=== PATIENT | female | born 1955 | race American Indian/Alaskan Native ===

== ENCOUNTER 2017-03-16 12:36 | Inpatient (IN) | payer MEDICARE ==
[2017-03-16 13:23] LABS: Eosinophils % (Auto) 13.9 % (0.0-4.3); Hematocrit 35.2 % (30.3-42.9); Hemoglobin 10.9 gm/dl (10.1-14.3); Mean Corpuscular HGB Conc 31 % (30-34); Mean Corpuscular Hemoglobin 29 pg (28-32); Mean Corpuscular Volume 92 fl (79-97); Platelet Count 598 K/mm3 (140-440); Red Blood Count 3.83 M/mm3 (3.65-5.03); Red Cell Distribution Width 15.5 % (13.2-15.2); White Blood Count 15.1 K/mm3 (4.5-11.0)
[2017-03-16 13:42] LABS: Anion Gap 14 mmol/L; Blood Urea Nitrogen 8 mg/dL (7-17); Calcium 8.9 mg/dL (8.4-10.2); Carbon Dioxide 34 mmol/L (22-30); Chloride 92.8 mmol/L (98-107); Glucose 154 mg/dL (65-100); Potassium 3.8 mmol/L (3.6-5.0); Sodium 137 mmol/L (137-145)
[2017-03-16 15:20] LABS: ISTAT Base Excess 13; ISTAT HCO3 38.9; ISTAT PCO2 78.3 (35-45); ISTAT PH 7.305 (7.35-7.45); ISTAT PO2 115 (80-105); ISTAT SO2 98; ISTAT TCO2 41
[2017-03-16] MEDS ORDERED: TYLENOL PO PRN ×3 (15:55→15:58)
[2017-03-16] MEDS ORDERED: DULCOLAX PR PRN ×2 (15:56→15:58)
[2017-03-16] MEDS ORDERED: ZOFRAN IV PRN ×2 (15:56→15:58)
[2017-03-16] MEDS ORDERED: MILK OF MAGNESIA PO PRN ×2 (15:56→15:58)
--- NOTE | 2017-03-16 15:56 | History and Physical Report ---
History of Present Illness Date of examination: 03/16/17 Date of admission: 03/16/17 Chief complaint: CC Increasing SOB for 1 day History of present illness: 61 y/o female with hx of end stage Lung disease comes in for increasing SOB of 1 day duration.Cough productive of mucoid sputum. No fever or Chills.No recent travel.No exacerbating factors.Not responding to Home nebulizer treatments. Past History Past Medical History: COPD, GERD, hypertension Past Surgical History: Other Social history: lives with family, smoking Family history: hypertension Medications and Allergies Allergies Allergy/AdvReac Type Severity Reaction Status Date / Time No Known Allergies Allergy Verified 05/23/15 12:02 Home Medications Medication Instructions Recorded Confirmed Last Taken Type Acetaminophen [Acetaminophen TAB] 650 mg PO Q4H PRN #30 tablet 12/24/1603/14/17 08:00 Rx Famotidine [Pepcid] 20 mg PO BID #60 tablet 12/24/16 03/16/17 03/16/17 08:00 Rx Hydrochlorothiazide [HCTZ] 12.5 mg PO QDAY #30 tablet 12/24/16 03/16/17 08:00 Rx Ipratropium/Albuterol Sulfate 1 ampul IH TIDRT #30 ampul.neb 12/24/16 03/16/17 03/16/17 08:00 Rx [DUONEB *Not for PRN Use*] Levofloxacin [Levaquin TAB] 750 mg PO Q24HR #2 day 12/24/16 03/16/17 03/16/17 08 :00 Rx Lisinopril [Zestril] 40 mg PO QDAY #30 12/24/16 03/16/17 03/16/17 08:00 Rx predniSONE [Deltasone] 1 dose PO QDAY #1 mo 12/24/16 03/16/17 03/16/17 08:00 Rx Review of Systems All systems: negative Constitutional: no weight loss, no weight gain, no fever, no chills Ears, nose, mouth and throat: no ear pain, no ear discharge, no tinnitis, no decreased hearing, no swelling in mouth, no swelling in throat Breasts: deferred Cardiovascular: shortness of breath, no chest pain, no orthopnea, no palpitations, no rapid/irregular heart beat, no edema, no syncope, no lightheadedness Respiratory: cough, cough with sputum, excessive sputum, shortness of breath, dyspnea on exertion, congestion, wheezing Gastrointestinal: no abdominal pain, no nausea, no vomiting, no diarrhea Genitourinary Female: no dysuria, no urinary frequency, no urgency, no stress incontinence Menstruation: ammenorrhea Rectal: no pain Musculoskeletal: no neck stiffness, no neck pain, no shooting arm pain, no arm numbness/tingling Integumentary: no rash, no pruritis, no redness, no sores, no wounds, no jaundice, no boils, no blisters Neurological: no head injury, no transient paralysis, no paralysis, no weakness , no parathesias, no seizures, no syncope Psychiatric: no anxiety, no memory loss, no change in sleep habits, no sleep disturbances Endocrine: no cold intolerance, no heat intolerance, no polyphagia, no excessive thirst, no polydipsia, no polyuria, no nocturia Hematologic/Lymphatic: no easy bruising, no easy bleeding Allergic/Immunologic: no urticaria, no allergic rhinitis, no wheezing Exam - Physical Exam Narrative exam: On Bipap and in severe distress - Constitutional Vitals: Temp Pulse Resp BP Pulse Ox 98.1 F 89 25 H 121/60 95 03/16/17 12:45 03/16/17 15:43 03/16/17 15:43 03/16/17 15:43 03/16/17 15:43 General appearance: Present: severe distress - Respiratory Respiratory: bilateral: diminished, rhonchi - Cardiovascular Heart rate: 100 Rhythm: regular - Extremities Extremities: no ischemia, pulses intact Peripheral Pulses: within normal limits - Abdominal General gastrointestinal: Present: soft, non-tender, non-distended Female genitourinary: Present: deferred - Rectal Rectal Exam: deferred - Integumentary Integumentary: Present: clear, warm, dry - Musculoskeletal Musculoskeletal: gait normal, strength equal bilaterally - Psychiatric Psychiatric: appropriate mood/affect, intact judgment & insight, memory intact, cooperative - Neurologic Neurologic: CNII-XII intact, moves all extremities, gait normal - Allied Health Allied health notes reviewed: nursing, case management Results - Labs CBC & Chem 7: 03/17/17 06:44 03/16/17 13:05 Labs: Laboratory Last Values WBC 15.1 K/mm3 (4.5-11.0) H 03/16/17 13:05 RBC 3.83 M/mm3 (3.65-5.03) 03/16/17 13:05 Hgb 10.9 gm/dl (10.1-14.3) 03/16/17 13:05 Hct 35.2 % (30.3-42.9) 03/16/17 13:05 MCV 92 fl (79-97) 03/16/17 13:05 MCH 29 pg (28-32) 03/16/17 13:05 MCHC 31 % (30-34) 03/16/17 13:05 RDW 15.5 % (13.2-15.2) H 03/16/17 13:05 Plt Count 598 K/mm3 (140-440) H 03/16/17 13:05 Lymph % (Auto) 12.1 % (13.4-35.0) L 03/16/17 13:05 [place] % (Auto) 5.6 % (0.0-7.3) 03/16/17 13:05 Eos % (Auto) 13.9 % (0.0-4.3) H 03/16/17 13:05 Baso % (Auto) 1.0 % (0.0-1.8) 03/16/17 13:05 Lymph # 1.8 K/mm3 (1.2-5.4) 03/16/17 13:05 [place] # 0.8 K/mm3 (0.0-0.8) 03/16/17 13:05 Eos # 2.1 K/mm3 (0.0-0.4) H 03/16/17 13:05 Baso # 0.2 K/mm3 (0.0-0.1) H 03/16/17 13:05 Seg Neutrophils % 67.4 % (40.0-70.0) 03/16/17 13:05 Seg Neutrophils # 10.1 K/mm3 (1.8-7.7) H 03/16/17 13:05 POC ABG pH 7.305 (7.35-7.45) L 03/16/17 15:06 POC ABG pCO2 78.3 (35-45) H 03/16/17 15:06 POC ABG pO2 115 (80-105) H 03/16/17 15:06 POC ABG HCO3 38.9 03/16/17 15:06 POC ABG Total CO2 41 03/16/17 15:06 POC ABG O2 Sat 98 03/16/17 15:06 POC ABG Base Excess 13 03/16/17 15:06 FiO2 2 % 03/16/17 15:06 Sodium 137 mmol/L (137-145) 03/16/17 13:05 Potassium 3.8 mmol/L (3.6-5.0) 03/16/17 13:05 Chloride 92.8 mmol/L (98-107) L 03/16/17 13:05 Carbon Dioxide 34 mmol/L (22-30) H 03/16/17 13:05 Anion Gap 14 mmol/L 03/16/17 13:05 BUN 8 mg/dL (7-17) 03/16/17 13:05 Creatinine 0.5 mg/dL (0.7-1.2) L 03/16/17 13:05 Estimated GFR > 60 ml/min 03/16/17 13:05 BUN/Creatinine Ratio 16.00 % 03/16/17 13:05 Glucose 154 mg/dL (65-100) H 03/16/17 13:05 Calcium 8.9 mg/dL (8.4-10.2) 03/16/17 13:05 Troponin T < 0.010 ng/mL (0.00-0.029) 03/16/17 13:05 Short CBC 03/16/17 03/17/17 Range/Units 13:05 06:44 WBC 15.1 H 11.0 (4.5-11.0) K/mm3 Hgb 10.9 11.8 (10.1-14.3) gm/dl Hct 35.2 36.5 (30.3-42.9) % Plt Count 598 H 428 (140-440) K/mm3 BMP 03/16/17 13:05 Sodium 137 Potassium 3.8 Chloride 92.8 L Carbon Dioxide 34 H BUN 8 Creatinine 0.5 L Glucose 154 H Calcium 8.9 Cardiac Enzymes 03/16/17 Range/Units 13:05 Troponin T < 0.010 (0.00-0.029) ng/mL - Imaging and Cardiology EKG: report reviewed Chest x-ray: report reviewed Assessment and Plan Assessment and plan: The high probability of a clinically significant, sudden or life threatening deterioration of the [hematology, respiratory] system(s) required my full and direct attention, intervention and personal management. The aggregate critical care time was [35] minutes. This time is in addition to time spent performing reported procedures but includes the following: [x] Data Review and interpretation [x] Patient assessment and monitoring of vital signs [x] Documentation [x] Medication orders and management Advance Directives: Yes (Full code) VTE prophylaxis?: Chemical Plan of care discussed with patient/family: Yes - Patient Problems (1) Acute hypercapnic respiratory failure Current Visit: Yes Status: Acute Plan to address problem: patient on Bipap and if necessary to intubate. IV steroids abx and Duonebs ordered. Prognosis guarded.Patient has ESLD. (2) COPD exacerbation Current Visit: No Status: Acute Plan to address problem: As Above (3) Hypertension Current Visit: Yes Status: Chronic Qualifiers: Hypertension type: essential hypertension Qualified Code(s): I10 - Essential (primary) hypertension Plan to address problem: Cont lisinopril (4) GERD (gastroesophageal reflux disease) Current Visit: Yes Status: Chronic Qualifiers: Esophagitis presence: without esophagitis Qualified Code(s): K21.9 - Gastro -esophageal reflux disease without esophagitis Plan to address problem: Cont PPI's (5) DVT prophylaxis Current Visit: Yes Status: Acute Plan to address problem: On Lovenox
[2017-03-16] MEDS ORDERED: PERCOCET 5/325 PO PRN (15:58)
[2017-03-16] MEDS ORDERED: DUONEB *Not for PRN Use IH (16:00)
[2017-03-16] MEDS ORDERED: PROVENTIL IH PRN (16:06)
[2017-03-16] MEDS: DUONEB *Not for PRN Use IH SCH ×2 (17:16→19:18)
[2017-03-16] MEDS ORDERED: ZOSYN/NS 4.5GM/100ML 4.5 GM/100 ML VIAL IV ONE (18:28)
[2017-03-16] MEDS: ZESTRIL PO SCH (18:29)
[2017-03-16] MEDS: ZOSYN/NS 4.5GM/100ML 4.5 GM/100 ML VIAL IV SCH ×2 (18:30→22:26)
--- NOTE | 2017-03-16 19:00 | Emergency Department Report ---
ED Shortness of Breath HPI - General Chief Complaint: Dyspnea/Respdistress Stated Complaint: RESP DISTRESS Time Seen by Provider: 03/16/17 13:38 Source: patient Mode of arrival: Stretcher Limitations: No Limitations - History of Present Illness Initial Comments: This patient was appropriately treated with nebs and placed on BiPAP while I was occupied with another patient. When I entered the room the patient was in no distress tolerating BiPAP well. She is able to tell me that she has been on BiPAP here during her hospitalization for 2 days in November. She has a history of end-stage COPD. She denied chest pain. 3 was somewhat limited but she had no other complaints. She is on home O2 and nebs treatments. MD Complaint: shortness of breath -: hour(s) Known History Of: COPD Context: other (end-stage COPD) Associated Symptoms: denies other symptoms - Related Data Previous Rx's Medication Instructions Recorded Last Taken Type Acetaminophen [Acetaminophen TAB] 650 mg PO Q4H PRN #30 tablet 12/24/16 Unknown Rx Famotidine [Pepcid] 20 mg PO BID #60 tablet 12/24/16 Unknown Rx Hydrochlorothiazide [HCTZ] 12.5 mg PO QDAY #30 tablet 12/24/16 Unknown Rx Ipratropium/Albuterol Sulfate 1 ampul IH TIDRT #30 ampul.neb 12/24/16 Unknown Rx [DUONEB *Not for PRN Use*] Levofloxacin [Levaquin TAB] 750 mg PO Q24HR #2 day 12/24/16 Unknown Rx Lisinopril [Zestril] 40 mg PO QDAY #30 12/24/16 Unknown Rx predniSONE [Deltasone] 1 dose PO QDAY #1 mo 12/24/16 Unknown Rx Allergies Allergy/AdvReac Type Severity Reaction Status Date / Time No Known Allergies Allergy Verified 05/23/15 12:02 ED Review of Systems ROS: Stated complaint: RESP DISTRESS Other details as noted in HPI Comment: All other systems reviewed and negative ED Past Medical Hx - Past Medical History Previous Medical History?: Yes Hx Hypertension: Yes Hx Congestive Heart Failure: No Hx Diabetes: No Hx Arthritis: Yes Hx Asthma: Yes Hx COPD: Yes Hx Tuberculosis: Yes Hx HIV: No Additional medical history: HIGH CHOLESTEROL. Home O2 - Surgical History Past Surgical History?: Yes Additional Surgical History: HYSTERECTOMY - Social History Smoking Status: Former Smoker Substance Use Type: None - Medications Home Medications: Home Medications Medication Instructions Recorded Confirmed Last Taken Type Acetaminophen [Acetaminophen TAB] 650 mg PO Q4H PRN #30 tablet 12/24/16 Unknown Rx Famotidine [Pepcid] 20 mg PO BID #60 tablet 12/24/16 Unknown Rx Hydrochlorothiazide [HCTZ] 12.5 mg PO QDAY #30 tablet 12/24/16 Unknown Rx Ipratropium/Albuterol Sulfate 1 ampul IH TIDRT #30 ampul.neb 12/24/16 Unknown Rx [DUONEB *Not for PRN Use*] Levofloxacin [Levaquin TAB] 750 mg PO Q24HR #2 day 12/24/16 Unknown Rx Lisinopril [Zestril] 40 mg PO QDAY #30 12/24/16 12/19/16 Unknown Rx predniSONE [Deltasone] 1 dose PO QDAY #1 mo 12/24/16 Unknown Rx ED Physical Exam - General Limitations: Other (BiPAP in progress) General appearance: alert - Head Head exam: Present: atraumatic - Eye Eye exam: Absent: scleral icterus - ENT ENT exam: Present: mucous membranes moist - Neck Neck exam: Present: normal inspection. Absent: tenderness, meningismus - Respiratory Respiratory exam: Present: rhonchi (mild scattered) - Cardiovascular Cardiovascular Exam: Present: regular rate, normal rhythm. Absent: systolic murmur, diastolic murmur, rubs, gallop - GI/Abdominal GI/Abdominal exam: Present: soft, normal bowel sounds. Absent: distended, tenderness, guarding, rebound, rigid - Extremities Exam Extremities exam: Present: normal inspection - Back Exam Back exam: Present: normal inspection - Neurological Exam Neurological exam: Present: alert, oriented X3. Absent: CN II-XII intact, motor sensory deficit - Psychiatric Psychiatric exam: Present: normal affect, normal mood - Skin Skin exam: Present: warm, dry, intact, normal color. Absent: rash ED Course Vital Signs 03/16/17 03/16/17 03/16/17 12:45 12:51 13:00 Temperature 98.1 F Pulse Rate 98 H 98 H 90 Pulse Rate [ Anterior Bilateral Throughout] Respiratory 21 16 18 Rate Respiratory Rate [Anterior Bilateral Throughout] Blood Pressure 136/73 138/60 O2 Sat by Pulse 97 93 Oximetry 03/16/17 03/16/17 03/16/17 13:15 13:20 13:24 Temperature Pulse Rate 85 87 86 Pulse Rate [ Anterior Bilateral Throughout] Respiratory 22 26 H Rate Respiratory Rate [Anterior Bilateral Throughout] Blood Pressure 138/60 138/60 O2 Sat by Pulse 98 94 Oximetry 03/16/17 03/16/17 03/16/17 13:31 13:45 14:01 Temperature Pulse Rate 94 H 93 H 89 Pulse Rate [ Anterior Bilateral Throughout] Respiratory 16 15 16 Rate Respiratory Rate [Anterior Bilateral Throughout] Blood Pressure 138/60 138/60 118/59 O2 Sat by Pulse 95 92 89 Oximetry 03/16/17 03/16/17 03/16/17 14:15 14:31 14:45 Temperature Pulse Rate 88 91 H 77 Pulse Rate [ Anterior Bilateral Throughout] Respiratory 20 20 25 H Rate Respiratory Rate [Anterior Bilateral Throughout] Blood Pressure 118/59 118/59 118/59 O2 Sat by Pulse 95 99 99 Oximetry 03/16/17 03/16/17 03/16/17 15:00 15:15 15:31 Temperature Pulse Rate 89 83 86 Pulse Rate [ Anterior Bilateral Throughout] Respiratory 25 H 27 H 22 Rate Respiratory Rate [Anterior Bilateral Throughout] Blood Pressure 121/60 121/60 121/60 O2 Sat by Pulse 95 99 94 Oximetry 03/16/17 03/16/17 03/16/17 15:43 17:13 17:37 Temperature Pulse Rate 89 91 H Pulse Rate [ 93 H 93 H Anterior Bilateral Throughout] Respiratory 25 H 24 Rate Respiratory 24 24 Rate [Anterior Bilateral Throughout] Blood Pressure 121/60 134/82 O2 Sat by Pulse 95 90 Oximetry 03/16/17 18:29 Temperature Pulse Rate 98 H Pulse Rate [ Anterior Bilateral Throughout] Respiratory Rate Respiratory Rate [Anterior Bilateral Throughout] Blood Pressure 134/67 O2 Sat by Pulse Oximetry - Reevaluation(s) Reevaluation #1: Patient appeared quite comfortable on BiPAP. She was placed on 2 L and a blood gas was obtained to determine her degree of hypercapnea. She was substantially hypercapnic and replaced on BiPAP shortly thereafter. This was well tolerated. She is admitted to the intensive care unit by of the hospitalist service for further care and evaluation. 03/16/17 18:58 Reevaluation #2: Patient doing well and admitted to the ICU pending transfer. 03/16/17 19:02 ED Medical Decision Making - Lab Data Result diagrams: 03/16/17 13:05 03/16/17 13:05 Laboratory Results - last 24 hr 03/16/17 03/16/17 03/16/17 13:05 13:05 15:06 WBC 15.1 H RBC 3.83 Hgb 10.9 Hct 35.2 MCV 92 MCH 29 MCHC 31 RDW 15.5 H Plt Count 598 H Lymph % (Auto) 12.1 L [place] % (Auto) 5.6 Eos % (Auto) 13.9 H Baso % (Auto) 1.0 Lymph # 1.8 [place] # 0.8 Eos # 2.1 H Baso # 0.2 H Seg Neutrophils % 67.4 Seg Neutrophils # 10.1 H POC ABG pH 7.305 L POC ABG pCO2 78.3 H POC ABG pO2 115 H POC ABG HCO3 38.9 POC ABG Total CO2 41 POC ABG O2 Sat 98 POC ABG Base Excess 13 FiO2 2 Sodium 137 Potassium 3.8 Chloride 92.8 L Carbon Dioxide 34 H Anion Gap 14 BUN 8 Creatinine 0.5 L Estimated GFR > 60 BUN/Creatinine Ratio 16.00 Glucose 154 H Calcium 8.9 Troponin T < 0.010 - EKG Data -: EKG Interpreted by Me EKG shows normal: sinus rhythm, axis, intervals, QRS complexes, ST-T waves Rate: normal - EKG Data Interpretation: LVH (by voltage criteria) - Radiology Data interpreted by me: Hyperinflation COPD no acute findings Critical Care Time: Yes Critical care time in (mins) excluding proc time.: 40 Critical care attestation.: If time is entered above; I have spent that time in minutes in the direct care of this critically ill patient, excluding procedure time. ED Disposition Clinical Impression: Acute hypercapnic respiratory failure, End stage COPD Disposition: OP ADMIT IP TO THIS HOSP Is pt being admited?: Yes Does the pt Need Aspirin: Yes Time of Disposition: 19:02
[2017-03-16] MEDS ORDERED: PEPCID PO SCH (22:00)
[2017-03-16] MEDS: BABY ASPIRIN PO SCH (22:25)
[2017-03-17] MEDS: ZOSYN/NS 4.5GM/100ML 4.5 GM/100 ML VIAL IV SCH ×2 (06:29→13:14)
[2017-03-17 07:11] LABS: Hematocrit 36.5 % (30.3-42.9); Hemoglobin 11.8 gm/dl (10.1-14.3); Mean Corpuscular HGB Conc 32 % (30-34); Mean Corpuscular Hemoglobin 29 pg (28-32); Mean Corpuscular Volume 90 fl (79-97); Red Blood Count 4.05 M/mm3 (3.65-5.03); Red Cell Distribution Width 15.4 % (13.2-15.2)
[2017-03-17 07:19] LABS: Platelet Count 428 K/mm3 (140-440)
[2017-03-17] MEDS: DUONEB *Not for PRN Use IH SCH ×6 (07:59→21:59)
--- NOTE | 2017-03-17 08:14 | XRay Report ---
PORTABLE CHEST INDICATION: Shortness of breath. COMPARISON: 12/21/2016 FINDINGS: Portable, frontal chest radiograph demonstrates new bibasilar haziness/pleural fluid, right more than left. Otherwise stable somewhat hyperexpanded lungs/COPD. Stable cardiomediastinal silhouette. Pulmonary arterial hypertension possible. Aortic knob calcifications. No CHF. EKG leads. Intact bones. CONCLUSION: New small bibasilar pleural effusions and various other findings, as above. Please correlate. Thank you for the opportunity to participate in this patient's care.
[2017-03-17 08:38] LABS: Alanine Aminotransferase 8 units/L (7-56); Albumin 3.8 g/dL (3.9-5); Albumin/Globulin Ratio 1.3 %; Alkaline Phosphatase 41 units/L (35-129); Anion Gap 20 mmol/L; Blood Urea Nitrogen 12 mg/dL (7-17); Calcium 9.4 mg/dL (8.4-10.2); Carbon Dioxide 29 mmol/L (22-30); Chloride 94.6 mmol/L (98-107); Glucose 120 mg/dL (65-100); Potassium 5.6 mmol/L (3.6-5.0); Sodium 138 mmol/L (137-145); Total Protein 6.7 g/dL (6.3-8.2)
[2017-03-17 08:44] LABS: Blastocytes % (Manual) 0 %; Total Cells Counted Percent 0
[2017-03-17 08:45] LABS: Diff Status Complete; Large Platelets Few; RBC Morphology Normal
[2017-03-17] MEDS: ZESTRIL PO SCH (09:18)
[2017-03-17] MEDS: BABY ASPIRIN PO SCH (09:20)
[2017-03-17] MEDS: HCTZ PO SCH (09:20)
[2017-03-17] MEDS: PROTONIX PO SCH (09:20)
--- NOTE | 2017-03-17 09:38 | Progress Note ---
Assessment and Plan Acute hypercapnic respiratory failure Likely from underlying COPD exacerbation patient is off Bipap now. on 2l n/c IV steroids abx and Duonebs ordered. COPD exacerbation - We'll transfer patient to remote tele - Will provide scheduled nebulizers and breathing treatment - Place on empiric steroid and antibiotic - will get sputum culture, chest x-ray showed bilateral small pleural effusion - Provide supplemental oxygen to keep oxygen saturation above 92% - Consult pulmonary, add mucinex for cough - We'll place on sliding scale of insulin as patient will be on empiric steroid Hypertension Cont lisinopril GERD (gastroesophageal reflux disease) Cont PPI's DVT prophylaxis On Lovenox Brief history: 61 y/o female with hx of end stage Lung disease came in for increasing SOB of 1 day duration with Cough productive of mucoid sputum. her symptom was Not responding to Home nebulizer treatments. Radiological data: Chest x-ray is 05/16/2017 showed new small bibasilar pleural effusion. Current meds: Generic Name Dose Route Start Last Admin Trade Name Freq PRN Reason Stop Dose Admin Acetaminophen 650 mg 03/16/17 15:55 Tylenol PO Q4H PRN Pain, Mild (1-3) Albuterol 2.5 mg 03/16/17 16:06 Proventil IH Q3HRT PRN Shortness Of Breath Albuterol/Ipratropium 1 ampul 03/16/17 16:00 03/17/17 08:02 Duoneb *Not For Prn Use* IH 1 ampul Q6HRT DUNG Administration Aspirin 81 mg 03/16/17 20:00 03/17/17 09:20 Baby Aspirin PO 81 mg QDAY DUNG Administration Bisacodyl 10 mg 03/16/17 15:56 Dulcolax NV QDAY PRN Constipation unrelieved by MOM Enoxaparin Sodium 40 mg 03/17/17 22:00 Lovenox SUB-Q QDAY@2200 DUNG Hydrochlorothiazide 12.5 mg 03/17/17 10:00 03/17/17 09:20 Hctz PO Not Given QDAY DUNG Piperacillin Sod/Tazobactam Sod 4.5 gm in 100 mls @ 200 mls/hr 03/16/17 17:00 03/17/17 06:29 Zosyn/Ns 4.5gm/100ml IV 200 mls/hr Q8HR DUNG Administration Protocol Lisinopril 40 mg 03/16/17 17:00 03/17/17 09:18 Zestril PO Not Given QDAY DUNG Magnesium Hydroxide 30 ml 03/16/17 15:56 Milk Of Magnesia PO Q4H PRN Constipation Methylprednisolone Sodium Succinate 125 mg 03/16/17 17:00 03/17/17 06:13 Solu-Medrol IV 125 mg Q8HR DUNG Administration Ondansetron HCl 4 mg 03/16/17 15:56 Zofran IV Q8H PRN N/V unrelieved by Reglan Oxycodone/Acetaminophen 1 tab 03/16/17 15:58 Percocet 5/325 PO Q6H PRN Pain, Moderate (4-6) Pantoprazole Sodium 40 mg 03/17/17 10:00 03/17/17 09:20 Protonix PO 40 mg QDAY DUNG Administration Subjective Date of service: 03/17/17 Interval history: Patient seen and examined. Medical records and medication list reviewed. No acute event overnight noted by the RN. Patient currently off BiPAP. Objective - Exam Narrative Exam: GENERAL: well-developed and well-nourished AAF lying on bed appeared to be in no discomfort. HEENT: Normocephalic. Atraumatic. No conjunctival congestion or icterus. Patient has moist mucous membranes. NECK: Supple. Trachea midline. CHEST/LUNGS: diminished BS auscultated bilaterally, breathing nonlabored. No wheezes crackles or rhonchi. HEART/CARDIOVASCULAR: Regular in rate and rhythm. S1 and S2 positive. ABDOMEN: Abdomen is soft, nontender. Patient has normal bowel sounds. SKIN: There is no rash. Warm and dry. NEURO: No focal motor deficit. Follows command. MUSCULOSKELETAL: No joint effusion or tenderness. EXTRIMITY: No edema, no cyanosis or clubbing. PSYCH: Cooperative. - Constitutional Vitals: Vital Signs - 12hr 03/16/17 03/16/17 03/16/17 21:41 21:51 22:00 Temperature Pulse Rate 94 H 94 H 85 Pulse Rate [ Posterior Right Throughout] Respiratory 17 18 15 Rate Respiratory Rate [Posterior Right Throughout] Blood Pressure 112/56 112/56 104/56 O2 Sat by Pulse 100 100 100 Oximetry 03/16/17 03/16/17 03/16/17 22:11 22:21 22:31 Temperature Pulse Rate 84 83 88 Pulse Rate [ Posterior Right Throughout] Respiratory 16 21 23 Rate Respiratory Rate [Posterior Right Throughout] Blood Pressure 104/56 104/56 104/56 O2 Sat by Pulse 100 100 100 Oximetry 03/16/17 03/16/17 03/16/17 22:41 22:51 23:00 Temperature Pulse Rate 108 H 99 H 91 H Pulse Rate [ Posterior Right Throughout] Respiratory 17 16 16 Rate Respiratory Rate [Posterior Right Throughout] Blood Pressure 104/56 104/56 114/48 O2 Sat by Pulse 100 100 100 Oximetry 03/16/17 03/16/17 03/16/17 23:11 23:21 23:23 Temperature Pulse Rate 79 74 75 Pulse Rate [ Posterior Right Throughout] Respiratory 21 22 24 Rate Respiratory Rate [Posterior Right Throughout] Blood Pressure 114/48 114/48 114/48 O2 Sat by Pulse 100 100 100 Oximetry 03/16/17 03/16/17 03/16/17 23:31 23:41 23:47 Temperature Pulse Rate 74 78 Pulse Rate [ Posterior Right Throughout] Respiratory 23 21 Rate Respiratory Rate [Posterior Right Throughout] Blood Pressure 114/48 114/48 O2 Sat by Pulse 100 100 100 Oximetry 03/16/17 03/16/17 03/17/17 23:51 23:59 00:00 Temperature 98.7 F Pulse Rate 74 71 Pulse Rate [ Posterior Right Throughout] Respiratory 20 22 Rate Respiratory Rate [Posterior Right Throughout] Blood Pressure 114/48 88/32 O2 Sat by Pulse 100 100 Oximetry 03/17/17 03/17/17 03/17/17 00:11 00:21 00:31 Temperature Pulse Rate 88 87 91 H Pulse Rate [ Posterior Right Throughout] Respiratory 19 16 19 Rate Respiratory Rate [Posterior Right Throughout] Blood Pressure 88/32 88/32 88/32 O2 Sat by Pulse 100 100 100 Oximetry 03/17/17 03/17/17 03/17/17 00:41 00:51 01:00 Temperature Pulse Rate 93 H 82 70 Pulse Rate [ Posterior Right Throughout] Respiratory 16 18 20 Rate Respiratory Rate [Posterior Right Throughout] Blood Pressure 88/32 88/32 107/37 O2 Sat by Pulse 100 100 100 Oximetry 03/17/17 03/17/17 03/17/17 01:11 01:21 01:31 Temperature Pulse Rate 69 69 69 Pulse Rate [ Posterior Right Throughout] Respiratory 19 20 20 Rate Respiratory Rate [Posterior Right Throughout] Blood Pressure 107/37 107/37 88/32 O2 Sat by Pulse 100 100 100 Oximetry 03/17/17 03/17/17 03/17/17 01:41 01:51 02:00 Temperature Pulse Rate 94 H 87 66 Pulse Rate [ Posterior Right Throughout] Respiratory 20 20 20 Rate Respiratory Rate [Posterior Right Throughout] Blood Pressure 88/32 88/32 107/37 O2 Sat by Pulse 100 100 100 Oximetry 03/17/17 03/17/17 03/17/17 02:11 02:21 02:31 Temperature Pulse Rate 66 91 H 65 Pulse Rate [ Posterior Right Throughout] Respiratory 17 12 19 Rate Respiratory Rate [Posterior Right Throughout] Blood Pressure 94/35 94/35 94/35 O2 Sat by Pulse 100 100 100 Oximetry 03/17/17 03/17/17 03/17/17 02:41 02:51 03:00 Temperature Pulse Rate 64 68 67 Pulse Rate [ Posterior Right Throughout] Respiratory 19 19 19 Rate Respiratory Rate [Posterior Right Throughout] Blood Pressure 94/35 94/35 105/41 O2 Sat by Pulse 100 100 100 Oximetry 03/17/17 03/17/17 03/17/17 03:11 03:21 03:31 Temperature Pulse Rate 66 65 63 Pulse Rate [ Posterior Right Throughout] Respiratory 19 21 20 Rate Respiratory Rate [Posterior Right Throughout] Blood Pressure 105/41 105/41 105/41 O2 Sat by Pulse 100 100 100 Oximetry 03/17/17 03/17/17 03/17/17 03:41 03:51 04:00 Temperature 98.1 F Pulse Rate 83 76 73 Pulse Rate [ Posterior Right Throughout] Respiratory 19 17 24 Rate Respiratory Rate [Posterior Right Throughout] Blood Pressure 105/41 105/41 105/41 O2 Sat by Pulse 100 100 100 Oximetry 03/17/17 03/17/17 03/17/17 04:11 04:21 04:31 Temperature Pulse Rate 72 76 74 Pulse Rate [ Posterior Right Throughout] Respiratory 19 20 19 Rate Respiratory Rate [Posterior Right Throughout] Blood Pressure 124/67 124/67 124/67 O2 Sat by Pulse 100 100 100 Oximetry 03/17/17 03/17/17 03/17/17 04:41 04:51 05:00 Temperature Pulse Rate 79 71 70 Pulse Rate [ Posterior Right Throughout] Respiratory 21 20 20 Rate Respiratory Rate [Posterior Right Throughout] Blood Pressure 124/67 124/67 114/51 O2 Sat by Pulse 100 100 100 Oximetry 03/17/17 03/17/17 03/17/17 05:11 05:21 05:31 Temperature Pulse Rate 63 58 L 55 L Pulse Rate [ Posterior Right Throughout] Respiratory 19 21 20 Rate Respiratory Rate [Posterior Right Throughout] Blood Pressure 114/51 114/51 114/51 O2 Sat by Pulse 100 100 100 Oximetry 03/17/17 03/17/17 03/17/17 05:41 05:51 06:00 Temperature Pulse Rate 90 84 72 Pulse Rate [ Posterior Right Throughout] Respiratory 13 25 H 20 Rate Respiratory Rate [Posterior Right Throughout] Blood Pressure 114/51 114/51 114/51 O2 Sat by Pulse 100 100 99 Oximetry 03/17/17 03/17/17 03/17/17 06:11 06:21 06:31 Temperature Pulse Rate 82 77 80 Pulse Rate [ Posterior Right Throughout] Respiratory 15 19 15 Rate Respiratory Rate [Posterior Right Throughout] Blood Pressure 123/72 123/72 123/72 O2 Sat by Pulse 100 100 100 Oximetry 03/17/17 03/17/17 03/17/17 06:40 06:51 07:00 Temperature Pulse Rate 71 69 71 Pulse Rate [ Posterior Right Throughout] Respiratory 14 10 L 18 Rate Respiratory Rate [Posterior Right Throughout] Blood Pressure 123/72 123/72 123/72 O2 Sat by Pulse 100 100 100 Oximetry 03/17/17 03/17/17 03/17/17 07:11 07:21 07:31 Temperature Pulse Rate 69 72 77 Pulse Rate [ Posterior Right Throughout] Respiratory 13 22 19 Rate Respiratory Rate [Posterior Right Throughout] Blood Pressure 123/72 123/72 123/72 O2 Sat by Pulse 100 100 100 Oximetry 03/17/17 03/17/17 03/17/17 07:41 07:51 07:55 Temperature Pulse Rate 70 63 Pulse Rate [ Posterior Right Throughout] Respiratory 18 20 18 Rate Respiratory Rate [Posterior Right Throughout] Blood Pressure 123/72 123/72 O2 Sat by Pulse 100 100 100 Oximetry 03/17/17 03/17/17 03/17/17 08:00 08:01 08:02 Temperature 98.2 F Pulse Rate 87 Pulse Rate [ 99 H 94 H Posterior Right Throughout] Respiratory 20 Rate Respiratory 24 25 H Rate [Posterior Right Throughout] Blood Pressure 125/54 O2 Sat by Pulse 100 Oximetry 03/17/17 03/17/17 03/17/17 08:11 08:21 08:31 Temperature Pulse Rate 88 88 90 Pulse Rate [ Posterior Right Throughout] Respiratory 21 12 17 Rate Respiratory Rate [Posterior Right Throughout] Blood Pressure 125/54 125/54 125/54 O2 Sat by Pulse 100 100 100 Oximetry 03/17/17 03/17/17 03/17/17 08:41 08:51 09:00 Temperature Pulse Rate 87 81 83 Pulse Rate [ Posterior Right Throughout] Respiratory 15 18 13 Rate Respiratory Rate [Posterior Right Throughout] Blood Pressure 125/54 125/54 109/49 O2 Sat by Pulse 98 100 100 Oximetry 03/17/17 03/17/17 09:11 09:18 Temperature Pulse Rate 83 91 H Pulse Rate [ Posterior Right Throughout] Respiratory 12 Rate Respiratory Rate [Posterior Right Throughout] Blood Pressure 109/49 109/49 O2 Sat by Pulse 100 Oximetry - Labs CBC & Chem 7: 03/17/17 06:44 03/17/17 06:44 Labs: Abnormal lab results 03/17/17 03/17/17 Range/Units 06:44 06:44 RDW 15.4 H (13.2-15.2) % Lymphocytes % (Manual) 2.0 L (13.4-35.0) % Seg Neutrophils # Man 10.8 H (1.8-7.7) K/mm3 Lymphocytes # (Manual) 0.2 L (1.2-5.4) K/mm3 Potassium 5.6 H D (3.6-5.0) mmol/L Chloride 94.6 L (98-107) mmol/L Creatinine 0.5 L (0.7-1.2) mg/dL Glucose 120 H (65-100) mg/dL Albumin 3.8 L (3.9-5) g/dL
--- NOTE | 2017-03-17 11:06 | Consultation ---
History of Present Illness Consult date: 03/17/17 Requesting physician: BRYAN WEISS Reason for consult: COPD, other (Acute on Chronic Hypercapnic Hypoxemic Respiratory Failure) History of present illness: PULMONARY/CCM CONSULT NOTE (Full dictation # [id number]) Please see dictated notes for full details Past History Past Medical History: COPD, GERD, hypertension Past Surgical History: Other Social history: lives with family, smoking Family history: hypertension Medications and Allergies Allergies Allergy/AdvReac Type Severity Reaction Status Date / Time No Known Allergies Allergy Verified 05/23/15 12:02 Home Medications Medication Instructions Recorded Confirmed Last Taken Type Acetaminophen [Acetaminophen TAB] 650 mg PO Q4H PRN #30 tablet 12/24/1603/14/17 08:00 Rx Famotidine [Pepcid] 20 mg PO BID #60 tablet 12/24/16 03/16/17 03/16/17 08:00 Rx Hydrochlorothiazide [HCTZ] 12.5 mg PO QDAY #30 tablet 12/24/16 03/16/17 08:00 Rx Ipratropium/Albuterol Sulfate 1 ampul IH TIDRT #30 ampul.neb 12/24/16 03/16/17 03/16/17 08:00 Rx [DUONEB *Not for PRN Use*] Levofloxacin [Levaquin TAB] 750 mg PO Q24HR #2 day 12/24/16 03/16/17 03/16/17 08 :00 Rx Lisinopril [Zestril] 40 mg PO QDAY #30 12/24/16 03/16/17 03/16/17 08:00 Rx predniSONE [Deltasone] 1 dose PO QDAY #1 mo 12/24/16 03/16/17 03/16/17 08:00 Rx Active Meds: Active Medications Acetaminophen (Tylenol) 650 mg PO Q4H PRN PRN Reason: Pain, Mild (1-3) Albuterol (Proventil) 2.5 mg IH Q3HRT PRN PRN Reason: Shortness Of Breath Albuterol/Ipratropium (Duoneb *Not For Prn Use*) 1 ampul IH Q6HRT [facility] Last Admin: 03/17/17 08:02 Dose: 1 ampul Aspirin (Baby Aspirin) 81 mg PO QDAY [facility] Last Admin: 03/17/17 09:20 Dose: 81 mg Bisacodyl (Dulcolax) 10 mg MT QDAY PRN PRN Reason: Constipation unrelieved by MOM Enoxaparin Sodium (Lovenox) 40 mg SUB-Q QDAY@2200 [facility] Hydrochlorothiazide (Hctz) 12.5 mg PO QDAY [facility] Last Admin: 03/17/17 09:20 Dose: Not Given Piperacillin Sod/Tazobactam Sod (Zosyn/Ns 4.5gm/100ml) 4.5 gm in 100 mls @ 200 mls/hr IV Q8HR [facility] PRN Reason: Protocol Last Admin: 03/17/17 06:29 Dose: 200 mls/hr Lisinopril (Zestril) 40 mg PO QDAY [facility] Last Admin: 03/17/17 09:18 Dose: Not Given Magnesium Hydroxide (Milk Of Magnesia) 30 ml PO Q4H PRN PRN Reason: Constipation Methylprednisolone Sodium Succinate (Solu-Medrol) 125 mg IV Q8HR [facility] Last Admin: 03/17/17 06:13 Dose: 125 mg Ondansetron HCl (Zofran) 4 mg IV Q8H PRN PRN Reason: N/V unrelieved by Reglan Oxycodone/Acetaminophen (Percocet 5/325) 1 tab PO Q6H PRN PRN Reason: Pain, Moderate (4-6) Pantoprazole Sodium (Protonix) 40 mg PO QDAY [facility] Last Admin: 03/17/17 09:20 Dose: 40 mg Physical Examination Vital signs: Vital Signs Temp Pulse Resp BP Pulse Ox 98.1 F 98 H 21 136/73 97 03/16/17 12:45 03/16/17 12:45 03/16/17 12:45 03/16/17 12:45 03/16/17 12:45 Results - Laboratory Findings CBC and BMP: 03/17/17 06:44 03/17/17 06:44 ABG POC ABG pH 7.305 (7.35-7.45) L 03/16/17 15:06 POC ABG pCO2 78.3 (35-45) H 03/16/17 15:06 POC ABG pO2 115 (80-105) H 03/16/17 15:06 POC ABG HCO3 38.9 03/16/17 15:06 POC ABG Total CO2 41 03/16/17 15:06 POC ABG O2 Sat 98 03/16/17 15:06 Abnormal lab findings: Abnormal Labs 03/17/17 03/17/17 06:44 06:44 RDW 15.4 H Lymphocytes % (Manual) 2.0 L Seg Neutrophils # Man 10.8 H Lymphocytes # (Manual) 0.2 L Potassium 5.6 H D Chloride 94.6 L Creatinine 0.5 L Glucose 120 H Albumin 3.8 L
[2017-03-17] MEDS ORDERED: KIONEX PO ONE (12:30)
[2017-03-17] MEDS ORDERED: DUONEB *Not for PRN Use IH SCH (14:00)
[2017-03-17] MEDS: MUCINEX ER PO SCH ×2 (15:22→21:26)
[2017-03-17] MEDS ORDERED: KIONEX PO PRN (15:37)
[2017-03-17] MEDS: LOVENOX SUB-Q SCH (21:26)
[2017-03-17] MEDS: BROVANA NEBU IH SCH (23:21)
[2017-03-18] MEDS: DUONEB *Not for PRN Use IH SCH ×6 (02:12→19:59)
[2017-03-18 05:37] LABS: Blood Urea Nitrogen 16 mg/dL (7-17); Calcium 8.7 mg/dL (8.4-10.2); Carbon Dioxide 39 mmol/L (22-30); Chloride 93.1 mmol/L (98-107); Glucose 106 mg/dL (65-100); Sodium 139 mmol/L (137-145)
[2017-03-18 06:40] LABS: Anion Gap 10 mmol/L; Potassium 3.4 mmol/L (3.6-5.0)
--- NOTE | 2017-03-18 07:31 | Consultation ---
PULMONARY CRITICAL CARE CONSULT CONSULTING PHYSICIAN: Dr. Nugent. REASON FOR CONSULTATION: [id number] hypoxemic hypercapnic respiratory failure. CHIEF COMPLAINT AND HISTORY OF PRESENT ILLNESS: The patient is a 61-year-old -[place] female known to me from past admissions. Past medical history indeed significant for home oxygen dependent COPD on 2 liters nasal cannula, former 20+ pack year tobacco smoker, came into the Emergency Room complaining of couple of days of cough, which she initially told me was nonproductive, had told the ER it was productive of mucoid sputum. She denied any gross or streaky hemoptysis. She denied any fevers or chills. She denied any sick contacts as far she knew. She denied any new onset of leg pain or swelling either unilaterally or bilaterally. When asked about compliance with her medications, she was a little bit unconvincing as it is shows actually on any treatment or using them as prescribed. She does confirm that she no longer smokes and this has been at least for about a few months she tells me. In the Emergency Room, she was placed on continuous BiPAP hence the need for Intensive Care Unit admission. However, on getting in to the Intensive Care Unit, she improved. She is now on 3 liters nasal cannula and feeling better. That really is as much of the history of presentation as I have. PAST MEDICAL HISTORY: COPD, gastroesophageal reflux disease, hypertension, and tobacco use disorder. PAST SURGICAL HISTORY: Unknown. MEDICATIONS: She was on at the time I stopped by to see her, according to the medication administration record, included the following: She was on Tylenol 650 mg p.o. q. 4 hours p.r.n. mild pain, DuoNeb treatments nebulized q. 6 hours, aspirin 81 mg p.o. daily, p.r.n. Dulcolax, Lovenox 40 mg subcutaneous daily, Mucinex 600 mg p.o. b.i.d., hydrochlorothiazide 12.5 mg p.o. daily, lisinopril 40 mg p.o. daily, p.r.n. milk of magnesia, Solu-Medrol 125 mg IV q. 8 hours, Zofran 4 mg IV q. 8 hours p.r.n. nausea and formed vomiting, Percocet 5/325 mg one tablet p.o. q. 6 hours p.r.n. moderate pain, Protonix 40 mg p.o. daily, Zosyn 4.5 grams IV q. 8 hours. ALLERGIES: No known drug allergies. DIET: Thin lady. Denies significant weight loss or gain preceding few weeks to months. FAMILY AND SOCIAL HISTORY: Lives in the community. She has a 20+ pack year tobacco smoking history. Denies current alcohol, tobacco, or illicit drug use or abuse. Family history; otherwise, noncontributory. REVIEW OF SYSTEMS: No loss of consciousness. No new onset seizures. No new onset focal weakness. No gross hematochezia or melena. No gross hematuria or dysuria. No hematemesis. No hemoptysis. No palpitations. Complete 14-system review of systems obtained. Pertinent positives and/or negatives as in body of the history above; otherwise, they are noncontributory. PHYSICAL EXAMINATION: VITAL SIGNS: At presentation, she was afebrile, temperature 98.1 Fahrenheit, pulse was 98, respiratory rate 21, blood pressure 136/73, oxygen sats were 97%, inspired oxygen concentration was not recorded. HEAD, EYES, EARS, NOSE AND THROAT: Pupils are equal, round, about 3 mm, reactive to light. Extraocular muscle and movements appear intact. Grossly, there were no palpable lymph nodes in the supraclavicular or submandibular lymph node chains. Oropharynx is a Mallampati #2 oropharynx. No significant posterior oropharyngeal erythema. LUNGS: Auscultation of both lung izquierdo significant for diminished bilateral breath sounds, prolonged expiratory phase. No active wheezing. HEART: Heart sounds 1 and 2 are heard. They were regular in rate and rhythm at the time of my evaluation. ABDOMEN: Soft, full, bowel sounds are positive, nontender. EXTREMITIES: Without overt digital clubbing, cyanosis, or pedal edema. NEUROLOGIC: Grossly nonfocal. LABORATORY DATA: From my review are as follows: Admission white cell count 15,100 with a hemoglobin of 10.9, hematocrit of 35.2, platelet count of 598. No band forms. Arterial blood gas at presentation showed a pH of 7.31, pCO2 of 78, pO2 of 115, now is on 2 liters nasal cannula. Serum sodium 137, potassium 3.8, chloride 93, bicarbonate 34, BUN 8, creatinine is 0.5, and glucose was 154. Liver function test is essentially within normal limits. IMAGING: A chest x-ray was done. I have reviewed the radiologist's interpretation and I have also reviewed the chest x-ray and I do agree with it. We were able to compare it with the x-ray from 12/21, while she said I do agree with certain things. I think soft tissue/breasts shadows accentuate in the opacification of the costophrenic angle suggesting significant pleural effusions. I am not so sure that is the case. She does have the evidence of hyperinflation. No gross pneumothorax, no gross bony fracture. ASSESSMENT AND PLAN: We have an elderly lady with advanced chronic obstructive pulmonary disease in with acute chronic obstructive pulmonary disease exacerbation, relatively clear chest x-ray and it is unclear really what the etiology of this is. I have a suspicion of noncompliance. However, respiratory solorzano, she is doing better. She is off BiPAP. I will go ahead and begin tapering the systemic steroids. I will downgrade her antibiotic therapy to Levaquin monotherapy. I will get a CRP level. I will go ahead and add long acting bronchodilators in the form of Brovana as well as inhaled corticosteroids. I will get a stat D-dimer level and try to see if we can screen her out of venous thromboembolic disorder workup. She has a relatively low pretest probability, so we should be able to get by with possibly D-dimers and Dopplers at the most. She has been placed on gastrointestinal and deep venous thrombosis prophylaxis. Her serum potassium this morning is up to 5.6 and she will be getting 15 grams of Kayexalate. Flu and pneumonia vaccination will be per protocol. Thank you very much for the consult Dr. Nugent. She is doing better. We will plan to transfer her out of the Intensive Care Unit at this point. JOB# [id number] MAXIM/CHIVO
[2017-03-18] MEDS: BROVANA NEBU IH SCH ×2 (09:22→19:59)
[2017-03-18] MEDS: BABY ASPIRIN PO SCH (10:01)
[2017-03-18] MEDS: HCTZ PO SCH (10:01)
[2017-03-18] MEDS: ZESTRIL PO SCH (10:01)
[2017-03-18] MEDS: PROTONIX PO SCH (10:01)
[2017-03-18] MEDS: MUCINEX ER PO SCH ×2 (10:01→21:19)
[2017-03-18] MEDS ORDERED: Fluarix Quad 2017-2018(36 MOS+) IM ONE (16:00)
--- NOTE | 2017-03-18 19:13 | Progress Note ---
Assessment and Plan Assessment and plan: Acute hypercapnic respiratory failure Likely from underlying COPD exacerbation patient is off Bipap now. on 2l n/c IV steroids abx and Duonebs ordered. COPD exacerbation - We'll transfer patient to remote tele - Will provide scheduled nebulizers and breathing treatment - Place on empiric steroid and antibiotic - will get sputum culture, chest x-ray showed bilateral small pleural effusion - Provide supplemental oxygen to keep oxygen saturation above 92% - Consult pulmonary, add mucinex for cough - We'll place on sliding scale of insulin as patient will be on empiric steroid Hypertension Cont lisinopril GERD (gastroesophageal reflux disease) Cont PPI's DVT prophylaxis On Lovenox Brief history: 61 y/o female with hx of end stage Lung disease came in for increasing SOB of 1 day duration with Cough productive of mucoid sputum. her symptom was Not responding to Home nebulizer treatments. History Interval history: feeling better, SOB improved, still coughing (cough provoked by deep breathing) Hospitalist Physical - Constitutional Vitals: Temp Pulse Resp BP Pulse Ox 98.5 F 86 18 153/80 96 03/18/17 15:48 03/18/17 15:48 03/18/17 15:48 03/18/17 15:48 03/18/17 15:48 General appearance: Present: severe distress Results - Labs CBC & Chem 7: 03/17/17 06:44 03/18/17 04:31 Labs: Laboratory Last Values WBC 11.0 K/mm3 (4.5-11.0) 03/17/17 06:44 RBC 4.05 M/mm3 (3.65-5.03) 03/17/17 06:44 Hgb 11.8 gm/dl (10.1-14.3) 03/17/17 06:44 Hct 36.5 % (30.3-42.9) 03/17/17 06:44 MCV 90 fl (79-97) 03/17/17 06:44 MCH 29 pg (28-32) 03/17/17 06:44 MCHC 32 % (30-34) 03/17/17 06:44 RDW 15.4 % (13.2-15.2) H 03/17/17 06:44 Plt Count 428 K/mm3 (140-440) 03/17/17 06:44 Lymph % (Auto) 12.1 % (13.4-35.0) L 03/16/17 13:05 [place] % (Auto) 5.6 % (0.0-7.3) 03/16/17 13:05 Eos % (Auto) 13.9 % (0.0-4.3) H 03/16/17 13:05 Baso % (Auto) 1.0 % (0.0-1.8) 03/16/17 13:05 Lymph # 1.8 K/mm3 (1.2-5.4) 03/16/17 13:05 [place] # 0.8 K/mm3 (0.0-0.8) 03/16/17 13:05 Eos # 2.1 K/mm3 (0.0-0.4) H 03/16/17 13:05 Baso # 0.2 K/mm3 (0.0-0.1) H 03/16/17 13:05 Add Manual Diff Complete 03/17/17 06:44 Total Counted 100 03/17/17 06:44 Seg Neutrophils % Credit Resolution Representative 03/17/17 06:44 Band Neutrophils % 0 % 03/17/17 06:44 Lymphocytes % (Manual) 2.0 % (13.4-35.0) L 03/17/17 06:44 Reactive Lymphs % (Man) 0 % 03/17/17 06:44 Monocytes % (Manual) 0 % (0.0-7.3) 03/17/17 06:44 Metamyelocytes % 0 % 03/17/17 06:44 Myelocytes % 0 % 03/17/17 06:44 Promyelocytes % 0 % 03/17/17 06:44 Blast Cells % 0 % 03/17/17 06:44 Nucleated RBC % Not Reportable 03/17/17 06:44 Seg Neutrophils # 10.1 K/mm3 (1.8-7.7) H 03/16/17 13:05 Seg Neutrophils # Man 10.8 K/mm3 (1.8-7.7) H 03/17/17 06:44 Band Neutrophils # 0.0 K/mm3 03/17/17 06:44 Lymphocytes # (Manual) 0.2 K/mm3 (1.2-5.4) L 03/17/17 06:44 Abs React Lymphs (Man) 0.0 K/mm3 03/17/17 06:44 Monocytes # (Manual) 0.0 K/mm3 (0.0-0.8) 03/17/17 06:44 Eosinophils # (Manual) 0.0 K/mm3 (0.0-0.4) 03/17/17 06:44 Basophils # (Manual) 0.0 K/mm3 (0.0-0.1) 03/17/17 06:44 Metamyelocytes # 0.0 K/mm3 03/17/17 06:44 Myelocytes # 0.0 K/mm3 03/17/17 06:44 Promyelocytes # 0.0 K/mm3 03/17/17 06:44 Blast Cells # 0.0 K/mm3 03/17/17 06:44 WBC Morphology Not Reportable 03/17/17 06:44 Hypersegmented Neuts Not Reportable 03/17/17 06:44 Hyposegmented Neuts Not Reportable 03/17/17 06:44 Hypogranular Neuts Not Reportable 03/17/17 06:44 Smudge Cells Not Reportable 03/17/17 06:44 Toxic Granulation Not Reportable 03/17/17 06:44 Toxic Vacuolation Not Reportable 03/17/17 06:44 Dohle Bodies Not Reportable 03/17/17 06:44 Pelger-Huet Anomaly Not Reportable 03/17/17 06:44 Neisha Rods Not Reportable 03/17/17 06:44 Platelet Estimate Appears normal 03/17/17 06:44 Clumped Platelets Not Reportable 03/17/17 06:44 Plt Clumps, EDTA Not Reportable 03/17/17 06:44 Large Platelets Few 03/17/17 06:44 Giant Platelets Not Reportable 03/17/17 06:44 Platelet Satelliting Not Reportable 03/17/17 06:44 Plt Morphology Comment Not Reportable 03/17/17 06:44 RBC Morphology Normal 03/17/17 06:44 Dimorphic RBCs Not Reportable 03/17/17 06:44 Polychromasia Not Reportable 03/17/17 06:44 Hypochromasia Not Reportable 03/17/17 06:44 Poikilocytosis Not Reportable 03/17/17 06:44 Anisocytosis Not Reportable 03/17/17 06:44 Microcytosis Not Reportable 03/17/17 06:44 Macrocytosis Not Reportable 03/17/17 06:44 Spherocytes Not Reportable 03/17/17 06:44 Pappenheimer Bodies Not Reportable 03/17/17 06:44 Sickle Cells Not Reportable 03/17/17 06:44 Target Cells Not Reportable 03/17/17 06:44 Tear Drop Cells Not Reportable 03/17/17 06:44 Ovalocytes Not Reportable 03/17/17 06:44 Helmet Cells Not Reportable 03/17/17 06:44 [place] Bodies Not Reportable 03/17/17 06:44 [place] Rings Not Reportable 03/17/17 06:44 Damián Cells Not Reportable 03/17/17 06:44 Bite Cells Not Reportable 03/17/17 06:44 Crenated Cell Not Reportable 03/17/17 06:44 Elliptocytes Not Reportable 03/17/17 06:44 Acanthocytes (Spur) Not Reportable 03/17/17 06:44 Rouleaux Not Reportable 03/17/17 06:44 Hemoglobin C Crystals Not Reportable 03/17/17 06:44 Schistocytes Not Reportable 03/17/17 06:44 Malaria parasites Not Reportable 03/17/17 06:44 Herve Bodies Not Reportable 03/17/17 06:44 Hem Pathologist Commnt No 03/17/17 06:44 D-Dimer 165.53 ng/mlDDU (0-234) 03/17/17 13:12 POC ABG pH 7.305 (7.35-7.45) L 03/16/17 15:06 POC ABG pCO2 78.3 (35-45) H 03/16/17 15:06 POC ABG pO2 115 (80-105) H 03/16/17 15:06 POC ABG HCO3 38.9 03/16/17 15:06 POC ABG Total CO2 41 03/16/17 15:06 POC ABG O2 Sat 98 03/16/17 15:06 POC ABG Base Excess 13 03/16/17 15:06 FiO2 2 % 03/16/17 15:06 Sodium 139 mmol/L (137-145) 03/18/17 04:31 Potassium 3.4 mmol/L (3.6-5.0) L D 03/18/17 04:31 Chloride 93.1 mmol/L (98-107) L 03/18/17 04:31 Carbon Dioxide 39 mmol/L (22-30) H D 03/18/17 04:31 Anion Gap 10 mmol/L 03/18/17 04:31 BUN 16 mg/dL (7-17) 03/18/17 04:31 Creatinine 0.5 mg/dL (0.7-1.2) L 03/18/17 04:31 Estimated GFR > 60 ml/min 03/18/17 04:31 BUN/Creatinine Ratio 32.00 % 03/18/17 04:31 Glucose 106 mg/dL (65-100) H 03/18/17 04:31 Calcium 8.7 mg/dL (8.4-10.2) 03/18/17 04:31 Total Bilirubin 0.20 mg/dL (0.1-1.2) 03/17/17 06:44 AST 13 units/L (5-40) 03/17/17 06:44 ALT 8 units/L (7-56) 03/17/17 06:44 Alkaline Phosphatase 41 units/L (35-129) 03/17/17 06:44 Troponin T < 0.010 ng/mL (0.00-0.029) 03/16/17 13:05 C-Reactive Protein 0.10 mg/dL (0.00-1.30) 03/17/17 06:44 Total Protein 6.7 g/dL (6.3-8.2) 03/17/17 06:44 Albumin 3.8 g/dL (3.9-5) L 03/17/17 06:44 Albumin/Globulin Ratio 1.3 % 03/17/17 06:44
--- NOTE | 2017-03-18 19:16 | Progress Note ---
Assessment and Plan Patient resting on 2 litres O2.Mild shortness of breath at rest.On 2 litres O2. O2 saturation 98%. Patient has history of smoking and COPD and on home O2. - Patient Problems (1) Acute hypercapnic respiratory failure Current Visit: Yes Status: Acute Plan to address problem: BIPAP 16/, rate 20, FIO2 28% Albuterol/atrovent aerosol treatments prn q 6 hours. Brovanna aerosol treatments q 12 hours. Continue I/V solumedral. Continue s/c Lovenox Continue protonix. (2) GERD (gastroesophageal reflux disease) Current Visit: Yes Status: Chronic Qualifiers: Esophagitis presence: without esophagitis Qualified Code(s): K21.9 - Gastro -esophageal reflux disease without esophagitis Plan to address problem: Patient is on protonix. (3) Hypertension Current Visit: Yes Status: Chronic Qualifiers: Hypertension type: essential hypertension Qualified Code(s): I10 - Essential (primary) hypertension Plan to address problem: Management as per primary care. (4) Acute exacerbation of chronic obstructive pulmonary disease (COPD) Current Visit: No Status: Acute Plan to address problem: Albuterol/atrovent aerosol treatments prn q 6 hours. Brovanna aerosol treatments q 12 hours. Continue I/V solumedral. Continue s/c Lovenox Continue protonix. O2 2 litres when she is not on BIPAP. Subjective Date of service: 03/18/17 Interval history: Patient resting on 2 litres O2.Mild shortness of breath at rest.On 2 litres O2. O2 saturation 98%. Patient has history of smoking and COPD and on home O2. Objective Vital Signs - 12hr 03/18/17 03/18/17 03/18/17 07:58 09:22 09:35 Temperature 98.5 F Pulse Rate 75 Pulse Rate [ 87 74 Anterior Bilateral Throughout] Pulse Rate [ 87 Posterior Left Throughout] Pulse Rate [ 87 Posterior Right Throughout] Respiratory 18 Rate Respiratory 16 16 Rate [Anterior Bilateral Throughout] Respiratory 16 Rate [Posterior Left Throughout] Respiratory 16 Rate [Posterior Right Throughout] Blood Pressure 155/54 O2 Sat by Pulse 96 Oximetry 03/18/17 03/18/17 03/18/17 14:15 14:26 15:48 Temperature 98.5 F Pulse Rate 86 Pulse Rate [ 79 81 Anterior Bilateral Throughout] Pulse Rate [ Posterior Left Throughout] Pulse Rate [ Posterior Right Throughout] Respiratory 18 Rate Respiratory 16 16 Rate [Anterior Bilateral Throughout] Respiratory Rate [Posterior Left Throughout] Respiratory Rate [Posterior Right Throughout] Blood Pressure 153/80 O2 Sat by Pulse 96 Oximetry Constitutional: alert, other (Mild shortness of breath at rest.) Eyes: non-icteric ENT: oropharynx moist Neck: supple, no lymphadenopathy Ascultation: Bilateral: diminished breath sounds (Prolonged expiratory phase.) Cardiovascular: regular rate and rhythm Gastrointestinal: normoactive bowel sounds, soft, non-tender Integumentary: normal Extremities: no cyanosis, no edema Neurologic: normal mental status, non-focal exam, pupils equal and round, CN II- XII normal Psychiatric: mood appropriate CBC and BMP: 03/17/17 06:44 03/18/17 04:31 ABG, PT/INR, D-dimer: ABG POC ABG pH 7.305 (7.35-7.45) L 03/16/17 15:06 POC ABG pCO2 78.3 (35-45) H 03/16/17 15:06 POC ABG pO2 115 (80-105) H 03/16/17 15:06 POC ABG HCO3 38.9 03/16/17 15:06 POC ABG Total CO2 41 03/16/17 15:06 POC ABG O2 Sat 98 03/16/17 15:06 PT/INR, D-dimer D-Dimer 165.53 ng/mlDDU (0-234) 03/17/17 13:12 Abnormal lab findings: Abnormal Labs 03/17/17 03/17/17 03/18/17 06:44 06:44 04:31 RDW 15.4 H Lymphocytes % (Manual) 2.0 L Seg Neutrophils # Man 10.8 H Lymphocytes # (Manual) 0.2 L Potassium 5.6 H D 3.4 L D Chloride 94.6 L 93.1 L Carbon Dioxide 39 H D Creatinine 0.5 L 0.5 L Glucose 120 H 106 H Albumin 3.8 L Chest x-ray: report reviewed (Hyperinflation changes of COPD.Small pleural effusions.), image reviewed
[2017-03-18] MEDS: LOVENOX SUB-Q SCH (21:19)
[2017-03-19] MEDS: DUONEB *Not for PRN Use IH SCH ×3 (02:17→13:35)
[2017-03-19] MEDS ORDERED: APRESOLINE IV PRN (05:00)
[2017-03-19] MEDS: BROVANA NEBU IH SCH (08:25)
[2017-03-19] MEDS: HCTZ PO SCH (09:29)
[2017-03-19] MEDS: MUCINEX ER PO SCH (09:29)
[2017-03-19] MEDS: BABY ASPIRIN PO SCH (09:30)
[2017-03-19] MEDS: PROTONIX PO SCH (09:30)
[2017-03-19] MEDS: ZESTRIL PO SCH (09:30)
--- NOTE | 2017-03-19 10:33 | Discharge Summary ---
Providers - Providers Date of Admission: 03/16/17 15:56 Date of discharge: 03/19/17 Attending physician: LOREN STANLEY 03/16/17 15:58 Consult to Physician [CONS] Routine Consulting Provider: ANDREE BLUNT Reason For Exam: resp failure Place consult to:: Talisha Notified:: yes Phone number called:: [phone] Was contact made?: Yes If yes, spoke with:: answering service Time called:: 18:54 Primary care physician: [employer] Hospitalization Reason for admission: SOB Condition: Stable Hospital course: Acute hypercapnic respiratory failure Likely from underlying COPD exacerbation patient is off Bipap now. on 2l n/c IV steroids abx and Duonebs ordered. COPD exacerbation - We'll transfer patient to remote tele - Will provide scheduled nebulizers and breathing treatment - Place on empiric steroid and antibiotic - will get sputum culture, chest x-ray showed bilateral small pleural effusion - Provide supplemental oxygen to keep oxygen saturation above 92% - Consult pulmonary, add mucinex for cough - We'll place on sliding scale of insulin as patient will be on empiric steroid Hypertension Cont lisinopril GERD (gastroesophageal reflux disease) Cont PPI's DVT prophylaxis On Lovenox Disposition: DC/[place]-06 HOME UNDER HOME [facility] Time spent for discharge: 35 min Core Measure Documentation - Palliative Care Palliative Care/ Comfort Measures: Not Applicable - Core Measures Any of the following diagnoses?: none Exam - Constitutional Vitals: Temp Pulse Resp BP Pulse Ox 98.7 F 89 16 169/86 97 03/19/17 08:05 03/19/17 09:30 03/19/17 08:41 03/19/17 09:30 03/19/17 08:05 Plan Activity: advance as tolerated, fall precautions Diet: low cholesterol, low salt Follow up with: JAZMIN TAYLOR MD [Primary Care Provider] - 7 Days TATO RIVAS MD [Staff Physician] - 7 Days Prescriptions: Arformoterol Nebu [Brovana Nebu] 15 mcg IH Q12HRT #1 ml Aspirin [Aspirin BABY CHEW TAB] 81 mg PO QDAY #30 tab.chew Famotidine [Pepcid] 20 mg PO BID #60 tablet guaiFENesin ER [Mucinex ER] 600 mg PO BID #10 tablet Hydrochlorothiazide [HCTZ] 12.5 mg PO QDAY #30 tablet Lisinopril [Zestril] 40 mg PO QDAY #30 tablet predniSONE [Deltasone] 20 mg PO QDAY #20 tab Ipratropium/Albuterol Sulfate [DUONEB *Not for PRN Use*] 1 ampul IH TIDRT #30 ampul.neb
[2017-03-19 11:54] VITALS: BP 143/77
== END 2017-03-19 14:25 | disposition home health service (06) | DRG 189 ==
LOC: ED 12:36 → CC1 15:56 → 3A 03-17 14:40
PROVIDERS: ADMIT Internal Medicine; ATTEND Internal Medicine
PROC: 4A033R1 Measurement of Arterial Saturation, Peripheral, Percutaneous Approach (ICD-10-PCS; principal; 2017-03-16)
PROC: 5A09357 Assistance with Respiratory Ventilation, Less than 24 Consecutive Hours, Continuous Positive Airway Pressure (ICD-10-PCS; 2017-03-16)
DX: J96.02 Acute respiratory failure with hypercapnia (principal); J44.1 Chronic obstructive pulmonary disease with (acute) exacerbation; I10 Essential (primary) hypertension; K21.9 Gastro-esophageal reflux disease without esophagitis; F17.200 Nicotine dependence, unspecified, uncomplicated; E87.5 Hyperkalemia; M19.90 Unspecified osteoarthritis, unspecified site; Z90.710 Acquired absence of both cervix and uterus; Z79.899 Other long term (current) drug therapy; Z82.49 Family history of ischemic heart disease and other diseases of the circulatory system; Z99.81 Dependence on supplemental oxygen
CPT/HCPCS: 36415; 71010; 80048; 80053; 82803; 84484; 85007; 85025; 85379; 86140; 90686; 93005; 93010; 94640; 99291; J0360; J1650; J2543; J2930

== ENCOUNTER 2017-05-04 17:59 | Inpatient (IN) | payer MEDICARE ==
[2017-05-04] MEDS ORDERED: NACL 0.9% 1000 ML 1,000 ML ONE ×2 (18:34→21:22)
--- NOTE | 2017-05-04 19:01 | Emergency Department Report ---
ED Altered Mental Status HPI - General Chief Complaint: Altered Mental Status Stated Complaint: LOW BP Time Seen by Provider: 05/04/17 18:56 Source: EMS Mode of arrival: Stretcher Limitations: No Limitations - History of Present Illness MD Complaint: altered mental status, confusion, weakness -: Gradual Severity: mild Consistency of Symptoms: waxing and waning Context: other (recent illness ) Associated Symptoms: malaise, nausea/vomiting, syncope, weakness, diarrhea Treatments Prior to Arrival: oxygen - Related Data Previous Rx's Medication Instructions Recorded Last Taken Type Acetaminophen [Acetaminophen TAB] 650 mg PO Q4H PRN #30 tablet 12/24/16 08:00 Rx Arformoterol Nebu [Brovana Nebu] 15 mcg IH Q12HRT #1 ml 03/19/17 Unknown Rx Aspirin [Aspirin BABY CHEW TAB] 81 mg PO QDAY #30 tab.chew 03/19/17 Unknown Rx Famotidine [Pepcid] 20 mg PO BID #60 tablet 03/19/17 Unknown Rx Hydrochlorothiazide [HCTZ] 12.5 mg PO QDAY #30 tablet 03/19/17 Unknown Rx Ipratropium/Albuterol Sulfate 1 ampul IH TIDRT #30 ampul.neb 03/19/17 Unknown Rx [DUONEB *Not for PRN Use*] Lisinopril [Zestril] 40 mg PO QDAY #30 tablet 03/19/17 Unknown Rx guaiFENesin ER [Mucinex ER] 600 mg PO BID #10 tablet 03/19/17 Unknown Rx predniSONE [Deltasone] 20 mg PO QDAY #20 tab 03/19/17 Unknown Rx Allergies Allergy/AdvReac Type Severity Reaction Status Date / Time No Known Allergies Allergy Verified 05/23/15 12:02 ED Review of Systems ROS: Stated complaint: LOW BP Other details as noted in HPI Comment: All other systems reviewed and negative Constitutional: see HPI, malaise, weakness Eyes: as per HPI ENT: as per HPI Respiratory: no symptoms reported Cardiovascular: as per HPI, syncope Endocrine: no symptoms reported Gastrointestinal: as per HPI, nausea, vomiting, diarrhea Genitourinary: as per HPI Musculoskeletal: as per HPI Skin: as per HPI Neurological: as per HPI Psychiatric: as per HPI Hematological/Lymphatic: as per HPI ED Past Medical Hx - Past Medical History Previous Medical History?: Yes Hx Hypertension: Yes Hx CVA: No Hx Heart Attack/AMI: No Hx Congestive Heart Failure: No Hx Diabetes: No Hx Deep Vein Thrombosis: No Hx Pulmonary Embolism: No Hx GERD: No Hx Liver Disease: No Hx Renal Disease: No Hx of Cancer: No Hx Sickle Cell Disease: No Hx Arthritis: Yes Hx Headaches / Migraines: No Hx Seizures: No Hx Kidney Stones: No Hx Psychiatric Treatment: No Hx Asthma: Yes Hx COPD: Yes Hx Tuberculosis: No Hx Dementia: No Hx HIV: No Additional medical history: HIGH CHOLESTEROL. Home O2 - Surgical History Past Surgical History?: Yes Hx Coronary Stent: No Hx Open Heart Surgery: No Hx Pacemaker: No Hx Internal Defibrillator: No Hx Cholecystectomy: No Hx Appendectomy: No Hx Breast Surgery: No Additional Surgical History: HYSTERECTOMY - Social History Smoking Status: Never Smoker Substance Use Type: None - Medications Home Medications: Home Medications Medication Instructions Recorded Confirmed Last Taken Type Acetaminophen [Acetaminophen TAB] 650 mg PO Q4H PRN #30 tablet 12/24/1603/14/17 08:00 Rx Arformoterol Nebu [Brovana Nebu] 15 mcg IH Q12HRT #1 ml 03/19/17 Unknown Rx Aspirin [Aspirin BABY CHEW TAB] 81 mg PO QDAY #30 tab.chew 03/19/17 Unknown Rx Famotidine [Pepcid] 20 mg PO BID #60 tablet 03/19/17 Unknown Rx Hydrochlorothiazide [HCTZ] 12.5 mg PO QDAY #30 tablet 03/19/17 Unknown Rx Ipratropium/Albuterol Sulfate 1 ampul IH TIDRT #30 ampul.neb 03/19/17 Unknown Rx [DUONEB *Not for PRN Use*] Lisinopril [Zestril] 40 mg PO QDAY #30 tablet 03/19/17 Unknown Rx guaiFENesin ER [Mucinex ER] 600 mg PO BID #10 tablet 03/19/17 Unknown Rx predniSONE [Deltasone] 20 mg PO QDAY #20 tab 03/19/17 Unknown Rx ED Physical Exam - General Limitations: No Limitations General appearance: alert, in no apparent distress - Head Head exam: Present: atraumatic, normocephalic - Eye Eye exam: Present: normal appearance - ENT ENT exam: Present: mucous membranes dry, TM's normal bilaterally - Neck Neck exam: Present: normal inspection - Respiratory Respiratory exam: Present: normal lung sounds bilaterally. Absent: respiratory distress - Cardiovascular Cardiovascular Exam: Present: regular rate, normal rhythm. Absent: systolic murmur, diastolic murmur, rubs, gallop - GI/Abdominal GI/Abdominal exam: Present: soft, normal bowel sounds - Extremities Exam Extremities exam: Present: normal inspection - Back Exam Back exam: Present: normal inspection - Neurological Exam Neurological exam: Present: alert, oriented X3 - Psychiatric Psychiatric exam: Present: normal affect, normal mood - Skin Skin exam: Present: warm, dry, intact, normal color. Absent: rash ED Course Vital Signs 05/04/17 05/04/17 05/04/17 18:14 18:21 18:22 Temperature 97.8 F 97.8 F Pulse Rate 87 87 Respiratory 12 18 12 Rate Blood Pressure 79/35 Blood Pressure 79/39 79/39 [Right] O2 Sat by Pulse 100 100 100 Oximetry - Central Line Placement Right IJ Consent Obtained: verbal consent, written consent, emergent situation Time Out Performed: Yes Patient Placed on Monitor/Pulse Ox: Yes MD Prep: mask, gown, gloves Central Line Prep: Chlorhexidine scrub, sterile drapes applied Local Anesthesia Used: Lidocaine 1% Amount of Anesthesia Used (mls): 5 (5 mls of lido) Ultrasound Used for Placement: Yes Central Line Lumen Inserted: triple Bloods Obtained for Lab: No Central Line Position: good blood return, all ports aspirated, flus, sutured in place with 2-0 Dressing Applied: Tegaderm Post Procedure X-Ray: tip of catheter in good p, other (typical position and no pneumothorax noted.) Patient Tolerated Procedure: well Complications: none - Lab Data Result diagrams: 05/04/17 18:39 05/04/17 18:39 Lab Results 05/04/17 05/04/17 05/04/17 Range/Units 18:39 18:39 18:39 WBC 24.3 H (4.5-11.0) K/mm3 RBC 3.78 (3.65-5.03) M/mm3 Hgb 10.9 (10.1-14.3) gm/dl Hct 34.9 (30.3-42.9) % MCV 92 (79-97) fl MCH 29 (28-32) pg MCHC 31 (30-34) % RDW 16.4 H (13.2-15.2) % Plt Count 658 H (140-440) K/mm3 Add Manual Diff Complete Total Counted 200 Seg Neuts % (Manual) 94.5 H (40.0-70.0) % Band Neutrophils % 0.5 % Lymphocytes % (Manual) 2.5 L (13.4-35.0) % Reactive Lymphs % (Man) 0 % Monocytes % (Manual) 2.0 (0.0-7.3) % Eosinophils % (Manual) 0.5 (0.0-4.3) % Basophils % (Manual) 0 (0.0-1.8) % Metamyelocytes % 0 % Myelocytes % 0 % Promyelocytes % 0 % Blast Cells % 0 % Nucleated RBC % Not Reportable Seg Neutrophils # Man 23.0 H (1.8-7.7) K/mm3 Band Neutrophils # 0.1 K/mm3 Lymphocytes # (Manual) 0.6 L (1.2-5.4) K/mm3 Abs React Lymphs (Man) 0.0 K/mm3 Monocytes # (Manual) 0.5 (0.0-0.8) K/mm3 Eosinophils # (Manual) 0.1 (0.0-0.4) K/mm3 Basophils # (Manual) 0.0 (0.0-0.1) K/mm3 Metamyelocytes # 0.0 K/mm3 Myelocytes # 0.0 K/mm3 Promyelocytes # 0.0 K/mm3 Blast Cells # 0.0 K/mm3 WBC Morphology Not Reportable Hypersegmented Neuts Not Reportable Hyposegmented Neuts Not Reportable Hypogranular Neuts Not Reportable Smudge Cells Not Reportable Toxic Granulation Not Reportable Toxic Vacuolation Not Reportable Dohle Bodies Not Reportable Pelger-Huet Anomaly Not Reportable Neisha Rods Not Reportable Platelet Estimate Consistent w auto Clumped Platelets Not Reportable Plt Clumps, EDTA Not Reportable Large Platelets Not Reportable Giant Platelets Not Reportable Platelet Satelliting Not Reportable Plt Morphology Comment Not Reportable RBC Morphology Not Reportable Dimorphic RBCs Not Reportable Polychromasia Not Reportable Hypochromasia Not Reportable Poikilocytosis Not Reportable Anisocytosis 1+ Microcytosis Not Reportable Macrocytosis Not Reportable Spherocytes Not Reportable Pappenheimer Bodies Not Reportable Sickle Cells Not Reportable Target Cells Not Reportable Tear Drop Cells Not Reportable Ovalocytes Not Reportable Helmet Cells Not Reportable [place] Bodies Not Reportable [place] Rings Not Reportable [place] Cells Not Reportable Bite Cells Not Reportable Crenated Cell Not Reportable Elliptocytes Not Reportable Acanthocytes (Spur) Not Reportable Rouleaux Not Reportable Hemoglobin C Crystals Not Reportable Schistocytes Not Reportable Malaria parasites Not Reportable Herve Bodies Not Reportable Hem Pathologist Commnt No Sodium 139 (137-145) mmol/L Potassium 3.2 L (3.6-5.0) mmol/L Chloride 92.6 L (98-107) mmol/L Carbon Dioxide 14 L (22-30) mmol/L Anion Gap 36 mmol/L BUN 66 H (7-17) mg/dL Creatinine 6.5 H (0.7-1.2) mg/dL Estimated GFR 8 ml/min BUN/Creatinine Ratio 10 % Glucose 75 (65-100) mg/dL Lactic Acid 0.70 (0.7-2.0) mmol/L Calcium 7.5 L (8.4-10.2) mg/dL Magnesium 1.70 (1.7-2.3) mg/dL Total Bilirubin 0.20 (0.1-1.2) mg/dL AST 11 (5-40) units/L ALT 5 L (7-56) units/L Alkaline Phosphatase 32 L (35-129) units/L Total Creatine Kinase (30-135) units/L CK-MB (CK-2) (0.0-4.0) ng/mL CK-MB (CK-2) Rel Index (0-4) Troponin T (0.00-0.029) ng/mL Total Protein 5.4 L (6.3-8.2) g/dL Albumin 3.0 L (3.9-5) g/dL Albumin/Globulin Ratio 1.3 % Triglycerides (2-149) mg/dL Cholesterol (50-199) mg/dL LDL Cholesterol Direct (50-130) mg/dL HDL Cholesterol (40-59) mg/dL Cholesterol/HDL Ratio % TSH (0.270-4.200) mlU/mL Salicylates (2.8-20.0) mg/dL Acetaminophen (10.0-30.0) ug/mL Plasma/Serum Alcohol (0-0.07) gm% 05/04/17 05/04/17 05/04/17 Range/Units 18:39 18:39 18:39 WBC (4.5-11.0) K/mm3 RBC (3.65-5.03) M/mm3 Hgb (10.1-14.3) gm/dl Hct (30.3-42.9) % MCV (79-97) fl MCH (28-32) pg MCHC (30-34) % RDW (13.2-15.2) % Plt Count (140-440) K/mm3 Add Manual Diff Total Counted Seg Neuts % (Manual) (40.0-70.0) % Band Neutrophils % % Lymphocytes % (Manual) (13.4-35.0) % Reactive Lymphs % (Man) % Monocytes % (Manual) (0.0-7.3) % Eosinophils % (Manual) (0.0-4.3) % Basophils % (Manual) (0.0-1.8) % Metamyelocytes % % Myelocytes % % Promyelocytes % % Blast Cells % % Nucleated RBC % Seg Neutrophils # Man (1.8-7.7) K/mm3 Band Neutrophils # K/mm3 Lymphocytes # (Manual) (1.2-5.4) K/mm3 Abs React Lymphs (Man) K/mm3 Monocytes # (Manual) (0.0-0.8) K/mm3 Eosinophils # (Manual) (0.0-0.4) K/mm3 Basophils # (Manual) (0.0-0.1) K/mm3 Metamyelocytes # K/mm3 Myelocytes # K/mm3 Promyelocytes # K/mm3 Blast Cells # K/mm3 WBC Morphology Hypersegmented Neuts Hyposegmented Neuts Hypogranular Neuts Smudge Cells Toxic Granulation Toxic Vacuolation Dohle Bodies Pelger-Huet Anomaly Neisha Rods Platelet Estimate Clumped Platelets Plt Clumps, EDTA Large Platelets Giant Platelets Platelet Satelliting Plt Morphology Comment RBC Morphology Dimorphic RBCs Polychromasia Hypochromasia Poikilocytosis Anisocytosis Microcytosis Macrocytosis Spherocytes Pappenheimer Bodies Sickle Cells Target Cells Tear Drop Cells Ovalocytes Helmet Cells [place] Bodies [place] Rings [place] Cells Bite Cells Crenated Cell Elliptocytes Acanthocytes (Spur) Rouleaux Hemoglobin C Crystals Schistocytes Malaria parasites Herve Bodies Hem Pathologist Commnt Sodium (137-145) mmol/L Potassium (3.6-5.0) mmol/L Chloride (98-107) mmol/L Carbon Dioxide (22-30) mmol/L Anion Gap mmol/L BUN (7-17) mg/dL Creatinine (0.7-1.2) mg/dL Estimated GFR ml/min BUN/Creatinine Ratio % Glucose (65-100) mg/dL Lactic Acid (0.7-2.0) mmol/L Calcium (8.4-10.2) mg/dL Magnesium (1.7-2.3) mg/dL Total Bilirubin (0.1-1.2) mg/dL AST (5-40) units/L ALT (7-56) units/L Alkaline Phosphatase (35-129) units/L Total Creatine Kinase (30-135) units/L CK-MB (CK-2) (0.0-4.0) ng/mL CK-MB (CK-2) Rel Index (0-4) Troponin T (0.00-0.029) ng/mL Total Protein (6.3-8.2) g/dL Albumin (3.9-5) g/dL Albumin/Globulin Ratio % Triglycerides (2-149) mg/dL Cholesterol (50-199) mg/dL LDL Cholesterol Direct (50-130) mg/dL HDL Cholesterol (40-59) mg/dL Cholesterol/HDL Ratio % TSH 1.780 (0.270-4.200) mlU/mL Salicylates 0.3 L (2.8-20.0) mg/dL Acetaminophen < 15.0 (10.0-30.0) ug/mL Plasma/Serum Alcohol (0-0.07) gm% 05/04/17 05/04/17 Range/Units 18:39 18:55 WBC (4.5-11.0) K/mm3 RBC (3.65-5.03) M/mm3 Hgb (10.1-14.3) gm/dl Hct (30.3-42.9) % MCV (79-97) fl MCH (28-32) pg MCHC (30-34) % RDW (13.2-15.2) % Plt Count (140-440) K/mm3 Add Manual Diff Total Counted Seg Neuts % (Manual) (40.0-70.0) % Band Neutrophils % % Lymphocytes % (Manual) (13.4-35.0) % Reactive Lymphs % (Man) % Monocytes % (Manual) (0.0-7.3) % Eosinophils % (Manual) (0.0-4.3) % Basophils % (Manual) (0.0-1.8) % Metamyelocytes % % Myelocytes % % Promyelocytes % % Blast Cells % % Nucleated RBC % Seg Neutrophils # Man (1.8-7.7) K/mm3 Band Neutrophils # K/mm3 Lymphocytes # (Manual) (1.2-5.4) K/mm3 Abs React Lymphs (Man) K/mm3 Monocytes # (Manual) (0.0-0.8) K/mm3 Eosinophils # (Manual) (0.0-0.4) K/mm3 Basophils # (Manual) (0.0-0.1) K/mm3 Metamyelocytes # K/mm3 Myelocytes # K/mm3 Promyelocytes # K/mm3 Blast Cells # K/mm3 WBC Morphology Hypersegmented Neuts Hyposegmented Neuts Hypogranular Neuts Smudge Cells Toxic Granulation Toxic Vacuolation Dohle Bodies Pelger-Huet Anomaly Neisha Rods Platelet Estimate Clumped Platelets Plt Clumps, EDTA Large Platelets Giant Platelets Platelet Satelliting Plt Morphology Comment RBC Morphology Dimorphic RBCs Polychromasia Hypochromasia Poikilocytosis Anisocytosis Microcytosis Macrocytosis Spherocytes Pappenheimer Bodies Sickle Cells Target Cells Tear Drop Cells Ovalocytes Helmet Cells [place] Bodies [place] Rings [place] Cells Bite Cells Crenated Cell Elliptocytes Acanthocytes (Spur) Rouleaux Hemoglobin C Crystals Schistocytes Malaria parasites Herve Bodies Hem Pathologist Commnt Sodium (137-145) mmol/L Potassium (3.6-5.0) mmol/L Chloride (98-107) mmol/L Carbon Dioxide (22-30) mmol/L Anion Gap mmol/L BUN (7-17) mg/dL Creatinine (0.7-1.2) mg/dL Estimated GFR ml/min BUN/Creatinine Ratio % Glucose (65-100) mg/dL Lactic Acid (0.7-2.0) mmol/L Calcium (8.4-10.2) mg/dL Magnesium (1.7-2.3) mg/dL Total Bilirubin (0.1-1.2) mg/dL AST (5-40) units/L ALT (7-56) units/L Alkaline Phosphatase (35-129) units/L Total Creatine Kinase 155 H (30-135) units/L CK-MB (CK-2) 4.5 H (0.0-4.0) ng/mL CK-MB (CK-2) Rel Index 2.9 (0-4) Troponin T 0.033 H (0.00-0.029) ng/mL Total Protein (6.3-8.2) g/dL Albumin (3.9-5) g/dL Albumin/Globulin Ratio % Triglycerides 149 (2-149) mg/dL Cholesterol 185 (50-199) mg/dL LDL Cholesterol Direct 103 (50-130) mg/dL HDL Cholesterol 53 (40-59) mg/dL Cholesterol/HDL Ratio 3.49 % TSH (0.270-4.200) mlU/mL Salicylates (2.8-20.0) mg/dL Acetaminophen (10.0-30.0) ug/mL Plasma/Serum Alcohol < 0.01 (0-0.07) gm% - EKG Data -: EKG Interpreted by Me EKG shows normal: sinus rhythm Rate: normal When compared to previous EKG there are: no significant change Interpretation: no acute changes, normal EKG - Medical Decision Making Patient is 61-year-old female with hypotension and sepsis and acute renal insufficiency. Consult hospitalist for admission, hospitalist agreed to admit. - Differential Diagnosis infection. dehydration. gastroenteritis, SEPSIS Critical Care Time: Yes Critical care attestation.: If time is entered above; I have spent that time in minutes in the direct care of this critically ill patient, excluding procedure time. Critical Care Time: 60 minutes spent with patient for critical care time separate from procedure time. ED Disposition Clinical Impression: Altered mental status, Hypotension, Dehydration, Diarrhea, Nausea & vomiting, Sepsis, Acute renal insufficiency Disposition: OP ADMIT IP TO THIS HOSP Is pt being admited?: Yes Does the pt Need Aspirin: No Condition: Critical Referrals: PRIMARY CARE, [Primary Care Provider] - 3-5 Days Time of Disposition: 21:26
[2017-05-04 19:31] LABS: Creatine Kinase MB 4.5 ng/mL (0.0-4.0)
[2017-05-04 19:32] LABS: Albumin/Globulin Ratio 1.3 %; Bilirubin,Total 0.2 mg/dL (0.1-1.2); Calcium 7.5 mg/dL (8.4-10.2); Chloride 92.6 mmol/L (98-107); Magnesium 1.7 mg/dL (1.7-2.3); Potassium 3.2 mmol/L (3.6-5.0); Total Protein 5.4 g/dL (6.3-8.2)
[2017-05-04 19:53] LABS: Hematocrit 34.9 % (30.3-42.9); Hemoglobin 10.9 gm/dl (10.1-14.3); Mean Corpuscular Volume 92 fl (79-97); Red Blood Count 3.78 M/mm3 (3.65-5.03); White Blood Count 24.3 K/mm3 (4.5-11.0)
[2017-05-04 19:54] LABS: Mean Corpuscular HGB Conc 31 % (30-34); Mean Corpuscular Hemoglobin 29 pg (28-32); Mean Platelet Volume 7.7 fl (6-12); Platelet Count 658 K/mm3 (140-440); Red Cell Distribution Width 16.4 % (13.2-15.2)
--- NOTE | 2017-05-04 20:33 | Cat Scan Report ---
FINAL REPORT PROCEDURE: CT HEAD/BRAIN WO CON TECHNIQUE: Computerized tomography of the head was performed without contrast material. HISTORY: AMS COMPARISON: No prior studies are available for comparison. FINDINGS: The visualized portions of the paranasal sinuses are clear. Mastoid air cells are clear. There is no calvarial fracture. There is no hydrocephalus. No acute intracranial hemorrhage or mass effect is seen. There is no evidence of acute CVA. Mild chronic small vessel ischemic changes are seen. IMPRESSION: Mild chronic small vessel ischemic changes are seen without evidence acute abnormality.
[2017-05-04 20:41] LABS: Basophils % (Manual) 0 % (0.0-1.8); Blastocytes % (Manual) 0 %; Eosinophils % (Manual) 0.5 % (0.0-4.3); Total Cells Counted Percent 2.5
[2017-05-04 20:42] LABS: Anisocytosis 1+; Diff Status Complete; Platelet Estimate Consistent w Auto
[2017-05-04] MEDS ORDERED: ZOSYN/NS 2.25 GM/50ML 2.25 GM/50 ML BAG IV ONE (20:42)
--- NOTE | 2017-05-04 21:29 | XRay Report ---
FINAL REPORT PROCEDURE: XR CHEST 1V AP TECHNIQUE: Chest radiograph anteroposterior view. CPT 94427 HISTORY: cental line COMPARISON: Chest x-ray dated May 23, 2015 FINDINGS: Central venous catheter terminates the region of the mid SVC. Changes of COPD are present. Heart is normal in size. Calcification is seen of the aortic arch. No pneumothorax or pleural effusion is seen. IMPRESSION: Central venous catheter terminates in region of the mid SVC. No pneumothorax is seen.
[2017-05-04] MEDS ORDERED: NACL 0.9% 1000 ML 1,000 ML IV ONE ×3 (21:31→22:46)
[2017-05-04] MEDS ORDERED: MILK OF MAGNESIA PO PRN (22:48)
[2017-05-04] MEDS ORDERED: DULCOLAX PR PRN (22:48)
[2017-05-04] MEDS ORDERED: TYLENOL PO PRN (22:48)
[2017-05-04] MEDS ORDERED: K-DUR PO ONE (22:55)
--- NOTE | 2017-05-04 22:56 | History and Physical Report ---
History of Present Illness Date of examination: 05/04/17 History of present illness: 61-year-old male with a history of hypertension, COPD, hyperlipidemia [facility] with complaints of diarrhea 1 week. She has multiple episodes per day, too numerous to count, also complaining of nausea vomiting and abdominal cramping, decrease oral intake. She had small amounts of blood 2, also has a history of hemorrhoids. Patient states she passed out. No fever or chills Review Of Systems: Constitutional: no weight loss Ears, eyes, nose, mouth and throat: no nasal congestion, no nasal discharge, no sinus pressure, blurry vision, diplopia Neck: No neck pain or rigidity. Cardiovascular: no chest pain, orthopnea, palpitations Respiratory: No shortness of breath, cough Gastrointestinal:+abdominal pain Genitourinary : no dysuria, frequency , hematuria Musculoskeletal: no muscle ache Integumentary: no rash, no pruritis Neurological: no parathesias, focal weakness Endocrine: no cold or heat intolerance, no polyuria or polydipsia Hematologic/Lymphatic: no easy bruising, no easy bleeding, no gland swelling Allergic/Immunologic: no urticaria, no angioedema. PAST MEDICAL HISTORY:hypertension, COPD, hyperlipidemia PAST SURGICAL HISTORY: Hysterectomy FAmILY HISTORY:hypertension SOCIAL HISTORY: Denies alcohol, tobacco, drugs Medications and Allergies Allergies Allergy/AdvReac Type Severity Reaction Status Date / Time No Known Allergies Allergy Verified 05/23/15 12:02 Home Medications Medication Instructions Recorded Confirmed Last Taken Type Acetaminophen [Acetaminophen TAB] 650 mg PO Q4H PRN #30 tablet 12/24/1603/14/17 08:00 Rx Arformoterol Nebu [Brovana Nebu] 15 mcg IH Q12HRT #1 ml 03/19/17 05/05/17 Unknown Rx Aspirin [Aspirin BABY CHEW TAB] 81 mg PO QDAY #30 tab.chew 03/19/17 05/05/17 Unknown Rx Famotidine [Pepcid] 20 mg PO BID #60 tablet 03/19/17 05/05/17 Unknown Rx Hydrochlorothiazide [HCTZ] 12.5 mg PO QDAY #30 tablet 03/19/17 05/05/17 Unknown Rx Ipratropium/Albuterol Sulfate 1 ampul IH TIDRT #30 ampul.neb 03/19/17 05/05/17 Unknown Rx [DUONEB *Not for PRN Use*] Lisinopril [Zestril] 40 mg PO QDAY #30 tablet 03/19/17 05/05/17 Unknown Rx guaiFENesin ER [Mucinex ER] 600 mg PO BID #10 tablet 03/19/17 05/05/17 Unknown Rx Active Meds: Active Medications Acetaminophen (Tylenol) 650 mg PO Q4H PRN PRN Reason: Pain MILD(1-3)/Fever >100.5/KHOURY Bisacodyl (Dulcolax) 10 mg MS QDAY PRN PRN Reason: Constipation unrelieved by MOM Norepinephrine 8 mg/ Sodium (Chloride) 250 mls @ 3.75 mls/hr IV TITR DUNG; 2 MCG /MIN PRN Reason: Protocol Sodium Chloride (Nacl 0.9% 1000 Ml) 1,000 mls @ 999 mls/hr IV BOLUS ONE Stop: 05/04/17 23:33 Last Admin: 05/04/17 22:35 Dose: 999 mls/hr Sodium Chloride (Nacl 0.9% 1000 Ml) 1,000 mls @ 150 mls/hr IV DIRECT DUNG Sodium Chloride (Nacl 0.9% 1000 Ml) 1,000 mls @ 999 mls/hr IV ONCE ONE Stop: 05/04/17 23:46 Magnesium Hydroxide (Milk Of Magnesia) 30 ml PO Q4H PRN PRN Reason: Constipation Ondansetron HCl (Zofran) 4 mg IV Q4H PRN PRN Reason: N/V unrelieved by Reglan Potassium Chloride (K-Dur) 40 meq PO ONCE ONE Stop: 05/04/17 22:56 Exam - Physical Exam Narrative exam: Gen. appearance: Patient lying in bed in no acute distress HEENT: Normocephalic/atraumatic, pupils equal round reactive to light, extra alkaline movement intact, no scleral icterus, no JVD or thyromegaly or nodule, neck is supple, mucous membrane moist, no erythema or exudate Heart: S1-S2, regular rate and rhythm Lungs: Clear to auscultation bilateral breathing comfortable Abdomen: Positive bowel sounds, nontender, nondistended, no organomegaly Extremities: No edema, cyanosis, clubbing Neuro:: Oriented 3 , cranial nerves II-12 intact, speech, motor intact Skin: No rash, nodules, warm dry - Constitutional Vitals: Temp Pulse Resp BP Pulse Ox 97.8 F 87 12 79/39 100 05/04/17 18:21 05/04/17 18:21 05/04/17 18:22 05/04/17 18:21 05/04/17 18:22 Results - Labs CBC & Chem 7: 05/13/17 06:54 05/13/17 06:54 Labs: Abnormal lab results 05/04/17 05/04/17 05/04/17 Range/Units 18:39 18:39 18:39 WBC 24.3 H (4.5-11.0) K/mm3 RDW 16.4 H (13.2-15.2) % Plt Count 658 H (140-440) K/mm3 Seg Neuts % (Manual) 94.5 H (40.0-70.0) % Lymphocytes % (Manual) 2.5 L (13.4-35.0) % Seg Neutrophils # Man 23.0 H (1.8-7.7) K/mm3 Lymphocytes # (Manual) 0.6 L (1.2-5.4) K/mm3 Potassium 3.2 L (3.6-5.0) mmol/L Chloride 92.6 L (98-107) mmol/L Carbon Dioxide 14 L (22-30) mmol/L BUN 66 H (7-17) mg/dL Creatinine 6.5 H (0.7-1.2) mg/dL Calcium 7.5 L (8.4-10.2) mg/dL ALT 5 L (7-56) units/L Alkaline Phosphatase 32 L (35-129) units/L Total Creatine Kinase (30-135) units/L CK-MB (CK-2) (0.0-4.0) ng/mL Troponin T (0.00-0.029) ng/mL Total Protein 5.4 L (6.3-8.2) g/dL Albumin 3.0 L (3.9-5) g/dL Salicylates 0.3 L (2.8-20.0) mg/dL 05/04/17 Range/Units 18:55 WBC (4.5-11.0) K/mm3 RDW (13.2-15.2) % Plt Count (140-440) K/mm3 Seg Neuts % (Manual) (40.0-70.0) % Lymphocytes % (Manual) (13.4-35.0) % Seg Neutrophils # Man (1.8-7.7) K/mm3 Lymphocytes # (Manual) (1.2-5.4) K/mm3 Potassium (3.6-5.0) mmol/L Chloride (98-107) mmol/L Carbon Dioxide (22-30) mmol/L BUN (7-17) mg/dL Creatinine (0.7-1.2) mg/dL Calcium (8.4-10.2) mg/dL ALT (7-56) units/L Alkaline Phosphatase (35-129) units/L Total Creatine Kinase 155 H (30-135) units/L CK-MB (CK-2) 4.5 H (0.0-4.0) ng/mL Troponin T 0.033 H (0.00-0.029) ng/mL Total Protein (6.3-8.2) g/dL Albumin (3.9-5) g/dL Salicylates (2.8-20.0) mg/dL - Imaging and Cardiology Chest x-ray: image reviewed CT Scan - head: report reviewed Assessment and Plan Assessment Acute renal failure Gastroenteritis, probably bacterial versus colitis Hypertosion, suspect sepsis Abnormal cardiac enzymes Syncope most likely secondary to dehydration COPD Plan Admit to medicine Start IV fluid, levophed drip Start IV Levaquin, Flagyl, check blood cultures, stool cultures Obtain CAT scan of the abdomen and pelvis, consult GI, renal Consult critical care Check lactate, cardiac enzymes, d-dimer, blood culture, urinalysis DVT prophylaxis Addendum D-dimer elevated, obtain v/q scan tried to call in v/q tech without success, unable to reach
[2017-05-04] MEDS: LEVOPHED 8 MG in NACL 0.9% 250ML 242 ML IV SCH (23:00)
[2017-05-05] MEDS ORDERED: K-DUR PO ONE (00:14)
--- NOTE | 2017-05-05 00:24 | Cat Scan Report ---
FINAL REPORT EXAM: CT ABDOMEN PELVIS WO CON HISTORY: diarrhea, arf TECHNIQUE: Routine axial imaging was obtained of the abdomen and pelvis without oral or IV contrast. Sagittal and coronal reconstructions were reviewed FINDINGS: The lung bases reveal emphysematous changes. There are no localized infiltrates or effusions. There is moderate ascites throughout the abdomen and pelvis. The gallbladder is normal in size. The liver, pancreas, and spleen appear normal. The adrenal glands are not enlarged. The kidneys show no evidence of hydronephrosis. There is calcification of the abdominal aorta. The bowel loops are normal in caliber. There is diffuse circumferential mucosal thickening throughout the entire colon compatible with a generalized nonspecific colitis. The small bowel loops are not dilated. In the pelvis once again there is considerable ascites. The bladder appears normal. The uterus is not seen. The skeletal structures reveal severe end-stage arthritic changes of the right hip joint. There is also multilevel disc degeneration in the lumbar spine. IMPRESSION: Generalized nonspecific colitis. Ascites. No evidence of renal stones or obstruction. Emphysematous changes in both lung bases. Hysterectomy. Severe arthritic changes of the right hip joint with multilevel disc degeneration in the lumbar spine
[2017-05-05 00:28] LABS: Creatine Kinase MB 6.2 ng/mL (0.0-4.0)
[2017-05-05] MEDS: NACL 0.9% 1000 ML 1,000 ML IV SCH ×2 (01:00→08:28)
[2017-05-05] MEDS ORDERED: NACL 0.9% 1000 ML 1,000 ML ONE (01:40)
[2017-05-05] MEDS ORDERED: NACL 0.9% 1000 ML 2,000 ML ONE (01:52)
[2017-05-05] MEDS ORDERED: NACL 0.9% 1000 ML 1,000 ML IV ONE ×3 (01:55→07:11)
[2017-05-05] MEDS ORDERED: HEMORRHOIDAL 0.25/3/85.5% PR ONE (02:14)
[2017-05-05] MEDS ORDERED: VANCOMYCIN VIAL 500 MG in NACL 0.9% 100 ML IV ONE (02:15)
[2017-05-05 02:26] LABS: Urine Drugs of Abuse Note Disclamer
[2017-05-05 02:36] LABS: Bacteria,Urine 1+ /HPF (Negative); Bilirubin,Urine NEG (Negative); Blood,Urine LG (Negative); Ketones,Urine TR mg/dL (Negative); Leukocyte Esterase,Urine SM (Negative); Mucus,Urine FEW /HPF; Nitrite,Urine NEG (Negative); Urobilinogen,Urine < 2.0 mg/dL (<2.0)
[2017-05-05] MEDS ORDERED: VANCOMYCIN PHARMACY TO DOSE IV SCH (03:00)
[2017-05-05] MEDS ORDERED: VANCOMYCIN 1,250 MG in NACL 0.9% 250ML 250 ML IV ONE (03:00)
[2017-05-05] MEDS ORDERED: LEVAQUIN 750MG/150ML 750 MG/150 ML BAG IV SCH (06:00)
[2017-05-05] MEDS ORDERED: LEVAQUIN 750MG/150ML 750 MG/150 ML BAG IV ONE (06:00)
[2017-05-05 06:01] LABS: Mean Corpuscular HGB Conc 30 % (30-34); Mean Corpuscular Hemoglobin 28 pg (28-32); Mean Corpuscular Volume 93 fl (79-97); Platelet Count 712 K/mm3 (140-440); Red Blood Count 3.39 M/mm3 (3.65-5.03); Red Cell Distribution Width 16.7 % (13.2-15.2)
[2017-05-05 06:25] LABS: Calcium 6.1 mg/dL (8.4-10.2); Chloride 106.5 mmol/L (98-107); Creatine Kinase MB 8.2 ng/mL (0.0-4.0); Potassium 4.2 mmol/L (3.6-5.0)
[2017-05-05] MEDS: FLAGYL 500 MG/100 ML 500 MG/100 ML BAG IV SCH ×3 (06:37→23:29)
[2017-05-05 07:04] LABS: Hematocrit 31.6 % (30.3-42.9); Hemoglobin 9.3 gm/dl (10.1-14.3); White Blood Count 33.9 K/mm3 (4.5-11.0)
[2017-05-05] MEDS: LEVOPHED 8 MG in NACL 0.9% 250ML 242 ML IV SCH ×4 (07:30→21:03)
[2017-05-05] MEDS: Vasostrict 20 UNIT in NACL 0.9% 100 ML IV SCH ×2 (08:15→17:32)
[2017-05-05 09:52] LABS: Anisocytosis 1+; Basophils % (Manual) 0 % (0.0-1.8); Blastocytes % (Manual) 0 %; Burr Cells 1+; Eosinophils % (Manual) 0 % (0.0-4.3)
[2017-05-05] MEDS: DUONEB *Not for PRN Use IH SCH ×3 (09:57→20:17)
[2017-05-05 09:59] LABS: Diff Status Complete; Ovalocytes 1+; Platelet Estimate Consistent w Auto
--- NOTE | 2017-05-05 10:22 | Progress Note ---
Assessment and Plan Assessment and plan: 61-year-old AA female with a history of COPD, hypertension and hyperlipidemia presented to the ER and was subsequently admitted to the ICU due to complaints of severe diarrhea and weakness and near syncope episode. Patient reports history of diarrhea episodes, mostly watery for 1 week prior to admission. She reports numerous stools throughout the day, too many to count. Associated symptoms include nausea, vomiting and abdominal cramps She denies any fever. She denies sick contacts, recent travel or recent antibiotics. On admission she was noted to be hypotensive, was given IV fluids of 5 to 7 L by now. MAP was still low and she was initiated on pressors. Vomiting has since subsided and stools have decreased to 2-3 times per day, still watery. Abdominal cramps still present Hypotension Serial BP monitoring Continue IV fluids and pressor, once BP improves taper COPD Continue oxygen Pulmonology consult Sepsis secondary to GI source Infectious disease consults Waiting on blood cultures, continue antibiotics Gastroenteritis Abdominal CT showing colitis, mild ascites Monitor for GI bleed Stool Occult blood test GI consult Shock Septic vs hypovolemic Acute Renal Failure Nephrology consult History Interval history: Patient is alert and sitting up in bed with mildly distressed breathing, worse when she lays down. She has no other new complaints at this time Hospitalist Physical - Constitutional Vitals: Temp Pulse Resp BP Pulse Ox 98.0 F 81 15 87/34 100 05/05/17 07:53 05/05/17 10:02 05/05/17 10:02 05/05/17 07:21 05/05/17 08:09 General appearance: Present: mild distress - EENT Eyes: Present: PERRL, EOM intact ENT: hearing intact - Neck Neck: Present: supple, normal ROM - Respiratory Respiratory effort: labored Respiratory: bilateral: diminished - Cardiovascular Rhythm: regular Heart Sounds: Present: S1 & S2 - Extremities Extremities: no ischemia, pulses intact, No edema, normal temperature, normal color Peripheral Pulses: within normal limits - Abdominal General gastrointestinal: soft, tender (generalized), distended (mild), normal bowel sounds - Integumentary Integumentary: Present: clear, warm, dry - Psychiatric Psychiatric: appropriate mood/affect - Neurologic Neurologic: moves all extremities - Allied Health Allied health notes reviewed: nursing Results - Labs CBC & Chem 7: 05/05/17 05:20 05/05/17 05:20 Labs: Laboratory Last Values WBC 33.9 K/mm3 (4.5-11.0) H 05/05/17 05:20 RBC 3.39 M/mm3 (3.65-5.03) L 05/05/17 05:20 Hgb 9.3 gm/dl (10.1-14.3) L 05/05/17 05:20 Hct 31.6 % (30.3-42.9) 05/05/17 05:20 MCV 93 fl (79-97) 05/05/17 05:20 MCH 28 pg (28-32) 05/05/17 05:20 MCHC 30 % (30-34) 05/05/17 05:20 RDW 16.7 % (13.2-15.2) H 05/05/17 05:20 Plt Count 712 K/mm3 (140-440) H 05/05/17 05:20 Add Manual Diff Complete 05/05/17 05:20 Total Counted 200 05/05/17 05:20 Seg Neutrophils % Pig Conveyor Operator 05/05/17 05:20 Seg Neuts % (Manual) 91.0 % (40.0-70.0) H 05/05/17 05:20 Band Neutrophils % 3.0 % 05/05/17 05:20 Lymphocytes % (Manual) 1.0 % (13.4-35.0) L 05/05/17 05:20 Reactive Lymphs % (Man) 0 % 05/05/17 05:20 Monocytes % (Manual) 4.5 % (0.0-7.3) 05/05/17 05:20 Eosinophils % (Manual) 0 % (0.0-4.3) 05/05/17 05:20 Basophils % (Manual) 0 % (0.0-1.8) 05/05/17 05:20 Metamyelocytes % 0.5 % 05/05/17 05:20 Myelocytes % 0 % 05/05/17 05:20 Promyelocytes % 0 % 05/05/17 05:20 Blast Cells % 0 % 05/05/17 05:20 Nucleated RBC % Not Reportable 05/05/17 05:20 Seg Neutrophils # Man 30.8 K/mm3 (1.8-7.7) H 05/05/17 05:20 Band Neutrophils # 1.0 K/mm3 05/05/17 05:20 Lymphocytes # (Manual) 0.3 K/mm3 (1.2-5.4) L 05/05/17 05:20 Abs React Lymphs (Man) 0.0 K/mm3 05/05/17 05:20 Monocytes # (Manual) 1.5 K/mm3 (0.0-0.8) H 05/05/17 05:20 Eosinophils # (Manual) 0.0 K/mm3 (0.0-0.4) 05/05/17 05:20 Basophils # (Manual) 0.0 K/mm3 (0.0-0.1) 05/05/17 05:20 Metamyelocytes # 0.2 K/mm3 05/05/17 05:20 Myelocytes # 0.0 K/mm3 05/05/17 05:20 Promyelocytes # 0.0 K/mm3 05/05/17 05:20 Blast Cells # 0.0 K/mm3 05/05/17 05:20 WBC Morphology Not Reportable 05/05/17 05:20 Hypersegmented Neuts Not Reportable 05/05/17 05:20 Hyposegmented Neuts Not Reportable 05/05/17 05:20 Hypogranular Neuts Not Reportable 05/05/17 05:20 Smudge Cells Not Reportable 05/05/17 05:20 Toxic Granulation Not Reportable 05/05/17 05:20 Toxic Vacuolation Not Reportable 05/05/17 05:20 Dohle Bodies Not Reportable 05/05/17 05:20 Pelger-Huet Anomaly Not Reportable 05/05/17 05:20 Neisha Rods Not Reportable 05/05/17 05:20 Platelet Estimate Consistent w auto 05/05/17 05:20 Clumped Platelets Not Reportable 05/05/17 05:20 Plt Clumps, EDTA Not Reportable 05/05/17 05:20 Large Platelets Not Reportable 05/05/17 05:20 Giant Platelets Not Reportable 05/05/17 05:20 Platelet Satelliting Not Reportable 05/05/17 05:20 Plt Morphology Comment Not Reportable 05/05/17 05:20 RBC Morphology Not Reportable 05/05/17 05:20 Dimorphic RBCs Not Reportable 05/05/17 05:20 Polychromasia Not Reportable 05/05/17 05:20 Hypochromasia Not Reportable 05/05/17 05:20 Poikilocytosis Not Reportable 05/05/17 05:20 Anisocytosis 1+ 05/05/17 05:20 Microcytosis Not Reportable 05/05/17 05:20 Macrocytosis Not Reportable 05/05/17 05:20 Spherocytes Not Reportable 05/05/17 05:20 Pappenheimer Bodies Not Reportable 05/05/17 05:20 Sickle Cells Not Reportable 05/05/17 05:20 Target Cells Not Reportable 05/05/17 05:20 Tear Drop Cells Not Reportable 05/05/17 05:20 Ovalocytes 1+ 05/05/17 05:20 Helmet Cells Not Reportable 05/05/17 05:20 [place] Bodies Not Reportable 05/05/17 05:20 [place] Rings Not Reportable 05/05/17 05:20 [place] Cells 1+ 05/05/17 05:20 Bite Cells Not Reportable 05/05/17 05:20 Crenated Cell Not Reportable 05/05/17 05:20 Elliptocytes Not Reportable 05/05/17 05:20 Acanthocytes (Spur) Not Reportable 05/05/17 05:20 Rouleaux Not Reportable 05/05/17 05:20 Hemoglobin C Crystals Not Reportable 05/05/17 05:20 Schistocytes Not Reportable 05/05/17 05:20 Malaria parasites Not Reportable 05/05/17 05:20 Herve Bodies Not Reportable 05/05/17 05:20 Hem Pathologist Commnt No 05/05/17 05:20 D-Dimer 8441.57 ng/mlDDU (0-234) H 05/04/17 Unknown Sodium 142 mmol/L (137-145) 05/05/17 05:20 Potassium 4.2 mmol/L (3.6-5.0) D 05/05/17 05:20 Chloride 106.5 mmol/L (98-107) 05/05/17 05:20 Carbon Dioxide 9 mmol/L (22-30) L* 05/05/17 05:20 Anion Gap 31 mmol/L 05/05/17 05:20 BUN 53 mg/dL (7-17) H 05/05/17 05:20 Creatinine 5.4 mg/dL (0.7-1.2) H 05/05/17 05:20 Estimated GFR 10 ml/min 05/05/17 05:20 BUN/Creatinine Ratio 10 % 05/05/17 05:20 Glucose 67 mg/dL (65-100) 05/05/17 05:20 POC Glucose 75 (70-105) 05/04/17 18:31 Lactic Acid 0.40 mmol/L (0.7-2.0) L 05/04/17 Unknown Calcium 6.1 mg/dL (8.4-10.2) L D 05/05/17 05:20 Magnesium 1.70 mg/dL (1.7-2.3) 05/04/17 18:39 Total Bilirubin 0.20 mg/dL (0.1-1.2) 05/04/17 18:39 AST 11 units/L (5-40) 05/04/17 18:39 ALT 5 units/L (7-56) L 05/04/17 18:39 Alkaline Phosphatase 32 units/L (35-129) L 05/04/17 18:39 Total Creatine Kinase 346 units/L (30-135) H 05/05/17 05:20 CK-MB (CK-2) 8.2 ng/mL (0.0-4.0) H 05/05/17 05:20 CK-MB (CK-2) Rel Index 2.3 (0-4) 05/05/17 05:20 Troponin T 0.027 ng/mL (0.00-0.029) 05/05/17 05:20 Total Protein 5.4 g/dL (6.3-8.2) L 05/04/17 18:39 Albumin 3.0 g/dL (3.9-5) L 05/04/17 18:39 Albumin/Globulin Ratio 1.3 % 05/04/17 18:39 Triglycerides 149 mg/dL (2-149) 05/04/17 18:55 Cholesterol 185 mg/dL (50-199) 05/04/17 18:55 LDL Cholesterol Direct 103 mg/dL (50-130) 05/04/17 18:55 HDL Cholesterol 53 mg/dL (40-59) 05/04/17 18:55 Cholesterol/HDL Ratio 3.49 % 05/04/17 18:55 TSH 1.780 mlU/mL (0.270-4.200) 05/04/17 18:39 Urine Color Carol (Yellow) 05/04/17 02:20 Urine Turbidity Clear (Clear) 05/04/17 02:20 Urine pH 5.0 (5.0-7.0) 05/04/17 02:20 Ur Specific [place] 1.018 (1.003-1.030) 05/04/17 02:20 Urine Protein 30 mg/dl mg/dL (Negative) 05/04/17 02:20 Urine Glucose (UA) Neg mg/dL (Negative) 05/04/17 02:20 Urine Ketones Tr mg/dL (Negative) 05/04/17 02:20 Urine Blood Lg (Negative) 05/04/17 02:20 Urine Nitrite Neg (Negative) 05/04/17 02:20 Urine Bilirubin Neg (Negative) 05/04/17 02:20 Urine Urobilinogen < 2.0 mg/dL (<2.0) 05/04/17 02:20 Ur Leukocyte Esterase Sm (Negative) 05/04/17 02:20 Urine WBC (Auto) 100.0 /HPF (0.0-6.0) H 05/04/17 02:20 Urine RBC (Auto) 44.0 /HPF (0.0-6.0) 05/04/17 02:20 U Epithel Cells (Auto) 2.0 /HPF (0-13.0) 05/04/17 02:20 Urine Bacteria (Auto) 1+ /HPF (Negative) 05/04/17 02:20 Urine Mucus Few /HPF 05/04/17 02:20 Salicylates 0.3 mg/dL (2.8-20.0) L 05/04/17 18:39 Urine Opiates Screen Presumptive negative 05/04/17 02:20 Urine Methadone Screen Presumptive negative 05/04/17 02:20 Acetaminophen < 15.0 ug/mL (10.0-30.0) 05/04/17 18:39 Ur Barbiturates Screen Presumptive negative 05/04/17 02:20 Ur Phencyclidine Scrn Presumptive negative 05/04/17 02:20 Ur Amphetamines Screen Presumptive negative 05/04/17 02:20 U Benzodiazepines Scrn Presumptive negative 05/04/17 02:20 Urine Cocaine Screen Presumptive negative 05/04/17 02:20 U Marijuana (THC) Screen Presumptive negative 05/04/17 02:20 Drugs of Abuse Note Disclamer 05/04/17 02:20 Plasma/Serum Alcohol < 0.01 gm% (0-0.07) 05/04/17 18:39 - Imaging and Cardiology Chest x-ray: report reviewed (Central venous catheter terminates in region of mid SVC, neg pneumothorax) CT scan - abdomen: report reviewed (colitis, ascitis, emphysematous changes in both lung bases) CT Scan - head: report reviewed (Mild small vessel ischemic changes, no acute abnormalities) CT scan - pelvis: report reviewed (hysterectomy)
[2017-05-05] MEDS ORDERED: NACL 0.9% 500 ML 500 ML ONE (10:32)
[2017-05-05] MEDS ORDERED: NACL 0.9% 500 ML 500 ML IV PRN (10:47)
[2017-05-05] MEDS ORDERED: SODIUM BICARBONATE IV ONE ×2 (11:00)
[2017-05-05] MEDS ORDERED: NACL 0.9% IV ONE (11:00)
--- NOTE | 2017-05-05 11:01 | Consultation ---
History of Present Illness Consult date: 05/05/17 Reason for consult: dyspnea, other (hypotension, AGE) History of present illness: 60-year-old female admitted to the ICU with history of severe diarrhea and weakness and near syncope episode. Patient reports history of diarrhea episodes , mostly watery for 1 week prior to admission. She had vomited 1 a few days ago. She denies any fever. Denies any sick contacts. No bleeding reported. Related past medical history significant for prior episodes of GI bleeding 1. This was years ago and etiology is not clear to the patient. On admission she was noted to be hypotensive, was given IV fluids of 5 to 7 L by now. MAP was still low and she was initiated on pressors. Central line has been placed but no CVP available at this time Past History Past Medical History: COPD, other (GI bleeding) Medications and Allergies Allergies Allergy/AdvReac Type Severity Reaction Status Date / Time No Known Allergies Allergy Verified 05/23/15 12:02 Home Medications Medication Instructions Recorded Confirmed Last Taken Type Acetaminophen [Acetaminophen TAB] 650 mg PO Q4H PRN #30 tablet 12/24/1603/14/17 08:00 Rx Arformoterol Nebu [Brovana Nebu] 15 mcg IH Q12HRT #1 ml 03/19/17 Unknown Rx Aspirin [Aspirin BABY CHEW TAB] 81 mg PO QDAY #30 tab.chew 03/19/17 Unknown Rx Famotidine [Pepcid] 20 mg PO BID #60 tablet 03/19/17 Unknown Rx Hydrochlorothiazide [HCTZ] 12.5 mg PO QDAY #30 tablet 03/19/17 Unknown Rx Ipratropium/Albuterol Sulfate 1 ampul IH TIDRT #30 ampul.neb 03/19/17 Unknown Rx [DUONEB *Not for PRN Use*] Lisinopril [Zestril] 40 mg PO QDAY #30 tablet 03/19/17 Unknown Rx guaiFENesin ER [Mucinex ER] 600 mg PO BID #10 tablet 03/19/17 Unknown Rx predniSONE [Deltasone] 20 mg PO QDAY #20 tab 03/19/17 Unknown Rx Active Meds: Active Medications Acetaminophen (Tylenol) 650 mg PO Q4H PRN PRN Reason: Pain MILD(1-3)/Fever >100.5/KHOURY Albuterol/Ipratropium (Duoneb *Not For Prn Use*) 1 ampul IH TIDRT [facility] Last Admin: 05/05/17 09:57 Dose: 1 ampul Bisacodyl (Dulcolax) 10 mg VT QDAY PRN PRN Reason: Constipation unrelieved by MOM Hydrocortisone Acetate (Proctosol-Hc) 1 applic VT Q8H PRN PRN Reason: Hemorrhoids Norepinephrine 8 mg/ Sodium (Chloride) 250 mls @ 3.75 mls/hr IV TITR DUNG; 2 MCG /MIN PRN Reason: Protocol Last Titration: 05/05/17 07:32 Dose: 30 mcg/min, 56.25 mls/hr Sodium Chloride (Nacl 0.9% 1000 Ml) 1,000 mls @ 150 mls/hr IV DIRECT [facility] Last Admin: 05/05/17 08:28 Dose: 150 mls/hr Metronidazole (Flagyl 500 Mg/100 Ml) 500 mg in 100 mls @ 100 mls/hr IV Q8HR [facility] Last Admin: 05/05/17 06:37 Dose: 100 mls/hr Levofloxacin/Dextrose (Levaquin 500mg/100ml) 500 mg in 100 mls @ 100 mls/hr IV Q48H DUNG PRN Reason: Protocol Vasopressin 20 unit/ Sodium (Chloride) 101 mls @ 9.09 mls/hr IV TITR DUNG; 0.03 UNITS/MIN PRN Reason: Protocol Last Admin: 05/05/17 08:15 Dose: 0.03 units/min, 9.09 mls/hr Sodium Chloride (Nacl 0.9% 500 Ml) 500 mls @ 10 mls/hr IV PRN PRN PRN Reason: FOR CVP Sodium Bicarbonate 50 meq/ (Sodium Chloride) 550 mls @ 183.333 mls/hr IV ONCE ONE Stop: 05/05/17 13:59 Magnesium Hydroxide (Milk Of Magnesia) 30 ml PO Q4H PRN PRN Reason: Constipation Ondansetron HCl (Zofran) 4 mg IV Q4H PRN PRN Reason: N/V unrelieved by Reglan Sodium Bicarbonate (Sodium Bicarbonate) 50 meq IV ONCE ONE Stop: 05/05/17 11:01 Vancomycin HCl (Vancomycin Pharmacy To Dose) 1 each IV PKCONSULT [facility] PRN Reason: Protocol Review of Systems Constitutional: weight loss, anorexia, fatigue, weakness, no sweats, no night sweats Ears, nose, mouth and throat: other (dry) Cardiovascular: lightheadedness, shortness of breath, no chest pain, no orthopnea, no palpitations, no edema Respiratory: shortness of breath, no cough, no hemoptysis Gastrointestinal: abdominal pain, nausea, vomiting, diarrhea, loss of appetite, no hematemesis, no coffee ground emesis, no BRBPR, no melena, no hematochezia Genitourinary Female: no menorrhagia Rectal: no bleeding Integumentary: no rash Neurological: no transient paralysis, no paralysis, no weakness, no parathesias , no vertigo Psychiatric: anxiety Hematologic/Lymphatic: no easy bruising, no easy bleeding, no lymphadenopathy, no lymphedema Physical Examination Vital signs: Vital Signs Pulse Resp 82 17 05/04/17 18:08 05/04/17 18:08 General appearance: alert, lethargic, other (mild distress) ENT: oropharynx dry Neck: supple, no lymphadenopathy, no JVD, other (right IJ line) Ascultation: Bilateral: clear Percussion: Bilateral: not dull Cardiovascular: regular rate and rhythm (tachycardic) Gastrointestinal: normoactive bowel sounds, tender (mild no rebound) Integumentary: normal Extremities: no cyanosis, no edema Musculoskeletal: no deformities, ROM normal normal mental status, non-focal exam, CN II-XII normal, motor strength normal and anxious Results - Laboratory Findings CBC and BMP: 05/05/17 05:20 05/05/17 05:20 PT/INR, D-dimer D-Dimer 8441.57 ng/mlDDU (0-234) H 05/04/17 Unknown Abnormal lab findings: Abnormal Labs 05/04/17 05/04/17 05/04/17 Unknown Unknown Unknown WBC RBC Hgb RDW Plt Count Seg Neuts % (Manual) Lymphocytes % (Manual) Seg Neutrophils # Man Lymphocytes # (Manual) Monocytes # (Manual) D-Dimer 8441.57 H Carbon Dioxide BUN Creatinine Lactic Acid 0.40 L Calcium Total Creatine Kinase 246 H CK-MB (CK-2) 6.2 H 05/04/17 05/05/17 05/05/17 Unknown 05:20 05:20 WBC 33.9 H RBC 3.39 L Hgb 9.3 L RDW 16.7 H Plt Count 712 H Seg Neuts % (Manual) 91.0 H Lymphocytes % (Manual) 1.0 L Seg Neutrophils # Man 30.8 H Lymphocytes # (Manual) 0.3 L Monocytes # (Manual) 1.5 H D-Dimer Carbon Dioxide 9 L* BUN 53 H Creatinine 5.4 H Lactic Acid 0.40 L Calcium 6.1 L D Total Creatine Kinase CK-MB (CK-2) 05/05/17 05:20 WBC RBC Hgb RDW Plt Count Seg Neuts % (Manual) Lymphocytes % (Manual) Seg Neutrophils # Man Lymphocytes # (Manual) Monocytes # (Manual) D-Dimer Carbon Dioxide BUN Creatinine Lactic Acid Calcium Total Creatine Kinase 346 H CK-MB (CK-2) 8.2 H - Diagnostic Findings Chest x-ray: report reviewed, image reviewed Assessment and Plan Shock. Possibly hypovolemic but ongoing sepsis component is also a possibility. Lactate however is low Sepsis secondary to GI source Acute gastroenteritis. Abdominal CT showing colitis, mild ascites COPD Metabolic acidosis. No ABGs available, needs further review. Recommendations Serial BP monitoring Keep MAP > 65 Monitor UO, keep > 30 cc/ hr Serial lactate levels q 6-8 hr x 4 If CVP is under 8, repeat NSS bolus 500 - 1000 cc as needed to keep CVP between 8 and 12, MAP > 65 Monitor urine output Stat ABGs. Continue the bicarbonate is pH <7.2 PRBC if Hgb < 7 monitor for any bleeding Stool OB Tapered down down pressors once blood pressure, urine output improves Continue oxygen support Check blood cultures Continue antibiotics and reassess with cultures Consider ID consult
[2017-05-05 11:05] LABS: ISTAT Base Excess -25; ISTAT HCO3 7.9; ISTAT PH 6.872 (7.35-7.45); ISTAT PO2 120 (80-105); ISTAT SO2 94; ISTAT TCO2 9
--- NOTE | 2017-05-05 11:41 | Gastroenterology Consultation ---
<ANSON GAFFNEY - Last Filed: 05/05/17 11:58> History of Present Illness - Reason for Consult Consult date: 05/05/17 colitis Requesting physician: OUSMANE SIN - History of Present Illness Patient is a 61 y/o female with PMH of HTN, HLD, COPD who presented to the ER with c/o diarrhea with watery stool x 1 week with associated N/V, abd cramping, weekness, and near syncope episode. Abd CT scan showed colitis. She was found to be hypotensive on admission and is currently in ICU being treated for sepsis/ shock on pressors. GI has been consulted for colitis. This am pt resting in bed , alert & oriented w/o acute distress. She reports having multiple BMs that were continous (too numerous to count) x 1 week of watery diarrhea with assocaited N/V and abd cramping. She reports seeing a scant amount of BRBPR x 1episode several days ago 2/2 hemorrhoids after a BM but none since that time. Nausea still present but vomiting resolved. Generalized abd cramping also still present. Diarrhea frequency is improving per pt to now approximately 2 BMs per day of watery non-bloody stool. No recent travel, abx therapy, or ill contacts. Denies fever, CP, dizziness, SOB, hematochezia, melena, constipation, or hematochezia. No previous colonoscopy. Past History Past Medical History: COPD, hypertension, hyperlipidemia, other (GI bleeding) Past Surgical History: hysterectomy Social history: lives with family Family history: hypertension Medications and Allergies Allergies Allergy/AdvReac Type Severity Reaction Status Date / Time No Known Allergies Allergy Verified 05/23/15 12:02 Home Medications Medication Instructions Recorded Confirmed Last Taken Type Acetaminophen [Acetaminophen TAB] 650 mg PO Q4H PRN #30 tablet 12/24/1603/14/17 08:00 Rx Arformoterol Nebu [Brovana Nebu] 15 mcg IH Q12HRT #1 ml 03/19/17 05/05/17 Unknown Rx Aspirin [Aspirin BABY CHEW TAB] 81 mg PO QDAY #30 tab.chew 03/19/17 05/05/17 Unknown Rx Famotidine [Pepcid] 20 mg PO BID #60 tablet 03/19/17 05/05/17 Unknown Rx Hydrochlorothiazide [HCTZ] 12.5 mg PO QDAY #30 tablet 03/19/17 05/05/17 Unknown Rx Ipratropium/Albuterol Sulfate 1 ampul IH TIDRT #30 ampul.neb 03/19/17 05/05/17 Unknown Rx [DUONEB *Not for PRN Use*] Lisinopril [Zestril] 40 mg PO QDAY #30 tablet 03/19/17 05/05/17 Unknown Rx guaiFENesin ER [Mucinex ER] 600 mg PO BID #10 tablet 03/19/17 05/05/17 Unknown Rx Active Meds: Active Medications Acetaminophen (Tylenol) 650 mg PO Q4H PRN PRN Reason: Pain MILD(1-3)/Fever >100.5/KHOURY Albuterol/Ipratropium (Duoneb *Not For Prn Use*) 1 ampul IH TIDRT [facility] Last Admin: 05/05/17 09:57 Dose: 1 ampul Bisacodyl (Dulcolax) 10 mg UT QDAY PRN PRN Reason: Constipation unrelieved by MOM Hydrocortisone Acetate (Proctosol-Hc) 1 applic UT Q8H PRN PRN Reason: Hemorrhoids Norepinephrine 8 mg/ Sodium (Chloride) 250 mls @ 3.75 mls/hr IV TITR DUNG; 2 MCG /MIN PRN Reason: Protocol Last Admin: 05/05/17 11:22 Dose: 30 mcg/min, 56.25 mls/hr Sodium Chloride (Nacl 0.9% 1000 Ml) 1,000 mls @ 150 mls/hr IV DIRECT DUNG Last Admin: 05/05/17 08:28 Dose: 150 mls/hr Metronidazole (Flagyl 500 Mg/100 Ml) 500 mg in 100 mls @ 100 mls/hr IV Q8HR DUNG Last Admin: 05/05/17 06:37 Dose: 100 mls/hr Levofloxacin/Dextrose (Levaquin 500mg/100ml) 500 mg in 100 mls @ 100 mls/hr IV Q48H DUNG PRN Reason: Protocol Vasopressin 20 unit/ Sodium (Chloride) 101 mls @ 9.09 mls/hr IV TITR DUNG; 0.03 UNITS/MIN PRN Reason: Protocol Last Admin: 05/05/17 08:15 Dose: 0.03 units/min, 9.09 mls/hr Sodium Chloride (Nacl 0.9% 500 Ml) 500 mls @ 10 mls/hr IV PRN PRN PRN Reason: FOR CVP Last Admin: 05/05/17 11:17 Dose: 10 mls/hr Sodium Bicarbonate 50 meq/ (Sodium Chloride) 550 mls @ 183.333 mls/hr IV ONCE ONE Stop: 05/05/17 13:59 Magnesium Hydroxide (Milk Of Magnesia) 30 ml PO Q4H PRN PRN Reason: Constipation Ondansetron HCl (Zofran) 4 mg IV Q4H PRN PRN Reason: N/V unrelieved by Reglan Vancomycin HCl (Vancomycin Pharmacy To Dose) 1 each IV PKCONSULT DUNG PRN Reason: Protocol Review of Systems - Review of Systems All systems: negative Gastrointestinal: abdominal pain (cramping), nausea, diarrhea Exam - Constitutional Vital Signs: Temp Pulse Resp BP Pulse Ox 98.0 F 81 15 87/34 99 05/05/17 07:53 05/05/17 10:02 05/05/17 10:02 05/05/17 07:21 05/05/17 10:23 General appearance: no acute distress - EENT Eyes: PERRL, EOM intact ENT: hearing intact - Respiratory Respiratory: bilateral: diminished - Cardiovascular Rhythm: regular Heart Sounds: Present: S1 & S2 Extremities: No edema - Gastrointestinal General gastrointestinal: Present: soft, tender (generalized ), distended ( slightly), normal bowel sounds - Integumentary Integumentary: Present: warm, dry - Neurologic Neurological: alert and oriented x3 - Labs CBC & Chem 7: 05/05/17 05:20 05/05/17 05:20 Lab Results: Laboratory Results - last 24 hr 05/04/17 05/04/17 05/04/17 Unknown Unknown Unknown WBC RBC Hgb Hct MCV MCH MCHC RDW Plt Count Add Manual Diff Total Counted Seg Neutrophils % Seg Neuts % (Manual) Band Neutrophils % Lymphocytes % (Manual) Reactive Lymphs % (Man) Monocytes % (Manual) Eosinophils % (Manual) Basophils % (Manual) Metamyelocytes % Myelocytes % Promyelocytes % Blast Cells % Nucleated RBC % Seg Neutrophils # Man Band Neutrophils # Lymphocytes # (Manual) Abs React Lymphs (Man) Monocytes # (Manual) Eosinophils # (Manual) Basophils # (Manual) Metamyelocytes # Myelocytes # Promyelocytes # Blast Cells # WBC Morphology Hypersegmented Neuts Hyposegmented Neuts Hypogranular Neuts Smudge Cells Toxic Granulation Toxic Vacuolation Dohle Bodies Pelger-Huet Anomaly Neisha Rods Platelet Estimate Clumped Platelets Plt Clumps, EDTA Large Platelets Giant Platelets Platelet Satelliting Plt Morphology Comment RBC Morphology Dimorphic RBCs Polychromasia Hypochromasia Poikilocytosis Anisocytosis Microcytosis Macrocytosis Spherocytes Pappenheimer Bodies Sickle Cells Target Cells Tear Drop Cells Ovalocytes Helmet Cells Frankel-Mascot Bodies Faxon Rings [place] Cells Bite Cells Crenated Cell Elliptocytes Acanthocytes (Spur) Rouleaux Hemoglobin C Crystals Schistocytes Malaria parasites Herve Bodies Hem Pathologist Commnt D-Dimer 8441.57 H POC ABG pH POC ABG pCO2 POC ABG pO2 POC ABG HCO3 POC ABG Total CO2 POC ABG O2 Sat POC ABG Base Excess FiO2 Sodium Potassium Chloride Carbon Dioxide Anion Gap BUN Creatinine Estimated GFR BUN/Creatinine Ratio Glucose Lactic Acid 0.40 L Calcium Total Creatine Kinase 246 H CK-MB (CK-2) 6.2 H CK-MB (CK-2) Rel Index 2.5 Troponin T 0.027 05/04/17 05/05/17 05/05/17 Unknown 05:20 05:20 WBC 33.9 H RBC 3.39 L Hgb 9.3 L Hct 31.6 MCV 93 MCH 28 MCHC 30 RDW 16.7 H Plt Count 712 H Add Manual Diff Complete Total Counted 200 Seg Neutrophils % Mortgage Processor Seg Neuts % (Manual) 91.0 H Band Neutrophils % 3.0 Lymphocytes % (Manual) 1.0 L Reactive Lymphs % (Man) 0 Monocytes % (Manual) 4.5 Eosinophils % (Manual) 0 Basophils % (Manual) 0 Metamyelocytes % 0.5 Myelocytes % 0 Promyelocytes % 0 Blast Cells % 0 Nucleated RBC % Not Reportable Seg Neutrophils # Man 30.8 H Band Neutrophils # 1.0 Lymphocytes # (Manual) 0.3 L Abs React Lymphs (Man) 0.0 Monocytes # (Manual) 1.5 H Eosinophils # (Manual) 0.0 Basophils # (Manual) 0.0 Metamyelocytes # 0.2 Myelocytes # 0.0 Promyelocytes # 0.0 Blast Cells # 0.0 WBC Morphology Not Reportable Hypersegmented Neuts Not Reportable Hyposegmented Neuts Not Reportable Hypogranular Neuts Not Reportable Smudge Cells Not Reportable Toxic Granulation Not Reportable Toxic Vacuolation Not Reportable Dohle Bodies Not Reportable Pelger-Huet Anomaly Not Reportable Neisha Rods Not Reportable Platelet Estimate Consistent w auto Clumped Platelets Not Reportable Plt Clumps, EDTA Not Reportable Large Platelets Not Reportable Giant Platelets Not Reportable Platelet Satelliting Not Reportable Plt Morphology Comment Not Reportable RBC Morphology Not Reportable Dimorphic RBCs Not Reportable Polychromasia Not Reportable Hypochromasia Not Reportable Poikilocytosis Not Reportable Anisocytosis 1+ Microcytosis Not Reportable Macrocytosis Not Reportable Spherocytes Not Reportable Pappenheimer Bodies Not Reportable Sickle Cells Not Reportable Target Cells Not Reportable Tear Drop Cells Not Reportable Ovalocytes 1+ Helmet Cells Not Reportable Frankel-Mascot Bodies Not Reportable Faxon Rings Not Reportable [place]enton Cells 1+ Bite Cells Not Reportable Crenated Cell Not Reportable Elliptocytes Not Reportable Acanthocytes (Spur) Not Reportable Rouleaux Not Reportable Hemoglobin C Crystals Not Reportable Schistocytes Not Reportable Malaria parasites Not Reportable Herve Bodies Not Reportable Hem Pathologist Commnt No D-Dimer POC ABG pH POC ABG pCO2 POC ABG pO2 POC ABG HCO3 POC ABG Total CO2 POC ABG O2 Sat POC ABG Base Excess FiO2 Sodium 142 Potassium 4.2 D Chloride 106.5 Carbon Dioxide 9 L* Anion Gap 31 BUN 53 H Creatinine 5.4 H Estimated GFR 10 BUN/Creatinine Ratio 10 Glucose 67 Lactic Acid 0.40 L Calcium 6.1 L D Total Creatine Kinase CK-MB (CK-2) CK-MB (CK-2) Rel Index Troponin T 05/05/17 05/05/17 05:20 10:43 WBC RBC Hgb Hct MCV MCH MCHC RDW Plt Count Add Manual Diff Total Counted Seg Neutrophils % Seg Neuts % (Manual) Band Neutrophils % Lymphocytes % (Manual) Reactive Lymphs % (Man) Monocytes % (Manual) Eosinophils % (Manual) Basophils % (Manual) Metamyelocytes % Myelocytes % Promyelocytes % Blast Cells % Nucleated RBC % Seg Neutrophils # Man Band Neutrophils # Lymphocytes # (Manual) Abs React Lymphs (Man) Monocytes # (Manual) Eosinophils # (Manual) Basophils # (Manual) Metamyelocytes # Myelocytes # Promyelocytes # Blast Cells # WBC Morphology Hypersegmented Neuts Hyposegmented Neuts Hypogranular Neuts Smudge Cells Toxic Granulation Toxic Vacuolation Dohle Bodies Pelger-Huet Anomaly Neisha Rods Platelet Estimate Clumped Platelets Plt Clumps, EDTA Large Platelets Giant Platelets Platelet Satelliting Plt Morphology Comment RBC Morphology Dimorphic RBCs Polychromasia Hypochromasia Poikilocytosis Anisocytosis Microcytosis Macrocytosis Spherocytes Pappenheimer Bodies Sickle Cells Target Cells Tear Drop Cells Ovalocytes Helmet Cells Frankel-Mascot Bodies Faxon Rings [place] Cells Bite Cells Crenated Cell Elliptocytes Acanthocytes (Spur) Rouleaux Hemoglobin C Crystals Schistocytes Malaria parasites Herve Bodies Hem Pathologist Commnt D-Dimer POC ABG pH 6.872 L POC ABG pCO2 43.0 POC ABG pO2 120 H POC ABG HCO3 7.9 POC ABG Total CO2 9 POC ABG O2 Sat 94 POC ABG Base Excess -25 FiO2 3 Sodium Potassium Chloride Carbon Dioxide Anion Gap BUN Creatinine Estimated GFR BUN/Creatinine Ratio Glucose Lactic Acid Calcium Total Creatine Kinase 346 H CK-MB (CK-2) 8.2 H CK-MB (CK-2) Rel Index 2.3 Troponin T 0.027 Assessment and Plan 1.colitis 2.sepsis/shock 3.hypotension-currently on pressors 4.COPD -afebrile -WBC-33.9-trending up -ID has been consulted -Abd CT revealed generalized nonspecific colitis -stool studies pending -etiology unlcear- infectious vs inflammatory vs ischemic -continue Flagyl and Levaquin -continue supportive care -further recommendations to follow <CHAVO MCDONNELL R - Last Filed: 05/05/17 17:13> Medications and Allergies Active Meds: Active Medications Acetaminophen (Tylenol) 650 mg PO Q4H PRN PRN Reason: Pain MILD(1-3)/Fever >100.5/KHOURY Last Admin: 05/05/17 12:55 Dose: 650 mg Albuterol/Ipratropium (Duoneb *Not For Prn Use*) 1 ampul IH TIDRT [facility] Last Admin: 05/05/17 13:29 Dose: Not Given Bisacodyl (Dulcolax) 10 mg UT QDAY PRN PRN Reason: Constipation unrelieved by MOM Heparin Sodium (Porcine) (Heparin) 5,000 unit SUB-Q BID DUNG Last Admin: 05/05/17 15:38 Dose: 5,000 unit Hydrocortisone Acetate (Proctosol-Hc) 1 applic UT Q8H PRN PRN Reason: Hemorrhoids Last Admin: 05/05/17 12:42 Dose: 1 applic Norepinephrine 8 mg/ Sodium (Chloride) 250 mls @ 3.75 mls/hr IV TITR DUNG; 2 MCG /MIN PRN Reason: Protocol Last Admin: 05/05/17 16:18 Dose: 30 mcg/min, 56.25 mls/hr Metronidazole (Flagyl 500 Mg/100 Ml) 500 mg in 100 mls @ 100 mls/hr IV Q8HR DUNG Last Admin: 05/05/17 14:30 Dose: 100 mls/hr Vasopressin 20 unit/ Sodium (Chloride) 101 mls @ 9.09 mls/hr IV TITR DUNG; 0.03 UNITS/MIN PRN Reason: Protocol Last Admin: 05/05/17 08:15 Dose: 0.03 units/min, 9.09 mls/hr Sodium Chloride (Nacl 0.9% 500 Ml) 500 mls @ 10 mls/hr IV PRN PRN PRN Reason: FOR CVP Last Admin: 05/05/17 11:17 Dose: 10 mls/hr Sodium Bicarbonate 150 meq/ (Dextrose) 1,150 mls @ 100 mls/hr IV DIRECT DUNG Last Admin: 05/05/17 16:20 Dose: 100 mls/hr Piperacillin Sod/Tazobactam Sod (Zosyn/Ns 2.25 Gm/50ml) 2.25 gm in 50 mls @ 100 mls/hr IV Q12H DUNG Magnesium Hydroxide (Milk Of Magnesia) 30 ml PO Q4H PRN PRN Reason: Constipation Ondansetron HCl (Zofran) 4 mg IV Q4H PRN PRN Reason: N/V unrelieved by Pilar Vancomycin HCl (Vancomycin Pharmacy To Dose) 1 each IV PKCONSULT DUNG PRN Reason: Protocol Vancomycin HCl (Vancomycin Po) 250 mg PO Q6HR DUNG Exam - Constitutional Vital Signs: Temp Pulse Resp BP Pulse Ox 97.3 F L 88 16 101/39 100 05/05/17 15:43 05/05/17 16:00 05/05/17 16:00 05/05/17 16:00 05/05/17 16:00 - Labs CBC & Chem 7: 05/05/17 05:20 05/05/17 05:20 Lab Results: Laboratory Results - last 24 hr 05/04/17 05/04/17 05/04/17 Unknown Unknown Unknown WBC RBC Hgb Hct MCV MCH MCHC RDW Plt Count Add Manual Diff Total Counted Seg Neutrophils % Seg Neuts % (Manual) Band Neutrophils % Lymphocytes % (Manual) Reactive Lymphs % (Man) Monocytes % (Manual) Eosinophils % (Manual) Basophils % (Manual) Metamyelocytes % Myelocytes % Promyelocytes % Blast Cells % Nucleated RBC % Seg Neutrophils # Man Band Neutrophils # Lymphocytes # (Manual) Abs React Lymphs (Man) Monocytes # (Manual) Eosinophils # (Manual) Basophils # (Manual) Metamyelocytes # Myelocytes # Promyelocytes # Blast Cells # WBC Morphology Hypersegmented Neuts Hyposegmented Neuts Hypogranular Neuts Smudge Cells Toxic Granulation Toxic Vacuolation Dohle Bodies Pelger-Huet Anomaly Neisha Rods Platelet Estimate Clumped Platelets Plt Clumps, EDTA Large Platelets Giant Platelets Platelet Satelliting Plt Morphology Comment RBC Morphology Dimorphic RBCs Polychromasia Hypochromasia Poikilocytosis Anisocytosis Microcytosis Macrocytosis Spherocytes Pappenheimer Bodies Sickle Cells Target Cells Tear Drop Cells Ovalocytes Helmet Cells Frankel-Mascot Bodies Faxon Rings [place] Cells Bite Cells Crenated Cell Elliptocytes Acanthocytes (Spur) Rouleaux Hemoglobin C Crystals Schistocytes Malaria parasites Herve Bodies Hem Pathologist Commnt D-Dimer 8441.57 H POC ABG pH POC ABG pCO2 POC ABG pO2 POC ABG HCO3 POC ABG Total CO2 POC ABG O2 Sat POC ABG Base Excess FiO2 Sodium Potassium Chloride Carbon Dioxide Anion Gap BUN Creatinine Estimated GFR BUN/Creatinine Ratio Glucose Lactic Acid 0.40 L Calcium Total Creatine Kinase 246 H CK-MB (CK-2) 6.2 H CK-MB (CK-2) Rel Index 2.5 Troponin T 0.027 05/04/17 05/05/17 05/05/17 Unknown 05:20 05:20 WBC 33.9 H RBC 3.39 L Hgb 9.3 L Hct 31.6 MCV 93 MCH 28 MCHC 30 RDW 16.7 H Plt Count 712 H Add Manual Diff Complete Total Counted 200 Seg Neutrophils % Mortgage Processor Seg Neuts % (Manual) 91.0 H Band Neutrophils % 3.0 Lymphocytes % (Manual) 1.0 L Reactive Lymphs % (Man) 0 Monocytes % (Manual) 4.5 Eosinophils % (Manual) 0 Basophils % (Manual) 0 Metamyelocytes % 0.5 Myelocytes % 0 Promyelocytes % 0 Blast Cells % 0 Nucleated RBC % Not Reportable Seg Neutrophils # Man 30.8 H Band Neutrophils # 1.0 Lymphocytes # (Manual) 0.3 L Abs React Lymphs (Man) 0.0 Monocytes # (Manual) 1.5 H Eosinophils # (Manual) 0.0 Basophils # (Manual) 0.0 Metamyelocytes # 0.2 Myelocytes # 0.0 Promyelocytes # 0.0 Blast Cells # 0.0 WBC Morphology Not Reportable Hypersegmented Neuts Not Reportable Hyposegmented Neuts Not Reportable Hypogranular Neuts Not Reportable Smudge Cells Not Reportable Toxic Granulation Not Reportable Toxic Vacuolation Not Reportable Dohle Bodies Not Reportable Pelger-Huet Anomaly Not Reportable Neisha Rods Not Reportable Platelet Estimate Consistent w auto Clumped Platelets Not Reportable Plt Clumps, EDTA Not Reportable Large Platelets Not Reportable Giant Platelets Not Reportable Platelet Satelliting Not Reportable Plt Morphology Comment Not Reportable RBC Morphology Not Reportable Dimorphic RBCs Not Reportable Polychromasia Not Reportable Hypochromasia Not Reportable Poikilocytosis Not Reportable Anisocytosis 1+ Microcytosis Not Reportable Macrocytosis Not Reportable Spherocytes Not Reportable Pappenheimer Bodies Not Reportable Sickle Cells Not Reportable Target Cells Not Reportable Tear Drop Cells Not Reportable Ovalocytes 1+ Helmet Cells Not Reportable Frankel-Mascot Bodies Not Reportable Faxon Rings Not Reportable [place] Cells 1+ Bite Cells Not Reportable Crenated Cell Not Reportable Elliptocytes Not Reportable Acanthocytes (Spur) Not Reportable Rouleaux Not Reportable Hemoglobin C Crystals Not Reportable Schistocytes Not Reportable Malaria parasites Not Reportable Herve Bodies Not Reportable Hem Pathologist Commnt No D-Dimer POC ABG pH POC ABG pCO2 POC ABG pO2 POC ABG HCO3 POC ABG Total CO2 POC ABG O2 Sat POC ABG Base Excess FiO2 Sodium 142 Potassium 4.2 D Chloride 106.5 Carbon Dioxide 9 L* Anion Gap 31 BUN 53 H Creatinine 5.4 H Estimated GFR 10 BUN/Creatinine Ratio 10 Glucose 67 Lactic Acid 0.40 L Calcium 6.1 L D Total Creatine Kinase CK-MB (CK-2) CK-MB (CK-2) Rel Index Troponin T 05/05/17 05/05/17 05:20 10:43 WBC RBC Hgb Hct MCV MCH MCHC RDW Plt Count Add Manual Diff Total Counted Seg Neutrophils % Seg Neuts % (Manual) Band Neutrophils % Lymphocytes % (Manual) Reactive Lymphs % (Man) Monocytes % (Manual) Eosinophils % (Manual) Basophils % (Manual) Metamyelocytes % Myelocytes % Promyelocytes % Blast Cells % Nucleated RBC % Seg Neutrophils # Man Band Neutrophils # Lymphocytes # (Manual) Abs React Lymphs (Man) Monocytes # (Manual) Eosinophils # (Manual) Basophils # (Manual) Metamyelocytes # Myelocytes # Promyelocytes # Blast Cells # WBC Morphology Hypersegmented Neuts Hyposegmented Neuts Hypogranular Neuts Smudge Cells Toxic Granulation Toxic Vacuolation Dohle Bodies Pelger-Huet Anomaly Neisha Rods Platelet Estimate Clumped Platelets Plt Clumps, EDTA Large Platelets Giant Platelets Platelet Satelliting Plt Morphology Comment RBC Morphology Dimorphic RBCs Polychromasia Hypochromasia Poikilocytosis Anisocytosis Microcytosis Macrocytosis Spherocytes Pappenheimer Bodies Sickle Cells Target Cells Tear Drop Cells Ovalocytes Helmet Cells Frankel-Mascot Bodies Faxon Rings [place] Cells Bite Cells Crenated Cell Elliptocytes Acanthocytes (Spur) Rouleaux Hemoglobin C Crystals Schistocytes Malaria parasites Herve Bodies Hem Pathologist Commnt D-Dimer POC ABG pH 6.872 L POC ABG pCO2 43.0 POC ABG pO2 120 H POC ABG HCO3 7.9 POC ABG Total CO2 9 POC ABG O2 Sat 94 POC ABG Base Excess -25 FiO2 3 Sodium Potassium Chloride Carbon Dioxide Anion Gap BUN Creatinine Estimated GFR BUN/Creatinine Ratio Glucose Lactic Acid Calcium Total Creatine Kinase 346 H CK-MB (CK-2) 8.2 H CK-MB (CK-2) Rel Index 2.3 Troponin T 0.027 Assessment and Plan Prob infectious colitis, with persistent diarrhea leading to volume depletion, LUIS, hypotension, etc. Improving. Continue supportive care.
[2017-05-05] MEDS: PROCTOSOL-HC PR PRN ×2 (12:42→23:40)
[2017-05-05] MEDS ORDERED: NACL 0.9% 1000 ML 2,000 ML IV ONE (13:00)
--- NOTE | 2017-05-05 13:22 | Consultation ---
History of Present Illness - Reason for Consult Consult date: 05/05/17 (consult dictated) Past History Past Medical History: COPD, hypertension, hyperlipidemia, other (GI bleeding) Past Surgical History: hysterectomy Social history: lives with family Family history: hypertension Medications and Allergies Allergies Allergy/AdvReac Type Severity Reaction Status Date / Time No Known Allergies Allergy Verified 05/23/15 12:02 Home Medications Medication Instructions Recorded Confirmed Last Taken Type Acetaminophen [Acetaminophen TAB] 650 mg PO Q4H PRN #30 tablet 12/24/1603/14/17 08:00 Rx Arformoterol Nebu [Brovana Nebu] 15 mcg IH Q12HRT #1 ml 03/19/17 Unknown Rx Aspirin [Aspirin BABY CHEW TAB] 81 mg PO QDAY #30 tab.chew 03/19/17 Unknown Rx Famotidine [Pepcid] 20 mg PO BID #60 tablet 03/19/17 Unknown Rx Hydrochlorothiazide [HCTZ] 12.5 mg PO QDAY #30 tablet 03/19/17 Unknown Rx Ipratropium/Albuterol Sulfate 1 ampul IH TIDRT #30 ampul.neb 03/19/17 Unknown Rx [DUONEB *Not for PRN Use*] Lisinopril [Zestril] 40 mg PO QDAY #30 tablet 03/19/17 Unknown Rx guaiFENesin ER [Mucinex ER] 600 mg PO BID #10 tablet 03/19/17 Unknown Rx predniSONE [Deltasone] 20 mg PO QDAY #20 tab 03/19/17 Unknown Rx Active Meds: Active Medications Acetaminophen (Tylenol) 650 mg PO Q4H PRN PRN Reason: Pain MILD(1-3)/Fever >100.5/KHOURY Last Admin: 05/05/17 12:55 Dose: 650 mg Albuterol/Ipratropium (Duoneb *Not For Prn Use*) 1 ampul IH TIDRT DUNG Last Admin: 05/05/17 09:57 Dose: 1 ampul Bisacodyl (Dulcolax) 10 mg MN QDAY PRN PRN Reason: Constipation unrelieved by MOM Hydrocortisone Acetate (Proctosol-Hc) 1 applic MN Q8H PRN PRN Reason: Hemorrhoids Last Admin: 05/05/17 12:42 Dose: 1 applic Norepinephrine 8 mg/ Sodium (Chloride) 250 mls @ 3.75 mls/hr IV TITR DUNG; 2 MCG /MIN PRN Reason: Protocol Last Admin: 05/05/17 11:22 Dose: 30 mcg/min, 56.25 mls/hr Sodium Chloride (Nacl 0.9% 1000 Ml) 1,000 mls @ 150 mls/hr IV DIRECT DUNG Last Admin: 05/05/17 08:28 Dose: 150 mls/hr Metronidazole (Flagyl 500 Mg/100 Ml) 500 mg in 100 mls @ 100 mls/hr IV Q8HR DUNG Last Admin: 05/05/17 06:37 Dose: 100 mls/hr Levofloxacin/Dextrose (Levaquin 500mg/100ml) 500 mg in 100 mls @ 100 mls/hr IV Q48H DUNG PRN Reason: Protocol Vasopressin 20 unit/ Sodium (Chloride) 101 mls @ 9.09 mls/hr IV TITR DUNG; 0.03 UNITS/MIN PRN Reason: Protocol Last Admin: 05/05/17 08:15 Dose: 0.03 units/min, 9.09 mls/hr Sodium Chloride (Nacl 0.9% 500 Ml) 500 mls @ 10 mls/hr IV PRN PRN PRN Reason: FOR CVP Last Admin: 05/05/17 11:17 Dose: 10 mls/hr Sodium Bicarbonate 50 meq/ (Sodium Chloride) 550 mls @ 183.333 mls/hr IV ONCE ONE Stop: 05/05/17 13:59 Last Admin: 05/05/17 12:46 Dose: 183.333 mls/hr Sodium Chloride (Nacl 0.9% 1000 Ml) 2,000 mls @ 500 mls/hr IV BOLUS ONE Stop: 05/05/17 16:59 Last Admin: 05/05/17 13:03 Dose: 500 mls/hr Magnesium Hydroxide (Milk Of Magnesia) 30 ml PO Q4H PRN PRN Reason: Constipation Ondansetron HCl (Zofran) 4 mg IV Q4H PRN PRN Reason: N/V unrelieved by Binulan Vancomycin HCl (Vancomycin Pharmacy To Dose) 1 each IV PKCONSULT DUNG PRN Reason: Protocol Exam - Constitutional Vitals: Temp Pulse Resp BP Pulse Ox 97.4 F L 79 12 100/41 100 05/05/17 12:00 05/05/17 12:00 05/05/17 12:55 05/05/17 11:45 05/05/17 12:00 Results - Labs CBC & Chem 7: 05/05/17 05:20 05/05/17 05:20 Labs: Abnormal lab results 05/04/17 05/04/17 05/04/17 Range/Units Unknown Unknown Unknown WBC (4.5-11.0) K/mm3 RBC (3.65-5.03) M/mm3 Hgb (10.1-14.3) gm/dl RDW (13.2-15.2) % Plt Count (140-440) K/mm3 Seg Neuts % (Manual) (40.0-70.0) % Lymphocytes % (Manual) (13.4-35.0) % Seg Neutrophils # Man (1.8-7.7) K/mm3 Lymphocytes # (Manual) (1.2-5.4) K/mm3 Monocytes # (Manual) (0.0-0.8) K/mm3 D-Dimer 8441.57 H (0-234) ng/mlDDU POC ABG pH (7.35-7.45) POC ABG pO2 (80-105) Carbon Dioxide (22-30) mmol/L BUN (7-17) mg/dL Creatinine (0.7-1.2) mg/dL Lactic Acid 0.40 L (0.7-2.0) mmol/L Calcium (8.4-10.2) mg/dL Total Creatine Kinase 246 H (30-135) units/L CK-MB (CK-2) 6.2 H (0.0-4.0) ng/mL 05/04/17 05/05/17 05/05/17 Range/Units Unknown 05:20 05:20 WBC 33.9 H (4.5-11.0) K/mm3 RBC 3.39 L (3.65-5.03) M/mm3 Hgb 9.3 L (10.1-14.3) gm/dl RDW 16.7 H (13.2-15.2) % Plt Count 712 H (140-440) K/mm3 Seg Neuts % (Manual) 91.0 H (40.0-70.0) % Lymphocytes % (Manual) 1.0 L (13.4-35.0) % Seg Neutrophils # Man 30.8 H (1.8-7.7) K/mm3 Lymphocytes # (Manual) 0.3 L (1.2-5.4) K/mm3 Monocytes # (Manual) 1.5 H (0.0-0.8) K/mm3 D-Dimer (0-234) ng/mlDDU POC ABG pH (7.35-7.45) POC ABG pO2 (80-105) Carbon Dioxide 9 L* (22-30) mmol/L BUN 53 H (7-17) mg/dL Creatinine 5.4 H (0.7-1.2) mg/dL Lactic Acid 0.40 L (0.7-2.0) mmol/L Calcium 6.1 L D (8.4-10.2) mg/dL Total Creatine Kinase (30-135) units/L CK-MB (CK-2) (0.0-4.0) ng/mL 05/05/17 05/05/17 Range/Units 05:20 10:43 WBC (4.5-11.0) K/mm3 RBC (3.65-5.03) M/mm3 Hgb (10.1-14.3) gm/dl RDW (13.2-15.2) % Plt Count (140-440) K/mm3 Seg Neuts % (Manual) (40.0-70.0) % Lymphocytes % (Manual) (13.4-35.0) % Seg Neutrophils # Man (1.8-7.7) K/mm3 Lymphocytes # (Manual) (1.2-5.4) K/mm3 Monocytes # (Manual) (0.0-0.8) K/mm3 D-Dimer (0-234) ng/mlDDU POC ABG pH 6.872 L (7.35-7.45) POC ABG pO2 120 H (80-105) Carbon Dioxide (22-30) mmol/L BUN (7-17) mg/dL Creatinine (0.7-1.2) mg/dL Lactic Acid (0.7-2.0) mmol/L Calcium (8.4-10.2) mg/dL Total Creatine Kinase 346 H (30-135) units/L CK-MB (CK-2) 8.2 H (0.0-4.0) ng/mL
[2017-05-05] MEDS ORDERED: ZOSYN/NS 4.5GM/100ML 4.5 GM/100 ML VIAL IV SCH (15:00)
[2017-05-05] MEDS: HEPARIN SUB-Q SCH ×2 (15:38→23:29)
[2017-05-05] MEDS ORDERED: SODIUM BICARBONATE 50 MEQ in NACL 0.9% 1000 ML 1,000 ML IV SCH (16:00)
[2017-05-05] MEDS: SODIUM BICARBONATE 150 MEQ in D5W 1,000 ML IV SCH (16:20)
[2017-05-05 17:29] LABS: Potassium, Urine 3.67 mmol/L
[2017-05-05] MEDS: ZOSYN/NS 2.25 GM/50ML 2.25 GM/50 ML BAG IV SCH (17:31)
[2017-05-05 18:27] LABS: Hemoglobin 8.8 gm/dl (10.1-14.3)
[2017-05-05 18:34] LABS: Magnesium 1.2 mg/dL (1.7-2.3); Phosphorous 6.2 mg/dL (2.5-4.5)
[2017-05-05] MEDS: VANCOMYCIN PO PO SCH (20:07)
[2017-05-05 21:37] LABS: Hematocrit 29.8 % (30.3-42.9)
[2017-05-05] MEDS ORDERED: DILAUDID IV ONE (23:27)
[2017-05-06] MEDS: VANCOMYCIN PO PO SCH ×4 (00:22→17:28)
[2017-05-06] MEDS: LEVOPHED 8 MG in NACL 0.9% 250ML 242 ML IV SCH ×5 (01:54→23:40)
[2017-05-06] MEDS: ZOSYN/NS 2.25 GM/50ML 2.25 GM/50 ML BAG IV SCH (04:01)
[2017-05-06] MEDS: SODIUM BICARBONATE 150 MEQ in D5W 1,000 ML IV SCH (04:01)
--- NOTE | 2017-05-06 04:35 | Consultation ---
RENAL CONSULT REASON FOR CONSULTATION: Acute renal failure and metabolic acidosis. HISTORY OF PRESENT ILLNESS: This 61-year-old -Thai female with history of hypertension, COPD, who was brought to the Emergency Room for generalized weakness and diarrhea for 1 week. In the ER, the patient was noted to have blood pressure of 79/39, pulse 87, afebrile. WBC count 24.3, hemoglobin 10.9, BUN 53, creatinine 5.4, glucose 67. Today on 05/05/2017, pO2 is noted to be 9, BUN 53, creatinine 5.4, calcium 6.1, albumin 3.0. Urinalysis showed pyuria. Urine WBC count of 100. REVIEW OF SYSTEMS: The patient states that she has been having diarrhea for the past 1 week and her hemorrhoids are acting up now. She says that she vomited once or twice. She was taking her lisinopril, hydrochlorothiazide and amlodipine till day before yesterday. The patient denies having GI bleeding. No previous history of kidney failure. PAST MEDICAL HISTORY: Hypertension, COPD, hyperlipidemia, status post hysterectomy. FAMILY HISTORY: No family history of kidney failure. PERSONAL HISTORY: Denies smoking, alcohol, or drug abuse. REVIEW OF SYSTEMS: Complains of generalized weakness and tiredness. Denies chest pain or shortness of breath or abdominal pain. Denies GI bleeding. Denies dysuria or hematuria, not urinating much. Other review of systems reviewed and negative. PHYSICAL EXAMINATION: VITAL SIGNS: Acutely ill-looking thin built female, not in acute distress. VITAL SIGNS: Blood pressure 107/41, pulse 89, afebrile. HEENT: Normocephalic. Eyes: Pupils reactive. Conjunctivae pale. Oral mucosa, tongue and lips are dry. NECK: Supple, no JVD, no thyroid enlargement. LUNGS: Clear. HEART: S1, S2 regular. A 2/6 systolic murmur along the left sternal border. ABDOMEN: Soft, bowel sounds present, nontender. No masses palpable. EXTREMITIES: No significant edema. SKIN: Skin turgor poor. DIAGNOSTIC DATA: WBC 33.9, hemoglobin 9.3, hematocrit 31.6, platelets 712. Sodium 142, potassium 4.2, chloride 106, CO2 9, BUN 53, creatinine 5.4, calcium 6.1, CK 346. Albumin 3.0. Urinalysis, blood large, urine wbc's 100. ASSESSMENT AND PLAN: 1. Acute renal failure, most likely prerenal azotemia with acute enteritis with hypovolemic shock. 2. Metabolic acidosis, most likely secondary to diarrhea. 3. Anemia. 4. Leukocytosis. 5. Sepsis syndrome. 6. Hypocalcemia with hypoalbuminemia. 7. History of chronic obstructive pulmonary disease. 8. Acute enteritis/colitis. Maintain on pressure support. The patient is currently on 2 pressors, IV fluids with bicarbonate supplements as ordered. Check ionized calcium, magnesium and phosphorus levels and supplement. Adjust medications per renal function. CT scan of the abdomen was reported to have generalized nonspecific colitis/ascites, no hydronephrosis. Severe arthritic changes of the right hip with multilevel disk degeneration in the lumbar spine. Check stool studies and urine studies as ordered. Hold off on the antihypertensive medications. Monitor renal function with hydration. Thank you for the consultation. JOB# [id number] K/NTS
[2017-05-06 04:39] LABS: Hematocrit 30.2 % (30.3-42.9); Hemoglobin 9.3 gm/dl (10.1-14.3); Mean Corpuscular HGB Conc 31 % (30-34); Mean Corpuscular Hemoglobin 29 pg (28-32); Mean Corpuscular Volume 92 fl (79-97); Platelet Count 645 K/mm3 (140-440); Red Blood Count 3.27 M/mm3 (3.65-5.03); Red Cell Distribution Width 16.4 % (13.2-15.2)
[2017-05-06 04:45] LABS: White Blood Count 39.2 K/mm3 (4.5-11.0)
[2017-05-06] MEDS: Vasostrict 20 UNIT in NACL 0.9% 100 ML IV SCH ×2 (05:04→15:08)
[2017-05-06] MEDS: FLAGYL 500 MG/100 ML 500 MG/100 ML BAG IV SCH ×3 (05:31→17:23)
[2017-05-06 05:43] LABS: ISTAT Base Excess -16; ISTAT HCO3 14.4; ISTAT PCO2 54.8 (35-45); ISTAT PH 7.029 (7.35-7.45); ISTAT PO2 74 (80-105); ISTAT SO2 85; ISTAT TCO2 16
[2017-05-06 05:43] LABS: ISTAT Base Excess -17; ISTAT HCO3 13.8; ISTAT PCO2 48.6 (35-45); ISTAT PO2 43 (80-105); ISTAT SO2 59; ISTAT TCO2 15
[2017-05-06 07:23] LABS: Blastocytes % (Manual) 0 %
[2017-05-06 07:24] LABS: Anisocytosis 2+; Basophils % (Manual) 0 % (0.0-1.8); Burr Cells 1+; Diff Status Complete; Eosinophils % (Manual) 0 % (0.0-4.3); Hypochromasia 1+; Ovalocytes 1+; Platelet Estimate Consistent w Auto
[2017-05-06] MEDS: DUONEB *Not for PRN Use IH SCH ×4 (07:30→19:51)
[2017-05-06 08:36] LABS: Chloride 105.2 mmol/L (98-107); Potassium 3.5 mmol/L (3.6-5.0)
[2017-05-06 08:48] LABS: Calcium 5.8 mg/dL (8.4-10.2)
[2017-05-06] MEDS ORDERED: CALCIUM CHLORIDE IVP ONE (10:21)
--- NOTE | 2017-05-06 10:25 | Progress Note ---
Assessment and Plan Assessment and plan: 61-year-old AA female with a history of COPD, hypertension and hyperlipidemia who presents with a 1 week of nonstop watery diarrhea, abdominal pain and weakness. Septic shock/severe sepsis Continue IV pressors, continue IV fluids, continue antibiotics Infectious disease consult COPD Continue oxygen not in exacerbation Acute infectious colitis continue abx, contact isolation, fup stool c diff Metabolic acidosis due to sepsis, continue bicarb drip Acute Renal Failure due to ATN Nephrology consult appreciated -continue IVF, continue pressors The high probability of a clinically significant, sudden or life threatening deterioration of the [cv, pulmonary, Gi] system(s) required my full and direct attention, intervention and personal management. The aggregate critical care time was [44] minutes. This time is in addition to time spent performing reported procedures but includes the following: [] Data Review and interpretation [] Patient assessment and monitoring of vital signs [] Documentation [] Medication orders and management History Interval history: As for her nurse. Patient remains dependent on 2 pressors. She is moaning and groaning, complaining of abdominal pain. She states that she still has diarrhea but it's improved. Hospitalist Physical - Physical exam Narrative exam: General.: Appears well, no distress, nontoxic HEENT: Moist mucous membranes, extraocular muscles intact, no lymphadenopathy Neck: supple Cardiac: S1-S2 heard Lungs: clear to auscultation bilaterally Abdomen: soft , diffuse tenderness, nondistended, bowel sounds positive Extremities: no edema clubbing or cyanosis Skin: no rash or lesions Neurologic: no gross focal deficits Psych: appropriate behavior, appropriate mood, corporative, judgment intact - Constitutional Vitals: Temp Pulse Resp BP Pulse Ox 98.1 F 85 19 123/52 95 05/06/17 04:00 05/06/17 09:00 05/06/17 09:00 05/06/17 09:00 05/06/17 09:00 General appearance: Present: mild distress Results - Labs CBC & Chem 7: 05/07/17 10:18 05/07/17 12:36 Labs: Laboratory Last Values WBC 39.2 K/mm3 (4.5-11.0) H 05/06/17 Unknown RBC 3.27 M/mm3 (3.65-5.03) L 05/06/17 Unknown Hgb 9.3 gm/dl (10.1-14.3) L 05/06/17 Unknown Hct 30.2 % (30.3-42.9) L 05/06/17 Unknown MCV 92 fl (79-97) 05/06/17 Unknown MCH 29 pg (28-32) 05/06/17 Unknown MCHC 31 % (30-34) 05/06/17 Unknown RDW 16.4 % (13.2-15.2) H 05/06/17 Unknown Plt Count 645 K/mm3 (140-440) H 05/06/17 Unknown Add Manual Diff Complete 05/06/17 Unknown Total Counted 100 05/06/17 Unknown Seg Neutrophils % Personal Security Specialist 05/06/17 Unknown Seg Neuts % (Manual) 54.0 % (40.0-70.0) 05/06/17 Unknown Band Neutrophils % 30.0 % 05/06/17 Unknown Lymphocytes % (Manual) 11.0 % (13.4-35.0) L 05/06/17 Unknown Reactive Lymphs % (Man) 0 % 05/06/17 Unknown Monocytes % (Manual) 5.0 % (0.0-7.3) 05/06/17 Unknown Eosinophils % (Manual) 0 % (0.0-4.3) 05/06/17 Unknown Basophils % (Manual) 0 % (0.0-1.8) 05/06/17 Unknown Metamyelocytes % 0 % 05/06/17 Unknown Myelocytes % 0 % 05/06/17 Unknown Promyelocytes % 0 % 05/06/17 Unknown Blast Cells % 0 % 05/06/17 Unknown Nucleated RBC % Not Reportable 05/06/17 Unknown Seg Neutrophils # Man 21.2 K/mm3 (1.8-7.7) H 05/06/17 Unknown Band Neutrophils # 11.8 K/mm3 05/06/17 Unknown Lymphocytes # (Manual) 4.3 K/mm3 (1.2-5.4) 05/06/17 Unknown Abs React Lymphs (Man) 0.0 K/mm3 05/06/17 Unknown Monocytes # (Manual) 2.0 K/mm3 (0.0-0.8) H 05/06/17 Unknown Eosinophils # (Manual) 0.0 K/mm3 (0.0-0.4) 05/06/17 Unknown Basophils # (Manual) 0.0 K/mm3 (0.0-0.1) 05/06/17 Unknown Metamyelocytes # 0.0 K/mm3 05/06/17 Unknown Myelocytes # 0.0 K/mm3 05/06/17 Unknown Promyelocytes # 0.0 K/mm3 05/06/17 Unknown Blast Cells # 0.0 K/mm3 05/06/17 Unknown WBC Morphology Not Reportable 05/06/17 Unknown Hypersegmented Neuts Not Reportable 05/06/17 Unknown Hyposegmented Neuts Not Reportable 05/06/17 Unknown Hypogranular Neuts Not Reportable 05/06/17 Unknown Smudge Cells Not Reportable 05/06/17 Unknown Toxic Granulation Not Reportable 05/06/17 Unknown Toxic Vacuolation Not Reportable 05/06/17 Unknown Dohle Bodies Not Reportable 05/06/17 Unknown Pelger-Huet Anomaly Not Reportable 05/06/17 Unknown Neisha Rods Not Reportable 05/06/17 Unknown Platelet Estimate Consistent w auto 05/06/17 Unknown Clumped Platelets Not Reportable 05/06/17 Unknown Plt Clumps, EDTA Not Reportable 05/06/17 Unknown Large Platelets Not Reportable 05/06/17 Unknown Giant Platelets Not Reportable 05/06/17 Unknown Platelet Satelliting Not Reportable 05/06/17 Unknown Plt Morphology Comment Not Reportable 05/06/17 Unknown RBC Morphology Not Reportable 05/06/17 Unknown Dimorphic RBCs Not Reportable 05/06/17 Unknown Polychromasia Not Reportable 05/06/17 Unknown Hypochromasia 1+ 05/06/17 Unknown Poikilocytosis Not Reportable 05/06/17 Unknown Anisocytosis 2+ 05/06/17 Unknown Microcytosis Not Reportable 05/06/17 Unknown Macrocytosis Not Reportable 05/06/17 Unknown Spherocytes Not Reportable 05/06/17 Unknown Pappenheimer Bodies Not Reportable 05/06/17 Unknown Sickle Cells Not Reportable 05/06/17 Unknown Target Cells Not Reportable 05/06/17 Unknown Tear Drop Cells Not Reportable 05/06/17 Unknown Ovalocytes 1+ 05/06/17 Unknown Helmet Cells Not Reportable 05/06/17 Unknown [employer] Bodies Not Reportable 05/06/17 Unknown [place] Rings Not Reportable 05/06/17 Unknown [place] Cells 1+ 05/06/17 Unknown Bite Cells Not Reportable 05/06/17 Unknown Crenated Cell Not Reportable 05/06/17 Unknown Elliptocytes Not Reportable 05/06/17 Unknown Acanthocytes (Spur) Not Reportable 05/06/17 Unknown Rouleaux Not Reportable 05/06/17 Unknown Hemoglobin C Crystals Not Reportable 05/06/17 Unknown Schistocytes Not Reportable 05/06/17 Unknown Malaria parasites Not Reportable 05/06/17 Unknown Herve Bodies Not Reportable 05/06/17 Unknown Hem Pathologist Commnt No 05/06/17 Unknown D-Dimer 8441.57 ng/mlDDU (0-234) H 05/04/17 Unknown POC ABG pH 7.060 (7.35-7.45) L 05/06/17 05:23 POC ABG pCO2 48.6 (35-45) H 05/06/17 05:23 POC ABG pO2 43 (80-105) L 05/06/17 05:23 POC ABG HCO3 13.8 05/06/17 05:23 POC ABG Total CO2 15 05/06/17 05:23 POC ABG O2 Sat 59 05/06/17 05:23 POC ABG Base Excess -17 05/06/17 05:23 FiO2 28 % 05/06/17 05:23 Sodium 144 mmol/L (137-145) 05/06/17 07:55 Potassium 3.5 mmol/L (3.6-5.0) L 05/06/17 07:55 Chloride 105.2 mmol/L (98-107) 05/06/17 07:55 Carbon Dioxide 18 mmol/L (22-30) L D 05/06/17 07:55 Anion Gap 24 mmol/L 05/06/17 07:55 BUN 44 mg/dL (7-17) H 05/06/17 07:55 Creatinine 3.5 mg/dL (0.7-1.2) H 05/06/17 07:55 Estimated GFR 16 ml/min 05/06/17 07:55 BUN/Creatinine Ratio 13 % 05/06/17 07:55 Glucose 252 mg/dL (65-100) H 05/06/17 07:55 POC Glucose 75 (70-105) 05/04/17 18:31 Lactic Acid 0.40 mmol/L (0.7-2.0) L 05/04/17 Unknown Calcium 5.8 mg/dL (8.4-10.2) L* 05/06/17 07:55 Phosphorus 6.20 mg/dL (2.5-4.5) H 05/05/17 17:45 Magnesium 1.20 mg/dL (1.7-2.3) L 05/05/17 17:45 Total Bilirubin 0.20 mg/dL (0.1-1.2) 05/04/17 18:39 AST 11 units/L (5-40) 05/04/17 18:39 ALT 5 units/L (7-56) L 05/04/17 18:39 Alkaline Phosphatase 32 units/L (35-129) L 05/04/17 18:39 Total Creatine Kinase 346 units/L (30-135) H 05/05/17 05:20 CK-MB (CK-2) 8.2 ng/mL (0.0-4.0) H 05/05/17 05:20 CK-MB (CK-2) Rel Index 2.3 (0-4) 05/05/17 05:20 Troponin T 0.027 ng/mL (0.00-0.029) 05/05/17 05:20 Total Protein 5.4 g/dL (6.3-8.2) L 05/04/17 18:39 Albumin 3.0 g/dL (3.9-5) L 05/04/17 18:39 Albumin/Globulin Ratio 1.3 % 05/04/17 18:39 Triglycerides 149 mg/dL (2-149) 05/04/17 18:55 Cholesterol 185 mg/dL (50-199) 05/04/17 18:55 LDL Cholesterol Direct 103 mg/dL (50-130) 05/04/17 18:55 HDL Cholesterol 53 mg/dL (40-59) 05/04/17 18:55 Cholesterol/HDL Ratio 3.49 % 05/04/17 18:55 TSH 1.780 mlU/mL (0.270-4.200) 05/04/17 18:39 Urine Color Carol (Yellow) 05/04/17 02:20 Urine Turbidity Clear (Clear) 05/04/17 02:20 Urine pH 5.0 (5.0-7.0) 05/04/17 02:20 Ur Specific [place] 1.018 (1.003-1.030) 05/04/17 02:20 Urine Protein 30 mg/dl mg/dL (Negative) 05/04/17 02:20 Urine Glucose (UA) Neg mg/dL (Negative) 05/04/17 02:20 Urine Ketones Tr mg/dL (Negative) 05/04/17 02:20 Urine Blood Lg (Negative) 05/04/17 02:20 Urine Nitrite Neg (Negative) 05/04/17 02:20 Urine Bilirubin Neg (Negative) 05/04/17 02:20 Urine Urobilinogen < 2.0 mg/dL (<2.0) 05/04/17 02:20 Ur Leukocyte Esterase Sm (Negative) 05/04/17 02:20 Urine WBC (Auto) 100.0 /HPF (0.0-6.0) H 05/04/17 02:20 Urine RBC (Auto) 44.0 /HPF (0.0-6.0) 05/04/17 02:20 U Epithel Cells (Auto) 2.0 /HPF (0-13.0) 05/04/17 02:20 Urine Bacteria (Auto) 1+ /HPF (Negative) 05/04/17 02:20 Urine Mucus Few /HPF 05/04/17 02:20 Urine Creatinine 28.0 mg/dL (0.1-20.0) H 05/05/17 Unknown Urine Sodium 129 mmol/L 05/05/17 Unknown Urine Potassium 3.67 mmol/L 05/05/17 Unknown Urine Chloride 115.6 mmolL (110-250) 05/05/17 Unknown Salicylates 0.3 mg/dL (2.8-20.0) L 05/04/17 18:39 Urine Opiates Screen Presumptive negative 05/04/17 02:20 Urine Methadone Screen Presumptive negative 05/04/17 02:20 Acetaminophen < 15.0 ug/mL (10.0-30.0) 05/04/17 18:39 Ur Barbiturates Screen Presumptive negative 05/04/17 02:20 Ur Phencyclidine Scrn Presumptive negative 05/04/17 02:20 Ur Amphetamines Screen Presumptive negative 05/04/17 02:20 U Benzodiazepines Scrn Presumptive negative 05/04/17 02:20 Urine Cocaine Screen Presumptive negative 05/04/17 02:20 U Marijuana (THC) Screen Presumptive negative 05/04/17 02:20 Drugs of Abuse Note Disclamer 05/04/17 02:20 Plasma/Serum Alcohol < 0.01 gm% (0-0.07) 05/04/17 18:39 - Imaging and Cardiology CT scan - abdomen: image reviewed (colitis)
--- NOTE | 2017-05-06 11:33 | Progress Note ---
Assessment and Plan Shock. Possibly hypovolemic plus ongoing sepsis component is also a possibility. Lactate however is low Severe sepsis with MSOF, secondary to GI source,colitis. Appretiate GI,ID consults Acute gastroenteritis. Abdominal CT showing colitis, mild ascites COPD. Mild wheezing,need nebs, IV steroids Metabolic/respiratory acidosis,AG acidosis. Slow improve,ment in ABG's, HCO3 Hypocalcemia with hypoalbuminemia PHT on echo, severe. However, no JVD; may be rreactive to severe acidosis, sepsis. Also likely d dimer Anemia. Stool OB + A/C kidney injury. Nephrology following Recommendations Serial BP monitoring Keep MAP > 65 Monitor UO, keep > 30 cc/ hr Serial lactate levels until normal If CVP is under 8, repeat NSS bolus 250-500 cc as needed to keep CVP around 8 , in view of PHT echo finding f/u ABG later Continue the bicarbonate ,DC if HCO3 > 7.2 PRBC if Hgb < 7 monitor for any bleeding Tapered down down pressors , as tolerated, once CVP @ 8 Continue oxygen support. BPAP as needed but pt refusing.Hopefully no need for intubation, since breathing looks better Check blood cultures Continue antibiotics and reassess with cultures Unclear of benefit of anticoagulation with PHT finding, in view of risk with anemia, + GI bleeding HX and + OB. Subjective Date of service: 05/06/17 Interval history: Alert, coherent. Claims not with SOB. No cough.BM's x 1-2. Family at the bedside. Objective Vital Signs - 12hr 05/05/17 05/05/17 05/05/17 23:30 23:37 23:45 Temperature Pulse Rate 91 H 96 H Pulse Rate [ Anterior Bilateral Throughout] Respiratory 17 19 15 Rate Respiratory Rate [Anterior Bilateral Throughout] Respiratory Rate [Right Leg ] Respiratory Rate [denies] Blood Pressure 108/36 107/50 O2 Sat by Pulse 98 94 Oximetry 05/05/17 05/06/17 05/06/17 23:56 00:00 00:15 Temperature Pulse Rate 93 H 93 H 94 H Pulse Rate [ Anterior Bilateral Throughout] Respiratory 13 12 14 Rate Respiratory Rate [Anterior Bilateral Throughout] Respiratory Rate [Right Leg ] Respiratory Rate [denies] Blood Pressure 107/50 111/48 105/48 O2 Sat by Pulse 96 100 96 Oximetry 05/06/17 05/06/17 05/06/17 00:25 00:30 00:45 Temperature 98.0 F Pulse Rate 98 H 92 H Pulse Rate [ Anterior Bilateral Throughout] Respiratory 14 14 Rate Respiratory Rate [Anterior Bilateral Throughout] Respiratory Rate [Right Leg ] Respiratory Rate [denies] Blood Pressure 99/51 107/51 O2 Sat by Pulse 95 95 Oximetry 05/06/17 05/06/17 05/06/17 01:00 01:15 01:30 Temperature Pulse Rate 93 H 93 H 90 Pulse Rate [ Anterior Bilateral Throughout] Respiratory 16 15 16 Rate Respiratory Rate [Anterior Bilateral Throughout] Respiratory Rate [Right Leg ] Respiratory Rate [denies] Blood Pressure 103/53 111/51 110/52 O2 Sat by Pulse 95 94 94 Oximetry 05/06/17 05/06/17 05/06/17 01:45 02:00 02:42 Temperature Pulse Rate 94 H 90 Pulse Rate [ Anterior Bilateral Throughout] Respiratory 20 17 Rate Respiratory Rate [Anterior Bilateral Throughout] Respiratory Rate [Right Leg ] Respiratory Rate [denies] Blood Pressure 83/44 106/51 106/51 O2 Sat by Pulse 95 100 95 Oximetry 05/06/17 05/06/17 05/06/17 02:45 03:00 03:15 Temperature Pulse Rate 88 85 86 Pulse Rate [ Anterior Bilateral Throughout] Respiratory 18 18 18 Rate Respiratory Rate [Anterior Bilateral Throughout] Respiratory Rate [Right Leg ] Respiratory Rate [denies] Blood Pressure 99/46 92/46 100/46 O2 Sat by Pulse 95 96 95 Oximetry 05/06/17 05/06/17 05/06/17 03:30 03:45 04:00 Temperature 98.1 F Pulse Rate 86 86 91 H Pulse Rate [ Anterior Bilateral Throughout] Respiratory 19 16 20 Rate Respiratory Rate [Anterior Bilateral Throughout] Respiratory Rate [Right Leg ] Respiratory Rate [denies] Blood Pressure 106/47 102/46 103/47 O2 Sat by Pulse 95 95 97 Oximetry 05/06/17 05/06/17 05/06/17 04:15 04:30 04:45 Temperature Pulse Rate 90 83 85 Pulse Rate [ Anterior Bilateral Throughout] Respiratory 21 19 18 Rate Respiratory Rate [Anterior Bilateral Throughout] Respiratory Rate [Right Leg ] Respiratory Rate [denies] Blood Pressure 101/48 107/44 106/44 O2 Sat by Pulse 95 97 98 Oximetry 05/06/17 05/06/17 05/06/17 05:00 05:15 05:30 Temperature Pulse Rate 85 85 94 H Pulse Rate [ Anterior Bilateral Throughout] Respiratory 20 19 15 Rate Respiratory Rate [Anterior Bilateral Throughout] Respiratory Rate [Right Leg ] Respiratory Rate [denies] Blood Pressure 100/42 106/46 110/43 O2 Sat by Pulse 98 97 97 Oximetry 05/06/17 05/06/17 05/06/17 05:45 06:00 06:15 Temperature Pulse Rate 83 84 85 Pulse Rate [ Anterior Bilateral Throughout] Respiratory 18 19 22 Rate Respiratory Rate [Anterior Bilateral Throughout] Respiratory Rate [Right Leg ] Respiratory Rate [denies] Blood Pressure 108/44 98/46 108/46 O2 Sat by Pulse 96 98 98 Oximetry 05/06/17 05/06/17 05/06/17 06:30 06:45 07:00 Temperature Pulse Rate 79 81 78 Pulse Rate [ Anterior Bilateral Throughout] Respiratory 19 18 16 Rate Respiratory Rate [Anterior Bilateral Throughout] Respiratory Rate [Right Leg ] Respiratory Rate [denies] Blood Pressure 102/45 104/47 111/45 O2 Sat by Pulse 100 100 100 Oximetry 05/06/17 05/06/17 05/06/17 07:15 07:30 07:31 Temperature Pulse Rate 89 99 H Pulse Rate [ 96 H Anterior Bilateral Throughout] Respiratory 21 22 Rate Respiratory 18 Rate [Anterior Bilateral Throughout] Respiratory Rate [Right Leg ] Respiratory Rate [denies] Blood Pressure 105/51 110/51 O2 Sat by Pulse 100 94 100 Oximetry 05/06/17 05/06/17 05/06/17 07:45 07:49 07:55 Temperature Pulse Rate 82 Pulse Rate [ 94 H Anterior Bilateral Throughout] Respiratory 19 Rate Respiratory 18 Rate [Anterior Bilateral Throughout] Respiratory Rate [Right Leg ] Respiratory Rate [denies] Blood Pressure 100/52 O2 Sat by Pulse 96 100 Oximetry 05/06/17 05/06/17 05/06/17 08:00 08:15 08:30 Temperature Pulse Rate 83 84 87 Pulse Rate [ Anterior Bilateral Throughout] Respiratory 19 18 22 Rate Respiratory Rate [Anterior Bilateral Throughout] Respiratory Rate [Right Leg ] Respiratory Rate [denies] Blood Pressure 101/47 109/49 112/49 O2 Sat by Pulse 97 96 95 Oximetry 05/06/17 05/06/17 05/06/17 08:45 09:00 09:15 Temperature Pulse Rate 87 85 97 H Pulse Rate [ Anterior Bilateral Throughout] Respiratory 21 19 21 Rate Respiratory Rate [Anterior Bilateral Throughout] Respiratory Rate [Right Leg ] Respiratory Rate [denies] Blood Pressure 116/50 123/52 116/46 O2 Sat by Pulse 95 95 96 Oximetry 05/06/17 05/06/17 05/06/17 09:30 09:45 10:00 Temperature Pulse Rate 90 90 89 Pulse Rate [ Anterior Bilateral Throughout] Respiratory 21 17 21 Rate Respiratory Rate [Anterior Bilateral Throughout] Respiratory 22 Rate [Right Leg ] Respiratory 22 Rate [denies] Blood Pressure 117/53 77/39 122/56 O2 Sat by Pulse 95 96 Oximetry 05/06/17 05/06/17 10:15 10:30 Temperature Pulse Rate 90 88 Pulse Rate [ Anterior Bilateral Throughout] Respiratory 20 18 Rate Respiratory Rate [Anterior Bilateral Throughout] Respiratory Rate [Right Leg ] Respiratory Rate [denies] Blood Pressure 118/54 82/42 O2 Sat by Pulse 95 94 Oximetry Constitutional: alert, other (still looks ill but more responsive) ENT: oropharynx moist Neck: supple, no lymphadenopathy, no JVD, other (right IJ line) Ascultation: Bilateral: wheezes (mild) Percussion: Bilateral: not dull Cardiovascular: regular rate and rhythm Gastrointestinal: normoactive bowel sounds, tender (mild no rebound,some bloating) Integumentary: normal Extremities: no cyanosis, no edema Neurologic: normal mental status, non-focal exam, CN II-XII normal, motor strength normal and CBC and BMP: 05/06/17 Unknown 05/06/17 07:55 ABG, PT/INR, D-dimer: ABG POC ABG pH 7.060 (7.35-7.45) L 05/06/17 05:23 POC ABG pCO2 48.6 (35-45) H 05/06/17 05:23 POC ABG pO2 43 (80-105) L 05/06/17 05:23 POC ABG HCO3 13.8 05/06/17 05:23 POC ABG Total CO2 15 05/06/17 05:23 POC ABG O2 Sat 59 05/06/17 05:23 PT/INR, D-dimer D-Dimer 8441.57 ng/mlDDU (0-234) H 05/04/17 Unknown Abnormal lab findings: Abnormal Labs 05/04/17 05/04/17 05/04/17 Unknown Unknown Unknown WBC RBC Hgb Hct RDW Plt Count Seg Neuts % (Manual) Lymphocytes % (Manual) Seg Neutrophils # Man Lymphocytes # (Manual) Monocytes # (Manual) D-Dimer 8441.57 H POC ABG pH POC ABG pCO2 POC ABG pO2 Potassium Carbon Dioxide BUN Creatinine Glucose Lactic Acid 0.40 L Calcium Phosphorus Magnesium Total Creatine Kinase 246 H CK-MB (CK-2) 6.2 H Urine Creatinine 05/04/17 05/05/17 05/05/17 Unknown 05:20 05:20 WBC 33.9 H RBC 3.39 L Hgb 9.3 L Hct RDW 16.7 H Plt Count 712 H Seg Neuts % (Manual) 91.0 H Lymphocytes % (Manual) 1.0 L Seg Neutrophils # Man 30.8 H Lymphocytes # (Manual) 0.3 L Monocytes # (Manual) 1.5 H D-Dimer POC ABG pH POC ABG pCO2 POC ABG pO2 Potassium Carbon Dioxide 9 L* BUN 53 H Creatinine 5.4 H Glucose Lactic Acid 0.40 L Calcium 6.1 L D Phosphorus Magnesium Total Creatine Kinase CK-MB (CK-2) Urine Creatinine 05/05/17 05/05/17 05/05/17 05:20 10:43 17:45 WBC RBC Hgb 8.8 L Hct RDW Plt Count Seg Neuts % (Manual) Lymphocytes % (Manual) Seg Neutrophils # Man Lymphocytes # (Manual) Monocytes # (Manual) D-Dimer POC ABG pH 6.872 L POC ABG pCO2 POC ABG pO2 120 H Potassium Carbon Dioxide BUN Creatinine Glucose Lactic Acid Calcium Phosphorus Magnesium Total Creatine Kinase 346 H CK-MB (CK-2) 8.2 H Urine Creatinine 05/05/17 05/05/17 05/05/17 17:45 20:58 Unknown WBC RBC Hgb 9.0 L Hct 29.8 L RDW Plt Count Seg Neuts % (Manual) Lymphocytes % (Manual) Seg Neutrophils # Man Lymphocytes # (Manual) Monocytes # (Manual) D-Dimer POC ABG pH POC ABG pCO2 POC ABG pO2 Potassium Carbon Dioxide BUN Creatinine Glucose Lactic Acid Calcium Phosphorus 6.20 H Magnesium 1.20 L Total Creatine Kinase CK-MB (CK-2) Urine Creatinine 28.0 H 05/06/17 05/06/17 05/06/17 05:09 05:23 07:55 WBC RBC Hgb Hct RDW Plt Count Seg Neuts % (Manual) Lymphocytes % (Manual) Seg Neutrophils # Man Lymphocytes # (Manual) Monocytes # (Manual) D-Dimer POC ABG pH 7.029 L 7.060 L POC ABG pCO2 54.8 H 48.6 H POC ABG pO2 74 L 43 L Potassium 3.5 L Carbon Dioxide 18 L D BUN 44 H Creatinine 3.5 H Glucose 252 H Lactic Acid Calcium 5.8 L* Phosphorus Magnesium Total Creatine Kinase CK-MB (CK-2) Urine Creatinine 05/06/17 Unknown WBC 39.2 H RBC 3.27 L Hgb 9.3 L Hct 30.2 L RDW 16.4 H Plt Count 645 H Seg Neuts % (Manual) Lymphocytes % (Manual) 11.0 L Seg Neutrophils # Man 21.2 H Lymphocytes # (Manual) Monocytes # (Manual) 2.0 H D-Dimer POC ABG pH POC ABG pCO2 POC ABG pO2 Potassium Carbon Dioxide BUN Creatinine Glucose Lactic Acid Calcium Phosphorus Magnesium Total Creatine Kinase CK-MB (CK-2) Urine Creatinine
--- NOTE | 2017-05-06 11:42 | Consultation ---
History of Present Illness - Reason for Consult Consult date: 05/06/17 shock Requesting physician: RAOUL SANDS - History of Present Illness 61 years old female with history of hypertension, COPD, pulmonary HTN, admitted on 05/04/2017 due to one-week history of severe too numerous to count diarrheic stools. Patient reports that 3 weeks ago, she was admitted at [facility] for COPD exacerbation. Patient was on intravenous antibiotics during the hospital course. Patient denies any previous history of diarrhea or colitis. Patient reports that diarrhea was watery and multiple times a day. Patient denies any melena or hematemesis. Diarrhea was associated with crampy abdominal pain, 8 out of 10, diffuse, no radiation. In the emergency room, initial temperature was 98.8, heart rate 82, blood pressure 79/38. Initial white count was 24. Hemoglobin 10.9. Platelets 658. Creatinine was 6.5. Urinalysis shows small leukocyte esterase and 100 white blood cells. Chest x-ray showed COPD changes, no consolidation. CT of the abdomen showed colitis. Transthoracic echo shows severe pulmonary hypertension. In the ED, sat 89% RA, BP dropped further and did not respond to IVF. Patient was started on pressors. Microbiology: Blood cultures: 05/05 bgtd Urine cultures: Respiratory cultures: Wound cultures: Stool cultures: C diff 05/04 pending Current Antimicrobials: Zosyn Levaquin Vancomycin PO Metronidazole Previous Antimicrobials: Past History Past Medical History: COPD, hypertension, hyperlipidemia, other (GI bleeding) Past Surgical History: hysterectomy Social history: lives with family Family history: hypertension Medications and Allergies Allergies Allergy/AdvReac Type Severity Reaction Status Date / Time No Known Allergies Allergy Verified 05/23/15 12:02 Home Medications Medication Instructions Recorded Confirmed Last Taken Type Acetaminophen [Acetaminophen TAB] 650 mg PO Q4H PRN #30 tablet 12/24/1603/14/17 08:00 Rx Arformoterol Nebu [Brovana Nebu] 15 mcg IH Q12HRT #1 ml 03/19/17 05/05/17 Unknown Rx Aspirin [Aspirin BABY CHEW TAB] 81 mg PO QDAY #30 tab.chew 03/19/17 05/05/17 Unknown Rx Famotidine [Pepcid] 20 mg PO BID #60 tablet 03/19/17 05/05/17 Unknown Rx Hydrochlorothiazide [HCTZ] 12.5 mg PO QDAY #30 tablet 03/19/17 05/05/17 Unknown Rx Ipratropium/Albuterol Sulfate 1 ampul IH TIDRT #30 ampul.neb 03/19/17 05/05/17 Unknown Rx [DUONEB *Not for PRN Use*] Lisinopril [Zestril] 40 mg PO QDAY #30 tablet 03/19/17 05/05/17 Unknown Rx guaiFENesin ER [Mucinex ER] 600 mg PO BID #10 tablet 03/19/17 05/05/17 Unknown Rx Active Meds: Active Medications Acetaminophen (Tylenol) 650 mg PO Q4H PRN PRN Reason: Pain MILD(1-3)/Fever >100.5/KHOURY Last Admin: 05/05/17 12:55 Dose: 650 mg Albuterol/Ipratropium (Duoneb *Not For Prn Use*) 1 ampul IH Q4HRT DUNG Bisacodyl (Dulcolax) 10 mg [place] QDAY PRN PRN Reason: Constipation unrelieved by MOM Heparin Sodium (Porcine) (Heparin) 5,000 unit SUB-Q BID DUNG Last Admin: 05/05/17 23:29 Dose: 5,000 unit Hydrocortisone Acetate (Proctosol-Hc) 1 applic [place] Q8H PRN PRN Reason: Hemorrhoids Last Admin: 05/05/17 23:40 Dose: 1 applic Hydromorphone HCl (Dilaudid) 0.5 mg IV Q4H PRN PRN Reason: Pain , Severe (7-10) Norepinephrine 8 mg/ Sodium (Chloride) 250 mls @ 3.75 mls/hr IV TITR DUNG; 2 MCG /MIN PRN Reason: Protocol Last Admin: 05/06/17 06:11 Dose: 30 mcg/min, 56.25 mls/hr Metronidazole (Flagyl 500 Mg/100 Ml) 500 mg in 100 mls @ 100 mls/hr IV Q8HR DUNG Last Admin: 05/06/17 05:31 Dose: 100 mls/hr Vasopressin 20 unit/ Sodium (Chloride) 101 mls @ 9.09 mls/hr IV TITR DUNG; 0.03 UNITS/MIN PRN Reason: Protocol Last Admin: 05/06/17 05:04 Dose: 0.03 units/min, 9.09 mls/hr Sodium Chloride (Nacl 0.9% 500 Ml) 500 mls @ 10 mls/hr IV PRN PRN PRN Reason: FOR CVP Last Admin: 05/05/17 11:17 Dose: 10 mls/hr Sodium Bicarbonate 150 meq/ (Dextrose) 1,150 mls @ 100 mls/hr IV DIRECT DUNG Last Admin: 05/06/17 04:01 Dose: 100 mls/hr Calcium Chloride 1,000 mg/ (Sodium Chloride) 110 mls @ 660 mls/hr IV ONCE ONE Stop: 05/06/17 12:09 Magnesium Hydroxide (Milk Of Magnesia) 30 ml PO Q4H PRN PRN Reason: Constipation Methylprednisolone Sodium Succinate (Solu-Medrol) 60 mg IV Q8H DUNG Ondansetron HCl (Zofran) 4 mg IV Q4H PRN PRN Reason: N/V unrelieved by Reglan Vancomycin HCl (Vancomycin Po) 250 mg PO Q6HR DUNG Last Admin: 05/06/17 05:30 Dose: 250 mg Review of Systems ROS unobtainable: due to endotracheal tube, due to mental status All systems: negative (as per HPI rest negative) Physical Examination - Physical Exam Narrative exam: General appearance: Alert in NAD, conversant Eyes: anicteric sclerae, moist conjunctivae; no lid-lag; PERRLA HENT: Atraumatic; oropharynx clear vey dry oral mucosa Neck: Trachea midline; supple, no thyromegaly or lymphadenopathy Lungs: CTA, with normal respiratory effort and no intercostal retractions CV: tachy Abdomen: Soft, diffuse tenderness Extremities: No peripheral edema or extremity lymphadenopathy Skin: Normal temperature, turgor and texture; no rash, ulcers or subcutaneous nodules Psych: Appropriate affect, alert and oriented to person, place and time. Neuro: alert and oriented x 3. Moving all extermities Lines: right SC TLC - Constitutional Vitals: Vital Signs Temp Pulse Resp BP Pulse Ox 98.1 F 88 18 82/42 94 05/06/17 04:00 05/06/17 10:30 05/06/17 10:30 05/06/17 10:30 05/06/17 10:30 Temperature -Last 24 Hours Temperature 98.1 F Temperature 98.0 F Temperature 98.4 F Temperature 97.3 F Temperature 97.4 F Results - Labs CBC & Chem 7: 05/06/17 Unknown 05/06/17 07:55 Labs: Abnormal lab results 05/05/17 05/05/17 05/05/17 Range/Units 17:45 17:45 20:58 WBC (4.5-11.0) K/mm3 RBC (3.65-5.03) M/mm3 Hgb 8.8 L 9.0 L (10.1-14.3) gm/dl Hct 29.8 L (30.3-42.9) % RDW (13.2-15.2) % Plt Count (140-440) K/mm3 Lymphocytes % (Manual) (13.4-35.0) % Seg Neutrophils # Man (1.8-7.7) K/mm3 Monocytes # (Manual) (0.0-0.8) K/mm3 POC ABG pH (7.35-7.45) POC ABG pCO2 (35-45) POC ABG pO2 (80-105) Potassium (3.6-5.0) mmol/L Carbon Dioxide (22-30) mmol/L BUN (7-17) mg/dL Creatinine (0.7-1.2) mg/dL Glucose (65-100) mg/dL Calcium (8.4-10.2) mg/dL Phosphorus 6.20 H (2.5-4.5) mg/dL Magnesium 1.20 L (1.7-2.3) mg/dL Urine Creatinine (0.1-20.0) mg/dL 05/05/17 05/06/17 05/06/17 Range/Units Unknown 05:09 05:23 WBC (4.5-11.0) K/mm3 RBC (3.65-5.03) M/mm3 Hgb (10.1-14.3) gm/dl Hct (30.3-42.9) % RDW (13.2-15.2) % Plt Count (140-440) K/mm3 Lymphocytes % (Manual) (13.4-35.0) % Seg Neutrophils # Man (1.8-7.7) K/mm3 Monocytes # (Manual) (0.0-0.8) K/mm3 POC ABG pH 7.029 L 7.060 L (7.35-7.45) POC ABG pCO2 54.8 H 48.6 H (35-45) POC ABG pO2 74 L 43 L (80-105) Potassium (3.6-5.0) mmol/L Carbon Dioxide (22-30) mmol/L BUN (7-17) mg/dL Creatinine (0.7-1.2) mg/dL Glucose (65-100) mg/dL Calcium (8.4-10.2) mg/dL Phosphorus (2.5-4.5) mg/dL Magnesium (1.7-2.3) mg/dL Urine Creatinine 28.0 H (0.1-20.0) mg/dL 05/06/17 05/06/17 Range/Units 07:55 Unknown WBC 39.2 H (4.5-11.0) K/mm3 RBC 3.27 L (3.65-5.03) M/mm3 Hgb 9.3 L (10.1-14.3) gm/dl Hct 30.2 L (30.3-42.9) % RDW 16.4 H (13.2-15.2) % Plt Count 645 H (140-440) K/mm3 Lymphocytes % (Manual) 11.0 L (13.4-35.0) % Seg Neutrophils # Man 21.2 H (1.8-7.7) K/mm3 Monocytes # (Manual) 2.0 H (0.0-0.8) K/mm3 POC ABG pH (7.35-7.45) POC ABG pCO2 (35-45) POC ABG pO2 (80-105) Potassium 3.5 L (3.6-5.0) mmol/L Carbon Dioxide 18 L D (22-30) mmol/L BUN 44 H (7-17) mg/dL Creatinine 3.5 H (0.7-1.2) mg/dL Glucose 252 H (65-100) mg/dL Calcium 5.8 L* (8.4-10.2) mg/dL Phosphorus (2.5-4.5) mg/dL Magnesium (1.7-2.3) mg/dL Urine Creatinine (0.1-20.0) mg/dL Assessment and Plan Assessment: 1) Shock - multifactorial (hypovolemic/dehydration + septic): Present on admission, manifested by mild tachycardia, profound hypotension, leukocytosis. Septic componeny etiology most likely due to colitis +/- UTI. 2) Colitis: presumed C diff colitis, severe-recently exposed to broad spectrum abx. CT abd showed colitis. 3) UTI-mild ? reactive from colitis 4) LUIS 6) COPD Plan: -follow-up blood cultures, urine culture, C diff PCR -obtain procalcitonin, C-reactive protein (CRP) -stop zosyn, levaquin and IV vancomycin -continue PO vanco at 250 mg QID and IV flagyl to be increased to QID -KUB in the am Thank you Dr Elliott for your consultation, will follow up with you. Winifred Guerrero MD Infectious Diseases Specialist [facility] M [phone] O [phone]
[2017-05-06] MEDS ORDERED: CALCIUM CHLORIDE 1,000 MG in NACL 0.9% 100 ML IV ONE (12:00)
[2017-05-06] MEDS: DILAUDID IV PRN (12:43)
--- NOTE | 2017-05-06 13:00 | Progress Note ---
Assessment and Plan - Patient Problems (1) Hypotension Current Visit: Yes Status: Acute Qualifiers: Hypotension type: H Trimester: T Plan to address problem: hypovolemic/septic shock-maintain on pressure support. (2) Sepsis Current Visit: Yes Status: Acute Qualifiers: Sepsis type: S (3) Acute renal insufficiency Current Visit: Yes Status: Acute Plan to address problem: prerenal azotemia. Non oliguric, had urinary retention, S/P Castillo yesterday. Avoid nephrotoxic agents. Adjust meds per renal function. BUN/Cr slowly coming down. But clinical condition worsening. Pt has hypomagnesemia, Hypocalcemia, Hypokalemia---supplement. Consider stress dose steroids if ok with G.I/ ID (4) Hypocalcemia Current Visit: Yes Status: Acute (5) Metabolic acidosis Current Visit: Yes Status: Acute (6) Hypomagnesemia Current Visit: Yes Status: Acute (7) Altered mental status Current Visit: Yes Status: Acute Qualifiers: Altered mental status type: A Coma depth: C Coma timing: C (8) Diarrhea Current Visit: Yes Status: Acute Qualifiers: Diarrhea type: D (9) Acute respiratory failure Current Visit: Yes Status: Acute Qualifiers: Respiratory failure complication: R (10) Hypokalemia Current Visit: No Status: Acute (11) Anemia Current Visit: No Status: Chronic Qualifiers: Anemia type: A Iron deficiency anemia type: I Vitamin B12 deficiency anemia type: V Folate deficiency anemia type: F Bone marrow failure anemia type: B Hemolytic anemia type: H Other causes of anemia: O Chronic kidney disease stage: C Qualified Code(s): D63.8 - Anemia in other chronic diseases classified elsewhere (12) Hypoalbuminemia Current Visit: Yes Status: Acute (13) Leukocytosis Current Visit: No Status: Acute Qualifiers: Leukocytosis type: unspecified Qualified Code(s): D72.829 - Elevated white blood cell count, unspecified Subjective Date of service: 05/06/17 Interval history: pt is lethargic, acutely ill looking. Chart reviewed, discussed with pt's nurse. On 2 pressors for pressure support Objective - Vital Signs Vital signs: Vital Signs - 12hr 05/06/17 05/06/17 05/06/17 01:15 01:30 01:45 Temperature Pulse Rate 93 H 90 94 H Pulse Rate [ Anterior Bilateral Throughout] Respiratory 15 16 20 Rate Respiratory Rate [Anterior Bilateral Throughout] Respiratory Rate [Right Leg ] Respiratory Rate [denies] Blood Pressure 111/51 110/52 83/44 O2 Sat by Pulse 94 94 95 Oximetry 05/06/17 05/06/17 05/06/17 02:00 02:42 02:45 Temperature Pulse Rate 90 88 Pulse Rate [ Anterior Bilateral Throughout] Respiratory 17 18 Rate Respiratory Rate [Anterior Bilateral Throughout] Respiratory Rate [Right Leg ] Respiratory Rate [denies] Blood Pressure 106/51 106/51 99/46 O2 Sat by Pulse 100 95 95 Oximetry 05/06/17 05/06/17 05/06/17 03:00 03:15 03:30 Temperature Pulse Rate 85 86 86 Pulse Rate [ Anterior Bilateral Throughout] Respiratory 18 18 19 Rate Respiratory Rate [Anterior Bilateral Throughout] Respiratory Rate [Right Leg ] Respiratory Rate [denies] Blood Pressure 92/46 100/46 106/47 O2 Sat by Pulse 96 95 95 Oximetry 05/06/17 05/06/17 05/06/17 03:45 04:00 04:15 Temperature 98.1 F Pulse Rate 86 91 H 90 Pulse Rate [ Anterior Bilateral Throughout] Respiratory 16 20 21 Rate Respiratory Rate [Anterior Bilateral Throughout] Respiratory Rate [Right Leg ] Respiratory Rate [denies] Blood Pressure 102/46 103/47 101/48 O2 Sat by Pulse 95 97 95 Oximetry 05/06/17 05/06/17 05/06/17 04:30 04:45 05:00 Temperature Pulse Rate 83 85 85 Pulse Rate [ Anterior Bilateral Throughout] Respiratory 19 18 20 Rate Respiratory Rate [Anterior Bilateral Throughout] Respiratory Rate [Right Leg ] Respiratory Rate [denies] Blood Pressure 107/44 106/44 100/42 O2 Sat by Pulse 97 98 98 Oximetry 05/06/17 05/06/17 05/06/17 05:15 05:30 05:45 Temperature Pulse Rate 85 94 H 83 Pulse Rate [ Anterior Bilateral Throughout] Respiratory 19 15 18 Rate Respiratory Rate [Anterior Bilateral Throughout] Respiratory Rate [Right Leg ] Respiratory Rate [denies] Blood Pressure 106/46 110/43 108/44 O2 Sat by Pulse 97 97 96 Oximetry 05/06/17 05/06/17 05/06/17 06:00 06:15 06:30 Temperature Pulse Rate 84 85 79 Pulse Rate [ Anterior Bilateral Throughout] Respiratory 19 22 19 Rate Respiratory Rate [Anterior Bilateral Throughout] Respiratory Rate [Right Leg ] Respiratory Rate [denies] Blood Pressure 98/46 108/46 102/45 O2 Sat by Pulse 98 98 100 Oximetry 05/06/17 05/06/17 05/06/17 06:45 07:00 07:15 Temperature Pulse Rate 81 78 89 Pulse Rate [ Anterior Bilateral Throughout] Respiratory 18 16 21 Rate Respiratory Rate [Anterior Bilateral Throughout] Respiratory Rate [Right Leg ] Respiratory Rate [denies] Blood Pressure 104/47 111/45 105/51 O2 Sat by Pulse 100 100 100 Oximetry 05/06/17 05/06/17 05/06/17 07:30 07:31 07:45 Temperature Pulse Rate 99 H 82 Pulse Rate [ 96 H Anterior Bilateral Throughout] Respiratory 22 19 Rate Respiratory 18 Rate [Anterior Bilateral Throughout] Respiratory Rate [Right Leg ] Respiratory Rate [denies] Blood Pressure 110/51 100/52 O2 Sat by Pulse 94 100 96 Oximetry 05/06/17 05/06/17 05/06/17 07:49 07:55 08:00 Temperature Pulse Rate 83 Pulse Rate [ 94 H Anterior Bilateral Throughout] Respiratory 19 Rate Respiratory 18 Rate [Anterior Bilateral Throughout] Respiratory Rate [Right Leg ] Respiratory Rate [denies] Blood Pressure 101/47 O2 Sat by Pulse 100 97 Oximetry 05/06/17 05/06/17 05/06/17 08:15 08:30 08:45 Temperature Pulse Rate 84 87 87 Pulse Rate [ Anterior Bilateral Throughout] Respiratory 18 22 21 Rate Respiratory Rate [Anterior Bilateral Throughout] Respiratory Rate [Right Leg ] Respiratory Rate [denies] Blood Pressure 109/49 112/49 116/50 O2 Sat by Pulse 96 95 95 Oximetry 05/06/17 05/06/17 05/06/17 09:00 09:15 09:30 Temperature Pulse Rate 85 97 H 90 Pulse Rate [ Anterior Bilateral Throughout] Respiratory 19 21 21 Rate Respiratory Rate [Anterior Bilateral Throughout] Respiratory Rate [Right Leg ] Respiratory Rate [denies] Blood Pressure 123/52 116/46 117/53 O2 Sat by Pulse 95 96 95 Oximetry 05/06/17 05/06/17 05/06/17 09:45 10:00 10:15 Temperature Pulse Rate 90 89 90 Pulse Rate [ Anterior Bilateral Throughout] Respiratory 17 21 20 Rate Respiratory Rate [Anterior Bilateral Throughout] Respiratory 22 Rate [Right Leg ] Respiratory 22 Rate [denies] Blood Pressure 77/39 122/56 118/54 O2 Sat by Pulse 96 95 Oximetry 05/06/17 05/06/17 05/06/17 10:30 12:36 12:44 Temperature Pulse Rate 88 Pulse Rate [ 98 H 96 H Anterior Bilateral Throughout] Respiratory 18 Rate Respiratory 16 16 Rate [Anterior Bilateral Throughout] Respiratory Rate [Right Leg ] Respiratory Rate [denies] Blood Pressure 82/42 O2 Sat by Pulse 94 Oximetry - General Appearance General appearance: other (acutely ill looking) EENT: mucous membranes dry Neck: no JVD Respiratory: Present: Decreased Breath Sounds Cardiology: regular, systolic murmur Gastrointestinal: hypoactive bowel sounds Musculoskeletal: other (no edema) - Lab 05/06/17 Unknown 05/06/17 17:30 Most recent lab results Calcium 5.8 mg/dL (8.4-10.2) L* 05/06/17 07:55 Phosphorus 6.20 mg/dL (2.5-4.5) H 05/05/17 17:45 Magnesium 1.20 mg/dL (1.7-2.3) L 05/05/17 17:45 Urine Creatinine 28.0 mg/dL (0.1-20.0) H 05/05/17 Unknown Urine Sodium 129 mmol/L 05/05/17 Unknown
[2017-05-06] MEDS ORDERED: MAGNESIUM SULFATE IV ONE (14:21)
[2017-05-06] MEDS ORDERED: MAGNESIUM SULFATE 1 GM in NACL 0.9% 50 ML IV ONE (15:30)
[2017-05-06 15:39] LABS: ISTAT Base Excess -7; ISTAT HCO3 23.2; ISTAT PCO2 80.9 (35-45); ISTAT PH 7.066 (7.35-7.45); ISTAT PO2 65 (80-105); ISTAT SO2 81; ISTAT TCO2 26
--- NOTE | 2017-05-06 16:23 | Progress Note ---
Assessment and Plan 1. Colitis - with MSOF. On maximal pressors, and will likely need ventilatory support. - ID consult noted - cont abx and supportive care - C diff pending, WBC in stool positive Subjective Date of service: 05/06/17 Interval history: Pt critically ill, on BIPAP. Agitated at times. Objective - Constitutional Vitals: Vital Signs - 12hr 05/06/17 05/06/17 05/06/17 04:30 04:45 05:00 Pulse Rate 83 85 85 Pulse Rate [ Anterior Bilateral Throughout] Respiratory 19 18 20 Rate Respiratory Rate [Anterior Bilateral Throughout] Respiratory Rate [Right Leg ] Respiratory Rate [denies] Blood Pressure 107/44 106/44 100/42 O2 Sat by Pulse 97 98 98 Oximetry 05/06/17 05/06/17 05/06/17 05:15 05:30 05:45 Pulse Rate 85 94 H 83 Pulse Rate [ Anterior Bilateral Throughout] Respiratory 19 15 18 Rate Respiratory Rate [Anterior Bilateral Throughout] Respiratory Rate [Right Leg ] Respiratory Rate [denies] Blood Pressure 106/46 110/43 108/44 O2 Sat by Pulse 97 97 96 Oximetry 05/06/17 05/06/17 05/06/17 06:00 06:15 06:30 Pulse Rate 84 85 79 Pulse Rate [ Anterior Bilateral Throughout] Respiratory 19 22 19 Rate Respiratory Rate [Anterior Bilateral Throughout] Respiratory Rate [Right Leg ] Respiratory Rate [denies] Blood Pressure 98/46 108/46 102/45 O2 Sat by Pulse 98 98 100 Oximetry 05/06/17 05/06/17 05/06/17 06:45 07:00 07:15 Pulse Rate 81 78 89 Pulse Rate [ Anterior Bilateral Throughout] Respiratory 18 16 21 Rate Respiratory Rate [Anterior Bilateral Throughout] Respiratory Rate [Right Leg ] Respiratory Rate [denies] Blood Pressure 104/47 111/45 105/51 O2 Sat by Pulse 100 100 100 Oximetry 05/06/17 05/06/17 05/06/17 07:30 07:31 07:45 Pulse Rate 99 H 82 Pulse Rate [ 96 H Anterior Bilateral Throughout] Respiratory 22 19 Rate Respiratory 18 Rate [Anterior Bilateral Throughout] Respiratory Rate [Right Leg ] Respiratory Rate [denies] Blood Pressure 110/51 100/52 O2 Sat by Pulse 94 100 96 Oximetry 05/06/17 05/06/17 05/06/17 07:49 07:55 08:00 Pulse Rate 83 Pulse Rate [ 94 H Anterior Bilateral Throughout] Respiratory 19 Rate Respiratory 18 Rate [Anterior Bilateral Throughout] Respiratory Rate [Right Leg ] Respiratory Rate [denies] Blood Pressure 101/47 O2 Sat by Pulse 100 97 Oximetry 05/06/17 05/06/17 05/06/17 08:15 08:30 08:45 Pulse Rate 84 87 87 Pulse Rate [ Anterior Bilateral Throughout] Respiratory 18 22 21 Rate Respiratory Rate [Anterior Bilateral Throughout] Respiratory Rate [Right Leg ] Respiratory Rate [denies] Blood Pressure 109/49 112/49 116/50 O2 Sat by Pulse 96 95 95 Oximetry 05/06/17 05/06/17 05/06/17 09:00 09:15 09:30 Pulse Rate 85 97 H 90 Pulse Rate [ Anterior Bilateral Throughout] Respiratory 19 21 21 Rate Respiratory Rate [Anterior Bilateral Throughout] Respiratory Rate [Right Leg ] Respiratory Rate [denies] Blood Pressure 123/52 116/46 117/53 O2 Sat by Pulse 95 96 95 Oximetry 05/06/17 05/06/17 05/06/17 09:45 10:00 10:15 Pulse Rate 90 89 90 Pulse Rate [ Anterior Bilateral Throughout] Respiratory 17 21 20 Rate Respiratory Rate [Anterior Bilateral Throughout] Respiratory 22 Rate [Right Leg ] Respiratory 22 Rate [denies] Blood Pressure 77/39 122/56 118/54 O2 Sat by Pulse 96 95 Oximetry 05/06/17 05/06/17 05/06/17 10:30 10:45 11:00 Pulse Rate 88 90 97 H Pulse Rate [ Anterior Bilateral Throughout] Respiratory 18 23 21 Rate Respiratory Rate [Anterior Bilateral Throughout] Respiratory Rate [Right Leg ] Respiratory Rate [denies] Blood Pressure 82/42 123/54 118/55 O2 Sat by Pulse 94 97 96 Oximetry 05/06/17 05/06/17 05/06/17 11:15 11:30 11:45 Pulse Rate 88 96 H 93 H Pulse Rate [ Anterior Bilateral Throughout] Respiratory 22 21 21 Rate Respiratory Rate [Anterior Bilateral Throughout] Respiratory Rate [Right Leg ] Respiratory Rate [denies] Blood Pressure 136/58 123/54 134/65 O2 Sat by Pulse 93 95 91 Oximetry 05/06/17 05/06/17 05/06/17 12:00 12:15 12:30 Pulse Rate 88 95 H 91 H Pulse Rate [ Anterior Bilateral Throughout] Respiratory 22 23 23 Rate Respiratory Rate [Anterior Bilateral Throughout] Respiratory Rate [Right Leg ] Respiratory Rate [denies] Blood Pressure 135/56 130/66 137/61 O2 Sat by Pulse 96 94 96 Oximetry 05/06/17 05/06/17 05/06/17 12:36 12:44 12:45 Pulse Rate 94 H Pulse Rate [ 98 H 96 H Anterior Bilateral Throughout] Respiratory 18 Rate Respiratory 16 16 Rate [Anterior Bilateral Throughout] Respiratory Rate [Right Leg ] Respiratory Rate [denies] Blood Pressure 125/60 O2 Sat by Pulse 96 Oximetry 05/06/17 05/06/17 05/06/17 13:00 13:15 13:30 Pulse Rate 107 H 104 H 98 H Pulse Rate [ Anterior Bilateral Throughout] Respiratory 15 15 13 Rate Respiratory Rate [Anterior Bilateral Throughout] Respiratory Rate [Right Leg ] Respiratory Rate [denies] Blood Pressure 117/48 112/46 115/46 O2 Sat by Pulse 85 97 98 Oximetry 05/06/17 05/06/17 05/06/17 13:45 14:00 14:15 Pulse Rate 100 H 100 H 95 H Pulse Rate [ Anterior Bilateral Throughout] Respiratory 12 12 12 Rate Respiratory Rate [Anterior Bilateral Throughout] Respiratory Rate [Right Leg ] Respiratory Rate [denies] Blood Pressure 114/50 112/47 114/45 O2 Sat by Pulse 97 97 97 Oximetry 05/06/17 05/06/17 05/06/17 14:30 14:45 15:00 Pulse Rate 101 H 115 H 103 H Pulse Rate [ Anterior Bilateral Throughout] Respiratory 13 13 14 Rate Respiratory Rate [Anterior Bilateral Throughout] Respiratory Rate [Right Leg ] Respiratory Rate [denies] Blood Pressure 118/52 121/42 134/50 O2 Sat by Pulse 95 94 95 Oximetry 05/06/17 05/06/17 05/06/17 15:10 15:15 15:30 Pulse Rate 103 H 98 H 102 H Pulse Rate [ Anterior Bilateral Throughout] Respiratory 14 14 12 Rate Respiratory Rate [Anterior Bilateral Throughout] Respiratory Rate [Right Leg ] Respiratory Rate [denies] Blood Pressure 134/50 125/46 118/51 O2 Sat by Pulse 95 93 96 Oximetry 05/06/17 05/06/17 05/06/17 15:45 16:00 16:05 Pulse Rate 82 82 Pulse Rate [ 94 H Anterior Bilateral Throughout] Respiratory 13 14 Rate Respiratory 16 Rate [Anterior Bilateral Throughout] Respiratory Rate [Right Leg ] Respiratory Rate [denies] Blood Pressure 126/56 121/58 O2 Sat by Pulse 99 100 Oximetry 05/06/17 16:15 Pulse Rate Pulse Rate [ 96 H Anterior Bilateral Throughout] Respiratory Rate Respiratory 16 Rate [Anterior Bilateral Throughout] Respiratory Rate [Right Leg ] Respiratory Rate [denies] Blood Pressure O2 Sat by Pulse Oximetry General appearance: Present: other (on BIPAP) - EENT Eyes: PERRL - Respiratory Respiratory effort: labored - Gastrointestinal General gastrointestinal: Present: tender (Mild diffuse), distended (Mild) - Labs CBC & Chem 7: 05/06/17 Unknown 05/06/17 07:55 Labs: Abnormal lab results 05/05/17 05/05/17 05/05/17 Range/Units 17:45 17:45 20:58 WBC (4.5-11.0) K/mm3 RBC (3.65-5.03) M/mm3 Hgb 8.8 L 9.0 L (10.1-14.3) gm/dl Hct 29.8 L (30.3-42.9) % RDW (13.2-15.2) % Plt Count (140-440) K/mm3 Lymphocytes % (Manual) (13.4-35.0) % Seg Neutrophils # Man (1.8-7.7) K/mm3 Monocytes # (Manual) (0.0-0.8) K/mm3 POC ABG pH (7.35-7.45) POC ABG pCO2 (35-45) POC ABG pO2 (80-105) Potassium (3.6-5.0) mmol/L Carbon Dioxide (22-30) mmol/L BUN (7-17) mg/dL Creatinine (0.7-1.2) mg/dL Glucose (65-100) mg/dL Calcium (8.4-10.2) mg/dL Phosphorus 6.20 H (2.5-4.5) mg/dL Magnesium 1.20 L (1.7-2.3) mg/dL C-Reactive Protein (0.00-1.30) mg/dL Urine Creatinine (0.1-20.0) mg/dL 05/05/17 05/06/17 05/06/17 Range/Units Unknown 05:09 05:23 WBC (4.5-11.0) K/mm3 RBC (3.65-5.03) M/mm3 Hgb (10.1-14.3) gm/dl Hct (30.3-42.9) % RDW (13.2-15.2) % Plt Count (140-440) K/mm3 Lymphocytes % (Manual) (13.4-35.0) % Seg Neutrophils # Man (1.8-7.7) K/mm3 Monocytes # (Manual) (0.0-0.8) K/mm3 POC ABG pH 7.029 L 7.060 L (7.35-7.45) POC ABG pCO2 54.8 H 48.6 H (35-45) POC ABG pO2 74 L 43 L (80-105) Potassium (3.6-5.0) mmol/L Carbon Dioxide (22-30) mmol/L BUN (7-17) mg/dL Creatinine (0.7-1.2) mg/dL Glucose (65-100) mg/dL Calcium (8.4-10.2) mg/dL Phosphorus (2.5-4.5) mg/dL Magnesium (1.7-2.3) mg/dL C-Reactive Protein (0.00-1.30) mg/dL Urine Creatinine 28.0 H (0.1-20.0) mg/dL 05/06/17 05/06/17 05/06/17 Range/Units 07:55 07:55 15:28 WBC (4.5-11.0) K/mm3 RBC (3.65-5.03) M/mm3 Hgb (10.1-14.3) gm/dl Hct (30.3-42.9) % RDW (13.2-15.2) % Plt Count (140-440) K/mm3 Lymphocytes % (Manual) (13.4-35.0) % Seg Neutrophils # Man (1.8-7.7) K/mm3 Monocytes # (Manual) (0.0-0.8) K/mm3 POC ABG pH 7.066 L (7.35-7.45) POC ABG pCO2 80.9 H (35-45) POC ABG pO2 65 L (80-105) Potassium 3.5 L (3.6-5.0) mmol/L Carbon Dioxide 18 L D (22-30) mmol/L BUN 44 H (7-17) mg/dL Creatinine 3.5 H (0.7-1.2) mg/dL Glucose 252 H (65-100) mg/dL Calcium 5.8 L* (8.4-10.2) mg/dL Phosphorus (2.5-4.5) mg/dL Magnesium (1.7-2.3) mg/dL C-Reactive Protein 14.50 H (0.00-1.30) mg/dL Urine Creatinine (0.1-20.0) mg/dL 05/06/17 Range/Units Unknown WBC 39.2 H (4.5-11.0) K/mm3 RBC 3.27 L (3.65-5.03) M/mm3 Hgb 9.3 L (10.1-14.3) gm/dl Hct 30.2 L (30.3-42.9) % RDW 16.4 H (13.2-15.2) % Plt Count 645 H (140-440) K/mm3 Lymphocytes % (Manual) 11.0 L (13.4-35.0) % Seg Neutrophils # Man 21.2 H (1.8-7.7) K/mm3 Monocytes # (Manual) 2.0 H (0.0-0.8) K/mm3 POC ABG pH (7.35-7.45) POC ABG pCO2 (35-45) POC ABG pO2 (80-105) Potassium (3.6-5.0) mmol/L Carbon Dioxide (22-30) mmol/L BUN (7-17) mg/dL Creatinine (0.7-1.2) mg/dL Glucose (65-100) mg/dL Calcium (8.4-10.2) mg/dL Phosphorus (2.5-4.5) mg/dL Magnesium (1.7-2.3) mg/dL C-Reactive Protein (0.00-1.30) mg/dL Urine Creatinine (0.1-20.0) mg/dL
[2017-05-06] MEDS: PEPCID IV SCH (17:28)
[2017-05-06 17:57] LABS: Calcium 6.7 mg/dL (8.4-10.2); Potassium 3.4 mmol/L (3.6-5.0)
[2017-05-06] MEDS ORDERED: NACL 0.9% 1000 ML 1,000 ML IV SCH (18:00)
[2017-05-06] MEDS: HEPARIN SUB-Q SCH ×2 (19:27→22:13)
[2017-05-07] MEDS: FLAGYL 500 MG/100 ML 500 MG/100 ML BAG IV SCH ×4 (00:24→18:11)
[2017-05-07] MEDS: VANCOMYCIN PO PO SCH ×4 (00:24→18:40)
[2017-05-07] MEDS: Vasostrict 20 UNIT in NACL 0.9% 100 ML IV SCH (02:51)
[2017-05-07] MEDS ORDERED: LEVAQUIN 500MG/100ML 500 MG/100 ML BAG IV SCH (06:00)
[2017-05-07] MEDS: LEVOPHED 8 MG in NACL 0.9% 250ML 242 ML IV SCH ×2 (06:01→18:00)
[2017-05-07] MEDS: DUONEB *Not for PRN Use IH SCH ×5 (08:31→20:50)
[2017-05-07] MEDS ORDERED: VANCOMYCIN VIAL 500 MG in NACL 0.9% 100 ML PR SCH (10:00)
--- NOTE | 2017-05-07 10:22 | Progress Note ---
Assessment and Plan Assessment and plan: 61-year-old AA female with a history of COPD, hypertension and hyperlipidemia who presents with a 1 week of nonstop watery diarrhea, abdominal pain and weakness. Septic shock/severe sepsis Continue IV pressors, continue IV fluids, continue antibiotics Infectious disease consult appreciated Acute infectious colitis due to C. difficile continue abx, contact isolation, Continue oral , and FL vancomycin and IV Flagyl COPD Continue oxygen, nebs and steroids Metabolic acidosis due to sepsis, continue bicarb drip Acute Renal Failure due to ATN Nephrology consult appreciated -continue IVF, continue pressors The high probability of a clinically significant, sudden or life threatening deterioration of the [cv, pulmonary, Gi] system(s) required my full and direct attention, intervention and personal management. The aggregate critical care time was [44] minutes. This time is in addition to time spent performing reported procedures but includes the following: [] Data Review and interpretation [] Patient assessment and monitoring of vital signs [] Documentation [] Medication orders and management History Interval history: Diarrhea and abdominal pain is improved today Hospitalist Physical - Physical exam Narrative exam: General.: Appears well, no distress, nontoxic HEENT: Moist mucous membranes, extraocular muscles intact, no lymphadenopathy Neck: supple Cardiac: S1-S2 heard Lungs: clear to auscultation bilaterally Abdomen: soft , diffuse tenderness, nondistended, bowel sounds positive Extremities: no edema clubbing or cyanosis Skin: no rash or lesions Neurologic: no gross focal deficits Psych: appropriate behavior, appropriate mood, corporative, judgment intact - Constitutional Vitals: Temp Pulse Resp BP Pulse Ox 98.0 F 81 21 138/66 100 05/07/17 04:00 05/07/17 08:31 05/07/17 08:31 05/07/17 08:00 05/07/17 08:31 General appearance: Present: other (on BIPAP) Results - Labs CBC & Chem 7: 05/07/17 10:18 05/07/17 12:36 Labs: Laboratory Last Values WBC 39.2 K/mm3 (4.5-11.0) H 05/06/17 Unknown RBC 3.27 M/mm3 (3.65-5.03) L 05/06/17 Unknown Hgb 9.3 gm/dl (10.1-14.3) L 05/06/17 Unknown Hct 30.2 % (30.3-42.9) L 05/06/17 Unknown MCV 92 fl (79-97) 05/06/17 Unknown MCH 29 pg (28-32) 05/06/17 Unknown MCHC 31 % (30-34) 05/06/17 Unknown RDW 16.4 % (13.2-15.2) H 05/06/17 Unknown Plt Count 645 K/mm3 (140-440) H 05/06/17 Unknown Add Manual Diff Complete 05/06/17 Unknown Total Counted 100 05/06/17 Unknown Seg Neutrophils % Agriscience Instructor 05/06/17 Unknown Seg Neuts % (Manual) 54.0 % (40.0-70.0) 05/06/17 Unknown Band Neutrophils % 30.0 % 05/06/17 Unknown Lymphocytes % (Manual) 11.0 % (13.4-35.0) L 05/06/17 Unknown Reactive Lymphs % (Man) 0 % 05/06/17 Unknown Monocytes % (Manual) 5.0 % (0.0-7.3) 05/06/17 Unknown Eosinophils % (Manual) 0 % (0.0-4.3) 05/06/17 Unknown Basophils % (Manual) 0 % (0.0-1.8) 05/06/17 Unknown Metamyelocytes % 0 % 05/06/17 Unknown Myelocytes % 0 % 05/06/17 Unknown Promyelocytes % 0 % 05/06/17 Unknown Blast Cells % 0 % 05/06/17 Unknown Nucleated RBC % Not Reportable 05/06/17 Unknown Seg Neutrophils # Man 21.2 K/mm3 (1.8-7.7) H 05/06/17 Unknown Band Neutrophils # 11.8 K/mm3 05/06/17 Unknown Lymphocytes # (Manual) 4.3 K/mm3 (1.2-5.4) 05/06/17 Unknown Abs React Lymphs (Man) 0.0 K/mm3 05/06/17 Unknown Monocytes # (Manual) 2.0 K/mm3 (0.0-0.8) H 05/06/17 Unknown Eosinophils # (Manual) 0.0 K/mm3 (0.0-0.4) 05/06/17 Unknown Basophils # (Manual) 0.0 K/mm3 (0.0-0.1) 05/06/17 Unknown Metamyelocytes # 0.0 K/mm3 05/06/17 Unknown Myelocytes # 0.0 K/mm3 05/06/17 Unknown Promyelocytes # 0.0 K/mm3 05/06/17 Unknown Blast Cells # 0.0 K/mm3 05/06/17 Unknown WBC Morphology Not Reportable 05/06/17 Unknown Hypersegmented Neuts Not Reportable 05/06/17 Unknown Hyposegmented Neuts Not Reportable 05/06/17 Unknown Hypogranular Neuts Not Reportable 05/06/17 Unknown Smudge Cells Not Reportable 05/06/17 Unknown Toxic Granulation Not Reportable 05/06/17 Unknown Toxic Vacuolation Not Reportable 05/06/17 Unknown Dohle Bodies Not Reportable 05/06/17 Unknown Pelger-Huet Anomaly Not Reportable 05/06/17 Unknown Neisha Rods Not Reportable 05/06/17 Unknown Platelet Estimate Consistent w auto 05/06/17 Unknown Clumped Platelets Not Reportable 05/06/17 Unknown Plt Clumps, EDTA Not Reportable 05/06/17 Unknown Large Platelets Not Reportable 05/06/17 Unknown Giant Platelets Not Reportable 05/06/17 Unknown Platelet Satelliting Not Reportable 05/06/17 Unknown Plt Morphology Comment Not Reportable 05/06/17 Unknown RBC Morphology Not Reportable 05/06/17 Unknown Dimorphic RBCs Not Reportable 05/06/17 Unknown Polychromasia Not Reportable 05/06/17 Unknown Hypochromasia 1+ 05/06/17 Unknown Poikilocytosis Not Reportable 05/06/17 Unknown Anisocytosis 2+ 05/06/17 Unknown Microcytosis Not Reportable 05/06/17 Unknown Macrocytosis Not Reportable 05/06/17 Unknown Spherocytes Not Reportable 05/06/17 Unknown Pappenheimer Bodies Not Reportable 05/06/17 Unknown Sickle Cells Not Reportable 05/06/17 Unknown Target Cells Not Reportable 05/06/17 Unknown Tear Drop Cells Not Reportable 05/06/17 Unknown Ovalocytes 1+ 05/06/17 Unknown Helmet Cells Not Reportable 05/06/17 Unknown Frankel-Maddock Bodies Not Reportable 05/06/17 Unknown Boring Rings Not Reportable 05/06/17 Unknown Damián Cells 1+ 05/06/17 Unknown Bite Cells Not Reportable 05/06/17 Unknown Crenated Cell Not Reportable 05/06/17 Unknown Elliptocytes Not Reportable 05/06/17 Unknown Acanthocytes (Spur) Not Reportable 05/06/17 Unknown Rouleaux Not Reportable 05/06/17 Unknown Hemoglobin C Crystals Not Reportable 05/06/17 Unknown Schistocytes Not Reportable 05/06/17 Unknown Malaria parasites Not Reportable 05/06/17 Unknown Herve Bodies Not Reportable 05/06/17 Unknown Hem Pathologist Commnt No 05/06/17 Unknown D-Dimer 8441.57 ng/mlDDU (0-234) H 05/04/17 Unknown POC ABG pH 7.066 (7.35-7.45) L 05/06/17 15:28 POC ABG pCO2 80.9 (35-45) H 05/06/17 15:28 POC ABG pO2 65 (80-105) L 05/06/17 15:28 POC ABG HCO3 23.2 05/06/17 15:28 POC ABG Total CO2 26 05/06/17 15:28 POC ABG O2 Sat 81 05/06/17 15:28 POC ABG Base Excess -7 05/06/17 15:28 FiO2 32 % 05/06/17 15:28 Sodium 145 mmol/L (137-145) 05/06/17 17:30 Potassium 3.4 mmol/L (3.6-5.0) L 05/06/17 17:30 Chloride 107.0 mmol/L (98-107) 05/06/17 17:30 Carbon Dioxide 23 mmol/L (22-30) 05/06/17 17:30 Anion Gap 18 mmol/L 05/06/17 17:30 BUN 41 mg/dL (7-17) H 05/06/17 17:30 Creatinine 3.2 mg/dL (0.7-1.2) H 05/06/17 17:30 Estimated GFR 18 ml/min 05/06/17 17:30 BUN/Creatinine Ratio 13 % 05/06/17 17:30 Glucose 265 mg/dL (65-100) H 05/06/17 17:30 POC Glucose 75 (70-105) 05/04/17 18:31 Lactic Acid 0.40 mmol/L (0.7-2.0) L 05/04/17 Unknown Calcium 6.7 mg/dL (8.4-10.2) L D 05/06/17 17:30 Phosphorus 6.20 mg/dL (2.5-4.5) H 05/05/17 17:45 Magnesium 1.20 mg/dL (1.7-2.3) L 05/05/17 17:45 Total Bilirubin 0.20 mg/dL (0.1-1.2) 05/04/17 18:39 AST 11 units/L (5-40) 05/04/17 18:39 ALT 5 units/L (7-56) L 05/04/17 18:39 Alkaline Phosphatase 32 units/L (35-129) L 05/04/17 18:39 Total Creatine Kinase 346 units/L (30-135) H 05/05/17 05:20 CK-MB (CK-2) 8.2 ng/mL (0.0-4.0) H 05/05/17 05:20 CK-MB (CK-2) Rel Index 2.3 (0-4) 05/05/17 05:20 Troponin T 0.027 ng/mL (0.00-0.029) 05/05/17 05:20 C-Reactive Protein 14.50 mg/dL (0.00-1.30) H 05/06/17 07:55 Total Protein 5.4 g/dL (6.3-8.2) L 05/04/17 18:39 Albumin 3.0 g/dL (3.9-5) L 05/04/17 18:39 Albumin/Globulin Ratio 1.3 % 05/04/17 18:39 Triglycerides 149 mg/dL (2-149) 05/04/17 18:55 Cholesterol 185 mg/dL (50-199) 05/04/17 18:55 LDL Cholesterol Direct 103 mg/dL (50-130) 05/04/17 18:55 HDL Cholesterol 53 mg/dL (40-59) 05/04/17 18:55 Cholesterol/HDL Ratio 3.49 % 05/04/17 18:55 TSH 1.780 mlU/mL (0.270-4.200) 05/04/17 18:39 Urine Color Carol (Yellow) 05/04/17 02:20 Urine Turbidity Clear (Clear) 05/04/17 02:20 Urine pH 5.0 (5.0-7.0) 05/04/17 02:20 Ur Specific [place] 1.018 (1.003-1.030) 05/04/17 02:20 Urine Protein 30 mg/dl mg/dL (Negative) 05/04/17 02:20 Urine Glucose (UA) Neg mg/dL (Negative) 05/04/17 02:20 Urine Ketones Tr mg/dL (Negative) 05/04/17 02:20 Urine Blood Lg (Negative) 05/04/17 02:20 Urine Nitrite Neg (Negative) 05/04/17 02:20 Urine Bilirubin Neg (Negative) 05/04/17 02:20 Urine Urobilinogen < 2.0 mg/dL (<2.0) 05/04/17 02:20 Ur Leukocyte Esterase Sm (Negative) 05/04/17 02:20 Urine WBC (Auto) 100.0 /HPF (0.0-6.0) H 05/04/17 02:20 Urine RBC (Auto) 44.0 /HPF (0.0-6.0) 05/04/17 02:20 U Epithel Cells (Auto) 2.0 /HPF (0-13.0) 05/04/17 02:20 Urine Bacteria (Auto) 1+ /HPF (Negative) 05/04/17 02:20 Urine Mucus Few /HPF 05/04/17 02:20 Urine Creatinine 28.0 mg/dL (0.1-20.0) H 05/05/17 Unknown Urine Sodium 129 mmol/L 05/05/17 Unknown Urine Potassium 3.67 mmol/L 05/05/17 Unknown Urine Chloride 115.6 mmolL (110-250) 05/05/17 Unknown Salicylates 0.3 mg/dL (2.8-20.0) L 05/04/17 18:39 Urine Opiates Screen Presumptive negative 05/04/17 02:20 Urine Methadone Screen Presumptive negative 05/04/17 02:20 Acetaminophen < 15.0 ug/mL (10.0-30.0) 05/04/17 18:39 Ur Barbiturates Screen Presumptive negative 05/04/17 02:20 Ur Phencyclidine Scrn Presumptive negative 05/04/17 02:20 Ur Amphetamines Screen Presumptive negative 05/04/17 02:20 U Benzodiazepines Scrn Presumptive negative 11/12/17 02:20 Urine Cocaine Screen Presumptive negative 05/04/17 02:20 U Marijuana (THC) Screen Presumptive negative 05/04/17 02:20 Drugs of Abuse Note Disclamer 05/04/17 02:20 Plasma/Serum Alcohol < 0.01 gm% (0-0.07) 05/04/17 18:39
--- NOTE | 2017-05-07 10:35 | Progress Note ---
Assessment and Plan Assessment: 1) Shock - multifactorial (hypovolemic/dehydration + septic): NOT BETTER still on pressors and worsening leukocytosis. Septic componeny etiology most likely due to colitis +/- UTI. CRP=14 2) C diff Colitis: severe-recently exposed to broad spectrum abx. CT abd showed colitis. 3) UTI-mild ? reactive from colitis 4) LUIS 6) COPD Plan: -stop anal steroids for hemorrhoids -start vancomycin retention enemas QID per pharmacy protocol -continue PO vanco at 250 mg QID and IV flagyl QID -KUB today -f/u procalcitonin -surgical evaluation for close monitoring if not better may need colectomy Thank you Dr Elliott for your consultation, will follow up with you. Winifred Guerrero MD Infectious Diseases Specialist [facility] [phone] Subjective Date of service: 05/07/17 Principal diagnosis: C diff colitis Interval history: Still sick on 2 pressors no fever talking still diarrhea Microbiology: Blood cultures: 05/05 bgtd Urine cultures: Respiratory cultures: Wound cultures: Stool cultures: C diff 05/04 POSITIVE Current Antimicrobials: Vancomycin PO Metronidazole Previous Antimicrobials: Zosyn Levaquin Vancomycin PO Metronidazole Objective - Exam Narrative Exam: General appearance: Alert in NAD, conversant Eyes: anicteric sclerae, moist conjunctivae; no lid-lag; PERRLA HENT: Atraumatic; oropharynx clear vey dry oral mucosa Neck: Trachea midline; supple, no thyromegaly or lymphadenopathy Lungs: CTA, with normal respiratory effort and no intercostal retractions CV: tachy Abdomen: Soft, diffuse tenderness Extremities: No peripheral edema or extremity lymphadenopathy Skin: Normal temperature, turgor and texture; no rash, ulcers or subcutaneous nodules Psych: Appropriate affect, alert and oriented to person, place and time. Neuro: alert and oriented x 3. Moving all extermities Lines: right SC TLC - Constitutional Vitals: Vital Signs Temp Pulse Resp BP Pulse Ox 98.0 F 81 21 138/66 100 05/07/17 04:00 05/07/17 08:31 05/07/17 08:31 05/07/17 08:00 05/07/17 08:31 Temperature -Last 24 Hours Temperature 98.0 F Temperature 97.6 F Temperature 97.3 F - Labs CBC & Chem 7: 05/06/17 Unknown 05/06/17 17:30 Labs: Abnormal lab results 05/06/17 05/06/17 05/06/17 Range/Units 07:55 15:28 17:30 POC ABG pH 7.066 L (7.35-7.45) POC ABG pCO2 80.9 H (35-45) POC ABG pO2 65 L (80-105) Potassium 3.4 L (3.6-5.0) mmol/L BUN 41 H (7-17) mg/dL Creatinine 3.2 H (0.7-1.2) mg/dL Glucose 265 H (65-100) mg/dL Calcium 6.7 L D (8.4-10.2) mg/dL C-Reactive Protein 14.50 H (0.00-1.30) mg/dL
[2017-05-07] MEDS: HEPARIN SUB-Q SCH ×2 (10:45→23:02)
[2017-05-07] MEDS: PEPCID IV SCH (10:45)
--- NOTE | 2017-05-07 10:47 | Progress Note ---
Assessment and Plan Shock. Improving slowly. Vasopressin being weaned off Severe sepsis with MSOF, secondary to GI source,colitis. Positive C. difficile. Already evaluated by GI. Antibiotics adjusted per ID recommendations Acute gastroenteritis. C. difficile. Abdominal CT showing colitis, mild ascites COPD. improved. A significant hypercapnia yesterday after he had a Dilaudid dose. Clinically she appears to be better therefore no intubation was ordered at the time. Metabolic/respiratory acidosis,AG acidosis. Needs ABG on date Hypocalcemia with hypoalbuminemia. Being corrected PHT on echo, severe. No JVD; may be reactive to severe acidosis,sepsis. Anemia. Stool OB + A/C kidney injury. Nephrology following Recommendations Obtain arterial blood gases. Serial BP monitoring Keep MAP > 65 Monitor UO, keep > 30 cc/ hr The predominant vasopressin. Levophed to follow depending on patient's blood pressure CVP currently from 8. We'll continue adjusting IV fluids and monitor intake and output also. Antibiotics per ID PRBC if Hgb < 7 monitor for any bleeding Monitor electrolytes and renal function. Discussed with patient in detail. All questions answered. No family members available for case discussion Critical care time was 40 minutes of [id number] evaluation and coordination of care Subjective Date of service: 05/07/17 Principal diagnosis: severe sepsis, combined shock,colitis,LUIS,COPD Interval history: Complaints of multiple bowel movements today, diarrhea. Also some colicky pain Objective Vital Signs - 12hr 05/06/17 05/06/17 05/06/17 23:00 23:15 23:16 Temperature Pulse Rate 73 69 72 Pulse Rate [ Anterior Bilateral Throughout] Respiratory 18 18 18 Rate Respiratory Rate [Anterior Bilateral Throughout] Blood Pressure 144/55 139/56 139/56 O2 Sat by Pulse 99 99 100 Oximetry 05/06/17 05/06/17 05/06/17 23:26 23:30 23:45 Temperature Pulse Rate 78 72 93 H Pulse Rate [ Anterior Bilateral Throughout] Respiratory 18 18 17 Rate Respiratory Rate [Anterior Bilateral Throughout] Blood Pressure 139/56 139/56 140/63 O2 Sat by Pulse 100 99 99 Oximetry 05/07/17 05/07/17 05/07/17 00:00 00:15 00:30 Temperature 97.6 F Pulse Rate 76 75 93 H Pulse Rate [ Anterior Bilateral Throughout] Respiratory 18 18 20 Rate Respiratory Rate [Anterior Bilateral Throughout] Blood Pressure 140/54 138/59 125/69 O2 Sat by Pulse 98 99 97 Oximetry 05/07/17 05/07/17 05/07/17 00:45 01:00 01:15 Temperature Pulse Rate 88 87 85 Pulse Rate [ Anterior Bilateral Throughout] Respiratory 19 19 18 Rate Respiratory Rate [Anterior Bilateral Throughout] Blood Pressure 135/66 131/56 130/59 O2 Sat by Pulse 98 99 99 Oximetry 05/07/17 05/07/17 05/07/17 01:30 01:45 02:00 Temperature Pulse Rate 80 82 92 H Pulse Rate [ Anterior Bilateral Throughout] Respiratory 16 16 19 Rate Respiratory Rate [Anterior Bilateral Throughout] Blood Pressure 138/60 142/61 136/70 O2 Sat by Pulse 98 99 98 Oximetry 05/07/17 05/07/17 05/07/17 02:15 02:30 02:45 Temperature Pulse Rate 90 90 90 Pulse Rate [ Anterior Bilateral Throughout] Respiratory 18 19 18 Rate Respiratory Rate [Anterior Bilateral Throughout] Blood Pressure 137/66 139/73 124/73 O2 Sat by Pulse 100 100 100 Oximetry 05/07/17 05/07/17 05/07/17 03:00 03:15 03:30 Temperature Pulse Rate 82 79 83 Pulse Rate [ Anterior Bilateral Throughout] Respiratory 18 17 15 Rate Respiratory Rate [Anterior Bilateral Throughout] Blood Pressure 144/63 134/61 134/71 O2 Sat by Pulse 99 99 99 Oximetry 05/07/17 05/07/17 05/07/17 03:45 04:00 04:15 Temperature 98.0 F Pulse Rate 80 84 98 H Pulse Rate [ Anterior Bilateral Throughout] Respiratory 17 18 20 Rate Respiratory Rate [Anterior Bilateral Throughout] Blood Pressure 129/65 139/64 85/51 O2 Sat by Pulse 98 99 99 Oximetry 05/07/17 05/07/17 05/07/17 04:30 04:45 05:00 Temperature Pulse Rate 92 H 100 H 95 H Pulse Rate [ Anterior Bilateral Throughout] Respiratory 18 18 22 Rate Respiratory Rate [Anterior Bilateral Throughout] Blood Pressure 81/49 137/66 142/76 O2 Sat by Pulse 98 94 97 Oximetry 05/07/17 05/07/17 05/07/17 05:15 05:30 05:45 Temperature Pulse Rate 92 H 93 H 92 H Pulse Rate [ Anterior Bilateral Throughout] Respiratory 19 18 23 Rate Respiratory Rate [Anterior Bilateral Throughout] Blood Pressure 139/68 127/76 148/77 O2 Sat by Pulse 98 97 95 Oximetry 05/07/17 05/07/17 05/07/17 06:00 06:15 06:30 Temperature Pulse Rate 107 H 98 H 93 H Pulse Rate [ Anterior Bilateral Throughout] Respiratory 20 20 17 Rate Respiratory Rate [Anterior Bilateral Throughout] Blood Pressure 128/71 141/63 136/69 O2 Sat by Pulse 98 98 99 Oximetry 05/07/17 05/07/17 05/07/17 06:33 06:45 07:00 Temperature Pulse Rate 80 89 Pulse Rate [ Anterior Bilateral Throughout] Respiratory 21 22 Rate Respiratory Rate [Anterior Bilateral Throughout] Blood Pressure 141/58 128/65 O2 Sat by Pulse 100 99 100 Oximetry 05/07/17 05/07/17 05/07/17 07:15 07:30 07:45 Temperature Pulse Rate 103 H 111 H 95 H Pulse Rate [ Anterior Bilateral Throughout] Respiratory 21 20 17 Rate Respiratory Rate [Anterior Bilateral Throughout] Blood Pressure 127/70 144/72 129/65 O2 Sat by Pulse 96 97 99 Oximetry 05/07/17 05/07/17 05/07/17 07:59 08:00 08:31 Temperature Pulse Rate 90 Pulse Rate [ 81 Anterior Bilateral Throughout] Respiratory 18 Rate Respiratory 21 Rate [Anterior Bilateral Throughout] Blood Pressure 138/66 O2 Sat by Pulse 98 98 100 Oximetry Constitutional: alert, appears uncomfortable ENT: oropharynx moist Neck: supple, no lymphadenopathy, no JVD, other (right IJ line) Ascultation: Bilateral: clear, diminished breath sounds Percussion: Bilateral: not dull Cardiovascular: regular rate and rhythm Gastrointestinal: normoactive bowel sounds, tender (mild no rebound,some bloating) Integumentary: normal Extremities: no cyanosis, no edema Neurologic: normal mental status, non-focal exam, pupils equal and round, CN II- XII normal, motor strength normal and Psychiatric: anxious CBC and BMP: 05/07/17 10:18 05/06/17 17:30 ABG, PT/INR, D-dimer: ABG POC ABG pH 7.066 (7.35-7.45) L 05/06/17 15:28 POC ABG pCO2 80.9 (35-45) H 05/06/17 15:28 POC ABG pO2 65 (80-105) L 05/06/17 15:28 POC ABG HCO3 23.2 05/06/17 15:28 POC ABG Total CO2 26 05/06/17 15:28 POC ABG O2 Sat 81 05/06/17 15:28 PT/INR, D-dimer D-Dimer 8441.57 ng/mlDDU (0-234) H 05/04/17 Unknown Abnormal lab findings: Abnormal Labs 05/04/17 05/04/17 05/04/17 Unknown Unknown Unknown WBC RBC Hgb Hct RDW Plt Count Seg Neuts % (Manual) Lymphocytes % (Manual) Seg Neutrophils # Man Lymphocytes # (Manual) Monocytes # (Manual) D-Dimer 8441.57 H POC ABG pH POC ABG pCO2 POC ABG pO2 Potassium Carbon Dioxide BUN Creatinine Glucose Lactic Acid 0.40 L Calcium Phosphorus Magnesium Total Creatine Kinase 246 H CK-MB (CK-2) 6.2 H C-Reactive Protein Urine Creatinine 05/04/17 05/05/17 05/05/17 Unknown 05:20 05:20 WBC 33.9 H RBC 3.39 L Hgb 9.3 L Hct RDW 16.7 H Plt Count 712 H Seg Neuts % (Manual) 91.0 H Lymphocytes % (Manual) 1.0 L Seg Neutrophils # Man 30.8 H Lymphocytes # (Manual) 0.3 L Monocytes # (Manual) 1.5 H D-Dimer POC ABG pH POC ABG pCO2 POC ABG pO2 Potassium Carbon Dioxide 9 L* BUN 53 H Creatinine 5.4 H Glucose Lactic Acid 0.40 L Calcium 6.1 L D Phosphorus Magnesium Total Creatine Kinase CK-MB (CK-2) C-Reactive Protein Urine Creatinine 05/05/17 05/05/17 05/05/17 05:20 10:43 17:45 WBC RBC Hgb 8.8 L Hct RDW Plt Count Seg Neuts % (Manual) Lymphocytes % (Manual) Seg Neutrophils # Man Lymphocytes # (Manual) Monocytes # (Manual) D-Dimer POC ABG pH 6.872 L POC ABG pCO2 POC ABG pO2 120 H Potassium Carbon Dioxide BUN Creatinine Glucose Lactic Acid Calcium Phosphorus Magnesium Total Creatine Kinase 346 H CK-MB (CK-2) 8.2 H C-Reactive Protein Urine Creatinine 05/05/17 05/05/17 05/05/17 17:45 20:58 Unknown WBC RBC Hgb 9.0 L Hct 29.8 L RDW Plt Count Seg Neuts % (Manual) Lymphocytes % (Manual) Seg Neutrophils # Man Lymphocytes # (Manual) Monocytes # (Manual) D-Dimer POC ABG pH POC ABG pCO2 POC ABG pO2 Potassium Carbon Dioxide BUN Creatinine Glucose Lactic Acid Calcium Phosphorus 6.20 H Magnesium 1.20 L Total Creatine Kinase CK-MB (CK-2) C-Reactive Protein Urine Creatinine 28.0 H 05/06/17 05/06/17 05/06/17 05:09 05:23 07:55 WBC RBC Hgb Hct RDW Plt Count Seg Neuts % (Manual) Lymphocytes % (Manual) Seg Neutrophils # Man Lymphocytes # (Manual) Monocytes # (Manual) D-Dimer POC ABG pH 7.029 L 7.060 L POC ABG pCO2 54.8 H 48.6 H POC ABG pO2 74 L 43 L Potassium 3.5 L Carbon Dioxide 18 L D BUN 44 H Creatinine 3.5 H Glucose 252 H Lactic Acid Calcium 5.8 L* Phosphorus Magnesium Total Creatine Kinase CK-MB (CK-2) C-Reactive Protein Urine Creatinine 05/06/17 05/06/17 05/06/17 07:55 15:28 17:30 WBC RBC Hgb Hct RDW Plt Count Seg Neuts % (Manual) Lymphocytes % (Manual) Seg Neutrophils # Man Lymphocytes # (Manual) Monocytes # (Manual) D-Dimer POC ABG pH 7.066 L POC ABG pCO2 80.9 H POC ABG pO2 65 L Potassium 3.4 L Carbon Dioxide BUN 41 H Creatinine 3.2 H Glucose 265 H Lactic Acid Calcium 6.7 L D Phosphorus Magnesium Total Creatine Kinase CK-MB (CK-2) C-Reactive Protein 14.50 H Urine Creatinine 05/06/17 Unknown WBC 39.2 H RBC 3.27 L Hgb 9.3 L Hct 30.2 L RDW 16.4 H Plt Count 645 H Seg Neuts % (Manual) Lymphocytes % (Manual) 11.0 L Seg Neutrophils # Man 21.2 H Lymphocytes # (Manual) Monocytes # (Manual) 2.0 H D-Dimer POC ABG pH POC ABG pCO2 POC ABG pO2 Potassium Carbon Dioxide BUN Creatinine Glucose Lactic Acid Calcium Phosphorus Magnesium Total Creatine Kinase CK-MB (CK-2) C-Reactive Protein Urine Creatinine
[2017-05-07 10:59] LABS: Hematocrit 33.9 % (30.3-42.9); Hemoglobin 10.3 gm/dl (10.1-14.3); Mean Corpuscular HGB Conc 30 % (30-34); Mean Corpuscular Hemoglobin 28 pg (28-32); Mean Corpuscular Volume 92 fl (79-97); Platelet Count 467 K/mm3 (140-440)
[2017-05-07 11:00] LABS: White Blood Count 32.9 K/mm3 (4.5-11.0)
--- NOTE | 2017-05-07 12:02 | Gastroenterology Progress Note ---
Assessment and Plan 1.colitis with MSOF -afebrile -WBC-32.9 -Abd CT revealed generalized nonspecific colitis -stool positive for WBC and C-diff -ID is following -continue vancomycin and flagyl -continue supportive care Subjective Date of service: 05/07/17 Principal diagnosis: C diff colitis Interval history: Pt critically ill, still on pressors. Family at bedside. Pt reports continued diarrhea with 2-3 BMs so far this am. Objective - Constitutional Vitals: Temp Pulse Resp BP Pulse Ox 98.0 F 81 21 138/66 100 05/07/17 04:00 05/07/17 08:31 05/07/17 08:31 05/07/17 08:00 05/07/17 08:31 General appearance: other (Alert & oriented, conversant) - EENT Eyes: PERRL, EOM intact ENT: hearing intact - Respiratory Respiratory: bilateral: CTA (anterior) - Cardiovascular Rhythm: regular Heart Sounds: Present: S1 & S2 - Extremities Extremities: No edema - Gastrointestinal General gastrointestinal: Present: soft, tender (generalized tenderness), non- distended, normal bowel sounds - Integumentary Integumentary: Present: warm, dry - Neurologic Neurological: alert and oriented x3 - Labs CBC & Chem 7: 05/07/17 10:18 05/06/17 17:30 Labs: Laboratory Results - last 24 hr 05/06/17 05/06/17 05/06/17 07:55 15:28 17:30 WBC RBC Hgb Hct MCV MCH MCHC RDW Plt Count POC ABG pH 7.066 L POC ABG pCO2 80.9 H POC ABG pO2 65 L POC ABG HCO3 23.2 POC ABG Total CO2 26 POC ABG O2 Sat 81 POC ABG Base Excess -7 FiO2 32 Sodium 145 Potassium 3.4 L Chloride 107.0 Carbon Dioxide 23 Anion Gap 18 BUN 41 H Creatinine 3.2 H Estimated GFR 18 BUN/Creatinine Ratio 13 Glucose 265 H Calcium 6.7 L D C-Reactive Protein 14.50 H 05/07/17 10:18 WBC 32.9 H RBC 3.70 Hgb 10.3 Hct 33.9 MCV 92 MCH 28 MCHC 30 RDW 17.0 H Plt Count 467 H POC ABG pH POC ABG pCO2 POC ABG pO2 POC ABG HCO3 POC ABG Total CO2 POC ABG O2 Sat POC ABG Base Excess FiO2 Sodium Potassium Chloride Carbon Dioxide Anion Gap BUN Creatinine Estimated GFR BUN/Creatinine Ratio Glucose Calcium C-Reactive Protein
[2017-05-07 12:10] LABS: ISTAT Base Excess -3; ISTAT HCO3 23.2; ISTAT PCO2 48.3 (35-45); ISTAT PO2 51 (80-105); ISTAT SO2 81; ISTAT TCO2 25
[2017-05-07] MEDS: Fluarix Quad 2017-2018(36 MOS+ IM ONE ×2 (12:50→17:04)
[2017-05-07] MEDS ORDERED: KCL 20MEQ/100ML 20 MEQ/100 ML BAG IV ONE ×2 (13:00→15:00)
[2017-05-07] MEDS: DILAUDID IV PRN (13:06)
[2017-05-07 13:16] LABS: Calcium 6.6 mg/dL (8.4-10.2); Chloride 109.2 mmol/L (98-107); Potassium 3.1 mmol/L (3.6-5.0)
--- NOTE | 2017-05-07 13:37 | Progress Note ---
Assessment and Plan Impression: * Acute kidney injury secondary to prerenal azotemia due to volume depletion secondary to GI loss - improved * Colitis * Sepsis * Metabolic acidosis,resolved - likely related to diarrhea; LA unremarkable * Hypokalemia * Hypernatremia - mild * Hypocalcemia Plan: * Continue IVF for volume repletion - change to 1/2 NS, continue current rate * Abx per ID * Replete lytes prn; KCl in progress, will give IV Ca * Avoid potential nephrotoxins * Pressors to maintain MAP>65 - currently on Vaso/Levo * Dose medications for renal function Subjective Date of service: 05/07/17 Principal diagnosis: severe sepsis, combined shock,colitis,LUIS,COPD Interval history: Patient reports abdominal discomfort. She denies SOB. Objective - Vital Signs Vital signs: Vital Signs - 12hr 05/07/17 05/07/17 05/07/17 01:45 02:00 02:15 Temperature Pulse Rate 82 92 H 90 Pulse Rate [ Anterior Bilateral Throughout] Respiratory 16 19 18 Rate Respiratory Rate [Anterior Bilateral Throughout] Respiratory Rate [Right Leg ] Blood Pressure 142/61 136/70 137/66 O2 Sat by Pulse 99 98 100 Oximetry 05/07/17 05/07/17 05/07/17 02:30 02:45 03:00 Temperature Pulse Rate 90 90 82 Pulse Rate [ Anterior Bilateral Throughout] Respiratory 19 18 18 Rate Respiratory Rate [Anterior Bilateral Throughout] Respiratory Rate [Right Leg ] Blood Pressure 139/73 124/73 144/63 O2 Sat by Pulse 100 100 99 Oximetry 05/07/17 05/07/17 05/07/17 03:15 03:30 03:45 Temperature Pulse Rate 79 83 80 Pulse Rate [ Anterior Bilateral Throughout] Respiratory 17 15 17 Rate Respiratory Rate [Anterior Bilateral Throughout] Respiratory Rate [Right Leg ] Blood Pressure 134/61 134/71 129/65 O2 Sat by Pulse 99 99 98 Oximetry 05/07/17 05/07/17 05/07/17 04:00 04:15 04:30 Temperature 98.0 F Pulse Rate 84 98 H 92 H Pulse Rate [ Anterior Bilateral Throughout] Respiratory 18 20 18 Rate Respiratory Rate [Anterior Bilateral Throughout] Respiratory Rate [Right Leg ] Blood Pressure 139/64 85/51 81/49 O2 Sat by Pulse 99 99 98 Oximetry 05/07/17 05/07/17 05/07/17 04:45 05:00 05:15 Temperature Pulse Rate 100 H 95 H 92 H Pulse Rate [ Anterior Bilateral Throughout] Respiratory 18 22 19 Rate Respiratory Rate [Anterior Bilateral Throughout] Respiratory Rate [Right Leg ] Blood Pressure 137/66 142/76 139/68 O2 Sat by Pulse 94 97 98 Oximetry 05/07/17 05/07/17 05/07/17 05:30 05:45 06:00 Temperature Pulse Rate 93 H 92 H 107 H Pulse Rate [ Anterior Bilateral Throughout] Respiratory 18 23 20 Rate Respiratory Rate [Anterior Bilateral Throughout] Respiratory Rate [Right Leg ] Blood Pressure 127/76 148/77 128/71 O2 Sat by Pulse 97 95 98 Oximetry 05/07/17 05/07/17 05/07/17 06:15 06:30 06:33 Temperature Pulse Rate 98 H 93 H Pulse Rate [ Anterior Bilateral Throughout] Respiratory 20 17 Rate Respiratory Rate [Anterior Bilateral Throughout] Respiratory Rate [Right Leg ] Blood Pressure 141/63 136/69 O2 Sat by Pulse 98 99 100 Oximetry 05/07/17 05/07/17 05/07/17 06:45 07:00 07:15 Temperature Pulse Rate 80 89 103 H Pulse Rate [ Anterior Bilateral Throughout] Respiratory 21 22 21 Rate Respiratory Rate [Anterior Bilateral Throughout] Respiratory Rate [Right Leg ] Blood Pressure 141/58 128/65 127/70 O2 Sat by Pulse 99 100 96 Oximetry 05/07/17 05/07/17 05/07/17 07:30 07:45 07:59 Temperature Pulse Rate 111 H 95 H Pulse Rate [ Anterior Bilateral Throughout] Respiratory 20 17 Rate Respiratory Rate [Anterior Bilateral Throughout] Respiratory Rate [Right Leg ] Blood Pressure 144/72 129/65 O2 Sat by Pulse 97 99 98 Oximetry 05/07/17 05/07/17 05/07/17 08:00 08:15 08:30 Temperature 99.2 F Pulse Rate 90 89 84 Pulse Rate [ Anterior Bilateral Throughout] Respiratory 18 17 19 Rate Respiratory Rate [Anterior Bilateral Throughout] Respiratory Rate [Right Leg ] Blood Pressure 138/66 137/68 141/61 O2 Sat by Pulse 98 98 99 Oximetry 05/07/17 05/07/17 05/07/17 08:31 08:45 09:00 Temperature Pulse Rate 92 H 107 H Pulse Rate [ 81 Anterior Bilateral Throughout] Respiratory 19 19 Rate Respiratory 21 Rate [Anterior Bilateral Throughout] Respiratory Rate [Right Leg ] Blood Pressure 128/68 128/68 O2 Sat by Pulse 100 97 95 Oximetry 05/07/17 05/07/17 05/07/17 09:15 09:30 09:45 Temperature Pulse Rate 81 80 81 Pulse Rate [ Anterior Bilateral Throughout] Respiratory 18 20 19 Rate Respiratory Rate [Anterior Bilateral Throughout] Respiratory Rate [Right Leg ] Blood Pressure 132/80 129/79 132/64 O2 Sat by Pulse 98 100 100 Oximetry 05/07/17 05/07/17 05/07/17 10:00 10:15 10:30 Temperature Pulse Rate 92 H 88 103 H Pulse Rate [ Anterior Bilateral Throughout] Respiratory 18 12 20 Rate Respiratory Rate [Anterior Bilateral Throughout] Respiratory 22 Rate [Right Leg ] Blood Pressure 132/72 130/71 132/65 O2 Sat by Pulse 98 97 97 Oximetry 05/07/17 05/07/17 05/07/17 10:45 11:00 11:16 Temperature Pulse Rate 107 H 99 H Pulse Rate [ Anterior Bilateral Throughout] Respiratory 17 19 Rate Respiratory Rate [Anterior Bilateral Throughout] Respiratory Rate [Right Leg ] Blood Pressure 126/82 140/69 138/77 O2 Sat by Pulse 98 97 94 Oximetry 05/07/17 05/07/17 05/07/17 11:30 11:45 12:00 Temperature 98.3 F Pulse Rate 93 H 92 H 99 H Pulse Rate [ Anterior Bilateral Throughout] Respiratory 21 20 16 Rate Respiratory Rate [Anterior Bilateral Throughout] Respiratory Rate [Right Leg ] Blood Pressure 123/64 139/68 144/78 O2 Sat by Pulse 95 95 94 Oximetry 05/07/17 05/07/17 05/07/17 12:15 12:30 12:40 Temperature Pulse Rate 105 H 100 H Pulse Rate [ 96 H Anterior Bilateral Throughout] Respiratory 13 16 Rate Respiratory 17 Rate [Anterior Bilateral Throughout] Respiratory Rate [Right Leg ] Blood Pressure 149/72 135/66 O2 Sat by Pulse 95 95 Oximetry 05/07/17 05/07/17 05/07/17 12:45 12:52 13:00 Temperature Pulse Rate 105 H 104 H Pulse Rate [ 102 H Anterior Bilateral Throughout] Respiratory 17 18 Rate Respiratory 22 Rate [Anterior Bilateral Throughout] Respiratory Rate [Right Leg ] Blood Pressure 146/72 137/69 O2 Sat by Pulse 96 96 Oximetry 05/07/17 13:15 Temperature Pulse Rate 93 H Pulse Rate [ Anterior Bilateral Throughout] Respiratory 18 Rate Respiratory Rate [Anterior Bilateral Throughout] Respiratory Rate [Right Leg ] Blood Pressure 121/61 O2 Sat by Pulse 99 Oximetry - General Appearance General appearance: well-developed, well-nourished EENT: ATNC Respiratory: Present: Clear to Ascultation (anteriorly) Cardiology: regular, tachycardia, S1S2 Gastrointestinal: tenderness (mild tenderness wit palpation), distended Integumentary: no rash Neurologic: no focal deficit Musculoskeletal: other (no edema) Psychiatric: cooperative - Lab 05/07/17 10:18 05/07/17 12:36 Most recent lab results Calcium 6.6 mg/dL (8.4-10.2) L 05/07/17 12:36 Phosphorus 6.20 mg/dL (2.5-4.5) H 05/05/17 17:45 Magnesium 1.20 mg/dL (1.7-2.3) L 05/05/17 17:45 Urine Creatinine 28.0 mg/dL (0.1-20.0) H 05/05/17 Unknown Urine Sodium 129 mmol/L 05/05/17 Unknown
[2017-05-07] MEDS ORDERED: NACL 0.45% 1000 ML 1,000 ML IV SCH (16:00)
[2017-05-07] MEDS ORDERED: CALCIUM GLUCONATE 1,000 MG in NACL 0.9% 100 ML IV ONE (16:00)
[2017-05-07] MEDS: VANCOMYCIN VIAL 500 MG in NACL 0.9% 100 ML PR SCH (16:45)
[2017-05-08] MEDS: VANCOMYCIN VIAL 500 MG in NACL 0.9% 100 ML PR SCH ×3 (00:10→12:02)
[2017-05-08] MEDS: VANCOMYCIN PO PO SCH ×3 (00:11→18:30)
[2017-05-08] MEDS: FLAGYL 500 MG/100 ML 500 MG/100 ML BAG IV SCH ×5 (00:14→23:48)
[2017-05-08] MEDS: DUONEB *Not for PRN Use IH SCH ×7 (00:50→20:12)
[2017-05-08] MEDS: DILAUDID IV PRN ×3 (01:38→21:49)
[2017-05-08 06:12] LABS: Hematocrit 30.6 % (30.3-42.9); Hemoglobin 9.8 gm/dl (10.1-14.3); Mean Corpuscular HGB Conc 32 % (30-34); Mean Corpuscular Hemoglobin 29 pg (28-32); Mean Corpuscular Volume 90 fl (79-97); Platelet Count 429 K/mm3 (140-440); Red Blood Count 3.41 M/mm3 (3.65-5.03); Red Cell Distribution Width 16.9 % (13.2-15.2); White Blood Count 31.1 K/mm3 (4.5-11.0)
[2017-05-08 06:32] LABS: Alanine Aminotransferase 6 units/L (7-56); Alkaline Phosphatase 51 units/L (35-129); Anion Gap 19 mmol/L; BUN/Creatinine Ratio 16; Bilirubin,Total < 0.20 mg/dL (0.1-1.2); Blood Urea Nitrogen 39 mg/dL (7-17); Calcium 6.6 mg/dL (8.4-10.2); Carbon Dioxide 20 mmol/L (22-30); Chloride 115.4 mmol/L (98-107); Glucose 160 mg/dL (65-100); Sodium 150 mmol/L (137-145); Total Protein 4.1 g/dL (6.3-8.2)
[2017-05-08 06:39] LABS: Potassium 3.9 mmol/L (3.6-5.0)
[2017-05-08 06:57] LABS: Anisocytosis 1+; Basophils % (Manual) 0 % (0.0-1.8); Blastocytes % (Manual) 0 %; Eosinophils % (Manual) 0 % (0.0-4.3); Poikilocytosis 1+; Tear Drop Cells Few; Total Cells Counted Percent 0
[2017-05-08 06:58] LABS: Burr Cells Few; Diff Status Complete; Elliptocytes Few; Ovalocytes 1+
[2017-05-08] MEDS ORDERED: MAGNESIUM SULFATE 4GM/100ML 4 GM/100 ML BAG IV ONE (08:00)
[2017-05-08 09:08] LABS: ISTAT Base Excess TNR; ISTAT HCO3 TNR; ISTAT PCO2 TNR (35-45); ISTAT PH TNR (7.35-7.45); ISTAT PO2 TNR (80-105)
[2017-05-08 09:09] LABS: ISTAT DEVICE TNR; ISTAT SITE TNR; ISTAT SO2 TNR; ISTAT TCO2 TNR
--- NOTE | 2017-05-08 10:19 | Progress Note ---
Assessment and Plan Impression: * Acute kidney injury secondary to prerenal azotemia due to volume depletion secondary to GI loss - improved * Colitis * Sepsis * Metabolic acidosis,resolved - likely related to diarrhea; LA unremarkable * Hypokalemia * Hypernatremia * Hypocalcemia - corrected Ca 8.2 * Hypoalbuminemia Plan: * Renal function improved. Patient with worsening hypernatremia - change to 1/ 2NS to D5W 75ml/min * Abx per ID * Replete lytes prn * Avoid potential nephrotoxins * Pressors to maintain MAP>65 - currently on Levo * Dose medications for renal function * Repeat BMP today Subjective Date of service: 05/08/17 Principal diagnosis: severe sepsis, combined shock,colitis,LUIS,COPD Interval history: Patient denies abdominal pain. Objective - Vital Signs Vital signs: Vital Signs - 12hr 05/07/17 05/07/17 05/07/17 22:30 22:45 23:00 Temperature Pulse Rate 107 H 107 H 100 H Pulse Rate [ Anterior Bilateral Throughout] Pulse Rate [ From Monitor] Respiratory 22 22 22 Rate Respiratory Rate [Anterior Bilateral Throughout] Blood Pressure 134/80 128/71 128/69 O2 Sat by Pulse 99 99 100 Oximetry 05/07/17 05/07/17 05/07/17 23:16 23:22 23:30 Temperature Pulse Rate 98 H 86 90 Pulse Rate [ Anterior Bilateral Throughout] Pulse Rate [ From Monitor] Respiratory 20 18 18 Rate Respiratory Rate [Anterior Bilateral Throughout] Blood Pressure 128/69 128/69 128/69 O2 Sat by Pulse 100 100 100 Oximetry 05/07/17 05/07/17 05/08/17 23:36 23:45 00:00 Temperature 98.7 F Pulse Rate 88 90 Pulse Rate [ Anterior Bilateral Throughout] Pulse Rate [ From Monitor] Respiratory 18 18 Rate Respiratory Rate [Anterior Bilateral Throughout] Blood Pressure 115/64 93/43 O2 Sat by Pulse 100 100 Oximetry 05/08/17 05/08/17 05/08/17 00:15 00:30 00:46 Temperature Pulse Rate 109 H 79 92 H Pulse Rate [ Anterior Bilateral Throughout] Pulse Rate [ 114 H From Monitor] Respiratory 19 19 18 Rate Respiratory Rate [Anterior Bilateral Throughout] Blood Pressure 109/60 107/59 117/42 O2 Sat by Pulse 100 100 100 Oximetry 05/08/17 05/08/17 05/08/17 00:50 01:00 01:09 Temperature Pulse Rate 98 H Pulse Rate [ 91 H 106 H Anterior Bilateral Throughout] Pulse Rate [ From Monitor] Respiratory 21 Rate Respiratory 15 17 Rate [Anterior Bilateral Throughout] Blood Pressure 126/34 O2 Sat by Pulse 100 Oximetry 05/08/17 05/08/17 05/08/17 01:15 01:30 01:46 Temperature Pulse Rate 107 H 126 H 92 H Pulse Rate [ Anterior Bilateral Throughout] Pulse Rate [ From Monitor] Respiratory 22 14 14 Rate Respiratory Rate [Anterior Bilateral Throughout] Blood Pressure 131/42 131/77 107/50 O2 Sat by Pulse 99 96 100 Oximetry 05/08/17 05/08/17 05/08/17 02:00 02:15 02:30 Temperature Pulse Rate 88 101 H 81 Pulse Rate [ Anterior Bilateral Throughout] Pulse Rate [ From Monitor] Respiratory 15 16 15 Rate Respiratory Rate [Anterior Bilateral Throughout] Blood Pressure 96/45 94/41 90/43 O2 Sat by Pulse 100 100 100 Oximetry 05/08/17 05/08/17 05/08/17 02:45 03:00 03:15 Temperature Pulse Rate 88 77 75 Pulse Rate [ Anterior Bilateral Throughout] Pulse Rate [ From Monitor] Respiratory 14 14 15 Rate Respiratory Rate [Anterior Bilateral Throughout] Blood Pressure 102/37 100/41 106/50 O2 Sat by Pulse 100 100 100 Oximetry 05/08/17 05/08/17 05/08/17 03:30 03:45 04:00 Temperature 98.9 F Pulse Rate 84 72 72 Pulse Rate [ Anterior Bilateral Throughout] Pulse Rate [ From Monitor] Respiratory 14 14 13 Rate Respiratory Rate [Anterior Bilateral Throughout] Blood Pressure 98/44 98/49 108/39 O2 Sat by Pulse 100 100 100 Oximetry 05/08/17 05/08/17 05/08/17 04:15 04:30 04:45 Temperature Pulse Rate 72 85 79 Pulse Rate [ Anterior Bilateral Throughout] Pulse Rate [ From Monitor] Respiratory 13 14 16 Rate Respiratory Rate [Anterior Bilateral Throughout] Blood Pressure 114/49 111/58 120/52 O2 Sat by Pulse 100 100 100 Oximetry 05/08/17 05/08/17 05/08/17 05:00 05:15 05:30 Temperature Pulse Rate 84 77 68 Pulse Rate [ Anterior Bilateral Throughout] Pulse Rate [ From Monitor] Respiratory 17 15 15 Rate Respiratory Rate [Anterior Bilateral Throughout] Blood Pressure 121/57 117/47 109/47 O2 Sat by Pulse 100 100 100 Oximetry 05/08/17 05/08/17 05/08/17 05:45 05:53 06:00 Temperature Pulse Rate 94 H 88 Pulse Rate [ 88 Anterior Bilateral Throughout] Pulse Rate [ From Monitor] Respiratory 21 17 Rate Respiratory 16 Rate [Anterior Bilateral Throughout] Blood Pressure 114/54 113/71 O2 Sat by Pulse 99 100 Oximetry 05/08/17 05/08/17 05/08/17 06:06 06:15 06:30 Temperature Pulse Rate 93 H 92 H Pulse Rate [ 91 H Anterior Bilateral Throughout] Pulse Rate [ From Monitor] Respiratory 18 21 Rate Respiratory 16 Rate [Anterior Bilateral Throughout] Blood Pressure 124/53 133/63 O2 Sat by Pulse 100 100 Oximetry 05/08/17 05/08/17 05/08/17 06:45 07:00 07:15 Temperature Pulse Rate 96 H 91 H 112 H Pulse Rate [ Anterior Bilateral Throughout] Pulse Rate [ From Monitor] Respiratory 23 19 19 Rate Respiratory Rate [Anterior Bilateral Throughout] Blood Pressure 138/72 146/74 122/75 O2 Sat by Pulse 99 100 100 Oximetry 05/08/17 05/08/17 05/08/17 07:30 07:45 07:50 Temperature Pulse Rate 99 H 86 Pulse Rate [ Anterior Bilateral Throughout] Pulse Rate [ 88 From Monitor] Respiratory 23 20 19 Rate Respiratory Rate [Anterior Bilateral Throughout] Blood Pressure 133/71 121/70 O2 Sat by Pulse 100 100 100 Oximetry 05/08/17 05/08/17 05/08/17 08:00 08:15 08:22 Temperature 97.9 F Pulse Rate 91 H 90 Pulse Rate [ Anterior Bilateral Throughout] Pulse Rate [ From Monitor] Respiratory 18 20 Rate Respiratory Rate [Anterior Bilateral Throughout] Blood Pressure 122/72 129/63 O2 Sat by Pulse 100 100 100 Oximetry 05/08/17 05/08/17 05/08/17 08:23 08:30 08:46 Temperature Pulse Rate 109 H 116 H Pulse Rate [ 96 H Anterior Bilateral Throughout] Pulse Rate [ From Monitor] Respiratory 21 19 Rate Respiratory 22 Rate [Anterior Bilateral Throughout] Blood Pressure 128/71 124/82 O2 Sat by Pulse 100 99 Oximetry - General Appearance General appearance: well-developed, well-nourished EENT: ATNC Neck: no JVD Respiratory: Present: Decreased Breath Sounds Cardiology: regular, S1S2 Gastrointestinal: hypoactive bowel sounds, no tenderness, distended Integumentary: no rash Neurologic: reflexes 2+ and symmetric Musculoskeletal: other (trace edema) Psychiatric: cooperative - Lab 05/08/17 05:45 05/08/17 05:45 Most recent lab results Calcium 6.6 mg/dL (8.4-10.2) L 05/08/17 05:45 Phosphorus 4.50 mg/dL (2.5-4.5) 05/08/17 05:45 Magnesium 1.40 mg/dL (1.7-2.3) L 05/08/17 05:45 Urine Creatinine 28.0 mg/dL (0.1-20.0) H 05/05/17 Unknown Urine Sodium 129 mmol/L 05/05/17 Unknown
--- NOTE | 2017-05-08 10:52 | Progress Note ---
Assessment and Plan Shock. Hypernatremia. fluids , na+ dependent fluid replacement Severe sepsis with MSOF, secondary to GI source,colitis. Positive C. difficile. Already evaluated by GI. Antibiotics adjusted per ID recommendations Acute gastroenteritis. C. difficile. Abdominal CT showing colitis, mild ascites COPD. improved. A significant hypercapnia yesterday after he had a Dilaudid dose. Clinically she appears to be better therefore no intubation was ordered at the time. Metabolic/respiratory acidosis,AG acidosis. Needs ABG on date Hypocalcemia with hypoalbuminemia. Corrected PHT on echo, severe. No JVD; may be reactive to severe acidosis,sepsis. Anemia. Stool OB + A/C kidney injury. Nephrology following Recommendations Agree with D5W per nephrology Monitor S.lytes Serial BP monitoring Keep MAP > 65 Monitor UO, keep > 30 cc/ hr Wea remainder pressors Antibiotics per ID . Discussed with patient in detail. All questions answered. No family members available for case discussion Critical care time was 31 minutes of [id number] evaluation and coordination of care Subjective Date of service: 05/08/17 Principal diagnosis: severe sepsis, combined shock,colitis,LUIS,COPD Objective Vital Signs - 12hr 05/07/17 05/07/17 05/07/17 23:00 23:16 23:22 Temperature Pulse Rate 100 H 98 H 86 Pulse Rate [ Anterior Bilateral Throughout] Pulse Rate [ From Monitor] Respiratory 22 20 18 Rate Respiratory Rate [Anterior Bilateral Throughout] Blood Pressure 128/69 128/69 128/69 O2 Sat by Pulse 100 100 100 Oximetry 05/07/17 05/07/17 05/07/17 23:30 23:36 23:45 Temperature 98.7 F Pulse Rate 90 88 Pulse Rate [ Anterior Bilateral Throughout] Pulse Rate [ From Monitor] Respiratory 18 18 Rate Respiratory Rate [Anterior Bilateral Throughout] Blood Pressure 128/69 115/64 O2 Sat by Pulse 100 100 Oximetry 05/08/17 05/08/17 05/08/17 00:00 00:15 00:30 Temperature Pulse Rate 90 109 H 79 Pulse Rate [ Anterior Bilateral Throughout] Pulse Rate [ 114 H From Monitor] Respiratory 18 19 19 Rate Respiratory Rate [Anterior Bilateral Throughout] Blood Pressure 93/43 109/60 107/59 O2 Sat by Pulse 100 100 100 Oximetry 05/08/17 05/08/17 05/08/17 00:46 00:50 01:00 Temperature Pulse Rate 92 H 98 H Pulse Rate [ 91 H Anterior Bilateral Throughout] Pulse Rate [ From Monitor] Respiratory 18 21 Rate Respiratory 15 Rate [Anterior Bilateral Throughout] Blood Pressure 117/42 126/34 O2 Sat by Pulse 100 100 Oximetry 05/08/17 05/08/17 05/08/17 01:09 01:15 01:30 Temperature Pulse Rate 107 H 126 H Pulse Rate [ 106 H Anterior Bilateral Throughout] Pulse Rate [ From Monitor] Respiratory 22 14 Rate Respiratory 17 Rate [Anterior Bilateral Throughout] Blood Pressure 131/42 131/77 O2 Sat by Pulse 99 96 Oximetry 05/08/17 05/08/17 05/08/17 01:46 02:00 02:15 Temperature Pulse Rate 92 H 88 101 H Pulse Rate [ Anterior Bilateral Throughout] Pulse Rate [ From Monitor] Respiratory 14 15 16 Rate Respiratory Rate [Anterior Bilateral Throughout] Blood Pressure 107/50 96/45 94/41 O2 Sat by Pulse 100 100 100 Oximetry 05/08/17 05/08/17 05/08/17 02:30 02:45 03:00 Temperature Pulse Rate 81 88 77 Pulse Rate [ Anterior Bilateral Throughout] Pulse Rate [ From Monitor] Respiratory 15 14 14 Rate Respiratory Rate [Anterior Bilateral Throughout] Blood Pressure 90/43 102/37 100/41 O2 Sat by Pulse 100 100 100 Oximetry 05/08/17 05/08/17 05/08/17 03:15 03:30 03:45 Temperature Pulse Rate 75 84 72 Pulse Rate [ Anterior Bilateral Throughout] Pulse Rate [ From Monitor] Respiratory 15 14 14 Rate Respiratory Rate [Anterior Bilateral Throughout] Blood Pressure 106/50 98/44 98/49 O2 Sat by Pulse 100 100 100 Oximetry 05/08/17 05/08/17 05/08/17 04:00 04:15 04:30 Temperature 98.9 F Pulse Rate 72 72 85 Pulse Rate [ Anterior Bilateral Throughout] Pulse Rate [ From Monitor] Respiratory 13 13 14 Rate Respiratory Rate [Anterior Bilateral Throughout] Blood Pressure 108/39 114/49 111/58 O2 Sat by Pulse 100 100 100 Oximetry 05/08/17 05/08/17 05/08/17 04:45 05:00 05:15 Temperature Pulse Rate 79 84 77 Pulse Rate [ Anterior Bilateral Throughout] Pulse Rate [ From Monitor] Respiratory 16 17 15 Rate Respiratory Rate [Anterior Bilateral Throughout] Blood Pressure 120/52 121/57 117/47 O2 Sat by Pulse 100 100 100 Oximetry 05/08/17 05/08/17 05/08/17 05:30 05:45 05:53 Temperature Pulse Rate 68 94 H Pulse Rate [ 88 Anterior Bilateral Throughout] Pulse Rate [ From Monitor] Respiratory 15 21 Rate Respiratory 16 Rate [Anterior Bilateral Throughout] Blood Pressure 109/47 114/54 O2 Sat by Pulse 100 99 Oximetry 05/08/17 05/08/17 05/08/17 06:00 06:06 06:15 Temperature Pulse Rate 88 93 H Pulse Rate [ 91 H Anterior Bilateral Throughout] Pulse Rate [ From Monitor] Respiratory 17 18 Rate Respiratory 16 Rate [Anterior Bilateral Throughout] Blood Pressure 113/71 124/53 O2 Sat by Pulse 100 100 Oximetry 05/08/17 05/08/17 05/08/17 06:30 06:45 07:00 Temperature Pulse Rate 92 H 96 H 91 H Pulse Rate [ Anterior Bilateral Throughout] Pulse Rate [ From Monitor] Respiratory 21 23 19 Rate Respiratory Rate [Anterior Bilateral Throughout] Blood Pressure 133/63 138/72 146/74 O2 Sat by Pulse 100 99 100 Oximetry 05/08/17 05/08/17 05/08/17 07:15 07:30 07:45 Temperature Pulse Rate 112 H 99 H 86 Pulse Rate [ Anterior Bilateral Throughout] Pulse Rate [ From Monitor] Respiratory 19 23 20 Rate Respiratory Rate [Anterior Bilateral Throughout] Blood Pressure 122/75 133/71 121/70 O2 Sat by Pulse 100 100 100 Oximetry 05/08/17 05/08/17 05/08/17 07:50 08:00 08:15 Temperature 97.9 F Pulse Rate 91 H 90 Pulse Rate [ Anterior Bilateral Throughout] Pulse Rate [ 88 From Monitor] Respiratory 19 18 20 Rate Respiratory Rate [Anterior Bilateral Throughout] Blood Pressure 122/72 129/63 O2 Sat by Pulse 100 100 100 Oximetry 05/08/17 05/08/17 05/08/17 08:22 08:23 08:30 Temperature Pulse Rate 109 H Pulse Rate [ 96 H Anterior Bilateral Throughout] Pulse Rate [ From Monitor] Respiratory 21 Rate Respiratory 22 Rate [Anterior Bilateral Throughout] Blood Pressure 128/71 O2 Sat by Pulse 100 100 Oximetry 05/08/17 08:46 Temperature Pulse Rate 116 H Pulse Rate [ Anterior Bilateral Throughout] Pulse Rate [ From Monitor] Respiratory 19 Rate Respiratory Rate [Anterior Bilateral Throughout] Blood Pressure 124/82 O2 Sat by Pulse 99 Oximetry Constitutional: alert, appears uncomfortable ENT: oropharynx moist Neck: supple, no lymphadenopathy, no JVD, other (right IJ line) Ascultation: Bilateral: clear, diminished breath sounds, wheezes (mild) Percussion: Bilateral: not dull Cardiovascular: regular rate and rhythm Gastrointestinal: normoactive bowel sounds, tender (mild no rebound,some bloating) Integumentary: normal Extremities: no cyanosis, no edema Neurologic: normal mental status, non-focal exam, pupils equal and round, CN II- XII normal, motor strength normal and Psychiatric: anxious CBC and BMP: 05/08/17 05:45 05/08/17 05:45 ABG, PT/INR, D-dimer: ABG POC ABG pH TNR 05/07/17 11:57 POC ABG pCO2 TNR 05/07/17 11:57 POC ABG pO2 TNR 05/07/17 11:57 POC ABG HCO3 TNR 05/07/17 11:57 POC ABG Total CO2 TNR 05/07/17 11:57 POC ABG O2 Sat TNR 05/07/17 11:57 PT/INR, D-dimer D-Dimer 8441.57 ng/mlDDU (0-234) H 05/04/17 Unknown Abnormal lab findings: Abnormal Labs 05/04/17 05/04/17 05/04/17 02:20 18:39 18:39 WBC 24.3 H RBC Hgb Hct RDW 16.4 H Plt Count 658 H Seg Neuts % (Manual) 94.5 H Lymphocytes % (Manual) 2.5 L Seg Neutrophils # Man 23.0 H Lymphocytes # (Manual) 0.6 L Monocytes # (Manual) D-Dimer POC ABG pH POC ABG pCO2 POC ABG pO2 Sodium Potassium 3.2 L Chloride 92.6 L Carbon Dioxide 14 L BUN 66 H Creatinine 6.5 H Glucose Lactic Acid Calcium 7.5 L Ionized Calcium Phosphorus Magnesium ALT 5 L Alkaline Phosphatase 32 L Total Creatine Kinase CK-MB (CK-2) Troponin T C-Reactive Protein Total Protein 5.4 L Albumin 3.0 L Urine WBC (Auto) 100.0 H Urine Creatinine Salicylates 05/04/17 05/04/17 05/04/17 18:39 18:55 Unknown WBC RBC Hgb Hct RDW Plt Count Seg Neuts % (Manual) Lymphocytes % (Manual) Seg Neutrophils # Man Lymphocytes # (Manual) Monocytes # (Manual) D-Dimer POC ABG pH POC ABG pCO2 POC ABG pO2 Sodium Potassium Chloride Carbon Dioxide BUN Creatinine Glucose Lactic Acid 0.40 L Calcium Ionized Calcium Phosphorus Magnesium ALT Alkaline Phosphatase Total Creatine Kinase 155 H CK-MB (CK-2) 4.5 H Troponin T 0.033 H C-Reactive Protein Total Protein Albumin Urine WBC (Auto) Urine Creatinine Salicylates 0.3 L 05/04/17 05/04/17 05/04/17 Unknown Unknown Unknown WBC RBC Hgb Hct RDW Plt Count Seg Neuts % (Manual) Lymphocytes % (Manual) Seg Neutrophils # Man Lymphocytes # (Manual) Monocytes # (Manual) D-Dimer 8441.57 H POC ABG pH POC ABG pCO2 POC ABG pO2 Sodium Potassium Chloride Carbon Dioxide BUN Creatinine Glucose Lactic Acid 0.40 L Calcium Ionized Calcium Phosphorus Magnesium ALT Alkaline Phosphatase Total Creatine Kinase 246 H CK-MB (CK-2) 6.2 H Troponin T C-Reactive Protein Total Protein Albumin Urine WBC (Auto) Urine Creatinine Salicylates 05/05/17 05/05/17 05/05/17 05:20 05:20 05:20 WBC 33.9 H RBC 3.39 L Hgb 9.3 L Hct RDW 16.7 H Plt Count 712 H Seg Neuts % (Manual) 91.0 H Lymphocytes % (Manual) 1.0 L Seg Neutrophils # Man 30.8 H Lymphocytes # (Manual) 0.3 L Monocytes # (Manual) 1.5 H D-Dimer POC ABG pH POC ABG pCO2 POC ABG pO2 Sodium Potassium Chloride Carbon Dioxide 9 L* BUN 53 H Creatinine 5.4 H Glucose Lactic Acid Calcium 6.1 L D Ionized Calcium Phosphorus Magnesium ALT Alkaline Phosphatase Total Creatine Kinase 346 H CK-MB (CK-2) 8.2 H Troponin T C-Reactive Protein Total Protein Albumin Urine WBC (Auto) Urine Creatinine Salicylates 05/05/17 05/05/17 05/05/17 10:43 17:45 17:45 WBC RBC Hgb 8.8 L Hct RDW Plt Count Seg Neuts % (Manual) Lymphocytes % (Manual) Seg Neutrophils # Man Lymphocytes # (Manual) Monocytes # (Manual) D-Dimer POC ABG pH 6.872 L POC ABG pCO2 POC ABG pO2 120 H Sodium Potassium Chloride Carbon Dioxide BUN Creatinine Glucose Lactic Acid Calcium Ionized Calcium 3.5 L Phosphorus Magnesium ALT Alkaline Phosphatase Total Creatine Kinase CK-MB (CK-2) Troponin T C-Reactive Protein Total Protein Albumin Urine WBC (Auto) Urine Creatinine Salicylates 05/05/17 05/05/17 05/05/17 17:45 20:58 Unknown WBC RBC Hgb 9.0 L Hct 29.8 L RDW Plt Count Seg Neuts % (Manual) Lymphocytes % (Manual) Seg Neutrophils # Man Lymphocytes # (Manual) Monocytes # (Manual) D-Dimer POC ABG pH POC ABG pCO2 POC ABG pO2 Sodium Potassium Chloride Carbon Dioxide BUN Creatinine Glucose Lactic Acid Calcium Ionized Calcium Phosphorus 6.20 H Magnesium 1.20 L ALT Alkaline Phosphatase Total Creatine Kinase CK-MB (CK-2) Troponin T C-Reactive Protein Total Protein Albumin Urine WBC (Auto) Urine Creatinine 28.0 H Salicylates 05/06/17 05/06/17 05/06/17 05:09 05:23 07:55 WBC RBC Hgb Hct RDW Plt Count Seg Neuts % (Manual) Lymphocytes % (Manual) Seg Neutrophils # Man Lymphocytes # (Manual) Monocytes # (Manual) D-Dimer POC ABG pH 7.029 L 7.060 L POC ABG pCO2 54.8 H 48.6 H POC ABG pO2 74 L 43 L Sodium Potassium 3.5 L Chloride Carbon Dioxide 18 L D BUN 44 H Creatinine 3.5 H Glucose 252 H Lactic Acid Calcium 5.8 L* Ionized Calcium Phosphorus Magnesium ALT Alkaline Phosphatase Total Creatine Kinase CK-MB (CK-2) Troponin T C-Reactive Protein Total Protein Albumin Urine WBC (Auto) Urine Creatinine Salicylates 05/06/17 05/06/17 05/06/17 07:55 15:28 17:30 WBC RBC Hgb Hct RDW Plt Count Seg Neuts % (Manual) Lymphocytes % (Manual) Seg Neutrophils # Man Lymphocytes # (Manual) Monocytes # (Manual) D-Dimer POC ABG pH 7.066 L POC ABG pCO2 80.9 H POC ABG pO2 65 L Sodium Potassium 3.4 L Chloride Carbon Dioxide BUN 41 H Creatinine 3.2 H Glucose 265 H Lactic Acid Calcium 6.7 L D Ionized Calcium Phosphorus Magnesium ALT Alkaline Phosphatase Total Creatine Kinase CK-MB (CK-2) Troponin T C-Reactive Protein 14.50 H Total Protein Albumin Urine WBC (Auto) Urine Creatinine Salicylates 05/06/17 05/07/17 05/07/17 Unknown 10:18 11:32 WBC 39.2 H 32.9 H RBC 3.27 L Hgb 9.3 L Hct 30.2 L RDW 16.4 H 17.0 H Plt Count 645 H 467 H Seg Neuts % (Manual) Lymphocytes % (Manual) 11.0 L Seg Neutrophils # Man 21.2 H Lymphocytes # (Manual) Monocytes # (Manual) 2.0 H D-Dimer POC ABG pH 7.290 L POC ABG pCO2 48.3 H POC ABG pO2 51 L Sodium Potassium Chloride Carbon Dioxide BUN Creatinine Glucose Lactic Acid Calcium Ionized Calcium Phosphorus Magnesium ALT Alkaline Phosphatase Total Creatine Kinase CK-MB (CK-2) Troponin T C-Reactive Protein Total Protein Albumin Urine WBC (Auto) Urine Creatinine Salicylates 05/07/17 05/08/17 05/08/17 12:36 05:45 05:45 WBC 31.1 H RBC 3.41 L Hgb 9.8 L Hct RDW 16.9 H Plt Count Seg Neuts % (Manual) 96.0 H Lymphocytes % (Manual) 1.0 L Seg Neutrophils # Man 29.9 H Lymphocytes # (Manual) 0.3 L Monocytes # (Manual) D-Dimer POC ABG pH POC ABG pCO2 POC ABG pO2 Sodium 146 H 150 H Potassium 3.1 L Chloride 109.2 H 115.4 H Carbon Dioxide 20 L 20 L BUN 38 H 39 H Creatinine 2.7 H 2.4 H Glucose 213 H 160 H Lactic Acid Calcium 6.6 L 6.6 L Ionized Calcium Phosphorus Magnesium 1.40 L ALT 6 L Alkaline Phosphatase Total Creatine Kinase CK-MB (CK-2) Troponin T C-Reactive Protein Total Protein 4.1 L D Albumin 2.0 L Urine WBC (Auto) Urine Creatinine Salicylates
[2017-05-08] MEDS: PEPCID IV SCH (10:53)
[2017-05-08] MEDS: HEPARIN SUB-Q SCH ×2 (10:53→22:05)
--- NOTE | 2017-05-08 10:56 | Progress Note ---
Assessment and Plan Assessment: 1) Shock - multifactorial (hypovolemic/dehydration + septic): BETTER less pressors and leukocytosis. Septic component etiology C diff colitis +/- UTI. CRP=14 2) C diff Colitis: severe-recently exposed to broad spectrum abx. CT abd showed colitis. 3) UTI-mild ? reactive from colitis 4) LUIS 6) COPD Plan: -continue vancomycin retention enemas QID per pharmacy protocol day 2 of 3 -continue PO vanco at 250 mg QID and IV flagyl QID day 4 of 14 -KUB today - pending -f/u procalcitonin Thank you Dr Elliott for your consultation, will follow up with you. Winifred Guerrero MD Infectious Diseases Specialist [facility] [phone] O [phone] Subjective Date of service: 05/08/17 Principal diagnosis: severe sepsis, combined shock,colitis,LUIS,COPD Interval history: Improving no fever, tolerating well vanco enemas, talking, only on levophed at 3 Microbiology: Blood cultures: 05/05 bgtd Urine cultures: Respiratory cultures: Wound cultures: Stool cultures: C diff 05/04 POSITIVE Current Antimicrobials: Vancomycin PO 05/05 Vanco rectal 05/07 Metronidazole 05/05 Previous Antimicrobials: Zosyn Levaquin Vancomycin PO Metronidazole Objective - Exam Narrative Exam: General appearance: Alert in NAD, conversant Eyes: anicteric sclerae, moist conjunctivae; no lid-lag; PERRLA HENT: Atraumatic; oropharynx clear vey dry oral mucosa Neck: Trachea midline; supple, no thyromegaly or lymphadenopathy Lungs: CTA, with normal respiratory effort and no intercostal retractions CV: tachy Abdomen: Soft, diffuse tenderness Extremities: No peripheral edema or extremity lymphadenopathy Skin: Normal temperature, turgor and texture; no rash, ulcers or subcutaneous nodules Psych: Appropriate affect, alert and oriented to person, place and time. Neuro: alert and oriented x 3. Moving all extermities Lines: right SC TLC - Constitutional Vitals: Vital Signs Temp Pulse Resp BP Pulse Ox 97.9 F 116 H 19 124/82 99 05/08/17 08:00 05/08/17 08:46 05/08/17 08:46 05/08/17 08:46 05/08/17 08:46 Temperature -Last 24 Hours Temperature 97.9 F Temperature 98.9 F Temperature 98.7 F Temperature 98.8 F Temperature 98.6 F Temperature 98.3 F - Labs CBC & Chem 7: 05/08/17 05:45 05/08/17 05:45 Labs: Abnormal lab results 05/05/17 05/07/17 05/07/17 Range/Units 17:45 10:18 11:32 WBC 32.9 H (4.5-11.0) K/mm3 RBC (3.65-5.03) M/mm3 Hgb (10.1-14.3) gm/dl RDW 17.0 H (13.2-15.2) % Plt Count 467 H (140-440) K/mm3 Seg Neuts % (Manual) (40.0-70.0) % Lymphocytes % (Manual) (13.4-35.0) % Seg Neutrophils # Man (1.8-7.7) K/mm3 Lymphocytes # (Manual) (1.2-5.4) K/mm3 POC ABG pH 7.290 L (7.35-7.45) POC ABG pCO2 48.3 H (35-45) POC ABG pO2 51 L (80-105) Sodium (137-145) mmol/L Potassium (3.6-5.0) mmol/L Chloride (98-107) mmol/L Carbon Dioxide (22-30) mmol/L BUN (7-17) mg/dL Creatinine (0.7-1.2) mg/dL Glucose (65-100) mg/dL Calcium (8.4-10.2) mg/dL Ionized Calcium 3.5 L (4.8-5.6) mg/dL Magnesium (1.7-2.3) mg/dL ALT (7-56) units/L Total Protein (6.3-8.2) g/dL Albumin (3.9-5) g/dL 05/07/17 05/08/17 05/08/17 Range/Units 12:36 05:45 05:45 WBC 31.1 H (4.5-11.0) K/mm3 RBC 3.41 L (3.65-5.03) M/mm3 Hgb 9.8 L (10.1-14.3) gm/dl RDW 16.9 H (13.2-15.2) % Plt Count (140-440) K/mm3 Seg Neuts % (Manual) 96.0 H (40.0-70.0) % Lymphocytes % (Manual) 1.0 L (13.4-35.0) % Seg Neutrophils # Man 29.9 H (1.8-7.7) K/mm3 Lymphocytes # (Manual) 0.3 L (1.2-5.4) K/mm3 POC ABG pH (7.35-7.45) POC ABG pCO2 (35-45) POC ABG pO2 (80-105) Sodium 146 H 150 H (137-145) mmol/L Potassium 3.1 L (3.6-5.0) mmol/L Chloride 109.2 H 115.4 H (98-107) mmol/L Carbon Dioxide 20 L 20 L (22-30) mmol/L BUN 38 H 39 H (7-17) mg/dL Creatinine 2.7 H 2.4 H (0.7-1.2) mg/dL Glucose 213 H 160 H (65-100) mg/dL Calcium 6.6 L 6.6 L (8.4-10.2) mg/dL Ionized Calcium (4.8-5.6) mg/dL Magnesium 1.40 L (1.7-2.3) mg/dL ALT 6 L (7-56) units/L Total Protein 4.1 L D (6.3-8.2) g/dL Albumin 2.0 L (3.9-5) g/dL
--- NOTE | 2017-05-08 11:09 | Progress Note ---
Assessment and Plan Assessment and plan: 61-year-old AA female with a history of COPD, hypertension and hyperlipidemia who presents with a 1 week of nonstop watery diarrhea, abdominal pain and weakness. Septic shock/severe sepsis weaned off pressors today, continue IV fluids, continue antibiotics Infectious disease consult appreciated Acute infectious colitis due to C. difficile continue abx, contact isolation, Continue oral vancomycin and IV Flagyl -start clear liquid diet and advance as tolerated COPD Continue oxygen, nebs and steroids Hypernatremia/dehydration -replace Free water deficit with d5w Metabolic acidosis due to sepsis, sp bicarb drip Acute Renal Failure due to ATN Nephrology consult appreciated -continue IVF improving The high probability of a clinically significant, sudden or life threatening deterioration of the [cv, pulmonary, Gi] system(s) required my full and direct attention, intervention and personal management. The aggregate critical care time was [44] minutes. This time is in addition to time spent performing reported procedures but includes the following: [] Data Review and interpretation [] Patient assessment and monitoring of vital signs [] Documentation [] Medication orders and management History Interval history: Diarrhea and abdominal pain is improved today Hospitalist Physical - Physical exam Narrative exam: General.: Appears well, no distress, nontoxic HEENT: Moist mucous membranes, extraocular muscles intact, no lymphadenopathy Neck: supple Cardiac: S1-S2 heard Lungs: clear to auscultation bilaterally Abdomen: soft , diffuse tenderness, nondistended, bowel sounds positive Extremities: no edema clubbing or cyanosis Skin: no rash or lesions Neurologic: no gross focal deficits Psych: appropriate behavior, appropriate mood, corporative, judgment intact - Constitutional Vitals: Temp Pulse Resp BP Pulse Ox 97.9 F 116 H 19 124/82 99 05/08/17 08:00 05/08/17 08:46 05/08/17 08:46 05/08/17 08:46 05/08/17 08:46 General appearance: Present: other (on BIPAP) Results - Labs CBC & Chem 7: 05/08/17 05:45 05/08/17 05:45 Labs: Laboratory Last Values WBC 31.1 K/mm3 (4.5-11.0) H 05/08/17 05:45 RBC 3.41 M/mm3 (3.65-5.03) L 05/08/17 05:45 Hgb 9.8 gm/dl (10.1-14.3) L 05/08/17 05:45 Hct 30.6 % (30.3-42.9) 05/08/17 05:45 MCV 90 fl (79-97) 05/08/17 05:45 MCH 29 pg (28-32) 05/08/17 05:45 MCHC 32 % (30-34) 05/08/17 05:45 RDW 16.9 % (13.2-15.2) H 05/08/17 05:45 Plt Count 429 K/mm3 (140-440) 05/08/17 05:45 Add Manual Diff Complete 05/08/17 05:45 Total Counted 100 05/08/17 05:45 Seg Neutrophils % File Clerk Data Entry 05/08/17 05:45 Seg Neuts % (Manual) 96.0 % (40.0-70.0) H 05/08/17 05:45 Band Neutrophils % 3.0 % 05/08/17 05:45 Lymphocytes % (Manual) 1.0 % (13.4-35.0) L 05/08/17 05:45 Reactive Lymphs % (Man) 0 % 05/08/17 05:45 Monocytes % (Manual) 0 % (0.0-7.3) 05/08/17 05:45 Eosinophils % (Manual) 0 % (0.0-4.3) 05/08/17 05:45 Basophils % (Manual) 0 % (0.0-1.8) 05/08/17 05:45 Metamyelocytes % 0 % 05/08/17 05:45 Myelocytes % 0 % 05/08/17 05:45 Promyelocytes % 0 % 05/08/17 05:45 Blast Cells % 0 % 05/08/17 05:45 Nucleated RBC % Not Reportable 05/08/17 05:45 Seg Neutrophils # Man 29.9 K/mm3 (1.8-7.7) H 05/08/17 05:45 Band Neutrophils # 0.9 K/mm3 05/08/17 05:45 Lymphocytes # (Manual) 0.3 K/mm3 (1.2-5.4) L 05/08/17 05:45 Abs React Lymphs (Man) 0.0 K/mm3 05/08/17 05:45 Monocytes # (Manual) 0.0 K/mm3 (0.0-0.8) 05/08/17 05:45 Eosinophils # (Manual) 0.0 K/mm3 (0.0-0.4) 05/08/17 05:45 Basophils # (Manual) 0.0 K/mm3 (0.0-0.1) 05/08/17 05:45 Metamyelocytes # 0.0 K/mm3 05/08/17 05:45 Myelocytes # 0.0 K/mm3 05/08/17 05:45 Promyelocytes # 0.0 K/mm3 05/08/17 05:45 Blast Cells # 0.0 K/mm3 05/08/17 05:45 WBC Morphology Not Reportable 05/08/17 05:45 Hypersegmented Neuts Not Reportable 05/08/17 05:45 Hyposegmented Neuts Not Reportable 05/08/17 05:45 Hypogranular Neuts Not Reportable 05/08/17 05:45 Smudge Cells Not Reportable 05/08/17 05:45 Toxic Granulation Not Reportable 05/08/17 05:45 Toxic Vacuolation Not Reportable 05/08/17 05:45 Dohle Bodies Not Reportable 05/08/17 05:45 Pelger-Huet Anomaly Not Reportable 05/08/17 05:45 Neisha Rods Not Reportable 05/08/17 05:45 Platelet Estimate Appears normal 05/08/17 05:45 Clumped Platelets Not Reportable 05/08/17 05:45 Plt Clumps, EDTA Not Reportable 05/08/17 05:45 Large Platelets Not Reportable 05/08/17 05:45 Giant Platelets Not Reportable 05/08/17 05:45 Platelet Satelliting Not Reportable 05/08/17 05:45 Plt Morphology Comment Not Reportable 05/08/17 05:45 RBC Morphology Not Reportable 05/08/17 05:45 Dimorphic RBCs Not Reportable 05/08/17 05:45 Polychromasia Not Reportable 05/08/17 05:45 Hypochromasia Not Reportable 05/08/17 05:45 Poikilocytosis 1+ 05/08/17 05:45 Anisocytosis 1+ 05/08/17 05:45 Microcytosis Not Reportable 05/08/17 05:45 Macrocytosis Not Reportable 05/08/17 05:45 Spherocytes Not Reportable 05/08/17 05:45 Pappenheimer Bodies Not Reportable 05/08/17 05:45 Sickle Cells Not Reportable 05/08/17 05:45 Target Cells Not Reportable 05/08/17 05:45 Tear Drop Cells Few 05/08/17 05:45 Ovalocytes 1+ 05/08/17 05:45 Helmet Cells Not Reportable 05/08/17 05:45 Frankel-[place] Bodies Not Reportable 05/08/17 05:45 [place] Rings Not Reportable 05/08/17 05:45 [place] Cells Few 05/08/17 05:45 Bite Cells Not Reportable 05/08/17 05:45 Crenated Cell Not Reportable 05/08/17 05:45 Elliptocytes Few 05/08/17 05:45 Acanthocytes (Spur) Not Reportable 05/08/17 05:45 Rouleaux Not Reportable 05/08/17 05:45 Hemoglobin C Crystals Not Reportable 05/08/17 05:45 Schistocytes Not Reportable 05/08/17 05:45 Malaria parasites Not Reportable 05/08/17 05:45 Herve Bodies Not Reportable 05/08/17 05:45 Hem Pathologist Commnt No 05/08/17 05:45 D-Dimer 8441.57 ng/mlDDU (0-234) H 05/04/17 Unknown POC ABG pH TNR 05/07/17 11:57 POC ABG pCO2 TNR 05/07/17 11:57 POC ABG pO2 TNR 05/07/17 11:57 POC ABG HCO3 TNR 05/07/17 11:57 POC ABG Total CO2 TNR 05/07/17 11:57 POC ABG O2 Sat TNR 05/07/17 11:57 POC ABG Base Excess TNR 05/07/17 11:57 FiO2 TNR 05/07/17 11:57 Sodium 150 mmol/L (137-145) H 05/08/17 05:45 Potassium 3.9 mmol/L (3.6-5.0) D 05/08/17 05:45 Chloride 115.4 mmol/L (98-107) H 05/08/17 05:45 Carbon Dioxide 20 mmol/L (22-30) L 05/08/17 05:45 Anion Gap 19 mmol/L 05/08/17 05:45 BUN 39 mg/dL (7-17) H 05/08/17 05:45 Creatinine 2.4 mg/dL (0.7-1.2) H 05/08/17 05:45 Estimated GFR 25 ml/min 05/08/17 05:45 BUN/Creatinine Ratio 16 % 05/08/17 05:45 Glucose 160 mg/dL (65-100) H 05/08/17 05:45 POC Glucose 75 (70-105) 05/04/17 18:31 Lactic Acid 0.40 mmol/L (0.7-2.0) L 05/04/17 Unknown Calcium 6.6 mg/dL (8.4-10.2) L 05/08/17 05:45 Ionized Calcium 3.5 mg/dL (4.8-5.6) L 05/05/17 17:45 Phosphorus 4.50 mg/dL (2.5-4.5) 05/08/17 05:45 Magnesium 1.40 mg/dL (1.7-2.3) L 05/08/17 05:45 Total Bilirubin < 0.20 mg/dL (0.1-1.2) 05/08/17 05:45 AST 20 units/L (5-40) 05/08/17 05:45 ALT 6 units/L (7-56) L 05/08/17 05:45 Alkaline Phosphatase 51 units/L (35-129) 05/08/17 05:45 Total Creatine Kinase 346 units/L (30-135) H 05/05/17 05:20 CK-MB (CK-2) 8.2 ng/mL (0.0-4.0) H 05/05/17 05:20 CK-MB (CK-2) Rel Index 2.3 (0-4) 05/05/17 05:20 Troponin T 0.027 ng/mL (0.00-0.029) 05/05/17 05:20 C-Reactive Protein 14.50 mg/dL (0.00-1.30) H 05/06/17 07:55 Total Protein 4.1 g/dL (6.3-8.2) L D 05/08/17 05:45 Albumin 2.0 g/dL (3.9-5) L 05/08/17 05:45 Albumin/Globulin Ratio 1.0 % 05/08/17 05:45 Triglycerides 149 mg/dL (2-149) 05/04/17 18:55 Cholesterol 185 mg/dL (50-199) 05/04/17 18:55 LDL Cholesterol Direct 103 mg/dL (50-130) 05/04/17 18:55 HDL Cholesterol 53 mg/dL (40-59) 05/04/17 18:55 Cholesterol/HDL Ratio 3.49 % 05/04/17 18:55 TSH 1.780 mlU/mL (0.270-4.200) 05/04/17 18:39 Urine Color Carol (Yellow) 05/04/17 02:20 Urine Turbidity Clear (Clear) 05/04/17 02:20 Urine pH 5.0 (5.0-7.0) 05/04/17 02:20 Ur Specific [place] 1.018 (1.003-1.030) 05/04/17 02:20 Urine Protein 30 mg/dl mg/dL (Negative) 05/04/17 02:20 Urine Glucose (UA) Neg mg/dL (Negative) 05/04/17 02:20 Urine Ketones Tr mg/dL (Negative) 05/04/17 02:20 Urine Blood Lg (Negative) 05/04/17 02:20 Urine Nitrite Neg (Negative) 05/04/17 02:20 Urine Bilirubin Neg (Negative) 05/04/17 02:20 Urine Urobilinogen < 2.0 mg/dL (<2.0) 05/04/17 02:20 Ur Leukocyte Esterase Sm (Negative) 05/04/17 02:20 Urine WBC (Auto) 100.0 /HPF (0.0-6.0) H 05/04/17 02:20 Urine RBC (Auto) 44.0 /HPF (0.0-6.0) 05/04/17 02:20 U Epithel Cells (Auto) 2.0 /HPF (0-13.0) 05/04/17 02:20 Urine Bacteria (Auto) 1+ /HPF (Negative) 05/04/17 02:20 Urine Mucus Few /HPF 05/04/17 02:20 Urine Creatinine 28.0 mg/dL (0.1-20.0) H 05/05/17 Unknown Urine Sodium 129 mmol/L 05/05/17 Unknown Urine Potassium 3.67 mmol/L 05/05/17 Unknown Urine Chloride 115.6 mmolL (110-250) 05/05/17 Unknown Salicylates 0.3 mg/dL (2.8-20.0) L 05/04/17 18:39 Urine Opiates Screen Presumptive negative 05/04/17 02:20 Urine Methadone Screen Presumptive negative 05/04/17 02:20 Acetaminophen < 15.0 ug/mL (10.0-30.0) 05/04/17 18:39 Ur Barbiturates Screen Presumptive negative 05/04/17 02:20 Ur Phencyclidine Scrn Presumptive negative 05/04/17 02:20 Ur Amphetamines Screen Presumptive negative 05/04/17 02:20 U Benzodiazepines Scrn Presumptive negative 05/04/17 02:20 Urine Cocaine Screen Presumptive negative 05/04/17 02:20 U Marijuana (THC) Screen Presumptive negative 05/04/17 02:20 Drugs of Abuse Note Disclamer 05/04/17 02:20 Plasma/Serum Alcohol < 0.01 gm% (0-0.07) 05/04/17 18:39
[2017-05-08] MEDS: D5W 1,000 ML IV SCH ×2 (11:41→23:47)
--- NOTE | 2017-05-08 13:34 | XRay Report ---
Single view abdomen: History: Evaluate for toxic megacolon. Findings: No bowel distention or wall thickening. No radiopaque calculus or abnormal calcification. Impression: Essentially negative abdomen.
[2017-05-08 17:11] LABS: Potassium TNR mmol/L (3.6-5.0); Sodium TNR mmol/L (137-145)
[2017-05-08 17:13] LABS: Anion Gap TNR mmol/L; BUN/Creatinine Ratio TNR; Blood Urea Nitrogen TNR mg/dL (7-17); Carbon Dioxide TNR mmol/L (22-30); Chloride TNR mmol/L (98-107)
[2017-05-08 17:14] LABS: Calcium TNR mg/dL (8.4-10.2); Glucose TNR mg/dL (65-100)
[2017-05-08 19:33] LABS: Calcium 7.2 mg/dL (8.4-10.2); Chloride 112.2 mmol/L (98-107)
[2017-05-08 19:53] LABS: Potassium 4.6 mmol/L (3.6-5.0)
[2017-05-09] MEDS: VANCOMYCIN PO PO SCH ×4 (00:07→21:08)
[2017-05-09] MEDS: D5W 1,000 ML IV SCH (00:30)
[2017-05-09 04:44] LABS: Alanine Aminotransferase 6 units/L (7-56); Albumin/Globulin Ratio 1.3 %; Alkaline Phosphatase 31 units/L (35-129); Anion Gap 20 mmol/L; BUN/Creatinine Ratio 19; Bilirubin,Total < 0.20 mg/dL (0.1-1.2); Blood Urea Nitrogen 39 mg/dL (7-17); Calcium 6.6 mg/dL (8.4-10.2); Carbon Dioxide 19 mmol/L (22-30); Chloride 94.6 mmol/L (98-107); Potassium 3.4 mmol/L (3.6-5.0); Sodium 130 mmol/L (137-145); Total Protein 3.5 g/dL (6.3-8.2)
[2017-05-09 04:47] LABS: Glucose 549 mg/dL (65-100)
[2017-05-09 05:49] LABS: Mean Corpuscular HGB Conc 31 % (30-34); Mean Corpuscular Hemoglobin 29 pg (28-32); Mean Corpuscular Volume 92 fl (79-97); Platelet Count 336 K/mm3 (140-440); Red Blood Count 3.83 M/mm3 (3.65-5.03); Red Cell Distribution Width 17.6 % (13.2-15.2)
[2017-05-09 05:50] LABS: White Blood Count 26.1 K/mm3 (4.5-11.0)
[2017-05-09] MEDS: FLAGYL 500 MG/100 ML 500 MG/100 ML BAG IV SCH ×3 (05:59→19:23)
[2017-05-09 06:56] LABS: Basophils % (Manual) 0 % (0.0-1.8); Blastocytes % (Manual) 0 %; Eosinophils % (Manual) 0 % (0.0-4.3)
[2017-05-09 06:57] LABS: Anisocytosis 1+; Diff Status Complete; Ovalocytes 1+; Poikilocytosis Rare
[2017-05-09 08:41] LABS: Alanine Aminotransferase 7 units/L (7-56); Albumin 2.3 g/dL (3.9-5); Albumin/Globulin Ratio 1.4 %; Alkaline Phosphatase 35 units/L (35-129); Anion Gap 19 mmol/L; BUN/Creatinine Ratio 18; Bilirubin,Total < 0.20 mg/dL (0.1-1.2); Blood Urea Nitrogen 43 mg/dL (7-17); Calcium 7.1 mg/dL (8.4-10.2); Carbon Dioxide 21 mmol/L (22-30); Chloride 107.8 mmol/L (98-107); Glucose 195 mg/dL (65-100); Potassium 3.8 mmol/L (3.6-5.0); Sodium 144 mmol/L (137-145); Total Protein 3.9 g/dL (6.3-8.2)
[2017-05-09] MEDS: DUONEB *Not for PRN Use IH SCH ×5 (09:14→19:26)
[2017-05-09] MEDS: PEPCID PO SCH (09:53)
[2017-05-09] MEDS: HEPARIN SUB-Q SCH ×2 (09:53→23:00)
[2017-05-09] MEDS ORDERED: PROVENTIL IH PRN (10:31)
--- NOTE | 2017-05-09 10:44 | Progress Note ---
Assessment and Plan Assessment and plan: 61-year-old AA female with a history of COPD, hypertension and hyperlipidemia who presents with a 1 week of nonstop watery diarrhea, abdominal pain and weakness. Septic shock/severe sepsis weaned off pressors today, continue IV fluids, continue antibiotics Infectious disease consult appreciated Acute infectious colitis due to C. difficile continue abx, contact isolation, Continue oral vancomycin and IV Flagyl -start clear liquid diet and advance as tolerated COPD Continue oxygen, nebs and steroids Hypernatremia/dehydration -replace Free water deficit with d5w Metabolic acidosis due to sepsis, sp bicarb drip Acute Renal Failure due to ATN Nephrology consult appreciated -continue IVF improving The high probability of a clinically significant, sudden or life threatening deterioration of the [cv, pulmonary, Gi] system(s) required my full and direct attention, intervention and personal management. The aggregate critical care time was [44] minutes. This time is in addition to time spent performing reported procedures but includes the following: [] Data Review and interpretation [] Patient assessment and monitoring of vital signs [] Documentation [] Medication orders and management History Interval history: Diarrhea and abdominal pain is improved today Hospitalist Physical - Physical exam Narrative exam: General.: Appears well, no distress, nontoxic HEENT: Moist mucous membranes, extraocular muscles intact, no lymphadenopathy Neck: supple Cardiac: S1-S2 heard Lungs: clear to auscultation bilaterally Abdomen: soft , diffuse tenderness, nondistended, bowel sounds positive Extremities: no edema clubbing or cyanosis Skin: no rash or lesions Neurologic: no gross focal deficits Psych: appropriate behavior, appropriate mood, corporative, judgment intact - Constitutional Vitals: Temp Pulse Resp BP Pulse Ox 97.3 F L 106 H 20 126/78 99 05/09/17 08:00 05/09/17 10:31 05/09/17 10:31 05/09/17 10:31 05/09/17 10:31 General appearance: Present: other (on BIPAP) Results - Labs CBC & Chem 7: 06/02/17 09:20 06/02/17 07:45 Labs: Laboratory Last Values WBC 26.1 K/mm3 (4.5-11.0) H 05/09/17 04:05 RBC 3.83 M/mm3 (3.65-5.03) 05/09/17 04:05 Hgb 11.0 gm/dl (10.1-14.3) 05/09/17 04:05 Hct 35.0 % (30.3-42.9) 05/09/17 04:05 MCV 92 fl (79-97) 05/09/17 04:05 MCH 29 pg (28-32) 05/09/17 04:05 MCHC 31 % (30-34) 05/09/17 04:05 RDW 17.6 % (13.2-15.2) H 05/09/17 04:05 Plt Count 336 K/mm3 (140-440) 05/09/17 04:05 Add Manual Diff Complete 05/09/17 04:05 Total Counted 100 05/09/17 04:05 Seg Neutrophils % Glove Machine Operator 05/09/17 04:05 Seg Neuts % (Manual) 64.0 % (40.0-70.0) 05/09/17 04:05 Band Neutrophils % 26.0 % 05/09/17 04:05 Lymphocytes % (Manual) 5.0 % (13.4-35.0) L 05/09/17 04:05 Reactive Lymphs % (Man) 0 % 05/09/17 04:05 Monocytes % (Manual) 1.0 % (0.0-7.3) 05/09/17 04:05 Eosinophils % (Manual) 0 % (0.0-4.3) 05/09/17 04:05 Basophils % (Manual) 0 % (0.0-1.8) 05/09/17 04:05 Metamyelocytes % 0 % 05/09/17 04:05 Myelocytes % 0 % 05/09/17 04:05 Promyelocytes % 4.0 % 05/09/17 04:05 Blast Cells % 0 % 05/09/17 04:05 Nucleated RBC % Not Reportable 05/09/17 04:05 Seg Neutrophils # Man 16.7 K/mm3 (1.8-7.7) H 05/09/17 04:05 Band Neutrophils # 6.8 K/mm3 05/09/17 04:05 Lymphocytes # (Manual) 1.3 K/mm3 (1.2-5.4) 05/09/17 04:05 Abs React Lymphs (Man) 0.0 K/mm3 05/09/17 04:05 Monocytes # (Manual) 0.3 K/mm3 (0.0-0.8) 05/09/17 04:05 Eosinophils # (Manual) 0.0 K/mm3 (0.0-0.4) 05/09/17 04:05 Basophils # (Manual) 0.0 K/mm3 (0.0-0.1) 05/09/17 04:05 Metamyelocytes # 0.0 K/mm3 05/09/17 04:05 Myelocytes # 0.0 K/mm3 05/09/17 04:05 Promyelocytes # 1.0 K/mm3 05/09/17 04:05 Blast Cells # 0.0 K/mm3 05/09/17 04:05 WBC Morphology Not Reportable 05/09/17 04:05 Hypersegmented Neuts Not Reportable 05/09/17 04:05 Hyposegmented Neuts Not Reportable 05/09/17 04:05 Hypogranular Neuts Not Reportable 05/09/17 04:05 Smudge Cells Not Reportable 05/09/17 04:05 Toxic Granulation Not Reportable 05/09/17 04:05 Toxic Vacuolation Not Reportable 05/09/17 04:05 Dohle Bodies Not Reportable 05/09/17 04:05 Pelger-Huet Anomaly Not Reportable 05/09/17 04:05 Neisha Rods Not Reportable 05/09/17 04:05 Platelet Estimate Appears normal 05/09/17 04:05 Clumped Platelets Not Reportable 05/09/17 04:05 Plt Clumps, EDTA Not Reportable 05/09/17 04:05 Large Platelets Not Reportable 05/09/17 04:05 Giant Platelets Not Reportable 05/09/17 04:05 Platelet Satelliting Not Reportable 05/09/17 04:05 Plt Morphology Comment Not Reportable 05/09/17 04:05 RBC Morphology Not Reportable 05/09/17 04:05 Dimorphic RBCs Not Reportable 05/09/17 04:05 Polychromasia Not Reportable 05/09/17 04:05 Hypochromasia Not Reportable 05/09/17 04:05 Poikilocytosis Rare 05/09/17 04:05 Anisocytosis 1+ 05/09/17 04:05 Microcytosis Not Reportable 05/09/17 04:05 Macrocytosis Not Reportable 05/09/17 04:05 Spherocytes Not Reportable 05/09/17 04:05 Pappenheimer Bodies Not Reportable 05/09/17 04:05 Sickle Cells Not Reportable 05/09/17 04:05 Target Cells Not Reportable 05/09/17 04:05 Tear Drop Cells Not Reportable 05/09/17 04:05 Ovalocytes 1+ 05/09/17 04:05 Helmet Cells Not Reportable 05/09/17 04:05 [place] Bodies Not Reportable 05/09/17 04:05 [place] Rings Not Reportable 05/09/17 04:05 [place] Cells Not Reportable 05/09/17 04:05 Bite Cells Not Reportable 05/09/17 04:05 Crenated Cell Not Reportable 05/09/17 04:05 Elliptocytes Not Reportable 05/09/17 04:05 Acanthocytes (Spur) Not Reportable 05/09/17 04:05 Rouleaux Not Reportable 05/09/17 04:05 Hemoglobin C Crystals Not Reportable 05/09/17 04:05 Schistocytes Not Reportable 05/09/17 04:05 Malaria parasites Not Reportable 05/09/17 04:05 Herve Bodies Not Reportable 05/09/17 04:05 Hem Pathologist Commnt No 05/09/17 04:05 D-Dimer 8441.57 ng/mlDDU (0-234) H 05/04/17 Unknown POC ABG pH TNR 05/07/17 11:57 POC ABG pCO2 TNR 05/07/17 11:57 POC ABG pO2 TNR 05/07/17 11:57 POC ABG HCO3 TNR 05/07/17 11:57 POC ABG Total CO2 TNR 05/07/17 11:57 POC ABG O2 Sat TNR 05/07/17 11:57 POC ABG Base Excess TNR 05/07/17 11:57 FiO2 TNR 05/07/17 11:57 Sodium 144 mmol/L (137-145) D 05/09/17 08:03 Potassium 3.8 mmol/L (3.6-5.0) 05/09/17 08:03 Chloride 107.8 mmol/L (98-107) H 05/09/17 08:03 Carbon Dioxide 21 mmol/L (22-30) L 05/09/17 08:03 Anion Gap 19 mmol/L 05/09/17 08:03 BUN 43 mg/dL (7-17) H 05/09/17 08:03 Creatinine 2.4 mg/dL (0.7-1.2) H 05/09/17 08:03 Estimated GFR 25 ml/min 05/09/17 08:03 BUN/Creatinine Ratio 18 % 05/09/17 08:03 Glucose 195 mg/dL (65-100) H 05/09/17 08:03 POC Glucose 181 (70-105) H 05/09/17 05:15 Lactic Acid 0.40 mmol/L (0.7-2.0) L 05/04/17 Unknown Calcium 7.1 mg/dL (8.4-10.2) L 05/09/17 08:03 Ionized Calcium 3.5 mg/dL (4.8-5.6) L 05/05/17 17:45 Phosphorus 4.30 mg/dL (2.5-4.5) 05/09/17 04:05 Magnesium 2.10 mg/dL (1.7-2.3) 05/09/17 04:05 Total Bilirubin < 0.20 mg/dL (0.1-1.2) 05/09/17 08:03 AST 13 units/L (5-40) 05/09/17 08:03 ALT 7 units/L (7-56) 05/09/17 08:03 Alkaline Phosphatase 35 units/L (35-129) 05/09/17 08:03 Total Creatine Kinase 346 units/L (30-135) H 05/05/17 05:20 CK-MB (CK-2) 8.2 ng/mL (0.0-4.0) H 05/05/17 05:20 CK-MB (CK-2) Rel Index 2.3 (0-4) 05/05/17 05:20 Troponin T 0.027 ng/mL (0.00-0.029) 05/05/17 05:20 C-Reactive Protein 14.50 mg/dL (0.00-1.30) H 05/06/17 07:55 Total Protein 3.9 g/dL (6.3-8.2) L 05/09/17 08:03 Albumin 2.3 g/dL (3.9-5) L 05/09/17 08:03 Albumin/Globulin Ratio 1.4 % 05/09/17 08:03 Triglycerides 149 mg/dL (2-149) 05/04/17 18:55 Cholesterol 185 mg/dL (50-199) 05/04/17 18:55 LDL Cholesterol Direct 103 mg/dL (50-130) 05/04/17 18:55 HDL Cholesterol 53 mg/dL (40-59) 05/04/17 18:55 Cholesterol/HDL Ratio 3.49 % 05/04/17 18:55 TSH 1.780 mlU/mL (0.270-4.200) 05/04/17 18:39 Urine Color Carol (Yellow) 05/04/17 02:20 Urine Turbidity Clear (Clear) 05/04/17 02:20 Urine pH 5.0 (5.0-7.0) 05/04/17 02:20 Ur Specific [place] 1.018 (1.003-1.030) 05/04/17 02:20 Urine Protein 30 mg/dl mg/dL (Negative) 05/04/17 02:20 Urine Glucose (UA) Neg mg/dL (Negative) 05/04/17 02:20 Urine Ketones Tr mg/dL (Negative) 05/04/17 02:20 Urine Blood Lg (Negative) 05/04/17 02:20 Urine Nitrite Neg (Negative) 05/04/17 02:20 Urine Bilirubin Neg (Negative) 05/04/17 02:20 Urine Urobilinogen < 2.0 mg/dL (<2.0) 05/04/17 02:20 Ur Leukocyte Esterase Sm (Negative) 05/04/17 02:20 Urine WBC (Auto) 100.0 /HPF (0.0-6.0) H 05/04/17 02:20 Urine RBC (Auto) 44.0 /HPF (0.0-6.0) 05/04/17 02:20 U Epithel Cells (Auto) 2.0 /HPF (0-13.0) 05/04/17 02:20 Urine Bacteria (Auto) 1+ /HPF (Negative) 05/04/17 02:20 Urine Mucus Few /HPF 05/04/17 02:20 Urine Creatinine 28.0 mg/dL (0.1-20.0) H 05/05/17 Unknown Urine Sodium 129 mmol/L 05/05/17 Unknown Urine Potassium 3.67 mmol/L 05/05/17 Unknown Urine Chloride 115.6 mmolL (110-250) 05/05/17 Unknown Salicylates 0.3 mg/dL (2.8-20.0) L 05/04/17 18:39 Urine Opiates Screen Presumptive negative 05/04/17 02:20 Urine Methadone Screen Presumptive negative 05/04/17 02:20 Acetaminophen < 15.0 ug/mL (10.0-30.0) 05/04/17 18:39 Ur Barbiturates Screen Presumptive negative 05/04/17 02:20 Ur Phencyclidine Scrn Presumptive negative 05/04/17 02:20 Ur Amphetamines Screen Presumptive negative 05/04/17 02:20 U Benzodiazepines Scrn Presumptive negative 05/04/17 02:20 Urine Cocaine Screen Presumptive negative 05/04/17 02:20 U Marijuana (THC) Screen Presumptive negative 05/04/17 02:20 Drugs of Abuse Note Disclamer 05/04/17 02:20 Plasma/Serum Alcohol < 0.01 gm% (0-0.07) 05/04/17 18:39 Miscellaneous Test Flexitest 1 H 05/06/17 17:30
[2017-05-09] MEDS ORDERED: D50W (25GM) Syringe IV PRN (10:45)
--- NOTE | 2017-05-09 10:50 | Gastroenterology Progress Note ---
Assessment and Plan 1.colitis -afebrile -WBC-26.1-trending down -Abd CT revealed generalized nonspecific colitis -stool positive for WBC and C-diff -ID is following -continue current medications and supportive care -clinically pt is improving with diarrhea and abd pain improving. Now off pressors and tolerating clear liquid diet. -will sign off, please re-consult if needed Subjective Date of service: 05/09/17 Principal diagnosis: colitis Interval history: Pt resting in bed. No acute distres. Clinically pt states is feeling better. Now off of pressors with abd pain and diarrhea improving. BMs x 3 yesterday with no BM so far today.Tolerating clear liquid diet w/o difficulty. Objective - Constitutional Vitals: Temp Pulse Resp BP Pulse Ox 97.3 F L 106 H 20 126/78 99 05/09/17 08:00 05/09/17 10:31 05/09/17 10:31 05/09/17 10:31 05/09/17 10:31 General appearance: no acute distress - EENT Eyes: PERRL, EOM intact ENT: hearing intact - Respiratory Respiratory: bilateral: CTA (anterior) - Cardiovascular Rhythm: other (tachycardia) Heart Sounds: Present: S1 & S2 - Extremities Extremities: No edema - Gastrointestinal General gastrointestinal: Present: soft, tender (mild generalized tenderness ), non-distended, normal bowel sounds - Integumentary Integumentary: Present: warm, dry - Neurologic Neurological: alert and oriented x3 - Labs CBC & Chem 7: 05/09/17 04:05 05/09/17 08:03 Labs: Laboratory Results - last 24 hr 05/06/17 05/08/17 05/08/17 17:30 16:34 18:55 WBC RBC Hgb Hct MCV MCH MCHC RDW Plt Count Add Manual Diff Total Counted Seg Neutrophils % Seg Neuts % (Manual) Band Neutrophils % Lymphocytes % (Manual) Reactive Lymphs % (Man) Monocytes % (Manual) Eosinophils % (Manual) Basophils % (Manual) Metamyelocytes % Myelocytes % Promyelocytes % Blast Cells % Nucleated RBC % Seg Neutrophils # Man Band Neutrophils # Lymphocytes # (Manual) Abs React Lymphs (Man) Monocytes # (Manual) Eosinophils # (Manual) Basophils # (Manual) Metamyelocytes # Myelocytes # Promyelocytes # Blast Cells # WBC Morphology Hypersegmented Neuts Hyposegmented Neuts Hypogranular Neuts Smudge Cells Toxic Granulation Toxic Vacuolation Dohle Bodies Pelger-Huet Anomaly Neisha Rods Platelet Estimate Clumped Platelets Plt Clumps, EDTA Large Platelets Giant Platelets Platelet Satelliting Plt Morphology Comment RBC Morphology Dimorphic RBCs Polychromasia Hypochromasia Poikilocytosis Anisocytosis Microcytosis Macrocytosis Spherocytes Pappenheimer Bodies Sickle Cells Target Cells Tear Drop Cells Ovalocytes Helmet Cells Frankel-[place]era Bodies [place] Rings [place] Cells Bite Cells Crenated Cell Elliptocytes Acanthocytes (Spur) Rouleaux Hemoglobin C Crystals Schistocytes Malaria parasites Herve Bodies Hem Pathologist Commnt Sodium TNR 145 Potassium TNR 4.6 Chloride TNR 112.2 H Carbon Dioxide TNR 18 L Anion Gap TNR 19 BUN TNR 45 H Creatinine TNR 2.3 H Estimated GFR TNR 26 BUN/Creatinine Ratio TNR 20 Glucose TNR 219 H POC Glucose Calcium TNR 7.2 L Phosphorus Magnesium Total Bilirubin AST ALT Alkaline Phosphatase Total Protein Albumin Albumin/Globulin Ratio Miscellaneous Test Flexitest 1 H 05/09/17 05/09/17 05/09/17 04:05 04:05 05:15 WBC 26.1 H RBC 3.83 Hgb 11.0 Hct 35.0 MCV 92 MCH 29 MCHC 31 RDW 17.6 H Plt Count 336 Add Manual Diff Complete Total Counted 100 Seg Neutrophils % Curam Developer Seg Neuts % (Manual) 64.0 Band Neutrophils % 26.0 Lymphocytes % (Manual) 5.0 L Reactive Lymphs % (Man) 0 Monocytes % (Manual) 1.0 Eosinophils % (Manual) 0 Basophils % (Manual) 0 Metamyelocytes % 0 Myelocytes % 0 Promyelocytes % 4.0 Blast Cells % 0 Nucleated RBC % Not Reportable Seg Neutrophils # Man 16.7 H Band Neutrophils # 6.8 Lymphocytes # (Manual) 1.3 Abs React Lymphs (Man) 0.0 Monocytes # (Manual) 0.3 Eosinophils # (Manual) 0.0 Basophils # (Manual) 0.0 Metamyelocytes # 0.0 Myelocytes # 0.0 Promyelocytes # 1.0 Blast Cells # 0.0 WBC Morphology Not Reportable Hypersegmented Neuts Not Reportable Hyposegmented Neuts Not Reportable Hypogranular Neuts Not Reportable Smudge Cells Not Reportable Toxic Granulation Not Reportable Toxic Vacuolation Not Reportable Dohle Bodies Not Reportable Pelger-Huet Anomaly Not Reportable Neisha Rods Not Reportable Platelet Estimate Appears normal Clumped Platelets Not Reportable Plt Clumps, EDTA Not Reportable Large Platelets Not Reportable Giant Platelets Not Reportable Platelet Satelliting Not Reportable Plt Morphology Comment Not Reportable RBC Morphology Not Reportable Dimorphic RBCs Not Reportable Polychromasia Not Reportable Hypochromasia Not Reportable Poikilocytosis Rare Anisocytosis 1+ Microcytosis Not Reportable Macrocytosis Not Reportable Spherocytes Not Reportable Pappenheimer Bodies Not Reportable Sickle Cells Not Reportable Target Cells Not Reportable Tear Drop Cells Not Reportable Ovalocytes 1+ Helmet Cells Not Reportable Frankel-[place] Bodies Not Reportable [place] Rings Not Reportable [place] Cells Not Reportable Bite Cells Not Reportable Crenated Cell Not Reportable Elliptocytes Not Reportable Acanthocytes (Spur) Not Reportable Rouleaux Not Reportable Hemoglobin C Crystals Not Reportable Schistocytes Not Reportable Malaria parasites Not Reportable Herve Bodies Not Reportable Hem Pathologist Commnt No Sodium 130 L D Potassium 3.4 L D Chloride 94.6 L Carbon Dioxide 19 L Anion Gap 20 BUN 39 H Creatinine 2.1 H Estimated GFR 29 BUN/Creatinine Ratio 19 Glucose 549 H* POC Glucose 181 H Calcium 6.6 L Phosphorus 4.30 Magnesium 2.10 Total Bilirubin < 0.20 AST 13 ALT 6 L Alkaline Phosphatase 31 L Total Protein 3.5 L Albumin 2.0 L Albumin/Globulin Ratio 1.3 Miscellaneous Test 05/09/17 05/09/17 05:45 08:03 WBC RBC Hgb Hct MCV MCH MCHC RDW Plt Count Add Manual Diff Total Counted Seg Neutrophils % Seg Neuts % (Manual) Band Neutrophils % Lymphocytes % (Manual) Reactive Lymphs % (Man) Monocytes % (Manual) Eosinophils % (Manual) Basophils % (Manual) Metamyelocytes % Myelocytes % Promyelocytes % Blast Cells % Nucleated RBC % Seg Neutrophils # Man Band Neutrophils # Lymphocytes # (Manual) Abs React Lymphs (Man) Monocytes # (Manual) Eosinophils # (Manual) Basophils # (Manual) Metamyelocytes # Myelocytes # Promyelocytes # Blast Cells # WBC Morphology Hypersegmented Neuts Hyposegmented Neuts Hypogranular Neuts Smudge Cells Toxic Granulation Toxic Vacuolation Dohle Bodies Pelger-Huet Anomaly Neisha Rods Platelet Estimate Clumped Platelets Plt Clumps, EDTA Large Platelets Giant Platelets Platelet Satelliting Plt Morphology Comment RBC Morphology Dimorphic RBCs Polychromasia Hypochromasia Poikilocytosis Anisocytosis Microcytosis Macrocytosis Spherocytes Pappenheimer Bodies Sickle Cells Target Cells Tear Drop Cells Ovalocytes Helmet Cells Frank[place] Bodies [place] Rings [place] Cells Bite Cells Crenated Cell Elliptocytes Acanthocytes (Spur) Rouleaux Hemoglobin C Crystals Schistocytes Malaria parasites Herve Bodies Hem Pathologist Commnt Sodium 144 D Potassium 3.8 Chloride 107.8 H Carbon Dioxide 21 L Anion Gap 19 BUN 43 H Creatinine 2.4 H Estimated GFR 25 BUN/Creatinine Ratio 18 Glucose 189 H 195 H POC Glucose Calcium 7.1 L Phosphorus Magnesium Total Bilirubin < 0.20 AST 13 ALT 7 Alkaline Phosphatase 35 Total Protein 3.9 L Albumin 2.3 L Albumin/Globulin Ratio 1.4 Miscellaneous Test
--- NOTE | 2017-05-09 11:08 | Progress Note ---
Assessment and Plan Assessment: 1) Shock - multifactorial (hypovolemic/dehydration + septic): BETTER off pressors, leukocytosis is down. Septic component etiology C diff colitis. CRP= 14. Procal=2.4. 2) C diff Colitis: severe-recently exposed to broad spectrum abx. CT abd showed colitis. 3) UTI-mild ? reactive from colitis 4) LUIS 6) COPD Plan: -stop vancomycin retention enemas QID per pharmacy protocol -continue PO vanco at 250 mg QID and IV flagyl QID day I will be off this weekend. I will be available over the phone. Thank you Dr Elliott for your consultation, will follow up with you. Winifred Guerrero MD Infectious Diseases Specialist [facility] ([facility]) M [phone] O [phone] Subjective Date of service: 05/09/17 Principal diagnosis: colitis Interval history: Feels better, talking, off pressors Microbiology: Blood cultures: 05/05 bgtd Urine cultures: Respiratory cultures: Wound cultures: Stool cultures: C diff 05/04 POSITIVE Current Antimicrobials: Vancomycin PO 05/05 Vanco rectal 05/07 Metronidazole 05/05 Previous Antimicrobials: Zosyn Levaquin Vancomycin PO Metronidazole Objective - Exam Narrative Exam: General appearance: Alert in NAD, conversant Eyes: anicteric sclerae, moist conjunctivae; no lid-lag; PERRLA HENT: Atraumatic; oropharynx clear vey dry oral mucosa Neck: Trachea midline; supple, no thyromegaly or lymphadenopathy Lungs: CTA, with normal respiratory effort and no intercostal retractions CV: tachy Abdomen: Soft, diffuse tenderness Extremities: No peripheral edema or extremity lymphadenopathy Skin: Normal temperature, turgor and texture; no rash, ulcers or subcutaneous nodules Psych: Appropriate affect, alert and oriented to person, place and time. Neuro: alert and oriented x 3. Moving all extermities Lines: right SC TLC - Constitutional Vitals: Vital Signs Temp Pulse Resp BP Pulse Ox 97.3 F L 106 H 20 126/78 99 05/09/17 08:00 05/09/17 10:31 05/09/17 10:31 05/09/17 10:31 05/09/17 10:31 Temperature -Last 24 Hours Temperature 97.3 F Temperature 97.5 F Temperature 97.4 F Temperature 98.3 F Temperature 97.8 F Temperature 98.0 F - Labs CBC & Chem 7: 05/09/17 04:05 05/09/17 08:03 Labs: Abnormal lab results 05/06/17 05/08/17 05/09/17 Range/Units 17:30 18:55 04:05 WBC 26.1 H (4.5-11.0) K/mm3 RDW 17.6 H (13.2-15.2) % Lymphocytes % (Manual) 5.0 L (13.4-35.0) % Seg Neutrophils # Man 16.7 H (1.8-7.7) K/mm3 Sodium (137-145) mmol/L Potassium (3.6-5.0) mmol/L Chloride 112.2 H (98-107) mmol/L Carbon Dioxide 18 L (22-30) mmol/L BUN 45 H (7-17) mg/dL Creatinine 2.3 H (0.7-1.2) mg/dL Glucose 219 H (65-100) mg/dL POC Glucose (70-105) Calcium 7.2 L (8.4-10.2) mg/dL ALT (7-56) units/L Alkaline Phosphatase (35-129) units/L Total Protein (6.3-8.2) g/dL Albumin (3.9-5) g/dL Miscellaneous Test Flexitest 1 H 05/09/17 05/09/17 05/09/17 Range/Units 04:05 05:15 05:45 WBC (4.5-11.0) K/mm3 RDW (13.2-15.2) % Lymphocytes % (Manual) (13.4-35.0) % Seg Neutrophils # Man (1.8-7.7) K/mm3 Sodium 130 L D (137-145) mmol/L Potassium 3.4 L D (3.6-5.0) mmol/L Chloride 94.6 L (98-107) mmol/L Carbon Dioxide 19 L (22-30) mmol/L BUN 39 H (7-17) mg/dL Creatinine 2.1 H (0.7-1.2) mg/dL Glucose 549 H* 189 H (65-100) mg/dL POC Glucose 181 H (70-105) Calcium 6.6 L (8.4-10.2) mg/dL ALT 6 L (7-56) units/L Alkaline Phosphatase 31 L (35-129) units/L Total Protein 3.5 L (6.3-8.2) g/dL Albumin 2.0 L (3.9-5) g/dL Miscellaneous Test 05/09/17 Range/Units 08:03 WBC (4.5-11.0) K/mm3 RDW (13.2-15.2) % Lymphocytes % (Manual) (13.4-35.0) % Seg Neutrophils # Man (1.8-7.7) K/mm3 Sodium (137-145) mmol/L Potassium (3.6-5.0) mmol/L Chloride 107.8 H (98-107) mmol/L Carbon Dioxide 21 L (22-30) mmol/L BUN 43 H (7-17) mg/dL Creatinine 2.4 H (0.7-1.2) mg/dL Glucose 195 H (65-100) mg/dL POC Glucose (70-105) Calcium 7.1 L (8.4-10.2) mg/dL ALT (7-56) units/L Alkaline Phosphatase (35-129) units/L Total Protein 3.9 L (6.3-8.2) g/dL Albumin 2.3 L (3.9-5) g/dL Miscellaneous Test
[2017-05-09] MEDS: NOVOLOG SUB-Q SCH ×3 (11:33→23:06)
--- NOTE | 2017-05-09 12:24 | Progress Note ---
Assessment and Plan Shock. Resolved, off pressors Hypernatremia. fluids adjusted Severe sepsis with MSOF, secondary to GI source,colitis. Positive C. difficile. Improving WBC Antibiotics adjusted per ID recommendations Acute gastroenteritis/C. difficile. Abdominal CT showing colitis, mild ascites COPD, controlled Metabolic/respiratory acidosis,AG acidosis. Needs ABG on date Hypocalcemia with hypoalbuminemia. Corrected PHT on echo, severe. Anemia. Stool OB + A/C kidney injury. Nephrology following Hyperglicemia- D5W,steroids,infection Recommendations Change fluids to 0.45 NSS at 60-75 cc/hr Decrease solu-medrol. DC later if not wheezing?? Monitor BS Progress diet as tolerated Serial BP monitoring Monitor UO, keep > 30 cc/ hr Complete antibiotics per ID Probably OK to transfer out at this point. Discussed orders with RN. Updated patient in detail. All questions answered. No family members available for case discussion Critical care time was 31 minutes of [id number] evaluation and coordination of care Subjective Date of service: 05/09/17 Principal diagnosis: Septic shock,C. diff colitis Interval history: Better today.No SOB or cough.Poor appetite. BM x 1.Pain is better Objective Vital Signs - 12hr 05/09/17 05/09/17 05/09/17 00:31 00:45 01:00 Temperature Pulse Rate 79 95 H 75 Pulse Rate [ Anterior Bilateral Throughout] Pulse Rate [ From Monitor] Respiratory 10 L 10 L 11 L Rate Respiratory Rate [Anterior Bilateral Throughout] Blood Pressure 99/53 99/53 106/55 O2 Sat by Pulse 100 100 100 Oximetry 05/09/17 05/09/17 05/09/17 01:15 01:31 01:45 Temperature Pulse Rate 82 80 80 Pulse Rate [ Anterior Bilateral Throughout] Pulse Rate [ From Monitor] Respiratory 10 L 12 11 L Rate Respiratory Rate [Anterior Bilateral Throughout] Blood Pressure 106/55 106/55 106/55 O2 Sat by Pulse 100 100 100 Oximetry 05/09/17 05/09/17 05/09/17 02:00 02:15 02:31 Temperature Pulse Rate 79 83 69 Pulse Rate [ Anterior Bilateral Throughout] Pulse Rate [ From Monitor] Respiratory 12 12 13 Rate Respiratory Rate [Anterior Bilateral Throughout] Blood Pressure 113/57 106/55 106/55 O2 Sat by Pulse 100 100 100 Oximetry 05/09/17 05/09/17 05/09/17 02:45 03:00 03:15 Temperature Pulse Rate 88 92 H 81 Pulse Rate [ Anterior Bilateral Throughout] Pulse Rate [ From Monitor] Respiratory 15 15 15 Rate Respiratory Rate [Anterior Bilateral Throughout] Blood Pressure 106/55 114/61 114/61 O2 Sat by Pulse 100 100 100 Oximetry 05/09/17 05/09/17 05/09/17 03:31 03:37 03:45 Temperature 97.5 F L Pulse Rate 101 H 91 H Pulse Rate [ Anterior Bilateral Throughout] Pulse Rate [ From Monitor] Respiratory 17 16 Rate Respiratory Rate [Anterior Bilateral Throughout] Blood Pressure 114/61 114/61 O2 Sat by Pulse 99 100 Oximetry 05/09/17 05/09/17 05/09/17 04:00 04:15 04:31 Temperature Pulse Rate 89 118 H 81 Pulse Rate [ Anterior Bilateral Throughout] Pulse Rate [ From Monitor] Respiratory 16 18 17 Rate Respiratory Rate [Anterior Bilateral Throughout] Blood Pressure 114/68 114/68 114/68 O2 Sat by Pulse 100 98 100 Oximetry 05/09/17 05/09/17 05/09/17 04:45 05:00 05:15 Temperature Pulse Rate 83 80 90 Pulse Rate [ Anterior Bilateral Throughout] Pulse Rate [ From Monitor] Respiratory 16 17 20 Rate Respiratory Rate [Anterior Bilateral Throughout] Blood Pressure 114/68 119/60 119/60 O2 Sat by Pulse 100 100 100 Oximetry 05/09/17 05/09/17 05/09/17 05:31 05:45 06:00 Temperature Pulse Rate 111 H 83 94 H Pulse Rate [ Anterior Bilateral Throughout] Pulse Rate [ From Monitor] Respiratory 18 18 19 Rate Respiratory Rate [Anterior Bilateral Throughout] Blood Pressure 119/60 119/60 118/69 O2 Sat by Pulse 100 100 100 Oximetry 05/09/17 05/09/17 05/09/17 06:15 06:31 06:45 Temperature Pulse Rate 88 88 88 Pulse Rate [ Anterior Bilateral Throughout] Pulse Rate [ From Monitor] Respiratory 22 19 19 Rate Respiratory Rate [Anterior Bilateral Throughout] Blood Pressure 119/60 119/60 118/69 O2 Sat by Pulse 99 100 100 Oximetry 05/09/17 05/09/17 05/09/17 07:00 07:15 07:31 Temperature Pulse Rate 94 H 79 73 Pulse Rate [ Anterior Bilateral Throughout] Pulse Rate [ From Monitor] Respiratory 23 19 18 Rate Respiratory Rate [Anterior Bilateral Throughout] Blood Pressure 117/66 117/66 117/66 O2 Sat by Pulse 100 100 100 Oximetry 05/09/17 05/09/17 05/09/17 07:45 08:00 08:05 Temperature 97.3 F L Pulse Rate 101 H 102 H Pulse Rate [ Anterior Bilateral Throughout] Pulse Rate [ 91 H From Monitor] Respiratory 18 17 16 Rate Respiratory Rate [Anterior Bilateral Throughout] Blood Pressure 117/66 118/56 O2 Sat by Pulse 100 100 100 Oximetry 05/09/17 05/09/17 05/09/17 08:15 08:31 08:45 Temperature Pulse Rate 94 H 94 H 95 H Pulse Rate [ Anterior Bilateral Throughout] Pulse Rate [ From Monitor] Respiratory 18 20 19 Rate Respiratory Rate [Anterior Bilateral Throughout] Blood Pressure 118/56 118/56 118/56 O2 Sat by Pulse 100 100 100 Oximetry 05/09/17 05/09/17 05/09/17 08:46 09:00 09:15 Temperature Pulse Rate 93 H 95 H Pulse Rate [ 120 H Anterior Bilateral Throughout] Pulse Rate [ From Monitor] Respiratory 21 20 Rate Respiratory 18 Rate [Anterior Bilateral Throughout] Blood Pressure 116/60 116/60 O2 Sat by Pulse 99 100 100 Oximetry 05/09/17 05/09/17 05/09/17 09:26 09:31 09:45 Temperature Pulse Rate 113 H 92 H Pulse Rate [ 100 H Anterior Bilateral Throughout] Pulse Rate [ From Monitor] Respiratory 22 22 Rate Respiratory 18 Rate [Anterior Bilateral Throughout] Blood Pressure 116/60 116/60 O2 Sat by Pulse 99 99 Oximetry 05/09/17 05/09/17 05/09/17 10:01 10:15 10:29 Temperature Pulse Rate 104 H 107 H Pulse Rate [ Anterior Bilateral Throughout] Pulse Rate [ From Monitor] Respiratory 16 17 Rate Respiratory Rate [Anterior Bilateral Throughout] Blood Pressure 126/78 126/78 O2 Sat by Pulse 98 100 100 Oximetry 05/09/17 05/09/17 05/09/17 10:30 10:31 10:45 Temperature Pulse Rate 100 H 106 H 99 H Pulse Rate [ Anterior Bilateral Throughout] Pulse Rate [ From Monitor] Respiratory 20 21 Rate Respiratory Rate [Anterior Bilateral Throughout] Blood Pressure 126/78 126/78 O2 Sat by Pulse 99 99 Oximetry 05/09/17 05/09/17 05/09/17 11:01 11:15 11:49 Temperature 97.7 F Pulse Rate 121 H 99 H Pulse Rate [ Anterior Bilateral Throughout] Pulse Rate [ From Monitor] Respiratory 20 18 Rate Respiratory Rate [Anterior Bilateral Throughout] Blood Pressure 107/60 107/60 O2 Sat by Pulse 98 98 Oximetry Constitutional: alert, appears uncomfortable ENT: oropharynx moist Neck: supple, no lymphadenopathy, no JVD, other (right IJ line) Ascultation: Bilateral: clear, diminished breath sounds Percussion: Bilateral: not dull Cardiovascular: regular rate and rhythm Gastrointestinal: normoactive bowel sounds, tender (mild no rebound, ) Integumentary: normal Extremities: no cyanosis, no edema Neurologic: normal mental status, non-focal exam, pupils equal and round, CN II- XII normal, motor strength normal and Psychiatric: mood appropriate, affect normal CBC and BMP: 05/09/17 04:05 05/09/17 08:03 ABG, PT/INR, D-dimer: ABG POC ABG pH TNR 05/07/17 11:57 POC ABG pCO2 TNR 05/07/17 11:57 POC ABG pO2 TNR 05/07/17 11:57 POC ABG HCO3 TNR 05/07/17 11:57 POC ABG Total CO2 TNR 05/07/17 11:57 POC ABG O2 Sat TNR 05/07/17 11:57 PT/INR, D-dimer D-Dimer 8441.57 ng/mlDDU (0-234) H 05/04/17 Unknown Abnormal lab findings: Abnormal Labs 05/04/17 05/04/17 05/04/17 02:20 18:39 18:39 WBC 24.3 H RBC Hgb Hct RDW 16.4 H Plt Count 658 H Seg Neuts % (Manual) 94.5 H Lymphocytes % (Manual) 2.5 L Seg Neutrophils # Man 23.0 H Lymphocytes # (Manual) 0.6 L Monocytes # (Manual) D-Dimer POC ABG pH POC ABG pCO2 POC ABG pO2 Sodium Potassium 3.2 L Chloride 92.6 L Carbon Dioxide 14 L BUN 66 H Creatinine 6.5 H Glucose POC Glucose Lactic Acid Calcium 7.5 L Ionized Calcium Phosphorus Magnesium ALT 5 L Alkaline Phosphatase 32 L Total Creatine Kinase CK-MB (CK-2) Troponin T C-Reactive Protein Total Protein 5.4 L Albumin 3.0 L Urine WBC (Auto) 100.0 H Urine Creatinine Salicylates Miscellaneous Test 05/04/17 05/04/17 05/04/17 18:39 18:55 Unknown WBC RBC Hgb Hct RDW Plt Count Seg Neuts % (Manual) Lymphocytes % (Manual) Seg Neutrophils # Man Lymphocytes # (Manual) Monocytes # (Manual) D-Dimer POC ABG pH POC ABG pCO2 POC ABG pO2 Sodium Potassium Chloride Carbon Dioxide BUN Creatinine Glucose POC Glucose Lactic Acid 0.40 L Calcium Ionized Calcium Phosphorus Magnesium ALT Alkaline Phosphatase Total Creatine Kinase 155 H CK-MB (CK-2) 4.5 H Troponin T 0.033 H C-Reactive Protein Total Protein Albumin Urine WBC (Auto) Urine Creatinine Salicylates 0.3 L Miscellaneous Test 05/04/17 05/04/17 05/04/17 Unknown Unknown Unknown WBC RBC Hgb Hct RDW Plt Count Seg Neuts % (Manual) Lymphocytes % (Manual) Seg Neutrophils # Man Lymphocytes # (Manual) Monocytes # (Manual) D-Dimer 8441.57 H POC ABG pH POC ABG pCO2 POC ABG pO2 Sodium Potassium Chloride Carbon Dioxide BUN Creatinine Glucose POC Glucose Lactic Acid 0.40 L Calcium Ionized Calcium Phosphorus Magnesium ALT Alkaline Phosphatase Total Creatine Kinase 246 H CK-MB (CK-2) 6.2 H Troponin T C-Reactive Protein Total Protein Albumin Urine WBC (Auto) Urine Creatinine Salicylates Miscellaneous Test 05/05/17 05/05/17 05/05/17 05:20 05:20 05:20 WBC 33.9 H RBC 3.39 L Hgb 9.3 L Hct RDW 16.7 H Plt Count 712 H Seg Neuts % (Manual) 91.0 H Lymphocytes % (Manual) 1.0 L Seg Neutrophils # Man 30.8 H Lymphocytes # (Manual) 0.3 L Monocytes # (Manual) 1.5 H D-Dimer POC ABG pH POC ABG pCO2 POC ABG pO2 Sodium Potassium Chloride Carbon Dioxide 9 L* BUN 53 H Creatinine 5.4 H Glucose POC Glucose Lactic Acid Calcium 6.1 L D Ionized Calcium Phosphorus Magnesium ALT Alkaline Phosphatase Total Creatine Kinase 346 H CK-MB (CK-2) 8.2 H Troponin T C-Reactive Protein Total Protein Albumin Urine WBC (Auto) Urine Creatinine Salicylates Miscellaneous Test 05/05/17 05/05/17 05/05/17 10:43 17:45 17:45 WBC RBC Hgb 8.8 L Hct RDW Plt Count Seg Neuts % (Manual) Lymphocytes % (Manual) Seg Neutrophils # Man Lymphocytes # (Manual) Monocytes # (Manual) D-Dimer POC ABG pH 6.872 L POC ABG pCO2 POC ABG pO2 120 H Sodium Potassium Chloride Carbon Dioxide BUN Creatinine Glucose POC Glucose Lactic Acid Calcium Ionized Calcium 3.5 L Phosphorus Magnesium ALT Alkaline Phosphatase Total Creatine Kinase CK-MB (CK-2) Troponin T C-Reactive Protein Total Protein Albumin Urine WBC (Auto) Urine Creatinine Salicylates Miscellaneous Test 05/05/17 05/05/17 05/05/17 17:45 20:58 Unknown WBC RBC Hgb 9.0 L Hct 29.8 L RDW Plt Count Seg Neuts % (Manual) Lymphocytes % (Manual) Seg Neutrophils # Man Lymphocytes # (Manual) Monocytes # (Manual) D-Dimer POC ABG pH POC ABG pCO2 POC ABG pO2 Sodium Potassium Chloride Carbon Dioxide BUN Creatinine Glucose POC Glucose Lactic Acid Calcium Ionized Calcium Phosphorus 6.20 H Magnesium 1.20 L ALT Alkaline Phosphatase Total Creatine Kinase CK-MB (CK-2) Troponin T C-Reactive Protein Total Protein Albumin Urine WBC (Auto) Urine Creatinine 28.0 H Salicylates Miscellaneous Test 05/06/17 05/06/17 05/06/17 05:09 05:23 07:55 WBC RBC Hgb Hct RDW Plt Count Seg Neuts % (Manual) Lymphocytes % (Manual) Seg Neutrophils # Man Lymphocytes # (Manual) Monocytes # (Manual) D-Dimer POC ABG pH 7.029 L 7.060 L POC ABG pCO2 54.8 H 48.6 H POC ABG pO2 74 L 43 L Sodium Potassium 3.5 L Chloride Carbon Dioxide 18 L D BUN 44 H Creatinine 3.5 H Glucose 252 H POC Glucose Lactic Acid Calcium 5.8 L* Ionized Calcium Phosphorus Magnesium ALT Alkaline Phosphatase Total Creatine Kinase CK-MB (CK-2) Troponin T C-Reactive Protein Total Protein Albumin Urine WBC (Auto) Urine Creatinine Salicylates Miscellaneous Test 05/06/17 05/06/17 05/06/17 07:55 15:28 17:30 WBC RBC Hgb Hct RDW Plt Count Seg Neuts % (Manual) Lymphocytes % (Manual) Seg Neutrophils # Man Lymphocytes # (Manual) Monocytes # (Manual) D-Dimer POC ABG pH 7.066 L POC ABG pCO2 80.9 H POC ABG pO2 65 L Sodium Potassium Chloride Carbon Dioxide BUN Creatinine Glucose POC Glucose Lactic Acid Calcium Ionized Calcium Phosphorus Magnesium ALT Alkaline Phosphatase Total Creatine Kinase CK-MB (CK-2) Troponin T C-Reactive Protein 14.50 H Total Protein Albumin Urine WBC (Auto) Urine Creatinine Salicylates Miscellaneous Test Flexitest 1 H 05/06/17 05/06/17 05/07/17 17:30 Unknown 10:18 WBC 39.2 H 32.9 H RBC 3.27 L Hgb 9.3 L Hct 30.2 L RDW 16.4 H 17.0 H Plt Count 645 H 467 H Seg Neuts % (Manual) Lymphocytes % (Manual) 11.0 L Seg Neutrophils # Man 21.2 H Lymphocytes # (Manual) Monocytes # (Manual) 2.0 H D-Dimer POC ABG pH POC ABG pCO2 POC ABG pO2 Sodium Potassium 3.4 L Chloride Carbon Dioxide BUN 41 H Creatinine 3.2 H Glucose 265 H POC Glucose Lactic Acid Calcium 6.7 L D Ionized Calcium Phosphorus Magnesium ALT Alkaline Phosphatase Total Creatine Kinase CK-MB (CK-2) Troponin T C-Reactive Protein Total Protein Albumin Urine WBC (Auto) Urine Creatinine Salicylates Miscellaneous Test 05/07/17 05/07/17 05/08/17 11:32 12:36 05:45 WBC 31.1 H RBC 3.41 L Hgb 9.8 L Hct RDW 16.9 H Plt Count Seg Neuts % (Manual) 96.0 H Lymphocytes % (Manual) 1.0 L Seg Neutrophils # Man 29.9 H Lymphocytes # (Manual) 0.3 L Monocytes # (Manual) D-Dimer POC ABG pH 7.290 L POC ABG pCO2 48.3 H POC ABG pO2 51 L Sodium 146 H Potassium 3.1 L Chloride 109.2 H Carbon Dioxide 20 L BUN 38 H Creatinine 2.7 H Glucose 213 H POC Glucose Lactic Acid Calcium 6.6 L Ionized Calcium Phosphorus Magnesium ALT Alkaline Phosphatase Total Creatine Kinase CK-MB (CK-2) Troponin T C-Reactive Protein Total Protein Albumin Urine WBC (Auto) Urine Creatinine Salicylates Miscellaneous Test 05/08/17 05/08/17 05/09/17 05:45 18:55 04:05 WBC 26.1 H RBC Hgb Hct RDW 17.6 H Plt Count Seg Neuts % (Manual) Lymphocytes % (Manual) 5.0 L Seg Neutrophils # Man 16.7 H Lymphocytes # (Manual) Monocytes # (Manual) D-Dimer POC ABG pH POC ABG pCO2 POC ABG pO2 Sodium 150 H Potassium Chloride 115.4 H 112.2 H Carbon Dioxide 20 L 18 L BUN 39 H 45 H Creatinine 2.4 H 2.3 H Glucose 160 H 219 H POC Glucose Lactic Acid Calcium 6.6 L 7.2 L Ionized Calcium Phosphorus Magnesium 1.40 L ALT 6 L Alkaline Phosphatase Total Creatine Kinase CK-MB (CK-2) Troponin T C-Reactive Protein Total Protein 4.1 L D Albumin 2.0 L Urine WBC (Auto) Urine Creatinine Salicylates Miscellaneous Test 05/09/17 05/09/17 05/09/17 04:05 05:15 05:45 WBC RBC Hgb Hct RDW Plt Count Seg Neuts % (Manual) Lymphocytes % (Manual) Seg Neutrophils # Man Lymphocytes # (Manual) Monocytes # (Manual) D-Dimer POC ABG pH POC ABG pCO2 POC ABG pO2 Sodium 130 L D Potassium 3.4 L D Chloride 94.6 L Carbon Dioxide 19 L BUN 39 H Creatinine 2.1 H Glucose 549 H* 189 H POC Glucose 181 H Lactic Acid Calcium 6.6 L Ionized Calcium Phosphorus Magnesium ALT 6 L Alkaline Phosphatase 31 L Total Creatine Kinase CK-MB (CK-2) Troponin T C-Reactive Protein Total Protein 3.5 L Albumin 2.0 L Urine WBC (Auto) Urine Creatinine Salicylates Miscellaneous Test 05/09/17 08:03 WBC RBC Hgb Hct RDW Plt Count Seg Neuts % (Manual) Lymphocytes % (Manual) Seg Neutrophils # Man Lymphocytes # (Manual) Monocytes # (Manual) D-Dimer POC ABG pH POC ABG pCO2 POC ABG pO2 Sodium Potassium Chloride 107.8 H Carbon Dioxide 21 L BUN 43 H Creatinine 2.4 H Glucose 195 H POC Glucose Lactic Acid Calcium 7.1 L Ionized Calcium Phosphorus Magnesium ALT Alkaline Phosphatase Total Creatine Kinase CK-MB (CK-2) Troponin T C-Reactive Protein Total Protein 3.9 L Albumin 2.3 L Urine WBC (Auto) Urine Creatinine Salicylates Miscellaneous Test
--- NOTE | 2017-05-09 12:48 | Progress Note ---
Assessment and Plan Impression: * Acute kidney injury secondary to prerenal azotemia due to volume depletion secondary to GI loss - improved * Colitis * Sepsis * Metabolic acidosis,resolved - likely related to diarrhea; LA unremarkable * Hypokalemia * Hypernatremia * Hypocalcemia - corrected Ca 8.2 * Hypoalbuminemia Plan: * Renal function stable * Na improved with d5w * Abx per ID * Replete lytes daily * Avoid potential nephrotoxins * maintain MAP>65 * Dose medications for renal function Subjective Date of service: 05/09/17 Principal diagnosis: Septic shock,C. diff colitis Interval history: resting well in bed today Objective - Exam Narrative Exam: General appearance: well-developed, well-nourished EENT: ATNC Neck: no JVD Respiratory: Present: Decreased Breath Sounds Cardiology: regular, S1S2 Gastrointestinal: hypoactive bowel sounds, no tenderness, distended Integumentary: no rash Neurologic: reflexes 2+ and symmetric Musculoskeletal: other (trace edema) Psychiatric: cooperative - Vital Signs Vital signs: Vital Signs - 12hr 05/09/17 05/09/17 05/09/17 01:00 01:15 01:31 Temperature Pulse Rate 75 82 80 Pulse Rate [ Anterior Bilateral Throughout] Pulse Rate [ From Monitor] Respiratory 11 L 10 L 12 Rate Respiratory Rate [Anterior Bilateral Throughout] Blood Pressure 106/55 106/55 106/55 O2 Sat by Pulse 100 100 100 Oximetry 05/09/17 05/09/17 05/09/17 01:45 02:00 02:15 Temperature Pulse Rate 80 79 83 Pulse Rate [ Anterior Bilateral Throughout] Pulse Rate [ From Monitor] Respiratory 11 L 12 12 Rate Respiratory Rate [Anterior Bilateral Throughout] Blood Pressure 106/55 113/57 106/55 O2 Sat by Pulse 100 100 100 Oximetry 05/09/17 05/09/17 05/09/17 02:31 02:45 03:00 Temperature Pulse Rate 69 88 92 H Pulse Rate [ Anterior Bilateral Throughout] Pulse Rate [ From Monitor] Respiratory 13 15 15 Rate Respiratory Rate [Anterior Bilateral Throughout] Blood Pressure 106/55 106/55 114/61 O2 Sat by Pulse 100 100 100 Oximetry 05/09/17 05/09/17 05/09/17 03:15 03:31 03:37 Temperature 97.5 F L Pulse Rate 81 101 H Pulse Rate [ Anterior Bilateral Throughout] Pulse Rate [ From Monitor] Respiratory 15 17 Rate Respiratory Rate [Anterior Bilateral Throughout] Blood Pressure 114/61 114/61 O2 Sat by Pulse 100 99 Oximetry 05/09/17 05/09/17 05/09/17 03:45 04:00 04:15 Temperature Pulse Rate 91 H 89 118 H Pulse Rate [ Anterior Bilateral Throughout] Pulse Rate [ From Monitor] Respiratory 16 16 18 Rate Respiratory Rate [Anterior Bilateral Throughout] Blood Pressure 114/61 114/68 114/68 O2 Sat by Pulse 100 100 98 Oximetry 05/09/17 05/09/17 05/09/17 04:31 04:45 05:00 Temperature Pulse Rate 81 83 80 Pulse Rate [ Anterior Bilateral Throughout] Pulse Rate [ From Monitor] Respiratory 17 16 17 Rate Respiratory Rate [Anterior Bilateral Throughout] Blood Pressure 114/68 114/68 119/60 O2 Sat by Pulse 100 100 100 Oximetry 05/09/17 05/09/17 05/09/17 05:15 05:31 05:45 Temperature Pulse Rate 90 111 H 83 Pulse Rate [ Anterior Bilateral Throughout] Pulse Rate [ From Monitor] Respiratory 20 18 18 Rate Respiratory Rate [Anterior Bilateral Throughout] Blood Pressure 119/60 119/60 119/60 O2 Sat by Pulse 100 100 100 Oximetry 05/09/17 05/09/17 05/09/17 06:00 06:15 06:31 Temperature Pulse Rate 94 H 88 88 Pulse Rate [ Anterior Bilateral Throughout] Pulse Rate [ From Monitor] Respiratory 19 22 19 Rate Respiratory Rate [Anterior Bilateral Throughout] Blood Pressure 118/69 119/60 119/60 O2 Sat by Pulse 100 99 100 Oximetry 05/09/17 05/09/17 05/09/17 06:45 07:00 07:15 Temperature Pulse Rate 88 94 H 79 Pulse Rate [ Anterior Bilateral Throughout] Pulse Rate [ From Monitor] Respiratory 19 23 19 Rate Respiratory Rate [Anterior Bilateral Throughout] Blood Pressure 118/69 117/66 117/66 O2 Sat by Pulse 100 100 100 Oximetry 05/09/17 05/09/17 05/09/17 07:31 07:45 08:00 Temperature 97.3 F L Pulse Rate 73 101 H 102 H Pulse Rate [ Anterior Bilateral Throughout] Pulse Rate [ From Monitor] Respiratory 18 18 17 Rate Respiratory Rate [Anterior Bilateral Throughout] Blood Pressure 117/66 117/66 118/56 O2 Sat by Pulse 100 100 100 Oximetry 05/09/17 05/09/17 05/09/17 08:05 08:15 08:31 Temperature Pulse Rate 94 H 94 H Pulse Rate [ Anterior Bilateral Throughout] Pulse Rate [ 91 H From Monitor] Respiratory 16 18 20 Rate Respiratory Rate [Anterior Bilateral Throughout] Blood Pressure 118/56 118/56 O2 Sat by Pulse 100 100 100 Oximetry 05/09/17 05/09/17 05/09/17 08:45 08:46 09:00 Temperature Pulse Rate 95 H 93 H Pulse Rate [ Anterior Bilateral Throughout] Pulse Rate [ From Monitor] Respiratory 19 21 Rate Respiratory Rate [Anterior Bilateral Throughout] Blood Pressure 118/56 116/60 O2 Sat by Pulse 100 99 100 Oximetry 05/09/17 05/09/17 05/09/17 09:15 09:26 09:31 Temperature Pulse Rate 95 H 113 H Pulse Rate [ 120 H 100 H Anterior Bilateral Throughout] Pulse Rate [ From Monitor] Respiratory 20 22 Rate Respiratory 18 18 Rate [Anterior Bilateral Throughout] Blood Pressure 116/60 116/60 O2 Sat by Pulse 100 99 Oximetry 05/09/17 05/09/17 05/09/17 09:45 10:01 10:15 Temperature Pulse Rate 92 H 104 H 107 H Pulse Rate [ Anterior Bilateral Throughout] Pulse Rate [ From Monitor] Respiratory 22 16 17 Rate Respiratory Rate [Anterior Bilateral Throughout] Blood Pressure 116/60 126/78 126/78 O2 Sat by Pulse 99 98 100 Oximetry 05/09/17 05/09/17 05/09/17 10:29 10:30 10:31 Temperature Pulse Rate 100 H 106 H Pulse Rate [ Anterior Bilateral Throughout] Pulse Rate [ From Monitor] Respiratory 20 Rate Respiratory Rate [Anterior Bilateral Throughout] Blood Pressure 126/78 O2 Sat by Pulse 100 99 Oximetry 05/09/17 05/09/17 05/09/17 10:45 11:01 11:15 Temperature Pulse Rate 99 H 121 H 99 H Pulse Rate [ Anterior Bilateral Throughout] Pulse Rate [ From Monitor] Respiratory 21 20 18 Rate Respiratory Rate [Anterior Bilateral Throughout] Blood Pressure 126/78 107/60 107/60 O2 Sat by Pulse 99 98 98 Oximetry 05/09/17 11:49 Temperature 97.7 F Pulse Rate Pulse Rate [ Anterior Bilateral Throughout] Pulse Rate [ From Monitor] Respiratory Rate Respiratory Rate [Anterior Bilateral Throughout] Blood Pressure O2 Sat by Pulse Oximetry - Lab 05/09/17 04:05 05/09/17 08:03 Most recent lab results Calcium 7.1 mg/dL (8.4-10.2) L 05/09/17 08:03 Phosphorus 4.30 mg/dL (2.5-4.5) 05/09/17 04:05 Magnesium 2.10 mg/dL (1.7-2.3) 05/09/17 04:05 Urine Creatinine 28.0 mg/dL (0.1-20.0) H 05/05/17 Unknown Urine Sodium 129 mmol/L 05/05/17 Unknown
[2017-05-09] MEDS ORDERED: NACL 0.45% 1000 ML 1,000 ML IV SCH (13:00)
--- NOTE | 2017-05-09 14:57 | XRay Report ---
Single view chest: Compared to 05/04/17. History: Left PICC line placement. Findings: Borderline cardiomegaly. Trachea is midline. Left PICC line tip in mid superior vena cava. Bilateral pleural effusion. No consolidation. Impression: Tip of left PICC line in MID superior vena cava. Stable right central line. Bilateral pleural effusion. No pneumothorax.
[2017-05-09] MEDS ORDERED: LASIX IV ONE (15:54)
[2017-05-09] MEDS: DILAUDID IV PRN (16:15)
[2017-05-09] MEDS: BROVANA NEBU IH SCH (19:27)
[2017-05-09] MEDS: PULMICORT IH SCH (20:14)
[2017-05-10] MEDS: D5W 1,000 ML IV SCH (00:27)
[2017-05-10] MEDS: FLAGYL 500 MG/100 ML 500 MG/100 ML BAG IV SCH ×4 (00:28→23:06)
[2017-05-10] MEDS ORDERED: NOVOLOG SUB-Q ONE (00:30)
[2017-05-10] MEDS: VANCOMYCIN PO PO SCH ×4 (00:36→20:41)
[2017-05-10 06:25] LABS: Hematocrit 31.7 % (30.3-42.9); Hemoglobin 10.2 gm/dl (10.1-14.3); Mean Corpuscular HGB Conc 32 % (30-34); Mean Corpuscular Hemoglobin 29 pg (28-32); Mean Corpuscular Volume 90 fl (79-97); Platelet Count 335 K/mm3 (140-440); Red Blood Count 3.53 M/mm3 (3.65-5.03); Red Cell Distribution Width 17.3 % (13.2-15.2)
[2017-05-10 06:31] LABS: White Blood Count 20.9 K/mm3 (4.5-11.0)
[2017-05-10 06:56] LABS: Albumin 2.1 g/dL (3.9-5); Albumin/Globulin Ratio 1.2 %; Bilirubin,Total 0.2 mg/dL (0.1-1.2); Calcium 7.1 mg/dL (8.4-10.2); Magnesium 2.1 mg/dL (1.7-2.3); Phosphorous 3.8 mg/dL (2.5-4.5); Total Protein 3.8 g/dL (6.3-8.2)
[2017-05-10 06:57] LABS: Chloride 98.9 mmol/L (98-107); Potassium 3.2 mmol/L (3.6-5.0)
[2017-05-10] MEDS: DILAUDID IV PRN ×2 (06:57→23:36)
[2017-05-10 07:58] LABS: Blastocytes % (Manual) 0 %; Eosinophils % (Manual) 0 % (0.0-4.3)
[2017-05-10 07:59] LABS: Anisocytosis 1+; Basophils % (Manual) 0 % (0.0-1.8); Burr Cells Few; Hypochromasia 1+; Ovalocytes 1+; Poikilocytosis Few; Tear Drop Cells Few
[2017-05-10 08:00] LABS: Diff Status Complete
[2017-05-10] MEDS: NOVOLOG SUB-Q SCH ×3 (08:29→23:07)
--- NOTE | 2017-05-10 09:18 | Progress Note ---
Assessment and Plan Shock. Resolved, off pressors Pulmonary edema? Per nurses report, seen bi IMS last night. No data on record, not called for this. Reportedly with this last night,Lasix given. CXR with minimal effusions but no other changes.Chest CTA Hypernatremia. Resolved Severe sepsis with MSOF, secondary to GI source,colitis. Positive C. difficile. Improving WBC Antibiotics adjusted per ID recommendations Acute gastroenteritis/C. difficile. Abdominal CT showing colitis, mild ascites COPD, controlled .No wheezing,off steroids. Nebs decreased to TID by RT. I was not informed of this. Metabolic/respiratory acidosis,AG acidosis. Hypocalcemia with hypoalbuminemia. Corrected PHT on echo, severe. No new findings Anemia. Stool OB + A/C kidney injury. Nephrology following Hyperglicemia- on D5W per nephrology. Steroids DC'ed, infection improving Recommendations Decrease D5W rate to 50 cc/hr and asked RN to call nephrology, check if its OK to change fluids to 0.45 NSS and decrease rate to 40-50 cc/hr ( effusions on CXR).Discussed with RN. I reordered nebs and discussed with RT. 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 Thus , will not order any further w/o for now. Her V.Doppler was reportedly negative. She will need to update her echo at some point , when septic process is fully resolved. Probably OK to transfer out at this point,if no other problems. Discussed orders with RN's and RT. Updated patient plan of care in detail. All questions answered. No family members available for case discussion Critical care time was 31 minutes of [id number] evaluation and coordination of care Subjective Date of service: 05/10/17 Principal diagnosis: Septic shock,C. diff colitis Interval history: No SOB. No chest pain. abdominal discomfort better Objective Vital Signs - 12hr 05/09/17 05/09/17 05/09/17 21:30 22:00 22:01 Temperature Pulse Rate 88 86 85 Pulse Rate [ From Monitor] Respiratory 18 16 Rate Blood Pressure 106/58 85/52 O2 Sat by Pulse 100 100 Oximetry 05/09/17 05/09/17 05/09/17 22:30 22:32 23:00 Temperature Pulse Rate 116 H 119 H 108 H Pulse Rate [ 115 H From Monitor] Respiratory 20 20 20 Rate Blood Pressure 109/77 87/54 99/67 O2 Sat by Pulse 99 99 99 Oximetry 05/09/17 05/09/17 05/10/17 23:30 23:48 00:00 Temperature Pulse Rate 115 H 104 H 125 H Pulse Rate [ From Monitor] Respiratory 19 19 17 Rate Blood Pressure 108/73 124/64 O2 Sat by Pulse 100 100 99 Oximetry 05/10/17 05/10/17 05/10/17 00:15 00:30 01:00 Temperature 98.8 F Pulse Rate 94 H 103 H Pulse Rate [ From Monitor] Respiratory 21 21 Rate Blood Pressure 117/63 123/67 O2 Sat by Pulse 100 99 Oximetry 05/10/17 05/10/17 05/10/17 01:30 02:00 02:30 Temperature Pulse Rate 120 H 118 H 117 H Pulse Rate [ From Monitor] Respiratory 21 20 25 H Rate Blood Pressure 117/72 118/71 120/72 O2 Sat by Pulse 99 99 99 Oximetry 05/10/17 05/10/17 05/10/17 03:00 03:30 04:00 Temperature Pulse Rate 102 H 105 H 79 Pulse Rate [ From Monitor] Respiratory 14 20 20 Rate Blood Pressure 114/88 122/87 111/63 O2 Sat by Pulse 99 100 100 Oximetry 05/10/17 05/10/17 05/10/17 04:30 05:00 05:30 Temperature Pulse Rate 130 H 128 H 129 H Pulse Rate [ From Monitor] Respiratory 16 16 14 Rate Blood Pressure 119/66 111/63 115/70 O2 Sat by Pulse 99 98 99 Oximetry 05/10/17 05/10/17 05/10/17 06:00 06:30 06:57 Temperature Pulse Rate 102 H 117 H Pulse Rate [ From Monitor] Respiratory 19 19 18 Rate Blood Pressure 120/69 108/72 O2 Sat by Pulse 100 100 Oximetry 17 05/10/05/10/17 07:00 07:30 07:50 Temperature 98.2 F Pulse Rate 126 H 100 H Pulse Rate [ From Monitor] Respiratory 15 14 Rate Blood Pressure 119/62 107/59 O2 Sat by Pulse 100 100 Oximetry 05/10/17 08:00 Temperature Pulse Rate 92 H Pulse Rate [ From Monitor] Respiratory 14 Rate Blood Pressure 96/58 O2 Sat by Pulse 100 Oximetry Constitutional: alert, appears uncomfortable ENT: oropharynx moist Neck: supple, no lymphadenopathy, no JVD, other (right IJ line) Ascultation: Bilateral: clear, diminished breath sounds Percussion: Bilateral: not dull Cardiovascular: regular rate and rhythm Gastrointestinal: normoactive bowel sounds, tender (mild no rebound, ) Integumentary: normal Extremities: no cyanosis, no edema Neurologic: normal mental status, non-focal exam, pupils equal and round, CN II- XII normal, motor strength normal and Psychiatric: mood appropriate, affect normal CBC and BMP: 05/10/17 05:00 05/10/17 05:00 ABG, PT/INR, D-dimer: ABG POC ABG pH TNR 05/07/17 11:57 POC ABG pCO2 TNR 05/07/17 11:57 POC ABG pO2 TNR 05/07/17 11:57 POC ABG HCO3 TNR 05/07/17 11:57 POC ABG Total CO2 TNR 05/07/17 11:57 POC ABG O2 Sat TNR 05/07/17 11:57 PT/INR, D-dimer D-Dimer 8441.57 ng/mlDDU (0-234) H 05/04/17 Unknown Abnormal lab findings: Abnormal Labs 05/04/17 05/04/17 05/04/17 02:20 18:39 18:39 WBC 24.3 H RBC Hgb Hct RDW 16.4 H Plt Count 658 H Seg Neuts % (Manual) 94.5 H Lymphocytes % (Manual) 2.5 L Seg Neutrophils # Man 23.0 H Lymphocytes # (Manual) 0.6 L Monocytes # (Manual) D-Dimer POC ABG pH POC ABG pCO2 POC ABG pO2 Sodium Potassium 3.2 L Chloride 92.6 L Carbon Dioxide 14 L BUN 66 H Creatinine 6.5 H Glucose POC Glucose Lactic Acid Calcium 7.5 L Ionized Calcium Phosphorus Magnesium ALT 5 L Alkaline Phosphatase 32 L Total Creatine Kinase CK-MB (CK-2) Troponin T C-Reactive Protein Total Protein 5.4 L Albumin 3.0 L Urine WBC (Auto) 100.0 H Urine Creatinine Salicylates Miscellaneous Test 05/04/17 05/04/17 05/04/17 18:39 18:55 Unknown WBC RBC Hgb Hct RDW Plt Count Seg Neuts % (Manual) Lymphocytes % (Manual) Seg Neutrophils # Man Lymphocytes # (Manual) Monocytes # (Manual) D-Dimer POC ABG pH POC ABG pCO2 POC ABG pO2 Sodium Potassium Chloride Carbon Dioxide BUN Creatinine Glucose POC Glucose Lactic Acid 0.40 L Calcium Ionized Calcium Phosphorus Magnesium ALT Alkaline Phosphatase Total Creatine Kinase 155 H CK-MB (CK-2) 4.5 H Troponin T 0.033 H C-Reactive Protein Total Protein Albumin Urine WBC (Auto) Urine Creatinine Salicylates 0.3 L Miscellaneous Test 05/04/17 05/04/17 05/04/17 Unknown Unknown Unknown WBC RBC Hgb Hct RDW Plt Count Seg Neuts % (Manual) Lymphocytes % (Manual) Seg Neutrophils # Man Lymphocytes # (Manual) Monocytes # (Manual) D-Dimer 8441.57 H POC ABG pH POC ABG pCO2 POC ABG pO2 Sodium Potassium Chloride Carbon Dioxide BUN Creatinine Glucose POC Glucose Lactic Acid 0.40 L Calcium Ionized Calcium Phosphorus Magnesium ALT Alkaline Phosphatase Total Creatine Kinase 246 H CK-MB (CK-2) 6.2 H Troponin T C-Reactive Protein Total Protein Albumin Urine WBC (Auto) Urine Creatinine Salicylates Miscellaneous Test 05/05/17 05/05/17 05/05/17 05:20 05:20 05:20 WBC 33.9 H RBC 3.39 L Hgb 9.3 L Hct RDW 16.7 H Plt Count 712 H Seg Neuts % (Manual) 91.0 H Lymphocytes % (Manual) 1.0 L Seg Neutrophils # Man 30.8 H Lymphocytes # (Manual) 0.3 L Monocytes # (Manual) 1.5 H D-Dimer POC ABG pH POC ABG pCO2 POC ABG pO2 Sodium Potassium Chloride Carbon Dioxide 9 L* BUN 53 H Creatinine 5.4 H Glucose POC Glucose Lactic Acid Calcium 6.1 L D Ionized Calcium Phosphorus Magnesium ALT Alkaline Phosphatase Total Creatine Kinase 346 H CK-MB (CK-2) 8.2 H Troponin T C-Reactive Protein Total Protein Albumin Urine WBC (Auto) Urine Creatinine Salicylates Miscellaneous Test 05/05/17 05/05/17 05/05/17 10:43 17:45 17:45 WBC RBC Hgb 8.8 L Hct RDW Plt Count Seg Neuts % (Manual) Lymphocytes % (Manual) Seg Neutrophils # Man Lymphocytes # (Manual) Monocytes # (Manual) D-Dimer POC ABG pH 6.872 L POC ABG pCO2 POC ABG pO2 120 H Sodium Potassium Chloride Carbon Dioxide BUN Creatinine Glucose POC Glucose Lactic Acid Calcium Ionized Calcium 3.5 L Phosphorus Magnesium ALT Alkaline Phosphatase Total Creatine Kinase CK-MB (CK-2) Troponin T C-Reactive Protein Total Protein Albumin Urine WBC (Auto) Urine Creatinine Salicylates Miscellaneous Test 05/05/17 05/05/17 05/05/17 17:45 20:58 Unknown WBC RBC Hgb 9.0 L Hct 29.8 L RDW Plt Count Seg Neuts % (Manual) Lymphocytes % (Manual) Seg Neutrophils # Man Lymphocytes # (Manual) Monocytes # (Manual) D-Dimer POC ABG pH POC ABG pCO2 POC ABG pO2 Sodium Potassium Chloride Carbon Dioxide BUN Creatinine Glucose POC Glucose Lactic Acid Calcium Ionized Calcium Phosphorus 6.20 H Magnesium 1.20 L ALT Alkaline Phosphatase Total Creatine Kinase CK-MB (CK-2) Troponin T C-Reactive Protein Total Protein Albumin Urine WBC (Auto) Urine Creatinine 28.0 H Salicylates Miscellaneous Test 05/06/17 05/06/17 05/06/17 05:09 05:23 07:55 WBC RBC Hgb Hct RDW Plt Count Seg Neuts % (Manual) Lymphocytes % (Manual) Seg Neutrophils # Man Lymphocytes # (Manual) Monocytes # (Manual) D-Dimer POC ABG pH 7.029 L 7.060 L POC ABG pCO2 54.8 H 48.6 H POC ABG pO2 74 L 43 L Sodium Potassium 3.5 L Chloride Carbon Dioxide 18 L D BUN 44 H Creatinine 3.5 H Glucose 252 H POC Glucose Lactic Acid Calcium 5.8 L* Ionized Calcium Phosphorus Magnesium ALT Alkaline Phosphatase Total Creatine Kinase CK-MB (CK-2) Troponin T C-Reactive Protein Total Protein Albumin Urine WBC (Auto) Urine Creatinine Salicylates Miscellaneous Test 05/06/17 05/06/17 05/06/17 07:55 15:28 17:30 WBC RBC Hgb Hct RDW Plt Count Seg Neuts % (Manual) Lymphocytes % (Manual) Seg Neutrophils # Man Lymphocytes # (Manual) Monocytes # (Manual) D-Dimer POC ABG pH 7.066 L POC ABG pCO2 80.9 H POC ABG pO2 65 L Sodium Potassium Chloride Carbon Dioxide BUN Creatinine Glucose POC Glucose Lactic Acid Calcium Ionized Calcium Phosphorus Magnesium ALT Alkaline Phosphatase Total Creatine Kinase CK-MB (CK-2) Troponin T C-Reactive Protein 14.50 H Total Protein Albumin Urine WBC (Auto) Urine Creatinine Salicylates Miscellaneous Test Flexitest 1 H 05/06/17 05/06/17 05/07/17 17:30 Unknown 10:18 WBC 39.2 H 32.9 H RBC 3.27 L Hgb 9.3 L Hct 30.2 L RDW 16.4 H 17.0 H Plt Count 645 H 467 H Seg Neuts % (Manual) Lymphocytes % (Manual) 11.0 L Seg Neutrophils # Man 21.2 H Lymphocytes # (Manual) Monocytes # (Manual) 2.0 H D-Dimer POC ABG pH POC ABG pCO2 POC ABG pO2 Sodium Potassium 3.4 L Chloride Carbon Dioxide BUN 41 H Creatinine 3.2 H Glucose 265 H POC Glucose Lactic Acid Calcium 6.7 L D Ionized Calcium Phosphorus Magnesium ALT Alkaline Phosphatase Total Creatine Kinase CK-MB (CK-2) Troponin T C-Reactive Protein Total Protein Albumin Urine WBC (Auto) Urine Creatinine Salicylates Miscellaneous Test 05/07/17 05/07/17 05/08/17 11:32 12:36 05:45 WBC 31.1 H RBC 3.41 L Hgb 9.8 L Hct RDW 16.9 H Plt Count Seg Neuts % (Manual) 96.0 H Lymphocytes % (Manual) 1.0 L Seg Neutrophils # Man 29.9 H Lymphocytes # (Manual) 0.3 L Monocytes # (Manual) D-Dimer POC ABG pH 7.290 L POC ABG pCO2 48.3 H POC ABG pO2 51 L Sodium 146 H Potassium 3.1 L Chloride 109.2 H Carbon Dioxide 20 L BUN 38 H Creatinine 2.7 H Glucose 213 H POC Glucose Lactic Acid Calcium 6.6 L Ionized Calcium Phosphorus Magnesium ALT Alkaline Phosphatase Total Creatine Kinase CK-MB (CK-2) Troponin T C-Reactive Protein Total Protein Albumin Urine WBC (Auto) Urine Creatinine Salicylates Miscellaneous Test 05/08/17 05/08/17 05/09/17 05:45 18:55 04:05 WBC 26.1 H RBC Hgb Hct RDW 17.6 H Plt Count Seg Neuts % (Manual) Lymphocytes % (Manual) 5.0 L Seg Neutrophils # Man 16.7 H Lymphocytes # (Manual) Monocytes # (Manual) D-Dimer POC ABG pH POC ABG pCO2 POC ABG pO2 Sodium 150 H Potassium Chloride 115.4 H 112.2 H Carbon Dioxide 20 L 18 L BUN 39 H 45 H Creatinine 2.4 H 2.3 H Glucose 160 H 219 H POC Glucose Lactic Acid Calcium 6.6 L 7.2 L Ionized Calcium Phosphorus Magnesium 1.40 L ALT 6 L Alkaline Phosphatase Total Creatine Kinase CK-MB (CK-2) Troponin T C-Reactive Protein Total Protein 4.1 L D Albumin 2.0 L Urine WBC (Auto) Urine Creatinine Salicylates Miscellaneous Test 05/09/17 05/09/17 05/09/17 04:05 05:15 05:45 WBC RBC Hgb Hct RDW Plt Count Seg Neuts % (Manual) Lymphocytes % (Manual) Seg Neutrophils # Man Lymphocytes # (Manual) Monocytes # (Manual) D-Dimer POC ABG pH POC ABG pCO2 POC ABG pO2 Sodium 130 L D Potassium 3.4 L D Chloride 94.6 L Carbon Dioxide 19 L BUN 39 H Creatinine 2.1 H Glucose 549 H* 189 H POC Glucose 181 H Lactic Acid Calcium 6.6 L Ionized Calcium Phosphorus Magnesium ALT 6 L Alkaline Phosphatase 31 L Total Creatine Kinase CK-MB (CK-2) Troponin T C-Reactive Protein Total Protein 3.5 L Albumin 2.0 L Urine WBC (Auto) Urine Creatinine Salicylates Miscellaneous Test 05/09/17 05/09/17 05/09/17 08:03 11:08 16:15 WBC RBC Hgb Hct RDW Plt Count Seg Neuts % (Manual) Lymphocytes % (Manual) Seg Neutrophils # Man Lymphocytes # (Manual) Monocytes # (Manual) D-Dimer POC ABG pH POC ABG pCO2 POC ABG pO2 Sodium Potassium Chloride 107.8 H Carbon Dioxide 21 L BUN 43 H Creatinine 2.4 H Glucose 195 H POC Glucose 299 H 111 H Lactic Acid Calcium 7.1 L Ionized Calcium Phosphorus Magnesium ALT Alkaline Phosphatase Total Creatine Kinase CK-MB (CK-2) Troponin T C-Reactive Protein Total Protein 3.9 L Albumin 2.3 L Urine WBC (Auto) Urine Creatinine Salicylates Miscellaneous Test 05/09/17 05/10/17 05/10/17 23:05 05:00 05:00 WBC 20.9 H RBC 3.53 L Hgb Hct RDW 17.3 H Plt Count Seg Neuts % (Manual) 72.0 H Lymphocytes % (Manual) 8.0 L Seg Neutrophils # Man 15.0 H Lymphocytes # (Manual) Monocytes # (Manual) D-Dimer POC ABG pH POC ABG pCO2 POC ABG pO2 Sodium 135 L D Potassium 3.2 L Chloride Carbon Dioxide 21 L BUN 45 H Creatinine 2.2 H Glucose 308 H POC Glucose 336 H Lactic Acid Calcium 7.1 L Ionized Calcium Phosphorus Magnesium ALT 5 L Alkaline Phosphatase 30 L Total Creatine Kinase CK-MB (CK-2) Troponin T C-Reactive Protein Total Protein 3.8 L Albumin 2.1 L Urine WBC (Auto) Urine Creatinine Salicylates Miscellaneous Test 05/10/17 07:28 WBC RBC Hgb Hct RDW Plt Count Seg Neuts % (Manual) Lymphocytes % (Manual) Seg Neutrophils # Man Lymphocytes # (Manual) Monocytes # (Manual) D-Dimer POC ABG pH POC ABG pCO2 POC ABG pO2 Sodium Potassium Chloride Carbon Dioxide BUN Creatinine Glucose POC Glucose 154 H Lactic Acid Calcium Ionized Calcium Phosphorus Magnesium ALT Alkaline Phosphatase Total Creatine Kinase CK-MB (CK-2) Troponin T C-Reactive Protein Total Protein Albumin Urine WBC (Auto) Urine Creatinine Salicylates Miscellaneous Test
[2017-05-10] MEDS: PULMICORT IH SCH ×2 (09:27→20:29)
[2017-05-10] MEDS: BROVANA NEBU IH SCH ×2 (09:27→20:29)
[2017-05-10] MEDS: DUONEB *Not for PRN Use IH SCH ×3 (09:27→20:29)
[2017-05-10] MEDS: PEPCID PO SCH (10:35)
[2017-05-10] MEDS: HEPARIN SUB-Q SCH ×2 (10:35→23:04)
--- NOTE | 2017-05-10 11:28 | Progress Note ---
Assessment and Plan Assessment and plan: 61-year-old AA female with a history of COPD, hypertension and hyperlipidemia who presents with a 1 week of nonstop watery diarrhea, abdominal pain and weakness. Septic shock/severe sepsis weaned off pressors today, continue IV fluids, continue antibiotics Infectious disease consult appreciated Acute infectious colitis due to C. difficile continue abx, contact isolation, Continue oral vancomycin and IV Flagyl -start clear liquid diet and advance as tolerated COPD Continue oxygen, nebs and steroids Hypernatremia/dehydration -replace Free water deficit with d5w Metabolic acidosis due to sepsis, sp bicarb drip Acute Renal Failure due to ATN Nephrology consult appreciated -continue IVF improving The high probability of a clinically significant, sudden or life threatening deterioration of the [cv, pulmonary, Gi] system(s) required my full and direct attention, intervention and personal management. The aggregate critical care time was [44] minutes. This time is in addition to time spent performing reported procedures but includes the following: [] Data Review and interpretation [] Patient assessment and monitoring of vital signs [] Documentation [] Medication orders and management History Interval history: Diarrhea and abdominal pain is improved today Hospitalist Physical - Physical exam Narrative exam: General.: Appears well, no distress, nontoxic HEENT: Moist mucous membranes, extraocular muscles intact, no lymphadenopathy Neck: supple Cardiac: S1-S2 heard Lungs: clear to auscultation bilaterally Abdomen: soft , diffuse tenderness, nondistended, bowel sounds positive Extremities: no edema clubbing or cyanosis Skin: no rash or lesions Neurologic: no gross focal deficits Psych: appropriate behavior, appropriate mood, corporative, judgment intact - Constitutional Vitals: Temp Pulse Resp BP Pulse Ox 98.2 F 85 18 96/58 100 05/10/17 07:50 05/10/17 09:36 05/10/17 09:36 05/10/17 08:00 05/10/17 09:28 General appearance: Present: other (on BIPAP) Results - Labs CBC & Chem 7: 06/02/17 09:20 06/02/17 07:45 Labs: Laboratory Last Values WBC 20.9 K/mm3 (4.5-11.0) H 05/10/17 05:00 RBC 3.53 M/mm3 (3.65-5.03) L 05/10/17 05:00 Hgb 10.2 gm/dl (10.1-14.3) 05/10/17 05:00 Hct 31.7 % (30.3-42.9) 05/10/17 05:00 MCV 90 fl (79-97) 05/10/17 05:00 MCH 29 pg (28-32) 05/10/17 05:00 MCHC 32 % (30-34) 05/10/17 05:00 RDW 17.3 % (13.2-15.2) H 05/10/17 05:00 Plt Count 335 K/mm3 (140-440) 05/10/17 05:00 Add Manual Diff Complete 05/10/17 05:00 Total Counted 100 05/10/17 05:00 Seg Neutrophils % Appliance Service Technician 05/10/17 05:00 Seg Neuts % (Manual) 72.0 % (40.0-70.0) H 05/10/17 05:00 Band Neutrophils % 16.0 % 05/10/17 05:00 Lymphocytes % (Manual) 8.0 % (13.4-35.0) L 05/10/17 05:00 Reactive Lymphs % (Man) 0 % 05/10/17 05:00 Monocytes % (Manual) 4.0 % (0.0-7.3) 05/10/17 05:00 Eosinophils % (Manual) 0 % (0.0-4.3) 05/10/17 05:00 Basophils % (Manual) 0 % (0.0-1.8) 05/10/17 05:00 Metamyelocytes % 0 % 05/10/17 05:00 Myelocytes % 0 % 05/10/17 05:00 Promyelocytes % 0 % 05/10/17 05:00 Blast Cells % 0 % 05/10/17 05:00 Nucleated RBC % Not Reportable 05/10/17 05:00 Seg Neutrophils # Man 15.0 K/mm3 (1.8-7.7) H 05/10/17 05:00 Band Neutrophils # 3.3 K/mm3 05/10/17 05:00 Lymphocytes # (Manual) 1.7 K/mm3 (1.2-5.4) 05/10/17 05:00 Abs React Lymphs (Man) 0.0 K/mm3 05/10/17 05:00 Monocytes # (Manual) 0.8 K/mm3 (0.0-0.8) 05/10/17 05:00 Eosinophils # (Manual) 0.0 K/mm3 (0.0-0.4) 05/10/17 05:00 Basophils # (Manual) 0.0 K/mm3 (0.0-0.1) 05/10/17 05:00 Metamyelocytes # 0.0 K/mm3 05/10/17 05:00 Myelocytes # 0.0 K/mm3 05/10/17 05:00 Promyelocytes # 0.0 K/mm3 05/10/17 05:00 Blast Cells # 0.0 K/mm3 05/10/17 05:00 WBC Morphology Not Reportable 05/10/17 05:00 Hypersegmented Neuts Not Reportable 05/10/17 05:00 Hyposegmented Neuts Not Reportable 05/10/17 05:00 Hypogranular Neuts Not Reportable 05/10/17 05:00 Smudge Cells Not Reportable 05/10/17 05:00 Toxic Granulation Not Reportable 05/10/17 05:00 Toxic Vacuolation Not Reportable 05/10/17 05:00 Dohle Bodies Not Reportable 05/10/17 05:00 Pelger-Huet Anomaly Not Reportable 05/10/17 05:00 Neisha Rods Not Reportable 05/10/17 05:00 Platelet Estimate Appears normal 05/10/17 05:00 Clumped Platelets Not Reportable 05/10/17 05:00 Plt Clumps, EDTA Not Reportable 05/10/17 05:00 Large Platelets Not Reportable 05/10/17 05:00 Giant Platelets Not Reportable 05/10/17 05:00 Platelet Satelliting Not Reportable 05/10/17 05:00 Plt Morphology Comment Not Reportable 05/10/17 05:00 RBC Morphology Not Reportable 05/10/17 05:00 Dimorphic RBCs Not Reportable 05/10/17 05:00 Polychromasia Not Reportable 05/10/17 05:00 Hypochromasia 1+ 05/10/17 05:00 Poikilocytosis Few 05/10/17 05:00 Anisocytosis 1+ 05/10/17 05:00 Microcytosis Not Reportable 05/10/17 05:00 Macrocytosis Not Reportable 05/10/17 05:00 Spherocytes Not Reportable 05/10/17 05:00 Pappenheimer Bodies Not Reportable 05/10/17 05:00 Sickle Cells Not Reportable 05/10/17 05:00 Target Cells Not Reportable 05/10/17 05:00 Tear Drop Cells Few 05/10/17 05:00 Ovalocytes 1+ 05/10/17 05:00 Helmet Cells Not Reportable 05/10/17 05:00 Frank[place] Bodies Not Reportable 05/10/17 05:00 Burns Rings Not Reportable 05/10/17 05:00 Damián Cells Few 05/10/17 05:00 Bite Cells Not Reportable 05/10/17 05:00 Crenated Cell Not Reportable 05/10/17 05:00 Elliptocytes Not Reportable 05/10/17 05:00 Acanthocytes (Spur) Not Reportable 05/10/17 05:00 Rouleaux Not Reportable 05/10/17 05:00 Hemoglobin C Crystals Not Reportable 05/10/17 05:00 Schistocytes Not Reportable 05/10/17 05:00 Malaria parasites Not Reportable 05/10/17 05:00 Herve Bodies Not Reportable 05/10/17 05:00 Hem Pathologist Commnt No 05/10/17 05:00 D-Dimer 8441.57 ng/mlDDU (0-234) H 05/04/17 Unknown POC ABG pH TNR 05/07/17 11:57 POC ABG pCO2 TNR 05/07/17 11:57 POC ABG pO2 TNR 05/07/17 11:57 POC ABG HCO3 TNR 05/07/17 11:57 POC ABG Total CO2 TNR 05/07/17 11:57 POC ABG O2 Sat TNR 05/07/17 11:57 POC ABG Base Excess TNR 05/07/17 11:57 FiO2 TNR 05/07/17 11:57 Sodium 135 mmol/L (137-145) L D 05/10/17 05:00 Potassium 3.2 mmol/L (3.6-5.0) L 05/10/17 05:00 Chloride 98.9 mmol/L (98-107) 05/10/17 05:00 Carbon Dioxide 21 mmol/L (22-30) L 05/10/17 05:00 Anion Gap 18 mmol/L 05/10/17 05:00 BUN 45 mg/dL (7-17) H 05/10/17 05:00 Creatinine 2.2 mg/dL (0.7-1.2) H 05/10/17 05:00 Estimated GFR 27 ml/min 05/10/17 05:00 BUN/Creatinine Ratio 20 % 05/10/17 05:00 Glucose 308 mg/dL (65-100) H 05/10/17 05:00 POC Glucose 154 (70-105) H 05/10/17 07:28 Lactic Acid 0.40 mmol/L (0.7-2.0) L 05/04/17 Unknown Calcium 7.1 mg/dL (8.4-10.2) L 05/10/17 05:00 Ionized Calcium 3.5 mg/dL (4.8-5.6) L 05/05/17 17:45 Phosphorus 3.80 mg/dL (2.5-4.5) 05/10/17 05:00 Magnesium 2.10 mg/dL (1.7-2.3) 05/10/17 05:00 Total Bilirubin 0.20 mg/dL (0.1-1.2) 05/10/17 05:00 AST 10 units/L (5-40) 05/10/17 05:00 ALT 5 units/L (7-56) L 05/10/17 05:00 Alkaline Phosphatase 30 units/L (35-129) L 05/10/17 05:00 Total Creatine Kinase 346 units/L (30-135) H 05/05/17 05:20 CK-MB (CK-2) 8.2 ng/mL (0.0-4.0) H 05/05/17 05:20 CK-MB (CK-2) Rel Index 2.3 (0-4) 05/05/17 05:20 Troponin T 0.027 ng/mL (0.00-0.029) 05/05/17 05:20 C-Reactive Protein 14.50 mg/dL (0.00-1.30) H 05/06/17 07:55 Total Protein 3.8 g/dL (6.3-8.2) L 05/10/17 05:00 Albumin 2.1 g/dL (3.9-5) L 05/10/17 05:00 Albumin/Globulin Ratio 1.2 % 05/10/17 05:00 Triglycerides 149 mg/dL (2-149) 05/04/17 18:55 Cholesterol 185 mg/dL (50-199) 05/04/17 18:55 LDL Cholesterol Direct 103 mg/dL (50-130) 05/04/17 18:55 HDL Cholesterol 53 mg/dL (40-59) 05/04/17 18:55 Cholesterol/HDL Ratio 3.49 % 05/04/17 18:55 TSH 1.780 mlU/mL (0.270-4.200) 05/04/17 18:39 Urine Color Carol (Yellow) 05/04/17 02:20 Urine Turbidity Clear (Clear) 05/04/17 02:20 Urine pH 5.0 (5.0-7.0) 05/04/17 02:20 Ur Specific [place] 1.018 (1.003-1.030) 05/04/17 02:20 Urine Protein 30 mg/dl mg/dL (Negative) 05/04/17 02:20 Urine Glucose (UA) Neg mg/dL (Negative) 05/04/17 02:20 Urine Ketones Tr mg/dL (Negative) 05/04/17 02:20 Urine Blood Lg (Negative) 05/04/17 02:20 Urine Nitrite Neg (Negative) 05/04/17 02:20 Urine Bilirubin Neg (Negative) 05/04/17 02:20 Urine Urobilinogen < 2.0 mg/dL (<2.0) 05/04/17 02:20 Ur Leukocyte Esterase Sm (Negative) 05/04/17 02:20 Urine WBC (Auto) 100.0 /HPF (0.0-6.0) H 05/04/17 02:20 Urine RBC (Auto) 44.0 /HPF (0.0-6.0) 05/04/17 02:20 U Epithel Cells (Auto) 2.0 /HPF (0-13.0) 05/04/17 02:20 Urine Bacteria (Auto) 1+ /HPF (Negative) 05/04/17 02:20 Urine Mucus Few /HPF 05/04/17 02:20 Urine Creatinine 28.0 mg/dL (0.1-20.0) H 05/05/17 Unknown Urine Sodium 129 mmol/L 05/05/17 Unknown Urine Potassium 3.67 mmol/L 05/05/17 Unknown Urine Chloride 115.6 mmolL (110-250) 05/05/17 Unknown Salicylates 0.3 mg/dL (2.8-20.0) L 05/04/17 18:39 Urine Opiates Screen Presumptive negative 05/04/17 02:20 Urine Methadone Screen Presumptive negative 05/04/17 02:20 Acetaminophen < 15.0 ug/mL (10.0-30.0) 05/04/17 18:39 Ur Barbiturates Screen Presumptive negative 05/04/17 02:20 Ur Phencyclidine Scrn Presumptive negative 05/04/17 02:20 Ur Amphetamines Screen Presumptive negative 05/04/17 02:20 U Benzodiazepines Scrn Presumptive negative 05/04/17 02:20 Urine Cocaine Screen Presumptive negative 05/04/17 02:20 U Marijuana (THC) Screen Presumptive negative 05/04/17 02:20 Drugs of Abuse Note Disclamer 05/04/17 02:20 Plasma/Serum Alcohol < 0.01 gm% (0-0.07) 05/04/17 18:39 Miscellaneous Test Flexitest 1 H 05/06/17 17:30
--- NOTE | 2017-05-10 12:25 | XRay Report ---
AP CHEST: HISTORY: Short of breath Compared to 05/09/17. The right IJ venous catheter has been removed. The left arm PICC remains in the same position. The lungs are hyperinflated. Small bilateral pleural effusions and bibasilar atelectasis is suspected. The upper lung zones are clear. Heart size is normal. The bony structures are intact. IMPRESSION: Hyperinflated lungs. Small bilateral pleural effusions and mild bibasilar atelectasis. No overwhelming change since yesterday's exam.
--- NOTE | 2017-05-10 12:54 | Progress Note ---
Assessment and Plan Impression: * Acute kidney injury secondary to prerenal azotemia due to volume depletion secondary to GI loss - improved * Colitis * Sepsis * Metabolic acidosis,resolved - likely related to diarrhea; LA unremarkable * Hypokalemia * Hypernatremia * Hypocalcemia - corrected Ca 8.2 * Hypoalbuminemia Plan: * Renal function stable * Na improved with d5w * Abx per ID * Replete lytes daily * Avoid potential nephrotoxins * maintain MAP>65 * Dose medications for renal function Subjective Date of service: 05/10/17 Principal diagnosis: Septic shock,C. diff colitis Interval history: resting well in bed today Objective - Exam Narrative Exam: General appearance: well-developed, well-nourished EENT: ATNC Neck: no JVD Respiratory: Present: Decreased Breath Sounds Cardiology: regular, S1S2 Gastrointestinal: hypoactive bowel sounds, no tenderness, distended Integumentary: no rash Neurologic: reflexes 2+ and symmetric Musculoskeletal: other (trace edema) Psychiatric: cooperative - Vital Signs Vital signs: Vital Signs - 12hr 05/10/17 05/10/17 05/10/17 01:00 01:30 02:00 Temperature Pulse Rate 103 H 120 H 118 H Pulse Rate [ Anterior Bilateral Throughout] Pulse Rate [ Bilateral Bases ] Respiratory 21 21 20 Rate Respiratory Rate [Anterior Bilateral Throughout] Respiratory Rate [Bilateral Bases] Blood Pressure 123/67 117/72 118/71 O2 Sat by Pulse 99 99 99 Oximetry 05/10/17 05/10/17 05/10/17 02:30 03:00 03:30 Temperature Pulse Rate 117 H 102 H 105 H Pulse Rate [ Anterior Bilateral Throughout] Pulse Rate [ Bilateral Bases ] Respiratory 25 H 14 20 Rate Respiratory Rate [Anterior Bilateral Throughout] Respiratory Rate [Bilateral Bases] Blood Pressure 120/72 114/88 122/87 O2 Sat by Pulse 99 99 100 Oximetry 05/10/17 05/10/17 05/10/17 04:00 04:30 05:00 Temperature Pulse Rate 79 130 H 128 H Pulse Rate [ Anterior Bilateral Throughout] Pulse Rate [ Bilateral Bases ] Respiratory 20 16 16 Rate Respiratory Rate [Anterior Bilateral Throughout] Respiratory Rate [Bilateral Bases] Blood Pressure 111/63 119/66 111/63 O2 Sat by Pulse 100 99 98 Oximetry 05/10/17 05/10/17 05/10/17 05:30 06:00 06:30 Temperature Pulse Rate 129 H 102 H 117 H Pulse Rate [ Anterior Bilateral Throughout] Pulse Rate [ Bilateral Bases ] Respiratory 14 19 19 Rate Respiratory Rate [Anterior Bilateral Throughout] Respiratory Rate [Bilateral Bases] Blood Pressure 115/70 120/69 108/72 O2 Sat by Pulse 99 100 100 Oximetry 05/10/17 05/10/17 05/10/17 06:57 07:00 07:30 Temperature Pulse Rate 126 H 100 H Pulse Rate [ Anterior Bilateral Throughout] Pulse Rate [ Bilateral Bases ] Respiratory 18 15 14 Rate Respiratory Rate [Anterior Bilateral Throughout] Respiratory Rate [Bilateral Bases] Blood Pressure 119/62 107/59 O2 Sat by Pulse 100 100 Oximetry 05/10/17 05/10/17 05/10/17 07:50 08:00 09:27 Temperature 98.2 F Pulse Rate 92 H Pulse Rate [ Anterior Bilateral Throughout] Pulse Rate [ 88 Bilateral Bases ] Respiratory 14 Rate Respiratory Rate [Anterior Bilateral Throughout] Respiratory 16 Rate [Bilateral Bases] Blood Pressure 96/58 O2 Sat by Pulse 100 Oximetry 05/10/17 05/10/17 05/10/17 09:28 09:36 11:49 Temperature 97.2 F L Pulse Rate Pulse Rate [ 85 Anterior Bilateral Throughout] Pulse Rate [ Bilateral Bases ] Respiratory Rate Respiratory 18 Rate [Anterior Bilateral Throughout] Respiratory Rate [Bilateral Bases] Blood Pressure O2 Sat by Pulse 100 Oximetry - Lab 05/10/17 05:00 05/10/17 05:00 Most recent lab results Calcium 7.1 mg/dL (8.4-10.2) L 05/10/17 05:00 Phosphorus 3.80 mg/dL (2.5-4.5) 05/10/17 05:00 Magnesium 2.10 mg/dL (1.7-2.3) 05/10/17 05:00 Urine Creatinine 28.0 mg/dL (0.1-20.0) H 05/05/17 Unknown Urine Sodium 129 mmol/L 05/05/17 Unknown
[2017-05-10] MEDS: PROVENTIL IH SCH ×2 (14:56→21:02)
[2017-05-10] MEDS ORDERED: POTASSIUM CHLORIDE FEEDTUBE ONE (16:34)
[2017-05-10] MEDS ORDERED: POTASSIUM CHLORIDE PO ONE (17:30)
[2017-05-11] MEDS: VANCOMYCIN PO PO SCH ×6 (01:30→23:58)
[2017-05-11] MEDS: PROVENTIL IH SCH ×4 (03:57→20:53)
[2017-05-11] MEDS: FLAGYL 500 MG/100 ML 500 MG/100 ML BAG IV SCH ×6 (05:49→23:57)
[2017-05-11 07:16] LABS: Hematocrit 34.2 % (30.3-42.9); Hemoglobin 10.9 gm/dl (10.1-14.3); Mean Corpuscular HGB Conc 32 % (30-34); Mean Corpuscular Hemoglobin 29 pg (28-32); Mean Corpuscular Volume 90 fl (79-97); Platelet Count 336 K/mm3 (140-440); Red Blood Count 3.81 M/mm3 (3.65-5.03); Red Cell Distribution Width 17.4 % (13.2-15.2)
[2017-05-11 07:18] LABS: White Blood Count 24.4 K/mm3 (4.5-11.0)
[2017-05-11] MEDS: NOVOLOG SUB-Q SCH ×5 (07:30→22:42)
[2017-05-11 07:32] LABS: Albumin/Globulin Ratio 1.3 %; Alkaline Phosphatase 25 units/L (35-129); Anion Gap 16 mmol/L; BUN/Creatinine Ratio 18; Blood Urea Nitrogen 50 mg/dL (7-17); Calcium 7.6 mg/dL (8.4-10.2); Carbon Dioxide 22 mmol/L (22-30); Glucose 131 mg/dL (65-100); Potassium 3.4 mmol/L (3.6-5.0); Sodium 141 mmol/L (137-145); Total Protein 3.6 g/dL (6.3-8.2)
[2017-05-11 07:36] LABS: Alanine Aminotransferase < 5 units/L (7-56)
[2017-05-11] MEDS: DILAUDID IV PRN ×4 (08:20→18:38)
[2017-05-11 08:32] LABS: Basophils % (Manual) 0 % (0.0-1.8); Blastocytes % (Manual) 0 %; Eosinophils % (Manual) 0 % (0.0-4.3)
[2017-05-11 08:34] LABS: Anisocytosis 1+; Burr Cells Rare; Hypochromasia 1+; Ovalocytes 1+; Poikilocytosis Rare
[2017-05-11 08:35] LABS: Diff Status Complete; Platelet Estimate Consistent w Auto
[2017-05-11] MEDS: DUONEB *Not for PRN Use IH SCH ×3 (09:18→20:54)
[2017-05-11] MEDS: BROVANA NEBU IH SCH ×2 (09:18→20:54)
[2017-05-11] MEDS: PULMICORT IH SCH ×2 (09:18→20:54)
--- NOTE | 2017-05-11 10:09 | Progress Note ---
Assessment and Plan Shock. Resolved reviously, off pressors. Noted with lob BP this morning, still with diarrhea Pulmonary edema? Chest clear Hypernatremia. Resolved Severe sepsis with MSOF, secondary to GI source,colitis. Positive C. difficile. WBC still high. On ABX per ID recommendations Acute gastroenteritis/C. difficile. Abdominal CT showing colitis, mild ascites COPD, controlled .No wheezing,off steroids. Metabolic/respiratory acidosis,AG acidosis. Hypocalcemia with hypoalbuminemia. Corrected PHT on echo, severe. No new findings Anemia. Stool OB + A/C kidney injury. Nephrology following Hyperglicemia- Improved Recommendations Give NSS bolus If persistent repeat as needed x 1 restart IVF, KEEP I/O balanced Monitor BS,f/u per IMS Monitor UO, keep > 30 cc/ hr MAO > 65 Complete antibiotics per ID Discussed orders / RN's No family members available for case discussion Subjective Date of service: 05/11/17 Principal diagnosis: Septic shock,C. diff colitis Interval history: No SOB,chest pain or chest complains. Feels weakn, had diarrhea x 1 this morning. Objective Vital Signs - 12hr 05/11/17 05/11/17 00:37 06:26 Temperature 98.7 F 98.5 F Pulse Rate 97 H 44 L Respiratory 21 22 Rate Blood Pressure 83/44 89/49 O2 Sat by Pulse 96 97 Oximetry Constitutional: alert, appears uncomfortable ENT: oropharynx moist Neck: supple, no lymphadenopathy, no JVD, other (RT IJ) Ascultation: Bilateral: clear, diminished breath sounds Percussion: Bilateral: not dull Cardiovascular: regular rate and rhythm Gastrointestinal: normoactive bowel sounds, tender (mild no rebound, ) Integumentary: normal Extremities: no cyanosis, no edema Neurologic: normal mental status, non-focal exam, pupils equal and round, CN II- XII normal, motor strength normal and Psychiatric: mood appropriate, affect normal CBC and BMP: 05/11/17 06:50 05/11/17 06:50 ABG, PT/INR, D-dimer: ABG POC ABG pH TNR 05/07/17 11:57 POC ABG pCO2 TNR 05/07/17 11:57 POC ABG pO2 TNR 05/07/17 11:57 POC ABG HCO3 TNR 05/07/17 11:57 POC ABG Total CO2 TNR 05/07/17 11:57 POC ABG O2 Sat TNR 05/07/17 11:57 PT/INR, D-dimer D-Dimer 8441.57 ng/mlDDU (0-234) H 05/04/17 Unknown Abnormal lab findings: Abnormal Labs 05/04/17 05/04/17 05/04/17 02:20 18:39 18:39 WBC 24.3 H RBC Hgb Hct RDW 16.4 H Plt Count 658 H Seg Neuts % (Manual) 94.5 H Lymphocytes % (Manual) 2.5 L Seg Neutrophils # Man 23.0 H Lymphocytes # (Manual) 0.6 L Monocytes # (Manual) D-Dimer POC ABG pH POC ABG pCO2 POC ABG pO2 Sodium Potassium 3.2 L Chloride 92.6 L Carbon Dioxide 14 L BUN 66 H Creatinine 6.5 H Glucose POC Glucose Lactic Acid Calcium 7.5 L Ionized Calcium Phosphorus Magnesium ALT 5 L Alkaline Phosphatase 32 L Total Creatine Kinase CK-MB (CK-2) Troponin T C-Reactive Protein Total Protein 5.4 L Albumin 3.0 L Urine WBC (Auto) 100.0 H Urine Creatinine Salicylates Miscellaneous Test 05/04/17 05/04/17 05/04/17 18:39 18:55 Unknown WBC RBC Hgb Hct RDW Plt Count Seg Neuts % (Manual) Lymphocytes % (Manual) Seg Neutrophils # Man Lymphocytes # (Manual) Monocytes # (Manual) D-Dimer POC ABG pH POC ABG pCO2 POC ABG pO2 Sodium Potassium Chloride Carbon Dioxide BUN Creatinine Glucose POC Glucose Lactic Acid 0.40 L Calcium Ionized Calcium Phosphorus Magnesium ALT Alkaline Phosphatase Total Creatine Kinase 155 H CK-MB (CK-2) 4.5 H Troponin T 0.033 H C-Reactive Protein Total Protein Albumin Urine WBC (Auto) Urine Creatinine Salicylates 0.3 L Miscellaneous Test 05/04/17 05/04/17 05/04/17 Unknown Unknown Unknown WBC RBC Hgb Hct RDW Plt Count Seg Neuts % (Manual) Lymphocytes % (Manual) Seg Neutrophils # Man Lymphocytes # (Manual) Monocytes # (Manual) D-Dimer 8441.57 H POC ABG pH POC ABG pCO2 POC ABG pO2 Sodium Potassium Chloride Carbon Dioxide BUN Creatinine Glucose POC Glucose Lactic Acid 0.40 L Calcium Ionized Calcium Phosphorus Magnesium ALT Alkaline Phosphatase Total Creatine Kinase 246 H CK-MB (CK-2) 6.2 H Troponin T C-Reactive Protein Total Protein Albumin Urine WBC (Auto) Urine Creatinine Salicylates Miscellaneous Test 05/05/17 05/05/17 05/05/17 05:20 05:20 05:20 WBC 33.9 H RBC 3.39 L Hgb 9.3 L Hct RDW 16.7 H Plt Count 712 H Seg Neuts % (Manual) 91.0 H Lymphocytes % (Manual) 1.0 L Seg Neutrophils # Man 30.8 H Lymphocytes # (Manual) 0.3 L Monocytes # (Manual) 1.5 H D-Dimer POC ABG pH POC ABG pCO2 POC ABG pO2 Sodium Potassium Chloride Carbon Dioxide 9 L* BUN 53 H Creatinine 5.4 H Glucose POC Glucose Lactic Acid Calcium 6.1 L D Ionized Calcium Phosphorus Magnesium ALT Alkaline Phosphatase Total Creatine Kinase 346 H CK-MB (CK-2) 8.2 H Troponin T C-Reactive Protein Total Protein Albumin Urine WBC (Auto) Urine Creatinine Salicylates Miscellaneous Test 05/05/17 05/05/17 05/05/17 10:43 17:45 17:45 WBC RBC Hgb 8.8 L Hct RDW Plt Count Seg Neuts % (Manual) Lymphocytes % (Manual) Seg Neutrophils # Man Lymphocytes # (Manual) Monocytes # (Manual) D-Dimer POC ABG pH 6.872 L POC ABG pCO2 POC ABG pO2 120 H Sodium Potassium Chloride Carbon Dioxide BUN Creatinine Glucose POC Glucose Lactic Acid Calcium Ionized Calcium 3.5 L Phosphorus Magnesium ALT Alkaline Phosphatase Total Creatine Kinase CK-MB (CK-2) Troponin T C-Reactive Protein Total Protein Albumin Urine WBC (Auto) Urine Creatinine Salicylates Miscellaneous Test 05/05/17 05/05/17 05/05/17 17:45 20:58 Unknown WBC RBC Hgb 9.0 L Hct 29.8 L RDW Plt Count Seg Neuts % (Manual) Lymphocytes % (Manual) Seg Neutrophils # Man Lymphocytes # (Manual) Monocytes # (Manual) D-Dimer POC ABG pH POC ABG pCO2 POC ABG pO2 Sodium Potassium Chloride Carbon Dioxide BUN Creatinine Glucose POC Glucose Lactic Acid Calcium Ionized Calcium Phosphorus 6.20 H Magnesium 1.20 L ALT Alkaline Phosphatase Total Creatine Kinase CK-MB (CK-2) Troponin T C-Reactive Protein Total Protein Albumin Urine WBC (Auto) Urine Creatinine 28.0 H Salicylates Miscellaneous Test 05/06/17 05/06/17 05/06/17 05:09 05:23 07:55 WBC RBC Hgb Hct RDW Plt Count Seg Neuts % (Manual) Lymphocytes % (Manual) Seg Neutrophils # Man Lymphocytes # (Manual) Monocytes # (Manual) D-Dimer POC ABG pH 7.029 L 7.060 L POC ABG pCO2 54.8 H 48.6 H POC ABG pO2 74 L 43 L Sodium Potassium 3.5 L Chloride Carbon Dioxide 18 L D BUN 44 H Creatinine 3.5 H Glucose 252 H POC Glucose Lactic Acid Calcium 5.8 L* Ionized Calcium Phosphorus Magnesium ALT Alkaline Phosphatase Total Creatine Kinase CK-MB (CK-2) Troponin T C-Reactive Protein Total Protein Albumin Urine WBC (Auto) Urine Creatinine Salicylates Miscellaneous Test 05/06/17 05/06/17 05/06/17 07:55 15:28 17:30 WBC RBC Hgb Hct RDW Plt Count Seg Neuts % (Manual) Lymphocytes % (Manual) Seg Neutrophils # Man Lymphocytes # (Manual) Monocytes # (Manual) D-Dimer POC ABG pH 7.066 L POC ABG pCO2 80.9 H POC ABG pO2 65 L Sodium Potassium Chloride Carbon Dioxide BUN Creatinine Glucose POC Glucose Lactic Acid Calcium Ionized Calcium Phosphorus Magnesium ALT Alkaline Phosphatase Total Creatine Kinase CK-MB (CK-2) Troponin T C-Reactive Protein 14.50 H Total Protein Albumin Urine WBC (Auto) Urine Creatinine Salicylates Miscellaneous Test Flexitest 1 H 05/06/17 05/06/17 05/07/17 17:30 Unknown 10:18 WBC 39.2 H 32.9 H RBC 3.27 L Hgb 9.3 L Hct 30.2 L RDW 16.4 H 17.0 H Plt Count 645 H 467 H Seg Neuts % (Manual) Lymphocytes % (Manual) 11.0 L Seg Neutrophils # Man 21.2 H Lymphocytes # (Manual) Monocytes # (Manual) 2.0 H D-Dimer POC ABG pH POC ABG pCO2 POC ABG pO2 Sodium Potassium 3.4 L Chloride Carbon Dioxide BUN 41 H Creatinine 3.2 H Glucose 265 H POC Glucose Lactic Acid Calcium 6.7 L D Ionized Calcium Phosphorus Magnesium ALT Alkaline Phosphatase Total Creatine Kinase CK-MB (CK-2) Troponin T C-Reactive Protein Total Protein Albumin Urine WBC (Auto) Urine Creatinine Salicylates Miscellaneous Test 05/07/17 05/07/17 05/08/17 11:32 12:36 05:45 WBC 31.1 H RBC 3.41 L Hgb 9.8 L Hct RDW 16.9 H Plt Count Seg Neuts % (Manual) 96.0 H Lymphocytes % (Manual) 1.0 L Seg Neutrophils # Man 29.9 H Lymphocytes # (Manual) 0.3 L Monocytes # (Manual) D-Dimer POC ABG pH 7.290 L POC ABG pCO2 48.3 H POC ABG pO2 51 L Sodium 146 H Potassium 3.1 L Chloride 109.2 H Carbon Dioxide 20 L BUN 38 H Creatinine 2.7 H Glucose 213 H POC Glucose Lactic Acid Calcium 6.6 L Ionized Calcium Phosphorus Magnesium ALT Alkaline Phosphatase Total Creatine Kinase CK-MB (CK-2) Troponin T C-Reactive Protein Total Protein Albumin Urine WBC (Auto) Urine Creatinine Salicylates Miscellaneous Test 05/08/17 05/08/17 05/09/17 05:45 18:55 04:05 WBC 26.1 H RBC Hgb Hct RDW 17.6 H Plt Count Seg Neuts % (Manual) Lymphocytes % (Manual) 5.0 L Seg Neutrophils # Man 16.7 H Lymphocytes # (Manual) Monocytes # (Manual) D-Dimer POC ABG pH POC ABG pCO2 POC ABG pO2 Sodium 150 H Potassium Chloride 115.4 H 112.2 H Carbon Dioxide 20 L 18 L BUN 39 H 45 H Creatinine 2.4 H 2.3 H Glucose 160 H 219 H POC Glucose Lactic Acid Calcium 6.6 L 7.2 L Ionized Calcium Phosphorus Magnesium 1.40 L ALT 6 L Alkaline Phosphatase Total Creatine Kinase CK-MB (CK-2) Troponin T C-Reactive Protein Total Protein 4.1 L D Albumin 2.0 L Urine WBC (Auto) Urine Creatinine Salicylates Miscellaneous Test 05/09/17 05/09/17 05/09/17 04:05 05:15 05:45 WBC RBC Hgb Hct RDW Plt Count Seg Neuts % (Manual) Lymphocytes % (Manual) Seg Neutrophils # Man Lymphocytes # (Manual) Monocytes # (Manual) D-Dimer POC ABG pH POC ABG pCO2 POC ABG pO2 Sodium 130 L D Potassium 3.4 L D Chloride 94.6 L Carbon Dioxide 19 L BUN 39 H Creatinine 2.1 H Glucose 549 H* 189 H POC Glucose 181 H Lactic Acid Calcium 6.6 L Ionized Calcium Phosphorus Magnesium ALT 6 L Alkaline Phosphatase 31 L Total Creatine Kinase CK-MB (CK-2) Troponin T C-Reactive Protein Total Protein 3.5 L Albumin 2.0 L Urine WBC (Auto) Urine Creatinine Salicylates Miscellaneous Test 05/09/17 05/09/17 05/09/17 08:03 11:08 16:15 WBC RBC Hgb Hct RDW Plt Count Seg Neuts % (Manual) Lymphocytes % (Manual) Seg Neutrophils # Man Lymphocytes # (Manual) Monocytes # (Manual) D-Dimer POC ABG pH POC ABG pCO2 POC ABG pO2 Sodium Potassium Chloride 107.8 H Carbon Dioxide 21 L BUN 43 H Creatinine 2.4 H Glucose 195 H POC Glucose 299 H 111 H Lactic Acid Calcium 7.1 L Ionized Calcium Phosphorus Magnesium ALT Alkaline Phosphatase Total Creatine Kinase CK-MB (CK-2) Troponin T C-Reactive Protein Total Protein 3.9 L Albumin 2.3 L Urine WBC (Auto) Urine Creatinine Salicylates Miscellaneous Test 05/09/17 05/10/17 05/10/17 23:05 05:00 05:00 WBC 20.9 H RBC 3.53 L Hgb Hct RDW 17.3 H Plt Count Seg Neuts % (Manual) 72.0 H Lymphocytes % (Manual) 8.0 L Seg Neutrophils # Man 15.0 H Lymphocytes # (Manual) Monocytes # (Manual) D-Dimer POC ABG pH POC ABG pCO2 POC ABG pO2 Sodium 135 L D Potassium 3.2 L Chloride Carbon Dioxide 21 L BUN 45 H Creatinine 2.2 H Glucose 308 H POC Glucose 336 H Lactic Acid Calcium 7.1 L Ionized Calcium Phosphorus Magnesium ALT 5 L Alkaline Phosphatase 30 L Total Creatine Kinase CK-MB (CK-2) Troponin T C-Reactive Protein Total Protein 3.8 L Albumin 2.1 L Urine WBC (Auto) Urine Creatinine Salicylates Miscellaneous Test 05/10/17 05/10/17 05/10/17 07:28 11:36 16:03 WBC RBC Hgb Hct RDW Plt Count Seg Neuts % (Manual) Lymphocytes % (Manual) Seg Neutrophils # Man Lymphocytes # (Manual) Monocytes # (Manual) D-Dimer POC ABG pH POC ABG pCO2 POC ABG pO2 Sodium Potassium Chloride Carbon Dioxide BUN Creatinine Glucose POC Glucose 154 H 184 H 162 H Lactic Acid Calcium Ionized Calcium Phosphorus Magnesium ALT Alkaline Phosphatase Total Creatine Kinase CK-MB (CK-2) Troponin T C-Reactive Protein Total Protein Albumin Urine WBC (Auto) Urine Creatinine Salicylates Miscellaneous Test 05/10/17 05/11/17 05/11/17 21:13 06:50 06:50 WBC 24.4 H RBC Hgb Hct RDW 17.4 H Plt Count Seg Neuts % (Manual) Lymphocytes % (Manual) 5.0 L Seg Neutrophils # Man 16.3 H Lymphocytes # (Manual) Monocytes # (Manual) 1.0 H D-Dimer POC ABG pH POC ABG pCO2 POC ABG pO2 Sodium Potassium 3.4 L Chloride Carbon Dioxide BUN 50 H Creatinine 2.8 H Glucose 131 H POC Glucose 188 H Lactic Acid Calcium 7.6 L Ionized Calcium Phosphorus Magnesium ALT < 5 L Alkaline Phosphatase 25 L Total Creatine Kinase CK-MB (CK-2) Troponin T C-Reactive Protein Total Protein 3.6 L Albumin 2.0 L Urine WBC (Auto) Urine Creatinine Salicylates Miscellaneous Test
[2017-05-11] MEDS: PEPCID PO SCH (10:40)
--- NOTE | 2017-05-11 11:59 | Progress Note ---
Assessment and Plan Impression: * Acute kidney injury secondary to prerenal azotemia due to volume depletion secondary to GI loss - improved * Colitis * Sepsis * Metabolic acidosis,resolved - likely related to diarrhea; LA unremarkable * Hypokalemia * Hypernatremia * Hypocalcemia - corrected Ca 8.2 * Hypoalbuminemia Plan: * Renal function worse today * Na rise noted * recheck ua, daily lytes * replete k prn * Abx per ID * Replete lytes daily * Avoid potential nephrotoxins * maintain MAP>65 * Dose medications for renal function Subjective Date of service: 05/11/17 Principal diagnosis: Septic shock,C. diff colitis Interval history: resting well in bed today Objective - Exam Narrative Exam: General appearance: well-developed, well-nourished EENT: ATNC Neck: no JVD Respiratory: Present: Decreased Breath Sounds Cardiology: regular, S1S2 Gastrointestinal: hypoactive bowel sounds, no tenderness, distended Integumentary: no rash Neurologic: reflexes 2+ and symmetric Musculoskeletal: other (trace edema) Psychiatric: cooperative - Vital Signs Vital signs: Vital Signs - 12hr 05/11/17 05/11/17 00:37 06:26 Temperature 98.7 F 98.5 F Pulse Rate 97 H 44 L Respiratory 21 22 Rate Blood Pressure 83/44 89/49 O2 Sat by Pulse 96 97 Oximetry - Lab 05/11/17 06:50 05/11/17 06:50 Most recent lab results Calcium 7.6 mg/dL (8.4-10.2) L 05/11/17 06:50 Phosphorus 4.30 mg/dL (2.5-4.5) 05/11/17 06:50 Magnesium 2.20 mg/dL (1.7-2.3) 05/11/17 06:50 Urine Creatinine 28.0 mg/dL (0.1-20.0) H 05/05/17 Unknown Urine Sodium 129 mmol/L 05/05/17 Unknown
[2017-05-11] MEDS ORDERED: NACL 0.9% 1000 ML 1,000 ML IV SCH (12:00)
[2017-05-11] MEDS: HEPARIN SUB-Q SCH ×2 (12:03→22:42)
--- NOTE | 2017-05-11 12:20 | Progress Note ---
Assessment and Plan Assessment and plan: --Hypokalemia; replace per protocol and monitor evidence --Hypovolemic shock, off pressors, continue supportive care --Severe sepsis; secondary to C. difficile colitis, supportive care -- C. difficile colitis; IV fluids, oral vancomycin IV Flagyl. Contact isolation, IV fluids --Acute kidney injury secondary to vasomotor nephropathy, due to fluid depletion Gently hydration and closely monitor renal function --Metabolic acidosis; aggressive IV hydration --History of COPD with exacerbation; continue current nebulizers and IV antibiotics and steroids if needed --Pulmonary hypertension on echo --Chronic anemia; closely monitor H&H and transfuse as needed, stool for occult blood --Severe hypoalbuminemia/protein Malnutrition; nutritional supplements and supportive care Nutrition consult if needed --DVT prophylaxis; heparin renal dose Closely monitor the patient and adjust management as needed * History Interval history: Patient seen and examined and had no medical records reviewed No new events reported by the nursing staff Patient seen slightly better, no new complaints Hospitalist Physical - Constitutional Vitals: Temp Pulse Resp BP Pulse Ox 98.5 F 44 L 22 89/49 97 05/11/17 06:26 05/11/17 06:26 05/11/17 06:26 05/11/17 06:26 05/11/17 06:26 General appearance: Present: no acute distress, well-nourished, other (on BIPAP) - EENT Eyes: Present: PERRL, EOM intact - Neck Neck: Present: supple, normal ROM - Respiratory Respiratory effort: normal Respiratory: bilateral: diminished, rales, negative: rhonchi, wheezing - Cardiovascular Rhythm: regular Heart Sounds: Present: S1 & S2 - Extremities Extremities: no ischemia, No edema - Abdominal General gastrointestinal: soft, non-tender, non-distended - Integumentary Integumentary: Present: clear, warm - Psychiatric Psychiatric: appropriate mood/affect, cooperative - Neurologic Neurologic: CNII-XII intact, moves all extremities Results - Labs CBC & Chem 7: 05/11/17 06:50 05/11/17 06:50 Labs: Laboratory Last Values WBC 24.4 K/mm3 (4.5-11.0) H 05/11/17 06:50 RBC 3.81 M/mm3 (3.65-5.03) 05/11/17 06:50 Hgb 10.9 gm/dl (10.1-14.3) 05/11/17 06:50 Hct 34.2 % (30.3-42.9) 05/11/17 06:50 MCV 90 fl (79-97) 05/11/17 06:50 MCH 29 pg (28-32) 05/11/17 06:50 MCHC 32 % (30-34) 05/11/17 06:50 RDW 17.4 % (13.2-15.2) H 05/11/17 06:50 Plt Count 336 K/mm3 (140-440) 05/11/17 06:50 Add Manual Diff Complete 05/11/17 06:50 Total Counted 100 05/11/17 06:50 Seg Neutrophils % Biomedical Engineering Director 05/11/17 06:50 Seg Neuts % (Manual) 67.0 % (40.0-70.0) 05/11/17 06:50 Band Neutrophils % 24.0 % 05/11/17 06:50 Lymphocytes % (Manual) 5.0 % (13.4-35.0) L 05/11/17 06:50 Reactive Lymphs % (Man) 0 % 05/11/17 06:50 Monocytes % (Manual) 4.0 % (0.0-7.3) 05/11/17 06:50 Eosinophils % (Manual) 0 % (0.0-4.3) 05/11/17 06:50 Basophils % (Manual) 0 % (0.0-1.8) 05/11/17 06:50 Metamyelocytes % 0 % 05/11/17 06:50 Myelocytes % 0 % 05/11/17 06:50 Promyelocytes % 0 % 05/11/17 06:50 Blast Cells % 0 % 05/11/17 06:50 Nucleated RBC % Not Reportable 05/11/17 06:50 Seg Neutrophils # Man 16.3 K/mm3 (1.8-7.7) H 05/11/17 06:50 Band Neutrophils # 5.9 K/mm3 05/11/17 06:50 Lymphocytes # (Manual) 1.2 K/mm3 (1.2-5.4) 05/11/17 06:50 Abs React Lymphs (Man) 0.0 K/mm3 05/11/17 06:50 Monocytes # (Manual) 1.0 K/mm3 (0.0-0.8) H 05/11/17 06:50 Eosinophils # (Manual) 0.0 K/mm3 (0.0-0.4) 05/11/17 06:50 Basophils # (Manual) 0.0 K/mm3 (0.0-0.1) 05/11/17 06:50 Metamyelocytes # 0.0 K/mm3 05/11/17 06:50 Myelocytes # 0.0 K/mm3 05/11/17 06:50 Promyelocytes # 0.0 K/mm3 05/11/17 06:50 Blast Cells # 0.0 K/mm3 05/11/17 06:50 WBC Morphology Not Reportable 05/11/17 06:50 Hypersegmented Neuts Not Reportable 05/11/17 06:50 Hyposegmented Neuts Not Reportable 05/11/17 06:50 Hypogranular Neuts Not Reportable 05/11/17 06:50 Smudge Cells Not Reportable 05/11/17 06:50 Toxic Granulation Not Reportable 05/11/17 06:50 Toxic Vacuolation Not Reportable 05/11/17 06:50 Dohle Bodies Not Reportable 05/11/17 06:50 Pelger-Huet Anomaly Not Reportable 05/11/17 06:50 Neisha Rods Not Reportable 05/11/17 06:50 Platelet Estimate Consistent w auto 05/11/17 06:50 Clumped Platelets Not Reportable 05/11/17 06:50 Plt Clumps, EDTA Not Reportable 05/11/17 06:50 Large Platelets Not Reportable 05/11/17 06:50 Giant Platelets Not Reportable 05/11/17 06:50 Platelet Satelliting Not Reportable 05/11/17 06:50 Plt Morphology Comment Not Reportable 05/11/17 06:50 RBC Morphology Not Reportable 05/11/17 06:50 Dimorphic RBCs Not Reportable 05/11/17 06:50 Polychromasia Not Reportable 05/11/17 06:50 Hypochromasia 1+ 05/11/17 06:50 Poikilocytosis Rare 05/11/17 06:50 Anisocytosis 1+ 05/11/17 06:50 Microcytosis Not Reportable 05/11/17 06:50 Macrocytosis Not Reportable 05/11/17 06:50 Spherocytes Not Reportable 05/11/17 06:50 Pappenheimer Bodies Not Reportable 05/11/17 06:50 Sickle Cells Not Reportable 05/11/17 06:50 Target Cells Not Reportable 05/11/17 06:50 Tear Drop Cells Not Reportable 05/11/17 06:50 Ovalocytes 1+ 05/11/17 06:50 Helmet Cells Not Reportable 05/11/17 06:50 [place] Bodies Not Reportable 05/11/17 06:50 Olin Rings Not Reportable 05/11/17 06:50 Damián Cells Rare 05/11/17 06:50 Bite Cells Not Reportable 05/11/17 06:50 Crenated Cell Not Reportable 05/11/17 06:50 Elliptocytes Not Reportable 05/11/17 06:50 Acanthocytes (Spur) Not Reportable 05/11/17 06:50 Rouleaux Not Reportable 05/11/17 06:50 Hemoglobin C Crystals Not Reportable 05/11/17 06:50 Schistocytes Not Reportable 05/11/17 06:50 Malaria parasites Not Reportable 05/11/17 06:50 Herve Bodies Not Reportable 05/11/17 06:50 Hem Pathologist Commnt No 05/11/17 06:50 D-Dimer 8441.57 ng/mlDDU (0-234) H 05/04/17 Unknown POC ABG pH TNR 05/07/17 11:57 POC ABG pCO2 TNR 05/07/17 11:57 POC ABG pO2 TNR 05/07/17 11:57 POC ABG HCO3 TNR 05/07/17 11:57 POC ABG Total CO2 TNR 05/07/17 11:57 POC ABG O2 Sat TNR 05/07/17 11:57 POC ABG Base Excess TNR 05/07/17 11:57 FiO2 TNR 05/07/17 11:57 Sodium 141 mmol/L (137-145) 05/11/17 06:50 Potassium 3.4 mmol/L (3.6-5.0) L 05/11/17 06:50 Chloride 106.0 mmol/L (98-107) 05/11/17 06:50 Carbon Dioxide 22 mmol/L (22-30) 05/11/17 06:50 Anion Gap 16 mmol/L 05/11/17 06:50 BUN 50 mg/dL (7-17) H 05/11/17 06:50 Creatinine 2.8 mg/dL (0.7-1.2) H 05/11/17 06:50 Estimated GFR 21 ml/min 05/11/17 06:50 BUN/Creatinine Ratio 18 % 05/11/17 06:50 Glucose 131 mg/dL (65-100) H 05/11/17 06:50 POC Glucose 157 (70-105) H 05/11/17 11:45 Lactic Acid 0.40 mmol/L (0.7-2.0) L 05/04/17 Unknown Calcium 7.6 mg/dL (8.4-10.2) L 05/11/17 06:50 Ionized Calcium 3.5 mg/dL (4.8-5.6) L 05/05/17 17:45 Phosphorus 4.30 mg/dL (2.5-4.5) 05/11/17 06:50 Magnesium 2.20 mg/dL (1.7-2.3) 05/11/17 06:50 Total Bilirubin 0.20 mg/dL (0.1-1.2) 05/11/17 06:50 AST 10 units/L (5-40) 05/11/17 06:50 ALT < 5 units/L (7-56) L 05/11/17 06:50 Alkaline Phosphatase 25 units/L (35-129) L 05/11/17 06:50 Total Creatine Kinase 346 units/L (30-135) H 05/05/17 05:20 CK-MB (CK-2) 8.2 ng/mL (0.0-4.0) H 05/05/17 05:20 CK-MB (CK-2) Rel Index 2.3 (0-4) 05/05/17 05:20 Troponin T 0.027 ng/mL (0.00-0.029) 05/05/17 05:20 C-Reactive Protein 14.50 mg/dL (0.00-1.30) H 05/06/17 07:55 Total Protein 3.6 g/dL (6.3-8.2) L 05/11/17 06:50 Albumin 2.0 g/dL (3.9-5) L 05/11/17 06:50 Albumin/Globulin Ratio 1.3 % 05/11/17 06:50 Triglycerides 149 mg/dL (2-149) 05/04/17 18:55 Cholesterol 185 mg/dL (50-199) 05/04/17 18:55 LDL Cholesterol Direct 103 mg/dL (50-130) 05/04/17 18:55 HDL Cholesterol 53 mg/dL (40-59) 05/04/17 18:55 Cholesterol/HDL Ratio 3.49 % 05/04/17 18:55 TSH 1.780 mlU/mL (0.270-4.200) 05/04/17 18:39 Urine Color Carol (Yellow) 05/04/17 02:20 Urine Turbidity Clear (Clear) 05/04/17 02:20 Urine pH 5.0 (5.0-7.0) 05/04/17 02:20 Ur Specific [place] 1.018 (1.003-1.030) 05/04/17 02:20 Urine Protein 30 mg/dl mg/dL (Negative) 05/04/17 02:20 Urine Glucose (UA) Neg mg/dL (Negative) 05/04/17 02:20 Urine Ketones Tr mg/dL (Negative) 05/04/17 02:20 Urine Blood Lg (Negative) 05/04/17 02:20 Urine Nitrite Neg (Negative) 05/04/17 02:20 Urine Bilirubin Neg (Negative) 05/04/17 02:20 Urine Urobilinogen < 2.0 mg/dL (<2.0) 05/04/17 02:20 Ur Leukocyte Esterase Sm (Negative) 05/04/17 02:20 Urine WBC (Auto) 100.0 /HPF (0.0-6.0) H 05/04/17 02:20 Urine RBC (Auto) 44.0 /HPF (0.0-6.0) 05/04/17 02:20 U Epithel Cells (Auto) 2.0 /HPF (0-13.0) 05/04/17 02:20 Urine Bacteria (Auto) 1+ /HPF (Negative) 05/04/17 02:20 Urine Mucus Few /HPF 05/04/17 02:20 Urine Creatinine 28.0 mg/dL (0.1-20.0) H 05/05/17 Unknown Urine Sodium 129 mmol/L 05/05/17 Unknown Urine Potassium 3.67 mmol/L 05/05/17 Unknown Urine Chloride 115.6 mmolL (110-250) 05/05/17 Unknown Salicylates 0.3 mg/dL (2.8-20.0) L 05/04/17 18:39 Urine Opiates Screen Presumptive negative 05/04/17 02:20 Urine Methadone Screen Presumptive negative 05/04/17 02:20 Acetaminophen < 15.0 ug/mL (10.0-30.0) 05/04/17 18:39 Ur Barbiturates Screen Presumptive negative 05/04/17 02:20 Ur Phencyclidine Scrn Presumptive negative 05/04/17 02:20 Ur Amphetamines Screen Presumptive negative 05/04/17 02:20 U Benzodiazepines Scrn Presumptive negative 05/04/17 02:20 Urine Cocaine Screen Presumptive negative 05/04/17 02:20 U Marijuana (THC) Screen Presumptive negative 05/04/17 02:20 Drugs of Abuse Note Disclamer 05/04/17 02:20 Plasma/Serum Alcohol < 0.01 gm% (0-0.07) 05/04/17 18:39 Miscellaneous Test Flexitest 1 H 05/06/17 17:30
--- NOTE | 2017-05-11 14:28 | Vascular Lab Report ---
LOWER EXTREMITY VENOUS DUPLEX: REASON FOR EXAM: Elevated d-dimer. COMMENTS ON THE RIGHT: All veins visualized are freely compressible without evidence of internal echogenicity. Flow is spontaneous and phasic throughout. COMMENTS ON THE LEFT: All veins visualized are freely compressible without evidence of internal echogenicity. Flow is spontaneous and phasic throughout. IMPRESSION: No evidence of acute or chronic deep venous thrombosis in either lower extremity.
[2017-05-11] MEDS ORDERED: POTASSIUM CHLORIDE FEEDTUBE ONE (17:24)
[2017-05-11 18:21] LABS: Bacteria,Urine 1+ /HPF (Negative); Bilirubin,Urine NEG (Negative); Blood,Urine MOD (Negative); Ketones,Urine NEG (Negative); Leukocyte Esterase,Urine MOD (Negative); Mucus,Urine FEW /HPF; Nitrite,Urine NEG (Negative); Urobilinogen,Urine < 2.0 mg/dL (<2.0)
[2017-05-12] MEDS: PROVENTIL IH SCH ×2 (02:03→09:51)
[2017-05-12 05:11] LABS: Hematocrit 32.2 % (30.3-42.9); Hemoglobin 10.3 gm/dl (10.1-14.3); Mean Corpuscular HGB Conc 32 % (30-34); Mean Corpuscular Hemoglobin 29 pg (28-32); Mean Corpuscular Volume 90 fl (79-97); Platelet Count 308 K/mm3 (140-440); Red Blood Count 3.59 M/mm3 (3.65-5.03); Red Cell Distribution Width 17.1 % (13.2-15.2)
[2017-05-12 05:40] LABS: White Blood Count 23.1 K/mm3 (4.5-11.0)
[2017-05-12 05:45] LABS: Albumin 1.7 g/dL (3.9-5); Albumin/Globulin Ratio 1.1 %; Alkaline Phosphatase 25 units/L (35-129); Anion Gap 15 mmol/L; BUN/Creatinine Ratio 19; Bilirubin,Total < 0.20 mg/dL (0.1-1.2); Blood Urea Nitrogen 53 mg/dL (7-17); Calcium 6.9 mg/dL (8.4-10.2); Carbon Dioxide 22 mmol/L (22-30); Chloride 111.7 mmol/L (98-107); Glucose 102 mg/dL (65-100); Potassium 3.8 mmol/L (3.6-5.0); Sodium 145 mmol/L (137-145); Total Protein 3.3 g/dL (6.3-8.2)
[2017-05-12 05:52] LABS: Alanine Aminotransferase < 5 units/L (7-56)
[2017-05-12] MEDS: VANCOMYCIN PO PO SCH ×4 (06:06→23:26)
[2017-05-12] MEDS: FLAGYL 500 MG/100 ML 500 MG/100 ML BAG IV SCH ×4 (06:06→23:27)
[2017-05-12 06:40] LABS: Basophils % (Manual) 0 % (0.0-1.8); Blastocytes % (Manual) 0 %
[2017-05-12 06:41] LABS: Anisocytosis 1+; Diff Status Complete; Platelet Clumps Few; Platelet Estimate Consistent w Auto
[2017-05-12] MEDS: BROVANA NEBU IH SCH ×2 (09:48→21:04)
[2017-05-12] MEDS: DUONEB *Not for PRN Use IH SCH ×3 (09:49→21:04)
[2017-05-12] MEDS: PULMICORT IH SCH ×2 (09:49→21:18)
[2017-05-12] MEDS: NOVOLOG SUB-Q SCH ×4 (10:35→23:10)
[2017-05-12] MEDS: PEPCID PO SCH (10:36)
[2017-05-12] MEDS: DILAUDID IV PRN (10:36)
[2017-05-12] MEDS: ZOFRAN IV PRN (10:36)
[2017-05-12] MEDS: HEPARIN SUB-Q SCH ×2 (10:37→23:25)
--- NOTE | 2017-05-12 10:37 | Progress Note ---
Assessment and Plan Impression: * Acute kidney injury secondary to prerenal azotemia due to volume depletion secondary to GI loss - improved * Colitis * Sepsis * Metabolic acidosis,resolved - likely related to diarrhea; LA unremarkable * Hypokalemia * Hypernatremia * Hypocalcemia - corrected Ca 8.2 * Hypoalbuminemia * UTI Plan: * Renal function stable today * still with hypotension * give iv albumin, may need vasopressors and back to ICU if hypotension continues * Na rise noted * still uti on ua,give rocephin for UTI * replete k prn * Abx per ID * Replete lytes daily * Avoid potential nephrotoxins * maintain MAP>65 * Dose medications for renal function Subjective Date of service: 05/12/17 Principal diagnosis: Septic shock,C. diff colitis Interval history: resting well in bed today Objective - Exam Narrative Exam: General appearance: well-developed, well-nourished EENT: ATNC Neck: no JVD Respiratory: Present: Decreased Breath Sounds Cardiology: regular, S1S2 Gastrointestinal: hypoactive bowel sounds, no tenderness, distended Integumentary: no rash Neurologic: reflexes 2+ and symmetric Musculoskeletal: other (trace edema) Psychiatric: cooperative - Vital Signs Vital signs: Vital Signs - 12hr 05/12/17 05/12/17 05/12/17 00:49 05:46 07:44 Temperature 97.4 F L 98.2 F 97.4 F L Pulse Rate 84 75 76 Pulse Rate [ Anterior Bilateral Throughout] Respiratory 20 20 16 Rate Respiratory Rate [Anterior Bilateral Throughout] Blood Pressure 63/41 75/42 130/109 O2 Sat by Pulse 92 99 Oximetry 05/12/17 05/12/17 09:48 09:49 Temperature Pulse Rate Pulse Rate [ 86 Anterior Bilateral Throughout] Respiratory Rate Respiratory 18 Rate [Anterior Bilateral Throughout] Blood Pressure O2 Sat by Pulse 98 Oximetry - Lab 05/12/17 05:00 05/12/17 05:00 Most recent lab results Calcium 6.9 mg/dL (8.4-10.2) L 05/12/17 05:00 Phosphorus 4.10 mg/dL (2.5-4.5) 05/12/17 05:00 Magnesium 2.00 mg/dL (1.7-2.3) 05/12/17 05:00 Urine Creatinine 28.0 mg/dL (0.1-20.0) H 05/05/17 Unknown Urine Sodium 129 mmol/L 05/05/17 Unknown
[2017-05-12] MEDS ORDERED: NACL 0.45% 1000 ML 1,000 ML IV SCH (11:00)
--- NOTE | 2017-05-12 11:01 | Progress Note ---
Assessment and Plan Assessment: 1) Shock - multifactorial (hypovolemic/dehydration + septic): still leukocytosis. Septic component etiology C diff colitis. CRP=14. Procal=2.4. 2) C diff Colitis: severe-recently exposed to broad spectrum abx. CT abd showed colitis. 3) UTI-mild ? reactive from colitis versus real 4) LUIS 6) COPD Plan: -continue PO vanco at 250 mg QID and IV flagyl QID day 8 of 14 -started on ceftriaxone per renal for UTI - please consider very short course 3 day in view of severe Cdiff -monitor leukocytosis Thank you Dr Mejia for your consultation, will follow up with you. Winifred Guerrero MD Infectious Diseases Specialist [facility] M [phone] O [phone] Subjective Date of service: 05/12/17 Principal diagnosis: Septic shock,C. diff colitis Interval history: Feels better, talking Microbiology: Blood cultures: 05/05 neg Urine cultures: 05/05 neg Stool cultures: C diff 05/04 POSITIVE Current Antimicrobials: Vancomycin PO 05/05 Metronidazole 05/05 Ceftriaxone 05/11 Previous Antimicrobials: Zosyn Levaquin Vancomycin PO Metronidazole Vanco rectal 05/07 Objective - Exam Narrative Exam: General appearance: Alert in NAD, conversant Eyes: anicteric sclerae, moist conjunctivae; no lid-lag; PERRLA HENT: Atraumatic; oropharynx clear vey dry oral mucosa Neck: Trachea midline; supple, no thyromegaly or lymphadenopathy Lungs: CTA CV: rrr Abdomen: Soft, diffuse tenderness Extremities: No peripheral edema or extremity lymphadenopathy Skin: Normal temperature, turgor and texture; no rash, ulcers or subcutaneous nodules Psych: Appropriate affect, alert and oriented to person, place and time. Neuro: alert and oriented x 3. Moving all extermities Lines: right SC TLC - Constitutional Vitals: Vital Signs Temp Pulse Resp BP Pulse Ox 97.4 F L 85 20 130/109 98 05/12/17 07:44 05/12/17 10:00 05/12/17 10:00 05/12/17 07:44 05/12/17 09:48 Temperature -Last 24 Hours Temperature 97.4 F Temperature 98.2 F Temperature 97.4 F Temperature 98.2 F Temperature 98.0 F Temperature 97.6 F - Labs CBC & Chem 7: 05/12/17 05:00 05/12/17 05:00 Labs: Abnormal lab results 05/11/17 05/11/17 05/11/17 Range/Units 09:33 11:45 15:46 WBC (4.5-11.0) K/mm3 RBC (3.65-5.03) M/mm3 RDW (13.2-15.2) % Seg Neuts % (Manual) (40.0-70.0) % Lymphocytes % (Manual) (13.4-35.0) % Seg Neutrophils # Man (1.8-7.7) K/mm3 Lymphocytes # (Manual) (1.2-5.4) K/mm3 Chloride (98-107) mmol/L BUN (7-17) mg/dL Creatinine (0.7-1.2) mg/dL Glucose (65-100) mg/dL POC Glucose 140 H 157 H 137 H (70-105) Calcium (8.4-10.2) mg/dL ALT (7-56) units/L Alkaline Phosphatase (35-129) units/L Total Protein (6.3-8.2) g/dL Albumin (3.9-5) g/dL Urine WBC (Auto) (0.0-6.0) /HPF 05/11/17 05/11/17 05/12/17 Range/Units 17:50 20:58 05:00 WBC 23.1 H (4.5-11.0) K/mm3 RBC 3.59 L (3.65-5.03) M/mm3 RDW 17.1 H (13.2-15.2) % Seg Neuts % (Manual) 94.0 H (40.0-70.0) % Lymphocytes % (Manual) 0 L (13.4-35.0) % Seg Neutrophils # Man 21.7 H (1.8-7.7) K/mm3 Lymphocytes # (Manual) 0.0 L (1.2-5.4) K/mm3 Chloride (98-107) mmol/L BUN (7-17) mg/dL Creatinine (0.7-1.2) mg/dL Glucose (65-100) mg/dL POC Glucose 155 H (70-105) Calcium (8.4-10.2) mg/dL ALT (7-56) units/L Alkaline Phosphatase (35-129) units/L Total Protein (6.3-8.2) g/dL Albumin (3.9-5) g/dL Urine WBC (Auto) 27.0 H (0.0-6.0) /HPF 05/12/17 05/12/17 Range/Units 05:00 08:28 WBC (4.5-11.0) K/mm3 RBC (3.65-5.03) M/mm3 RDW (13.2-15.2) % Seg Neuts % (Manual) (40.0-70.0) % Lymphocytes % (Manual) (13.4-35.0) % Seg Neutrophils # Man (1.8-7.7) K/mm3 Lymphocytes # (Manual) (1.2-5.4) K/mm3 Chloride 111.7 H (98-107) mmol/L BUN 53 H (7-17) mg/dL Creatinine 2.8 H (0.7-1.2) mg/dL Glucose 102 H (65-100) mg/dL POC Glucose 130 H (70-105) Calcium 6.9 L (8.4-10.2) mg/dL ALT < 5 L (7-56) units/L Alkaline Phosphatase 25 L (35-129) units/L Total Protein 3.3 L (6.3-8.2) g/dL Albumin 1.7 L (3.9-5) g/dL Urine WBC (Auto) (0.0-6.0) /HPF
--- NOTE | 2017-05-12 11:21 | Progress Note ---
Assessment and Plan Assessment and plan: --Severe sepsis; secondary to C. difficile colitis, supportive care -- C. difficile colitis; IV fluids, oral vancomycin IV Flagyl. Contact isolation, IV fluids --Leukocytosis; partly secondary to C. difficile colitis as well as sepsis, closely monitor --Hypokalemia; corrected --Hypovolemic shock, off pressors, continue supportive care --Acute kidney injury secondary to vasomotor nephropathy, due to fluid depletion Gently hydration and closely monitor renal function, trending down --Metabolic acidosis; aggressive IV hydration --History of COPD with exacerbation; continue current nebulizers and IV antibiotics --Pulmonary hypertension on echo --Severe hypoalbuminemia/protein Malnutrition; nutritional supplements and supportive care Nutrition consult if needed --DVT prophylaxis; heparin renal dose Closely monitor the patient and adjust management as needed Plan of care discussed with the patient and her nurse Possible discharge in 1-2 days if stable History Interval history: Patient seen and examined, medical records reviewed No events reported by the nursing staff Patient reports her diarrhea is significantly improved On contact isolation Hospitalist Physical - Constitutional Vitals: Temp Pulse Resp BP Pulse Ox 97.4 F L 85 20 130/109 98 05/12/17 07:44 05/12/17 10:00 05/12/17 10:00 05/12/17 07:44 05/12/17 09:48 General appearance: Present: no acute distress, well-nourished, other (on BIPAP) - EENT Eyes: Present: PERRL, EOM intact - Neck Neck: Present: supple, normal ROM - Respiratory Respiratory effort: normal Respiratory: bilateral: diminished, negative: rales, rhonchi, wheezing - Cardiovascular Rhythm: regular Heart Sounds: Present: S1 & S2 - Extremities Extremities: no ischemia, No edema - Abdominal General gastrointestinal: soft, non-tender, non-distended, normal bowel sounds - Integumentary Integumentary: Present: clear, warm - Psychiatric Psychiatric: appropriate mood/affect, cooperative - Neurologic Neurologic: CNII-XII intact, moves all extremities Results - Labs CBC & Chem 7: 05/12/17 05:00 05/12/17 05:00 Labs: Laboratory Last Values WBC 23.1 K/mm3 (4.5-11.0) H 05/12/17 05:00 RBC 3.59 M/mm3 (3.65-5.03) L 05/12/17 05:00 Hgb 10.3 gm/dl (10.1-14.3) 05/12/17 05:00 Hct 32.2 % (30.3-42.9) 05/12/17 05:00 MCV 90 fl (79-97) 05/12/17 05:00 MCH 29 pg (28-32) 05/12/17 05:00 MCHC 32 % (30-34) 05/12/17 05:00 RDW 17.1 % (13.2-15.2) H 05/12/17 05:00 Plt Count 308 K/mm3 (140-440) 05/12/17 05:00 Add Manual Diff Complete 05/12/17 05:00 Total Counted 100 05/12/17 05:00 Seg Neutrophils % Knitted Cloth Examiner 05/11/17 06:50 Seg Neuts % (Manual) 94.0 % (40.0-70.0) H 05/12/17 05:00 Band Neutrophils % 0 % 05/12/17 05:00 Lymphocytes % (Manual) 0 % (13.4-35.0) L 05/12/17 05:00 Reactive Lymphs % (Man) 0 % 05/12/17 05:00 Monocytes % (Manual) 2.0 % (0.0-7.3) 05/12/17 05:00 Eosinophils % (Manual) 1.0 % (0.0-4.3) 05/12/17 05:00 Basophils % (Manual) 0 % (0.0-1.8) 05/12/17 05:00 Metamyelocytes % 0 % 05/12/17 05:00 Myelocytes % 3.0 % 05/12/17 05:00 Promyelocytes % 0 % 05/12/17 05:00 Blast Cells % 0 % 05/12/17 05:00 Nucleated RBC % Not Reportable 05/12/17 05:00 Seg Neutrophils # Man 21.7 K/mm3 (1.8-7.7) H 05/12/17 05:00 Band Neutrophils # 0.0 K/mm3 05/12/17 05:00 Lymphocytes # (Manual) 0.0 K/mm3 (1.2-5.4) L 05/12/17 05:00 Abs React Lymphs (Man) 0.0 K/mm3 05/12/17 05:00 Monocytes # (Manual) 0.5 K/mm3 (0.0-0.8) 05/12/17 05:00 Eosinophils # (Manual) 0.2 K/mm3 (0.0-0.4) 05/12/17 05:00 Basophils # (Manual) 0.0 K/mm3 (0.0-0.1) 05/12/17 05:00 Metamyelocytes # 0.0 K/mm3 05/12/17 05:00 Myelocytes # 0.7 K/mm3 05/12/17 05:00 Promyelocytes # 0.0 K/mm3 05/12/17 05:00 Blast Cells # 0.0 K/mm3 05/12/17 05:00 WBC Morphology Not Reportable 05/12/17 05:00 Hypersegmented Neuts Not Reportable 05/12/17 05:00 Hyposegmented Neuts Not Reportable 05/12/17 05:00 Hypogranular Neuts Not Reportable 05/12/17 05:00 Smudge Cells Not Reportable 05/12/17 05:00 Toxic Granulation Not Reportable 05/12/17 05:00 Toxic Vacuolation Not Reportable 05/12/17 05:00 Dohle Bodies Not Reportable 05/12/17 05:00 Pelger-Huet Anomaly Not Reportable 05/12/17 05:00 Neisha Rods Not Reportable 05/12/17 05:00 Platelet Estimate Consistent w auto 05/12/17 05:00 Clumped Platelets Few 05/12/17 05:00 Plt Clumps, EDTA Not Reportable 05/12/17 05:00 Large Platelets Not Reportable 05/12/17 05:00 Giant Platelets Not Reportable 05/12/17 05:00 Platelet Satelliting Not Reportable 05/12/17 05:00 Plt Morphology Comment Not Reportable 05/12/17 05:00 RBC Morphology Not Reportable 05/12/17 05:00 Dimorphic RBCs Not Reportable 05/12/17 05:00 Polychromasia Not Reportable 05/12/17 05:00 Hypochromasia Not Reportable 05/12/17 05:00 Poikilocytosis Not Reportable 05/12/17 05:00 Anisocytosis 1+ 05/12/17 05:00 Microcytosis Not Reportable 05/12/17 05:00 Macrocytosis Not Reportable 05/12/17 05:00 Spherocytes Not Reportable 05/12/17 05:00 Pappenheimer Bodies Not Reportable 05/12/17 05:00 Sickle Cells Not Reportable 05/12/17 05:00 Target Cells Not Reportable 05/12/17 05:00 Tear Drop Cells Not Reportable 05/12/17 05:00 Ovalocytes Not Reportable 05/12/17 05:00 Helmet Cells Not Reportable 05/12/17 05:00 [place] Bodies Not Reportable 05/12/17 05:00 [place] Rings Not Reportable 05/12/17 05:00 [place] Cells Not Reportable 05/12/17 05:00 Bite Cells Not Reportable 05/12/17 05:00 Crenated Cell Not Reportable 05/12/17 05:00 Elliptocytes Not Reportable 05/12/17 05:00 Acanthocytes (Spur) Not Reportable 05/12/17 05:00 Rouleaux Not Reportable 05/12/17 05:00 Hemoglobin C Crystals Not Reportable 05/12/17 05:00 Schistocytes Not Reportable 05/12/17 05:00 Malaria parasites Not Reportable 05/12/17 05:00 Herve Bodies Not Reportable 05/12/17 05:00 Hem Pathologist Commnt No 05/12/17 05:00 D-Dimer 8441.57 ng/mlDDU (0-234) H 05/04/17 Unknown POC ABG pH TNR 05/07/17 11:57 POC ABG pCO2 TNR 05/07/17 11:57 POC ABG pO2 TNR 05/07/17 11:57 POC ABG HCO3 TNR 05/07/17 11:57 POC ABG Total CO2 TNR 05/07/17 11:57 POC ABG O2 Sat TNR 05/07/17 11:57 POC ABG Base Excess TNR 05/07/17 11:57 FiO2 TNR 05/07/17 11:57 Sodium 145 mmol/L (137-145) 05/12/17 05:00 Potassium 3.8 mmol/L (3.6-5.0) 05/12/17 05:00 Chloride 111.7 mmol/L (98-107) H 05/12/17 05:00 Carbon Dioxide 22 mmol/L (22-30) 05/12/17 05:00 Anion Gap 15 mmol/L 05/12/17 05:00 BUN 53 mg/dL (7-17) H 05/12/17 05:00 Creatinine 2.8 mg/dL (0.7-1.2) H 05/12/17 05:00 Estimated GFR 21 ml/min 05/12/17 05:00 BUN/Creatinine Ratio 19 % 05/12/17 05:00 Glucose 102 mg/dL (65-100) H 05/12/17 05:00 POC Glucose 130 (70-105) H 05/12/17 08:28 Lactic Acid 0.40 mmol/L (0.7-2.0) L 05/04/17 Unknown Calcium 6.9 mg/dL (8.4-10.2) L 05/12/17 05:00 Ionized Calcium 3.5 mg/dL (4.8-5.6) L 05/05/17 17:45 Phosphorus 4.10 mg/dL (2.5-4.5) 05/12/17 05:00 Magnesium 2.00 mg/dL (1.7-2.3) 05/12/17 05:00 Total Bilirubin < 0.20 mg/dL (0.1-1.2) 05/12/17 05:00 AST 25 units/L (5-40) 05/12/17 05:00 ALT < 5 units/L (7-56) L 05/12/17 05:00 Alkaline Phosphatase 25 units/L (35-129) L 05/12/17 05:00 Total Creatine Kinase 346 units/L (30-135) H 05/05/17 05:20 CK-MB (CK-2) 8.2 ng/mL (0.0-4.0) H 05/05/17 05:20 CK-MB (CK-2) Rel Index 2.3 (0-4) 05/05/17 05:20 Troponin T 0.027 ng/mL (0.00-0.029) 05/05/17 05:20 C-Reactive Protein 14.50 mg/dL (0.00-1.30) H 05/06/17 07:55 Total Protein 3.3 g/dL (6.3-8.2) L 05/12/17 05:00 Albumin 1.7 g/dL (3.9-5) L 05/12/17 05:00 Albumin/Globulin Ratio 1.1 % 05/12/17 05:00 Triglycerides 149 mg/dL (2-149) 05/04/17 18:55 Cholesterol 185 mg/dL (50-199) 05/04/17 18:55 LDL Cholesterol Direct 103 mg/dL (50-130) 05/04/17 18:55 HDL Cholesterol 53 mg/dL (40-59) 05/04/17 18:55 Cholesterol/HDL Ratio 3.49 % 05/04/17 18:55 TSH 1.780 mlU/mL (0.270-4.200) 05/04/17 18:39 Urine Color [place] (Yellow) 05/11/17 17:50 Urine Turbidity Clear (Clear) 05/11/17 17:50 Urine pH 5.0 (5.0-7.0) 05/11/17 17:50 Ur Specific [place] 1.016 (1.003-1.030) 05/11/17 17:50 Urine Protein 100 mg/dl mg/dL (Negative) 05/11/17 17:50 Urine Glucose (UA) Neg mg/dL (Negative) 05/11/17 17:50 Urine Ketones Neg mg/dL (Negative) 05/11/17 17:50 Urine Blood Mod (Negative) 05/11/17 17:50 Urine Nitrite Neg (Negative) 05/11/17 17:50 Urine Bilirubin Neg (Negative) 05/11/17 17:50 Urine Urobilinogen < 2.0 mg/dL (<2.0) 05/11/17 17:50 Ur Leukocyte Esterase Mod (Negative) 05/11/17 17:50 Urine WBC (Auto) 27.0 /HPF (0.0-6.0) H 05/11/17 17:50 Urine RBC (Auto) 15.0 /HPF (0.0-6.0) 05/11/17 17:50 U Epithel Cells (Auto) < 1.0 /HPF (0-13.0) 05/11/17 17:50 Urine Bacteria (Auto) 1+ /HPF (Negative) 05/11/17 17:50 Amorphous Crystals Few 05/11/17 17:50 Urine Mucus Few /HPF 05/11/17 17:50 Urine Creatinine 28.0 mg/dL (0.1-20.0) H 05/05/17 Unknown Urine Sodium 129 mmol/L 05/05/17 Unknown Urine Potassium 3.67 mmol/L 05/05/17 Unknown Urine Chloride 115.6 mmolL (110-250) 05/05/17 Unknown Salicylates 0.3 mg/dL (2.8-20.0) L 05/04/17 18:39 Urine Opiates Screen Presumptive negative 05/04/17 02:20 Urine Methadone Screen Presumptive negative 05/04/17 02:20 Acetaminophen < 15.0 ug/mL (10.0-30.0) 05/04/17 18:39 Ur Barbiturates Screen Presumptive negative 05/04/17 02:20 Ur Phencyclidine Scrn Presumptive negative 05/04/17 02:20 Ur Amphetamines Screen Presumptive negative 05/04/17 02:20 U Benzodiazepines Scrn Presumptive negative 05/04/17 02:20 Urine Cocaine Screen Presumptive negative 05/04/17 02:20 U Marijuana (THC) Screen Presumptive negative 05/04/17 02:20 Drugs of Abuse Note Disclamer 05/04/17 02:20 Plasma/Serum Alcohol < 0.01 gm% (0-0.07) 05/04/17 18:39 Miscellaneous Test Flexitest 1 H 05/06/17 17:30
[2017-05-12] MEDS: NACL 0.9% 1000 ML 1,000 ML IV SCH ×2 (14:27→19:59)
[2017-05-12] MEDS: cefTRIAXone 1 GM in NACL 0.9% 20 ML IV SCH (14:27)
[2017-05-12] MEDS: ALBURX 25% (ALBUMIN) IV SCH ×2 (14:39→23:44)
[2017-05-13] MEDS: FLAGYL 500 MG/100 ML 500 MG/100 ML BAG IV SCH ×4 (06:42→23:30)
[2017-05-13] MEDS: VANCOMYCIN PO PO SCH ×4 (06:43→23:30)
[2017-05-13 07:13] LABS: Hematocrit 28.9 % (30.3-42.9); Hemoglobin 9.2 gm/dl (10.1-14.3); Mean Corpuscular HGB Conc 32 % (30-34); Mean Corpuscular Hemoglobin 29 pg (28-32); Mean Corpuscular Volume 91 fl (79-97); Platelet Count 317 K/mm3 (140-440); Red Blood Count 3.17 M/mm3 (3.65-5.03); Red Cell Distribution Width 17.7 % (13.2-15.2)
[2017-05-13 07:31] LABS: Calcium 7.4 mg/dL (8.4-10.2); Potassium 3.3 mmol/L (3.6-5.0)
[2017-05-13 07:33] LABS: White Blood Count 20.8 K/mm3 (4.5-11.0)
[2017-05-13] MEDS: NOVOLOG SUB-Q SCH ×4 (07:36→23:32)
[2017-05-13 08:39] LABS: Basophils % (Manual) 0 % (0.0-1.8); Blastocytes % (Manual) 0 %
[2017-05-13 08:40] LABS: Acanthocytes 1+; Anisocytosis 1+; Poikilocytosis 1+
[2017-05-13 08:41] LABS: Diff Status Complete; Large Platelets Rare; Platelet Estimate Cons
[2017-05-13] MEDS ORDERED: NACL 0.9% 500 ML 500 ML IV ONE (09:30)
[2017-05-13] MEDS ORDERED: NACL 0.45% 1000 ML 1,000 ML with KCL 20 MEQ IV SCH (09:32)
--- NOTE | 2017-05-13 09:34 | Progress Note ---
Assessment and Plan Impression: * Acute kidney injury secondary to prerenal azotemia due to volume depletion secondary to GI loss - improved * Colitis * Sepsis * Metabolic acidosis,resolved - likely related to diarrhea; LA unremarkable * Hypokalemia * Hypernatremia * Hypocalcemia - corrected Ca 8.2 * Hypoalbuminemia * UTI Plan: * Renal function stable today * still with hypotension * give albumin, may need vasopressors and back to ICU if hypotension continues * Na better today * rocephin for UTI * replete k prn * Abx per ID * Replete lytes daily * Avoid potential nephrotoxins * maintain MAP>65 * Dose medications for renal function Subjective Date of service: 05/13/17 Principal diagnosis: Septic shock,C. diff colitis Interval history: resting well in bed today Objective - Exam Narrative Exam: General appearance: well-developed, well-nourished EENT: ATNC Neck: no JVD Respiratory: Present: Decreased Breath Sounds Cardiology: regular, S1S2 Gastrointestinal: hypoactive bowel sounds, no tenderness, distended Integumentary: no rash Neurologic: reflexes 2+ and symmetric Musculoskeletal: other (trace edema) Psychiatric: cooperative - Vital Signs Vital signs: Vital Signs - 12hr 05/13/17 05/13/17 00:32 04:14 Temperature 97.2 F L 97.5 F L Pulse Rate 86 84 Respiratory 20 20 Rate Blood Pressure 98/47 91/45 O2 Sat by Pulse 100 100 Oximetry - Lab 05/13/17 06:54 05/13/17 06:54 Most recent lab results Calcium 7.4 mg/dL (8.4-10.2) L 05/13/17 06:54 Phosphorus 4.10 mg/dL (2.5-4.5) 05/12/17 05:00 Magnesium 2.00 mg/dL (1.7-2.3) 05/12/17 05:00 Urine Creatinine 28.0 mg/dL (0.1-20.0) H 05/05/17 Unknown Urine Sodium 129 mmol/L 05/05/17 Unknown
[2017-05-13] MEDS ORDERED: K-DUR PO ONE (10:30)
[2017-05-13] MEDS: HEPARIN SUB-Q SCH ×2 (10:43→23:30)
[2017-05-13] MEDS: cefTRIAXone 1 GM in NACL 0.9% 20 ML IV SCH (10:50)
[2017-05-13] MEDS: BROVANA NEBU IH SCH ×2 (12:34→21:05)
[2017-05-13] MEDS: PULMICORT IH SCH ×2 (12:36→21:05)
[2017-05-13] MEDS: DUONEB *Not for PRN Use IH SCH ×3 (12:36→21:04)
[2017-05-13] MEDS: PEPCID PO SCH (13:02)
[2017-05-13] MEDS: ALBURX 25% (ALBUMIN) IV SCH ×2 (13:08→23:31)
--- NOTE | 2017-05-13 13:32 | Progress Note ---
Assessment and Plan Assessment: 1) Shock - multifactorial (hypovolemic/dehydration + septic): shock resolved. still leukocytosis. Septic component etiology C diff colitis. CRP=14. Procal= 2.4. 2) C diff Colitis: severe-recently exposed to broad spectrum abx. CT abd showed colitis. 3) UTI-mild ? reactive from colitis versus real 4) LUIS 6) COPD Plan: -continue PO vanco at 250 mg QID and IV flagyl QID day 9 of 14 -ceftriaxone per renal for UTI day 2 of 3 -monitor leukocytosis Thank you Dr Mejia for your consultation, will follow up with you. Winifred Guerrero MD Infectious Diseases Specialist [facility] [phone] Subjective Date of service: 05/13/17 Principal diagnosis: Septic shock,C. diff colitis Interval history: Feels sick c/o body aches Microbiology: Blood cultures: 05/05 neg Urine cultures: 05/05 neg Stool cultures: C diff 05/04 POSITIVE Current Antimicrobials: Vancomycin PO 05/05 Metronidazole 05/05 Ceftriaxone 05/11 Previous Antimicrobials: Zosyn Levaquin Vancomycin PO Metronidazole Vanco rectal 05/07 Objective - Exam Narrative Exam: General appearance: Alert in NAD, conversant Eyes: anicteric sclerae, moist conjunctivae; no lid-lag; PERRLA HENT: Atraumatic; oropharynx clear vey dry oral mucosa Neck: Trachea midline; supple, no thyromegaly or lymphadenopathy Lungs: CTA CV: rrr Abdomen: Soft, diffuse tenderness Extremities: No peripheral edema or extremity lymphadenopathy Skin: Normal temperature, turgor and texture; no rash, ulcers or subcutaneous nodules Psych: Appropriate affect, alert and oriented to person, place and time. Neuro: alert and oriented x 3. Moving all extermities Lines: right SC TLC - Constitutional Vitals: Vital Signs Temp Pulse Resp BP Pulse Ox 97.5 F L 84 20 91/45 100 05/13/17 04:14 05/13/17 04:14 05/13/17 04:14 05/13/17 04:14 05/13/17 04:14 Temperature -Last 24 Hours Temperature 97.5 F Temperature 97.2 F Temperature 97.6 F - Labs CBC & Chem 7: 05/13/17 06:54 05/13/17 06:54 Labs: Abnormal lab results 05/12/17 05/13/17 05/13/17 Range/Units 22:20 06:54 06:54 WBC 20.8 H (4.5-11.0) K/mm3 RBC 3.17 L (3.65-5.03) M/mm3 Hgb 9.2 L (10.1-14.3) gm/dl Hct 28.9 L (30.3-42.9) % RDW 17.7 H (13.2-15.2) % Seg Neuts % (Manual) 93.0 H (40.0-70.0) % Lymphocytes % (Manual) 1.0 L (13.4-35.0) % Seg Neutrophils # Man 19.3 H (1.8-7.7) K/mm3 Lymphocytes # (Manual) 0.2 L (1.2-5.4) K/mm3 Eosinophils # (Manual) 0.6 H (0.0-0.4) K/mm3 Potassium 3.3 L (3.6-5.0) mmol/L Chloride 110.0 H (98-107) mmol/L Carbon Dioxide 20 L (22-30) mmol/L BUN 48 H (7-17) mg/dL Creatinine 2.8 H (0.7-1.2) mg/dL Glucose 119 H (65-100) mg/dL POC Glucose 179 H (70-105) Calcium 7.4 L (8.4-10.2) mg/dL
[2017-05-13] MEDS: NS 0.45/KCL 20MEQ 20 MEQ/1,000 ML BAG IV SCH (16:12)
--- NOTE | 2017-05-13 16:30 | Progress Note ---
Assessment and Plan Assessment and plan: --Severe sepsis; secondary to C. difficile colitis, supportive care IV fluids, oral vancomycin, IV Flagyl, contact isolation --Leukocytosis; partly secondary to C. difficile colitis as well as sepsis, closely monitor --UTI; follow cultures, empiric antibiotics for 3 days --Hypokalemia; replace per protocol --Hypovolemic shock, off pressors, continue supportive care --Acute kidney injury secondary to vasomotor nephropathy, due to fluid depletion Gently hydration and closely monitor renal function, --Metabolic acidosis; aggressive IV hydration --History of COPD with exacerbation; continue current nebulizers and IV antibiotics --Pulmonary hypertension on echo --Severe hypoalbuminemia/protein Malnutrition; nutritional supplements and supportive care --DVT prophylaxis; heparin renal dose Closely monitor the patient and adjust management as needed Plan of care discussed with the patient and her nurse JONATAN Castillo, physical therapy Patient already has home oxygen Possible discharge home tomorrow if stable History Interval history: Patient seen and examined Medical records reviewed Patient feels better, C. difficile colitis on contact isolation Receiving vancomycin and Flagyl Diarrhea significantly improved, 2 bowel movements since morning Hospitalist Physical - Constitutional Vitals: Temp Pulse Resp BP Pulse Ox 97.5 F L 84 20 91/45 100 05/13/17 04:14 05/13/17 04:14 05/13/17 04:14 05/13/17 04:14 05/13/17 04:14 General appearance: Present: no acute distress, well-nourished, other (on BIPAP) - EENT Eyes: Present: PERRL, EOM intact - Neck Neck: Present: supple, normal ROM - Respiratory Respiratory effort: normal Respiratory: negative: diminished, rales, rhonchi - Cardiovascular Rhythm: regular Heart Sounds: Present: S1 & S2 - Extremities Extremities: no ischemia, normal temperature Extremity abnormal: edema - Abdominal General gastrointestinal: soft, non-tender, non-distended, normal bowel sounds - Integumentary Integumentary: Present: clear, warm - Psychiatric Psychiatric: appropriate mood/affect, cooperative - Neurologic Neurologic: CNII-XII intact, moves all extremities Results - Labs CBC & Chem 7: 05/13/17 06:54 05/13/17 06:54 Labs: Laboratory Last Values WBC 20.8 K/mm3 (4.5-11.0) H 05/13/17 06:54 RBC 3.17 M/mm3 (3.65-5.03) L 05/13/17 06:54 Hgb 9.2 gm/dl (10.1-14.3) L 05/13/17 06:54 Hct 28.9 % (30.3-42.9) L 05/13/17 06:54 MCV 91 fl (79-97) 05/13/17 06:54 MCH 29 pg (28-32) 05/13/17 06:54 MCHC 32 % (30-34) 05/13/17 06:54 RDW 17.7 % (13.2-15.2) H 05/13/17 06:54 Plt Count 317 K/mm3 (140-440) 05/13/17 06:54 Add Manual Diff Complete 05/13/17 06:54 Total Counted 100 05/13/17 06:54 Seg Neutrophils % Fiber Locking Supervisor 05/11/17 06:50 Seg Neuts % (Manual) 93.0 % (40.0-70.0) H 05/13/17 06:54 Band Neutrophils % 0 % 05/13/17 06:54 Lymphocytes % (Manual) 1.0 % (13.4-35.0) L 05/13/17 06:54 Reactive Lymphs % (Man) 0 % 05/13/17 06:54 Monocytes % (Manual) 3.0 % (0.0-7.3) 05/13/17 06:54 Eosinophils % (Manual) 3.0 % (0.0-4.3) 05/13/17 06:54 Basophils % (Manual) 0 % (0.0-1.8) 05/13/17 06:54 Metamyelocytes % 0 % 05/13/17 06:54 Myelocytes % 0 % 05/13/17 06:54 Promyelocytes % 0 % 05/13/17 06:54 Blast Cells % 0 % 05/13/17 06:54 Nucleated RBC % Not Reportable 05/13/17 06:54 Seg Neutrophils # Man 19.3 K/mm3 (1.8-7.7) H 05/13/17 06:54 Band Neutrophils # 0.0 K/mm3 05/13/17 06:54 Lymphocytes # (Manual) 0.2 K/mm3 (1.2-5.4) L 05/13/17 06:54 Abs React Lymphs (Man) 0.0 K/mm3 05/13/17 06:54 Monocytes # (Manual) 0.6 K/mm3 (0.0-0.8) 05/13/17 06:54 Eosinophils # (Manual) 0.6 K/mm3 (0.0-0.4) H 05/13/17 06:54 Basophils # (Manual) 0.0 K/mm3 (0.0-0.1) 05/13/17 06:54 Metamyelocytes # 0.0 K/mm3 05/13/17 06:54 Myelocytes # 0.0 K/mm3 05/13/17 06:54 Promyelocytes # 0.0 K/mm3 05/13/17 06:54 Blast Cells # 0.0 K/mm3 05/13/17 06:54 WBC Morphology Not Reportable 05/13/17 06:54 Hypersegmented Neuts Not Reportable 05/13/17 06:54 Hyposegmented Neuts Not Reportable 05/13/17 06:54 Hypogranular Neuts Not Reportable 05/13/17 06:54 Smudge Cells Not Reportable 05/13/17 06:54 Toxic Granulation Not Reportable 05/13/17 06:54 Toxic Vacuolation Not Reportable 05/13/17 06:54 Dohle Bodies Not Reportable 05/13/17 06:54 Pelger-Huet Anomaly Not Reportable 05/13/17 06:54 Neisha Rods Not Reportable 05/13/17 06:54 Platelet Estimate Cons 05/13/17 06:54 Clumped Platelets Not Reportable 05/13/17 06:54 Plt Clumps, EDTA Not Reportable 05/13/17 06:54 Large Platelets Rare 05/13/17 06:54 Giant Platelets Not Reportable 05/13/17 06:54 Platelet Satelliting Not Reportable 05/13/17 06:54 Plt Morphology Comment Not Reportable 05/13/17 06:54 RBC Morphology Not Reportable 05/13/17 06:54 Dimorphic RBCs Not Reportable 05/13/17 06:54 Polychromasia Not Reportable 05/13/17 06:54 Hypochromasia Not Reportable 05/13/17 06:54 Poikilocytosis 1+ 05/13/17 06:54 Anisocytosis 1+ 11/21/17 06:54 Microcytosis Not Reportable 05/13/17 06:54 Macrocytosis Not Reportable 05/13/17 06:54 Spherocytes Not Reportable 05/13/17 06:54 Pappenheimer Bodies Not Reportable 05/13/17 06:54 Sickle Cells Not Reportable 05/13/17 06:54 Target Cells Not Reportable 05/13/17 06:54 Tear Drop Cells Not Reportable 05/13/17 06:54 Ovalocytes Not Reportable 05/13/17 06:54 Helmet Cells Not Reportable 05/13/17 06:54 Frank[place] Bodies Not Reportable 05/13/17 06:54 [place] Rings Not Reportable 05/13/17 06:54 [place] Cells Not Reportable 05/13/17 06:54 Bite Cells Not Reportable 05/13/17 06:54 Crenated Cell Not Reportable 05/13/17 06:54 Elliptocytes Not Reportable 05/13/17 06:54 Acanthocytes (Spur) 1+ 05/13/17 06:54 Rouleaux Not Reportable 05/13/17 06:54 Hemoglobin C Crystals Not Reportable 05/13/17 06:54 Schistocytes Not Reportable 05/13/17 06:54 Malaria parasites Not Reportable 05/13/17 06:54 Herve Bodies Not Reportable 05/13/17 06:54 Hem Pathologist Commnt No 05/13/17 06:54 D-Dimer 8441.57 ng/mlDDU (0-234) H 05/04/17 Unknown POC ABG pH TNR 05/07/17 11:57 POC ABG pCO2 TNR 05/07/17 11:57 POC ABG pO2 TNR 05/07/17 11:57 POC ABG HCO3 TNR 05/07/17 11:57 POC ABG Total CO2 TNR 05/07/17 11:57 POC ABG O2 Sat TNR 05/07/17 11:57 POC ABG Base Excess TNR 05/07/17 11:57 FiO2 TNR 05/07/17 11:57 Sodium 142 mmol/L (137-145) 05/13/17 06:54 Potassium 3.3 mmol/L (3.6-5.0) L 05/13/17 06:54 Chloride 110.0 mmol/L (98-107) H 05/13/17 06:54 Carbon Dioxide 20 mmol/L (22-30) L 05/13/17 06:54 Anion Gap 15 mmol/L 05/13/17 06:54 BUN 48 mg/dL (7-17) H 05/13/17 06:54 Creatinine 2.8 mg/dL (0.7-1.2) H 05/13/17 06:54 Estimated GFR 21 ml/min 05/13/17 06:54 BUN/Creatinine Ratio 17 % 05/13/17 06:54 Glucose 119 mg/dL (65-100) H 05/13/17 06:54 POC Glucose 179 (70-105) H 05/12/17 22:20 Lactic Acid 0.40 mmol/L (0.7-2.0) L 05/04/17 Unknown Calcium 7.4 mg/dL (8.4-10.2) L 05/13/17 06:54 Ionized Calcium 3.5 mg/dL (4.8-5.6) L 05/05/17 17:45 Phosphorus 4.10 mg/dL (2.5-4.5) 05/12/17 05:00 Magnesium 2.00 mg/dL (1.7-2.3) 05/12/17 05:00 Total Bilirubin < 0.20 mg/dL (0.1-1.2) 05/12/17 05:00 AST 25 units/L (5-40) 05/12/17 05:00 ALT < 5 units/L (7-56) L 05/12/17 05:00 Alkaline Phosphatase 25 units/L (35-129) L 05/12/17 05:00 Total Creatine Kinase 346 units/L (30-135) H 05/05/17 05:20 CK-MB (CK-2) 8.2 ng/mL (0.0-4.0) H 05/05/17 05:20 CK-MB (CK-2) Rel Index 2.3 (0-4) 05/05/17 05:20 Troponin T 0.027 ng/mL (0.00-0.029) 05/05/17 05:20 C-Reactive Protein 14.50 mg/dL (0.00-1.30) H 05/06/17 07:55 Total Protein 3.3 g/dL (6.3-8.2) L 05/12/17 05:00 Albumin 1.7 g/dL (3.9-5) L 05/12/17 05:00 Albumin/Globulin Ratio 1.1 % 05/12/17 05:00 Triglycerides 149 mg/dL (2-149) 05/04/17 18:55 Cholesterol 185 mg/dL (50-199) 05/04/17 18:55 LDL Cholesterol Direct 103 mg/dL (50-130) 05/04/17 18:55 HDL Cholesterol 53 mg/dL (40-59) 05/04/17 18:55 Cholesterol/HDL Ratio 3.49 % 05/04/17 18:55 TSH 1.780 mlU/mL (0.270-4.200) 05/04/17 18:39 Urine Color [place] (Yellow) 05/11/17 17:50 Urine Turbidity Clear (Clear) 05/11/17 17:50 Urine pH 5.0 (5.0-7.0) 05/11/17 17:50 Ur Specific [place] 1.016 (1.003-1.030) 05/11/17 17:50 Urine Protein 100 mg/dl mg/dL (Negative) 05/11/17 17:50 Urine Glucose (UA) Neg mg/dL (Negative) 05/11/17 17:50 Urine Ketones Neg mg/dL (Negative) 05/11/17 17:50 Urine Blood Mod (Negative) 05/11/17 17:50 Urine Nitrite Neg (Negative) 05/11/17 17:50 Urine Bilirubin Neg (Negative) 05/11/17 17:50 Urine Urobilinogen < 2.0 mg/dL (<2.0) 05/11/17 17:50 Ur Leukocyte Esterase Mod (Negative) 05/11/17 17:50 Urine WBC (Auto) 27.0 /HPF (0.0-6.0) H 05/11/17 17:50 Urine RBC (Auto) 15.0 /HPF (0.0-6.0) 05/11/17 17:50 U Epithel Cells (Auto) < 1.0 /HPF (0-13.0) 05/11/17 17:50 Urine Bacteria (Auto) 1+ /HPF (Negative) 05/11/17 17:50 Amorphous Crystals Few 05/11/17 17:50 Urine Mucus Few /HPF 05/11/17 17:50 Urine Creatinine 28.0 mg/dL (0.1-20.0) H 05/05/17 Unknown Urine Sodium 129 mmol/L 05/05/17 Unknown Urine Potassium 3.67 mmol/L 05/05/17 Unknown Urine Chloride 115.6 mmolL (110-250) 05/05/17 Unknown Salicylates 0.3 mg/dL (2.8-20.0) L 05/04/17 18:39 Urine Opiates Screen Presumptive negative 05/04/17 02:20 Urine Methadone Screen Presumptive negative 05/04/17 02:20 Acetaminophen < 15.0 ug/mL (10.0-30.0) 05/04/17 18:39 Ur Barbiturates Screen Presumptive negative 05/04/17 02:20 Ur Phencyclidine Scrn Presumptive negative 05/04/17 02:20 Ur Amphetamines Screen Presumptive negative 05/04/17 02:20 U Benzodiazepines Scrn Presumptive negative 05/04/17 02:20 Urine Cocaine Screen Presumptive negative 05/04/17 02:20 U Marijuana (THC) Screen Presumptive negative 05/04/17 02:20 Drugs of Abuse Note Disclamer 05/04/17 02:20 Plasma/Serum Alcohol < 0.01 gm% (0-0.07) 05/04/17 18:39 Miscellaneous Test Flexitest 1 H 05/06/17 17:30
[2017-05-14] MEDS: NS 0.45/KCL 20MEQ 20 MEQ/1,000 ML BAG IV SCH ×2 (05:27→17:44)
[2017-05-14] MEDS: VANCOMYCIN PO PO SCH ×3 (05:28→17:14)
[2017-05-14] MEDS: FLAGYL 500 MG/100 ML 500 MG/100 ML BAG IV SCH ×3 (05:29→17:14)
[2017-05-14 05:42] LABS: Hematocrit 29.1 % (30.3-42.9); Hemoglobin 9.1 gm/dl (10.1-14.3); Mean Corpuscular HGB Conc 31 % (30-34); Mean Corpuscular Hemoglobin 29 pg (28-32); Mean Corpuscular Volume 92 fl (79-97); Platelet Count 366 K/mm3 (140-440); Red Blood Count 3.16 M/mm3 (3.65-5.03); Red Cell Distribution Width 17.9 % (13.2-15.2); White Blood Count 19.3 K/mm3 (4.5-11.0)
[2017-05-14 06:00] LABS: Calcium 7.5 mg/dL (8.4-10.2); Chloride 114.7 mmol/L (98-107); Potassium 3.7 mmol/L (3.6-5.0)
[2017-05-14 06:42] LABS: Basophils % (Manual) 0 % (0.0-1.8); Blastocytes % (Manual) 0 %
[2017-05-14 06:43] LABS: Anisocytosis 1+; Diff Status Complete; Platelet Estimate Consistent w Auto
[2017-05-14] MEDS: NOVOLOG SUB-Q SCH ×4 (08:30→21:51)
[2017-05-14] MEDS ORDERED: NACL 0.9% 250ML 250 ML IV NR (09:00)
[2017-05-14] MEDS: PULMICORT IH SCH ×2 (10:20→20:24)
[2017-05-14] MEDS: cefTRIAXone 1 GM in NACL 0.9% 20 ML IV SCH (10:29)
[2017-05-14] MEDS: PEPCID PO SCH (10:29)
[2017-05-14] MEDS: HEPARIN SUB-Q SCH ×2 (10:29→21:28)
[2017-05-14] MEDS: BROVANA NEBU IH SCH ×2 (10:30→20:23)
[2017-05-14] MEDS: DUONEB *Not for PRN Use IH SCH ×3 (10:30→20:24)
[2017-05-14] MEDS: ALBURX 25% (ALBUMIN) IV SCH ×2 (11:40→21:28)
--- NOTE | 2017-05-14 12:55 | Progress Note ---
Assessment and Plan Assessment: 1) Shock - multifactorial (hypovolemic/dehydration + septic): persistent hypotension, still leukocytosis. Septic component etiology C diff colitis. CRP= 14. Procal=2.4. 2) C diff Colitis: severe-recently exposed to broad spectrum abx. CT abd showed colitis. 3) UTI-mild ? reactive from colitis versus real 4) LUIS 6) COPD Plan: -close monitoring in view of SOB/hypotension/somnolence -continue PO vanco at 250 mg QID and IV flagyl QID day 10 of 14 -ceftriaxone per renal for UTI day 3 of 3 -monitor leukocytosis I am rounding tomorrow Thank you Dr Mejia for your consultation, will follow up with you. Winifred Guerrero MD Infectious Diseases Specialist [facility] [phone] Subjective Date of service: 05/14/17 Principal diagnosis: Septic shock,C. diff colitis Interval history: Feels sick c/o SOB and body aches, no fever, but hypotension noted Microbiology: Blood cultures: 05/05 neg Urine cultures: 05/05 neg Stool cultures: C diff 05/04 POSITIVE Current Antimicrobials: Vancomycin PO 05/05 Metronidazole 05/05 Ceftriaxone 05/11 Previous Antimicrobials: Zosyn Levaquin Vancomycin PO Metronidazole Vanco rectal 05/07 Objective - Exam Narrative Exam: General appearance: Alert in mild resp distress, anxious Eyes: anicteric sclerae, moist conjunctivae; no lid-lag; PERRLA HENT: Atraumatic; oropharynx clear vey dry oral mucosa Neck: Trachea midline; supple, no thyromegaly or lymphadenopathy Lungs: CTA CV: rrr Abdomen: Soft, diffuse tenderness Extremities: No peripheral edema or extremity lymphadenopathy Skin: Normal temperature, turgor and texture; no rash, ulcers or subcutaneous nodules Psych: Anxious. Neuro: alert and oriented x 3. Moving all extermities Lines: right SC TLC - Constitutional Vitals: Vital Signs Temp Pulse Resp BP Pulse Ox 97.3 F L 73 18 91/40 99 05/14/17 07:32 05/14/17 10:33 05/14/17 07:32 05/14/17 10:33 05/14/17 07:32 Temperature -Last 24 Hours Temperature 97.3 F Temperature 97.3 F Temperature 97.0 F Temperature 97.2 F Temperature 97.2 F Temperature 97.6 F Temperature 97.4 F - Labs CBC & Chem 7: 05/14/17 04:00 05/14/17 05:00 Labs: Abnormal lab results 05/13/17 05/13/17 05/13/17 Range/Units 07:35 12:52 23:32 WBC (4.5-11.0) K/mm3 RBC (3.65-5.03) M/mm3 Hgb (10.1-14.3) gm/dl Hct (30.3-42.9) % RDW (13.2-15.2) % Seg Neuts % (Manual) (40.0-70.0) % Lymphocytes % (Manual) (13.4-35.0) % Seg Neutrophils # Man (1.8-7.7) K/mm3 Lymphocytes # (Manual) (1.2-5.4) K/mm3 Monocytes # (Manual) (0.0-0.8) K/mm3 Eosinophils # (Manual) (0.0-0.4) K/mm3 Sodium (137-145) mmol/L Chloride (98-107) mmol/L Carbon Dioxide (22-30) mmol/L BUN (7-17) mg/dL Creatinine (0.7-1.2) mg/dL POC Glucose 139 H 159 H 179 H (70-105) Calcium (8.4-10.2) mg/dL 05/14/17 05/14/17 05/14/17 Range/Units 04:00 05:00 07:30 WBC 19.3 H (4.5-11.0) K/mm3 RBC 3.16 L (3.65-5.03) M/mm3 Hgb 9.1 L (10.1-14.3) gm/dl Hct 29.1 L (30.3-42.9) % RDW 17.9 H (13.2-15.2) % Seg Neuts % (Manual) 87.0 H (40.0-70.0) % Lymphocytes % (Manual) 2.0 L (13.4-35.0) % Seg Neutrophils # Man 16.8 H (1.8-7.7) K/mm3 Lymphocytes # (Manual) 0.4 L (1.2-5.4) K/mm3 Monocytes # (Manual) 1.0 H (0.0-0.8) K/mm3 Eosinophils # (Manual) 0.6 H (0.0-0.4) K/mm3 Sodium 146 H (137-145) mmol/L Chloride 114.7 H (98-107) mmol/L Carbon Dioxide 19 L (22-30) mmol/L BUN 43 H (7-17) mg/dL Creatinine 2.5 H (0.7-1.2) mg/dL POC Glucose 110 H (70-105) Calcium 7.5 L (8.4-10.2) mg/dL 05/14/ Range/Units 11:43 WBC (4.5-11.0) K/mm3 RBC (3.65-5.03) M/mm3 Hgb (10.1-14.3) gm/dl Hct (30.3-42.9) % RDW (13.2-15.2) % Seg Neuts % (Manual) (40.0-70.0) % Lymphocytes % (Manual) (13.4-35.0) % Seg Neutrophils # Man (1.8-7.7) K/mm3 Lymphocytes # (Manual) (1.2-5.4) K/mm3 Monocytes # (Manual) (0.0-0.8) K/mm3 Eosinophils # (Manual) (0.0-0.4) K/mm3 Sodium (137-145) mmol/L Chloride (98-107) mmol/L Carbon Dioxide (22-30) mmol/L BUN (7-17) mg/dL Creatinine (0.7-1.2) mg/dL POC Glucose 169 H (70-105) Calcium (8.4-10.2) mg/dL
--- NOTE | 2017-05-14 13:11 | Progress Note ---
Assessment and Plan Impression: * Acute kidney injury secondary to prerenal azotemia due to volume depletion secondary to GI loss - improved * Colitis * Sepsis * Metabolic acidosis,resolved - likely related to diarrhea; LA unremarkable * Hypokalemia * Hypernatremia * Hypocalcemia - corrected Ca 8.2 * Hypoalbuminemia * UTI Plan: * Renal function stable today * still with hypotension * give albumin, may need vasopressors and back to ICU if hypotension continues * Na better today * rocephin for UTI * replete k prn * Abx per ID * Replete lytes daily * Avoid potential nephrotoxins * maintain MAP>65 * Dose medications for renal function Subjective Date of service: 05/14/17 Principal diagnosis: Septic shock,C. diff colitis Interval history: resting well in bed today Objective - Exam Narrative Exam: General appearance: well-developed, well-nourished EENT: ATNC Neck: no JVD Respiratory: Present: Decreased Breath Sounds Cardiology: regular, S1S2 Gastrointestinal: hypoactive bowel sounds, no tenderness, distended Integumentary: no rash Neurologic: reflexes 2+ and symmetric Musculoskeletal: other (trace edema) Psychiatric: cooperative - Vital Signs Vital signs: Vital Signs - 12hr 05/14/17 05/14/17 05/14/17 05:21 07:28 07:32 Temperature 97.3 F L 97.3 F L Pulse Rate 68 76 79 Pulse Rate [ From Monitor] Respiratory 18 18 Rate Blood Pressure 78/41 74/43 Blood Pressure 94/42 [Right] O2 Sat by Pulse 99 99 Oximetry 05/14/17 05/14/17 10:00 10:33 Temperature Pulse Rate 80 73 Pulse Rate [ 76 From Monitor] Respiratory Rate Blood Pressure Blood Pressure 91/40 [Right] O2 Sat by Pulse Oximetry - Lab 05/14/17 04:00 05/14/17 05:00 Most recent lab results Calcium 7.5 mg/dL (8.4-10.2) L 05/14/17 05:00 Phosphorus 4.10 mg/dL (2.5-4.5) 05/12/17 05:00 Magnesium 2.00 mg/dL (1.7-2.3) 05/12/17 05:00 Urine Creatinine 28.0 mg/dL (0.1-20.0) H 05/05/17 Unknown Urine Sodium 129 mmol/L 05/05/17 Unknown
--- NOTE | 2017-05-14 18:36 | Progress Note ---
Assessment and Plan Assessment and plan: --Hypovolemia; secondary to underlying C. difficile colitis, plenty of fluids, IV hydration, Closely monitor --Severe sepsis; secondary to C. difficile colitis, supportive care IV fluids, oral vancomycin, IV Flagyl, contact isolation,ID following --Leukocytosis; partly secondary to C. difficile colitis as well as sepsis, ending down --UTI; received empiric antibiotics for 3 days, cultures negative to date. --Hypokalemia : corrected, today potassium is 3.7 --Hypovolemic shock, s/p pressors, blood pressures borderline --Acute kidney injury: Creatinine trending down, secondary to vasomotor nephropathy, Gentle hydration, nephrology following --Metabolic acidosis; aggressive IV hydration --History of COPD with exacerbation; continue current nebulizers and IV antibiotics --Pulmonary hypertension on echo --Severe hypoalbuminemia/protein calorie Malnutrition; nutritional supplements and supportive care --DVT prophylaxis; heparin renal dose Physical therapy as tolerated Possible discharge with home health in 1-2 days if stable Plan of care discussed with the patient and her nurse History Interval history: Patient seen and examined, medical records reviewed Patient feels slightly better Complaints of generalized weakness Hospitalist Physical - Constitutional Vitals: Temp Pulse Resp BP Pulse Ox 97.3 F L 73 18 91/40 97 05/14/17 07:32 05/14/17 10:33 05/14/17 07:32 05/14/17 10:33 05/14/17 10:00 General appearance: Present: no acute distress, cachectic, other (chronically ill-looking) - EENT Eyes: Present: PERRL, EOM intact - Neck Neck: Present: supple, normal ROM - Respiratory Respiratory effort: normal Respiratory: bilateral: diminished, rales, negative: rhonchi, wheezing - Cardiovascular Rhythm: regular Heart Sounds: Present: S1 & S2 - Extremities Extremities: no ischemia Extremity abnormal: edema - Abdominal General gastrointestinal: soft, non-tender, non-distended, normal bowel sounds - Integumentary Integumentary: Present: clear, warm - Psychiatric Psychiatric: appropriate mood/affect, cooperative - Neurologic Neurologic: moves all extremities Results - Labs CBC & Chem 7: 05/14/17 04:00 05/14/17 05:00 Labs: Laboratory Last Values WBC 19.3 K/mm3 (4.5-11.0) H 05/14/17 04:00 RBC 3.16 M/mm3 (3.65-5.03) L 05/14/17 04:00 Hgb 9.1 gm/dl (10.1-14.3) L 05/14/17 04:00 Hct 29.1 % (30.3-42.9) L 05/14/17 04:00 MCV 92 fl (79-97) 05/14/17 04:00 MCH 29 pg (28-32) 05/14/17 04:00 MCHC 31 % (30-34) 05/14/17 04:00 RDW 17.9 % (13.2-15.2) H 05/14/17 04:00 Plt Count 366 K/mm3 (140-440) 05/14/17 04:00 Add Manual Diff Complete 05/14/17 04:00 Total Counted 100 05/14/17 04:00 Seg Neutrophils % Poultry Pathologist 05/11/17 06:50 Seg Neuts % (Manual) 87.0 % (40.0-70.0) H 05/14/17 04:00 Band Neutrophils % 1.0 % 05/14/17 04:00 Lymphocytes % (Manual) 2.0 % (13.4-35.0) L 05/14/17 04:00 Reactive Lymphs % (Man) 0 % 05/14/17 04:00 Monocytes % (Manual) 5.0 % (0.0-7.3) 05/14/17 04:00 Eosinophils % (Manual) 3.0 % (0.0-4.3) 05/14/17 04:00 Basophils % (Manual) 0 % (0.0-1.8) 05/14/17 04:00 Metamyelocytes % 1.0 % 05/14/17 04:00 Myelocytes % 1.0 % 05/14/17 04:00 Promyelocytes % 0 % 05/14/17 04:00 Blast Cells % 0 % 05/14/17 04:00 Nucleated RBC % Not Reportable 05/14/17 04:00 Seg Neutrophils # Man 16.8 K/mm3 (1.8-7.7) H 05/14/17 04:00 Band Neutrophils # 0.2 K/mm3 05/14/17 04:00 Lymphocytes # (Manual) 0.4 K/mm3 (1.2-5.4) L 05/14/17 04:00 Abs React Lymphs (Man) 0.0 K/mm3 05/14/17 04:00 Monocytes # (Manual) 1.0 K/mm3 (0.0-0.8) H 05/14/17 04:00 Eosinophils # (Manual) 0.6 K/mm3 (0.0-0.4) H 05/14/17 04:00 Basophils # (Manual) 0.0 K/mm3 (0.0-0.1) 05/14/17 04:00 Metamyelocytes # 0.2 K/mm3 05/14/17 04:00 Myelocytes # 0.2 K/mm3 05/14/17 04:00 Promyelocytes # 0.0 K/mm3 05/14/17 04:00 Blast Cells # 0.0 K/mm3 05/14/17 04:00 WBC Morphology Not Reportable 05/14/17 04:00 Hypersegmented Neuts Not Reportable 05/14/17 04:00 Hyposegmented Neuts Not Reportable 05/14/17 04:00 Hypogranular Neuts Not Reportable 05/14/17 04:00 Smudge Cells Not Reportable 05/14/17 04:00 Toxic Granulation Not Reportable 05/14/17 04:00 Toxic Vacuolation Not Reportable 05/14/17 04:00 Dohle Bodies Not Reportable 05/14/17 04:00 Pelger-Huet Anomaly Not Reportable 05/14/17 04:00 Neisha Rods Not Reportable 05/14/17 04:00 Platelet Estimate Consistent w auto 05/14/17 04:00 Clumped Platelets Not Reportable 05/14/17 04:00 Plt Clumps, EDTA Not Reportable 05/14/17 04:00 Large Platelets Not Reportable 05/14/17 04:00 Giant Platelets Not Reportable 05/14/17 04:00 Platelet Satelliting Not Reportable 05/14/17 04:00 Plt Morphology Comment Not Reportable 05/14/17 04:00 RBC Morphology Not Reportable 05/14/17 04:00 Dimorphic RBCs Not Reportable 05/14/17 04:00 Polychromasia Not Reportable 05/14/17 04:00 Hypochromasia Not Reportable 05/14/17 04:00 Poikilocytosis Not Reportable 05/14/17 04:00 Anisocytosis 1+ 05/14/17 04:00 Microcytosis Not Reportable 05/14/17 04:00 Macrocytosis Not Reportable 05/14/17 04:00 Spherocytes Not Reportable 05/14/17 04:00 Pappenheimer Bodies Not Reportable 05/14/17 04:00 Sickle Cells Not Reportable 05/14/17 04:00 Target Cells Not Reportable 05/14/17 04:00 Tear Drop Cells Not Reportable 05/14/17 04:00 Ovalocytes Not Reportable 05/14/17 04:00 Helmet Cells Not Reportable 05/14/17 04:00 Frankel-Kemah Bodies Not Reportable 05/14/17 04:00 Midkiff Rings Not Reportable 05/14/17 04:00 Damián Cells Not Reportable 05/14/17 04:00 Bite Cells Not Reportable 05/14/17 04:00 Crenated Cell Not Reportable 05/14/17 04:00 Elliptocytes Not Reportable 05/14/17 04:00 Acanthocytes (Spur) Not Reportable 05/14/17 04:00 Rouleaux Not Reportable 05/14/17 04:00 Hemoglobin C Crystals Not Reportable 05/14/17 04:00 Schistocytes Not Reportable 05/14/17 04:00 Malaria parasites Not Reportable 05/14/17 04:00 Herve Bodies Not Reportable 05/14/17 04:00 Hem Pathologist Commnt No 05/14/17 04:00 D-Dimer 8441.57 ng/mlDDU (0-234) H 05/04/17 Unknown POC ABG pH TNR 05/07/17 11:57 POC ABG pCO2 TNR 05/07/17 11:57 POC ABG pO2 TNR 05/07/17 11:57 POC ABG HCO3 TNR 05/07/17 11:57 POC ABG Total CO2 TNR 05/07/17 11:57 POC ABG O2 Sat TNR 05/07/17 11:57 POC ABG Base Excess TNR 05/07/17 11:57 FiO2 TNR 05/07/17 11:57 Sodium 146 mmol/L (137-145) H 05/14/17 05:00 Potassium 3.7 mmol/L (3.6-5.0) 05/14/17 05:00 Chloride 114.7 mmol/L (98-107) H 05/14/17 05:00 Carbon Dioxide 19 mmol/L (22-30) L 05/14/17 05:00 Anion Gap 16 mmol/L 05/14/17 05:00 BUN 43 mg/dL (7-17) H 05/14/17 05:00 Creatinine 2.5 mg/dL (0.7-1.2) H 05/14/17 05:00 Estimated GFR 24 ml/min 05/14/17 05:00 BUN/Creatinine Ratio 17 % 05/14/17 05:00 Glucose 100 mg/dL (65-100) 05/14/17 05:00 POC Glucose 201 (70-105) H 05/14/17 15:44 Lactic Acid 0.40 mmol/L (0.7-2.0) L 05/04/17 Unknown Calcium 7.5 mg/dL (8.4-10.2) L 05/14/17 05:00 Ionized Calcium 3.5 mg/dL (4.8-5.6) L 05/05/17 17:45 Phosphorus 4.10 mg/dL (2.5-4.5) 05/12/17 05:00 Magnesium 2.00 mg/dL (1.7-2.3) 05/12/17 05:00 Total Bilirubin < 0.20 mg/dL (0.1-1.2) 05/12/17 05:00 AST 25 units/L (5-40) 05/12/17 05:00 ALT < 5 units/L (7-56) L 05/12/17 05:00 Alkaline Phosphatase 25 units/L (35-129) L 05/12/17 05:00 Total Creatine Kinase 346 units/L (30-135) H 05/05/17 05:20 CK-MB (CK-2) 8.2 ng/mL (0.0-4.0) H 05/05/17 05:20 CK-MB (CK-2) Rel Index 2.3 (0-4) 05/05/17 05:20 Troponin T 0.027 ng/mL (0.00-0.029) 05/05/17 05:20 C-Reactive Protein 14.50 mg/dL (0.00-1.30) H 05/06/17 07:55 Total Protein 3.3 g/dL (6.3-8.2) L 05/12/17 05:00 Albumin 1.7 g/dL (3.9-5) L 05/12/17 05:00 Albumin/Globulin Ratio 1.1 % 05/12/17 05:00 Triglycerides 149 mg/dL (2-149) 05/04/17 18:55 Cholesterol 185 mg/dL (50-199) 05/04/17 18:55 LDL Cholesterol Direct 103 mg/dL (50-130) 05/04/17 18:55 HDL Cholesterol 53 mg/dL (40-59) 05/04/17 18:55 Cholesterol/HDL Ratio 3.49 % 05/04/17 18:55 TSH 1.780 mlU/mL (0.270-4.200) 05/04/17 18:39 Urine Color Carol (Yellow) 05/11/17 17:50 Urine Turbidity Clear (Clear) 05/11/17 17:50 Urine pH 5.0 (5.0-7.0) 05/11/17 17:50 Ur Specific [place] 1.016 (1.003-1.030) 05/11/17 17:50 Urine Protein 100 mg/dl mg/dL (Negative) 05/11/17 17:50 Urine Glucose (UA) Neg mg/dL (Negative) 05/11/17 17:50 Urine Ketones Neg mg/dL (Negative) 05/11/17 17:50 Urine Blood Mod (Negative) 05/11/17 17:50 Urine Nitrite Neg (Negative) 05/11/17 17:50 Urine Bilirubin Neg (Negative) 05/11/17 17:50 Urine Urobilinogen < 2.0 mg/dL (<2.0) 05/11/17 17:50 Ur Leukocyte Esterase Mod (Negative) 05/11/17 17:50 Urine WBC (Auto) 27.0 /HPF (0.0-6.0) H 05/11/17 17:50 Urine RBC (Auto) 15.0 /HPF (0.0-6.0) 05/11/17 17:50 U Epithel Cells (Auto) < 1.0 /HPF (0-13.0) 05/11/17 17:50 Urine Bacteria (Auto) 1+ /HPF (Negative) 05/11/17 17:50 Amorphous Crystals Few 05/11/17 17:50 Urine Mucus Few /HPF 05/11/17 17:50 Urine Creatinine 28.0 mg/dL (0.1-20.0) H 05/05/17 Unknown Urine Sodium 129 mmol/L 05/05/17 Unknown Urine Potassium 3.67 mmol/L 05/05/17 Unknown Urine Chloride 115.6 mmolL (110-250) 05/05/17 Unknown Salicylates 0.3 mg/dL (2.8-20.0) L 05/04/17 18:39 Urine Opiates Screen Presumptive negative 05/04/17 02:20 Urine Methadone Screen Presumptive negative 05/04/17 02:20 Acetaminophen < 15.0 ug/mL (10.0-30.0) 05/04/17 18:39 Ur Barbiturates Screen Presumptive negative 05/04/17 02:20 Ur Phencyclidine Scrn Presumptive negative 05/04/17 02:20 Ur Amphetamines Screen Presumptive negative 05/04/17 02:20 U Benzodiazepines Scrn Presumptive negative 05/04/17 02:20 Urine Cocaine Screen Presumptive negative 05/04/17 02:20 U Marijuana (THC) Screen Presumptive negative 05/04/17 02:20 Drugs of Abuse Note Disclamer 05/04/17 02:20 Plasma/Serum Alcohol < 0.01 gm% (0-0.07) 05/04/17 18:39 Miscellaneous Test Flexitest 1 H 05/06/17 17:30
[2017-05-15] MEDS: VANCOMYCIN PO PO SCH ×4 (00:31→18:32)
[2017-05-15] MEDS: FLAGYL 500 MG/100 ML 500 MG/100 ML BAG IV SCH ×5 (00:32→23:08)
[2017-05-15 07:19] LABS: Calcium 7.2 mg/dL (8.4-10.2); Chloride 113.6 mmol/L (98-107); Potassium 3.9 mmol/L (3.6-5.0)
--- NOTE | 2017-05-15 08:08 | Progress Note ---
Assessment and Plan Assessment and plan: --Hypovolemic shock, s/p pressors, now blood pressures borderline, secondary to underlying C. difficile colitis, plenty of fluids, IV hydration, Closely monitor --Severe sepsis; secondary to C. difficile colitis, supportive care IV fluids, oral vancomycin, IV Flagyl, contact isolation,ID evaluated the patient --Leukocytosis; partly secondary to C. difficile colitis as well as sepsis, ending down --Acute kidney injury: worsening Creatinine , secondary to hypovolemia/pre renalazotemia, Gentle hydration, nephrology following --UTI; received empiric antibiotics for 3 days, cultures negative to date. --Hypokalemia : corrected, --Metabolic acidosis; IV hydration --History of COPD with exacerbation; continue current nebulizers and IV antibiotics --Pulmonary hypertension on echo --Severe hypoalbuminemia/protein calorie Malnutrition; nutritional supplements and supportive care --DVT prophylaxis; heparin renal dose Physical therapy as tolerated Possible discharge with home health in 1-2 days if stable History Interval history: Patient seen and examined Patient is chronically ill-looking, her baseline Blood pressures on the lower range Alert and awake responding to very simple questions Vital signs reviewed Hospitalist Physical - Constitutional Vitals: Temp Pulse Resp BP Pulse Ox 98.3 F 66 18 65/25 100 05/15/17 05:20 05/15/17 05:20 05/15/17 05:20 05/15/17 05:20 05/15/17 05:20 General appearance: Present: no acute distress, cachectic, other (chronically ill-looking) - EENT Eyes: Present: PERRL, EOM intact - Neck Neck: Present: supple, normal ROM - Respiratory Respiratory effort: normal Respiratory: bilateral: diminished, negative: rales, rhonchi, wheezing - Cardiovascular Rhythm: regular Heart Sounds: Present: S1 & S2 - Extremities Extremities: no ischemia, No edema - Abdominal General gastrointestinal: soft, non-tender, non-distended - Integumentary Integumentary: Present: clear, warm - Psychiatric Psychiatric: appropriate mood/affect, other (minimally communicative) - Neurologic Neurologic: other (minimally communicative) Results - Labs CBC & Chem 7: 05/14/17 04:00 05/15/17 06:10 Labs: Laboratory Last Values WBC 19.3 K/mm3 (4.5-11.0) H 05/14/17 04:00 RBC 3.16 M/mm3 (3.65-5.03) L 05/14/17 04:00 Hgb 9.1 gm/dl (10.1-14.3) L 05/14/17 04:00 Hct 29.1 % (30.3-42.9) L 05/14/17 04:00 MCV 92 fl (79-97) 05/14/17 04:00 MCH 29 pg (28-32) 05/14/17 04:00 MCHC 31 % (30-34) 05/14/17 04:00 RDW 17.9 % (13.2-15.2) H 05/14/17 04:00 Plt Count 366 K/mm3 (140-440) 05/14/17 04:00 Add Manual Diff Complete 05/14/17 04:00 Total Counted 100 05/14/17 04:00 Seg Neutrophils % Auto Job Estimator 05/11/17 06:50 Seg Neuts % (Manual) 87.0 % (40.0-70.0) H 05/14/17 04:00 Band Neutrophils % 1.0 % 05/14/17 04:00 Lymphocytes % (Manual) 2.0 % (13.4-35.0) L 05/14/17 04:00 Reactive Lymphs % (Man) 0 % 05/14/17 04:00 Monocytes % (Manual) 5.0 % (0.0-7.3) 05/14/17 04:00 Eosinophils % (Manual) 3.0 % (0.0-4.3) 05/14/17 04:00 Basophils % (Manual) 0 % (0.0-1.8) 05/14/17 04:00 Metamyelocytes % 1.0 % 05/14/17 04:00 Myelocytes % 1.0 % 05/14/17 04:00 Promyelocytes % 0 % 05/14/17 04:00 Blast Cells % 0 % 05/14/17 04:00 Nucleated RBC % Not Reportable 05/14/17 04:00 Seg Neutrophils # Man 16.8 K/mm3 (1.8-7.7) H 05/14/17 04:00 Band Neutrophils # 0.2 K/mm3 05/14/17 04:00 Lymphocytes # (Manual) 0.4 K/mm3 (1.2-5.4) L 05/14/17 04:00 Abs React Lymphs (Man) 0.0 K/mm3 05/14/17 04:00 Monocytes # (Manual) 1.0 K/mm3 (0.0-0.8) H 05/14/17 04:00 Eosinophils # (Manual) 0.6 K/mm3 (0.0-0.4) H 05/14/17 04:00 Basophils # (Manual) 0.0 K/mm3 (0.0-0.1) 05/14/17 04:00 Metamyelocytes # 0.2 K/mm3 05/14/17 04:00 Myelocytes # 0.2 K/mm3 05/14/17 04:00 Promyelocytes # 0.0 K/mm3 05/14/17 04:00 Blast Cells # 0.0 K/mm3 05/14/17 04:00 WBC Morphology Not Reportable 05/14/17 04:00 Hypersegmented Neuts Not Reportable 05/14/17 04:00 Hyposegmented Neuts Not Reportable 05/14/17 04:00 Hypogranular Neuts Not Reportable 05/14/17 04:00 Smudge Cells Not Reportable 05/14/17 04:00 Toxic Granulation Not Reportable 05/14/17 04:00 Toxic Vacuolation Not Reportable 05/14/17 04:00 Dohle Bodies Not Reportable 05/14/17 04:00 Pelger-Huet Anomaly Not Reportable 05/14/17 04:00 Neisha Rods Not Reportable 05/14/17 04:00 Platelet Estimate Consistent w auto 05/14/17 04:00 Clumped Platelets Not Reportable 05/14/17 04:00 Plt Clumps, EDTA Not Reportable 05/14/17 04:00 Large Platelets Not Reportable 05/14/17 04:00 Giant Platelets Not Reportable 05/14/17 04:00 Platelet Satelliting Not Reportable 05/14/17 04:00 Plt Morphology Comment Not Reportable 05/14/17 04:00 RBC Morphology Not Reportable 05/14/17 04:00 Dimorphic RBCs Not Reportable 05/14/17 04:00 Polychromasia Not Reportable 05/14/17 04:00 Hypochromasia Not Reportable 05/14/17 04:00 Poikilocytosis Not Reportable 05/14/17 04:00 Anisocytosis 1+ 05/14/17 04:00 Microcytosis Not Reportable 05/14/17 04:00 Macrocytosis Not Reportable 05/14/17 04:00 Spherocytes Not Reportable 05/14/17 04:00 Pappenheimer Bodies Not Reportable 05/14/17 04:00 Sickle Cells Not Reportable 05/14/17 04:00 Target Cells Not Reportable 05/14/17 04:00 Tear Drop Cells Not Reportable 05/14/17 04:00 Ovalocytes Not Reportable 05/14/17 04:00 Helmet Cells Not Reportable 05/14/17 04:00 [place] Bodies Not Reportable 05/14/17 04:00 [place] Rings Not Reportable 05/14/17 04:00 Damián Cells Not Reportable 05/14/17 04:00 Bite Cells Not Reportable 05/14/17 04:00 Crenated Cell Not Reportable 05/14/17 04:00 Elliptocytes Not Reportable 05/14/17 04:00 Acanthocytes (Spur) Not Reportable 05/14/17 04:00 Rouleaux Not Reportable 05/14/17 04:00 Hemoglobin C Crystals Not Reportable 05/14/17 04:00 Schistocytes Not Reportable 05/14/17 04:00 Malaria parasites Not Reportable 05/14/17 04:00 Herve Bodies Not Reportable 05/14/17 04:00 Hem Pathologist Commnt No 05/14/17 04:00 D-Dimer 8441.57 ng/mlDDU (0-234) H 05/04/17 Unknown POC ABG pH TNR 05/07/17 11:57 POC ABG pCO2 TNR 05/07/17 11:57 POC ABG pO2 TNR 05/07/17 11:57 POC ABG HCO3 TNR 05/07/17 11:57 POC ABG Total CO2 TNR 05/07/17 11:57 POC ABG O2 Sat TNR 05/07/17 11:57 POC ABG Base Excess TNR 05/07/17 11:57 FiO2 TNR 05/07/17 11:57 Sodium 144 mmol/L (137-145) 05/15/17 06:10 Potassium 3.9 mmol/L (3.6-5.0) 05/15/17 06:10 Chloride 113.6 mmol/L (98-107) H 05/15/17 06:10 Carbon Dioxide 18 mmol/L (22-30) L 05/15/17 06:10 Anion Gap 16 mmol/L 05/15/17 06:10 BUN 43 mg/dL (7-17) H 05/15/17 06:10 Creatinine 2.7 mg/dL (0.7-1.2) H 05/15/17 06:10 Estimated GFR 22 ml/min 05/15/17 06:10 BUN/Creatinine Ratio 16 % 05/15/17 06:10 Glucose 123 mg/dL (65-100) H 05/15/17 06:10 POC Glucose 223 (70-105) H 05/14/17 20:10 Lactic Acid 0.40 mmol/L (0.7-2.0) L 05/04/17 Unknown Calcium 7.2 mg/dL (8.4-10.2) L 05/15/17 06:10 Ionized Calcium 3.5 mg/dL (4.8-5.6) L 05/05/17 17:45 Phosphorus 4.10 mg/dL (2.5-4.5) 05/12/17 05:00 Magnesium 2.00 mg/dL (1.7-2.3) 05/12/17 05:00 Total Bilirubin < 0.20 mg/dL (0.1-1.2) 05/12/17 05:00 AST 25 units/L (5-40) 05/12/17 05:00 ALT < 5 units/L (7-56) L 05/12/17 05:00 Alkaline Phosphatase 25 units/L (35-129) L 05/12/17 05:00 Total Creatine Kinase 346 units/L (30-135) H 05/05/17 05:20 CK-MB (CK-2) 8.2 ng/mL (0.0-4.0) H 05/05/17 05:20 CK-MB (CK-2) Rel Index 2.3 (0-4) 05/05/17 05:20 Troponin T 0.027 ng/mL (0.00-0.029) 05/05/17 05:20 C-Reactive Protein 14.50 mg/dL (0.00-1.30) H 05/06/17 07:55 Total Protein 3.3 g/dL (6.3-8.2) L 05/12/17 05:00 Albumin 1.7 g/dL (3.9-5) L 05/12/17 05:00 Albumin/Globulin Ratio 1.1 % 05/12/17 05:00 Triglycerides 149 mg/dL (2-149) 05/04/17 18:55 Cholesterol 185 mg/dL (50-199) 05/04/17 18:55 LDL Cholesterol Direct 103 mg/dL (50-130) 05/04/17 18:55 HDL Cholesterol 53 mg/dL (40-59) 05/04/17 18:55 Cholesterol/HDL Ratio 3.49 % 05/04/17 18:55 TSH 1.780 mlU/mL (0.270-4.200) 05/04/17 18:39 Urine Color Carol (Yellow) 05/11/17 17:50 Urine Turbidity Clear (Clear) 05/11/17 17:50 Urine pH 5.0 (5.0-7.0) 05/11/17 17:50 Ur Specific [place] 1.016 (1.003-1.030) 05/11/17 17:50 Urine Protein 100 mg/dl mg/dL (Negative) 05/11/17 17:50 Urine Glucose (UA) Neg mg/dL (Negative) 05/11/17 17:50 Urine Ketones Neg mg/dL (Negative) 05/11/17 17:50 Urine Blood Mod (Negative) 05/11/17 17:50 Urine Nitrite Neg (Negative) 05/11/17 17:50 Urine Bilirubin Neg (Negative) 05/11/17 17:50 Urine Urobilinogen < 2.0 mg/dL (<2.0) 05/11/17 17:50 Ur Leukocyte Esterase Mod (Negative) 05/11/17 17:50 Urine WBC (Auto) 27.0 /HPF (0.0-6.0) H 05/11/17 17:50 Urine RBC (Auto) 15.0 /HPF (0.0-6.0) 05/11/17 17:50 U Epithel Cells (Auto) < 1.0 /HPF (0-13.0) 05/11/17 17:50 Urine Bacteria (Auto) 1+ /HPF (Negative) 05/11/17 17:50 Amorphous Crystals Few 05/11/17 17:50 Urine Mucus Few /HPF 05/11/17 17:50 Urine Creatinine 28.0 mg/dL (0.1-20.0) H 05/05/17 Unknown Urine Sodium 129 mmol/L 05/05/17 Unknown Urine Potassium 3.67 mmol/L 05/05/17 Unknown Urine Chloride 115.6 mmolL (110-250) 05/05/17 Unknown Salicylates 0.3 mg/dL (2.8-20.0) L 05/04/17 18:39 Urine Opiates Screen Presumptive negative 05/04/17 02:20 Urine Methadone Screen Presumptive negative 05/04/17 02:20 Acetaminophen < 15.0 ug/mL (10.0-30.0) 05/04/17 18:39 Ur Barbiturates Screen Presumptive negative 05/04/17 02:20 Ur Phencyclidine Scrn Presumptive negative 05/04/17 02:20 Ur Amphetamines Screen Presumptive negative 05/04/17 02:20 U Benzodiazepines Scrn Presumptive negative 05/04/17 02:20 Urine Cocaine Screen Presumptive negative 05/04/17 02:20 U Marijuana (THC) Screen Presumptive negative 05/04/17 02:20 Drugs of Abuse Note Disclamer 05/04/17 02:20 Plasma/Serum Alcohol < 0.01 gm% (0-0.07) 05/04/17 18:39 Miscellaneous Test Flexitest 1 H 05/06/17 17:30
[2017-05-15] MEDS: NOVOLOG SUB-Q SCH ×4 (08:37→22:21)
[2017-05-15] MEDS: PULMICORT IH SCH ×2 (09:00→21:00)
[2017-05-15] MEDS: BROVANA NEBU IH SCH ×2 (09:00→21:05)
[2017-05-15] MEDS: DUONEB *Not for PRN Use IH SCH ×3 (09:22→21:00)
--- NOTE | 2017-05-15 10:09 | Progress Note ---
Assessment and Plan Assessment: 1) Shock - multifactorial (hypovolemic/dehydration + septic): persistent hypotension, still leukocytosis. Septic component etiology C diff colitis. CRP= 14. Procal=2.4. 2) C diff Colitis: severe-recently exposed to broad spectrum abx. CT abd showed colitis. 3) UTI-mild ? reactive from colitis versus real 4) LUIS 6) COPD 7) SOB ? Plan: -SOB per IMS -continue PO vanco at 250 mg QID and IV flagyl QID day 11 -monitor leukocytosis I will be off tomorrow, available on the phone and will be back rounding on the weekend Thank you Dr Mejia for your consultation, will follow up with you. Winifred Guerrero MD Infectious Diseases Specialist [facility], [place] [facility] [phone] Subjective Date of service: 05/15/17 Principal diagnosis: Septic shock,C. diff colitis Interval history: Feels some better but remains SOB, no fever, still hypotension noted Microbiology: Blood cultures: 05/05 neg Urine cultures: 05/05 neg Stool cultures: C diff 05/04 POSITIVE Current Antimicrobials: Vancomycin PO 05/05 Metronidazole 05/05 Ceftriaxone 05/11 Previous Antimicrobials: Zosyn Levaquin Vancomycin PO Metronidazole Vanco rectal 05/07 Objective - Exam Narrative Exam: General appearance: Alert in mild resp distress, anxious Eyes: anicteric sclerae, moist conjunctivae; no lid-lag; PERRLA HENT: Atraumatic; oropharynx clear vey dry oral mucosa Neck: Trachea midline; supple, no thyromegaly or lymphadenopathy Lungs: CTA CV: rrr Abdomen: Soft, diffuse tenderness Extremities: No peripheral edema or extremity lymphadenopathy Skin: Normal temperature, turgor and texture; no rash, ulcers or subcutaneous nodules Psych: Anxious. Neuro: alert and oriented x 3. Moving all extermities Lines: right SC TLC - Constitutional Vitals: Vital Signs Temp Pulse Resp BP Pulse Ox 98.3 F 66 18 65/25 100 05/15/17 05:20 05/15/17 05:20 05/15/17 05:20 05/15/17 05:20 05/15/17 05:20 Temperature -Last 24 Hours Temperature 98.3 F Temperature 97.2 F Temperature 97.2 F Temperature 97.1 F Temperature 97.1 F Temperature 98.2 F Temperature 97.3 F Temperature 97.4 F - Labs CBC & Chem 7: 05/14/17 04:00 05/15/17 06:10 Labs: Abnormal lab results 05/14/17 05/14/17 05/14/17 Range/Units 11:43 15:44 20:10 Chloride (98-107) mmol/L Carbon Dioxide (22-30) mmol/L BUN (7-17) mg/dL Creatinine (0.7-1.2) mg/dL Glucose (65-100) mg/dL POC Glucose 169 H 201 H 223 H (70-105) Calcium (8.4-10.2) mg/dL 05/15/17 Range/Units 06:10 Chloride 113.6 H (98-107) mmol/L Carbon Dioxide 18 L (22-30) mmol/L BUN 43 H (7-17) mg/dL Creatinine 2.7 H (0.7-1.2) mg/dL Glucose 123 H (65-100) mg/dL POC Glucose (70-105) Calcium 7.2 L (8.4-10.2) mg/dL
--- NOTE | 2017-05-15 10:35 | Progress Note ---
Subjective Principal diagnosis: Septic shock,C. diff colitis Interval history: Patient was seen today for follow-up, on many renal related issues resting comfortably in bed Interdisciplinary notes were reviewed Vitals labs intake and output medications were reviewed from today Allergies: Reviewed Social history: Reviewed Family history: Reviewed Physical examination HEENT: Oral mucosa moist no pharyngeal erythema Neck: Supple no JVD Chest: Clear to auscultation no crackles rales or wheezes Heart: Regular rate and rhythm S1-S2 heard no S3-S4 Abdomen: Soft nontender no renal bruit no CVA tenderness no suprapubic fullness Extremity: Mild edema dry skin no peripheral cyanosis pulses palpable Neurological: Alert awake Musculoskeletal: No joint effusion noted Assessment and plan Acute kidney injury in a patient with an admitted with colitis sepsis also has had metabolic acidosis; most of it is resulting from volume loss diarrhea currently doing better CT scan shows no evidence of any kidney stones, other than moderate synovitis and renal gland is not enlarged some calcification of the abdominal aorta noted Hypokalemia: To monitor follow and replace as required Hypernatremia to monitor and follow Anemia current hemoglobin 9.1 can be considered for erythropoietin Metabolic acidosis, and bicarbonate around 18 Phosphorus 4.1 magnesium 2.0 Patient was treated with Rocephin for UTI Overall stable from renal standpoint avoid nephrotoxic medications supportive care Dose medication for current renal function Labs were discussed with patient explained and simple [place] does have good understanding off renal related issues, Will continue to follow and make recommendation from renal standpoint Objective - Vital Signs Vital signs: Vital Signs - 12hr 05/14/17 05/14/17 05/15/17 22:35 22:50 05:20 Temperature 97.2 F L 98.3 F Pulse Rate 66 Pulse Rate [ 78 Apical] Pulse Rate [ 78 From Monitor] Respiratory 28 H 28 H 18 Rate Blood Pressure 80/39 65/25 O2 Sat by Pulse 100 Oximetry - Lab 05/14/17 04:00 05/15/17 06:10 Most recent lab results Calcium 7.2 mg/dL (8.4-10.2) L 05/15/17 06:10 Phosphorus 4.10 mg/dL (2.5-4.5) 05/12/17 05:00 Magnesium 2.00 mg/dL (1.7-2.3) 05/12/17 05:00 Urine Creatinine 28.0 mg/dL (0.1-20.0) H 11/13/17 Unknown Urine Sodium 129 mmol/L 05/05/17 Unknown
[2017-05-15] MEDS: PEPCID PO SCH (10:59)
[2017-05-15] MEDS: PROAMATINE PO SCH ×3 (10:59→22:21)
[2017-05-15] MEDS: HEPARIN SUB-Q SCH ×2 (10:59→22:21)
[2017-05-15] MEDS: NACL 0.9% 1000 ML 1,000 ML IV SCH (11:01)
[2017-05-15] MEDS: ALBURX 25% (ALBUMIN) IV SCH (13:37)
[2017-05-16 00:11] LABS: ISTAT Base Excess -16; ISTAT PCO2 67.5 (35-45); ISTAT PH 6.983 (7.35-7.45); ISTAT PO2 85 (80-105); ISTAT SO2 88; ISTAT TCO2 18
[2017-05-16] MEDS: ALBURX 25% (ALBUMIN) IV SCH ×3 (00:23→21:59)
[2017-05-16] MEDS ORDERED: NACL 0.9% 500 ML 500 ML IV ONE (00:24)
[2017-05-16] MEDS: VANCOMYCIN PO PO SCH ×4 (00:51→18:43)
[2017-05-16] MEDS: LEVOPHED 8 MG in NACL 0.9% 250ML 242 ML IV SCH ×4 (00:52→23:00)
[2017-05-16] MEDS ORDERED: VASELINE LIP THERAPY TP ONE (03:14)
[2017-05-16] MEDS: FLAGYL 500 MG/100 ML 500 MG/100 ML BAG IV SCH ×3 (05:40→17:29)
[2017-05-16 06:46] LABS: Calcium 7.5 mg/dL (8.4-10.2); Chloride 114.2 mmol/L (98-107); Potassium 4.1 mmol/L (3.6-5.0)
[2017-05-16] MEDS: PULMICORT IH SCH ×2 (07:44→19:31)
[2017-05-16] MEDS: DUONEB *Not for PRN Use IH SCH ×3 (07:44→19:31)
[2017-05-16] MEDS: BROVANA NEBU IH SCH ×2 (07:44→19:31)
[2017-05-16] MEDS: NOVOLOG SUB-Q SCH ×3 (07:49→16:33)
[2017-05-16] MEDS ORDERED: SUBLIMAZE IV ONE (08:09)
[2017-05-16] MEDS ORDERED: VERSED IV ONE ×2 (08:09→20:00)
[2017-05-16] MEDS ORDERED: AMIDATE IV ONE (08:11)
--- NOTE | 2017-05-16 08:18 | Consultation ---
History of Present Illness Consult date: 05/16/17 Requesting physician: OUSMANE SIN Reason for consult: other History of present illness: 61 y/o female, originally admitted earlier this month, found to have C. Diff colitis, treated and still being treated now transferred back to the ICU with septic shock and metabolic acidosis. Per IMS patient was awake but lethargic, easily arousable. I asked RT the same thing last night after the blood gas ordered showed a pH of 6.9. RT at that time said patient would not wear bipap therapy even if indicated. This am on my exam she is breathing but unresponsive. She will respond to painful stimuli but that's it. No family at bedside. Currently on levophed 10 with MAP of 63. Past History Past Medical History: COPD, hypertension, hyperlipidemia, other (GI bleeding and C.Diff colitis) Past Surgical History: hysterectomy Social history: lives with family Family history: hypertension Medications and Allergies Allergies Allergy/AdvReac Type Severity Reaction Status Date / Time No Known Allergies Allergy Verified 05/23/15 12:02 Home Medications Medication Instructions Recorded Confirmed Last Taken Type Acetaminophen [Acetaminophen TAB] 650 mg PO Q4H PRN #30 tablet 12/24/1603/14/17 08:00 Rx Arformoterol Nebu [Brovana Nebu] 15 mcg IH Q12HRT #1 ml 03/19/17 05/05/17 Unknown Rx Aspirin [Aspirin BABY CHEW TAB] 81 mg PO QDAY #30 tab.chew 03/19/17 05/05/17 Unknown Rx Famotidine [Pepcid] 20 mg PO BID #60 tablet 03/19/17 05/05/17 Unknown Rx Hydrochlorothiazide [HCTZ] 12.5 mg PO QDAY #30 tablet 03/19/17 05/05/17 Unknown Rx Ipratropium/Albuterol Sulfate 1 ampul IH TIDRT #30 ampul.neb 03/19/17 05/05/17 Unknown Rx [DUONEB *Not for PRN Use*] Lisinopril [Zestril] 40 mg PO QDAY #30 tablet 03/19/17 05/05/17 Unknown Rx guaiFENesin ER [Mucinex ER] 600 mg PO BID #10 tablet 03/19/17 05/05/17 Unknown Rx Active Meds: Active Medications Acetaminophen (Tylenol) 650 mg PO Q4H PRN PRN Reason: Pain MILD(1-3)/Fever >100.5/KHOURY Last Admin: 05/05/17 12:55 Dose: 650 mg Albumin Human (Alburx 25% (Albumin)) 25 gm IV Q12HR [facility] Last Admin: 05/16/17 00:23 Dose: 25 gm Albuterol (Proventil) 2.5 mg IH Q4HRT PRN PRN Reason: Shortness Of Breath Albuterol/Ipratropium (Duoneb *Not For Prn Use*) 1 ampul IH TIDRT [facility] Last Admin: 05/16/17 07:44 Dose: Not Given Arformoterol Tartrate (Brovana Nebu) 15 mcg IH Q12HRT [facility] Last Admin: 05/16/17 07:44 Dose: Not Given Bisacodyl (Dulcolax) 10 mg OR QDAY PRN PRN Reason: Constipation unrelieved by MOM Budesonide (Pulmicort) 0.25 mg IH Q12HRT [facility] Last Admin: 05/16/17 07:44 Dose: Not Given Dextrose (D50w (25gm) Syringe) 50 ml IV PRN PRN PRN Reason: Hypoglycemia Etomidate (Amidate) 13.2 mg 0.2 mg/kg (13.2 mg) IV ONCE ONE Stop: 05/16/17 08:12 Famotidine (Pepcid) 20 mg PO DAILY [facility] Last Admin: 05/15/17 10:59 Dose: 20 mg Fentanyl (Sublimaze) 100 mcg IV ONCE ONE Stop: 05/16/17 08:10 Heparin Sodium (Porcine) (Heparin) 5,000 unit SUB-Q BID [facility] Last Admin: 05/15/17 22:21 Dose: 5,000 unit Hydrocortisone Acetate (Proctosol-Hc) 1 applic OR Q8H PRN PRN Reason: Hemorrhoids Last Admin: 05/05/17 23:40 Dose: 1 applic Sodium Chloride (Nacl 0.9% 500 Ml) 500 mls @ 10 mls/hr IV PRN PRN PRN Reason: FOR CVP Last Infusion: 05/07/17 13:17 Dose: Infused Metronidazole (Flagyl 500 Mg/100 Ml) 500 mg in 100 mls @ 100 mls/hr IV Q6HR [facility] Last Admin: 05/16/17 05:40 Dose: 100 mls/hr Sodium Chloride (Nacl 0.9% 1000 Ml) 1,000 mls @ 75 mls/hr IV DIRECT [facility]UN[facility] Last Admin: 05/15/17 11:01 Dose: 75 mls/hr Norepinephrine 8 mg/ Sodium (Chloride) 250 mls @ 3.75 mls/hr IV TITR DUNG; 2 MCG /MIN PRN Reason: Protocol Last Admin: 05/16/17 00:52 Dose: 2 mcg/min, 3.75 mls/hr Insulin Aspart (Novolog) 0 units SUB-Q ACHS DUNG PRN Reason: Protocol Last Admin: 05/16/17 07:49 Dose: Not Given Midazolam HCl (Versed) 2 mg IV ONCE ONE Stop: 05/16/17 08:10 Ondansetron HCl (Zofran) 4 mg IV Q4H PRN PRN Reason: N/V unrelieved by Pilar Last Admin: 05/12/17 10:36 Dose: 4 mg Vancomycin HCl (Vancomycin Po) 250 mg PO Q6HR [facility] Last Admin: 05/16/17 05:40 Dose: 250 mg Review of Systems ROS unobtainable: due to mental status Physical Examination Vital signs: Vital Signs Pulse Resp 82 17 05/04/17 18:08 05/04/17 18:08 General appearance: other (Stuporous) Eyes: non-icteric ENT: oropharynx moist Neck: supple Effort: mildly labored Ascultation: Bilateral: rales Percussion: Bilateral: not dull Cardiovascular: regular rate and rhythm Gastrointestinal: hypoactive bowel sounds Extremities: anasarca Musculoskeletal: no deformities unable to assess Results - Laboratory Findings CBC and BMP: 05/14/17 04:00 05/16/17 06:00 ABG POC ABG pH 6.983 (7.35-7.45) L 05/15/17 23:51 POC ABG pCO2 67.5 (35-45) H 05/15/17 23:51 POC ABG pO2 85 (80-105) 05/15/17 23:51 POC ABG HCO3 16.0 05/15/17 23:51 POC ABG Total CO2 18 05/15/17 23:51 POC ABG O2 Sat 88 05/15/17 23:51 PT/INR, D-dimer D-Dimer 8441.57 ng/mlDDU (0-234) H 05/04/17 Unknown Abnormal lab findings: Abnormal Labs 05/04/17 05/04/17 05/04/17 02:20 18:39 18:39 WBC 24.3 H RBC Hgb Hct RDW 16.4 H Plt Count 658 H Seg Neuts % (Manual) 94.5 H Lymphocytes % (Manual) 2.5 L Seg Neutrophils # Man 23.0 H Lymphocytes # (Manual) 0.6 L Monocytes # (Manual) Eosinophils # (Manual) D-Dimer POC ABG pH POC ABG pCO2 POC ABG pO2 Sodium Potassium 3.2 L Chloride 92.6 L Carbon Dioxide 14 L BUN 66 H Creatinine 6.5 H Glucose POC Glucose Lactic Acid Calcium 7.5 L Ionized Calcium Phosphorus Magnesium ALT 5 L Alkaline Phosphatase 32 L Total Creatine Kinase CK-MB (CK-2) Troponin T C-Reactive Protein Total Protein 5.4 L Albumin 3.0 L Urine WBC (Auto) 100.0 H Urine Creatinine Salicylates Miscellaneous Test 05/04/17 05/04/17 05/04/17 18:39 18:55 Unknown WBC RBC Hgb Hct RDW Plt Count Seg Neuts % (Manual) Lymphocytes % (Manual) Seg Neutrophils # Man Lymphocytes # (Manual) Monocytes # (Manual) Eosinophils # (Manual) D-Dimer POC ABG pH POC ABG pCO2 POC ABG pO2 Sodium Potassium Chloride Carbon Dioxide BUN Creatinine Glucose POC Glucose Lactic Acid 0.40 L Calcium Ionized Calcium Phosphorus Magnesium ALT Alkaline Phosphatase Total Creatine Kinase 155 H CK-MB (CK-2) 4.5 H Troponin T 0.033 H C-Reactive Protein Total Protein Albumin Urine WBC (Auto) Urine Creatinine Salicylates 0.3 L Miscellaneous Test 05/04/17 05/04/17 05/04/17 Unknown Unknown Unknown WBC RBC Hgb Hct RDW Plt Count Seg Neuts % (Manual) Lymphocytes % (Manual) Seg Neutrophils # Man Lymphocytes # (Manual) Monocytes # (Manual) Eosinophils # (Manual) D-Dimer 8441.57 H POC ABG pH POC ABG pCO2 POC ABG pO2 Sodium Potassium Chloride Carbon Dioxide BUN Creatinine Glucose POC Glucose Lactic Acid 0.40 L Calcium Ionized Calcium Phosphorus Magnesium ALT Alkaline Phosphatase Total Creatine Kinase 246 H CK-MB (CK-2) 6.2 H Troponin T C-Reactive Protein Total Protein Albumin Urine WBC (Auto) Urine Creatinine Salicylates Miscellaneous Test 05/05/17 05/05/17 05/05/17 05:20 05:20 05:20 WBC 33.9 H RBC 3.39 L Hgb 9.3 L Hct RDW 16.7 H Plt Count 712 H Seg Neuts % (Manual) 91.0 H Lymphocytes % (Manual) 1.0 L Seg Neutrophils # Man 30.8 H Lymphocytes # (Manual) 0.3 L Monocytes # (Manual) 1.5 H Eosinophils # (Manual) D-Dimer POC ABG pH POC ABG pCO2 POC ABG pO2 Sodium Potassium Chloride Carbon Dioxide 9 L* BUN 53 H Creatinine 5.4 H Glucose POC Glucose Lactic Acid Calcium 6.1 L D Ionized Calcium Phosphorus Magnesium ALT Alkaline Phosphatase Total Creatine Kinase 346 H CK-MB (CK-2) 8.2 H Troponin T C-Reactive Protein Total Protein Albumin Urine WBC (Auto) Urine Creatinine Salicylates Miscellaneous Test 05/05/17 05/05/17 05/05/17 10:43 17:45 17:45 WBC RBC Hgb 8.8 L Hct RDW Plt Count Seg Neuts % (Manual) Lymphocytes % (Manual) Seg Neutrophils # Man Lymphocytes # (Manual) Monocytes # (Manual) Eosinophils # (Manual) D-Dimer POC ABG pH 6.872 L POC ABG pCO2 POC ABG pO2 120 H Sodium Potassium Chloride Carbon Dioxide BUN Creatinine Glucose POC Glucose Lactic Acid Calcium Ionized Calcium 3.5 L Phosphorus Magnesium ALT Alkaline Phosphatase Total Creatine Kinase CK-MB (CK-2) Troponin T C-Reactive Protein Total Protein Albumin Urine WBC (Auto) Urine Creatinine Salicylates Miscellaneous Test 05/05/17 05/05/17 05/05/17 17:45 20:58 Unknown WBC RBC Hgb 9.0 L Hct 29.8 L RDW Plt Count Seg Neuts % (Manual) Lymphocytes % (Manual) Seg Neutrophils # Man Lymphocytes # (Manual) Monocytes # (Manual) Eosinophils # (Manual) D-Dimer POC ABG pH POC ABG pCO2 POC ABG pO2 Sodium Potassium Chloride Carbon Dioxide BUN Creatinine Glucose POC Glucose Lactic Acid Calcium Ionized Calcium Phosphorus 6.20 H Magnesium 1.20 L ALT Alkaline Phosphatase Total Creatine Kinase CK-MB (CK-2) Troponin T C-Reactive Protein Total Protein Albumin Urine WBC (Auto) Urine Creatinine 28.0 H Salicylates Miscellaneous Test 05/06/17 05/06/17 05/06/17 05:09 05:23 07:55 WBC RBC Hgb Hct RDW Plt Count Seg Neuts % (Manual) Lymphocytes % (Manual) Seg Neutrophils # Man Lymphocytes # (Manual) Monocytes # (Manual) Eosinophils # (Manual) D-Dimer POC ABG pH 7.029 L 7.060 L POC ABG pCO2 54.8 H 48.6 H POC ABG pO2 74 L 43 L Sodium Potassium 3.5 L Chloride Carbon Dioxide 18 L D BUN 44 H Creatinine 3.5 H Glucose 252 H POC Glucose Lactic Acid Calcium 5.8 L* Ionized Calcium Phosphorus Magnesium ALT Alkaline Phosphatase Total Creatine Kinase CK-MB (CK-2) Troponin T C-Reactive Protein Total Protein Albumin Urine WBC (Auto) Urine Creatinine Salicylates Miscellaneous Test 05/06/17 05/06/17 05/06/17 07:55 15:28 17:30 WBC RBC Hgb Hct RDW Plt Count Seg Neuts % (Manual) Lymphocytes % (Manual) Seg Neutrophils # Man Lymphocytes # (Manual) Monocytes # (Manual) Eosinophils # (Manual) D-Dimer POC ABG pH 7.066 L POC ABG pCO2 80.9 H POC ABG pO2 65 L Sodium Potassium Chloride Carbon Dioxide BUN Creatinine Glucose POC Glucose Lactic Acid Calcium Ionized Calcium Phosphorus Magnesium ALT Alkaline Phosphatase Total Creatine Kinase CK-MB (CK-2) Troponin T C-Reactive Protein 14.50 H Total Protein Albumin Urine WBC (Auto) Urine Creatinine Salicylates Miscellaneous Test Flexitest 1 H 05/06/17 05/06/17 05/07/17 17:30 Unknown 10:18 WBC 39.2 H 32.9 H RBC 3.27 L Hgb 9.3 L Hct 30.2 L RDW 16.4 H 17.0 H Plt Count 645 H 467 H Seg Neuts % (Manual) Lymphocytes % (Manual) 11.0 L Seg Neutrophils # Man 21.2 H Lymphocytes # (Manual) Monocytes # (Manual) 2.0 H Eosinophils # (Manual) D-Dimer POC ABG pH POC ABG pCO2 POC ABG pO2 Sodium Potassium 3.4 L Chloride Carbon Dioxide BUN 41 H Creatinine 3.2 H Glucose 265 H POC Glucose Lactic Acid Calcium 6.7 L D Ionized Calcium Phosphorus Magnesium ALT Alkaline Phosphatase Total Creatine Kinase CK-MB (CK-2) Troponin T C-Reactive Protein Total Protein Albumin Urine WBC (Auto) Urine Creatinine Salicylates Miscellaneous Test 05/07/17 05/07/17 05/08/17 11:32 12:36 05:45 WBC 31.1 H RBC 3.41 L Hgb 9.8 L Hct RDW 16.9 H Plt Count Seg Neuts % (Manual) 96.0 H Lymphocytes % (Manual) 1.0 L Seg Neutrophils # Man 29.9 H Lymphocytes # (Manual) 0.3 L Monocytes # (Manual) Eosinophils # (Manual) D-Dimer POC ABG pH 7.290 L POC ABG pCO2 48.3 H POC ABG pO2 51 L Sodium 146 H Potassium 3.1 L Chloride 109.2 H Carbon Dioxide 20 L BUN 38 H Creatinine 2.7 H Glucose 213 H POC Glucose Lactic Acid Calcium 6.6 L Ionized Calcium Phosphorus Magnesium ALT Alkaline Phosphatase Total Creatine Kinase CK-MB (CK-2) Troponin T C-Reactive Protein Total Protein Albumin Urine WBC (Auto) Urine Creatinine Salicylates Miscellaneous Test 05/08/17 05/08/17 05/09/17 05:45 18:55 04:05 WBC 26.1 H RBC Hgb Hct RDW 17.6 H Plt Count Seg Neuts % (Manual) Lymphocytes % (Manual) 5.0 L Seg Neutrophils # Man 16.7 H Lymphocytes # (Manual) Monocytes # (Manual) Eosinophils # (Manual) D-Dimer POC ABG pH POC ABG pCO2 POC ABG pO2 Sodium 150 H Potassium Chloride 115.4 H 112.2 H Carbon Dioxide 20 L 18 L BUN 39 H 45 H Creatinine 2.4 H 2.3 H Glucose 160 H 219 H POC Glucose Lactic Acid Calcium 6.6 L 7.2 L Ionized Calcium Phosphorus Magnesium 1.40 L ALT 6 L Alkaline Phosphatase Total Creatine Kinase CK-MB (CK-2) Troponin T C-Reactive Protein Total Protein 4.1 L D Albumin 2.0 L Urine WBC (Auto) Urine Creatinine Salicylates Miscellaneous Test 05/09/17 05/09/17 05/09/17 04:05 05:15 05:45 WBC RBC Hgb Hct RDW Plt Count Seg Neuts % (Manual) Lymphocytes % (Manual) Seg Neutrophils # Man Lymphocytes # (Manual) Monocytes # (Manual) Eosinophils # (Manual) D-Dimer POC ABG pH POC ABG pCO2 POC ABG pO2 Sodium 130 L D Potassium 3.4 L D Chloride 94.6 L Carbon Dioxide 19 L BUN 39 H Creatinine 2.1 H Glucose 549 H* 189 H POC Glucose 181 H Lactic Acid Calcium 6.6 L Ionized Calcium Phosphorus Magnesium ALT 6 L Alkaline Phosphatase 31 L Total Creatine Kinase CK-MB (CK-2) Troponin T C-Reactive Protein Total Protein 3.5 L Albumin 2.0 L Urine WBC (Auto) Urine Creatinine Salicylates Miscellaneous Test 05/09/17 05/09/17 05/09/17 08:03 11:08 16:15 WBC RBC Hgb Hct RDW Plt Count Seg Neuts % (Manual) Lymphocytes % (Manual) Seg Neutrophils # Man Lymphocytes # (Manual) Monocytes # (Manual) Eosinophils # (Manual) D-Dimer POC ABG pH POC ABG pCO2 POC ABG pO2 Sodium Potassium Chloride 107.8 H Carbon Dioxide 21 L BUN 43 H Creatinine 2.4 H Glucose 195 H POC Glucose 299 H 111 H Lactic Acid Calcium 7.1 L Ionized Calcium Phosphorus Magnesium ALT Alkaline Phosphatase Total Creatine Kinase CK-MB (CK-2) Troponin T C-Reactive Protein Total Protein 3.9 L Albumin 2.3 L Urine WBC (Auto) Urine Creatinine Salicylates Miscellaneous Test 05/09/17 05/10/17 05/10/17 23:05 05:00 05:00 WBC 20.9 H RBC 3.53 L Hgb Hct RDW 17.3 H Plt Count Seg Neuts % (Manual) 72.0 H Lymphocytes % (Manual) 8.0 L Seg Neutrophils # Man 15.0 H Lymphocytes # (Manual) Monocytes # (Manual) Eosinophils # (Manual) D-Dimer POC ABG pH POC ABG pCO2 POC ABG pO2 Sodium 135 L D Potassium 3.2 L Chloride Carbon Dioxide 21 L BUN 45 H Creatinine 2.2 H Glucose 308 H POC Glucose 336 H Lactic Acid Calcium 7.1 L Ionized Calcium Phosphorus Magnesium ALT 5 L Alkaline Phosphatase 30 L Total Creatine Kinase CK-MB (CK-2) Troponin T C-Reactive Protein Total Protein 3.8 L Albumin 2.1 L Urine WBC (Auto) Urine Creatinine Salicylates Miscellaneous Test 05/10/17 05/10/17 05/10/17 07:28 11:36 16:03 WBC RBC Hgb Hct RDW Plt Count Seg Neuts % (Manual) Lymphocytes % (Manual) Seg Neutrophils # Man Lymphocytes # (Manual) Monocytes # (Manual) Eosinophils # (Manual) D-Dimer POC ABG pH POC ABG pCO2 POC ABG pO2 Sodium Potassium Chloride Carbon Dioxide BUN Creatinine Glucose POC Glucose 154 H 184 H 162 H Lactic Acid Calcium Ionized Calcium Phosphorus Magnesium ALT Alkaline Phosphatase Total Creatine Kinase CK-MB (CK-2) Troponin T C-Reactive Protein Total Protein Albumin Urine WBC (Auto) Urine Creatinine Salicylates Miscellaneous Test 05/10/17 05/11/17 05/11/17 21:13 06:50 06:50 WBC 24.4 H RBC Hgb Hct RDW 17.4 H Plt Count Seg Neuts % (Manual) Lymphocytes % (Manual) 5.0 L Seg Neutrophils # Man 16.3 H Lymphocytes # (Manual) Monocytes # (Manual) 1.0 H Eosinophils # (Manual) D-Dimer POC ABG pH POC ABG pCO2 POC ABG pO2 Sodium Potassium 3.4 L Chloride Carbon Dioxide BUN 50 H Creatinine 2.8 H Glucose 131 H POC Glucose 188 H Lactic Acid Calcium 7.6 L Ionized Calcium Phosphorus Magnesium ALT < 5 L Alkaline Phosphatase 25 L Total Creatine Kinase CK-MB (CK-2) Troponin T C-Reactive Protein Total Protein 3.6 L Albumin 2.0 L Urine WBC (Auto) Urine Creatinine Salicylates Miscellaneous Test 05/11/17 05/11/17 05/11/17 09:33 11:45 15:46 WBC RBC Hgb Hct RDW Plt Count Seg Neuts % (Manual) Lymphocytes % (Manual) Seg Neutrophils # Man Lymphocytes # (Manual) Monocytes # (Manual) Eosinophils # (Manual) D-Dimer POC ABG pH POC ABG pCO2 POC ABG pO2 Sodium Potassium Chloride Carbon Dioxide BUN Creatinine Glucose POC Glucose 140 H 157 H 137 H Lactic Acid Calcium Ionized Calcium Phosphorus Magnesium ALT Alkaline Phosphatase Total Creatine Kinase CK-MB (CK-2) Troponin T C-Reactive Protein Total Protein Albumin Urine WBC (Auto) Urine Creatinine Salicylates Miscellaneous Test 05/11/17 05/11/17 05/12/17 17:50 20:58 05:00 WBC 23.1 H RBC 3.59 L Hgb Hct RDW 17.1 H Plt Count Seg Neuts % (Manual) 94.0 H Lymphocytes % (Manual) 0 L Seg Neutrophils # Man 21.7 H Lymphocytes # (Manual) 0.0 L Monocytes # (Manual) Eosinophils # (Manual) D-Dimer POC ABG pH POC ABG pCO2 POC ABG pO2 Sodium Potassium Chloride Carbon Dioxide BUN Creatinine Glucose POC Glucose 155 H Lactic Acid Calcium Ionized Calcium Phosphorus Magnesium ALT Alkaline Phosphatase Total Creatine Kinase CK-MB (CK-2) Troponin T C-Reactive Protein Total Protein Albumin Urine WBC (Auto) 27.0 H Urine Creatinine Salicylates Miscellaneous Test 05/12/17 05/12/17 05/12/17 05:00 08:28 11:28 WBC RBC Hgb Hct RDW Plt Count Seg Neuts % (Manual) Lymphocytes % (Manual) Seg Neutrophils # Man Lymphocytes # (Manual) Monocytes # (Manual) Eosinophils # (Manual) D-Dimer POC ABG pH POC ABG pCO2 POC ABG pO2 Sodium Potassium Chloride 111.7 H Carbon Dioxide BUN 53 H Creatinine 2.8 H Glucose 102 H POC Glucose 130 H 171 H Lactic Acid Calcium 6.9 L Ionized Calcium Phosphorus Magnesium ALT < 5 L Alkaline Phosphatase 25 L Total Creatine Kinase CK-MB (CK-2) Troponin T C-Reactive Protein Total Protein 3.3 L Albumin 1.7 L Urine WBC (Auto) Urine Creatinine Salicylates Miscellaneous Test 05/12/17 05/13/17 05/13/17 22:20 06:54 06:54 WBC 20.8 H RBC 3.17 L Hgb 9.2 L Hct 28.9 L RDW 17.7 H Plt Count Seg Neuts % (Manual) 93.0 H Lymphocytes % (Manual) 1.0 L Seg Neutrophils # Man 19.3 H Lymphocytes # (Manual) 0.2 L Monocytes # (Manual) Eosinophils # (Manual) 0.6 H D-Dimer POC ABG pH POC ABG pCO2 POC ABG pO2 Sodium Potassium 3.3 L Chloride 110.0 H Carbon Dioxide 20 L BUN 48 H Creatinine 2.8 H Glucose 119 H POC Glucose 179 H Lactic Acid Calcium 7.4 L Ionized Calcium Phosphorus Magnesium ALT Alkaline Phosphatase Total Creatine Kinase CK-MB (CK-2) Troponin T C-Reactive Protein Total Protein Albumin Urine WBC (Auto) Urine Creatinine Salicylates Miscellaneous Test 05/13/17 05/13/17 05/13/17 07:35 12:52 23:32 WBC RBC Hgb Hct RDW Plt Count Seg Neuts % (Manual) Lymphocytes % (Manual) Seg Neutrophils # Man Lymphocytes # (Manual) Monocytes # (Manual) Eosinophils # (Manual) D-Dimer POC ABG pH POC ABG pCO2 POC ABG pO2 Sodium Potassium Chloride Carbon Dioxide BUN Creatinine Glucose POC Glucose 139 H 159 H 179 H Lactic Acid Calcium Ionized Calcium Phosphorus Magnesium ALT Alkaline Phosphatase Total Creatine Kinase CK-MB (CK-2) Troponin T C-Reactive Protein Total Protein Albumin Urine WBC (Auto) Urine Creatinine Salicylates Miscellaneous Test 05/14/17 05/14/17 05/14/17 04:00 05:00 07:30 WBC 19.3 H RBC 3.16 L Hgb 9.1 L Hct 29.1 L RDW 17.9 H Plt Count Seg Neuts % (Manual) 87.0 H Lymphocytes % (Manual) 2.0 L Seg Neutrophils # Man 16.8 H Lymphocytes # (Manual) 0.4 L Monocytes # (Manual) 1.0 H Eosinophils # (Manual) 0.6 H D-Dimer POC ABG pH POC ABG pCO2 POC ABG pO2 Sodium 146 H Potassium Chloride 114.7 H Carbon Dioxide 19 L BUN 43 H Creatinine 2.5 H Glucose POC Glucose 110 H Lactic Acid Calcium 7.5 L Ionized Calcium Phosphorus Magnesium ALT Alkaline Phosphatase Total Creatine Kinase CK-MB (CK-2) Troponin T C-Reactive Protein Total Protein Albumin Urine WBC (Auto) Urine Creatinine Salicylates Miscellaneous Test 05/14/17 05/14/17 05/14/17 11:43 15:44 20:10 WBC RBC Hgb Hct RDW Plt Count Seg Neuts % (Manual) Lymphocytes % (Manual) Seg Neutrophils # Man Lymphocytes # (Manual) Monocytes # (Manual) Eosinophils # (Manual) D-Dimer POC ABG pH POC ABG pCO2 POC ABG pO2 Sodium Potassium Chloride Carbon Dioxide BUN Creatinine Glucose POC Glucose 169 H 201 H 223 H Lactic Acid Calcium Ionized Calcium Phosphorus Magnesium ALT Alkaline Phosphatase Total Creatine Kinase CK-MB (CK-2) Troponin T C-Reactive Protein Total Protein Albumin Urine WBC (Auto) Urine Creatinine Salicylates Miscellaneous Test 05/15/17 05/15/17 05/15/17 06:10 08:50 12:57 WBC RBC Hgb Hct RDW Plt Count Seg Neuts % (Manual) Lymphocytes % (Manual) Seg Neutrophils # Man Lymphocytes # (Manual) Monocytes # (Manual) Eosinophils # (Manual) D-Dimer POC ABG pH POC ABG pCO2 POC ABG pO2 Sodium Potassium Chloride 113.6 H Carbon Dioxide 18 L BUN 43 H Creatinine 2.7 H Glucose 123 H POC Glucose 204 H 127 H Lactic Acid Calcium 7.2 L Ionized Calcium Phosphorus Magnesium ALT Alkaline Phosphatase Total Creatine Kinase CK-MB (CK-2) Troponin T C-Reactive Protein Total Protein Albumin Urine WBC (Auto) Urine Creatinine Salicylates Miscellaneous Test 05/15/17 05/15/17 05/15/17 17:43 21:29 23:51 WBC RBC Hgb Hct RDW Plt Count Seg Neuts % (Manual) Lymphocytes % (Manual) Seg Neutrophils # Man Lymphocytes # (Manual) Monocytes # (Manual) Eosinophils # (Manual) D-Dimer POC ABG pH 6.983 L POC ABG pCO2 67.5 H POC ABG pO2 Sodium Potassium Chloride Carbon Dioxide BUN Creatinine Glucose POC Glucose 121 H 129 H Lactic Acid Calcium Ionized Calcium Phosphorus Magnesium ALT Alkaline Phosphatase Total Creatine Kinase CK-MB (CK-2) Troponin T C-Reactive Protein Total Protein Albumin Urine WBC (Auto) Urine Creatinine Salicylates Miscellaneous Test 05/16/17 05/16/17 05/16/17 00:15 06:00 07:46 WBC RBC Hgb Hct RDW Plt Count Seg Neuts % (Manual) Lymphocytes % (Manual) Seg Neutrophils # Man Lymphocytes # (Manual) Monocytes # (Manual) Eosinophils # (Manual) D-Dimer POC ABG pH POC ABG pCO2 POC ABG pO2 Sodium Potassium Chloride 114.2 H Carbon Dioxide 17 L BUN 44 H Creatinine 3.3 H Glucose 118 H POC Glucose 135 H Lactic Acid 0.60 L Calcium 7.5 L Ionized Calcium Phosphorus Magnesium ALT Alkaline Phosphatase Total Creatine Kinase CK-MB (CK-2) Troponin T C-Reactive Protein Total Protein Albumin Urine WBC (Auto) Urine Creatinine Salicylates Miscellaneous Test Assessment and Plan 61 y/o female with severe C. Diff colitis, sepsis with shock and now encephalopathy, likely metabolic requiring mechanical ventilation. 1. Will intubate now, spoke with Son and Daughter on the phone separately. Patient is a full code and has no living will. I explained that her clinical status has worsened very quickly. Most likely this is from sepsis. Patient is currently in shock. Will use RSI for intubation. Monitor BP. May need second pressor. Continue IV abx therapy. Overall prognosis appears extremely guarded to POOR. CCT 31
[2017-05-16] MEDS ORDERED: ARTIFICIAL TEARS OPHTH OINT OU PRN (08:34)
[2017-05-16] MEDS ORDERED: VASELINE LIP THERAPY TP PRN (08:34)
[2017-05-16] MEDS ORDERED: NACL 0.9% 1000 ML 1,000 ML IV ONE (09:02)
[2017-05-16 09:44] LABS: ISTAT Base Excess -16; ISTAT HCO3 13.8; ISTAT PCO2 46.3 (35-45); ISTAT PH 7.081 (7.35-7.45); ISTAT PO2 107 (80-105); ISTAT SO2 95; ISTAT TCO2 15
--- NOTE | 2017-05-16 09:55 | XRay Report ---
Portable chest: Hypoxemia, pleural effusions. An endotracheal tube tip is located just below the clavicles. The tip of a left PICC line is in the mid SVC region. Bilateral pulmonary opacities consistent with pleural effusions. The visualized lungs are generally clear with no vascular congestion and a normal-sized heart. Compared to prior examination of May 10 the endotracheal tube is new and the pleural effusions are relatively the same. Impression: Persistent pleural effusions of indeterminate.
[2017-05-16] MEDS ORDERED: Vasostrict 20 UNIT in NACL 0.9% 100 ML IV SCH (10:00)
[2017-05-16] MEDS: NACL 0.9% 1000 ML 1,000 ML IV SCH (10:20)
[2017-05-16] MEDS: PEPCID PO SCH (10:21)
[2017-05-16] MEDS: HEPARIN SUB-Q SCH ×2 (10:28→21:59)
[2017-05-16 10:35] LABS: Mean Corpuscular HGB Conc 31 % (30-34); Mean Corpuscular Hemoglobin 29 pg (28-32); Mean Corpuscular Volume 94 fl (79-97); Platelet Count 398 K/mm3 (140-440); Red Blood Count 3.08 M/mm3 (3.65-5.03); Red Cell Distribution Width 18.8 % (13.2-15.2); White Blood Count 18.6 K/mm3 (4.5-11.0)
[2017-05-16 10:53] LABS: Albumin 2.9 g/dL (3.9-5); Albumin/Globulin Ratio 2.2 %; Alkaline Phosphatase 17 units/L (35-129); Anion Gap 19 mmol/L; BUN/Creatinine Ratio 15; Bilirubin,Total < 0.20 mg/dL (0.1-1.2); Blood Urea Nitrogen 44 mg/dL (7-17); Calcium 7.3 mg/dL (8.4-10.2); Carbon Dioxide 14 mmol/L (22-30); Chloride 114.9 mmol/L (98-107); Glucose 115 mg/dL (65-100); Potassium 4.2 mmol/L (3.6-5.0); Sodium 144 mmol/L (137-145); Total Protein 4.2 g/dL (6.3-8.2)
--- NOTE | 2017-05-16 10:55 | Progress Note ---
Subjective Principal diagnosis: Septic shock,C. diff colitis Interval history: Patient was seen today for follow-up on multiple renal-related issues patient was transferred to ICU currently intubated events of 24 hours noted Creatinine worsened also noted to be acidotic Lab results were reviewed Social history: Reviewed Medication: Reviewed Family history: Reviewed Allergies: Reviewed Physical examination General; no acute distress HEENT: Mild pallor no icterus oral mucosa moist Neck: Supple soft no jugular venous distention Chest: Bilateral clear to auscultation anteriorly posteriorly a few faint basilar crackles at the lung bases no wheezes Cardiovascular: S1-S2 heart no S3-S4 Abdomen: Soft nontender no voluntary guarding rigidity rebound no organomegaly no masses no suprapubic fullness no CVA tenderness Extremity: Minimal edema dry skin no tenderness in the Area Derm: Dry skin Assessment and plan Acute kidney injury patient admitted with colitis sepsis-like picture with metabolic acidosis volume loss;patient does need IV fluid close follow-up renal function Currently intubated due to respiratory failure at high risk for progression of renal failure over time may need renal replacement therapy to monitor closely Metabolic acidosis: To monitor and follow Anemia and renal failure: To monitor and follow Overall renal prognosis remains guarded at this time We'll continue to follow make recommendation from renal standpoint Patient was transferred back to ICU with septic shock and metabolic acidosis History of underlying COPD, hypertension, hyperlipidemia Current hemoglobin 9.0 platelet count 398,000, bicarbonate 14. 44 creatinine 3.0 phosphorus 5.4 Likely patient may require renal replacement therapy tomorrow to be discussed and addressed We'll continue to follow and make recommendation from renal standpoint Objective - Vital Signs Vital signs: Vital Signs - 12hr 05/15/17 05/15/17 05/16/17 23:25 23:31 00:00 Temperature Pulse Rate 81 80 78 Pulse Rate [ Apical] Pulse Rate [ From Monitor] Respiratory 19 26 H 20 Rate Blood Pressure 85/47 O2 Sat by Pulse 99 Oximetry 05/16/17 05/16/17 05/16/17 00:30 00:40 01:00 Temperature Pulse Rate 74 78 Pulse Rate [ 77 Apical] Pulse Rate [ From Monitor] Respiratory 18 22 19 Rate Blood Pressure 98/43 100/45 O2 Sat by Pulse 100 100 Oximetry 05/16/17 05/16/17 05/16/17 01:30 02:00 02:30 Temperature Pulse Rate 72 76 82 Pulse Rate [ Apical] Pulse Rate [ From Monitor] Respiratory 23 24 24 Rate Blood Pressure 105/44 106/51 105/56 O2 Sat by Pulse 100 97 Oximetry 05/16/17 05/16/17 05/16/17 03:00 03:30 04:00 Temperature 96.0 F L Pulse Rate 85 83 83 Pulse Rate [ Apical] Pulse Rate [ From Monitor] Respiratory 22 30 H 28 H Rate Blood Pressure 108/57 101/44 99/47 O2 Sat by Pulse 96 100 Oximetry 05/16/17 05/16/17 05/16/17 04:30 04:45 05:00 Temperature Pulse Rate 80 80 79 Pulse Rate [ Apical] Pulse Rate [ From Monitor] Respiratory 28 H 30 H 29 H Rate Blood Pressure 90/37 90/37 86/42 O2 Sat by Pulse 98 98 98 Oximetry 05/16/17 05/16/17 05/16/17 05:15 05:30 05:45 Temperature Pulse Rate 79 78 76 Pulse Rate [ Apical] Pulse Rate [ From Monitor] Respiratory 29 H 31 H 30 H Rate Blood Pressure 87/41 86/41 81/32 O2 Sat by Pulse 98 99 99 Oximetry 05/16/17 05/16/17 05/16/17 06:01 06:15 06:19 Temperature Pulse Rate 76 75 Pulse Rate [ Apical] Pulse Rate [ From Monitor] Respiratory 29 H 30 H 28 H Rate Blood Pressure 95/27 95/27 O2 Sat by Pulse 100 100 100 Oximetry 05/16/17 05/16/17 05/16/17 06:30 06:45 07:00 Temperature Pulse Rate 75 74 73 Pulse Rate [ Apical] Pulse Rate [ From Monitor] Respiratory 28 H 29 H 28 H Rate Blood Pressure 77/37 77/37 75/35 O2 Sat by Pulse 99 99 Oximetry 05/16/17 05/16/17 05/16/17 07:15 07:30 07:31 Temperature Pulse Rate 73 73 Pulse Rate [ 74 Apical] Pulse Rate [ 74 From Monitor] Respiratory 29 H 30 H 28 H Rate Blood Pressure 74/35 82/31 O2 Sat by Pulse 99 100 100 Oximetry 05/16/17 05/16/17 05/16/17 07:44 07:45 07:58 Temperature 98.8 F Pulse Rate 74 Pulse Rate [ Apical] Pulse Rate [ From Monitor] Respiratory 29 H Rate Blood Pressure 95/40 O2 Sat by Pulse 96 100 Oximetry 05/16/17 05/16/17 05/16/17 08:00 08:15 08:30 Temperature Pulse Rate 75 73 74 Pulse Rate [ Apical] Pulse Rate [ From Monitor] Respiratory 32 H 26 H 31 H Rate Blood Pressure 90/34 84/29 101/41 O2 Sat by Pulse 99 100 97 Oximetry 05/16/17 05/16/17 05/16/17 08:45 09:00 09:09 Temperature Pulse Rate 95 H 78 73 Pulse Rate [ Apical] Pulse Rate [ From Monitor] Respiratory 11 L 22 Rate Blood Pressure 101/41 52/30 82/48 O2 Sat by Pulse 100 98 100 Oximetry 05/16/17 05/16/17 05/16/17 09:15 09:31 09:45 Temperature Pulse Rate 70 67 66 Pulse Rate [ Apical] Pulse Rate [ From Monitor] Respiratory 22 22 25 H Rate Blood Pressure 81/36 81/36 98/54 O2 Sat by Pulse 87 99 Oximetry 05/16/17 10:30 Temperature Pulse Rate 80 Pulse Rate [ Apical] Pulse Rate [ From Monitor] Respiratory Rate Blood Pressure 100/60 O2 Sat by Pulse 98 Oximetry - Lab 05/16/17 10:20 05/16/17 10:20 Most recent lab results Calcium 7.3 mg/dL (8.4-10.2) L 05/16/17 10:20 Phosphorus 5.40 mg/dL (2.5-4.5) H 05/16/17 10:20 Magnesium 1.90 mg/dL (1.7-2.3) 05/16/17 10:20 Urine Creatinine 28.0 mg/dL (0.1-20.0) H 05/05/17 Unknown Urine Sodium 129 mmol/L 05/05/17 Unknown
[2017-05-16 11:11] LABS: Alanine Aminotransferase < 5 units/L (7-56)
[2017-05-16 11:41] LABS: Anisocytosis 1+; Basophils % (Manual) 0 % (0.0-1.8); Blastocytes % (Manual) 0 %; Eosinophils % (Manual) 0 % (0.0-4.3)
[2017-05-16 11:42] LABS: Acanthocytes Few; Burr Cells 1+; Diff Status Complete; Schistocytes Rare
[2017-05-16] MEDS: SODIUM BICARBONATE 150 MEQ in STERILE WATER 1,000 ML IV SCH (12:57)
--- NOTE | 2017-05-16 13:15 | Progress Note ---
Assessment and Plan Assessment and plan: 61-year-old female patient with severe sepsis/septic shock secondary to C. difficile colitis, transferred to ICU last night with acute respiratory failure intubated, septic shock on pressors --Acute hypoxic respiratory failure; intubated on ventilatory support, nebulizers, IV steroids, pulmonary following --Septic shock; on pressor, titrate blood pressures to more than 100, MAP more than 65 --Severe sepsis; secondary to C. difficile colitis, supportive care IV fluids, oral vancomycin, IV Flagyl, contact isolation,ID following --Leukocytosis; partly secondary to C. difficile colitis as well as sepsis, trending down --Acute kidney injury: worsening Creatinine , secondary to hypovolemia/pre renalazotemia, Gentle hydration, nephrology following --UTI; received empiric antibiotics for 3 days, cultures negative to date. --Metabolic acidosis; IV hydration, nephrology following --History of COPD with exacerbation; continue current nebulizers and IV antibiotics --Pulmonary hypertension on echo --Severe hypoalbuminemia/protein calorie Malnutrition; nutritional supplements and supportive care --DVT prophylaxis; heparin renal dose --CODE STATUS Plan of care discussed with the family members at the bedside Consults and recommendations noted and appreciated History Interval history: Patient suddenly went into respiratory failure last night, and severe septic shock Patient was transferred to ICU, evaluated by pulmonary critical, intubated the patient on ventilatory support, started on pressor On examination; patient is orally intubated on ventilatory support and sedated Vital signs reviewed, Hospitalist Physical - Constitutional Vitals: Temp Pulse Resp BP Pulse Ox 97.4 F L 80 25 H 100/60 98 05/16/17 12:00 05/16/17 10:30 05/16/17 09:45 05/16/17 10:30 05/16/17 10:30 General appearance: Present: severe distress, cachectic, other (chronically ill- looking, intubated on ventilatory support) - EENT Eyes: Present: PERRL, EOM intact - Neck Neck: Present: supple, normal ROM - Respiratory Respiratory effort: normal Respiratory: bilateral: diminished, negative: rales, rhonchi, wheezing - Cardiovascular Rhythm: regular Heart Sounds: Present: S1 & S2 - Extremities Extremities: no ischemia, pulses intact Peripheral Pulses: within normal limits - Abdominal General gastrointestinal: soft, non-tender, non-distended, normal bowel sounds - Integumentary Integumentary: Present: clear, warm - Psychiatric Psychiatric: other (debate and sedated) - Neurologic Neurologic: other (intubated and sedated) Results - Labs CBC & Chem 7: 05/16/17 10:20 05/16/17 10:20 Labs: Laboratory Last Values WBC 18.6 K/mm3 (4.5-11.0) H 05/16/17 10:20 RBC 3.08 M/mm3 (3.65-5.03) L 05/16/17 10:20 Hgb 9.0 gm/dl (10.1-14.3) L 05/16/17 10:20 Hct 29.0 % (30.3-42.9) L 05/16/17 10:20 MCV 94 fl (79-97) 05/16/17 10:20 MCH 29 pg (28-32) 05/16/17 10:20 MCHC 31 % (30-34) 05/16/17 10:20 RDW 18.8 % (13.2-15.2) H 05/16/17 10:20 Plt Count 398 K/mm3 (140-440) 05/16/17 10:20 Add Manual Diff Complete 05/16/17 10:20 Total Counted 100 05/16/17 10:20 Seg Neutrophils % Mobile Mechanic 05/11/17 06:50 Seg Neuts % (Manual) 61.0 % (40.0-70.0) 05/16/17 10:20 Band Neutrophils % 19.0 % 05/16/17 10:20 Lymphocytes % (Manual) 5.0 % (13.4-35.0) L 05/16/17 10:20 Reactive Lymphs % (Man) 0 % 05/16/17 10:20 Monocytes % (Manual) 7.0 % (0.0-7.3) 05/16/17 10:20 Eosinophils % (Manual) 0 % (0.0-4.3) 05/16/17 10:20 Basophils % (Manual) 0 % (0.0-1.8) 05/16/17 10:20 Metamyelocytes % 7.0 % 05/16/17 10:20 Myelocytes % 1.0 % 05/16/17 10:20 Promyelocytes % 0 % 05/16/17 10:20 Blast Cells % 0 % 05/16/17 10:20 Nucleated RBC % Not Reportable 05/16/17 10:20 Seg Neutrophils # Man 11.3 K/mm3 (1.8-7.7) H 05/16/17 10:20 Band Neutrophils # 3.5 K/mm3 05/16/17 10:20 Lymphocytes # (Manual) 0.9 K/mm3 (1.2-5.4) L 05/16/17 10:20 Abs React Lymphs (Man) 0.0 K/mm3 05/16/17 10:20 Monocytes # (Manual) 1.3 K/mm3 (0.0-0.8) H 05/16/17 10:20 Eosinophils # (Manual) 0.0 K/mm3 (0.0-0.4) 05/16/17 10:20 Basophils # (Manual) 0.0 K/mm3 (0.0-0.1) 05/16/17 10:20 Metamyelocytes # 1.3 K/mm3 05/16/17 10:20 Myelocytes # 0.2 K/mm3 05/16/17 10:20 Promyelocytes # 0.0 K/mm3 05/16/17 10:20 Blast Cells # 0.0 K/mm3 05/16/17 10:20 WBC Morphology Not Reportable 05/16/17 10:20 Hypersegmented Neuts Not Reportable 05/16/17 10:20 Hyposegmented Neuts Not Reportable 05/16/17 10:20 Hypogranular Neuts Not Reportable 05/16/17 10:20 Smudge Cells Not Reportable 05/16/17 10:20 Toxic Granulation Not Reportable 05/16/17 10:20 Toxic Vacuolation Not Reportable 05/16/17 10:20 Dohle Bodies Not Reportable 05/16/17 10:20 Pelger-Huet Anomaly Not Reportable 05/16/17 10:20 Neisha Rods Not Reportable 05/16/17 10:20 Platelet Estimate Appears normal 05/16/17 10:20 Clumped Platelets Not Reportable 05/16/17 10:20 Plt Clumps, EDTA Not Reportable 05/16/17 10:20 Large Platelets Not Reportable 05/16/17 10:20 Giant Platelets Not Reportable 05/16/17 10:20 Platelet Satelliting Not Reportable 05/16/17 10:20 Plt Morphology Comment Not Reportable 05/16/17 10:20 RBC Morphology Not Reportable 05/16/17 10:20 Dimorphic RBCs Not Reportable 05/16/17 10:20 Polychromasia Not Reportable 05/16/17 10:20 Hypochromasia Not Reportable 05/16/17 10:20 Poikilocytosis Not Reportable 05/16/17 10:20 Anisocytosis 1+ 05/16/17 10:20 Microcytosis Not Reportable 05/16/17 10:20 Macrocytosis Not Reportable 05/16/17 10:20 Spherocytes Not Reportable 05/16/17 10:20 Pappenheimer Bodies Not Reportable 05/16/17 10:20 Sickle Cells Not Reportable 05/16/17 10:20 Target Cells Not Reportable 05/16/17 10:20 Tear Drop Cells Not Reportable 05/16/17 10:20 Ovalocytes Not Reportable 05/16/17 10:20 Helmet Cells Not Reportable 05/16/17 10:20 [place] Bodies Not Reportable 05/16/17 10:20 [place] Rings Not Reportable 05/16/17 10:20 Damián Cells 1+ 05/16/17 10:20 Bite Cells Not Reportable 05/16/17 10:20 Crenated Cell Not Reportable 05/16/17 10:20 Elliptocytes Not Reportable 05/16/17 10:20 Acanthocytes (Spur) Few 05/16/17 10:20 Rouleaux Not Reportable 05/16/17 10:20 Hemoglobin C Crystals Not Reportable 05/16/17 10:20 Schistocytes Rare 05/16/17 10:20 Malaria parasites Not Reportable 05/16/17 10:20 Herve Bodies Not Reportable 05/16/17 10:20 Hem Pathologist Commnt No 05/16/17 10:20 D-Dimer 8441.57 ng/mlDDU (0-234) H 05/04/17 Unknown POC ABG pH 7.081 (7.35-7.45) L 05/16/17 09:38 POC ABG pCO2 46.3 (35-45) H 05/16/17 09:38 POC ABG pO2 107 (80-105) H 05/16/17 09:38 POC ABG HCO3 13.8 05/16/17 09:38 POC ABG Total CO2 15 05/16/17 09:38 POC ABG O2 Sat 95 05/16/17 09:38 POC ABG Base Excess -16 05/16/17 09:38 FiO2 35 % 05/16/17 09:38 Sodium 144 mmol/L (137-145) 05/16/17 10:20 Potassium 4.2 mmol/L (3.6-5.0) 05/16/17 10:20 Chloride 114.9 mmol/L (98-107) H 05/16/17 10:20 Carbon Dioxide 14 mmol/L (22-30) L 05/16/17 10:20 Anion Gap 19 mmol/L 05/16/17 10:20 BUN 44 mg/dL (7-17) H 05/16/17 10:20 Creatinine 3.0 mg/dL (0.7-1.2) H 05/16/17 10:20 Estimated GFR 19 ml/min 05/16/17 10:20 BUN/Creatinine Ratio 15 % 05/16/17 10:20 Glucose 115 mg/dL (65-100) H 05/16/17 10:20 POC Glucose 135 (70-105) H 05/16/17 07:46 Lactic Acid 0.60 mmol/L (0.7-2.0) L 05/16/17 00:15 Calcium 7.3 mg/dL (8.4-10.2) L 05/16/17 10:20 Ionized Calcium 3.5 mg/dL (4.8-5.6) L 05/05/17 17:45 Phosphorus 5.40 mg/dL (2.5-4.5) H 05/16/17 10:20 Magnesium 1.90 mg/dL (1.7-2.3) 05/16/17 10:20 Total Bilirubin < 0.20 mg/dL (0.1-1.2) 05/16/17 10:20 AST 14 units/L (5-40) 05/16/17 10:20 ALT < 5 units/L (7-56) L 05/16/17 10:20 Alkaline Phosphatase 17 units/L (35-129) L 05/16/17 10:20 Total Creatine Kinase 346 units/L (30-135) H 05/05/17 05:20 CK-MB (CK-2) 8.2 ng/mL (0.0-4.0) H 05/05/17 05:20 CK-MB (CK-2) Rel Index 2.3 (0-4) 05/05/17 05:20 Troponin T 0.027 ng/mL (0.00-0.029) 05/05/17 05:20 C-Reactive Protein 14.50 mg/dL (0.00-1.30) H 05/06/17 07:55 Total Protein 4.2 g/dL (6.3-8.2) L D 05/16/17 10:20 Albumin 2.9 g/dL (3.9-5) L 05/16/17 10:20 Albumin/Globulin Ratio 2.2 % 05/16/17 10:20 Triglycerides 149 mg/dL (2-149) 05/04/17 18:55 Cholesterol 185 mg/dL (50-199) 05/04/17 18:55 LDL Cholesterol Direct 103 mg/dL (50-130) 05/04/17 18:55 HDL Cholesterol 53 mg/dL (40-59) 05/04/17 18:55 Cholesterol/HDL Ratio 3.49 % 05/04/17 18:55 TSH 1.780 mlU/mL (0.270-4.200) 05/04/17 18:39 Urine Color Carol (Yellow) 05/11/17 17:50 Urine Turbidity Clear (Clear) 05/11/17 17:50 Urine pH 5.0 (5.0-7.0) 05/11/17 17:50 Ur Specific Catarina 1.016 (1.003-1.030) 05/11/17 17:50 Urine Protein 100 mg/dl mg/dL (Negative) 05/11/17 17:50 Urine Glucose (UA) Neg mg/dL (Negative) 05/11/17 17:50 Urine Ketones Neg mg/dL (Negative) 05/11/17 17:50 Urine Blood Mod (Negative) 05/11/17 17:50 Urine Nitrite Neg (Negative) 05/11/17 17:50 Urine Bilirubin Neg (Negative) 05/11/17 17:50 Urine Urobilinogen < 2.0 mg/dL (<2.0) 05/11/17 17:50 Ur Leukocyte Esterase Mod (Negative) 05/11/17 17:50 Urine WBC (Auto) 27.0 /HPF (0.0-6.0) H 05/11/17 17:50 Urine RBC (Auto) 15.0 /HPF (0.0-6.0) 05/11/17 17:50 U Epithel Cells (Auto) < 1.0 /HPF (0-13.0) 05/11/17 17:50 Urine Bacteria (Auto) 1+ /HPF (Negative) 05/11/17 17:50 Amorphous Crystals Few 05/11/17 17:50 Urine Mucus Few /HPF 05/11/17 17:50 Urine Creatinine 28.0 mg/dL (0.1-20.0) H 05/05/17 Unknown Urine Sodium 129 mmol/L 05/05/17 Unknown Urine Potassium 3.67 mmol/L 05/05/17 Unknown Urine Chloride 115.6 mmolL (110-250) 05/05/17 Unknown Salicylates 0.3 mg/dL (2.8-20.0) L 05/04/17 18:39 Urine Opiates Screen Presumptive negative 05/04/17 02:20 Urine Methadone Screen Presumptive negative 05/04/17 02:20 Acetaminophen < 15.0 ug/mL (10.0-30.0) 05/04/17 18:39 Ur Barbiturates Screen Presumptive negative 05/04/17 02:20 Ur Phencyclidine Scrn Presumptive negative 05/04/17 02:20 Ur Amphetamines Screen Presumptive negative 05/04/17 02:20 U Benzodiazepines Scrn Presumptive negative 05/04/17 02:20 Urine Cocaine Screen Presumptive negative 05/04/17 02:20 U Marijuana (THC) Screen Presumptive negative 05/04/17 02:20 Drugs of Abuse Note Disclamer 05/04/17 02:20 Plasma/Serum Alcohol < 0.01 gm% (0-0.07) 05/04/17 18:39 Miscellaneous Test Flexitest 1 H 05/06/17 17:30
--- NOTE | 2017-05-17 00:02 | XRay Report ---
FINAL REPORT PROCEDURE: XR ABDOMEN 1V AP TECHNIQUE: Abdominal radiograph, single supine AP view. HISTORY: FEEDING TUBE PLACEMEnt COMPARISON: No prior studies are available for comparison. FINDINGS: Bowel gas pattern:Nonobstructive. Masses or calcifications:None. Bony structures:No significant abnormality. Other:Nasogastric tube is terminating the stomach. An irregular retrocardiac density is identified. There is mild thickening of left pleural stripe IMPRESSION: Nasogastric tube is terminating in the stomach. Left retrocardiac density may represent atelectatic versus infiltrative changes of left lower lobe. There is also suggestion of mild left pleural effusion.
[2017-05-17] MEDS: FLAGYL 500 MG/100 ML 500 MG/100 ML BAG IV SCH ×5 (00:33→23:41)
[2017-05-17] MEDS: VANCOMYCIN PO PO SCH ×5 (00:35→23:37)
[2017-05-17] MEDS: NOVOLOG SUB-Q SCH ×5 (00:48→21:45)
[2017-05-17] MEDS: LEVOPHED 8 MG in NACL 0.9% 250ML 242 ML IV SCH ×2 (03:50→14:02)
[2017-05-17 04:22] LABS: ISTAT Base Excess -13; ISTAT HCO3 14.7; ISTAT PCO2 37.8 (35-45); ISTAT PH 7.199 (7.35-7.45); ISTAT PO2 107 (80-105); ISTAT SO2 97; ISTAT TCO2 16
[2017-05-17 05:26] LABS: Hematocrit 26.4 % (30.3-42.9); Hemoglobin 8.3 gm/dl (10.1-14.3); Mean Corpuscular HGB Conc 32 % (30-34); Mean Corpuscular Hemoglobin 29 pg (28-32); Mean Corpuscular Volume 91 fl (79-97); Platelet Count 417 K/mm3 (140-440); Red Blood Count 2.89 M/mm3 (3.65-5.03); Red Cell Distribution Width 18.2 % (13.2-15.2)
[2017-05-17 05:39] LABS: White Blood Count 21.9 K/mm3 (4.5-11.0)
[2017-05-17 05:39] LABS: Calcium 7.3 mg/dL (8.4-10.2); Chloride 111.7 mmol/L (98-107); Potassium 3.6 mmol/L (3.6-5.0)
[2017-05-17 06:51] LABS: Basophils % (Manual) 0 % (0.0-1.8); Blastocytes % (Manual) 0 %
[2017-05-17 06:52] LABS: Anisocytosis 1+; Burr Cells Few; Hypochromasia 1+; Ovalocytes Few; Poikilocytosis Few; Polychromasia Few; Schistocytes Rare
[2017-05-17 06:53] LABS: Diff Status Complete; Large Platelets Rare
--- NOTE | 2017-05-17 08:09 | Progress Note ---
Assessment and Plan 61-year-old female patient with severe sepsis/septic shock secondary to C. difficile colitis and on pressors. Intubated for acute respiratory and vent supported. -Acute hypoxic respiratory failure: Remains intubated on ventilatory support, nebulizers, IV steroids, Pulmonology following. Wean as tolerated per Pulm. -Septic shock: on pressor, To titrate to a MAP of than 65 or greater -Severe sepsis; secondary to C. difficile colitis, supportive care IV fluids, oral vancomycin, IV Flagyl, contact isolation,ID following -Leukocytosis; partly secondary to C. difficile colitis as well as sepsis, trending down -Acute kidney injury: worsening Creatinine , secondary to hypovolemia/pre renalazotemia, Gentle hydration, nephrology following -UTI; received empiric antibiotics for 3 days, cultures negative to date. -Metabolic acidosis; IV hydration, nephrology following -History of COPD with exacerbation; continue current nebulizers and IV antibiotics -Severe Pulmonary hypertension per echo with EF -Severe hypoalbuminemia/protein calorie Malnutrition; nutritional supplements and supportive care -DVT prophylaxis; heparin renal dose --CODE STATUS Plan of care discussed with the family members at the bedside Consults and recommendations noted and appreciated Subjective Date of service: 05/17/17 Principal diagnosis: Septic shock,C. diff colitis Interval history: Remain intubated with no new complaint. Opens eye to verbal command. Discussed with nursing staff. No over night event reported Objective - Constitutional Vitals: Vital Signs - 12hr 05/16/17 05/16/17 05/16/17 20:10 20:15 20:30 Temperature Pulse Rate 86 81 Respiratory 24 25 H 25 H Rate Blood Pressure 101/47 93/46 O2 Sat by Pulse 100 97 100 Oximetry 05/16/17 05/16/17 05/16/17 20:45 21:00 21:15 Temperature Pulse Rate 77 88 74 Respiratory 25 H 25 H 25 H Rate Blood Pressure 82/40 100/43 103/39 O2 Sat by Pulse 100 100 100 Oximetry 05/16/17 05/16/17 05/16/17 21:30 21:45 22:00 Temperature Pulse Rate 73 88 76 Respiratory 25 H 26 H 24 Rate Blood Pressure 99/36 99/36 106/49 O2 Sat by Pulse 100 100 100 Oximetry 05/16/17 05/16/17 05/16/17 22:15 22:30 22:45 Temperature Pulse Rate 76 78 82 Respiratory 25 H 25 H 24 Rate Blood Pressure 103/50 89/35 89/35 O2 Sat by Pulse 100 100 100 Oximetry 05/16/17 05/16/17 05/16/17 23:00 23:01 23:13 Temperature 98.2 F Pulse Rate 111 H 81 Respiratory 10 L 21 Rate Blood Pressure 120/40 120/40 O2 Sat by Pulse 99 100 Oximetry 05/16/17 05/16/17 05/16/17 23:15 23:25 23:31 Temperature Pulse Rate 81 81 79 Respiratory 25 H 25 H Rate Blood Pressure 107/58 107/58 108/48 O2 Sat by Pulse 100 100 100 Oximetry 05/16/17 05/17/17 05/17/17 23:45 00:00 00:01 Temperature Pulse Rate 93 H 102 H Respiratory 16 25 H 22 Rate Blood Pressure 108/48 115/58 O2 Sat by Pulse 100 100 100 Oximetry 05/17/17 05/17/17 05/17/17 00:15 00:30 00:45 Temperature Pulse Rate 103 H 83 80 Respiratory 25 H 22 25 H Rate Blood Pressure 115/58 128/69 141/60 O2 Sat by Pulse 100 100 100 Oximetry 05/17/17 05/17/17 05/17/17 01:00 01:15 01:30 Temperature Pulse Rate 79 100 H 79 Respiratory 25 H 22 25 H Rate Blood Pressure 129/57 139/62 132/58 O2 Sat by Pulse 100 100 100 Oximetry 05/17/17 05/17/17 05/17/17 01:45 02:00 02:15 Temperature Pulse Rate 81 82 82 Respiratory 21 18 24 Rate Blood Pressure 123/55 130/64 134/65 O2 Sat by Pulse 100 100 100 Oximetry 05/17/17 05/17/17 05/17/17 02:30 02:45 03:00 Temperature Pulse Rate 96 H 99 H Respiratory 21 25 H Rate Blood Pressure 135/57 140/61 124/60 O2 Sat by Pulse 100 100 100 Oximetry 05/17/17 05/17/17 05/17/17 03:15 03:19 03:25 Temperature 99.3 F Pulse Rate 90 98 H Respiratory 22 Rate Blood Pressure 134/61 134/61 O2 Sat by Pulse 100 100 Oximetry 05/17/17 05/17/17 05/17/17 03:30 03:45 04:00 Temperature Pulse Rate 73 79 72 Respiratory 25 H 16 21 Rate Blood Pressure 125/59 125/59 116/48 O2 Sat by Pulse 100 100 100 Oximetry 05/17/17 05/17/17 05/17/17 04:15 04:30 04:45 Temperature Pulse Rate 72 78 Respiratory 22 17 Rate Blood Pressure 121/46 131/53 138/53 O2 Sat by Pulse 100 100 100 Oximetry 05/17/17 05/17/17 05/17/17 05:01 05:15 05:30 Temperature Pulse Rate 126 H 88 83 Respiratory 22 20 21 Rate Blood Pressure 131/50 138/54 128/53 O2 Sat by Pulse 100 100 100 Oximetry 05/17/17 05/17/17 05/17/17 05:45 06:00 06:15 Temperature Pulse Rate 83 80 81 Respiratory 20 21 17 Rate Blood Pressure 113/56 129/60 124/58 O2 Sat by Pulse 100 100 100 Oximetry 05/17/17 05/17/17 05/17/17 06:30 06:45 07:00 Temperature Pulse Rate 83 82 82 Respiratory 21 20 19 Rate Blood Pressure 127/66 128/60 122/63 O2 Sat by Pulse 100 100 Oximetry 05/17/17 07:15 Temperature Pulse Rate 143 H Respiratory 21 Rate Blood Pressure 125/61 O2 Sat by Pulse 100 Oximetry General appearance: Present: no acute distress, other (intubatd and vent supported) - EENT Eyes: PERRL, EOM intact - Neck Neck: supple, normal ROM - Respiratory Respiratory effort: normal Respiratory: bilateral: diminished - Cardiovascular Rhythm: regular Heart Sounds: Present: S1 & S2. Absent: gallop, rub Extremities: pulses intact, No edema, normal color, Full ROM - Gastrointestinal General gastrointestinal: Present: soft, non-tender, non-distended, normal bowel sounds - Integumentary Integumentary: clear, warm, dry - Musculoskeletal Musculoskeletal: 1, strength equal bilaterally - Neurologic Neurologic: moves all extremities - Psychiatric Psychiatric: memory intact, appropriate mood/affect, intact judgment & insight - Labs CBC & Chem 7: 05/17/17 04:00 05/17/17 05:00 Labs: Abnormal lab results 05/16/17 05/16/17 05/16/17 Range/Units 09:38 10:20 10:20 WBC 18.6 H (4.5-11.0) K/mm3 RBC 3.08 L (3.65-5.03) M/mm3 Hgb 9.0 L (10.1-14.3) gm/dl Hct 29.0 L (30.3-42.9) % RDW 18.8 H (13.2-15.2) % Lymphocytes % (Manual) 5.0 L (13.4-35.0) % Seg Neutrophils # Man 11.3 H (1.8-7.7) K/mm3 Lymphocytes # (Manual) 0.9 L (1.2-5.4) K/mm3 Monocytes # (Manual) 1.3 H (0.0-0.8) K/mm3 POC ABG pH 7.081 L (7.35-7.45) POC ABG pCO2 46.3 H (35-45) POC ABG pO2 107 H (80-105) Chloride 114.9 H (98-107) mmol/L Carbon Dioxide 14 L (22-30) mmol/L BUN 44 H (7-17) mg/dL Creatinine 3.0 H (0.7-1.2) mg/dL Glucose 115 H (65-100) mg/dL Calcium 7.3 L (8.4-10.2) mg/dL Phosphorus 5.40 H (2.5-4.5) mg/dL ALT < 5 L (7-56) units/L Alkaline Phosphatase 17 L (35-129) units/L Total Protein 4.2 L D (6.3-8.2) g/dL Albumin 2.9 L (3.9-5) g/dL 05/17/17 05/17/17 05/17/17 Range/Units 03:44 04:00 05:00 WBC 21.9 H (4.5-11.0) K/mm3 RBC 2.89 L (3.65-5.03) M/mm3 Hgb 8.3 L (10.1-14.3) gm/dl Hct 26.4 L (30.3-42.9) % RDW 18.2 H (13.2-15.2) % Lymphocytes % (Manual) 7.0 L (13.4-35.0) % Seg Neutrophils # Man 15.3 H (1.8-7.7) K/mm3 Lymphocytes # (Manual) (1.2-5.4) K/mm3 Monocytes # (Manual) 1.5 H (0.0-0.8) K/mm3 POC ABG pH 7.199 L (7.35-7.45) POC ABG pCO2 (35-45) POC ABG pO2 107 H (80-105) Chloride 111.7 H (98-107) mmol/L Carbon Dioxide 16 L (22-30) mmol/L BUN 43 H (7-17) mg/dL Creatinine 3.4 H (0.7-1.2) mg/dL Glucose (65-100) mg/dL Calcium 7.3 L (8.4-10.2) mg/dL Phosphorus (2.5-4.5) mg/dL ALT (7-56) units/L Alkaline Phosphatase (35-129) units/L Total Protein (6.3-8.2) g/dL Albumin (3.9-5) g/dL
[2017-05-17] MEDS: SODIUM BICARBONATE 150 MEQ in STERILE WATER 1,000 ML IV SCH (08:42)
[2017-05-17] MEDS: PULMICORT IH SCH ×2 (08:59→20:38)
[2017-05-17] MEDS: BROVANA NEBU IH SCH ×2 (08:59→20:39)
[2017-05-17] MEDS: DUONEB *Not for PRN Use IH SCH ×3 (08:59→20:38)
--- NOTE | 2017-05-17 09:14 | XRay Report ---
AP CHEST :05/17/17 CLINICAL: Intubated.Follow up respiratory failure. COMPARISON:The previous day. FINDINGS: The chest is quite rotated. The endotracheal tube is satisfactory. A feeding tube has been inserted and the tube tip is below the diaphragm and not imaged. Left PICC line tip is in the SVC. The heart is normal size and the pulmonary vessels are normal. Continued bibasal opacities consistent with pleural effusions. No pneumothorax. IMPRESSION: Bilateral pleural effusions and no change.
[2017-05-17] MEDS: PEPCID PO SCH (09:54)
[2017-05-17] MEDS: HEPARIN SUB-Q SCH ×2 (09:54→22:38)
--- NOTE | 2017-05-17 10:23 | Progress Note ---
Assessment and Plan 61 y/o female with severe C. Diff colitis, sepsis with shock and now encephalopathy, likely metabolic requiring mechanical ventilation. 1. Continue vent support 2. Sepsis persists, continue broad spec abx therapy. Vanc PO for C. diff and Flagyl 3. Remains in shock, hemoglobin is less than 10, Crit less than 30, could consider transfusion to help with pressor requirements 4. Overall prognosis remains guarded to poor CCT 31 Subjective Date of service: 05/17/17 Principal diagnosis: Septic shock,C. diff colitis Interval history: No acute events. Awake and alert. Following commands on vent. Still on levo, currently at 13. Sat 100% on 40%. No family at bedside. Objective Vital Signs - 12hr 05/16/17 05/16/17 05/16/17 22:30 22:45 23:00 Temperature 98.2 F Pulse Rate 78 82 Pulse Rate [ Anterior Bilateral Throughout] Pulse Rate [ Bilateral Bases ] Pulse Rate [ From Monitor] Respiratory 25 H 24 Rate Respiratory Rate [Anterior Bilateral Throughout] Respiratory Rate [Bilateral Bases] Blood Pressure 89/35 89/35 O2 Sat by Pulse 100 100 Oximetry 05/16/17 05/16/17 05/16/17 23:01 23:13 23:15 Temperature Pulse Rate 111 H 81 81 Pulse Rate [ Anterior Bilateral Throughout] Pulse Rate [ Bilateral Bases ] Pulse Rate [ From Monitor] Respiratory 10 L 21 25 H Rate Respiratory Rate [Anterior Bilateral Throughout] Respiratory Rate [Bilateral Bases] Blood Pressure 120/40 120/40 107/58 O2 Sat by Pulse 99 100 100 Oximetry 05/16/17 05/16/17 05/16/17 23:25 23:31 23:45 Temperature Pulse Rate 81 79 93 H Pulse Rate [ Anterior Bilateral Throughout] Pulse Rate [ Bilateral Bases ] Pulse Rate [ From Monitor] Respiratory 25 H 16 Rate Respiratory Rate [Anterior Bilateral Throughout] Respiratory Rate [Bilateral Bases] Blood Pressure 107/58 108/48 108/48 O2 Sat by Pulse 100 100 100 Oximetry 05/17/17 05/17/17 05/17/17 00:00 00:01 00:15 Temperature Pulse Rate 102 H 103 H Pulse Rate [ Anterior Bilateral Throughout] Pulse Rate [ Bilateral Bases ] Pulse Rate [ From Monitor] Respiratory 25 H 22 25 H Rate Respiratory Rate [Anterior Bilateral Throughout] Respiratory Rate [Bilateral Bases] Blood Pressure 115/58 115/58 O2 Sat by Pulse 100 100 100 Oximetry 05/17/17 05/17/17 05/17/17 00:30 00:45 01:00 Temperature Pulse Rate 83 80 79 Pulse Rate [ Anterior Bilateral Throughout] Pulse Rate [ Bilateral Bases ] Pulse Rate [ From Monitor] Respiratory 22 25 H 25 H Rate Respiratory Rate [Anterior Bilateral Throughout] Respiratory Rate [Bilateral Bases] Blood Pressure 128/69 141/60 129/57 O2 Sat by Pulse 100 100 100 Oximetry 05/17/17 05/17/17 05/17/17 01:15 01:30 01:45 Temperature Pulse Rate 100 H 79 81 Pulse Rate [ Anterior Bilateral Throughout] Pulse Rate [ Bilateral Bases ] Pulse Rate [ From Monitor] Respiratory 22 25 H 21 Rate Respiratory Rate [Anterior Bilateral Throughout] Respiratory Rate [Bilateral Bases] Blood Pressure 139/62 132/58 123/55 O2 Sat by Pulse 100 100 100 Oximetry 05/17/17 05/17/17 05/17/17 02:00 02:15 02:30 Temperature Pulse Rate 82 82 96 H Pulse Rate [ Anterior Bilateral Throughout] Pulse Rate [ Bilateral Bases ] Pulse Rate [ From Monitor] Respiratory 18 24 21 Rate Respiratory Rate [Anterior Bilateral Throughout] Respiratory Rate [Bilateral Bases] Blood Pressure 130/64 134/65 135/57 O2 Sat by Pulse 100 100 100 Oximetry 05/17/17 05/17/17 05/17/17 02:45 03:00 03:15 Temperature Pulse Rate 99 H 90 Pulse Rate [ Anterior Bilateral Throughout] Pulse Rate [ Bilateral Bases ] Pulse Rate [ From Monitor] Respiratory 25 H 22 Rate Respiratory Rate [Anterior Bilateral Throughout] Respiratory Rate [Bilateral Bases] Blood Pressure 140/61 124/60 134/61 O2 Sat by Pulse 100 100 100 Oximetry 05/17/17 05/17/17 05/17/17 03:19 03:25 03:30 Temperature 99.3 F Pulse Rate 98 H 73 Pulse Rate [ Anterior Bilateral Throughout] Pulse Rate [ Bilateral Bases ] Pulse Rate [ From Monitor] Respiratory 25 H Rate Respiratory Rate [Anterior Bilateral Throughout] Respiratory Rate [Bilateral Bases] Blood Pressure 134/61 125/59 O2 Sat by Pulse 100 100 Oximetry 05/17/17 05/17/17 05/17/17 03:45 04:00 04:15 Temperature Pulse Rate 79 72 72 Pulse Rate [ Anterior Bilateral Throughout] Pulse Rate [ Bilateral Bases ] Pulse Rate [ From Monitor] Respiratory 16 21 22 Rate Respiratory Rate [Anterior Bilateral Throughout] Respiratory Rate [Bilateral Bases] Blood Pressure 125/59 116/48 121/46 O2 Sat by Pulse 100 100 100 Oximetry 05/17/17 05/17/17 05/17/17 04:30 04:45 05:01 Temperature Pulse Rate 78 126 H Pulse Rate [ Anterior Bilateral Throughout] Pulse Rate [ Bilateral Bases ] Pulse Rate [ From Monitor] Respiratory 17 22 Rate Respiratory Rate [Anterior Bilateral Throughout] Respiratory Rate [Bilateral Bases] Blood Pressure 131/53 138/53 131/50 O2 Sat by Pulse 100 100 100 Oximetry 05/17/17 05/17/17 05/17/17 05:15 05:30 05:45 Temperature Pulse Rate 88 83 83 Pulse Rate [ Anterior Bilateral Throughout] Pulse Rate [ Bilateral Bases ] Pulse Rate [ From Monitor] Respiratory 20 21 20 Rate Respiratory Rate [Anterior Bilateral Throughout] Respiratory Rate [Bilateral Bases] Blood Pressure 138/54 128/53 113/56 O2 Sat by Pulse 100 100 100 Oximetry 05/17/17 05/17/17 05/17/17 06:00 06:15 06:30 Temperature Pulse Rate 80 81 83 Pulse Rate [ Anterior Bilateral Throughout] Pulse Rate [ Bilateral Bases ] Pulse Rate [ From Monitor] Respiratory 21 17 21 Rate Respiratory Rate [Anterior Bilateral Throughout] Respiratory Rate [Bilateral Bases] Blood Pressure 129/60 124/58 127/66 O2 Sat by Pulse 100 100 Oximetry 05/17/17 05/17/17 05/17/17 06:45 07:00 07:15 Temperature 98.7 F Pulse Rate 82 82 143 H Pulse Rate [ Anterior Bilateral Throughout] Pulse Rate [ Bilateral Bases ] Pulse Rate [ From Monitor] Respiratory 20 19 21 Rate Respiratory Rate [Anterior Bilateral Throughout] Respiratory Rate [Bilateral Bases] Blood Pressure 128/60 122/63 125/61 O2 Sat by Pulse 100 100 100 Oximetry 05/17/17 05/17/17 05/17/17 07:30 07:45 08:00 Temperature Pulse Rate 87 102 H Pulse Rate [ Anterior Bilateral Throughout] Pulse Rate [ Bilateral Bases ] Pulse Rate [ 106 H From Monitor] Respiratory 20 20 20 Rate Respiratory Rate [Anterior Bilateral Throughout] Respiratory Rate [Bilateral Bases] Blood Pressure 123/63 129/67 O2 Sat by Pulse 100 100 100 Oximetry 05/17/17 05/17/17 05/17/17 08:09 08:15 08:55 Temperature Pulse Rate 97 H 106 H 82 Pulse Rate [ Anterior Bilateral Throughout] Pulse Rate [ Bilateral Bases ] Pulse Rate [ From Monitor] Respiratory 21 20 Rate Respiratory Rate [Anterior Bilateral Throughout] Respiratory Rate [Bilateral Bases] Blood Pressure 133/60 132/66 O2 Sat by Pulse 100 100 100 Oximetry 05/17/17 05/17/17 08:59 09:07 Temperature Pulse Rate Pulse Rate [ 85 Anterior Bilateral Throughout] Pulse Rate [ 81 Bilateral Bases ] Pulse Rate [ From Monitor] Respiratory Rate Respiratory 20 Rate [Anterior Bilateral Throughout] Respiratory 20 Rate [Bilateral Bases] Blood Pressure O2 Sat by Pulse Oximetry Constitutional: alert Eyes: non-icteric ENT: oropharynx moist Neck: supple Effort: mildly labored Ascultation: Bilateral: clear (anterior), diminished breath sounds, rales Percussion: Bilateral: not dull Cardiovascular: regular rate and rhythm Gastrointestinal: hypoactive bowel sounds Integumentary: normal Extremities: anasarca Neurologic: unable to assess Psychiatric: mood appropriate, affect normal CBC and BMP: 05/17/17 04:00 05/17/17 05:00 ABG, PT/INR, D-dimer: ABG POC ABG pH 7.199 (7.35-7.45) L 05/17/17 03:44 POC ABG pCO2 37.8 (35-45) 05/17/17 03:44 POC ABG pO2 107 (80-105) H 05/17/17 03:44 POC ABG HCO3 14.7 05/17/17 03:44 POC ABG Total CO2 16 05/17/17 03:44 POC ABG O2 Sat 97 05/17/17 03:44 PT/INR, D-dimer D-Dimer 8441.57 ng/mlDDU (0-234) H 05/04/17 Unknown Abnormal lab findings: Abnormal Labs 05/04/17 05/04/17 05/04/17 02:20 18:39 18:39 WBC 24.3 H RBC Hgb Hct RDW 16.4 H Plt Count 658 H Seg Neuts % (Manual) 94.5 H Lymphocytes % (Manual) 2.5 L Seg Neutrophils # Man 23.0 H Lymphocytes # (Manual) 0.6 L Monocytes # (Manual) Eosinophils # (Manual) D-Dimer POC ABG pH POC ABG pCO2 POC ABG pO2 Sodium Potassium 3.2 L Chloride 92.6 L Carbon Dioxide 14 L BUN 66 H Creatinine 6.5 H Glucose POC Glucose Lactic Acid Calcium 7.5 L Ionized Calcium Phosphorus Magnesium ALT 5 L Alkaline Phosphatase 32 L Total Creatine Kinase CK-MB (CK-2) Troponin T C-Reactive Protein Total Protein 5.4 L Albumin 3.0 L Urine WBC (Auto) 100.0 H Urine Creatinine Salicylates Miscellaneous Test 05/04/17 05/04/17 05/04/17 18:39 18:55 Unknown WBC RBC Hgb Hct RDW Plt Count Seg Neuts % (Manual) Lymphocytes % (Manual) Seg Neutrophils # Man Lymphocytes # (Manual) Monocytes # (Manual) Eosinophils # (Manual) D-Dimer POC ABG pH POC ABG pCO2 POC ABG pO2 Sodium Potassium Chloride Carbon Dioxide BUN Creatinine Glucose POC Glucose Lactic Acid 0.40 L Calcium Ionized Calcium Phosphorus Magnesium ALT Alkaline Phosphatase Total Creatine Kinase 155 H CK-MB (CK-2) 4.5 H Troponin T 0.033 H C-Reactive Protein Total Protein Albumin Urine WBC (Auto) Urine Creatinine Salicylates 0.3 L Miscellaneous Test 05/04/17 05/04/17 05/04/17 Unknown Unknown Unknown WBC RBC Hgb Hct RDW Plt Count Seg Neuts % (Manual) Lymphocytes % (Manual) Seg Neutrophils # Man Lymphocytes # (Manual) Monocytes # (Manual) Eosinophils # (Manual) D-Dimer 8441.57 H POC ABG pH POC ABG pCO2 POC ABG pO2 Sodium Potassium Chloride Carbon Dioxide BUN Creatinine Glucose POC Glucose Lactic Acid 0.40 L Calcium Ionized Calcium Phosphorus Magnesium ALT Alkaline Phosphatase Total Creatine Kinase 246 H CK-MB (CK-2) 6.2 H Troponin T C-Reactive Protein Total Protein Albumin Urine WBC (Auto) Urine Creatinine Salicylates Miscellaneous Test 05/05/17 05/05/17 05/05/17 05:20 05:20 05:20 WBC 33.9 H RBC 3.39 L Hgb 9.3 L Hct RDW 16.7 H Plt Count 712 H Seg Neuts % (Manual) 91.0 H Lymphocytes % (Manual) 1.0 L Seg Neutrophils # Man 30.8 H Lymphocytes # (Manual) 0.3 L Monocytes # (Manual) 1.5 H Eosinophils # (Manual) D-Dimer POC ABG pH POC ABG pCO2 POC ABG pO2 Sodium Potassium Chloride Carbon Dioxide 9 L* BUN 53 H Creatinine 5.4 H Glucose POC Glucose Lactic Acid Calcium 6.1 L D Ionized Calcium Phosphorus Magnesium ALT Alkaline Phosphatase Total Creatine Kinase 346 H CK-MB (CK-2) 8.2 H Troponin T C-Reactive Protein Total Protein Albumin Urine WBC (Auto) Urine Creatinine Salicylates Miscellaneous Test 05/05/17 05/05/17 05/05/17 10:43 17:45 17:45 WBC RBC Hgb 8.8 L Hct RDW Plt Count Seg Neuts % (Manual) Lymphocytes % (Manual) Seg Neutrophils # Man Lymphocytes # (Manual) Monocytes # (Manual) Eosinophils # (Manual) D-Dimer POC ABG pH 6.872 L POC ABG pCO2 POC ABG pO2 120 H Sodium Potassium Chloride Carbon Dioxide BUN Creatinine Glucose POC Glucose Lactic Acid Calcium Ionized Calcium 3.5 L Phosphorus Magnesium ALT Alkaline Phosphatase Total Creatine Kinase CK-MB (CK-2) Troponin T C-Reactive Protein Total Protein Albumin Urine WBC (Auto) Urine Creatinine Salicylates Miscellaneous Test 05/05/17 05/05/17 05/05/17 17:45 20:58 Unknown WBC RBC Hgb 9.0 L Hct 29.8 L RDW Plt Count Seg Neuts % (Manual) Lymphocytes % (Manual) Seg Neutrophils # Man Lymphocytes # (Manual) Monocytes # (Manual) Eosinophils # (Manual) D-Dimer POC ABG pH POC ABG pCO2 POC ABG pO2 Sodium Potassium Chloride Carbon Dioxide BUN Creatinine Glucose POC Glucose Lactic Acid Calcium Ionized Calcium Phosphorus 6.20 H Magnesium 1.20 L ALT Alkaline Phosphatase Total Creatine Kinase CK-MB (CK-2) Troponin T C-Reactive Protein Total Protein Albumin Urine WBC (Auto) Urine Creatinine 28.0 H Salicylates Miscellaneous Test 05/06/17 05/06/17 05/06/17 05:09 05:23 07:55 WBC RBC Hgb Hct RDW Plt Count Seg Neuts % (Manual) Lymphocytes % (Manual) Seg Neutrophils # Man Lymphocytes # (Manual) Monocytes # (Manual) Eosinophils # (Manual) D-Dimer POC ABG pH 7.029 L 7.060 L POC ABG pCO2 54.8 H 48.6 H POC ABG pO2 74 L 43 L Sodium Potassium 3.5 L Chloride Carbon Dioxide 18 L D BUN 44 H Creatinine 3.5 H Glucose 252 H POC Glucose Lactic Acid Calcium 5.8 L* Ionized Calcium Phosphorus Magnesium ALT Alkaline Phosphatase Total Creatine Kinase CK-MB (CK-2) Troponin T C-Reactive Protein Total Protein Albumin Urine WBC (Auto) Urine Creatinine Salicylates Miscellaneous Test 05/06/17 05/06/17 05/06/17 07:55 15:28 17:30 WBC RBC Hgb Hct RDW Plt Count Seg Neuts % (Manual) Lymphocytes % (Manual) Seg Neutrophils # Man Lymphocytes # (Manual) Monocytes # (Manual) Eosinophils # (Manual) D-Dimer POC ABG pH 7.066 L POC ABG pCO2 80.9 H POC ABG pO2 65 L Sodium Potassium Chloride Carbon Dioxide BUN Creatinine Glucose POC Glucose Lactic Acid Calcium Ionized Calcium Phosphorus Magnesium ALT Alkaline Phosphatase Total Creatine Kinase CK-MB (CK-2) Troponin T C-Reactive Protein 14.50 H Total Protein Albumin Urine WBC (Auto) Urine Creatinine Salicylates Miscellaneous Test Flexitest 1 H 05/06/17 05/06/17 05/07/17 17:30 Unknown 10:18 WBC 39.2 H 32.9 H RBC 3.27 L Hgb 9.3 L Hct 30.2 L RDW 16.4 H 17.0 H Plt Count 645 H 467 H Seg Neuts % (Manual) Lymphocytes % (Manual) 11.0 L Seg Neutrophils # Man 21.2 H Lymphocytes # (Manual) Monocytes # (Manual) 2.0 H Eosinophils # (Manual) D-Dimer POC ABG pH POC ABG pCO2 POC ABG pO2 Sodium Potassium 3.4 L Chloride Carbon Dioxide BUN 41 H Creatinine 3.2 H Glucose 265 H POC Glucose Lactic Acid Calcium 6.7 L D Ionized Calcium Phosphorus Magnesium ALT Alkaline Phosphatase Total Creatine Kinase CK-MB (CK-2) Troponin T C-Reactive Protein Total Protein Albumin Urine WBC (Auto) Urine Creatinine Salicylates Miscellaneous Test 05/07/17 05/07/17 05/08/17 11:32 12:36 05:45 WBC 31.1 H RBC 3.41 L Hgb 9.8 L Hct RDW 16.9 H Plt Count Seg Neuts % (Manual) 96.0 H Lymphocytes % (Manual) 1.0 L Seg Neutrophils # Man 29.9 H Lymphocytes # (Manual) 0.3 L Monocytes # (Manual) Eosinophils # (Manual) D-Dimer POC ABG pH 7.290 L POC ABG pCO2 48.3 H POC ABG pO2 51 L Sodium 146 H Potassium 3.1 L Chloride 109.2 H Carbon Dioxide 20 L BUN 38 H Creatinine 2.7 H Glucose 213 H POC Glucose Lactic Acid Calcium 6.6 L Ionized Calcium Phosphorus Magnesium ALT Alkaline Phosphatase Total Creatine Kinase CK-MB (CK-2) Troponin T C-Reactive Protein Total Protein Albumin Urine WBC (Auto) Urine Creatinine Salicylates Miscellaneous Test 05/08/17 05/08/17 05/09/17 05:45 18:55 04:05 WBC 26.1 H RBC Hgb Hct RDW 17.6 H Plt Count Seg Neuts % (Manual) Lymphocytes % (Manual) 5.0 L Seg Neutrophils # Man 16.7 H Lymphocytes # (Manual) Monocytes # (Manual) Eosinophils # (Manual) D-Dimer POC ABG pH POC ABG pCO2 POC ABG pO2 Sodium 150 H Potassium Chloride 115.4 H 112.2 H Carbon Dioxide 20 L 18 L BUN 39 H 45 H Creatinine 2.4 H 2.3 H Glucose 160 H 219 H POC Glucose Lactic Acid Calcium 6.6 L 7.2 L Ionized Calcium Phosphorus Magnesium 1.40 L ALT 6 L Alkaline Phosphatase Total Creatine Kinase CK-MB (CK-2) Troponin T C-Reactive Protein Total Protein 4.1 L D Albumin 2.0 L Urine WBC (Auto) Urine Creatinine Salicylates Miscellaneous Test 05/09/17 05/09/17 05/09/17 04:05 05:15 05:45 WBC RBC Hgb Hct RDW Plt Count Seg Neuts % (Manual) Lymphocytes % (Manual) Seg Neutrophils # Man Lymphocytes # (Manual) Monocytes # (Manual) Eosinophils # (Manual) D-Dimer POC ABG pH POC ABG pCO2 POC ABG pO2 Sodium 130 L D Potassium 3.4 L D Chloride 94.6 L Carbon Dioxide 19 L BUN 39 H Creatinine 2.1 H Glucose 549 H* 189 H POC Glucose 181 H Lactic Acid Calcium 6.6 L Ionized Calcium Phosphorus Magnesium ALT 6 L Alkaline Phosphatase 31 L Total Creatine Kinase CK-MB (CK-2) Troponin T C-Reactive Protein Total Protein 3.5 L Albumin 2.0 L Urine WBC (Auto) Urine Creatinine Salicylates Miscellaneous Test 05/09/17 05/09/17 05/09/17 08:03 11:08 16:15 WBC RBC Hgb Hct RDW Plt Count Seg Neuts % (Manual) Lymphocytes % (Manual) Seg Neutrophils # Man Lymphocytes # (Manual) Monocytes # (Manual) Eosinophils # (Manual) D-Dimer POC ABG pH POC ABG pCO2 POC ABG pO2 Sodium Potassium Chloride 107.8 H Carbon Dioxide 21 L BUN 43 H Creatinine 2.4 H Glucose 195 H POC Glucose 299 H 111 H Lactic Acid Calcium 7.1 L Ionized Calcium Phosphorus Magnesium ALT Alkaline Phosphatase Total Creatine Kinase CK-MB (CK-2) Troponin T C-Reactive Protein Total Protein 3.9 L Albumin 2.3 L Urine WBC (Auto) Urine Creatinine Salicylates Miscellaneous Test 05/09/17 05/10/17 05/10/17 23:05 05:00 05:00 WBC 20.9 H RBC 3.53 L Hgb Hct RDW 17.3 H Plt Count Seg Neuts % (Manual) 72.0 H Lymphocytes % (Manual) 8.0 L Seg Neutrophils # Man 15.0 H Lymphocytes # (Manual) Monocytes # (Manual) Eosinophils # (Manual) D-Dimer POC ABG pH POC ABG pCO2 POC ABG pO2 Sodium 135 L D Potassium 3.2 L Chloride Carbon Dioxide 21 L BUN 45 H Creatinine 2.2 H Glucose 308 H POC Glucose 336 H Lactic Acid Calcium 7.1 L Ionized Calcium Phosphorus Magnesium ALT 5 L Alkaline Phosphatase 30 L Total Creatine Kinase CK-MB (CK-2) Troponin T C-Reactive Protein Total Protein 3.8 L Albumin 2.1 L Urine WBC (Auto) Urine Creatinine Salicylates Miscellaneous Test 05/10/17 05/10/17 05/10/17 07:28 11:36 16:03 WBC RBC Hgb Hct RDW Plt Count Seg Neuts % (Manual) Lymphocytes % (Manual) Seg Neutrophils # Man Lymphocytes # (Manual) Monocytes # (Manual) Eosinophils # (Manual) D-Dimer POC ABG pH POC ABG pCO2 POC ABG pO2 Sodium Potassium Chloride Carbon Dioxide BUN Creatinine Glucose POC Glucose 154 H 184 H 162 H Lactic Acid Calcium Ionized Calcium Phosphorus Magnesium ALT Alkaline Phosphatase Total Creatine Kinase CK-MB (CK-2) Troponin T C-Reactive Protein Total Protein Albumin Urine WBC (Auto) Urine Creatinine Salicylates Miscellaneous Test 05/10/17 05/11/17 05/11/17 21:13 06:50 06:50 WBC 24.4 H RBC Hgb Hct RDW 17.4 H Plt Count Seg Neuts % (Manual) Lymphocytes % (Manual) 5.0 L Seg Neutrophils # Man 16.3 H Lymphocytes # (Manual) Monocytes # (Manual) 1.0 H Eosinophils # (Manual) D-Dimer POC ABG pH POC ABG pCO2 POC ABG pO2 Sodium Potassium 3.4 L Chloride Carbon Dioxide BUN 50 H Creatinine 2.8 H Glucose 131 H POC Glucose 188 H Lactic Acid Calcium 7.6 L Ionized Calcium Phosphorus Magnesium ALT < 5 L Alkaline Phosphatase 25 L Total Creatine Kinase CK-MB (CK-2) Troponin T C-Reactive Protein Total Protein 3.6 L Albumin 2.0 L Urine WBC (Auto) Urine Creatinine Salicylates Miscellaneous Test 05/11/17 05/11/17 05/11/17 09:33 11:45 15:46 WBC RBC Hgb Hct RDW Plt Count Seg Neuts % (Manual) Lymphocytes % (Manual) Seg Neutrophils # Man Lymphocytes # (Manual) Monocytes # (Manual) Eosinophils # (Manual) D-Dimer POC ABG pH POC ABG pCO2 POC ABG pO2 Sodium Potassium Chloride Carbon Dioxide BUN Creatinine Glucose POC Glucose 140 H 157 H 137 H Lactic Acid Calcium Ionized Calcium Phosphorus Magnesium ALT Alkaline Phosphatase Total Creatine Kinase CK-MB (CK-2) Troponin T C-Reactive Protein Total Protein Albumin Urine WBC (Auto) Urine Creatinine Salicylates Miscellaneous Test 05/11/17 05/11/17 05/12/17 17:50 20:58 05:00 WBC 23.1 H RBC 3.59 L Hgb Hct RDW 17.1 H Plt Count Seg Neuts % (Manual) 94.0 H Lymphocytes % (Manual) 0 L Seg Neutrophils # Man 21.7 H Lymphocytes # (Manual) 0.0 L Monocytes # (Manual) Eosinophils # (Manual) D-Dimer POC ABG pH POC ABG pCO2 POC ABG pO2 Sodium Potassium Chloride Carbon Dioxide BUN Creatinine Glucose POC Glucose 155 H Lactic Acid Calcium Ionized Calcium Phosphorus Magnesium ALT Alkaline Phosphatase Total Creatine Kinase CK-MB (CK-2) Troponin T C-Reactive Protein Total Protein Albumin Urine WBC (Auto) 27.0 H Urine Creatinine Salicylates Miscellaneous Test 05/12/17 05/12/17 05/12/17 05:00 08:28 11:28 WBC RBC Hgb Hct RDW Plt Count Seg Neuts % (Manual) Lymphocytes % (Manual) Seg Neutrophils # Man Lymphocytes # (Manual) Monocytes # (Manual) Eosinophils # (Manual) D-Dimer POC ABG pH POC ABG pCO2 POC ABG pO2 Sodium Potassium Chloride 111.7 H Carbon Dioxide BUN 53 H Creatinine 2.8 H Glucose 102 H POC Glucose 130 H 171 H Lactic Acid Calcium 6.9 L Ionized Calcium Phosphorus Magnesium ALT < 5 L Alkaline Phosphatase 25 L Total Creatine Kinase CK-MB (CK-2) Troponin T C-Reactive Protein Total Protein 3.3 L Albumin 1.7 L Urine WBC (Auto) Urine Creatinine Salicylates Miscellaneous Test 05/12/17 05/13/17 05/13/17 22:20 06:54 06:54 WBC 20.8 H RBC 3.17 L Hgb 9.2 L Hct 28.9 L RDW 17.7 H Plt Count Seg Neuts % (Manual) 93.0 H Lymphocytes % (Manual) 1.0 L Seg Neutrophils # Man 19.3 H Lymphocytes # (Manual) 0.2 L Monocytes # (Manual) Eosinophils # (Manual) 0.6 H D-Dimer POC ABG pH POC ABG pCO2 POC ABG pO2 Sodium Potassium 3.3 L Chloride 110.0 H Carbon Dioxide 20 L BUN 48 H Creatinine 2.8 H Glucose 119 H POC Glucose 179 H Lactic Acid Calcium 7.4 L Ionized Calcium Phosphorus Magnesium ALT Alkaline Phosphatase Total Creatine Kinase CK-MB (CK-2) Troponin T C-Reactive Protein Total Protein Albumin Urine WBC (Auto) Urine Creatinine Salicylates Miscellaneous Test 05/13/17 05/13/17 05/13/17 07:35 12:52 23:32 WBC RBC Hgb Hct RDW Plt Count Seg Neuts % (Manual) Lymphocytes % (Manual) Seg Neutrophils # Man Lymphocytes # (Manual) Monocytes # (Manual) Eosinophils # (Manual) D-Dimer POC ABG pH POC ABG pCO2 POC ABG pO2 Sodium Potassium Chloride Carbon Dioxide BUN Creatinine Glucose POC Glucose 139 H 159 H 179 H Lactic Acid Calcium Ionized Calcium Phosphorus Magnesium ALT Alkaline Phosphatase Total Creatine Kinase CK-MB (CK-2) Troponin T C-Reactive Protein Total Protein Albumin Urine WBC (Auto) Urine Creatinine Salicylates Miscellaneous Test 05/14/17 05/14/17 05/14/17 04:00 05:00 07:30 WBC 19.3 H RBC 3.16 L Hgb 9.1 L Hct 29.1 L RDW 17.9 H Plt Count Seg Neuts % (Manual) 87.0 H Lymphocytes % (Manual) 2.0 L Seg Neutrophils # Man 16.8 H Lymphocytes # (Manual) 0.4 L Monocytes # (Manual) 1.0 H Eosinophils # (Manual) 0.6 H D-Dimer POC ABG pH POC ABG pCO2 POC ABG pO2 Sodium 146 H Potassium Chloride 114.7 H Carbon Dioxide 19 L BUN 43 H Creatinine 2.5 H Glucose POC Glucose 110 H Lactic Acid Calcium 7.5 L Ionized Calcium Phosphorus Magnesium ALT Alkaline Phosphatase Total Creatine Kinase CK-MB (CK-2) Troponin T C-Reactive Protein Total Protein Albumin Urine WBC (Auto) Urine Creatinine Salicylates Miscellaneous Test 05/14/17 05/14/17 05/14/17 11:43 15:44 20:10 WBC RBC Hgb Hct RDW Plt Count Seg Neuts % (Manual) Lymphocytes % (Manual) Seg Neutrophils # Man Lymphocytes # (Manual) Monocytes # (Manual) Eosinophils # (Manual) D-Dimer POC ABG pH POC ABG pCO2 POC ABG pO2 Sodium Potassium Chloride Carbon Dioxide BUN Creatinine Glucose POC Glucose 169 H 201 H 223 H Lactic Acid Calcium Ionized Calcium Phosphorus Magnesium ALT Alkaline Phosphatase Total Creatine Kinase CK-MB (CK-2) Troponin T C-Reactive Protein Total Protein Albumin Urine WBC (Auto) Urine Creatinine Salicylates Miscellaneous Test 05/15/17 05/15/17 05/15/17 06:10 08:50 12:57 WBC RBC Hgb Hct RDW Plt Count Seg Neuts % (Manual) Lymphocytes % (Manual) Seg Neutrophils # Man Lymphocytes # (Manual) Monocytes # (Manual) Eosinophils # (Manual) D-Dimer POC ABG pH POC ABG pCO2 POC ABG pO2 Sodium Potassium Chloride 113.6 H Carbon Dioxide 18 L BUN 43 H Creatinine 2.7 H Glucose 123 H POC Glucose 204 H 127 H Lactic Acid Calcium 7.2 L Ionized Calcium Phosphorus Magnesium ALT Alkaline Phosphatase Total Creatine Kinase CK-MB (CK-2) Troponin T C-Reactive Protein Total Protein Albumin Urine WBC (Auto) Urine Creatinine Salicylates Miscellaneous Test 05/15/17 05/15/17 05/15/17 17:43 21:29 23:51 WBC RBC Hgb Hct RDW Plt Count Seg Neuts % (Manual) Lymphocytes % (Manual) Seg Neutrophils # Man Lymphocytes # (Manual) Monocytes # (Manual) Eosinophils # (Manual) D-Dimer POC ABG pH 6.983 L POC ABG pCO2 67.5 H POC ABG pO2 Sodium Potassium Chloride Carbon Dioxide BUN Creatinine Glucose POC Glucose 121 H 129 H Lactic Acid Calcium Ionized Calcium Phosphorus Magnesium ALT Alkaline Phosphatase Total Creatine Kinase CK-MB (CK-2) Troponin T C-Reactive Protein Total Protein Albumin Urine WBC (Auto) Urine Creatinine Salicylates Miscellaneous Test 05/16/17 05/16/17 05/16/17 00:15 06:00 07:46 WBC RBC Hgb Hct RDW Plt Count Seg Neuts % (Manual) Lymphocytes % (Manual) Seg Neutrophils # Man Lymphocytes # (Manual) Monocytes # (Manual) Eosinophils # (Manual) D-Dimer POC ABG pH POC ABG pCO2 POC ABG pO2 Sodium Potassium Chloride 114.2 H Carbon Dioxide 17 L BUN 44 H Creatinine 3.3 H Glucose 118 H POC Glucose 135 H Lactic Acid 0.60 L Calcium 7.5 L Ionized Calcium Phosphorus Magnesium ALT Alkaline Phosphatase Total Creatine Kinase CK-MB (CK-2) Troponin T C-Reactive Protein Total Protein Albumin Urine WBC (Auto) Urine Creatinine Salicylates Miscellaneous Test 05/16/17 05/16/17 05/16/17 09:38 10:20 10:20 WBC 18.6 H RBC 3.08 L Hgb 9.0 L Hct 29.0 L RDW 18.8 H Plt Count Seg Neuts % (Manual) Lymphocytes % (Manual) 5.0 L Seg Neutrophils # Man 11.3 H Lymphocytes # (Manual) 0.9 L Monocytes # (Manual) 1.3 H Eosinophils # (Manual) D-Dimer POC ABG pH 7.081 L POC ABG pCO2 46.3 H POC ABG pO2 107 H Sodium Potassium Chloride 114.9 H Carbon Dioxide 14 L BUN 44 H Creatinine 3.0 H Glucose 115 H POC Glucose Lactic Acid Calcium 7.3 L Ionized Calcium Phosphorus 5.40 H Magnesium ALT < 5 L Alkaline Phosphatase 17 L Total Creatine Kinase CK-MB (CK-2) Troponin T C-Reactive Protein Total Protein 4.2 L D Albumin 2.9 L Urine WBC (Auto) Urine Creatinine Salicylates Miscellaneous Test 05/17/17 05/17/17 05/17/17 03:44 04:00 05:00 WBC 21.9 H RBC 2.89 L Hgb 8.3 L Hct 26.4 L RDW 18.2 H Plt Count Seg Neuts % (Manual) Lymphocytes % (Manual) 7.0 L Seg Neutrophils # Man 15.3 H Lymphocytes # (Manual) Monocytes # (Manual) 1.5 H Eosinophils # (Manual) D-Dimer POC ABG pH 7.199 L POC ABG pCO2 POC ABG pO2 107 H Sodium Potassium Chloride 111.7 H Carbon Dioxide 16 L BUN 43 H Creatinine 3.4 H Glucose POC Glucose Lactic Acid Calcium 7.3 L Ionized Calcium Phosphorus Magnesium ALT Alkaline Phosphatase Total Creatine Kinase CK-MB (CK-2) Troponin T C-Reactive Protein Total Protein Albumin Urine WBC (Auto) Urine Creatinine Salicylates Miscellaneous Test Chest x-ray: image reviewed
--- NOTE | 2017-05-17 10:37 | Progress Note ---
Assessment and Plan Assessment: 1) Shock - multifactorial (hypovolemic/dehydration + septic): persistent back on pressors still leukocytosis. Septic component etiology C diff colitis +/- ? asp pneumonia ? HAP. CRP=14. Procal=2.4. 2) C diff Colitis: severe-recently exposed to broad spectrum abx. CT abd showed colitis. 3) UTI-mild ? reactive from colitis versus real 4) LUIS 6) COPD 7) Resp failure Plan: -re-check CRP/procal -add meropenem to cover empirically asp pneumonia -consider chest CT and abd CT -continue PO vanco at 250 mg QID and IV flagyl QID day 13 of -monitor leukocytosis I will be covering the weekend Thank you Dr Mejia for your consultation, will follow up with you. Winifred Guerrero MD Infectious Diseases Specialist [facility], [place] [facility] ([facility]) M [phone] O [phone] Subjective Date of service: 05/17/17 Principal diagnosis: Septic shock,C. diff colitis Interval history: Transferred back to ICU due to severe hypotension, acidosis and hypoxemic, now intubated on levophed at 10 mcg/min. Microbiology: Blood cultures: 05/05 neg Urine cultures: 05/05 neg Stool cultures: C diff 05/04 POSITIVE Resp culture: 05/16 neg Current Antimicrobials: Vancomycin PO 05/05 Metronidazole 05/05 Previous Antimicrobials: Zosyn Levaquin Vancomycin PO Metronidazole Vanco rectal 05/07 Ceftriaxone 05/11 Objective - Exam Narrative Exam: General appearance: sedated on the vent Eyes: anicteric sclerae, moist conjunctivae; no lid-lag; PERRLA HENT: Atraumatic; oropharynx clear vey dry oral mucosa Neck: Trachea midline; supple, no thyromegaly or lymphadenopathy Lungs: scattered rhonchi CV: rrr Abdomen: Soft, diffuse tenderness Extremities: No peripheral edema or extremity lymphadenopathy Skin: Normal temperature, turgor and texture; no rash, ulcers or subcutaneous nodules Psych: Anxious. Neuro: alert and oriented x 3. Moving all extermities Lines: right SC TLC - Constitutional Vitals: Vital Signs Temp Pulse Resp BP Pulse Ox 98.7 F 81 20 132/66 100 05/17/17 07:00 05/17/17 09:07 05/17/17 09:07 05/17/17 08:55 05/17/17 08:55 Temperature -Last 24 Hours Temperature 98.7 F Temperature 99.3 F Temperature 98.2 F Temperature 98.6 F Temperature 98.0 F Temperature 97.4 F - Labs CBC & Chem 7: 05/17/17 04:00 05/17/17 05:00 Labs: Abnormal lab results 05/16/17 05/16/17 05/17/17 Range/Units 10:20 10:20 03:44 WBC 18.6 H (4.5-11.0) K/mm3 RBC 3.08 L (3.65-5.03) M/mm3 Hgb 9.0 L (10.1-14.3) gm/dl Hct 29.0 L (30.3-42.9) % RDW 18.8 H (13.2-15.2) % Lymphocytes % (Manual) 5.0 L (13.4-35.0) % Seg Neutrophils # Man 11.3 H (1.8-7.7) K/mm3 Lymphocytes # (Manual) 0.9 L (1.2-5.4) K/mm3 Monocytes # (Manual) 1.3 H (0.0-0.8) K/mm3 POC ABG pH 7.199 L (7.35-7.45) POC ABG pO2 107 H (80-105) Chloride 114.9 H (98-107) mmol/L Carbon Dioxide 14 L (22-30) mmol/L BUN 44 H (7-17) mg/dL Creatinine 3.0 H (0.7-1.2) mg/dL Glucose 115 H (65-100) mg/dL Calcium 7.3 L (8.4-10.2) mg/dL Phosphorus 5.40 H (2.5-4.5) mg/dL ALT < 5 L (7-56) units/L Alkaline Phosphatase 17 L (35-129) units/L Total Protein 4.2 L D (6.3-8.2) g/dL Albumin 2.9 L (3.9-5) g/dL 05/17/17 05/17/17 Range/Units 04:00 05:00 WBC 21.9 H (4.5-11.0) K/mm3 RBC 2.89 L (3.65-5.03) M/mm3 Hgb 8.3 L (10.1-14.3) gm/dl Hct 26.4 L (30.3-42.9) % RDW 18.2 H (13.2-15.2) % Lymphocytes % (Manual) 7.0 L (13.4-35.0) % Seg Neutrophils # Man 15.3 H (1.8-7.7) K/mm3 Lymphocytes # (Manual) (1.2-5.4) K/mm3 Monocytes # (Manual) 1.5 H (0.0-0.8) K/mm3 POC ABG pH (7.35-7.45) POC ABG pO2 (80-105) Chloride 111.7 H (98-107) mmol/L Carbon Dioxide 16 L (22-30) mmol/L BUN 43 H (7-17) mg/dL Creatinine 3.4 H (0.7-1.2) mg/dL Glucose (65-100) mg/dL Calcium 7.3 L (8.4-10.2) mg/dL Phosphorus (2.5-4.5) mg/dL ALT (7-56) units/L Alkaline Phosphatase (35-129) units/L Total Protein (6.3-8.2) g/dL Albumin (3.9-5) g/dL
[2017-05-17] MEDS ORDERED: SODIUM BICARBONATE FEEDTUBE PRN (11:31)
[2017-05-17] MEDS ORDERED: PANCREAZE DR 10,500 UNIT FEEDTUBE PRN (11:31)
[2017-05-17] MEDS ORDERED: SIMPLE SYRUP FEEDTUBE PRN ×2 (11:31)
[2017-05-17] MEDS: MERREM 1,000 MG in NACL 0.9% 20 ML IV SCH ×2 (11:40→23:36)
--- NOTE | 2017-05-17 14:10 | Progress Note ---
Subjective Principal diagnosis: Septic shock,C. diff colitis Interval history: Patient was seen for follow-up today she remains ventilator dependent significant change in her status she still continues to be on vasopressor Renal function still continues to decline Events of 24 hours vitals labs intake output medications were reviewed Patient is currently on bicarbonate drip Lab results were reviewed Social history: Reviewed Medication: Reviewed Family history: Reviewed Allergies: Reviewed Physical examination General; no acute distress HEENT: Mild pallor no icterus oral mucosa moist Neck: Supple soft no jugular venous distention Chest: Bilateral clear to auscultation anteriorly posteriorly a few faint basilar crackles at the lung bases no wheezes Cardiovascular: S1-S2 heart no S3-S4 Abdomen: Soft nontender no voluntary guarding rigidity rebound no organomegaly no masses no suprapubic fullness no CVA tenderness Extremity: Minimal edema dry skin no tenderness in the Area Derm: Dry skin Assessment and plan Acute kidney injury patient admitted with colitis sepsis-like picture with metabolic acidosis volume loss; likely she has severe acute tubular necrosis Will patiently monitor renal function would like to discuss with family about possible renal replacement therapy, which should be done with caution given that she is hemodynamically frail also However given that her mortality risk is high and we do not have any other choice other than to discuss with family about what they would prefer and the situation Metabolic acidosis: Currently on bicarbonate drip pulmonary medicine followin She has been transferred to ICU with septic shock metabolic acidosis. Underlying history of COPD, hypertension hyperlipidemia Overall prognosis guarded to poor mortality risk: High We'll discuss with family about need for dialysis Objective - Vital Signs Vital signs: Vital Signs - 12hr 05/17/17 05/17/17 05/17/17 02:15 02:30 02:45 Temperature Pulse Rate 82 96 H 99 H Pulse Rate [ Anterior Bilateral Throughout] Pulse Rate [ Bilateral Bases ] Pulse Rate [ From Monitor] Respiratory 24 21 25 H Rate Respiratory Rate [Anterior Bilateral Throughout] Respiratory Rate [Bilateral Bases] Blood Pressure 134/65 135/57 140/61 O2 Sat by Pulse 100 100 100 Oximetry 05/17/17 05/17/17 05/17/17 03:00 03:15 03:19 Temperature Pulse Rate 90 98 H Pulse Rate [ Anterior Bilateral Throughout] Pulse Rate [ Bilateral Bases ] Pulse Rate [ From Monitor] Respiratory 22 Rate Respiratory Rate [Anterior Bilateral Throughout] Respiratory Rate [Bilateral Bases] Blood Pressure 124/60 134/61 134/61 O2 Sat by Pulse 100 100 100 Oximetry 05/17/17 05/17/17 05/17/17 03:25 03:30 03:45 Temperature 99.3 F Pulse Rate 73 79 Pulse Rate [ Anterior Bilateral Throughout] Pulse Rate [ Bilateral Bases ] Pulse Rate [ From Monitor] Respiratory 25 H 16 Rate Respiratory Rate [Anterior Bilateral Throughout] Respiratory Rate [Bilateral Bases] Blood Pressure 125/59 125/59 O2 Sat by Pulse 100 100 Oximetry 05/17/17 05/17/17 05/17/17 04:00 04:15 04:30 Temperature Pulse Rate 72 72 78 Pulse Rate [ Anterior Bilateral Throughout] Pulse Rate [ Bilateral Bases ] Pulse Rate [ From Monitor] Respiratory 21 22 17 Rate Respiratory Rate [Anterior Bilateral Throughout] Respiratory Rate [Bilateral Bases] Blood Pressure 116/48 121/46 131/53 O2 Sat by Pulse 100 100 100 Oximetry 05/17/17 05/17/17 05/17/17 04:45 05:01 05:15 Temperature Pulse Rate 126 H 88 Pulse Rate [ Anterior Bilateral Throughout] Pulse Rate [ Bilateral Bases ] Pulse Rate [ From Monitor] Respiratory 22 20 Rate Respiratory Rate [Anterior Bilateral Throughout] Respiratory Rate [Bilateral Bases] Blood Pressure 138/53 131/50 138/54 O2 Sat by Pulse 100 100 100 Oximetry 05/17/17 05/17/17 05/17/17 05:30 05:45 06:00 Temperature Pulse Rate 83 83 80 Pulse Rate [ Anterior Bilateral Throughout] Pulse Rate [ Bilateral Bases ] Pulse Rate [ From Monitor] Respiratory 21 20 21 Rate Respiratory Rate [Anterior Bilateral Throughout] Respiratory Rate [Bilateral Bases] Blood Pressure 128/53 113/56 129/60 O2 Sat by Pulse 100 100 100 Oximetry 05/17/17 05/17/17 05/17/17 06:15 06:30 06:45 Temperature Pulse Rate 81 83 82 Pulse Rate [ Anterior Bilateral Throughout] Pulse Rate [ Bilateral Bases ] Pulse Rate [ From Monitor] Respiratory 17 21 20 Rate Respiratory Rate [Anterior Bilateral Throughout] Respiratory Rate [Bilateral Bases] Blood Pressure 124/58 127/66 128/60 O2 Sat by Pulse 100 100 Oximetry 05/17/17 05/17/17 05/17/17 07:00 07:15 07:30 Temperature 98.7 F Pulse Rate 82 143 H 87 Pulse Rate [ Anterior Bilateral Throughout] Pulse Rate [ Bilateral Bases ] Pulse Rate [ From Monitor] Respiratory 19 21 20 Rate Respiratory Rate [Anterior Bilateral Throughout] Respiratory Rate [Bilateral Bases] Blood Pressure 122/63 125/61 123/63 O2 Sat by Pulse 100 100 100 Oximetry 05/17/17 05/17/17 05/17/17 07:45 08:00 08:09 Temperature Pulse Rate 102 H 97 H Pulse Rate [ Anterior Bilateral Throughout] Pulse Rate [ Bilateral Bases ] Pulse Rate [ 106 H From Monitor] Respiratory 20 20 21 Rate Respiratory Rate [Anterior Bilateral Throughout] Respiratory Rate [Bilateral Bases] Blood Pressure 129/67 O2 Sat by Pulse 100 100 100 Oximetry 05/17/17 05/17/17 05/17/17 08:15 08:30 08:45 Temperature Pulse Rate 106 H 82 107 H Pulse Rate [ Anterior Bilateral Throughout] Pulse Rate [ Bilateral Bases ] Pulse Rate [ From Monitor] Respiratory 20 21 21 Rate Respiratory Rate [Anterior Bilateral Throughout] Respiratory Rate [Bilateral Bases] Blood Pressure 133/60 135/59 132/66 O2 Sat by Pulse 100 100 100 Oximetry 05/17/17 05/17/17 05/17/17 08:55 08:59 09:00 Temperature Pulse Rate 82 82 Pulse Rate [ 85 Anterior Bilateral Throughout] Pulse Rate [ Bilateral Bases ] Pulse Rate [ From Monitor] Respiratory 20 Rate Respiratory 20 Rate [Anterior Bilateral Throughout] Respiratory Rate [Bilateral Bases] Blood Pressure 132/66 129/64 O2 Sat by Pulse 100 100 Oximetry 05/17/17 05/17/17 05/17/17 09:07 09:15 09:30 Temperature Pulse Rate 82 82 Pulse Rate [ Anterior Bilateral Throughout] Pulse Rate [ 81 Bilateral Bases ] Pulse Rate [ From Monitor] Respiratory 20 20 Rate Respiratory Rate [Anterior Bilateral Throughout] Respiratory 20 Rate [Bilateral Bases] Blood Pressure 123/56 125/66 O2 Sat by Pulse 100 100 Oximetry 05/17/17 05/17/17 05/17/17 09:45 10:00 10:15 Temperature Pulse Rate 83 87 92 H Pulse Rate [ Anterior Bilateral Throughout] Pulse Rate [ Bilateral Bases ] Pulse Rate [ 87 From Monitor] Respiratory 20 20 21 Rate Respiratory Rate [Anterior Bilateral Throughout] Respiratory Rate [Bilateral Bases] Blood Pressure 125/66 129/58 130/61 O2 Sat by Pulse 100 100 100 Oximetry 05/17/17 05/17/17 05/17/17 10:30 10:45 11:00 Temperature 98.9 F Pulse Rate 88 89 85 Pulse Rate [ Anterior Bilateral Throughout] Pulse Rate [ Bilateral Bases ] Pulse Rate [ From Monitor] Respiratory 21 21 20 Rate Respiratory Rate [Anterior Bilateral Throughout] Respiratory Rate [Bilateral Bases] Blood Pressure 127/62 99/52 119/62 O2 Sat by Pulse 100 100 100 Oximetry 05/17/17 05/17/17 05/17/17 11:15 11:30 11:45 Temperature Pulse Rate 79 84 86 Pulse Rate [ Anterior Bilateral Throughout] Pulse Rate [ Bilateral Bases ] Pulse Rate [ From Monitor] Respiratory 21 20 20 Rate Respiratory Rate [Anterior Bilateral Throughout] Respiratory Rate [Bilateral Bases] Blood Pressure 134/63 128/59 118/66 O2 Sat by Pulse 100 100 100 Oximetry 05/17/17 05/17/17 05/17/17 12:00 12:15 12:30 Temperature Pulse Rate 93 H 82 100 H Pulse Rate [ Anterior Bilateral Throughout] Pulse Rate [ Bilateral Bases ] Pulse Rate [ 93 H From Monitor] Respiratory 20 19 20 Rate Respiratory Rate [Anterior Bilateral Throughout] Respiratory Rate [Bilateral Bases] Blood Pressure 124/65 133/64 116/56 O2 Sat by Pulse 100 100 100 Oximetry 05/17/17 12:47 Temperature Pulse Rate 83 Pulse Rate [ Anterior Bilateral Throughout] Pulse Rate [ Bilateral Bases ] Pulse Rate [ From Monitor] Respiratory Rate Respiratory Rate [Anterior Bilateral Throughout] Respiratory Rate [Bilateral Bases] Blood Pressure 113/63 O2 Sat by Pulse 100 Oximetry - Lab 05/18/17 Unknown 05/18/17 Unknown Most recent lab results Calcium 7.3 mg/dL (8.4-10.2) L 05/17/17 05:00 Phosphorus 5.40 mg/dL (2.5-4.5) H 05/16/17 10:20 Magnesium 1.70 mg/dL (1.7-2.3) 05/17/17 05:00 Urine Creatinine 28.0 mg/dL (0.1-20.0) H 05/05/17 Unknown Urine Sodium 129 mmol/L 05/05/17 Unknown
[2017-05-17] MEDS ORDERED: MAGNESIUM SULFATE 1 GM in NACL 0.9% 50 ML IV ONE (18:00)
[2017-05-18] MEDS: SODIUM BICARBONATE 150 MEQ in STERILE WATER 1,000 ML IV SCH (03:13)
[2017-05-18 04:08] LABS: Hematocrit 24.9 % (30.3-42.9); Mean Corpuscular HGB Conc 32 % (30-34); Mean Corpuscular Hemoglobin 29 pg (28-32); Mean Corpuscular Volume 90 fl (79-97); Platelet Count 396 K/mm3 (140-440); Red Blood Count 2.76 M/mm3 (3.65-5.03); Red Cell Distribution Width 17.7 % (13.2-15.2)
[2017-05-18 04:14] LABS: Calcium 7.3 mg/dL (8.4-10.2); Chloride 108.9 mmol/L (98-107); Potassium 3.2 mmol/L (3.6-5.0)
[2017-05-18 04:36] LABS: White Blood Count 25.2 K/mm3 (4.5-11.0)
[2017-05-18 05:07] LABS: ISTAT Base Excess -10; ISTAT HCO3 16.7; ISTAT PCO2 38.1 (35-45); ISTAT PH 7.251 (7.35-7.45); ISTAT PO2 126 (80-105); ISTAT SO2 98; ISTAT TCO2 18
[2017-05-18 05:21] LABS: Anisocytosis 1+; Basophils % (Manual) 0 % (0.0-1.8); Blastocytes % (Manual) 0 %; Eosinophils % (Manual) 0 % (0.0-4.3); Hypochromasia 1+; Nucleated Red Blood Cells 0.5 % (0.0-0.9); Poikilocytosis Few; Total Cells Counted Percent 6.5
[2017-05-18 05:22] LABS: Diff Status Complete; Schistocytes Rare; Target Cells Rare
[2017-05-18] MEDS: VANCOMYCIN PO PO SCH ×3 (05:36→18:18)
[2017-05-18] MEDS: FLAGYL 500 MG/100 ML 500 MG/100 ML BAG IV SCH ×3 (05:36→18:35)
[2017-05-18] MEDS: LEVOPHED 8 MG in NACL 0.9% 250ML 242 ML IV SCH ×2 (07:33→21:14)
[2017-05-18] MEDS: NOVOLOG SUB-Q SCH ×4 (07:53→21:29)
[2017-05-18] MEDS: BROVANA NEBU IH SCH ×2 (08:12→21:09)
[2017-05-18] MEDS: DUONEB *Not for PRN Use IH SCH ×3 (08:12→21:09)
[2017-05-18] MEDS: PULMICORT IH SCH ×2 (08:12→21:09)
--- NOTE | 2017-05-18 08:28 | Progress Note ---
Assessment and Plan Assessment and plan: --Hypokalemia : replace per protocol --Acute hypoxic respiratory failure; on vent,sedation, nebulizers, wean as tolerated and extubate, pulmonary following --Septic shock; on Levophed, off vasopressin,monitor blood pressures --Severe sepsis; secondary to C. difficile colitis, possible pneumonia, ID added meropenem oral vancomycin, IV Flagyl, contact isolation. --Leukocytosis; trending down --Acute kidney injury: worsening Creatinine , secondary to hypovolemia/pre renalazotemia, --UTI; s/p 3 days antibiotics per ID --Metabolic acidosis; IV hydration, improving --COPD with exacerbation; Vpresented to support ent support, nebulizers and IV antibiotics --Pulmonary hypertension on echo --Severe hypoalbuminemia/protein calorie Malnutrition; nutritional supplements and supportive care --DVT prophylaxis; heparin renal dose --Full CODE STATUS Guarded prognosis, family aware Consults and recommendations noted and appreciated Critical care time 31 minutes The high probability of a clinically significant, sudden or life threatening deterioration of the [pulmonary ,GI,CV,ID and renal systems ] re and renalquired my full and direct attention, intervention and personal management. The aggregate critical care time was [31 ] minutes. This time is in addition to time spent performing reported procedures but includes the following: [x] Data Review and interpretation [x] Patient assessment and monitoring of vital signs [x] Documentation, counseling [x] Medication orders and management History Interval history: Patient seen and examined Patient seen and examined medical records reviewed Remains intubated on vent On levo fed, vasopressin is discontinued Patient has mild tachycardia Vital signs reviewed Hospitalist Physical - Constitutional Vitals: Temp Pulse Resp BP Pulse Ox 98 F 77 20 109/52 100 05/18/17 07:58 05/18/17 08:22 05/18/17 08:22 05/18/17 08:08 05/18/17 08:08 General appearance: Present: no acute distress, other (intubatd and vent supported) - EENT Eyes: Present: PERRL, EOM intact - Neck Neck: Present: supple, normal ROM, other (Dobbhoff and ET tube in place) - Respiratory Respiratory effort: normal Respiratory: bilateral: diminished, rhonchi, negative: rales, wheezing - Cardiovascular Rhythm: regular Heart Sounds: Present: S1 & S2 (tachycardia) - Extremities Extremities: no ischemia, No edema - Abdominal General gastrointestinal: soft, non-tender, non-distended, normal bowel sounds - Integumentary Integumentary: Present: clear, warm - Psychiatric Psychiatric: other (intubated and sedated) - Neurologic Neurologic: other (intubated and sedated) Results - Labs CBC & Chem 7: 05/18/17 Unknown 05/18/17 Unknown Labs: Laboratory Last Values WBC 25.2 K/mm3 (4.5-11.0) H 05/18/17 Unknown RBC 2.76 M/mm3 (3.65-5.03) L 05/18/17 Unknown Hgb 8.0 gm/dl (10.1-14.3) L 05/18/17 Unknown Hct 24.9 % (30.3-42.9) L 05/18/17 Unknown MCV 90 fl (79-97) 05/18/17 Unknown MCH 29 pg (28-32) 05/18/17 Unknown MCHC 32 % (30-34) 05/18/17 Unknown RDW 17.7 % (13.2-15.2) H 05/18/17 Unknown Plt Count 396 K/mm3 (140-440) 05/18/17 Unknown Add Manual Diff Complete 05/18/17 Unknown Total Counted 200 05/18/17 Unknown Seg Neutrophils % Assistant Child Care Teacher 05/11/17 06:50 Seg Neuts % (Manual) 86.0 % (40.0-70.0) H 05/18/17 Unknown Band Neutrophils % 5.5 % 05/18/17 Unknown Lymphocytes % (Manual) 1.0 % (13.4-35.0) L 05/18/17 Unknown Reactive Lymphs % (Man) 0 % 05/18/17 Unknown Monocytes % (Manual) 6.0 % (0.0-7.3) 05/18/17 Unknown Eosinophils % (Manual) 0 % (0.0-4.3) 05/18/17 Unknown Basophils % (Manual) 0 % (0.0-1.8) 05/18/17 Unknown Metamyelocytes % 0.5 % 05/18/17 Unknown Myelocytes % 1.0 % 05/18/17 Unknown Promyelocytes % 0 % 05/18/17 Unknown Blast Cells % 0 % 05/18/17 Unknown Nucleated RBC % 0.5 % (0.0-0.9) 05/18/17 Unknown Seg Neutrophils # Man 21.7 K/mm3 (1.8-7.7) H 05/18/17 Unknown Band Neutrophils # 1.4 K/mm3 05/18/17 Unknown Lymphocytes # (Manual) 0.3 K/mm3 (1.2-5.4) L 05/18/17 Unknown Abs React Lymphs (Man) 0.0 K/mm3 05/18/17 Unknown Monocytes # (Manual) 1.5 K/mm3 (0.0-0.8) H 05/18/17 Unknown Eosinophils # (Manual) 0.0 K/mm3 (0.0-0.4) 05/18/17 Unknown Basophils # (Manual) 0.0 K/mm3 (0.0-0.1) 05/18/17 Unknown Metamyelocytes # 0.1 K/mm3 05/18/17 Unknown Myelocytes # 0.3 K/mm3 05/18/17 Unknown Promyelocytes # 0.0 K/mm3 05/18/17 Unknown Blast Cells # 0.0 K/mm3 05/18/17 Unknown WBC Morphology Not Reportable 05/18/17 Unknown Hypersegmented Neuts Not Reportable 05/18/17 Unknown Hyposegmented Neuts Not Reportable 05/18/17 Unknown Hypogranular Neuts Not Reportable 05/18/17 Unknown Smudge Cells Not Reportable 05/18/17 Unknown Toxic Granulation Not Reportable 05/18/17 Unknown Toxic Vacuolation Not Reportable 05/18/17 Unknown Dohle Bodies Not Reportable 05/18/17 Unknown Pelger-Huet Anomaly Not Reportable 05/18/17 Unknown Neisha Rods Not Reportable 05/18/17 Unknown Platelet Estimate Appears normal 05/18/17 Unknown Clumped Platelets Not Reportable 05/18/17 Unknown Plt Clumps, EDTA Not Reportable 05/18/17 Unknown Large Platelets Not Reportable 05/18/17 Unknown Giant Platelets Not Reportable 05/18/17 Unknown Platelet Satelliting Not Reportable 05/18/17 Unknown Plt Morphology Comment Not Reportable 05/18/17 Unknown RBC Morphology Not Reportable 05/18/17 Unknown Dimorphic RBCs Not Reportable 05/18/17 Unknown Polychromasia Not Reportable 05/18/17 Unknown Hypochromasia 1+ 05/18/17 Unknown Poikilocytosis Few 05/18/17 Unknown Anisocytosis 1+ 05/18/17 Unknown Microcytosis Not Reportable 05/18/17 Unknown Macrocytosis Not Reportable 05/18/17 Unknown Spherocytes Not Reportable 05/18/17 Unknown Pappenheimer Bodies Not Reportable 05/18/17 Unknown Sickle Cells Not Reportable 05/18/17 Unknown Target Cells Rare 05/18/17 Unknown Tear Drop Cells Not Reportable 05/18/17 Unknown Ovalocytes Not Reportable 05/18/17 Unknown Helmet Cells Not Reportable 05/18/17 Unknown [place] Bodies Not Reportable 05/18/17 Unknown [place] Rings Not Reportable 05/18/17 Unknown Damián Cells Not Reportable 05/18/17 Unknown Bite Cells Not Reportable 05/18/17 Unknown Crenated Cell Not Reportable 05/18/17 Unknown Elliptocytes Not Reportable 05/18/17 Unknown Acanthocytes (Spur) Not Reportable 05/18/17 Unknown Rouleaux Not Reportable 05/18/17 Unknown Hemoglobin C Crystals Not Reportable 05/18/17 Unknown Schistocytes Rare 05/18/17 Unknown Malaria parasites Not Reportable 05/18/17 Unknown Herve Bodies Not Reportable 05/18/17 Unknown Hem Pathologist Commnt No 05/18/17 Unknown D-Dimer 8441.57 ng/mlDDU (0-234) H 05/04/17 Unknown POC ABG pH 7.251 (7.35-7.45) L 05/18/17 04:43 POC ABG pCO2 38.1 (35-45) 05/18/17 04:43 POC ABG pO2 126 (80-105) H 05/18/17 04:43 POC ABG HCO3 16.7 05/18/17 04:43 POC ABG Total CO2 18 05/18/17 04:43 POC ABG O2 Sat 98 05/18/17 04:43 POC ABG Base Excess -10 05/18/17 04:43 FiO2 40 % 05/18/17 04:43 Sodium 144 mmol/L (137-145) 05/18/17 Unknown Potassium 3.2 mmol/L (3.6-5.0) L 05/18/17 Unknown Chloride 108.9 mmol/L (98-107) H 05/18/17 Unknown Carbon Dioxide 19 mmol/L (22-30) L 05/18/17 Unknown Anion Gap 19 mmol/L 05/18/17 Unknown BUN 44 mg/dL (7-17) H 05/18/17 Unknown Creatinine 3.6 mg/dL (0.7-1.2) H 05/18/17 Unknown Estimated GFR 15 ml/min 05/18/17 Unknown BUN/Creatinine Ratio 12 % 05/18/17 Unknown Glucose 85 mg/dL (65-100) 05/18/17 Unknown POC Glucose 78 (70-105) 05/18/17 07:43 Lactic Acid 0.60 mmol/L (0.7-2.0) L 05/16/17 00:15 Calcium 7.3 mg/dL (8.4-10.2) L 05/18/17 Unknown Ionized Calcium 3.5 mg/dL (4.8-5.6) L 05/05/17 17:45 Phosphorus 5.40 mg/dL (2.5-4.5) H 05/16/17 10:20 Magnesium 1.70 mg/dL (1.7-2.3) 05/17/17 05:00 Total Bilirubin < 0.20 mg/dL (0.1-1.2) 05/16/17 10:20 AST 14 units/L (5-40) 05/16/17 10:20 ALT < 5 units/L (7-56) L 05/16/17 10:20 Alkaline Phosphatase 17 units/L (35-129) L 05/16/17 10:20 Total Creatine Kinase 346 units/L (30-135) H 05/05/17 05:20 CK-MB (CK-2) 8.2 ng/mL (0.0-4.0) H 05/05/17 05:20 CK-MB (CK-2) Rel Index 2.3 (0-4) 05/05/17 05:20 Troponin T 0.027 ng/mL (0.00-0.029) 05/05/17 05:20 C-Reactive Protein 2.30 mg/dL (0.00-1.30) H 05/17/17 05:00 Total Protein 4.2 g/dL (6.3-8.2) L D 05/16/17 10:20 Albumin 2.9 g/dL (3.9-5) L 05/16/17 10:20 Albumin/Globulin Ratio 2.2 % 05/16/17 10:20 Triglycerides 149 mg/dL (2-149) 05/04/17 18:55 Cholesterol 185 mg/dL (50-199) 05/04/17 18:55 LDL Cholesterol Direct 103 mg/dL (50-130) 05/04/17 18:55 HDL Cholesterol 53 mg/dL (40-59) 05/04/17 18:55 Cholesterol/HDL Ratio 3.49 % 05/04/17 18:55 TSH 1.780 mlU/mL (0.270-4.200) 05/04/17 18:39 Urine Color Carol (Yellow) 05/11/17 17:50 Urine Turbidity Clear (Clear) 05/11/17 17:50 Urine pH 5.0 (5.0-7.0) 05/11/17 17:50 Ur Specific [place] 1.016 (1.003-1.030) 05/11/17 17:50 Urine Protein 100 mg/dl mg/dL (Negative) 05/11/17 17:50 Urine Glucose (UA) Neg mg/dL (Negative) 05/11/17 17:50 Urine Ketones Neg mg/dL (Negative) 05/11/17 17:50 Urine Blood Mod (Negative) 05/11/17 17:50 Urine Nitrite Neg (Negative) 05/11/17 17:50 Urine Bilirubin Neg (Negative) 05/11/17 17:50 Urine Urobilinogen < 2.0 mg/dL (<2.0) 05/11/17 17:50 Ur Leukocyte Esterase Mod (Negative) 05/11/17 17:50 Urine WBC (Auto) 27.0 /HPF (0.0-6.0) H 05/11/17 17:50 Urine RBC (Auto) 15.0 /HPF (0.0-6.0) 05/11/17 17:50 U Epithel Cells (Auto) < 1.0 /HPF (0-13.0) 05/11/17 17:50 Urine Bacteria (Auto) 1+ /HPF (Negative) 05/11/17 17:50 Amorphous Crystals Few 05/11/17 17:50 Urine Mucus Few /HPF 05/11/17 17:50 Urine Creatinine 28.0 mg/dL (0.1-20.0) H 05/05/17 Unknown Urine Sodium 129 mmol/L 05/05/17 Unknown Urine Potassium 3.67 mmol/L 05/05/17 Unknown Urine Chloride 115.6 mmolL (110-250) 05/05/17 Unknown Salicylates 0.3 mg/dL (2.8-20.0) L 05/04/17 18:39 Urine Opiates Screen Presumptive negative 05/04/17 02:20 Urine Methadone Screen Presumptive negative 05/04/17 02:20 Acetaminophen < 15.0 ug/mL (10.0-30.0) 05/04/17 18:39 Ur Barbiturates Screen Presumptive negative 05/04/17 02:20 Ur Phencyclidine Scrn Presumptive negative 05/04/17 02:20 Ur Amphetamines Screen Presumptive negative 05/04/17 02:20 U Benzodiazepines Scrn Presumptive negative 05/04/17 02:20 Urine Cocaine Screen Presumptive negative 05/04/17 02:20 U Marijuana (THC) Screen Presumptive negative 05/04/17 02:20 Drugs of Abuse Note Disclamer 05/04/17 02:20 Plasma/Serum Alcohol < 0.01 gm% (0-0.07) 05/04/17 18:39 Miscellaneous Test Flexitest 1 H 05/06/17 17:30
[2017-05-18] MEDS ORDERED: KCL 10MEQ/100ML 10 MEQ/100 ML BAG IV SCH (09:00)
--- NOTE | 2017-05-18 09:14 | XRay Report ---
Single view chest: Compared to 05/17/17. History: Followup respiratory failure. Findings: Normal cardiomediastinal silhouette. Stable support system. Bilateral pleural effusion. No significant interval change. Impression: No significant interval change.
[2017-05-18] MEDS: PEPCID PO SCH (09:36)
[2017-05-18] MEDS: HEPARIN SUB-Q SCH ×2 (09:36→21:19)
[2017-05-18] MEDS ORDERED: KCL 40 MEQ in NACL 0.9% 500 ML 500 ML IV ONE (10:00)
[2017-05-18] MEDS ORDERED: NACL 0.9% 100 ML IV PRN (10:33)
--- NOTE | 2017-05-18 10:37 | Progress Note ---
Subjective Principal diagnosis: Septic shock,C. diff colitis Interval history: Patient was seen today for follow-up, there is no significant change in status renal function continues to decline Patient still continues to have metabolic acidosis worsening renal failure ventilator dependent currently on vasopressors Overall on doing so well Critical care notes were also reviewed interdisciplinary notes were also reviewed Social history: Reviewed Current medication: Reviewed Family history: Reviewed Critical care flow sheet was also reviewed Vitals labs intake output medications reviewed HEENT: Oral mucosa moist Neck supple no JVD Chest: Clear to auscultation Heart: Regular rate and rhythm Abdomen: Soft nontender Extremity: Mild edema dry skin Assessment and plan Acute on chronic renal failure in a patient who has progressive decline in renal function with metabolic acidosis declining urine output respiratory failure currently intubated Patient is in need for renal placement therapy. Need of this was addressed with patient's daughter over the phone and was clearly explained about dialysis process, central venous catheter. Remotely also explained the possibility of hemodynamic instability and , she does understand the need for dialysis and is willing to proceed with that nurse will call to confirm and get the consent, formally done for central venous catheter and hemodialysis which will be ordered today We will dialyze her with a higher sodium bath cooler temperature, low blood flow and small dialyzed as tolerated Keep a low threshold to discontinue if she does not tolerate or any signs of hemodynamic instability is noted Metabolic acidosis currently on bicarbonate drip that can be discontinued will start hemodialysis today Hypokalemia we will give her for potassium bath Respiratory failure currently pulmonary following correction of acidosis possible ultrafiltration with hemodialysis Worsening leukocytosis: Please consider infectious disease consultation Anemia: Patient will require erythropoietin with hemodialysis platelet count normal Critical care time spent in direct patient care today more than 37 minutes Prognosis guarded to poor Mortality risk high family aware We'll continue to follow and make recommendation from renal standpoint Objective - Vital Signs Vital signs: Vital Signs - 12hr 05/17/17 05/17/17 05/17/17 22:45 23:00 23:15 Temperature Pulse Rate 83 83 83 Pulse Rate [ Anterior Bilateral Throughout] Pulse Rate [ Bilateral Bases ] Pulse Rate [ From Monitor] Respiratory 20 21 20 Rate Respiratory Rate [Anterior Bilateral Throughout] Respiratory Rate [Bilateral Bases] Blood Pressure 121/56 132/61 121/60 O2 Sat by Pulse 100 100 100 Oximetry 05/17/17 05/17/17 05/17/17 23:30 23:42 23:45 Temperature 98.8 F Pulse Rate 104 H 114 H Pulse Rate [ Anterior Bilateral Throughout] Pulse Rate [ Bilateral Bases ] Pulse Rate [ From Monitor] Respiratory 21 13 Rate Respiratory Rate [Anterior Bilateral Throughout] Respiratory Rate [Bilateral Bases] Blood Pressure 121/63 121/63 O2 Sat by Pulse 100 100 Oximetry 05/17/17 05/17/17 05/18/17 23:48 23:55 00:00 Temperature Pulse Rate 91 H 101 H Pulse Rate [ Anterior Bilateral Throughout] Pulse Rate [ Bilateral Bases ] Pulse Rate [ 103 H From Monitor] Respiratory 20 16 20 Rate Respiratory Rate [Anterior Bilateral Throughout] Respiratory Rate [Bilateral Bases] Blood Pressure 102/70 113/57 O2 Sat by Pulse 100 100 100 Oximetry 05/18/17 05/18/17 05/18/17 00:15 00:30 00:45 Temperature Pulse Rate 99 H 84 104 H Pulse Rate [ Anterior Bilateral Throughout] Pulse Rate [ Bilateral Bases ] Pulse Rate [ From Monitor] Respiratory 20 23 18 Rate Respiratory Rate [Anterior Bilateral Throughout] Respiratory Rate [Bilateral Bases] Blood Pressure 110/61 113/63 104/53 O2 Sat by Pulse 100 100 100 Oximetry 05/18/17 05/18/17 05/18/17 01:00 01:15 01:30 Temperature Pulse Rate 85 99 H 104 H Pulse Rate [ Anterior Bilateral Throughout] Pulse Rate [ Bilateral Bases ] Pulse Rate [ From Monitor] Respiratory 22 21 17 Rate Respiratory Rate [Anterior Bilateral Throughout] Respiratory Rate [Bilateral Bases] Blood Pressure 110/59 108/56 99/60 O2 Sat by Pulse 100 100 100 Oximetry 05/18/17 05/18/17 05/18/17 01:45 01:54 02:00 Temperature Pulse Rate 123 H 123 H 92 H Pulse Rate [ Anterior Bilateral Throughout] Pulse Rate [ Bilateral Bases ] Pulse Rate [ From Monitor] Respiratory 18 20 19 Rate Respiratory Rate [Anterior Bilateral Throughout] Respiratory Rate [Bilateral Bases] Blood Pressure 98/57 112/64 O2 Sat by Pulse 100 100 100 Oximetry 05/18/17 05/18/17 05/18/17 02:15 02:30 02:45 Temperature Pulse Rate 103 H 84 85 Pulse Rate [ Anterior Bilateral Throughout] Pulse Rate [ Bilateral Bases ] Pulse Rate [ From Monitor] Respiratory 23 20 20 Rate Respiratory Rate [Anterior Bilateral Throughout] Respiratory Rate [Bilateral Bases] Blood Pressure 112/58 116/65 122/63 O2 Sat by Pulse 100 100 Oximetry 05/18/17 05/18/17 05/18/17 03:00 03:03 03:15 Temperature Pulse Rate 92 H 92 H 82 Pulse Rate [ Anterior Bilateral Throughout] Pulse Rate [ Bilateral Bases ] Pulse Rate [ From Monitor] Respiratory 20 22 Rate Respiratory Rate [Anterior Bilateral Throughout] Respiratory Rate [Bilateral Bases] Blood Pressure 124/56 94/44 O2 Sat by Pulse 100 100 100 Oximetry 05/18/17 05/18/17 05/18/17 03:26 03:30 03:37 Temperature 98.6 F Pulse Rate 81 76 Pulse Rate [ Anterior Bilateral Throughout] Pulse Rate [ Bilateral Bases ] Pulse Rate [ From Monitor] Respiratory 22 Rate Respiratory Rate [Anterior Bilateral Throughout] Respiratory Rate [Bilateral Bases] Blood Pressure 103/48 103/48 O2 Sat by Pulse 100 100 Oximetry 05/18/17 05/18/17 05/18/17 03:45 04:00 04:15 Temperature Pulse Rate 81 77 94 H Pulse Rate [ Anterior Bilateral Throughout] Pulse Rate [ Bilateral Bases ] Pulse Rate [ From Monitor] Respiratory 21 22 19 Rate Respiratory Rate [Anterior Bilateral Throughout] Respiratory Rate [Bilateral Bases] Blood Pressure 104/52 100/51 95/50 O2 Sat by Pulse 100 100 100 Oximetry 05/18/17 05/18/17 05/18/17 04:30 04:45 05:00 Temperature Pulse Rate 87 73 92 H Pulse Rate [ Anterior Bilateral Throughout] Pulse Rate [ Bilateral Bases ] Pulse Rate [ From Monitor] Respiratory 18 22 20 Rate Respiratory Rate [Anterior Bilateral Throughout] Respiratory Rate [Bilateral Bases] Blood Pressure 104/53 110/52 112/56 O2 Sat by Pulse 100 100 100 Oximetry 05/18/17 05/18/17 05/18/17 05:05 05:15 05:30 Temperature Pulse Rate 92 H 78 75 Pulse Rate [ Anterior Bilateral Throughout] Pulse Rate [ Bilateral Bases ] Pulse Rate [ From Monitor] Respiratory 18 22 21 Rate Respiratory Rate [Anterior Bilateral Throughout] Respiratory Rate [Bilateral Bases] Blood Pressure 117/48 114/52 O2 Sat by Pulse 100 100 100 Oximetry 05/18/17 05/18/17 05/18/17 05:45 06:00 06:15 Temperature Pulse Rate 92 H 72 79 Pulse Rate [ Anterior Bilateral Throughout] Pulse Rate [ Bilateral Bases ] Pulse Rate [ From Monitor] Respiratory 22 22 20 Rate Respiratory Rate [Anterior Bilateral Throughout] Respiratory Rate [Bilateral Bases] Blood Pressure 113/52 99/51 103/57 O2 Sat by Pulse 100 100 Oximetry 05/18/17 05/18/17 05/18/17 06:30 06:45 07:00 Temperature 98.0 F Pulse Rate 72 73 86 Pulse Rate [ Anterior Bilateral Throughout] Pulse Rate [ Bilateral Bases ] Pulse Rate [ From Monitor] Respiratory 21 22 20 Rate Respiratory Rate [Anterior Bilateral Throughout] Respiratory Rate [Bilateral Bases] Blood Pressure 100/48 107/50 97/49 O2 Sat by Pulse 100 100 100 Oximetry 05/18/17 05/18/17 05/18/17 07:15 07:30 07:45 Temperature Pulse Rate 87 113 H 90 Pulse Rate [ Anterior Bilateral Throughout] Pulse Rate [ Bilateral Bases ] Pulse Rate [ From Monitor] Respiratory 21 20 21 Rate Respiratory Rate [Anterior Bilateral Throughout] Respiratory Rate [Bilateral Bases] Blood Pressure 88/48 96/47 102/53 O2 Sat by Pulse 100 100 100 Oximetry 05/18/17 05/18/17 05/18/17 07:58 08:00 08:08 Temperature 98 F Pulse Rate 75 73 Pulse Rate [ Anterior Bilateral Throughout] Pulse Rate [ Bilateral Bases ] Pulse Rate [ 75 From Monitor] Respiratory 20 Rate Respiratory Rate [Anterior Bilateral Throughout] Respiratory Rate [Bilateral Bases] Blood Pressure 109/52 109/52 O2 Sat by Pulse 100 100 Oximetry 05/18/17 05/18/17 08:12 08:22 Temperature Pulse Rate Pulse Rate [ 104 H Anterior Bilateral Throughout] Pulse Rate [ 77 Bilateral Bases ] Pulse Rate [ From Monitor] Respiratory Rate Respiratory 20 Rate [Anterior Bilateral Throughout] Respiratory 20 Rate [Bilateral Bases] Blood Pressure O2 Sat by Pulse Oximetry - Lab 05/18/17 Unknown 05/18/17 Unknown Most recent lab results Calcium 7.3 mg/dL (8.4-10.2) L 05/18/17 Unknown Phosphorus 5.40 mg/dL (2.5-4.5) H 05/16/17 10:20 Magnesium 1.70 mg/dL (1.7-2.3) 05/17/17 05:00 Urine Creatinine 28.0 mg/dL (0.1-20.0) H 05/05/17 Unknown Urine Sodium 129 mmol/L 05/05/17 Unknown
--- NOTE | 2017-05-18 12:13 | Progress Note ---
Assessment and Plan 61 y/o female with severe C. Diff colitis, sepsis with shock and now encephalopathy, likely metabolic requiring mechanical ventilation. 1. Continue vent support, will attempt PSV trial today. 2. Sepsis persists, continue broad spec abx therapy. Vanc PO for C. diff and Flagyl 3. Remains in shock, hemoglobin is less than 10, Crit less than 30, could consider transfusion to help with pressor requirements 4. Overall prognosis remains guarded to poor CCT 31 Subjective Date of service: 05/18/17 Principal diagnosis: Septic shock,C. diff colitis Interval history: No acute events. Awake and alert, following commands. No family at bedside. ABG good from oxygenation and CO2 standpoint. Still with metabolic acidosis. Objective Vital Signs - 12hr 05/18/17 05/18/17 05/18/17 00:15 00:30 00:45 Temperature Pulse Rate 99 H 84 104 H Pulse Rate [ Anterior Bilateral Throughout] Pulse Rate [ Bilateral Bases ] Pulse Rate [ From Monitor] Respiratory 20 23 18 Rate Respiratory Rate [Anterior Bilateral Throughout] Respiratory Rate [Bilateral Bases] Blood Pressure 110/61 113/63 104/53 O2 Sat by Pulse 100 100 100 Oximetry 05/18/17 05/18/17 05/18/17 01:00 01:15 01:30 Temperature Pulse Rate 85 99 H 104 H Pulse Rate [ Anterior Bilateral Throughout] Pulse Rate [ Bilateral Bases ] Pulse Rate [ From Monitor] Respiratory 22 21 17 Rate Respiratory Rate [Anterior Bilateral Throughout] Respiratory Rate [Bilateral Bases] Blood Pressure 110/59 108/56 99/60 O2 Sat by Pulse 100 100 100 Oximetry 05/18/17 05/18/17 05/18/17 01:45 01:54 02:00 Temperature Pulse Rate 123 H 123 H 92 H Pulse Rate [ Anterior Bilateral Throughout] Pulse Rate [ Bilateral Bases ] Pulse Rate [ From Monitor] Respiratory 18 20 19 Rate Respiratory Rate [Anterior Bilateral Throughout] Respiratory Rate [Bilateral Bases] Blood Pressure 98/57 112/64 O2 Sat by Pulse 100 100 100 Oximetry 05/18/17 05/18/17 05/18/17 02:15 02:30 02:45 Temperature Pulse Rate 103 H 84 85 Pulse Rate [ Anterior Bilateral Throughout] Pulse Rate [ Bilateral Bases ] Pulse Rate [ From Monitor] Respiratory 23 20 20 Rate Respiratory Rate [Anterior Bilateral Throughout] Respiratory Rate [Bilateral Bases] Blood Pressure 112/58 116/65 122/63 O2 Sat by Pulse 100 100 Oximetry 05/18/17 05/18/17 05/18/17 03:00 03:03 03:15 Temperature Pulse Rate 92 H 92 H 82 Pulse Rate [ Anterior Bilateral Throughout] Pulse Rate [ Bilateral Bases ] Pulse Rate [ From Monitor] Respiratory 20 22 Rate Respiratory Rate [Anterior Bilateral Throughout] Respiratory Rate [Bilateral Bases] Blood Pressure 124/56 94/44 O2 Sat by Pulse 100 100 100 Oximetry 05/18/17 05/18/17 05/18/17 03:26 03:30 03:37 Temperature 98.6 F Pulse Rate 81 76 Pulse Rate [ Anterior Bilateral Throughout] Pulse Rate [ Bilateral Bases ] Pulse Rate [ From Monitor] Respiratory 22 Rate Respiratory Rate [Anterior Bilateral Throughout] Respiratory Rate [Bilateral Bases] Blood Pressure 103/48 103/48 O2 Sat by Pulse 100 100 Oximetry 05/18/17 05/18/17 05/18/17 03:45 04:00 04:15 Temperature Pulse Rate 81 77 94 H Pulse Rate [ Anterior Bilateral Throughout] Pulse Rate [ Bilateral Bases ] Pulse Rate [ From Monitor] Respiratory 21 22 19 Rate Respiratory Rate [Anterior Bilateral Throughout] Respiratory Rate [Bilateral Bases] Blood Pressure 104/52 100/51 95/50 O2 Sat by Pulse 100 100 100 Oximetry 05/18/17 05/18/17 05/18/17 04:30 04:45 05:00 Temperature Pulse Rate 87 73 92 H Pulse Rate [ Anterior Bilateral Throughout] Pulse Rate [ Bilateral Bases ] Pulse Rate [ From Monitor] Respiratory 18 22 20 Rate Respiratory Rate [Anterior Bilateral Throughout] Respiratory Rate [Bilateral Bases] Blood Pressure 104/53 110/52 112/56 O2 Sat by Pulse 100 100 100 Oximetry 05/18/17 05/18/17 05/18/17 05:05 05:15 05:30 Temperature Pulse Rate 92 H 78 75 Pulse Rate [ Anterior Bilateral Throughout] Pulse Rate [ Bilateral Bases ] Pulse Rate [ From Monitor] Respiratory 18 22 21 Rate Respiratory Rate [Anterior Bilateral Throughout] Respiratory Rate [Bilateral Bases] Blood Pressure 117/48 114/52 O2 Sat by Pulse 100 100 100 Oximetry 05/18/17 05/18/17 05/18/17 05:45 06:00 06:15 Temperature Pulse Rate 92 H 72 79 Pulse Rate [ Anterior Bilateral Throughout] Pulse Rate [ Bilateral Bases ] Pulse Rate [ From Monitor] Respiratory 22 22 20 Rate Respiratory Rate [Anterior Bilateral Throughout] Respiratory Rate [Bilateral Bases] Blood Pressure 113/52 99/51 103/57 O2 Sat by Pulse 100 100 Oximetry 05/18/17 05/18/17 05/18/17 06:30 06:45 07:00 Temperature 98.0 F Pulse Rate 72 73 86 Pulse Rate [ Anterior Bilateral Throughout] Pulse Rate [ Bilateral Bases ] Pulse Rate [ From Monitor] Respiratory 21 22 20 Rate Respiratory Rate [Anterior Bilateral Throughout] Respiratory Rate [Bilateral Bases] Blood Pressure 100/48 107/50 97/49 O2 Sat by Pulse 100 100 100 Oximetry 05/18/17 05/18/17 05/18/17 07:15 07:30 07:45 Temperature Pulse Rate 87 113 H 90 Pulse Rate [ Anterior Bilateral Throughout] Pulse Rate [ Bilateral Bases ] Pulse Rate [ From Monitor] Respiratory 21 20 21 Rate Respiratory Rate [Anterior Bilateral Throughout] Respiratory Rate [Bilateral Bases] Blood Pressure 88/48 96/47 102/53 O2 Sat by Pulse 100 100 100 Oximetry 05/18/17 05/18/17 05/18/17 07:58 08:00 08:08 Temperature 98 F Pulse Rate 75 73 Pulse Rate [ Anterior Bilateral Throughout] Pulse Rate [ Bilateral Bases ] Pulse Rate [ 75 From Monitor] Respiratory 20 Rate Respiratory Rate [Anterior Bilateral Throughout] Respiratory Rate [Bilateral Bases] Blood Pressure 109/52 109/52 O2 Sat by Pulse 100 100 Oximetry 05/18/17 05/18/17 05/18/17 08:12 08:22 11:17 Temperature Pulse Rate 80 Pulse Rate [ 104 H Anterior Bilateral Throughout] Pulse Rate [ 77 Bilateral Bases ] Pulse Rate [ From Monitor] Respiratory Rate Respiratory 20 Rate [Anterior Bilateral Throughout] Respiratory 20 Rate [Bilateral Bases] Blood Pressure 104/53 O2 Sat by Pulse 100 Oximetry Constitutional: alert Eyes: non-icteric ENT: oropharynx moist Neck: supple Effort: mildly labored Ascultation: Bilateral: clear (anterior), diminished breath sounds, wheezes ( mild), rales Percussion: Bilateral: not dull Cardiovascular: regular rate and rhythm Gastrointestinal: hypoactive bowel sounds Integumentary: normal Extremities: anasarca Neurologic: unable to assess Psychiatric: mood appropriate, affect normal CBC and BMP: 05/18/17 Unknown 05/18/17 Unknown ABG, PT/INR, D-dimer: ABG POC ABG pH 7.251 (7.35-7.45) L 05/18/17 04:43 POC ABG pCO2 38.1 (35-45) 05/18/17 04:43 POC ABG pO2 126 (80-105) H 05/18/17 04:43 POC ABG HCO3 16.7 05/18/17 04:43 POC ABG Total CO2 18 05/18/17 04:43 POC ABG O2 Sat 98 05/18/17 04:43 PT/INR, D-dimer D-Dimer 8441.57 ng/mlDDU (0-234) H 05/04/17 Unknown Abnormal lab findings: Abnormal Labs 05/04/17 05/04/17 05/04/17 02:20 18:39 18:39 WBC 24.3 H RBC Hgb Hct RDW 16.4 H Plt Count 658 H Seg Neuts % (Manual) 94.5 H Lymphocytes % (Manual) 2.5 L Seg Neutrophils # Man 23.0 H Lymphocytes # (Manual) 0.6 L Monocytes # (Manual) Eosinophils # (Manual) D-Dimer POC ABG pH POC ABG pCO2 POC ABG pO2 Sodium Potassium 3.2 L Chloride 92.6 L Carbon Dioxide 14 L BUN 66 H Creatinine 6.5 H Glucose POC Glucose Lactic Acid Calcium 7.5 L Ionized Calcium Phosphorus Magnesium ALT 5 L Alkaline Phosphatase 32 L Total Creatine Kinase CK-MB (CK-2) Troponin T C-Reactive Protein Total Protein 5.4 L Albumin 3.0 L Urine WBC (Auto) 100.0 H Urine Creatinine Salicylates Miscellaneous Test 05/04/17 05/04/17 05/04/17 18:39 18:55 Unknown WBC RBC Hgb Hct RDW Plt Count Seg Neuts % (Manual) Lymphocytes % (Manual) Seg Neutrophils # Man Lymphocytes # (Manual) Monocytes # (Manual) Eosinophils # (Manual) D-Dimer POC ABG pH POC ABG pCO2 POC ABG pO2 Sodium Potassium Chloride Carbon Dioxide BUN Creatinine Glucose POC Glucose Lactic Acid 0.40 L Calcium Ionized Calcium Phosphorus Magnesium ALT Alkaline Phosphatase Total Creatine Kinase 155 H CK-MB (CK-2) 4.5 H Troponin T 0.033 H C-Reactive Protein Total Protein Albumin Urine WBC (Auto) Urine Creatinine Salicylates 0.3 L Miscellaneous Test 05/04/17 05/04/17 05/04/17 Unknown Unknown Unknown WBC RBC Hgb Hct RDW Plt Count Seg Neuts % (Manual) Lymphocytes % (Manual) Seg Neutrophils # Man Lymphocytes # (Manual) Monocytes # (Manual) Eosinophils # (Manual) D-Dimer 8441.57 H POC ABG pH POC ABG pCO2 POC ABG pO2 Sodium Potassium Chloride Carbon Dioxide BUN Creatinine Glucose POC Glucose Lactic Acid 0.40 L Calcium Ionized Calcium Phosphorus Magnesium ALT Alkaline Phosphatase Total Creatine Kinase 246 H CK-MB (CK-2) 6.2 H Troponin T C-Reactive Protein Total Protein Albumin Urine WBC (Auto) Urine Creatinine Salicylates Miscellaneous Test 05/05/17 05/05/17 05/05/17 05:20 05:20 05:20 WBC 33.9 H RBC 3.39 L Hgb 9.3 L Hct RDW 16.7 H Plt Count 712 H Seg Neuts % (Manual) 91.0 H Lymphocytes % (Manual) 1.0 L Seg Neutrophils # Man 30.8 H Lymphocytes # (Manual) 0.3 L Monocytes # (Manual) 1.5 H Eosinophils # (Manual) D-Dimer POC ABG pH POC ABG pCO2 POC ABG pO2 Sodium Potassium Chloride Carbon Dioxide 9 L* BUN 53 H Creatinine 5.4 H Glucose POC Glucose Lactic Acid Calcium 6.1 L D Ionized Calcium Phosphorus Magnesium ALT Alkaline Phosphatase Total Creatine Kinase 346 H CK-MB (CK-2) 8.2 H Troponin T C-Reactive Protein Total Protein Albumin Urine WBC (Auto) Urine Creatinine Salicylates Miscellaneous Test 05/05/17 05/05/17 05/05/17 10:43 17:45 17:45 WBC RBC Hgb 8.8 L Hct RDW Plt Count Seg Neuts % (Manual) Lymphocytes % (Manual) Seg Neutrophils # Man Lymphocytes # (Manual) Monocytes # (Manual) Eosinophils # (Manual) D-Dimer POC ABG pH 6.872 L POC ABG pCO2 POC ABG pO2 120 H Sodium Potassium Chloride Carbon Dioxide BUN Creatinine Glucose POC Glucose Lactic Acid Calcium Ionized Calcium 3.5 L Phosphorus Magnesium ALT Alkaline Phosphatase Total Creatine Kinase CK-MB (CK-2) Troponin T C-Reactive Protein Total Protein Albumin Urine WBC (Auto) Urine Creatinine Salicylates Miscellaneous Test 05/05/17 05/05/17 05/05/17 17:45 20:58 Unknown WBC RBC Hgb 9.0 L Hct 29.8 L RDW Plt Count Seg Neuts % (Manual) Lymphocytes % (Manual) Seg Neutrophils # Man Lymphocytes # (Manual) Monocytes # (Manual) Eosinophils # (Manual) D-Dimer POC ABG pH POC ABG pCO2 POC ABG pO2 Sodium Potassium Chloride Carbon Dioxide BUN Creatinine Glucose POC Glucose Lactic Acid Calcium Ionized Calcium Phosphorus 6.20 H Magnesium 1.20 L ALT Alkaline Phosphatase Total Creatine Kinase CK-MB (CK-2) Troponin T C-Reactive Protein Total Protein Albumin Urine WBC (Auto) Urine Creatinine 28.0 H Salicylates Miscellaneous Test 05/06/17 05/06/17 05/06/17 05:09 05:23 07:55 WBC RBC Hgb Hct RDW Plt Count Seg Neuts % (Manual) Lymphocytes % (Manual) Seg Neutrophils # Man Lymphocytes # (Manual) Monocytes # (Manual) Eosinophils # (Manual) D-Dimer POC ABG pH 7.029 L 7.060 L POC ABG pCO2 54.8 H 48.6 H POC ABG pO2 74 L 43 L Sodium Potassium 3.5 L Chloride Carbon Dioxide 18 L D BUN 44 H Creatinine 3.5 H Glucose 252 H POC Glucose Lactic Acid Calcium 5.8 L* Ionized Calcium Phosphorus Magnesium ALT Alkaline Phosphatase Total Creatine Kinase CK-MB (CK-2) Troponin T C-Reactive Protein Total Protein Albumin Urine WBC (Auto) Urine Creatinine Salicylates Miscellaneous Test 05/06/17 05/06/17 05/06/17 07:55 15:28 17:30 WBC RBC Hgb Hct RDW Plt Count Seg Neuts % (Manual) Lymphocytes % (Manual) Seg Neutrophils # Man Lymphocytes # (Manual) Monocytes # (Manual) Eosinophils # (Manual) D-Dimer POC ABG pH 7.066 L POC ABG pCO2 80.9 H POC ABG pO2 65 L Sodium Potassium Chloride Carbon Dioxide BUN Creatinine Glucose POC Glucose Lactic Acid Calcium Ionized Calcium Phosphorus Magnesium ALT Alkaline Phosphatase Total Creatine Kinase CK-MB (CK-2) Troponin T C-Reactive Protein 14.50 H Total Protein Albumin Urine WBC (Auto) Urine Creatinine Salicylates Miscellaneous Test Flexitest 1 H 05/06/17 05/06/17 05/07/17 17:30 Unknown 10:18 WBC 39.2 H 32.9 H RBC 3.27 L Hgb 9.3 L Hct 30.2 L RDW 16.4 H 17.0 H Plt Count 645 H 467 H Seg Neuts % (Manual) Lymphocytes % (Manual) 11.0 L Seg Neutrophils # Man 21.2 H Lymphocytes # (Manual) Monocytes # (Manual) 2.0 H Eosinophils # (Manual) D-Dimer POC ABG pH POC ABG pCO2 POC ABG pO2 Sodium Potassium 3.4 L Chloride Carbon Dioxide BUN 41 H Creatinine 3.2 H Glucose 265 H POC Glucose Lactic Acid Calcium 6.7 L D Ionized Calcium Phosphorus Magnesium ALT Alkaline Phosphatase Total Creatine Kinase CK-MB (CK-2) Troponin T C-Reactive Protein Total Protein Albumin Urine WBC (Auto) Urine Creatinine Salicylates Miscellaneous Test 05/07/17 05/07/17 05/08/17 11:32 12:36 05:45 WBC 31.1 H RBC 3.41 L Hgb 9.8 L Hct RDW 16.9 H Plt Count Seg Neuts % (Manual) 96.0 H Lymphocytes % (Manual) 1.0 L Seg Neutrophils # Man 29.9 H Lymphocytes # (Manual) 0.3 L Monocytes # (Manual) Eosinophils # (Manual) D-Dimer POC ABG pH 7.290 L POC ABG pCO2 48.3 H POC ABG pO2 51 L Sodium 146 H Potassium 3.1 L Chloride 109.2 H Carbon Dioxide 20 L BUN 38 H Creatinine 2.7 H Glucose 213 H POC Glucose Lactic Acid Calcium 6.6 L Ionized Calcium Phosphorus Magnesium ALT Alkaline Phosphatase Total Creatine Kinase CK-MB (CK-2) Troponin T C-Reactive Protein Total Protein Albumin Urine WBC (Auto) Urine Creatinine Salicylates Miscellaneous Test 05/08/17 05/08/17 05/09/17 05:45 18:55 04:05 WBC 26.1 H RBC Hgb Hct RDW 17.6 H Plt Count Seg Neuts % (Manual) Lymphocytes % (Manual) 5.0 L Seg Neutrophils # Man 16.7 H Lymphocytes # (Manual) Monocytes # (Manual) Eosinophils # (Manual) D-Dimer POC ABG pH POC ABG pCO2 POC ABG pO2 Sodium 150 H Potassium Chloride 115.4 H 112.2 H Carbon Dioxide 20 L 18 L BUN 39 H 45 H Creatinine 2.4 H 2.3 H Glucose 160 H 219 H POC Glucose Lactic Acid Calcium 6.6 L 7.2 L Ionized Calcium Phosphorus Magnesium 1.40 L ALT 6 L Alkaline Phosphatase Total Creatine Kinase CK-MB (CK-2) Troponin T C-Reactive Protein Total Protein 4.1 L D Albumin 2.0 L Urine WBC (Auto) Urine Creatinine Salicylates Miscellaneous Test 05/09/17 05/09/17 05/09/17 04:05 05:15 05:45 WBC RBC Hgb Hct RDW Plt Count Seg Neuts % (Manual) Lymphocytes % (Manual) Seg Neutrophils # Man Lymphocytes # (Manual) Monocytes # (Manual) Eosinophils # (Manual) D-Dimer POC ABG pH POC ABG pCO2 POC ABG pO2 Sodium 130 L D Potassium 3.4 L D Chloride 94.6 L Carbon Dioxide 19 L BUN 39 H Creatinine 2.1 H Glucose 549 H* 189 H POC Glucose 181 H Lactic Acid Calcium 6.6 L Ionized Calcium Phosphorus Magnesium ALT 6 L Alkaline Phosphatase 31 L Total Creatine Kinase CK-MB (CK-2) Troponin T C-Reactive Protein Total Protein 3.5 L Albumin 2.0 L Urine WBC (Auto) Urine Creatinine Salicylates Miscellaneous Test 05/09/17 05/09/17 05/09/17 08:03 11:08 16:15 WBC RBC Hgb Hct RDW Plt Count Seg Neuts % (Manual) Lymphocytes % (Manual) Seg Neutrophils # Man Lymphocytes # (Manual) Monocytes # (Manual) Eosinophils # (Manual) D-Dimer POC ABG pH POC ABG pCO2 POC ABG pO2 Sodium Potassium Chloride 107.8 H Carbon Dioxide 21 L BUN 43 H Creatinine 2.4 H Glucose 195 H POC Glucose 299 H 111 H Lactic Acid Calcium 7.1 L Ionized Calcium Phosphorus Magnesium ALT Alkaline Phosphatase Total Creatine Kinase CK-MB (CK-2) Troponin T C-Reactive Protein Total Protein 3.9 L Albumin 2.3 L Urine WBC (Auto) Urine Creatinine Salicylates Miscellaneous Test 05/09/17 05/10/17 05/10/17 23:05 05:00 05:00 WBC 20.9 H RBC 3.53 L Hgb Hct RDW 17.3 H Plt Count Seg Neuts % (Manual) 72.0 H Lymphocytes % (Manual) 8.0 L Seg Neutrophils # Man 15.0 H Lymphocytes # (Manual) Monocytes # (Manual) Eosinophils # (Manual) D-Dimer POC ABG pH POC ABG pCO2 POC ABG pO2 Sodium 135 L D Potassium 3.2 L Chloride Carbon Dioxide 21 L BUN 45 H Creatinine 2.2 H Glucose 308 H POC Glucose 336 H Lactic Acid Calcium 7.1 L Ionized Calcium Phosphorus Magnesium ALT 5 L Alkaline Phosphatase 30 L Total Creatine Kinase CK-MB (CK-2) Troponin T C-Reactive Protein Total Protein 3.8 L Albumin 2.1 L Urine WBC (Auto) Urine Creatinine Salicylates Miscellaneous Test 05/10/17 05/10/17 05/10/17 07:28 11:36 16:03 WBC RBC Hgb Hct RDW Plt Count Seg Neuts % (Manual) Lymphocytes % (Manual) Seg Neutrophils # Man Lymphocytes # (Manual) Monocytes # (Manual) Eosinophils # (Manual) D-Dimer POC ABG pH POC ABG pCO2 POC ABG pO2 Sodium Potassium Chloride Carbon Dioxide BUN Creatinine Glucose POC Glucose 154 H 184 H 162 H Lactic Acid Calcium Ionized Calcium Phosphorus Magnesium ALT Alkaline Phosphatase Total Creatine Kinase CK-MB (CK-2) Troponin T C-Reactive Protein Total Protein Albumin Urine WBC (Auto) Urine Creatinine Salicylates Miscellaneous Test 05/10/17 05/11/17 05/11/17 21:13 06:50 06:50 WBC 24.4 H RBC Hgb Hct RDW 17.4 H Plt Count Seg Neuts % (Manual) Lymphocytes % (Manual) 5.0 L Seg Neutrophils # Man 16.3 H Lymphocytes # (Manual) Monocytes # (Manual) 1.0 H Eosinophils # (Manual) D-Dimer POC ABG pH POC ABG pCO2 POC ABG pO2 Sodium Potassium 3.4 L Chloride Carbon Dioxide BUN 50 H Creatinine 2.8 H Glucose 131 H POC Glucose 188 H Lactic Acid Calcium 7.6 L Ionized Calcium Phosphorus Magnesium ALT < 5 L Alkaline Phosphatase 25 L Total Creatine Kinase CK-MB (CK-2) Troponin T C-Reactive Protein Total Protein 3.6 L Albumin 2.0 L Urine WBC (Auto) Urine Creatinine Salicylates Miscellaneous Test 05/11/17 05/11/17 05/11/17 09:33 11:45 15:46 WBC RBC Hgb Hct RDW Plt Count Seg Neuts % (Manual) Lymphocytes % (Manual) Seg Neutrophils # Man Lymphocytes # (Manual) Monocytes # (Manual) Eosinophils # (Manual) D-Dimer POC ABG pH POC ABG pCO2 POC ABG pO2 Sodium Potassium Chloride Carbon Dioxide BUN Creatinine Glucose POC Glucose 140 H 157 H 137 H Lactic Acid Calcium Ionized Calcium Phosphorus Magnesium ALT Alkaline Phosphatase Total Creatine Kinase CK-MB (CK-2) Troponin T C-Reactive Protein Total Protein Albumin Urine WBC (Auto) Urine Creatinine Salicylates Miscellaneous Test 05/11/17 05/11/17 05/12/17 17:50 20:58 05:00 WBC 23.1 H RBC 3.59 L Hgb Hct RDW 17.1 H Plt Count Seg Neuts % (Manual) 94.0 H Lymphocytes % (Manual) 0 L Seg Neutrophils # Man 21.7 H Lymphocytes # (Manual) 0.0 L Monocytes # (Manual) Eosinophils # (Manual) D-Dimer POC ABG pH POC ABG pCO2 POC ABG pO2 Sodium Potassium Chloride Carbon Dioxide BUN Creatinine Glucose POC Glucose 155 H Lactic Acid Calcium Ionized Calcium Phosphorus Magnesium ALT Alkaline Phosphatase Total Creatine Kinase CK-MB (CK-2) Troponin T C-Reactive Protein Total Protein Albumin Urine WBC (Auto) 27.0 H Urine Creatinine Salicylates Miscellaneous Test 05/12/17 05/12/17 05/12/17 05:00 08:28 11:28 WBC RBC Hgb Hct RDW Plt Count Seg Neuts % (Manual) Lymphocytes % (Manual) Seg Neutrophils # Man Lymphocytes # (Manual) Monocytes # (Manual) Eosinophils # (Manual) D-Dimer POC ABG pH POC ABG pCO2 POC ABG pO2 Sodium Potassium Chloride 111.7 H Carbon Dioxide BUN 53 H Creatinine 2.8 H Glucose 102 H POC Glucose 130 H 171 H Lactic Acid Calcium 6.9 L Ionized Calcium Phosphorus Magnesium ALT < 5 L Alkaline Phosphatase 25 L Total Creatine Kinase CK-MB (CK-2) Troponin T C-Reactive Protein Total Protein 3.3 L Albumin 1.7 L Urine WBC (Auto) Urine Creatinine Salicylates Miscellaneous Test 05/12/17 05/13/17 05/13/17 22:20 06:54 06:54 WBC 20.8 H RBC 3.17 L Hgb 9.2 L Hct 28.9 L RDW 17.7 H Plt Count Seg Neuts % (Manual) 93.0 H Lymphocytes % (Manual) 1.0 L Seg Neutrophils # Man 19.3 H Lymphocytes # (Manual) 0.2 L Monocytes # (Manual) Eosinophils # (Manual) 0.6 H D-Dimer POC ABG pH POC ABG pCO2 POC ABG pO2 Sodium Potassium 3.3 L Chloride 110.0 H Carbon Dioxide 20 L BUN 48 H Creatinine 2.8 H Glucose 119 H POC Glucose 179 H Lactic Acid Calcium 7.4 L Ionized Calcium Phosphorus Magnesium ALT Alkaline Phosphatase Total Creatine Kinase CK-MB (CK-2) Troponin T C-Reactive Protein Total Protein Albumin Urine WBC (Auto) Urine Creatinine Salicylates Miscellaneous Test 05/13/17 05/13/17 05/13/17 07:35 12:52 23:32 WBC RBC Hgb Hct RDW Plt Count Seg Neuts % (Manual) Lymphocytes % (Manual) Seg Neutrophils # Man Lymphocytes # (Manual) Monocytes # (Manual) Eosinophils # (Manual) D-Dimer POC ABG pH POC ABG pCO2 POC ABG pO2 Sodium Potassium Chloride Carbon Dioxide BUN Creatinine Glucose POC Glucose 139 H 159 H 179 H Lactic Acid Calcium Ionized Calcium Phosphorus Magnesium ALT Alkaline Phosphatase Total Creatine Kinase CK-MB (CK-2) Troponin T C-Reactive Protein Total Protein Albumin Urine WBC (Auto) Urine Creatinine Salicylates Miscellaneous Test 05/14/17 05/14/17 05/14/17 04:00 05:00 07:30 WBC 19.3 H RBC 3.16 L Hgb 9.1 L Hct 29.1 L RDW 17.9 H Plt Count Seg Neuts % (Manual) 87.0 H Lymphocytes % (Manual) 2.0 L Seg Neutrophils # Man 16.8 H Lymphocytes # (Manual) 0.4 L Monocytes # (Manual) 1.0 H Eosinophils # (Manual) 0.6 H D-Dimer POC ABG pH POC ABG pCO2 POC ABG pO2 Sodium 146 H Potassium Chloride 114.7 H Carbon Dioxide 19 L BUN 43 H Creatinine 2.5 H Glucose POC Glucose 110 H Lactic Acid Calcium 7.5 L Ionized Calcium Phosphorus Magnesium ALT Alkaline Phosphatase Total Creatine Kinase CK-MB (CK-2) Troponin T C-Reactive Protein Total Protein Albumin Urine WBC (Auto) Urine Creatinine Salicylates Miscellaneous Test 05/14/17 05/14/17 05/14/17 11:43 15:44 20:10 WBC RBC Hgb Hct RDW Plt Count Seg Neuts % (Manual) Lymphocytes % (Manual) Seg Neutrophils # Man Lymphocytes # (Manual) Monocytes # (Manual) Eosinophils # (Manual) D-Dimer POC ABG pH POC ABG pCO2 POC ABG pO2 Sodium Potassium Chloride Carbon Dioxide BUN Creatinine Glucose POC Glucose 169 H 201 H 223 H Lactic Acid Calcium Ionized Calcium Phosphorus Magnesium ALT Alkaline Phosphatase Total Creatine Kinase CK-MB (CK-2) Troponin T C-Reactive Protein Total Protein Albumin Urine WBC (Auto) Urine Creatinine Salicylates Miscellaneous Test 05/15/17 05/15/17 05/15/17 06:10 08:50 12:57 WBC RBC Hgb Hct RDW Plt Count Seg Neuts % (Manual) Lymphocytes % (Manual) Seg Neutrophils # Man Lymphocytes # (Manual) Monocytes # (Manual) Eosinophils # (Manual) D-Dimer POC ABG pH POC ABG pCO2 POC ABG pO2 Sodium Potassium Chloride 113.6 H Carbon Dioxide 18 L BUN 43 H Creatinine 2.7 H Glucose 123 H POC Glucose 204 H 127 H Lactic Acid Calcium 7.2 L Ionized Calcium Phosphorus Magnesium ALT Alkaline Phosphatase Total Creatine Kinase CK-MB (CK-2) Troponin T C-Reactive Protein Total Protein Albumin Urine WBC (Auto) Urine Creatinine Salicylates Miscellaneous Test 05/15/17 05/15/17 05/15/17 17:43 21:29 23:51 WBC RBC Hgb Hct RDW Plt Count Seg Neuts % (Manual) Lymphocytes % (Manual) Seg Neutrophils # Man Lymphocytes # (Manual) Monocytes # (Manual) Eosinophils # (Manual) D-Dimer POC ABG pH 6.983 L POC ABG pCO2 67.5 H POC ABG pO2 Sodium Potassium Chloride Carbon Dioxide BUN Creatinine Glucose POC Glucose 121 H 129 H Lactic Acid Calcium Ionized Calcium Phosphorus Magnesium ALT Alkaline Phosphatase Total Creatine Kinase CK-MB (CK-2) Troponin T C-Reactive Protein Total Protein Albumin Urine WBC (Auto) Urine Creatinine Salicylates Miscellaneous Test 05/16/17 05/16/17 05/16/17 00:15 06:00 07:46 WBC RBC Hgb Hct RDW Plt Count Seg Neuts % (Manual) Lymphocytes % (Manual) Seg Neutrophils # Man Lymphocytes # (Manual) Monocytes # (Manual) Eosinophils # (Manual) D-Dimer POC ABG pH POC ABG pCO2 POC ABG pO2 Sodium Potassium Chloride 114.2 H Carbon Dioxide 17 L BUN 44 H Creatinine 3.3 H Glucose 118 H POC Glucose 135 H Lactic Acid 0.60 L Calcium 7.5 L Ionized Calcium Phosphorus Magnesium ALT Alkaline Phosphatase Total Creatine Kinase CK-MB (CK-2) Troponin T C-Reactive Protein Total Protein Albumin Urine WBC (Auto) Urine Creatinine Salicylates Miscellaneous Test 05/16/17 05/16/17 05/16/17 09:38 10:20 10:20 WBC 18.6 H RBC 3.08 L Hgb 9.0 L Hct 29.0 L RDW 18.8 H Plt Count Seg Neuts % (Manual) Lymphocytes % (Manual) 5.0 L Seg Neutrophils # Man 11.3 H Lymphocytes # (Manual) 0.9 L Monocytes # (Manual) 1.3 H Eosinophils # (Manual) D-Dimer POC ABG pH 7.081 L POC ABG pCO2 46.3 H POC ABG pO2 107 H Sodium Potassium Chloride 114.9 H Carbon Dioxide 14 L BUN 44 H Creatinine 3.0 H Glucose 115 H POC Glucose Lactic Acid Calcium 7.3 L Ionized Calcium Phosphorus 5.40 H Magnesium ALT < 5 L Alkaline Phosphatase 17 L Total Creatine Kinase CK-MB (CK-2) Troponin T C-Reactive Protein Total Protein 4.2 L D Albumin 2.9 L Urine WBC (Auto) Urine Creatinine Salicylates Miscellaneous Test 05/17/17 05/17/17 05/17/17 03:44 04:00 05:00 WBC 21.9 H RBC 2.89 L Hgb 8.3 L Hct 26.4 L RDW 18.2 H Plt Count Seg Neuts % (Manual) Lymphocytes % (Manual) 7.0 L Seg Neutrophils # Man 15.3 H Lymphocytes # (Manual) Monocytes # (Manual) 1.5 H Eosinophils # (Manual) D-Dimer POC ABG pH 7.199 L POC ABG pCO2 POC ABG pO2 107 H Sodium Potassium Chloride 111.7 H Carbon Dioxide 16 L BUN 43 H Creatinine 3.4 H Glucose POC Glucose Lactic Acid Calcium 7.3 L Ionized Calcium Phosphorus Magnesium ALT Alkaline Phosphatase Total Creatine Kinase CK-MB (CK-2) Troponin T C-Reactive Protein Total Protein Albumin Urine WBC (Auto) Urine Creatinine Salicylates Miscellaneous Test 05/17/17 05/18/17 05/18/17 05:00 04:43 Unknown WBC RBC Hgb Hct RDW Plt Count Seg Neuts % (Manual) Lymphocytes % (Manual) Seg Neutrophils # Man Lymphocytes # (Manual) Monocytes # (Manual) Eosinophils # (Manual) D-Dimer POC ABG pH 7.251 L POC ABG pCO2 POC ABG pO2 126 H Sodium Potassium 3.2 L Chloride 108.9 H Carbon Dioxide 19 L BUN 44 H Creatinine 3.6 H Glucose POC Glucose Lactic Acid Calcium 7.3 L Ionized Calcium Phosphorus Magnesium ALT Alkaline Phosphatase Total Creatine Kinase CK-MB (CK-2) Troponin T C-Reactive Protein 2.30 H Total Protein Albumin Urine WBC (Auto) Urine Creatinine Salicylates Miscellaneous Test 05/18/17 Unknown WBC 25.2 H RBC 2.76 L Hgb 8.0 L Hct 24.9 L RDW 17.7 H Plt Count Seg Neuts % (Manual) 86.0 H Lymphocytes % (Manual) 1.0 L Seg Neutrophils # Man 21.7 H Lymphocytes # (Manual) 0.3 L Monocytes # (Manual) 1.5 H Eosinophils # (Manual) D-Dimer POC ABG pH POC ABG pCO2 POC ABG pO2 Sodium Potassium Chloride Carbon Dioxide BUN Creatinine Glucose POC Glucose Lactic Acid Calcium Ionized Calcium Phosphorus Magnesium ALT Alkaline Phosphatase Total Creatine Kinase CK-MB (CK-2) Troponin T C-Reactive Protein Total Protein Albumin Urine WBC (Auto) Urine Creatinine Salicylates Miscellaneous Test
[2017-05-18] MEDS: MERREM 1,000 MG in NACL 0.9% 20 ML IV SCH ×2 (12:15→12:17)
--- NOTE | 2017-05-18 14:11 | Operative Report ---
Operative Report Operative Report: Procedure: Placement of a right common femoral temporary dialysis catheter. Date of Procedure: 05/18/2017 History/Indication: This is a 61 year old female with renal failure. Impression: Successful placement of a 30 cm triple lumen Trialysis temporary dialysis catheter via the right common femoral vein. Physician: Pepe Spencer MD Technique/Procedural Details: Informed consent was obtained. The patient's right groin was prepped and draped in the usual sterile fashion. After administration of local anesthetic, the right common femoral vein was accessed under continuous ultrasound guidance , with an 18-gauge needle. A J-wire was advanced through the needle, and the needle was exchanged for a tissue dilator. After tissue dilation, the temporary dialysis catheter was advanced over the wire. The wire was removed. All 3 lumens were aspirated and flushed. A heparin lock was instilled in each of the 2 larger lumens. A sterile dressing was placed. There were no complications. Discussion: A triple-lumen temporary dialysis catheter was successfully placed. The right common femoral vein is patent and compressible. Specimen: None EBL: <5 cc
[2017-05-18 14:53] LABS: ISTAT Base Excess -12; ISTAT HCO3 16.1; ISTAT PCO2 38.6 (35-45); ISTAT PH 7.227 (7.35-7.45); ISTAT PO2 126 (80-105); ISTAT SO2 98; ISTAT TCO2 17
--- NOTE | 2017-05-18 15:55 | Progress Note ---
Assessment and Plan Assessment: 1) Shock - multifactorial (hypovolemic/dehydration + septic): still on pressors but less, still leukocytosis. Septic component etiology C diff colitis +/- ? asp pneumonia ? HAP. CRP=14 -->2.3. Procal=2.4. 2) C diff Colitis: severe-recently exposed to broad spectrum abx. CT abd showed colitis. 3) UTI-mild ? reactive from colitis versus real 4) LUIS-worsening 6) COPD 7) Resp failure Plan: -f/u re-check procal -continue meropenem to cover empirically asp pneumonia 2 of 5 days -consider chest CT and abd CT -continue PO vanco at 250 mg QID and IV flagyl QID day 14 -monitor leukocytosis / creatinine -to start HD Thank you Dr Mejia for your consultation, will follow up with you. Winifred Guerrero MD Infectious Diseases Specialist [facility] ([facility]) M [phone] O [phone] Subjective Date of service: 05/18/17 Principal diagnosis: Septic shock,C. diff colitis Interval history: Remains on levophed at 4 mcg/min, alert, following commands on the vent. Microbiology: Blood cultures: 05/05 neg Urine cultures: 05/05 neg Stool cultures: C diff 05/04 POSITIVE Resp culture: 05/16 neg Current Antimicrobials: Vancomycin PO 05/05 Metronidazole 05/05 meropenem 05/17 Previous Antimicrobials: Zosyn Levaquin Vancomycin PO Metronidazole Vanco rectal 05/07 Ceftriaxone 05/11 Objective - Exam Narrative Exam: General appearance: sedated on the vent Eyes: anicteric sclerae, moist conjunctivae; no lid-lag; PERRLA HENT: Atraumatic; oropharynx +ETT Neck: Trachea midline; supple, no thyromegaly or lymphadenopathy Lungs: scattered rhonchi CV: rrr Abdomen: Soft, diffuse tenderness Extremities: No peripheral edema or extremity lymphadenopathy Skin: Normal temperature, turgor and texture; no rash, ulcers or subcutaneous nodules Psych: Anxious. Neuro: alert and oriented x 3. Moving all extermities Lines: right SC TLC, rectal tube with copious black diarrhea - Constitutional Vitals: Vital Signs Temp Pulse Resp BP Pulse Ox 97.9 F 69 20 96/54 100 05/18/17 12:00 05/18/17 14:56 05/18/17 14:56 05/18/17 14:47 05/18/17 14:47 Temperature -Last 24 Hours Temperature 97.9 F Temperature 98 F Temperature 98.0 F Temperature 98.6 F Temperature 98.8 F Temperature 98.3 F - Labs CBC & Chem 7: 05/18/17 Unknown 05/18/17 Unknown Labs: Abnormal lab results 05/17/17 05/18/17 05/18/17 Range/Units 05:00 04:43 14:46 WBC (4.5-11.0) K/mm3 RBC (3.65-5.03) M/mm3 Hgb (10.1-14.3) gm/dl Hct (30.3-42.9) % RDW (13.2-15.2) % Seg Neuts % (Manual) (40.0-70.0) % Lymphocytes % (Manual) (13.4-35.0) % Seg Neutrophils # Man (1.8-7.7) K/mm3 Lymphocytes # (Manual) (1.2-5.4) K/mm3 Monocytes # (Manual) (0.0-0.8) K/mm3 POC ABG pH 7.251 L 7.227 L (7.35-7.45) POC ABG pO2 126 H 126 H (80-105) Potassium (3.6-5.0) mmol/L Chloride (98-107) mmol/L Carbon Dioxide (22-30) mmol/L BUN (7-17) mg/dL Creatinine (0.7-1.2) mg/dL Calcium (8.4-10.2) mg/dL C-Reactive Protein 2.30 H (0.00-1.30) mg/dL 05/18/17 05/18/17 Range/Units Unknown Unknown WBC 25.2 H (4.5-11.0) K/mm3 RBC 2.76 L (3.65-5.03) M/mm3 Hgb 8.0 L (10.1-14.3) gm/dl Hct 24.9 L (30.3-42.9) % RDW 17.7 H (13.2-15.2) % Seg Neuts % (Manual) 86.0 H (40.0-70.0) % Lymphocytes % (Manual) 1.0 L (13.4-35.0) % Seg Neutrophils # Man 21.7 H (1.8-7.7) K/mm3 Lymphocytes # (Manual) 0.3 L (1.2-5.4) K/mm3 Monocytes # (Manual) 1.5 H (0.0-0.8) K/mm3 POC ABG pH (7.35-7.45) POC ABG pO2 (80-105) Potassium 3.2 L (3.6-5.0) mmol/L Chloride 108.9 H (98-107) mmol/L Carbon Dioxide 19 L (22-30) mmol/L BUN 44 H (7-17) mg/dL Creatinine 3.6 H (0.7-1.2) mg/dL Calcium 7.3 L (8.4-10.2) mg/dL C-Reactive Protein (0.00-1.30) mg/dL
[2017-05-18] MEDS: MORPHINE IV PRN (18:52)
[2017-05-19] MEDS: FLAGYL 500 MG/100 ML 500 MG/100 ML BAG IV SCH ×4 (00:25→18:13)
[2017-05-19] MEDS: VANCOMYCIN PO PO SCH ×4 (00:26→18:13)
[2017-05-19] MEDS: LEVOPHED 8 MG in NACL 0.9% 250ML 242 ML IV SCH ×4 (02:11→21:05)
[2017-05-19 05:27] LABS: Hematocrit 24.3 % (30.3-42.9); Hemoglobin 7.7 gm/dl (10.1-14.3); Mean Corpuscular HGB Conc 32 % (30-34); Mean Corpuscular Hemoglobin 28 pg (28-32); Mean Corpuscular Volume 90 fl (79-97); Platelet Count 372 K/mm3 (140-440); Red Blood Count 2.71 M/mm3 (3.65-5.03); Red Cell Distribution Width 18.3 % (13.2-15.2)
[2017-05-19 05:30] LABS: White Blood Count 36.5 K/mm3 (4.5-11.0)
[2017-05-19 05:49] LABS: Calcium 7.7 mg/dL (8.4-10.2); Chloride 108.1 mmol/L (98-107); Magnesium 1.7 mg/dL (1.7-2.3); Potassium 3.5 mmol/L (3.6-5.0)
[2017-05-19 06:05] LABS: ISTAT Base Excess -9; ISTAT HCO3 19.1; ISTAT PH 7.216 (7.35-7.45); ISTAT PO2 100 (80-105); ISTAT SO2 96; ISTAT TCO2 20
[2017-05-19 06:28] LABS: Anisocytosis 1+; Basophils % (Manual) 0 % (0.0-1.8); Blastocytes % (Manual) 0 %; Diff Status Complete; Eosinophils % (Manual) 0 % (0.0-4.3); Hypochromasia 1+; Platelet Estimate Consistent w Auto; Schistocytes Rare; Target Cells Rare
--- NOTE | 2017-05-19 07:31 | XRay Report ---
Portable chest: Respiratory failure, pleural effusions. Comparison is made to the prior study of May 18. Bilateral basilar opacities are again noted consistent with fluid. No underlying pulmonary infiltrate identified. Normal-sized heart and no vascular congestion. Nasogastric tube and left PICC line well identified in good positions. The previously identified endotracheal tube if present is not currently visualized. Impression: Persistent bilateral pleural effusions.
[2017-05-19] MEDS: DUONEB *Not for PRN Use IH SCH ×3 (08:40→20:04)
[2017-05-19] MEDS: BROVANA NEBU IH SCH ×2 (08:40→20:03)
[2017-05-19] MEDS: PULMICORT IH SCH ×2 (08:41→20:03)
[2017-05-19] MEDS ORDERED: NACL 0.9% 100 ML IV PRN (09:15)
--- NOTE | 2017-05-19 09:15 | Progress Note ---
Assessment and Plan Impression * Acute renal failure. Most likely secondary to ATN * Respiratory failure * Septic shock * Anemia * C. difficile colitis * COPD Recommendations * Status post initiation of hemodialysis on 05/18/2017 * Patient clinically still volume overloaded. Shall dialyze her again today * Nephrotoxins * Adjust meds for GFR less than 10 * No evidence of renal recovery at this time. Subjective Date of service: 05/19/17 Principal diagnosis: Septic shock,C. diff colitis Interval history: Patient remains in the ICU. Currently on the ventilator. On 35% FiO2. She is also on a Levophed drip. Had a right femoral Vas-Cath placed yesterday. Had hemodialysis thereafter. Treatment limited due to hypotension Objective - Vital Signs Vital signs: Vital Signs - 12hr 05/18/17 05/18/17 05/18/17 21:15 21:30 21:45 Temperature Pulse Rate 84 84 95 H Pulse Rate [ Anterior Bilateral Throughout] Pulse Rate [ From Monitor] Respiratory 21 20 18 Rate Respiratory Rate [Anterior Bilateral Throughout] Blood Pressure 107/62 115/54 O2 Sat by Pulse 98 100 100 Oximetry 05/18/17 05/18/17 05/18/17 22:00 22:15 22:30 Temperature Pulse Rate 97 H 118 H 87 Pulse Rate [ Anterior Bilateral Throughout] Pulse Rate [ From Monitor] Respiratory 39 H 22 22 Rate Respiratory Rate [Anterior Bilateral Throughout] Blood Pressure 117/60 107/62 115/55 O2 Sat by Pulse 99 99 Oximetry 05/18/17 05/18/17 05/18/17 22:45 23:00 23:15 Temperature Pulse Rate 108 H 93 H 90 Pulse Rate [ Anterior Bilateral Throughout] Pulse Rate [ From Monitor] Respiratory 29 H 41 H 38 H Rate Respiratory Rate [Anterior Bilateral Throughout] Blood Pressure 122/61 111/59 114/62 O2 Sat by Pulse 99 100 100 Oximetry 05/18/17 05/18/17 05/18/17 23:21 23:30 23:45 Temperature 98.8 F Pulse Rate 77 93 H Pulse Rate [ Anterior Bilateral Throughout] Pulse Rate [ From Monitor] Respiratory 26 H 21 Rate Respiratory Rate [Anterior Bilateral Throughout] Blood Pressure 110/55 119/58 O2 Sat by Pulse 100 Oximetry 05/19/17 05/19/17 05/19/17 00:00 00:01 00:15 Temperature Pulse Rate 94 H 111 H 93 H Pulse Rate [ Anterior Bilateral Throughout] Pulse Rate [ 98 H From Monitor] Respiratory 24 18 29 H Rate Respiratory Rate [Anterior Bilateral Throughout] Blood Pressure 107/34 104/62 107/54 O2 Sat by Pulse 100 100 100 Oximetry 05/19/17 05/19/17 05/19/17 00:30 00:45 01:01 Temperature Pulse Rate 89 84 98 H Pulse Rate [ Anterior Bilateral Throughout] Pulse Rate [ From Monitor] Respiratory 24 23 22 Rate Respiratory Rate [Anterior Bilateral Throughout] Blood Pressure 115/63 126/61 86/46 O2 Sat by Pulse 100 Oximetry 05/19/17 05/19/17 05/19/17 01:15 01:30 01:45 Temperature Pulse Rate 81 78 76 Pulse Rate [ Anterior Bilateral Throughout] Pulse Rate [ From Monitor] Respiratory 23 21 22 Rate Respiratory Rate [Anterior Bilateral Throughout] Blood Pressure 90/57 116/52 123/53 O2 Sat by Pulse 100 100 100 Oximetry 05/19/17 05/19/17 05/19/17 02:00 02:15 02:30 Temperature Pulse Rate 101 H 100 H 82 Pulse Rate [ Anterior Bilateral Throughout] Pulse Rate [ From Monitor] Respiratory 26 H 26 H 24 Rate Respiratory Rate [Anterior Bilateral Throughout] Blood Pressure 84/58 139/69 126/55 O2 Sat by Pulse 100 100 100 Oximetry 05/19/17 05/19/17 05/19/17 02:45 03:00 03:15 Temperature Pulse Rate 76 79 84 Pulse Rate [ Anterior Bilateral Throughout] Pulse Rate [ From Monitor] Respiratory 23 25 H 23 Rate Respiratory Rate [Anterior Bilateral Throughout] Blood Pressure 125/55 130/52 130/55 O2 Sat by Pulse 100 100 100 Oximetry 05/19/17 05/19/17 05/19/17 03:30 03:33 03:45 Temperature 99.1 F Pulse Rate 89 88 Pulse Rate [ Anterior Bilateral Throughout] Pulse Rate [ From Monitor] Respiratory 21 22 Rate Respiratory Rate [Anterior Bilateral Throughout] Blood Pressure 126/61 126/67 O2 Sat by Pulse 100 100 Oximetry 05/19/17 05/19/17 05/19/17 04:00 04:15 04:30 Temperature Pulse Rate 79 82 77 Pulse Rate [ Anterior Bilateral Throughout] Pulse Rate [ 79 From Monitor] Respiratory 20 22 24 Rate Respiratory Rate [Anterior Bilateral Throughout] Blood Pressure 128/56 122/49 126/56 O2 Sat by Pulse 100 100 100 Oximetry 05/19/17 05/19/17 05/19/17 04:45 05:00 05:15 Temperature Pulse Rate 102 H 86 100 H Pulse Rate [ Anterior Bilateral Throughout] Pulse Rate [ From Monitor] Respiratory 24 24 25 H Rate Respiratory Rate [Anterior Bilateral Throughout] Blood Pressure 129/61 92/48 131/66 O2 Sat by Pulse 100 Oximetry 05/19/17 05/19/17 05/19/17 05:30 05:45 06:00 Temperature Pulse Rate 76 86 79 Pulse Rate [ Anterior Bilateral Throughout] Pulse Rate [ From Monitor] Respiratory 23 25 H 24 Rate Respiratory Rate [Anterior Bilateral Throughout] Blood Pressure 130/56 129/54 128/53 O2 Sat by Pulse 100 100 100 Oximetry 05/19/17 05/19/17 05/19/17 06:15 06:30 06:45 Temperature Pulse Rate 74 78 83 Pulse Rate [ Anterior Bilateral Throughout] Pulse Rate [ From Monitor] Respiratory 22 26 H 24 Rate Respiratory Rate [Anterior Bilateral Throughout] Blood Pressure 108/46 115/53 100/50 O2 Sat by Pulse 100 100 Oximetry 05/19/17 05/19/17 05/19/17 07:00 07:15 07:30 Temperature Pulse Rate 93 H 97 H 96 H Pulse Rate [ Anterior Bilateral Throughout] Pulse Rate [ From Monitor] Respiratory 25 H 17 21 Rate Respiratory Rate [Anterior Bilateral Throughout] Blood Pressure 117/59 103/57 115/62 O2 Sat by Pulse 100 100 100 Oximetry 05/19/17 05/19/17 05/19/17 07:45 08:00 08:06 Temperature 99.0 F Pulse Rate 92 H 101 H Pulse Rate [ Anterior Bilateral Throughout] Pulse Rate [ From Monitor] Respiratory 19 Rate Respiratory Rate [Anterior Bilateral Throughout] Blood Pressure 105/55 105/55 O2 Sat by Pulse Oximetry 05/19/17 05/19/17 05/19/17 08:15 08:30 08:37 Temperature Pulse Rate 93 H 91 H 89 Pulse Rate [ Anterior Bilateral Throughout] Pulse Rate [ From Monitor] Respiratory 25 H 25 H 22 Rate Respiratory Rate [Anterior Bilateral Throughout] Blood Pressure 88/52 91/55 91/55 O2 Sat by Pulse 100 100 100 Oximetry 05/19/17 05/19/17 08:41 08:45 Temperature Pulse Rate 86 Pulse Rate [ 95 H Anterior Bilateral Throughout] Pulse Rate [ From Monitor] Respiratory 28 H Rate Respiratory 24 Rate [Anterior Bilateral Throughout] Blood Pressure 102/48 O2 Sat by Pulse 100 Oximetry - General Appearance General appearance: well-developed, well-nourished, appears stated age, intubated EENT: PERRL, mucous membranes moist Neck: no JVD, no thyromegaly Respiratory: Present: Ronchi (bilateral scattered rhonchi) Cardiology: regular, normal heart rate Gastrointestinal: normal, normoactive bowel sounds Integumentary: other (2+ edema. Right femoral Vas-Cath in place) - Lab 05/19/17 Unknown 05/19/17 Unknown Most recent lab results Calcium 7.7 mg/dL (8.4-10.2) L 05/19/17 Unknown Phosphorus 5.40 mg/dL (2.5-4.5) H 05/16/17 10:20 Magnesium 1.70 mg/dL (1.7-2.3) 05/19/17 Unknown Urine Creatinine 28.0 mg/dL (0.1-20.0) H 05/05/17 Unknown Urine Sodium 129 mmol/L 05/05/17 Unknown
[2017-05-19] MEDS: PEPCID PO SCH (10:09)
[2017-05-19] MEDS: HEPARIN SUB-Q SCH ×2 (10:09→21:05)
[2017-05-19] MEDS: MERREM 1,000 MG in NACL 0.9% 20 ML IV SCH (11:23)
[2017-05-19] MEDS: NOVOLOG SUB-Q SCH ×2 (11:53→18:14)
--- NOTE | 2017-05-19 13:26 | Progress Note ---
Assessment and Plan Assessment: 1) Shock - multifactorial (hypovolemic/dehydration + septic): still on pressors , worsening leukocytosis. Septic component etiology C diff colitis +/- ?asp pneumonia ? HAP. CRP=14 -->2.3. Procal=2.4. 2) C diff Colitis: severe-recently exposed to broad spectrum abx. CT abd showed colitis. 3) UTI-mild ? reactive from colitis versus real 4) LUIS-worsening - no won HD 6) COPD 7) Resp failure Plan: -obtain repeat CT abd w/o IV contrast -f/u re-check procal -continue meropenem to cover empirically asp pneumonia 3 of 5 days -continue PO vanco at 250 mg QID and IV flagyl QID day 15 -monitor leukocytosis / creatinine I will be off tomorrow, available on the phone and will be back rounding on the weekend Thank you Dr Mejia for your consultation, will follow up with you. Winifred Guerrero MD Infectious Diseases Specialist [facility] ([facility]) [phone] Subjective Date of service: 05/19/17 Principal diagnosis: Septic shock,C. diff colitis Interval history: Remains on levophed requirement went to 20 mcg/min after HD now at 8 mcg/min, alert, following commands on the vent. Microbiology: Blood cultures: 05/05 neg Urine cultures: 05/05 neg Stool cultures: C diff 05/04 POSITIVE Resp culture: 05/16 neg Current Antimicrobials: Vancomycin PO 05/05 Metronidazole 05/05 meropenem 05/17 Previous Antimicrobials: Zosyn Levaquin Vancomycin PO Metronidazole Vanco rectal 05/07 Ceftriaxone 05/11 Objective - Exam Narrative Exam: General appearance: sedated on the vent Eyes: anicteric sclerae HENT: Atraumatic; oropharynx +ETT Neck: Trachea midline; supple, no thyromegaly or lymphadenopathy Lungs: scattered rhonchi CV: rrr Abdomen: Soft, diffuse tenderness Extremities: + peripheral edema Skin: Normal temperature, turgor and texture; no rash, ulcers or subcutaneous nodules Psych: Anxious. Neuro: alert and oriented x 3. Moving all extermities Lines: right SC TLC, rectal tube with copious black diarrhea - Constitutional Vitals: Vital Signs Temp Pulse Resp BP Pulse Ox 99.3 F 91 H 19 84/47 100 1127/17 12:00 05/19/17 12:30 05/19/17 12:30 05/19/17 12:33 05/19/17 12:33 Temperature -Last 24 Hours Temperature 99.3 F Temperature 99.0 F Temperature 99.1 F Temperature 98.8 F Temperature 97.6 F Temperature 98.2 F Temperature 98.1 F Temperature 98 F - Labs CBC & Chem 7: 05/19/17 Unknown 05/19/17 Unknown Labs: Abnormal lab results 05/18/17 05/18/17 05/19/17 Range/Units 14:46 21:30 05:26 WBC (4.5-11.0) K/mm3 RBC (3.65-5.03) M/mm3 Hgb (10.1-14.3) gm/dl Hct (30.3-42.9) % RDW (13.2-15.2) % Seg Neuts % (Manual) (40.0-70.0) % Lymphocytes % (Manual) (13.4-35.0) % Seg Neutrophils # Man (1.8-7.7) K/mm3 Lymphocytes # (Manual) (1.2-5.4) K/mm3 Monocytes # (Manual) (0.0-0.8) K/mm3 POC ABG pH 7.227 L (7.35-7.45) POC ABG pCO2 (35-45) POC ABG pO2 126 H (80-105) Potassium (3.6-5.0) mmol/L Chloride (98-107) mmol/L Carbon Dioxide (22-30) mmol/L BUN (7-17) mg/dL Creatinine (0.7-1.2) mg/dL Glucose (65-100) mg/dL POC Glucose 206 H 173 H (70-105) Calcium (8.4-10.2) mg/dL 05/19/17 05/19/17 05/19/17 Range/Units 06:00 11:47 Unknown WBC 36.5 H (4.5-11.0) K/mm3 RBC 2.71 L (3.65-5.03) M/mm3 Hgb 7.7 L (10.1-14.3) gm/dl Hct 24.3 L (30.3-42.9) % RDW 18.3 H (13.2-15.2) % Seg Neuts % (Manual) 79.0 H (40.0-70.0) % Lymphocytes % (Manual) 3.0 L (13.4-35.0) % Seg Neutrophils # Man 28.8 H (1.8-7.7) K/mm3 Lymphocytes # (Manual) 1.1 L (1.2-5.4) K/mm3 Monocytes # (Manual) 2.6 H (0.0-0.8) K/mm3 POC ABG pH 7.216 L (7.35-7.45) POC ABG pCO2 47.0 H (35-45) POC ABG pO2 (80-105) Potassium (3.6-5.0) mmol/L Chloride (98-107) mmol/L Carbon Dioxide (22-30) mmol/L BUN (7-17) mg/dL Creatinine (0.7-1.2) mg/dL Glucose (65-100) mg/dL POC Glucose 203 H (70-105) Calcium (8.4-10.2) mg/dL 05/19/ Range/Units Unknown WBC (4.5-11.0) K/mm3 RBC (3.65-5.03) M/mm3 Hgb (10.1-14.3) gm/dl Hct (30.3-42.9) % RDW (13.2-15.2) % Seg Neuts % (Manual) (40.0-70.0) % Lymphocytes % (Manual) (13.4-35.0) % Seg Neutrophils # Man (1.8-7.7) K/mm3 Lymphocytes # (Manual) (1.2-5.4) K/mm3 Monocytes # (Manual) (0.0-0.8) K/mm3 POC ABG pH (7.35-7.45) POC ABG pCO2 (35-45) POC ABG pO2 (80-105) Potassium 3.5 L (3.6-5.0) mmol/L Chloride 108.1 H (98-107) mmol/L Carbon Dioxide 20 L (22-30) mmol/L BUN 36 H (7-17) mg/dL Creatinine 3.1 H (0.7-1.2) mg/dL Glucose 165 H (65-100) mg/dL POC Glucose (70-105) Calcium 7.7 L (8.4-10.2) mg/dL
--- NOTE | 2017-05-19 14:12 | Progress Note ---
Assessment and Plan CXR = small bilateral pleural effusions Imp: 1. Cdiff colitis 2. Sepsis with septic shock presumably related to #1, r/o other/new infections 3. LUIS 4. Acute respiratory failure, hypoxia and hypercapnea 5. Centrilobular emphysema, severe/extensive on prior CT chest 6. Pulm HTN, probably due to #5 Rec: 1. Cont. bronchodilators; hold off on steroids for now 2. Repeat blood and urine cultures; repeat CT a/p with PO contrast only; ABX per ID 3. Plans for repeat HD today noted, hopefully can correct metabolic abnormalities 4. Increase TFs to goal if CT results unremarkable 5. No extubaton today; ABG results poor + needs to leave floor for CT a/p + needs dialysis; will re-assess in AM 6. DVT and GI PPx 7. Prognosis is guarded; no family present CCT 31 minutes Subjective Date of service: 05/19/17 Principal diagnosis: Septic shock,C. diff colitis Interval history: Failed HD yesterday due to low BP. Remains on Levophed. Awake, on ventilator, tolerating PSV but ABG results suboptimal this AM. Denies pain or SOB. Tolerating TFs at 10mL/hour. Has liquid stool still. Active Medications Acetaminophen (Tylenol) 650 mg PO Q4H PRN PRN Reason: Pain MILD(1-3)/Fever >100.5/KHOURY Last Admin: 05/05/17 12:55 Dose: 650 mg Albuterol (Proventil) 2.5 mg IH Q4HRT PRN PRN Reason: Shortness Of Breath Albuterol/Ipratropium (Duoneb *Not For Prn Use*) 1 ampul IH TIDRT [facility] Last Admin: 05/19/17 08:40 Dose: 1 ampul Lipase/Protease/Amylase (Pancrefide Pearce 10,500 Unit) 1 each FEEDTUBE PRN PRN PRN Reason: For Clogged Feeding Tube Arformoterol Tartrate (Brovana Nebu) 15 mcg IH Q12HRT [facility] Last Admin: 05/19/17 08:40 Dose: 15 mcg Bisacodyl (Dulcolax) 10 mg OR QDAY PRN PRN Reason: Constipation unrelieved by MOM Budesonide (Pulmicort) 0.25 mg IH Q12HRT [facility] Last Admin: 05/19/17 08:41 Dose: 0.25 mg Dextrose (D50w (25gm) Syringe) 50 ml IV PRN PRN PRN Reason: Hypoglycemia Epoetin Eugene (Epogen) 20,000 unit IV PHYLLIS PRN PRN Reason: hemodialysis Famotidine (Pepcid) 20 mg PO DAILY [facility] Last Admin: 05/19/17 10:09 Dose: 20 mg Heparin Sodium (Porcine) (Heparin) 5,000 unit SUB-Q BID DUNG Last Admin: 05/19/17 10:09 Dose: 5,000 unit Hydrocortisone Acetate (Proctosol-Hc) 1 applic OR Q8H PRN PRN Reason: Hemorrhoids Last Admin: 05/05/17 23:40 Dose: 1 applic Hydrophilic Ointment (Vaseline Lip Therapy) 1 applic TP Q2HR PRN PRN Reason: Dry Lips Last Admin: 05/16/17 20:58 Dose: 1 applic Sodium Chloride (Nacl 0.9% 500 Ml) 500 mls @ 10 mls/hr IV PRN PRN PRN Reason: FOR CVP Last Infusion: 05/07/17 13:17 Dose: Infused Metronidazole (Flagyl 500 Mg/100 Ml) 500 mg in 100 mls @ 100 mls/hr IV Q6HR [facility] Last Admin: 05/19/17 11:24 Dose: 100 mls/hr Norepinephrine 8 mg/ Sodium (Chloride) 250 mls @ 3.75 mls/hr IV TITR DUNG; 2 MCG /MIN PRN Reason: Protocol Last Titration: 05/19/17 13:44 Dose: 20 mcg/min, 37.5 mls/hr Vasopressin 20 unit/ Sodium (Chloride) 101 mls @ 9.09 mls/hr IV TITR DUNG; 0.03 UNITS/MIN PRN Reason: Protocol Meropenem 1,000 mg/ Sodium (Chloride) 20 mls @ 20 mls/10 min IV Q24H DUNG Last Admin: 05/19/17 11:23 Dose: 20 mls/10 min Sodium Chloride (Nacl 0.9%) 100 mls @ 999 mls/hr IV PHYLLIS PRN PRN Reason: Hypotension Sodium Chloride (Nacl 0.9%) 100 mls @ 999 mls/hr IV PHYLLIS PRN PRN Reason: Hypotension Insulin Aspart (Novolog) 0 units SUB-Q Q6HR DUNG PRN Reason: Protocol Last Admin: 05/19/17 11:53 Dose: 3 units Morphine Sulfate (Morphine) 1 mg IV Q6H PRN PRN Reason: Pain, Moderate (4-6) Last Admin: 05/18/17 18:52 Dose: 1 mg Multi-Ingred Cream/Lotion/Oil/Oint (Artificial Tears Ophth Oint) 1 applic OU Q4HR PRN PRN Reason: Dry Eye(s) Ondansetron HCl (Zofran) 4 mg IV Q4H PRN PRN Reason: N/V unrelieved by Reglan Last Admin: 05/12/17 10:36 Dose: 4 mg Simple Syrup (Simple Syrup) 15 ml FEEDTUBE PRN PRN PRN Reason: Hypoglycemia Simple Syrup (Simple Syrup) 30 ml FEEDTUBE PRN PRN PRN Reason: Hypoglycemia Sodium Bicarbonate (Sodium Bicarbonate) 325 mg FEEDTUBE PRN PRN PRN Reason: For Clogged Feeding Tube Vancomycin HCl (Vancomycin Po) 250 mg PO Q6HR [facility] Last Admin: 05/19/17 11:22 Dose: 250 mg Objective Vital Signs - 12hr 05/19/17 05/19/17 05/19/17 02:15 02:30 02:45 Temperature Pulse Rate 100 H 82 76 Pulse Rate [ Anterior Bilateral Throughout] Pulse Rate [ Bilateral Bases ] Pulse Rate [ From Monitor] Respiratory 26 H 24 23 Rate Respiratory Rate [Anterior Bilateral Throughout] Respiratory Rate [Bilateral Bases] Blood Pressure 139/69 126/55 125/55 O2 Sat by Pulse 100 100 100 Oximetry 05/19/17 05/19/17 05/19/17 03:00 03:15 03:30 Temperature Pulse Rate 79 84 89 Pulse Rate [ Anterior Bilateral Throughout] Pulse Rate [ Bilateral Bases ] Pulse Rate [ From Monitor] Respiratory 25 H 23 21 Rate Respiratory Rate [Anterior Bilateral Throughout] Respiratory Rate [Bilateral Bases] Blood Pressure 130/52 130/55 126/61 O2 Sat by Pulse 100 100 100 Oximetry 05/19/17 05/19/17 05/19/17 03:33 03:45 04:00 Temperature 99.1 F Pulse Rate 88 79 Pulse Rate [ Anterior Bilateral Throughout] Pulse Rate [ Bilateral Bases ] Pulse Rate [ 79 From Monitor] Respiratory 22 20 Rate Respiratory Rate [Anterior Bilateral Throughout] Respiratory Rate [Bilateral Bases] Blood Pressure 126/67 128/56 O2 Sat by Pulse 100 100 Oximetry 05/19/17 05/19/17 05/19/17 04:15 04:30 04:45 Temperature Pulse Rate 82 77 102 H Pulse Rate [ Anterior Bilateral Throughout] Pulse Rate [ Bilateral Bases ] Pulse Rate [ From Monitor] Respiratory 22 24 24 Rate Respiratory Rate [Anterior Bilateral Throughout] Respiratory Rate [Bilateral Bases] Blood Pressure 122/49 126/56 129/61 O2 Sat by Pulse 100 100 Oximetry 05/19/17 05/19/17 05/19/17 05:00 05:15 05:30 Temperature Pulse Rate 86 100 H 76 Pulse Rate [ Anterior Bilateral Throughout] Pulse Rate [ Bilateral Bases ] Pulse Rate [ From Monitor] Respiratory 24 25 H 23 Rate Respiratory Rate [Anterior Bilateral Throughout] Respiratory Rate [Bilateral Bases] Blood Pressure 92/48 131/66 130/56 O2 Sat by Pulse 100 100 Oximetry 05/19/17 05/19/17 05/19/17 05:45 06:00 06:15 Temperature Pulse Rate 86 79 74 Pulse Rate [ Anterior Bilateral Throughout] Pulse Rate [ Bilateral Bases ] Pulse Rate [ From Monitor] Respiratory 25 H 24 22 Rate Respiratory Rate [Anterior Bilateral Throughout] Respiratory Rate [Bilateral Bases] Blood Pressure 129/54 128/53 108/46 O2 Sat by Pulse 100 100 Oximetry 05/19/17 05/19/17 05/19/17 06:30 06:45 07:00 Temperature Pulse Rate 78 83 93 H Pulse Rate [ Anterior Bilateral Throughout] Pulse Rate [ Bilateral Bases ] Pulse Rate [ From Monitor] Respiratory 26 H 24 25 H Rate Respiratory Rate [Anterior Bilateral Throughout] Respiratory Rate [Bilateral Bases] Blood Pressure 115/53 100/50 117/59 O2 Sat by Pulse 100 100 100 Oximetry 05/19/17 05/19/17 05/19/17 07:15 07:30 07:45 Temperature Pulse Rate 97 H 96 H 92 H Pulse Rate [ Anterior Bilateral Throughout] Pulse Rate [ Bilateral Bases ] Pulse Rate [ From Monitor] Respiratory 17 21 19 Rate Respiratory Rate [Anterior Bilateral Throughout] Respiratory Rate [Bilateral Bases] Blood Pressure 103/57 115/62 105/55 O2 Sat by Pulse 100 100 Oximetry 05/19/17 05/19/17 05/19/17 08:00 08:06 08:15 Temperature 99.0 F Pulse Rate 101 H 93 H Pulse Rate [ Anterior Bilateral Throughout] Pulse Rate [ Bilateral Bases ] Pulse Rate [ From Monitor] Respiratory 25 H Rate Respiratory Rate [Anterior Bilateral Throughout] Respiratory Rate [Bilateral Bases] Blood Pressure 105/55 88/52 O2 Sat by Pulse 100 100 Oximetry 05/19/17 05/19/17 05/19/17 08:30 08:37 08:41 Temperature Pulse Rate 91 H 89 Pulse Rate [ 95 H Anterior Bilateral Throughout] Pulse Rate [ Bilateral Bases ] Pulse Rate [ From Monitor] Respiratory 25 H 22 Rate Respiratory 24 Rate [Anterior Bilateral Throughout] Respiratory Rate [Bilateral Bases] Blood Pressure 91/55 91/55 O2 Sat by Pulse 100 100 Oximetry 05/19/17 05/19/17 05/19/17 08:45 09:00 09:15 Temperature Pulse Rate 86 85 87 Pulse Rate [ Anterior Bilateral Throughout] Pulse Rate [ 85 Bilateral Bases ] Pulse Rate [ From Monitor] Respiratory 28 H 22 23 Rate Respiratory Rate [Anterior Bilateral Throughout] Respiratory 26 H Rate [Bilateral Bases] Blood Pressure 102/48 103/49 110/51 O2 Sat by Pulse 100 100 100 Oximetry 05/19/17 05/19/17 05/19/17 09:30 09:45 10:00 Temperature Pulse Rate 104 H 85 88 Pulse Rate [ Anterior Bilateral Throughout] Pulse Rate [ Bilateral Bases ] Pulse Rate [ From Monitor] Respiratory 22 23 24 Rate Respiratory Rate [Anterior Bilateral Throughout] Respiratory Rate [Bilateral Bases] Blood Pressure 100/43 102/49 101/48 O2 Sat by Pulse 100 100 100 Oximetry 05/19/17 05/19/17 05/19/17 10:15 10:30 10:45 Temperature Pulse Rate 88 86 85 Pulse Rate [ Anterior Bilateral Throughout] Pulse Rate [ Bilateral Bases ] Pulse Rate [ From Monitor] Respiratory 25 H 26 H 24 Rate Respiratory Rate [Anterior Bilateral Throughout] Respiratory Rate [Bilateral Bases] Blood Pressure 93/41 92/45 97/49 O2 Sat by Pulse 100 100 100 Oximetry 05/19/17 05/19/17 05/19/17 11:00 11:15 11:30 Temperature Pulse Rate 94 H 74 79 Pulse Rate [ Anterior Bilateral Throughout] Pulse Rate [ Bilateral Bases ] Pulse Rate [ From Monitor] Respiratory 20 24 25 H Rate Respiratory Rate [Anterior Bilateral Throughout] Respiratory Rate [Bilateral Bases] Blood Pressure 94/52 102/48 93/47 O2 Sat by Pulse 100 100 100 Oximetry 05/19/17 05/19/17 05/19/17 11:45 12:00 12:15 Temperature 99.3 F Pulse Rate 97 H 96 H 92 H Pulse Rate [ Anterior Bilateral Throughout] Pulse Rate [ Bilateral Bases ] Pulse Rate [ 98 H From Monitor] Respiratory 22 19 21 Rate Respiratory Rate [Anterior Bilateral Throughout] Respiratory Rate [Bilateral Bases] Blood Pressure 95/46 94/55 92/49 O2 Sat by Pulse 100 100 100 Oximetry 05/19/17 05/19/17 12:30 12:33 Temperature Pulse Rate 91 H Pulse Rate [ Anterior Bilateral Throughout] Pulse Rate [ Bilateral Bases ] Pulse Rate [ From Monitor] Respiratory 19 Rate Respiratory Rate [Anterior Bilateral Throughout] Respiratory Rate [Bilateral Bases] Blood Pressure 84/47 84/47 O2 Sat by Pulse 100 Oximetry Constitutional: alert, other (critically ill on vent) Eyes: non-icteric ENT: oropharynx moist Neck: supple Effort: normal Ascultation: Bilateral: other (coarse BS bilaterally) Cardiovascular: regular rate and rhythm (no mrg) Gastrointestinal: hypoactive bowel sounds, non-tender, other (mildly distended) Integumentary: normal Extremities: no cyanosis, pink and warm, anasarca (1+ bilateral LE edema) Neurologic: normal mental status, non-focal exam, pupils equal and round, CN II- XII normal Psychiatric: mood appropriate, affect normal CBC and BMP: 05/19/17 Unknown 05/19/17 Unknown ABG, PT/INR, D-dimer: ABG POC ABG pH 7.216 (7.35-7.45) L 05/19/17 06:00 POC ABG pCO2 47.0 (35-45) H 05/19/17 06:00 POC ABG pO2 100 (80-105) 05/19/17 06:00 POC ABG HCO3 19.1 05/19/17 06:00 POC ABG Total CO2 20 05/19/17 06:00 POC ABG O2 Sat 96 05/19/17 06:00 PT/INR, D-dimer D-Dimer 8441.57 ng/mlDDU (0-234) H 05/04/17 Unknown Abnormal lab findings: Abnormal Labs 05/04/17 05/04/17 05/04/17 02:20 18:39 18:39 WBC 24.3 H RBC Hgb Hct RDW 16.4 H Plt Count 658 H Seg Neuts % (Manual) 94.5 H Lymphocytes % (Manual) 2.5 L Seg Neutrophils # Man 23.0 H Lymphocytes # (Manual) 0.6 L Monocytes # (Manual) Eosinophils # (Manual) D-Dimer POC ABG pH POC ABG pCO2 POC ABG pO2 Sodium Potassium 3.2 L Chloride 92.6 L Carbon Dioxide 14 L BUN 66 H Creatinine 6.5 H Glucose POC Glucose Lactic Acid Calcium 7.5 L Ionized Calcium Phosphorus Magnesium ALT 5 L Alkaline Phosphatase 32 L Total Creatine Kinase CK-MB (CK-2) Troponin T C-Reactive Protein Total Protein 5.4 L Albumin 3.0 L Urine WBC (Auto) 100.0 H Urine Creatinine Salicylates Miscellaneous Test 05/04/17 05/04/17 05/04/17 18:39 18:55 Unknown WBC RBC Hgb Hct RDW Plt Count Seg Neuts % (Manual) Lymphocytes % (Manual) Seg Neutrophils # Man Lymphocytes # (Manual) Monocytes # (Manual) Eosinophils # (Manual) D-Dimer POC ABG pH POC ABG pCO2 POC ABG pO2 Sodium Potassium Chloride Carbon Dioxide BUN Creatinine Glucose POC Glucose Lactic Acid 0.40 L Calcium Ionized Calcium Phosphorus Magnesium ALT Alkaline Phosphatase Total Creatine Kinase 155 H CK-MB (CK-2) 4.5 H Troponin T 0.033 H C-Reactive Protein Total Protein Albumin Urine WBC (Auto) Urine Creatinine Salicylates 0.3 L Miscellaneous Test 05/04/17 05/04/17 05/04/17 Unknown Unknown Unknown WBC RBC Hgb Hct RDW Plt Count Seg Neuts % (Manual) Lymphocytes % (Manual) Seg Neutrophils # Man Lymphocytes # (Manual) Monocytes # (Manual) Eosinophils # (Manual) D-Dimer 8441.57 H POC ABG pH POC ABG pCO2 POC ABG pO2 Sodium Potassium Chloride Carbon Dioxide BUN Creatinine Glucose POC Glucose Lactic Acid 0.40 L Calcium Ionized Calcium Phosphorus Magnesium ALT Alkaline Phosphatase Total Creatine Kinase 246 H CK-MB (CK-2) 6.2 H Troponin T C-Reactive Protein Total Protein Albumin Urine WBC (Auto) Urine Creatinine Salicylates Miscellaneous Test 05/05/17 05/05/17 05/05/17 05:20 05:20 05:20 WBC 33.9 H RBC 3.39 L Hgb 9.3 L Hct RDW 16.7 H Plt Count 712 H Seg Neuts % (Manual) 91.0 H Lymphocytes % (Manual) 1.0 L Seg Neutrophils # Man 30.8 H Lymphocytes # (Manual) 0.3 L Monocytes # (Manual) 1.5 H Eosinophils # (Manual) D-Dimer POC ABG pH POC ABG pCO2 POC ABG pO2 Sodium Potassium Chloride Carbon Dioxide 9 L* BUN 53 H Creatinine 5.4 H Glucose POC Glucose Lactic Acid Calcium 6.1 L D Ionized Calcium Phosphorus Magnesium ALT Alkaline Phosphatase Total Creatine Kinase 346 H CK-MB (CK-2) 8.2 H Troponin T C-Reactive Protein Total Protein Albumin Urine WBC (Auto) Urine Creatinine Salicylates Miscellaneous Test 05/05/17 05/05/17 05/05/17 10:43 17:45 17:45 WBC RBC Hgb 8.8 L Hct RDW Plt Count Seg Neuts % (Manual) Lymphocytes % (Manual) Seg Neutrophils # Man Lymphocytes # (Manual) Monocytes # (Manual) Eosinophils # (Manual) D-Dimer POC ABG pH 6.872 L POC ABG pCO2 POC ABG pO2 120 H Sodium Potassium Chloride Carbon Dioxide BUN Creatinine Glucose POC Glucose Lactic Acid Calcium Ionized Calcium 3.5 L Phosphorus Magnesium ALT Alkaline Phosphatase Total Creatine Kinase CK-MB (CK-2) Troponin T C-Reactive Protein Total Protein Albumin Urine WBC (Auto) Urine Creatinine Salicylates Miscellaneous Test 05/05/17 05/05/17 05/05/17 17:45 20:58 Unknown WBC RBC Hgb 9.0 L Hct 29.8 L RDW Plt Count Seg Neuts % (Manual) Lymphocytes % (Manual) Seg Neutrophils # Man Lymphocytes # (Manual) Monocytes # (Manual) Eosinophils # (Manual) D-Dimer POC ABG pH POC ABG pCO2 POC ABG pO2 Sodium Potassium Chloride Carbon Dioxide BUN Creatinine Glucose POC Glucose Lactic Acid Calcium Ionized Calcium Phosphorus 6.20 H Magnesium 1.20 L ALT Alkaline Phosphatase Total Creatine Kinase CK-MB (CK-2) Troponin T C-Reactive Protein Total Protein Albumin Urine WBC (Auto) Urine Creatinine 28.0 H Salicylates Miscellaneous Test 05/06/17 05/06/17 05/06/17 05:09 05:23 07:55 WBC RBC Hgb Hct RDW Plt Count Seg Neuts % (Manual) Lymphocytes % (Manual) Seg Neutrophils # Man Lymphocytes # (Manual) Monocytes # (Manual) Eosinophils # (Manual) D-Dimer POC ABG pH 7.029 L 7.060 L POC ABG pCO2 54.8 H 48.6 H POC ABG pO2 74 L 43 L Sodium Potassium 3.5 L Chloride Carbon Dioxide 18 L D BUN 44 H Creatinine 3.5 H Glucose 252 H POC Glucose Lactic Acid Calcium 5.8 L* Ionized Calcium Phosphorus Magnesium ALT Alkaline Phosphatase Total Creatine Kinase CK-MB (CK-2) Troponin T C-Reactive Protein Total Protein Albumin Urine WBC (Auto) Urine Creatinine Salicylates Miscellaneous Test 05/06/17 05/06/17 05/06/17 07:55 15:28 17:30 WBC RBC Hgb Hct RDW Plt Count Seg Neuts % (Manual) Lymphocytes % (Manual) Seg Neutrophils # Man Lymphocytes # (Manual) Monocytes # (Manual) Eosinophils # (Manual) D-Dimer POC ABG pH 7.066 L POC ABG pCO2 80.9 H POC ABG pO2 65 L Sodium Potassium Chloride Carbon Dioxide BUN Creatinine Glucose POC Glucose Lactic Acid Calcium Ionized Calcium Phosphorus Magnesium ALT Alkaline Phosphatase Total Creatine Kinase CK-MB (CK-2) Troponin T C-Reactive Protein 14.50 H Total Protein Albumin Urine WBC (Auto) Urine Creatinine Salicylates Miscellaneous Test Flexitest 1 H 05/06/17 05/06/17 05/07/17 17:30 Unknown 10:18 WBC 39.2 H 32.9 H RBC 3.27 L Hgb 9.3 L Hct 30.2 L RDW 16.4 H 17.0 H Plt Count 645 H 467 H Seg Neuts % (Manual) Lymphocytes % (Manual) 11.0 L Seg Neutrophils # Man 21.2 H Lymphocytes # (Manual) Monocytes # (Manual) 2.0 H Eosinophils # (Manual) D-Dimer POC ABG pH POC ABG pCO2 POC ABG pO2 Sodium Potassium 3.4 L Chloride Carbon Dioxide BUN 41 H Creatinine 3.2 H Glucose 265 H POC Glucose Lactic Acid Calcium 6.7 L D Ionized Calcium Phosphorus Magnesium ALT Alkaline Phosphatase Total Creatine Kinase CK-MB (CK-2) Troponin T C-Reactive Protein Total Protein Albumin Urine WBC (Auto) Urine Creatinine Salicylates Miscellaneous Test 05/07/17 05/07/17 05/08/17 11:32 12:36 05:45 WBC 31.1 H RBC 3.41 L Hgb 9.8 L Hct RDW 16.9 H Plt Count Seg Neuts % (Manual) 96.0 H Lymphocytes % (Manual) 1.0 L Seg Neutrophils # Man 29.9 H Lymphocytes # (Manual) 0.3 L Monocytes # (Manual) Eosinophils # (Manual) D-Dimer POC ABG pH 7.290 L POC ABG pCO2 48.3 H POC ABG pO2 51 L Sodium 146 H Potassium 3.1 L Chloride 109.2 H Carbon Dioxide 20 L BUN 38 H Creatinine 2.7 H Glucose 213 H POC Glucose Lactic Acid Calcium 6.6 L Ionized Calcium Phosphorus Magnesium ALT Alkaline Phosphatase Total Creatine Kinase CK-MB (CK-2) Troponin T C-Reactive Protein Total Protein Albumin Urine WBC (Auto) Urine Creatinine Salicylates Miscellaneous Test 05/08/17 05/08/17 05/09/17 05:45 18:55 04:05 WBC 26.1 H RBC Hgb Hct RDW 17.6 H Plt Count Seg Neuts % (Manual) Lymphocytes % (Manual) 5.0 L Seg Neutrophils # Man 16.7 H Lymphocytes # (Manual) Monocytes # (Manual) Eosinophils # (Manual) D-Dimer POC ABG pH POC ABG pCO2 POC ABG pO2 Sodium 150 H Potassium Chloride 115.4 H 112.2 H Carbon Dioxide 20 L 18 L BUN 39 H 45 H Creatinine 2.4 H 2.3 H Glucose 160 H 219 H POC Glucose Lactic Acid Calcium 6.6 L 7.2 L Ionized Calcium Phosphorus Magnesium 1.40 L ALT 6 L Alkaline Phosphatase Total Creatine Kinase CK-MB (CK-2) Troponin T C-Reactive Protein Total Protein 4.1 L D Albumin 2.0 L Urine WBC (Auto) Urine Creatinine Salicylates Miscellaneous Test 05/09/17 05/09/17 05/09/17 04:05 05:15 05:45 WBC RBC Hgb Hct RDW Plt Count Seg Neuts % (Manual) Lymphocytes % (Manual) Seg Neutrophils # Man Lymphocytes # (Manual) Monocytes # (Manual) Eosinophils # (Manual) D-Dimer POC ABG pH POC ABG pCO2 POC ABG pO2 Sodium 130 L D Potassium 3.4 L D Chloride 94.6 L Carbon Dioxide 19 L BUN 39 H Creatinine 2.1 H Glucose 549 H* 189 H POC Glucose 181 H Lactic Acid Calcium 6.6 L Ionized Calcium Phosphorus Magnesium ALT 6 L Alkaline Phosphatase 31 L Total Creatine Kinase CK-MB (CK-2) Troponin T C-Reactive Protein Total Protein 3.5 L Albumin 2.0 L Urine WBC (Auto) Urine Creatinine Salicylates Miscellaneous Test 05/09/17 05/09/17 05/09/17 08:03 11:08 16:15 WBC RBC Hgb Hct RDW Plt Count Seg Neuts % (Manual) Lymphocytes % (Manual) Seg Neutrophils # Man Lymphocytes # (Manual) Monocytes # (Manual) Eosinophils # (Manual) D-Dimer POC ABG pH POC ABG pCO2 POC ABG pO2 Sodium Potassium Chloride 107.8 H Carbon Dioxide 21 L BUN 43 H Creatinine 2.4 H Glucose 195 H POC Glucose 299 H 111 H Lactic Acid Calcium 7.1 L Ionized Calcium Phosphorus Magnesium ALT Alkaline Phosphatase Total Creatine Kinase CK-MB (CK-2) Troponin T C-Reactive Protein Total Protein 3.9 L Albumin 2.3 L Urine WBC (Auto) Urine Creatinine Salicylates Miscellaneous Test 05/09/17 05/10/17 05/10/17 23:05 05:00 05:00 WBC 20.9 H RBC 3.53 L Hgb Hct RDW 17.3 H Plt Count Seg Neuts % (Manual) 72.0 H Lymphocytes % (Manual) 8.0 L Seg Neutrophils # Man 15.0 H Lymphocytes # (Manual) Monocytes # (Manual) Eosinophils # (Manual) D-Dimer POC ABG pH POC ABG pCO2 POC ABG pO2 Sodium 135 L D Potassium 3.2 L Chloride Carbon Dioxide 21 L BUN 45 H Creatinine 2.2 H Glucose 308 H POC Glucose 336 H Lactic Acid Calcium 7.1 L Ionized Calcium Phosphorus Magnesium ALT 5 L Alkaline Phosphatase 30 L Total Creatine Kinase CK-MB (CK-2) Troponin T C-Reactive Protein Total Protein 3.8 L Albumin 2.1 L Urine WBC (Auto) Urine Creatinine Salicylates Miscellaneous Test 05/10/17 05/10/17 05/10/17 07:28 11:36 16:03 WBC RBC Hgb Hct RDW Plt Count Seg Neuts % (Manual) Lymphocytes % (Manual) Seg Neutrophils # Man Lymphocytes # (Manual) Monocytes # (Manual) Eosinophils # (Manual) D-Dimer POC ABG pH POC ABG pCO2 POC ABG pO2 Sodium Potassium Chloride Carbon Dioxide BUN Creatinine Glucose POC Glucose 154 H 184 H 162 H Lactic Acid Calcium Ionized Calcium Phosphorus Magnesium ALT Alkaline Phosphatase Total Creatine Kinase CK-MB (CK-2) Troponin T C-Reactive Protein Total Protein Albumin Urine WBC (Auto) Urine Creatinine Salicylates Miscellaneous Test 05/10/17 05/11/17 05/11/17 21:13 06:50 06:50 WBC 24.4 H RBC Hgb Hct RDW 17.4 H Plt Count Seg Neuts % (Manual) Lymphocytes % (Manual) 5.0 L Seg Neutrophils # Man 16.3 H Lymphocytes # (Manual) Monocytes # (Manual) 1.0 H Eosinophils # (Manual) D-Dimer POC ABG pH POC ABG pCO2 POC ABG pO2 Sodium Potassium 3.4 L Chloride Carbon Dioxide BUN 50 H Creatinine 2.8 H Glucose 131 H POC Glucose 188 H Lactic Acid Calcium 7.6 L Ionized Calcium Phosphorus Magnesium ALT < 5 L Alkaline Phosphatase 25 L Total Creatine Kinase CK-MB (CK-2) Troponin T C-Reactive Protein Total Protein 3.6 L Albumin 2.0 L Urine WBC (Auto) Urine Creatinine Salicylates Miscellaneous Test 05/11/17 05/11/17 05/11/17 09:33 11:45 15:46 WBC RBC Hgb Hct RDW Plt Count Seg Neuts % (Manual) Lymphocytes % (Manual) Seg Neutrophils # Man Lymphocytes # (Manual) Monocytes # (Manual) Eosinophils # (Manual) D-Dimer POC ABG pH POC ABG pCO2 POC ABG pO2 Sodium Potassium Chloride Carbon Dioxide BUN Creatinine Glucose POC Glucose 140 H 157 H 137 H Lactic Acid Calcium Ionized Calcium Phosphorus Magnesium ALT Alkaline Phosphatase Total Creatine Kinase CK-MB (CK-2) Troponin T C-Reactive Protein Total Protein Albumin Urine WBC (Auto) Urine Creatinine Salicylates Miscellaneous Test 05/11/17 05/11/17 05/12/17 17:50 20:58 05:00 WBC 23.1 H RBC 3.59 L Hgb Hct RDW 17.1 H Plt Count Seg Neuts % (Manual) 94.0 H Lymphocytes % (Manual) 0 L Seg Neutrophils # Man 21.7 H Lymphocytes # (Manual) 0.0 L Monocytes # (Manual) Eosinophils # (Manual) D-Dimer POC ABG pH POC ABG pCO2 POC ABG pO2 Sodium Potassium Chloride Carbon Dioxide BUN Creatinine Glucose POC Glucose 155 H Lactic Acid Calcium Ionized Calcium Phosphorus Magnesium ALT Alkaline Phosphatase Total Creatine Kinase CK-MB (CK-2) Troponin T C-Reactive Protein Total Protein Albumin Urine WBC (Auto) 27.0 H Urine Creatinine Salicylates Miscellaneous Test 05/12/17 05/12/17 05/12/17 05:00 08:28 11:28 WBC RBC Hgb Hct RDW Plt Count Seg Neuts % (Manual) Lymphocytes % (Manual) Seg Neutrophils # Man Lymphocytes # (Manual) Monocytes # (Manual) Eosinophils # (Manual) D-Dimer POC ABG pH POC ABG pCO2 POC ABG pO2 Sodium Potassium Chloride 111.7 H Carbon Dioxide BUN 53 H Creatinine 2.8 H Glucose 102 H POC Glucose 130 H 171 H Lactic Acid Calcium 6.9 L Ionized Calcium Phosphorus Magnesium ALT < 5 L Alkaline Phosphatase 25 L Total Creatine Kinase CK-MB (CK-2) Troponin T C-Reactive Protein Total Protein 3.3 L Albumin 1.7 L Urine WBC (Auto) Urine Creatinine Salicylates Miscellaneous Test 05/12/17 05/13/17 05/13/17 22:20 06:54 06:54 WBC 20.8 H RBC 3.17 L Hgb 9.2 L Hct 28.9 L RDW 17.7 H Plt Count Seg Neuts % (Manual) 93.0 H Lymphocytes % (Manual) 1.0 L Seg Neutrophils # Man 19.3 H Lymphocytes # (Manual) 0.2 L Monocytes # (Manual) Eosinophils # (Manual) 0.6 H D-Dimer POC ABG pH POC ABG pCO2 POC ABG pO2 Sodium Potassium 3.3 L Chloride 110.0 H Carbon Dioxide 20 L BUN 48 H Creatinine 2.8 H Glucose 119 H POC Glucose 179 H Lactic Acid Calcium 7.4 L Ionized Calcium Phosphorus Magnesium ALT Alkaline Phosphatase Total Creatine Kinase CK-MB (CK-2) Troponin T C-Reactive Protein Total Protein Albumin Urine WBC (Auto) Urine Creatinine Salicylates Miscellaneous Test 05/13/17 05/13/17 05/13/17 07:35 12:52 23:32 WBC RBC Hgb Hct RDW Plt Count Seg Neuts % (Manual) Lymphocytes % (Manual) Seg Neutrophils # Man Lymphocytes # (Manual) Monocytes # (Manual) Eosinophils # (Manual) D-Dimer POC ABG pH POC ABG pCO2 POC ABG pO2 Sodium Potassium Chloride Carbon Dioxide BUN Creatinine Glucose POC Glucose 139 H 159 H 179 H Lactic Acid Calcium Ionized Calcium Phosphorus Magnesium ALT Alkaline Phosphatase Total Creatine Kinase CK-MB (CK-2) Troponin T C-Reactive Protein Total Protein Albumin Urine WBC (Auto) Urine Creatinine Salicylates Miscellaneous Test 05/14/17 05/14/17 05/14/17 04:00 05:00 07:30 WBC 19.3 H RBC 3.16 L Hgb 9.1 L Hct 29.1 L RDW 17.9 H Plt Count Seg Neuts % (Manual) 87.0 H Lymphocytes % (Manual) 2.0 L Seg Neutrophils # Man 16.8 H Lymphocytes # (Manual) 0.4 L Monocytes # (Manual) 1.0 H Eosinophils # (Manual) 0.6 H D-Dimer POC ABG pH POC ABG pCO2 POC ABG pO2 Sodium 146 H Potassium Chloride 114.7 H Carbon Dioxide 19 L BUN 43 H Creatinine 2.5 H Glucose POC Glucose 110 H Lactic Acid Calcium 7.5 L Ionized Calcium Phosphorus Magnesium ALT Alkaline Phosphatase Total Creatine Kinase CK-MB (CK-2) Troponin T C-Reactive Protein Total Protein Albumin Urine WBC (Auto) Urine Creatinine Salicylates Miscellaneous Test 05/14/17 05/14/17 05/14/17 11:43 15:44 20:10 WBC RBC Hgb Hct RDW Plt Count Seg Neuts % (Manual) Lymphocytes % (Manual) Seg Neutrophils # Man Lymphocytes # (Manual) Monocytes # (Manual) Eosinophils # (Manual) D-Dimer POC ABG pH POC ABG pCO2 POC ABG pO2 Sodium Potassium Chloride Carbon Dioxide BUN Creatinine Glucose POC Glucose 169 H 201 H 223 H Lactic Acid Calcium Ionized Calcium Phosphorus Magnesium ALT Alkaline Phosphatase Total Creatine Kinase CK-MB (CK-2) Troponin T C-Reactive Protein Total Protein Albumin Urine WBC (Auto) Urine Creatinine Salicylates Miscellaneous Test 05/15/17 05/15/17 05/15/17 06:10 08:50 12:57 WBC RBC Hgb Hct RDW Plt Count Seg Neuts % (Manual) Lymphocytes % (Manual) Seg Neutrophils # Man Lymphocytes # (Manual) Monocytes # (Manual) Eosinophils # (Manual) D-Dimer POC ABG pH POC ABG pCO2 POC ABG pO2 Sodium Potassium Chloride 113.6 H Carbon Dioxide 18 L BUN 43 H Creatinine 2.7 H Glucose 123 H POC Glucose 204 H 127 H Lactic Acid Calcium 7.2 L Ionized Calcium Phosphorus Magnesium ALT Alkaline Phosphatase Total Creatine Kinase CK-MB (CK-2) Troponin T C-Reactive Protein Total Protein Albumin Urine WBC (Auto) Urine Creatinine Salicylates Miscellaneous Test 05/15/17 05/15/17 05/15/17 17:43 21:29 23:51 WBC RBC Hgb Hct RDW Plt Count Seg Neuts % (Manual) Lymphocytes % (Manual) Seg Neutrophils # Man Lymphocytes # (Manual) Monocytes # (Manual) Eosinophils # (Manual) D-Dimer POC ABG pH 6.983 L POC ABG pCO2 67.5 H POC ABG pO2 Sodium Potassium Chloride Carbon Dioxide BUN Creatinine Glucose POC Glucose 121 H 129 H Lactic Acid Calcium Ionized Calcium Phosphorus Magnesium ALT Alkaline Phosphatase Total Creatine Kinase CK-MB (CK-2) Troponin T C-Reactive Protein Total Protein Albumin Urine WBC (Auto) Urine Creatinine Salicylates Miscellaneous Test 05/16/17 05/16/17 05/16/17 00:15 06:00 07:46 WBC RBC Hgb Hct RDW Plt Count Seg Neuts % (Manual) Lymphocytes % (Manual) Seg Neutrophils # Man Lymphocytes # (Manual) Monocytes # (Manual) Eosinophils # (Manual) D-Dimer POC ABG pH POC ABG pCO2 POC ABG pO2 Sodium Potassium Chloride 114.2 H Carbon Dioxide 17 L BUN 44 H Creatinine 3.3 H Glucose 118 H POC Glucose 135 H Lactic Acid 0.60 L Calcium 7.5 L Ionized Calcium Phosphorus Magnesium ALT Alkaline Phosphatase Total Creatine Kinase CK-MB (CK-2) Troponin T C-Reactive Protein Total Protein Albumin Urine WBC (Auto) Urine Creatinine Salicylates Miscellaneous Test 05/16/17 05/16/17 05/16/17 09:38 10:20 10:20 WBC 18.6 H RBC 3.08 L Hgb 9.0 L Hct 29.0 L RDW 18.8 H Plt Count Seg Neuts % (Manual) Lymphocytes % (Manual) 5.0 L Seg Neutrophils # Man 11.3 H Lymphocytes # (Manual) 0.9 L Monocytes # (Manual) 1.3 H Eosinophils # (Manual) D-Dimer POC ABG pH 7.081 L POC ABG pCO2 46.3 H POC ABG pO2 107 H Sodium Potassium Chloride 114.9 H Carbon Dioxide 14 L BUN 44 H Creatinine 3.0 H Glucose 115 H POC Glucose Lactic Acid Calcium 7.3 L Ionized Calcium Phosphorus 5.40 H Magnesium ALT < 5 L Alkaline Phosphatase 17 L Total Creatine Kinase CK-MB (CK-2) Troponin T C-Reactive Protein Total Protein 4.2 L D Albumin 2.9 L Urine WBC (Auto) Urine Creatinine Salicylates Miscellaneous Test 05/17/17 05/17/17 05/17/17 03:44 04:00 05:00 WBC 21.9 H RBC 2.89 L Hgb 8.3 L Hct 26.4 L RDW 18.2 H Plt Count Seg Neuts % (Manual) Lymphocytes % (Manual) 7.0 L Seg Neutrophils # Man 15.3 H Lymphocytes # (Manual) Monocytes # (Manual) 1.5 H Eosinophils # (Manual) D-Dimer POC ABG pH 7.199 L POC ABG pCO2 POC ABG pO2 107 H Sodium Potassium Chloride 111.7 H Carbon Dioxide 16 L BUN 43 H Creatinine 3.4 H Glucose POC Glucose Lactic Acid Calcium 7.3 L Ionized Calcium Phosphorus Magnesium ALT Alkaline Phosphatase Total Creatine Kinase CK-MB (CK-2) Troponin T C-Reactive Protein Total Protein Albumin Urine WBC (Auto) Urine Creatinine Salicylates Miscellaneous Test 05/17/17 05/18/17 05/18/17 05:00 04:43 14:46 WBC RBC Hgb Hct RDW Plt Count Seg Neuts % (Manual) Lymphocytes % (Manual) Seg Neutrophils # Man Lymphocytes # (Manual) Monocytes # (Manual) Eosinophils # (Manual) D-Dimer POC ABG pH 7.251 L 7.227 L POC ABG pCO2 POC ABG pO2 126 H 126 H Sodium Potassium Chloride Carbon Dioxide BUN Creatinine Glucose POC Glucose Lactic Acid Calcium Ionized Calcium Phosphorus Magnesium ALT Alkaline Phosphatase Total Creatine Kinase CK-MB (CK-2) Troponin T C-Reactive Protein 2.30 H Total Protein Albumin Urine WBC (Auto) Urine Creatinine Salicylates Miscellaneous Test 05/18/17 05/18/17 05/18/17 21:30 Unknown Unknown WBC 25.2 H RBC 2.76 L Hgb 8.0 L Hct 24.9 L RDW 17.7 H Plt Count Seg Neuts % (Manual) 86.0 H Lymphocytes % (Manual) 1.0 L Seg Neutrophils # Man 21.7 H Lymphocytes # (Manual) 0.3 L Monocytes # (Manual) 1.5 H Eosinophils # (Manual) D-Dimer POC ABG pH POC ABG pCO2 POC ABG pO2 Sodium Potassium 3.2 L Chloride 108.9 H Carbon Dioxide 19 L BUN 44 H Creatinine 3.6 H Glucose POC Glucose 206 H Lactic Acid Calcium 7.3 L Ionized Calcium Phosphorus Magnesium ALT Alkaline Phosphatase Total Creatine Kinase CK-MB (CK-2) Troponin T C-Reactive Protein Total Protein Albumin Urine WBC (Auto) Urine Creatinine Salicylates Miscellaneous Test 05/19/17 05/19/17 05/19/17 05:26 06:00 11:47 WBC RBC Hgb Hct RDW Plt Count Seg Neuts % (Manual) Lymphocytes % (Manual) Seg Neutrophils # Man Lymphocytes # (Manual) Monocytes # (Manual) Eosinophils # (Manual) D-Dimer POC ABG pH 7.216 L POC ABG pCO2 47.0 H POC ABG pO2 Sodium Potassium Chloride Carbon Dioxide BUN Creatinine Glucose POC Glucose 173 H 203 H Lactic Acid Calcium Ionized Calcium Phosphorus Magnesium ALT Alkaline Phosphatase Total Creatine Kinase CK-MB (CK-2) Troponin T C-Reactive Protein Total Protein Albumin Urine WBC (Auto) Urine Creatinine Salicylates Miscellaneous Test 05/19/17 05/19/17 Unknown Unknown WBC 36.5 H RBC 2.71 L Hgb 7.7 L Hct 24.3 L RDW 18.3 H Plt Count Seg Neuts % (Manual) 79.0 H Lymphocytes % (Manual) 3.0 L Seg Neutrophils # Man 28.8 H Lymphocytes # (Manual) 1.1 L Monocytes # (Manual) 2.6 H Eosinophils # (Manual) D-Dimer POC ABG pH POC ABG pCO2 POC ABG pO2 Sodium Potassium 3.5 L Chloride 108.1 H Carbon Dioxide 20 L BUN 36 H Creatinine 3.1 H Glucose 165 H POC Glucose Lactic Acid Calcium 7.7 L Ionized Calcium Phosphorus Magnesium ALT Alkaline Phosphatase Total Creatine Kinase CK-MB (CK-2) Troponin T C-Reactive Protein Total Protein Albumin Urine WBC (Auto) Urine Creatinine Salicylates Miscellaneous Test Chest x-ray: report reviewed, image reviewed (small bilateral pleural effusions)
--- NOTE | 2017-05-19 16:10 | Progress Note ---
Assessment and Plan Assessment and plan: --Hypokalemia : replaced --Acute hypoxic respiratory failure; on vent,sedation, nebulizers, wean as tolerated and extubate, pulmonary --Septic shock; on Levophed, off vasopressin,monitor blood pressures --C. difficile colitis/leukocytosis, worsening, oral Vanco, IV Flagyl, contact isolation, ID following --Severe sepsis; secondary to colitis, possible pneumonia, ID added meropenem --Acute kidney injury: worsening Creatinine , more dialysis per schedule --UTI; s/p 3 days antibiotics per ID --Metabolic acidosis; IV hydration, hemodialysis as needed --COPD with exacerbation; on vent ,nebulizers and IV antibiotics --Severe hypoalbuminemia/protein calorie Malnutrition; nutritional supplements and supportive care --DVT prophylaxis; heparin renal dose --Full CODE STATUS Guarded prognosis, family aware Consults and recommendations noted and appreciated Critical care time 31 minutes The high probability of a clinically significant, sudden or life threatening deterioration of the [pulmonary ,GI,CV,ID and renal systems ] re and renalquired my full and direct attention, intervention and personal management. The aggregate critical care time was [31 ] minutes. This time is in addition to time spent performing reported procedures but includes the following: [x] Data Review and interpretation [x] Patient assessment and monitoring of vital signs [x] Documentation, counseling [x] Medication orders and management History Interval history: Patient seen and examined in ICU, Medical records reviewed Remains intubated on ventilator support, received hemodialysis yesterday On pressors Hospitalist Physical - Constitutional Vitals: Temp Pulse Resp BP Pulse Ox 99.3 F 96 H 20 84/47 100 05/19/17 12:00 05/19/17 14:41 05/19/17 14:41 05/19/17 12:33 05/19/17 12:33 General appearance: Present: no acute distress, well-nourished, other (intubatd and vent supported) - EENT Eyes: Present: PERRL, EOM intact - Neck Neck: Present: supple, normal ROM - Respiratory Respiratory effort: normal Respiratory: bilateral: diminished, rhonchi, negative: rales, wheezing - Cardiovascular Rhythm: regular Heart Sounds: Present: S1 & S2 - Extremities Extremities: no ischemia, No edema Peripheral Pulses: within normal limits - Abdominal General gastrointestinal: soft, non-tender, non-distended, normal bowel sounds - Integumentary Integumentary: Present: clear, warm - Psychiatric Psychiatric: other (intubated and sedated) - Neurologic Neurologic: other (intubated and sedated) Results - Labs CBC & Chem 7: 05/19/17 Unknown 05/19/17 Unknown Labs: Laboratory Last Values WBC 36.5 K/mm3 (4.5-11.0) H 05/19/17 Unknown RBC 2.71 M/mm3 (3.65-5.03) L 05/19/17 Unknown Hgb 7.7 gm/dl (10.1-14.3) L 05/19/17 Unknown Hct 24.3 % (30.3-42.9) L 05/19/17 Unknown MCV 90 fl (79-97) 05/19/17 Unknown MCH 28 pg (28-32) 05/19/17 Unknown MCHC 32 % (30-34) 05/19/17 Unknown RDW 18.3 % (13.2-15.2) H 05/19/17 Unknown Plt Count 372 K/mm3 (140-440) 05/19/17 Unknown Add Manual Diff Complete 05/19/17 Unknown Total Counted 100 05/19/17 Unknown Seg Neutrophils % Ton Container Filler 05/19/17 Unknown Seg Neuts % (Manual) 79.0 % (40.0-70.0) H 05/19/17 Unknown Band Neutrophils % 11.0 % 05/19/17 Unknown Lymphocytes % (Manual) 3.0 % (13.4-35.0) L 05/19/17 Unknown Reactive Lymphs % (Man) 0 % 05/19/17 Unknown Monocytes % (Manual) 7.0 % (0.0-7.3) 05/19/17 Unknown Eosinophils % (Manual) 0 % (0.0-4.3) 05/19/17 Unknown Basophils % (Manual) 0 % (0.0-1.8) 05/19/17 Unknown Metamyelocytes % 0 % 05/19/17 Unknown Myelocytes % 0 % 05/19/17 Unknown Promyelocytes % 0 % 05/19/17 Unknown Blast Cells % 0 % 05/19/17 Unknown Nucleated RBC % Not Reportable 05/19/17 Unknown Seg Neutrophils # Man 28.8 K/mm3 (1.8-7.7) H 05/19/17 Unknown Band Neutrophils # 4.0 K/mm3 05/19/17 Unknown Lymphocytes # (Manual) 1.1 K/mm3 (1.2-5.4) L 05/19/17 Unknown Abs React Lymphs (Man) 0.0 K/mm3 05/19/17 Unknown Monocytes # (Manual) 2.6 K/mm3 (0.0-0.8) H 05/19/17 Unknown Eosinophils # (Manual) 0.0 K/mm3 (0.0-0.4) 05/19/17 Unknown Basophils # (Manual) 0.0 K/mm3 (0.0-0.1) 05/19/17 Unknown Metamyelocytes # 0.0 K/mm3 05/19/17 Unknown Myelocytes # 0.0 K/mm3 05/19/17 Unknown Promyelocytes # 0.0 K/mm3 05/19/17 Unknown Blast Cells # 0.0 K/mm3 05/19/17 Unknown WBC Morphology Not Reportable 05/19/17 Unknown Hypersegmented Neuts Not Reportable 05/19/17 Unknown Hyposegmented Neuts Not Reportable 05/19/17 Unknown Hypogranular Neuts Not Reportable 05/19/17 Unknown Smudge Cells Not Reportable 05/19/17 Unknown Toxic Granulation Not Reportable 05/19/17 Unknown Toxic Vacuolation Not Reportable 05/19/17 Unknown Dohle Bodies Not Reportable 05/19/17 Unknown Pelger-Huet Anomaly Not Reportable 05/19/17 Unknown Neisha Rods Not Reportable 05/19/17 Unknown Platelet Estimate Consistent w auto 05/19/17 Unknown Clumped Platelets Not Reportable 05/19/17 Unknown Plt Clumps, EDTA Not Reportable 05/19/17 Unknown Large Platelets Not Reportable 05/19/17 Unknown Giant Platelets Not Reportable 05/19/17 Unknown Platelet Satelliting Not Reportable 05/19/17 Unknown Plt Morphology Comment Not Reportable 05/19/17 Unknown RBC Morphology Not Reportable 05/19/17 Unknown Dimorphic RBCs Not Reportable 05/19/17 Unknown Polychromasia Not Reportable 05/19/17 Unknown Hypochromasia 1+ 05/19/17 Unknown Poikilocytosis Not Reportable 05/19/17 Unknown Anisocytosis 1+ 05/19/17 Unknown Microcytosis Not Reportable 05/19/17 Unknown Macrocytosis Not Reportable 05/19/17 Unknown Spherocytes Not Reportable 05/19/17 Unknown Pappenheimer Bodies Not Reportable 05/19/17 Unknown Sickle Cells Not Reportable 05/19/17 Unknown Target Cells Rare 05/19/17 Unknown Tear Drop Cells Not Reportable 05/19/17 Unknown Ovalocytes Not Reportable 05/19/17 Unknown Helmet Cells Not Reportable 05/19/17 Unknown [place] Bodies Not Reportable 05/19/17 Unknown [place] Rings Not Reportable 05/19/17 Unknown Damián Cells Not Reportable 05/19/17 Unknown Bite Cells Not Reportable 05/19/17 Unknown Crenated Cell Not Reportable 05/19/17 Unknown Elliptocytes Not Reportable 05/19/17 Unknown Acanthocytes (Spur) Not Reportable 05/19/17 Unknown Rouleaux Not Reportable 05/19/17 Unknown Hemoglobin C Crystals Not Reportable 05/19/17 Unknown Schistocytes Rare 05/19/17 Unknown Malaria parasites Not Reportable 05/19/17 Unknown Herve Bodies Not Reportable 05/19/17 Unknown Hem Pathologist Commnt No 05/19/17 Unknown D-Dimer 8441.57 ng/mlDDU (0-234) H 05/04/17 Unknown POC ABG pH 7.216 (7.35-7.45) L 05/19/17 06:00 POC ABG pCO2 47.0 (35-45) H 05/19/17 06:00 POC ABG pO2 100 (80-105) 05/19/17 06:00 POC ABG HCO3 19.1 05/19/17 06:00 POC ABG Total CO2 20 05/19/17 06:00 POC ABG O2 Sat 96 05/19/17 06:00 POC ABG Base Excess -9 05/19/17 06:00 FiO2 35 % 05/19/17 06:00 Sodium 143 mmol/L (137-145) 05/19/17 Unknown Potassium 3.5 mmol/L (3.6-5.0) L 05/19/17 Unknown Chloride 108.1 mmol/L (98-107) H 05/19/17 Unknown Carbon Dioxide 20 mmol/L (22-30) L 05/19/17 Unknown Anion Gap 18 mmol/L 05/19/17 Unknown BUN 36 mg/dL (7-17) H 05/19/17 Unknown Creatinine 3.1 mg/dL (0.7-1.2) H 05/19/17 Unknown Estimated GFR 18 ml/min 05/19/17 Unknown BUN/Creatinine Ratio 12 % 05/19/17 Unknown Glucose 165 mg/dL (65-100) H 05/19/17 Unknown POC Glucose 203 (70-105) H 05/19/17 11:47 Lactic Acid 0.60 mmol/L (0.7-2.0) L 05/16/17 00:15 Calcium 7.7 mg/dL (8.4-10.2) L 05/19/17 Unknown Ionized Calcium 3.5 mg/dL (4.8-5.6) L 05/05/17 17:45 Phosphorus 5.40 mg/dL (2.5-4.5) H 05/16/17 10:20 Magnesium 1.70 mg/dL (1.7-2.3) 05/19/17 Unknown Total Bilirubin < 0.20 mg/dL (0.1-1.2) 05/16/17 10:20 AST 14 units/L (5-40) 05/16/17 10:20 ALT < 5 units/L (7-56) L 05/16/17 10:20 Alkaline Phosphatase 17 units/L (35-129) L 05/16/17 10:20 Total Creatine Kinase 346 units/L (30-135) H 05/05/17 05:20 CK-MB (CK-2) 8.2 ng/mL (0.0-4.0) H 05/05/17 05:20 CK-MB (CK-2) Rel Index 2.3 (0-4) 05/05/17 05:20 Troponin T 0.027 ng/mL (0.00-0.029) 05/05/17 05:20 C-Reactive Protein 2.30 mg/dL (0.00-1.30) H 05/17/17 05:00 Total Protein 4.2 g/dL (6.3-8.2) L D 05/16/17 10:20 Albumin 2.9 g/dL (3.9-5) L 05/16/17 10:20 Albumin/Globulin Ratio 2.2 % 05/16/17 10:20 Triglycerides 149 mg/dL (2-149) 05/04/17 18:55 Cholesterol 185 mg/dL (50-199) 05/04/17 18:55 LDL Cholesterol Direct 103 mg/dL (50-130) 05/04/17 18:55 HDL Cholesterol 53 mg/dL (40-59) 05/04/17 18:55 Cholesterol/HDL Ratio 3.49 % 05/04/17 18:55 TSH 1.780 mlU/mL (0.270-4.200) 05/04/17 18:39 Urine Color Carol (Yellow) 05/11/17 17:50 Urine Turbidity Clear (Clear) 05/11/17 17:50 Urine pH 5.0 (5.0-7.0) 05/11/17 17:50 Ur Specific [place] 1.016 (1.003-1.030) 05/11/17 17:50 Urine Protein 100 mg/dl mg/dL (Negative) 05/11/17 17:50 Urine Glucose (UA) Neg mg/dL (Negative) 05/11/17 17:50 Urine Ketones Neg mg/dL (Negative) 05/11/17 17:50 Urine Blood Mod (Negative) 05/11/17 17:50 Urine Nitrite Neg (Negative) 05/11/17 17:50 Urine Bilirubin Neg (Negative) 05/11/17 17:50 Urine Urobilinogen < 2.0 mg/dL (<2.0) 05/11/17 17:50 Ur Leukocyte Esterase Mod (Negative) 05/11/17 17:50 Urine WBC (Auto) 27.0 /HPF (0.0-6.0) H 05/11/17 17:50 Urine RBC (Auto) 15.0 /HPF (0.0-6.0) 05/11/17 17:50 U Epithel Cells (Auto) < 1.0 /HPF (0-13.0) 05/11/17 17:50 Urine Bacteria (Auto) 1+ /HPF (Negative) 05/11/17 17:50 Amorphous Crystals Few 05/11/17 17:50 Urine Mucus Few /HPF 05/11/17 17:50 Urine Creatinine 28.0 mg/dL (0.1-20.0) H 05/05/17 Unknown Urine Sodium 129 mmol/L 05/05/17 Unknown Urine Potassium 3.67 mmol/L 05/05/17 Unknown Urine Chloride 115.6 mmolL (110-250) 05/05/17 Unknown Salicylates 0.3 mg/dL (2.8-20.0) L 05/04/17 18:39 Urine Opiates Screen Presumptive negative 05/04/17 02:20 Urine Methadone Screen Presumptive negative 05/04/17 02:20 Acetaminophen < 15.0 ug/mL (10.0-30.0) 05/04/17 18:39 Ur Barbiturates Screen Presumptive negative 05/04/17 02:20 Ur Phencyclidine Scrn Presumptive negative 05/04/17 02:20 Ur Amphetamines Screen Presumptive negative 05/04/17 02:20 U Benzodiazepines Scrn Presumptive negative 05/04/17 02:20 Urine Cocaine Screen Presumptive negative 05/04/17 02:20 U Marijuana (THC) Screen Presumptive negative 05/04/17 02:20 Drugs of Abuse Note Disclamer 05/04/17 02:20 Plasma/Serum Alcohol < 0.01 gm% (0-0.07) 05/04/17 18:39 Miscellaneous Test Flexitest 1 H 05/06/17 17:30
--- NOTE | 2017-05-19 17:20 | Cat Scan Report ---
FINAL REPORT EXAM: CT ABDOMEN PELVIS WO CON HISTORY: Cdiff colitis, Sepsis, Abd pain TECHNIQUE: CT abdomen and pelvis with oral contrast. No intravenous contrast administered. PRIORS: Comparison is dated AugustMay 04, 2017 FINDINGS: There are moderate to large bilateral pleural effusions new since the prior exam. There is extensive body wall edema present There is moderate amount of ascites present within the upper abdomen. This is new since prior study. Nonenhanced images of the liver demonstrate no acute change. There is an NG tube distal to the body of the stomach. And there is extensive mucosal thickening throughout the colon consistent with colitis. Rectal tube is present. Small bowel loops are nondistended there is diffuse small-bowel edema noted. No free air identified. There is Castillo present within the urinary bladder which is decompressed IMPRESSION: Large bilateral pleural effusions, ascites and extensive body wall edema new since the prior exam. Suspect anasarca NG tube and Castillo catheter in satisfactory position Extensive colonic wall thickening consistent with colitis which appears similar to the prior exam.
[2017-05-19 19:40] LABS: Bacteria,Urine 2+ /HPF (Negative); Bilirubin,Urine NEG (Negative); Blood,Urine MOD (Negative); Granular Casts,Urine 1 /LPF; Ketones,Urine NEG (Negative); Leukocyte Esterase,Urine LG (Negative); Mucus,Urine FEW /HPF; Nitrite,Urine NEG (Negative); Urobilinogen,Urine < 2.0 mg/dL (<2.0)
[2017-05-19] MEDS: MORPHINE IV PRN (23:53)
[2017-05-20] MEDS: VANCOMYCIN PO PO SCH ×4 (00:59→18:33)
[2017-05-20] MEDS: FLAGYL 500 MG/100 ML 500 MG/100 ML BAG IV SCH ×4 (01:00→18:34)
[2017-05-20] MEDS: LEVOPHED 8 MG in NACL 0.9% 250ML 242 ML IV SCH ×3 (02:19→14:15)
[2017-05-20 05:17] LABS: ISTAT Base Excess -2; ISTAT HCO3 23.9; ISTAT PCO2 46.3 (35-45); ISTAT PH 7.322 (7.35-7.45); ISTAT PO2 160 (80-105); ISTAT SO2 99; ISTAT TCO2 25
[2017-05-20 05:47] LABS: Hematocrit 23.7 % (30.3-42.9); Hemoglobin 7.6 gm/dl (10.1-14.3); Mean Corpuscular HGB Conc 32 % (30-34); Mean Corpuscular Hemoglobin 29 pg (28-32); Mean Corpuscular Volume 90 fl (79-97); Platelet Count 272 K/mm3 (140-440); Red Blood Count 2.65 M/mm3 (3.65-5.03)
[2017-05-20] MEDS: NOVOLOG SUB-Q SCH ×4 (06:00→18:34)
[2017-05-20 06:05] LABS: White Blood Count 44.4 K/mm3 (4.5-11.0)
[2017-05-20 06:11] LABS: Calcium 7.7 mg/dL (8.4-10.2); Magnesium 1.4 mg/dL (1.7-2.3); Potassium 3.5 mmol/L (3.6-5.0)
[2017-05-20 08:01] LABS: Anisocytosis 1+; Basophils % (Manual) 0 % (0.0-1.8); Blastocytes % (Manual) 0 %; Eosinophils % (Manual) 0 % (0.0-4.3); Hypochromasia 1+
[2017-05-20 08:02] LABS: Elliptocytes Few; Ovalocytes Few
[2017-05-20 08:03] LABS: Diff Status Complete; Platelet Estimate Consistent w Auto; Smudge Cells Few
--- NOTE | 2017-05-20 08:26 | Progress Note ---
Assessment and Plan Assessment and plan: --C. difficile colitis/leukocytosis: Worsening colitis, worsening leukocytosis, surgical consultation for possible colectomy continue current antibiotics contact isolation --Acute hypoxic respiratory failure; on vent,sedation, nebulizers, wean as tolerated and extubate, pulmonary --Hypomagnesemia; replace per protocol and monitor levels --Hypokalemia : replaced --Septic shock; on Levophed,monitor blood pressures --Severe sepsis; secondary to colitis, possible pneumonia, ID added meropenem --Acute kidney injury: worsening Creatinine , hemodialysis as needed per renal --UTI; s/p 3 days antibiotics per ID --Metabolic acidosis; hemodialysis as needed --COPD with exacerbation; on vent ,nebulizers and IV antibiotics --Severe hypoalbuminemia/protein calorie Malnutrition; nutritional supplements and supportive care --DVT prophylaxis; heparin renal dose --Full CODE STATUS Guarded prognosis, family aware I discussed with patient's son of pts multiple medical problems, multiorgan involvement and poor prognosis, plan of care and CODE STATUS Full CODE STATUS at this time and Patient will discussed with his family and inform us Critical care time 32 minutes The high probability of a clinically significant, sudden or life threatening deterioration of the [pulmonary ,GI,CV,ID and renal systems ] re and renalquired my full and direct attention, intervention and personal management. The aggregate critical care time was [32 ] minutes. This time is in addition to time spent performing reported procedures but includes the following: [x] Data Review and interpretation [x] Patient assessment and monitoring of vital signs [x] Documentation, counseling [x] Medication orders and management History Interval history: Patient seen and examined medical records reviewed Critically ill, worsening colitis and leukocytosis Remains intubated on ventilatory support and sedated, pressor dependent Hospitalist Physical - Constitutional Vitals: Temp Pulse Resp BP Pulse Ox 97.7 F 77 19 108/52 99 05/20/17 08:00 05/20/17 06:00 05/20/17 06:00 05/20/17 06:00 05/20/17 06:00 General appearance: Present: mild distress, well-nourished, other (intubatd and vent supported) - EENT Eyes: Present: PERRL, EOM intact - Neck Neck: Present: supple, normal ROM - Respiratory Respiratory effort: normal Respiratory: bilateral: diminished, rhonchi, negative: rales, wheezing - Cardiovascular Rhythm: regular Heart Sounds: Present: S1 & S2 - Extremities Extremities: no ischemia Extremity abnormal: edema - Abdominal General gastrointestinal: soft, non-tender, distended (mild), normal bowel sounds - Integumentary Integumentary: Present: clear, warm - Psychiatric Psychiatric: other (unresponsive) - Neurologic Neurologic: other (intubated and sedated) Results - Labs CBC & Chem 7: 05/20/17 05:30 05/20/17 05:30 Labs: Laboratory Last Values WBC 44.4 K/mm3 (4.5-11.0) H* 05/20/17 05:30 RBC 2.65 M/mm3 (3.65-5.03) L 05/20/17 05:30 Hgb 7.6 gm/dl (10.1-14.3) L 05/20/17 05:30 Hct 23.7 % (30.3-42.9) L 05/20/17 05:30 MCV 90 fl (79-97) 05/20/17 05:30 MCH 29 pg (28-32) 05/20/17 05:30 MCHC 32 % (30-34) 05/20/17 05:30 RDW 18.0 % (13.2-15.2) H 05/20/17 05:30 Plt Count 272 K/mm3 (140-440) 05/20/17 05:30 Add Manual Diff Complete 05/20/17 05:30 Total Counted 100 05/20/17 05:30 Seg Neutrophils % [employer] 05/20/17 05:30 Seg Neuts % (Manual) 50.0 % (40.0-70.0) 05/20/17 05:30 Band Neutrophils % 30.0 % 05/20/17 05:30 Lymphocytes % (Manual) 7.0 % (13.4-35.0) L 05/20/17 05:30 Reactive Lymphs % (Man) 0 % 05/20/17 05:30 Monocytes % (Manual) 12.0 % (0.0-7.3) H 05/20/17 05:30 Eosinophils % (Manual) 0 % (0.0-4.3) 05/20/17 05:30 Basophils % (Manual) 0 % (0.0-1.8) 05/20/17 05:30 Metamyelocytes % 1.0 % 05/20/17 05:30 Myelocytes % 0 % 05/20/17 05:30 Promyelocytes % 0 % 05/20/17 05:30 Blast Cells % 0 % 05/20/17 05:30 Nucleated RBC % Not Reportable 05/20/17 05:30 Seg Neutrophils # Man 22.2 K/mm3 (1.8-7.7) H 05/20/17 05:30 Band Neutrophils # 13.3 K/mm3 05/20/17 05:30 Lymphocytes # (Manual) 3.1 K/mm3 (1.2-5.4) 05/20/17 05:30 Abs React Lymphs (Man) 0.0 K/mm3 05/20/17 05:30 Monocytes # (Manual) 5.3 K/mm3 (0.0-0.8) H 05/20/17 05:30 Eosinophils # (Manual) 0.0 K/mm3 (0.0-0.4) 05/20/17 05:30 Basophils # (Manual) 0.0 K/mm3 (0.0-0.1) 05/20/17 05:30 Metamyelocytes # 0.4 K/mm3 05/20/17 05:30 Myelocytes # 0.0 K/mm3 05/20/17 05:30 Promyelocytes # 0.0 K/mm3 05/20/17 05:30 Blast Cells # 0.0 K/mm3 05/20/17 05:30 WBC Morphology Not Reportable 05/20/17 05:30 Hypersegmented Neuts Not Reportable 05/20/17 05:30 Hyposegmented Neuts Not Reportable 05/20/17 05:30 Hypogranular Neuts Not Reportable 05/20/17 05:30 Smudge Cells Few 05/20/17 05:30 Toxic Granulation Not Reportable 05/20/17 05:30 Toxic Vacuolation Not Reportable 05/20/17 05:30 Dohle Bodies Not Reportable 05/20/17 05:30 Pelger-Huet Anomaly Not Reportable 05/20/17 05:30 Neisha Rods Not Reportable 05/20/17 05:30 Platelet Estimate Consistent w auto 05/20/17 05:30 Clumped Platelets Not Reportable 05/20/17 05:30 Plt Clumps, EDTA Not Reportable 05/20/17 05:30 Large Platelets Not Reportable 05/20/17 05:30 Giant Platelets Not Reportable 05/20/17 05:30 Platelet Satelliting Not Reportable 05/20/17 05:30 Plt Morphology Comment Not Reportable 05/20/17 05:30 RBC Morphology Not Reportable 05/20/17 05:30 Dimorphic RBCs Not Reportable 05/20/17 05:30 Polychromasia Not Reportable 05/20/17 05:30 Hypochromasia 1+ 05/20/17 05:30 Poikilocytosis Not Reportable 05/20/17 05:30 Anisocytosis 1+ 05/20/17 05:30 Microcytosis Not Reportable 05/20/17 05:30 Macrocytosis Not Reportable 05/20/17 05:30 Spherocytes Not Reportable 05/20/17 05:30 Pappenheimer Bodies Not Reportable 05/20/17 05:30 Sickle Cells Not Reportable 05/20/17 05:30 Target Cells Not Reportable 05/20/17 05:30 Tear Drop Cells Not Reportable 05/20/17 05:30 Ovalocytes Few 05/20/17 05:30 Helmet Cells Not Reportable 05/20/17 05:30 [place] Bodies Not Reportable 05/20/17 05:30 Ignacio Rings Not Reportable 05/20/17 05:30 [place] Cells Not Reportable 05/20/17 05:30 Bite Cells Not Reportable 05/20/17 05:30 Crenated Cell Not Reportable 05/20/17 05:30 Elliptocytes Few 05/20/17 05:30 Acanthocytes (Spur) Not Reportable 05/20/17 05:30 Rouleaux Not Reportable 05/20/17 05:30 Hemoglobin C Crystals Not Reportable 05/20/17 05:30 Schistocytes Not Reportable 05/20/17 05:30 Malaria parasites Not Reportable 05/20/17 05:30 Herve Bodies Not Reportable 05/20/17 05:30 Hem Pathologist Commnt No 05/20/17 05:30 D-Dimer 8441.57 ng/mlDDU (0-234) H 05/04/17 Unknown POC ABG pH 7.322 (7.35-7.45) L 05/20/17 05:03 POC ABG pCO2 46.3 (35-45) H 05/20/17 05:03 POC ABG pO2 160 (80-105) H 05/20/17 05:03 POC ABG HCO3 23.9 05/20/17 05:03 POC ABG Total CO2 25 05/20/17 05:03 POC ABG O2 Sat 99 05/20/17 05:03 POC ABG Base Excess -2 05/20/17 05:03 FiO2 50 % 05/20/17 05:03 Sodium 139 mmol/L (137-145) 05/20/17 05:30 Potassium 3.5 mmol/L (3.6-5.0) L 05/20/17 05:30 Chloride 106.0 mmol/L (98-107) 05/20/17 05:30 Carbon Dioxide 23 mmol/L (22-30) 05/20/17 05:30 Anion Gap 14 mmol/L 05/20/17 05:30 BUN 23 mg/dL (7-17) H 05/20/17 05:30 Creatinine 2.1 mg/dL (0.7-1.2) H 05/20/17 05:30 Estimated GFR 29 ml/min 05/20/17 05:30 BUN/Creatinine Ratio 11 % 05/20/17 05:30 Glucose 167 mg/dL (65-100) H 05/20/17 05:30 POC Glucose 182 (70-105) H 05/20/17 05:44 Lactic Acid 0.60 mmol/L (0.7-2.0) L 05/16/17 00:15 Calcium 7.7 mg/dL (8.4-10.2) L 05/20/17 05:30 Ionized Calcium 3.5 mg/dL (4.8-5.6) L 05/05/17 17:45 Phosphorus 5.40 mg/dL (2.5-4.5) H 05/16/17 10:20 Magnesium 1.40 mg/dL (1.7-2.3) L 05/20/17 05:30 Total Bilirubin < 0.20 mg/dL (0.1-1.2) 05/16/17 10:20 AST 14 units/L (5-40) 05/16/17 10:20 ALT < 5 units/L (7-56) L 05/16/17 10:20 Alkaline Phosphatase 17 units/L (35-129) L 05/16/17 10:20 Total Creatine Kinase 346 units/L (30-135) H 05/05/17 05:20 CK-MB (CK-2) 8.2 ng/mL (0.0-4.0) H 05/05/17 05:20 CK-MB (CK-2) Rel Index 2.3 (0-4) 05/05/17 05:20 Troponin T 0.027 ng/mL (0.00-0.029) 05/05/17 05:20 C-Reactive Protein 2.30 mg/dL (0.00-1.30) H 05/17/17 05:00 Total Protein 4.2 g/dL (6.3-8.2) L D 05/16/17 10:20 Albumin 2.9 g/dL (3.9-5) L 05/16/17 10:20 Albumin/Globulin Ratio 2.2 % 05/16/17 10:20 Triglycerides 149 mg/dL (2-149) 05/04/17 18:55 Cholesterol 185 mg/dL (50-199) 05/04/17 18:55 LDL Cholesterol Direct 103 mg/dL (50-130) 05/04/17 18:55 HDL Cholesterol 53 mg/dL (40-59) 05/04/17 18:55 Cholesterol/HDL Ratio 3.49 % 05/04/17 18:55 TSH 1.780 mlU/mL (0.270-4.200) 05/04/17 18:39 Urine Color Yellow (Yellow) 05/19/17 18:04 Urine Turbidity Clear (Clear) 05/19/17 18:04 Urine pH 5.0 (5.0-7.0) 05/19/17 18:04 Ur Specific [place] 1.014 (1.003-1.030) 05/19/17 18:04 Urine Protein 30 mg/dl mg/dL (Negative) 05/19/17 18:04 Urine Glucose (UA) Neg mg/dL (Negative) 05/19/17 18:04 Urine Ketones Neg mg/dL (Negative) 05/19/17 18:04 Urine Blood Mod (Negative) 05/19/17 18:04 Urine Nitrite Neg (Negative) 05/19/17 18:04 Urine Bilirubin Neg (Negative) 05/19/17 18:04 Urine Urobilinogen < 2.0 mg/dL (<2.0) 05/19/17 18:04 Ur Leukocyte Esterase Lg (Negative) 05/19/17 18:04 Urine WBC (Auto) 78.0 /HPF (0.0-6.0) H 05/19/17 18:04 Urine RBC (Auto) 90.0 /HPF (0.0-6.0) 05/19/17 18:04 U Epithel Cells (Auto) < 1.0 /HPF (0-13.0) 05/19/17 18:04 Urine Bacteria (Auto) 2+ /HPF (Negative) 05/19/17 18:04 Amorphous Crystals Few 05/11/17 17:50 Hyaline Casts 3 /LPF 05/19/17 18:04 Granular Casts 1 /LPF 05/19/17 18:04 Urine Mucus Few /HPF 05/19/17 18:04 Ur Yeast w Hyphae Few /HPF 05/19/17 18:04 Urine Yeast (Budding) 3+ /HPF 05/19/17 18:04 Urine Creatinine 28.0 mg/dL (0.1-20.0) H 05/05/17 Unknown Urine Sodium 129 mmol/L 05/05/17 Unknown Urine Potassium 3.67 mmol/L 05/05/17 Unknown Urine Chloride 115.6 mmolL (110-250) 05/05/17 Unknown Salicylates 0.3 mg/dL (2.8-20.0) L 05/04/17 18:39 Urine Opiates Screen Presumptive negative 05/04/17 02:20 Urine Methadone Screen Presumptive negative 05/04/17 02:20 Acetaminophen < 15.0 ug/mL (10.0-30.0) 05/04/17 18:39 Ur Barbiturates Screen Presumptive negative 05/04/17 02:20 Ur Phencyclidine Scrn Presumptive negative 05/04/17 02:20 Ur Amphetamines Screen Presumptive negative 05/04/17 02:20 U Benzodiazepines Scrn Presumptive negative 05/04/17 02:20 Urine Cocaine Screen Presumptive negative 05/04/17 02:20 U Marijuana (THC) Screen Presumptive negative 05/04/17 02:20 Drugs of Abuse Note Disclamer 05/04/17 02:20 Plasma/Serum Alcohol < 0.01 gm% (0-0.07) 05/04/17 18:39 Miscellaneous Test Flexitest 1 H 05/17/17 12:20
[2017-05-20] MEDS: BROVANA NEBU IH SCH ×2 (08:29→19:45)
[2017-05-20] MEDS: PULMICORT IH SCH ×2 (08:29→19:45)
[2017-05-20] MEDS: DUONEB *Not for PRN Use IH SCH ×3 (08:29→19:45)
[2017-05-20] MEDS ORDERED: NACL 0.9% 100 ML IV PRN ×2 (08:48→16:49)
--- NOTE | 2017-05-20 08:48 | Progress Note ---
Assessment and Plan Impression * Acute renal failure. Most likely secondary to ATN * Respiratory failure * Septic shock * Anemia * C. difficile colitis * COPD Recommendations * Status post initiation of hemodialysis on 05/18/2017 * Patient had additional dialysis treatment yesterday. Fluid removal limited due to hypotension * Patient clinically still volume overloaded. Shall dialyze her again today * Nephrotoxins * Adjust meds for GFR less than 10 * No evidence of renal recovery at this time. Subjective Date of service: 05/20/17 Principal diagnosis: Septic shock,C. diff colitis Interval history: Patient remains in the ICU. Currently on the ventilator. On 30% FiO2. She is also on a Levophed drip. Objective - Vital Signs Vital signs: Vital Signs - 12hr 05/19/17 05/19/17 05/19/17 21:00 21:15 21:30 Temperature Pulse Rate 68 75 73 Pulse Rate [ Bilateral Bases ] Pulse Rate [ From Monitor] Respiratory 17 20 19 Rate Respiratory Rate [Bilateral Bases] Blood Pressure 131/56 101/49 109/48 O2 Sat by Pulse 100 100 100 Oximetry O2 Sat by Pulse Oximetry [ Bilateral Bases ] 05/19/17 05/19/17 05/19/17 21:45 22:00 22:15 Temperature 99.1 F Pulse Rate 73 74 110 H Pulse Rate [ Bilateral Bases ] Pulse Rate [ From Monitor] Respiratory 18 20 24 Rate Respiratory Rate [Bilateral Bases] Blood Pressure 100/47 108/51 113/49 O2 Sat by Pulse 100 100 100 Oximetry O2 Sat by Pulse 97 Oximetry [ Bilateral Bases ] 05/19/17 05/19/17 05/19/17 22:30 22:31 22:45 Temperature Pulse Rate 113 H 76 110 H Pulse Rate [ Bilateral Bases ] Pulse Rate [ From Monitor] Respiratory 21 21 Rate Respiratory Rate [Bilateral Bases] Blood Pressure 130/63 130/63 131/59 O2 Sat by Pulse 100 100 Oximetry O2 Sat by Pulse Oximetry [ Bilateral Bases ] 05/19/17 05/19/17 05/19/17 22:57 23:00 23:01 Temperature Pulse Rate 128 H 134 H 136 H Pulse Rate [ Bilateral Bases ] Pulse Rate [ From Monitor] Respiratory 25 H 20 Rate Respiratory Rate [Bilateral Bases] Blood Pressure 131/59 113/70 113/70 O2 Sat by Pulse 97 97 Oximetry O2 Sat by Pulse Oximetry [ Bilateral Bases ] 11/05/19/17 05/19/17 23:15 23:30 23:45 Temperature Pulse Rate 172 H 129 H 128 H Pulse Rate [ Bilateral Bases ] Pulse Rate [ From Monitor] Respiratory 19 21 24 Rate Respiratory Rate [Bilateral Bases] Blood Pressure 104/62 97/63 96/73 O2 Sat by Pulse 98 99 100 Oximetry O2 Sat by Pulse Oximetry [ Bilateral Bases ] 05/20/17 05/20/17 05/20/17 00:00 00:01 00:15 Temperature 99.1 F Pulse Rate 127 H 131 H 127 H Pulse Rate [ Bilateral Bases ] Pulse Rate [ 126 H From Monitor] Respiratory 19 27 H Rate Respiratory Rate [Bilateral Bases] Blood Pressure 108/52 96/73 244/167 O2 Sat by Pulse 100 98 100 Oximetry O2 Sat by Pulse Oximetry [ Bilateral Bases ] 05/20/17 05/20/17 05/20/17 00:24 00:30 00:31 Temperature Pulse Rate 132 H 123 H 126 H Pulse Rate [ Bilateral Bases ] Pulse Rate [ From Monitor] Respiratory 25 H Rate Respiratory Rate [Bilateral Bases] Blood Pressure 97/63 126/78 126/78 O2 Sat by Pulse 100 Oximetry O2 Sat by Pulse Oximetry [ Bilateral Bases ] 05/20/17 05/20/17 05/20/17 00:45 01:00 01:01 Temperature Pulse Rate 133 H 140 H 124 H Pulse Rate [ Bilateral Bases ] Pulse Rate [ From Monitor] Respiratory 26 H 28 H Rate Respiratory Rate [Bilateral Bases] Blood Pressure 140/119 130/112 140/119 O2 Sat by Pulse 100 100 Oximetry O2 Sat by Pulse Oximetry [ Bilateral Bases ] 05/20/17 05/20/17 05/20/17 01:15 01:31 01:45 Temperature 99.1 F Pulse Rate 126 H 123 H 117 H Pulse Rate [ Bilateral Bases ] Pulse Rate [ From Monitor] Respiratory 27 H 27 H 20 Rate Respiratory Rate [Bilateral Bases] Blood Pressure 140/119 122/43 123/100 O2 Sat by Pulse 84 100 100 Oximetry O2 Sat by Pulse 100 Oximetry [ Bilateral Bases ] 05/20/17 05/20/17 05/20/17 02:01 02:15 02:30 Temperature Pulse Rate 108 H 118 H 89 Pulse Rate [ Bilateral Bases ] Pulse Rate [ From Monitor] Respiratory 27 H 27 H 20 Rate Respiratory Rate [Bilateral Bases] Blood Pressure 67/44 63/31 92/52 O2 Sat by Pulse 100 100 Oximetry O2 Sat by Pulse Oximetry [ Bilateral Bases ] 05/20/17 05/20/17 05/20/17 02:45 03:00 03:15 Temperature Pulse Rate 86 88 83 Pulse Rate [ Bilateral Bases ] Pulse Rate [ From Monitor] Respiratory 20 20 19 Rate Respiratory Rate [Bilateral Bases] Blood Pressure 93/50 90/42 94/57 O2 Sat by Pulse 100 100 100 Oximetry O2 Sat by Pulse Oximetry [ Bilateral Bases ] 05/20/17 05/20/17 05/20/17 03:30 03:45 03:52 Temperature 97.6 F Pulse Rate 76 82 Pulse Rate [ Bilateral Bases ] Pulse Rate [ From Monitor] Respiratory 20 20 Rate Respiratory Rate [Bilateral Bases] Blood Pressure 96/51 86/50 O2 Sat by Pulse 100 100 Oximetry O2 Sat by Pulse Oximetry [ Bilateral Bases ] 05/20/17 05/20/17 05/20/17 04:00 04:01 04:15 Temperature Pulse Rate 86 99 H Pulse Rate [ Bilateral Bases ] Pulse Rate [ 80 From Monitor] Respiratory 20 20 18 Rate Respiratory Rate [Bilateral Bases] Blood Pressure 95/73 95/73 O2 Sat by Pulse 99 100 Oximetry O2 Sat by Pulse Oximetry [ Bilateral Bases ] 05/20/17 05/20/17 05/20/17 04:30 04:45 04:58 Temperature Pulse Rate 93 H 89 70 Pulse Rate [ Bilateral Bases ] Pulse Rate [ From Monitor] Respiratory 20 21 Rate Respiratory Rate [Bilateral Bases] Blood Pressure 95/32 107/55 107/55 O2 Sat by Pulse 100 100 100 Oximetry O2 Sat by Pulse Oximetry [ Bilateral Bases ] 05/20/17 05/20/17 05/20/17 05:00 05:15 05:30 Temperature Pulse Rate 80 94 H 85 Pulse Rate [ Bilateral Bases ] Pulse Rate [ From Monitor] Respiratory 20 20 20 Rate Respiratory Rate [Bilateral Bases] Blood Pressure 111/50 109/50 119/53 O2 Sat by Pulse 100 98 99 Oximetry O2 Sat by Pulse Oximetry [ Bilateral Bases ] 05/20/17 05/20/17 05/20/17 05:45 06:00 06:15 Temperature Pulse Rate 85 77 84 Pulse Rate [ Bilateral Bases ] Pulse Rate [ From Monitor] Respiratory 20 19 20 Rate Respiratory Rate [Bilateral Bases] Blood Pressure 110/54 108/52 102/49 O2 Sat by Pulse 99 99 98 Oximetry O2 Sat by Pulse Oximetry [ Bilateral Bases ] 05/20/17 05/20/17 05/20/17 06:30 06:45 07:01 Temperature Pulse Rate 102 H 105 H 105 H Pulse Rate [ Bilateral Bases ] Pulse Rate [ From Monitor] Respiratory 20 20 20 Rate Respiratory Rate [Bilateral Bases] Blood Pressure 93/51 99/53 63/36 O2 Sat by Pulse 100 96 Oximetry O2 Sat by Pulse Oximetry [ Bilateral Bases ] 05/20/17 05/20/17 05/20/17 07:15 07:30 07:45 Temperature Pulse Rate 79 73 71 Pulse Rate [ Bilateral Bases ] Pulse Rate [ From Monitor] Respiratory 20 19 19 Rate Respiratory Rate [Bilateral Bases] Blood Pressure 121/56 117/59 128/62 O2 Sat by Pulse 100 100 100 Oximetry O2 Sat by Pulse Oximetry [ Bilateral Bases ] 05/20/17 05/20/17 05/20/17 08:00 08:15 08:25 Temperature 97.7 F Pulse Rate 70 72 76 Pulse Rate [ Bilateral Bases ] Pulse Rate [ From Monitor] Respiratory 19 20 Rate Respiratory Rate [Bilateral Bases] Blood Pressure 135/57 128/62 128/62 O2 Sat by Pulse 100 100 100 Oximetry O2 Sat by Pulse Oximetry [ Bilateral Bases ] 05/20/17 05/20/17 08:29 08:30 Temperature Pulse Rate 74 Pulse Rate [ 73 Bilateral Bases ] Pulse Rate [ From Monitor] Respiratory 20 Rate Respiratory 89 H Rate [Bilateral Bases] Blood Pressure 117/56 O2 Sat by Pulse 100 Oximetry O2 Sat by Pulse Oximetry [ Bilateral Bases ] - General Appearance General appearance: well-developed, well-nourished, appears stated age, intubated EENT: PERRL, mucous membranes moist Neck: no JVD, no thyromegaly, no carotid bruit, supple Respiratory: Present: Ronchi (few scattered rhonchi) Cardiology: regular, normal heart rate, S1S2, no murmurs Gastrointestinal: normal, normoactive bowel sounds Integumentary: no rash, other (right femoral Vas-Cath in place. 2+ pitting edema) - Lab 05/20/17 05:30 05/20/17 05:30 Most recent lab results Calcium 7.7 mg/dL (8.4-10.2) L 05/20/17 05:30 Phosphorus 5.40 mg/dL (2.5-4.5) H 05/16/17 10:20 Magnesium 1.40 mg/dL (1.7-2.3) L 05/20/17 05:30 Urine Creatinine 28.0 mg/dL (0.1-20.0) H 05/05/17 Unknown Urine Sodium 129 mmol/L 05/05/17 Unknown
[2017-05-20] MEDS ORDERED: POTASSIUM CHLORIDE FEEDTUBE ONE (11:00)
[2017-05-20] MEDS: PEPCID PO SCH (11:00)
[2017-05-20] MEDS ORDERED: MAGNESIUM SULFATE 3 GM in NACL 0.9% 100 ML IV ONE (11:00)
[2017-05-20] MEDS: HEPARIN SUB-Q SCH ×2 (11:01→23:21)
[2017-05-20] MEDS: MERREM 1,000 MG in NACL 0.9% 20 ML IV SCH (11:01)
--- NOTE | 2017-05-20 11:23 | Progress Note ---
Assessment and Plan Assessment: 1) Persistent Septic Shock - worsening due to severe C diff colitis . CRP= 14 -->2.3. Procal=2.4. 2) Severe C diff Colitis: severe-recently exposed to broad spectrum abx. CT abd showed colitis. CT abd repeat shows worsening colitis 3) UTI-mild ? reactive from colitis versus real 4) LUIS-worsening - no won HD 6) COPD 7) Resp failure Plan: -urgent surgical eval for colectomy -continue meropenem to cover empirically peritonitis -continue PO vanco at 250 mg QID and IV flagyl QID day 15 -monitor leukocytosis / creatinine discussed with IMS / [employer] Poor prognosis Thank you Dr Mejia for your consultation, will follow up with you. Winifred Guerrero MD Infectious Diseases Specialist [facility] [phone] Subjective Date of service: 05/20/17 Principal diagnosis: Septic shock,C. diff colitis Interval history: Remains on levophed requirement went to 20 mcg/min , alert, following commands on the vent. Microbiology: Blood cultures: 05/05 neg Urine cultures: 05/05 neg Stool cultures: C diff 05/04 POSITIVE Resp culture: 05/16 neg Current Antimicrobials: Vancomycin PO 05/05 Metronidazole 05/05 meropenem 05/17 Previous Antimicrobials: Zosyn Levaquin Vancomycin PO Metronidazole Vanco rectal 05/07 Ceftriaxone 05/11 Objective - Exam Narrative Exam: General appearance: sedated on the vent Eyes: anicteric sclerae HENT: Atraumatic; oropharynx +ETT Neck: Trachea midline; supple, no thyromegaly or lymphadenopathy Lungs: scattered rhonchi CV: rrr Abdomen: Soft, diffuse tenderness Extremities: + peripheral edema Skin: Normal temperature, turgor and texture; no rash, ulcers or subcutaneous nodules Psych: Anxious. Neuro: alert and oriented x 3. Moving all extermities Lines: right SC TLC, rectal tube with copious black diarrhea - Constitutional Vitals: Vital Signs Temp Pulse Resp BP Pulse Ox 97.7 F 103 H 20 117/56 100 05/20/17 08:00 05/20/17 08:52 05/20/17 08:52 05/20/17 08:30 05/20/17 08:30 Temperature -Last 24 Hours Temperature 97.7 F Temperature 97.6 F Temperature 99.1 F Temperature 99.1 F Temperature 99.1 F Temperature 99.1 F Temperature 100.0 F Temperature 99.3 F - Labs CBC & Chem 7: 05/20/17 05:30 05/20/17 05:30 Labs: Abnormal lab results 05/17/17 05/19/17 05/19/17 Range/Units 12:20 11:47 18:04 WBC (4.5-11.0) K/mm3 RBC (3.65-5.03) M/mm3 Hgb (10.1-14.3) gm/dl Hct (30.3-42.9) % RDW (13.2-15.2) % Lymphocytes % (Manual) (13.4-35.0) % Monocytes % (Manual) (0.0-7.3) % Seg Neutrophils # Man (1.8-7.7) K/mm3 Monocytes # (Manual) (0.0-0.8) K/mm3 POC ABG pH (7.35-7.45) POC ABG pCO2 (35-45) POC ABG pO2 (80-105) Potassium (3.6-5.0) mmol/L BUN (7-17) mg/dL Creatinine (0.7-1.2) mg/dL Glucose (65-100) mg/dL POC Glucose 203 H (70-105) Calcium (8.4-10.2) mg/dL Magnesium (1.7-2.3) mg/dL Urine WBC (Auto) 78.0 H (0.0-6.0) /HPF Miscellaneous Test Flexitest 1 H 05/19/17 05/20/17 05/20/17 Range/Units 23:54 05:03 05:30 WBC 44.4 H* (4.5-11.0) K/mm3 RBC 2.65 L (3.65-5.03) M/mm3 Hgb 7.6 L (10.1-14.3) gm/dl Hct 23.7 L (30.3-42.9) % RDW 18.0 H (13.2-15.2) % Lymphocytes % (Manual) 7.0 L (13.4-35.0) % Monocytes % (Manual) 12.0 H (0.0-7.3) % Seg Neutrophils # Man 22.2 H (1.8-7.7) K/mm3 Monocytes # (Manual) 5.3 H (0.0-0.8) K/mm3 POC ABG pH 7.322 L (7.35-7.45) POC ABG pCO2 46.3 H (35-45) POC ABG pO2 160 H (80-105) Potassium (3.6-5.0) mmol/L BUN (7-17) mg/dL Creatinine (0.7-1.2) mg/dL Glucose (65-100) mg/dL POC Glucose 178 H (70-105) Calcium (8.4-10.2) mg/dL Magnesium (1.7-2.3) mg/dL Urine WBC (Auto) (0.0-6.0) /HPF Miscellaneous Test 05/20/17 05/20/17 Range/Units 05:30 05:44 WBC (4.5-11.0) K/mm3 RBC (3.65-5.03) M/mm3 Hgb (10.1-14.3) gm/dl Hct (30.3-42.9) % RDW (13.2-15.2) % Lymphocytes % (Manual) (13.4-35.0) % Monocytes % (Manual) (0.0-7.3) % Seg Neutrophils # Man (1.8-7.7) K/mm3 Monocytes # (Manual) (0.0-0.8) K/mm3 POC ABG pH (7.35-7.45) POC ABG pCO2 (35-45) POC ABG pO2 (80-105) Potassium 3.5 L (3.6-5.0) mmol/L BUN 23 H (7-17) mg/dL Creatinine 2.1 H (0.7-1.2) mg/dL Glucose 167 H (65-100) mg/dL POC Glucose 182 H (70-105) Calcium 7.7 L (8.4-10.2) mg/dL Magnesium 1.40 L (1.7-2.3) mg/dL Urine WBC (Auto) (0.0-6.0) /HPF Miscellaneous Test
--- NOTE | 2017-05-20 11:35 | XRay Report ---
FINAL REPORT EXAM: XR CHEST 1V AP HISTORY: follow up respiratory failure TECHNIQUE: A portable upright view of the chest was obtained and compared the study of 05/04/2017. FINDINGS: The tip of the ET tube is in good position above the jena. There is an NG tube coursing into the stomach. There is a left-sided PICC line with the tip in the superior vena cava. The lungs are diffusely congested. There are bilateral effusions. Infiltrates in the bases cannot be excluded. The heart size is normal. The bones and soft tissues do not show any acute changes. IMPRESSION: Pulmonary vascular congestion with bilateral effusions. Infiltrates in the bases cannot be excluded. Satisfactory position of all tubes and lines.
[2017-05-20] MEDS ORDERED: NACL 0.9% 500 ML 500 ML IV SCH (13:30)
--- NOTE | 2017-05-20 13:35 | Progress Note ---
Assessment and Plan CXR = small bilateral pleural effusions CT a/p reviewed = bilateral effusions with compressive atelectasis Imp: 1. Cdiff colitis 2. Sepsis with septic shock presumably related to #1, r/o other/new infections; do not suspect pneumonia 3. LUIS 4. Acute respiratory failure, hypoxia and hypercapnea 5. Centrilobular emphysema, severe/extensive on prior CT chest 6. Pulm HTN, probably due to #5 Rec: 1. Cont. bronchodilators; continue to hold off on steroids for now 2. F/u repeat blood and urine cultures; ABX per ID; consider anti-fungal coverage; surgical evaluation pending 3. Plans for repeat HD today noted, hopefully can continue to correct metabolic abnormalities and remove some volume 4. Cont. Trophic TFs for now 5. No extubaton today; ABG results better but still suboptimal and will have further HD/volume removal; will re-assess in AM 6. DVT and GI PPx 7. Prognosis is guarded; no family present CCT 31 minutes Subjective Date of service: 05/20/17 Principal diagnosis: Septic shock,C. diff colitis Interval history: Had HD again. Remains on Levophed at 13 mcg. Awake, on ventilator, PRVC. Denies pain or SOB. Tolerating TFs at 10mL/hour. Has liquid stool still. Active Medications Acetaminophen (Tylenol) 650 mg PO Q4H PRN PRN Reason: Pain MILD(1-3)/Fever >100.5/KHOURY Last Admin: 05/05/17 12:55 Dose: 650 mg Albuterol (Proventil) 2.5 mg IH Q4HRT PRN PRN Reason: Shortness Of Breath Albuterol/Ipratropium (Duoneb *Not For Prn Use*) 1 ampul IH TIDRT [facility] Last Admin: 05/20/17 08:29 Dose: 1 ampul Lipase/Protease/Amylase (Rohan Pearce 10,500 Unit) 1 each FEEDTUBE PRN PRN PRN Reason: For Clogged Feeding Tube Arformoterol Tartrate (Brovana Nebu) 15 mcg IH Q12HRT [facility] Last Admin: 05/20/17 08:29 Dose: 15 mcg Bisacodyl (Dulcolax) 10 mg TN QDAY PRN PRN Reason: Constipation unrelieved by MOM Budesonide (Pulmicort) 0.25 mg IH Q12HRT [facility] Last Admin: 05/20/17 08:29 Dose: 0.25 mg Dextrose (D50w (25gm) Syringe) 50 ml IV PRN PRN PRN Reason: Hypoglycemia Epoetin Eugene (Epogen) 20,000 unit IV PHYLLIS PRN PRN Reason: hemodialysis Last Admin: 05/19/17 23:07 Dose: 20,000 unit Famotidine (Pepcid) 20 mg PO DAILY [facility] Last Admin: 05/20/17 11:00 Dose: 20 mg Heparin Sodium (Porcine) (Heparin) 5,000 unit SUB-Q BID [facility]UNG Last Admin: 05/20/17 11:01 Dose: 5,000 unit Hydrocortisone Acetate (Proctosol-Hc) 1 applic TN Q8H PRN PRN Reason: Hemorrhoids Last Admin: 05/05/17 23:40 Dose: 1 applic Hydrophilic Ointment (Vaseline Lip Therapy) 1 applic TP Q2HR PRN PRN Reason: Dry Lips Last Admin: 05/16/17 20:58 Dose: 1 applic Sodium Chloride (Nacl 0.9% 500 Ml) 500 mls @ 10 mls/hr IV PRN PRN PRN Reason: FOR CVP Last Infusion: 05/07/17 13:17 Dose: Infused Metronidazole (Flagyl 500 Mg/100 Ml) 500 mg in 100 mls @ 100 mls/hr IV Q6HR [facility] Last Admin: 05/20/17 11:02 Dose: 100 mls/hr Norepinephrine 8 mg/ Sodium (Chloride) 250 mls @ 3.75 mls/hr IV TITR DUNG; 2 MCG /MIN PRN Reason: Protocol Last Titration: 05/20/17 12:30 Dose: 10 mcg/min, 18.75 mls/hr Meropenem 1,000 mg/ Sodium (Chloride) 20 mls @ 20 mls/10 min IV Q24H [facility] Last Admin: 05/20/17 11:01 Dose: 20 mls/10 min Sodium Chloride (Nacl 0.9%) 100 mls @ 999 mls/hr IV PHYLLIS PRN PRN Reason: Hypotension Magnesium Sulfate 3 gm/ Sodium (Chloride) 106 mls @ 35.333 mls/hr IV ONCE ONE Stop: 05/20/17 13:59 Last Admin: 05/20/17 12:58 Dose: 35.333 mls/hr Sodium Chloride (Nacl 0.9%) 100 mls @ 999 mls/hr IV PHYLLIS PRN PRN Reason: Hypotension Insulin Aspart (Novolog) 0 units SUB-Q Q6HR DUNG PRN Reason: Protocol Last Admin: 05/20/17 12:57 Dose: 2 units Lactobacillus Acidophilus (Floranex) 1 each PO TID [facility] Morphine Sulfate (Morphine) 1 mg IV Q6H PRN PRN Reason: Pain, Moderate (4-6) Last Admin: 05/19/17 23:53 Dose: 1 mg Multi-Ingred Cream/Lotion/Oil/Oint (Artificial Tears Ophth Oint) 1 applic OU Q4HR PRN PRN Reason: Dry Eye(s) Ondansetron HCl (Zofran) 4 mg IV Q4H PRN PRN Reason: N/V unrelieved by Pilar Last Admin: 05/12/17 10:36 Dose: 4 mg Simple Syrup (Simple Syrup) 15 ml FEEDTUBE PRN PRN PRN Reason: Hypoglycemia Simple Syrup (Simple Syrup) 30 ml FEEDTUBE PRN PRN PRN Reason: Hypoglycemia Sodium Bicarbonate (Sodium Bicarbonate) 325 mg FEEDTUBE PRN PRN PRN Reason: For Clogged Feeding Tube Vancomycin HCl (Vancomycin Po) 250 mg PO Q6HR [facility] Last Admin: 05/20/17 11:01 Dose: 250 mg Objective Vital Signs - 12hr 05/20/17 05/20/17 05/20/17 01:45 02:01 02:15 Temperature 99.1 F Pulse Rate 117 H 108 H 118 H Pulse Rate [ Bilateral Bases ] Pulse Rate [ From Monitor] Respiratory 20 27 H 27 H Rate Respiratory Rate [Bilateral Bases] Blood Pressure 123/100 67/44 63/31 O2 Sat by Pulse 100 100 Oximetry O2 Sat by Pulse 100 Oximetry [ Bilateral Bases ] 05/20/17 05/20/17 05/20/17 02:30 02:45 03:00 Temperature Pulse Rate 89 86 88 Pulse Rate [ Bilateral Bases ] Pulse Rate [ From Monitor] Respiratory 20 20 20 Rate Respiratory Rate [Bilateral Bases] Blood Pressure 92/52 93/50 90/42 O2 Sat by Pulse 100 100 100 Oximetry O2 Sat by Pulse Oximetry [ Bilateral Bases ] 05/20/17 05/20/17 05/20/17 03:15 03:30 03:45 Temperature Pulse Rate 83 76 82 Pulse Rate [ Bilateral Bases ] Pulse Rate [ From Monitor] Respiratory 19 20 20 Rate Respiratory Rate [Bilateral Bases] Blood Pressure 94/57 96/51 86/50 O2 Sat by Pulse 100 100 100 Oximetry O2 Sat by Pulse Oximetry [ Bilateral Bases ] 05/20/17 05/20/17 05/20/17 03:52 04:00 04:01 Temperature 97.6 F Pulse Rate 86 Pulse Rate [ Bilateral Bases ] Pulse Rate [ 80 From Monitor] Respiratory 20 20 Rate Respiratory Rate [Bilateral Bases] Blood Pressure 95/73 O2 Sat by Pulse 99 Oximetry O2 Sat by Pulse Oximetry [ Bilateral Bases ] 05/20/17 05/20/17 05/20/17 04:15 04:30 04:45 Temperature Pulse Rate 99 H 93 H 89 Pulse Rate [ Bilateral Bases ] Pulse Rate [ From Monitor] Respiratory 18 20 21 Rate Respiratory Rate [Bilateral Bases] Blood Pressure 95/73 95/32 107/55 O2 Sat by Pulse 100 100 100 Oximetry O2 Sat by Pulse Oximetry [ Bilateral Bases ] 05/20/17 05/20/17 05/20/17 04:58 05:00 05:15 Temperature Pulse Rate 70 80 94 H Pulse Rate [ Bilateral Bases ] Pulse Rate [ From Monitor] Respiratory 20 20 Rate Respiratory Rate [Bilateral Bases] Blood Pressure 107/55 111/50 109/50 O2 Sat by Pulse 100 100 98 Oximetry O2 Sat by Pulse Oximetry [ Bilateral Bases ] 05/20/17 05/20/17 05/20/17 05:30 05:45 06:00 Temperature Pulse Rate 85 85 77 Pulse Rate [ Bilateral Bases ] Pulse Rate [ From Monitor] Respiratory 20 20 19 Rate Respiratory Rate [Bilateral Bases] Blood Pressure 119/53 110/54 108/52 O2 Sat by Pulse 99 99 99 Oximetry O2 Sat by Pulse Oximetry [ Bilateral Bases ] 05/20/17 05/20/17 05/20/17 06:15 06:30 06:45 Temperature Pulse Rate 84 102 H 105 H Pulse Rate [ Bilateral Bases ] Pulse Rate [ From Monitor] Respiratory 20 20 20 Rate Respiratory Rate [Bilateral Bases] Blood Pressure 102/49 93/51 99/53 O2 Sat by Pulse 98 100 96 Oximetry O2 Sat by Pulse Oximetry [ Bilateral Bases ] 05/20/17 05/20/17 05/20/17 07:01 07:15 07:30 Temperature Pulse Rate 105 H 79 73 Pulse Rate [ Bilateral Bases ] Pulse Rate [ From Monitor] Respiratory 20 20 19 Rate Respiratory Rate [Bilateral Bases] Blood Pressure 63/36 121/56 117/59 O2 Sat by Pulse 100 100 Oximetry O2 Sat by Pulse Oximetry [ Bilateral Bases ] 05/20/17 05/20/17 05/20/17 07:45 08:00 08:15 Temperature 97.7 F Pulse Rate 71 70 72 Pulse Rate [ Bilateral Bases ] Pulse Rate [ 88 From Monitor] Respiratory 19 19 20 Rate Respiratory Rate [Bilateral Bases] Blood Pressure 128/62 135/57 128/62 O2 Sat by Pulse 100 100 100 Oximetry O2 Sat by Pulse Oximetry [ Bilateral Bases ] 05/20/17 05/20/17 05/20/17 08:25 08:29 08:30 Temperature Pulse Rate 76 74 Pulse Rate [ 73 Bilateral Bases ] Pulse Rate [ From Monitor] Respiratory 20 Rate Respiratory 89 H Rate [Bilateral Bases] Blood Pressure 128/62 117/56 O2 Sat by Pulse 100 100 Oximetry O2 Sat by Pulse Oximetry [ Bilateral Bases ] 05/20/17 05/20/17 08:52 12:00 Temperature 98.4 F Pulse Rate 89 Pulse Rate [ 103 H Bilateral Bases ] Pulse Rate [ From Monitor] Respiratory Rate Respiratory 20 Rate [Bilateral Bases] Blood Pressure 100/56 O2 Sat by Pulse 100 Oximetry O2 Sat by Pulse Oximetry [ Bilateral Bases ] Constitutional: alert, other (critically ill on vent) Eyes: non-icteric ENT: oropharynx moist Neck: supple Effort: normal Ascultation: Bilateral: other (coarse BS bilaterally) Cardiovascular: regular rate and rhythm (no mrg) Gastrointestinal: hypoactive bowel sounds, non-tender, other (mildly distended) Integumentary: normal Extremities: no cyanosis, pink and warm, anasarca (1+ bilateral LE edema) Neurologic: normal mental status, non-focal exam, pupils equal and round, CN II- XII normal Psychiatric: mood appropriate, affect normal CBC and BMP: 05/20/17 05:30 05/20/17 05:30 ABG, PT/INR, D-dimer: ABG POC ABG pH 7.322 (7.35-7.45) L 05/20/17 05:03 POC ABG pCO2 46.3 (35-45) H 05/20/17 05:03 POC ABG pO2 160 (80-105) H 05/20/17 05:03 POC ABG HCO3 23.9 05/20/17 05:03 POC ABG Total CO2 25 05/20/17 05:03 POC ABG O2 Sat 99 05/20/17 05:03 PT/INR, D-dimer D-Dimer 8441.57 ng/mlDDU (0-234) H 05/04/17 Unknown Abnormal lab findings: Abnormal Labs 05/04/17 05/04/17 05/04/17 02:20 18:39 18:39 WBC 24.3 H RBC Hgb Hct RDW 16.4 H Plt Count 658 H Seg Neuts % (Manual) 94.5 H Lymphocytes % (Manual) 2.5 L Monocytes % (Manual) Seg Neutrophils # Man 23.0 H Lymphocytes # (Manual) 0.6 L Monocytes # (Manual) Eosinophils # (Manual) D-Dimer POC ABG pH POC ABG pCO2 POC ABG pO2 Sodium Potassium 3.2 L Chloride 92.6 L Carbon Dioxide 14 L BUN 66 H Creatinine 6.5 H Glucose POC Glucose Lactic Acid Calcium 7.5 L Ionized Calcium Phosphorus Magnesium ALT 5 L Alkaline Phosphatase 32 L Total Creatine Kinase CK-MB (CK-2) Troponin T C-Reactive Protein Total Protein 5.4 L Albumin 3.0 L Urine WBC (Auto) 100.0 H Urine Creatinine Salicylates Miscellaneous Test 05/04/17 05/04/17 05/04/17 18:39 18:55 Unknown WBC RBC Hgb Hct RDW Plt Count Seg Neuts % (Manual) Lymphocytes % (Manual) Monocytes % (Manual) Seg Neutrophils # Man Lymphocytes # (Manual) Monocytes # (Manual) Eosinophils # (Manual) D-Dimer POC ABG pH POC ABG pCO2 POC ABG pO2 Sodium Potassium Chloride Carbon Dioxide BUN Creatinine Glucose POC Glucose Lactic Acid 0.40 L Calcium Ionized Calcium Phosphorus Magnesium ALT Alkaline Phosphatase Total Creatine Kinase 155 H CK-MB (CK-2) 4.5 H Troponin T 0.033 H C-Reactive Protein Total Protein Albumin Urine WBC (Auto) Urine Creatinine Salicylates 0.3 L Miscellaneous Test 05/04/17 05/04/17 05/04/17 Unknown Unknown Unknown WBC RBC Hgb Hct RDW Plt Count Seg Neuts % (Manual) Lymphocytes % (Manual) Monocytes % (Manual) Seg Neutrophils # Man Lymphocytes # (Manual) Monocytes # (Manual) Eosinophils # (Manual) D-Dimer 8441.57 H POC ABG pH POC ABG pCO2 POC ABG pO2 Sodium Potassium Chloride Carbon Dioxide BUN Creatinine Glucose POC Glucose Lactic Acid 0.40 L Calcium Ionized Calcium Phosphorus Magnesium ALT Alkaline Phosphatase Total Creatine Kinase 246 H CK-MB (CK-2) 6.2 H Troponin T C-Reactive Protein Total Protein Albumin Urine WBC (Auto) Urine Creatinine Salicylates Miscellaneous Test 05/05/17 05/05/17 05/05/17 05:20 05:20 05:20 WBC 33.9 H RBC 3.39 L Hgb 9.3 L Hct RDW 16.7 H Plt Count 712 H Seg Neuts % (Manual) 91.0 H Lymphocytes % (Manual) 1.0 L Monocytes % (Manual) Seg Neutrophils # Man 30.8 H Lymphocytes # (Manual) 0.3 L Monocytes # (Manual) 1.5 H Eosinophils # (Manual) D-Dimer POC ABG pH POC ABG pCO2 POC ABG pO2 Sodium Potassium Chloride Carbon Dioxide 9 L* BUN 53 H Creatinine 5.4 H Glucose POC Glucose Lactic Acid Calcium 6.1 L D Ionized Calcium Phosphorus Magnesium ALT Alkaline Phosphatase Total Creatine Kinase 346 H CK-MB (CK-2) 8.2 H Troponin T C-Reactive Protein Total Protein Albumin Urine WBC (Auto) Urine Creatinine Salicylates Miscellaneous Test 05/05/17 05/05/17 05/05/17 10:43 17:45 17:45 WBC RBC Hgb 8.8 L Hct RDW Plt Count Seg Neuts % (Manual) Lymphocytes % (Manual) Monocytes % (Manual) Seg Neutrophils # Man Lymphocytes # (Manual) Monocytes # (Manual) Eosinophils # (Manual) D-Dimer POC ABG pH 6.872 L POC ABG pCO2 POC ABG pO2 120 H Sodium Potassium Chloride Carbon Dioxide BUN Creatinine Glucose POC Glucose Lactic Acid Calcium Ionized Calcium 3.5 L Phosphorus Magnesium ALT Alkaline Phosphatase Total Creatine Kinase CK-MB (CK-2) Troponin T C-Reactive Protein Total Protein Albumin Urine WBC (Auto) Urine Creatinine Salicylates Miscellaneous Test 05/05/17 05/05/17 05/05/17 17:45 20:58 Unknown WBC RBC Hgb 9.0 L Hct 29.8 L RDW Plt Count Seg Neuts % (Manual) Lymphocytes % (Manual) Monocytes % (Manual) Seg Neutrophils # Man Lymphocytes # (Manual) Monocytes # (Manual) Eosinophils # (Manual) D-Dimer POC ABG pH POC ABG pCO2 POC ABG pO2 Sodium Potassium Chloride Carbon Dioxide BUN Creatinine Glucose POC Glucose Lactic Acid Calcium Ionized Calcium Phosphorus 6.20 H Magnesium 1.20 L ALT Alkaline Phosphatase Total Creatine Kinase CK-MB (CK-2) Troponin T C-Reactive Protein Total Protein Albumin Urine WBC (Auto) Urine Creatinine 28.0 H Salicylates Miscellaneous Test 05/06/17 05/06/17 05/06/17 05:09 05:23 07:55 WBC RBC Hgb Hct RDW Plt Count Seg Neuts % (Manual) Lymphocytes % (Manual) Monocytes % (Manual) Seg Neutrophils # Man Lymphocytes # (Manual) Monocytes # (Manual) Eosinophils # (Manual) D-Dimer POC ABG pH 7.029 L 7.060 L POC ABG pCO2 54.8 H 48.6 H POC ABG pO2 74 L 43 L Sodium Potassium 3.5 L Chloride Carbon Dioxide 18 L D BUN 44 H Creatinine 3.5 H Glucose 252 H POC Glucose Lactic Acid Calcium 5.8 L* Ionized Calcium Phosphorus Magnesium ALT Alkaline Phosphatase Total Creatine Kinase CK-MB (CK-2) Troponin T C-Reactive Protein Total Protein Albumin Urine WBC (Auto) Urine Creatinine Salicylates Miscellaneous Test 05/06/17 05/06/17 05/06/17 07:55 15:28 17:30 WBC RBC Hgb Hct RDW Plt Count Seg Neuts % (Manual) Lymphocytes % (Manual) Monocytes % (Manual) Seg Neutrophils # Man Lymphocytes # (Manual) Monocytes # (Manual) Eosinophils # (Manual) D-Dimer POC ABG pH 7.066 L POC ABG pCO2 80.9 H POC ABG pO2 65 L Sodium Potassium Chloride Carbon Dioxide BUN Creatinine Glucose POC Glucose Lactic Acid Calcium Ionized Calcium Phosphorus Magnesium ALT Alkaline Phosphatase Total Creatine Kinase CK-MB (CK-2) Troponin T C-Reactive Protein 14.50 H Total Protein Albumin Urine WBC (Auto) Urine Creatinine Salicylates Miscellaneous Test Flexitest 1 H 05/06/17 05/06/17 05/07/17 17:30 Unknown 10:18 WBC 39.2 H 32.9 H RBC 3.27 L Hgb 9.3 L Hct 30.2 L RDW 16.4 H 17.0 H Plt Count 645 H 467 H Seg Neuts % (Manual) Lymphocytes % (Manual) 11.0 L Monocytes % (Manual) Seg Neutrophils # Man 21.2 H Lymphocytes # (Manual) Monocytes # (Manual) 2.0 H Eosinophils # (Manual) D-Dimer POC ABG pH POC ABG pCO2 POC ABG pO2 Sodium Potassium 3.4 L Chloride Carbon Dioxide BUN 41 H Creatinine 3.2 H Glucose 265 H POC Glucose Lactic Acid Calcium 6.7 L D Ionized Calcium Phosphorus Magnesium ALT Alkaline Phosphatase Total Creatine Kinase CK-MB (CK-2) Troponin T C-Reactive Protein Total Protein Albumin Urine WBC (Auto) Urine Creatinine Salicylates Miscellaneous Test 05/07/17 05/07/17 05/08/17 11:32 12:36 05:45 WBC 31.1 H RBC 3.41 L Hgb 9.8 L Hct RDW 16.9 H Plt Count Seg Neuts % (Manual) 96.0 H Lymphocytes % (Manual) 1.0 L Monocytes % (Manual) Seg Neutrophils # Man 29.9 H Lymphocytes # (Manual) 0.3 L Monocytes # (Manual) Eosinophils # (Manual) D-Dimer POC ABG pH 7.290 L POC ABG pCO2 48.3 H POC ABG pO2 51 L Sodium 146 H Potassium 3.1 L Chloride 109.2 H Carbon Dioxide 20 L BUN 38 H Creatinine 2.7 H Glucose 213 H POC Glucose Lactic Acid Calcium 6.6 L Ionized Calcium Phosphorus Magnesium ALT Alkaline Phosphatase Total Creatine Kinase CK-MB (CK-2) Troponin T C-Reactive Protein Total Protein Albumin Urine WBC (Auto) Urine Creatinine Salicylates Miscellaneous Test 05/08/17 05/08/17 05/09/17 05:45 18:55 04:05 WBC 26.1 H RBC Hgb Hct RDW 17.6 H Plt Count Seg Neuts % (Manual) Lymphocytes % (Manual) 5.0 L Monocytes % (Manual) Seg Neutrophils # Man 16.7 H Lymphocytes # (Manual) Monocytes # (Manual) Eosinophils # (Manual) D-Dimer POC ABG pH POC ABG pCO2 POC ABG pO2 Sodium 150 H Potassium Chloride 115.4 H 112.2 H Carbon Dioxide 20 L 18 L BUN 39 H 45 H Creatinine 2.4 H 2.3 H Glucose 160 H 219 H POC Glucose Lactic Acid Calcium 6.6 L 7.2 L Ionized Calcium Phosphorus Magnesium 1.40 L ALT 6 L Alkaline Phosphatase Total Creatine Kinase CK-MB (CK-2) Troponin T C-Reactive Protein Total Protein 4.1 L D Albumin 2.0 L Urine WBC (Auto) Urine Creatinine Salicylates Miscellaneous Test 05/09/17 05/09/17 05/09/17 04:05 05:15 05:45 WBC RBC Hgb Hct RDW Plt Count Seg Neuts % (Manual) Lymphocytes % (Manual) Monocytes % (Manual) Seg Neutrophils # Man Lymphocytes # (Manual) Monocytes # (Manual) Eosinophils # (Manual) D-Dimer POC ABG pH POC ABG pCO2 POC ABG pO2 Sodium 130 L D Potassium 3.4 L D Chloride 94.6 L Carbon Dioxide 19 L BUN 39 H Creatinine 2.1 H Glucose 549 H* 189 H POC Glucose 181 H Lactic Acid Calcium 6.6 L Ionized Calcium Phosphorus Magnesium ALT 6 L Alkaline Phosphatase 31 L Total Creatine Kinase CK-MB (CK-2) Troponin T C-Reactive Protein Total Protein 3.5 L Albumin 2.0 L Urine WBC (Auto) Urine Creatinine Salicylates Miscellaneous Test 05/09/17 05/09/17 05/09/17 08:03 11:08 16:15 WBC RBC Hgb Hct RDW Plt Count Seg Neuts % (Manual) Lymphocytes % (Manual) Monocytes % (Manual) Seg Neutrophils # Man Lymphocytes # (Manual) Monocytes # (Manual) Eosinophils # (Manual) D-Dimer POC ABG pH POC ABG pCO2 POC ABG pO2 Sodium Potassium Chloride 107.8 H Carbon Dioxide 21 L BUN 43 H Creatinine 2.4 H Glucose 195 H POC Glucose 299 H 111 H Lactic Acid Calcium 7.1 L Ionized Calcium Phosphorus Magnesium ALT Alkaline Phosphatase Total Creatine Kinase CK-MB (CK-2) Troponin T C-Reactive Protein Total Protein 3.9 L Albumin 2.3 L Urine WBC (Auto) Urine Creatinine Salicylates Miscellaneous Test 05/09/17 05/10/17 05/10/17 23:05 05:00 05:00 WBC 20.9 H RBC 3.53 L Hgb Hct RDW 17.3 H Plt Count Seg Neuts % (Manual) 72.0 H Lymphocytes % (Manual) 8.0 L Monocytes % (Manual) Seg Neutrophils # Man 15.0 H Lymphocytes # (Manual) Monocytes # (Manual) Eosinophils # (Manual) D-Dimer POC ABG pH POC ABG pCO2 POC ABG pO2 Sodium 135 L D Potassium 3.2 L Chloride Carbon Dioxide 21 L BUN 45 H Creatinine 2.2 H Glucose 308 H POC Glucose 336 H Lactic Acid Calcium 7.1 L Ionized Calcium Phosphorus Magnesium ALT 5 L Alkaline Phosphatase 30 L Total Creatine Kinase CK-MB (CK-2) Troponin T C-Reactive Protein Total Protein 3.8 L Albumin 2.1 L Urine WBC (Auto) Urine Creatinine Salicylates Miscellaneous Test 05/10/17 05/10/17 05/10/17 07:28 11:36 16:03 WBC RBC Hgb Hct RDW Plt Count Seg Neuts % (Manual) Lymphocytes % (Manual) Monocytes % (Manual) Seg Neutrophils # Man Lymphocytes # (Manual) Monocytes # (Manual) Eosinophils # (Manual) D-Dimer POC ABG pH POC ABG pCO2 POC ABG pO2 Sodium Potassium Chloride Carbon Dioxide BUN Creatinine Glucose POC Glucose 154 H 184 H 162 H Lactic Acid Calcium Ionized Calcium Phosphorus Magnesium ALT Alkaline Phosphatase Total Creatine Kinase CK-MB (CK-2) Troponin T C-Reactive Protein Total Protein Albumin Urine WBC (Auto) Urine Creatinine Salicylates Miscellaneous Test 05/10/17 05/11/17 05/11/17 21:13 06:50 06:50 WBC 24.4 H RBC Hgb Hct RDW 17.4 H Plt Count Seg Neuts % (Manual) Lymphocytes % (Manual) 5.0 L Monocytes % (Manual) Seg Neutrophils # Man 16.3 H Lymphocytes # (Manual) Monocytes # (Manual) 1.0 H Eosinophils # (Manual) D-Dimer POC ABG pH POC ABG pCO2 POC ABG pO2 Sodium Potassium 3.4 L Chloride Carbon Dioxide BUN 50 H Creatinine 2.8 H Glucose 131 H POC Glucose 188 H Lactic Acid Calcium 7.6 L Ionized Calcium Phosphorus Magnesium ALT < 5 L Alkaline Phosphatase 25 L Total Creatine Kinase CK-MB (CK-2) Troponin T C-Reactive Protein Total Protein 3.6 L Albumin 2.0 L Urine WBC (Auto) Urine Creatinine Salicylates Miscellaneous Test 05/11/17 05/11/17 05/11/17 09:33 11:45 15:46 WBC RBC Hgb Hct RDW Plt Count Seg Neuts % (Manual) Lymphocytes % (Manual) Monocytes % (Manual) Seg Neutrophils # Man Lymphocytes # (Manual) Monocytes # (Manual) Eosinophils # (Manual) D-Dimer POC ABG pH POC ABG pCO2 POC ABG pO2 Sodium Potassium Chloride Carbon Dioxide BUN Creatinine Glucose POC Glucose 140 H 157 H 137 H Lactic Acid Calcium Ionized Calcium Phosphorus Magnesium ALT Alkaline Phosphatase Total Creatine Kinase CK-MB (CK-2) Troponin T C-Reactive Protein Total Protein Albumin Urine WBC (Auto) Urine Creatinine Salicylates Miscellaneous Test 05/11/17 05/11/17 05/12/17 17:50 20:58 05:00 WBC 23.1 H RBC 3.59 L Hgb Hct RDW 17.1 H Plt Count Seg Neuts % (Manual) 94.0 H Lymphocytes % (Manual) 0 L Monocytes % (Manual) Seg Neutrophils # Man 21.7 H Lymphocytes # (Manual) 0.0 L Monocytes # (Manual) Eosinophils # (Manual) D-Dimer POC ABG pH POC ABG pCO2 POC ABG pO2 Sodium Potassium Chloride Carbon Dioxide BUN Creatinine Glucose POC Glucose 155 H Lactic Acid Calcium Ionized Calcium Phosphorus Magnesium ALT Alkaline Phosphatase Total Creatine Kinase CK-MB (CK-2) Troponin T C-Reactive Protein Total Protein Albumin Urine WBC (Auto) 27.0 H Urine Creatinine Salicylates Miscellaneous Test 05/12/17 05/12/17 05/12/17 05:00 08:28 11:28 WBC RBC Hgb Hct RDW Plt Count Seg Neuts % (Manual) Lymphocytes % (Manual) Monocytes % (Manual) Seg Neutrophils # Man Lymphocytes # (Manual) Monocytes # (Manual) Eosinophils # (Manual) D-Dimer POC ABG pH POC ABG pCO2 POC ABG pO2 Sodium Potassium Chloride 111.7 H Carbon Dioxide BUN 53 H Creatinine 2.8 H Glucose 102 H POC Glucose 130 H 171 H Lactic Acid Calcium 6.9 L Ionized Calcium Phosphorus Magnesium ALT < 5 L Alkaline Phosphatase 25 L Total Creatine Kinase CK-MB (CK-2) Troponin T C-Reactive Protein Total Protein 3.3 L Albumin 1.7 L Urine WBC (Auto) Urine Creatinine Salicylates Miscellaneous Test 05/12/17 05/13/17 05/13/17 22:20 06:54 06:54 WBC 20.8 H RBC 3.17 L Hgb 9.2 L Hct 28.9 L RDW 17.7 H Plt Count Seg Neuts % (Manual) 93.0 H Lymphocytes % (Manual) 1.0 L Monocytes % (Manual) Seg Neutrophils # Man 19.3 H Lymphocytes # (Manual) 0.2 L Monocytes # (Manual) Eosinophils # (Manual) 0.6 H D-Dimer POC ABG pH POC ABG pCO2 POC ABG pO2 Sodium Potassium 3.3 L Chloride 110.0 H Carbon Dioxide 20 L BUN 48 H Creatinine 2.8 H Glucose 119 H POC Glucose 179 H Lactic Acid Calcium 7.4 L Ionized Calcium Phosphorus Magnesium ALT Alkaline Phosphatase Total Creatine Kinase CK-MB (CK-2) Troponin T C-Reactive Protein Total Protein Albumin Urine WBC (Auto) Urine Creatinine Salicylates Miscellaneous Test 05/13/17 05/13/17 05/13/17 07:35 12:52 23:32 WBC RBC Hgb Hct RDW Plt Count Seg Neuts % (Manual) Lymphocytes % (Manual) Monocytes % (Manual) Seg Neutrophils # Man Lymphocytes # (Manual) Monocytes # (Manual) Eosinophils # (Manual) D-Dimer POC ABG pH POC ABG pCO2 POC ABG pO2 Sodium Potassium Chloride Carbon Dioxide BUN Creatinine Glucose POC Glucose 139 H 159 H 179 H Lactic Acid Calcium Ionized Calcium Phosphorus Magnesium ALT Alkaline Phosphatase Total Creatine Kinase CK-MB (CK-2) Troponin T C-Reactive Protein Total Protein Albumin Urine WBC (Auto) Urine Creatinine Salicylates Miscellaneous Test 05/14/17 05/14/17 05/14/17 04:00 05:00 07:30 WBC 19.3 H RBC 3.16 L Hgb 9.1 L Hct 29.1 L RDW 17.9 H Plt Count Seg Neuts % (Manual) 87.0 H Lymphocytes % (Manual) 2.0 L Monocytes % (Manual) Seg Neutrophils # Man 16.8 H Lymphocytes # (Manual) 0.4 L Monocytes # (Manual) 1.0 H Eosinophils # (Manual) 0.6 H D-Dimer POC ABG pH POC ABG pCO2 POC ABG pO2 Sodium 146 H Potassium Chloride 114.7 H Carbon Dioxide 19 L BUN 43 H Creatinine 2.5 H Glucose POC Glucose 110 H Lactic Acid Calcium 7.5 L Ionized Calcium Phosphorus Magnesium ALT Alkaline Phosphatase Total Creatine Kinase CK-MB (CK-2) Troponin T C-Reactive Protein Total Protein Albumin Urine WBC (Auto) Urine Creatinine Salicylates Miscellaneous Test 05/14/17 05/14/17 05/14/17 11:43 15:44 20:10 WBC RBC Hgb Hct RDW Plt Count Seg Neuts % (Manual) Lymphocytes % (Manual) Monocytes % (Manual) Seg Neutrophils # Man Lymphocytes # (Manual) Monocytes # (Manual) Eosinophils # (Manual) D-Dimer POC ABG pH POC ABG pCO2 POC ABG pO2 Sodium Potassium Chloride Carbon Dioxide BUN Creatinine Glucose POC Glucose 169 H 201 H 223 H Lactic Acid Calcium Ionized Calcium Phosphorus Magnesium ALT Alkaline Phosphatase Total Creatine Kinase CK-MB (CK-2) Troponin T C-Reactive Protein Total Protein Albumin Urine WBC (Auto) Urine Creatinine Salicylates Miscellaneous Test 05/15/17 05/15/17 05/15/17 06:10 08:50 12:57 WBC RBC Hgb Hct RDW Plt Count Seg Neuts % (Manual) Lymphocytes % (Manual) Monocytes % (Manual) Seg Neutrophils # Man Lymphocytes # (Manual) Monocytes # (Manual) Eosinophils # (Manual) D-Dimer POC ABG pH POC ABG pCO2 POC ABG pO2 Sodium Potassium Chloride 113.6 H Carbon Dioxide 18 L BUN 43 H Creatinine 2.7 H Glucose 123 H POC Glucose 204 H 127 H Lactic Acid Calcium 7.2 L Ionized Calcium Phosphorus Magnesium ALT Alkaline Phosphatase Total Creatine Kinase CK-MB (CK-2) Troponin T C-Reactive Protein Total Protein Albumin Urine WBC (Auto) Urine Creatinine Salicylates Miscellaneous Test 05/15/17 05/15/17 05/15/17 17:43 21:29 23:51 WBC RBC Hgb Hct RDW Plt Count Seg Neuts % (Manual) Lymphocytes % (Manual) Monocytes % (Manual) Seg Neutrophils # Man Lymphocytes # (Manual) Monocytes # (Manual) Eosinophils # (Manual) D-Dimer POC ABG pH 6.983 L POC ABG pCO2 67.5 H POC ABG pO2 Sodium Potassium Chloride Carbon Dioxide BUN Creatinine Glucose POC Glucose 121 H 129 H Lactic Acid Calcium Ionized Calcium Phosphorus Magnesium ALT Alkaline Phosphatase Total Creatine Kinase CK-MB (CK-2) Troponin T C-Reactive Protein Total Protein Albumin Urine WBC (Auto) Urine Creatinine Salicylates Miscellaneous Test 05/16/17 05/16/17 05/16/17 00:15 06:00 07:46 WBC RBC Hgb Hct RDW Plt Count Seg Neuts % (Manual) Lymphocytes % (Manual) Monocytes % (Manual) Seg Neutrophils # Man Lymphocytes # (Manual) Monocytes # (Manual) Eosinophils # (Manual) D-Dimer POC ABG pH POC ABG pCO2 POC ABG pO2 Sodium Potassium Chloride 114.2 H Carbon Dioxide 17 L BUN 44 H Creatinine 3.3 H Glucose 118 H POC Glucose 135 H Lactic Acid 0.60 L Calcium 7.5 L Ionized Calcium Phosphorus Magnesium ALT Alkaline Phosphatase Total Creatine Kinase CK-MB (CK-2) Troponin T C-Reactive Protein Total Protein Albumin Urine WBC (Auto) Urine Creatinine Salicylates Miscellaneous Test 05/16/17 05/16/17 05/16/17 09:38 10:20 10:20 WBC 18.6 H RBC 3.08 L Hgb 9.0 L Hct 29.0 L RDW 18.8 H Plt Count Seg Neuts % (Manual) Lymphocytes % (Manual) 5.0 L Monocytes % (Manual) Seg Neutrophils # Man 11.3 H Lymphocytes # (Manual) 0.9 L Monocytes # (Manual) 1.3 H Eosinophils # (Manual) D-Dimer POC ABG pH 7.081 L POC ABG pCO2 46.3 H POC ABG pO2 107 H Sodium Potassium Chloride 114.9 H Carbon Dioxide 14 L BUN 44 H Creatinine 3.0 H Glucose 115 H POC Glucose Lactic Acid Calcium 7.3 L Ionized Calcium Phosphorus 5.40 H Magnesium ALT < 5 L Alkaline Phosphatase 17 L Total Creatine Kinase CK-MB (CK-2) Troponin T C-Reactive Protein Total Protein 4.2 L D Albumin 2.9 L Urine WBC (Auto) Urine Creatinine Salicylates Miscellaneous Test 05/17/17 05/17/17 05/17/17 03:44 04:00 05:00 WBC 21.9 H RBC 2.89 L Hgb 8.3 L Hct 26.4 L RDW 18.2 H Plt Count Seg Neuts % (Manual) Lymphocytes % (Manual) 7.0 L Monocytes % (Manual) Seg Neutrophils # Man 15.3 H Lymphocytes # (Manual) Monocytes # (Manual) 1.5 H Eosinophils # (Manual) D-Dimer POC ABG pH 7.199 L POC ABG pCO2 POC ABG pO2 107 H Sodium Potassium Chloride 111.7 H Carbon Dioxide 16 L BUN 43 H Creatinine 3.4 H Glucose POC Glucose Lactic Acid Calcium 7.3 L Ionized Calcium Phosphorus Magnesium ALT Alkaline Phosphatase Total Creatine Kinase CK-MB (CK-2) Troponin T C-Reactive Protein Total Protein Albumin Urine WBC (Auto) Urine Creatinine Salicylates Miscellaneous Test 1105/17/17 05/18/17 05:00 12:20 04:43 WBC RBC Hgb Hct RDW Plt Count Seg Neuts % (Manual) Lymphocytes % (Manual) Monocytes % (Manual) Seg Neutrophils # Man Lymphocytes # (Manual) Monocytes # (Manual) Eosinophils # (Manual) D-Dimer POC ABG pH 7.251 L POC ABG pCO2 POC ABG pO2 126 H Sodium Potassium Chloride Carbon Dioxide BUN Creatinine Glucose POC Glucose Lactic Acid Calcium Ionized Calcium Phosphorus Magnesium ALT Alkaline Phosphatase Total Creatine Kinase CK-MB (CK-2) Troponin T C-Reactive Protein 2.30 H Total Protein Albumin Urine WBC (Auto) Urine Creatinine Salicylates Miscellaneous Test Flexitest 1 H 05/18/17 05/18/17 05/18/17 14:46 21:30 Unknown WBC RBC Hgb Hct RDW Plt Count Seg Neuts % (Manual) Lymphocytes % (Manual) Monocytes % (Manual) Seg Neutrophils # Man Lymphocytes # (Manual) Monocytes # (Manual) Eosinophils # (Manual) D-Dimer POC ABG pH 7.227 L POC ABG pCO2 POC ABG pO2 126 H Sodium Potassium 3.2 L Chloride 108.9 H Carbon Dioxide 19 L BUN 44 H Creatinine 3.6 H Glucose POC Glucose 206 H Lactic Acid Calcium 7.3 L Ionized Calcium Phosphorus Magnesium ALT Alkaline Phosphatase Total Creatine Kinase CK-MB (CK-2) Troponin T C-Reactive Protein Total Protein Albumin Urine WBC (Auto) Urine Creatinine Salicylates Miscellaneous Test 05/18/17 05/19/17 05/19/17 Unknown 05:26 06:00 WBC 25.2 H RBC 2.76 L Hgb 8.0 L Hct 24.9 L RDW 17.7 H Plt Count Seg Neuts % (Manual) 86.0 H Lymphocytes % (Manual) 1.0 L Monocytes % (Manual) Seg Neutrophils # Man 21.7 H Lymphocytes # (Manual) 0.3 L Monocytes # (Manual) 1.5 H Eosinophils # (Manual) D-Dimer POC ABG pH 7.216 L POC ABG pCO2 47.0 H POC ABG pO2 Sodium Potassium Chloride Carbon Dioxide BUN Creatinine Glucose POC Glucose 173 H Lactic Acid Calcium Ionized Calcium Phosphorus Magnesium ALT Alkaline Phosphatase Total Creatine Kinase CK-MB (CK-2) Troponin T C-Reactive Protein Total Protein Albumin Urine WBC (Auto) Urine Creatinine Salicylates Miscellaneous Test 05/19/17 05/19/17 05/19/17 11:47 18:04 23:54 WBC RBC Hgb Hct RDW Plt Count Seg Neuts % (Manual) Lymphocytes % (Manual) Monocytes % (Manual) Seg Neutrophils # Man Lymphocytes # (Manual) Monocytes # (Manual) Eosinophils # (Manual) D-Dimer POC ABG pH POC ABG pCO2 POC ABG pO2 Sodium Potassium Chloride Carbon Dioxide BUN Creatinine Glucose POC Glucose 203 H 178 H Lactic Acid Calcium Ionized Calcium Phosphorus Magnesium ALT Alkaline Phosphatase Total Creatine Kinase CK-MB (CK-2) Troponin T C-Reactive Protein Total Protein Albumin Urine WBC (Auto) 78.0 H Urine Creatinine Salicylates Miscellaneous Test 05/19/17 05/19/17 05/20/17 Unknown Unknown 05:03 WBC 36.5 H RBC 2.71 L Hgb 7.7 L Hct 24.3 L RDW 18.3 H Plt Count Seg Neuts % (Manual) 79.0 H Lymphocytes % (Manual) 3.0 L Monocytes % (Manual) Seg Neutrophils # Man 28.8 H Lymphocytes # (Manual) 1.1 L Monocytes # (Manual) 2.6 H Eosinophils # (Manual) D-Dimer POC ABG pH 7.322 L POC ABG pCO2 46.3 H POC ABG pO2 160 H Sodium Potassium 3.5 L Chloride 108.1 H Carbon Dioxide 20 L BUN 36 H Creatinine 3.1 H Glucose 165 H POC Glucose Lactic Acid Calcium 7.7 L Ionized Calcium Phosphorus Magnesium ALT Alkaline Phosphatase Total Creatine Kinase CK-MB (CK-2) Troponin T C-Reactive Protein Total Protein Albumin Urine WBC (Auto) Urine Creatinine Salicylates Miscellaneous Test 05/20/17 05/20/17 05/20/17 05:30 05:30 05:44 WBC 44.4 H* RBC 2.65 L Hgb 7.6 L Hct 23.7 L RDW 18.0 H Plt Count Seg Neuts % (Manual) Lymphocytes % (Manual) 7.0 L Monocytes % (Manual) 12.0 H Seg Neutrophils # Man 22.2 H Lymphocytes # (Manual) Monocytes # (Manual) 5.3 H Eosinophils # (Manual) D-Dimer POC ABG pH POC ABG pCO2 POC ABG pO2 Sodium Potassium 3.5 L Chloride Carbon Dioxide BUN 23 H Creatinine 2.1 H Glucose 167 H POC Glucose 182 H Lactic Acid Calcium 7.7 L Ionized Calcium Phosphorus Magnesium 1.40 L ALT Alkaline Phosphatase Total Creatine Kinase CK-MB (CK-2) Troponin T C-Reactive Protein Total Protein Albumin Urine WBC (Auto) Urine Creatinine Salicylates Miscellaneous Test 05/20/17 11:59 WBC RBC Hgb Hct RDW Plt Count Seg Neuts % (Manual) Lymphocytes % (Manual) Monocytes % (Manual) Seg Neutrophils # Man Lymphocytes # (Manual) Monocytes # (Manual) Eosinophils # (Manual) D-Dimer POC ABG pH POC ABG pCO2 POC ABG pO2 Sodium Potassium Chloride Carbon Dioxide BUN Creatinine Glucose POC Glucose 162 H Lactic Acid Calcium Ionized Calcium Phosphorus Magnesium ALT Alkaline Phosphatase Total Creatine Kinase CK-MB (CK-2) Troponin T C-Reactive Protein Total Protein Albumin Urine WBC (Auto) Urine Creatinine Salicylates Miscellaneous Test Chest x-ray: report reviewed, image reviewed
--- NOTE | 2017-05-20 13:39 | Anesthesia Consultation ---
Anesthesia Consult and Med Hx Date of service: 05/20/17 - Cardiac Exam Anesthetic Concerns: Intubated, airway not evaluated. - Pre-Operative Health Status ASA Pre-Surgery Classification: ASA5, Emergency Proposed Anesthetic Plan: General - Pulmonary Hx Smoking: No Hx Asthma: Yes Hx Respiratory Symptoms: Yes (Resp failure, on vent.) SOB: Yes COPD: Yes Hx Pneumonia: No - Cardiovascular System Hx Hypertension: Yes (Pt with worsening septic shock, on levophed.) Hx Heart Attack/AMI: No Hx Pacemaker: No Hx Internal Defibrillator: No - Central Nervous System Hx Seizures: No Hx Psychiatric Problems: No - Endocrine Hx Renal Disease: Yes (LUIS) Hx End Stage Renal Disease: Yes (Dialysis on hold due to hypotension.) Hx Liver Disease: No - Hematic Hx Anemia: No Hx Sickle Cell Disease: No - Other Systems Hx Cancer: No - Additional Comments Anesthesia Medical History Comments: Patient at marked increased risk from anesthesia and surgery.
--- NOTE | 2017-05-20 13:44 | Anesthesia Day of Surgery ---
Anesthesia Day of Surgery - Day of Surgery Patient Examined: Yes Patient H&P Reviewed: Yes Patient is NPO: Yes
--- NOTE | 2017-05-20 14:11 | Progress Note ---
Assessment and Plan Full consult dictated: 61 y/o female -- worsening colitis. r/o toxic megacolon. hx and ID eval as below. Pt awake and intubated. appears alert and understanding commands Abd - ascites noted. non tender at present. low h/h. about to undergo dialysis. Very high surgical risk. will need 2 unit prbc transf prior to surgery. proceed with dialysis. clotting studies now. discuss extremely high surgical risks with family proceed with expl lap - subtotal colectomy once all above completed and pt better stabilized. will discuss with you. reviewed recent CT with radiology Assessment and Plan Assessment: 1) Persistent Septic Shock - worsening due to severe C diff colitis . CRP= 14 -->2.3. Procal=2.4. 2) Severe C diff Colitis: severe-recently exposed to broad spectrum abx. CT abd showed colitis. CT abd repeat shows worsening colitis 3) UTI-mild ? reactive from colitis versus real 4) LUIS-worsening - no won HD 6) COPD 7) Resp failure Plan: -urgent surgical eval for colectomy -continue meropenem to cover empirically peritonitis -continue PO vanco at 250 mg QID and IV flagyl QID day 15 -monitor leukocytosis / creatinine discussed with IMS / [facility] Poor prognosis Thank you Dr Mejia for your consultation, will follow up with you. History of Present Illness Date of examination: 05/04/17 History of present illness: 61-year-old male with a history of hypertension, COPD, hyperlipidemia [facility] with complaints of diarrhea 1 week. She has multiple episodes per day, too numerous to count, also complaining of nausea vomiting and abdominal cramping, decrease oral intake. She had small amounts of blood 2, also has a history of hemorrhoids. Patient states she passed out. No fever or chills Review Of Systems: Constitutional: no weight loss Ears, eyes, nose, mouth and throat: no nasal congestion, no nasal discharge, no sinus pressure, blurry vision, diplopia Neck: No neck pain or rigidity. Cardiovascular: no chest pain, orthopnea, palpitations Respiratory: No shortness of breath, cough Gastrointestinal:+abdominal pain Genitourinary : no dysuria, frequency , hematuria Musculoskeletal: no muscle ache Integumentary: no rash, no pruritis Neurological: no parathesias, focal weakness Endocrine: no cold or heat intolerance, no polyuria or polydipsia Hematologic/Lymphatic: no easy bruising, no easy bleeding, no gland swelling Allergic/Immunologic: no urticaria, no angioedema. PAST MEDICAL HISTORY:hypertension, COPD, hyperlipidemia PAST SURGICAL HISTORY: Hysterectomy FAmILY HISTORY:hypertension SOCIAL HISTORY: Denies alcohol, tobacco, drugs Selected Entries 05/20/17 05/20/17 05/20/17 13:30 13:45 14:06 Pulse Rate 101 H Pulse Rate [ 74 Bilateral Bases ] Respiratory 22 Rate Blood Pressure 103/53 Laboratory Tests 05/20/17 05/20/17 05/20/17 05:03 05:30 05:30 WBC 44.4 H* Hgb 7.6 L Hct 23.7 L Plt Count 272 POC ABG pH 7.322 L POC ABG pCO2 46.3 H POC ABG pO2 160 H POC ABG HCO3 23.9 Sodium 139 Potassium 3.5 L Chloride 106.0 Carbon Dioxide 23 Anion Gap 14 BUN 23 H Creatinine 2.1 H Objective Vital Signs - 12hr 05/20/17 05/20/17 05/20/17 02:15 02:30 02:45 Temperature Pulse Rate 118 H 89 86 Pulse Rate [ Bilateral Bases ] Pulse Rate [ From Monitor] Respiratory 27 H 20 20 Rate Respiratory Rate [Bilateral Bases] Blood Pressure 63/31 92/52 93/50 O2 Sat by Pulse 100 100 Oximetry 05/20/17 05/20/17 05/20/17 03:00 03:15 03:30 Temperature Pulse Rate 88 83 76 Pulse Rate [ Bilateral Bases ] Pulse Rate [ From Monitor] Respiratory 20 19 20 Rate Respiratory Rate [Bilateral Bases] Blood Pressure 90/42 94/57 96/51 O2 Sat by Pulse 100 100 100 Oximetry 05/20/17 05/20/17 05/20/17 03:45 03:52 04:00 Temperature 97.6 F Pulse Rate 82 Pulse Rate [ Bilateral Bases ] Pulse Rate [ 80 From Monitor] Respiratory 20 20 Rate Respiratory Rate [Bilateral Bases] Blood Pressure 86/50 O2 Sat by Pulse 100 99 Oximetry 05/20/17 05/20/17 05/20/17 04:01 04:15 04:30 Temperature Pulse Rate 86 99 H 93 H Pulse Rate [ Bilateral Bases ] Pulse Rate [ From Monitor] Respiratory 20 18 20 Rate Respiratory Rate [Bilateral Bases] Blood Pressure 95/73 95/73 95/32 O2 Sat by Pulse 100 100 Oximetry 05/20/17 05/20/17 05/20/17 04:45 04:58 05:00 Temperature Pulse Rate 89 70 80 Pulse Rate [ Bilateral Bases ] Pulse Rate [ From Monitor] Respiratory 21 20 Rate Respiratory Rate [Bilateral Bases] Blood Pressure 107/55 107/55 111/50 O2 Sat by Pulse 100 100 100 Oximetry 05/20/17 05/20/17 05/20/17 05:15 05:30 05:45 Temperature Pulse Rate 94 H 85 85 Pulse Rate [ Bilateral Bases ] Pulse Rate [ From Monitor] Respiratory 20 20 20 Rate Respiratory Rate [Bilateral Bases] Blood Pressure 109/50 119/53 110/54 O2 Sat by Pulse 98 99 99 Oximetry 05/20/17 05/20/17 05/20/17 06:00 06:15 06:30 Temperature Pulse Rate 77 84 102 H Pulse Rate [ Bilateral Bases ] Pulse Rate [ From Monitor] Respiratory 19 20 20 Rate Respiratory Rate [Bilateral Bases] Blood Pressure 108/52 102/49 93/51 O2 Sat by Pulse 99 98 100 Oximetry 05/20/17 05/20/17 05/20/17 06:45 07:01 07:15 Temperature Pulse Rate 105 H 105 H 79 Pulse Rate [ Bilateral Bases ] Pulse Rate [ From Monitor] Respiratory 20 20 20 Rate Respiratory Rate [Bilateral Bases] Blood Pressure 99/53 63/36 121/56 O2 Sat by Pulse 96 100 Oximetry 05/20/17 05/20/17 05/20/17 07:30 07:45 08:00 Temperature 97.7 F Pulse Rate 73 71 70 Pulse Rate [ Bilateral Bases ] Pulse Rate [ 88 From Monitor] Respiratory 19 19 19 Rate Respiratory Rate [Bilateral Bases] Blood Pressure 117/59 128/62 135/57 O2 Sat by Pulse 100 100 100 Oximetry 05/20/17 05/20/17 05/20/17 08:15 08:25 08:29 Temperature Pulse Rate 72 76 Pulse Rate [ 73 Bilateral Bases ] Pulse Rate [ From Monitor] Respiratory 20 Rate Respiratory 89 H Rate [Bilateral Bases] Blood Pressure 128/62 128/62 O2 Sat by Pulse 100 100 Oximetry 05/20/17 05/20/17 05/20/17 08:30 08:45 08:52 Temperature Pulse Rate 74 75 Pulse Rate [ 103 H Bilateral Bases ] Pulse Rate [ From Monitor] Respiratory 20 20 Rate Respiratory 20 Rate [Bilateral Bases] Blood Pressure 117/56 126/61 O2 Sat by Pulse 100 100 Oximetry 05/20/17 05/20/17 05/20/17 09:01 09:15 09:30 Temperature Pulse Rate 76 96 H 76 Pulse Rate [ Bilateral Bases ] Pulse Rate [ From Monitor] Respiratory 21 20 19 Rate Respiratory Rate [Bilateral Bases] Blood Pressure 103/51 98/46 101/49 O2 Sat by Pulse 100 100 100 Oximetry 05/20/17 05/20/17 05/20/17 09:45 10:00 10:15 Temperature Pulse Rate 75 87 76 Pulse Rate [ Bilateral Bases ] Pulse Rate [ From Monitor] Respiratory 20 20 20 Rate Respiratory Rate [Bilateral Bases] Blood Pressure 104/50 108/52 112/52 O2 Sat by Pulse 100 100 100 Oximetry 05/20/17 05/20/17 05/20/17 10:30 10:45 11:00 Temperature Pulse Rate 91 H 75 72 Pulse Rate [ Bilateral Bases ] Pulse Rate [ From Monitor] Respiratory 21 20 19 Rate Respiratory Rate [Bilateral Bases] Blood Pressure 118/54 115/56 104/54 O2 Sat by Pulse 100 100 100 Oximetry 05/20/17 05/20/17 05/20/17 11:15 11:30 11:45 Temperature Pulse Rate 91 H 95 H 112 H Pulse Rate [ Bilateral Bases ] Pulse Rate [ From Monitor] Respiratory 22 18 21 Rate Respiratory Rate [Bilateral Bases] Blood Pressure 114/59 94/55 104/56 O2 Sat by Pulse 100 100 100 Oximetry 05/20/17 05/20/17 05/20/17 12:00 12:15 12:30 Temperature 98.4 F Pulse Rate 88 83 89 Pulse Rate [ Bilateral Bases ] Pulse Rate [ From Monitor] Respiratory 21 21 19 Rate Respiratory Rate [Bilateral Bases] Blood Pressure 100/56 101/52 111/60 O2 Sat by Pulse 100 100 100 Oximetry 05/20/17 05/20/17 05/20/17 12:45 13:00 13:15 Temperature Pulse Rate 111 H 91 H 88 Pulse Rate [ Bilateral Bases ] Pulse Rate [ From Monitor] Respiratory 18 22 21 Rate Respiratory Rate [Bilateral Bases] Blood Pressure 116/54 100/52 97/51 O2 Sat by Pulse 100 100 100 Oximetry 05/20/17 05/20/17 05/20/17 13:30 13:45 14:06 Temperature Pulse Rate 90 101 H Pulse Rate [ 74 Bilateral Bases ] Pulse Rate [ From Monitor] Respiratory 20 22 Rate Respiratory 21 Rate [Bilateral Bases] Blood Pressure 103/53 81/49 O2 Sat by Pulse 100 100 Oximetry - Labs 05/20/17 05:30 05/20/17 05:30 Diabetes panel 05/20/17 Range/Units 05:30 Sodium 139 (137-145) mmol/L Potassium 3.5 L (3.6-5.0) mmol/L Chloride 106.0 (98-107) mmol/L Carbon Dioxide 23 (22-30) mmol/L BUN 23 H (7-17) mg/dL Creatinine 2.1 H (0.7-1.2) mg/dL Glucose 167 H (65-100) mg/dL Calcium 7.7 L (8.4-10.2) mg/dL Calcium panel 05/20/17 Range/Units 05:30 Calcium 7.7 L (8.4-10.2) mg/dL Pituitary panel 05/20/17 Range/Units 05:30 Sodium 139 (137-145) mmol/L Potassium 3.5 L (3.6-5.0) mmol/L Chloride 106.0 (98-107) mmol/L Carbon Dioxide 23 (22-30) mmol/L BUN 23 H (7-17) mg/dL Creatinine 2.1 H (0.7-1.2) mg/dL Glucose 167 H (65-100) mg/dL Calcium 7.7 L (8.4-10.2) mg/dL Adrenal panel 05/20/17 Range/Units 05:30 Sodium 139 (137-145) mmol/L Potassium 3.5 L (3.6-5.0) mmol/L Chloride 106.0 (98-107) mmol/L Carbon Dioxide 23 (22-30) mmol/L BUN 23 H (7-17) mg/dL Creatinine 2.1 H (0.7-1.2) mg/dL Glucose 167 H (65-100) mg/dL Calcium 7.7 L (8.4-10.2) mg/dL
[2017-05-20] MEDS: FLORANEX PO SCH ×2 (14:16→23:21)
[2017-05-20 14:23] LABS: INR 1.89 (0.87-1.13)
[2017-05-20 14:24] LABS: Partial Thromboplastin Time 44.6 Sec. (24.2-36.6)
[2017-05-20] MEDS: HEPARIN IV PRN (17:58)
[2017-05-20 20:29] LABS: INR 1.76 (0.87-1.13)
[2017-05-20 20:49] LABS: Partial Thromboplastin Time 172.2 Sec. (24.2-36.6)
[2017-05-20 21:25] LABS: Hematocrit 31.9 % (30.3-42.9); Hemoglobin 10.2 gm/dl (10.1-14.3); Mean Corpuscular HGB Conc 32 % (30-34); Mean Corpuscular Hemoglobin 29 pg (28-32); Mean Corpuscular Volume 89 fl (79-97); Platelet Count 218 K/mm3 (140-440); Red Cell Distribution Width 15.8 % (13.2-15.2)
[2017-05-20 21:35] LABS: White Blood Count 38.3 K/mm3 (4.5-11.0)
[2017-05-21] MEDS ORDERED: NACL 0.9% 500 ML 500 ML IV ONE ×4 (00:14→18:30)
[2017-05-21] MEDS: LEVOPHED 8 MG in NACL 0.9% 250ML 242 ML IV SCH ×4 (00:56→23:00)
[2017-05-21] MEDS: VANCOMYCIN PO PO SCH ×4 (00:57→18:35)
[2017-05-21] MEDS: FLAGYL 500 MG/100 ML 500 MG/100 ML BAG IV SCH ×4 (00:57→17:35)
--- NOTE | 2017-05-21 01:33 | Consultation ---
REASON FOR CONSULTATION: Rule out severe colitis/toxic megacolon. HISTORY OF PRESENT ILLNESS: The patient is a 61-year-old female, who presented to the hospital back on 05/04/2017 with a chief complaint of extensive diarrhea. Also, complains of nausea and vomiting, abdominal cramping. The patient is being treated for C. difficile colitis during this time here at the hospital. Currently, the patient is on pressors and intubated, but it does appear to be awake and alert and responding to commands. ID evaluation was obtained and Dr. Ortiz called me with her concerns of possible septicemia secondary to Clostridium difficile colitis. The patient has been treated with antibiotics during her hospitalization. OTHER PAST MEDICAL HISTORY: Pertinent for COPD and hypertension. Other history as far as surgical history, etc cannot be obtained at this time. We will wait to discuss with family. PHYSICAL EXAMINATION: GENERAL: At this time reveals the patient to be as previously mentioned intubated, but awake and alert. ABDOMEN: consistent with ascites, nontender at present. LABORATORY DATA: Lab work at present includes a CBC, which shows a very high white count of 44, very low H and H of 76 and 23. Platelet count is 272. Electrolytes are essentially normal. Renal status shows consistent with ATN including a BUN of 23 and a creatinine of 2.1. The patient is about to undergo dialysis within the next hour. IMPRESSION: At this time is that of rule out sepsis secondary to toxic megacolon/Clostridium difficile colitis. RECOMMENDATIONS: It appears that the patient will most likely need an exploratory laparotomy and a subtotal colectomy. She is at very high surgical risk and I need to discuss this in detail with the family. Also, would need 2 unit blood transfusions prior to surgery as very low H and H and surgery will be extensive and there may be a lot of edema and infection causing a lot of bleeding. Also, we will need stat clotting studies including PT, PTT, and INR. Also, we will need dialysis preop and medical clearance. We will discuss with you and pending family's wishes, we will schedule the patient for exploratory laparotomy and possible subtotal colectomy. I will follow closely with you. Thank you very much for consultation. JOB# [id number] JAYME/NTS
[2017-05-21 04:53] LABS: ISTAT Base Excess -1; ISTAT HCO3 24.2; ISTAT PH 7.369 (7.35-7.45); ISTAT PO2 89 (80-105); ISTAT SO2 97; ISTAT TCO2 25
[2017-05-21 05:39] LABS: Hematocrit 32.8 % (30.3-42.9); Hemoglobin 10.8 gm/dl (10.1-14.3); Mean Corpuscular HGB Conc 33 % (30-34); Mean Corpuscular Hemoglobin 29 pg (28-32); Mean Corpuscular Volume 88 fl (79-97); Platelet Count 245 K/mm3 (140-440); Red Blood Count 3.71 M/mm3 (3.65-5.03); Red Cell Distribution Width 15.8 % (13.2-15.2)
[2017-05-21 05:40] LABS: White Blood Count 31.6 K/mm3 (4.5-11.0)
[2017-05-21 05:50] LABS: INR 1.53 (0.87-1.13)
[2017-05-21 05:51] LABS: Partial Thromboplastin Time 37.9 Sec. (24.2-36.6)
[2017-05-21 06:03] LABS: Calcium 7.7 mg/dL (8.4-10.2); Chloride 105.1 mmol/L (98-107); Potassium 3.5 mmol/L (3.6-5.0)
[2017-05-21] MEDS: NOVOLOG SUB-Q SCH ×4 (06:21→18:12)
[2017-05-21 06:33] LABS: Basophils % (Manual) 0 % (0.0-1.8); Blastocytes % (Manual) 0 %
[2017-05-21 06:34] LABS: Diff Status Complete; Platelet Estimate Consistent w Auto; Stomatocytes Few; Target Cells Few
[2017-05-21] MEDS: BROVANA NEBU IH SCH ×2 (08:11→19:43)
[2017-05-21] MEDS: PULMICORT IH SCH ×2 (08:11→19:43)
[2017-05-21] MEDS: DUONEB *Not for PRN Use IH SCH ×3 (08:11→20:32)
[2017-05-21] MEDS ORDERED: SUBLIMAZE ONE (08:37)
[2017-05-21] MEDS ORDERED: NACL 0.9% IR ONE ×2 (08:55)
[2017-05-21] MEDS ORDERED: VANCOMYCIN VIAL IV ONE (09:30)
[2017-05-21] MEDS ORDERED: NACL 0.9% 250ML IV ONE (09:30)
[2017-05-21] MEDS: FLORANEX PO SCH ×2 (09:33→14:23)
[2017-05-21] MEDS: HEPARIN SUB-Q SCH ×2 (09:33→21:06)
[2017-05-21] MEDS: PEPCID PO SCH (09:34)
[2017-05-21] MEDS ORDERED: VANCOMYCIN VIAL ONE (09:39)
[2017-05-21] MEDS ORDERED: NACL 0.9% 250ML 250 ML ONE (09:40)
[2017-05-21] MEDS ORDERED: GELFOAM TP ONE ×2 (09:46→10:33)
[2017-05-21] MEDS ORDERED: NACL 0.45% 0 ML IV ONE (09:57)
[2017-05-21] MEDS ORDERED: ePHEDrine SULFATE ONE (09:59)
[2017-05-21] MEDS ORDERED: NACL 0.45% 500 ML IV ONE (09:59)
[2017-05-21] MEDS ORDERED: NACL 0.9% 500 ML IV ONE (10:00)
[2017-05-21] MEDS ORDERED: NACL 0.9% 500 ML 500 ML ONE (10:01)
--- NOTE | 2017-05-21 10:21 | XRay Report ---
AP CHEST :05/21/17 CLINICAL: Intubated.Follow up respiratory failure. COMPARISON:The previous day. FINDINGS: The endotracheal tube is in satisfactory position. Tubes are satisfactory and unchanged. The left PICC line tip is in the SVC. The heart is normal size. Mild central vascular congestion continued bibasal hazy lung opacities. No pneumothorax. IMPRESSION: No change.Central vascular congestion and bilateral pleural effusions.
[2017-05-21] MEDS ORDERED: THROMBIN (BOVINE) TP ONE (10:28)
[2017-05-21] MEDS ORDERED: ZEMURON IV ONE (10:30)
[2017-05-21] MEDS ORDERED: NEO SYNEPHRINE/NS Syringe(OR USE) IV ONE (10:30)
[2017-05-21] MEDS ORDERED: THROMBIN SPRAYKIT (BOVINE) TP ONE (10:34)
[2017-05-21] MEDS ORDERED: AMIDATE IV ONE (10:43)
[2017-05-21] MEDS ORDERED: HYDROGEN PEROXIDE ONE (11:28)
--- NOTE | 2017-05-21 12:29 | Operative Report ---
PREOPERATIVE DIAGNOSIS: Clostridium difficile colitis with toxic megacolon and sepsis. POSTOPERATIVE DIAGNOSIS: Clostridium difficile colitis with toxic megacolon and sepsis. PROCEDURES: 1. Exploratory laparotomy. 2. Subtotal colectomy. 3. Vilma terminal ileostomy. 4. Splenectomy. SURGEON: Frank Paris MD AIRPORT SHUTTLE DRIVER: Dr. Maddox. ANESTHESIA: General. ESTIMATED BLOOD LOSS: Approximately 300 mL. DRAINS: One 19 Bhargav drain left, draining the left subphrenic space. DESCRIPTION OF PROCEDURE: The patient was taken to the operating room, prepped and draped in usual sterile fashion. Midline incision was made and abdomen entered. The entire colon was mobilized from cecum down to the distal sigmoid. The ligature was used to transect the mesentery throughout. GIAs were used to transect the colon at the area of the distal sigmoid and distal ileum. Specimen was then removed. There was some oozing noted in the left upper quadrant. The area was inspected and some oozing was noted around the inferior pole of the spleen as well as a little bit around the splenic hilum. Gelfoam and packing was placed in this area to see if this would stop. However, it is of note that the patient had elevated PTT of 42.8 and was receiving fresh frozen. We waited a while to see this oozing would stop with pressure and Gelfoam and thrombin, but it did not. In view of the fact of the elevated clotting studies, it was decided the safest route would be to proceed with a splenectomy. A splenectomy was performed without incident. The area was then inspected and noted to be dry. Packs were left in this area and we proceeded to check the rest of the abdomen. Mesentery cautery line was all intact. No bleeding or oozing noted. Greater curvature of the stomach was inspected and noted to be fine. The tail of the pancreas also inspected and noted to be fine. NG tube was confirmed to be in the stomach. At this point, packings were removed from the left upper quadrant of the abdomen. The area was noted to be dry. A 19 Bhargav was left draining in this area. The ____was brought out through a separate stab incision and secured to skin with a 2-0 silk suture. The ileostomy was then brought out is a right lower quadrant of the abdomen. The sutures were placed internally to secure to the peritoneum. The entire abdomen was irrigated copiously and dried. Checked for hemostasis and noted to be dry. The fascia was then closed with interrupted #1 Vicryl suture. Subcutaneous tissues irrigated and skin closed loosely with cally and packed with Telfa tasneem soaked with peroxide as the patient was ALLERGIC TO IODINE. The incision was then isolated with a towel and the ileostomy matured. [place] were placed on the fascia and the lowermost portion of the ileostomy. The staple line was then removed and sutures placed from the skin to mid ileostomy and subsequently out through the end of the ileostomy is a Vilma ileostomy fashion. K-wire and digital inspection was then done of the ileostomy to assure that lumen was patent, which it was. The patient tolerated procedure well, but remains in guarded condition. The patient will come here to recovery for further resuscitation and then back up to ICU. Condition remains critical. JOB# [id number] JAYME/CHIVO
--- NOTE | 2017-05-21 13:12 | Progress Note ---
Assessment and Plan Impression * Acute renal failure. Most likely secondary to ATN * Respiratory failure * Septic shock * Anemia * C. difficile colitis * COPD Recommendations * Status post initiation of hemodialysis on 05/18/2017 * Patient had hemodialysis 3 days in a row. Volume status is much better. Her labs are acceptable. Shall hold dialysis today and reassess her tomorrow * Status post colectomy 05/21/17 * Avoid Nephrotoxins * Adjust meds for GFR less than 10 * No evidence of renal recovery at this time. Subjective Date of service: 05/21/17 Principal diagnosis: Septic shock,C. diff colitis Interval history: Patient seen in recovery room. Status post colectomy. Patient remains on the ventilator. On 30% FiO2. Currently on Levophed Objective - Vital Signs Vital signs: Vital Signs - 12hr 05/21/17 05/21/17 05/21/17 01:15 01:30 01:45 Temperature Pulse Rate 72 107 H 115 H Pulse Rate [ Bilateral Bases ] Respiratory 17 20 14 Rate Respiratory Rate [Bilateral Bases] Blood Pressure 128/56 117/56 120/58 O2 Sat by Pulse 100 100 100 Oximetry 05/21/17 05/21/17 05/21/17 02:00 02:15 02:30 Temperature Pulse Rate 72 90 125 H Pulse Rate [ Bilateral Bases ] Respiratory 20 20 20 Rate Respiratory Rate [Bilateral Bases] Blood Pressure 127/60 113/62 113/54 O2 Sat by Pulse 100 100 100 Oximetry 05/21/17 05/21/17 05/21/17 02:39 02:45 02:54 Temperature 97.8 F 97.5 F L Pulse Rate 92 H 96 H 85 Pulse Rate [ Bilateral Bases ] Respiratory 22 21 17 Rate Respiratory Rate [Bilateral Bases] Blood Pressure 113/54 116/56 121/56 O2 Sat by Pulse 100 100 100 Oximetry 05/21/17 05/21/17 05/21/17 03:00 03:15 03:24 Temperature 97.2 F L Pulse Rate 92 H 97 H 83 Pulse Rate [ Bilateral Bases ] Respiratory 20 21 20 Rate Respiratory Rate [Bilateral Bases] Blood Pressure 126/63 125/59 129/61 O2 Sat by Pulse 100 100 100 Oximetry 05/21/17 05/21/17 05/21/17 03:30 03:45 04:00 Temperature 98.8 F Pulse Rate 87 96 H Pulse Rate [ Bilateral Bases ] Respiratory 19 20 18 Rate Respiratory Rate [Bilateral Bases] Blood Pressure 129/61 128/63 O2 Sat by Pulse 100 100 100 Oximetry 05/21/17 05/21/17 05/21/17 04:01 04:15 04:30 Temperature Pulse Rate 87 99 H 84 Pulse Rate [ Bilateral Bases ] Respiratory 21 19 Rate Respiratory Rate [Bilateral Bases] Blood Pressure 118/68 124/71 124/63 O2 Sat by Pulse 100 100 99 Oximetry 05/21/17 05/21/17 05/21/17 04:42 04:45 05:00 Temperature Pulse Rate 100 H 100 H 70 Pulse Rate [ Bilateral Bases ] Respiratory 20 20 Rate Respiratory Rate [Bilateral Bases] Blood Pressure 124/63 126/62 118/62 O2 Sat by Pulse 100 99 100 Oximetry 05/21/17 05/21/17 05/21/17 05:15 05:30 05:45 Temperature Pulse Rate 96 H 72 69 Pulse Rate [ Bilateral Bases ] Respiratory 20 20 20 Rate Respiratory Rate [Bilateral Bases] Blood Pressure 106/55 102/53 114/60 O2 Sat by Pulse 100 100 100 Oximetry 05/21/17 05/21/17 05/21/17 06:00 06:15 06:30 Temperature Pulse Rate 68 70 73 Pulse Rate [ Bilateral Bases ] Respiratory 19 20 20 Rate Respiratory Rate [Bilateral Bases] Blood Pressure 116/59 122/68 126/63 O2 Sat by Pulse 100 100 100 Oximetry 05/21/17 05/21/17 05/21/17 06:45 07:00 07:15 Temperature Pulse Rate 74 71 88 Pulse Rate [ Bilateral Bases ] Respiratory 17 13 19 Rate Respiratory Rate [Bilateral Bases] Blood Pressure 130/67 124/68 100/55 O2 Sat by Pulse 100 100 100 Oximetry 05/21/17 05/21/17 05/21/17 07:30 07:45 08:00 Temperature 97.5 F L Pulse Rate 68 69 121 H Pulse Rate [ Bilateral Bases ] Respiratory 19 20 24 Rate Respiratory Rate [Bilateral Bases] Blood Pressure 120/65 120/63 127/68 O2 Sat by Pulse 100 100 100 Oximetry 05/21/17 05/21/17 05/21/17 08:07 08:11 08:15 Temperature Pulse Rate 94 H 107 H Pulse Rate [ 85 Bilateral Bases ] Respiratory 16 Rate Respiratory 20 Rate [Bilateral Bases] Blood Pressure 127/68 113/69 O2 Sat by Pulse 100 100 Oximetry 05/21/17 05/21/17 08:30 08:36 Temperature Pulse Rate 101 H Pulse Rate [ 114 H Bilateral Bases ] Respiratory 19 Rate Respiratory 20 Rate [Bilateral Bases] Blood Pressure 103/66 O2 Sat by Pulse 100 Oximetry - General Appearance General appearance: well-developed, well-nourished, appears stated age, intubated EENT: PERRL, mucous membranes moist Neck: no JVD, no thyromegaly Respiratory: Present: Clear to Ascultation Cardiology: regular Gastrointestinal: other (postop. Midline dressing noted. Colostomy bag in place) Integumentary: other (1+ edema) - Lab 05/21/17 05:20 05/21/17 05:20 Most recent lab results Calcium 7.7 mg/dL (8.4-10.2) L 05/21/17 05:20 Phosphorus 5.40 mg/dL (2.5-4.5) H 05/16/17 10:20 Magnesium 1.40 mg/dL (1.7-2.3) L 05/20/17 05:30 Urine Creatinine 28.0 mg/dL (0.1-20.0) H 05/05/17 Unknown Urine Sodium 129 mmol/L 05/05/17 Unknown
[2017-05-21 13:28] LABS: Hematocrit 27.6 % (30.3-42.9); Mean Corpuscular HGB Conc 33 % (30-34); Mean Corpuscular Hemoglobin 29 pg (28-32); Mean Corpuscular Volume 89 fl (79-97); Platelet Count 189 K/mm3 (140-440); Red Blood Count 3.09 M/mm3 (3.65-5.03); Red Cell Distribution Width 16.3 % (13.2-15.2)
[2017-05-21 13:31] LABS: White Blood Count 32.9 K/mm3 (4.5-11.0)
[2017-05-21 13:40] LABS: INR 1.59 (0.87-1.13)
[2017-05-21 13:41] LABS: Partial Thromboplastin Time 41.1 Sec. (24.2-36.6)
[2017-05-21 13:47] LABS: Albumin 1.7 g/dL (3.9-5); Albumin/Globulin Ratio 1.1 %; Bilirubin,Total 0.2 mg/dL (0.1-1.2); Calcium 6.5 mg/dL (8.4-10.2); Chloride 108.4 mmol/L (98-107); Potassium 3.3 mmol/L (3.6-5.0); Total Protein 3.2 g/dL (6.3-8.2)
[2017-05-21 14:13] LABS: Anisocytosis 2+; Basophils % (Manual) 0 % (0.0-1.8); Blastocytes % (Manual) 0 %; Burr Cells Few; Diff Status Complete; Elliptocytes Few; Helmet Cells Few; Ovalocytes 1+; Poikilocytosis 1+; Polychromasia 1+; Target Cells Rare
[2017-05-21] MEDS: MERREM 1,000 MG in NACL 0.9% 20 ML IV SCH (14:30)
[2017-05-21] MEDS: MORPHINE IV PRN (14:50)
--- NOTE | 2017-05-21 14:55 | Progress Note ---
Assessment and Plan Assessment: 1) Persistent Septic Shock - worsening due to severe C diff colitis . CRP= 14 -->2.3. Procal=2.4. 2) Severe C diff Colitis: severe-recently exposed to broad spectrum abx. CT abd showed colitis. 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 reactive from colitis versus real 4) LUIS-worsening - no won HD 6) COPD 7) Resp failure Plan: -continue meropenem to cover empirically peritonitis and IV flagyl for now -needs vaccination post-splenectomy -close monitoring Thank you Dr Mejia for your consultation, will follow up with you. Winifred Guerrero MD Infectious Diseases Specialist [facility] [phone] Subjective Date of service: 05/21/17 Principal diagnosis: Septic shock,C. diff colitis Interval history: Just came from the OR, on the vent. NPO Microbiology: Blood cultures: 05/05 neg Urine cultures: 05/05 neg 05/19 billy Stool cultures: C diff 05/04 POSITIVE Resp culture: 05/16 neg Current Antimicrobials: Vancomycin PO 05/05 - no given Metronidazole 05/05 meropenem 05/17 Previous Antimicrobials: Zosyn Levaquin Vancomycin PO Metronidazole Vanco rectal 05/07 Ceftriaxone 05/11 Objective - Exam Narrative Exam: General appearance: sedated on the vent Eyes: anicteric sclerae HENT: Atraumatic; oropharynx +ETT Neck: Trachea midline; supple, no thyromegaly or lymphadenopathy Lungs: scattered rhonchi CV: rrr Abdomen: Soft, +surgical wound Extremities: + peripheral edema Skin: Normal temperature, turgor and texture; no rash, ulcers or subcutaneous nodules Psych: Anxious. Neuro: alert and oriented x 3. Moving all extermities Lines: right SC TLC, rectal tube with copious black diarrhea - Constitutional Vitals: Vital Signs Temp Pulse Resp BP Pulse Ox 98.9 F 131 H 19 117/78 100 05/21/17 13:30 05/21/17 14:26 05/21/17 14:26 05/21/17 13:59 05/21/17 13:59 Temperature -Last 24 Hours Temperature 98.9 F Temperature 97.4 F Temperature 97.5 F Temperature 98.8 F Temperature 97.2 F Temperature 97.5 F Temperature 97.8 F Temperature 98.6 F Temperature 98.9 F Temperature 98.0 F Temperature 98.0 F Temperature 98.0 F Temperature 98.2 F Temperature 98.2 F Temperature 98.2 F Temperature 98.2 F Temperature 98.2 F Temperature 98.4 F - Labs CBC & Chem 7: 05/21/17 13:00 05/21/17 13:00 Labs: Abnormal lab results 05/20/17 05/20/17 05/20/17 Range/Units 13:46 17:36 20:00 WBC (4.5-11.0) K/mm3 RBC (3.65-5.03) M/mm3 Hgb (10.1-14.3) gm/dl Hct (30.3-42.9) % RDW (13.2-15.2) % Seg Neuts % (Manual) (40.0-70.0) % Lymphocytes % (Manual) (13.4-35.0) % Nucleated RBC % (0.0-0.9) % Seg Neutrophils # Man (1.8-7.7) K/mm3 Lymphocytes # (Manual) (1.2-5.4) K/mm3 Eosinophils # (Manual) (0.0-0.4) K/mm3 PT 21.4 H (12.2-14.9) Sec. INR 1.76 H (0.87-1.13) APTT 172.2 H* (24.2-36.6) Sec. Potassium (3.6-5.0) mmol/L Chloride (98-107) mmol/L Carbon Dioxide (22-30) mmol/L Creatinine (0.7-1.2) mg/dL Glucose (65-100) mg/dL POC Glucose 144 H (70-105) Calcium (8.4-10.2) mg/dL Alkaline Phosphatase (35-129) units/L Total Protein (6.3-8.2) g/dL Albumin (3.9-5) g/dL Crossmatch See Detail 05/20/17 05/20/17 05/20/17 Range/Units 20:44 22:20 23:37 WBC 38.3 H (4.5-11.0) K/mm3 RBC 3.60 L (3.65-5.03) M/mm3 Hgb (10.1-14.3) gm/dl Hct (30.3-42.9) % RDW 15.8 H (13.2-15.2) % Seg Neuts % (Manual) (40.0-70.0) % Lymphocytes % (Manual) (13.4-35.0) % Nucleated RBC % (0.0-0.9) % Seg Neutrophils # Man (1.8-7.7) K/mm3 Lymphocytes # (Manual) (1.2-5.4) K/mm3 Eosinophils # (Manual) (0.0-0.4) K/mm3 PT (12.2-14.9) Sec. INR (0.87-1.13) APTT 42.8 H (24.2-36.6) Sec. Potassium (3.6-5.0) mmol/L Chloride (98-107) mmol/L Carbon Dioxide (22-30) mmol/L Creatinine (0.7-1.2) mg/dL Glucose (65-100) mg/dL POC Glucose 113 H (70-105) Calcium (8.4-10.2) mg/dL Alkaline Phosphatase (35-129) units/L Total Protein (6.3-8.2) g/dL Albumin (3.9-5) g/dL Crossmatch 05/21/17 05/21/17 05/21/17 Range/Units 05:20 05:20 05:20 WBC 31.6 H (4.5-11.0) K/mm3 RBC (3.65-5.03) M/mm3 Hgb (10.1-14.3) gm/dl Hct (30.3-42.9) % RDW 15.8 H (13.2-15.2) % Seg Neuts % (Manual) 90.0 H (40.0-70.0) % Lymphocytes % (Manual) 3.0 L (13.4-35.0) % Nucleated RBC % (0.0-0.9) % Seg Neutrophils # Man 28.4 H (1.8-7.7) K/mm3 Lymphocytes # (Manual) 0.9 L (1.2-5.4) K/mm3 Eosinophils # (Manual) 1.3 H (0.0-0.4) K/mm3 PT 19.1 H (12.2-14.9) Sec. INR 1.53 H (0.87-1.13) APTT 37.9 H (24.2-36.6) Sec. Potassium 3.5 L (3.6-5.0) mmol/L Chloride (98-107) mmol/L Carbon Dioxide (22-30) mmol/L Creatinine 1.5 H (0.7-1.2) mg/dL Glucose 106 H (65-100) mg/dL POC Glucose (70-105) Calcium 7.7 L (8.4-10.2) mg/dL Alkaline Phosphatase (35-129) units/L Total Protein (6.3-8.2) g/dL Albumin (3.9-5) g/dL Crossmatch 05/21/17 05/21/17 05/21/17 Range/Units 05:31 13:00 13:00 WBC 32.9 H (4.5-11.0) K/mm3 RBC 3.09 L (3.65-5.03) M/mm3 Hgb 9.0 L (10.1-14.3) gm/dl Hct 27.6 L (30.3-42.9) % RDW 16.3 H (13.2-15.2) % Seg Neuts % (Manual) 86.0 H (40.0-70.0) % Lymphocytes % (Manual) 2.0 L (13.4-35.0) % Nucleated RBC % 2.0 H (0.0-0.9) % Seg Neutrophils # Man 28.3 H (1.8-7.7) K/mm3 Lymphocytes # (Manual) 0.7 L (1.2-5.4) K/mm3 Eosinophils # (Manual) (0.0-0.4) K/mm3 PT (12.2-14.9) Sec. INR (0.87-1.13) APTT (24.2-36.6) Sec. Potassium 3.3 L (3.6-5.0) mmol/L Chloride 108.4 H (98-107) mmol/L Carbon Dioxide 20 L (22-30) mmol/L Creatinine 1.4 H (0.7-1.2) mg/dL Glucose 119 H (65-100) mg/dL POC Glucose 126 H (70-105) Calcium 6.5 L D (8.4-10.2) mg/dL Alkaline Phosphatase 28 L (35-129) units/L Total Protein 3.2 L (6.3-8.2) g/dL Albumin 1.7 L (3.9-5) g/dL Crossmatch 05/21/17 Range/Units 13:00 WBC (4.5-11.0) K/mm3 RBC (3.65-5.03) M/mm3 Hgb (10.1-14.3) gm/dl Hct (30.3-42.9) % RDW (13.2-15.2) % Seg Neuts % (Manual) (40.0-70.0) % Lymphocytes % (Manual) (13.4-35.0) % Nucleated RBC % (0.0-0.9) % Seg Neutrophils # Man (1.8-7.7) K/mm3 Lymphocytes # (Manual) (1.2-5.4) K/mm3 Eosinophils # (Manual) (0.0-0.4) K/mm3 PT 19.7 H (12.2-14.9) Sec. INR 1.59 H (0.87-1.13) APTT 41.1 H (24.2-36.6) Sec. Potassium (3.6-5.0) mmol/L Chloride (98-107) mmol/L Carbon Dioxide (22-30) mmol/L Creatinine (0.7-1.2) mg/dL Glucose (65-100) mg/dL POC Glucose (70-105) Calcium (8.4-10.2) mg/dL Alkaline Phosphatase (35-129) units/L Total Protein (6.3-8.2) g/dL Albumin (3.9-5) g/dL Crossmatch
--- NOTE | 2017-05-21 15:29 | Progress Note ---
Assessment and Plan CXR = small bilateral pleural effusions CT a/p reviewed = bilateral effusions with compressive atelectasis Imp: 1. Cdiff colitis 2. Sepsis with septic shock presumably related to #1, r/o other/new infections; do not suspect pneumonia 3. LUIS 4. Acute respiratory failure, hypoxia and hypercapnea 5. Centrilobular emphysema, severe/extensive on prior CT chest 6. Pulm HTN, probably due to #5 7. S/p Exlap, colectomy, splenectomy Rec: 1. Cont. bronchodilators; continue to hold off on steroids 2. F/u repeat blood and urine cultures; ABX per ID; consider anti-fungal coverage 3. Holding HD today 4. Gentle hydration with D5 1/2 NS overnight; will probably need TPN; TFs off s/ p surgery 5. Rest on ventilator tonight 6. DVT and GI PPx 7. Titrate Levophed to keep MAP > 65; treat pain as needed 8. Likely will need LTAC 9. Prognosis is guarded; plan of care reviewed with family, they understand/ agree CCT 31 minutes Subjective Date of service: 05/21/17 Principal diagnosis: Septic shock,C. diff colitis Interval history: Had HD again. Remains on Levophed. Awake, on ventilator, PRVC. S/p exlap, colectomy, ileostomy, and splenectomy. Appears to be in pain. Tachycardic. Active Medications Acetaminophen (Tylenol) 650 mg PO Q4H PRN PRN Reason: Pain MILD(1-3)/Fever >100.5/KHOURY Last Admin: 05/05/17 12:55 Dose: 650 mg Albuterol (Proventil) 2.5 mg IH Q4HRT PRN PRN Reason: Shortness Of Breath Albuterol/Ipratropium (Duoneb *Not For Prn Use*) 1 ampul IH TIDRT [facility] Last Admin: 05/21/17 14:05 Dose: 1 ampul Lipase/Protease/Amylase (Rohan Pearce 10,500 Unit) 1 each FEEDTUBE PRN PRN PRN Reason: For Clogged Feeding Tube Arformoterol Tartrate (Brovana Nebu) 15 mcg IH Q12HRT [facility] Last Admin: 05/21/17 08:11 Dose: 15 mcg Bisacodyl (Dulcolax) 10 mg OK QDAY PRN PRN Reason: Constipation unrelieved by MOM Budesonide (Pulmicort) 0.25 mg IH Q12HRT [facility] Last Admin: 05/21/17 08:11 Dose: 0.25 mg Dextrose (D50w (25gm) Syringe) 50 ml IV PRN PRN PRN Reason: Hypoglycemia Epoetin Eugene (Epogen) 20,000 unit IV PHYLLIS PRN PRN Reason: hemodialysis Last Admin: 05/20/17 15:30 Dose: 20,000 unit Famotidine (Pepcid) 20 mg PO DAILY [facility] Last Admin: 05/21/17 09:34 Dose: Not Given Heparin Sodium (Porcine) (Heparin) 5,000 unit SUB-Q BID [facility] Last Admin: 05/21/17 09:33 Dose: Not Given Heparin Sodium (Porcine) (Heparin) 5,000 unit IV PHYLLIS PRN PRN Reason: hemodialysis Last Admin: 05/20/17 17:58 Dose: 5,000 unit Hydrocortisone Acetate (Proctosol-Hc) 1 applic OK Q8H PRN PRN Reason: Hemorrhoids Last Admin: 05/05/17 23:40 Dose: 1 applic Hydrophilic Ointment (Vaseline Lip Therapy) 1 applic TP Q2HR PRN PRN Reason: Dry Lips Last Admin: 05/16/17 20:58 Dose: 1 applic Sodium Chloride (Nacl 0.9% 500 Ml) 500 mls @ 10 mls/hr IV PRN PRN PRN Reason: FOR CVP Last Infusion: 05/07/17 13:17 Dose: Infused Metronidazole (Flagyl 500 Mg/100 Ml) 500 mg in 100 mls @ 100 mls/hr IV Q6HR [facility] Last Admin: 05/21/17 14:23 Dose: Not Given Norepinephrine 8 mg/ Sodium (Chloride) 250 mls @ 3.75 mls/hr IV TITR DUNG; 2 MCG /MIN PRN Reason: Protocol Last Titration: 05/21/17 15:02 Dose: 20 mcg/min, 37.5 mls/hr Meropenem 1,000 mg/ Sodium (Chloride) 20 mls @ 20 mls/10 min IV Q24H [facility] Last Admin: 05/21/17 14:30 Dose: 20 mls/10 min Sodium Chloride (Nacl 0.9%) 100 mls @ 999 mls/hr IV PHYLLIS PRN PRN Reason: Hypotension Sodium Chloride (Nacl 0.9%) 100 mls @ 999 mls/hr IV PHYLLIS PRN PRN Reason: Hypotension Sodium Chloride (Nacl 0.9%) 100 mls @ 999 mls/hr IV PHYLLIS PRN PRN Reason: Hypotension Dextrose/Sodium Chloride (D5/0.45ns) 1,000 mls @ 42 mls/hr IV DIRECT DUNG Insulin Aspart (Novolog) 0 units SUB-Q Q6HR DUNG PRN Reason: Protocol Last Admin: 05/21/17 14:22 Dose: Not Given Lactobacillus Acidophilus (Floranex) 1 each PO TID [facility] Last Admin: 05/21/17 14:23 Dose: Not Given Morphine Sulfate (Morphine) 1 mg IV Q6H PRN PRN Reason: Pain, Moderate (4-6) Last Admin: 05/21/17 14:50 Dose: 1 mg Multi-Ingred Cream/Lotion/Oil/Oint (Artificial Tears Ophth Oint) 1 applic OU Q4HR PRN PRN Reason: Dry Eye(s) Ondansetron HCl (Zofran) 4 mg IV Q4H PRN PRN Reason: N/V unrelieved by Pilar Last Admin: 05/12/17 10:36 Dose: 4 mg Simple Syrup (Simple Syrup) 15 ml FEEDTUBE PRN PRN PRN Reason: Hypoglycemia Simple Syrup (Simple Syrup) 30 ml FEEDTUBE PRN PRN PRN Reason: Hypoglycemia Sodium Bicarbonate (Sodium Bicarbonate) 325 mg FEEDTUBE PRN PRN PRN Reason: For Clogged Feeding Tube Vancomycin HCl (Vancomycin Po) 250 mg PO Q6HR [facility] Last Admin: 05/21/17 14:22 Dose: Not Given Objective Vital Signs - 12hr 05/21/17 05/21/17 05/21/17 03:30 03:45 04:00 Temperature 98.8 F Pulse Rate 87 96 H Pulse Rate [ Bilateral Bases ] Respiratory 19 20 18 Rate Respiratory Rate [Bilateral Bases] Blood Pressure 129/61 128/63 O2 Sat by Pulse 100 100 100 Oximetry 05/21/17 05/21/17 05/21/17 04:01 04:15 04:30 Temperature Pulse Rate 87 99 H 84 Pulse Rate [ Bilateral Bases ] Respiratory 21 19 Rate Respiratory Rate [Bilateral Bases] Blood Pressure 118/68 124/71 124/63 O2 Sat by Pulse 100 100 99 Oximetry 05/21/17 05/21/17 05/21/17 04:42 04:45 05:00 Temperature Pulse Rate 100 H 100 H 70 Pulse Rate [ Bilateral Bases ] Respiratory 20 20 Rate Respiratory Rate [Bilateral Bases] Blood Pressure 124/63 126/62 118/62 O2 Sat by Pulse 100 99 100 Oximetry 05/21/17 05/21/17 05/21/17 05:15 05:30 05:45 Temperature Pulse Rate 96 H 72 69 Pulse Rate [ Bilateral Bases ] Respiratory 20 20 20 Rate Respiratory Rate [Bilateral Bases] Blood Pressure 106/55 102/53 114/60 O2 Sat by Pulse 100 100 100 Oximetry 05/21/17 05/21/17 05/21/17 06:00 06:15 06:30 Temperature Pulse Rate 68 70 73 Pulse Rate [ Bilateral Bases ] Respiratory 19 20 20 Rate Respiratory Rate [Bilateral Bases] Blood Pressure 116/59 122/68 126/63 O2 Sat by Pulse 100 100 100 Oximetry 05/21/17 05/21/17 05/21/17 06:45 07:00 07:15 Temperature Pulse Rate 74 71 88 Pulse Rate [ Bilateral Bases ] Respiratory 17 13 19 Rate Respiratory Rate [Bilateral Bases] Blood Pressure 130/67 124/68 100/55 O2 Sat by Pulse 100 100 100 Oximetry 05/21/17 05/21/17 05/21/17 07:30 07:45 08:00 Temperature 97.5 F L Pulse Rate 68 69 121 H Pulse Rate [ Bilateral Bases ] Respiratory 19 20 24 Rate Respiratory Rate [Bilateral Bases] Blood Pressure 120/65 120/63 127/68 O2 Sat by Pulse 100 100 100 Oximetry 05/21/17 05/21/17 05/21/17 08:07 08:11 08:15 Temperature Pulse Rate 94 H 107 H Pulse Rate [ 85 Bilateral Bases ] Respiratory 16 Rate Respiratory 20 Rate [Bilateral Bases] Blood Pressure 127/68 113/69 O2 Sat by Pulse 100 100 Oximetry 05/21/17 05/21/17 05/21/17 08:30 08:36 12:10 Temperature 97.4 F L Pulse Rate 101 H 128 H Pulse Rate [ 114 H Bilateral Bases ] Respiratory 19 16 Rate Respiratory 20 Rate [Bilateral Bases] Blood Pressure 103/66 110/71 O2 Sat by Pulse 100 100 Oximetry 05/21/17 05/21/17 05/21/17 12:15 12:20 12:40 Temperature Pulse Rate 124 H 129 H 125 H Pulse Rate [ Bilateral Bases ] Respiratory 17 21 10 L Rate Respiratory Rate [Bilateral Bases] Blood Pressure 106/71 126/81 106/70 O2 Sat by Pulse Oximetry 05/21/17 05/21/17 05/21/17 13:05 13:30 13:59 Temperature 98.9 F Pulse Rate 120 H 120 H 125 H Pulse Rate [ Bilateral Bases ] Respiratory 10 L 19 Rate Respiratory Rate [Bilateral Bases] Blood Pressure 103/76 106/66 117/78 O2 Sat by Pulse 100 Oximetry 05/21/17 05/21/17 14:05 14:26 Temperature Pulse Rate Pulse Rate [ 127 H 131 H Bilateral Bases ] Respiratory Rate Respiratory 19 19 Rate [Bilateral Bases] Blood Pressure O2 Sat by Pulse Oximetry Constitutional: alert, other (critically ill on vent) Eyes: non-icteric ENT: oropharynx moist Neck: supple Effort: normal Ascultation: Bilateral: other (coarse BS bilaterally) Percussion: Bilateral: not dull Cardiovascular: other (tachy, RR; no mrg) Gastrointestinal: hypoactive bowel sounds, tender, other (distended, ostomy looks good) Integumentary: normal Extremities: no cyanosis, pink and warm, anasarca (1+ bilateral LE edema) Neurologic: normal mental status, non-focal exam, pupils equal and round, CN II- XII normal Psychiatric: mood appropriate, affect normal CBC and BMP: 05/21/17 13:00 05/21/17 13:00 ABG, PT/INR, D-dimer: ABG POC ABG pH 7.369 (7.35-7.45) 05/21/17 04:46 POC ABG pCO2 42.0 (35-45) 05/21/17 04:46 POC ABG pO2 89 (80-105) 05/21/17 04:46 POC ABG HCO3 24.2 05/21/17 04:46 POC ABG Total CO2 25 05/21/17 04:46 POC ABG O2 Sat 97 05/21/17 04:46 PT/INR, D-dimer PT 19.7 Sec. (12.2-14.9) H 05/21/17 13:00 INR 1.59 (0.87-1.13) H 05/21/17 13:00 D-Dimer 8441.57 ng/mlDDU (0-234) H 05/04/17 Unknown Abnormal lab findings: Abnormal Labs 05/04/17 05/04/17 05/04/17 02:20 18:39 18:39 WBC 24.3 H RBC Hgb Hct RDW 16.4 H Plt Count 658 H Seg Neuts % (Manual) 94.5 H Lymphocytes % (Manual) 2.5 L Monocytes % (Manual) Nucleated RBC % Seg Neutrophils # Man 23.0 H Lymphocytes # (Manual) 0.6 L Monocytes # (Manual) Eosinophils # (Manual) PT INR APTT D-Dimer POC ABG pH POC ABG pCO2 POC ABG pO2 Sodium Potassium 3.2 L Chloride 92.6 L Carbon Dioxide 14 L BUN 66 H Creatinine 6.5 H Glucose POC Glucose Lactic Acid Calcium 7.5 L Ionized Calcium Phosphorus Magnesium ALT 5 L Alkaline Phosphatase 32 L Total Creatine Kinase CK-MB (CK-2) Troponin T C-Reactive Protein Total Protein 5.4 L Albumin 3.0 L Urine WBC (Auto) 100.0 H Urine Creatinine Salicylates Miscellaneous Test Crossmatch 05/04/17 05/04/17 05/04/17 18:39 18:55 Unknown WBC RBC Hgb Hct RDW Plt Count Seg Neuts % (Manual) Lymphocytes % (Manual) Monocytes % (Manual) Nucleated RBC % Seg Neutrophils # Man Lymphocytes # (Manual) Monocytes # (Manual) Eosinophils # (Manual) PT INR APTT D-Dimer POC ABG pH POC ABG pCO2 POC ABG pO2 Sodium Potassium Chloride Carbon Dioxide BUN Creatinine Glucose POC Glucose Lactic Acid 0.40 L Calcium Ionized Calcium Phosphorus Magnesium ALT Alkaline Phosphatase Total Creatine Kinase 155 H CK-MB (CK-2) 4.5 H Troponin T 0.033 H C-Reactive Protein Total Protein Albumin Urine WBC (Auto) Urine Creatinine Salicylates 0.3 L Miscellaneous Test Crossmatch 05/04/17 05/04/17 05/04/17 Unknown Unknown Unknown WBC RBC Hgb Hct RDW Plt Count Seg Neuts % (Manual) Lymphocytes % (Manual) Monocytes % (Manual) Nucleated RBC % Seg Neutrophils # Man Lymphocytes # (Manual) Monocytes # (Manual) Eosinophils # (Manual) PT INR APTT D-Dimer 8441.57 H POC ABG pH POC ABG pCO2 POC ABG pO2 Sodium Potassium Chloride Carbon Dioxide BUN Creatinine Glucose POC Glucose Lactic Acid 0.40 L Calcium Ionized Calcium Phosphorus Magnesium ALT Alkaline Phosphatase Total Creatine Kinase 246 H CK-MB (CK-2) 6.2 H Troponin T C-Reactive Protein Total Protein Albumin Urine WBC (Auto) Urine Creatinine Salicylates Miscellaneous Test Crossmatch 05/05/17 05/05/17 05/05/17 05:20 05:20 05:20 WBC 33.9 H RBC 3.39 L Hgb 9.3 L Hct RDW 16.7 H Plt Count 712 H Seg Neuts % (Manual) 91.0 H Lymphocytes % (Manual) 1.0 L Monocytes % (Manual) Nucleated RBC % Seg Neutrophils # Man 30.8 H Lymphocytes # (Manual) 0.3 L Monocytes # (Manual) 1.5 H Eosinophils # (Manual) PT INR APTT D-Dimer POC ABG pH POC ABG pCO2 POC ABG pO2 Sodium Potassium Chloride Carbon Dioxide 9 L* BUN 53 H Creatinine 5.4 H Glucose POC Glucose Lactic Acid Calcium 6.1 L D Ionized Calcium Phosphorus Magnesium ALT Alkaline Phosphatase Total Creatine Kinase 346 H CK-MB (CK-2) 8.2 H Troponin T C-Reactive Protein Total Protein Albumin Urine WBC (Auto) Urine Creatinine Salicylates Miscellaneous Test Crossmatch 05/05/17 05/05/17 05/05/17 10:43 17:45 17:45 WBC RBC Hgb 8.8 L Hct RDW Plt Count Seg Neuts % (Manual) Lymphocytes % (Manual) Monocytes % (Manual) Nucleated RBC % Seg Neutrophils # Man Lymphocytes # (Manual) Monocytes # (Manual) Eosinophils # (Manual) PT INR APTT D-Dimer POC ABG pH 6.872 L POC ABG pCO2 POC ABG pO2 120 H Sodium Potassium Chloride Carbon Dioxide BUN Creatinine Glucose POC Glucose Lactic Acid Calcium Ionized Calcium 3.5 L Phosphorus Magnesium ALT Alkaline Phosphatase Total Creatine Kinase CK-MB (CK-2) Troponin T C-Reactive Protein Total Protein Albumin Urine WBC (Auto) Urine Creatinine Salicylates Miscellaneous Test Crossmatch 05/05/17 05/05/17 05/05/17 17:45 20:58 Unknown WBC RBC Hgb 9.0 L Hct 29.8 L RDW Plt Count Seg Neuts % (Manual) Lymphocytes % (Manual) Monocytes % (Manual) Nucleated RBC % Seg Neutrophils # Man Lymphocytes # (Manual) Monocytes # (Manual) Eosinophils # (Manual) PT INR APTT D-Dimer POC ABG pH POC ABG pCO2 POC ABG pO2 Sodium Potassium Chloride Carbon Dioxide BUN Creatinine Glucose POC Glucose Lactic Acid Calcium Ionized Calcium Phosphorus 6.20 H Magnesium 1.20 L ALT Alkaline Phosphatase Total Creatine Kinase CK-MB (CK-2) Troponin T C-Reactive Protein Total Protein Albumin Urine WBC (Auto) Urine Creatinine 28.0 H Salicylates Miscellaneous Test Crossmatch 05/06/17 05/06/17 05/06/17 05:09 05:23 07:55 WBC RBC Hgb Hct RDW Plt Count Seg Neuts % (Manual) Lymphocytes % (Manual) Monocytes % (Manual) Nucleated RBC % Seg Neutrophils # Man Lymphocytes # (Manual) Monocytes # (Manual) Eosinophils # (Manual) PT INR APTT D-Dimer POC ABG pH 7.029 L 7.060 L POC ABG pCO2 54.8 H 48.6 H POC ABG pO2 74 L 43 L Sodium Potassium 3.5 L Chloride Carbon Dioxide 18 L D BUN 44 H Creatinine 3.5 H Glucose 252 H POC Glucose Lactic Acid Calcium 5.8 L* Ionized Calcium Phosphorus Magnesium ALT Alkaline Phosphatase Total Creatine Kinase CK-MB (CK-2) Troponin T C-Reactive Protein Total Protein Albumin Urine WBC (Auto) Urine Creatinine Salicylates Miscellaneous Test Crossmatch 05/06/17 05/06/17 05/06/17 07:55 15:28 17:30 WBC RBC Hgb Hct RDW Plt Count Seg Neuts % (Manual) Lymphocytes % (Manual) Monocytes % (Manual) Nucleated RBC % Seg Neutrophils # Man Lymphocytes # (Manual) Monocytes # (Manual) Eosinophils # (Manual) PT INR APTT D-Dimer POC ABG pH 7.066 L POC ABG pCO2 80.9 H POC ABG pO2 65 L Sodium Potassium Chloride Carbon Dioxide BUN Creatinine Glucose POC Glucose Lactic Acid Calcium Ionized Calcium Phosphorus Magnesium ALT Alkaline Phosphatase Total Creatine Kinase CK-MB (CK-2) Troponin T C-Reactive Protein 14.50 H Total Protein Albumin Urine WBC (Auto) Urine Creatinine Salicylates Miscellaneous Test Flexitest 1 H Crossmatch 05/06/17 05/06/17 05/07/17 17:30 Unknown 10:18 WBC 39.2 H 32.9 H RBC 3.27 L Hgb 9.3 L Hct 30.2 L RDW 16.4 H 17.0 H Plt Count 645 H 467 H Seg Neuts % (Manual) Lymphocytes % (Manual) 11.0 L Monocytes % (Manual) Nucleated RBC % Seg Neutrophils # Man 21.2 H Lymphocytes # (Manual) Monocytes # (Manual) 2.0 H Eosinophils # (Manual) PT INR APTT D-Dimer POC ABG pH POC ABG pCO2 POC ABG pO2 Sodium Potassium 3.4 L Chloride Carbon Dioxide BUN 41 H Creatinine 3.2 H Glucose 265 H POC Glucose Lactic Acid Calcium 6.7 L D Ionized Calcium Phosphorus Magnesium ALT Alkaline Phosphatase Total Creatine Kinase CK-MB (CK-2) Troponin T C-Reactive Protein Total Protein Albumin Urine WBC (Auto) Urine Creatinine Salicylates Miscellaneous Test Crossmatch 05/07/17 05/07/17 05/08/17 11:32 12:36 05:45 WBC 31.1 H RBC 3.41 L Hgb 9.8 L Hct RDW 16.9 H Plt Count Seg Neuts % (Manual) 96.0 H Lymphocytes % (Manual) 1.0 L Monocytes % (Manual) Nucleated RBC % Seg Neutrophils # Man 29.9 H Lymphocytes # (Manual) 0.3 L Monocytes # (Manual) Eosinophils # (Manual) PT INR APTT D-Dimer POC ABG pH 7.290 L POC ABG pCO2 48.3 H POC ABG pO2 51 L Sodium 146 H Potassium 3.1 L Chloride 109.2 H Carbon Dioxide 20 L BUN 38 H Creatinine 2.7 H Glucose 213 H POC Glucose Lactic Acid Calcium 6.6 L Ionized Calcium Phosphorus Magnesium ALT Alkaline Phosphatase Total Creatine Kinase CK-MB (CK-2) Troponin T C-Reactive Protein Total Protein Albumin Urine WBC (Auto) Urine Creatinine Salicylates Miscellaneous Test Crossmatch 05/08/17 05/08/17 05/09/17 05:45 18:55 04:05 WBC 26.1 H RBC Hgb Hct RDW 17.6 H Plt Count Seg Neuts % (Manual) Lymphocytes % (Manual) 5.0 L Monocytes % (Manual) Nucleated RBC % Seg Neutrophils # Man 16.7 H Lymphocytes # (Manual) Monocytes # (Manual) Eosinophils # (Manual) PT INR APTT D-Dimer POC ABG pH POC ABG pCO2 POC ABG pO2 Sodium 150 H Potassium Chloride 115.4 H 112.2 H Carbon Dioxide 20 L 18 L BUN 39 H 45 H Creatinine 2.4 H 2.3 H Glucose 160 H 219 H POC Glucose Lactic Acid Calcium 6.6 L 7.2 L Ionized Calcium Phosphorus Magnesium 1.40 L ALT 6 L Alkaline Phosphatase Total Creatine Kinase CK-MB (CK-2) Troponin T C-Reactive Protein Total Protein 4.1 L D Albumin 2.0 L Urine WBC (Auto) Urine Creatinine Salicylates Miscellaneous Test Crossmatch 05/09/17 05/09/17 05/09/17 04:05 05:15 05:45 WBC RBC Hgb Hct RDW Plt Count Seg Neuts % (Manual) Lymphocytes % (Manual) Monocytes % (Manual) Nucleated RBC % Seg Neutrophils # Man Lymphocytes # (Manual) Monocytes # (Manual) Eosinophils # (Manual) PT INR APTT D-Dimer POC ABG pH POC ABG pCO2 POC ABG pO2 Sodium 130 L D Potassium 3.4 L D Chloride 94.6 L Carbon Dioxide 19 L BUN 39 H Creatinine 2.1 H Glucose 549 H* 189 H POC Glucose 181 H Lactic Acid Calcium 6.6 L Ionized Calcium Phosphorus Magnesium ALT 6 L Alkaline Phosphatase 31 L Total Creatine Kinase CK-MB (CK-2) Troponin T C-Reactive Protein Total Protein 3.5 L Albumin 2.0 L Urine WBC (Auto) Urine Creatinine Salicylates Miscellaneous Test Crossmatch 05/09/17 05/09/17 05/09/17 08:03 11:08 16:15 WBC RBC Hgb Hct RDW Plt Count Seg Neuts % (Manual) Lymphocytes % (Manual) Monocytes % (Manual) Nucleated RBC % Seg Neutrophils # Man Lymphocytes # (Manual) Monocytes # (Manual) Eosinophils # (Manual) PT INR APTT D-Dimer POC ABG pH POC ABG pCO2 POC ABG pO2 Sodium Potassium Chloride 107.8 H Carbon Dioxide 21 L BUN 43 H Creatinine 2.4 H Glucose 195 H POC Glucose 299 H 111 H Lactic Acid Calcium 7.1 L Ionized Calcium Phosphorus Magnesium ALT Alkaline Phosphatase Total Creatine Kinase CK-MB (CK-2) Troponin T C-Reactive Protein Total Protein 3.9 L Albumin 2.3 L Urine WBC (Auto) Urine Creatinine Salicylates Miscellaneous Test Crossmatch 05/09/17 05/10/17 05/10/17 23:05 05:00 05:00 WBC 20.9 H RBC 3.53 L Hgb Hct RDW 17.3 H Plt Count Seg Neuts % (Manual) 72.0 H Lymphocytes % (Manual) 8.0 L Monocytes % (Manual) Nucleated RBC % Seg Neutrophils # Man 15.0 H Lymphocytes # (Manual) Monocytes # (Manual) Eosinophils # (Manual) PT INR APTT D-Dimer POC ABG pH POC ABG pCO2 POC ABG pO2 Sodium 135 L D Potassium 3.2 L Chloride Carbon Dioxide 21 L BUN 45 H Creatinine 2.2 H Glucose 308 H POC Glucose 336 H Lactic Acid Calcium 7.1 L Ionized Calcium Phosphorus Magnesium ALT 5 L Alkaline Phosphatase 30 L Total Creatine Kinase CK-MB (CK-2) Troponin T C-Reactive Protein Total Protein 3.8 L Albumin 2.1 L Urine WBC (Auto) Urine Creatinine Salicylates Miscellaneous Test Crossmatch 05/10/17 05/10/17 05/10/17 07:28 11:36 16:03 WBC RBC Hgb Hct RDW Plt Count Seg Neuts % (Manual) Lymphocytes % (Manual) Monocytes % (Manual) Nucleated RBC % Seg Neutrophils # Man Lymphocytes # (Manual) Monocytes # (Manual) Eosinophils # (Manual) PT INR APTT D-Dimer POC ABG pH POC ABG pCO2 POC ABG pO2 Sodium Potassium Chloride Carbon Dioxide BUN Creatinine Glucose POC Glucose 154 H 184 H 162 H Lactic Acid Calcium Ionized Calcium Phosphorus Magnesium ALT Alkaline Phosphatase Total Creatine Kinase CK-MB (CK-2) Troponin T C-Reactive Protein Total Protein Albumin Urine WBC (Auto) Urine Creatinine Salicylates Miscellaneous Test Crossmatch 05/10/17 05/11/17 05/11/17 21:13 06:50 06:50 WBC 24.4 H RBC Hgb Hct RDW 17.4 H Plt Count Seg Neuts % (Manual) Lymphocytes % (Manual) 5.0 L Monocytes % (Manual) Nucleated RBC % Seg Neutrophils # Man 16.3 H Lymphocytes # (Manual) Monocytes # (Manual) 1.0 H Eosinophils # (Manual) PT INR APTT D-Dimer POC ABG pH POC ABG pCO2 POC ABG pO2 Sodium Potassium 3.4 L Chloride Carbon Dioxide BUN 50 H Creatinine 2.8 H Glucose 131 H POC Glucose 188 H Lactic Acid Calcium 7.6 L Ionized Calcium Phosphorus Magnesium ALT < 5 L Alkaline Phosphatase 25 L Total Creatine Kinase CK-MB (CK-2) Troponin T C-Reactive Protein Total Protein 3.6 L Albumin 2.0 L Urine WBC (Auto) Urine Creatinine Salicylates Miscellaneous Test Crossmatch 05/11/17 05/11/17 05/11/17 09:33 11:45 15:46 WBC RBC Hgb Hct RDW Plt Count Seg Neuts % (Manual) Lymphocytes % (Manual) Monocytes % (Manual) Nucleated RBC % Seg Neutrophils # Man Lymphocytes # (Manual) Monocytes # (Manual) Eosinophils # (Manual) PT INR APTT D-Dimer POC ABG pH POC ABG pCO2 POC ABG pO2 Sodium Potassium Chloride Carbon Dioxide BUN Creatinine Glucose POC Glucose 140 H 157 H 137 H Lactic Acid Calcium Ionized Calcium Phosphorus Magnesium ALT Alkaline Phosphatase Total Creatine Kinase CK-MB (CK-2) Troponin T C-Reactive Protein Total Protein Albumin Urine WBC (Auto) Urine Creatinine Salicylates Miscellaneous Test Crossmatch 05/11/17 05/11/17 05/12/17 17:50 20:58 05:00 WBC 23.1 H RBC 3.59 L Hgb Hct RDW 17.1 H Plt Count Seg Neuts % (Manual) 94.0 H Lymphocytes % (Manual) 0 L Monocytes % (Manual) Nucleated RBC % Seg Neutrophils # Man 21.7 H Lymphocytes # (Manual) 0.0 L Monocytes # (Manual) Eosinophils # (Manual) PT INR APTT D-Dimer POC ABG pH POC ABG pCO2 POC ABG pO2 Sodium Potassium Chloride Carbon Dioxide BUN Creatinine Glucose POC Glucose 155 H Lactic Acid Calcium Ionized Calcium Phosphorus Magnesium ALT Alkaline Phosphatase Total Creatine Kinase CK-MB (CK-2) Troponin T C-Reactive Protein Total Protein Albumin Urine WBC (Auto) 27.0 H Urine Creatinine Salicylates Miscellaneous Test Crossmatch 05/12/17 05/12/17 05/12/17 05:00 08:28 11:28 WBC RBC Hgb Hct RDW Plt Count Seg Neuts % (Manual) Lymphocytes % (Manual) Monocytes % (Manual) Nucleated RBC % Seg Neutrophils # Man Lymphocytes # (Manual) Monocytes # (Manual) Eosinophils # (Manual) PT INR APTT D-Dimer POC ABG pH POC ABG pCO2 POC ABG pO2 Sodium Potassium Chloride 111.7 H Carbon Dioxide BUN 53 H Creatinine 2.8 H Glucose 102 H POC Glucose 130 H 171 H Lactic Acid Calcium 6.9 L Ionized Calcium Phosphorus Magnesium ALT < 5 L Alkaline Phosphatase 25 L Total Creatine Kinase CK-MB (CK-2) Troponin T C-Reactive Protein Total Protein 3.3 L Albumin 1.7 L Urine WBC (Auto) Urine Creatinine Salicylates Miscellaneous Test Crossmatch 05/12/17 05/13/17 05/13/17 22:20 06:54 06:54 WBC 20.8 H RBC 3.17 L Hgb 9.2 L Hct 28.9 L RDW 17.7 H Plt Count Seg Neuts % (Manual) 93.0 H Lymphocytes % (Manual) 1.0 L Monocytes % (Manual) Nucleated RBC % Seg Neutrophils # Man 19.3 H Lymphocytes # (Manual) 0.2 L Monocytes # (Manual) Eosinophils # (Manual) 0.6 H PT INR APTT D-Dimer POC ABG pH POC ABG pCO2 POC ABG pO2 Sodium Potassium 3.3 L Chloride 110.0 H Carbon Dioxide 20 L BUN 48 H Creatinine 2.8 H Glucose 119 H POC Glucose 179 H Lactic Acid Calcium 7.4 L Ionized Calcium Phosphorus Magnesium ALT Alkaline Phosphatase Total Creatine Kinase CK-MB (CK-2) Troponin T C-Reactive Protein Total Protein Albumin Urine WBC (Auto) Urine Creatinine Salicylates Miscellaneous Test Crossmatch 05/13/17 05/13/17 05/13/17 07:35 12:52 23:32 WBC RBC Hgb Hct RDW Plt Count Seg Neuts % (Manual) Lymphocytes % (Manual) Monocytes % (Manual) Nucleated RBC % Seg Neutrophils # Man Lymphocytes # (Manual) Monocytes # (Manual) Eosinophils # (Manual) PT INR APTT D-Dimer POC ABG pH POC ABG pCO2 POC ABG pO2 Sodium Potassium Chloride Carbon Dioxide BUN Creatinine Glucose POC Glucose 139 H 159 H 179 H Lactic Acid Calcium Ionized Calcium Phosphorus Magnesium ALT Alkaline Phosphatase Total Creatine Kinase CK-MB (CK-2) Troponin T C-Reactive Protein Total Protein Albumin Urine WBC (Auto) Urine Creatinine Salicylates Miscellaneous Test Crossmatch 05/14/17 05/14/17 05/14/17 04:00 05:00 07:30 WBC 19.3 H RBC 3.16 L Hgb 9.1 L Hct 29.1 L RDW 17.9 H Plt Count Seg Neuts % (Manual) 87.0 H Lymphocytes % (Manual) 2.0 L Monocytes % (Manual) Nucleated RBC % Seg Neutrophils # Man 16.8 H Lymphocytes # (Manual) 0.4 L Monocytes # (Manual) 1.0 H Eosinophils # (Manual) 0.6 H PT INR APTT D-Dimer POC ABG pH POC ABG pCO2 POC ABG pO2 Sodium 146 H Potassium Chloride 114.7 H Carbon Dioxide 19 L BUN 43 H Creatinine 2.5 H Glucose POC Glucose 110 H Lactic Acid Calcium 7.5 L Ionized Calcium Phosphorus Magnesium ALT Alkaline Phosphatase Total Creatine Kinase CK-MB (CK-2) Troponin T C-Reactive Protein Total Protein Albumin Urine WBC (Auto) Urine Creatinine Salicylates Miscellaneous Test Crossmatch 05/14/17 05/14/17 05/14/17 11:43 15:44 20:10 WBC RBC Hgb Hct RDW Plt Count Seg Neuts % (Manual) Lymphocytes % (Manual) Monocytes % (Manual) Nucleated RBC % Seg Neutrophils # Man Lymphocytes # (Manual) Monocytes # (Manual) Eosinophils # (Manual) PT INR APTT D-Dimer POC ABG pH POC ABG pCO2 POC ABG pO2 Sodium Potassium Chloride Carbon Dioxide BUN Creatinine Glucose POC Glucose 169 H 201 H 223 H Lactic Acid Calcium Ionized Calcium Phosphorus Magnesium ALT Alkaline Phosphatase Total Creatine Kinase CK-MB (CK-2) Troponin T C-Reactive Protein Total Protein Albumin Urine WBC (Auto) Urine Creatinine Salicylates Miscellaneous Test Crossmatch 05/15/17 05/15/17 05/15/17 06:10 08:50 12:57 WBC RBC Hgb Hct RDW Plt Count Seg Neuts % (Manual) Lymphocytes % (Manual) Monocytes % (Manual) Nucleated RBC % Seg Neutrophils # Man Lymphocytes # (Manual) Monocytes # (Manual) Eosinophils # (Manual) PT INR APTT D-Dimer POC ABG pH POC ABG pCO2 POC ABG pO2 Sodium Potassium Chloride 113.6 H Carbon Dioxide 18 L BUN 43 H Creatinine 2.7 H Glucose 123 H POC Glucose 204 H 127 H Lactic Acid Calcium 7.2 L Ionized Calcium Phosphorus Magnesium ALT Alkaline Phosphatase Total Creatine Kinase CK-MB (CK-2) Troponin T C-Reactive Protein Total Protein Albumin Urine WBC (Auto) Urine Creatinine Salicylates Miscellaneous Test Crossmatch 05/15/17 05/15/17 05/15/17 17:43 21:29 23:51 WBC RBC Hgb Hct RDW Plt Count Seg Neuts % (Manual) Lymphocytes % (Manual) Monocytes % (Manual) Nucleated RBC % Seg Neutrophils # Man Lymphocytes # (Manual) Monocytes # (Manual) Eosinophils # (Manual) PT INR APTT D-Dimer POC ABG pH 6.983 L POC ABG pCO2 67.5 H POC ABG pO2 Sodium Potassium Chloride Carbon Dioxide BUN Creatinine Glucose POC Glucose 121 H 129 H Lactic Acid Calcium Ionized Calcium Phosphorus Magnesium ALT Alkaline Phosphatase Total Creatine Kinase CK-MB (CK-2) Troponin T C-Reactive Protein Total Protein Albumin Urine WBC (Auto) Urine Creatinine Salicylates Miscellaneous Test Crossmatch 05/16/17 05/16/17 05/16/17 00:15 06:00 07:46 WBC RBC Hgb Hct RDW Plt Count Seg Neuts % (Manual) Lymphocytes % (Manual) Monocytes % (Manual) Nucleated RBC % Seg Neutrophils # Man Lymphocytes # (Manual) Monocytes # (Manual) Eosinophils # (Manual) PT INR APTT D-Dimer POC ABG pH POC ABG pCO2 POC ABG pO2 Sodium Potassium Chloride 114.2 H Carbon Dioxide 17 L BUN 44 H Creatinine 3.3 H Glucose 118 H POC Glucose 135 H Lactic Acid 0.60 L Calcium 7.5 L Ionized Calcium Phosphorus Magnesium ALT Alkaline Phosphatase Total Creatine Kinase CK-MB (CK-2) Troponin T C-Reactive Protein Total Protein Albumin Urine WBC (Auto) Urine Creatinine Salicylates Miscellaneous Test Crossmatch 05/16/17 05/16/17 05/16/17 09:38 10:20 10:20 WBC 18.6 H RBC 3.08 L Hgb 9.0 L Hct 29.0 L RDW 18.8 H Plt Count Seg Neuts % (Manual) Lymphocytes % (Manual) 5.0 L Monocytes % (Manual) Nucleated RBC % Seg Neutrophils # Man 11.3 H Lymphocytes # (Manual) 0.9 L Monocytes # (Manual) 1.3 H Eosinophils # (Manual) PT INR APTT D-Dimer POC ABG pH 7.081 L POC ABG pCO2 46.3 H POC ABG pO2 107 H Sodium Potassium Chloride 114.9 H Carbon Dioxide 14 L BUN 44 H Creatinine 3.0 H Glucose 115 H POC Glucose Lactic Acid Calcium 7.3 L Ionized Calcium Phosphorus 5.40 H Magnesium ALT < 5 L Alkaline Phosphatase 17 L Total Creatine Kinase CK-MB (CK-2) Troponin T C-Reactive Protein Total Protein 4.2 L D Albumin 2.9 L Urine WBC (Auto) Urine Creatinine Salicylates Miscellaneous Test Crossmatch 05/17/17 05/17/17 05/17/17 03:44 04:00 05:00 WBC 21.9 H RBC 2.89 L Hgb 8.3 L Hct 26.4 L RDW 18.2 H Plt Count Seg Neuts % (Manual) Lymphocytes % (Manual) 7.0 L Monocytes % (Manual) Nucleated RBC % Seg Neutrophils # Man 15.3 H Lymphocytes # (Manual) Monocytes # (Manual) 1.5 H Eosinophils # (Manual) PT INR APTT D-Dimer POC ABG pH 7.199 L POC ABG pCO2 POC ABG pO2 107 H Sodium Potassium Chloride 111.7 H Carbon Dioxide 16 L BUN 43 H Creatinine 3.4 H Glucose POC Glucose Lactic Acid Calcium 7.3 L Ionized Calcium Phosphorus Magnesium ALT Alkaline Phosphatase Total Creatine Kinase CK-MB (CK-2) Troponin T C-Reactive Protein Total Protein Albumin Urine WBC (Auto) Urine Creatinine Salicylates Miscellaneous Test Crossmatch 05/17/17 05/17/17 05/18/17 05:00 12:20 04:43 WBC RBC Hgb Hct RDW Plt Count Seg Neuts % (Manual) Lymphocytes % (Manual) Monocytes % (Manual) Nucleated RBC % Seg Neutrophils # Man Lymphocytes # (Manual) Monocytes # (Manual) Eosinophils # (Manual) PT INR APTT D-Dimer POC ABG pH 7.251 L POC ABG pCO2 POC ABG pO2 126 H Sodium Potassium Chloride Carbon Dioxide BUN Creatinine Glucose POC Glucose Lactic Acid Calcium Ionized Calcium Phosphorus Magnesium ALT Alkaline Phosphatase Total Creatine Kinase CK-MB (CK-2) Troponin T C-Reactive Protein 2.30 H Total Protein Albumin Urine WBC (Auto) Urine Creatinine Salicylates Miscellaneous Test Flexitest 1 H Crossmatch 05/18/17 05/18/17 05/18/17 14:46 21:30 Unknown WBC RBC Hgb Hct RDW Plt Count Seg Neuts % (Manual) Lymphocytes % (Manual) Monocytes % (Manual) Nucleated RBC % Seg Neutrophils # Man Lymphocytes # (Manual) Monocytes # (Manual) Eosinophils # (Manual) PT INR APTT D-Dimer POC ABG pH 7.227 L POC ABG pCO2 POC ABG pO2 126 H Sodium Potassium 3.2 L Chloride 108.9 H Carbon Dioxide 19 L BUN 44 H Creatinine 3.6 H Glucose POC Glucose 206 H Lactic Acid Calcium 7.3 L Ionized Calcium Phosphorus Magnesium ALT Alkaline Phosphatase Total Creatine Kinase CK-MB (CK-2) Troponin T C-Reactive Protein Total Protein Albumin Urine WBC (Auto) Urine Creatinine Salicylates Miscellaneous Test Crossmatch 05/18/17 05/19/17 05/19/17 Unknown 05:26 06:00 WBC 25.2 H RBC 2.76 L Hgb 8.0 L Hct 24.9 L RDW 17.7 H Plt Count Seg Neuts % (Manual) 86.0 H Lymphocytes % (Manual) 1.0 L Monocytes % (Manual) Nucleated RBC % Seg Neutrophils # Man 21.7 H Lymphocytes # (Manual) 0.3 L Monocytes # (Manual) 1.5 H Eosinophils # (Manual) PT INR APTT D-Dimer POC ABG pH 7.216 L POC ABG pCO2 47.0 H POC ABG pO2 Sodium Potassium Chloride Carbon Dioxide BUN Creatinine Glucose POC Glucose 173 H Lactic Acid Calcium Ionized Calcium Phosphorus Magnesium ALT Alkaline Phosphatase Total Creatine Kinase CK-MB (CK-2) Troponin T C-Reactive Protein Total Protein Albumin Urine WBC (Auto) Urine Creatinine Salicylates Miscellaneous Test Crossmatch 05/19/17 05/19/17 05/19/17 11:47 18:04 23:54 WBC RBC Hgb Hct RDW Plt Count Seg Neuts % (Manual) Lymphocytes % (Manual) Monocytes % (Manual) Nucleated RBC % Seg Neutrophils # Man Lymphocytes # (Manual) Monocytes # (Manual) Eosinophils # (Manual) PT INR APTT D-Dimer POC ABG pH POC ABG pCO2 POC ABG pO2 Sodium Potassium Chloride Carbon Dioxide BUN Creatinine Glucose POC Glucose 203 H 178 H Lactic Acid Calcium Ionized Calcium Phosphorus Magnesium ALT Alkaline Phosphatase Total Creatine Kinase CK-MB (CK-2) Troponin T C-Reactive Protein Total Protein Albumin Urine WBC (Auto) 78.0 H Urine Creatinine Salicylates Miscellaneous Test Crossmatch 05/19/17 05/19/17 05/20/17 Unknown Unknown 05:03 WBC 36.5 H RBC 2.71 L Hgb 7.7 L Hct 24.3 L RDW 18.3 H Plt Count Seg Neuts % (Manual) 79.0 H Lymphocytes % (Manual) 3.0 L Monocytes % (Manual) Nucleated RBC % Seg Neutrophils # Man 28.8 H Lymphocytes # (Manual) 1.1 L Monocytes # (Manual) 2.6 H Eosinophils # (Manual) PT INR APTT D-Dimer POC ABG pH 7.322 L POC ABG pCO2 46.3 H POC ABG pO2 160 H Sodium Potassium 3.5 L Chloride 108.1 H Carbon Dioxide 20 L BUN 36 H Creatinine 3.1 H Glucose 165 H POC Glucose Lactic Acid Calcium 7.7 L Ionized Calcium Phosphorus Magnesium ALT Alkaline Phosphatase Total Creatine Kinase CK-MB (CK-2) Troponin T C-Reactive Protein Total Protein Albumin Urine WBC (Auto) Urine Creatinine Salicylates Miscellaneous Test Crossmatch 05/20/17 05/20/17 05/20/17 05:30 05:30 05:44 WBC 44.4 H* RBC 2.65 L Hgb 7.6 L Hct 23.7 L RDW 18.0 H Plt Count Seg Neuts % (Manual) Lymphocytes % (Manual) 7.0 L Monocytes % (Manual) 12.0 H Nucleated RBC % Seg Neutrophils # Man 22.2 H Lymphocytes # (Manual) Monocytes # (Manual) 5.3 H Eosinophils # (Manual) PT INR APTT D-Dimer POC ABG pH POC ABG pCO2 POC ABG pO2 Sodium Potassium 3.5 L Chloride Carbon Dioxide BUN 23 H Creatinine 2.1 H Glucose 167 H POC Glucose 182 H Lactic Acid Calcium 7.7 L Ionized Calcium Phosphorus Magnesium 1.40 L ALT Alkaline Phosphatase Total Creatine Kinase CK-MB (CK-2) Troponin T C-Reactive Protein Total Protein Albumin Urine WBC (Auto) Urine Creatinine Salicylates Miscellaneous Test Crossmatch 05/20/17 05/20/17 05/20/17 11:59 13:46 13:46 WBC RBC Hgb Hct RDW Plt Count Seg Neuts % (Manual) Lymphocytes % (Manual) Monocytes % (Manual) Nucleated RBC % Seg Neutrophils # Man Lymphocytes # (Manual) Monocytes # (Manual) Eosinophils # (Manual) PT 22.6 H INR 1.89 H APTT 44.6 H D-Dimer POC ABG pH POC ABG pCO2 POC ABG pO2 Sodium Potassium Chloride Carbon Dioxide BUN Creatinine Glucose POC Glucose 162 H Lactic Acid Calcium Ionized Calcium Phosphorus Magnesium ALT Alkaline Phosphatase Total Creatine Kinase CK-MB (CK-2) Troponin T C-Reactive Protein Total Protein Albumin Urine WBC (Auto) Urine Creatinine Salicylates Miscellaneous Test Crossmatch See Detail 05/20/17 05/20/17 05/20/17 17:36 20:00 20:44 WBC 38.3 H RBC 3.60 L Hgb Hct RDW 15.8 H Plt Count Seg Neuts % (Manual) Lymphocytes % (Manual) Monocytes % (Manual) Nucleated RBC % Seg Neutrophils # Man Lymphocytes # (Manual) Monocytes # (Manual) Eosinophils # (Manual) PT 21.4 H INR 1.76 H APTT 172.2 H* D-Dimer POC ABG pH POC ABG pCO2 POC ABG pO2 Sodium Potassium Chloride Carbon Dioxide BUN Creatinine Glucose POC Glucose 144 H Lactic Acid Calcium Ionized Calcium Phosphorus Magnesium ALT Alkaline Phosphatase Total Creatine Kinase CK-MB (CK-2) Troponin T C-Reactive Protein Total Protein Albumin Urine WBC (Auto) Urine Creatinine Salicylates Miscellaneous Test Crossmatch 05/20/17 05/20/17 05/21/17 22:20 23:37 05:20 WBC RBC Hgb Hct RDW Plt Count Seg Neuts % (Manual) Lymphocytes % (Manual) Monocytes % (Manual) Nucleated RBC % Seg Neutrophils # Man Lymphocytes # (Manual) Monocytes # (Manual) Eosinophils # (Manual) PT INR APTT 42.8 H D-Dimer POC ABG pH POC ABG pCO2 POC ABG pO2 Sodium Potassium 3.5 L Chloride Carbon Dioxide BUN Creatinine 1.5 H Glucose 106 H POC Glucose 113 H Lactic Acid Calcium 7.7 L Ionized Calcium Phosphorus Magnesium ALT Alkaline Phosphatase Total Creatine Kinase CK-MB (CK-2) Troponin T C-Reactive Protein Total Protein Albumin Urine WBC (Auto) Urine Creatinine Salicylates Miscellaneous Test Crossmatch 05/21/17 05/21/17 05/21/17 05:20 05:20 05:31 WBC 31.6 H RBC Hgb Hct RDW 15.8 H Plt Count Seg Neuts % (Manual) 90.0 H Lymphocytes % (Manual) 3.0 L Monocytes % (Manual) Nucleated RBC % Seg Neutrophils # Man 28.4 H Lymphocytes # (Manual) 0.9 L Monocytes # (Manual) Eosinophils # (Manual) 1.3 H PT 19.1 H INR 1.53 H APTT 37.9 H D-Dimer POC ABG pH POC ABG pCO2 POC ABG pO2 Sodium Potassium Chloride Carbon Dioxide BUN Creatinine Glucose POC Glucose 126 H Lactic Acid Calcium Ionized Calcium Phosphorus Magnesium ALT Alkaline Phosphatase Total Creatine Kinase CK-MB (CK-2) Troponin T C-Reactive Protein Total Protein Albumin Urine WBC (Auto) Urine Creatinine Salicylates Miscellaneous Test Crossmatch 05/21/17 05/21/17 05/21/17 13:00 13:00 13:00 WBC 32.9 H RBC 3.09 L Hgb 9.0 L Hct 27.6 L RDW 16.3 H Plt Count Seg Neuts % (Manual) 86.0 H Lymphocytes % (Manual) 2.0 L Monocytes % (Manual) Nucleated RBC % 2.0 H Seg Neutrophils # Man 28.3 H Lymphocytes # (Manual) 0.7 L Monocytes # (Manual) Eosinophils # (Manual) PT 19.7 H INR 1.59 H APTT 41.1 H D-Dimer POC ABG pH POC ABG pCO2 POC ABG pO2 Sodium Potassium 3.3 L Chloride 108.4 H Carbon Dioxide 20 L BUN Creatinine 1.4 H Glucose 119 H POC Glucose Lactic Acid Calcium 6.5 L D Ionized Calcium Phosphorus Magnesium ALT Alkaline Phosphatase 28 L Total Creatine Kinase CK-MB (CK-2) Troponin T C-Reactive Protein Total Protein 3.2 L Albumin 1.7 L Urine WBC (Auto) Urine Creatinine Salicylates Miscellaneous Test Crossmatch Chest x-ray: report reviewed, image reviewed
--- NOTE | 2017-05-21 17:13 | Progress Note ---
Assessment and Plan Assessment and plan: --Sinus tachycardia; secondary to underlying sepsis hypotension, supportive care --Worsening C. 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, Postoperative care, IV fluids, surgery following --Acute hypoxic respiratory failure; on vent,sedation, nebulizers, wean as tolerated and extubate, pulmonary --Hypokalemia : Replace per protocol monitor levels --Septic shock; on Levophed,monitor blood pressures --Severe sepsis; secondary to colitis, possible pneumonia, ID added meropenem --Acute kidney injury: worsening Creatinine , hemodialysis as needed per renal --UTI; s/p 3 days antibiotics per ID --Metabolic acidosis; hemodialysis as needed --COPD with exacerbation; on vent ,nebulizers and IV antibiotics --Severe hypoalbuminemia/protein calorie Malnutrition; nutritional supplements and supportive care --DVT prophylaxis; heparin renal dose --Full CODE STATUS Line of care discussed with the patient's family at the bedside as well as the nurse Closely monitor the patient and adjust management as needed 31 minutes critical care time The high probability of a clinically significant, sudden or life threatening deterioration of the [pulmonary ,GI,CV,ID and renal systems ] re and renalquired my full and direct attention, intervention and personal management. The aggregate critical care time was [31 ] minutes. 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, Maintenance intubated on ventilatory support On levo fed, tachycardic and in mild distress Vitals reviewed Hospitalist Physical - Constitutional Vitals: Temp Pulse Resp BP Pulse Ox 97.2 F L 131 H 22 99/59 99 05/21/17 16:35 05/21/17 16:35 05/21/17 16:35 05/21/17 16:35 05/21/17 16:35 General appearance: Present: mild distress, well-nourished, other (intubatd and vent supported) - EENT Eyes: Present: PERRL, EOM intact ENT: other (ET tube in place) - Neck Neck: Present: supple, normal ROM - Respiratory Respiratory effort: normal Respiratory: bilateral: diminished, rales, negative: rhonchi, wheezing - Cardiovascular Rhythm: regular Heart Sounds: Present: S1 & S2 (tachycardia) - Extremities Extremities: no ischemia Extremity abnormal: edema - Abdominal General gastrointestinal: soft, tender (postsurgical), non-distended, absent bowel sounds, other (surgical dressing in place, ostomy) - Integumentary Integumentary: Present: clear, warm - Psychiatric Psychiatric: other (intubated and sedated) - Neurologic Neurologic: other (intubated and sedated) Results - Labs CBC & Chem 7: 05/21/17 13:00 05/21/17 13:00 Labs: Laboratory Last Values WBC 32.9 K/mm3 (4.5-11.0) H 05/21/17 13:00 RBC 3.09 M/mm3 (3.65-5.03) L 05/21/17 13:00 Hgb 9.0 gm/dl (10.1-14.3) L 05/21/17 13:00 Hct 27.6 % (30.3-42.9) L 05/21/17 13:00 MCV 89 fl (79-97) 05/21/17 13:00 MCH 29 pg (28-32) 05/21/17 13:00 MCHC 33 % (30-34) 05/21/17 13:00 RDW 16.3 % (13.2-15.2) H 05/21/17 13:00 Plt Count 189 K/mm3 (140-440) 05/21/17 13:00 Add Manual Diff Complete 05/21/17 13:00 Total Counted 100 05/21/17 13:00 Seg Neutrophils % [employer] 05/21/17 13:00 Seg Neuts % (Manual) 86.0 % (40.0-70.0) H 05/21/17 13:00 Band Neutrophils % 9.0 % 05/21/17 13:00 Lymphocytes % (Manual) 2.0 % (13.4-35.0) L 05/21/17 13:00 Reactive Lymphs % (Man) 0 % 05/21/17 13:00 Monocytes % (Manual) 0 % (0.0-7.3) 05/21/17 13:00 Eosinophils % (Manual) 1.0 % (0.0-4.3) 05/21/17 13:00 Basophils % (Manual) 0 % (0.0-1.8) 05/21/17 13:00 Metamyelocytes % 2.0 % 05/21/17 13:00 Myelocytes % 0 % 05/21/17 13:00 Promyelocytes % 0 % 05/21/17 13:00 Blast Cells % 0 % 05/21/17 13:00 Nucleated RBC % 2.0 % (0.0-0.9) H 05/21/17 13:00 Seg Neutrophils # Man 28.3 K/mm3 (1.8-7.7) H 05/21/17 13:00 Band Neutrophils # 3.0 K/mm3 05/21/17 13:00 Lymphocytes # (Manual) 0.7 K/mm3 (1.2-5.4) L 05/21/17 13:00 Abs React Lymphs (Man) 0.0 K/mm3 05/21/17 13:00 Monocytes # (Manual) 0.0 K/mm3 (0.0-0.8) 05/21/17 13:00 Eosinophils # (Manual) 0.3 K/mm3 (0.0-0.4) 05/21/17 13:00 Basophils # (Manual) 0.0 K/mm3 (0.0-0.1) 05/21/17 13:00 Metamyelocytes # 0.7 K/mm3 05/21/17 13:00 Myelocytes # 0.0 K/mm3 05/21/17 13:00 Promyelocytes # 0.0 K/mm3 05/21/17 13:00 Blast Cells # 0.0 K/mm3 05/21/17 13:00 WBC Morphology Not Reportable 05/21/17 13:00 Hypersegmented Neuts Not Reportable 05/21/17 13:00 Hyposegmented Neuts Not Reportable 05/21/17 13:00 Hypogranular Neuts Not Reportable 05/21/17 13:00 Smudge Cells Not Reportable 05/21/17 13:00 Toxic Granulation Not Reportable 05/21/17 13:00 Toxic Vacuolation Not Reportable 05/21/17 13:00 Dohle Bodies Not Reportable 05/21/17 13:00 Pelger-Huet Anomaly Not Reportable 05/21/17 13:00 Neisha Rods Not Reportable 05/21/17 13:00 Platelet Estimate Appears normal 05/21/17 13:00 Clumped Platelets Not Reportable 05/21/17 13:00 Plt Clumps, EDTA Not Reportable 05/21/17 13:00 Large Platelets Not Reportable 05/21/17 13:00 Giant Platelets Not Reportable 05/21/17 13:00 Platelet Satelliting Not Reportable 05/21/17 13:00 Plt Morphology Comment Not Reportable 05/21/17 13:00 RBC Morphology Not Reportable 05/21/17 13:00 Dimorphic RBCs Not Reportable 05/21/17 13:00 Polychromasia 1+ 05/21/17 13:00 Hypochromasia Not Reportable 05/21/17 13:00 Poikilocytosis 1+ 05/21/17 13:00 Anisocytosis 2+ 05/21/17 13:00 Microcytosis Not Reportable 05/21/17 13:00 Macrocytosis Not Reportable 05/21/17 13:00 Spherocytes Not Reportable 05/21/17 13:00 Pappenheimer Bodies Not Reportable 05/21/17 13:00 Sickle Cells Not Reportable 05/21/17 13:00 Target Cells Rare 05/21/17 13:00 Tear Drop Cells Not Reportable 05/21/17 13:00 Ovalocytes 1+ 05/21/17 13:00 Stomatocytes Few 05/21/17 05:20 Helmet Cells Few 05/21/17 13:00 Frankel-Huxley Bodies Not Reportable 05/21/17 13:00 [place]rett Rings Not Reportable 05/21/17 13:00 Damián Cells Few 05/21/17 13:00 Bite Cells Not Reportable 05/21/17 13:00 Crenated Cell Not Reportable 05/21/17 13:00 Elliptocytes Few 05/21/17 13:00 Acanthocytes (Spur) Not Reportable 05/21/17 13:00 Rouleaux Not Reportable 05/21/17 13:00 Hemoglobin C Crystals Not Reportable 05/21/17 13:00 Schistocytes Not Reportable 05/21/17 13:00 Malaria parasites Not Reportable 05/21/17 13:00 Herve Bodies Not Reportable 05/21/17 13:00 Hem Pathologist Commnt No 05/21/17 13:00 PT 19.7 Sec. (12.2-14.9) H 05/21/17 13:00 INR 1.59 (0.87-1.13) H 05/21/17 13:00 APTT 41.1 Sec. (24.2-36.6) H 05/21/17 13:00 D-Dimer 8441.57 ng/mlDDU (0-234) H 05/04/17 Unknown POC ABG pH 7.369 (7.35-7.45) 05/21/17 04:46 POC ABG pCO2 42.0 (35-45) 05/21/17 04:46 POC ABG pO2 89 (80-105) 05/21/17 04:46 POC ABG HCO3 24.2 05/21/17 04:46 POC ABG Total CO2 25 05/21/17 04:46 POC ABG O2 Sat 97 05/21/17 04:46 POC ABG Base Excess -1 05/21/17 04:46 FiO2 30 % 05/21/17 04:46 Sodium 141 mmol/L (137-145) 05/21/17 13:00 Potassium 3.3 mmol/L (3.6-5.0) L 05/21/17 13:00 Chloride 108.4 mmol/L (98-107) H 05/21/17 13:00 Carbon Dioxide 20 mmol/L (22-30) L 05/21/17 13:00 Anion Gap 16 mmol/L 05/21/17 13:00 BUN 15 mg/dL (7-17) 05/21/17 13:00 Creatinine 1.4 mg/dL (0.7-1.2) H 05/21/17 13:00 Estimated GFR 46 ml/min 05/21/17 13:00 BUN/Creatinine Ratio 11 % 05/21/17 13:00 Glucose 119 mg/dL (65-100) H 05/21/17 13:00 POC Glucose 126 (70-105) H 05/21/17 05:31 Lactic Acid 0.60 mmol/L (0.7-2.0) L 05/16/17 00:15 Calcium 6.5 mg/dL (8.4-10.2) L D 05/21/17 13:00 Ionized Calcium 3.5 mg/dL (4.8-5.6) L 05/05/17 17:45 Phosphorus 5.40 mg/dL (2.5-4.5) H 05/16/17 10:20 Magnesium 1.40 mg/dL (1.7-2.3) L 05/20/17 05:30 Total Bilirubin 0.20 mg/dL (0.1-1.2) 05/21/17 13:00 AST 31 units/L (5-40) 05/21/17 13:00 ALT 13 units/L (7-56) 05/21/17 13:00 Alkaline Phosphatase 28 units/L (35-129) L 05/21/17 13:00 Total Creatine Kinase 346 units/L (30-135) H 05/05/17 05:20 CK-MB (CK-2) 8.2 ng/mL (0.0-4.0) H 05/05/17 05:20 CK-MB (CK-2) Rel Index 2.3 (0-4) 05/05/17 05:20 Troponin T 0.027 ng/mL (0.00-0.029) 05/05/17 05:20 C-Reactive Protein 2.30 mg/dL (0.00-1.30) H 05/17/17 05:00 Total Protein 3.2 g/dL (6.3-8.2) L 05/21/17 13:00 Albumin 1.7 g/dL (3.9-5) L 05/21/17 13:00 Albumin/Globulin Ratio 1.1 % 05/21/17 13:00 Triglycerides 149 mg/dL (2-149) 05/04/17 18:55 Cholesterol 185 mg/dL (50-199) 05/04/17 18:55 LDL Cholesterol Direct 103 mg/dL (50-130) 05/04/17 18:55 HDL Cholesterol 53 mg/dL (40-59) 05/04/17 18:55 Cholesterol/HDL Ratio 3.49 % 05/04/17 18:55 TSH 1.780 mlU/mL (0.270-4.200) 05/04/17 18:39 Urine Color Yellow (Yellow) 05/19/17 18:04 Urine Turbidity Clear (Clear) 05/19/17 18:04 Urine pH 5.0 (5.0-7.0) 05/19/17 18:04 Ur Specific [place] 1.014 (1.003-1.030) 05/19/17 18:04 Urine Protein 30 mg/dl mg/dL (Negative) 05/19/17 18:04 Urine Glucose (UA) Neg mg/dL (Negative) 05/19/17 18:04 Urine Ketones Neg mg/dL (Negative) 05/19/17 18:04 Urine Blood Mod (Negative) 05/19/17 18:04 Urine Nitrite Neg (Negative) 05/19/17 18:04 Urine Bilirubin Neg (Negative) 05/19/17 18:04 Urine Urobilinogen < 2.0 mg/dL (<2.0) 05/19/17 18:04 Ur Leukocyte Esterase Lg (Negative) 05/19/17 18:04 Urine WBC (Auto) 78.0 /HPF (0.0-6.0) H 05/19/17 18:04 Urine RBC (Auto) 90.0 /HPF (0.0-6.0) 05/19/17 18:04 U Epithel Cells (Auto) < 1.0 /HPF (0-13.0) 05/19/17 18:04 Urine Bacteria (Auto) 2+ /HPF (Negative) 05/19/17 18:04 Amorphous Crystals Few 05/11/17 17:50 Hyaline Casts 3 /LPF 05/19/17 18:04 Granular Casts 1 /LPF 05/19/17 18:04 Urine Mucus Few /HPF 05/19/17 18:04 Ur Yeast w Hyphae Few /HPF 05/19/17 18:04 Urine Yeast (Budding) 3+ /HPF 05/19/17 18:04 Urine Creatinine 28.0 mg/dL (0.1-20.0) H 05/05/17 Unknown Urine Sodium 129 mmol/L 05/05/17 Unknown Urine Potassium 3.67 mmol/L 05/05/17 Unknown Urine Chloride 115.6 mmolL (110-250) 05/05/17 Unknown Salicylates 0.3 mg/dL (2.8-20.0) L 05/04/17 18:39 Urine Opiates Screen Presumptive negative 05/04/17 02:20 Urine Methadone Screen Presumptive negative 05/04/17 02:20 Acetaminophen < 15.0 ug/mL (10.0-30.0) 05/04/17 18:39 Ur Barbiturates Screen Presumptive negative 05/04/17 02:20 Ur Phencyclidine Scrn Presumptive negative 05/04/17 02:20 Ur Amphetamines Screen Presumptive negative 05/04/17 02:20 U Benzodiazepines Scrn Presumptive negative 05/04/17 02:20 Urine Cocaine Screen Presumptive negative 05/04/17 02:20 U Marijuana (THC) Screen Presumptive negative 05/04/17 02:20 Drugs of Abuse Note Disclamer 05/04/17 02:20 Plasma/Serum Alcohol < 0.01 gm% (0-0.07) 05/04/17 18:39 Hepatitis A IgM Ab Non-reactive (NonReactive) 05/20/17 17:49 Hep B Core IgM Ab Non-reactive (NonReactive) 05/20/17 17:49 Hepatitis C Antibody Non-reactive (NonReactive) 05/20/17 17:49 Miscellaneous Test Flexitest 1 H 05/17/17 12:20 Blood Type AB POSITIVE 05/20/17 13:46 Antibody Screen Negative 05/20/17 13:46 Crossmatch See Detail 05/20/17 13:46
[2017-05-21] MEDS: ATIVAN IV PRN (17:19)
[2017-05-21] MEDS: D5/0.45NS 1,000 ML IV SCH (17:27)
[2017-05-21] MEDS ORDERED: KCL 10MEQ/100ML 10 MEQ/100 ML BAG IV SCH (18:00)
[2017-05-21] MEDS ORDERED: KCL 40 MEQ in NACL 0.9% 500 ML 500 ML IV ONE (18:00)
[2017-05-21 21:24] LABS: Hematocrit 25.9 % (30.3-42.9); Hemoglobin 8.2 gm/dl (10.1-14.3); Mean Corpuscular HGB Conc 32 % (30-34); Mean Corpuscular Hemoglobin 29 pg (28-32); Mean Corpuscular Volume 91 fl (79-97); Platelet Count 187 K/mm3 (140-440); Red Blood Count 2.85 M/mm3 (3.65-5.03); Red Cell Distribution Width 16.3 % (13.2-15.2)
[2017-05-21 21:39] LABS: White Blood Count 42.4 K/mm3 (4.5-11.0)
[2017-05-21 22:51] LABS: Basophils % (Manual) 0 % (0.0-1.8); Blastocytes % (Manual) 0 %; Eosinophils % (Manual) 0 % (0.0-4.3)
[2017-05-21 22:53] LABS: Anisocytosis 1+
[2017-05-21 22:56] LABS: Polychromasia Few
[2017-05-21 22:57] LABS: Diff Status Complete; Platelet Estimate Consistent w Auto
[2017-05-22] MEDS: FLAGYL 500 MG/100 ML 500 MG/100 ML BAG IV SCH ×4 (05:52→18:16)
[2017-05-22] MEDS: LEVOPHED 8 MG in NACL 0.9% 250ML 242 ML IV SCH ×3 (05:54→20:32)
[2017-05-22 05:56] LABS: Hematocrit 24.1 % (30.3-42.9); Hemoglobin 7.8 gm/dl (10.1-14.3); Mean Corpuscular HGB Conc 33 % (30-34); Mean Corpuscular Hemoglobin 29 pg (28-32); Mean Corpuscular Volume 91 fl (79-97); Platelet Count 202 K/mm3 (140-440); Red Blood Count 2.65 M/mm3 (3.65-5.03); Red Cell Distribution Width 16.5 % (13.2-15.2)
[2017-05-22] MEDS: NOVOLOG SUB-Q SCH ×3 (05:56→18:17)
[2017-05-22 05:57] LABS: White Blood Count 41.8 K/mm3 (4.5-11.0)
[2017-05-22 05:57] LABS: ISTAT Base Excess -9; ISTAT HCO3 18.8; ISTAT PCO2 45.3 (35-45); ISTAT PH 7.225 (7.35-7.45); ISTAT PO2 102 (80-105); ISTAT SO2 96; ISTAT TCO2 20
[2017-05-22] MEDS: VANCOMYCIN PO PO SCH (05:57)
[2017-05-22] MEDS: FLORANEX PO SCH ×3 (05:57→14:00)
[2017-05-22 06:05] LABS: INR 1.75 (0.87-1.13)
[2017-05-22 06:06] LABS: Partial Thromboplastin Time 39.4 Sec. (24.2-36.6)
[2017-05-22 06:21] LABS: Alanine Aminotransferase 11 units/L (7-56); Albumin/Globulin Ratio 1.3 %; Alkaline Phosphatase 33 units/L (35-129); Anion Gap 19 mmol/L; BUN/Creatinine Ratio 9; Bilirubin,Total < 0.20 mg/dL (0.1-1.2); Blood Urea Nitrogen 17 mg/dL (7-17); Calcium 6.6 mg/dL (8.4-10.2); Carbon Dioxide 18 mmol/L (22-30); Chloride 109.4 mmol/L (98-107); Glucose 164 mg/dL (65-100); Potassium 4.3 mmol/L (3.6-5.0); Sodium 142 mmol/L (137-145); Total Protein 3.6 g/dL (6.3-8.2)
[2017-05-22 06:56] LABS: Basophils % (Manual) 0 % (0.0-1.8); Blastocytes % (Manual) 0 %; Eosinophils % (Manual) 0 % (0.0-4.3)
[2017-05-22 06:57] LABS: Anisocytosis 1+; Diff Status Complete; Elliptocytes Rare; Hypochromasia Few; Ovalocytes Few; Polychromasia Few
[2017-05-22] MEDS: D5/0.45NS 1,000 ML IV SCH (08:21)
[2017-05-22] MEDS: PULMICORT IH SCH ×2 (09:07→21:07)
[2017-05-22] MEDS: DUONEB *Not for PRN Use IH SCH ×3 (09:07→21:07)
[2017-05-22] MEDS: BROVANA NEBU IH SCH ×2 (09:07→21:08)
--- NOTE | 2017-05-22 09:09 | Progress Note ---
Assessment and Plan Assessment and plan: --Worsening C. 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, Postoperative care, IV fluids, surgery following --Septic shock; pressor dependent ,on Levophed,monitor blood pressures --Sinus tachycardia; secondary to underlying sepsis hypotension, significantly improved --Acute hypoxic respiratory failure; on vent,sedation, nebulizers, wean as tolerated and extubate, pulmonary --Hypokalemia : Replace per protocol monitor levels --Severe sepsis; secondary to colitis, possible pneumonia, ID added meropenem --Acute kidney injury: worsening Creatinine , hemodialysis as needed per renal --UTI; s/p 3 days antibiotics per ID --Metabolic acidosis; hemodialysis as needed --COPD with exacerbation; on vent ,nebulizers and IV antibiotics --Severe hypoalbuminemia/protein calorie Malnutrition; nutritional supplements and supportive care --DVT prophylaxis; heparin renal dose --Full CODE STATUS Line of care discussed with the patient's family at the bedside as well as the nurse Closely monitor the patient and adjust management as needed 32 minutes critical care time The high probability of a clinically significant, sudden or life threatening deterioration of the [pulmonary ,GI,CV,ID and renal systems ] re and renalquired my full and direct attention, intervention and personal management. The aggregate critical care time was [32 ] minutes. This time is in addition to time spent performing reported procedures but includes the following: [x] Data Review and interpretation [x] Patient assessment and monitoring of vital signs [x] Documentation, counseling [x] Medication orders and management History Interval history: Patient seen and examined in her to medical records reviewed No new events reported remains intubated on ventilatory support, pressor dependent Intubated and sedated, in mild distress Hospitalist Physical - Constitutional Vitals: Temp Pulse Resp BP Pulse Ox 98.9 F 107 H 111 H 97/55 100 05/22/17 03:34 05/22/17 09:07 05/22/17 09:07 05/22/17 09:01 05/22/17 09:01 General appearance: Present: mild distress, well-nourished, other (intubatd and vent supported) - EENT Eyes: Present: PERRL, EOM intact - Neck Neck: Present: supple, normal ROM - Respiratory Respiratory effort: normal Respiratory: bilateral: diminished, rhonchi, negative: rales, wheezing - Cardiovascular Rhythm: regular Heart Sounds: Present: S1 & S2 - Extremities Extremities: no ischemia, No edema Peripheral Pulses: within normal limits - Abdominal General gastrointestinal: soft, non-tender, non-distended, normal bowel sounds - Integumentary Integumentary: Present: clear, warm - Psychiatric Psychiatric: appropriate mood/affect, cooperative - Neurologic Neurologic: CNII-XII intact, moves all extremities Results - Labs CBC & Chem 7: 05/22/17 12:45 05/22/17 04:50 Labs: Laboratory Last Values WBC 41.8 K/mm3 (4.5-11.0) H* 05/22/17 04:50 RBC 2.65 M/mm3 (3.65-5.03) L 05/22/17 04:50 Hgb 7.8 gm/dl (10.1-14.3) L 05/22/17 04:50 Hct 24.1 % (30.3-42.9) L 05/22/17 04:50 MCV 91 fl (79-97) 05/22/17 04:50 MCH 29 pg (28-32) 05/22/17 04:50 MCHC 33 % (30-34) 05/22/17 04:50 RDW 16.5 % (13.2-15.2) H 05/22/17 04:50 Plt Count 202 K/mm3 (140-440) 05/22/17 04:50 [place] % (Auto) % (0.0-7.3) 05/22/17 04:50 Eos % (Auto) % (0.0-4.3) 05/22/17 04:50 [place]linger # K/mm3 (0.0-0.8) 05/22/17 04:50 Eos # K/mm3 (0.0-0.4) 05/22/17 04:50 Baso # 0.0 K/mm3 (0.0-0.1) 05/22/17 04:50 Add Manual Diff Complete 05/22/17 04:50 Total Counted 100 05/22/17 04:50 Seg Neutrophils % Load Checker 05/22/17 04:50 Seg Neuts % (Manual) 73.0 % (40.0-70.0) H 05/22/17 04:50 Band Neutrophils % 18.0 % 05/22/17 04:50 Lymphocytes % (Manual) 4.0 % (13.4-35.0) L 05/22/17 04:50 Reactive Lymphs % (Man) 0 % 05/22/17 04:50 Monocytes % (Manual) 3.0 % (0.0-7.3) 05/22/17 04:50 Eosinophils % (Manual) 0 % (0.0-4.3) 05/22/17 04:50 Basophils % (Manual) 0 % (0.0-1.8) 05/22/17 04:50 Metamyelocytes % 2.0 % 05/22/17 04:50 Myelocytes % 0 % 05/22/17 04:50 Promyelocytes % 0 % 05/22/17 04:50 Blast Cells % 0 % 05/22/17 04:50 Nucleated RBC % Not Reportable 05/22/17 04:50 Seg Neutrophils # K/mm3 (1.8-7.7) 05/22/17 04:50 Seg Neutrophils # Man 30.5 K/mm3 (1.8-7.7) H 05/22/17 04:50 Band Neutrophils # 7.5 K/mm3 05/22/17 04:50 Lymphocytes # (Manual) 1.7 K/mm3 (1.2-5.4) 05/22/17 04:50 Abs React Lymphs (Man) 0.0 K/mm3 05/22/17 04:50 Monocytes # (Manual) 1.3 K/mm3 (0.0-0.8) H 05/22/17 04:50 Eosinophils # (Manual) 0.0 K/mm3 (0.0-0.4) 05/22/17 04:50 Basophils # (Manual) 0.0 K/mm3 (0.0-0.1) 05/22/17 04:50 Metamyelocytes # 0.8 K/mm3 05/22/17 04:50 Myelocytes # 0.0 K/mm3 05/22/17 04:50 Promyelocytes # 0.0 K/mm3 05/22/17 04:50 Blast Cells # 0.0 K/mm3 05/22/17 04:50 WBC Morphology Not Reportable 05/22/17 04:50 Hypersegmented Neuts Not Reportable 05/22/17 04:50 Hyposegmented Neuts Not Reportable 05/22/17 04:50 Hypogranular Neuts Not Reportable 05/22/17 04:50 Smudge Cells Not Reportable 05/22/17 04:50 Toxic Granulation Not Reportable 05/22/17 04:50 Toxic Vacuolation Not Reportable 05/22/17 04:50 Dohle Bodies Not Reportable 05/22/17 04:50 Pelger-Huet Anomaly Not Reportable 05/22/17 04:50 Neisha Rods Not Reportable 05/22/17 04:50 Platelet Estimate Appears normal 05/22/17 04:50 Clumped Platelets Not Reportable 05/22/17 04:50 Plt Clumps, EDTA Not Reportable 05/22/17 04:50 Large Platelets Not Reportable 05/22/17 04:50 Giant Platelets Not Reportable 05/22/17 04:50 Platelet Satelliting Not Reportable 05/22/17 04:50 Plt Morphology Comment Not Reportable 05/22/17 04:50 RBC Morphology Not Reportable 05/22/17 04:50 Dimorphic RBCs Not Reportable 05/22/17 04:50 Polychromasia Few 05/22/17 04:50 Hypochromasia Few 05/22/17 04:50 Poikilocytosis Not Reportable 05/22/17 04:50 Anisocytosis 1+ 05/22/17 04:50 Microcytosis Not Reportable 05/22/17 04:50 Macrocytosis Not Reportable 05/22/17 04:50 Spherocytes Not Reportable 05/22/17 04:50 Pappenheimer Bodies Not Reportable 05/22/17 04:50 Sickle Cells Not Reportable 05/22/17 04:50 Target Cells Not Reportable 05/22/17 04:50 Tear Drop Cells Not Reportable 05/22/17 04:50 Ovalocytes Few 05/22/17 04:50 Stomatocytes Few 05/21/17 05:20 Helmet Cells Not Reportable 05/22/17 04:50 Frankel-Milton Bodies Not Reportable 05/22/17 04:50 [place] Rings Not Reportable 05/22/17 04:50 Damián Cells Not Reportable 05/22/17 04:50 Bite Cells Not Reportable 05/22/17 04:50 Crenated Cell Not Reportable 05/22/17 04:50 Elliptocytes Rare 05/22/17 04:50 Acanthocytes (Spur) Not Reportable 05/22/17 04:50 Rouleaux Not Reportable 05/22/17 04:50 Hemoglobin C Crystals Not Reportable 05/22/17 04:50 Schistocytes Not Reportable 05/22/17 04:50 Malaria parasites Not Reportable 05/22/17 04:50 Herve Bodies Not Reportable 05/22/17 04:50 Hem Pathologist Commnt No 05/22/17 04:50 PT 21.3 Sec. (12.2-14.9) H 05/22/17 04:50 INR 1.75 (0.87-1.13) H 05/22/17 04:50 APTT 39.4 Sec. (24.2-36.6) H 05/22/17 04:50 D-Dimer 8441.57 ng/mlDDU (0-234) H 05/04/17 Unknown POC ABG pH 7.225 (7.35-7.45) L 05/22/17 05:46 POC ABG pCO2 45.3 (35-45) H 05/22/17 05:46 POC ABG pO2 102 (80-105) 05/22/17 05:46 POC ABG HCO3 18.8 05/22/17 05:46 POC ABG Total CO2 20 05/22/17 05:46 POC ABG O2 Sat 96 05/22/17 05:46 POC ABG Base Excess -9 05/22/17 05:46 FiO2 30 % 05/22/17 05:46 Sodium 142 mmol/L (137-145) 05/22/17 04:50 Potassium 4.3 mmol/L (3.6-5.0) D 05/22/17 04:50 Chloride 109.4 mmol/L (98-107) H 05/22/17 04:50 Carbon Dioxide 18 mmol/L (22-30) L 05/22/17 04:50 Anion Gap 19 mmol/L 05/22/17 04:50 BUN 17 mg/dL (7-17) 05/22/17 04:50 Creatinine 1.8 mg/dL (0.7-1.2) H 05/22/17 04:50 Estimated GFR 34 ml/min 05/22/17 04:50 BUN/Creatinine Ratio 9 % 05/22/17 04:50 Glucose 164 mg/dL (65-100) H 05/22/17 04:50 POC Glucose 200 (70-105) H 05/22/17 05:39 Lactic Acid 0.60 mmol/L (0.7-2.0) L 05/16/17 00:15 Calcium 6.6 mg/dL (8.4-10.2) L 05/22/17 04:50 Ionized Calcium 3.5 mg/dL (4.8-5.6) L 05/05/17 17:45 Phosphorus 5.40 mg/dL (2.5-4.5) H 05/16/17 10:20 Magnesium 1.40 mg/dL (1.7-2.3) L 05/22/17 04:50 Total Bilirubin < 0.20 mg/dL (0.1-1.2) 05/22/17 04:50 AST 21 units/L (5-40) 05/22/17 04:50 ALT 11 units/L (7-56) 05/22/17 04:50 Alkaline Phosphatase 33 units/L (35-129) L 05/22/17 04:50 Total Creatine Kinase 346 units/L (30-135) H 05/05/17 05:20 CK-MB (CK-2) 8.2 ng/mL (0.0-4.0) H 05/05/17 05:20 CK-MB (CK-2) Rel Index 2.3 (0-4) 05/05/17 05:20 Troponin T 0.027 ng/mL (0.00-0.029) 05/05/17 05:20 C-Reactive Protein 2.30 mg/dL (0.00-1.30) H 05/17/17 05:00 Total Protein 3.6 g/dL (6.3-8.2) L 05/22/17 04:50 Albumin 2.0 g/dL (3.9-5) L 05/22/17 04:50 Albumin/Globulin Ratio 1.3 % 05/22/17 04:50 Triglycerides 149 mg/dL (2-149) 05/04/17 18:55 Cholesterol 185 mg/dL (50-199) 05/04/17 18:55 LDL Cholesterol Direct 103 mg/dL (50-130) 05/04/17 18:55 HDL Cholesterol 53 mg/dL (40-59) 05/04/17 18:55 Cholesterol/HDL Ratio 3.49 % 05/04/17 18:55 TSH 1.780 mlU/mL (0.270-4.200) 05/04/17 18:39 Urine Color Yellow (Yellow) 05/19/17 18:04 Urine Turbidity Clear (Clear) 05/19/17 18:04 Urine pH 5.0 (5.0-7.0) 05/19/17 18:04 Ur Specific [place] 1.014 (1.003-1.030) 05/19/17 18:04 Urine Protein 30 mg/dl mg/dL (Negative) 05/19/17 18:04 Urine Glucose (UA) Neg mg/dL (Negative) 05/19/17 18:04 Urine Ketones Neg mg/dL (Negative) 05/19/17 18:04 Urine Blood Mod (Negative) 05/19/17 18:04 Urine Nitrite Neg (Negative) 05/19/17 18:04 Urine Bilirubin Neg (Negative) 05/19/17 18:04 Urine Urobilinogen < 2.0 mg/dL (<2.0) 05/19/17 18:04 Ur Leukocyte Esterase Lg (Negative) 05/19/17 18:04 Urine WBC (Auto) 78.0 /HPF (0.0-6.0) H 05/19/17 18:04 Urine RBC (Auto) 90.0 /HPF (0.0-6.0) 05/19/17 18:04 U Epithel Cells (Auto) < 1.0 /HPF (0-13.0) 05/19/17 18:04 Urine Bacteria (Auto) 2+ /HPF (Negative) 05/19/17 18:04 Amorphous Crystals Few 05/11/17 17:50 Hyaline Casts 3 /LPF 05/19/17 18:04 Granular Casts 1 /LPF 05/19/17 18:04 Urine Mucus Few /HPF 05/19/17 18:04 Ur Yeast w Hyphae Few /HPF 05/19/17 18:04 Urine Yeast (Budding) 3+ /HPF 05/19/17 18:04 Urine Creatinine 28.0 mg/dL (0.1-20.0) H 05/05/17 Unknown Urine Sodium 129 mmol/L 05/05/17 Unknown Urine Potassium 3.67 mmol/L 05/05/17 Unknown Urine Chloride 115.6 mmolL (110-250) 05/05/17 Unknown Salicylates 0.3 mg/dL (2.8-20.0) L 05/04/17 18:39 Urine Opiates Screen Presumptive negative 05/04/17 02:20 Urine Methadone Screen Presumptive negative 05/04/17 02:20 Acetaminophen < 15.0 ug/mL (10.0-30.0) 05/04/17 18:39 Ur Barbiturates Screen Presumptive negative 05/04/17 02:20 Ur Phencyclidine Scrn Presumptive negative 05/04/17 02:20 Ur Amphetamines Screen Presumptive negative 05/04/17 02:20 U Benzodiazepines Scrn Presumptive negative 05/04/17 02:20 Urine Cocaine Screen Presumptive negative 05/04/17 02:20 U Marijuana (THC) Screen Presumptive negative 05/04/17 02:20 Drugs of Abuse Note Disclamer 05/04/17 02:20 Plasma/Serum Alcohol < 0.01 gm% (0-0.07) 05/04/17 18:39 Hepatitis A IgM Ab Non-reactive (NonReactive) 05/20/17 17:49 Hep B Core IgM Ab Non-reactive (NonReactive) 05/20/17 17:49 Hepatitis C Antibody Non-reactive (NonReactive) 05/20/17 17:49 Miscellaneous Test Flexitest 1 H 05/17/17 12:20 Blood Type AB POSITIVE 05/20/17 13:46 Antibody Screen Negative 05/20/17 13:46 Crossmatch See Detail 05/20/17 13:46
--- NOTE | 2017-05-22 09:54 | Progress Note ---
Assessment and Plan Impression * Acute renal failure. Most likely secondary to ATN * Respiratory failure * Septic shock * Anemia * C. difficile colitis * COPD Recommendations * Status post initiation of hemodialysis on 05/18/2017 * Her electrolytes are acceptable. She is volume overloaded but hypotensive and tachycardic. Currently on Levophed drip. Not stable for dialysis today * Status post colectomy 05/21/17 * Avoid Nephrotoxins * Adjust meds for GFR less than 10 * No evidence of renal recovery at this time. Subjective Date of service: 05/22/17 Principal diagnosis: Septic shock,C. diff colitis Interval history: Patient remains in the ICU. Currently on 30% FiO2. Also on Levophed drip. Objective - Vital Signs Vital signs: Vital Signs - 12hr 05/21/17 05/21/17 05/21/17 22:00 22:15 22:30 Temperature Pulse Rate 109 H 113 H 110 H Pulse Rate [ Bilateral Bases ] Respiratory 18 20 18 Rate Respiratory Rate [Bilateral Bases] Blood Pressure 119/75 115/78 119/64 O2 Sat by Pulse 100 100 Oximetry 05/21/17 05/21/17 05/21/17 22:45 23:01 23:15 Temperature Pulse Rate 116 H 113 H 119 H Pulse Rate [ Bilateral Bases ] Respiratory 20 21 25 H Rate Respiratory Rate [Bilateral Bases] Blood Pressure 104/62 112/62 94/58 O2 Sat by Pulse 86 98 Oximetry 05/21/17 05/21/17 05/21/17 23:30 23:43 23:45 Temperature 98.4 F Pulse Rate 121 H 121 H Pulse Rate [ Bilateral Bases ] Respiratory 23 21 Rate Respiratory Rate [Bilateral Bases] Blood Pressure 96/64 102/73 O2 Sat by Pulse 100 Oximetry 05/21/17 05/22/17 05/22/17 23:50 00:00 00:15 Temperature Pulse Rate 118 H 111 H 110 H Pulse Rate [ Bilateral Bases ] Respiratory 20 21 Rate Respiratory Rate [Bilateral Bases] Blood Pressure 104/62 100/61 102/69 O2 Sat by Pulse 99 99 100 Oximetry 05/22/17 05/22/17 05/22/17 00:30 00:45 01:00 Temperature Pulse Rate 111 H 106 H 108 H Pulse Rate [ Bilateral Bases ] Respiratory 19 20 26 H Rate Respiratory Rate [Bilateral Bases] Blood Pressure 96/62 105/64 105/67 O2 Sat by Pulse Oximetry 05/22/17 05/22/17 05/22/17 01:15 01:30 01:45 Temperature Pulse Rate 106 H 109 H 108 H Pulse Rate [ Bilateral Bases ] Respiratory 24 22 32 H Rate Respiratory Rate [Bilateral Bases] Blood Pressure 109/68 115/68 106/75 O2 Sat by Pulse 81 L Oximetry 05/22/17 05/22/17 05/22/17 02:01 02:15 02:30 Temperature Pulse Rate 105 H 108 H 110 H Pulse Rate [ Bilateral Bases ] Respiratory 28 H 29 H 19 Rate Respiratory Rate [Bilateral Bases] Blood Pressure 113/68 102/70 106/68 O2 Sat by Pulse 100 Oximetry 05/22/17 05/22/17 05/22/17 02:45 03:00 03:15 Temperature Pulse Rate 122 H 117 H 117 H Pulse Rate [ Bilateral Bases ] Respiratory 20 27 H 23 Rate Respiratory Rate [Bilateral Bases] Blood Pressure 115/67 128/60 98/65 O2 Sat by Pulse 95 95 100 Oximetry 05/22/17 05/22/17 05/22/17 03:30 03:34 03:45 Temperature 98.9 F Pulse Rate 114 H 116 H Pulse Rate [ Bilateral Bases ] Respiratory 23 22 Rate Respiratory Rate [Bilateral Bases] Blood Pressure 119/68 112/74 O2 Sat by Pulse 100 Oximetry 05/22/17 05/22/17 05/22/17 04:00 04:15 04:30 Temperature Pulse Rate 115 H 116 H 110 H Pulse Rate [ Bilateral Bases ] Respiratory 22 22 21 Rate Respiratory Rate [Bilateral Bases] Blood Pressure 126/72 99/69 122/62 O2 Sat by Pulse 100 98 Oximetry 05/22/17 05/22/17 05/22/17 04:37 04:45 05:00 Temperature Pulse Rate 114 H 110 H 107 H Pulse Rate [ Bilateral Bases ] Respiratory 22 20 Rate Respiratory Rate [Bilateral Bases] Blood Pressure 122/62 122/79 132/46 O2 Sat by Pulse 100 Oximetry 05/22/17 05/22/17 05/22/17 05:15 05:30 05:45 Temperature Pulse Rate 112 H 107 H 104 H Pulse Rate [ Bilateral Bases ] Respiratory 27 H 33 H 30 H Rate Respiratory Rate [Bilateral Bases] Blood Pressure 119/76 120/73 132/73 O2 Sat by Pulse Oximetry 05/22/17 05/22/17 05/22/17 06:00 06:15 06:30 Temperature Pulse Rate 106 H 103 H 104 H Pulse Rate [ Bilateral Bases ] Respiratory 29 H 28 H 27 H Rate Respiratory Rate [Bilateral Bases] Blood Pressure 107/60 114/65 102/69 O2 Sat by Pulse 90 Oximetry 05/22/17 05/22/17 05/22/17 06:45 07:00 07:15 Temperature Pulse Rate 104 H 107 H 105 H Pulse Rate [ Bilateral Bases ] Respiratory 28 H 21 30 H Rate Respiratory Rate [Bilateral Bases] Blood Pressure 94/61 103/61 114/62 O2 Sat by Pulse Oximetry 05/22/17 05/22/17 05/22/17 07:30 07:45 08:00 Temperature Pulse Rate 104 H 104 H 104 H Pulse Rate [ Bilateral Bases ] Respiratory 25 H 24 24 Rate Respiratory Rate [Bilateral Bases] Blood Pressure 118/68 112/64 105/61 O2 Sat by Pulse Oximetry 05/22/17 05/22/17 05/22/17 08:15 08:31 08:45 Temperature Pulse Rate 108 H 115 H 109 H Pulse Rate [ Bilateral Bases ] Respiratory 20 22 22 Rate Respiratory Rate [Bilateral Bases] Blood Pressure 91/58 86/62 88/63 O2 Sat by Pulse Oximetry 05/22/17 05/22/17 05/22/17 09:00 09:01 09:07 Temperature Pulse Rate 114 H 111 H Pulse Rate [ 107 H Bilateral Bases ] Respiratory 31 H Rate Respiratory 111 H Rate [Bilateral Bases] Blood Pressure 87/58 97/55 O2 Sat by Pulse 94 100 Oximetry 05/22/17 09:17 Temperature Pulse Rate Pulse Rate [ 111 H Bilateral Bases ] Respiratory Rate Respiratory 20 Rate [Bilateral Bases] Blood Pressure O2 Sat by Pulse Oximetry - General Appearance General appearance: well-developed, well-nourished, appears stated age, intubated EENT: PERRL, mucous membranes moist Neck: no JVD, no thyromegaly, no carotid bruit, supple Respiratory: Present: Clear to Ascultation Cardiology: regular, normal heart rate Gastrointestinal: other (midline dressing noted. Colostomy bag in place.) Integumentary: other (right femoral Vas-Cath in place. 2+ pitting edema) - Lab 05/22/17 04:50 05/22/17 04:50 Most recent lab results Calcium 6.6 mg/dL (8.4-10.2) L 05/22/17 04:50 Phosphorus 5.40 mg/dL (2.5-4.5) H 05/16/17 10:20 Magnesium 1.40 mg/dL (1.7-2.3) L 05/22/17 04:50 Urine Creatinine 28.0 mg/dL (0.1-20.0) H 05/05/17 Unknown Urine Sodium 129 mmol/L 05/05/17 Unknown
[2017-05-22] MEDS ORDERED: MAGNESIUM SULFATE 3 GM in NACL 0.9% 100 ML IV ONE (10:00)
[2017-05-22] MEDS ORDERED: HEPARIN SUB-Q SCH (10:00)
[2017-05-22] MEDS: MORPHINE IV PRN (10:10)
[2017-05-22] MEDS: PEPCID PO SCH (10:33)
--- NOTE | 2017-05-22 10:46 | Progress Note ---
Assessment and Plan Assessment: 1) Persistent Septic Shock - not better; due to severe C diff colitis . CRP= 14 -->2.3. Procal=2.4. 2) Severe C diff Colitis: severe-recently exposed to broad spectrum abx. CT abd showed colitis. 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 reactive from colitis versus real 4) LUIS-worsening - now on HD 6) COPD 7) Resp failure Plan: -continue meropenem to cover empirically peritonitis and IV flagyl for now -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: Prevnar single dose and 8 weeks later Pneumovax Haemophilus influenza vaccine - one dose Menactra - (meningococcal vaccine) - one dose -close monitoring Thank you Dr Mejia for your consultation, will follow up with you. Winifred Guerrero MD Infectious Diseases Specialist [facility] ([facility]) M [phone] O [phone] Subjective Date of service: 05/22/17 Principal diagnosis: Septic shock,C. diff colitis Interval history: Remains critically ill on levophed at 12 mcg/min, sedated, intubated Microbiology: Blood cultures: 05/05 neg Urine cultures: 05/05 neg 05/19 billy Stool cultures: C diff 05/04 POSITIVE Resp culture: 05/16 neg Current Antimicrobials: Vancomycin PO 05/05 - no given Metronidazole 05/05 meropenem 05/17 Previous Antimicrobials: Zosyn Levaquin Vancomycin PO Metronidazole Vanco rectal 05/07 Ceftriaxone 05/11 Objective - Exam Narrative Exam: General appearance: sedated on the vent Eyes: anicteric sclerae HENT: Atraumatic; oropharynx +ETT Neck: Trachea midline; supple, no thyromegaly or lymphadenopathy Lungs: scattered rhonchi CV: rrr Abdomen: Soft, +surgical wound Ileostomy bag and JAVAN drain with small amount of pinkish drainage. Extremities: + peripheral edema Skin: Normal temperature, turgor and texture; no rash, ulcers or subcutaneous nodules Psych: Anxious. Neuro: alert and oriented x 3. Moving all extermities Lines: right SC TLC, rectal tube with copious black diarrhea - Constitutional Vitals: Vital Signs Temp Pulse Resp BP Pulse Ox 98.9 F 111 H 20 97/55 100 05/22/17 03:34 05/22/17 09:17 05/22/17 09:17 05/22/17 09:01 05/22/17 09:01 Temperature -Last 24 Hours Temperature 98.9 F Temperature 98.4 F Temperature 97.3 F Temperature 98.1 F Temperature 97.6 F Temperature 97.2 F Temperature 97.8 F Temperature 98.9 F Temperature 97.4 F - Labs CBC & Chem 7: 05/22/17 04:50 05/22/17 04:50 Labs: Abnormal lab results 05/20/17 05/21/17 05/21/17 Range/Units 13:46 13:00 13:00 WBC 32.9 H (4.5-11.0) K/mm3 RBC 3.09 L (3.65-5.03) M/mm3 Hgb 9.0 L (10.1-14.3) gm/dl Hct 27.6 L (30.3-42.9) % RDW 16.3 H (13.2-15.2) % Seg Neuts % (Manual) 86.0 H (40.0-70.0) % Lymphocytes % (Manual) 2.0 L (13.4-35.0) % Nucleated RBC % 2.0 H (0.0-0.9) % Seg Neutrophils # Man 28.3 H (1.8-7.7) K/mm3 Lymphocytes # (Manual) 0.7 L (1.2-5.4) K/mm3 Monocytes # (Manual) (0.0-0.8) K/mm3 PT (12.2-14.9) Sec. INR (0.87-1.13) APTT (24.2-36.6) Sec. POC ABG pH (7.35-7.45) POC ABG pCO2 (35-45) Potassium 3.3 L (3.6-5.0) mmol/L Chloride 108.4 H (98-107) mmol/L Carbon Dioxide 20 L (22-30) mmol/L Creatinine 1.4 H (0.7-1.2) mg/dL Glucose 119 H (65-100) mg/dL POC Glucose (70-105) Calcium 6.5 L D (8.4-10.2) mg/dL Magnesium (1.7-2.3) mg/dL Alkaline Phosphatase 28 L (35-129) units/L Total Protein 3.2 L (6.3-8.2) g/dL Albumin 1.7 L (3.9-5) g/dL Crossmatch See Detail 05/21/17 05/21/17 05/21/17 Range/Units 13:00 18:15 21:00 WBC 42.4 H* (4.5-11.0) K/mm3 RBC 2.85 L (3.65-5.03) M/mm3 Hgb 8.2 L (10.1-14.3) gm/dl Hct 25.9 L (30.3-42.9) % RDW 16.3 H (13.2-15.2) % Seg Neuts % (Manual) 95.0 H (40.0-70.0) % Lymphocytes % (Manual) 3.0 L (13.4-35.0) % Nucleated RBC % (0.0-0.9) % Seg Neutrophils # Man 40.3 H (1.8-7.7) K/mm3 Lymphocytes # (Manual) (1.2-5.4) K/mm3 Monocytes # (Manual) (0.0-0.8) K/mm3 PT 19.7 H (12.2-14.9) Sec. INR 1.59 H (0.87-1.13) APTT 41.1 H (24.2-36.6) Sec. POC ABG pH (7.35-7.45) POC ABG pCO2 (35-45) Potassium (3.6-5.0) mmol/L Chloride (98-107) mmol/L Carbon Dioxide (22-30) mmol/L Creatinine (0.7-1.2) mg/dL Glucose (65-100) mg/dL POC Glucose 149 H (70-105) Calcium (8.4-10.2) mg/dL Magnesium (1.7-2.3) mg/dL Alkaline Phosphatase (35-129) units/L Total Protein (6.3-8.2) g/dL Albumin (3.9-5) g/dL Crossmatch 05/22/17 05/22/17 05/22/17 Range/Units 00:02 04:50 04:50 WBC (4.5-11.0) K/mm3 RBC (3.65-5.03) M/mm3 Hgb (10.1-14.3) gm/dl Hct (30.3-42.9) % RDW (13.2-15.2) % Seg Neuts % (Manual) (40.0-70.0) % Lymphocytes % (Manual) (13.4-35.0) % Nucleated RBC % (0.0-0.9) % Seg Neutrophils # Man (1.8-7.7) K/mm3 Lymphocytes # (Manual) (1.2-5.4) K/mm3 Monocytes # (Manual) (0.0-0.8) K/mm3 PT (12.2-14.9) Sec. INR (0.87-1.13) APTT (24.2-36.6) Sec. POC ABG pH (7.35-7.45) POC ABG pCO2 (35-45) Potassium (3.6-5.0) mmol/L Chloride 109.4 H (98-107) mmol/L Carbon Dioxide 18 L (22-30) mmol/L Creatinine 1.8 H (0.7-1.2) mg/dL Glucose 164 H (65-100) mg/dL POC Glucose 155 H (70-105) Calcium 6.6 L (8.4-10.2) mg/dL Magnesium 1.40 L (1.7-2.3) mg/dL Alkaline Phosphatase 33 L (35-129) units/L Total Protein 3.6 L (6.3-8.2) g/dL Albumin 2.0 L (3.9-5) g/dL Crossmatch 05/22/17 05/22/17 05/22/17 Range/Units 04:50 04:50 05:39 WBC 41.8 H* (4.5-11.0) K/mm3 RBC 2.65 L (3.65-5.03) M/mm3 Hgb 7.8 L (10.1-14.3) gm/dl Hct 24.1 L (30.3-42.9) % RDW 16.5 H (13.2-15.2) % Seg Neuts % (Manual) 73.0 H (40.0-70.0) % Lymphocytes % (Manual) 4.0 L (13.4-35.0) % Nucleated RBC % (0.0-0.9) % Seg Neutrophils # Man 30.5 H (1.8-7.7) K/mm3 Lymphocytes # (Manual) (1.2-5.4) K/mm3 Monocytes # (Manual) 1.3 H (0.0-0.8) K/mm3 PT 21.3 H (12.2-14.9) Sec. INR 1.75 H (0.87-1.13) APTT 39.4 H (24.2-36.6) Sec. POC ABG pH (7.35-7.45) POC ABG pCO2 (35-45) Potassium (3.6-5.0) mmol/L Chloride (98-107) mmol/L Carbon Dioxide (22-30) mmol/L Creatinine (0.7-1.2) mg/dL Glucose (65-100) mg/dL POC Glucose 200 H (70-105) Calcium (8.4-10.2) mg/dL Magnesium (1.7-2.3) mg/dL Alkaline Phosphatase (35-129) units/L Total Protein (6.3-8.2) g/dL Albumin (3.9-5) g/dL Crossmatch 05/22/17 Range/Units 05:46 WBC (4.5-11.0) K/mm3 RBC (3.65-5.03) M/mm3 Hgb (10.1-14.3) gm/dl Hct (30.3-42.9) % RDW (13.2-15.2) % Seg Neuts % (Manual) (40.0-70.0) % Lymphocytes % (Manual) (13.4-35.0) % Nucleated RBC % (0.0-0.9) % Seg Neutrophils # Man (1.8-7.7) K/mm3 Lymphocytes # (Manual) (1.2-5.4) K/mm3 Monocytes # (Manual) (0.0-0.8) K/mm3 PT (12.2-14.9) Sec. INR (0.87-1.13) APTT (24.2-36.6) Sec. POC ABG pH 7.225 L (7.35-7.45) POC ABG pCO2 45.3 H (35-45) Potassium (3.6-5.0) mmol/L Chloride (98-107) mmol/L Carbon Dioxide (22-30) mmol/L Creatinine (0.7-1.2) mg/dL Glucose (65-100) mg/dL POC Glucose (70-105) Calcium (8.4-10.2) mg/dL Magnesium (1.7-2.3) mg/dL Alkaline Phosphatase (35-129) units/L Total Protein (6.3-8.2) g/dL Albumin (3.9-5) g/dL Crossmatch
[2017-05-22 10:58] LABS: ISTAT Base Excess -6; ISTAT HCO3 20.1; ISTAT PCO2 39.4 (35-45); ISTAT PH 7.317 (7.35-7.45); ISTAT PO2 88 (80-105); ISTAT SO2 96; ISTAT TCO2 21
[2017-05-22] MEDS ORDERED: PNEUMOVAX 23 IM ONE (12:00)
[2017-05-22] MEDS: MERREM 1,000 MG in NACL 0.9% 20 ML IV SCH (12:00)
[2017-05-22 13:09] LABS: Hematocrit 23.5 % (30.3-42.9); Hemoglobin 7.4 gm/dl (10.1-14.3)
--- NOTE | 2017-05-22 14:46 | Progress Note ---
Hospitalist Physical - Constitutional Vitals: Temp Pulse Resp BP Pulse Ox 98.1 F 100 H 19 104/68 96 05/22/17 12:00 05/22/17 14:26 05/22/17 14:26 05/22/17 14:16 05/22/17 14:16 General appearance: Present: mild distress, well-nourished, other (intubatd and vent supported) Results - Labs CBC & Chem 7: 05/22/17 12:45 05/22/17 04:50 Labs: Laboratory Last Values WBC 41.8 K/mm3 (4.5-11.0) H* 05/22/17 04:50 RBC 2.65 M/mm3 (3.65-5.03) L 05/22/17 04:50 Hgb 7.4 gm/dl (10.1-14.3) L 05/22/17 12:45 Hct 23.5 % (30.3-42.9) L 05/22/17 12:45 MCV 91 fl (79-97) 05/22/17 04:50 MCH 29 pg (28-32) 05/22/17 04:50 MCHC 33 % (30-34) 05/22/17 04:50 RDW 16.5 % (13.2-15.2) H 05/22/17 04:50 Plt Count 202 K/mm3 (140-440) 05/22/17 04:50 Taney % (Auto) % (0.0-7.3) 05/22/17 04:50 Eos % (Auto) % (0.0-4.3) 05/22/17 04:50 Taney # K/mm3 (0.0-0.8) 05/22/17 04:50 Eos # K/mm3 (0.0-0.4) 05/22/17 04:50 Baso # 0.0 K/mm3 (0.0-0.1) 05/22/17 04:50 Add Manual Diff Complete 05/22/17 04:50 Total Counted 100 05/22/17 04:50 Seg Neutrophils % [employer] Maintenance Technician 05/22/17 04:50 Seg Neuts % (Manual) 73.0 % (40.0-70.0) H 05/22/17 04:50 Band Neutrophils % 18.0 % 05/22/17 04:50 Lymphocytes % (Manual) 4.0 % (13.4-35.0) L 05/22/17 04:50 Reactive Lymphs % (Man) 0 % 05/22/17 04:50 Monocytes % (Manual) 3.0 % (0.0-7.3) 05/22/17 04:50 Eosinophils % (Manual) 0 % (0.0-4.3) 05/22/17 04:50 Basophils % (Manual) 0 % (0.0-1.8) 05/22/17 04:50 Metamyelocytes % 2.0 % 05/22/17 04:50 Myelocytes % 0 % 05/22/17 04:50 Promyelocytes % 0 % 05/22/17 04:50 Blast Cells % 0 % 05/22/17 04:50 Nucleated RBC % Not Reportable 05/22/17 04:50 Seg Neutrophils # K/mm3 (1.8-7.7) 05/22/17 04:50 Seg Neutrophils # Man 30.5 K/mm3 (1.8-7.7) H 05/22/17 04:50 Band Neutrophils # 7.5 K/mm3 05/22/17 04:50 Lymphocytes # (Manual) 1.7 K/mm3 (1.2-5.4) 05/22/17 04:50 Abs React Lymphs (Man) 0.0 K/mm3 05/22/17 04:50 Monocytes # (Manual) 1.3 K/mm3 (0.0-0.8) H 05/22/17 04:50 Eosinophils # (Manual) 0.0 K/mm3 (0.0-0.4) 05/22/17 04:50 Basophils # (Manual) 0.0 K/mm3 (0.0-0.1) 05/22/17 04:50 Metamyelocytes # 0.8 K/mm3 05/22/17 04:50 Myelocytes # 0.0 K/mm3 05/22/17 04:50 Promyelocytes # 0.0 K/mm3 05/22/17 04:50 Blast Cells # 0.0 K/mm3 05/22/17 04:50 WBC Morphology Not Reportable 05/22/17 04:50 Hypersegmented Neuts Not Reportable 05/22/17 04:50 Hyposegmented Neuts Not Reportable 05/22/17 04:50 Hypogranular Neuts Not Reportable 05/22/17 04:50 Smudge Cells Not Reportable 05/22/17 04:50 Toxic Granulation Not Reportable 05/22/17 04:50 Toxic Vacuolation Not Reportable 05/22/17 04:50 Dohle Bodies Not Reportable 05/22/17 04:50 Pelger-Huet Anomaly Not Reportable 05/22/17 04:50 Neisha Rods Not Reportable 05/22/17 04:50 Platelet Estimate Appears normal 05/22/17 04:50 Clumped Platelets Not Reportable 05/22/17 04:50 Plt Clumps, EDTA Not Reportable 05/22/17 04:50 Large Platelets Not Reportable 05/22/17 04:50 Giant Platelets Not Reportable 05/22/17 04:50 Platelet Satelliting Not Reportable 05/22/17 04:50 Plt Morphology Comment Not Reportable 05/22/17 04:50 RBC Morphology Not Reportable 05/22/17 04:50 Dimorphic RBCs Not Reportable 05/22/17 04:50 Polychromasia Few 05/22/17 04:50 Hypochromasia Few 05/22/17 04:50 Poikilocytosis Not Reportable 05/22/17 04:50 Anisocytosis 1+ 05/22/17 04:50 Microcytosis Not Reportable 05/22/17 04:50 Macrocytosis Not Reportable 05/22/17 04:50 Spherocytes Not Reportable 05/22/17 04:50 Pappenheimer Bodies Not Reportable 05/22/17 04:50 Sickle Cells Not Reportable 05/22/17 04:50 Target Cells Not Reportable 05/22/17 04:50 Tear Drop Cells Not Reportable 05/22/17 04:50 Ovalocytes Few 05/22/17 04:50 Stomatocytes Few 05/21/17 05:20 Helmet Cells Not Reportable 05/22/17 04:50 [place] Bodies Not Reportable 05/22/17 04:50 [place] Rings Not Reportable 05/22/17 04:50 Damián Cells Not Reportable 05/22/17 04:50 Bite Cells Not Reportable 05/22/17 04:50 Crenated Cell Not Reportable 05/22/17 04:50 Elliptocytes Rare 05/22/17 04:50 Acanthocytes (Spur) Not Reportable 05/22/17 04:50 Rouleaux Not Reportable 05/22/17 04:50 Hemoglobin C Crystals Not Reportable 05/22/17 04:50 Schistocytes Not Reportable 05/22/17 04:50 Malaria parasites Not Reportable 05/22/17 04:50 Herve Bodies Not Reportable 05/22/17 04:50 Hem Pathologist Commnt No 05/22/17 04:50 PT 21.3 Sec. (12.2-14.9) H 05/22/17 04:50 INR 1.75 (0.87-1.13) H 05/22/17 04:50 APTT 39.4 Sec. (24.2-36.6) H 05/22/17 04:50 D-Dimer 8441.57 ng/mlDDU (0-234) H 05/04/17 Unknown POC ABG pH 7.317 (7.35-7.45) L 05/22/17 10:32 POC ABG pCO2 39.4 (35-45) 05/22/17 10:32 POC ABG pO2 88 (80-105) 05/22/17 10:32 POC ABG HCO3 20.1 05/22/17 10:32 POC ABG Total CO2 21 05/22/17 10:32 POC ABG O2 Sat 96 05/22/17 10:32 POC ABG Base Excess -6 05/22/17 10:32 FiO2 30 % 05/22/17 10:32 Sodium 142 mmol/L (137-145) 05/22/17 04:50 Potassium 4.3 mmol/L (3.6-5.0) D 05/22/17 04:50 Chloride 109.4 mmol/L (98-107) H 05/22/17 04:50 Carbon Dioxide 18 mmol/L (22-30) L 05/22/17 04:50 Anion Gap 19 mmol/L 05/22/17 04:50 BUN 17 mg/dL (7-17) 05/22/17 04:50 Creatinine 1.8 mg/dL (0.7-1.2) H 05/22/17 04:50 Estimated GFR 34 ml/min 05/22/17 04:50 BUN/Creatinine Ratio 9 % 05/22/17 04:50 Glucose 164 mg/dL (65-100) H 05/22/17 04:50 POC Glucose 169 (70-105) H 05/22/17 11:41 Lactic Acid 0.60 mmol/L (0.7-2.0) L 05/16/17 00:15 Calcium 6.6 mg/dL (8.4-10.2) L 05/22/17 04:50 Ionized Calcium 3.5 mg/dL (4.8-5.6) L 05/05/17 17:45 Phosphorus 5.40 mg/dL (2.5-4.5) H 05/16/17 10:20 Magnesium 1.40 mg/dL (1.7-2.3) L 05/22/17 04:50 Total Bilirubin < 0.20 mg/dL (0.1-1.2) 05/22/17 04:50 AST 21 units/L (5-40) 05/22/17 04:50 ALT 11 units/L (7-56) 05/22/17 04:50 Alkaline Phosphatase 33 units/L (35-129) L 05/22/17 04:50 Total Creatine Kinase 346 units/L (30-135) H 05/05/17 05:20 CK-MB (CK-2) 8.2 ng/mL (0.0-4.0) H 05/05/17 05:20 CK-MB (CK-2) Rel Index 2.3 (0-4) 05/05/17 05:20 Troponin T 0.027 ng/mL (0.00-0.029) 05/05/17 05:20 C-Reactive Protein 2.30 mg/dL (0.00-1.30) H 05/17/17 05:00 Total Protein 3.6 g/dL (6.3-8.2) L 05/22/17 04:50 Albumin 2.0 g/dL (3.9-5) L 05/22/17 04:50 Albumin/Globulin Ratio 1.3 % 05/22/17 04:50 Triglycerides 149 mg/dL (2-149) 05/04/17 18:55 Cholesterol 185 mg/dL (50-199) 05/04/17 18:55 LDL Cholesterol Direct 103 mg/dL (50-130) 05/04/17 18:55 HDL Cholesterol 53 mg/dL (40-59) 05/04/17 18:55 Cholesterol/HDL Ratio 3.49 % 05/04/17 18:55 TSH 1.780 mlU/mL (0.270-4.200) 05/04/17 18:39 Urine Color Yellow (Yellow) 05/19/17 18:04 Urine Turbidity Clear (Clear) 05/19/17 18:04 Urine pH 5.0 (5.0-7.0) 05/19/17 18:04 Ur Specific Panther Burn 1.014 (1.003-1.030) 05/19/17 18:04 Urine Protein 30 mg/dl mg/dL (Negative) 05/19/17 18:04 Urine Glucose (UA) Neg mg/dL (Negative) 05/19/17 18:04 Urine Ketones Neg mg/dL (Negative) 05/19/17 18:04 Urine Blood Mod (Negative) 05/19/17 18:04 Urine Nitrite Neg (Negative) 05/19/17 18:04 Urine Bilirubin Neg (Negative) 05/19/17 18:04 Urine Urobilinogen < 2.0 mg/dL (<2.0) 05/19/17 18:04 Ur Leukocyte Esterase Lg (Negative) 05/19/17 18:04 Urine WBC (Auto) 78.0 /HPF (0.0-6.0) H 05/19/17 18:04 Urine RBC (Auto) 90.0 /HPF (0.0-6.0) 05/19/17 18:04 U Epithel Cells (Auto) < 1.0 /HPF (0-13.0) 05/19/17 18:04 Urine Bacteria (Auto) 2+ /HPF (Negative) 05/19/17 18:04 Amorphous Crystals Few 05/11/17 17:50 Hyaline Casts 3 /LPF 05/19/17 18:04 Granular Casts 1 /LPF 05/19/17 18:04 Urine Mucus Few /HPF 05/19/17 18:04 Ur Yeast w Hyphae Few /HPF 05/19/17 18:04 Urine Yeast (Budding) 3+ /HPF 05/19/17 18:04 Urine Creatinine 28.0 mg/dL (0.1-20.0) H 05/05/17 Unknown Urine Sodium 129 mmol/L 05/05/17 Unknown Urine Potassium 3.67 mmol/L 05/05/17 Unknown Urine Chloride 115.6 mmolL (110-250) 05/05/17 Unknown Salicylates 0.3 mg/dL (2.8-20.0) L 05/04/17 18:39 Urine Opiates Screen Presumptive negative 05/04/17 02:20 Urine Methadone Screen Presumptive negative 05/04/17 02:20 Acetaminophen < 15.0 ug/mL (10.0-30.0) 05/04/17 18:39 Ur Barbiturates Screen Presumptive negative 05/04/17 02:20 Ur Phencyclidine Scrn Presumptive negative 05/04/17 02:20 Ur Amphetamines Screen Presumptive negative 05/04/17 02:20 U Benzodiazepines Scrn Presumptive negative 05/04/17 02:20 Urine Cocaine Screen Presumptive negative 05/04/17 02:20 U Marijuana (THC) Screen Presumptive negative 05/04/17 02:20 Drugs of Abuse Note Disclamer 05/04/17 02:20 Plasma/Serum Alcohol < 0.01 gm% (0-0.07) 05/04/17 18:39 Hepatitis A IgM Ab Non-reactive (NonReactive) 05/20/17 17:49 Hep B Core IgM Ab Non-reactive (NonReactive) 05/20/17 17:49 Hepatitis C Antibody Non-reactive (NonReactive) 05/20/17 17:49 Miscellaneous Test Flexitest 1 H 05/17/17 12:20 Blood Type AB POSITIVE 05/20/17 13:46 Antibody Screen Negative 05/20/17 13:46 Crossmatch See Detail 05/20/17 13:46
[2017-05-22] MEDS ORDERED: NACL 0.9% 500 ML 500 ML IV SCH (14:53)
--- NOTE | 2017-05-22 15:09 | Progress Note ---
Assessment and Plan POD # 1 Pt intubated. VSS (on pressors) Abd soft. neg BS dressings dry. ileostomy functioning well. neg drainage from JAVAN stable guarded transfuse I unit PRBC the cbc 1 hr post transf. need to also keep up with fluid and electrolyte losses that will arise from ileostomy begin local wd care on Sat. continue present care. Selected Entries 05/22/17 14:45 Pulse Rate 101 H Blood Pressure 113/63 Laboratory Tests 05/22/17 05/22/17 05/22/17 04:50 04:50 12:45 WBC 41.8 H* Hgb 7.4 L Hct 23.5 L Sodium 142 Potassium 4.3 D Chloride 109.4 H Carbon Dioxide 18 L BUN 17 Creatinine 1.8 H Objective Vital Signs - 12hr 05/22/17 05/22/17 05/22/17 03:15 03:30 03:34 Temperature 98.9 F Pulse Rate 117 H 114 H Pulse Rate [ Bilateral Bases ] Respiratory 23 23 Rate Respiratory Rate [Bilateral Bases] Blood Pressure 98/65 119/68 O2 Sat by Pulse 100 100 Oximetry 05/22/17 05/22/17 05/22/17 03:45 04:00 04:15 Temperature Pulse Rate 116 H 115 H 116 H Pulse Rate [ Bilateral Bases ] Respiratory 22 22 22 Rate Respiratory Rate [Bilateral Bases] Blood Pressure 112/74 126/72 99/69 O2 Sat by Pulse 100 98 Oximetry 05/22/17 05/22/17 05/22/17 04:30 04:37 04:45 Temperature Pulse Rate 110 H 114 H 110 H Pulse Rate [ Bilateral Bases ] Respiratory 21 22 Rate Respiratory Rate [Bilateral Bases] Blood Pressure 122/62 122/62 122/79 O2 Sat by Pulse 100 Oximetry 05/22/17 05/22/17 05/22/17 05:00 05:15 05:30 Temperature Pulse Rate 107 H 112 H 107 H Pulse Rate [ Bilateral Bases ] Respiratory 20 27 H 33 H Rate Respiratory Rate [Bilateral Bases] Blood Pressure 132/46 119/76 120/73 O2 Sat by Pulse Oximetry 05/22/17 05/22/17 05/22/17 05:45 06:00 06:15 Temperature Pulse Rate 104 H 106 H 103 H Pulse Rate [ Bilateral Bases ] Respiratory 30 H 29 H 28 H Rate Respiratory Rate [Bilateral Bases] Blood Pressure 132/73 107/60 114/65 O2 Sat by Pulse Oximetry 05/22/17 05/22/17 05/22/17 06:30 06:45 07:00 Temperature Pulse Rate 104 H 104 H 107 H Pulse Rate [ Bilateral Bases ] Respiratory 27 H 28 H 21 Rate Respiratory Rate [Bilateral Bases] Blood Pressure 102/69 94/61 103/61 O2 Sat by Pulse 90 Oximetry 05/22/17 05/22/17 05/22/17 07:15 07:30 07:45 Temperature Pulse Rate 105 H 104 H 104 H Pulse Rate [ Bilateral Bases ] Respiratory 30 H 25 H 24 Rate Respiratory Rate [Bilateral Bases] Blood Pressure 114/62 118/68 112/64 O2 Sat by Pulse Oximetry 05/22/17 05/22/17 05/22/17 08:00 08:15 08:31 Temperature 97 F L Pulse Rate 104 H 108 H 115 H Pulse Rate [ Bilateral Bases ] Respiratory 24 20 22 Rate Respiratory Rate [Bilateral Bases] Blood Pressure 105/61 91/58 86/62 O2 Sat by Pulse Oximetry 05/22/17 05/22/17 05/22/17 08:45 09:00 09:01 Temperature Pulse Rate 109 H 114 H 111 H Pulse Rate [ Bilateral Bases ] Respiratory 22 31 H Rate Respiratory Rate [Bilateral Bases] Blood Pressure 88/63 87/58 97/55 O2 Sat by Pulse 94 100 Oximetry 05/22/17 05/22/17 05/22/17 09:07 09:15 09:17 Temperature Pulse Rate 109 H Pulse Rate [ 107 H 111 H Bilateral Bases ] Respiratory 20 Rate Respiratory 111 H 20 Rate [Bilateral Bases] Blood Pressure 94/64 O2 Sat by Pulse Oximetry 05/22/17 05/22/17 05/22/17 09:30 09:45 10:01 Temperature Pulse Rate 117 H 109 H 112 H Pulse Rate [ Bilateral Bases ] Respiratory 23 29 H 16 Rate Respiratory Rate [Bilateral Bases] Blood Pressure 100/64 102/64 102/64 O2 Sat by Pulse 100 99 99 Oximetry 05/22/17 05/22/17 05/22/17 10:15 10:30 10:32 Temperature Pulse Rate 110 H 104 H 106 H Pulse Rate [ Bilateral Bases ] Respiratory 24 25 H Rate Respiratory Rate [Bilateral Bases] Blood Pressure 96/37 98/67 96/37 O2 Sat by Pulse 89 77 L 100 Oximetry 05/22/17 05/22/17 05/22/17 10:45 11:00 11:15 Temperature Pulse Rate 112 H 112 H 118 H Pulse Rate [ Bilateral Bases ] Respiratory 26 H 20 22 Rate Respiratory Rate [Bilateral Bases] Blood Pressure 89/62 100/66 96/58 O2 Sat by Pulse 87 99 98 Oximetry 05/22/17 05/22/17 05/22/17 11:30 11:45 12:00 Temperature 98.1 F Pulse Rate 112 H 108 H 108 H Pulse Rate [ Bilateral Bases ] Respiratory 20 21 20 Rate Respiratory Rate [Bilateral Bases] Blood Pressure 87/61 96/60 102/67 O2 Sat by Pulse 100 100 99 Oximetry 05/22/17 05/22/17 05/22/17 12:15 12:30 12:45 Temperature Pulse Rate 104 H 102 H 100 H Pulse Rate [ Bilateral Bases ] Respiratory 19 26 H 22 Rate Respiratory Rate [Bilateral Bases] Blood Pressure 110/62 101/59 95/57 O2 Sat by Pulse 94 83 L Oximetry 05/22/17 05/22/17 05/22/17 13:00 13:15 13:30 Temperature Pulse Rate 100 H 102 H 102 H Pulse Rate [ Bilateral Bases ] Respiratory 26 H 19 19 Rate Respiratory Rate [Bilateral Bases] Blood Pressure 100/58 108/61 101/62 O2 Sat by Pulse Oximetry 05/22/17 05/22/17 05/22/17 13:45 14:00 14:15 Temperature Pulse Rate 99 H 99 H 101 H Pulse Rate [ Bilateral Bases ] Respiratory 20 20 20 Rate Respiratory Rate [Bilateral Bases] Blood Pressure 114/62 109/61 104/68 O2 Sat by Pulse Oximetry 05/22/17 05/22/17 05/22/17 14:16 14:18 14:26 Temperature Pulse Rate 102 H Pulse Rate [ 102 H 100 H Bilateral Bases ] Respiratory Rate Respiratory 20 19 Rate [Bilateral Bases] Blood Pressure 104/68 O2 Sat by Pulse 96 Oximetry 05/22/17 05/22/17 14:30 14:45 Temperature Pulse Rate 101 H 101 H Pulse Rate [ Bilateral Bases ] Respiratory 20 19 Rate Respiratory Rate [Bilateral Bases] Blood Pressure 111/68 113/63 O2 Sat by Pulse 100 Oximetry - Labs 05/22/17 12:45 05/22/17 04:50 Diabetes panel 05/22/17 Range/Units 04:50 Sodium 142 (137-145) mmol/L Potassium 4.3 D (3.6-5.0) mmol/L Chloride 109.4 H (98-107) mmol/L Carbon Dioxide 18 L (22-30) mmol/L BUN 17 (7-17) mg/dL Creatinine 1.8 H (0.7-1.2) mg/dL Glucose 164 H (65-100) mg/dL Calcium 6.6 L (8.4-10.2) mg/dL AST 21 (5-40) units/L ALT 11 (7-56) units/L Alkaline Phosphatase 33 L (35-129) units/L Total Protein 3.6 L (6.3-8.2) g/dL Albumin 2.0 L (3.9-5) g/dL Calcium panel 05/22/17 Range/Units 04:50 Calcium 6.6 L (8.4-10.2) mg/dL Albumin 2.0 L (3.9-5) g/dL Pituitary panel 05/22/17 Range/Units 04:50 Sodium 142 (137-145) mmol/L Potassium 4.3 D (3.6-5.0) mmol/L Chloride 109.4 H (98-107) mmol/L Carbon Dioxide 18 L (22-30) mmol/L BUN 17 (7-17) mg/dL Creatinine 1.8 H (0.7-1.2) mg/dL Glucose 164 H (65-100) mg/dL Calcium 6.6 L (8.4-10.2) mg/dL Adrenal panel 05/22/17 Range/Units 04:50 Sodium 142 (137-145) mmol/L Potassium 4.3 D (3.6-5.0) mmol/L Chloride 109.4 H (98-107) mmol/L Carbon Dioxide 18 L (22-30) mmol/L BUN 17 (7-17) mg/dL Creatinine 1.8 H (0.7-1.2) mg/dL Glucose 164 H (65-100) mg/dL Calcium 6.6 L (8.4-10.2) mg/dL Total Bilirubin < 0.20 (0.1-1.2) mg/dL AST 21 (5-40) units/L ALT 11 (7-56) units/L Alkaline Phosphatase 33 L (35-129) units/L Total Protein 3.6 L (6.3-8.2) g/dL Albumin 2.0 L (3.9-5) g/dL
--- NOTE | 2017-05-22 15:13 | Progress Note ---
Assessment and Plan CXR = small bilateral pleural effusions CT a/p reviewed = bilateral effusions with compressive atelectasis Imp: 1. Cdiff colitis 2. Sepsis with septic shock presumably related to #1, r/o other/new infections; do not suspect pneumonia 3. LUIS 4. Acute respiratory failure, hypoxia and hypercapnea 5. Centrilobular emphysema, severe/extensive on prior CT chest 6. Pulm HTN, probably due to #5 7. S/p Exlap, colectomy, splenectomy Rec: 1. Cont. bronchodilators; continue to hold off on steroids 2. ABX per ID; consider anti-fungal coverage if persistent leukocytosis 3. Holding HD today 4. Gentle hydration with D5 1/2 NS overnight; will probably need TPN; TFs off s/ p surgery 5. Rest on ventilator tonight; not ready for extubation for multiple reasons 6. DVT and GI PPx 7. Titrate Levophed to keep MAP > 65; treat pain as needed 8. Likely will need LTAC 9. For 1 unit of PRBCs 10. Prognosis is guarded; no family present today; complex decision-making Subjective Date of service: 05/22/17 Principal diagnosis: Septic shock,C. diff colitis Interval history: Remains on Levophed. Awake, on ventilator, PRVC. S/p exlap, colectomy, ileostomy , and splenectomy. Opens eyes, denies pain or other complaints. Active Medications Acetaminophen (Tylenol) 650 mg PO Q4H PRN PRN Reason: Pain MILD(1-3)/Fever >100.5/KHOURY Last Admin: 05/05/17 12:55 Dose: 650 mg Albuterol (Proventil) 2.5 mg IH Q4HRT PRN PRN Reason: Shortness Of Breath Albuterol/Ipratropium (Duoneb *Not For Prn Use*) 1 ampul IH TIDRT [facility] Last Admin: 05/22/17 14:18 Dose: 1 ampul Lipase/Protease/Amylase (Rohan Pearce 10,500 Unit) 1 each FEEDTUBE PRN PRN PRN Reason: For Clogged Feeding Tube Arformoterol Tartrate (Brovana Nebu) 15 mcg IH Q12HRT [facility] Last Admin: 05/22/17 09:07 Dose: Not Given Bisacodyl (Dulcolax) 10 mg ND QDAY PRN PRN Reason: Constipation unrelieved by MOM Budesonide (Pulmicort) 0.25 mg IH Q12HRT [facility]G Last Admin: 05/22/17 09:07 Dose: 0.25 mg Dextrose (D50w (25gm) Syringe) 50 ml IV PRN PRN PRN Reason: Hypoglycemia Epoetin Eugene (Epogen) 20,000 unit IV PHYLLIS PRN PRN Reason: hemodialysis Last Admin: 05/20/17 15:30 Dose: 20,000 unit Famotidine (Pepcid) 20 mg PO DAILY DUNG Last Admin: 05/22/17 10:33 Dose: Not Given Heparin Sodium (Porcine) (Heparin) 5,000 unit IV PHYLLIS PRN PRN Reason: hemodialysis Last Admin: 05/20/17 17:58 Dose: 5,000 unit Hydrocortisone Acetate (Proctosol-Hc) 1 applic ND Q8H PRN PRN Reason: Hemorrhoids Last Admin: 05/05/17 23:40 Dose: 1 applic Hydrophilic Ointment (Vaseline Lip Therapy) 1 applic TP Q2HR PRN PRN Reason: Dry Lips Last Admin: 05/16/17 20:58 Dose: 1 applic Sodium Chloride (Nacl 0.9% 500 Ml) 500 mls @ 10 mls/hr IV PRN PRN PRN Reason: FOR CVP Last Infusion: 05/07/17 13:17 Dose: Infused Metronidazole (Flagyl 500 Mg/100 Ml) 500 mg in 100 mls @ 100 mls/hr IV Q6HR DUNG Last Admin: 05/22/17 12:39 Dose: 100 mls/hr Norepinephrine 8 mg/ Sodium (Chloride) 250 mls @ 3.75 mls/hr IV TITR DUNG; 2 MCG /MIN PRN Reason: Protocol Last Admin: 05/22/17 12:39 Dose: 18 mcg/min, 33.75 mls/hr Meropenem 1,000 mg/ Sodium (Chloride) 20 mls @ 20 mls/10 min IV Q24H [facility]UNG Last Admin: 05/22/17 12:00 Dose: 20 mls/10 min Dextrose/Sodium Chloride (D5/0.45ns) 1,000 mls @ 42 mls/hr IV DIRECT DUNG Last Admin: 05/22/17 08:21 Dose: 42 mls/hr Sodium Chloride (Nacl 0.9% 500 Ml) 500 mls @ 0 mls/hr IV ONCE DUNG PRN Reason: As Directed Stop: 05/22/17 23:54 Insulin Aspart (Novolog) 0 units SUB-Q Q6HR DUNG PRN Reason: Protocol Last Admin: 05/22/17 12:40 Dose: 2 units Lactobacillus Acidophilus (Floranex) 1 each PO TID DUNG Last Admin: 05/22/17 10:33 Dose: Not Given Lorazepam (Ativan) 1 mg IV Q4H PRN PRN Reason: Agitation Last Admin: 05/21/17 17:19 Dose: 1 mg Morphine Sulfate (Morphine) 1 mg IV Q6H PRN PRN Reason: Pain, Moderate (4-6) Last Admin: 05/22/17 10:10 Dose: 1 mg Multi-Ingred Cream/Lotion/Oil/Oint (Artificial Tears Ophth Oint) 1 applic OU Q4HR PRN PRN Reason: Dry Eye(s) Ondansetron HCl (Zofran) 4 mg IV Q4H PRN PRN Reason: N/V unrelieved by Pilar Last Admin: 05/12/17 10:36 Dose: 4 mg Simple Syrup (Simple Syrup) 15 ml FEEDTUBE PRN PRN PRN Reason: Hypoglycemia Simple Syrup (Simple Syrup) 30 ml FEEDTUBE PRN PRN PRN Reason: Hypoglycemia Sodium Bicarbonate (Sodium Bicarbonate) 325 mg FEEDTUBE PRN PRN PRN Reason: For Clogged Feeding Tube Objective Vital Signs - 12hr 05/22/17 05/22/17 05/22/17 03:15 03:30 03:34 Temperature 98.9 F Pulse Rate 117 H 114 H Pulse Rate [ Bilateral Bases ] Respiratory 23 23 Rate Respiratory Rate [Bilateral Bases] Blood Pressure 98/65 119/68 O2 Sat by Pulse 100 100 Oximetry 05/22/17 05/22/17 05/22/17 03:45 04:00 04:15 Temperature Pulse Rate 116 H 115 H 116 H Pulse Rate [ Bilateral Bases ] Respiratory 22 22 22 Rate Respiratory Rate [Bilateral Bases] Blood Pressure 112/74 126/72 99/69 O2 Sat by Pulse 100 98 Oximetry 05/22/17 05/22/17 05/22/17 04:30 04:37 04:45 Temperature Pulse Rate 110 H 114 H 110 H Pulse Rate [ Bilateral Bases ] Respiratory 21 22 Rate Respiratory Rate [Bilateral Bases] Blood Pressure 122/62 122/62 122/79 O2 Sat by Pulse 100 Oximetry 05/22/17 05/22/17 05/22/17 05:00 05:15 05:30 Temperature Pulse Rate 107 H 112 H 107 H Pulse Rate [ Bilateral Bases ] Respiratory 20 27 H 33 H Rate Respiratory Rate [Bilateral Bases] Blood Pressure 132/46 119/76 120/73 O2 Sat by Pulse Oximetry 05/22/17 05/22/17 05/22/17 05:45 06:00 06:15 Temperature Pulse Rate 104 H 106 H 103 H Pulse Rate [ Bilateral Bases ] Respiratory 30 H 29 H 28 H Rate Respiratory Rate [Bilateral Bases] Blood Pressure 132/73 107/60 114/65 O2 Sat by Pulse Oximetry 05/22/17 05/22/17 05/22/17 06:30 06:45 07:00 Temperature Pulse Rate 104 H 104 H 107 H Pulse Rate [ Bilateral Bases ] Respiratory 27 H 28 H 21 Rate Respiratory Rate [Bilateral Bases] Blood Pressure 102/69 94/61 103/61 O2 Sat by Pulse 90 Oximetry 05/22/17 05/22/17 05/22/17 07:15 07:30 07:45 Temperature Pulse Rate 105 H 104 H 104 H Pulse Rate [ Bilateral Bases ] Respiratory 30 H 25 H 24 Rate Respiratory Rate [Bilateral Bases] Blood Pressure 114/62 118/68 112/64 O2 Sat by Pulse Oximetry 05/22/17 05/22/17 05/22/17 08:00 08:15 08:31 Temperature 97 F L Pulse Rate 104 H 108 H 115 H Pulse Rate [ Bilateral Bases ] Respiratory 24 20 22 Rate Respiratory Rate [Bilateral Bases] Blood Pressure 105/61 91/58 86/62 O2 Sat by Pulse Oximetry 05/22/17 05/22/17 05/22/17 08:45 09:00 09:01 Temperature Pulse Rate 109 H 114 H 111 H Pulse Rate [ Bilateral Bases ] Respiratory 22 31 H Rate Respiratory Rate [Bilateral Bases] Blood Pressure 88/63 87/58 97/55 O2 Sat by Pulse 94 100 Oximetry 05/22/17 05/22/17 05/22/17 09:07 09:15 09:17 Temperature Pulse Rate 109 H Pulse Rate [ 107 H 111 H Bilateral Bases ] Respiratory 20 Rate Respiratory 111 H 20 Rate [Bilateral Bases] Blood Pressure 94/64 O2 Sat by Pulse Oximetry 05/22/17 05/22/17 05/22/17 09:30 09:45 10:01 Temperature Pulse Rate 117 H 109 H 112 H Pulse Rate [ Bilateral Bases ] Respiratory 23 29 H 16 Rate Respiratory Rate [Bilateral Bases] Blood Pressure 100/64 102/64 102/64 O2 Sat by Pulse 100 99 99 Oximetry 05/22/17 05/22/17 05/22/17 10:15 10:30 10:32 Temperature Pulse Rate 110 H 104 H 106 H Pulse Rate [ Bilateral Bases ] Respiratory 24 25 H Rate Respiratory Rate [Bilateral Bases] Blood Pressure 96/37 98/67 96/37 O2 Sat by Pulse 89 77 L 100 Oximetry 05/22/17 05/22/17 05/22/17 10:45 11:00 11:15 Temperature Pulse Rate 112 H 112 H 118 H Pulse Rate [ Bilateral Bases ] Respiratory 26 H 20 22 Rate Respiratory Rate [Bilateral Bases] Blood Pressure 89/62 100/66 96/58 O2 Sat by Pulse 87 99 98 Oximetry 05/22/17 05/22/17 05/22/17 11:30 11:45 12:00 Temperature 98.1 F Pulse Rate 112 H 108 H 108 H Pulse Rate [ Bilateral Bases ] Respiratory 20 21 20 Rate Respiratory Rate [Bilateral Bases] Blood Pressure 87/61 96/60 102/67 O2 Sat by Pulse 100 100 99 Oximetry 05/22/17 05/22/17 05/22/17 12:15 12:30 12:45 Temperature Pulse Rate 104 H 102 H 100 H Pulse Rate [ Bilateral Bases ] Respiratory 19 26 H 22 Rate Respiratory Rate [Bilateral Bases] Blood Pressure 110/62 101/59 95/57 O2 Sat by Pulse 94 83 L Oximetry 05/22/17 05/22/17 05/22/17 13:00 13:15 13:30 Temperature Pulse Rate 100 H 102 H 102 H Pulse Rate [ Bilateral Bases ] Respiratory 26 H 19 19 Rate Respiratory Rate [Bilateral Bases] Blood Pressure 100/58 108/61 101/62 O2 Sat by Pulse Oximetry 05/22/17 05/22/17 05/22/17 13:45 14:00 14:15 Temperature Pulse Rate 99 H 99 H 101 H Pulse Rate [ Bilateral Bases ] Respiratory 20 20 20 Rate Respiratory Rate [Bilateral Bases] Blood Pressure 114/62 109/61 104/68 O2 Sat by Pulse Oximetry 05/22/17 05/22/17 05/22/17 14:16 14:18 14:26 Temperature Pulse Rate 102 H Pulse Rate [ 102 H 100 H Bilateral Bases ] Respiratory Rate Respiratory 20 19 Rate [Bilateral Bases] Blood Pressure 104/68 O2 Sat by Pulse 96 Oximetry 05/22/17 05/22/17 14:30 14:45 Temperature Pulse Rate 101 H 101 H Pulse Rate [ Bilateral Bases ] Respiratory 20 19 Rate Respiratory Rate [Bilateral Bases] Blood Pressure 111/68 113/63 O2 Sat by Pulse 100 Oximetry Constitutional: alert, other (critically ill on vent) Eyes: non-icteric ENT: oropharynx moist Neck: supple Effort: normal Ascultation: Bilateral: other (coarse BS bilaterally) Percussion: Bilateral: not dull Cardiovascular: other (tachy, RR; no mrg) Gastrointestinal: hypoactive bowel sounds, tender, other (distended, ostomy looks good) Integumentary: normal Extremities: no cyanosis, pink and warm, anasarca (1+ bilateral LE edema) Neurologic: normal mental status, non-focal exam, pupils equal and round, CN II- XII normal Psychiatric: mood appropriate, affect normal CBC and BMP: 05/22/17 12:45 05/22/17 04:50 ABG, PT/INR, D-dimer: ABG POC ABG pH 7.317 (7.35-7.45) L 05/22/17 10:32 POC ABG pCO2 39.4 (35-45) 05/22/17 10:32 POC ABG pO2 88 (80-105) 05/22/17 10:32 POC ABG HCO3 20.1 05/22/17 10:32 POC ABG Total CO2 21 05/22/17 10:32 POC ABG O2 Sat 96 05/22/17 10:32 PT/INR, D-dimer PT 21.3 Sec. (12.2-14.9) H 05/22/17 04:50 INR 1.75 (0.87-1.13) H 05/22/17 04:50 D-Dimer 8441.57 ng/mlDDU (0-234) H 05/04/17 Unknown Abnormal lab findings: Abnormal Labs 05/04/17 05/04/17 05/04/17 02:20 18:39 18:39 WBC 24.3 H RBC Hgb Hct RDW 16.4 H Plt Count 658 H Seg Neuts % (Manual) 94.5 H Lymphocytes % (Manual) 2.5 L Monocytes % (Manual) Nucleated RBC % Seg Neutrophils # Man 23.0 H Lymphocytes # (Manual) 0.6 L Monocytes # (Manual) Eosinophils # (Manual) PT INR APTT D-Dimer POC ABG pH POC ABG pCO2 POC ABG pO2 Sodium Potassium 3.2 L Chloride 92.6 L Carbon Dioxide 14 L BUN 66 H Creatinine 6.5 H Glucose POC Glucose Lactic Acid Calcium 7.5 L Ionized Calcium Phosphorus Magnesium ALT 5 L Alkaline Phosphatase 32 L Total Creatine Kinase CK-MB (CK-2) Troponin T C-Reactive Protein Total Protein 5.4 L Albumin 3.0 L Urine WBC (Auto) 100.0 H Urine Creatinine Salicylates Miscellaneous Test Crossmatch 05/04/17 05/04/17 05/04/17 18:39 18:55 Unknown WBC RBC Hgb Hct RDW Plt Count Seg Neuts % (Manual) Lymphocytes % (Manual) Monocytes % (Manual) Nucleated RBC % Seg Neutrophils # Man Lymphocytes # (Manual) Monocytes # (Manual) Eosinophils # (Manual) PT INR APTT D-Dimer POC ABG pH POC ABG pCO2 POC ABG pO2 Sodium Potassium Chloride Carbon Dioxide BUN Creatinine Glucose POC Glucose Lactic Acid 0.40 L Calcium Ionized Calcium Phosphorus Magnesium ALT Alkaline Phosphatase Total Creatine Kinase 155 H CK-MB (CK-2) 4.5 H Troponin T 0.033 H C-Reactive Protein Total Protein Albumin Urine WBC (Auto) Urine Creatinine Salicylates 0.3 L Miscellaneous Test Crossmatch 05/04/17 05/04/17 05/04/17 Unknown Unknown Unknown WBC RBC Hgb Hct RDW Plt Count Seg Neuts % (Manual) Lymphocytes % (Manual) Monocytes % (Manual) Nucleated RBC % Seg Neutrophils # Man Lymphocytes # (Manual) Monocytes # (Manual) Eosinophils # (Manual) PT INR APTT D-Dimer 8441.57 H POC ABG pH POC ABG pCO2 POC ABG pO2 Sodium Potassium Chloride Carbon Dioxide BUN Creatinine Glucose POC Glucose Lactic Acid 0.40 L Calcium Ionized Calcium Phosphorus Magnesium ALT Alkaline Phosphatase Total Creatine Kinase 246 H CK-MB (CK-2) 6.2 H Troponin T C-Reactive Protein Total Protein Albumin Urine WBC (Auto) Urine Creatinine Salicylates Miscellaneous Test Crossmatch 05/05/17 05/05/17 05/05/17 05:20 05:20 05:20 WBC 33.9 H RBC 3.39 L Hgb 9.3 L Hct RDW 16.7 H Plt Count 712 H Seg Neuts % (Manual) 91.0 H Lymphocytes % (Manual) 1.0 L Monocytes % (Manual) Nucleated RBC % Seg Neutrophils # Man 30.8 H Lymphocytes # (Manual) 0.3 L Monocytes # (Manual) 1.5 H Eosinophils # (Manual) PT INR APTT D-Dimer POC ABG pH POC ABG pCO2 POC ABG pO2 Sodium Potassium Chloride Carbon Dioxide 9 L* BUN 53 H Creatinine 5.4 H Glucose POC Glucose Lactic Acid Calcium 6.1 L D Ionized Calcium Phosphorus Magnesium ALT Alkaline Phosphatase Total Creatine Kinase 346 H CK-MB (CK-2) 8.2 H Troponin T C-Reactive Protein Total Protein Albumin Urine WBC (Auto) Urine Creatinine Salicylates Miscellaneous Test Crossmatch 05/05/17 05/05/17 05/05/17 10:43 17:45 17:45 WBC RBC Hgb 8.8 L Hct RDW Plt Count Seg Neuts % (Manual) Lymphocytes % (Manual) Monocytes % (Manual) Nucleated RBC % Seg Neutrophils # Man Lymphocytes # (Manual) Monocytes # (Manual) Eosinophils # (Manual) PT INR APTT D-Dimer POC ABG pH 6.872 L POC ABG pCO2 POC ABG pO2 120 H Sodium Potassium Chloride Carbon Dioxide BUN Creatinine Glucose POC Glucose Lactic Acid Calcium Ionized Calcium 3.5 L Phosphorus Magnesium ALT Alkaline Phosphatase Total Creatine Kinase CK-MB (CK-2) Troponin T C-Reactive Protein Total Protein Albumin Urine WBC (Auto) Urine Creatinine Salicylates Miscellaneous Test Crossmatch 05/05/17 05/05/17 05/05/17 17:45 20:58 Unknown WBC RBC Hgb 9.0 L Hct 29.8 L RDW Plt Count Seg Neuts % (Manual) Lymphocytes % (Manual) Monocytes % (Manual) Nucleated RBC % Seg Neutrophils # Man Lymphocytes # (Manual) Monocytes # (Manual) Eosinophils # (Manual) PT INR APTT D-Dimer POC ABG pH POC ABG pCO2 POC ABG pO2 Sodium Potassium Chloride Carbon Dioxide BUN Creatinine Glucose POC Glucose Lactic Acid Calcium Ionized Calcium Phosphorus 6.20 H Magnesium 1.20 L ALT Alkaline Phosphatase Total Creatine Kinase CK-MB (CK-2) Troponin T C-Reactive Protein Total Protein Albumin Urine WBC (Auto) Urine Creatinine 28.0 H Salicylates Miscellaneous Test Crossmatch 05/06/17 05/06/17 05/06/17 05:09 05:23 07:55 WBC RBC Hgb Hct RDW Plt Count Seg Neuts % (Manual) Lymphocytes % (Manual) Monocytes % (Manual) Nucleated RBC % Seg Neutrophils # Man Lymphocytes # (Manual) Monocytes # (Manual) Eosinophils # (Manual) PT INR APTT D-Dimer POC ABG pH 7.029 L 7.060 L POC ABG pCO2 54.8 H 48.6 H POC ABG pO2 74 L 43 L Sodium Potassium 3.5 L Chloride Carbon Dioxide 18 L D BUN 44 H Creatinine 3.5 H Glucose 252 H POC Glucose Lactic Acid Calcium 5.8 L* Ionized Calcium Phosphorus Magnesium ALT Alkaline Phosphatase Total Creatine Kinase CK-MB (CK-2) Troponin T C-Reactive Protein Total Protein Albumin Urine WBC (Auto) Urine Creatinine Salicylates Miscellaneous Test Crossmatch 05/06/17 05/06/17 05/06/17 07:55 15:28 17:30 WBC RBC Hgb Hct RDW Plt Count Seg Neuts % (Manual) Lymphocytes % (Manual) Monocytes % (Manual) Nucleated RBC % Seg Neutrophils # Man Lymphocytes # (Manual) Monocytes # (Manual) Eosinophils # (Manual) PT INR APTT D-Dimer POC ABG pH 7.066 L POC ABG pCO2 80.9 H POC ABG pO2 65 L Sodium Potassium Chloride Carbon Dioxide BUN Creatinine Glucose POC Glucose Lactic Acid Calcium Ionized Calcium Phosphorus Magnesium ALT Alkaline Phosphatase Total Creatine Kinase CK-MB (CK-2) Troponin T C-Reactive Protein 14.50 H Total Protein Albumin Urine WBC (Auto) Urine Creatinine Salicylates Miscellaneous Test Flexitest 1 H Crossmatch 05/06/17 05/06/17 05/07/17 17:30 Unknown 10:18 WBC 39.2 H 32.9 H RBC 3.27 L Hgb 9.3 L Hct 30.2 L RDW 16.4 H 17.0 H Plt Count 645 H 467 H Seg Neuts % (Manual) Lymphocytes % (Manual) 11.0 L Monocytes % (Manual) Nucleated RBC % Seg Neutrophils # Man 21.2 H Lymphocytes # (Manual) Monocytes # (Manual) 2.0 H Eosinophils # (Manual) PT INR APTT D-Dimer POC ABG pH POC ABG pCO2 POC ABG pO2 Sodium Potassium 3.4 L Chloride Carbon Dioxide BUN 41 H Creatinine 3.2 H Glucose 265 H POC Glucose Lactic Acid Calcium 6.7 L D Ionized Calcium Phosphorus Magnesium ALT Alkaline Phosphatase Total Creatine Kinase CK-MB (CK-2) Troponin T C-Reactive Protein Total Protein Albumin Urine WBC (Auto) Urine Creatinine Salicylates Miscellaneous Test Crossmatch 05/07/17 05/07/17 05/08/17 11:32 12:36 05:45 WBC 31.1 H RBC 3.41 L Hgb 9.8 L Hct RDW 16.9 H Plt Count Seg Neuts % (Manual) 96.0 H Lymphocytes % (Manual) 1.0 L Monocytes % (Manual) Nucleated RBC % Seg Neutrophils # Man 29.9 H Lymphocytes # (Manual) 0.3 L Monocytes # (Manual) Eosinophils # (Manual) PT INR APTT D-Dimer POC ABG pH 7.290 L POC ABG pCO2 48.3 H POC ABG pO2 51 L Sodium 146 H Potassium 3.1 L Chloride 109.2 H Carbon Dioxide 20 L BUN 38 H Creatinine 2.7 H Glucose 213 H POC Glucose Lactic Acid Calcium 6.6 L Ionized Calcium Phosphorus Magnesium ALT Alkaline Phosphatase Total Creatine Kinase CK-MB (CK-2) Troponin T C-Reactive Protein Total Protein Albumin Urine WBC (Auto) Urine Creatinine Salicylates Miscellaneous Test Crossmatch 05/08/17 05/08/17 05/09/17 05:45 18:55 04:05 WBC 26.1 H RBC Hgb Hct RDW 17.6 H Plt Count Seg Neuts % (Manual) Lymphocytes % (Manual) 5.0 L Monocytes % (Manual) Nucleated RBC % Seg Neutrophils # Man 16.7 H Lymphocytes # (Manual) Monocytes # (Manual) Eosinophils # (Manual) PT INR APTT D-Dimer POC ABG pH POC ABG pCO2 POC ABG pO2 Sodium 150 H Potassium Chloride 115.4 H 112.2 H Carbon Dioxide 20 L 18 L BUN 39 H 45 H Creatinine 2.4 H 2.3 H Glucose 160 H 219 H POC Glucose Lactic Acid Calcium 6.6 L 7.2 L Ionized Calcium Phosphorus Magnesium 1.40 L ALT 6 L Alkaline Phosphatase Total Creatine Kinase CK-MB (CK-2) Troponin T C-Reactive Protein Total Protein 4.1 L D Albumin 2.0 L Urine WBC (Auto) Urine Creatinine Salicylates Miscellaneous Test Crossmatch 05/09/17 05/09/17 05/09/17 04:05 05:15 05:45 WBC RBC Hgb Hct RDW Plt Count Seg Neuts % (Manual) Lymphocytes % (Manual) Monocytes % (Manual) Nucleated RBC % Seg Neutrophils # Man Lymphocytes # (Manual) Monocytes # (Manual) Eosinophils # (Manual) PT INR APTT D-Dimer POC ABG pH POC ABG pCO2 POC ABG pO2 Sodium 130 L D Potassium 3.4 L D Chloride 94.6 L Carbon Dioxide 19 L BUN 39 H Creatinine 2.1 H Glucose 549 H* 189 H POC Glucose 181 H Lactic Acid Calcium 6.6 L Ionized Calcium Phosphorus Magnesium ALT 6 L Alkaline Phosphatase 31 L Total Creatine Kinase CK-MB (CK-2) Troponin T C-Reactive Protein Total Protein 3.5 L Albumin 2.0 L Urine WBC (Auto) Urine Creatinine Salicylates Miscellaneous Test Crossmatch 05/09/17 05/09/17 05/09/17 08:03 11:08 16:15 WBC RBC Hgb Hct RDW Plt Count Seg Neuts % (Manual) Lymphocytes % (Manual) Monocytes % (Manual) Nucleated RBC % Seg Neutrophils # Man Lymphocytes # (Manual) Monocytes # (Manual) Eosinophils # (Manual) PT INR APTT D-Dimer POC ABG pH POC ABG pCO2 POC ABG pO2 Sodium Potassium Chloride 107.8 H Carbon Dioxide 21 L BUN 43 H Creatinine 2.4 H Glucose 195 H POC Glucose 299 H 111 H Lactic Acid Calcium 7.1 L Ionized Calcium Phosphorus Magnesium ALT Alkaline Phosphatase Total Creatine Kinase CK-MB (CK-2) Troponin T C-Reactive Protein Total Protein 3.9 L Albumin 2.3 L Urine WBC (Auto) Urine Creatinine Salicylates Miscellaneous Test Crossmatch 05/09/17 05/10/17 05/10/17 23:05 05:00 05:00 WBC 20.9 H RBC 3.53 L Hgb Hct RDW 17.3 H Plt Count Seg Neuts % (Manual) 72.0 H Lymphocytes % (Manual) 8.0 L Monocytes % (Manual) Nucleated RBC % Seg Neutrophils # Man 15.0 H Lymphocytes # (Manual) Monocytes # (Manual) Eosinophils # (Manual) PT INR APTT D-Dimer POC ABG pH POC ABG pCO2 POC ABG pO2 Sodium 135 L D Potassium 3.2 L Chloride Carbon Dioxide 21 L BUN 45 H Creatinine 2.2 H Glucose 308 H POC Glucose 336 H Lactic Acid Calcium 7.1 L Ionized Calcium Phosphorus Magnesium ALT 5 L Alkaline Phosphatase 30 L Total Creatine Kinase CK-MB (CK-2) Troponin T C-Reactive Protein Total Protein 3.8 L Albumin 2.1 L Urine WBC (Auto) Urine Creatinine Salicylates Miscellaneous Test Crossmatch 05/10/17 05/10/17 05/10/17 07:28 11:36 16:03 WBC RBC Hgb Hct RDW Plt Count Seg Neuts % (Manual) Lymphocytes % (Manual) Monocytes % (Manual) Nucleated RBC % Seg Neutrophils # Man Lymphocytes # (Manual) Monocytes # (Manual) Eosinophils # (Manual) PT INR APTT D-Dimer POC ABG pH POC ABG pCO2 POC ABG pO2 Sodium Potassium Chloride Carbon Dioxide BUN Creatinine Glucose POC Glucose 154 H 184 H 162 H Lactic Acid Calcium Ionized Calcium Phosphorus Magnesium ALT Alkaline Phosphatase Total Creatine Kinase CK-MB (CK-2) Troponin T C-Reactive Protein Total Protein Albumin Urine WBC (Auto) Urine Creatinine Salicylates Miscellaneous Test Crossmatch 05/10/17 05/11/17 05/11/17 21:13 06:50 06:50 WBC 24.4 H RBC Hgb Hct RDW 17.4 H Plt Count Seg Neuts % (Manual) Lymphocytes % (Manual) 5.0 L Monocytes % (Manual) Nucleated RBC % Seg Neutrophils # Man 16.3 H Lymphocytes # (Manual) Monocytes # (Manual) 1.0 H Eosinophils # (Manual) PT INR APTT D-Dimer POC ABG pH POC ABG pCO2 POC ABG pO2 Sodium Potassium 3.4 L Chloride Carbon Dioxide BUN 50 H Creatinine 2.8 H Glucose 131 H POC Glucose 188 H Lactic Acid Calcium 7.6 L Ionized Calcium Phosphorus Magnesium ALT < 5 L Alkaline Phosphatase 25 L Total Creatine Kinase CK-MB (CK-2) Troponin T C-Reactive Protein Total Protein 3.6 L Albumin 2.0 L Urine WBC (Auto) Urine Creatinine Salicylates Miscellaneous Test Crossmatch 05/11/17 05/11/17 05/11/17 09:33 11:45 15:46 WBC RBC Hgb Hct RDW Plt Count Seg Neuts % (Manual) Lymphocytes % (Manual) Monocytes % (Manual) Nucleated RBC % Seg Neutrophils # Man Lymphocytes # (Manual) Monocytes # (Manual) Eosinophils # (Manual) PT INR APTT D-Dimer POC ABG pH POC ABG pCO2 POC ABG pO2 Sodium Potassium Chloride Carbon Dioxide BUN Creatinine Glucose POC Glucose 140 H 157 H 137 H Lactic Acid Calcium Ionized Calcium Phosphorus Magnesium ALT Alkaline Phosphatase Total Creatine Kinase CK-MB (CK-2) Troponin T C-Reactive Protein Total Protein Albumin Urine WBC (Auto) Urine Creatinine Salicylates Miscellaneous Test Crossmatch 05/11/17 05/11/17 05/12/17 17:50 20:58 05:00 WBC 23.1 H RBC 3.59 L Hgb Hct RDW 17.1 H Plt Count Seg Neuts % (Manual) 94.0 H Lymphocytes % (Manual) 0 L Monocytes % (Manual) Nucleated RBC % Seg Neutrophils # Man 21.7 H Lymphocytes # (Manual) 0.0 L Monocytes # (Manual) Eosinophils # (Manual) PT INR APTT D-Dimer POC ABG pH POC ABG pCO2 POC ABG pO2 Sodium Potassium Chloride Carbon Dioxide BUN Creatinine Glucose POC Glucose 155 H Lactic Acid Calcium Ionized Calcium Phosphorus Magnesium ALT Alkaline Phosphatase Total Creatine Kinase CK-MB (CK-2) Troponin T C-Reactive Protein Total Protein Albumin Urine WBC (Auto) 27.0 H Urine Creatinine Salicylates Miscellaneous Test Crossmatch 05/12/17 05/12/17 05/12/17 05:00 08:28 11:28 WBC RBC Hgb Hct RDW Plt Count Seg Neuts % (Manual) Lymphocytes % (Manual) Monocytes % (Manual) Nucleated RBC % Seg Neutrophils # Man Lymphocytes # (Manual) Monocytes # (Manual) Eosinophils # (Manual) PT INR APTT D-Dimer POC ABG pH POC ABG pCO2 POC ABG pO2 Sodium Potassium Chloride 111.7 H Carbon Dioxide BUN 53 H Creatinine 2.8 H Glucose 102 H POC Glucose 130 H 171 H Lactic Acid Calcium 6.9 L Ionized Calcium Phosphorus Magnesium ALT < 5 L Alkaline Phosphatase 25 L Total Creatine Kinase CK-MB (CK-2) Troponin T C-Reactive Protein Total Protein 3.3 L Albumin 1.7 L Urine WBC (Auto) Urine Creatinine Salicylates Miscellaneous Test Crossmatch 05/12/17 05/13/17 05/13/17 22:20 06:54 06:54 WBC 20.8 H RBC 3.17 L Hgb 9.2 L Hct 28.9 L RDW 17.7 H Plt Count Seg Neuts % (Manual) 93.0 H Lymphocytes % (Manual) 1.0 L Monocytes % (Manual) Nucleated RBC % Seg Neutrophils # Man 19.3 H Lymphocytes # (Manual) 0.2 L Monocytes # (Manual) Eosinophils # (Manual) 0.6 H PT INR APTT D-Dimer POC ABG pH POC ABG pCO2 POC ABG pO2 Sodium Potassium 3.3 L Chloride 110.0 H Carbon Dioxide 20 L BUN 48 H Creatinine 2.8 H Glucose 119 H POC Glucose 179 H Lactic Acid Calcium 7.4 L Ionized Calcium Phosphorus Magnesium ALT Alkaline Phosphatase Total Creatine Kinase CK-MB (CK-2) Troponin T C-Reactive Protein Total Protein Albumin Urine WBC (Auto) Urine Creatinine Salicylates Miscellaneous Test Crossmatch 05/13/17 05/13/17 05/13/17 07:35 12:52 23:32 WBC RBC Hgb Hct RDW Plt Count Seg Neuts % (Manual) Lymphocytes % (Manual) Monocytes % (Manual) Nucleated RBC % Seg Neutrophils # Man Lymphocytes # (Manual) Monocytes # (Manual) Eosinophils # (Manual) PT INR APTT D-Dimer POC ABG pH POC ABG pCO2 POC ABG pO2 Sodium Potassium Chloride Carbon Dioxide BUN Creatinine Glucose POC Glucose 139 H 159 H 179 H Lactic Acid Calcium Ionized Calcium Phosphorus Magnesium ALT Alkaline Phosphatase Total Creatine Kinase CK-MB (CK-2) Troponin T C-Reactive Protein Total Protein Albumin Urine WBC (Auto) Urine Creatinine Salicylates Miscellaneous Test Crossmatch 05/14/17 05/14/17 05/14/17 04:00 05:00 07:30 WBC 19.3 H RBC 3.16 L Hgb 9.1 L Hct 29.1 L RDW 17.9 H Plt Count Seg Neuts % (Manual) 87.0 H Lymphocytes % (Manual) 2.0 L Monocytes % (Manual) Nucleated RBC % Seg Neutrophils # Man 16.8 H Lymphocytes # (Manual) 0.4 L Monocytes # (Manual) 1.0 H Eosinophils # (Manual) 0.6 H PT INR APTT D-Dimer POC ABG pH POC ABG pCO2 POC ABG pO2 Sodium 146 H Potassium Chloride 114.7 H Carbon Dioxide 19 L BUN 43 H Creatinine 2.5 H Glucose POC Glucose 110 H Lactic Acid Calcium 7.5 L Ionized Calcium Phosphorus Magnesium ALT Alkaline Phosphatase Total Creatine Kinase CK-MB (CK-2) Troponin T C-Reactive Protein Total Protein Albumin Urine WBC (Auto) Urine Creatinine Salicylates Miscellaneous Test Crossmatch 05/14/17 05/14/17 05/14/17 11:43 15:44 20:10 WBC RBC Hgb Hct RDW Plt Count Seg Neuts % (Manual) Lymphocytes % (Manual) Monocytes % (Manual) Nucleated RBC % Seg Neutrophils # Man Lymphocytes # (Manual) Monocytes # (Manual) Eosinophils # (Manual) PT INR APTT D-Dimer POC ABG pH POC ABG pCO2 POC ABG pO2 Sodium Potassium Chloride Carbon Dioxide BUN Creatinine Glucose POC Glucose 169 H 201 H 223 H Lactic Acid Calcium Ionized Calcium Phosphorus Magnesium ALT Alkaline Phosphatase Total Creatine Kinase CK-MB (CK-2) Troponin T C-Reactive Protein Total Protein Albumin Urine WBC (Auto) Urine Creatinine Salicylates Miscellaneous Test Crossmatch 05/15/17 05/15/17 05/15/17 06:10 08:50 12:57 WBC RBC Hgb Hct RDW Plt Count Seg Neuts % (Manual) Lymphocytes % (Manual) Monocytes % (Manual) Nucleated RBC % Seg Neutrophils # Man Lymphocytes # (Manual) Monocytes # (Manual) Eosinophils # (Manual) PT INR APTT D-Dimer POC ABG pH POC ABG pCO2 POC ABG pO2 Sodium Potassium Chloride 113.6 H Carbon Dioxide 18 L BUN 43 H Creatinine 2.7 H Glucose 123 H POC Glucose 204 H 127 H Lactic Acid Calcium 7.2 L Ionized Calcium Phosphorus Magnesium ALT Alkaline Phosphatase Total Creatine Kinase CK-MB (CK-2) Troponin T C-Reactive Protein Total Protein Albumin Urine WBC (Auto) Urine Creatinine Salicylates Miscellaneous Test Crossmatch 05/15/17 05/15/17 05/15/17 17:43 21:29 23:51 WBC RBC Hgb Hct RDW Plt Count Seg Neuts % (Manual) Lymphocytes % (Manual) Monocytes % (Manual) Nucleated RBC % Seg Neutrophils # Man Lymphocytes # (Manual) Monocytes # (Manual) Eosinophils # (Manual) PT INR APTT D-Dimer POC ABG pH 6.983 L POC ABG pCO2 67.5 H POC ABG pO2 Sodium Potassium Chloride Carbon Dioxide BUN Creatinine Glucose POC Glucose 121 H 129 H Lactic Acid Calcium Ionized Calcium Phosphorus Magnesium ALT Alkaline Phosphatase Total Creatine Kinase CK-MB (CK-2) Troponin T C-Reactive Protein Total Protein Albumin Urine WBC (Auto) Urine Creatinine Salicylates Miscellaneous Test Crossmatch 05/16/17 05/16/17 05/16/17 00:15 06:00 07:46 WBC RBC Hgb Hct RDW Plt Count Seg Neuts % (Manual) Lymphocytes % (Manual) Monocytes % (Manual) Nucleated RBC % Seg Neutrophils # Man Lymphocytes # (Manual) Monocytes # (Manual) Eosinophils # (Manual) PT INR APTT D-Dimer POC ABG pH POC ABG pCO2 POC ABG pO2 Sodium Potassium Chloride 114.2 H Carbon Dioxide 17 L BUN 44 H Creatinine 3.3 H Glucose 118 H POC Glucose 135 H Lactic Acid 0.60 L Calcium 7.5 L Ionized Calcium Phosphorus Magnesium ALT Alkaline Phosphatase Total Creatine Kinase CK-MB (CK-2) Troponin T C-Reactive Protein Total Protein Albumin Urine WBC (Auto) Urine Creatinine Salicylates Miscellaneous Test Crossmatch 05/16/17 05/16/17 05/16/17 09:38 10:20 10:20 WBC 18.6 H RBC 3.08 L Hgb 9.0 L Hct 29.0 L RDW 18.8 H Plt Count Seg Neuts % (Manual) Lymphocytes % (Manual) 5.0 L Monocytes % (Manual) Nucleated RBC % Seg Neutrophils # Man 11.3 H Lymphocytes # (Manual) 0.9 L Monocytes # (Manual) 1.3 H Eosinophils # (Manual) PT INR APTT D-Dimer POC ABG pH 7.081 L POC ABG pCO2 46.3 H POC ABG pO2 107 H Sodium Potassium Chloride 114.9 H Carbon Dioxide 14 L BUN 44 H Creatinine 3.0 H Glucose 115 H POC Glucose Lactic Acid Calcium 7.3 L Ionized Calcium Phosphorus 5.40 H Magnesium ALT < 5 L Alkaline Phosphatase 17 L Total Creatine Kinase CK-MB (CK-2) Troponin T C-Reactive Protein Total Protein 4.2 L D Albumin 2.9 L Urine WBC (Auto) Urine Creatinine Salicylates Miscellaneous Test Crossmatch 05/17/17 05/17/17 05/17/17 03:44 04:00 05:00 WBC 21.9 H RBC 2.89 L Hgb 8.3 L Hct 26.4 L RDW 18.2 H Plt Count Seg Neuts % (Manual) Lymphocytes % (Manual) 7.0 L Monocytes % (Manual) Nucleated RBC % Seg Neutrophils # Man 15.3 H Lymphocytes # (Manual) Monocytes # (Manual) 1.5 H Eosinophils # (Manual) PT INR APTT D-Dimer POC ABG pH 7.199 L POC ABG pCO2 POC ABG pO2 107 H Sodium Potassium Chloride 111.7 H Carbon Dioxide 16 L BUN 43 H Creatinine 3.4 H Glucose POC Glucose Lactic Acid Calcium 7.3 L Ionized Calcium Phosphorus Magnesium ALT Alkaline Phosphatase Total Creatine Kinase CK-MB (CK-2) Troponin T C-Reactive Protein Total Protein Albumin Urine WBC (Auto) Urine Creatinine Salicylates Miscellaneous Test Crossmatch 05/17/17 05/17/17 05/18/17 05:00 12:20 04:43 WBC RBC Hgb Hct RDW Plt Count Seg Neuts % (Manual) Lymphocytes % (Manual) Monocytes % (Manual) Nucleated RBC % Seg Neutrophils # Man Lymphocytes # (Manual) Monocytes # (Manual) Eosinophils # (Manual) PT INR APTT D-Dimer POC ABG pH 7.251 L POC ABG pCO2 POC ABG pO2 126 H Sodium Potassium Chloride Carbon Dioxide BUN Creatinine Glucose POC Glucose Lactic Acid Calcium Ionized Calcium Phosphorus Magnesium ALT Alkaline Phosphatase Total Creatine Kinase CK-MB (CK-2) Troponin T C-Reactive Protein 2.30 H Total Protein Albumin Urine WBC (Auto) Urine Creatinine Salicylates Miscellaneous Test Flexitest 1 H Crossmatch 05/18/17 05/18/17 05/18/17 14:46 21:30 Unknown WBC RBC Hgb Hct RDW Plt Count Seg Neuts % (Manual) Lymphocytes % (Manual) Monocytes % (Manual) Nucleated RBC % Seg Neutrophils # Man Lymphocytes # (Manual) Monocytes # (Manual) Eosinophils # (Manual) PT INR APTT D-Dimer POC ABG pH 7.227 L POC ABG pCO2 POC ABG pO2 126 H Sodium Potassium 3.2 L Chloride 108.9 H Carbon Dioxide 19 L BUN 44 H Creatinine 3.6 H Glucose POC Glucose 206 H Lactic Acid Calcium 7.3 L Ionized Calcium Phosphorus Magnesium ALT Alkaline Phosphatase Total Creatine Kinase CK-MB (CK-2) Troponin T C-Reactive Protein Total Protein Albumin Urine WBC (Auto) Urine Creatinine Salicylates Miscellaneous Test Crossmatch 05/18/17 05/19/1705/19/17 Unknown 05:26 06:00 WBC 25.2 H RBC 2.76 L Hgb 8.0 L Hct 24.9 L RDW 17.7 H Plt Count Seg Neuts % (Manual) 86.0 H Lymphocytes % (Manual) 1.0 L Monocytes % (Manual) Nucleated RBC % Seg Neutrophils # Man 21.7 H Lymphocytes # (Manual) 0.3 L Monocytes # (Manual) 1.5 H Eosinophils # (Manual) PT INR APTT D-Dimer POC ABG pH 7.216 L POC ABG pCO2 47.0 H POC ABG pO2 Sodium Potassium Chloride Carbon Dioxide BUN Creatinine Glucose POC Glucose 173 H Lactic Acid Calcium Ionized Calcium Phosphorus Magnesium ALT Alkaline Phosphatase Total Creatine Kinase CK-MB (CK-2) Troponin T C-Reactive Protein Total Protein Albumin Urine WBC (Auto) Urine Creatinine Salicylates Miscellaneous Test Crossmatch 05/19/17 05/19/17 05/19/17 11:47 18:04 23:54 WBC RBC Hgb Hct RDW Plt Count Seg Neuts % (Manual) Lymphocytes % (Manual) Monocytes % (Manual) Nucleated RBC % Seg Neutrophils # Man Lymphocytes # (Manual) Monocytes # (Manual) Eosinophils # (Manual) PT INR APTT D-Dimer POC ABG pH POC ABG pCO2 POC ABG pO2 Sodium Potassium Chloride Carbon Dioxide BUN Creatinine Glucose POC Glucose 203 H 178 H Lactic Acid Calcium Ionized Calcium Phosphorus Magnesium ALT Alkaline Phosphatase Total Creatine Kinase CK-MB (CK-2) Troponin T C-Reactive Protein Total Protein Albumin Urine WBC (Auto) 78.0 H Urine Creatinine Salicylates Miscellaneous Test Crossmatch 05/19/17 05/19/17 05/20/17 Unknown Unknown 05:03 WBC 36.5 H RBC 2.71 L Hgb 7.7 L Hct 24.3 L RDW 18.3 H Plt Count Seg Neuts % (Manual) 79.0 H Lymphocytes % (Manual) 3.0 L Monocytes % (Manual) Nucleated RBC % Seg Neutrophils # Man 28.8 H Lymphocytes # (Manual) 1.1 L Monocytes # (Manual) 2.6 H Eosinophils # (Manual) PT INR APTT D-Dimer POC ABG pH 7.322 L POC ABG pCO2 46.3 H POC ABG pO2 160 H Sodium Potassium 3.5 L Chloride 108.1 H Carbon Dioxide 20 L BUN 36 H Creatinine 3.1 H Glucose 165 H POC Glucose Lactic Acid Calcium 7.7 L Ionized Calcium Phosphorus Magnesium ALT Alkaline Phosphatase Total Creatine Kinase CK-MB (CK-2) Troponin T C-Reactive Protein Total Protein Albumin Urine WBC (Auto) Urine Creatinine Salicylates Miscellaneous Test Crossmatch 05/20/17 05/20/17 05/20/17 05:30 05:30 05:44 WBC 44.4 H* RBC 2.65 L Hgb 7.6 L Hct 23.7 L RDW 18.0 H Plt Count Seg Neuts % (Manual) Lymphocytes % (Manual) 7.0 L Monocytes % (Manual) 12.0 H Nucleated RBC % Seg Neutrophils # Man 22.2 H Lymphocytes # (Manual) Monocytes # (Manual) 5.3 H Eosinophils # (Manual) PT INR APTT D-Dimer POC ABG pH POC ABG pCO2 POC ABG pO2 Sodium Potassium 3.5 L Chloride Carbon Dioxide BUN 23 H Creatinine 2.1 H Glucose 167 H POC Glucose 182 H Lactic Acid Calcium 7.7 L Ionized Calcium Phosphorus Magnesium 1.40 L ALT Alkaline Phosphatase Total Creatine Kinase CK-MB (CK-2) Troponin T C-Reactive Protein Total Protein Albumin Urine WBC (Auto) Urine Creatinine Salicylates Miscellaneous Test Crossmatch 05/20/17 05/20/17 05/20/17 11:59 13:46 13:46 WBC RBC Hgb Hct RDW Plt Count Seg Neuts % (Manual) Lymphocytes % (Manual) Monocytes % (Manual) Nucleated RBC % Seg Neutrophils # Man Lymphocytes # (Manual) Monocytes # (Manual) Eosinophils # (Manual) PT 22.6 H INR 1.89 H APTT 44.6 H D-Dimer POC ABG pH POC ABG pCO2 POC ABG pO2 Sodium Potassium Chloride Carbon Dioxide BUN Creatinine Glucose POC Glucose 162 H Lactic Acid Calcium Ionized Calcium Phosphorus Magnesium ALT Alkaline Phosphatase Total Creatine Kinase CK-MB (CK-2) Troponin T C-Reactive Protein Total Protein Albumin Urine WBC (Auto) Urine Creatinine Salicylates Miscellaneous Test Crossmatch See Detail 05/20/17 05/20/17 05/20/17 17:36 20:00 20:44 WBC 38.3 H RBC 3.60 L Hgb Hct RDW 15.8 H Plt Count Seg Neuts % (Manual) Lymphocytes % (Manual) Monocytes % (Manual) Nucleated RBC % Seg Neutrophils # Man Lymphocytes # (Manual) Monocytes # (Manual) Eosinophils # (Manual) PT 21.4 H INR 1.76 H APTT 172.2 H* D-Dimer POC ABG pH POC ABG pCO2 POC ABG pO2 Sodium Potassium Chloride Carbon Dioxide BUN Creatinine Glucose POC Glucose 144 H Lactic Acid Calcium Ionized Calcium Phosphorus Magnesium ALT Alkaline Phosphatase Total Creatine Kinase CK-MB (CK-2) Troponin T C-Reactive Protein Total Protein Albumin Urine WBC (Auto) Urine Creatinine Salicylates Miscellaneous Test Crossmatch 05/20/17 05/20/17 05/21/17 22:20 23:37 05:20 WBC RBC Hgb Hct RDW Plt Count Seg Neuts % (Manual) Lymphocytes % (Manual) Monocytes % (Manual) Nucleated RBC % Seg Neutrophils # Man Lymphocytes # (Manual) Monocytes # (Manual) Eosinophils # (Manual) PT INR APTT 42.8 H D-Dimer POC ABG pH POC ABG pCO2 POC ABG pO2 Sodium Potassium 3.5 L Chloride Carbon Dioxide BUN Creatinine 1.5 H Glucose 106 H POC Glucose 113 H Lactic Acid Calcium 7.7 L Ionized Calcium Phosphorus Magnesium ALT Alkaline Phosphatase Total Creatine Kinase CK-MB (CK-2) Troponin T C-Reactive Protein Total Protein Albumin Urine WBC (Auto) Urine Creatinine Salicylates Miscellaneous Test Crossmatch 05/21/17 05/21/17 05/21/17 05:20 05:20 05:31 WBC 31.6 H RBC Hgb Hct RDW 15.8 H Plt Count Seg Neuts % (Manual) 90.0 H Lymphocytes % (Manual) 3.0 L Monocytes % (Manual) Nucleated RBC % Seg Neutrophils # Man 28.4 H Lymphocytes # (Manual) 0.9 L Monocytes # (Manual) Eosinophils # (Manual) 1.3 H PT 19.1 H INR 1.53 H APTT 37.9 H D-Dimer POC ABG pH POC ABG pCO2 POC ABG pO2 Sodium Potassium Chloride Carbon Dioxide BUN Creatinine Glucose POC Glucose 126 H Lactic Acid Calcium Ionized Calcium Phosphorus Magnesium ALT Alkaline Phosphatase Total Creatine Kinase CK-MB (CK-2) Troponin T C-Reactive Protein Total Protein Albumin Urine WBC (Auto) Urine Creatinine Salicylates Miscellaneous Test Crossmatch 05/21/17 05/21/17 05/21/17 13:00 13:00 13:00 WBC 32.9 H RBC 3.09 L Hgb 9.0 L Hct 27.6 L RDW 16.3 H Plt Count Seg Neuts % (Manual) 86.0 H Lymphocytes % (Manual) 2.0 L Monocytes % (Manual) Nucleated RBC % 2.0 H Seg Neutrophils # Man 28.3 H Lymphocytes # (Manual) 0.7 L Monocytes # (Manual) Eosinophils # (Manual) PT 19.7 H INR 1.59 H APTT 41.1 H D-Dimer POC ABG pH POC ABG pCO2 POC ABG pO2 Sodium Potassium 3.3 L Chloride 108.4 H Carbon Dioxide 20 L BUN Creatinine 1.4 H Glucose 119 H POC Glucose Lactic Acid Calcium 6.5 L D Ionized Calcium Phosphorus Magnesium ALT Alkaline Phosphatase 28 L Total Creatine Kinase CK-MB (CK-2) Troponin T C-Reactive Protein Total Protein 3.2 L Albumin 1.7 L Urine WBC (Auto) Urine Creatinine Salicylates Miscellaneous Test Crossmatch 05/21/17 05/21/17 05/22/17 18:15 21:00 00:02 WBC 42.4 H* RBC 2.85 L Hgb 8.2 L Hct 25.9 L RDW 16.3 H Plt Count Seg Neuts % (Manual) 95.0 H Lymphocytes % (Manual) 3.0 L Monocytes % (Manual) Nucleated RBC % Seg Neutrophils # Man 40.3 H Lymphocytes # (Manual) Monocytes # (Manual) Eosinophils # (Manual) PT INR APTT D-Dimer POC ABG pH POC ABG pCO2 POC ABG pO2 Sodium Potassium Chloride Carbon Dioxide BUN Creatinine Glucose POC Glucose 149 H 155 H Lactic Acid Calcium Ionized Calcium Phosphorus Magnesium ALT Alkaline Phosphatase Total Creatine Kinase CK-MB (CK-2) Troponin T C-Reactive Protein Total Protein Albumin Urine WBC (Auto) Urine Creatinine Salicylates Miscellaneous Test Crossmatch 05/22/17 05/22/17 05/22/17 04:50 04:50 04:50 WBC 41.8 H* RBC 2.65 L Hgb 7.8 L Hct 24.1 L RDW 16.5 H Plt Count Seg Neuts % (Manual) 73.0 H Lymphocytes % (Manual) 4.0 L Monocytes % (Manual) Nucleated RBC % Seg Neutrophils # Man 30.5 H Lymphocytes # (Manual) Monocytes # (Manual) 1.3 H Eosinophils # (Manual) PT INR APTT D-Dimer POC ABG pH POC ABG pCO2 POC ABG pO2 Sodium Potassium Chloride 109.4 H Carbon Dioxide 18 L BUN Creatinine 1.8 H Glucose 164 H POC Glucose Lactic Acid Calcium 6.6 L Ionized Calcium Phosphorus Magnesium 1.40 L ALT Alkaline Phosphatase 33 L Total Creatine Kinase CK-MB (CK-2) Troponin T C-Reactive Protein Total Protein 3.6 L Albumin 2.0 L Urine WBC (Auto) Urine Creatinine Salicylates Miscellaneous Test Crossmatch 05/22/17 05/22/17 05/22/17 04:50 05:39 05:46 WBC RBC Hgb Hct RDW Plt Count Seg Neuts % (Manual) Lymphocytes % (Manual) Monocytes % (Manual) Nucleated RBC % Seg Neutrophils # Man Lymphocytes # (Manual) Monocytes # (Manual) Eosinophils # (Manual) PT 21.3 H INR 1.75 H APTT 39.4 H D-Dimer POC ABG pH 7.225 L POC ABG pCO2 45.3 H POC ABG pO2 Sodium Potassium Chloride Carbon Dioxide BUN Creatinine Glucose POC Glucose 200 H Lactic Acid Calcium Ionized Calcium Phosphorus Magnesium ALT Alkaline Phosphatase Total Creatine Kinase CK-MB (CK-2) Troponin T C-Reactive Protein Total Protein Albumin Urine WBC (Auto) Urine Creatinine Salicylates Miscellaneous Test Crossmatch 05/22/17 05/22/17 05/22/17 10:32 11:41 12:45 WBC RBC Hgb 7.4 L Hct 23.5 L RDW Plt Count Seg Neuts % (Manual) Lymphocytes % (Manual) Monocytes % (Manual) Nucleated RBC % Seg Neutrophils # Man Lymphocytes # (Manual) Monocytes # (Manual) Eosinophils # (Manual) PT INR APTT D-Dimer POC ABG pH 7.317 L POC ABG pCO2 POC ABG pO2 Sodium Potassium Chloride Carbon Dioxide BUN Creatinine Glucose POC Glucose 169 H Lactic Acid Calcium Ionized Calcium Phosphorus Magnesium ALT Alkaline Phosphatase Total Creatine Kinase CK-MB (CK-2) Troponin T C-Reactive Protein Total Protein Albumin Urine WBC (Auto) Urine Creatinine Salicylates Miscellaneous Test Crossmatch Chest x-ray: report reviewed, image reviewed
[2017-05-22 23:18] LABS: Hematocrit 27.8 % (30.3-42.9); Hemoglobin 8.8 gm/dl (10.1-14.3)
[2017-05-23] MEDS: FLAGYL 500 MG/100 ML 500 MG/100 ML BAG IV SCH ×4 (00:41→19:47)
[2017-05-23] MEDS: MORPHINE IV PRN ×3 (00:44→21:12)
[2017-05-23] MEDS: NOVOLOG SUB-Q SCH ×4 (05:52→18:34)
[2017-05-23 06:05] LABS: Hematocrit 27.4 % (30.3-42.9); Hemoglobin 8.9 gm/dl (10.1-14.3); Mean Corpuscular HGB Conc 33 % (30-34); Mean Corpuscular Hemoglobin 29 pg (28-32); Mean Corpuscular Volume 89 fl (79-97); Platelet Count 197 K/mm3 (140-440); Red Blood Count 3.06 M/mm3 (3.65-5.03); Red Cell Distribution Width 16.7 % (13.2-15.2)
[2017-05-23 06:09] LABS: White Blood Count 40.9 K/mm3 (4.5-11.0)
[2017-05-23 06:13] LABS: ISTAT Base Excess -9; ISTAT HCO3 18.9; ISTAT PCO2 44.1 (35-45); ISTAT PO2 92 (80-105); ISTAT SO2 96; ISTAT TCO2 20
[2017-05-23 06:23] LABS: Chloride 110.6 mmol/L (98-107); Potassium 3.8 mmol/L (3.6-5.0)
[2017-05-23 07:30] LABS: Basophils % (Manual) 0 % (0.0-1.8); Blastocytes % (Manual) 0 %
[2017-05-23 07:31] LABS: Anisocytosis 1+; Diff Status Complete; Elliptocytes 1+; Microcytosis 1+; Polychromasia 1+; Tear Drop Cells Few
--- NOTE | 2017-05-23 08:26 | Progress Note ---
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 difficile colitis/severe sepsis --Septic shock; pressor dependent ,on Levophed,monitor blood pressures --Sinus tachycardia; secondary to underlying sepsis hypotension, significantly improved --Acute hypoxic respiratory failure; on vent,sedation, nebulizers, wean as tolerated and extubate, pulmonary --Hypokalemia : Replace per protocol monitor levels --Severe sepsis; secondary to colitis, possible pneumonia, ID added meropenem --Acute kidney injury: worsening Creatinine , hemodialysis as needed per renal --UTI; s/p 3 days antibiotics per ID --Metabolic acidosis; hemodialysis as needed --COPD with exacerbation; on vent ,nebulizers and IV antibiotics --Severe hypoalbuminemia/protein calorie Malnutrition; nutritional supplements and supportive care --DVT prophylaxis; heparin renal dose --Full CODE STATUS Line of care discussed with the patient's family at the bedside as well as the nurse Closely monitor the patient and adjust management as needed 32 minutes critical care time The high probability of a clinically significant, sudden or life threatening deterioration of the [pulmonary ,GI,CV,ID and renal systems ] re and renalquired my full and direct attention, intervention and personal management. The aggregate critical care time was [32 ] minutes. This time is in addition to time spent performing reported procedures but includes the following: [x] Data Review and interpretation [x] Patient assessment and monitoring of vital signs [x] Documentation, counseling [x] Medication orders and management History Interval history: Patient seen and evaluated Intubated on ventilatory support> 96 hrs Pressor dependent Hospitalist Physical - Constitutional Vitals: Temp Pulse Resp BP Pulse Ox 98.4 F 86 23 105/54 99 05/23/17 03:20 05/23/17 06:30 05/23/17 06:30 05/23/17 06:30 05/23/17 06:30 General appearance: Present: mild distress, well-nourished, other (intubatd and vent supported) - EENT Eyes: Present: PERRL, EOM intact - Neck Neck: Present: supple, normal ROM - Respiratory Respiratory effort: normal Respiratory: bilateral: diminished, rhonchi, negative: rales, wheezing - Cardiovascular Rhythm: regular Heart Sounds: Present: S1 & S2 - Extremities Extremities: no ischemia Extremity abnormal: edema - Abdominal General gastrointestinal: soft, non-tender, non-distended, absent bowel sounds, other (ostomy in place) - Integumentary Integumentary: Present: clear, warm - Psychiatric Psychiatric: other (intubated and sedated in) - Neurologic Neurologic: other (intubated and sedated) Results - Labs CBC & Chem 7: 05/23/17 05:15 05/23/17 05:15 Labs: Laboratory Last Values WBC 40.9 K/mm3 (4.5-11.0) H* 05/23/17 05:15 RBC 3.06 M/mm3 (3.65-5.03) L 05/23/17 05:15 Hgb 8.9 gm/dl (10.1-14.3) L 05/23/17 05:15 Hct 27.4 % (30.3-42.9) L 05/23/17 05:15 MCV 89 fl (79-97) 05/23/17 05:15 MCH 29 pg (28-32) 05/23/17 05:15 MCHC 33 % (30-34) 05/23/17 05:15 RDW 16.7 % (13.2-15.2) H 05/23/17 05:15 Plt Count 197 K/mm3 (140-440) 05/23/17 05:15 [place] % (Auto) % (0.0-7.3) 05/22/17 04:50 Eos % (Auto) % (0.0-4.3) 05/22/17 04:50 [place] # K/mm3 (0.0-0.8) 05/22/17 04:50 Eos # K/mm3 (0.0-0.4) 05/22/17 04:50 Baso # 0.0 K/mm3 (0.0-0.1) 05/22/17 04:50 Add Manual Diff Complete 05/23/17 05:15 Total Counted 100 05/23/17 05:15 Seg Neutrophils % Basket Braider 05/23/17 05:15 Seg Neuts % (Manual) 93.0 % (40.0-70.0) H 05/23/17 05:15 Band Neutrophils % 1.0 % 05/23/17 05:15 Lymphocytes % (Manual) 3.0 % (13.4-35.0) L 05/23/17 05:15 Reactive Lymphs % (Man) 0 % 05/23/17 05:15 Monocytes % (Manual) 1.0 % (0.0-7.3) 05/23/17 05:15 Eosinophils % (Manual) 1.0 % (0.0-4.3) 05/23/17 05:15 Basophils % (Manual) 0 % (0.0-1.8) 05/23/17 05:15 Metamyelocytes % 0 % 05/23/17 05:15 Myelocytes % 1.0 % 05/23/17 05:15 Promyelocytes % 0 % 05/23/17 05:15 Blast Cells % 0 % 05/23/17 05:15 Nucleated RBC % Not Reportable 05/23/17 05:15 Seg Neutrophils # K/mm3 (1.8-7.7) 05/22/17 04:50 Seg Neutrophils # Man 38.0 K/mm3 (1.8-7.7) H 05/23/17 05:15 Band Neutrophils # 0.4 K/mm3 05/23/17 05:15 Lymphocytes # (Manual) 1.2 K/mm3 (1.2-5.4) 05/23/17 05:15 Abs React Lymphs (Man) 0.0 K/mm3 05/23/17 05:15 Monocytes # (Manual) 0.4 K/mm3 (0.0-0.8) 05/23/17 05:15 Eosinophils # (Manual) 0.4 K/mm3 (0.0-0.4) 05/23/17 05:15 Basophils # (Manual) 0.0 K/mm3 (0.0-0.1) 05/23/17 05:15 Metamyelocytes # 0.0 K/mm3 05/23/17 05:15 Myelocytes # 0.4 K/mm3 05/23/17 05:15 Promyelocytes # 0.0 K/mm3 05/23/17 05:15 Blast Cells # 0.0 K/mm3 05/23/17 05:15 WBC Morphology Not Reportable 05/23/17 05:15 Hypersegmented Neuts Not Reportable 05/23/17 05:15 Hyposegmented Neuts Not Reportable 05/23/17 05:15 Hypogranular Neuts Not Reportable 05/23/17 05:15 Smudge Cells Not Reportable 05/23/17 05:15 Toxic Granulation Not Reportable 05/23/17 05:15 Toxic Vacuolation Not Reportable 05/23/17 05:15 Dohle Bodies Not Reportable 05/23/17 05:15 Pelger-Huet Anomaly Not Reportable 05/23/17 05:15 Neisha Rods Not Reportable 05/23/17 05:15 Platelet Estimate Appears normal 05/23/17 05:15 Clumped Platelets Not Reportable 05/23/17 05:15 Plt Clumps, EDTA Not Reportable 05/23/17 05:15 Large Platelets Not Reportable 05/23/17 05:15 Giant Platelets Not Reportable 05/23/17 05:15 Platelet Satelliting Not Reportable 05/23/17 05:15 Plt Morphology Comment Not Reportable 05/23/17 05:15 RBC Morphology Not Reportable 05/23/17 05:15 Dimorphic RBCs Not Reportable 05/23/17 05:15 Polychromasia 1+ 05/23/17 05:15 Hypochromasia Not Reportable 05/23/17 05:15 Poikilocytosis Not Reportable 05/23/17 05:15 Anisocytosis 1+ 05/23/17 05:15 Microcytosis 1+ 05/23/17 05:15 Macrocytosis Not Reportable 05/23/17 05:15 Spherocytes Not Reportable 05/23/17 05:15 Pappenheimer Bodies Not Reportable 05/23/17 05:15 Sickle Cells Not Reportable 05/23/17 05:15 Target Cells Not Reportable 05/23/17 05:15 Tear Drop Cells Few 05/23/17 05:15 Ovalocytes Not Reportable 05/23/17 05:15 Stomatocytes Few 05/21/17 05:20 Helmet Cells Not Reportable 05/23/17 05:15 Frankel-Shubert Bodies Not Reportable 05/23/17 05:15 Finley Rings Not Reportable 05/23/17 05:15 Damián Cells Not Reportable 05/23/17 05:15 Bite Cells Not Reportable 05/23/17 05:15 Crenated Cell Not Reportable 05/23/17 05:15 Elliptocytes 1+ 05/23/17 05:15 Acanthocytes (Spur) Not Reportable 05/23/17 05:15 Rouleaux Not Reportable 05/23/17 05:15 Hemoglobin C Crystals Not Reportable 05/23/17 05:15 Schistocytes Not Reportable 05/23/17 05:15 Malaria parasites Not Reportable 05/23/17 05:15 Herve Bodies Not Reportable 05/23/17 05:15 Hem Pathologist Commnt No 05/23/17 05:15 PT 21.3 Sec. (12.2-14.9) H 05/22/17 04:50 INR 1.75 (0.87-1.13) H 05/22/17 04:50 APTT 39.4 Sec. (24.2-36.6) H 05/22/17 04:50 D-Dimer 8441.57 ng/mlDDU (0-234) H 05/04/17 Unknown POC ABG pH 7.240 (7.35-7.45) L 05/23/17 06:09 POC ABG pCO2 44.1 (35-45) 05/23/17 06:09 POC ABG pO2 92 (80-105) 05/23/17 06:09 POC ABG HCO3 18.9 05/23/17 06:09 POC ABG Total CO2 20 05/23/17 06:09 POC ABG O2 Sat 96 05/23/17 06:09 POC ABG Base Excess -9 05/23/17 06:09 FiO2 30 % 05/23/17 06:09 Sodium 142 mmol/L (137-145) 05/23/17 05:15 Potassium 3.8 mmol/L (3.6-5.0) 05/23/17 05:15 Chloride 110.6 mmol/L (98-107) H 05/23/17 05:15 Carbon Dioxide 19 mmol/L (22-30) L 05/23/17 05:15 Anion Gap 16 mmol/L 05/23/17 05:15 BUN 18 mg/dL (7-17) H 05/23/17 05:15 Creatinine 1.9 mg/dL (0.7-1.2) H 05/23/17 05:15 Estimated GFR 32 ml/min 05/23/17 05:15 BUN/Creatinine Ratio 9 % 05/23/17 05:15 Glucose 102 mg/dL (65-100) H 05/23/17 05:15 POC Glucose 124 (70-105) H 05/23/17 05:23 Lactic Acid 0.60 mmol/L (0.7-2.0) L 05/16/17 00:15 Calcium 7.0 mg/dL (8.4-10.2) L 05/23/17 05:15 Ionized Calcium 3.5 mg/dL (4.8-5.6) L 05/05/17 17:45 Phosphorus 5.40 mg/dL (2.5-4.5) H 05/16/17 10:20 Magnesium 1.80 mg/dL (1.7-2.3) 05/23/17 05:15 Total Bilirubin < 0.20 mg/dL (0.1-1.2) 05/22/17 04:50 AST 21 units/L (5-40) 05/22/17 04:50 ALT 11 units/L (7-56) 05/22/17 04:50 Alkaline Phosphatase 33 units/L (35-129) L 05/22/17 04:50 Total Creatine Kinase 346 units/L (30-135) H 05/05/17 05:20 CK-MB (CK-2) 8.2 ng/mL (0.0-4.0) H 05/05/17 05:20 CK-MB (CK-2) Rel Index 2.3 (0-4) 05/05/17 05:20 Troponin T 0.027 ng/mL (0.00-0.029) 05/05/17 05:20 C-Reactive Protein 2.30 mg/dL (0.00-1.30) H 05/17/17 05:00 Total Protein 3.6 g/dL (6.3-8.2) L 05/22/17 04:50 Albumin 2.0 g/dL (3.9-5) L 05/22/17 04:50 Albumin/Globulin Ratio 1.3 % 05/22/17 04:50 Triglycerides 149 mg/dL (2-149) 05/04/17 18:55 Cholesterol 185 mg/dL (50-199) 05/04/17 18:55 LDL Cholesterol Direct 103 mg/dL (50-130) 05/04/17 18:55 HDL Cholesterol 53 mg/dL (40-59) 05/04/17 18:55 Cholesterol/HDL Ratio 3.49 % 05/04/17 18:55 TSH 1.780 mlU/mL (0.270-4.200) 05/04/17 18:39 Urine Color Yellow (Yellow) 05/19/17 18:04 Urine Turbidity Clear (Clear) 05/19/17 18:04 Urine pH 5.0 (5.0-7.0) 05/19/17 18:04 Ur Specific [place] 1.014 (1.003-1.030) 05/19/17 18:04 Urine Protein 30 mg/dl mg/dL (Negative) 05/19/17 18:04 Urine Glucose (UA) Neg mg/dL (Negative) 05/19/17 18:04 Urine Ketones Neg mg/dL (Negative) 05/19/17 18:04 Urine Blood Mod (Negative) 05/19/17 18:04 Urine Nitrite Neg (Negative) 05/19/17 18:04 Urine Bilirubin Neg (Negative) 05/19/17 18:04 Urine Urobilinogen < 2.0 mg/dL (<2.0) 05/19/17 18:04 Ur Leukocyte Esterase Lg (Negative) 05/19/17 18:04 Urine WBC (Auto) 78.0 /HPF (0.0-6.0) H 05/19/17 18:04 Urine RBC (Auto) 90.0 /HPF (0.0-6.0) 05/19/17 18:04 U Epithel Cells (Auto) < 1.0 /HPF (0-13.0) 05/19/17 18:04 Urine Bacteria (Auto) 2+ /HPF (Negative) 05/19/17 18:04 Amorphous Crystals Few 05/11/17 17:50 Hyaline Casts 3 /LPF 05/19/17 18:04 Granular Casts 1 /LPF 05/19/17 18:04 Urine Mucus Few /HPF 05/19/17 18:04 Ur Yeast w Hyphae Few /HPF 05/19/17 18:04 Urine Yeast (Budding) 3+ /HPF 05/19/17 18:04 Urine Creatinine 28.0 mg/dL (0.1-20.0) H 05/05/17 Unknown Urine Sodium 129 mmol/L 05/05/17 Unknown Urine Potassium 3.67 mmol/L 05/05/17 Unknown Urine Chloride 115.6 mmolL (110-250) 05/05/17 Unknown Salicylates 0.3 mg/dL (2.8-20.0) L 05/04/17 18:39 Urine Opiates Screen Presumptive negative 05/04/17 02:20 Urine Methadone Screen Presumptive negative 05/04/17 02:20 Acetaminophen < 15.0 ug/mL (10.0-30.0) 05/04/17 18:39 Ur Barbiturates Screen Presumptive negative 05/04/17 02:20 Ur Phencyclidine Scrn Presumptive negative 05/04/17 02:20 Ur Amphetamines Screen Presumptive negative 05/04/17 02:20 U Benzodiazepines Scrn Presumptive negative 05/04/17 02:20 Urine Cocaine Screen Presumptive negative 05/04/17 02:20 U Marijuana (THC) Screen Presumptive negative 05/04/17 02:20 Drugs of Abuse Note Disclamer 05/04/17 02:20 Plasma/Serum Alcohol < 0.01 gm% (0-0.07) 05/04/17 18:39 Hepatitis A IgM Ab Non-reactive (NonReactive) 05/20/17 17:49 Hep Bs Antigen Non-reactive (Negative) 05/20/17 17:49 Hep B Core IgM Ab Non-reactive (NonReactive) 05/20/17 17:49 Hepatitis C Antibody Non-reactive (NonReactive) 05/20/17 17:49 Miscellaneous Test Flexitest 1 H 05/17/17 12:20 Blood Type AB POSITIVE 05/20/17 13:46 Antibody Screen Negative 05/20/17 13:46 Crossmatch See Detail 05/20/17 13:46
[2017-05-23] MEDS: PULMICORT IH SCH ×2 (08:39→20:00)
[2017-05-23] MEDS: BROVANA NEBU IH SCH ×2 (08:39→20:00)
[2017-05-23] MEDS: DUONEB *Not for PRN Use IH SCH ×2 (08:40→20:00)
[2017-05-23 09:09] LABS: ISTAT Base Excess -6; ISTAT PH 7.297 (7.35-7.45); ISTAT PO2 98 (80-105); ISTAT SO2 97; ISTAT TCO2 21
[2017-05-23] MEDS: FLORANEX PO SCH ×2 (09:18→14:15)
--- NOTE | 2017-05-23 09:55 | Progress Note ---
Assessment and Plan Impression * Acute renal failure. Most likely secondary to ATN * Respiratory failure * Septic shock * Anemia * C. difficile colitis * COPD Recommendations * Status post initiation of hemodialysis on 05/18/2017 * Patient remains oliguric and volume overloaded. Shall attempt dialysis today to remove fluid. She is also noted to be getting slowly acidotic . Patient remains on Levophed drip. * Status post colectomy 05/21/17 * Avoid Nephrotoxins * Adjust meds for GFR less than 10 * No evidence of renal recovery at this time. Subjective Date of service: 05/23/17 Principal diagnosis: Septic shock,C. diff colitis Interval history: Patient remains on the ventilator. Currently on 30% FiO2. Awake and alert. On 7 g of Levophed Objective - Vital Signs Vital signs: Vital Signs - 12hr 05/22/17 05/22/17 05/22/17 22:00 22:15 22:30 Temperature Pulse Rate 94 H 91 H 99 H Pulse Rate [ Anterior Bilateral Throughout] Respiratory 19 19 22 Rate Respiratory Rate [Anterior Bilateral Throughout] Blood Pressure 112/60 117/62 111/59 O2 Sat by Pulse 100 100 100 Oximetry 05/22/17 05/22/17 05/22/17 22:45 23:00 23:15 Temperature Pulse Rate 95 H 98 H 91 H Pulse Rate [ Anterior Bilateral Throughout] Respiratory 22 22 19 Rate Respiratory Rate [Anterior Bilateral Throughout] Blood Pressure 113/59 112/57 117/60 O2 Sat by Pulse 100 100 100 Oximetry 05/22/17 05/22/17 05/22/17 23:20 23:30 23:45 Temperature 98.8 F Pulse Rate 92 H 94 H Pulse Rate [ Anterior Bilateral Throughout] Respiratory 22 20 Rate Respiratory Rate [Anterior Bilateral Throughout] Blood Pressure 104/56 105/60 O2 Sat by Pulse 100 99 Oximetry 05/23/17 05/23/17 05/23/17 00:00 00:15 00:30 Temperature Pulse Rate 103 H 93 H 106 H Pulse Rate [ Anterior Bilateral Throughout] Respiratory 23 24 26 H Rate Respiratory Rate [Anterior Bilateral Throughout] Blood Pressure 100/48 103/52 95/63 O2 Sat by Pulse 100 100 100 Oximetry 05/23/17 05/23/17 05/23/17 00:45 01:00 01:15 Temperature Pulse Rate 93 H 91 H 96 H Pulse Rate [ Anterior Bilateral Throughout] Respiratory 20 20 19 Rate Respiratory Rate [Anterior Bilateral Throughout] Blood Pressure 97/69 105/54 112/59 O2 Sat by Pulse 98 100 100 Oximetry 05/23/17 05/23/17 05/23/17 01:30 01:45 02:00 Temperature Pulse Rate 90 90 89 Pulse Rate [ Anterior Bilateral Throughout] Respiratory 21 23 23 Rate Respiratory Rate [Anterior Bilateral Throughout] Blood Pressure 106/56 92/54 92/54 O2 Sat by Pulse 100 100 100 Oximetry 05/23/17 05/23/17 05/23/17 02:15 02:30 02:45 Temperature Pulse Rate 89 90 88 Pulse Rate [ Anterior Bilateral Throughout] Respiratory 22 22 20 Rate Respiratory Rate [Anterior Bilateral Throughout] Blood Pressure 102/59 103/60 99/55 O2 Sat by Pulse 100 100 100 Oximetry 05/23/17 05/23/17 05/23/17 03:00 03:15 03:20 Temperature 98.4 F Pulse Rate 90 88 Pulse Rate [ Anterior Bilateral Throughout] Respiratory 22 21 Rate Respiratory Rate [Anterior Bilateral Throughout] Blood Pressure 105/53 106/58 O2 Sat by Pulse 100 100 Oximetry 05/23/17 05/23/17 05/23/17 03:30 03:45 04:00 Temperature Pulse Rate 87 87 87 Pulse Rate [ Anterior Bilateral Throughout] Respiratory 21 21 22 Rate Respiratory Rate [Anterior Bilateral Throughout] Blood Pressure 98/54 107/58 107/58 O2 Sat by Pulse 100 100 100 Oximetry 05/23/17 05/23/17 05/23/17 04:09 04:15 04:30 Temperature Pulse Rate 90 88 88 Pulse Rate [ Anterior Bilateral Throughout] Respiratory 22 22 Rate Respiratory Rate [Anterior Bilateral Throughout] Blood Pressure 111/60 91/55 99/57 O2 Sat by Pulse 100 100 100 Oximetry 05/23/17 05/23/17 05/23/17 04:45 05:00 05:15 Temperature Pulse Rate 97 H 107 H 99 H Pulse Rate [ Anterior Bilateral Throughout] Respiratory 26 H 24 22 Rate Respiratory Rate [Anterior Bilateral Throughout] Blood Pressure 107/62 106/59 90/46 O2 Sat by Pulse 100 99 100 Oximetry 05/23/17 05/23/17 05/23/17 05:30 05:45 06:00 Temperature Pulse Rate 91 H 91 H 90 Pulse Rate [ Anterior Bilateral Throughout] Respiratory 20 26 H 22 Rate Respiratory Rate [Anterior Bilateral Throughout] Blood Pressure 92/57 98/56 105/56 O2 Sat by Pulse 99 100 Oximetry 05/23/17 05/23/17 05/23/17 06:15 06:30 08:38 Temperature Pulse Rate 92 H 86 93 H Pulse Rate [ 91 H Anterior Bilateral Throughout] Respiratory 23 23 Rate Respiratory 22 Rate [Anterior Bilateral Throughout] Blood Pressure 108/54 105/54 106/51 O2 Sat by Pulse 99 99 100 Oximetry 05/23/17 08:59 Temperature Pulse Rate Pulse Rate [ 95 H Anterior Bilateral Throughout] Respiratory Rate Respiratory 21 Rate [Anterior Bilateral Throughout] Blood Pressure O2 Sat by Pulse Oximetry - General Appearance General appearance: well-developed, well-nourished, appears stated age, intubated EENT: PERRL, mucous membranes moist Neck: no JVD, no thyromegaly Respiratory: Present: Clear to Ascultation Cardiology: regular, normal heart rate Gastrointestinal: normoactive bowel sounds, other (midline dressing noted. Colostomy bag in place) Integumentary: other (2+ edema. Right femoral Vas-Cath in place) - Lab 05/23/17 05:15 05/23/17 05:15 Most recent lab results Calcium 7.0 mg/dL (8.4-10.2) L 05/23/17 05:15 Phosphorus 5.40 mg/dL (2.5-4.5) H 05/16/17 10:20 Magnesium 1.80 mg/dL (1.7-2.3) 05/23/17 05:15 Urine Creatinine 28.0 mg/dL (0.1-20.0) H 05/05/17 Unknown Urine Sodium 129 mmol/L 05/05/17 Unknown
[2017-05-23] MEDS ORDERED: HEPARIN SUB-Q SCH (10:00)
[2017-05-23] MEDS: MERREM 1,000 MG in NACL 0.9% 20 ML IV SCH (10:52)
[2017-05-23] MEDS ORDERED: NACL 0.9% 100 ML IV PRN (11:00)
--- NOTE | 2017-05-23 12:14 | Progress Note ---
Assessment and Plan POD # 2 Pt status quo Abd soft. dressings dry. neg BS. neg drainage from JAVAN. ileostomy pink and functioning well h/h's stable on Levophed systolic over 100 surgically stable but condition remains guarded to start TPN today consider switching to low dose dopamin to protect kidneys as long as systolic can be kept at 100 begin local care in am Selected Entries 05/23/17 11:00 Pulse Rate 84 Respiratory 20 Rate Arterial Blood 100/52 Pressure Laboratory Tests 05/22/17 05/23/17 05/23/17 22:50 05:15 05:15 WBC 40.9 H* Hgb 8.8 L 8.9 L Hct 27.8 L 27.4 L POC ABG pH POC ABG pCO2 POC ABG pO2 Sodium 142 Potassium 3.8 Chloride 110.6 H Carbon Dioxide 19 L BUN 18 H Creatinine 1.9 H 05/23/17 08:55 WBC Hgb Hct POC ABG pH 7.297 L POC ABG pCO2 41.0 POC ABG pO2 98 Sodium Potassium Chloride Carbon Dioxide BUN Creatinine Laboratory Tests 05/22/17 04:50 PT 21.3 H INR 1.75 H APTT 39.4 H Objective Vital Signs - 12hr 05/23/17 05/23/17 05/23/17 00:15 00:30 00:45 Temperature Pulse Rate 93 H 106 H 93 H Pulse Rate [ Anterior Bilateral Throughout] Respiratory 24 26 H 20 Rate Respiratory Rate [Anterior Bilateral Throughout] Blood Pressure 103/52 95/63 97/69 O2 Sat by Pulse 100 100 98 Oximetry 05/23/17 05/23/17 05/23/17 01:00 01:15 01:30 Temperature Pulse Rate 91 H 96 H 90 Pulse Rate [ Anterior Bilateral Throughout] Respiratory 20 19 21 Rate Respiratory Rate [Anterior Bilateral Throughout] Blood Pressure 105/54 112/59 106/56 O2 Sat by Pulse 100 100 100 Oximetry 05/23/17 05/23/17 05/23/17 01:45 02:00 02:15 Temperature Pulse Rate 90 89 89 Pulse Rate [ Anterior Bilateral Throughout] Respiratory 23 23 22 Rate Respiratory Rate [Anterior Bilateral Throughout] Blood Pressure 92/54 92/54 102/59 O2 Sat by Pulse 100 100 100 Oximetry 05/23/17 05/23/17 05/23/17 02:30 02:45 03:00 Temperature Pulse Rate 90 88 90 Pulse Rate [ Anterior Bilateral Throughout] Respiratory 22 20 22 Rate Respiratory Rate [Anterior Bilateral Throughout] Blood Pressure 103/60 99/55 105/53 O2 Sat by Pulse 100 100 100 Oximetry 05/23/17 05/23/17 05/23/17 03:15 03:20 03:30 Temperature 98.4 F Pulse Rate 88 87 Pulse Rate [ Anterior Bilateral Throughout] Respiratory 21 21 Rate Respiratory Rate [Anterior Bilateral Throughout] Blood Pressure 106/58 98/54 O2 Sat by Pulse 100 100 Oximetry 05/23/17 05/23/17 05/23/17 03:45 04:00 04:09 Temperature Pulse Rate 87 87 90 Pulse Rate [ Anterior Bilateral Throughout] Respiratory 21 22 Rate Respiratory Rate [Anterior Bilateral Throughout] Blood Pressure 107/58 107/58 111/60 O2 Sat by Pulse 100 100 100 Oximetry 05/23/17 05/23/17 05/23/17 04:15 04:30 04:45 Temperature Pulse Rate 88 88 97 H Pulse Rate [ Anterior Bilateral Throughout] Respiratory 22 22 26 H Rate Respiratory Rate [Anterior Bilateral Throughout] Blood Pressure 91/55 99/57 107/62 O2 Sat by Pulse 100 100 100 Oximetry 05/23/17 05/23/17 05/23/17 05:00 05:15 05:30 Temperature Pulse Rate 107 H 99 H 91 H Pulse Rate [ Anterior Bilateral Throughout] Respiratory 24 22 20 Rate Respiratory Rate [Anterior Bilateral Throughout] Blood Pressure 106/59 90/46 92/57 O2 Sat by Pulse 99 100 99 Oximetry 05/23/17 05/23/17 05/23/17 05:45 06:00 06:15 Temperature Pulse Rate 91 H 90 92 H Pulse Rate [ Anterior Bilateral Throughout] Respiratory 26 H 22 23 Rate Respiratory Rate [Anterior Bilateral Throughout] Blood Pressure 98/56 105/56 108/54 O2 Sat by Pulse 100 99 Oximetry 05/23/17 05/23/17 05/23/17 06:30 06:45 07:00 Temperature Pulse Rate 86 109 H 91 H Pulse Rate [ Anterior Bilateral Throughout] Respiratory 23 20 22 Rate Respiratory Rate [Anterior Bilateral Throughout] Blood Pressure 105/54 108/55 112/54 O2 Sat by Pulse 99 100 100 Oximetry 05/23/17 05/23/17 05/23/17 07:15 07:30 07:45 Temperature Pulse Rate 86 89 84 Pulse Rate [ Anterior Bilateral Throughout] Respiratory 22 21 22 Rate Respiratory Rate [Anterior Bilateral Throughout] Blood Pressure 108/56 108/54 105/56 O2 Sat by Pulse 100 100 Oximetry 05/23/17 05/23/17 05/23/17 08:00 08:15 08:30 Temperature Pulse Rate 86 117 H 90 Pulse Rate [ Anterior Bilateral Throughout] Respiratory 23 21 25 H Rate Respiratory Rate [Anterior Bilateral Throughout] Blood Pressure 91/61 99/61 102/61 O2 Sat by Pulse 100 100 100 Oximetry 05/23/17 05/23/17 05/23/17 08:38 08:45 08:59 Temperature Pulse Rate 93 H 86 Pulse Rate [ 91 H 95 H Anterior Bilateral Throughout] Respiratory 19 Rate Respiratory 22 21 Rate [Anterior Bilateral Throughout] Blood Pressure 106/51 98/57 O2 Sat by Pulse 100 100 Oximetry 05/23/17 05/23/17 05/23/17 09:00 09:15 09:30 Temperature Pulse Rate 96 H 99 H 94 H Pulse Rate [ Anterior Bilateral Throughout] Respiratory 21 23 23 Rate Respiratory Rate [Anterior Bilateral Throughout] Blood Pressure 91/52 83/56 90/51 O2 Sat by Pulse 100 100 Oximetry 05/23/17 05/23/17 05/23/17 09:45 10:01 10:15 Temperature Pulse Rate 98 H 98 H 83 Pulse Rate [ Anterior Bilateral Throughout] Respiratory 23 22 19 Rate Respiratory Rate [Anterior Bilateral Throughout] Blood Pressure 94/50 104/53 106/63 O2 Sat by Pulse 100 100 Oximetry 05/23/17 05/23/17 05/23/17 10:30 10:45 11:00 Temperature Pulse Rate 87 83 84 Pulse Rate [ Anterior Bilateral Throughout] Respiratory 20 20 20 Rate Respiratory Rate [Anterior Bilateral Throughout] Blood Pressure 110/67 106/55 100/51 O2 Sat by Pulse 100 100 100 Oximetry - Labs 05/23/17 05:15 05/23/17 05:15 Diabetes panel 05/23/17 Range/Units 05:15 Sodium 142 (137-145) mmol/L Potassium 3.8 (3.6-5.0) mmol/L Chloride 110.6 H (98-107) mmol/L Carbon Dioxide 19 L (22-30) mmol/L BUN 18 H (7-17) mg/dL Creatinine 1.9 H (0.7-1.2) mg/dL Glucose 102 H (65-100) mg/dL Calcium 7.0 L (8.4-10.2) mg/dL Calcium panel 05/23/17 Range/Units 05:15 Calcium 7.0 L (8.4-10.2) mg/dL Pituitary panel 05/23/17 Range/Units 05:15 Sodium 142 (137-145) mmol/L Potassium 3.8 (3.6-5.0) mmol/L Chloride 110.6 H (98-107) mmol/L Carbon Dioxide 19 L (22-30) mmol/L BUN 18 H (7-17) mg/dL Creatinine 1.9 H (0.7-1.2) mg/dL Glucose 102 H (65-100) mg/dL Calcium 7.0 L (8.4-10.2) mg/dL Adrenal panel 05/23/17 Range/Units 05:15 Sodium 142 (137-145) mmol/L Potassium 3.8 (3.6-5.0) mmol/L Chloride 110.6 H (98-107) mmol/L Carbon Dioxide 19 L (22-30) mmol/L BUN 18 H (7-17) mg/dL Creatinine 1.9 H (0.7-1.2) mg/dL Glucose 102 H (65-100) mg/dL Calcium 7.0 L (8.4-10.2) mg/dL
--- NOTE | 2017-05-23 12:58 | Progress Note ---
Assessment and Plan CXR = small bilateral pleural effusions CT a/p reviewed = bilateral effusions with compressive atelectasis Imp: 1. Cdiff colitis 2. Sepsis with septic shock presumably related to #1, r/o other/new infections; do not suspect pneumonia 3. LUIS 4. Acute respiratory failure, hypoxia and hypercapnea 5. Centrilobular emphysema, severe/extensive on prior CT chest 6. Pulm HTN, probably due to #5 7. S/p Exlap, colectomy, splenectomy Rec: 1. Cont. bronchodilators; continue to hold off on steroids 2. ABX per ID; consider anti-fungal coverage if persistent leukocytosis 3. For HD today to correct metabolic acidosis, remove volume 4. Gentle hydration with D5 1/2 NS; once TPN starts today would d/c this 5. Rest on ventilator; ABG suggests extubation not advised at this point; will cont. to monitor daily 6. DVT (SCDs) and GI PPx 7. Titrate Levophed off to keep MAP > 65; treat pain as needed 8. Likely will need LTAC 9. S/p 1 unit of PRBCs w/ appropriate rise in H/H 10. Prognosis remains guarded; no family present today CCT 31 minutes Subjective Date of service: 05/23/17 Principal diagnosis: Septic shock,C. diff colitis Interval history: Remains on Levophed at 7mcg now. Awake, on ventilator, PRVC. S/p exlap, colectomy, ileostomy, and splenectomy. Opens eyes, denies pain or other complaints. Active Medications Acetaminophen (Tylenol) 650 mg PO Q4H PRN PRN Reason: Pain MILD(1-3)/Fever >100.5/KHOURY Last Admin: 05/05/17 12:55 Dose: 650 mg Albuterol (Proventil) 2.5 mg IH Q4HRT PRN PRN Reason: Shortness Of Breath Albuterol/Ipratropium (Duoneb *Not For Prn Use*) 1 ampul IH TIDRT [facility] Last Admin: 05/23/17 08:40 Dose: Not Given Lipase/Protease/Amylase (Rohan Pearce 10,500 Unit) 1 each FEEDTUBE PRN PRN PRN Reason: For Clogged Feeding Tube Arformoterol Tartrate (Brovana Nebu) 15 mcg IH Q12HRT [facility] Last Admin: 05/23/17 08:39 Dose: 15 mcg Bisacodyl (Dulcolax) 10 mg [place] QDAY PRN PRN Reason: Constipation unrelieved by MOM Budesonide (Pulmicort) 0.25 mg IH Q12HRT DUNG Last Admin: 05/23/17 08:39 Dose: 0.25 mg Dextrose (D50w (25gm) Syringe) 50 ml IV PRN PRN PRN Reason: Hypoglycemia Epoetin Eugene (Epogen) 20,000 unit IV PHYLLIS PRN PRN Reason: hemodialysis Last Admin: 05/20/17 15:30 Dose: 20,000 unit Famotidine (Pepcid) 20 mg IV QDAY DUNG Heparin Sodium (Porcine) (Heparin) 5,000 unit IV PHYLLIS PRN PRN Reason: hemodialysis Last Admin: 05/20/17 17:58 Dose: 5,000 unit Hydrocortisone Acetate (Proctosol-Hc) 1 applic [place] Q8H PRN PRN Reason: Hemorrhoids Last Admin: 05/05/17 23:40 Dose: 1 applic Hydrophilic Ointment (Vaseline Lip Therapy) 1 applic TP Q2HR PRN PRN Reason: Dry Lips Last Admin: 05/16/17 20:58 Dose: 1 applic Sodium Chloride (Nacl 0.9% 500 Ml) 500 mls @ 10 mls/hr IV PRN PRN PRN Reason: FOR CVP Last Infusion: 05/07/17 13:17 Dose: Infused Metronidazole (Flagyl 500 Mg/100 Ml) 500 mg in 100 mls @ 100 mls/hr IV Q6HR DUNG Last Admin: 05/23/17 05:50 Dose: 100 mls/hr Norepinephrine 8 mg/ Sodium (Chloride) 250 mls @ 3.75 mls/hr IV TITR DUNG; 2 MCG /MIN PRN Reason: Protocol Last Titration: 05/22/17 23:28 Dose: 7 mcg/min, 13.12 mls/hr Meropenem 1,000 mg/ Sodium (Chloride) 20 mls @ 20 mls/10 min IV Q24H DUNG Last Admin: 05/23/17 10:52 Dose: 20 mls/10 min Dextrose/Sodium Chloride (D5/0.45ns) 1,000 mls @ 42 mls/hr IV DIRECT DUNG Last Admin: 05/22/17 08:21 Dose: 42 mls/hr Sodium Chloride (Nacl 0.9%) 100 mls @ 999 mls/hr IV PHYLLIS PRN PRN Reason: Hypotension Insulin Aspart (Novolog) 0 units SUB-Q Q6HR DUNG PRN Reason: Protocol Last Admin: 05/23/17 05:53 Dose: Not Given Lactobacillus Acidophilus (Floranex) 1 each PO TID [facility] Last Admin: 05/23/17 09:18 Dose: Not Given Lorazepam (Ativan) 1 mg IV Q4H PRN PRN Reason: Agitation Last Admin: 05/21/17 17:19 Dose: 1 mg Morphine Sulfate (Morphine) 1 mg IV Q6H PRN PRN Reason: Pain, Moderate (4-6) Last Admin: 05/23/17 00:44 Dose: 1 mg Multi-Ingred Cream/Lotion/Oil/Oint (Artificial Tears Ophth Oint) 1 applic OU Q4HR PRN PRN Reason: Dry Eye(s) Ondansetron HCl (Zofran) 4 mg IV Q4H PRN PRN Reason: N/V unrelieved by Pilar Last Admin: 05/12/17 10:36 Dose: 4 mg Simple Syrup (Simple Syrup) 15 ml FEEDTUBE PRN PRN PRN Reason: Hypoglycemia Simple Syrup (Simple Syrup) 30 ml FEEDTUBE PRN PRN PRN Reason: Hypoglycemia Sodium Bicarbonate (Sodium Bicarbonate) 325 mg FEEDTUBE PRN PRN PRN Reason: For Clogged Feeding Tube Objective Vital Signs - 12hr 05/23/17 05/23/17 05/23/17 01:00 01:15 01:30 Temperature Pulse Rate 91 H 96 H 90 Pulse Rate [ Anterior Bilateral Throughout] Respiratory 20 19 21 Rate Respiratory Rate [Anterior Bilateral Throughout] Blood Pressure 105/54 112/59 106/56 O2 Sat by Pulse 100 100 100 Oximetry 05/23/17 05/23/17 05/23/17 01:45 02:00 02:15 Temperature Pulse Rate 90 89 89 Pulse Rate [ Anterior Bilateral Throughout] Respiratory 23 23 22 Rate Respiratory Rate [Anterior Bilateral Throughout] Blood Pressure 92/54 92/54 102/59 O2 Sat by Pulse 100 100 100 Oximetry 05/23/17 05/23/17 05/23/17 02:30 02:45 03:00 Temperature Pulse Rate 90 88 90 Pulse Rate [ Anterior Bilateral Throughout] Respiratory 22 20 22 Rate Respiratory Rate [Anterior Bilateral Throughout] Blood Pressure 103/60 99/55 105/53 O2 Sat by Pulse 100 100 100 Oximetry 05/23/17 05/23/17 05/23/17 03:15 03:20 03:30 Temperature 98.4 F Pulse Rate 88 87 Pulse Rate [ Anterior Bilateral Throughout] Respiratory 21 21 Rate Respiratory Rate [Anterior Bilateral Throughout] Blood Pressure 106/58 98/54 O2 Sat by Pulse 100 100 Oximetry 05/23/17 05/23/17 05/23/17 03:45 04:00 04:09 Temperature Pulse Rate 87 87 90 Pulse Rate [ Anterior Bilateral Throughout] Respiratory 21 22 Rate Respiratory Rate [Anterior Bilateral Throughout] Blood Pressure 107/58 107/58 111/60 O2 Sat by Pulse 100 100 100 Oximetry 05/23/17 05/23/17 05/23/17 04:15 04:30 04:45 Temperature Pulse Rate 88 88 97 H Pulse Rate [ Anterior Bilateral Throughout] Respiratory 22 22 26 H Rate Respiratory Rate [Anterior Bilateral Throughout] Blood Pressure 91/55 99/57 107/62 O2 Sat by Pulse 100 100 100 Oximetry 05/23/17 05/23/17 05/23/17 05:00 05:15 05:30 Temperature Pulse Rate 107 H 99 H 91 H Pulse Rate [ Anterior Bilateral Throughout] Respiratory 24 22 20 Rate Respiratory Rate [Anterior Bilateral Throughout] Blood Pressure 106/59 90/46 92/57 O2 Sat by Pulse 99 100 99 Oximetry 05/23/17 05/23/17 05/23/17 05:45 06:00 06:15 Temperature Pulse Rate 91 H 90 92 H Pulse Rate [ Anterior Bilateral Throughout] Respiratory 26 H 22 23 Rate Respiratory Rate [Anterior Bilateral Throughout] Blood Pressure 98/56 105/56 108/54 O2 Sat by Pulse 100 99 Oximetry 05/23/17 05/23/17 05/23/17 06:30 06:45 07:00 Temperature Pulse Rate 86 109 H 91 H Pulse Rate [ Anterior Bilateral Throughout] Respiratory 23 20 22 Rate Respiratory Rate [Anterior Bilateral Throughout] Blood Pressure 105/54 108/55 112/54 O2 Sat by Pulse 99 100 100 Oximetry 05/23/17 05/23/17 05/23/17 07:15 07:30 07:45 Temperature Pulse Rate 86 89 84 Pulse Rate [ Anterior Bilateral Throughout] Respiratory 22 21 22 Rate Respiratory Rate [Anterior Bilateral Throughout] Blood Pressure 108/56 108/54 105/56 O2 Sat by Pulse 100 100 Oximetry 05/23/17 05/23/17 05/23/17 08:00 08:15 08:30 Temperature Pulse Rate 86 117 H 90 Pulse Rate [ Anterior Bilateral Throughout] Respiratory 23 21 25 H Rate Respiratory Rate [Anterior Bilateral Throughout] Blood Pressure 91/61 99/61 102/61 O2 Sat by Pulse 100 100 100 Oximetry 05/23/17 05/23/17 05/23/17 08:38 08:45 08:59 Temperature Pulse Rate 93 H 86 Pulse Rate [ 91 H 95 H Anterior Bilateral Throughout] Respiratory 19 Rate Respiratory 22 21 Rate [Anterior Bilateral Throughout] Blood Pressure 106/51 98/57 O2 Sat by Pulse 100 100 Oximetry 05/23/17 05/23/17 05/23/17 09:00 09:15 09:30 Temperature Pulse Rate 96 H 99 H 94 H Pulse Rate [ Anterior Bilateral Throughout] Respiratory 21 23 23 Rate Respiratory Rate [Anterior Bilateral Throughout] Blood Pressure 91/52 83/56 90/51 O2 Sat by Pulse 100 100 Oximetry 05/23/17 05/23/17 05/23/17 09:45 10:01 10:15 Temperature Pulse Rate 98 H 98 H 83 Pulse Rate [ Anterior Bilateral Throughout] Respiratory 23 22 19 Rate Respiratory Rate [Anterior Bilateral Throughout] Blood Pressure 94/50 104/53 106/63 O2 Sat by Pulse 100 100 Oximetry 05/23/17 05/23/17 05/23/17 10:30 10:45 11:00 Temperature Pulse Rate 87 83 84 Pulse Rate [ Anterior Bilateral Throughout] Respiratory 20 20 20 Rate Respiratory Rate [Anterior Bilateral Throughout] Blood Pressure 110/67 106/55 100/51 O2 Sat by Pulse 100 100 100 Oximetry 05/23/17 05/23/17 05/23/17 11:50 12:00 12:15 Temperature 96.6 F L Pulse Rate 110 H 105 H 100 H Pulse Rate [ Anterior Bilateral Throughout] Respiratory 20 Rate Respiratory Rate [Anterior Bilateral Throughout] Blood Pressure 100/60 101/60 100/60 O2 Sat by Pulse Oximetry 05/23/17 05/23/17 05/23/17 12:20 12:30 12:45 Temperature Pulse Rate 109 H 112 H 126 H Pulse Rate [ Anterior Bilateral Throughout] Respiratory Rate Respiratory Rate [Anterior Bilateral Throughout] Blood Pressure 106/58 98/59 88/68 O2 Sat by Pulse 98 Oximetry Constitutional: alert, other (critically ill on vent) Eyes: non-icteric ENT: oropharynx moist Neck: supple Effort: normal Ascultation: Bilateral: other (coarse BS bilaterally) Percussion: Bilateral: not dull Cardiovascular: regular rate and rhythm (no mrg) Gastrointestinal: hypoactive bowel sounds, tender, other (distended, ostomy looks good with some liquid stool in bag, brown + old blood) Integumentary: normal Extremities: no cyanosis, pink and warm, anasarca (1+ bilateral LE edema) Neurologic: normal mental status, non-focal exam, pupils equal and round, CN II- XII normal Psychiatric: mood appropriate, affect normal CBC and BMP: 05/23/17 05:15 05/23/17 05:15 ABG, PT/INR, D-dimer: ABG POC ABG pH 7.297 (7.35-7.45) L 05/23/17 08:55 POC ABG pCO2 41.0 (35-45) 05/23/17 08:55 POC ABG pO2 98 (80-105) 05/23/17 08:55 POC ABG HCO3 20.0 05/23/17 08:55 POC ABG Total CO2 21 05/23/17 08:55 POC ABG O2 Sat 97 05/23/17 08:55 PT/INR, D-dimer PT 21.3 Sec. (12.2-14.9) H 05/22/17 04:50 INR 1.75 (0.87-1.13) H 05/22/17 04:50 D-Dimer 8441.57 ng/mlDDU (0-234) H 05/04/17 Unknown Abnormal lab findings: Abnormal Labs 05/04/17 05/04/17 05/04/17 02:20 18:39 18:39 WBC 24.3 H RBC Hgb Hct RDW 16.4 H Plt Count 658 H Seg Neuts % (Manual) 94.5 H Lymphocytes % (Manual) 2.5 L Monocytes % (Manual) Nucleated RBC % Seg Neutrophils # Man 23.0 H Lymphocytes # (Manual) 0.6 L Monocytes # (Manual) Eosinophils # (Manual) PT INR APTT D-Dimer POC ABG pH POC ABG pCO2 POC ABG pO2 Sodium Potassium 3.2 L Chloride 92.6 L Carbon Dioxide 14 L BUN 66 H Creatinine 6.5 H Glucose POC Glucose Lactic Acid Calcium 7.5 L Ionized Calcium Phosphorus Magnesium ALT 5 L Alkaline Phosphatase 32 L Total Creatine Kinase CK-MB (CK-2) Troponin T C-Reactive Protein Total Protein 5.4 L Albumin 3.0 L Urine WBC (Auto) 100.0 H Urine Creatinine Salicylates Miscellaneous Test Crossmatch 05/04/17 05/04/17 05/04/17 18:39 18:55 Unknown WBC RBC Hgb Hct RDW Plt Count Seg Neuts % (Manual) Lymphocytes % (Manual) Monocytes % (Manual) Nucleated RBC % Seg Neutrophils # Man Lymphocytes # (Manual) Monocytes # (Manual) Eosinophils # (Manual) PT INR APTT D-Dimer POC ABG pH POC ABG pCO2 POC ABG pO2 Sodium Potassium Chloride Carbon Dioxide BUN Creatinine Glucose POC Glucose Lactic Acid 0.40 L Calcium Ionized Calcium Phosphorus Magnesium ALT Alkaline Phosphatase Total Creatine Kinase 155 H CK-MB (CK-2) 4.5 H Troponin T 0.033 H C-Reactive Protein Total Protein Albumin Urine WBC (Auto) Urine Creatinine Salicylates 0.3 L Miscellaneous Test Crossmatch 05/04/17 05/04/17 05/04/17 Unknown Unknown Unknown WBC RBC Hgb Hct RDW Plt Count Seg Neuts % (Manual) Lymphocytes % (Manual) Monocytes % (Manual) Nucleated RBC % Seg Neutrophils # Man Lymphocytes # (Manual) Monocytes # (Manual) Eosinophils # (Manual) PT INR APTT D-Dimer 8441.57 H POC ABG pH POC ABG pCO2 POC ABG pO2 Sodium Potassium Chloride Carbon Dioxide BUN Creatinine Glucose POC Glucose Lactic Acid 0.40 L Calcium Ionized Calcium Phosphorus Magnesium ALT Alkaline Phosphatase Total Creatine Kinase 246 H CK-MB (CK-2) 6.2 H Troponin T C-Reactive Protein Total Protein Albumin Urine WBC (Auto) Urine Creatinine Salicylates Miscellaneous Test Crossmatch 05/05/17 05/05/17 05/05/17 05:20 05:20 05:20 WBC 33.9 H RBC 3.39 L Hgb 9.3 L Hct RDW 16.7 H Plt Count 712 H Seg Neuts % (Manual) 91.0 H Lymphocytes % (Manual) 1.0 L Monocytes % (Manual) Nucleated RBC % Seg Neutrophils # Man 30.8 H Lymphocytes # (Manual) 0.3 L Monocytes # (Manual) 1.5 H Eosinophils # (Manual) PT INR APTT D-Dimer POC ABG pH POC ABG pCO2 POC ABG pO2 Sodium Potassium Chloride Carbon Dioxide 9 L* BUN 53 H Creatinine 5.4 H Glucose POC Glucose Lactic Acid Calcium 6.1 L D Ionized Calcium Phosphorus Magnesium ALT Alkaline Phosphatase Total Creatine Kinase 346 H CK-MB (CK-2) 8.2 H Troponin T C-Reactive Protein Total Protein Albumin Urine WBC (Auto) Urine Creatinine Salicylates Miscellaneous Test Crossmatch 05/05/17 05/05/17 05/05/17 10:43 17:45 17:45 WBC RBC Hgb 8.8 L Hct RDW Plt Count Seg Neuts % (Manual) Lymphocytes % (Manual) Monocytes % (Manual) Nucleated RBC % Seg Neutrophils # Man Lymphocytes # (Manual) Monocytes # (Manual) Eosinophils # (Manual) PT INR APTT D-Dimer POC ABG pH 6.872 L POC ABG pCO2 POC ABG pO2 120 H Sodium Potassium Chloride Carbon Dioxide BUN Creatinine Glucose POC Glucose Lactic Acid Calcium Ionized Calcium 3.5 L Phosphorus Magnesium ALT Alkaline Phosphatase Total Creatine Kinase CK-MB (CK-2) Troponin T C-Reactive Protein Total Protein Albumin Urine WBC (Auto) Urine Creatinine Salicylates Miscellaneous Test Crossmatch 05/05/17 05/05/17 05/05/17 17:45 20:58 Unknown WBC RBC Hgb 9.0 L Hct 29.8 L RDW Plt Count Seg Neuts % (Manual) Lymphocytes % (Manual) Monocytes % (Manual) Nucleated RBC % Seg Neutrophils # Man Lymphocytes # (Manual) Monocytes # (Manual) Eosinophils # (Manual) PT INR APTT D-Dimer POC ABG pH POC ABG pCO2 POC ABG pO2 Sodium Potassium Chloride Carbon Dioxide BUN Creatinine Glucose POC Glucose Lactic Acid Calcium Ionized Calcium Phosphorus 6.20 H Magnesium 1.20 L ALT Alkaline Phosphatase Total Creatine Kinase CK-MB (CK-2) Troponin T C-Reactive Protein Total Protein Albumin Urine WBC (Auto) Urine Creatinine 28.0 H Salicylates Miscellaneous Test Crossmatch 05/06/17 05/06/17 05/06/17 05:09 05:23 07:55 WBC RBC Hgb Hct RDW Plt Count Seg Neuts % (Manual) Lymphocytes % (Manual) Monocytes % (Manual) Nucleated RBC % Seg Neutrophils # Man Lymphocytes # (Manual) Monocytes # (Manual) Eosinophils # (Manual) PT INR APTT D-Dimer POC ABG pH 7.029 L 7.060 L POC ABG pCO2 54.8 H 48.6 H POC ABG pO2 74 L 43 L Sodium Potassium 3.5 L Chloride Carbon Dioxide 18 L D BUN 44 H Creatinine 3.5 H Glucose 252 H POC Glucose Lactic Acid Calcium 5.8 L* Ionized Calcium Phosphorus Magnesium ALT Alkaline Phosphatase Total Creatine Kinase CK-MB (CK-2) Troponin T C-Reactive Protein Total Protein Albumin Urine WBC (Auto) Urine Creatinine Salicylates Miscellaneous Test Crossmatch 05/06/17 05/06/17 05/06/17 07:55 15:28 17:30 WBC RBC Hgb Hct RDW Plt Count Seg Neuts % (Manual) Lymphocytes % (Manual) Monocytes % (Manual) Nucleated RBC % Seg Neutrophils # Man Lymphocytes # (Manual) Monocytes # (Manual) Eosinophils # (Manual) PT INR APTT D-Dimer POC ABG pH 7.066 L POC ABG pCO2 80.9 H POC ABG pO2 65 L Sodium Potassium Chloride Carbon Dioxide BUN Creatinine Glucose POC Glucose Lactic Acid Calcium Ionized Calcium Phosphorus Magnesium ALT Alkaline Phosphatase Total Creatine Kinase CK-MB (CK-2) Troponin T C-Reactive Protein 14.50 H Total Protein Albumin Urine WBC (Auto) Urine Creatinine Salicylates Miscellaneous Test Flexitest 1 H Crossmatch 05/06/17 05/06/17 05/07/17 17:30 Unknown 10:18 WBC 39.2 H 32.9 H RBC 3.27 L Hgb 9.3 L Hct 30.2 L RDW 16.4 H 17.0 H Plt Count 645 H 467 H Seg Neuts % (Manual) Lymphocytes % (Manual) 11.0 L Monocytes % (Manual) Nucleated RBC % Seg Neutrophils # Man 21.2 H Lymphocytes # (Manual) Monocytes # (Manual) 2.0 H Eosinophils # (Manual) PT INR APTT D-Dimer POC ABG pH POC ABG pCO2 POC ABG pO2 Sodium Potassium 3.4 L Chloride Carbon Dioxide BUN 41 H Creatinine 3.2 H Glucose 265 H POC Glucose Lactic Acid Calcium 6.7 L D Ionized Calcium Phosphorus Magnesium ALT Alkaline Phosphatase Total Creatine Kinase CK-MB (CK-2) Troponin T C-Reactive Protein Total Protein Albumin Urine WBC (Auto) Urine Creatinine Salicylates Miscellaneous Test Crossmatch 05/07/17 05/07/17 05/08/17 11:32 12:36 05:45 WBC 31.1 H RBC 3.41 L Hgb 9.8 L Hct RDW 16.9 H Plt Count Seg Neuts % (Manual) 96.0 H Lymphocytes % (Manual) 1.0 L Monocytes % (Manual) Nucleated RBC % Seg Neutrophils # Man 29.9 H Lymphocytes # (Manual) 0.3 L Monocytes # (Manual) Eosinophils # (Manual) PT INR APTT D-Dimer POC ABG pH 7.290 L POC ABG pCO2 48.3 H POC ABG pO2 51 L Sodium 146 H Potassium 3.1 L Chloride 109.2 H Carbon Dioxide 20 L BUN 38 H Creatinine 2.7 H Glucose 213 H POC Glucose Lactic Acid Calcium 6.6 L Ionized Calcium Phosphorus Magnesium ALT Alkaline Phosphatase Total Creatine Kinase CK-MB (CK-2) Troponin T C-Reactive Protein Total Protein Albumin Urine WBC (Auto) Urine Creatinine Salicylates Miscellaneous Test Crossmatch 05/08/17 05/08/17 05/09/17 05:45 18:55 04:05 WBC 26.1 H RBC Hgb Hct RDW 17.6 H Plt Count Seg Neuts % (Manual) Lymphocytes % (Manual) 5.0 L Monocytes % (Manual) Nucleated RBC % Seg Neutrophils # Man 16.7 H Lymphocytes # (Manual) Monocytes # (Manual) Eosinophils # (Manual) PT INR APTT D-Dimer POC ABG pH POC ABG pCO2 POC ABG pO2 Sodium 150 H Potassium Chloride 115.4 H 112.2 H Carbon Dioxide 20 L 18 L BUN 39 H 45 H Creatinine 2.4 H 2.3 H Glucose 160 H 219 H POC Glucose Lactic Acid Calcium 6.6 L 7.2 L Ionized Calcium Phosphorus Magnesium 1.40 L ALT 6 L Alkaline Phosphatase Total Creatine Kinase CK-MB (CK-2) Troponin T C-Reactive Protein Total Protein 4.1 L D Albumin 2.0 L Urine WBC (Auto) Urine Creatinine Salicylates Miscellaneous Test Crossmatch 05/09/17 05/09/17 05/09/17 04:05 05:15 05:45 WBC RBC Hgb Hct RDW Plt Count Seg Neuts % (Manual) Lymphocytes % (Manual) Monocytes % (Manual) Nucleated RBC % Seg Neutrophils # Man Lymphocytes # (Manual) Monocytes # (Manual) Eosinophils # (Manual) PT INR APTT D-Dimer POC ABG pH POC ABG pCO2 POC ABG pO2 Sodium 130 L D Potassium 3.4 L D Chloride 94.6 L Carbon Dioxide 19 L BUN 39 H Creatinine 2.1 H Glucose 549 H* 189 H POC Glucose 181 H Lactic Acid Calcium 6.6 L Ionized Calcium Phosphorus Magnesium ALT 6 L Alkaline Phosphatase 31 L Total Creatine Kinase CK-MB (CK-2) Troponin T C-Reactive Protein Total Protein 3.5 L Albumin 2.0 L Urine WBC (Auto) Urine Creatinine Salicylates Miscellaneous Test Crossmatch 05/09/17 05/09/17 05/09/17 08:03 11:08 16:15 WBC RBC Hgb Hct RDW Plt Count Seg Neuts % (Manual) Lymphocytes % (Manual) Monocytes % (Manual) Nucleated RBC % Seg Neutrophils # Man Lymphocytes # (Manual) Monocytes # (Manual) Eosinophils # (Manual) PT INR APTT D-Dimer POC ABG pH POC ABG pCO2 POC ABG pO2 Sodium Potassium Chloride 107.8 H Carbon Dioxide 21 L BUN 43 H Creatinine 2.4 H Glucose 195 H POC Glucose 299 H 111 H Lactic Acid Calcium 7.1 L Ionized Calcium Phosphorus Magnesium ALT Alkaline Phosphatase Total Creatine Kinase CK-MB (CK-2) Troponin T C-Reactive Protein Total Protein 3.9 L Albumin 2.3 L Urine WBC (Auto) Urine Creatinine Salicylates Miscellaneous Test Crossmatch 05/09/17 05/10/17 05/10/17 23:05 05:00 05:00 WBC 20.9 H RBC 3.53 L Hgb Hct RDW 17.3 H Plt Count Seg Neuts % (Manual) 72.0 H Lymphocytes % (Manual) 8.0 L Monocytes % (Manual) Nucleated RBC % Seg Neutrophils # Man 15.0 H Lymphocytes # (Manual) Monocytes # (Manual) Eosinophils # (Manual) PT INR APTT D-Dimer POC ABG pH POC ABG pCO2 POC ABG pO2 Sodium 135 L D Potassium 3.2 L Chloride Carbon Dioxide 21 L BUN 45 H Creatinine 2.2 H Glucose 308 H POC Glucose 336 H Lactic Acid Calcium 7.1 L Ionized Calcium Phosphorus Magnesium ALT 5 L Alkaline Phosphatase 30 L Total Creatine Kinase CK-MB (CK-2) Troponin T C-Reactive Protein Total Protein 3.8 L Albumin 2.1 L Urine WBC (Auto) Urine Creatinine Salicylates Miscellaneous Test Crossmatch 05/10/17 05/10/17 05/10/17 07:28 11:36 16:03 WBC RBC Hgb Hct RDW Plt Count Seg Neuts % (Manual) Lymphocytes % (Manual) Monocytes % (Manual) Nucleated RBC % Seg Neutrophils # Man Lymphocytes # (Manual) Monocytes # (Manual) Eosinophils # (Manual) PT INR APTT D-Dimer POC ABG pH POC ABG pCO2 POC ABG pO2 Sodium Potassium Chloride Carbon Dioxide BUN Creatinine Glucose POC Glucose 154 H 184 H 162 H Lactic Acid Calcium Ionized Calcium Phosphorus Magnesium ALT Alkaline Phosphatase Total Creatine Kinase CK-MB (CK-2) Troponin T C-Reactive Protein Total Protein Albumin Urine WBC (Auto) Urine Creatinine Salicylates Miscellaneous Test Crossmatch 05/10/17 05/11/17 05/11/17 21:13 06:50 06:50 WBC 24.4 H RBC Hgb Hct RDW 17.4 H Plt Count Seg Neuts % (Manual) Lymphocytes % (Manual) 5.0 L Monocytes % (Manual) Nucleated RBC % Seg Neutrophils # Man 16.3 H Lymphocytes # (Manual) Monocytes # (Manual) 1.0 H Eosinophils # (Manual) PT INR APTT D-Dimer POC ABG pH POC ABG pCO2 POC ABG pO2 Sodium Potassium 3.4 L Chloride Carbon Dioxide BUN 50 H Creatinine 2.8 H Glucose 131 H POC Glucose 188 H Lactic Acid Calcium 7.6 L Ionized Calcium Phosphorus Magnesium ALT < 5 L Alkaline Phosphatase 25 L Total Creatine Kinase CK-MB (CK-2) Troponin T C-Reactive Protein Total Protein 3.6 L Albumin 2.0 L Urine WBC (Auto) Urine Creatinine Salicylates Miscellaneous Test Crossmatch 05/11/17 05/11/17 05/11/17 09:33 11:45 15:46 WBC RBC Hgb Hct RDW Plt Count Seg Neuts % (Manual) Lymphocytes % (Manual) Monocytes % (Manual) Nucleated RBC % Seg Neutrophils # Man Lymphocytes # (Manual) Monocytes # (Manual) Eosinophils # (Manual) PT INR APTT D-Dimer POC ABG pH POC ABG pCO2 POC ABG pO2 Sodium Potassium Chloride Carbon Dioxide BUN Creatinine Glucose POC Glucose 140 H 157 H 137 H Lactic Acid Calcium Ionized Calcium Phosphorus Magnesium ALT Alkaline Phosphatase Total Creatine Kinase CK-MB (CK-2) Troponin T C-Reactive Protein Total Protein Albumin Urine WBC (Auto) Urine Creatinine Salicylates Miscellaneous Test Crossmatch 05/11/17 05/11/17 05/12/17 17:50 20:58 05:00 WBC 23.1 H RBC 3.59 L Hgb Hct RDW 17.1 H Plt Count Seg Neuts % (Manual) 94.0 H Lymphocytes % (Manual) 0 L Monocytes % (Manual) Nucleated RBC % Seg Neutrophils # Man 21.7 H Lymphocytes # (Manual) 0.0 L Monocytes # (Manual) Eosinophils # (Manual) PT INR APTT D-Dimer POC ABG pH POC ABG pCO2 POC ABG pO2 Sodium Potassium Chloride Carbon Dioxide BUN Creatinine Glucose POC Glucose 155 H Lactic Acid Calcium Ionized Calcium Phosphorus Magnesium ALT Alkaline Phosphatase Total Creatine Kinase CK-MB (CK-2) Troponin T C-Reactive Protein Total Protein Albumin Urine WBC (Auto) 27.0 H Urine Creatinine Salicylates Miscellaneous Test Crossmatch 05/12/17 05/12/17 05/12/17 05:00 08:28 11:28 WBC RBC Hgb Hct RDW Plt Count Seg Neuts % (Manual) Lymphocytes % (Manual) Monocytes % (Manual) Nucleated RBC % Seg Neutrophils # Man Lymphocytes # (Manual) Monocytes # (Manual) Eosinophils # (Manual) PT INR APTT D-Dimer POC ABG pH POC ABG pCO2 POC ABG pO2 Sodium Potassium Chloride 111.7 H Carbon Dioxide BUN 53 H Creatinine 2.8 H Glucose 102 H POC Glucose 130 H 171 H Lactic Acid Calcium 6.9 L Ionized Calcium Phosphorus Magnesium ALT < 5 L Alkaline Phosphatase 25 L Total Creatine Kinase CK-MB (CK-2) Troponin T C-Reactive Protein Total Protein 3.3 L Albumin 1.7 L Urine WBC (Auto) Urine Creatinine Salicylates Miscellaneous Test Crossmatch 05/12/17 05/13/17 05/13/17 22:20 06:54 06:54 WBC 20.8 H RBC 3.17 L Hgb 9.2 L Hct 28.9 L RDW 17.7 H Plt Count Seg Neuts % (Manual) 93.0 H Lymphocytes % (Manual) 1.0 L Monocytes % (Manual) Nucleated RBC % Seg Neutrophils # Man 19.3 H Lymphocytes # (Manual) 0.2 L Monocytes # (Manual) Eosinophils # (Manual) 0.6 H PT INR APTT D-Dimer POC ABG pH POC ABG pCO2 POC ABG pO2 Sodium Potassium 3.3 L Chloride 110.0 H Carbon Dioxide 20 L BUN 48 H Creatinine 2.8 H Glucose 119 H POC Glucose 179 H Lactic Acid Calcium 7.4 L Ionized Calcium Phosphorus Magnesium ALT Alkaline Phosphatase Total Creatine Kinase CK-MB (CK-2) Troponin T C-Reactive Protein Total Protein Albumin Urine WBC (Auto) Urine Creatinine Salicylates Miscellaneous Test Crossmatch 05/13/17 05/13/17 05/13/17 07:35 12:52 23:32 WBC RBC Hgb Hct RDW Plt Count Seg Neuts % (Manual) Lymphocytes % (Manual) Monocytes % (Manual) Nucleated RBC % Seg Neutrophils # Man Lymphocytes # (Manual) Monocytes # (Manual) Eosinophils # (Manual) PT INR APTT D-Dimer POC ABG pH POC ABG pCO2 POC ABG pO2 Sodium Potassium Chloride Carbon Dioxide BUN Creatinine Glucose POC Glucose 139 H 159 H 179 H Lactic Acid Calcium Ionized Calcium Phosphorus Magnesium ALT Alkaline Phosphatase Total Creatine Kinase CK-MB (CK-2) Troponin T C-Reactive Protein Total Protein Albumin Urine WBC (Auto) Urine Creatinine Salicylates Miscellaneous Test Crossmatch 05/14/17 05/14/17 05/14/17 04:00 05:00 07:30 WBC 19.3 H RBC 3.16 L Hgb 9.1 L Hct 29.1 L RDW 17.9 H Plt Count Seg Neuts % (Manual) 87.0 H Lymphocytes % (Manual) 2.0 L Monocytes % (Manual) Nucleated RBC % Seg Neutrophils # Man 16.8 H Lymphocytes # (Manual) 0.4 L Monocytes # (Manual) 1.0 H Eosinophils # (Manual) 0.6 H PT INR APTT D-Dimer POC ABG pH POC ABG pCO2 POC ABG pO2 Sodium 146 H Potassium Chloride 114.7 H Carbon Dioxide 19 L BUN 43 H Creatinine 2.5 H Glucose POC Glucose 110 H Lactic Acid Calcium 7.5 L Ionized Calcium Phosphorus Magnesium ALT Alkaline Phosphatase Total Creatine Kinase CK-MB (CK-2) Troponin T C-Reactive Protein Total Protein Albumin Urine WBC (Auto) Urine Creatinine Salicylates Miscellaneous Test Crossmatch 05/14/17 05/14/17 05/14/17 11:43 15:44 20:10 WBC RBC Hgb Hct RDW Plt Count Seg Neuts % (Manual) Lymphocytes % (Manual) Monocytes % (Manual) Nucleated RBC % Seg Neutrophils # Man Lymphocytes # (Manual) Monocytes # (Manual) Eosinophils # (Manual) PT INR APTT D-Dimer POC ABG pH POC ABG pCO2 POC ABG pO2 Sodium Potassium Chloride Carbon Dioxide BUN Creatinine Glucose POC Glucose 169 H 201 H 223 H Lactic Acid Calcium Ionized Calcium Phosphorus Magnesium ALT Alkaline Phosphatase Total Creatine Kinase CK-MB (CK-2) Troponin T C-Reactive Protein Total Protein Albumin Urine WBC (Auto) Urine Creatinine Salicylates Miscellaneous Test Crossmatch 05/15/17 05/15/17 05/15/17 06:10 08:50 12:57 WBC RBC Hgb Hct RDW Plt Count Seg Neuts % (Manual) Lymphocytes % (Manual) Monocytes % (Manual) Nucleated RBC % Seg Neutrophils # Man Lymphocytes # (Manual) Monocytes # (Manual) Eosinophils # (Manual) PT INR APTT D-Dimer POC ABG pH POC ABG pCO2 POC ABG pO2 Sodium Potassium Chloride 113.6 H Carbon Dioxide 18 L BUN 43 H Creatinine 2.7 H Glucose 123 H POC Glucose 204 H 127 H Lactic Acid Calcium 7.2 L Ionized Calcium Phosphorus Magnesium ALT Alkaline Phosphatase Total Creatine Kinase CK-MB (CK-2) Troponin T C-Reactive Protein Total Protein Albumin Urine WBC (Auto) Urine Creatinine Salicylates Miscellaneous Test Crossmatch 05/15/17 05/15/17 05/15/17 17:43 21:29 23:51 WBC RBC Hgb Hct RDW Plt Count Seg Neuts % (Manual) Lymphocytes % (Manual) Monocytes % (Manual) Nucleated RBC % Seg Neutrophils # Man Lymphocytes # (Manual) Monocytes # (Manual) Eosinophils # (Manual) PT INR APTT D-Dimer POC ABG pH 6.983 L POC ABG pCO2 67.5 H POC ABG pO2 Sodium Potassium Chloride Carbon Dioxide BUN Creatinine Glucose POC Glucose 121 H 129 H Lactic Acid Calcium Ionized Calcium Phosphorus Magnesium ALT Alkaline Phosphatase Total Creatine Kinase CK-MB (CK-2) Troponin T C-Reactive Protein Total Protein Albumin Urine WBC (Auto) Urine Creatinine Salicylates Miscellaneous Test Crossmatch 05/16/17 05/16/17 05/16/17 00:15 06:00 07:46 WBC RBC Hgb Hct RDW Plt Count Seg Neuts % (Manual) Lymphocytes % (Manual) Monocytes % (Manual) Nucleated RBC % Seg Neutrophils # Man Lymphocytes # (Manual) Monocytes # (Manual) Eosinophils # (Manual) PT INR APTT D-Dimer POC ABG pH POC ABG pCO2 POC ABG pO2 Sodium Potassium Chloride 114.2 H Carbon Dioxide 17 L BUN 44 H Creatinine 3.3 H Glucose 118 H POC Glucose 135 H Lactic Acid 0.60 L Calcium 7.5 L Ionized Calcium Phosphorus Magnesium ALT Alkaline Phosphatase Total Creatine Kinase CK-MB (CK-2) Troponin T C-Reactive Protein Total Protein Albumin Urine WBC (Auto) Urine Creatinine Salicylates Miscellaneous Test Crossmatch 05/16/17 05/16/17 05/16/17 09:38 10:20 10:20 WBC 18.6 H RBC 3.08 L Hgb 9.0 L Hct 29.0 L RDW 18.8 H Plt Count Seg Neuts % (Manual) Lymphocytes % (Manual) 5.0 L Monocytes % (Manual) Nucleated RBC % Seg Neutrophils # Man 11.3 H Lymphocytes # (Manual) 0.9 L Monocytes # (Manual) 1.3 H Eosinophils # (Manual) PT INR APTT D-Dimer POC ABG pH 7.081 L POC ABG pCO2 46.3 H POC ABG pO2 107 H Sodium Potassium Chloride 114.9 H Carbon Dioxide 14 L BUN 44 H Creatinine 3.0 H Glucose 115 H POC Glucose Lactic Acid Calcium 7.3 L Ionized Calcium Phosphorus 5.40 H Magnesium ALT < 5 L Alkaline Phosphatase 17 L Total Creatine Kinase CK-MB (CK-2) Troponin T C-Reactive Protein Total Protein 4.2 L D Albumin 2.9 L Urine WBC (Auto) Urine Creatinine Salicylates Miscellaneous Test Crossmatch 05/17/17 05/17/17 05/17/17 03:44 04:00 05:00 WBC 21.9 H RBC 2.89 L Hgb 8.3 L Hct 26.4 L RDW 18.2 H Plt Count Seg Neuts % (Manual) Lymphocytes % (Manual) 7.0 L Monocytes % (Manual) Nucleated RBC % Seg Neutrophils # Man 15.3 H Lymphocytes # (Manual) Monocytes # (Manual) 1.5 H Eosinophils # (Manual) PT INR APTT D-Dimer POC ABG pH 7.199 L POC ABG pCO2 POC ABG pO2 107 H Sodium Potassium Chloride 111.7 H Carbon Dioxide 16 L BUN 43 H Creatinine 3.4 H Glucose POC Glucose Lactic Acid Calcium 7.3 L Ionized Calcium Phosphorus Magnesium ALT Alkaline Phosphatase Total Creatine Kinase CK-MB (CK-2) Troponin T C-Reactive Protein Total Protein Albumin Urine WBC (Auto) Urine Creatinine Salicylates Miscellaneous Test Crossmatch 05/17/17 05/17/17 05/18/17 05:00 12:20 04:43 WBC RBC Hgb Hct RDW Plt Count Seg Neuts % (Manual) Lymphocytes % (Manual) Monocytes % (Manual) Nucleated RBC % Seg Neutrophils # Man Lymphocytes # (Manual) Monocytes # (Manual) Eosinophils # (Manual) PT INR APTT D-Dimer POC ABG pH 7.251 L POC ABG pCO2 POC ABG pO2 126 H Sodium Potassium Chloride Carbon Dioxide BUN Creatinine Glucose POC Glucose Lactic Acid Calcium Ionized Calcium Phosphorus Magnesium ALT Alkaline Phosphatase Total Creatine Kinase CK-MB (CK-2) Troponin T C-Reactive Protein 2.30 H Total Protein Albumin Urine WBC (Auto) Urine Creatinine Salicylates Miscellaneous Test Flexitest 1 H Crossmatch 05/18/17 05/18/17 05/18/17 14:46 21:30 Unknown WBC RBC Hgb Hct RDW Plt Count Seg Neuts % (Manual) Lymphocytes % (Manual) Monocytes % (Manual) Nucleated RBC % Seg Neutrophils # Man Lymphocytes # (Manual) Monocytes # (Manual) Eosinophils # (Manual) PT INR APTT D-Dimer POC ABG pH 7.227 L POC ABG pCO2 POC ABG pO2 126 H Sodium Potassium 3.2 L Chloride 108.9 H Carbon Dioxide 19 L BUN 44 H Creatinine 3.6 H Glucose POC Glucose 206 H Lactic Acid Calcium 7.3 L Ionized Calcium Phosphorus Magnesium ALT Alkaline Phosphatase Total Creatine Kinase CK-MB (CK-2) Troponin T C-Reactive Protein Total Protein Albumin Urine WBC (Auto) Urine Creatinine Salicylates Miscellaneous Test Crossmatch 05/18/17 05/19/17 05/19/17 Unknown 05:26 06:00 WBC 25.2 H RBC 2.76 L Hgb 8.0 L Hct 24.9 L RDW 17.7 H Plt Count Seg Neuts % (Manual) 86.0 H Lymphocytes % (Manual) 1.0 L Monocytes % (Manual) Nucleated RBC % Seg Neutrophils # Man 21.7 H Lymphocytes # (Manual) 0.3 L Monocytes # (Manual) 1.5 H Eosinophils # (Manual) PT INR APTT D-Dimer POC ABG pH 7.216 L POC ABG pCO2 47.0 H POC ABG pO2 Sodium Potassium Chloride Carbon Dioxide BUN Creatinine Glucose POC Glucose 173 H Lactic Acid Calcium Ionized Calcium Phosphorus Magnesium ALT Alkaline Phosphatase Total Creatine Kinase CK-MB (CK-2) Troponin T C-Reactive Protein Total Protein Albumin Urine WBC (Auto) Urine Creatinine Salicylates Miscellaneous Test Crossmatch 05/19/17 05/19/17 05/19/17 11:47 18:04 23:54 WBC RBC Hgb Hct RDW Plt Count Seg Neuts % (Manual) Lymphocytes % (Manual) Monocytes % (Manual) Nucleated RBC % Seg Neutrophils # Man Lymphocytes # (Manual) Monocytes # (Manual) Eosinophils # (Manual) PT INR APTT D-Dimer POC ABG pH POC ABG pCO2 POC ABG pO2 Sodium Potassium Chloride Carbon Dioxide BUN Creatinine Glucose POC Glucose 203 H 178 H Lactic Acid Calcium Ionized Calcium Phosphorus Magnesium ALT Alkaline Phosphatase Total Creatine Kinase CK-MB (CK-2) Troponin T C-Reactive Protein Total Protein Albumin Urine WBC (Auto) 78.0 H Urine Creatinine Salicylates Miscellaneous Test Crossmatch 05/19/17 05/19/17 05/20/17 Unknown Unknown 05:03 WBC 36.5 H RBC 2.71 L Hgb 7.7 L Hct 24.3 L RDW 18.3 H Plt Count Seg Neuts % (Manual) 79.0 H Lymphocytes % (Manual) 3.0 L Monocytes % (Manual) Nucleated RBC % Seg Neutrophils # Man 28.8 H Lymphocytes # (Manual) 1.1 L Monocytes # (Manual) 2.6 H Eosinophils # (Manual) PT INR APTT D-Dimer POC ABG pH 7.322 L POC ABG pCO2 46.3 H POC ABG pO2 160 H Sodium Potassium 3.5 L Chloride 108.1 H Carbon Dioxide 20 L BUN 36 H Creatinine 3.1 H Glucose 165 H POC Glucose Lactic Acid Calcium 7.7 L Ionized Calcium Phosphorus Magnesium ALT Alkaline Phosphatase Total Creatine Kinase CK-MB (CK-2) Troponin T C-Reactive Protein Total Protein Albumin Urine WBC (Auto) Urine Creatinine Salicylates Miscellaneous Test Crossmatch 05/20/17 05/20/17 05/20/17 05:30 05:30 05:44 WBC 44.4 H* RBC 2.65 L Hgb 7.6 L Hct 23.7 L RDW 18.0 H Plt Count Seg Neuts % (Manual) Lymphocytes % (Manual) 7.0 L Monocytes % (Manual) 12.0 H Nucleated RBC % Seg Neutrophils # Man 22.2 H Lymphocytes # (Manual) Monocytes # (Manual) 5.3 H Eosinophils # (Manual) PT INR APTT D-Dimer POC ABG pH POC ABG pCO2 POC ABG pO2 Sodium Potassium 3.5 L Chloride Carbon Dioxide BUN 23 H Creatinine 2.1 H Glucose 167 H POC Glucose 182 H Lactic Acid Calcium 7.7 L Ionized Calcium Phosphorus Magnesium 1.40 L ALT Alkaline Phosphatase Total Creatine Kinase CK-MB (CK-2) Troponin T C-Reactive Protein Total Protein Albumin Urine WBC (Auto) Urine Creatinine Salicylates Miscellaneous Test Crossmatch 05/20/17 05/20/17 05/20/17 11:59 13:46 13:46 WBC RBC Hgb Hct RDW Plt Count Seg Neuts % (Manual) Lymphocytes % (Manual) Monocytes % (Manual) Nucleated RBC % Seg Neutrophils # Man Lymphocytes # (Manual) Monocytes # (Manual) Eosinophils # (Manual) PT 22.6 H INR 1.89 H APTT 44.6 H D-Dimer POC ABG pH POC ABG pCO2 POC ABG pO2 Sodium Potassium Chloride Carbon Dioxide BUN Creatinine Glucose POC Glucose 162 H Lactic Acid Calcium Ionized Calcium Phosphorus Magnesium ALT Alkaline Phosphatase Total Creatine Kinase CK-MB (CK-2) Troponin T C-Reactive Protein Total Protein Albumin Urine WBC (Auto) Urine Creatinine Salicylates Miscellaneous Test Crossmatch See Detail 05/20/17 05/20/17 05/20/17 17:36 20:00 20:44 WBC 38.3 H RBC 3.60 L Hgb Hct RDW 15.8 H Plt Count Seg Neuts % (Manual) Lymphocytes % (Manual) Monocytes % (Manual) Nucleated RBC % Seg Neutrophils # Man Lymphocytes # (Manual) Monocytes # (Manual) Eosinophils # (Manual) PT 21.4 H INR 1.76 H APTT 172.2 H* D-Dimer POC ABG pH POC ABG pCO2 POC ABG pO2 Sodium Potassium Chloride Carbon Dioxide BUN Creatinine Glucose POC Glucose 144 H Lactic Acid Calcium Ionized Calcium Phosphorus Magnesium ALT Alkaline Phosphatase Total Creatine Kinase CK-MB (CK-2) Troponin T C-Reactive Protein Total Protein Albumin Urine WBC (Auto) Urine Creatinine Salicylates Miscellaneous Test Crossmatch 05/20/17 05/20/17 05/21/17 22:20 23:37 05:20 WBC RBC Hgb Hct RDW Plt Count Seg Neuts % (Manual) Lymphocytes % (Manual) Monocytes % (Manual) Nucleated RBC % Seg Neutrophils # Man Lymphocytes # (Manual) Monocytes # (Manual) Eosinophils # (Manual) PT INR APTT 42.8 H D-Dimer POC ABG pH POC ABG pCO2 POC ABG pO2 Sodium Potassium 3.5 L Chloride Carbon Dioxide BUN Creatinine 1.5 H Glucose 106 H POC Glucose 113 H Lactic Acid Calcium 7.7 L Ionized Calcium Phosphorus Magnesium ALT Alkaline Phosphatase Total Creatine Kinase CK-MB (CK-2) Troponin T C-Reactive Protein Total Protein Albumin Urine WBC (Auto) Urine Creatinine Salicylates Miscellaneous Test Crossmatch 05/21/17 05/21/17 05/21/17 05:20 05:20 05:31 WBC 31.6 H RBC Hgb Hct RDW 15.8 H Plt Count Seg Neuts % (Manual) 90.0 H Lymphocytes % (Manual) 3.0 L Monocytes % (Manual) Nucleated RBC % Seg Neutrophils # Man 28.4 H Lymphocytes # (Manual) 0.9 L Monocytes # (Manual) Eosinophils # (Manual) 1.3 H PT 19.1 H INR 1.53 H APTT 37.9 H D-Dimer POC ABG pH POC ABG pCO2 POC ABG pO2 Sodium Potassium Chloride Carbon Dioxide BUN Creatinine Glucose POC Glucose 126 H Lactic Acid Calcium Ionized Calcium Phosphorus Magnesium ALT Alkaline Phosphatase Total Creatine Kinase CK-MB (CK-2) Troponin T C-Reactive Protein Total Protein Albumin Urine WBC (Auto) Urine Creatinine Salicylates Miscellaneous Test Crossmatch 05/21/17 05/21/17 05/21/17 12:46 13:00 13:00 WBC 32.9 H RBC 3.09 L Hgb 9.0 L Hct 27.6 L RDW 16.3 H Plt Count Seg Neuts % (Manual) 86.0 H Lymphocytes % (Manual) 2.0 L Monocytes % (Manual) Nucleated RBC % 2.0 H Seg Neutrophils # Man 28.3 H Lymphocytes # (Manual) 0.7 L Monocytes # (Manual) Eosinophils # (Manual) PT INR APTT D-Dimer POC ABG pH POC ABG pCO2 POC ABG pO2 Sodium Potassium 3.3 L Chloride 108.4 H Carbon Dioxide 20 L BUN Creatinine 1.4 H Glucose 119 H POC Glucose 157 H Lactic Acid Calcium 6.5 L D Ionized Calcium Phosphorus Magnesium ALT Alkaline Phosphatase 28 L Total Creatine Kinase CK-MB (CK-2) Troponin T C-Reactive Protein Total Protein 3.2 L Albumin 1.7 L Urine WBC (Auto) Urine Creatinine Salicylates Miscellaneous Test Crossmatch 05/21/17 05/21/17 05/21/17 13:00 18:15 21:00 WBC 42.4 H* RBC 2.85 L Hgb 8.2 L Hct 25.9 L RDW 16.3 H Plt Count Seg Neuts % (Manual) 95.0 H Lymphocytes % (Manual) 3.0 L Monocytes % (Manual) Nucleated RBC % Seg Neutrophils # Man 40.3 H Lymphocytes # (Manual) Monocytes # (Manual) Eosinophils # (Manual) PT 19.7 H INR 1.59 H APTT 41.1 H D-Dimer POC ABG pH POC ABG pCO2 POC ABG pO2 Sodium Potassium Chloride Carbon Dioxide BUN Creatinine Glucose POC Glucose 149 H Lactic Acid Calcium Ionized Calcium Phosphorus Magnesium ALT Alkaline Phosphatase Total Creatine Kinase CK-MB (CK-2) Troponin T C-Reactive Protein Total Protein Albumin Urine WBC (Auto) Urine Creatinine Salicylates Miscellaneous Test Crossmatch 05/22/17 05/22/17 05/22/17 00:02 04:50 04:50 WBC RBC Hgb Hct RDW Plt Count Seg Neuts % (Manual) Lymphocytes % (Manual) Monocytes % (Manual) Nucleated RBC % Seg Neutrophils # Man Lymphocytes # (Manual) Monocytes # (Manual) Eosinophils # (Manual) PT INR APTT D-Dimer POC ABG pH POC ABG pCO2 POC ABG pO2 Sodium Potassium Chloride 109.4 H Carbon Dioxide 18 L BUN Creatinine 1.8 H Glucose 164 H POC Glucose 155 H Lactic Acid Calcium 6.6 L Ionized Calcium Phosphorus Magnesium 1.40 L ALT Alkaline Phosphatase 33 L Total Creatine Kinase CK-MB (CK-2) Troponin T C-Reactive Protein Total Protein 3.6 L Albumin 2.0 L Urine WBC (Auto) Urine Creatinine Salicylates Miscellaneous Test Crossmatch 05/22/17 05/22/17 05/22/17 04:50 04:50 05:39 WBC 41.8 H* RBC 2.65 L Hgb 7.8 L Hct 24.1 L RDW 16.5 H Plt Count Seg Neuts % (Manual) 73.0 H Lymphocytes % (Manual) 4.0 L Monocytes % (Manual) Nucleated RBC % Seg Neutrophils # Man 30.5 H Lymphocytes # (Manual) Monocytes # (Manual) 1.3 H Eosinophils # (Manual) PT 21.3 H INR 1.75 H APTT 39.4 H D-Dimer POC ABG pH POC ABG pCO2 POC ABG pO2 Sodium Potassium Chloride Carbon Dioxide BUN Creatinine Glucose POC Glucose 200 H Lactic Acid Calcium Ionized Calcium Phosphorus Magnesium ALT Alkaline Phosphatase Total Creatine Kinase CK-MB (CK-2) Troponin T C-Reactive Protein Total Protein Albumin Urine WBC (Auto) Urine Creatinine Salicylates Miscellaneous Test Crossmatch 05/22/17 05/22/17 05/22/17 05:46 10:32 11:41 WBC RBC Hgb Hct RDW Plt Count Seg Neuts % (Manual) Lymphocytes % (Manual) Monocytes % (Manual) Nucleated RBC % Seg Neutrophils # Man Lymphocytes # (Manual) Monocytes # (Manual) Eosinophils # (Manual) PT INR APTT D-Dimer POC ABG pH 7.225 L 7.317 L POC ABG pCO2 45.3 H POC ABG pO2 Sodium Potassium Chloride Carbon Dioxide BUN Creatinine Glucose POC Glucose 169 H Lactic Acid Calcium Ionized Calcium Phosphorus Magnesium ALT Alkaline Phosphatase Total Creatine Kinase CK-MB (CK-2) Troponin T C-Reactive Protein Total Protein Albumin Urine WBC (Auto) Urine Creatinine Salicylates Miscellaneous Test Crossmatch 05/22/17 05/22/17 05/22/17 12:45 18:01 22:50 WBC RBC Hgb 7.4 L 8.8 L Hct 23.5 L 27.8 L RDW Plt Count Seg Neuts % (Manual) Lymphocytes % (Manual) Monocytes % (Manual) Nucleated RBC % Seg Neutrophils # Man Lymphocytes # (Manual) Monocytes # (Manual) Eosinophils # (Manual) PT INR APTT D-Dimer POC ABG pH POC ABG pCO2 POC ABG pO2 Sodium Potassium Chloride Carbon Dioxide BUN Creatinine Glucose POC Glucose 148 H Lactic Acid Calcium Ionized Calcium Phosphorus Magnesium ALT Alkaline Phosphatase Total Creatine Kinase CK-MB (CK-2) Troponin T C-Reactive Protein Total Protein Albumin Urine WBC (Auto) Urine Creatinine Salicylates Miscellaneous Test Crossmatch 1105/23/17 05/23/17 23:53 05:15 05:15 WBC 40.9 H* RBC 3.06 L Hgb 8.9 L Hct 27.4 L RDW 16.7 H Plt Count Seg Neuts % (Manual) 93.0 H Lymphocytes % (Manual) 3.0 L Monocytes % (Manual) Nucleated RBC % Seg Neutrophils # Man 38.0 H Lymphocytes # (Manual) Monocytes # (Manual) Eosinophils # (Manual) PT INR APTT D-Dimer POC ABG pH POC ABG pCO2 POC ABG pO2 Sodium Potassium Chloride 110.6 H Carbon Dioxide 19 L BUN 18 H Creatinine 1.9 H Glucose 102 H POC Glucose 143 H Lactic Acid Calcium 7.0 L Ionized Calcium Phosphorus Magnesium ALT Alkaline Phosphatase Total Creatine Kinase CK-MB (CK-2) Troponin T C-Reactive Protein Total Protein Albumin Urine WBC (Auto) Urine Creatinine Salicylates Miscellaneous Test Crossmatch 05/23/17 05/23/17 05/23/17 05:23 06:09 08:55 WBC RBC Hgb Hct RDW Plt Count Seg Neuts % (Manual) Lymphocytes % (Manual) Monocytes % (Manual) Nucleated RBC % Seg Neutrophils # Man Lymphocytes # (Manual) Monocytes # (Manual) Eosinophils # (Manual) PT INR APTT D-Dimer POC ABG pH 7.240 L 7.297 L POC ABG pCO2 POC ABG pO2 Sodium Potassium Chloride Carbon Dioxide BUN Creatinine Glucose POC Glucose 124 H Lactic Acid Calcium Ionized Calcium Phosphorus Magnesium ALT Alkaline Phosphatase Total Creatine Kinase CK-MB (CK-2) Troponin T C-Reactive Protein Total Protein Albumin Urine WBC (Auto) Urine Creatinine Salicylates Miscellaneous Test Crossmatch Chest x-ray: report reviewed, image reviewed
[2017-05-23] MEDS: LEVOPHED 8 MG in NACL 0.9% 250ML 242 ML IV SCH (14:00)
--- NOTE | 2017-05-23 14:21 | Progress Note ---
Assessment and Plan Assessment: 1) Persistent Septic Shock - not better still on pressors and leukocytosis - leukocytosias likely from recent splenectomy; due to severe C diff colitis . CRP=14 -->2.3. Procal=2.4. 2) Severe C diff Colitis: severe-recently exposed to broad spectrum abx. CT abd showed colitis. 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 reactive from colitis versus real 4) LUIS-worsening - now on HD 6) COPD 7) Resp failure Plan: -repeat blood cx, CRP, PCT, sputum -continue meropenem to cover empirically peritonitis and IV flagyl for now since she had subtotal colectomy -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: Prevnar single dose and 8 weeks later Pneumovax Haemophilus influenza vaccine - one dose Menactra - (meningococcal vaccine) - one dose -close monitoring I am covering the weekend Thank you Dr Mejia for your consultation, will follow up with you. Winifred Guerrero MD Infectious Diseases Specialist [facility] ([facility] M [phone] O [phone] Subjective Date of service: 05/23/17 Principal diagnosis: Septic shock,C. diff colitis Interval history: Remains critically ill on levophed at 14 mcg/min, sedated, intubated Microbiology: Blood cultures: 05/05 neg Urine cultures: 05/05 neg 05/19 billy Stool cultures: C diff 05/04 POSITIVE Resp culture: 05/16 neg Current Antimicrobials: Vancomycin PO 05/05 - no given Metronidazole 05/05 meropenem 05/17 Previous Antimicrobials: Zosyn Levaquin Vancomycin PO Metronidazole Vanco rectal 05/07 Ceftriaxone 05/11 Objective - Exam Narrative Exam: General appearance: sedated on the vent Eyes: anicteric sclerae HENT: Atraumatic; oropharynx +ETT Neck: Trachea midline; supple, no thyromegaly or lymphadenopathy Lungs: scattered rhonchi CV: rrr Abdomen: Soft, +surgical wound Ileostomy bag and JAVAN drain with small amount of pinkish drainage. Extremities: + peripheral edema Skin: Normal temperature, turgor and texture; no rash, ulcers or subcutaneous nodules Psych: Anxious. Neuro: alert and oriented x 3. Moving all extermities Lines: right SC TLC - Constitutional Vitals: Vital Signs Temp Pulse Resp BP Pulse Ox 96.6 F L 103 H 21 99/57 98 05/23/17 11:50 05/23/17 13:59 05/23/17 13:30 05/23/17 13:59 05/23/17 13:30 Temperature -Last 24 Hours Temperature 96.6 F Temperature 96.6 F Temperature 98.4 F Temperature 98.8 F Temperature 97.6 F Temperature 97.6 F Temperature 97.8 F Temperature 98 F Temperature 98.1 F Temperature 98 F Temperature 97.5 F Temperature 98 F - Labs CBC & Chem 7: 05/23/17 05:15 05/23/17 05:15 Labs: Abnormal lab results 05/20/17 05/21/17 05/22/17 Range/Units 13:46 12:46 18:01 WBC (4.5-11.0) K/mm3 RBC (3.65-5.03) M/mm3 Hgb (10.1-14.3) gm/dl Hct (30.3-42.9) % RDW (13.2-15.2) % Seg Neuts % (Manual) (40.0-70.0) % Lymphocytes % (Manual) (13.4-35.0) % Seg Neutrophils # Man (1.8-7.7) K/mm3 POC ABG pH (7.35-7.45) Chloride (98-107) mmol/L Carbon Dioxide (22-30) mmol/L BUN (7-17) mg/dL Creatinine (0.7-1.2) mg/dL Glucose (65-100) mg/dL POC Glucose 157 H 148 H (70-105) Calcium (8.4-10.2) mg/dL Crossmatch See Detail 05/22/17 05/22/17 05/23/17 Range/Units 22:50 23:53 05:15 WBC (4.5-11.0) K/mm3 RBC (3.65-5.03) M/mm3 Hgb 8.8 L (10.1-14.3) gm/dl Hct 27.8 L (30.3-42.9) % RDW (13.2-15.2) % Seg Neuts % (Manual) (40.0-70.0) % Lymphocytes % (Manual) (13.4-35.0) % Seg Neutrophils # Man (1.8-7.7) K/mm3 POC ABG pH (7.35-7.45) Chloride 110.6 H (98-107) mmol/L Carbon Dioxide 19 L (22-30) mmol/L BUN 18 H (7-17) mg/dL Creatinine 1.9 H (0.7-1.2) mg/dL Glucose 102 H (65-100) mg/dL POC Glucose 143 H (70-105) Calcium 7.0 L (8.4-10.2) mg/dL Crossmatch 05/23/17 05/23/17 05/23/17 Range/Units 05:15 05:23 06:09 WBC 40.9 H* (4.5-11.0) K/mm3 RBC 3.06 L (3.65-5.03) M/mm3 Hgb 8.9 L (10.1-14.3) gm/dl Hct 27.4 L (30.3-42.9) % RDW 16.7 H (13.2-15.2) % Seg Neuts % (Manual) 93.0 H (40.0-70.0) % Lymphocytes % (Manual) 3.0 L (13.4-35.0) % Seg Neutrophils # Man 38.0 H (1.8-7.7) K/mm3 POC ABG pH 7.240 L (7.35-7.45) Chloride (98-107) mmol/L Carbon Dioxide (22-30) mmol/L BUN (7-17) mg/dL Creatinine (0.7-1.2) mg/dL Glucose (65-100) mg/dL POC Glucose 124 H (70-105) Calcium (8.4-10.2) mg/dL Crossmatch 05/23/17 Range/Units 08:55 WBC (4.5-11.0) K/mm3 RBC (3.65-5.03) M/mm3 Hgb (10.1-14.3) gm/dl Hct (30.3-42.9) % RDW (13.2-15.2) % Seg Neuts % (Manual) (40.0-70.0) % Lymphocytes % (Manual) (13.4-35.0) % Seg Neutrophils # Man (1.8-7.7) K/mm3 POC ABG pH 7.297 L (7.35-7.45) Chloride (98-107) mmol/L Carbon Dioxide (22-30) mmol/L BUN (7-17) mg/dL Creatinine (0.7-1.2) mg/dL Glucose (65-100) mg/dL POC Glucose (70-105) Calcium (8.4-10.2) mg/dL Crossmatch
[2017-05-23] MEDS: D5/0.45NS 1,000 ML IV SCH (15:10)
[2017-05-23] MEDS: HEPARIN IV PRN (15:17)
[2017-05-23] MEDS: PEPCID IV SCH (15:25)
[2017-05-23] MEDS ORDERED: TPN ADULT 1,560 ML IV SCH (20:00)
[2017-05-24] MEDS: FLORANEX PO SCH ×4 (00:11→20:08)
[2017-05-24] MEDS: FLAGYL 500 MG/100 ML 500 MG/100 ML BAG IV SCH ×4 (00:25→17:48)
[2017-05-24] MEDS: MORPHINE IV PRN ×3 (02:20→20:36)
[2017-05-24] MEDS: LEVOPHED 8 MG in NACL 0.9% 250ML 242 ML IV SCH (03:13)
--- NOTE | 2017-05-24 04:43 | XRay Report ---
FINAL REPORT PROCEDURE: XR CHEST 1V AP TECHNIQUE: Chest radiograph anteroposterior view. CPT 41790 HISTORY: acute respiratory failure on vent COMPARISON: 05/20/2017 FINDINGS: Heart: Normal. Mediastinum/Vessels: Normal. Lungs/Pleural space: There are small bilateral pleural effusions. The lungs are well-expanded. There are no pneumothoraces.. Bony thorax: No acute osseous abnormality. Life support devices: The endotracheal tube is in the mid trachea. The NG tube is in the stomach. There is a left-sided PICC line. The tip the superior vena cava.. IMPRESSION: The heart size is normal.. There are small bilateral pleural effusions. The lungs are well-expanded. There are no pneumothoraces.. The endotracheal tube is in the mid trachea. The NG tube is in the stomach. There is a left-sided PICC line. The tip the superior vena cava..
[2017-05-24] MEDS: NOVOLOG SUB-Q SCH ×3 (06:41→18:10)
[2017-05-24 07:29] LABS: Hematocrit 26.2 % (30.3-42.9); Hemoglobin 8.5 gm/dl (10.1-14.3); Mean Corpuscular HGB Conc 32 % (30-34); Mean Corpuscular Hemoglobin 29 pg (28-32); Mean Corpuscular Volume 90 fl (79-97); Platelet Count 166 K/mm3 (140-440); Red Cell Distribution Width 16.8 % (13.2-15.2)
[2017-05-24 07:44] LABS: Calcium 7.6 mg/dL (8.4-10.2); Magnesium 1.7 mg/dL (1.7-2.3); Phosphorous 2.7 mg/dL (2.5-4.5)
[2017-05-24] MEDS: DUONEB *Not for PRN Use IH SCH ×4 (07:59→19:43)
[2017-05-24] MEDS: PULMICORT IH SCH ×2 (07:59→19:43)
[2017-05-24] MEDS: BROVANA NEBU IH SCH ×2 (07:59→19:43)
[2017-05-24 08:51] LABS: Basophils % (Manual) 0 % (0.0-1.8); Blastocytes % (Manual) 0 %; Eosinophils % (Manual) 0 % (0.0-4.3)
[2017-05-24 08:52] LABS: White Blood Count 36.9 K/mm3 (4.5-11.0)
[2017-05-24 08:53] LABS: Anisocytosis 1+; Macrocytosis 2+; Ovalocytes 1+; Polychromasia 1+; Tear Drop Cells Rare
[2017-05-24 08:54] LABS: Diff Status Complete; Platelet Estimate Consistent w Auto; Poikilocytosis Rare
--- NOTE | 2017-05-24 10:42 | Progress Note ---
Assessment and Plan POD #3 Pt awake & alert. still intubated but appears to be breathing comfortably. responding well to questions. BP systolic at 125 (levophed down to 4) Abd soft. ostomy pink and functioning well TPN started. surgically stable weaning off vent as keara. neg drainage from JAVAN continue present care Selected Entries 05/24/17 05/24/17 08:31 09:01 Pulse Rate 84 Arterial Blood 130/56 Pressure Laboratory Tests 05/24/17 05/24/17 07:16 07:16 WBC 36.9 H Hgb 8.5 L Hct 26.2 L Sodium 142 Potassium 4.0 Chloride 107.0 Carbon Dioxide 24 BUN 15 Creatinine 1.5 H Objective Vital Signs - 12hr 05/23/17 05/23/17 05/23/17 22:45 23:01 23:15 Temperature Pulse Rate 141 H 76 77 Pulse Rate [ Anterior Right Upper Lobe] Pulse Rate [ From Monitor] Respiratory 17 18 18 Rate Respiratory Rate [Anterior Right Upper Lobe] Blood Pressure 122/59 122/59 122/59 O2 Sat by Pulse 100 100 100 Oximetry 05/23/17 05/23/17 05/23/17 23:31 23:43 23:45 Temperature Pulse Rate 87 89 88 Pulse Rate [ Anterior Right Upper Lobe] Pulse Rate [ From Monitor] Respiratory 18 19 Rate Respiratory Rate [Anterior Right Upper Lobe] Blood Pressure 122/59 122/59 122/59 O2 Sat by Pulse 100 100 100 Oximetry 05/24/17 05/24/17 05/24/17 00:00 00:15 00:31 Temperature 96.0 F L Pulse Rate 85 73 90 Pulse Rate [ Anterior Right Upper Lobe] Pulse Rate [ 86 From Monitor] Respiratory 19 19 19 Rate Respiratory Rate [Anterior Right Upper Lobe] Blood Pressure 121/58 121/58 121/58 O2 Sat by Pulse 100 100 100 Oximetry 05/24/17 05/24/17 05/24/17 00:45 01:01 01:15 Temperature Pulse Rate 85 89 86 Pulse Rate [ Anterior Right Upper Lobe] Pulse Rate [ From Monitor] Respiratory 20 20 17 Rate Respiratory Rate [Anterior Right Upper Lobe] Blood Pressure 121/58 121/58 121/58 O2 Sat by Pulse 100 100 100 Oximetry 05/24/17 05/24/17 05/24/17 01:31 01:45 02:00 Temperature Pulse Rate 90 78 90 Pulse Rate [ Anterior Right Upper Lobe] Pulse Rate [ From Monitor] Respiratory 19 19 18 Rate Respiratory Rate [Anterior Right Upper Lobe] Blood Pressure 121/58 121/58 105/58 O2 Sat by Pulse 100 100 100 Oximetry 05/24/17 05/24/17 05/24/17 02:15 02:31 02:45 Temperature Pulse Rate 92 H 86 83 Pulse Rate [ Anterior Right Upper Lobe] Pulse Rate [ From Monitor] Respiratory 19 20 18 Rate Respiratory Rate [Anterior Right Upper Lobe] Blood Pressure 105/58 105/58 105/58 O2 Sat by Pulse 100 100 100 Oximetry 05/24/17 05/24/17 05/24/17 03:01 03:14 03:15 Temperature Pulse Rate 85 84 82 Pulse Rate [ Anterior Right Upper Lobe] Pulse Rate [ From Monitor] Respiratory 18 19 Rate Respiratory Rate [Anterior Right Upper Lobe] Blood Pressure 105/58 105/58 105/58 O2 Sat by Pulse 100 100 Oximetry 05/24/17 05/24/17 05/24/17 03:31 03:45 04:00 Temperature 96.3 F L Pulse Rate 83 88 77 Pulse Rate [ Anterior Right Upper Lobe] Pulse Rate [ 92 H From Monitor] Respiratory 20 21 20 Rate Respiratory Rate [Anterior Right Upper Lobe] Blood Pressure 105/58 105/58 96/51 O2 Sat by Pulse 100 100 100 Oximetry 05/24/17 05/24/17 05/24/17 04:15 04:31 04:45 Temperature Pulse Rate 77 85 90 Pulse Rate [ Anterior Right Upper Lobe] Pulse Rate [ From Monitor] Respiratory 20 18 19 Rate Respiratory Rate [Anterior Right Upper Lobe] Blood Pressure 96/51 96/51 96/51 O2 Sat by Pulse 100 100 100 Oximetry 05/24/17 05/24/17 05/24/17 05:01 05:15 05:31 Temperature Pulse Rate 85 92 H Pulse Rate [ Anterior Right Upper Lobe] Pulse Rate [ From Monitor] Respiratory 19 20 Rate Respiratory Rate [Anterior Right Upper Lobe] Blood Pressure 96/51 96/51 96/51 O2 Sat by Pulse 100 100 100 Oximetry 05/24/17 05/24/17 05/24/17 05:45 06:00 06:15 Temperature Pulse Rate 95 H 90 Pulse Rate [ Anterior Right Upper Lobe] Pulse Rate [ From Monitor] Respiratory 18 18 Rate Respiratory Rate [Anterior Right Upper Lobe] Blood Pressure 96/51 89/51 89/51 O2 Sat by Pulse 100 100 100 Oximetry 05/24/17 05/24/17 05/24/17 06:31 06:45 07:01 Temperature Pulse Rate 88 85 85 Pulse Rate [ Anterior Right Upper Lobe] Pulse Rate [ From Monitor] Respiratory 20 21 22 Rate Respiratory Rate [Anterior Right Upper Lobe] Blood Pressure 89/51 89/51 89/51 O2 Sat by Pulse 100 100 100 Oximetry 05/24/17 05/24/17 05/24/17 07:15 07:31 07:45 Temperature Pulse Rate 83 86 80 Pulse Rate [ Anterior Right Upper Lobe] Pulse Rate [ From Monitor] Respiratory 18 19 18 Rate Respiratory Rate [Anterior Right Upper Lobe] Blood Pressure 89/51 89/51 89/51 O2 Sat by Pulse 100 100 100 Oximetry 05/24/17 05/24/17 05/24/17 07:59 08:00 08:09 Temperature 98.5 F Pulse Rate 78 81 Pulse Rate [ 98 H Anterior Right Upper Lobe] Pulse Rate [ 87 From Monitor] Respiratory 19 Rate Respiratory 18 Rate [Anterior Right Upper Lobe] Blood Pressure 110/56 110/56 O2 Sat by Pulse 100 100 Oximetry 05/24/17 05/24/17 05/24/17 08:13 08:15 08:31 Temperature Pulse Rate 91 H 84 Pulse Rate [ 90 Anterior Right Upper Lobe] Pulse Rate [ From Monitor] Respiratory 21 19 Rate Respiratory 18 Rate [Anterior Right Upper Lobe] Blood Pressure 110/56 89/51 O2 Sat by Pulse 100 100 Oximetry 05/24/17 05/24/17 08:45 09:01 Temperature Pulse Rate 82 84 Pulse Rate [ Anterior Right Upper Lobe] Pulse Rate [ From Monitor] Respiratory 19 18 Rate Respiratory Rate [Anterior Right Upper Lobe] Blood Pressure 89/51 89/51 O2 Sat by Pulse 100 100 Oximetry - Labs 05/24/17 07:16 05/24/17 07:16 Diabetes panel 05/24/17 Range/Units 07:16 Sodium 142 (137-145) mmol/L Potassium 4.0 (3.6-5.0) mmol/L Chloride 107.0 (98-107) mmol/L Carbon Dioxide 24 (22-30) mmol/L BUN 15 (7-17) mg/dL Creatinine 1.5 H (0.7-1.2) mg/dL Glucose 130 H (65-100) mg/dL Calcium 7.6 L (8.4-10.2) mg/dL Calcium panel 05/24/17 Range/Units 07:16 Calcium 7.6 L (8.4-10.2) mg/dL Phosphorus 2.70 (2.5-4.5) mg/dL Pituitary panel 05/24/17 Range/Units 07:16 Sodium 142 (137-145) mmol/L Potassium 4.0 (3.6-5.0) mmol/L Chloride 107.0 (98-107) mmol/L Carbon Dioxide 24 (22-30) mmol/L BUN 15 (7-17) mg/dL Creatinine 1.5 H (0.7-1.2) mg/dL Glucose 130 H (65-100) mg/dL Calcium 7.6 L (8.4-10.2) mg/dL Adrenal panel 05/24/17 Range/Units 07:16 Sodium 142 (137-145) mmol/L Potassium 4.0 (3.6-5.0) mmol/L Chloride 107.0 (98-107) mmol/L Carbon Dioxide 24 (22-30) mmol/L BUN 15 (7-17) mg/dL Creatinine 1.5 H (0.7-1.2) mg/dL Glucose 130 H (65-100) mg/dL Calcium 7.6 L (8.4-10.2) mg/dL
[2017-05-24] MEDS: PEPCID IV SCH (11:05)
[2017-05-24] MEDS: MERREM 1,000 MG in NACL 0.9% 20 ML IV SCH (11:32)
--- NOTE | 2017-05-24 11:42 | Progress Note ---
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 difficile colitis/severe sepsis, continue meropenem and Flagyl per ID --Sinus tachycardia; resolved --Acute hypoxic respiratory failure; on vent,sedation, nebulizers, wean as tolerated and extubate, pulmonary --Hypokalemia : Replace per protocol monitor levels --Severe sepsis; secondary to colitis, possible pneumonia, ID added meropenem --Acute kidney injury: hemodialysis as needed per renal --UTI; s/p 3 days antibiotics per ID --Metabolic acidosis; hemodialysis as needed --COPD with exacerbation; on vent ,nebulizers and IV antibiotics --Severe hypoalbuminemia/protein calorie Malnutrition; nutritional supplements and supportive care --DVT prophylaxis; heparin renal dose --Full CODE STATUS Plan of care reviewed with the patient, her nurse and the family member at the bedside monitor the patient and adjust management as needed 31 minutes critical care time The high probability of a clinically significant, sudden or life threatening deterioration of the [pulmonary ,GI,CV,ID and renal systems ] re and renalquired my full and direct attention, intervention and personal management. The aggregate critical care time was [31 ] minutes. This time is in addition to time spent performing reported procedures but includes the following: [x] Data Review and interpretation [x] Patient assessment and monitoring of vital signs [x] Documentation, counseling [x] Medication orders and management History Interval history: Patient seen and examined Medical records reviewed Remains intubated on ventilatory support Alert and awake not in acute distress No overnight events reported by the nursing staff Pressor dependent, on TPN Hospitalist Physical - Constitutional Vitals: Temp Pulse Resp BP Pulse Ox 98.5 F 84 18 89/51 100 05/24/17 08:00 05/24/17 09:01 05/24/17 09:01 05/24/17 09:01 05/24/17 09:01 General appearance: Present: mild distress, well-nourished, other (intubatd and vent supported) - EENT Eyes: Present: PERRL, EOM intact - Neck Neck: Present: supple, normal ROM - Respiratory Respiratory effort: normal Respiratory: bilateral: diminished, rhonchi, negative: rales, wheezing - Cardiovascular Rhythm: regular Heart Sounds: Present: S1 & S2 - Extremities Extremities: no ischemia Extremity abnormal: edema - Abdominal General gastrointestinal: soft, non-tender, non-distended, normal bowel sounds - Integumentary Integumentary: Present: clear, warm - Psychiatric Psychiatric: other (intubated on vent) - Neurologic Neurologic: other (intubated on vent) Results - Labs CBC & Chem 7: 05/24/17 07:16 05/24/17 07:16 Labs: Laboratory Last Values WBC 36.9 K/mm3 (4.5-11.0) H 05/24/17 07:16 RBC 2.90 M/mm3 (3.65-5.03) L 05/24/17 07:16 Hgb 8.5 gm/dl (10.1-14.3) L 05/24/17 07:16 Hct 26.2 % (30.3-42.9) L 05/24/17 07:16 MCV 90 fl (79-97) 05/24/17 07:16 MCH 29 pg (28-32) 05/24/17 07:16 MCHC 32 % (30-34) 05/24/17 07:16 RDW 16.8 % (13.2-15.2) H 05/24/17 07:16 Plt Count 166 K/mm3 (140-440) 05/24/17 07:16 [place] % (Auto) % (0.0-7.3) 05/22/17 04:50 Eos % (Auto) % (0.0-4.3) 05/22/17 04:50 [place] # K/mm3 (0.0-0.8) 05/22/17 04:50 Eos # K/mm3 (0.0-0.4) 05/22/17 04:50 Baso # 0.0 K/mm3 (0.0-0.1) 05/22/17 04:50 Add Manual Diff Complete 05/24/17 07:16 Total Counted 200 05/24/17 07:16 Seg Neutrophils % [employer] 05/24/17 07:16 Seg Neuts % (Manual) 96.5 % (40.0-70.0) H 05/24/17 07:16 Band Neutrophils % 0.5 % 05/24/17 07:16 Lymphocytes % (Manual) 0 % (13.4-35.0) L 05/24/17 07:16 Reactive Lymphs % (Man) 0.5 % 05/24/17 07:16 Monocytes % (Manual) 2.5 % (0.0-7.3) 05/24/17 07:16 Eosinophils % (Manual) 0 % (0.0-4.3) 05/24/17 07:16 Basophils % (Manual) 0 % (0.0-1.8) 05/24/17 07:16 Metamyelocytes % 0 % 05/24/17 07:16 Myelocytes % 0 % 05/24/17 07:16 Promyelocytes % 0 % 05/24/17 07:16 Blast Cells % 0 % 05/24/17 07:16 Nucleated RBC % 2.0 % (0.0-0.9) H 05/24/17 07:16 Seg Neutrophils # K/mm3 (1.8-7.7) 05/22/17 04:50 Seg Neutrophils # Man 35.6 K/mm3 (1.8-7.7) H 05/24/17 07:16 Band Neutrophils # 0.2 K/mm3 05/24/17 07:16 Lymphocytes # (Manual) 0.0 K/mm3 (1.2-5.4) L 05/24/17 07:16 Abs React Lymphs (Man) 0.2 K/mm3 05/24/17 07:16 Monocytes # (Manual) 0.9 K/mm3 (0.0-0.8) H 05/24/17 07:16 Eosinophils # (Manual) 0.0 K/mm3 (0.0-0.4) 05/24/17 07:16 Basophils # (Manual) 0.0 K/mm3 (0.0-0.1) 05/24/17 07:16 Metamyelocytes # 0.0 K/mm3 05/24/17 07:16 Myelocytes # 0.0 K/mm3 05/24/17 07:16 Promyelocytes # 0.0 K/mm3 05/24/17 07:16 Blast Cells # 0.0 K/mm3 05/24/17 07:16 WBC Morphology Not Reportable 05/24/17 07:16 Hypersegmented Neuts Not Reportable 05/24/17 07:16 Hyposegmented Neuts Not Reportable 05/24/17 07:16 Hypogranular Neuts Not Reportable 05/24/17 07:16 Smudge Cells Not Reportable 05/24/17 07:16 Toxic Granulation Not Reportable 05/24/17 07:16 Toxic Vacuolation Not Reportable 05/24/17 07:16 Dohle Bodies Not Reportable 05/24/17 07:16 Pelger-Huet Anomaly Not Reportable 05/24/17 07:16 Neisha Rods Not Reportable 05/24/17 07:16 Platelet Estimate Consistent w auto 05/24/17 07:16 Clumped Platelets Not Reportable 05/24/17 07:16 Plt Clumps, EDTA Not Reportable 05/24/17 07:16 Large Platelets Not Reportable 05/24/17 07:16 Giant Platelets Not Reportable 05/24/17 07:16 Platelet Satelliting Not Reportable 05/24/17 07:16 Plt Morphology Comment Not Reportable 05/24/17 07:16 RBC Morphology Not Reportable 05/24/17 07:16 Dimorphic RBCs Not Reportable 05/24/17 07:16 Polychromasia 1+ 05/24/17 07:16 Hypochromasia Not Reportable 05/24/17 07:16 Poikilocytosis Rare 05/24/17 07:16 Anisocytosis 1+ 05/24/17 07:16 Microcytosis Not Reportable 05/24/17 07:16 Macrocytosis 2+ 05/24/17 07:16 Spherocytes Not Reportable 05/24/17 07:16 Pappenheimer Bodies Not Reportable 05/24/17 07:16 Sickle Cells Not Reportable 05/24/17 07:16 Target Cells Not Reportable 05/24/17 07:16 Tear Drop Cells Rare 05/24/17 07:16 Ovalocytes 1+ 05/24/17 07:16 Stomatocytes Few 05/21/17 05:20 Helmet Cells Not Reportable 05/24/17 07:16 Frankel-Selz Bodies Not Reportable 05/24/17 07:16 [place] Rings Not Reportable 05/24/17 07:16 [place] Cells Not Reportable 05/24/17 07:16 Bite Cells Not Reportable 05/24/17 07:16 Crenated Cell Not Reportable 05/24/17 07:16 Elliptocytes Not Reportable 05/24/17 07:16 Acanthocytes (Spur) Not Reportable 05/24/17 07:16 Rouleaux Not Reportable 05/24/17 07:16 Hemoglobin C Crystals Not Reportable 05/24/17 07:16 Schistocytes Not Reportable 05/24/17 07:16 Malaria parasites Not Reportable 05/24/17 07:16 Herve Bodies Not Reportable 05/24/17 07:16 Hem Pathologist Commnt No 05/24/17 07:16 PT 21.3 Sec. (12.2-14.9) H 05/22/17 04:50 INR 1.75 (0.87-1.13) H 05/22/17 04:50 APTT 39.4 Sec. (24.2-36.6) H 05/22/17 04:50 D-Dimer 8441.57 ng/mlDDU (0-234) H 05/04/17 Unknown POC ABG pH 7.297 (7.35-7.45) L 05/23/17 08:55 POC ABG pCO2 41.0 (35-45) 05/23/17 08:55 POC ABG pO2 98 (80-105) 05/23/17 08:55 POC ABG HCO3 20.0 05/23/17 08:55 POC ABG Total CO2 21 05/23/17 08:55 POC ABG O2 Sat 97 05/23/17 08:55 POC ABG Base Excess -6 05/23/17 08:55 FiO2 30 % 05/23/17 08:55 Sodium 142 mmol/L (137-145) 05/24/17 07:16 Potassium 4.0 mmol/L (3.6-5.0) 05/24/17 07:16 Chloride 107.0 mmol/L (98-107) 05/24/17 07:16 Carbon Dioxide 24 mmol/L (22-30) 05/24/17 07:16 Anion Gap 15 mmol/L 05/24/17 07:16 BUN 15 mg/dL (7-17) 05/24/17 07:16 Creatinine 1.5 mg/dL (0.7-1.2) H 05/24/17 07:16 Estimated GFR 42 ml/min 05/24/17 07:16 BUN/Creatinine Ratio 10 % 05/24/17 07:16 Glucose 130 mg/dL (65-100) H 05/24/17 07:16 POC Glucose 159 (70-105) H 05/24/17 06:14 Lactic Acid 0.60 mmol/L (0.7-2.0) L 05/16/17 00:15 Calcium 7.6 mg/dL (8.4-10.2) L 05/24/17 07:16 Ionized Calcium 3.5 mg/dL (4.8-5.6) L 05/05/17 17:45 Phosphorus 2.70 mg/dL (2.5-4.5) 05/24/17 07:16 Magnesium 1.70 mg/dL (1.7-2.3) 05/24/17 07:16 Total Bilirubin < 0.20 mg/dL (0.1-1.2) 05/22/17 04:50 AST 21 units/L (5-40) 05/22/17 04:50 ALT 11 units/L (7-56) 05/22/17 04:50 Alkaline Phosphatase 33 units/L (35-129) L 05/22/17 04:50 Total Creatine Kinase 346 units/L (30-135) H 05/05/17 05:20 CK-MB (CK-2) 8.2 ng/mL (0.0-4.0) H 05/05/17 05:20 CK-MB (CK-2) Rel Index 2.3 (0-4) 05/05/17 05:20 Troponin T 0.027 ng/mL (0.00-0.029) 05/05/17 05:20 C-Reactive Protein 7.10 mg/dL (0.00-1.30) H 05/23/17 16:55 Total Protein 3.6 g/dL (6.3-8.2) L 05/22/17 04:50 Albumin 2.0 g/dL (3.9-5) L 05/22/17 04:50 Albumin/Globulin Ratio 1.3 % 05/22/17 04:50 Triglycerides 149 mg/dL (2-149) 05/04/17 18:55 Cholesterol 185 mg/dL (50-199) 05/04/17 18:55 LDL Cholesterol Direct 103 mg/dL (50-130) 05/04/17 18:55 HDL Cholesterol 53 mg/dL (40-59) 05/04/17 18:55 Cholesterol/HDL Ratio 3.49 % 05/04/17 18:55 TSH 1.780 mlU/mL (0.270-4.200) 05/04/17 18:39 Urine Color Yellow (Yellow) 05/19/17 18:04 Urine Turbidity Clear (Clear) 05/19/17 18:04 Urine pH 5.0 (5.0-7.0) 05/19/17 18:04 Ur Specific [place] 1.014 (1.003-1.030) 05/19/17 18:04 Urine Protein 30 mg/dl mg/dL (Negative) 05/19/17 18:04 Urine Glucose (UA) Neg mg/dL (Negative) 05/19/17 18:04 Urine Ketones Neg mg/dL (Negative) 05/19/17 18:04 Urine Blood Mod (Negative) 05/19/17 18:04 Urine Nitrite Neg (Negative) 05/19/17 18:04 Urine Bilirubin Neg (Negative) 05/19/17 18:04 Urine Urobilinogen < 2.0 mg/dL (<2.0) 05/19/17 18:04 Ur Leukocyte Esterase Lg (Negative) 05/19/17 18:04 Urine WBC (Auto) 78.0 /HPF (0.0-6.0) H 05/19/17 18:04 Urine RBC (Auto) 90.0 /HPF (0.0-6.0) 05/19/17 18:04 U Epithel Cells (Auto) < 1.0 /HPF (0-13.0) 05/19/17 18:04 Urine Bacteria (Auto) 2+ /HPF (Negative) 05/19/17 18:04 Amorphous Crystals Few 05/11/17 17:50 Hyaline Casts 3 /LPF 05/19/17 18:04 Granular Casts 1 /LPF 05/19/17 18:04 Urine Mucus Few /HPF 05/19/17 18:04 Ur Yeast w Hyphae Few /HPF 05/19/17 18:04 Urine Yeast (Budding) 3+ /HPF 05/19/17 18:04 Urine Creatinine 28.0 mg/dL (0.1-20.0) H 05/05/17 Unknown Urine Sodium 129 mmol/L 05/05/17 Unknown Urine Potassium 3.67 mmol/L 05/05/17 Unknown Urine Chloride 115.6 mmolL (110-250) 05/05/17 Unknown Salicylates 0.3 mg/dL (2.8-20.0) L 05/04/17 18:39 Urine Opiates Screen Presumptive negative 05/04/17 02:20 Urine Methadone Screen Presumptive negative 05/04/17 02:20 Acetaminophen < 15.0 ug/mL (10.0-30.0) 05/04/17 18:39 Ur Barbiturates Screen Presumptive negative 05/04/17 02:20 Ur Phencyclidine Scrn Presumptive negative 05/04/17 02:20 Ur Amphetamines Screen Presumptive negative 05/04/17 02:20 U Benzodiazepines Scrn Presumptive negative 05/04/17 02:20 Urine Cocaine Screen Presumptive negative 05/04/17 02:20 U Marijuana (THC) Screen Presumptive negative 05/04/17 02:20 Drugs of Abuse Note Disclamer 05/04/17 02:20 Plasma/Serum Alcohol < 0.01 gm% (0-0.07) 05/04/17 18:39 Hepatitis A IgM Ab Non-reactive (NonReactive) 05/20/17 17:49 Hep Bs Antigen Non-reactive (Negative) 05/20/17 17:49 Hep B Core IgM Ab Non-reactive (NonReactive) 05/20/17 17:49 Hepatitis C Antibody Non-reactive (NonReactive) 05/20/17 17:49 Miscellaneous Test Flexitest 1 H 05/17/17 12:20 Blood Type AB POSITIVE 05/20/17 13:46 Antibody Screen Negative 05/20/17 13:46 Crossmatch See Detail 05/20/17 13:46
--- NOTE | 2017-05-24 11:44 | Progress Note ---
Assessment and Plan - Patient Problems (1) S/P laparotomy Current Visit: Yes Status: Acute (2) Acute respiratory failure Current Visit: Yes Status: Acute (3) Diarrhea Current Visit: Yes Status: Acute (4) Acute exacerbation of chronic obstructive pulmonary disease (COPD) Current Visit: No Status: Acute (5) Acute hypercapnic respiratory failure Current Visit: No Status: Acute (6) Leukocytosis Current Visit: No Status: Acute Qualifiers: Leukocytosis type: unspecified Qualified Code(s): D72.829 - Elevated white blood cell count, unspecified (7) Sepsis Current Visit: No Status: Acute Subjective Principal diagnosis: Septic shock,C. diff colitis Interval history: on vent Objective Vital Signs - 12hr 05/23/17 05/23/17 05/24/17 23:43 23:45 00:00 Temperature 96.0 F L Pulse Rate 89 88 85 Pulse Rate [ Anterior Right Upper Lobe] Pulse Rate [ 86 From Monitor] Respiratory 19 19 Rate Respiratory Rate [Anterior Right Upper Lobe] Blood Pressure 122/59 122/59 121/58 O2 Sat by Pulse 100 100 100 Oximetry 05/24/17 05/24/17 05/24/17 00:15 00:31 00:45 Temperature Pulse Rate 73 90 85 Pulse Rate [ Anterior Right Upper Lobe] Pulse Rate [ From Monitor] Respiratory 19 19 20 Rate Respiratory Rate [Anterior Right Upper Lobe] Blood Pressure 121/58 121/58 121/58 O2 Sat by Pulse 100 100 100 Oximetry 05/24/17 05/24/17 05/24/17 01:01 01:15 01:31 Temperature Pulse Rate 89 86 90 Pulse Rate [ Anterior Right Upper Lobe] Pulse Rate [ From Monitor] Respiratory 20 17 19 Rate Respiratory Rate [Anterior Right Upper Lobe] Blood Pressure 121/58 121/58 121/58 O2 Sat by Pulse 100 100 100 Oximetry 05/24/17 05/24/17 05/24/17 01:45 02:00 02:15 Temperature Pulse Rate 78 90 92 H Pulse Rate [ Anterior Right Upper Lobe] Pulse Rate [ From Monitor] Respiratory 19 18 19 Rate Respiratory Rate [Anterior Right Upper Lobe] Blood Pressure 121/58 105/58 105/58 O2 Sat by Pulse 100 100 100 Oximetry 05/24/17 05/24/17 05/24/17 02:31 02:45 03:01 Temperature Pulse Rate 86 83 85 Pulse Rate [ Anterior Right Upper Lobe] Pulse Rate [ From Monitor] Respiratory 20 18 18 Rate Respiratory Rate [Anterior Right Upper Lobe] Blood Pressure 105/58 105/58 105/58 O2 Sat by Pulse 100 100 Oximetry 05/24/17 05/24/17 05/24/17 03:14 03:15 03:31 Temperature Pulse Rate 84 82 83 Pulse Rate [ Anterior Right Upper Lobe] Pulse Rate [ From Monitor] Respiratory 19 20 Rate Respiratory Rate [Anterior Right Upper Lobe] Blood Pressure 105/58 105/58 105/58 O2 Sat by Pulse 100 100 100 Oximetry 05/24/17 05/24/17 05/24/17 03:45 04:00 04:15 Temperature 96.3 F L Pulse Rate 88 77 77 Pulse Rate [ Anterior Right Upper Lobe] Pulse Rate [ 92 H From Monitor] Respiratory 21 20 20 Rate Respiratory Rate [Anterior Right Upper Lobe] Blood Pressure 105/58 96/51 96/51 O2 Sat by Pulse 100 100 100 Oximetry 05/24/17 05/24/17 05/24/17 04:31 04:45 05:01 Temperature Pulse Rate 85 90 85 Pulse Rate [ Anterior Right Upper Lobe] Pulse Rate [ From Monitor] Respiratory 18 19 19 Rate Respiratory Rate [Anterior Right Upper Lobe] Blood Pressure 96/51 96/51 96/51 O2 Sat by Pulse 100 100 100 Oximetry 05/24/17 05/24/17 05/24/17 05:15 05:31 05:45 Temperature Pulse Rate 92 H Pulse Rate [ Anterior Right Upper Lobe] Pulse Rate [ From Monitor] Respiratory 20 Rate Respiratory Rate [Anterior Right Upper Lobe] Blood Pressure 96/51 96/51 96/51 O2 Sat by Pulse 100 100 100 Oximetry 05/24/17 05/24/17 05/24/17 06:00 06:15 06:31 Temperature Pulse Rate 95 H 90 88 Pulse Rate [ Anterior Right Upper Lobe] Pulse Rate [ From Monitor] Respiratory 18 18 20 Rate Respiratory Rate [Anterior Right Upper Lobe] Blood Pressure 89/51 89/51 89/51 O2 Sat by Pulse 100 100 100 Oximetry 05/24/17 05/24/17 05/24/17 06:45 07:01 07:15 Temperature Pulse Rate 85 85 83 Pulse Rate [ Anterior Right Upper Lobe] Pulse Rate [ From Monitor] Respiratory 21 22 18 Rate Respiratory Rate [Anterior Right Upper Lobe] Blood Pressure 89/51 89/51 89/51 O2 Sat by Pulse 100 100 100 Oximetry 05/24/17 05/24/17 05/24/17 07:31 07:45 07:59 Temperature Pulse Rate 86 80 Pulse Rate [ 98 H Anterior Right Upper Lobe] Pulse Rate [ From Monitor] Respiratory 19 18 Rate Respiratory 18 Rate [Anterior Right Upper Lobe] Blood Pressure 89/51 89/51 O2 Sat by Pulse 100 100 Oximetry 05/24/17 05/24/17 05/24/17 08:00 08:09 08:13 Temperature 98.5 F Pulse Rate 78 81 Pulse Rate [ 90 Anterior Right Upper Lobe] Pulse Rate [ 87 From Monitor] Respiratory 19 Rate Respiratory 18 Rate [Anterior Right Upper Lobe] Blood Pressure 110/56 110/56 O2 Sat by Pulse 100 100 Oximetry 05/24/17 05/24/17 05/24/17 08:15 08:31 08:45 Temperature Pulse Rate 91 H 84 82 Pulse Rate [ Anterior Right Upper Lobe] Pulse Rate [ From Monitor] Respiratory 21 19 19 Rate Respiratory Rate [Anterior Right Upper Lobe] Blood Pressure 110/56 89/51 89/51 O2 Sat by Pulse 100 100 100 Oximetry 05/24/17 09:01 Temperature Pulse Rate 84 Pulse Rate [ Anterior Right Upper Lobe] Pulse Rate [ From Monitor] Respiratory 18 Rate Respiratory Rate [Anterior Right Upper Lobe] Blood Pressure 89/51 O2 Sat by Pulse 100 Oximetry Constitutional: no acute distress, alert, other (critically ill on vent) Eyes: non-icteric ENT: oropharynx moist Neck: supple Effort: normal Ascultation: Bilateral: clear (anterior), diminished breath sounds, other ( coarse BS bilaterally) Percussion: Bilateral: not dull Cardiovascular: regular rate and rhythm (no mrg) Gastrointestinal: hypoactive bowel sounds, tender, other (distended, ostomy looks good with some liquid stool in bag, brown + old blood) Integumentary: normal Extremities: no cyanosis, pink and warm, anasarca (1+ bilateral LE edema) Neurologic: normal mental status, non-focal exam, pupils equal and round, CN II- XII normal Psychiatric: mood appropriate, affect normal CBC and BMP: 05/24/17 07:16 05/24/17 07:16 ABG, PT/INR, D-dimer: ABG POC ABG pH 7.297 (7.35-7.45) L 05/23/17 08:55 POC ABG pCO2 41.0 (35-45) 05/23/17 08:55 POC ABG pO2 98 (80-105) 05/23/17 08:55 POC ABG HCO3 20.0 05/23/17 08:55 POC ABG Total CO2 21 05/23/17 08:55 POC ABG O2 Sat 97 05/23/17 08:55 PT/INR, D-dimer PT 21.3 Sec. (12.2-14.9) H 05/22/17 04:50 INR 1.75 (0.87-1.13) H 05/22/17 04:50 D-Dimer 8441.57 ng/mlDDU (0-234) H 05/04/17 Unknown Abnormal lab findings: Abnormal Labs 05/04/17 05/04/17 05/04/17 02:20 18:39 18:39 WBC 24.3 H RBC Hgb Hct RDW 16.4 H Plt Count 658 H Seg Neuts % (Manual) 94.5 H Lymphocytes % (Manual) 2.5 L Monocytes % (Manual) Nucleated RBC % Seg Neutrophils # Man 23.0 H Lymphocytes # (Manual) 0.6 L Monocytes # (Manual) Eosinophils # (Manual) PT INR APTT D-Dimer POC ABG pH POC ABG pCO2 POC ABG pO2 Sodium Potassium 3.2 L Chloride 92.6 L Carbon Dioxide 14 L BUN 66 H Creatinine 6.5 H Glucose POC Glucose Lactic Acid Calcium 7.5 L Ionized Calcium Phosphorus Magnesium ALT 5 L Alkaline Phosphatase 32 L Total Creatine Kinase CK-MB (CK-2) Troponin T C-Reactive Protein Total Protein 5.4 L Albumin 3.0 L Urine WBC (Auto) 100.0 H Urine Creatinine Salicylates Miscellaneous Test Crossmatch 05/04/17 05/04/17 05/04/17 18:39 18:55 Unknown WBC RBC Hgb Hct RDW Plt Count Seg Neuts % (Manual) Lymphocytes % (Manual) Monocytes % (Manual) Nucleated RBC % Seg Neutrophils # Man Lymphocytes # (Manual) Monocytes # (Manual) Eosinophils # (Manual) PT INR APTT D-Dimer POC ABG pH POC ABG pCO2 POC ABG pO2 Sodium Potassium Chloride Carbon Dioxide BUN Creatinine Glucose POC Glucose Lactic Acid 0.40 L Calcium Ionized Calcium Phosphorus Magnesium ALT Alkaline Phosphatase Total Creatine Kinase 155 H CK-MB (CK-2) 4.5 H Troponin T 0.033 H C-Reactive Protein Total Protein Albumin Urine WBC (Auto) Urine Creatinine Salicylates 0.3 L Miscellaneous Test Crossmatch 05/04/17 05/04/17 05/04/17 Unknown Unknown Unknown WBC RBC Hgb Hct RDW Plt Count Seg Neuts % (Manual) Lymphocytes % (Manual) Monocytes % (Manual) Nucleated RBC % Seg Neutrophils # Man Lymphocytes # (Manual) Monocytes # (Manual) Eosinophils # (Manual) PT INR APTT D-Dimer 8441.57 H POC ABG pH POC ABG pCO2 POC ABG pO2 Sodium Potassium Chloride Carbon Dioxide BUN Creatinine Glucose POC Glucose Lactic Acid 0.40 L Calcium Ionized Calcium Phosphorus Magnesium ALT Alkaline Phosphatase Total Creatine Kinase 246 H CK-MB (CK-2) 6.2 H Troponin T C-Reactive Protein Total Protein Albumin Urine WBC (Auto) Urine Creatinine Salicylates Miscellaneous Test Crossmatch 05/05/17 05/05/17 05/05/17 05:20 05:20 05:20 WBC 33.9 H RBC 3.39 L Hgb 9.3 L Hct RDW 16.7 H Plt Count 712 H Seg Neuts % (Manual) 91.0 H Lymphocytes % (Manual) 1.0 L Monocytes % (Manual) Nucleated RBC % Seg Neutrophils # Man 30.8 H Lymphocytes # (Manual) 0.3 L Monocytes # (Manual) 1.5 H Eosinophils # (Manual) PT INR APTT D-Dimer POC ABG pH POC ABG pCO2 POC ABG pO2 Sodium Potassium Chloride Carbon Dioxide 9 L* BUN 53 H Creatinine 5.4 H Glucose POC Glucose Lactic Acid Calcium 6.1 L D Ionized Calcium Phosphorus Magnesium ALT Alkaline Phosphatase Total Creatine Kinase 346 H CK-MB (CK-2) 8.2 H Troponin T C-Reactive Protein Total Protein Albumin Urine WBC (Auto) Urine Creatinine Salicylates Miscellaneous Test Crossmatch 05/05/17 05/05/17 05/05/17 10:43 17:45 17:45 WBC RBC Hgb 8.8 L Hct RDW Plt Count Seg Neuts % (Manual) Lymphocytes % (Manual) Monocytes % (Manual) Nucleated RBC % Seg Neutrophils # Man Lymphocytes # (Manual) Monocytes # (Manual) Eosinophils # (Manual) PT INR APTT D-Dimer POC ABG pH 6.872 L POC ABG pCO2 POC ABG pO2 120 H Sodium Potassium Chloride Carbon Dioxide BUN Creatinine Glucose POC Glucose Lactic Acid Calcium Ionized Calcium 3.5 L Phosphorus Magnesium ALT Alkaline Phosphatase Total Creatine Kinase CK-MB (CK-2) Troponin T C-Reactive Protein Total Protein Albumin Urine WBC (Auto) Urine Creatinine Salicylates Miscellaneous Test Crossmatch 05/05/17 05/05/17 05/05/17 17:45 20:58 Unknown WBC RBC Hgb 9.0 L Hct 29.8 L RDW Plt Count Seg Neuts % (Manual) Lymphocytes % (Manual) Monocytes % (Manual) Nucleated RBC % Seg Neutrophils # Man Lymphocytes # (Manual) Monocytes # (Manual) Eosinophils # (Manual) PT INR APTT D-Dimer POC ABG pH POC ABG pCO2 POC ABG pO2 Sodium Potassium Chloride Carbon Dioxide BUN Creatinine Glucose POC Glucose Lactic Acid Calcium Ionized Calcium Phosphorus 6.20 H Magnesium 1.20 L ALT Alkaline Phosphatase Total Creatine Kinase CK-MB (CK-2) Troponin T C-Reactive Protein Total Protein Albumin Urine WBC (Auto) Urine Creatinine 28.0 H Salicylates Miscellaneous Test Crossmatch 05/06/17 05/06/17 05/06/17 05:09 05:23 07:55 WBC RBC Hgb Hct RDW Plt Count Seg Neuts % (Manual) Lymphocytes % (Manual) Monocytes % (Manual) Nucleated RBC % Seg Neutrophils # Man Lymphocytes # (Manual) Monocytes # (Manual) Eosinophils # (Manual) PT INR APTT D-Dimer POC ABG pH 7.029 L 7.060 L POC ABG pCO2 54.8 H 48.6 H POC ABG pO2 74 L 43 L Sodium Potassium 3.5 L Chloride Carbon Dioxide 18 L D BUN 44 H Creatinine 3.5 H Glucose 252 H POC Glucose Lactic Acid Calcium 5.8 L* Ionized Calcium Phosphorus Magnesium ALT Alkaline Phosphatase Total Creatine Kinase CK-MB (CK-2) Troponin T C-Reactive Protein Total Protein Albumin Urine WBC (Auto) Urine Creatinine Salicylates Miscellaneous Test Crossmatch 05/06/17 05/06/17 05/06/17 07:55 15:28 17:30 WBC RBC Hgb Hct RDW Plt Count Seg Neuts % (Manual) Lymphocytes % (Manual) Monocytes % (Manual) Nucleated RBC % Seg Neutrophils # Man Lymphocytes # (Manual) Monocytes # (Manual) Eosinophils # (Manual) PT INR APTT D-Dimer POC ABG pH 7.066 L POC ABG pCO2 80.9 H POC ABG pO2 65 L Sodium Potassium Chloride Carbon Dioxide BUN Creatinine Glucose POC Glucose Lactic Acid Calcium Ionized Calcium Phosphorus Magnesium ALT Alkaline Phosphatase Total Creatine Kinase CK-MB (CK-2) Troponin T C-Reactive Protein 14.50 H Total Protein Albumin Urine WBC (Auto) Urine Creatinine Salicylates Miscellaneous Test Flexitest 1 H Crossmatch 05/06/17 05/06/17 05/07/17 17:30 Unknown 10:18 WBC 39.2 H 32.9 H RBC 3.27 L Hgb 9.3 L Hct 30.2 L RDW 16.4 H 17.0 H Plt Count 645 H 467 H Seg Neuts % (Manual) Lymphocytes % (Manual) 11.0 L Monocytes % (Manual) Nucleated RBC % Seg Neutrophils # Man 21.2 H Lymphocytes # (Manual) Monocytes # (Manual) 2.0 H Eosinophils # (Manual) PT INR APTT D-Dimer POC ABG pH POC ABG pCO2 POC ABG pO2 Sodium Potassium 3.4 L Chloride Carbon Dioxide BUN 41 H Creatinine 3.2 H Glucose 265 H POC Glucose Lactic Acid Calcium 6.7 L D Ionized Calcium Phosphorus Magnesium ALT Alkaline Phosphatase Total Creatine Kinase CK-MB (CK-2) Troponin T C-Reactive Protein Total Protein Albumin Urine WBC (Auto) Urine Creatinine Salicylates Miscellaneous Test Crossmatch 05/07/17 05/07/17 05/08/17 11:32 12:36 05:45 WBC 31.1 H RBC 3.41 L Hgb 9.8 L Hct RDW 16.9 H Plt Count Seg Neuts % (Manual) 96.0 H Lymphocytes % (Manual) 1.0 L Monocytes % (Manual) Nucleated RBC % Seg Neutrophils # Man 29.9 H Lymphocytes # (Manual) 0.3 L Monocytes # (Manual) Eosinophils # (Manual) PT INR APTT D-Dimer POC ABG pH 7.290 L POC ABG pCO2 48.3 H POC ABG pO2 51 L Sodium 146 H Potassium 3.1 L Chloride 109.2 H Carbon Dioxide 20 L BUN 38 H Creatinine 2.7 H Glucose 213 H POC Glucose Lactic Acid Calcium 6.6 L Ionized Calcium Phosphorus Magnesium ALT Alkaline Phosphatase Total Creatine Kinase CK-MB (CK-2) Troponin T C-Reactive Protein Total Protein Albumin Urine WBC (Auto) Urine Creatinine Salicylates Miscellaneous Test Crossmatch 05/08/17 05/08/17 05/09/17 05:45 18:55 04:05 WBC 26.1 H RBC Hgb Hct RDW 17.6 H Plt Count Seg Neuts % (Manual) Lymphocytes % (Manual) 5.0 L Monocytes % (Manual) Nucleated RBC % Seg Neutrophils # Man 16.7 H Lymphocytes # (Manual) Monocytes # (Manual) Eosinophils # (Manual) PT INR APTT D-Dimer POC ABG pH POC ABG pCO2 POC ABG pO2 Sodium 150 H Potassium Chloride 115.4 H 112.2 H Carbon Dioxide 20 L 18 L BUN 39 H 45 H Creatinine 2.4 H 2.3 H Glucose 160 H 219 H POC Glucose Lactic Acid Calcium 6.6 L 7.2 L Ionized Calcium Phosphorus Magnesium 1.40 L ALT 6 L Alkaline Phosphatase Total Creatine Kinase CK-MB (CK-2) Troponin T C-Reactive Protein Total Protein 4.1 L D Albumin 2.0 L Urine WBC (Auto) Urine Creatinine Salicylates Miscellaneous Test Crossmatch 05/09/17 05/09/17 05/09/17 04:05 05:15 05:45 WBC RBC Hgb Hct RDW Plt Count Seg Neuts % (Manual) Lymphocytes % (Manual) Monocytes % (Manual) Nucleated RBC % Seg Neutrophils # Man Lymphocytes # (Manual) Monocytes # (Manual) Eosinophils # (Manual) PT INR APTT D-Dimer POC ABG pH POC ABG pCO2 POC ABG pO2 Sodium 130 L D Potassium 3.4 L D Chloride 94.6 L Carbon Dioxide 19 L BUN 39 H Creatinine 2.1 H Glucose 549 H* 189 H POC Glucose 181 H Lactic Acid Calcium 6.6 L Ionized Calcium Phosphorus Magnesium ALT 6 L Alkaline Phosphatase 31 L Total Creatine Kinase CK-MB (CK-2) Troponin T C-Reactive Protein Total Protein 3.5 L Albumin 2.0 L Urine WBC (Auto) Urine Creatinine Salicylates Miscellaneous Test Crossmatch 05/09/17 05/09/17 05/09/17 08:03 11:08 16:15 WBC RBC Hgb Hct RDW Plt Count Seg Neuts % (Manual) Lymphocytes % (Manual) Monocytes % (Manual) Nucleated RBC % Seg Neutrophils # Man Lymphocytes # (Manual) Monocytes # (Manual) Eosinophils # (Manual) PT INR APTT D-Dimer POC ABG pH POC ABG pCO2 POC ABG pO2 Sodium Potassium Chloride 107.8 H Carbon Dioxide 21 L BUN 43 H Creatinine 2.4 H Glucose 195 H POC Glucose 299 H 111 H Lactic Acid Calcium 7.1 L Ionized Calcium Phosphorus Magnesium ALT Alkaline Phosphatase Total Creatine Kinase CK-MB (CK-2) Troponin T C-Reactive Protein Total Protein 3.9 L Albumin 2.3 L Urine WBC (Auto) Urine Creatinine Salicylates Miscellaneous Test Crossmatch 05/09/17 05/10/17 05/10/17 23:05 05:00 05:00 WBC 20.9 H RBC 3.53 L Hgb Hct RDW 17.3 H Plt Count Seg Neuts % (Manual) 72.0 H Lymphocytes % (Manual) 8.0 L Monocytes % (Manual) Nucleated RBC % Seg Neutrophils # Man 15.0 H Lymphocytes # (Manual) Monocytes # (Manual) Eosinophils # (Manual) PT INR APTT D-Dimer POC ABG pH POC ABG pCO2 POC ABG pO2 Sodium 135 L D Potassium 3.2 L Chloride Carbon Dioxide 21 L BUN 45 H Creatinine 2.2 H Glucose 308 H POC Glucose 336 H Lactic Acid Calcium 7.1 L Ionized Calcium Phosphorus Magnesium ALT 5 L Alkaline Phosphatase 30 L Total Creatine Kinase CK-MB (CK-2) Troponin T C-Reactive Protein Total Protein 3.8 L Albumin 2.1 L Urine WBC (Auto) Urine Creatinine Salicylates Miscellaneous Test Crossmatch 05/10/17 05/10/17 05/10/17 07:28 11:36 16:03 WBC RBC Hgb Hct RDW Plt Count Seg Neuts % (Manual) Lymphocytes % (Manual) Monocytes % (Manual) Nucleated RBC % Seg Neutrophils # Man Lymphocytes # (Manual) Monocytes # (Manual) Eosinophils # (Manual) PT INR APTT D-Dimer POC ABG pH POC ABG pCO2 POC ABG pO2 Sodium Potassium Chloride Carbon Dioxide BUN Creatinine Glucose POC Glucose 154 H 184 H 162 H Lactic Acid Calcium Ionized Calcium Phosphorus Magnesium ALT Alkaline Phosphatase Total Creatine Kinase CK-MB (CK-2) Troponin T C-Reactive Protein Total Protein Albumin Urine WBC (Auto) Urine Creatinine Salicylates Miscellaneous Test Crossmatch 05/10/17 05/11/17 05/11/17 21:13 06:50 06:50 WBC 24.4 H RBC Hgb Hct RDW 17.4 H Plt Count Seg Neuts % (Manual) Lymphocytes % (Manual) 5.0 L Monocytes % (Manual) Nucleated RBC % Seg Neutrophils # Man 16.3 H Lymphocytes # (Manual) Monocytes # (Manual) 1.0 H Eosinophils # (Manual) PT INR APTT D-Dimer POC ABG pH POC ABG pCO2 POC ABG pO2 Sodium Potassium 3.4 L Chloride Carbon Dioxide BUN 50 H Creatinine 2.8 H Glucose 131 H POC Glucose 188 H Lactic Acid Calcium 7.6 L Ionized Calcium Phosphorus Magnesium ALT < 5 L Alkaline Phosphatase 25 L Total Creatine Kinase CK-MB (CK-2) Troponin T C-Reactive Protein Total Protein 3.6 L Albumin 2.0 L Urine WBC (Auto) Urine Creatinine Salicylates Miscellaneous Test Crossmatch 05/11/17 05/11/17 05/11/17 09:33 11:45 15:46 WBC RBC Hgb Hct RDW Plt Count Seg Neuts % (Manual) Lymphocytes % (Manual) Monocytes % (Manual) Nucleated RBC % Seg Neutrophils # Man Lymphocytes # (Manual) Monocytes # (Manual) Eosinophils # (Manual) PT INR APTT D-Dimer POC ABG pH POC ABG pCO2 POC ABG pO2 Sodium Potassium Chloride Carbon Dioxide BUN Creatinine Glucose POC Glucose 140 H 157 H 137 H Lactic Acid Calcium Ionized Calcium Phosphorus Magnesium ALT Alkaline Phosphatase Total Creatine Kinase CK-MB (CK-2) Troponin T C-Reactive Protein Total Protein Albumin Urine WBC (Auto) Urine Creatinine Salicylates Miscellaneous Test Crossmatch 05/11/17 05/11/17 05/12/17 17:50 20:58 05:00 WBC 23.1 H RBC 3.59 L Hgb Hct RDW 17.1 H Plt Count Seg Neuts % (Manual) 94.0 H Lymphocytes % (Manual) 0 L Monocytes % (Manual) Nucleated RBC % Seg Neutrophils # Man 21.7 H Lymphocytes # (Manual) 0.0 L Monocytes # (Manual) Eosinophils # (Manual) PT INR APTT D-Dimer POC ABG pH POC ABG pCO2 POC ABG pO2 Sodium Potassium Chloride Carbon Dioxide BUN Creatinine Glucose POC Glucose 155 H Lactic Acid Calcium Ionized Calcium Phosphorus Magnesium ALT Alkaline Phosphatase Total Creatine Kinase CK-MB (CK-2) Troponin T C-Reactive Protein Total Protein Albumin Urine WBC (Auto) 27.0 H Urine Creatinine Salicylates Miscellaneous Test Crossmatch 05/12/17 05/12/1705/12/17 05:00 08:28 11:28 WBC RBC Hgb Hct RDW Plt Count Seg Neuts % (Manual) Lymphocytes % (Manual) Monocytes % (Manual) Nucleated RBC % Seg Neutrophils # Man Lymphocytes # (Manual) Monocytes # (Manual) Eosinophils # (Manual) PT INR APTT D-Dimer POC ABG pH POC ABG pCO2 POC ABG pO2 Sodium Potassium Chloride 111.7 H Carbon Dioxide BUN 53 H Creatinine 2.8 H Glucose 102 H POC Glucose 130 H 171 H Lactic Acid Calcium 6.9 L Ionized Calcium Phosphorus Magnesium ALT < 5 L Alkaline Phosphatase 25 L Total Creatine Kinase CK-MB (CK-2) Troponin T C-Reactive Protein Total Protein 3.3 L Albumin 1.7 L Urine WBC (Auto) Urine Creatinine Salicylates Miscellaneous Test Crossmatch 05/12/17 05/13/17 05/13/17 22:20 06:54 06:54 WBC 20.8 H RBC 3.17 L Hgb 9.2 L Hct 28.9 L RDW 17.7 H Plt Count Seg Neuts % (Manual) 93.0 H Lymphocytes % (Manual) 1.0 L Monocytes % (Manual) Nucleated RBC % Seg Neutrophils # Man 19.3 H Lymphocytes # (Manual) 0.2 L Monocytes # (Manual) Eosinophils # (Manual) 0.6 H PT INR APTT D-Dimer POC ABG pH POC ABG pCO2 POC ABG pO2 Sodium Potassium 3.3 L Chloride 110.0 H Carbon Dioxide 20 L BUN 48 H Creatinine 2.8 H Glucose 119 H POC Glucose 179 H Lactic Acid Calcium 7.4 L Ionized Calcium Phosphorus Magnesium ALT Alkaline Phosphatase Total Creatine Kinase CK-MB (CK-2) Troponin T C-Reactive Protein Total Protein Albumin Urine WBC (Auto) Urine Creatinine Salicylates Miscellaneous Test Crossmatch 05/13/17 05/13/17 05/13/17 07:35 12:52 23:32 WBC RBC Hgb Hct RDW Plt Count Seg Neuts % (Manual) Lymphocytes % (Manual) Monocytes % (Manual) Nucleated RBC % Seg Neutrophils # Man Lymphocytes # (Manual) Monocytes # (Manual) Eosinophils # (Manual) PT INR APTT D-Dimer POC ABG pH POC ABG pCO2 POC ABG pO2 Sodium Potassium Chloride Carbon Dioxide BUN Creatinine Glucose POC Glucose 139 H 159 H 179 H Lactic Acid Calcium Ionized Calcium Phosphorus Magnesium ALT Alkaline Phosphatase Total Creatine Kinase CK-MB (CK-2) Troponin T C-Reactive Protein Total Protein Albumin Urine WBC (Auto) Urine Creatinine Salicylates Miscellaneous Test Crossmatch 05/14/17 05/14/17 05/14/17 04:00 05:00 07:30 WBC 19.3 H RBC 3.16 L Hgb 9.1 L Hct 29.1 L RDW 17.9 H Plt Count Seg Neuts % (Manual) 87.0 H Lymphocytes % (Manual) 2.0 L Monocytes % (Manual) Nucleated RBC % Seg Neutrophils # Man 16.8 H Lymphocytes # (Manual) 0.4 L Monocytes # (Manual) 1.0 H Eosinophils # (Manual) 0.6 H PT INR APTT D-Dimer POC ABG pH POC ABG pCO2 POC ABG pO2 Sodium 146 H Potassium Chloride 114.7 H Carbon Dioxide 19 L BUN 43 H Creatinine 2.5 H Glucose POC Glucose 110 H Lactic Acid Calcium 7.5 L Ionized Calcium Phosphorus Magnesium ALT Alkaline Phosphatase Total Creatine Kinase CK-MB (CK-2) Troponin T C-Reactive Protein Total Protein Albumin Urine WBC (Auto) Urine Creatinine Salicylates Miscellaneous Test Crossmatch 05/14/17 05/14/17 05/14/17 11:43 15:44 20:10 WBC RBC Hgb Hct RDW Plt Count Seg Neuts % (Manual) Lymphocytes % (Manual) Monocytes % (Manual) Nucleated RBC % Seg Neutrophils # Man Lymphocytes # (Manual) Monocytes # (Manual) Eosinophils # (Manual) PT INR APTT D-Dimer POC ABG pH POC ABG pCO2 POC ABG pO2 Sodium Potassium Chloride Carbon Dioxide BUN Creatinine Glucose POC Glucose 169 H 201 H 223 H Lactic Acid Calcium Ionized Calcium Phosphorus Magnesium ALT Alkaline Phosphatase Total Creatine Kinase CK-MB (CK-2) Troponin T C-Reactive Protein Total Protein Albumin Urine WBC (Auto) Urine Creatinine Salicylates Miscellaneous Test Crossmatch 05/15/17 05/15/17 05/15/17 06:10 08:50 12:57 WBC RBC Hgb Hct RDW Plt Count Seg Neuts % (Manual) Lymphocytes % (Manual) Monocytes % (Manual) Nucleated RBC % Seg Neutrophils # Man Lymphocytes # (Manual) Monocytes # (Manual) Eosinophils # (Manual) PT INR APTT D-Dimer POC ABG pH POC ABG pCO2 POC ABG pO2 Sodium Potassium Chloride 113.6 H Carbon Dioxide 18 L BUN 43 H Creatinine 2.7 H Glucose 123 H POC Glucose 204 H 127 H Lactic Acid Calcium 7.2 L Ionized Calcium Phosphorus Magnesium ALT Alkaline Phosphatase Total Creatine Kinase CK-MB (CK-2) Troponin T C-Reactive Protein Total Protein Albumin Urine WBC (Auto) Urine Creatinine Salicylates Miscellaneous Test Crossmatch 05/15/17 05/15/17 05/15/17 17:43 21:29 23:51 WBC RBC Hgb Hct RDW Plt Count Seg Neuts % (Manual) Lymphocytes % (Manual) Monocytes % (Manual) Nucleated RBC % Seg Neutrophils # Man Lymphocytes # (Manual) Monocytes # (Manual) Eosinophils # (Manual) PT INR APTT D-Dimer POC ABG pH 6.983 L POC ABG pCO2 67.5 H POC ABG pO2 Sodium Potassium Chloride Carbon Dioxide BUN Creatinine Glucose POC Glucose 121 H 129 H Lactic Acid Calcium Ionized Calcium Phosphorus Magnesium ALT Alkaline Phosphatase Total Creatine Kinase CK-MB (CK-2) Troponin T C-Reactive Protein Total Protein Albumin Urine WBC (Auto) Urine Creatinine Salicylates Miscellaneous Test Crossmatch 05/16/17 05/16/17 05/16/17 00:15 06:00 07:46 WBC RBC Hgb Hct RDW Plt Count Seg Neuts % (Manual) Lymphocytes % (Manual) Monocytes % (Manual) Nucleated RBC % Seg Neutrophils # Man Lymphocytes # (Manual) Monocytes # (Manual) Eosinophils # (Manual) PT INR APTT D-Dimer POC ABG pH POC ABG pCO2 POC ABG pO2 Sodium Potassium Chloride 114.2 H Carbon Dioxide 17 L BUN 44 H Creatinine 3.3 H Glucose 118 H POC Glucose 135 H Lactic Acid 0.60 L Calcium 7.5 L Ionized Calcium Phosphorus Magnesium ALT Alkaline Phosphatase Total Creatine Kinase CK-MB (CK-2) Troponin T C-Reactive Protein Total Protein Albumin Urine WBC (Auto) Urine Creatinine Salicylates Miscellaneous Test Crossmatch 05/16/17 05/16/17 05/16/17 09:38 10:20 10:20 WBC 18.6 H RBC 3.08 L Hgb 9.0 L Hct 29.0 L RDW 18.8 H Plt Count Seg Neuts % (Manual) Lymphocytes % (Manual) 5.0 L Monocytes % (Manual) Nucleated RBC % Seg Neutrophils # Man 11.3 H Lymphocytes # (Manual) 0.9 L Monocytes # (Manual) 1.3 H Eosinophils # (Manual) PT INR APTT D-Dimer POC ABG pH 7.081 L POC ABG pCO2 46.3 H POC ABG pO2 107 H Sodium Potassium Chloride 114.9 H Carbon Dioxide 14 L BUN 44 H Creatinine 3.0 H Glucose 115 H POC Glucose Lactic Acid Calcium 7.3 L Ionized Calcium Phosphorus 5.40 H Magnesium ALT < 5 L Alkaline Phosphatase 17 L Total Creatine Kinase CK-MB (CK-2) Troponin T C-Reactive Protein Total Protein 4.2 L D Albumin 2.9 L Urine WBC (Auto) Urine Creatinine Salicylates Miscellaneous Test Crossmatch 05/17/17 05/17/17 05/17/17 03:44 04:00 05:00 WBC 21.9 H RBC 2.89 L Hgb 8.3 L Hct 26.4 L RDW 18.2 H Plt Count Seg Neuts % (Manual) Lymphocytes % (Manual) 7.0 L Monocytes % (Manual) Nucleated RBC % Seg Neutrophils # Man 15.3 H Lymphocytes # (Manual) Monocytes # (Manual) 1.5 H Eosinophils # (Manual) PT INR APTT D-Dimer POC ABG pH 7.199 L POC ABG pCO2 POC ABG pO2 107 H Sodium Potassium Chloride 111.7 H Carbon Dioxide 16 L BUN 43 H Creatinine 3.4 H Glucose POC Glucose Lactic Acid Calcium 7.3 L Ionized Calcium Phosphorus Magnesium ALT Alkaline Phosphatase Total Creatine Kinase CK-MB (CK-2) Troponin T C-Reactive Protein Total Protein Albumin Urine WBC (Auto) Urine Creatinine Salicylates Miscellaneous Test Crossmatch 05/17/17 05/17/17 05/18/17 05:00 12:20 04:43 WBC RBC Hgb Hct RDW Plt Count Seg Neuts % (Manual) Lymphocytes % (Manual) Monocytes % (Manual) Nucleated RBC % Seg Neutrophils # Man Lymphocytes # (Manual) Monocytes # (Manual) Eosinophils # (Manual) PT INR APTT D-Dimer POC ABG pH 7.251 L POC ABG pCO2 POC ABG pO2 126 H Sodium Potassium Chloride Carbon Dioxide BUN Creatinine Glucose POC Glucose Lactic Acid Calcium Ionized Calcium Phosphorus Magnesium ALT Alkaline Phosphatase Total Creatine Kinase CK-MB (CK-2) Troponin T C-Reactive Protein 2.30 H Total Protein Albumin Urine WBC (Auto) Urine Creatinine Salicylates Miscellaneous Test Flexitest 1 H Crossmatch 05/18/17 05/18/17 05/18/17 14:46 21:30 Unknown WBC RBC Hgb Hct RDW Plt Count Seg Neuts % (Manual) Lymphocytes % (Manual) Monocytes % (Manual) Nucleated RBC % Seg Neutrophils # Man Lymphocytes # (Manual) Monocytes # (Manual) Eosinophils # (Manual) PT INR APTT D-Dimer POC ABG pH 7.227 L POC ABG pCO2 POC ABG pO2 126 H Sodium Potassium 3.2 L Chloride 108.9 H Carbon Dioxide 19 L BUN 44 H Creatinine 3.6 H Glucose POC Glucose 206 H Lactic Acid Calcium 7.3 L Ionized Calcium Phosphorus Magnesium ALT Alkaline Phosphatase Total Creatine Kinase CK-MB (CK-2) Troponin T C-Reactive Protein Total Protein Albumin Urine WBC (Auto) Urine Creatinine Salicylates Miscellaneous Test Crossmatch 05/18/17 05/19/17 05/19/17 Unknown 05:26 06:00 WBC 25.2 H RBC 2.76 L Hgb 8.0 L Hct 24.9 L RDW 17.7 H Plt Count Seg Neuts % (Manual) 86.0 H Lymphocytes % (Manual) 1.0 L Monocytes % (Manual) Nucleated RBC % Seg Neutrophils # Man 21.7 H Lymphocytes # (Manual) 0.3 L Monocytes # (Manual) 1.5 H Eosinophils # (Manual) PT INR APTT D-Dimer POC ABG pH 7.216 L POC ABG pCO2 47.0 H POC ABG pO2 Sodium Potassium Chloride Carbon Dioxide BUN Creatinine Glucose POC Glucose 173 H Lactic Acid Calcium Ionized Calcium Phosphorus Magnesium ALT Alkaline Phosphatase Total Creatine Kinase CK-MB (CK-2) Troponin T C-Reactive Protein Total Protein Albumin Urine WBC (Auto) Urine Creatinine Salicylates Miscellaneous Test Crossmatch 05/19/17 05/19/17 05/19/17 11:47 18:04 23:54 WBC RBC Hgb Hct RDW Plt Count Seg Neuts % (Manual) Lymphocytes % (Manual) Monocytes % (Manual) Nucleated RBC % Seg Neutrophils # Man Lymphocytes # (Manual) Monocytes # (Manual) Eosinophils # (Manual) PT INR APTT D-Dimer POC ABG pH POC ABG pCO2 POC ABG pO2 Sodium Potassium Chloride Carbon Dioxide BUN Creatinine Glucose POC Glucose 203 H 178 H Lactic Acid Calcium Ionized Calcium Phosphorus Magnesium ALT Alkaline Phosphatase Total Creatine Kinase CK-MB (CK-2) Troponin T C-Reactive Protein Total Protein Albumin Urine WBC (Auto) 78.0 H Urine Creatinine Salicylates Miscellaneous Test Crossmatch 05/19/17 05/19/17 05/20/17 Unknown Unknown 05:03 WBC 36.5 H RBC 2.71 L Hgb 7.7 L Hct 24.3 L RDW 18.3 H Plt Count Seg Neuts % (Manual) 79.0 H Lymphocytes % (Manual) 3.0 L Monocytes % (Manual) Nucleated RBC % Seg Neutrophils # Man 28.8 H Lymphocytes # (Manual) 1.1 L Monocytes # (Manual) 2.6 H Eosinophils # (Manual) PT INR APTT D-Dimer POC ABG pH 7.322 L POC ABG pCO2 46.3 H POC ABG pO2 160 H Sodium Potassium 3.5 L Chloride 108.1 H Carbon Dioxide 20 L BUN 36 H Creatinine 3.1 H Glucose 165 H POC Glucose Lactic Acid Calcium 7.7 L Ionized Calcium Phosphorus Magnesium ALT Alkaline Phosphatase Total Creatine Kinase CK-MB (CK-2) Troponin T C-Reactive Protein Total Protein Albumin Urine WBC (Auto) Urine Creatinine Salicylates Miscellaneous Test Crossmatch 05/20/17 05/20/17 05/20/17 05:30 05:30 05:44 WBC 44.4 H* RBC 2.65 L Hgb 7.6 L Hct 23.7 L RDW 18.0 H Plt Count Seg Neuts % (Manual) Lymphocytes % (Manual) 7.0 L Monocytes % (Manual) 12.0 H Nucleated RBC % Seg Neutrophils # Man 22.2 H Lymphocytes # (Manual) Monocytes # (Manual) 5.3 H Eosinophils # (Manual) PT INR APTT D-Dimer POC ABG pH POC ABG pCO2 POC ABG pO2 Sodium Potassium 3.5 L Chloride Carbon Dioxide BUN 23 H Creatinine 2.1 H Glucose 167 H POC Glucose 182 H Lactic Acid Calcium 7.7 L Ionized Calcium Phosphorus Magnesium 1.40 L ALT Alkaline Phosphatase Total Creatine Kinase CK-MB (CK-2) Troponin T C-Reactive Protein Total Protein Albumin Urine WBC (Auto) Urine Creatinine Salicylates Miscellaneous Test Crossmatch 05/20/17 05/20/17 05/20/17 11:59 13:46 13:46 WBC RBC Hgb Hct RDW Plt Count Seg Neuts % (Manual) Lymphocytes % (Manual) Monocytes % (Manual) Nucleated RBC % Seg Neutrophils # Man Lymphocytes # (Manual) Monocytes # (Manual) Eosinophils # (Manual) PT 22.6 H INR 1.89 H APTT 44.6 H D-Dimer POC ABG pH POC ABG pCO2 POC ABG pO2 Sodium Potassium Chloride Carbon Dioxide BUN Creatinine Glucose POC Glucose 162 H Lactic Acid Calcium Ionized Calcium Phosphorus Magnesium ALT Alkaline Phosphatase Total Creatine Kinase CK-MB (CK-2) Troponin T C-Reactive Protein Total Protein Albumin Urine WBC (Auto) Urine Creatinine Salicylates Miscellaneous Test Crossmatch See Detail 05/20/17 05/20/17 05/20/17 17:36 20:00 20:44 WBC 38.3 H RBC 3.60 L Hgb Hct RDW 15.8 H Plt Count Seg Neuts % (Manual) Lymphocytes % (Manual) Monocytes % (Manual) Nucleated RBC % Seg Neutrophils # Man Lymphocytes # (Manual) Monocytes # (Manual) Eosinophils # (Manual) PT 21.4 H INR 1.76 H APTT 172.2 H* D-Dimer POC ABG pH POC ABG pCO2 POC ABG pO2 Sodium Potassium Chloride Carbon Dioxide BUN Creatinine Glucose POC Glucose 144 H Lactic Acid Calcium Ionized Calcium Phosphorus Magnesium ALT Alkaline Phosphatase Total Creatine Kinase CK-MB (CK-2) Troponin T C-Reactive Protein Total Protein Albumin Urine WBC (Auto) Urine Creatinine Salicylates Miscellaneous Test Crossmatch 05/20/17 05/20/17 05/21/17 22:20 23:37 05:20 WBC RBC Hgb Hct RDW Plt Count Seg Neuts % (Manual) Lymphocytes % (Manual) Monocytes % (Manual) Nucleated RBC % Seg Neutrophils # Man Lymphocytes # (Manual) Monocytes # (Manual) Eosinophils # (Manual) PT INR APTT 42.8 H D-Dimer POC ABG pH POC ABG pCO2 POC ABG pO2 Sodium Potassium 3.5 L Chloride Carbon Dioxide BUN Creatinine 1.5 H Glucose 106 H POC Glucose 113 H Lactic Acid Calcium 7.7 L Ionized Calcium Phosphorus Magnesium ALT Alkaline Phosphatase Total Creatine Kinase CK-MB (CK-2) Troponin T C-Reactive Protein Total Protein Albumin Urine WBC (Auto) Urine Creatinine Salicylates Miscellaneous Test Crossmatch 05/21/17 05/21/17 05/21/17 05:20 05:20 05:31 WBC 31.6 H RBC Hgb Hct RDW 15.8 H Plt Count Seg Neuts % (Manual) 90.0 H Lymphocytes % (Manual) 3.0 L Monocytes % (Manual) Nucleated RBC % Seg Neutrophils # Man 28.4 H Lymphocytes # (Manual) 0.9 L Monocytes # (Manual) Eosinophils # (Manual) 1.3 H PT 19.1 H INR 1.53 H APTT 37.9 H D-Dimer POC ABG pH POC ABG pCO2 POC ABG pO2 Sodium Potassium Chloride Carbon Dioxide BUN Creatinine Glucose POC Glucose 126 H Lactic Acid Calcium Ionized Calcium Phosphorus Magnesium ALT Alkaline Phosphatase Total Creatine Kinase CK-MB (CK-2) Troponin T C-Reactive Protein Total Protein Albumin Urine WBC (Auto) Urine Creatinine Salicylates Miscellaneous Test Crossmatch 05/21/17 05/21/17 05/21/17 12:46 13:00 13:00 WBC 32.9 H RBC 3.09 L Hgb 9.0 L Hct 27.6 L RDW 16.3 H Plt Count Seg Neuts % (Manual) 86.0 H Lymphocytes % (Manual) 2.0 L Monocytes % (Manual) Nucleated RBC % 2.0 H Seg Neutrophils # Man 28.3 H Lymphocytes # (Manual) 0.7 L Monocytes # (Manual) Eosinophils # (Manual) PT INR APTT D-Dimer POC ABG pH POC ABG pCO2 POC ABG pO2 Sodium Potassium 3.3 L Chloride 108.4 H Carbon Dioxide 20 L BUN Creatinine 1.4 H Glucose 119 H POC Glucose 157 H Lactic Acid Calcium 6.5 L D Ionized Calcium Phosphorus Magnesium ALT Alkaline Phosphatase 28 L Total Creatine Kinase CK-MB (CK-2) Troponin T C-Reactive Protein Total Protein 3.2 L Albumin 1.7 L Urine WBC (Auto) Urine Creatinine Salicylates Miscellaneous Test Crossmatch 05/21/17 05/21/17 05/21/17 13:00 18:15 21:00 WBC 42.4 H* RBC 2.85 L Hgb 8.2 L Hct 25.9 L RDW 16.3 H Plt Count Seg Neuts % (Manual) 95.0 H Lymphocytes % (Manual) 3.0 L Monocytes % (Manual) Nucleated RBC % Seg Neutrophils # Man 40.3 H Lymphocytes # (Manual) Monocytes # (Manual) Eosinophils # (Manual) PT 19.7 H INR 1.59 H APTT 41.1 H D-Dimer POC ABG pH POC ABG pCO2 POC ABG pO2 Sodium Potassium Chloride Carbon Dioxide BUN Creatinine Glucose POC Glucose 149 H Lactic Acid Calcium Ionized Calcium Phosphorus Magnesium ALT Alkaline Phosphatase Total Creatine Kinase CK-MB (CK-2) Troponin T C-Reactive Protein Total Protein Albumin Urine WBC (Auto) Urine Creatinine Salicylates Miscellaneous Test Crossmatch 05/22/17 05/22/17 05/22/17 00:02 04:50 04:50 WBC RBC Hgb Hct RDW Plt Count Seg Neuts % (Manual) Lymphocytes % (Manual) Monocytes % (Manual) Nucleated RBC % Seg Neutrophils # Man Lymphocytes # (Manual) Monocytes # (Manual) Eosinophils # (Manual) PT INR APTT D-Dimer POC ABG pH POC ABG pCO2 POC ABG pO2 Sodium Potassium Chloride 109.4 H Carbon Dioxide 18 L BUN Creatinine 1.8 H Glucose 164 H POC Glucose 155 H Lactic Acid Calcium 6.6 L Ionized Calcium Phosphorus Magnesium 1.40 L ALT Alkaline Phosphatase 33 L Total Creatine Kinase CK-MB (CK-2) Troponin T C-Reactive Protein Total Protein 3.6 L Albumin 2.0 L Urine WBC (Auto) Urine Creatinine Salicylates Miscellaneous Test Crossmatch 05/22/17 05/22/17 05/22/17 04:50 04:50 05:39 WBC 41.8 H* RBC 2.65 L Hgb 7.8 L Hct 24.1 L RDW 16.5 H Plt Count Seg Neuts % (Manual) 73.0 H Lymphocytes % (Manual) 4.0 L Monocytes % (Manual) Nucleated RBC % Seg Neutrophils # Man 30.5 H Lymphocytes # (Manual) Monocytes # (Manual) 1.3 H Eosinophils # (Manual) PT 21.3 H INR 1.75 H APTT 39.4 H D-Dimer POC ABG pH POC ABG pCO2 POC ABG pO2 Sodium Potassium Chloride Carbon Dioxide BUN Creatinine Glucose POC Glucose 200 H Lactic Acid Calcium Ionized Calcium Phosphorus Magnesium ALT Alkaline Phosphatase Total Creatine Kinase CK-MB (CK-2) Troponin T C-Reactive Protein Total Protein Albumin Urine WBC (Auto) Urine Creatinine Salicylates Miscellaneous Test Crossmatch 05/22/17 05/22/17 05/22/17 05:46 10:32 11:41 WBC RBC Hgb Hct RDW Plt Count Seg Neuts % (Manual) Lymphocytes % (Manual) Monocytes % (Manual) Nucleated RBC % Seg Neutrophils # Man Lymphocytes # (Manual) Monocytes # (Manual) Eosinophils # (Manual) PT INR APTT D-Dimer POC ABG pH 7.225 L 7.317 L POC ABG pCO2 45.3 H POC ABG pO2 Sodium Potassium Chloride Carbon Dioxide BUN Creatinine Glucose POC Glucose 169 H Lactic Acid Calcium Ionized Calcium Phosphorus Magnesium ALT Alkaline Phosphatase Total Creatine Kinase CK-MB (CK-2) Troponin T C-Reactive Protein Total Protein Albumin Urine WBC (Auto) Urine Creatinine Salicylates Miscellaneous Test Crossmatch 05/22/17 05/22/17 05/22/17 12:45 18:01 22:50 WBC RBC Hgb 7.4 L 8.8 L Hct 23.5 L 27.8 L RDW Plt Count Seg Neuts % (Manual) Lymphocytes % (Manual) Monocytes % (Manual) Nucleated RBC % Seg Neutrophils # Man Lymphocytes # (Manual) Monocytes # (Manual) Eosinophils # (Manual) PT INR APTT D-Dimer POC ABG pH POC ABG pCO2 POC ABG pO2 Sodium Potassium Chloride Carbon Dioxide BUN Creatinine Glucose POC Glucose 148 H Lactic Acid Calcium Ionized Calcium Phosphorus Magnesium ALT Alkaline Phosphatase Total Creatine Kinase CK-MB (CK-2) Troponin T C-Reactive Protein Total Protein Albumin Urine WBC (Auto) Urine Creatinine Salicylates Miscellaneous Test Crossmatch 05/22/17 05/23/17 05/23/17 23:53 05:15 05:15 WBC 40.9 H* RBC 3.06 L Hgb 8.9 L Hct 27.4 L RDW 16.7 H Plt Count Seg Neuts % (Manual) 93.0 H Lymphocytes % (Manual) 3.0 L Monocytes % (Manual) Nucleated RBC % Seg Neutrophils # Man 38.0 H Lymphocytes # (Manual) Monocytes # (Manual) Eosinophils # (Manual) PT INR APTT D-Dimer POC ABG pH POC ABG pCO2 POC ABG pO2 Sodium Potassium Chloride 110.6 H Carbon Dioxide 19 L BUN 18 H Creatinine 1.9 H Glucose 102 H POC Glucose 143 H Lactic Acid Calcium 7.0 L Ionized Calcium Phosphorus Magnesium ALT Alkaline Phosphatase Total Creatine Kinase CK-MB (CK-2) Troponin T C-Reactive Protein Total Protein Albumin Urine WBC (Auto) Urine Creatinine Salicylates Miscellaneous Test Crossmatch 05/23/17 05/23/17 05/23/17 05:23 06:09 08:55 WBC RBC Hgb Hct RDW Plt Count Seg Neuts % (Manual) Lymphocytes % (Manual) Monocytes % (Manual) Nucleated RBC % Seg Neutrophils # Man Lymphocytes # (Manual) Monocytes # (Manual) Eosinophils # (Manual) PT INR APTT D-Dimer POC ABG pH 7.240 L 7.297 L POC ABG pCO2 POC ABG pO2 Sodium Potassium Chloride Carbon Dioxide BUN Creatinine Glucose POC Glucose 124 H Lactic Acid Calcium Ionized Calcium Phosphorus Magnesium ALT Alkaline Phosphatase Total Creatine Kinase CK-MB (CK-2) Troponin T C-Reactive Protein Total Protein Albumin Urine WBC (Auto) Urine Creatinine Salicylates Miscellaneous Test Crossmatch 05/23/17 05/23/17 05/23/17 12:46 16:55 18:33 WBC RBC Hgb Hct RDW Plt Count Seg Neuts % (Manual) Lymphocytes % (Manual) Monocytes % (Manual) Nucleated RBC % Seg Neutrophils # Man Lymphocytes # (Manual) Monocytes # (Manual) Eosinophils # (Manual) PT INR APTT D-Dimer POC ABG pH POC ABG pCO2 POC ABG pO2 Sodium Potassium Chloride Carbon Dioxide BUN Creatinine Glucose POC Glucose 159 H 139 H Lactic Acid Calcium Ionized Calcium Phosphorus Magnesium ALT Alkaline Phosphatase Total Creatine Kinase CK-MB (CK-2) Troponin T C-Reactive Protein 7.10 H Total Protein Albumin Urine WBC (Auto) Urine Creatinine Salicylates Miscellaneous Test Crossmatch 05/23/17 05/24/17 05/24/17 23:25 06:14 07:16 WBC RBC Hgb Hct RDW Plt Count Seg Neuts % (Manual) Lymphocytes % (Manual) Monocytes % (Manual) Nucleated RBC % Seg Neutrophils # Man Lymphocytes # (Manual) Monocytes # (Manual) Eosinophils # (Manual) PT INR APTT D-Dimer POC ABG pH POC ABG pCO2 POC ABG pO2 Sodium Potassium Chloride Carbon Dioxide BUN Creatinine 1.5 H Glucose 130 H POC Glucose 143 H 159 H Lactic Acid Calcium 7.6 L Ionized Calcium Phosphorus Magnesium ALT Alkaline Phosphatase Total Creatine Kinase CK-MB (CK-2) Troponin T C-Reactive Protein Total Protein Albumin Urine WBC (Auto) Urine Creatinine Salicylates Miscellaneous Test Crossmatch 05/24/17 07:16 WBC 36.9 H RBC 2.90 L Hgb 8.5 L Hct 26.2 L RDW 16.8 H Plt Count Seg Neuts % (Manual) 96.5 H Lymphocytes % (Manual) 0 L Monocytes % (Manual) Nucleated RBC % 2.0 H Seg Neutrophils # Man 35.6 H Lymphocytes # (Manual) 0.0 L Monocytes # (Manual) 0.9 H Eosinophils # (Manual) PT INR APTT D-Dimer POC ABG pH POC ABG pCO2 POC ABG pO2 Sodium Potassium Chloride Carbon Dioxide BUN Creatinine Glucose POC Glucose Lactic Acid Calcium Ionized Calcium Phosphorus Magnesium ALT Alkaline Phosphatase Total Creatine Kinase CK-MB (CK-2) Troponin T C-Reactive Protein Total Protein Albumin Urine WBC (Auto) Urine Creatinine Salicylates Miscellaneous Test Crossmatch Chest x-ray: report reviewed, image reviewed
--- NOTE | 2017-05-24 13:11 | Progress Note ---
Assessment and Plan Impression * Acute renal failure. Most likely secondary to ATN * Respiratory failure * Septic shock * Anemia * C. difficile colitis * COPD Recommendations * Status post initiation of hemodialysis on 05/18/2017 * Patient had hemodialysis yesterday. She is clinically still volume overloaded. Her serum creatinine however noted to be much lower. Her electrolytes are also normal. Shall try her on diuretic today . * Status post colectomy 05/21/17 * Avoid Nephrotoxins * Adjust meds for GFR less than 10 * No evidence of renal recovery at this time. Subjective Date of service: 05/24/17 Principal diagnosis: Septic shock,C. diff colitis Interval history: patient remains on the ventilator. Currently on 30% FiO2. She is also on Levophed drip. Opens her eyes. Objective - Vital Signs Vital signs: Vital Signs - 12hr 05/24/17 05/24/17 05/24/17 01:15 01:31 01:45 Temperature Pulse Rate 86 90 78 Pulse Rate [ Anterior Right Upper Lobe] Pulse Rate [ From Monitor] Respiratory 17 19 19 Rate Respiratory Rate [Anterior Right Upper Lobe] Blood Pressure 121/58 121/58 121/58 O2 Sat by Pulse 100 100 100 Oximetry 05/24/17 05/24/17 05/24/17 02:00 02:15 02:31 Temperature Pulse Rate 90 92 H 86 Pulse Rate [ Anterior Right Upper Lobe] Pulse Rate [ From Monitor] Respiratory 18 19 20 Rate Respiratory Rate [Anterior Right Upper Lobe] Blood Pressure 105/58 105/58 105/58 O2 Sat by Pulse 100 100 100 Oximetry 05/24/17 05/24/17 05/24/17 02:45 03:01 03:14 Temperature Pulse Rate 83 85 84 Pulse Rate [ Anterior Right Upper Lobe] Pulse Rate [ From Monitor] Respiratory 18 18 Rate Respiratory Rate [Anterior Right Upper Lobe] Blood Pressure 105/58 105/58 105/58 O2 Sat by Pulse 100 100 Oximetry 05/24/17 05/24/17 05/24/17 03:15 03:31 03:45 Temperature Pulse Rate 82 83 88 Pulse Rate [ Anterior Right Upper Lobe] Pulse Rate [ From Monitor] Respiratory 19 20 21 Rate Respiratory Rate [Anterior Right Upper Lobe] Blood Pressure 105/58 105/58 105/58 O2 Sat by Pulse 100 100 100 Oximetry 05/24/17 05/24/17 05/24/17 04:00 04:15 04:31 Temperature 96.3 F L Pulse Rate 77 77 85 Pulse Rate [ Anterior Right Upper Lobe] Pulse Rate [ 92 H From Monitor] Respiratory 20 20 18 Rate Respiratory Rate [Anterior Right Upper Lobe] Blood Pressure 96/51 96/51 96/51 O2 Sat by Pulse 100 100 100 Oximetry 05/24/17 05/24/17 05/24/17 04:45 05:01 05:15 Temperature Pulse Rate 90 85 92 H Pulse Rate [ Anterior Right Upper Lobe] Pulse Rate [ From Monitor] Respiratory 19 19 20 Rate Respiratory Rate [Anterior Right Upper Lobe] Blood Pressure 96/51 96/51 96/51 O2 Sat by Pulse 100 100 100 Oximetry 05/24/17 05/24/17 05/24/17 05:31 05:45 06:00 Temperature Pulse Rate 95 H Pulse Rate [ Anterior Right Upper Lobe] Pulse Rate [ From Monitor] Respiratory 18 Rate Respiratory Rate [Anterior Right Upper Lobe] Blood Pressure 96/51 96/51 89/51 O2 Sat by Pulse 100 100 100 Oximetry 05/24/17 05/24/17 05/24/17 06:15 06:31 06:45 Temperature Pulse Rate 90 88 85 Pulse Rate [ Anterior Right Upper Lobe] Pulse Rate [ From Monitor] Respiratory 18 20 21 Rate Respiratory Rate [Anterior Right Upper Lobe] Blood Pressure 89/51 89/51 89/51 O2 Sat by Pulse 100 100 100 Oximetry 05/24/17 05/24/17 05/24/17 07:01 07:15 07:31 Temperature Pulse Rate 85 83 86 Pulse Rate [ Anterior Right Upper Lobe] Pulse Rate [ From Monitor] Respiratory 22 18 19 Rate Respiratory Rate [Anterior Right Upper Lobe] Blood Pressure 89/51 89/51 89/51 O2 Sat by Pulse 100 100 100 Oximetry 05/24/17 05/24/17 05/24/17 07:45 07:59 08:00 Temperature 98.5 F Pulse Rate 80 78 Pulse Rate [ 98 H Anterior Right Upper Lobe] Pulse Rate [ 87 From Monitor] Respiratory 18 19 Rate Respiratory 18 Rate [Anterior Right Upper Lobe] Blood Pressure 89/51 110/56 O2 Sat by Pulse 100 100 Oximetry 05/24/17 05/24/17 05/24/17 08:09 08:13 08:15 Temperature Pulse Rate 81 91 H Pulse Rate [ 90 Anterior Right Upper Lobe] Pulse Rate [ From Monitor] Respiratory 21 Rate Respiratory 18 Rate [Anterior Right Upper Lobe] Blood Pressure 110/56 110/56 O2 Sat by Pulse 100 100 Oximetry 05/24/17 05/24/17 05/24/17 08:31 08:45 09:01 Temperature Pulse Rate 84 82 84 Pulse Rate [ Anterior Right Upper Lobe] Pulse Rate [ From Monitor] Respiratory 19 19 18 Rate Respiratory Rate [Anterior Right Upper Lobe] Blood Pressure 89/51 89/51 89/51 O2 Sat by Pulse 100 100 100 Oximetry 05/24/17 05/24/17 05/24/17 09:15 09:31 09:45 Temperature Pulse Rate 79 82 82 Pulse Rate [ Anterior Right Upper Lobe] Pulse Rate [ From Monitor] Respiratory 18 19 17 Rate Respiratory Rate [Anterior Right Upper Lobe] Blood Pressure 89/51 89/51 89/51 O2 Sat by Pulse 100 100 100 Oximetry 05/24/17 05/24/17 05/24/17 10:00 10:15 10:31 Temperature Pulse Rate 90 80 89 Pulse Rate [ Anterior Right Upper Lobe] Pulse Rate [ From Monitor] Respiratory 18 18 19 Rate Respiratory Rate [Anterior Right Upper Lobe] Blood Pressure 107/56 107/56 110/56 O2 Sat by Pulse 99 100 100 Oximetry 05/24/17 05/24/17 05/24/17 10:45 11:01 11:15 Temperature Pulse Rate 86 84 94 H Pulse Rate [ Anterior Right Upper Lobe] Pulse Rate [ From Monitor] Respiratory 18 18 17 Rate Respiratory Rate [Anterior Right Upper Lobe] Blood Pressure 110/56 110/56 110/56 O2 Sat by Pulse 100 100 100 Oximetry 05/24/17 05/24/17 05/24/17 11:31 11:45 12:00 Temperature 97.5 F L Pulse Rate 88 82 81 Pulse Rate [ Anterior Right Upper Lobe] Pulse Rate [ From Monitor] Respiratory 18 18 19 Rate Respiratory Rate [Anterior Right Upper Lobe] Blood Pressure 110/56 110/56 107/54 O2 Sat by Pulse 100 100 100 Oximetry 05/24/17 05/24/17 12:15 12:44 Temperature Pulse Rate 91 H 102 H Pulse Rate [ Anterior Right Upper Lobe] Pulse Rate [ From Monitor] Respiratory 19 Rate Respiratory Rate [Anterior Right Upper Lobe] Blood Pressure 107/54 107/54 O2 Sat by Pulse 98 100 Oximetry - General Appearance General appearance: well-developed, well-nourished, appears stated age, intubated EENT: PERRL, mucous membranes moist Neck: no JVD, no thyromegaly, no carotid bruit, supple Respiratory: Present: Clear to Ascultation Cardiology: regular, normal heart rate, S1S2, no murmurs Gastrointestinal: normoactive bowel sounds, other (midline dressing noted. Colostomy bag in place) Integumentary: other (2+ edema. Right femoral Vas-Cath in place) - Lab 05/24/17 07:16 05/24/17 07:16 Most recent lab results Calcium 7.6 mg/dL (8.4-10.2) L 05/24/17 07:16 Phosphorus 2.70 mg/dL (2.5-4.5) 05/24/17 07:16 Magnesium 1.70 mg/dL (1.7-2.3) 05/24/17 07:16 Urine Creatinine 28.0 mg/dL (0.1-20.0) H 05/05/17 Unknown Urine Sodium 129 mmol/L 05/05/17 Unknown
--- NOTE | 2017-05-24 13:30 | Progress Note ---
Assessment and Plan Assessment: 1) Persistent Septic Shock - better still on pressors minimal amount and leukocytosis better- leukocytosias likely from recent splenectomy; etiology - severe C diff colitis. CRP=14 -->2.3. Procal=2.4. 2) Severe C diff Colitis: severe-recently exposed to broad spectrum abx. CT abd showed colitis. 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 reactive from colitis versus real 4) LUIS-worsening - now on HD 6) COPD 7) Resp failure Plan: -f/u repeat blood cx, PCT, sputum -continue meropenem to cover empirically peritonitis and IV flagyl for now since she had subtotal colectomy -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: Prevnar single dose and 8 weeks later Pneumovax Haemophilus influenza vaccine - one dose Menactra - (meningococcal vaccine) - one dose -close monitoring I am covering the weekend Thank you Dr Mejia for your consultation, will follow up with you. Winifred Guerrero MD Infectious Diseases Specialist [facility] ([facility] M [phone] O [phone] Subjective Date of service: 05/24/17 Principal diagnosis: Septic shock,C. diff colitis Interval history: Remains critically ill on levophed at 14 mcg/min, sedated, intubated Microbiology: Blood cultures: 05/05 neg 05/23 ngtd Urine cultures: 05/05 neg 05/19 billy Stool cultures: C diff 05/04 POSITIVE Resp culture: 05/16 neg Current Antimicrobials: Metronidazole 05/05 meropenem 05/17 Previous Antimicrobials: Zosyn Levaquin Vancomycin PO Metronidazole Vanco rectal 05/07 Ceftriaxone 05/11 Objective - Exam Narrative Exam: General appearance: alert on the vent Eyes: anicteric sclerae HENT: Atraumatic; oropharynx +ETT Neck: Trachea midline; supple, no thyromegaly or lymphadenopathy Lungs: scattered rhonchi CV: rrr Abdomen: Soft, +surgical wound Ileostomy bag and JAVAN drain with small amount of pinkish drainage. Extremities: + peripheral edema Skin: Normal temperature, turgor and texture; no rash, ulcers or subcutaneous nodules Psych: Anxious. Neuro: alert and oriented x 3. Moving all extermities Lines: right SC TLC - Constitutional Vitals: Vital Signs Temp Pulse Resp BP Pulse Ox 97.5 F L 102 H 19 107/54 100 05/24/17 12:00 05/24/17 12:44 05/24/17 12:15 05/24/17 12:44 05/24/17 12:44 Temperature -Last 24 Hours Temperature 97.5 F Temperature 98.5 F Temperature 96.3 F Temperature 96.0 F Temperature 94.1 F Temperature 96.3 F Temperature 96.6 F - Labs CBC & Chem 7: 05/24/17 07:16 05/24/17 07:16 Labs: Abnormal lab results 05/23/17 05/23/17 05/23/17 Range/Units 12:46 16:55 18:33 WBC (4.5-11.0) K/mm3 RBC (3.65-5.03) M/mm3 Hgb (10.1-14.3) gm/dl Hct (30.3-42.9) % RDW (13.2-15.2) % Seg Neuts % (Manual) (40.0-70.0) % Lymphocytes % (Manual) (13.4-35.0) % Nucleated RBC % (0.0-0.9) % Seg Neutrophils # Man (1.8-7.7) K/mm3 Lymphocytes # (Manual) (1.2-5.4) K/mm3 Monocytes # (Manual) (0.0-0.8) K/mm3 Creatinine (0.7-1.2) mg/dL Glucose (65-100) mg/dL POC Glucose 159 H 139 H (70-105) Calcium (8.4-10.2) mg/dL C-Reactive Protein 7.10 H (0.00-1.30) mg/dL 05/23/17 05/24/17 05/24/17 Range/Units 23:25 06:14 07:16 WBC (4.5-11.0) K/mm3 RBC (3.65-5.03) M/mm3 Hgb (10.1-14.3) gm/dl Hct (30.3-42.9) % RDW (13.2-15.2) % Seg Neuts % (Manual) (40.0-70.0) % Lymphocytes % (Manual) (13.4-35.0) % Nucleated RBC % (0.0-0.9) % Seg Neutrophils # Man (1.8-7.7) K/mm3 Lymphocytes # (Manual) (1.2-5.4) K/mm3 Monocytes # (Manual) (0.0-0.8) K/mm3 Creatinine 1.5 H (0.7-1.2) mg/dL Glucose 130 H (65-100) mg/dL POC Glucose 143 H 159 H (70-105) Calcium 7.6 L (8.4-10.2) mg/dL C-Reactive Protein (0.00-1.30) mg/dL 05/24/17 05/24/17 Range/Units 07:16 11:42 WBC 36.9 H (4.5-11.0) K/mm3 RBC 2.90 L (3.65-5.03) M/mm3 Hgb 8.5 L (10.1-14.3) gm/dl Hct 26.2 L (30.3-42.9) % RDW 16.8 H (13.2-15.2) % Seg Neuts % (Manual) 96.5 H (40.0-70.0) % Lymphocytes % (Manual) 0 L (13.4-35.0) % Nucleated RBC % 2.0 H (0.0-0.9) % Seg Neutrophils # Man 35.6 H (1.8-7.7) K/mm3 Lymphocytes # (Manual) 0.0 L (1.2-5.4) K/mm3 Monocytes # (Manual) 0.9 H (0.0-0.8) K/mm3 Creatinine (0.7-1.2) mg/dL Glucose (65-100) mg/dL POC Glucose 168 H (70-105) Calcium (8.4-10.2) mg/dL C-Reactive Protein (0.00-1.30) mg/dL
[2017-05-24] MEDS ORDERED: LASIX IV ONE ×2 (14:00→18:00)
[2017-05-24] MEDS: D50W (25GM) Vial IV PRN (17:46)
[2017-05-24] MEDS ORDERED: TPN ADULT 1,560 ML IV SCH (20:00)
[2017-05-25] MEDS: NOVOLOG SUB-Q SCH ×3 (03:40→17:45)
[2017-05-25] MEDS: MORPHINE IV PRN ×2 (03:46→14:51)
[2017-05-25] MEDS: FLAGYL 500 MG/100 ML 500 MG/100 ML BAG IV SCH ×5 (06:18→23:39)
[2017-05-25 07:27] LABS: Hematocrit 25.4 % (30.3-42.9); Hemoglobin 8.2 gm/dl (10.1-14.3); Mean Corpuscular HGB Conc 32 % (30-34); Mean Corpuscular Hemoglobin 29 pg (28-32); Mean Corpuscular Volume 91 fl (79-97); Platelet Count 151 K/mm3 (140-440); Red Blood Count 2.81 M/mm3 (3.65-5.03); Red Cell Distribution Width 16.3 % (13.2-15.2)
[2017-05-25 07:32] LABS: White Blood Count 31.7 K/mm3 (4.5-11.0)
[2017-05-25 07:52] LABS: Chloride 105.8 mmol/L (98-107); Magnesium 1.7 mg/dL (1.7-2.3); Potassium 3.8 mmol/L (3.6-5.0)
[2017-05-25] MEDS: BROVANA NEBU IH SCH ×2 (08:34→19:36)
[2017-05-25] MEDS: PULMICORT IH SCH ×2 (08:34→19:36)
[2017-05-25] MEDS: DUONEB *Not for PRN Use IH SCH ×3 (08:39→19:36)
[2017-05-25 08:51] LABS: Basophils % (Manual) 0 % (0.0-1.8); Blastocytes % (Manual) 0 %; Eosinophils % (Manual) 0 % (0.0-4.3); Nucleated Red Blood Cells 3.5 % (0.0-0.9); Total Cells Counted Percent 0.5
[2017-05-25 08:52] LABS: Anisocytosis 1+; Burr Cells Rare; Diff Status Complete; Macrocytosis 2+; Ovalocytes 1+; Platelet Estimate Consistent w Auto; Poikilocytosis Rare; Polychromasia 1+
[2017-05-25] MEDS: FLORANEX PO SCH ×3 (09:08→23:38)
[2017-05-25] MEDS: PEPCID IV SCH (11:00)
--- NOTE | 2017-05-25 11:26 | Progress Note ---
Assessment and Plan POD # 4 Pt awake, alert. on CPAP Abd soft. dressings dry. ostomy functioning well BP systolic holding at 100. Levophed down to 3 surgically stable continue present care Selected Entries 05/25/17 11:08 Pulse Rate 84 Blood Pressure 99/50 Laboratory Tests 05/25/17 05/25/17 07:08 07:08 WBC 31.7 H Hgb 8.2 L Hct 25.4 L Sodium 142 Potassium 3.8 Chloride 105.8 Carbon Dioxide 26 Anion Gap 14 BUN 24 H Creatinine 1.5 H Objective Vital Signs - 12hr 05/24/17 05/24/17 05/25/17 23:31 23:45 00:00 Temperature 97.9 F Pulse Rate 86 84 Pulse Rate [ Anterior Bilateral Throughout] Pulse Rate [ 89 From Monitor] Respiratory 18 19 18 Rate Respiratory Rate [Anterior Bilateral Throughout] Blood Pressure 107/55 107/55 O2 Sat by Pulse 100 100 100 Oximetry 05/25/17 05/25/17 05/25/17 00:01 00:15 00:31 Temperature Pulse Rate 82 88 90 Pulse Rate [ Anterior Bilateral Throughout] Pulse Rate [ From Monitor] Respiratory 19 23 24 Rate Respiratory Rate [Anterior Bilateral Throughout] Blood Pressure 102/45 102/45 102/45 O2 Sat by Pulse 100 100 100 Oximetry 05/25/17 05/25/17 05/25/17 00:45 01:01 01:15 Temperature Pulse Rate 102 H 91 H 87 Pulse Rate [ Anterior Bilateral Throughout] Pulse Rate [ From Monitor] Respiratory 25 H 25 H 22 Rate Respiratory Rate [Anterior Bilateral Throughout] Blood Pressure 102/45 102/45 102/45 O2 Sat by Pulse 100 100 97 Oximetry 05/25/17 05/25/17 05/25/17 01:31 01:45 02:00 Temperature Pulse Rate 103 H 99 H 106 H Pulse Rate [ Anterior Bilateral Throughout] Pulse Rate [ From Monitor] Respiratory 25 H 25 H 20 Rate Respiratory Rate [Anterior Bilateral Throughout] Blood Pressure 102/45 102/45 108/57 O2 Sat by Pulse 100 100 100 Oximetry 05/25/17 05/25/17 05/25/17 02:15 02:31 02:45 Temperature Pulse Rate 99 H 96 H 96 H Pulse Rate [ Anterior Bilateral Throughout] Pulse Rate [ From Monitor] Respiratory 16 23 24 Rate Respiratory Rate [Anterior Bilateral Throughout] Blood Pressure 108/57 108/57 108/57 O2 Sat by Pulse 100 100 100 Oximetry 05/25/17 05/25/17 05/25/17 03:01 03:15 03:20 Temperature Pulse Rate 93 H 92 H Pulse Rate [ Anterior Bilateral Throughout] Pulse Rate [ From Monitor] Respiratory 21 Rate Respiratory Rate [Anterior Bilateral Throughout] Blood Pressure 108/57 108/57 125/55 O2 Sat by Pulse 98 100 100 Oximetry 05/25/17 05/25/17 05/25/17 03:31 03:45 04:00 Temperature 98.0 F Pulse Rate 90 79 100 H Pulse Rate [ Anterior Bilateral Throughout] Pulse Rate [ 81 From Monitor] Respiratory 23 21 18 Rate Respiratory Rate [Anterior Bilateral Throughout] Blood Pressure 108/57 108/57 104/56 O2 Sat by Pulse 99 100 100 Oximetry 05/25/17 05/25/17 05/25/17 04:15 04:31 04:45 Temperature Pulse Rate 79 86 99 H Pulse Rate [ Anterior Bilateral Throughout] Pulse Rate [ From Monitor] Respiratory 19 22 22 Rate Respiratory Rate [Anterior Bilateral Throughout] Blood Pressure 104/56 104/56 104/56 O2 Sat by Pulse 100 100 100 Oximetry 05/25/17 05/25/17 05/25/17 05:01 05:15 05:31 Temperature Pulse Rate 77 91 H 81 Pulse Rate [ Anterior Bilateral Throughout] Pulse Rate [ From Monitor] Respiratory 20 21 20 Rate Respiratory Rate [Anterior Bilateral Throughout] Blood Pressure 104/56 104/56 104/56 O2 Sat by Pulse 100 100 100 Oximetry 05/25/17 05/25/17 05/25/17 05:45 06:01 06:15 Temperature Pulse Rate 76 76 77 Pulse Rate [ Anterior Bilateral Throughout] Pulse Rate [ From Monitor] Respiratory 18 20 20 Rate Respiratory Rate [Anterior Bilateral Throughout] Blood Pressure 104/56 119/53 119/53 O2 Sat by Pulse 99 100 100 Oximetry 05/25/17 05/25/17 05/25/17 06:31 06:45 07:01 Temperature Pulse Rate 75 73 75 Pulse Rate [ Anterior Bilateral Throughout] Pulse Rate [ From Monitor] Respiratory 20 19 20 Rate Respiratory Rate [Anterior Bilateral Throughout] Blood Pressure 119/53 119/53 119/53 O2 Sat by Pulse 100 100 100 Oximetry 05/25/17 05/25/17 05/25/17 07:15 07:31 07:45 Temperature Pulse Rate 94 H 127 H 73 Pulse Rate [ Anterior Bilateral Throughout] Pulse Rate [ From Monitor] Respiratory 20 22 19 Rate Respiratory Rate [Anterior Bilateral Throughout] Blood Pressure 119/53 119/53 119/53 O2 Sat by Pulse 100 100 100 Oximetry 05/25/17 05/25/17 05/25/17 08:00 08:15 08:30 Temperature 97.8 F Pulse Rate 94 H 80 76 Pulse Rate [ 74 Anterior Bilateral Throughout] Pulse Rate [ 83 From Monitor] Respiratory 21 19 Rate Respiratory 19 Rate [Anterior Bilateral Throughout] Blood Pressure 114/55 114/55 114/55 O2 Sat by Pulse 100 100 100 Oximetry 05/25/17 05/25/17 05/25/17 08:31 08:45 09:01 Temperature Pulse Rate 74 70 77 Pulse Rate [ 77 Anterior Bilateral Throughout] Pulse Rate [ From Monitor] Respiratory 19 20 25 H Rate Respiratory 20 Rate [Anterior Bilateral Throughout] Blood Pressure 114/55 114/55 114/55 O2 Sat by Pulse 100 100 Oximetry 05/25/17 11:08 Temperature Pulse Rate 84 Pulse Rate [ Anterior Bilateral Throughout] Pulse Rate [ From Monitor] Respiratory 26 H Rate Respiratory Rate [Anterior Bilateral Throughout] Blood Pressure 99/50 O2 Sat by Pulse 100 Oximetry - Labs 05/25/17 07:08 05/25/17 07:08 Diabetes panel 05/25/17 Range/Units 07:08 Sodium 142 (137-145) mmol/L Potassium 3.8 (3.6-5.0) mmol/L Chloride 105.8 (98-107) mmol/L Carbon Dioxide 26 (22-30) mmol/L BUN 24 H (7-17) mg/dL Creatinine 1.5 H (0.7-1.2) mg/dL Glucose 126 H (65-100) mg/dL Calcium 8.0 L (8.4-10.2) mg/dL Calcium panel 05/25/17 Range/Units 07:08 Calcium 8.0 L (8.4-10.2) mg/dL Phosphorus 3.00 (2.5-4.5) mg/dL Pituitary panel 05/25/17 Range/Units 07:08 Sodium 142 (137-145) mmol/L Potassium 3.8 (3.6-5.0) mmol/L Chloride 105.8 (98-107) mmol/L Carbon Dioxide 26 (22-30) mmol/L BUN 24 H (7-17) mg/dL Creatinine 1.5 H (0.7-1.2) mg/dL Glucose 126 H (65-100) mg/dL Calcium 8.0 L (8.4-10.2) mg/dL Adrenal panel 05/25/17 Range/Units 07:08 Sodium 142 (137-145) mmol/L Potassium 3.8 (3.6-5.0) mmol/L Chloride 105.8 (98-107) mmol/L Carbon Dioxide 26 (22-30) mmol/L BUN 24 H (7-17) mg/dL Creatinine 1.5 H (0.7-1.2) mg/dL Glucose 126 H (65-100) mg/dL Calcium 8.0 L (8.4-10.2) mg/dL
[2017-05-25] MEDS: MERREM 1,000 MG in NACL 0.9% 20 ML IV SCH (11:27)
[2017-05-25] MEDS: LEVOPHED 8 MG in NACL 0.9% 250ML 242 ML IV SCH (11:28)
--- NOTE | 2017-05-25 12:01 | Progress Note ---
Assessment and Plan Impression * Acute renal failure. Most likely secondary to ATN * Respiratory failure * Septic shock * Anemia * C. difficile colitis * COPD Recommendations * Status post initiation of hemodialysis on 05/18/2017 * Her serum creatinine noted to have improved. She is responding well to diuretics. She put out more than 1100 mL of urine after 80 mg of Lasix IV push . Shall add IV albumin with Lasix. * Last hemodialysis was on 05/23/2017. Shall hold her dialysis for now . * Status post colectomy 05/21/17 * Avoid Nephrotoxins * Adjust meds for GFR less than 10 * Her renal function seems to be recovering at this time Subjective Date of service: 05/25/17 Principal diagnosis: Septic shock,C. diff colitis Interval history: Patient remains on the ventilator. Currently on 30% FiO2. She is still on Levophed drip . Currently at 3 g Objective - Vital Signs Vital signs: Vital Signs - 12hr 05/25/17 05/25/17 05/25/17 00:00 00:01 00:15 Temperature 97.9 F Pulse Rate 82 88 Pulse Rate [ Anterior Bilateral Throughout] Pulse Rate [ 89 From Monitor] Respiratory 18 19 23 Rate Respiratory Rate [Anterior Bilateral Throughout] Blood Pressure 102/45 102/45 O2 Sat by Pulse 100 100 100 Oximetry 05/25/17 05/25/17 05/25/17 00:31 00:45 01:01 Temperature Pulse Rate 90 102 H 91 H Pulse Rate [ Anterior Bilateral Throughout] Pulse Rate [ From Monitor] Respiratory 24 25 H 25 H Rate Respiratory Rate [Anterior Bilateral Throughout] Blood Pressure 102/45 102/45 102/45 O2 Sat by Pulse 100 100 100 Oximetry 05/25/17 05/25/17 05/25/17 01:15 01:31 01:45 Temperature Pulse Rate 87 103 H 99 H Pulse Rate [ Anterior Bilateral Throughout] Pulse Rate [ From Monitor] Respiratory 22 25 H 25 H Rate Respiratory Rate [Anterior Bilateral Throughout] Blood Pressure 102/45 102/45 102/45 O2 Sat by Pulse 97 100 100 Oximetry 05/25/17 05/25/17 05/25/17 02:00 02:15 02:31 Temperature Pulse Rate 106 H 99 H 96 H Pulse Rate [ Anterior Bilateral Throughout] Pulse Rate [ From Monitor] Respiratory 20 16 23 Rate Respiratory Rate [Anterior Bilateral Throughout] Blood Pressure 108/57 108/57 108/57 O2 Sat by Pulse 100 100 100 Oximetry 05/25/17 05/25/17 05/25/17 02:45 03:01 03:15 Temperature Pulse Rate 96 H 93 H Pulse Rate [ Anterior Bilateral Throughout] Pulse Rate [ From Monitor] Respiratory 24 21 Rate Respiratory Rate [Anterior Bilateral Throughout] Blood Pressure 108/57 108/57 108/57 O2 Sat by Pulse 100 98 100 Oximetry 05/25/17 05/25/17 05/25/17 03:20 03:31 03:45 Temperature Pulse Rate 92 H 90 79 Pulse Rate [ Anterior Bilateral Throughout] Pulse Rate [ From Monitor] Respiratory 23 21 Rate Respiratory Rate [Anterior Bilateral Throughout] Blood Pressure 125/55 108/57 108/57 O2 Sat by Pulse 100 99 100 Oximetry 05/25/17 05/25/17 05/25/17 04:00 04:15 04:31 Temperature 98.0 F Pulse Rate 100 H 79 86 Pulse Rate [ Anterior Bilateral Throughout] Pulse Rate [ 81 From Monitor] Respiratory 18 19 22 Rate Respiratory Rate [Anterior Bilateral Throughout] Blood Pressure 104/56 104/56 104/56 O2 Sat by Pulse 100 100 100 Oximetry 05/25/17 05/25/17 05/25/17 04:45 05:01 05:15 Temperature Pulse Rate 99 H 77 91 H Pulse Rate [ Anterior Bilateral Throughout] Pulse Rate [ From Monitor] Respiratory 22 20 21 Rate Respiratory Rate [Anterior Bilateral Throughout] Blood Pressure 104/56 104/56 104/56 O2 Sat by Pulse 100 100 100 Oximetry 05/25/17 05/25/17 05/25/17 05:31 05:45 06:01 Temperature Pulse Rate 81 76 76 Pulse Rate [ Anterior Bilateral Throughout] Pulse Rate [ From Monitor] Respiratory 20 18 20 Rate Respiratory Rate [Anterior Bilateral Throughout] Blood Pressure 104/56 104/56 119/53 O2 Sat by Pulse 100 99 100 Oximetry 05/25/17 05/25/17 05/25/17 06:15 06:31 06:45 Temperature Pulse Rate 77 75 73 Pulse Rate [ Anterior Bilateral Throughout] Pulse Rate [ From Monitor] Respiratory 20 20 19 Rate Respiratory Rate [Anterior Bilateral Throughout] Blood Pressure 119/53 119/53 119/53 O2 Sat by Pulse 100 100 100 Oximetry 05/25/17 05/25/17 05/25/17 07:01 07:15 07:31 Temperature Pulse Rate 75 94 H 127 H Pulse Rate [ Anterior Bilateral Throughout] Pulse Rate [ From Monitor] Respiratory 20 20 22 Rate Respiratory Rate [Anterior Bilateral Throughout] Blood Pressure 119/53 119/53 119/53 O2 Sat by Pulse 100 100 100 Oximetry 05/25/17 05/25/17 05/25/17 07:45 08:00 08:15 Temperature 97.8 F Pulse Rate 73 94 H 80 Pulse Rate [ Anterior Bilateral Throughout] Pulse Rate [ 83 From Monitor] Respiratory 19 21 19 Rate Respiratory Rate [Anterior Bilateral Throughout] Blood Pressure 119/53 114/55 114/55 O2 Sat by Pulse 100 100 100 Oximetry 05/25/17 05/25/17 05/25/17 08:30 08:31 08:45 Temperature Pulse Rate 76 74 70 Pulse Rate [ 74 77 Anterior Bilateral Throughout] Pulse Rate [ From Monitor] Respiratory 19 20 Rate Respiratory 19 20 Rate [Anterior Bilateral Throughout] Blood Pressure 114/55 114/55 114/55 O2 Sat by Pulse 100 100 100 Oximetry 05/25/17 05/25/17 09:01 11:08 Temperature Pulse Rate 77 84 Pulse Rate [ Anterior Bilateral Throughout] Pulse Rate [ From Monitor] Respiratory 25 H 26 H Rate Respiratory Rate [Anterior Bilateral Throughout] Blood Pressure 114/55 99/50 O2 Sat by Pulse 100 Oximetry - General Appearance General appearance: well-developed, well-nourished, appears stated age, intubated EENT: PERRL, mucous membranes moist Neck: no JVD, no thyromegaly, no carotid bruit, supple Respiratory: Present: Clear to Ascultation Cardiology: regular, normal heart rate, S1S2, no murmurs Gastrointestinal: hypoactive bowel sounds, other (midline dressing noted. Colostomy bag in place) Integumentary: other (2+ edema. Right femoral Vas-Cath in place) - Lab 05/25/17 07:08 05/25/17 07:08 Most recent lab results Calcium 8.0 mg/dL (8.4-10.2) L 05/25/17 07:08 Phosphorus 3.00 mg/dL (2.5-4.5) 05/25/17 07:08 Magnesium 1.70 mg/dL (1.7-2.3) 05/25/17 07:08 Urine Creatinine 28.0 mg/dL (0.1-20.0) H 05/05/17 Unknown Urine Sodium 129 mmol/L 05/05/17 Unknown
--- NOTE | 2017-05-25 13:27 | Progress Note ---
Assessment and Plan - Patient Problems (1) S/P laparotomy Current Visit: Yes Status: Acute (2) Acute respiratory failure Current Visit: Yes Status: Acute (3) Diarrhea Current Visit: Yes Status: Acute (4) Acute exacerbation of chronic obstructive pulmonary disease (COPD) Current Visit: No Status: Acute (5) Acute hypercapnic respiratory failure Current Visit: No Status: Acute (6) Leukocytosis Current Visit: No Status: Acute Qualifiers: Leukocytosis type: unspecified Qualified Code(s): D72.829 - Elevated white blood cell count, unspecified (7) Sepsis Current Visit: No Status: Acute Subjective Principal diagnosis: Septic shock,C. diff colitis Interval history: on vent Objective Vital Signs - 12hr 05/25/17 05/25/17 05/25/17 01:31 01:45 02:00 Temperature Pulse Rate 103 H 99 H 106 H Pulse Rate [ Anterior Bilateral Throughout] Pulse Rate [ From Monitor] Respiratory 25 H 25 H 20 Rate Respiratory Rate [Anterior Bilateral Throughout] Blood Pressure 102/45 102/45 108/57 O2 Sat by Pulse 100 100 100 Oximetry 05/25/17 05/25/17 05/25/17 02:15 02:31 02:45 Temperature Pulse Rate 99 H 96 H 96 H Pulse Rate [ Anterior Bilateral Throughout] Pulse Rate [ From Monitor] Respiratory 16 23 24 Rate Respiratory Rate [Anterior Bilateral Throughout] Blood Pressure 108/57 108/57 108/57 O2 Sat by Pulse 100 100 100 Oximetry 05/25/17 05/25/17 05/25/17 03:01 03:15 03:20 Temperature Pulse Rate 93 H 92 H Pulse Rate [ Anterior Bilateral Throughout] Pulse Rate [ From Monitor] Respiratory 21 Rate Respiratory Rate [Anterior Bilateral Throughout] Blood Pressure 108/57 108/57 125/55 O2 Sat by Pulse 98 100 100 Oximetry 05/25/17 05/25/17 05/25/17 03:31 03:45 04:00 Temperature 98.0 F Pulse Rate 90 79 100 H Pulse Rate [ Anterior Bilateral Throughout] Pulse Rate [ 81 From Monitor] Respiratory 23 21 18 Rate Respiratory Rate [Anterior Bilateral Throughout] Blood Pressure 108/57 108/57 104/56 O2 Sat by Pulse 99 100 100 Oximetry 05/25/17 05/25/17 05/25/17 04:15 04:31 04:45 Temperature Pulse Rate 79 86 99 H Pulse Rate [ Anterior Bilateral Throughout] Pulse Rate [ From Monitor] Respiratory 19 22 22 Rate Respiratory Rate [Anterior Bilateral Throughout] Blood Pressure 104/56 104/56 104/56 O2 Sat by Pulse 100 100 100 Oximetry 05/25/17 05/25/17 05/25/17 05:01 05:15 05:31 Temperature Pulse Rate 77 91 H 81 Pulse Rate [ Anterior Bilateral Throughout] Pulse Rate [ From Monitor] Respiratory 20 21 20 Rate Respiratory Rate [Anterior Bilateral Throughout] Blood Pressure 104/56 104/56 104/56 O2 Sat by Pulse 100 100 100 Oximetry 05/25/17 05/25/17 05/25/17 05:45 06:01 06:15 Temperature Pulse Rate 76 76 77 Pulse Rate [ Anterior Bilateral Throughout] Pulse Rate [ From Monitor] Respiratory 18 20 20 Rate Respiratory Rate [Anterior Bilateral Throughout] Blood Pressure 104/56 119/53 119/53 O2 Sat by Pulse 99 100 100 Oximetry 05/25/17 05/25/17 05/25/17 06:31 06:45 07:01 Temperature Pulse Rate 75 73 75 Pulse Rate [ Anterior Bilateral Throughout] Pulse Rate [ From Monitor] Respiratory 20 19 20 Rate Respiratory Rate [Anterior Bilateral Throughout] Blood Pressure 119/53 119/53 119/53 O2 Sat by Pulse 100 100 100 Oximetry 05/25/17 05/25/17 05/25/17 07:15 07:31 07:45 Temperature Pulse Rate 94 H 127 H 73 Pulse Rate [ Anterior Bilateral Throughout] Pulse Rate [ From Monitor] Respiratory 20 22 19 Rate Respiratory Rate [Anterior Bilateral Throughout] Blood Pressure 119/53 119/53 119/53 O2 Sat by Pulse 100 100 100 Oximetry 05/25/17 05/25/17 05/25/17 08:00 08:15 08:30 Temperature 97.8 F Pulse Rate 94 H 80 76 Pulse Rate [ 74 Anterior Bilateral Throughout] Pulse Rate [ 83 From Monitor] Respiratory 21 19 Rate Respiratory 19 Rate [Anterior Bilateral Throughout] Blood Pressure 114/55 114/55 114/55 O2 Sat by Pulse 100 100 100 Oximetry 05/25/17 05/25/17 05/25/17 08:31 08:45 09:01 Temperature Pulse Rate 74 70 77 Pulse Rate [ 77 Anterior Bilateral Throughout] Pulse Rate [ From Monitor] Respiratory 19 20 25 H Rate Respiratory 20 Rate [Anterior Bilateral Throughout] Blood Pressure 114/55 114/55 114/55 O2 Sat by Pulse 100 100 Oximetry 05/25/17 05/25/17 05/25/17 09:15 09:30 09:45 Temperature Pulse Rate 82 85 90 Pulse Rate [ Anterior Bilateral Throughout] Pulse Rate [ From Monitor] Respiratory 23 20 23 Rate Respiratory Rate [Anterior Bilateral Throughout] Blood Pressure 109/49 119/53 114/59 O2 Sat by Pulse 100 100 100 Oximetry 05/25/17 05/25/17 05/25/17 10:00 10:01 10:15 Temperature Pulse Rate 82 85 88 Pulse Rate [ Anterior Bilateral Throughout] Pulse Rate [ From Monitor] Respiratory 25 H 22 Rate Respiratory Rate [Anterior Bilateral Throughout] Blood Pressure 109/59 107/62 O2 Sat by Pulse 100 100 Oximetry 05/25/17 05/25/17 05/25/17 10:30 10:45 11:01 Temperature Pulse Rate 85 83 82 Pulse Rate [ Anterior Bilateral Throughout] Pulse Rate [ From Monitor] Respiratory 24 24 25 H Rate Respiratory Rate [Anterior Bilateral Throughout] Blood Pressure 102/61 100/54 99/50 O2 Sat by Pulse 100 100 100 Oximetry 05/25/17 05/25/17 05/25/17 11:08 11:15 11:30 Temperature Pulse Rate 84 88 89 Pulse Rate [ Anterior Bilateral Throughout] Pulse Rate [ From Monitor] Respiratory 26 H 26 H 24 Rate Respiratory Rate [Anterior Bilateral Throughout] Blood Pressure 99/50 99/50 119/68 O2 Sat by Pulse 100 100 100 Oximetry 05/25/17 05/25/17 05/25/17 11:45 12:00 12:15 Temperature 98.5 F Pulse Rate 83 94 H 112 H Pulse Rate [ Anterior Bilateral Throughout] Pulse Rate [ From Monitor] Respiratory 21 23 22 Rate Respiratory Rate [Anterior Bilateral Throughout] Blood Pressure 122/59 101/57 105/51 O2 Sat by Pulse 100 99 Oximetry 05/25/17 05/25/17 05/25/17 12:30 12:45 13:00 Temperature Pulse Rate 91 H 85 87 Pulse Rate [ Anterior Bilateral Throughout] Pulse Rate [ From Monitor] Respiratory 30 H 24 28 H Rate Respiratory Rate [Anterior Bilateral Throughout] Blood Pressure 101/62 86/50 93/59 O2 Sat by Pulse 100 98 96 Oximetry Constitutional: no acute distress, alert, other (critically ill on vent) Eyes: non-icteric ENT: oropharynx moist Neck: supple Effort: normal Ascultation: Bilateral: clear (anterior), diminished breath sounds, wheezes ( mild), rales, other (coarse BS bilaterally) Percussion: Bilateral: not dull Cardiovascular: regular rate and rhythm (no mrg) Gastrointestinal: hypoactive bowel sounds, tender, other (distended, ostomy looks good with some liquid stool in bag, brown + old blood) Integumentary: normal Extremities: no cyanosis, pink and warm, anasarca (1+ bilateral LE edema) Neurologic: normal mental status, non-focal exam, pupils equal and round, CN II- XII normal Psychiatric: mood appropriate, affect normal CBC and BMP: 05/25/17 07:08 05/25/17 07:08 ABG, PT/INR, D-dimer: ABG POC ABG pH 7.297 (7.35-7.45) L 05/23/17 08:55 POC ABG pCO2 41.0 (35-45) 05/23/17 08:55 POC ABG pO2 98 (80-105) 05/23/17 08:55 POC ABG HCO3 20.0 05/23/17 08:55 POC ABG Total CO2 21 05/23/17 08:55 POC ABG O2 Sat 97 05/23/17 08:55 PT/INR, D-dimer PT 21.3 Sec. (12.2-14.9) H 05/22/17 04:50 INR 1.75 (0.87-1.13) H 05/22/17 04:50 D-Dimer 8441.57 ng/mlDDU (0-234) H 05/04/17 Unknown Abnormal lab findings: Abnormal Labs 05/04/17 05/04/17 05/04/17 02:20 18:39 18:39 WBC 24.3 H RBC Hgb Hct RDW 16.4 H Plt Count 658 H Seg Neuts % (Manual) 94.5 H Lymphocytes % (Manual) 2.5 L Monocytes % (Manual) Nucleated RBC % Seg Neutrophils # Man 23.0 H Lymphocytes # (Manual) 0.6 L Monocytes # (Manual) Eosinophils # (Manual) PT INR APTT D-Dimer POC ABG pH POC ABG pCO2 POC ABG pO2 Sodium Potassium 3.2 L Chloride 92.6 L Carbon Dioxide 14 L BUN 66 H Creatinine 6.5 H Glucose POC Glucose Lactic Acid Calcium 7.5 L Ionized Calcium Phosphorus Magnesium ALT 5 L Alkaline Phosphatase 32 L Total Creatine Kinase CK-MB (CK-2) Troponin T C-Reactive Protein Total Protein 5.4 L Albumin 3.0 L Urine WBC (Auto) 100.0 H Urine Creatinine Salicylates Miscellaneous Test Crossmatch 05/04/17 05/04/17 05/04/17 18:39 18:55 Unknown WBC RBC Hgb Hct RDW Plt Count Seg Neuts % (Manual) Lymphocytes % (Manual) Monocytes % (Manual) Nucleated RBC % Seg Neutrophils # Man Lymphocytes # (Manual) Monocytes # (Manual) Eosinophils # (Manual) PT INR APTT D-Dimer POC ABG pH POC ABG pCO2 POC ABG pO2 Sodium Potassium Chloride Carbon Dioxide BUN Creatinine Glucose POC Glucose Lactic Acid 0.40 L Calcium Ionized Calcium Phosphorus Magnesium ALT Alkaline Phosphatase Total Creatine Kinase 155 H CK-MB (CK-2) 4.5 H Troponin T 0.033 H C-Reactive Protein Total Protein Albumin Urine WBC (Auto) Urine Creatinine Salicylates 0.3 L Miscellaneous Test Crossmatch 05/04/17 05/04/17 05/04/17 Unknown Unknown Unknown WBC RBC Hgb Hct RDW Plt Count Seg Neuts % (Manual) Lymphocytes % (Manual) Monocytes % (Manual) Nucleated RBC % Seg Neutrophils # Man Lymphocytes # (Manual) Monocytes # (Manual) Eosinophils # (Manual) PT INR APTT D-Dimer 8441.57 H POC ABG pH POC ABG pCO2 POC ABG pO2 Sodium Potassium Chloride Carbon Dioxide BUN Creatinine Glucose POC Glucose Lactic Acid 0.40 L Calcium Ionized Calcium Phosphorus Magnesium ALT Alkaline Phosphatase Total Creatine Kinase 246 H CK-MB (CK-2) 6.2 H Troponin T C-Reactive Protein Total Protein Albumin Urine WBC (Auto) Urine Creatinine Salicylates Miscellaneous Test Crossmatch 05/05/17 05/05/17 05/05/17 05:20 05:20 05:20 WBC 33.9 H RBC 3.39 L Hgb 9.3 L Hct RDW 16.7 H Plt Count 712 H Seg Neuts % (Manual) 91.0 H Lymphocytes % (Manual) 1.0 L Monocytes % (Manual) Nucleated RBC % Seg Neutrophils # Man 30.8 H Lymphocytes # (Manual) 0.3 L Monocytes # (Manual) 1.5 H Eosinophils # (Manual) PT INR APTT D-Dimer POC ABG pH POC ABG pCO2 POC ABG pO2 Sodium Potassium Chloride Carbon Dioxide 9 L* BUN 53 H Creatinine 5.4 H Glucose POC Glucose Lactic Acid Calcium 6.1 L D Ionized Calcium Phosphorus Magnesium ALT Alkaline Phosphatase Total Creatine Kinase 346 H CK-MB (CK-2) 8.2 H Troponin T C-Reactive Protein Total Protein Albumin Urine WBC (Auto) Urine Creatinine Salicylates Miscellaneous Test Crossmatch 05/05/17 05/05/17 05/05/17 10:43 17:45 17:45 WBC RBC Hgb 8.8 L Hct RDW Plt Count Seg Neuts % (Manual) Lymphocytes % (Manual) Monocytes % (Manual) Nucleated RBC % Seg Neutrophils # Man Lymphocytes # (Manual) Monocytes # (Manual) Eosinophils # (Manual) PT INR APTT D-Dimer POC ABG pH 6.872 L POC ABG pCO2 POC ABG pO2 120 H Sodium Potassium Chloride Carbon Dioxide BUN Creatinine Glucose POC Glucose Lactic Acid Calcium Ionized Calcium 3.5 L Phosphorus Magnesium ALT Alkaline Phosphatase Total Creatine Kinase CK-MB (CK-2) Troponin T C-Reactive Protein Total Protein Albumin Urine WBC (Auto) Urine Creatinine Salicylates Miscellaneous Test Crossmatch 05/05/17 05/05/17 05/05/17 17:45 20:58 Unknown WBC RBC Hgb 9.0 L Hct 29.8 L RDW Plt Count Seg Neuts % (Manual) Lymphocytes % (Manual) Monocytes % (Manual) Nucleated RBC % Seg Neutrophils # Man Lymphocytes # (Manual) Monocytes # (Manual) Eosinophils # (Manual) PT INR APTT D-Dimer POC ABG pH POC ABG pCO2 POC ABG pO2 Sodium Potassium Chloride Carbon Dioxide BUN Creatinine Glucose POC Glucose Lactic Acid Calcium Ionized Calcium Phosphorus 6.20 H Magnesium 1.20 L ALT Alkaline Phosphatase Total Creatine Kinase CK-MB (CK-2) Troponin T C-Reactive Protein Total Protein Albumin Urine WBC (Auto) Urine Creatinine 28.0 H Salicylates Miscellaneous Test Crossmatch 05/06/17 05/06/17 05/06/17 05:09 05:23 07:55 WBC RBC Hgb Hct RDW Plt Count Seg Neuts % (Manual) Lymphocytes % (Manual) Monocytes % (Manual) Nucleated RBC % Seg Neutrophils # Man Lymphocytes # (Manual) Monocytes # (Manual) Eosinophils # (Manual) PT INR APTT D-Dimer POC ABG pH 7.029 L 7.060 L POC ABG pCO2 54.8 H 48.6 H POC ABG pO2 74 L 43 L Sodium Potassium 3.5 L Chloride Carbon Dioxide 18 L D BUN 44 H Creatinine 3.5 H Glucose 252 H POC Glucose Lactic Acid Calcium 5.8 L* Ionized Calcium Phosphorus Magnesium ALT Alkaline Phosphatase Total Creatine Kinase CK-MB (CK-2) Troponin T C-Reactive Protein Total Protein Albumin Urine WBC (Auto) Urine Creatinine Salicylates Miscellaneous Test Crossmatch 05/06/17 05/06/17 05/06/17 07:55 15:28 17:30 WBC RBC Hgb Hct RDW Plt Count Seg Neuts % (Manual) Lymphocytes % (Manual) Monocytes % (Manual) Nucleated RBC % Seg Neutrophils # Man Lymphocytes # (Manual) Monocytes # (Manual) Eosinophils # (Manual) PT INR APTT D-Dimer POC ABG pH 7.066 L POC ABG pCO2 80.9 H POC ABG pO2 65 L Sodium Potassium Chloride Carbon Dioxide BUN Creatinine Glucose POC Glucose Lactic Acid Calcium Ionized Calcium Phosphorus Magnesium ALT Alkaline Phosphatase Total Creatine Kinase CK-MB (CK-2) Troponin T C-Reactive Protein 14.50 H Total Protein Albumin Urine WBC (Auto) Urine Creatinine Salicylates Miscellaneous Test Flexitest 1 H Crossmatch 05/06/17 05/06/17 05/07/17 17:30 Unknown 10:18 WBC 39.2 H 32.9 H RBC 3.27 L Hgb 9.3 L Hct 30.2 L RDW 16.4 H 17.0 H Plt Count 645 H 467 H Seg Neuts % (Manual) Lymphocytes % (Manual) 11.0 L Monocytes % (Manual) Nucleated RBC % Seg Neutrophils # Man 21.2 H Lymphocytes # (Manual) Monocytes # (Manual) 2.0 H Eosinophils # (Manual) PT INR APTT D-Dimer POC ABG pH POC ABG pCO2 POC ABG pO2 Sodium Potassium 3.4 L Chloride Carbon Dioxide BUN 41 H Creatinine 3.2 H Glucose 265 H POC Glucose Lactic Acid Calcium 6.7 L D Ionized Calcium Phosphorus Magnesium ALT Alkaline Phosphatase Total Creatine Kinase CK-MB (CK-2) Troponin T C-Reactive Protein Total Protein Albumin Urine WBC (Auto) Urine Creatinine Salicylates Miscellaneous Test Crossmatch 05/07/17 05/07/17 05/08/17 11:32 12:36 05:45 WBC 31.1 H RBC 3.41 L Hgb 9.8 L Hct RDW 16.9 H Plt Count Seg Neuts % (Manual) 96.0 H Lymphocytes % (Manual) 1.0 L Monocytes % (Manual) Nucleated RBC % Seg Neutrophils # Man 29.9 H Lymphocytes # (Manual) 0.3 L Monocytes # (Manual) Eosinophils # (Manual) PT INR APTT D-Dimer POC ABG pH 7.290 L POC ABG pCO2 48.3 H POC ABG pO2 51 L Sodium 146 H Potassium 3.1 L Chloride 109.2 H Carbon Dioxide 20 L BUN 38 H Creatinine 2.7 H Glucose 213 H POC Glucose Lactic Acid Calcium 6.6 L Ionized Calcium Phosphorus Magnesium ALT Alkaline Phosphatase Total Creatine Kinase CK-MB (CK-2) Troponin T C-Reactive Protein Total Protein Albumin Urine WBC (Auto) Urine Creatinine Salicylates Miscellaneous Test Crossmatch 05/08/17 05/08/17 05/09/17 05:45 18:55 04:05 WBC 26.1 H RBC Hgb Hct RDW 17.6 H Plt Count Seg Neuts % (Manual) Lymphocytes % (Manual) 5.0 L Monocytes % (Manual) Nucleated RBC % Seg Neutrophils # Man 16.7 H Lymphocytes # (Manual) Monocytes # (Manual) Eosinophils # (Manual) PT INR APTT D-Dimer POC ABG pH POC ABG pCO2 POC ABG pO2 Sodium 150 H Potassium Chloride 115.4 H 112.2 H Carbon Dioxide 20 L 18 L BUN 39 H 45 H Creatinine 2.4 H 2.3 H Glucose 160 H 219 H POC Glucose Lactic Acid Calcium 6.6 L 7.2 L Ionized Calcium Phosphorus Magnesium 1.40 L ALT 6 L Alkaline Phosphatase Total Creatine Kinase CK-MB (CK-2) Troponin T C-Reactive Protein Total Protein 4.1 L D Albumin 2.0 L Urine WBC (Auto) Urine Creatinine Salicylates Miscellaneous Test Crossmatch 05/09/17 05/09/17 05/09/17 04:05 05:15 05:45 WBC RBC Hgb Hct RDW Plt Count Seg Neuts % (Manual) Lymphocytes % (Manual) Monocytes % (Manual) Nucleated RBC % Seg Neutrophils # Man Lymphocytes # (Manual) Monocytes # (Manual) Eosinophils # (Manual) PT INR APTT D-Dimer POC ABG pH POC ABG pCO2 POC ABG pO2 Sodium 130 L D Potassium 3.4 L D Chloride 94.6 L Carbon Dioxide 19 L BUN 39 H Creatinine 2.1 H Glucose 549 H* 189 H POC Glucose 181 H Lactic Acid Calcium 6.6 L Ionized Calcium Phosphorus Magnesium ALT 6 L Alkaline Phosphatase 31 L Total Creatine Kinase CK-MB (CK-2) Troponin T C-Reactive Protein Total Protein 3.5 L Albumin 2.0 L Urine WBC (Auto) Urine Creatinine Salicylates Miscellaneous Test Crossmatch 05/09/17 05/09/17 05/09/17 08:03 11:08 16:15 WBC RBC Hgb Hct RDW Plt Count Seg Neuts % (Manual) Lymphocytes % (Manual) Monocytes % (Manual) Nucleated RBC % Seg Neutrophils # Man Lymphocytes # (Manual) Monocytes # (Manual) Eosinophils # (Manual) PT INR APTT D-Dimer POC ABG pH POC ABG pCO2 POC ABG pO2 Sodium Potassium Chloride 107.8 H Carbon Dioxide 21 L BUN 43 H Creatinine 2.4 H Glucose 195 H POC Glucose 299 H 111 H Lactic Acid Calcium 7.1 L Ionized Calcium Phosphorus Magnesium ALT Alkaline Phosphatase Total Creatine Kinase CK-MB (CK-2) Troponin T C-Reactive Protein Total Protein 3.9 L Albumin 2.3 L Urine WBC (Auto) Urine Creatinine Salicylates Miscellaneous Test Crossmatch 05/09/17 05/10/17 05/10/17 23:05 05:00 05:00 WBC 20.9 H RBC 3.53 L Hgb Hct RDW 17.3 H Plt Count Seg Neuts % (Manual) 72.0 H Lymphocytes % (Manual) 8.0 L Monocytes % (Manual) Nucleated RBC % Seg Neutrophils # Man 15.0 H Lymphocytes # (Manual) Monocytes # (Manual) Eosinophils # (Manual) PT INR APTT D-Dimer POC ABG pH POC ABG pCO2 POC ABG pO2 Sodium 135 L D Potassium 3.2 L Chloride Carbon Dioxide 21 L BUN 45 H Creatinine 2.2 H Glucose 308 H POC Glucose 336 H Lactic Acid Calcium 7.1 L Ionized Calcium Phosphorus Magnesium ALT 5 L Alkaline Phosphatase 30 L Total Creatine Kinase CK-MB (CK-2) Troponin T C-Reactive Protein Total Protein 3.8 L Albumin 2.1 L Urine WBC (Auto) Urine Creatinine Salicylates Miscellaneous Test Crossmatch 05/10/17 05/10/17 05/10/17 07:28 11:36 16:03 WBC RBC Hgb Hct RDW Plt Count Seg Neuts % (Manual) Lymphocytes % (Manual) Monocytes % (Manual) Nucleated RBC % Seg Neutrophils # Man Lymphocytes # (Manual) Monocytes # (Manual) Eosinophils # (Manual) PT INR APTT D-Dimer POC ABG pH POC ABG pCO2 POC ABG pO2 Sodium Potassium Chloride Carbon Dioxide BUN Creatinine Glucose POC Glucose 154 H 184 H 162 H Lactic Acid Calcium Ionized Calcium Phosphorus Magnesium ALT Alkaline Phosphatase Total Creatine Kinase CK-MB (CK-2) Troponin T C-Reactive Protein Total Protein Albumin Urine WBC (Auto) Urine Creatinine Salicylates Miscellaneous Test Crossmatch 05/10/17 05/11/17 05/11/17 21:13 06:50 06:50 WBC 24.4 H RBC Hgb Hct RDW 17.4 H Plt Count Seg Neuts % (Manual) Lymphocytes % (Manual) 5.0 L Monocytes % (Manual) Nucleated RBC % Seg Neutrophils # Man 16.3 H Lymphocytes # (Manual) Monocytes # (Manual) 1.0 H Eosinophils # (Manual) PT INR APTT D-Dimer POC ABG pH POC ABG pCO2 POC ABG pO2 Sodium Potassium 3.4 L Chloride Carbon Dioxide BUN 50 H Creatinine 2.8 H Glucose 131 H POC Glucose 188 H Lactic Acid Calcium 7.6 L Ionized Calcium Phosphorus Magnesium ALT < 5 L Alkaline Phosphatase 25 L Total Creatine Kinase CK-MB (CK-2) Troponin T C-Reactive Protein Total Protein 3.6 L Albumin 2.0 L Urine WBC (Auto) Urine Creatinine Salicylates Miscellaneous Test Crossmatch 05/11/17 05/11/17 05/11/17 09:33 11:45 15:46 WBC RBC Hgb Hct RDW Plt Count Seg Neuts % (Manual) Lymphocytes % (Manual) Monocytes % (Manual) Nucleated RBC % Seg Neutrophils # Man Lymphocytes # (Manual) Monocytes # (Manual) Eosinophils # (Manual) PT INR APTT D-Dimer POC ABG pH POC ABG pCO2 POC ABG pO2 Sodium Potassium Chloride Carbon Dioxide BUN Creatinine Glucose POC Glucose 140 H 157 H 137 H Lactic Acid Calcium Ionized Calcium Phosphorus Magnesium ALT Alkaline Phosphatase Total Creatine Kinase CK-MB (CK-2) Troponin T C-Reactive Protein Total Protein Albumin Urine WBC (Auto) Urine Creatinine Salicylates Miscellaneous Test Crossmatch 05/11/17 05/11/17 05/12/17 17:50 20:58 05:00 WBC 23.1 H RBC 3.59 L Hgb Hct RDW 17.1 H Plt Count Seg Neuts % (Manual) 94.0 H Lymphocytes % (Manual) 0 L Monocytes % (Manual) Nucleated RBC % Seg Neutrophils # Man 21.7 H Lymphocytes # (Manual) 0.0 L Monocytes # (Manual) Eosinophils # (Manual) PT INR APTT D-Dimer POC ABG pH POC ABG pCO2 POC ABG pO2 Sodium Potassium Chloride Carbon Dioxide BUN Creatinine Glucose POC Glucose 155 H Lactic Acid Calcium Ionized Calcium Phosphorus Magnesium ALT Alkaline Phosphatase Total Creatine Kinase CK-MB (CK-2) Troponin T C-Reactive Protein Total Protein Albumin Urine WBC (Auto) 27.0 H Urine Creatinine Salicylates Miscellaneous Test Crossmatch 05/12/17 05/12/17 05/12/17 05:00 08:28 11:28 WBC RBC Hgb Hct RDW Plt Count Seg Neuts % (Manual) Lymphocytes % (Manual) Monocytes % (Manual) Nucleated RBC % Seg Neutrophils # Man Lymphocytes # (Manual) Monocytes # (Manual) Eosinophils # (Manual) PT INR APTT D-Dimer POC ABG pH POC ABG pCO2 POC ABG pO2 Sodium Potassium Chloride 111.7 H Carbon Dioxide BUN 53 H Creatinine 2.8 H Glucose 102 H POC Glucose 130 H 171 H Lactic Acid Calcium 6.9 L Ionized Calcium Phosphorus Magnesium ALT < 5 L Alkaline Phosphatase 25 L Total Creatine Kinase CK-MB (CK-2) Troponin T C-Reactive Protein Total Protein 3.3 L Albumin 1.7 L Urine WBC (Auto) Urine Creatinine Salicylates Miscellaneous Test Crossmatch 05/12/17 05/13/17 05/13/17 22:20 06:54 06:54 WBC 20.8 H RBC 3.17 L Hgb 9.2 L Hct 28.9 L RDW 17.7 H Plt Count Seg Neuts % (Manual) 93.0 H Lymphocytes % (Manual) 1.0 L Monocytes % (Manual) Nucleated RBC % Seg Neutrophils # Man 19.3 H Lymphocytes # (Manual) 0.2 L Monocytes # (Manual) Eosinophils # (Manual) 0.6 H PT INR APTT D-Dimer POC ABG pH POC ABG pCO2 POC ABG pO2 Sodium Potassium 3.3 L Chloride 110.0 H Carbon Dioxide 20 L BUN 48 H Creatinine 2.8 H Glucose 119 H POC Glucose 179 H Lactic Acid Calcium 7.4 L Ionized Calcium Phosphorus Magnesium ALT Alkaline Phosphatase Total Creatine Kinase CK-MB (CK-2) Troponin T C-Reactive Protein Total Protein Albumin Urine WBC (Auto) Urine Creatinine Salicylates Miscellaneous Test Crossmatch 05/13/17 05/13/17 05/13/17 07:35 12:52 23:32 WBC RBC Hgb Hct RDW Plt Count Seg Neuts % (Manual) Lymphocytes % (Manual) Monocytes % (Manual) Nucleated RBC % Seg Neutrophils # Man Lymphocytes # (Manual) Monocytes # (Manual) Eosinophils # (Manual) PT INR APTT D-Dimer POC ABG pH POC ABG pCO2 POC ABG pO2 Sodium Potassium Chloride Carbon Dioxide BUN Creatinine Glucose POC Glucose 139 H 159 H 179 H Lactic Acid Calcium Ionized Calcium Phosphorus Magnesium ALT Alkaline Phosphatase Total Creatine Kinase CK-MB (CK-2) Troponin T C-Reactive Protein Total Protein Albumin Urine WBC (Auto) Urine Creatinine Salicylates Miscellaneous Test Crossmatch 05/14/17 05/14/17 05/14/17 04:00 05:00 07:30 WBC 19.3 H RBC 3.16 L Hgb 9.1 L Hct 29.1 L RDW 17.9 H Plt Count Seg Neuts % (Manual) 87.0 H Lymphocytes % (Manual) 2.0 L Monocytes % (Manual) Nucleated RBC % Seg Neutrophils # Man 16.8 H Lymphocytes # (Manual) 0.4 L Monocytes # (Manual) 1.0 H Eosinophils # (Manual) 0.6 H PT INR APTT D-Dimer POC ABG pH POC ABG pCO2 POC ABG pO2 Sodium 146 H Potassium Chloride 114.7 H Carbon Dioxide 19 L BUN 43 H Creatinine 2.5 H Glucose POC Glucose 110 H Lactic Acid Calcium 7.5 L Ionized Calcium Phosphorus Magnesium ALT Alkaline Phosphatase Total Creatine Kinase CK-MB (CK-2) Troponin T C-Reactive Protein Total Protein Albumin Urine WBC (Auto) Urine Creatinine Salicylates Miscellaneous Test Crossmatch 05/14/17 05/14/17 05/14/17 11:43 15:44 20:10 WBC RBC Hgb Hct RDW Plt Count Seg Neuts % (Manual) Lymphocytes % (Manual) Monocytes % (Manual) Nucleated RBC % Seg Neutrophils # Man Lymphocytes # (Manual) Monocytes # (Manual) Eosinophils # (Manual) PT INR APTT D-Dimer POC ABG pH POC ABG pCO2 POC ABG pO2 Sodium Potassium Chloride Carbon Dioxide BUN Creatinine Glucose POC Glucose 169 H 201 H 223 H Lactic Acid Calcium Ionized Calcium Phosphorus Magnesium ALT Alkaline Phosphatase Total Creatine Kinase CK-MB (CK-2) Troponin T C-Reactive Protein Total Protein Albumin Urine WBC (Auto) Urine Creatinine Salicylates Miscellaneous Test Crossmatch 05/15/17 05/15/17 05/15/17 06:10 08:50 12:57 WBC RBC Hgb Hct RDW Plt Count Seg Neuts % (Manual) Lymphocytes % (Manual) Monocytes % (Manual) Nucleated RBC % Seg Neutrophils # Man Lymphocytes # (Manual) Monocytes # (Manual) Eosinophils # (Manual) PT INR APTT D-Dimer POC ABG pH POC ABG pCO2 POC ABG pO2 Sodium Potassium Chloride 113.6 H Carbon Dioxide 18 L BUN 43 H Creatinine 2.7 H Glucose 123 H POC Glucose 204 H 127 H Lactic Acid Calcium 7.2 L Ionized Calcium Phosphorus Magnesium ALT Alkaline Phosphatase Total Creatine Kinase CK-MB (CK-2) Troponin T C-Reactive Protein Total Protein Albumin Urine WBC (Auto) Urine Creatinine Salicylates Miscellaneous Test Crossmatch 05/15/17 05/15/17 05/15/17 17:43 21:29 23:51 WBC RBC Hgb Hct RDW Plt Count Seg Neuts % (Manual) Lymphocytes % (Manual) Monocytes % (Manual) Nucleated RBC % Seg Neutrophils # Man Lymphocytes # (Manual) Monocytes # (Manual) Eosinophils # (Manual) PT INR APTT D-Dimer POC ABG pH 6.983 L POC ABG pCO2 67.5 H POC ABG pO2 Sodium Potassium Chloride Carbon Dioxide BUN Creatinine Glucose POC Glucose 121 H 129 H Lactic Acid Calcium Ionized Calcium Phosphorus Magnesium ALT Alkaline Phosphatase Total Creatine Kinase CK-MB (CK-2) Troponin T C-Reactive Protein Total Protein Albumin Urine WBC (Auto) Urine Creatinine Salicylates Miscellaneous Test Crossmatch 05/16/17 05/16/17 05/16/17 00:15 06:00 07:46 WBC RBC Hgb Hct RDW Plt Count Seg Neuts % (Manual) Lymphocytes % (Manual) Monocytes % (Manual) Nucleated RBC % Seg Neutrophils # Man Lymphocytes # (Manual) Monocytes # (Manual) Eosinophils # (Manual) PT INR APTT D-Dimer POC ABG pH POC ABG pCO2 POC ABG pO2 Sodium Potassium Chloride 114.2 H Carbon Dioxide 17 L BUN 44 H Creatinine 3.3 H Glucose 118 H POC Glucose 135 H Lactic Acid 0.60 L Calcium 7.5 L Ionized Calcium Phosphorus Magnesium ALT Alkaline Phosphatase Total Creatine Kinase CK-MB (CK-2) Troponin T C-Reactive Protein Total Protein Albumin Urine WBC (Auto) Urine Creatinine Salicylates Miscellaneous Test Crossmatch 05/16/17 05/16/17 05/16/17 09:38 10:20 10:20 WBC 18.6 H RBC 3.08 L Hgb 9.0 L Hct 29.0 L RDW 18.8 H Plt Count Seg Neuts % (Manual) Lymphocytes % (Manual) 5.0 L Monocytes % (Manual) Nucleated RBC % Seg Neutrophils # Man 11.3 H Lymphocytes # (Manual) 0.9 L Monocytes # (Manual) 1.3 H Eosinophils # (Manual) PT INR APTT D-Dimer POC ABG pH 7.081 L POC ABG pCO2 46.3 H POC ABG pO2 107 H Sodium Potassium Chloride 114.9 H Carbon Dioxide 14 L BUN 44 H Creatinine 3.0 H Glucose 115 H POC Glucose Lactic Acid Calcium 7.3 L Ionized Calcium Phosphorus 5.40 H Magnesium ALT < 5 L Alkaline Phosphatase 17 L Total Creatine Kinase CK-MB (CK-2) Troponin T C-Reactive Protein Total Protein 4.2 L D Albumin 2.9 L Urine WBC (Auto) Urine Creatinine Salicylates Miscellaneous Test Crossmatch 05/17/17 05/17/17 05/17/17 03:44 04:00 05:00 WBC 21.9 H RBC 2.89 L Hgb 8.3 L Hct 26.4 L RDW 18.2 H Plt Count Seg Neuts % (Manual) Lymphocytes % (Manual) 7.0 L Monocytes % (Manual) Nucleated RBC % Seg Neutrophils # Man 15.3 H Lymphocytes # (Manual) Monocytes # (Manual) 1.5 H Eosinophils # (Manual) PT INR APTT D-Dimer POC ABG pH 7.199 L POC ABG pCO2 POC ABG pO2 107 H Sodium Potassium Chloride 111.7 H Carbon Dioxide 16 L BUN 43 H Creatinine 3.4 H Glucose POC Glucose Lactic Acid Calcium 7.3 L Ionized Calcium Phosphorus Magnesium ALT Alkaline Phosphatase Total Creatine Kinase CK-MB (CK-2) Troponin T C-Reactive Protein Total Protein Albumin Urine WBC (Auto) Urine Creatinine Salicylates Miscellaneous Test Crossmatch 05/17/17 05/17/17 05/18/17 05:00 12:20 04:43 WBC RBC Hgb Hct RDW Plt Count Seg Neuts % (Manual) Lymphocytes % (Manual) Monocytes % (Manual) Nucleated RBC % Seg Neutrophils # Man Lymphocytes # (Manual) Monocytes # (Manual) Eosinophils # (Manual) PT INR APTT D-Dimer POC ABG pH 7.251 L POC ABG pCO2 POC ABG pO2 126 H Sodium Potassium Chloride Carbon Dioxide BUN Creatinine Glucose POC Glucose Lactic Acid Calcium Ionized Calcium Phosphorus Magnesium ALT Alkaline Phosphatase Total Creatine Kinase CK-MB (CK-2) Troponin T C-Reactive Protein 2.30 H Total Protein Albumin Urine WBC (Auto) Urine Creatinine Salicylates Miscellaneous Test Flexitest 1 H Crossmatch 05/18/17 05/18/17 05/18/17 14:46 21:30 Unknown WBC RBC Hgb Hct RDW Plt Count Seg Neuts % (Manual) Lymphocytes % (Manual) Monocytes % (Manual) Nucleated RBC % Seg Neutrophils # Man Lymphocytes # (Manual) Monocytes # (Manual) Eosinophils # (Manual) PT INR APTT D-Dimer POC ABG pH 7.227 L POC ABG pCO2 POC ABG pO2 126 H Sodium Potassium 3.2 L Chloride 108.9 H Carbon Dioxide 19 L BUN 44 H Creatinine 3.6 H Glucose POC Glucose 206 H Lactic Acid Calcium 7.3 L Ionized Calcium Phosphorus Magnesium ALT Alkaline Phosphatase Total Creatine Kinase CK-MB (CK-2) Troponin T C-Reactive Protein Total Protein Albumin Urine WBC (Auto) Urine Creatinine Salicylates Miscellaneous Test Crossmatch 05/18/17 05/19/17 05/19/17 Unknown 05:26 06:00 WBC 25.2 H RBC 2.76 L Hgb 8.0 L Hct 24.9 L RDW 17.7 H Plt Count Seg Neuts % (Manual) 86.0 H Lymphocytes % (Manual) 1.0 L Monocytes % (Manual) Nucleated RBC % Seg Neutrophils # Man 21.7 H Lymphocytes # (Manual) 0.3 L Monocytes # (Manual) 1.5 H Eosinophils # (Manual) PT INR APTT D-Dimer POC ABG pH 7.216 L POC ABG pCO2 47.0 H POC ABG pO2 Sodium Potassium Chloride Carbon Dioxide BUN Creatinine Glucose POC Glucose 173 H Lactic Acid Calcium Ionized Calcium Phosphorus Magnesium ALT Alkaline Phosphatase Total Creatine Kinase CK-MB (CK-2) Troponin T C-Reactive Protein Total Protein Albumin Urine WBC (Auto) Urine Creatinine Salicylates Miscellaneous Test Crossmatch 05/19/17 05/19/17 05/19/17 11:47 18:04 23:54 WBC RBC Hgb Hct RDW Plt Count Seg Neuts % (Manual) Lymphocytes % (Manual) Monocytes % (Manual) Nucleated RBC % Seg Neutrophils # Man Lymphocytes # (Manual) Monocytes # (Manual) Eosinophils # (Manual) PT INR APTT D-Dimer POC ABG pH POC ABG pCO2 POC ABG pO2 Sodium Potassium Chloride Carbon Dioxide BUN Creatinine Glucose POC Glucose 203 H 178 H Lactic Acid Calcium Ionized Calcium Phosphorus Magnesium ALT Alkaline Phosphatase Total Creatine Kinase CK-MB (CK-2) Troponin T C-Reactive Protein Total Protein Albumin Urine WBC (Auto) 78.0 H Urine Creatinine Salicylates Miscellaneous Test Crossmatch 05/19/17 05/19/17 05/20/17 Unknown Unknown 05:03 WBC 36.5 H RBC 2.71 L Hgb 7.7 L Hct 24.3 L RDW 18.3 H Plt Count Seg Neuts % (Manual) 79.0 H Lymphocytes % (Manual) 3.0 L Monocytes % (Manual) Nucleated RBC % Seg Neutrophils # Man 28.8 H Lymphocytes # (Manual) 1.1 L Monocytes # (Manual) 2.6 H Eosinophils # (Manual) PT INR APTT D-Dimer POC ABG pH 7.322 L POC ABG pCO2 46.3 H POC ABG pO2 160 H Sodium Potassium 3.5 L Chloride 108.1 H Carbon Dioxide 20 L BUN 36 H Creatinine 3.1 H Glucose 165 H POC Glucose Lactic Acid Calcium 7.7 L Ionized Calcium Phosphorus Magnesium ALT Alkaline Phosphatase Total Creatine Kinase CK-MB (CK-2) Troponin T C-Reactive Protein Total Protein Albumin Urine WBC (Auto) Urine Creatinine Salicylates Miscellaneous Test Crossmatch 05/20/17 05/20/17 05/20/17 05:30 05:30 05:44 WBC 44.4 H* RBC 2.65 L Hgb 7.6 L Hct 23.7 L RDW 18.0 H Plt Count Seg Neuts % (Manual) Lymphocytes % (Manual) 7.0 L Monocytes % (Manual) 12.0 H Nucleated RBC % Seg Neutrophils # Man 22.2 H Lymphocytes # (Manual) Monocytes # (Manual) 5.3 H Eosinophils # (Manual) PT INR APTT D-Dimer POC ABG pH POC ABG pCO2 POC ABG pO2 Sodium Potassium 3.5 L Chloride Carbon Dioxide BUN 23 H Creatinine 2.1 H Glucose 167 H POC Glucose 182 H Lactic Acid Calcium 7.7 L Ionized Calcium Phosphorus Magnesium 1.40 L ALT Alkaline Phosphatase Total Creatine Kinase CK-MB (CK-2) Troponin T C-Reactive Protein Total Protein Albumin Urine WBC (Auto) Urine Creatinine Salicylates Miscellaneous Test Crossmatch 05/20/17 05/20/17 05/20/17 11:59 13:46 13:46 WBC RBC Hgb Hct RDW Plt Count Seg Neuts % (Manual) Lymphocytes % (Manual) Monocytes % (Manual) Nucleated RBC % Seg Neutrophils # Man Lymphocytes # (Manual) Monocytes # (Manual) Eosinophils # (Manual) PT 22.6 H INR 1.89 H APTT 44.6 H D-Dimer POC ABG pH POC ABG pCO2 POC ABG pO2 Sodium Potassium Chloride Carbon Dioxide BUN Creatinine Glucose POC Glucose 162 H Lactic Acid Calcium Ionized Calcium Phosphorus Magnesium ALT Alkaline Phosphatase Total Creatine Kinase CK-MB (CK-2) Troponin T C-Reactive Protein Total Protein Albumin Urine WBC (Auto) Urine Creatinine Salicylates Miscellaneous Test Crossmatch See Detail 05/20/17 05/20/17 05/20/17 17:36 20:00 20:44 WBC 38.3 H RBC 3.60 L Hgb Hct RDW 15.8 H Plt Count Seg Neuts % (Manual) Lymphocytes % (Manual) Monocytes % (Manual) Nucleated RBC % Seg Neutrophils # Man Lymphocytes # (Manual) Monocytes # (Manual) Eosinophils # (Manual) PT 21.4 H INR 1.76 H APTT 172.2 H* D-Dimer POC ABG pH POC ABG pCO2 POC ABG pO2 Sodium Potassium Chloride Carbon Dioxide BUN Creatinine Glucose POC Glucose 144 H Lactic Acid Calcium Ionized Calcium Phosphorus Magnesium ALT Alkaline Phosphatase Total Creatine Kinase CK-MB (CK-2) Troponin T C-Reactive Protein Total Protein Albumin Urine WBC (Auto) Urine Creatinine Salicylates Miscellaneous Test Crossmatch 05/20/17 05/20/17 05/21/17 22:20 23:37 05:20 WBC RBC Hgb Hct RDW Plt Count Seg Neuts % (Manual) Lymphocytes % (Manual) Monocytes % (Manual) Nucleated RBC % Seg Neutrophils # Man Lymphocytes # (Manual) Monocytes # (Manual) Eosinophils # (Manual) PT INR APTT 42.8 H D-Dimer POC ABG pH POC ABG pCO2 POC ABG pO2 Sodium Potassium 3.5 L Chloride Carbon Dioxide BUN Creatinine 1.5 H Glucose 106 H POC Glucose 113 H Lactic Acid Calcium 7.7 L Ionized Calcium Phosphorus Magnesium ALT Alkaline Phosphatase Total Creatine Kinase CK-MB (CK-2) Troponin T C-Reactive Protein Total Protein Albumin Urine WBC (Auto) Urine Creatinine Salicylates Miscellaneous Test Crossmatch 05/21/17 05/21/17 05/21/17 05:20 05:20 05:31 WBC 31.6 H RBC Hgb Hct RDW 15.8 H Plt Count Seg Neuts % (Manual) 90.0 H Lymphocytes % (Manual) 3.0 L Monocytes % (Manual) Nucleated RBC % Seg Neutrophils # Man 28.4 H Lymphocytes # (Manual) 0.9 L Monocytes # (Manual) Eosinophils # (Manual) 1.3 H PT 19.1 H INR 1.53 H APTT 37.9 H D-Dimer POC ABG pH POC ABG pCO2 POC ABG pO2 Sodium Potassium Chloride Carbon Dioxide BUN Creatinine Glucose POC Glucose 126 H Lactic Acid Calcium Ionized Calcium Phosphorus Magnesium ALT Alkaline Phosphatase Total Creatine Kinase CK-MB (CK-2) Troponin T C-Reactive Protein Total Protein Albumin Urine WBC (Auto) Urine Creatinine Salicylates Miscellaneous Test Crossmatch 05/21/17 05/21/17 05/21/17 12:46 13:00 13:00 WBC 32.9 H RBC 3.09 L Hgb 9.0 L Hct 27.6 L RDW 16.3 H Plt Count Seg Neuts % (Manual) 86.0 H Lymphocytes % (Manual) 2.0 L Monocytes % (Manual) Nucleated RBC % 2.0 H Seg Neutrophils # Man 28.3 H Lymphocytes # (Manual) 0.7 L Monocytes # (Manual) Eosinophils # (Manual) PT INR APTT D-Dimer POC ABG pH POC ABG pCO2 POC ABG pO2 Sodium Potassium 3.3 L Chloride 108.4 H Carbon Dioxide 20 L BUN Creatinine 1.4 H Glucose 119 H POC Glucose 157 H Lactic Acid Calcium 6.5 L D Ionized Calcium Phosphorus Magnesium ALT Alkaline Phosphatase 28 L Total Creatine Kinase CK-MB (CK-2) Troponin T C-Reactive Protein Total Protein 3.2 L Albumin 1.7 L Urine WBC (Auto) Urine Creatinine Salicylates Miscellaneous Test Crossmatch 05/21/17 05/21/17 05/21/17 13:00 18:15 21:00 WBC 42.4 H* RBC 2.85 L Hgb 8.2 L Hct 25.9 L RDW 16.3 H Plt Count Seg Neuts % (Manual) 95.0 H Lymphocytes % (Manual) 3.0 L Monocytes % (Manual) Nucleated RBC % Seg Neutrophils # Man 40.3 H Lymphocytes # (Manual) Monocytes # (Manual) Eosinophils # (Manual) PT 19.7 H INR 1.59 H APTT 41.1 H D-Dimer POC ABG pH POC ABG pCO2 POC ABG pO2 Sodium Potassium Chloride Carbon Dioxide BUN Creatinine Glucose POC Glucose 149 H Lactic Acid Calcium Ionized Calcium Phosphorus Magnesium ALT Alkaline Phosphatase Total Creatine Kinase CK-MB (CK-2) Troponin T C-Reactive Protein Total Protein Albumin Urine WBC (Auto) Urine Creatinine Salicylates Miscellaneous Test Crossmatch 05/22/17 05/22/17 05/22/17 00:02 04:50 04:50 WBC RBC Hgb Hct RDW Plt Count Seg Neuts % (Manual) Lymphocytes % (Manual) Monocytes % (Manual) Nucleated RBC % Seg Neutrophils # Man Lymphocytes # (Manual) Monocytes # (Manual) Eosinophils # (Manual) PT INR APTT D-Dimer POC ABG pH POC ABG pCO2 POC ABG pO2 Sodium Potassium Chloride 109.4 H Carbon Dioxide 18 L BUN Creatinine 1.8 H Glucose 164 H POC Glucose 155 H Lactic Acid Calcium 6.6 L Ionized Calcium Phosphorus Magnesium 1.40 L ALT Alkaline Phosphatase 33 L Total Creatine Kinase CK-MB (CK-2) Troponin T C-Reactive Protein Total Protein 3.6 L Albumin 2.0 L Urine WBC (Auto) Urine Creatinine Salicylates Miscellaneous Test Crossmatch 05/22/17 05/22/17 05/22/17 04:50 04:50 05:39 WBC 41.8 H* RBC 2.65 L Hgb 7.8 L Hct 24.1 L RDW 16.5 H Plt Count Seg Neuts % (Manual) 73.0 H Lymphocytes % (Manual) 4.0 L Monocytes % (Manual) Nucleated RBC % Seg Neutrophils # Man 30.5 H Lymphocytes # (Manual) Monocytes # (Manual) 1.3 H Eosinophils # (Manual) PT 21.3 H INR 1.75 H APTT 39.4 H D-Dimer POC ABG pH POC ABG pCO2 POC ABG pO2 Sodium Potassium Chloride Carbon Dioxide BUN Creatinine Glucose POC Glucose 200 H Lactic Acid Calcium Ionized Calcium Phosphorus Magnesium ALT Alkaline Phosphatase Total Creatine Kinase CK-MB (CK-2) Troponin T C-Reactive Protein Total Protein Albumin Urine WBC (Auto) Urine Creatinine Salicylates Miscellaneous Test Crossmatch 05/22/17 05/22/17 05/22/17 05:46 10:32 11:41 WBC RBC Hgb Hct RDW Plt Count Seg Neuts % (Manual) Lymphocytes % (Manual) Monocytes % (Manual) Nucleated RBC % Seg Neutrophils # Man Lymphocytes # (Manual) Monocytes # (Manual) Eosinophils # (Manual) PT INR APTT D-Dimer POC ABG pH 7.225 L 7.317 L POC ABG pCO2 45.3 H POC ABG pO2 Sodium Potassium Chloride Carbon Dioxide BUN Creatinine Glucose POC Glucose 169 H Lactic Acid Calcium Ionized Calcium Phosphorus Magnesium ALT Alkaline Phosphatase Total Creatine Kinase CK-MB (CK-2) Troponin T C-Reactive Protein Total Protein Albumin Urine WBC (Auto) Urine Creatinine Salicylates Miscellaneous Test Crossmatch 05/22/17 05/22/17 05/22/17 12:45 18:01 22:50 WBC RBC Hgb 7.4 L 8.8 L Hct 23.5 L 27.8 L RDW Plt Count Seg Neuts % (Manual) Lymphocytes % (Manual) Monocytes % (Manual) Nucleated RBC % Seg Neutrophils # Man Lymphocytes # (Manual) Monocytes # (Manual) Eosinophils # (Manual) PT INR APTT D-Dimer POC ABG pH POC ABG pCO2 POC ABG pO2 Sodium Potassium Chloride Carbon Dioxide BUN Creatinine Glucose POC Glucose 148 H Lactic Acid Calcium Ionized Calcium Phosphorus Magnesium ALT Alkaline Phosphatase Total Creatine Kinase CK-MB (CK-2) Troponin T C-Reactive Protein Total Protein Albumin Urine WBC (Auto) Urine Creatinine Salicylates Miscellaneous Test Crossmatch 05/22/17 05/23/17 05/23/17 23:53 05:15 05:15 WBC 40.9 H* RBC 3.06 L Hgb 8.9 L Hct 27.4 L RDW 16.7 H Plt Count Seg Neuts % (Manual) 93.0 H Lymphocytes % (Manual) 3.0 L Monocytes % (Manual) Nucleated RBC % Seg Neutrophils # Man 38.0 H Lymphocytes # (Manual) Monocytes # (Manual) Eosinophils # (Manual) PT INR APTT D-Dimer POC ABG pH POC ABG pCO2 POC ABG pO2 Sodium Potassium Chloride 110.6 H Carbon Dioxide 19 L BUN 18 H Creatinine 1.9 H Glucose 102 H POC Glucose 143 H Lactic Acid Calcium 7.0 L Ionized Calcium Phosphorus Magnesium ALT Alkaline Phosphatase Total Creatine Kinase CK-MB (CK-2) Troponin T C-Reactive Protein Total Protein Albumin Urine WBC (Auto) Urine Creatinine Salicylates Miscellaneous Test Crossmatch 05/23/17 05/23/17 05/23/17 05:23 06:09 08:55 WBC RBC Hgb Hct RDW Plt Count Seg Neuts % (Manual) Lymphocytes % (Manual) Monocytes % (Manual) Nucleated RBC % Seg Neutrophils # Man Lymphocytes # (Manual) Monocytes # (Manual) Eosinophils # (Manual) PT INR APTT D-Dimer POC ABG pH 7.240 L 7.297 L POC ABG pCO2 POC ABG pO2 Sodium Potassium Chloride Carbon Dioxide BUN Creatinine Glucose POC Glucose 124 H Lactic Acid Calcium Ionized Calcium Phosphorus Magnesium ALT Alkaline Phosphatase Total Creatine Kinase CK-MB (CK-2) Troponin T C-Reactive Protein Total Protein Albumin Urine WBC (Auto) Urine Creatinine Salicylates Miscellaneous Test Crossmatch 05/23/17 05/23/17 05/23/17 12:46 16:55 18:33 WBC RBC Hgb Hct RDW Plt Count Seg Neuts % (Manual) Lymphocytes % (Manual) Monocytes % (Manual) Nucleated RBC % Seg Neutrophils # Man Lymphocytes # (Manual) Monocytes # (Manual) Eosinophils # (Manual) PT INR APTT D-Dimer POC ABG pH POC ABG pCO2 POC ABG pO2 Sodium Potassium Chloride Carbon Dioxide BUN Creatinine Glucose POC Glucose 159 H 139 H Lactic Acid Calcium Ionized Calcium Phosphorus Magnesium ALT Alkaline Phosphatase Total Creatine Kinase CK-MB (CK-2) Troponin T C-Reactive Protein 7.10 H Total Protein Albumin Urine WBC (Auto) Urine Creatinine Salicylates Miscellaneous Test Crossmatch 05/23/17 05/24/17 05/24/17 23:25 06:14 07:16 WBC RBC Hgb Hct RDW Plt Count Seg Neuts % (Manual) Lymphocytes % (Manual) Monocytes % (Manual) Nucleated RBC % Seg Neutrophils # Man Lymphocytes # (Manual) Monocytes # (Manual) Eosinophils # (Manual) PT INR APTT D-Dimer POC ABG pH POC ABG pCO2 POC ABG pO2 Sodium Potassium Chloride Carbon Dioxide BUN Creatinine 1.5 H Glucose 130 H POC Glucose 143 H 159 H Lactic Acid Calcium 7.6 L Ionized Calcium Phosphorus Magnesium ALT Alkaline Phosphatase Total Creatine Kinase CK-MB (CK-2) Troponin T C-Reactive Protein Total Protein Albumin Urine WBC (Auto) Urine Creatinine Salicylates Miscellaneous Test Crossmatch 05/24/17 05/24/17 05/24/17 07:16 11:42 17:27 WBC 36.9 H RBC 2.90 L Hgb 8.5 L Hct 26.2 L RDW 16.8 H Plt Count Seg Neuts % (Manual) 96.5 H Lymphocytes % (Manual) 0 L Monocytes % (Manual) Nucleated RBC % 2.0 H Seg Neutrophils # Man 35.6 H Lymphocytes # (Manual) 0.0 L Monocytes # (Manual) 0.9 H Eosinophils # (Manual) PT INR APTT D-Dimer POC ABG pH POC ABG pCO2 POC ABG pO2 Sodium Potassium Chloride Carbon Dioxide BUN Creatinine Glucose POC Glucose 168 H 59 L Lactic Acid Calcium Ionized Calcium Phosphorus Magnesium ALT Alkaline Phosphatase Total Creatine Kinase CK-MB (CK-2) Troponin T C-Reactive Protein Total Protein Albumin Urine WBC (Auto) Urine Creatinine Salicylates Miscellaneous Test Crossmatch 05/24/17 05/24/17 05/25/17 18:43 23:47 05:37 WBC RBC Hgb Hct RDW Plt Count Seg Neuts % (Manual) Lymphocytes % (Manual) Monocytes % (Manual) Nucleated RBC % Seg Neutrophils # Man Lymphocytes # (Manual) Monocytes # (Manual) Eosinophils # (Manual) PT INR APTT D-Dimer POC ABG pH POC ABG pCO2 POC ABG pO2 Sodium Potassium Chloride Carbon Dioxide BUN Creatinine Glucose POC Glucose 139 H 150 H 152 H Lactic Acid Calcium Ionized Calcium Phosphorus Magnesium ALT Alkaline Phosphatase Total Creatine Kinase CK-MB (CK-2) Troponin T C-Reactive Protein Total Protein Albumin Urine WBC (Auto) Urine Creatinine Salicylates Miscellaneous Test Crossmatch 12/03/17 12/03/17 12/03/17 07:08 07:08 12:06 WBC 31.7 H RBC 2.81 L Hgb 8.2 L Hct 25.4 L RDW 16.3 H Plt Count Seg Neuts % (Manual) 97.0 H Lymphocytes % (Manual) 1.5 L Monocytes % (Manual) Nucleated RBC % 3.5 H Seg Neutrophils # Man 30.7 H Lymphocytes # (Manual) 0.5 L Monocytes # (Manual) Eosinophils # (Manual) PT INR APTT D-Dimer POC ABG pH POC ABG pCO2 POC ABG pO2 Sodium Potassium Chloride Carbon Dioxide BUN 24 H Creatinine 1.5 H Glucose 126 H POC Glucose 178 H Lactic Acid Calcium 8.0 L Ionized Calcium Phosphorus Magnesium ALT Alkaline Phosphatase Total Creatine Kinase CK-MB (CK-2) Troponin T C-Reactive Protein Total Protein Albumin Urine WBC (Auto) Urine Creatinine Salicylates Miscellaneous Test Crossmatch
[2017-05-25 14:40] LABS: ISTAT Base Excess 1; ISTAT HCO3 26.2; ISTAT PCO2 44.2 (35-45); ISTAT PH 7.381 (7.35-7.45); ISTAT PO2 101 (80-105); ISTAT SO2 98; ISTAT TCO2 28
--- NOTE | 2017-05-25 14:41 | Progress Note ---
Assessment and Plan Assessment: 1) Persistent Septic Shock - better still on pressors minimal amount and leukocytosis better- leukocytosis likely from recent splenectomy; etiology - severe C diff colitis. CRP=14 -->2.3. Procal=2.4 -->1.7 2) Severe C diff Colitis: severe-recently exposed to broad spectrum abx. CT abd showed colitis. 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 reactive from colitis versus real 4) LUIS-worsening - now on HD 6) COPD 7) Resp failure Plan: -stop meropenem s/p day 9 -continue IV flagyl -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: Prevnar single dose and 8 weeks later Pneumovax Haemophilus influenza vaccine - one dose Menactra - (meningococcal vaccine) - one dose -close monitoring Thank you Dr Mejia for your consultation, will follow up with you. Winifred Guerrero MD Infectious Diseases Specialist [facility] ([facility]) M [phone] O [phone] Subjective Date of service: 05/25/17 Principal diagnosis: Septic shock,C. diff colitis Interval history: Remains on levophed at 1 mcg/min, sedated, but alert watching TV, intubated Microbiology: Blood cultures: 05/05 neg 05/23 ngtd Urine cultures: 05/05 neg 05/19 billy Stool cultures: C diff 05/04 POSITIVE Resp culture: 05/16 neg Current Antimicrobials: Metronidazole 05/05 meropenem 05/17 Previous Antimicrobials: Zosyn Levaquin Vancomycin PO Metronidazole Vanco rectal 05/07 Ceftriaxone 05/11 Objective - Exam Narrative Exam: General appearance: alert on the vent Eyes: anicteric sclerae HENT: Atraumatic; oropharynx +ETT Neck: Trachea midline; supple, no thyromegaly or lymphadenopathy Lungs: scattered rhonchi CV: rrr Abdomen: Soft, +surgical wound Ileostomy bag and JAVAN drain with small amount of pinkish drainage. Extremities: + peripheral edema Skin: Normal temperature, turgor and texture; no rash, ulcers or subcutaneous nodules Psych: Anxious. Neuro: alert and oriented x 3. Moving all extermities Lines: right SC TLC - Constitutional Vitals: Vital Signs Temp Pulse Resp BP Pulse Ox 98.5 F 90 24 106/52 100 05/25/17 12:00 05/25/17 14:13 05/25/17 14:13 05/25/17 14:13 05/25/17 14:13 Temperature -Last 24 Hours Temperature 98.5 F Temperature 97.8 F Temperature 98.0 F Temperature 97.9 F Temperature 98.1 F Temperature 98.4 F - Labs CBC & Chem 7: 05/25/17 07:08 05/25/17 07:08 Labs: Abnormal lab results 05/24/17 05/24/17 05/24/17 Range/Units 17:27 18:43 23:47 WBC (4.5-11.0) K/mm3 RBC (3.65-5.03) M/mm3 Hgb (10.1-14.3) gm/dl Hct (30.3-42.9) % RDW (13.2-15.2) % Seg Neuts % (Manual) (40.0-70.0) % Lymphocytes % (Manual) (13.4-35.0) % Nucleated RBC % (0.0-0.9) % Seg Neutrophils # Man (1.8-7.7) K/mm3 Lymphocytes # (Manual) (1.2-5.4) K/mm3 BUN (7-17) mg/dL Creatinine (0.7-1.2) mg/dL Glucose (65-100) mg/dL POC Glucose 59 L 139 H 150 H (70-105) Calcium (8.4-10.2) mg/dL 05/25/17 05/25/17 05/25/17 Range/Units 05:37 07:08 07:08 WBC 31.7 H (4.5-11.0) K/mm3 RBC 2.81 L (3.65-5.03) M/mm3 Hgb 8.2 L (10.1-14.3) gm/dl Hct 25.4 L (30.3-42.9) % RDW 16.3 H (13.2-15.2) % Seg Neuts % (Manual) 97.0 H (40.0-70.0) % Lymphocytes % (Manual) 1.5 L (13.4-35.0) % Nucleated RBC % 3.5 H (0.0-0.9) % Seg Neutrophils # Man 30.7 H (1.8-7.7) K/mm3 Lymphocytes # (Manual) 0.5 L (1.2-5.4) K/mm3 BUN 24 H (7-17) mg/dL Creatinine 1.5 H (0.7-1.2) mg/dL Glucose 126 H (65-100) mg/dL POC Glucose 152 H (70-105) Calcium 8.0 L (8.4-10.2) mg/dL 05/25/17 Range/Units 12:06 WBC (4.5-11.0) K/mm3 RBC (3.65-5.03) M/mm3 Hgb (10.1-14.3) gm/dl Hct (30.3-42.9) % RDW (13.2-15.2) % Seg Neuts % (Manual) (40.0-70.0) % Lymphocytes % (Manual) (13.4-35.0) % Nucleated RBC % (0.0-0.9) % Seg Neutrophils # Man (1.8-7.7) K/mm3 Lymphocytes # (Manual) (1.2-5.4) K/mm3 BUN (7-17) mg/dL Creatinine (0.7-1.2) mg/dL Glucose (65-100) mg/dL POC Glucose 178 H (70-105) Calcium (8.4-10.2) mg/dL
--- NOTE | 2017-05-25 15:01 | Progress Note ---
Assessment and Plan Assessment and plan: Patient took 34 minutes of critical care time. This required my direct attention because of increased risk of end organ damage. This included family consultation data review medical therapy. In coordination of care. Total Time Spent with Patient (Minutes): 34 - Patient Problems (1) C. difficile colitis Current Visit: Yes Status: Acute Plan to address problem: Agent with severe C. difficile colitis. Currently on Flagyl. (2) Acute renal insufficiency Current Visit: Yes Status: Acute Plan to address problem: Now chronic renal insufficiency acute on chronic renal insufficiency renal function appears to be improving somewhat holding off dialysis. Nephrology following. (3) Acute respiratory failure Current Visit: Yes Status: Acute Plan to address problem: She remains intubated. COPD exacerbation both hypoxic and hypercapnic respiratory failure wean as tolerated. Would be somewhat more difficult secondary to severe sepsis dehydration and renal failure. (4) S/P laparotomy Current Visit: Yes Status: Acute Plan to address problem: Surgical site appears to be stable. Animal drainage. Artery following. Status post colectomy subtotal colectomy. (5) Acute and chronic respiratory failure ([id number]) Current Visit: No Status: Acute Qualifiers: Respiratory failure complication: hypoxia and hypercapnia Qualified Code(s) : J96.21 - Acute and chronic respiratory failure with hypoxia; J96.22 - Acute and chronic respiratory failure with hypercapnia (6) COPD exacerbation Current Visit: No Status: Acute Plan to address problem: Intubated. Very difficult to extubate at this time. Any trach PEG at some point. (7) Sepsis Current Visit: No Status: Acute Plan to address problem: Severe sepsis improving. Menopenum discontinued today. (8) Anemia Current Visit: Yes Status: Acute (9) Anemia Current Visit: No Status: Chronic Qualifiers: Qualified Code(s): D63.8 - Anemia in other chronic diseases classified elsewhere Plan to address problem: Factorial secondary to chronic disease sepsis and surgery but loss. History Interval history: Patient remains intubated on [facility]vo [place] on TPN severe sepsis nonverbal. Hospitalist Physical - Constitutional Vitals: Temp Pulse Resp BP Pulse Ox 98.5 F 90 24 106/52 100 05/25/17 12:00 05/25/17 14:13 05/25/17 14:13 05/25/17 14:13 05/25/17 14:13 General appearance: Present: mild distress, well-nourished, other (intubatd and vent supported) - EENT ENT: poor dentition, other (poor dentition), no oropharyngeal erythema, no thrush, no ulcerations - Neck Neck: Present: supple, normal ROM. Absent: masses or JVD, cervical LAD - Respiratory Respiratory: right: rhonchi, bilateral: diminished - Extremities Extremities: pulses intact, pulses symmetrical, No edema, normal temperature Extremity abnormal: edema - Abdominal General gastrointestinal: soft, other (surgical bandages minimal drainage. Sport or laparotomy.) - Neurologic Neurologic: other (intubated and sedated.) Results - Labs CBC & Chem 7: 05/25/17 07:08 05/25/17 07:08 Labs: Laboratory Last Values WBC 31.7 K/mm3 (4.5-11.0) H 05/25/17 07:08 RBC 2.81 M/mm3 (3.65-5.03) L 05/25/17 07:08 Hgb 8.2 gm/dl (10.1-14.3) L 05/25/17 07:08 Hct 25.4 % (30.3-42.9) L 05/25/17 07:08 MCV 91 fl (79-97) 05/25/17 07:08 MCH 29 pg (28-32) 05/25/17 07:08 MCHC 32 % (30-34) 05/25/17 07:08 RDW 16.3 % (13.2-15.2) H 05/25/17 07:08 Plt Count 151 K/mm3 (140-440) 05/25/17 07:08 Wallace % (Auto) % (0.0-7.3) 05/22/17 04:50 Eos % (Auto) % (0.0-4.3) 05/22/17 04:50 Wallace # K/mm3 (0.0-0.8) 05/22/17 04:50 Eos # K/mm3 (0.0-0.4) 05/22/17 04:50 Baso # 0.0 K/mm3 (0.0-0.1) 05/22/17 04:50 Add Manual Diff Complete 05/25/17 07:08 Total Counted 200 05/25/17 07:08 Seg Neutrophils % [employer] 05/24/17 07:16 Seg Neuts % (Manual) 97.0 % (40.0-70.0) H 05/25/17 07:08 Band Neutrophils % 1.0 % 05/25/17 07:08 Lymphocytes % (Manual) 1.5 % (13.4-35.0) L 05/25/17 07:08 Reactive Lymphs % (Man) 0 % 05/25/17 07:08 Monocytes % (Manual) 0 % (0.0-7.3) 05/25/17 07:08 Eosinophils % (Manual) 0 % (0.0-4.3) 05/25/17 07:08 Basophils % (Manual) 0 % (0.0-1.8) 05/25/17 07:08 Metamyelocytes % 0.5 % 05/25/17 07:08 Myelocytes % 0 % 05/25/17 07:08 Promyelocytes % 0 % 05/25/17 07:08 Blast Cells % 0 % 05/25/17 07:08 Nucleated RBC % 3.5 % (0.0-0.9) H 05/25/17 07:08 Seg Neutrophils # K/mm3 (1.8-7.7) 05/22/17 04:50 Seg Neutrophils # Man 30.7 K/mm3 (1.8-7.7) H 05/25/17 07:08 Band Neutrophils # 0.3 K/mm3 05/25/17 07:08 Lymphocytes # (Manual) 0.5 K/mm3 (1.2-5.4) L 05/25/17 07:08 Abs React Lymphs (Man) 0.0 K/mm3 05/25/17 07:08 Monocytes # (Manual) 0.0 K/mm3 (0.0-0.8) 05/25/17 07:08 Eosinophils # (Manual) 0.0 K/mm3 (0.0-0.4) 05/25/17 07:08 Basophils # (Manual) 0.0 K/mm3 (0.0-0.1) 05/25/17 07:08 Metamyelocytes # 0.2 K/mm3 05/25/17 07:08 Myelocytes # 0.0 K/mm3 05/25/17 07:08 Promyelocytes # 0.0 K/mm3 05/25/17 07:08 Blast Cells # 0.0 K/mm3 05/25/17 07:08 WBC Morphology Not Reportable 05/25/17 07:08 Hypersegmented Neuts Not Reportable 05/25/17 07:08 Hyposegmented Neuts Not Reportable 05/25/17 07:08 Hypogranular Neuts Not Reportable 05/25/17 07:08 Smudge Cells Not Reportable 05/25/17 07:08 Toxic Granulation Not Reportable 05/25/17 07:08 Toxic Vacuolation Not Reportable 05/25/17 07:08 Dohle Bodies Not Reportable 05/25/17 07:08 Pelger-Huet Anomaly Not Reportable 05/25/17 07:08 Neisha Rods Not Reportable 05/25/17 07:08 Platelet Estimate Consistent w auto 05/25/17 07:08 Clumped Platelets Not Reportable 05/25/17 07:08 Plt Clumps, EDTA Not Reportable 05/25/17 07:08 Large Platelets Not Reportable 05/25/17 07:08 Giant Platelets Not Reportable 05/25/17 07:08 Platelet Satelliting Not Reportable 05/25/17 07:08 Plt Morphology Comment Not Reportable 05/25/17 07:08 RBC Morphology Not Reportable 05/25/17 07:08 Dimorphic RBCs Not Reportable 05/25/17 07:08 Polychromasia 1+ 05/25/17 07:08 Hypochromasia Not Reportable 05/25/17 07:08 Poikilocytosis Rare 05/25/17 07:08 Anisocytosis 1+ 05/25/17 07:08 Microcytosis Not Reportable 05/25/17 07:08 Macrocytosis 2+ 05/25/17 07:08 Spherocytes Not Reportable 05/25/17 07:08 Pappenheimer Bodies Not Reportable 05/25/17 07:08 Sickle Cells Not Reportable 05/25/17 07:08 Target Cells Not Reportable 05/25/17 07:08 Tear Drop Cells Not Reportable 05/25/17 07:08 Ovalocytes 1+ 05/25/17 07:08 Stomatocytes Few 05/21/17 05:20 Helmet Cells Not Reportable 05/25/17 07:08 Frankel-Laflin Bodies Not Reportable 05/25/17 07:08 [place] Rings Not Reportable 05/25/17 07:08 Damián Cells Rare 05/25/17 07:08 Bite Cells Not Reportable 05/25/17 07:08 Crenated Cell Not Reportable 05/25/17 07:08 Elliptocytes Not Reportable 05/25/17 07:08 Acanthocytes (Spur) Not Reportable 05/25/17 07:08 Rouleaux Not Reportable 05/25/17 07:08 Hemoglobin C Crystals Not Reportable 05/25/17 07:08 Schistocytes Not Reportable 05/25/17 07:08 Malaria parasites Not Reportable 05/25/17 07:08 Herve Bodies Not Reportable 05/25/17 07:08 Hem Pathologist Commnt No 05/25/17 07:08 PT 21.3 Sec. (12.2-14.9) H 05/22/17 04:50 INR 1.75 (0.87-1.13) H 05/22/17 04:50 APTT 39.4 Sec. (24.2-36.6) H 05/22/17 04:50 D-Dimer 8441.57 ng/mlDDU (0-234) H 05/04/17 Unknown POC ABG pH 7.381 (7.35-7.45) 05/25/17 14:33 POC ABG pCO2 44.2 (35-45) 05/25/17 14:33 POC ABG pO2 101 (80-105) 05/25/17 14:33 POC ABG HCO3 26.2 05/25/17 14:33 POC ABG Total CO2 28 05/25/17 14:33 POC ABG O2 Sat 98 05/25/17 14:33 POC ABG Base Excess 1 05/25/17 14:33 FiO2 30 % 05/25/17 14:33 Sodium 142 mmol/L (137-145) 05/25/17 07:08 Potassium 3.8 mmol/L (3.6-5.0) 05/25/17 07:08 Chloride 105.8 mmol/L (98-107) 05/25/17 07:08 Carbon Dioxide 26 mmol/L (22-30) 05/25/17 07:08 Anion Gap 14 mmol/L 05/25/17 07:08 BUN 24 mg/dL (7-17) H 05/25/17 07:08 Creatinine 1.5 mg/dL (0.7-1.2) H 05/25/17 07:08 Estimated GFR 42 ml/min 05/25/17 07:08 BUN/Creatinine Ratio 16 % 05/25/17 07:08 Glucose 126 mg/dL (65-100) H 05/25/17 07:08 POC Glucose 178 (70-105) H 05/25/17 12:06 Lactic Acid 0.60 mmol/L (0.7-2.0) L 05/16/17 00:15 Calcium 8.0 mg/dL (8.4-10.2) L 05/25/17 07:08 Ionized Calcium 3.5 mg/dL (4.8-5.6) L 05/05/17 17:45 Phosphorus 3.00 mg/dL (2.5-4.5) 05/25/17 07:08 Magnesium 1.70 mg/dL (1.7-2.3) 05/25/17 07:08 Total Bilirubin < 0.20 mg/dL (0.1-1.2) 05/22/17 04:50 AST 21 units/L (5-40) 05/22/17 04:50 ALT 11 units/L (7-56) 05/22/17 04:50 Alkaline Phosphatase 33 units/L (35-129) L 05/22/17 04:50 Total Creatine Kinase 346 units/L (30-135) H 05/05/17 05:20 CK-MB (CK-2) 8.2 ng/mL (0.0-4.0) H 05/05/17 05:20 CK-MB (CK-2) Rel Index 2.3 (0-4) 05/05/17 05:20 Troponin T 0.027 ng/mL (0.00-0.029) 05/05/17 05:20 C-Reactive Protein 7.10 mg/dL (0.00-1.30) H 05/23/17 16:55 Total Protein 3.6 g/dL (6.3-8.2) L 05/22/17 04:50 Albumin 2.0 g/dL (3.9-5) L 05/22/17 04:50 Albumin/Globulin Ratio 1.3 % 05/22/17 04:50 Triglycerides 149 mg/dL (2-149) 05/04/17 18:55 Cholesterol 185 mg/dL (50-199) 05/04/17 18:55 LDL Cholesterol Direct 103 mg/dL (50-130) 05/04/17 18:55 HDL Cholesterol 53 mg/dL (40-59) 05/04/17 18:55 Cholesterol/HDL Ratio 3.49 % 05/04/17 18:55 TSH 1.780 mlU/mL (0.270-4.200) 05/04/17 18:39 Urine Color Yellow (Yellow) 05/19/17 18:04 Urine Turbidity Clear (Clear) 05/19/17 18:04 Urine pH 5.0 (5.0-7.0) 05/19/17 18:04 Ur Specific [place] 1.014 (1.003-1.030) 05/19/17 18:04 Urine Protein 30 mg/dl mg/dL (Negative) 05/19/17 18:04 Urine Glucose (UA) Neg mg/dL (Negative) 05/19/17 18:04 Urine Ketones Neg mg/dL (Negative) 05/19/17 18:04 Urine Blood Mod (Negative) 05/19/17 18:04 Urine Nitrite Neg (Negative) 05/19/17 18:04 Urine Bilirubin Neg (Negative) 05/19/17 18:04 Urine Urobilinogen < 2.0 mg/dL (<2.0) 05/19/17 18:04 Ur Leukocyte Esterase Lg (Negative) 05/19/17 18:04 Urine WBC (Auto) 78.0 /HPF (0.0-6.0) H 05/19/17 18:04 Urine RBC (Auto) 90.0 /HPF (0.0-6.0) 05/19/17 18:04 U Epithel Cells (Auto) < 1.0 /HPF (0-13.0) 05/19/17 18:04 Urine Bacteria (Auto) 2+ /HPF (Negative) 05/19/17 18:04 Amorphous Crystals Few 05/11/17 17:50 Hyaline Casts 3 /LPF 05/19/17 18:04 Granular Casts 1 /LPF 05/19/17 18:04 Urine Mucus Few /HPF 05/19/17 18:04 Ur Yeast w Hyphae Few /HPF 05/19/17 18:04 Urine Yeast (Budding) 3+ /HPF 05/19/17 18:04 Urine Creatinine 28.0 mg/dL (0.1-20.0) H 05/05/17 Unknown Urine Sodium 129 mmol/L 05/05/17 Unknown Urine Potassium 3.67 mmol/L 05/05/17 Unknown Urine Chloride 115.6 mmolL (110-250) 05/05/17 Unknown Salicylates 0.3 mg/dL (2.8-20.0) L 05/04/17 18:39 Urine Opiates Screen Presumptive negative 05/04/17 02:20 Urine Methadone Screen Presumptive negative 05/04/17 02:20 Acetaminophen < 15.0 ug/mL (10.0-30.0) 05/04/17 18:39 Ur Barbiturates Screen Presumptive negative 05/04/17 02:20 Ur Phencyclidine Scrn Presumptive negative 05/04/17 02:20 Ur Amphetamines Screen Presumptive negative 05/04/17 02:20 U Benzodiazepines Scrn Presumptive negative 05/04/17 02:20 Urine Cocaine Screen Presumptive negative 05/04/17 02:20 U Marijuana (THC) Screen Presumptive negative 05/04/17 02:20 Drugs of Abuse Note Disclamer 05/04/17 02:20 Plasma/Serum Alcohol < 0.01 gm% (0-0.07) 05/04/17 18:39 Hepatitis A IgM Ab Non-reactive (NonReactive) 05/20/17 17:49 Hep Bs Antigen Non-reactive (Negative) 05/20/17 17:49 Hep B Core IgM Ab Non-reactive (NonReactive) 05/20/17 17:49 Hepatitis C Antibody Non-reactive (NonReactive) 05/20/17 17:49 Miscellaneous Test Flexitest 1 H 05/17/17 12:20 Blood Type AB POSITIVE 05/20/17 13:46 Antibody Screen Negative 05/20/17 13:46 Crossmatch See Detail 05/20/17 13:46 - Imaging and Cardiology Chest x-ray: report reviewed, image reviewed Abdominal x-ray: report reviewed CT scan - abdomen: image reviewed CT Scan - head: report reviewed
[2017-05-25] MEDS: ALBURX 25% (ALBUMIN) IV SCH (17:31)
[2017-05-25] MEDS: LASIX IV SCH (18:32)
[2017-05-25] MEDS: ATIVAN IV PRN ×2 (18:36)
[2017-05-25] MEDS ORDERED: TPN ADULT 1,560 ML IV SCH (20:00)
[2017-05-26] MEDS: FLAGYL 500 MG/100 ML 500 MG/100 ML BAG IV SCH ×4 (05:25→23:59)
[2017-05-26] MEDS: LASIX IV SCH (05:25)
[2017-05-26] MEDS: NOVOLOG SUB-Q SCH ×5 (06:30→18:57)
[2017-05-26] MEDS: MORPHINE IV PRN ×3 (06:48→21:44)
[2017-05-26 06:50] LABS: Calcium 8.1 mg/dL (8.4-10.2); Chloride 104.3 mmol/L (98-107); Magnesium 1.7 mg/dL (1.7-2.3); Phosphorous 3.5 mg/dL (2.5-4.5); Potassium 4.3 mmol/L (3.6-5.0)
[2017-05-26 07:29] LABS: Hematocrit 24.5 % (30.3-42.9); Hemoglobin 7.8 gm/dl (10.1-14.3); Mean Corpuscular HGB Conc 32 % (30-34); Mean Corpuscular Hemoglobin 29 pg (28-32); Mean Corpuscular Volume 90 fl (79-97); Platelet Count 175 K/mm3 (140-440); Red Blood Count 2.72 M/mm3 (3.65-5.03); Red Cell Distribution Width 16.5 % (13.2-15.2)
[2017-05-26 07:54] LABS: Albumin 2.3 g/dL (3.9-5); Albumin/Globulin Ratio 1.4 %; Alkaline Phosphatase 41 units/L (35-129); Anion Gap 15 mmol/L; BUN/Creatinine Ratio 23; Blood Urea Nitrogen 34 mg/dL (7-17); Calcium 8.2 mg/dL (8.4-10.2); Carbon Dioxide 27 mmol/L (22-30); Chloride 103.8 mmol/L (98-107); Glucose 145 mg/dL (65-100); Potassium 4.2 mmol/L (3.6-5.0); Sodium 142 mmol/L (137-145)
[2017-05-26 08:02] LABS: Alanine Aminotransferase < 5 units/L (7-56)
[2017-05-26] MEDS: FLORANEX PO SCH (08:38)
[2017-05-26 09:39] LABS: Anisocytosis 2+; Basophils % (Manual) 0 % (0.0-1.8); Blastocytes % (Manual) 0 %; Target Cells Few
[2017-05-26 09:40] LABS: Diff Status Complete; Hypochromasia 1+
[2017-05-26] MEDS: BROVANA NEBU IH SCH ×2 (09:44→21:17)
[2017-05-26] MEDS: PULMICORT IH SCH ×2 (09:44→21:18)
[2017-05-26] MEDS: DUONEB *Not for PRN Use IH SCH ×3 (09:45→21:18)
[2017-05-26 09:55] LABS: ISTAT Base Excess 4; ISTAT HCO3 28.9; ISTAT PCO2 44.1 (35-45); ISTAT PH 7.424 (7.35-7.45); ISTAT PO2 89 (80-105); ISTAT SO2 97; ISTAT TCO2 30
--- NOTE | 2017-05-26 10:15 | Progress Note ---
Assessment and Plan 61 y/o female with severe C. Diff colitis, sepsis with shock and now encephalopathy, likely metabolic requiring mechanical ventilation. 1. Will attempt extubation today 2. Abx therapy as per ID 3. Remains in shock, hemoglobin is less than 10, Crit less than 30, could consider transfusion to help with pressor requirements. Wean pressors for MAPs >65 4. Overall prognosis remains guarded to poor s/p subtotal colectomy with ileostomy with NG tube in place. CCT 31 Subjective Date of service: 05/26/17 Principal diagnosis: Septic shock,C. diff colitis Interval history: No acute events overnight. Son at bedside. Patient is awake and alert. On PSV 03/27 Objective Vital Signs - 12hr 05/25/17 05/25/17 05/25/17 22:15 22:30 22:45 Temperature Pulse Rate 93 H 82 94 H Pulse Rate [ Anterior Bilateral Throughout] Pulse Rate [ From Monitor] Respiratory 24 24 24 Rate Respiratory Rate [Anterior Bilateral Throughout] Blood Pressure 117/61 117/59 114/63 O2 Sat by Pulse 100 100 Oximetry 05/25/17 05/25/17 05/25/17 23:00 23:15 23:30 Temperature Pulse Rate 94 H 86 79 Pulse Rate [ Anterior Bilateral Throughout] Pulse Rate [ From Monitor] Respiratory 24 22 21 Rate Respiratory Rate [Anterior Bilateral Throughout] Blood Pressure 108/58 105/53 98/51 O2 Sat by Pulse 100 98 Oximetry 05/25/17 05/25/17 05/26/17 23:33 23:45 00:00 Temperature 98.8 F Pulse Rate 82 95 H 80 Pulse Rate [ Anterior Bilateral Throughout] Pulse Rate [ 98 H From Monitor] Respiratory 22 20 Rate Respiratory Rate [Anterior Bilateral Throughout] Blood Pressure 98/51 114/60 104/53 O2 Sat by Pulse 96 96 100 Oximetry 05/26/17 05/26/17 05/26/17 00:15 00:30 00:45 Temperature Pulse Rate 86 77 82 Pulse Rate [ Anterior Bilateral Throughout] Pulse Rate [ From Monitor] Respiratory 23 17 24 Rate Respiratory Rate [Anterior Bilateral Throughout] Blood Pressure 107/53 100/51 92/45 O2 Sat by Pulse 100 Oximetry 05/26/17 05/26/17 05/26/17 01:00 01:15 01:30 Temperature Pulse Rate 76 80 79 Pulse Rate [ Anterior Bilateral Throughout] Pulse Rate [ From Monitor] Respiratory 20 22 24 Rate Respiratory Rate [Anterior Bilateral Throughout] Blood Pressure 109/54 115/58 110/54 O2 Sat by Pulse 100 97 100 Oximetry 05/26/17 05/26/17 05/26/17 01:45 02:00 02:15 Temperature Pulse Rate 92 H 90 96 H Pulse Rate [ Anterior Bilateral Throughout] Pulse Rate [ From Monitor] Respiratory 21 21 22 Rate Respiratory Rate [Anterior Bilateral Throughout] Blood Pressure 105/58 112/69 92/65 O2 Sat by Pulse 99 99 99 Oximetry 05/26/17 05/26/17 05/26/17 02:30 02:45 03:01 Temperature Pulse Rate 90 90 91 H Pulse Rate [ Anterior Bilateral Throughout] Pulse Rate [ From Monitor] Respiratory 23 21 Rate Respiratory Rate [Anterior Bilateral Throughout] Blood Pressure 102/56 95/62 95/62 O2 Sat by Pulse 99 100 100 Oximetry 05/26/17 05/26/17 05/26/17 03:15 03:21 03:31 Temperature Pulse Rate 116 H 112 H 105 H Pulse Rate [ Anterior Bilateral Throughout] Pulse Rate [ From Monitor] Respiratory 25 H 24 Rate Respiratory Rate [Anterior Bilateral Throughout] Blood Pressure 95/62 95/62 O2 Sat by Pulse 100 98 95 Oximetry 05/26/17 05/26/17 05/26/17 03:45 04:00 04:01 Temperature 98.3 F Pulse Rate 101 H 104 H Pulse Rate [ Anterior Bilateral Throughout] Pulse Rate [ 86 From Monitor] Respiratory 19 21 Rate Respiratory Rate [Anterior Bilateral Throughout] Blood Pressure 95/62 95/62 O2 Sat by Pulse 99 100 95 Oximetry 05/26/17 05/26/17 05/26/17 04:15 04:31 04:45 Temperature Pulse Rate 91 H 84 103 H Pulse Rate [ Anterior Bilateral Throughout] Pulse Rate [ From Monitor] Respiratory 24 21 18 Rate Respiratory Rate [Anterior Bilateral Throughout] Blood Pressure 95/62 95/62 95/62 O2 Sat by Pulse 98 99 Oximetry 05/26/17 05/26/17 05/26/17 05:01 05:15 05:30 Temperature Pulse Rate 87 82 95 H Pulse Rate [ Anterior Bilateral Throughout] Pulse Rate [ From Monitor] Respiratory 22 16 16 Rate Respiratory Rate [Anterior Bilateral Throughout] Blood Pressure 102/61 96/51 96/46 O2 Sat by Pulse 96 98 Oximetry 05/26/17 05/26/17 05/26/17 05:45 06:00 06:15 Temperature Pulse Rate 89 84 83 Pulse Rate [ Anterior Bilateral Throughout] Pulse Rate [ From Monitor] Respiratory 18 19 21 Rate Respiratory Rate [Anterior Bilateral Throughout] Blood Pressure 86/43 86/43 111/56 O2 Sat by Pulse 100 100 Oximetry 05/26/17 05/26/17 05/26/17 06:30 06:45 07:00 Temperature Pulse Rate 83 82 80 Pulse Rate [ Anterior Bilateral Throughout] Pulse Rate [ From Monitor] Respiratory 21 16 24 Rate Respiratory Rate [Anterior Bilateral Throughout] Blood Pressure 108/59 113/53 128/64 O2 Sat by Pulse 99 99 98 Oximetry 05/26/17 05/26/17 05/26/17 07:15 07:23 07:30 Temperature Pulse Rate 89 83 85 Pulse Rate [ Anterior Bilateral Throughout] Pulse Rate [ From Monitor] Respiratory 25 H 23 Rate Respiratory Rate [Anterior Bilateral Throughout] Blood Pressure 128/64 113/53 107/58 O2 Sat by Pulse 99 98 99 Oximetry 05/26/17 05/26/17 05/26/17 07:45 08:00 08:15 Temperature 97.4 F L Pulse Rate 82 82 88 Pulse Rate [ Anterior Bilateral Throughout] Pulse Rate [ 82 From Monitor] Respiratory 25 H 24 24 Rate Respiratory Rate [Anterior Bilateral Throughout] Blood Pressure 101/55 107/52 106/53 O2 Sat by Pulse 100 99 100 Oximetry 05/26/17 05/26/17 05/26/17 08:30 09:31 09:44 Temperature Pulse Rate 86 102 H Pulse Rate [ 87 Anterior Bilateral Throughout] Pulse Rate [ From Monitor] Respiratory 27 H 24 Rate Respiratory 19 Rate [Anterior Bilateral Throughout] Blood Pressure 105/53 96/53 O2 Sat by Pulse 99 Oximetry 05/26/17 09:57 Temperature Pulse Rate Pulse Rate [ 93 H Anterior Bilateral Throughout] Pulse Rate [ From Monitor] Respiratory Rate Respiratory 26 H Rate [Anterior Bilateral Throughout] Blood Pressure O2 Sat by Pulse Oximetry Constitutional: no acute distress, alert, other (critically ill on vent) Eyes: non-icteric ENT: oropharynx moist Neck: supple Effort: normal Ascultation: Bilateral: clear (anterior), diminished breath sounds Percussion: Bilateral: not dull Cardiovascular: regular rate and rhythm (no mrg) Gastrointestinal: hypoactive bowel sounds, tender, other (distended, ostomy looks good with some liquid stool in bag, brown + old blood) Integumentary: normal Extremities: no cyanosis, pink and warm, anasarca (1+ bilateral LE edema) Neurologic: normal mental status, non-focal exam, pupils equal and round, CN II- XII normal Psychiatric: mood appropriate, affect normal CBC and BMP: 05/26/17 07:15 05/26/17 07:15 ABG, PT/INR, D-dimer: ABG POC ABG pH 7.424 (7.35-7.45) 05/26/17 09:49 POC ABG pCO2 44.1 (35-45) 05/26/17 09:49 POC ABG pO2 89 (80-105) 05/26/17 09:49 POC ABG HCO3 28.9 05/26/17 09:49 POC ABG Total CO2 30 05/26/17 09:49 POC ABG O2 Sat 97 05/26/17 09:49 PT/INR, D-dimer PT 21.3 Sec. (12.2-14.9) H 05/22/17 04:50 INR 1.75 (0.87-1.13) H 05/22/17 04:50 D-Dimer 8441.57 ng/mlDDU (0-234) H 05/04/17 Unknown Abnormal lab findings: Abnormal Labs 05/04/17 05/04/17 05/04/17 02:20 18:39 18:39 WBC 24.3 H RBC Hgb Hct RDW 16.4 H Plt Count 658 H Seg Neuts % (Manual) 94.5 H Lymphocytes % (Manual) 2.5 L Monocytes % (Manual) Nucleated RBC % Seg Neutrophils # Man 23.0 H Lymphocytes # (Manual) 0.6 L Monocytes # (Manual) Eosinophils # (Manual) PT INR APTT D-Dimer POC ABG pH POC ABG pCO2 POC ABG pO2 Sodium Potassium 3.2 L Chloride 92.6 L Carbon Dioxide 14 L BUN 66 H Creatinine 6.5 H Glucose POC Glucose Lactic Acid Calcium 7.5 L Ionized Calcium Phosphorus Magnesium ALT 5 L Alkaline Phosphatase 32 L Total Creatine Kinase CK-MB (CK-2) Troponin T C-Reactive Protein Total Protein 5.4 L Albumin 3.0 L Urine WBC (Auto) 100.0 H Urine Creatinine Salicylates Miscellaneous Test Crossmatch 11/06/0805/04/17 05/04/17 18:39 18:55 Unknown WBC RBC Hgb Hct RDW Plt Count Seg Neuts % (Manual) Lymphocytes % (Manual) Monocytes % (Manual) Nucleated RBC % Seg Neutrophils # Man Lymphocytes # (Manual) Monocytes # (Manual) Eosinophils # (Manual) PT INR APTT D-Dimer POC ABG pH POC ABG pCO2 POC ABG pO2 Sodium Potassium Chloride Carbon Dioxide BUN Creatinine Glucose POC Glucose Lactic Acid 0.40 L Calcium Ionized Calcium Phosphorus Magnesium ALT Alkaline Phosphatase Total Creatine Kinase 155 H CK-MB (CK-2) 4.5 H Troponin T 0.033 H C-Reactive Protein Total Protein Albumin Urine WBC (Auto) Urine Creatinine Salicylates 0.3 L Miscellaneous Test Crossmatch 05/04/17 05/04/17 05/04/17 Unknown Unknown Unknown WBC RBC Hgb Hct RDW Plt Count Seg Neuts % (Manual) Lymphocytes % (Manual) Monocytes % (Manual) Nucleated RBC % Seg Neutrophils # Man Lymphocytes # (Manual) Monocytes # (Manual) Eosinophils # (Manual) PT INR APTT D-Dimer 8441.57 H POC ABG pH POC ABG pCO2 POC ABG pO2 Sodium Potassium Chloride Carbon Dioxide BUN Creatinine Glucose POC Glucose Lactic Acid 0.40 L Calcium Ionized Calcium Phosphorus Magnesium ALT Alkaline Phosphatase Total Creatine Kinase 246 H CK-MB (CK-2) 6.2 H Troponin T C-Reactive Protein Total Protein Albumin Urine WBC (Auto) Urine Creatinine Salicylates Miscellaneous Test Crossmatch 05/05/17 05/05/17 05/05/17 05:20 05:20 05:20 WBC 33.9 H RBC 3.39 L Hgb 9.3 L Hct RDW 16.7 H Plt Count 712 H Seg Neuts % (Manual) 91.0 H Lymphocytes % (Manual) 1.0 L Monocytes % (Manual) Nucleated RBC % Seg Neutrophils # Man 30.8 H Lymphocytes # (Manual) 0.3 L Monocytes # (Manual) 1.5 H Eosinophils # (Manual) PT INR APTT D-Dimer POC ABG pH POC ABG pCO2 POC ABG pO2 Sodium Potassium Chloride Carbon Dioxide 9 L* BUN 53 H Creatinine 5.4 H Glucose POC Glucose Lactic Acid Calcium 6.1 L D Ionized Calcium Phosphorus Magnesium ALT Alkaline Phosphatase Total Creatine Kinase 346 H CK-MB (CK-2) 8.2 H Troponin T C-Reactive Protein Total Protein Albumin Urine WBC (Auto) Urine Creatinine Salicylates Miscellaneous Test Crossmatch 05/05/17 05/05/17 05/05/17 10:43 17:45 17:45 WBC RBC Hgb 8.8 L Hct RDW Plt Count Seg Neuts % (Manual) Lymphocytes % (Manual) Monocytes % (Manual) Nucleated RBC % Seg Neutrophils # Man Lymphocytes # (Manual) Monocytes # (Manual) Eosinophils # (Manual) PT INR APTT D-Dimer POC ABG pH 6.872 L POC ABG pCO2 POC ABG pO2 120 H Sodium Potassium Chloride Carbon Dioxide BUN Creatinine Glucose POC Glucose Lactic Acid Calcium Ionized Calcium 3.5 L Phosphorus Magnesium ALT Alkaline Phosphatase Total Creatine Kinase CK-MB (CK-2) Troponin T C-Reactive Protein Total Protein Albumin Urine WBC (Auto) Urine Creatinine Salicylates Miscellaneous Test Crossmatch 05/05/17 05/05/17 05/05/17 17:45 20:58 Unknown WBC RBC Hgb 9.0 L Hct 29.8 L RDW Plt Count Seg Neuts % (Manual) Lymphocytes % (Manual) Monocytes % (Manual) Nucleated RBC % Seg Neutrophils # Man Lymphocytes # (Manual) Monocytes # (Manual) Eosinophils # (Manual) PT INR APTT D-Dimer POC ABG pH POC ABG pCO2 POC ABG pO2 Sodium Potassium Chloride Carbon Dioxide BUN Creatinine Glucose POC Glucose Lactic Acid Calcium Ionized Calcium Phosphorus 6.20 H Magnesium 1.20 L ALT Alkaline Phosphatase Total Creatine Kinase CK-MB (CK-2) Troponin T C-Reactive Protein Total Protein Albumin Urine WBC (Auto) Urine Creatinine 28.0 H Salicylates Miscellaneous Test Crossmatch 05/06/17 05/06/17 05/06/17 05:09 05:23 07:55 WBC RBC Hgb Hct RDW Plt Count Seg Neuts % (Manual) Lymphocytes % (Manual) Monocytes % (Manual) Nucleated RBC % Seg Neutrophils # Man Lymphocytes # (Manual) Monocytes # (Manual) Eosinophils # (Manual) PT INR APTT D-Dimer POC ABG pH 7.029 L 7.060 L POC ABG pCO2 54.8 H 48.6 H POC ABG pO2 74 L 43 L Sodium Potassium 3.5 L Chloride Carbon Dioxide 18 L D BUN 44 H Creatinine 3.5 H Glucose 252 H POC Glucose Lactic Acid Calcium 5.8 L* Ionized Calcium Phosphorus Magnesium ALT Alkaline Phosphatase Total Creatine Kinase CK-MB (CK-2) Troponin T C-Reactive Protein Total Protein Albumin Urine WBC (Auto) Urine Creatinine Salicylates Miscellaneous Test Crossmatch 05/06/17 05/06/17 05/06/17 07:55 15:28 17:30 WBC RBC Hgb Hct RDW Plt Count Seg Neuts % (Manual) Lymphocytes % (Manual) Monocytes % (Manual) Nucleated RBC % Seg Neutrophils # Man Lymphocytes # (Manual) Monocytes # (Manual) Eosinophils # (Manual) PT INR APTT D-Dimer POC ABG pH 7.066 L POC ABG pCO2 80.9 H POC ABG pO2 65 L Sodium Potassium Chloride Carbon Dioxide BUN Creatinine Glucose POC Glucose Lactic Acid Calcium Ionized Calcium Phosphorus Magnesium ALT Alkaline Phosphatase Total Creatine Kinase CK-MB (CK-2) Troponin T C-Reactive Protein 14.50 H Total Protein Albumin Urine WBC (Auto) Urine Creatinine Salicylates Miscellaneous Test Flexitest 1 H Crossmatch 05/06/17 05/06/17 05/07/17 17:30 Unknown 10:18 WBC 39.2 H 32.9 H RBC 3.27 L Hgb 9.3 L Hct 30.2 L RDW 16.4 H 17.0 H Plt Count 645 H 467 H Seg Neuts % (Manual) Lymphocytes % (Manual) 11.0 L Monocytes % (Manual) Nucleated RBC % Seg Neutrophils # Man 21.2 H Lymphocytes # (Manual) Monocytes # (Manual) 2.0 H Eosinophils # (Manual) PT INR APTT D-Dimer POC ABG pH POC ABG pCO2 POC ABG pO2 Sodium Potassium 3.4 L Chloride Carbon Dioxide BUN 41 H Creatinine 3.2 H Glucose 265 H POC Glucose Lactic Acid Calcium 6.7 L D Ionized Calcium Phosphorus Magnesium ALT Alkaline Phosphatase Total Creatine Kinase CK-MB (CK-2) Troponin T C-Reactive Protein Total Protein Albumin Urine WBC (Auto) Urine Creatinine Salicylates Miscellaneous Test Crossmatch 05/07/17 05/07/17 05/08/17 11:32 12:36 05:45 WBC 31.1 H RBC 3.41 L Hgb 9.8 L Hct RDW 16.9 H Plt Count Seg Neuts % (Manual) 96.0 H Lymphocytes % (Manual) 1.0 L Monocytes % (Manual) Nucleated RBC % Seg Neutrophils # Man 29.9 H Lymphocytes # (Manual) 0.3 L Monocytes # (Manual) Eosinophils # (Manual) PT INR APTT D-Dimer POC ABG pH 7.290 L POC ABG pCO2 48.3 H POC ABG pO2 51 L Sodium 146 H Potassium 3.1 L Chloride 109.2 H Carbon Dioxide 20 L BUN 38 H Creatinine 2.7 H Glucose 213 H POC Glucose Lactic Acid Calcium 6.6 L Ionized Calcium Phosphorus Magnesium ALT Alkaline Phosphatase Total Creatine Kinase CK-MB (CK-2) Troponin T C-Reactive Protein Total Protein Albumin Urine WBC (Auto) Urine Creatinine Salicylates Miscellaneous Test Crossmatch 05/08/17 05/08/17 05/09/17 05:45 18:55 04:05 WBC 26.1 H RBC Hgb Hct RDW 17.6 H Plt Count Seg Neuts % (Manual) Lymphocytes % (Manual) 5.0 L Monocytes % (Manual) Nucleated RBC % Seg Neutrophils # Man 16.7 H Lymphocytes # (Manual) Monocytes # (Manual) Eosinophils # (Manual) PT INR APTT D-Dimer POC ABG pH POC ABG pCO2 POC ABG pO2 Sodium 150 H Potassium Chloride 115.4 H 112.2 H Carbon Dioxide 20 L 18 L BUN 39 H 45 H Creatinine 2.4 H 2.3 H Glucose 160 H 219 H POC Glucose Lactic Acid Calcium 6.6 L 7.2 L Ionized Calcium Phosphorus Magnesium 1.40 L ALT 6 L Alkaline Phosphatase Total Creatine Kinase CK-MB (CK-2) Troponin T C-Reactive Protein Total Protein 4.1 L D Albumin 2.0 L Urine WBC (Auto) Urine Creatinine Salicylates Miscellaneous Test Crossmatch 05/09/17 05/09/17 05/09/17 04:05 05:15 05:45 WBC RBC Hgb Hct RDW Plt Count Seg Neuts % (Manual) Lymphocytes % (Manual) Monocytes % (Manual) Nucleated RBC % Seg Neutrophils # Man Lymphocytes # (Manual) Monocytes # (Manual) Eosinophils # (Manual) PT INR APTT D-Dimer POC ABG pH POC ABG pCO2 POC ABG pO2 Sodium 130 L D Potassium 3.4 L D Chloride 94.6 L Carbon Dioxide 19 L BUN 39 H Creatinine 2.1 H Glucose 549 H* 189 H POC Glucose 181 H Lactic Acid Calcium 6.6 L Ionized Calcium Phosphorus Magnesium ALT 6 L Alkaline Phosphatase 31 L Total Creatine Kinase CK-MB (CK-2) Troponin T C-Reactive Protein Total Protein 3.5 L Albumin 2.0 L Urine WBC (Auto) Urine Creatinine Salicylates Miscellaneous Test Crossmatch 05/09/17 05/09/17 05/09/17 08:03 11:08 16:15 WBC RBC Hgb Hct RDW Plt Count Seg Neuts % (Manual) Lymphocytes % (Manual) Monocytes % (Manual) Nucleated RBC % Seg Neutrophils # Man Lymphocytes # (Manual) Monocytes # (Manual) Eosinophils # (Manual) PT INR APTT D-Dimer POC ABG pH POC ABG pCO2 POC ABG pO2 Sodium Potassium Chloride 107.8 H Carbon Dioxide 21 L BUN 43 H Creatinine 2.4 H Glucose 195 H POC Glucose 299 H 111 H Lactic Acid Calcium 7.1 L Ionized Calcium Phosphorus Magnesium ALT Alkaline Phosphatase Total Creatine Kinase CK-MB (CK-2) Troponin T C-Reactive Protein Total Protein 3.9 L Albumin 2.3 L Urine WBC (Auto) Urine Creatinine Salicylates Miscellaneous Test Crossmatch 05/09/17 05/10/17 05/10/17 23:05 05:00 05:00 WBC 20.9 H RBC 3.53 L Hgb Hct RDW 17.3 H Plt Count Seg Neuts % (Manual) 72.0 H Lymphocytes % (Manual) 8.0 L Monocytes % (Manual) Nucleated RBC % Seg Neutrophils # Man 15.0 H Lymphocytes # (Manual) Monocytes # (Manual) Eosinophils # (Manual) PT INR APTT D-Dimer POC ABG pH POC ABG pCO2 POC ABG pO2 Sodium 135 L D Potassium 3.2 L Chloride Carbon Dioxide 21 L BUN 45 H Creatinine 2.2 H Glucose 308 H POC Glucose 336 H Lactic Acid Calcium 7.1 L Ionized Calcium Phosphorus Magnesium ALT 5 L Alkaline Phosphatase 30 L Total Creatine Kinase CK-MB (CK-2) Troponin T C-Reactive Protein Total Protein 3.8 L Albumin 2.1 L Urine WBC (Auto) Urine Creatinine Salicylates Miscellaneous Test Crossmatch 05/10/17 05/10/17 05/10/17 07:28 11:36 16:03 WBC RBC Hgb Hct RDW Plt Count Seg Neuts % (Manual) Lymphocytes % (Manual) Monocytes % (Manual) Nucleated RBC % Seg Neutrophils # Man Lymphocytes # (Manual) Monocytes # (Manual) Eosinophils # (Manual) PT INR APTT D-Dimer POC ABG pH POC ABG pCO2 POC ABG pO2 Sodium Potassium Chloride Carbon Dioxide BUN Creatinine Glucose POC Glucose 154 H 184 H 162 H Lactic Acid Calcium Ionized Calcium Phosphorus Magnesium ALT Alkaline Phosphatase Total Creatine Kinase CK-MB (CK-2) Troponin T C-Reactive Protein Total Protein Albumin Urine WBC (Auto) Urine Creatinine Salicylates Miscellaneous Test Crossmatch 05/10/17 05/11/17 05/11/17 21:13 06:50 06:50 WBC 24.4 H RBC Hgb Hct RDW 17.4 H Plt Count Seg Neuts % (Manual) Lymphocytes % (Manual) 5.0 L Monocytes % (Manual) Nucleated RBC % Seg Neutrophils # Man 16.3 H Lymphocytes # (Manual) Monocytes # (Manual) 1.0 H Eosinophils # (Manual) PT INR APTT D-Dimer POC ABG pH POC ABG pCO2 POC ABG pO2 Sodium Potassium 3.4 L Chloride Carbon Dioxide BUN 50 H Creatinine 2.8 H Glucose 131 H POC Glucose 188 H Lactic Acid Calcium 7.6 L Ionized Calcium Phosphorus Magnesium ALT < 5 L Alkaline Phosphatase 25 L Total Creatine Kinase CK-MB (CK-2) Troponin T C-Reactive Protein Total Protein 3.6 L Albumin 2.0 L Urine WBC (Auto) Urine Creatinine Salicylates Miscellaneous Test Crossmatch 05/11/17 05/11/17 05/11/17 09:33 11:45 15:46 WBC RBC Hgb Hct RDW Plt Count Seg Neuts % (Manual) Lymphocytes % (Manual) Monocytes % (Manual) Nucleated RBC % Seg Neutrophils # Man Lymphocytes # (Manual) Monocytes # (Manual) Eosinophils # (Manual) PT INR APTT D-Dimer POC ABG pH POC ABG pCO2 POC ABG pO2 Sodium Potassium Chloride Carbon Dioxide BUN Creatinine Glucose POC Glucose 140 H 157 H 137 H Lactic Acid Calcium Ionized Calcium Phosphorus Magnesium ALT Alkaline Phosphatase Total Creatine Kinase CK-MB (CK-2) Troponin T C-Reactive Protein Total Protein Albumin Urine WBC (Auto) Urine Creatinine Salicylates Miscellaneous Test Crossmatch 05/11/17 05/11/17 05/12/17 17:50 20:58 05:00 WBC 23.1 H RBC 3.59 L Hgb Hct RDW 17.1 H Plt Count Seg Neuts % (Manual) 94.0 H Lymphocytes % (Manual) 0 L Monocytes % (Manual) Nucleated RBC % Seg Neutrophils # Man 21.7 H Lymphocytes # (Manual) 0.0 L Monocytes # (Manual) Eosinophils # (Manual) PT INR APTT D-Dimer POC ABG pH POC ABG pCO2 POC ABG pO2 Sodium Potassium Chloride Carbon Dioxide BUN Creatinine Glucose POC Glucose 155 H Lactic Acid Calcium Ionized Calcium Phosphorus Magnesium ALT Alkaline Phosphatase Total Creatine Kinase CK-MB (CK-2) Troponin T C-Reactive Protein Total Protein Albumin Urine WBC (Auto) 27.0 H Urine Creatinine Salicylates Miscellaneous Test Crossmatch 05/12/17 05/12/17 05/12/17 05:00 08:28 11:28 WBC RBC Hgb Hct RDW Plt Count Seg Neuts % (Manual) Lymphocytes % (Manual) Monocytes % (Manual) Nucleated RBC % Seg Neutrophils # Man Lymphocytes # (Manual) Monocytes # (Manual) Eosinophils # (Manual) PT INR APTT D-Dimer POC ABG pH POC ABG pCO2 POC ABG pO2 Sodium Potassium Chloride 111.7 H Carbon Dioxide BUN 53 H Creatinine 2.8 H Glucose 102 H POC Glucose 130 H 171 H Lactic Acid Calcium 6.9 L Ionized Calcium Phosphorus Magnesium ALT < 5 L Alkaline Phosphatase 25 L Total Creatine Kinase CK-MB (CK-2) Troponin T C-Reactive Protein Total Protein 3.3 L Albumin 1.7 L Urine WBC (Auto) Urine Creatinine Salicylates Miscellaneous Test Crossmatch 05/12/17 05/13/17 05/13/17 22:20 06:54 06:54 WBC 20.8 H RBC 3.17 L Hgb 9.2 L Hct 28.9 L RDW 17.7 H Plt Count Seg Neuts % (Manual) 93.0 H Lymphocytes % (Manual) 1.0 L Monocytes % (Manual) Nucleated RBC % Seg Neutrophils # Man 19.3 H Lymphocytes # (Manual) 0.2 L Monocytes # (Manual) Eosinophils # (Manual) 0.6 H PT INR APTT D-Dimer POC ABG pH POC ABG pCO2 POC ABG pO2 Sodium Potassium 3.3 L Chloride 110.0 H Carbon Dioxide 20 L BUN 48 H Creatinine 2.8 H Glucose 119 H POC Glucose 179 H Lactic Acid Calcium 7.4 L Ionized Calcium Phosphorus Magnesium ALT Alkaline Phosphatase Total Creatine Kinase CK-MB (CK-2) Troponin T C-Reactive Protein Total Protein Albumin Urine WBC (Auto) Urine Creatinine Salicylates Miscellaneous Test Crossmatch 05/13/17 05/13/17 05/13/17 07:35 12:52 23:32 WBC RBC Hgb Hct RDW Plt Count Seg Neuts % (Manual) Lymphocytes % (Manual) Monocytes % (Manual) Nucleated RBC % Seg Neutrophils # Man Lymphocytes # (Manual) Monocytes # (Manual) Eosinophils # (Manual) PT INR APTT D-Dimer POC ABG pH POC ABG pCO2 POC ABG pO2 Sodium Potassium Chloride Carbon Dioxide BUN Creatinine Glucose POC Glucose 139 H 159 H 179 H Lactic Acid Calcium Ionized Calcium Phosphorus Magnesium ALT Alkaline Phosphatase Total Creatine Kinase CK-MB (CK-2) Troponin T C-Reactive Protein Total Protein Albumin Urine WBC (Auto) Urine Creatinine Salicylates Miscellaneous Test Crossmatch 05/14/17 05/14/17 05/14/17 04:00 05:00 07:30 WBC 19.3 H RBC 3.16 L Hgb 9.1 L Hct 29.1 L RDW 17.9 H Plt Count Seg Neuts % (Manual) 87.0 H Lymphocytes % (Manual) 2.0 L Monocytes % (Manual) Nucleated RBC % Seg Neutrophils # Man 16.8 H Lymphocytes # (Manual) 0.4 L Monocytes # (Manual) 1.0 H Eosinophils # (Manual) 0.6 H PT INR APTT D-Dimer POC ABG pH POC ABG pCO2 POC ABG pO2 Sodium 146 H Potassium Chloride 114.7 H Carbon Dioxide 19 L BUN 43 H Creatinine 2.5 H Glucose POC Glucose 110 H Lactic Acid Calcium 7.5 L Ionized Calcium Phosphorus Magnesium ALT Alkaline Phosphatase Total Creatine Kinase CK-MB (CK-2) Troponin T C-Reactive Protein Total Protein Albumin Urine WBC (Auto) Urine Creatinine Salicylates Miscellaneous Test Crossmatch 05/14/17 05/14/17 05/14/17 11:43 15:44 20:10 WBC RBC Hgb Hct RDW Plt Count Seg Neuts % (Manual) Lymphocytes % (Manual) Monocytes % (Manual) Nucleated RBC % Seg Neutrophils # Man Lymphocytes # (Manual) Monocytes # (Manual) Eosinophils # (Manual) PT INR APTT D-Dimer POC ABG pH POC ABG pCO2 POC ABG pO2 Sodium Potassium Chloride Carbon Dioxide BUN Creatinine Glucose POC Glucose 169 H 201 H 223 H Lactic Acid Calcium Ionized Calcium Phosphorus Magnesium ALT Alkaline Phosphatase Total Creatine Kinase CK-MB (CK-2) Troponin T C-Reactive Protein Total Protein Albumin Urine WBC (Auto) Urine Creatinine Salicylates Miscellaneous Test Crossmatch 05/15/17 05/15/17 05/15/17 06:10 08:50 12:57 WBC RBC Hgb Hct RDW Plt Count Seg Neuts % (Manual) Lymphocytes % (Manual) Monocytes % (Manual) Nucleated RBC % Seg Neutrophils # Man Lymphocytes # (Manual) Monocytes # (Manual) Eosinophils # (Manual) PT INR APTT D-Dimer POC ABG pH POC ABG pCO2 POC ABG pO2 Sodium Potassium Chloride 113.6 H Carbon Dioxide 18 L BUN 43 H Creatinine 2.7 H Glucose 123 H POC Glucose 204 H 127 H Lactic Acid Calcium 7.2 L Ionized Calcium Phosphorus Magnesium ALT Alkaline Phosphatase Total Creatine Kinase CK-MB (CK-2) Troponin T C-Reactive Protein Total Protein Albumin Urine WBC (Auto) Urine Creatinine Salicylates Miscellaneous Test Crossmatch 05/15/17 05/15/17 05/15/17 17:43 21:29 23:51 WBC RBC Hgb Hct RDW Plt Count Seg Neuts % (Manual) Lymphocytes % (Manual) Monocytes % (Manual) Nucleated RBC % Seg Neutrophils # Man Lymphocytes # (Manual) Monocytes # (Manual) Eosinophils # (Manual) PT INR APTT D-Dimer POC ABG pH 6.983 L POC ABG pCO2 67.5 H POC ABG pO2 Sodium Potassium Chloride Carbon Dioxide BUN Creatinine Glucose POC Glucose 121 H 129 H Lactic Acid Calcium Ionized Calcium Phosphorus Magnesium ALT Alkaline Phosphatase Total Creatine Kinase CK-MB (CK-2) Troponin T C-Reactive Protein Total Protein Albumin Urine WBC (Auto) Urine Creatinine Salicylates Miscellaneous Test Crossmatch 05/16/17 05/16/17 05/16/17 00:15 06:00 07:46 WBC RBC Hgb Hct RDW Plt Count Seg Neuts % (Manual) Lymphocytes % (Manual) Monocytes % (Manual) Nucleated RBC % Seg Neutrophils # Man Lymphocytes # (Manual) Monocytes # (Manual) Eosinophils # (Manual) PT INR APTT D-Dimer POC ABG pH POC ABG pCO2 POC ABG pO2 Sodium Potassium Chloride 114.2 H Carbon Dioxide 17 L BUN 44 H Creatinine 3.3 H Glucose 118 H POC Glucose 135 H Lactic Acid 0.60 L Calcium 7.5 L Ionized Calcium Phosphorus Magnesium ALT Alkaline Phosphatase Total Creatine Kinase CK-MB (CK-2) Troponin T C-Reactive Protein Total Protein Albumin Urine WBC (Auto) Urine Creatinine Salicylates Miscellaneous Test Crossmatch 05/16/17 05/16/17 05/16/17 09:38 10:20 10:20 WBC 18.6 H RBC 3.08 L Hgb 9.0 L Hct 29.0 L RDW 18.8 H Plt Count Seg Neuts % (Manual) Lymphocytes % (Manual) 5.0 L Monocytes % (Manual) Nucleated RBC % Seg Neutrophils # Man 11.3 H Lymphocytes # (Manual) 0.9 L Monocytes # (Manual) 1.3 H Eosinophils # (Manual) PT INR APTT D-Dimer POC ABG pH 7.081 L POC ABG pCO2 46.3 H POC ABG pO2 107 H Sodium Potassium Chloride 114.9 H Carbon Dioxide 14 L BUN 44 H Creatinine 3.0 H Glucose 115 H POC Glucose Lactic Acid Calcium 7.3 L Ionized Calcium Phosphorus 5.40 H Magnesium ALT < 5 L Alkaline Phosphatase 17 L Total Creatine Kinase CK-MB (CK-2) Troponin T C-Reactive Protein Total Protein 4.2 L D Albumin 2.9 L Urine WBC (Auto) Urine Creatinine Salicylates Miscellaneous Test Crossmatch 05/17/17 05/17/17 05/17/17 03:44 04:00 05:00 WBC 21.9 H RBC 2.89 L Hgb 8.3 L Hct 26.4 L RDW 18.2 H Plt Count Seg Neuts % (Manual) Lymphocytes % (Manual) 7.0 L Monocytes % (Manual) Nucleated RBC % Seg Neutrophils # Man 15.3 H Lymphocytes # (Manual) Monocytes # (Manual) 1.5 H Eosinophils # (Manual) PT INR APTT D-Dimer POC ABG pH 7.199 L POC ABG pCO2 POC ABG pO2 107 H Sodium Potassium Chloride 111.7 H Carbon Dioxide 16 L BUN 43 H Creatinine 3.4 H Glucose POC Glucose Lactic Acid Calcium 7.3 L Ionized Calcium Phosphorus Magnesium ALT Alkaline Phosphatase Total Creatine Kinase CK-MB (CK-2) Troponin T C-Reactive Protein Total Protein Albumin Urine WBC (Auto) Urine Creatinine Salicylates Miscellaneous Test Crossmatch 05/17/17 05/17/17 05/18/17 05:00 12:20 04:43 WBC RBC Hgb Hct RDW Plt Count Seg Neuts % (Manual) Lymphocytes % (Manual) Monocytes % (Manual) Nucleated RBC % Seg Neutrophils # Man Lymphocytes # (Manual) Monocytes # (Manual) Eosinophils # (Manual) PT INR APTT D-Dimer POC ABG pH 7.251 L POC ABG pCO2 POC ABG pO2 126 H Sodium Potassium Chloride Carbon Dioxide BUN Creatinine Glucose POC Glucose Lactic Acid Calcium Ionized Calcium Phosphorus Magnesium ALT Alkaline Phosphatase Total Creatine Kinase CK-MB (CK-2) Troponin T C-Reactive Protein 2.30 H Total Protein Albumin Urine WBC (Auto) Urine Creatinine Salicylates Miscellaneous Test Flexitest 1 H Crossmatch 05/18/17 05/18/17 05/18/17 14:46 21:30 Unknown WBC RBC Hgb Hct RDW Plt Count Seg Neuts % (Manual) Lymphocytes % (Manual) Monocytes % (Manual) Nucleated RBC % Seg Neutrophils # Man Lymphocytes # (Manual) Monocytes # (Manual) Eosinophils # (Manual) PT INR APTT D-Dimer POC ABG pH 7.227 L POC ABG pCO2 POC ABG pO2 126 H Sodium Potassium 3.2 L Chloride 108.9 H Carbon Dioxide 19 L BUN 44 H Creatinine 3.6 H Glucose POC Glucose 206 H Lactic Acid Calcium 7.3 L Ionized Calcium Phosphorus Magnesium ALT Alkaline Phosphatase Total Creatine Kinase CK-MB (CK-2) Troponin T C-Reactive Protein Total Protein Albumin Urine WBC (Auto) Urine Creatinine Salicylates Miscellaneous Test Crossmatch 05/18/17 05/19/17 05/19/17 Unknown 05:26 06:00 WBC 25.2 H RBC 2.76 L Hgb 8.0 L Hct 24.9 L RDW 17.7 H Plt Count Seg Neuts % (Manual) 86.0 H Lymphocytes % (Manual) 1.0 L Monocytes % (Manual) Nucleated RBC % Seg Neutrophils # Man 21.7 H Lymphocytes # (Manual) 0.3 L Monocytes # (Manual) 1.5 H Eosinophils # (Manual) PT INR APTT D-Dimer POC ABG pH 7.216 L POC ABG pCO2 47.0 H POC ABG pO2 Sodium Potassium Chloride Carbon Dioxide BUN Creatinine Glucose POC Glucose 173 H Lactic Acid Calcium Ionized Calcium Phosphorus Magnesium ALT Alkaline Phosphatase Total Creatine Kinase CK-MB (CK-2) Troponin T C-Reactive Protein Total Protein Albumin Urine WBC (Auto) Urine Creatinine Salicylates Miscellaneous Test Crossmatch 05/19/17 05/19/1705/19/17 11:47 18:04 23:54 WBC RBC Hgb Hct RDW Plt Count Seg Neuts % (Manual) Lymphocytes % (Manual) Monocytes % (Manual) Nucleated RBC % Seg Neutrophils # Man Lymphocytes # (Manual) Monocytes # (Manual) Eosinophils # (Manual) PT INR APTT D-Dimer POC ABG pH POC ABG pCO2 POC ABG pO2 Sodium Potassium Chloride Carbon Dioxide BUN Creatinine Glucose POC Glucose 203 H 178 H Lactic Acid Calcium Ionized Calcium Phosphorus Magnesium ALT Alkaline Phosphatase Total Creatine Kinase CK-MB (CK-2) Troponin T C-Reactive Protein Total Protein Albumin Urine WBC (Auto) 78.0 H Urine Creatinine Salicylates Miscellaneous Test Crossmatch 05/19/17 05/19/17 05/20/17 Unknown Unknown 05:03 WBC 36.5 H RBC 2.71 L Hgb 7.7 L Hct 24.3 L RDW 18.3 H Plt Count Seg Neuts % (Manual) 79.0 H Lymphocytes % (Manual) 3.0 L Monocytes % (Manual) Nucleated RBC % Seg Neutrophils # Man 28.8 H Lymphocytes # (Manual) 1.1 L Monocytes # (Manual) 2.6 H Eosinophils # (Manual) PT INR APTT D-Dimer POC ABG pH 7.322 L POC ABG pCO2 46.3 H POC ABG pO2 160 H Sodium Potassium 3.5 L Chloride 108.1 H Carbon Dioxide 20 L BUN 36 H Creatinine 3.1 H Glucose 165 H POC Glucose Lactic Acid Calcium 7.7 L Ionized Calcium Phosphorus Magnesium ALT Alkaline Phosphatase Total Creatine Kinase CK-MB (CK-2) Troponin T C-Reactive Protein Total Protein Albumin Urine WBC (Auto) Urine Creatinine Salicylates Miscellaneous Test Crossmatch 05/20/17 05/20/17 05/20/17 05:30 05:30 05:44 WBC 44.4 H* RBC 2.65 L Hgb 7.6 L Hct 23.7 L RDW 18.0 H Plt Count Seg Neuts % (Manual) Lymphocytes % (Manual) 7.0 L Monocytes % (Manual) 12.0 H Nucleated RBC % Seg Neutrophils # Man 22.2 H Lymphocytes # (Manual) Monocytes # (Manual) 5.3 H Eosinophils # (Manual) PT INR APTT D-Dimer POC ABG pH POC ABG pCO2 POC ABG pO2 Sodium Potassium 3.5 L Chloride Carbon Dioxide BUN 23 H Creatinine 2.1 H Glucose 167 H POC Glucose 182 H Lactic Acid Calcium 7.7 L Ionized Calcium Phosphorus Magnesium 1.40 L ALT Alkaline Phosphatase Total Creatine Kinase CK-MB (CK-2) Troponin T C-Reactive Protein Total Protein Albumin Urine WBC (Auto) Urine Creatinine Salicylates Miscellaneous Test Crossmatch 05/20/17 05/20/17 05/20/17 11:59 13:46 13:46 WBC RBC Hgb Hct RDW Plt Count Seg Neuts % (Manual) Lymphocytes % (Manual) Monocytes % (Manual) Nucleated RBC % Seg Neutrophils # Man Lymphocytes # (Manual) Monocytes # (Manual) Eosinophils # (Manual) PT 22.6 H INR 1.89 H APTT 44.6 H D-Dimer POC ABG pH POC ABG pCO2 POC ABG pO2 Sodium Potassium Chloride Carbon Dioxide BUN Creatinine Glucose POC Glucose 162 H Lactic Acid Calcium Ionized Calcium Phosphorus Magnesium ALT Alkaline Phosphatase Total Creatine Kinase CK-MB (CK-2) Troponin T C-Reactive Protein Total Protein Albumin Urine WBC (Auto) Urine Creatinine Salicylates Miscellaneous Test Crossmatch See Detail 05/20/17 05/20/17 05/20/17 17:36 20:00 20:44 WBC 38.3 H RBC 3.60 L Hgb Hct RDW 15.8 H Plt Count Seg Neuts % (Manual) Lymphocytes % (Manual) Monocytes % (Manual) Nucleated RBC % Seg Neutrophils # Man Lymphocytes # (Manual) Monocytes # (Manual) Eosinophils # (Manual) PT 21.4 H INR 1.76 H APTT 172.2 H* D-Dimer POC ABG pH POC ABG pCO2 POC ABG pO2 Sodium Potassium Chloride Carbon Dioxide BUN Creatinine Glucose POC Glucose 144 H Lactic Acid Calcium Ionized Calcium Phosphorus Magnesium ALT Alkaline Phosphatase Total Creatine Kinase CK-MB (CK-2) Troponin T C-Reactive Protein Total Protein Albumin Urine WBC (Auto) Urine Creatinine Salicylates Miscellaneous Test Crossmatch 05/20/17 05/20/17 05/21/17 22:20 23:37 05:20 WBC RBC Hgb Hct RDW Plt Count Seg Neuts % (Manual) Lymphocytes % (Manual) Monocytes % (Manual) Nucleated RBC % Seg Neutrophils # Man Lymphocytes # (Manual) Monocytes # (Manual) Eosinophils # (Manual) PT INR APTT 42.8 H D-Dimer POC ABG pH POC ABG pCO2 POC ABG pO2 Sodium Potassium 3.5 L Chloride Carbon Dioxide BUN Creatinine 1.5 H Glucose 106 H POC Glucose 113 H Lactic Acid Calcium 7.7 L Ionized Calcium Phosphorus Magnesium ALT Alkaline Phosphatase Total Creatine Kinase CK-MB (CK-2) Troponin T C-Reactive Protein Total Protein Albumin Urine WBC (Auto) Urine Creatinine Salicylates Miscellaneous Test Crossmatch 05/21/17 05/21/17 05/21/17 05:20 05:20 05:31 WBC 31.6 H RBC Hgb Hct RDW 15.8 H Plt Count Seg Neuts % (Manual) 90.0 H Lymphocytes % (Manual) 3.0 L Monocytes % (Manual) Nucleated RBC % Seg Neutrophils # Man 28.4 H Lymphocytes # (Manual) 0.9 L Monocytes # (Manual) Eosinophils # (Manual) 1.3 H PT 19.1 H INR 1.53 H APTT 37.9 H D-Dimer POC ABG pH POC ABG pCO2 POC ABG pO2 Sodium Potassium Chloride Carbon Dioxide BUN Creatinine Glucose POC Glucose 126 H Lactic Acid Calcium Ionized Calcium Phosphorus Magnesium ALT Alkaline Phosphatase Total Creatine Kinase CK-MB (CK-2) Troponin T C-Reactive Protein Total Protein Albumin Urine WBC (Auto) Urine Creatinine Salicylates Miscellaneous Test Crossmatch 05/21/17 05/21/17 05/21/17 12:46 13:00 13:00 WBC 32.9 H RBC 3.09 L Hgb 9.0 L Hct 27.6 L RDW 16.3 H Plt Count Seg Neuts % (Manual) 86.0 H Lymphocytes % (Manual) 2.0 L Monocytes % (Manual) Nucleated RBC % 2.0 H Seg Neutrophils # Man 28.3 H Lymphocytes # (Manual) 0.7 L Monocytes # (Manual) Eosinophils # (Manual) PT INR APTT D-Dimer POC ABG pH POC ABG pCO2 POC ABG pO2 Sodium Potassium 3.3 L Chloride 108.4 H Carbon Dioxide 20 L BUN Creatinine 1.4 H Glucose 119 H POC Glucose 157 H Lactic Acid Calcium 6.5 L D Ionized Calcium Phosphorus Magnesium ALT Alkaline Phosphatase 28 L Total Creatine Kinase CK-MB (CK-2) Troponin T C-Reactive Protein Total Protein 3.2 L Albumin 1.7 L Urine WBC (Auto) Urine Creatinine Salicylates Miscellaneous Test Crossmatch 05/21/17 05/21/17 05/21/17 13:00 18:15 21:00 WBC 42.4 H* RBC 2.85 L Hgb 8.2 L Hct 25.9 L RDW 16.3 H Plt Count Seg Neuts % (Manual) 95.0 H Lymphocytes % (Manual) 3.0 L Monocytes % (Manual) Nucleated RBC % Seg Neutrophils # Man 40.3 H Lymphocytes # (Manual) Monocytes # (Manual) Eosinophils # (Manual) PT 19.7 H INR 1.59 H APTT 41.1 H D-Dimer POC ABG pH POC ABG pCO2 POC ABG pO2 Sodium Potassium Chloride Carbon Dioxide BUN Creatinine Glucose POC Glucose 149 H Lactic Acid Calcium Ionized Calcium Phosphorus Magnesium ALT Alkaline Phosphatase Total Creatine Kinase CK-MB (CK-2) Troponin T C-Reactive Protein Total Protein Albumin Urine WBC (Auto) Urine Creatinine Salicylates Miscellaneous Test Crossmatch 05/22/17 05/22/17 05/22/17 00:02 04:50 04:50 WBC RBC Hgb Hct RDW Plt Count Seg Neuts % (Manual) Lymphocytes % (Manual) Monocytes % (Manual) Nucleated RBC % Seg Neutrophils # Man Lymphocytes # (Manual) Monocytes # (Manual) Eosinophils # (Manual) PT INR APTT D-Dimer POC ABG pH POC ABG pCO2 POC ABG pO2 Sodium Potassium Chloride 109.4 H Carbon Dioxide 18 L BUN Creatinine 1.8 H Glucose 164 H POC Glucose 155 H Lactic Acid Calcium 6.6 L Ionized Calcium Phosphorus Magnesium 1.40 L ALT Alkaline Phosphatase 33 L Total Creatine Kinase CK-MB (CK-2) Troponin T C-Reactive Protein Total Protein 3.6 L Albumin 2.0 L Urine WBC (Auto) Urine Creatinine Salicylates Miscellaneous Test Crossmatch 05/22/17 05/22/17 05/22/17 04:50 04:50 05:39 WBC 41.8 H* RBC 2.65 L Hgb 7.8 L Hct 24.1 L RDW 16.5 H Plt Count Seg Neuts % (Manual) 73.0 H Lymphocytes % (Manual) 4.0 L Monocytes % (Manual) Nucleated RBC % Seg Neutrophils # Man 30.5 H Lymphocytes # (Manual) Monocytes # (Manual) 1.3 H Eosinophils # (Manual) PT 21.3 H INR 1.75 H APTT 39.4 H D-Dimer POC ABG pH POC ABG pCO2 POC ABG pO2 Sodium Potassium Chloride Carbon Dioxide BUN Creatinine Glucose POC Glucose 200 H Lactic Acid Calcium Ionized Calcium Phosphorus Magnesium ALT Alkaline Phosphatase Total Creatine Kinase CK-MB (CK-2) Troponin T C-Reactive Protein Total Protein Albumin Urine WBC (Auto) Urine Creatinine Salicylates Miscellaneous Test Crossmatch 05/22/17 05/22/17 05/22/17 05:46 10:32 11:41 WBC RBC Hgb Hct RDW Plt Count Seg Neuts % (Manual) Lymphocytes % (Manual) Monocytes % (Manual) Nucleated RBC % Seg Neutrophils # Man Lymphocytes # (Manual) Monocytes # (Manual) Eosinophils # (Manual) PT INR APTT D-Dimer POC ABG pH 7.225 L 7.317 L POC ABG pCO2 45.3 H POC ABG pO2 Sodium Potassium Chloride Carbon Dioxide BUN Creatinine Glucose POC Glucose 169 H Lactic Acid Calcium Ionized Calcium Phosphorus Magnesium ALT Alkaline Phosphatase Total Creatine Kinase CK-MB (CK-2) Troponin T C-Reactive Protein Total Protein Albumin Urine WBC (Auto) Urine Creatinine Salicylates Miscellaneous Test Crossmatch 05/22/17 05/22/17 05/22/17 12:45 18:01 22:50 WBC RBC Hgb 7.4 L 8.8 L Hct 23.5 L 27.8 L RDW Plt Count Seg Neuts % (Manual) Lymphocytes % (Manual) Monocytes % (Manual) Nucleated RBC % Seg Neutrophils # Man Lymphocytes # (Manual) Monocytes # (Manual) Eosinophils # (Manual) PT INR APTT D-Dimer POC ABG pH POC ABG pCO2 POC ABG pO2 Sodium Potassium Chloride Carbon Dioxide BUN Creatinine Glucose POC Glucose 148 H Lactic Acid Calcium Ionized Calcium Phosphorus Magnesium ALT Alkaline Phosphatase Total Creatine Kinase CK-MB (CK-2) Troponin T C-Reactive Protein Total Protein Albumin Urine WBC (Auto) Urine Creatinine Salicylates Miscellaneous Test Crossmatch 05/22/17 05/23/17 05/23/17 23:53 05:15 05:15 WBC 40.9 H* RBC 3.06 L Hgb 8.9 L Hct 27.4 L RDW 16.7 H Plt Count Seg Neuts % (Manual) 93.0 H Lymphocytes % (Manual) 3.0 L Monocytes % (Manual) Nucleated RBC % Seg Neutrophils # Man 38.0 H Lymphocytes # (Manual) Monocytes # (Manual) Eosinophils # (Manual) PT INR APTT D-Dimer POC ABG pH POC ABG pCO2 POC ABG pO2 Sodium Potassium Chloride 110.6 H Carbon Dioxide 19 L BUN 18 H Creatinine 1.9 H Glucose 102 H POC Glucose 143 H Lactic Acid Calcium 7.0 L Ionized Calcium Phosphorus Magnesium ALT Alkaline Phosphatase Total Creatine Kinase CK-MB (CK-2) Troponin T C-Reactive Protein Total Protein Albumin Urine WBC (Auto) Urine Creatinine Salicylates Miscellaneous Test Crossmatch 05/23/17 05/23/17 05/23/17 05:23 06:09 08:55 WBC RBC Hgb Hct RDW Plt Count Seg Neuts % (Manual) Lymphocytes % (Manual) Monocytes % (Manual) Nucleated RBC % Seg Neutrophils # Man Lymphocytes # (Manual) Monocytes # (Manual) Eosinophils # (Manual) PT INR APTT D-Dimer POC ABG pH 7.240 L 7.297 L POC ABG pCO2 POC ABG pO2 Sodium Potassium Chloride Carbon Dioxide BUN Creatinine Glucose POC Glucose 124 H Lactic Acid Calcium Ionized Calcium Phosphorus Magnesium ALT Alkaline Phosphatase Total Creatine Kinase CK-MB (CK-2) Troponin T C-Reactive Protein Total Protein Albumin Urine WBC (Auto) Urine Creatinine Salicylates Miscellaneous Test Crossmatch 05/23/17 05/23/17 05/23/17 12:46 16:55 18:33 WBC RBC Hgb Hct RDW Plt Count Seg Neuts % (Manual) Lymphocytes % (Manual) Monocytes % (Manual) Nucleated RBC % Seg Neutrophils # Man Lymphocytes # (Manual) Monocytes # (Manual) Eosinophils # (Manual) PT INR APTT D-Dimer POC ABG pH POC ABG pCO2 POC ABG pO2 Sodium Potassium Chloride Carbon Dioxide BUN Creatinine Glucose POC Glucose 159 H 139 H Lactic Acid Calcium Ionized Calcium Phosphorus Magnesium ALT Alkaline Phosphatase Total Creatine Kinase CK-MB (CK-2) Troponin T C-Reactive Protein 7.10 H Total Protein Albumin Urine WBC (Auto) Urine Creatinine Salicylates Miscellaneous Test Crossmatch 05/23/17 05/24/17 05/24/17 23:25 06:14 07:16 WBC RBC Hgb Hct RDW Plt Count Seg Neuts % (Manual) Lymphocytes % (Manual) Monocytes % (Manual) Nucleated RBC % Seg Neutrophils # Man Lymphocytes # (Manual) Monocytes # (Manual) Eosinophils # (Manual) PT INR APTT D-Dimer POC ABG pH POC ABG pCO2 POC ABG pO2 Sodium Potassium Chloride Carbon Dioxide BUN Creatinine 1.5 H Glucose 130 H POC Glucose 143 H 159 H Lactic Acid Calcium 7.6 L Ionized Calcium Phosphorus Magnesium ALT Alkaline Phosphatase Total Creatine Kinase CK-MB (CK-2) Troponin T C-Reactive Protein Total Protein Albumin Urine WBC (Auto) Urine Creatinine Salicylates Miscellaneous Test Crossmatch 05/24/17 05/24/17 05/24/17 07:16 11:42 17:27 WBC 36.9 H RBC 2.90 L Hgb 8.5 L Hct 26.2 L RDW 16.8 H Plt Count Seg Neuts % (Manual) 96.5 H Lymphocytes % (Manual) 0 L Monocytes % (Manual) Nucleated RBC % 2.0 H Seg Neutrophils # Man 35.6 H Lymphocytes # (Manual) 0.0 L Monocytes # (Manual) 0.9 H Eosinophils # (Manual) PT INR APTT D-Dimer POC ABG pH POC ABG pCO2 POC ABG pO2 Sodium Potassium Chloride Carbon Dioxide BUN Creatinine Glucose POC Glucose 168 H 59 L Lactic Acid Calcium Ionized Calcium Phosphorus Magnesium ALT Alkaline Phosphatase Total Creatine Kinase CK-MB (CK-2) Troponin T C-Reactive Protein Total Protein Albumin Urine WBC (Auto) Urine Creatinine Salicylates Miscellaneous Test Crossmatch 05/24/17 05/24/17 05/25/17 18:43 23:47 05:37 WBC RBC Hgb Hct RDW Plt Count Seg Neuts % (Manual) Lymphocytes % (Manual) Monocytes % (Manual) Nucleated RBC % Seg Neutrophils # Man Lymphocytes # (Manual) Monocytes # (Manual) Eosinophils # (Manual) PT INR APTT D-Dimer POC ABG pH POC ABG pCO2 POC ABG pO2 Sodium Potassium Chloride Carbon Dioxide BUN Creatinine Glucose POC Glucose 139 H 150 H 152 H Lactic Acid Calcium Ionized Calcium Phosphorus Magnesium ALT Alkaline Phosphatase Total Creatine Kinase CK-MB (CK-2) Troponin T C-Reactive Protein Total Protein Albumin Urine WBC (Auto) Urine Creatinine Salicylates Miscellaneous Test Crossmatch 05/25/17 05/25/17 05/25/17 07:08 07:08 12:06 WBC 31.7 H RBC 2.81 L Hgb 8.2 L Hct 25.4 L RDW 16.3 H Plt Count Seg Neuts % (Manual) 97.0 H Lymphocytes % (Manual) 1.5 L Monocytes % (Manual) Nucleated RBC % 3.5 H Seg Neutrophils # Man 30.7 H Lymphocytes # (Manual) 0.5 L Monocytes # (Manual) Eosinophils # (Manual) PT INR APTT D-Dimer POC ABG pH POC ABG pCO2 POC ABG pO2 Sodium Potassium Chloride Carbon Dioxide BUN 24 H Creatinine 1.5 H Glucose 126 H POC Glucose 178 H Lactic Acid Calcium 8.0 L Ionized Calcium Phosphorus Magnesium ALT Alkaline Phosphatase Total Creatine Kinase CK-MB (CK-2) Troponin T C-Reactive Protein Total Protein Albumin Urine WBC (Auto) Urine Creatinine Salicylates Miscellaneous Test Crossmatch 05/25/17 05/25/17 05/26/17 17:47 23:30 05:32 WBC RBC Hgb Hct RDW Plt Count Seg Neuts % (Manual) Lymphocytes % (Manual) Monocytes % (Manual) Nucleated RBC % Seg Neutrophils # Man Lymphocytes # (Manual) Monocytes # (Manual) Eosinophils # (Manual) PT INR APTT D-Dimer POC ABG pH POC ABG pCO2 POC ABG pO2 Sodium Potassium Chloride Carbon Dioxide BUN Creatinine Glucose POC Glucose 123 H 125 H 182 H Lactic Acid Calcium Ionized Calcium Phosphorus Magnesium ALT Alkaline Phosphatase Total Creatine Kinase CK-MB (CK-2) Troponin T C-Reactive Protein Total Protein Albumin Urine WBC (Auto) Urine Creatinine Salicylates Miscellaneous Test Crossmatch 05/26/17 05/26/17 05/26/17 06:00 07:15 07:15 WBC 21.0 H RBC 2.72 L Hgb 7.8 L Hct 24.5 L RDW 16.5 H Plt Count Seg Neuts % (Manual) 88.0 H Lymphocytes % (Manual) 6.0 L Monocytes % (Manual) Nucleated RBC % 3.0 H Seg Neutrophils # Man 18.5 H Lymphocytes # (Manual) Monocytes # (Manual) Eosinophils # (Manual) PT INR APTT D-Dimer POC ABG pH POC ABG pCO2 POC ABG pO2 Sodium Potassium Chloride Carbon Dioxide BUN 34 H 34 H Creatinine 1.5 H 1.5 H Glucose 148 H 145 H POC Glucose Lactic Acid Calcium 8.1 L 8.2 L Ionized Calcium Phosphorus Magnesium ALT < 5 L Alkaline Phosphatase Total Creatine Kinase CK-MB (CK-2) Troponin T C-Reactive Protein Total Protein 4.0 L Albumin 2.3 L Urine WBC (Auto) Urine Creatinine Salicylates Miscellaneous Test Crossmatch
[2017-05-26] MEDS ORDERED: NACL 0.9% 500 ML 500 ML IV ONE (10:17)
--- NOTE | 2017-05-26 10:17 | Progress Note ---
Assessment and Plan POD # 5 Pt awake and alert. possible extubation today. BP holding up on just 1 mcg of Levophed Abd soft stable consider transf I unit PRBC will d/c ng today if extubated Selected Entries 05/26/17 05/26/17 08:30 09:57 Pulse Rate [ 93 H Anterior Bilateral Throughout] Blood Pressure 105/53 Laboratory Tests 05/26/17 05/26/17 05/26/17 06:00 07:15 09:49 WBC 21.0 H Hgb 7.8 L Hct 24.5 L POC ABG pH 7.424 POC ABG pCO2 44.1 POC ABG pO2 89 POC ABG HCO3 28.9 Potassium 4.3 Carbon Dioxide 27 Anion Gap 15 BUN 34 H Objective Vital Signs - 12hr 05/25/17 05/25/17 05/25/17 22:30 22:45 23:00 Temperature Pulse Rate 82 94 H 94 H Pulse Rate [ Anterior Bilateral Throughout] Pulse Rate [ From Monitor] Respiratory 24 24 24 Rate Respiratory Rate [Anterior Bilateral Throughout] Blood Pressure 117/59 114/63 108/58 O2 Sat by Pulse 100 100 Oximetry 05/25/17 05/25/17 05/25/17 23:15 23:30 23:33 Temperature Pulse Rate 86 79 82 Pulse Rate [ Anterior Bilateral Throughout] Pulse Rate [ From Monitor] Respiratory 22 21 Rate Respiratory Rate [Anterior Bilateral Throughout] Blood Pressure 105/53 98/51 98/51 O2 Sat by Pulse 98 96 Oximetry 05/25/17 05/26/17 05/26/17 23:45 00:00 00:15 Temperature 98.8 F Pulse Rate 95 H 80 86 Pulse Rate [ Anterior Bilateral Throughout] Pulse Rate [ 98 H From Monitor] Respiratory 22 20 23 Rate Respiratory Rate [Anterior Bilateral Throughout] Blood Pressure 114/60 104/53 107/53 O2 Sat by Pulse 96 100 100 Oximetry 05/26/17 05/26/17 05/26/17 00:30 00:45 01:00 Temperature Pulse Rate 77 82 76 Pulse Rate [ Anterior Bilateral Throughout] Pulse Rate [ From Monitor] Respiratory 17 24 20 Rate Respiratory Rate [Anterior Bilateral Throughout] Blood Pressure 100/51 92/45 109/54 O2 Sat by Pulse 100 Oximetry 05/26/17 05/26/17 05/26/17 01:15 01:30 01:45 Temperature Pulse Rate 80 79 92 H Pulse Rate [ Anterior Bilateral Throughout] Pulse Rate [ From Monitor] Respiratory 22 24 21 Rate Respiratory Rate [Anterior Bilateral Throughout] Blood Pressure 115/58 110/54 105/58 O2 Sat by Pulse 97 100 99 Oximetry 05/26/17 05/26/17 05/26/17 02:00 02:15 02:30 Temperature Pulse Rate 90 96 H 90 Pulse Rate [ Anterior Bilateral Throughout] Pulse Rate [ From Monitor] Respiratory 21 22 23 Rate Respiratory Rate [Anterior Bilateral Throughout] Blood Pressure 112/69 92/65 102/56 O2 Sat by Pulse 99 99 99 Oximetry 05/26/17 05/26/17 05/26/17 02:45 03:01 03:15 Temperature Pulse Rate 90 91 H 116 H Pulse Rate [ Anterior Bilateral Throughout] Pulse Rate [ From Monitor] Respiratory 21 25 H Rate Respiratory Rate [Anterior Bilateral Throughout] Blood Pressure 95/62 95/62 95/62 O2 Sat by Pulse 100 100 100 Oximetry 05/26/17 05/26/17 05/26/17 03:21 03:31 03:45 Temperature Pulse Rate 112 H 105 H 101 H Pulse Rate [ Anterior Bilateral Throughout] Pulse Rate [ From Monitor] Respiratory 24 19 Rate Respiratory Rate [Anterior Bilateral Throughout] Blood Pressure 95/62 95/62 O2 Sat by Pulse 98 95 99 Oximetry 05/26/17 05/26/17 05/26/17 04:00 04:01 04:15 Temperature 98.3 F Pulse Rate 104 H 91 H Pulse Rate [ Anterior Bilateral Throughout] Pulse Rate [ 86 From Monitor] Respiratory 21 24 Rate Respiratory Rate [Anterior Bilateral Throughout] Blood Pressure 95/62 95/62 O2 Sat by Pulse 100 95 98 Oximetry 05/26/17 05/26/17 05/26/17 04:31 04:45 05:01 Temperature Pulse Rate 84 103 H 87 Pulse Rate [ Anterior Bilateral Throughout] Pulse Rate [ From Monitor] Respiratory 21 18 22 Rate Respiratory Rate [Anterior Bilateral Throughout] Blood Pressure 95/62 95/62 102/61 O2 Sat by Pulse 99 Oximetry 05/26/17 05/26/17 05/26/17 05:15 05:30 05:45 Temperature Pulse Rate 82 95 H 89 Pulse Rate [ Anterior Bilateral Throughout] Pulse Rate [ From Monitor] Respiratory 16 16 18 Rate Respiratory Rate [Anterior Bilateral Throughout] Blood Pressure 96/51 96/46 86/43 O2 Sat by Pulse 96 98 Oximetry 05/26/17 05/26/1717 06:00 06:15 06:30 Temperature Pulse Rate 84 83 83 Pulse Rate [ Anterior Bilateral Throughout] Pulse Rate [ From Monitor] Respiratory 19 21 21 Rate Respiratory Rate [Anterior Bilateral Throughout] Blood Pressure 86/43 111/56 108/59 O2 Sat by Pulse 100 100 99 Oximetry 05/26/17 05/26/17 05/26/17 06:45 07:00 07:15 Temperature Pulse Rate 82 80 89 Pulse Rate [ Anterior Bilateral Throughout] Pulse Rate [ From Monitor] Respiratory 16 24 25 H Rate Respiratory Rate [Anterior Bilateral Throughout] Blood Pressure 113/53 128/64 128/64 O2 Sat by Pulse 99 98 99 Oximetry 05/26/17 05/26/17 05/26/17 07:23 07:30 07:45 Temperature Pulse Rate 83 85 82 Pulse Rate [ Anterior Bilateral Throughout] Pulse Rate [ From Monitor] Respiratory 23 25 H Rate Respiratory Rate [Anterior Bilateral Throughout] Blood Pressure 113/53 107/58 101/55 O2 Sat by Pulse 98 99 100 Oximetry 05/26/17 05/26/17 05/26/17 08:00 08:15 08:30 Temperature 97.4 F L Pulse Rate 82 88 86 Pulse Rate [ Anterior Bilateral Throughout] Pulse Rate [ 82 From Monitor] Respiratory 24 24 27 H Rate Respiratory Rate [Anterior Bilateral Throughout] Blood Pressure 107/52 106/53 105/53 O2 Sat by Pulse 99 100 Oximetry 05/26/17 05/26/17 05/26/17 09:31 09:44 09:57 Temperature Pulse Rate 102 H Pulse Rate [ 87 93 H Anterior Bilateral Throughout] Pulse Rate [ From Monitor] Respiratory 24 Rate Respiratory 19 26 H Rate [Anterior Bilateral Throughout] Blood Pressure 96/53 O2 Sat by Pulse 99 Oximetry - Labs 05/26/17 07:15 05/26/17 07:15 Diabetes panel 05/26/17 05/26/17 Range/Units 06:00 07:15 Sodium 142 142 (137-145) mmol/L Potassium 4.3 4.2 (3.6-5.0) mmol/L Chloride 104.3 103.8 (98-107) mmol/L Carbon Dioxide 27 27 (22-30) mmol/L BUN 34 H 34 H (7-17) mg/dL Creatinine 1.5 H 1.5 H (0.7-1.2) mg/dL Glucose 148 H 145 H (65-100) mg/dL Calcium 8.1 L 8.2 L (8.4-10.2) mg/dL AST 9 (5-40) units/L ALT < 5 L (7-56) units/L Alkaline Phosphatase 41 (35-129) units/L Total Protein 4.0 L (6.3-8.2) g/dL Albumin 2.3 L (3.9-5) g/dL Calcium panel 05/26/17 05/26/17 Range/Units 06:00 07:15 Calcium 8.1 L 8.2 L (8.4-10.2) mg/dL Phosphorus 3.50 (2.5-4.5) mg/dL Albumin 2.3 L (3.9-5) g/dL Pituitary panel 05/26/17 05/26/17 Range/Units 06:00 07:15 Sodium 142 142 (137-145) mmol/L Potassium 4.3 4.2 (3.6-5.0) mmol/L Chloride 104.3 103.8 (98-107) mmol/L Carbon Dioxide 27 27 (22-30) mmol/L BUN 34 H 34 H (7-17) mg/dL Creatinine 1.5 H 1.5 H (0.7-1.2) mg/dL Glucose 148 H 145 H (65-100) mg/dL Calcium 8.1 L 8.2 L (8.4-10.2) mg/dL Adrenal panel 05/26/17 05/26/17 Range/Units 06:00 07:15 Sodium 142 142 (137-145) mmol/L Potassium 4.3 4.2 (3.6-5.0) mmol/L Chloride 104.3 103.8 (98-107) mmol/L Carbon Dioxide 27 27 (22-30) mmol/L BUN 34 H 34 H (7-17) mg/dL Creatinine 1.5 H 1.5 H (0.7-1.2) mg/dL Glucose 148 H 145 H (65-100) mg/dL Calcium 8.1 L 8.2 L (8.4-10.2) mg/dL Total Bilirubin 0.30 (0.1-1.2) mg/dL AST 9 (5-40) units/L ALT < 5 L (7-56) units/L Alkaline Phosphatase 41 (35-129) units/L Total Protein 4.0 L (6.3-8.2) g/dL Albumin 2.3 L (3.9-5) g/dL
--- NOTE | 2017-05-26 10:29 | Progress Note ---
Assessment and Plan Assessment: 1) Persistent Septic Shock - better, still on pressors, and leukocytosis better- leukocytosis likely from recent splenectomy; etiology - severe C diff colitis. CRP=14 -->2.3. Procal=2.4 -->1.7 2) Severe C diff Colitis: severe-recently exposed to broad spectrum abx. CT abd showed colitis. 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 reactive from colitis versus real 4) LUIS-worsening - now on HD 6) COPD 7) Resp failure Plan: -continue IV flagyl will stop tomorow -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: Prevnar single dose and 8 weeks later Pneumovax Haemophilus influenza vaccine - one dose Menactra - (meningococcal vaccine) - one dose -close monitoring Thank you Dr Olson for your consultation, will follow up with you. Winifred Guerrero MD Infectious Diseases Specialist [facility] [phone] O [phone] Subjective Date of service: 05/26/17 Principal diagnosis: Septic shock,C. diff colitis Interval history: Remains on levophed at 2 mcg/min, sedated, alert son at bedside, intubated Microbiology: Blood cultures: 05/05 neg 05/23 ngtd Urine cultures: 05/05 neg 05/19 billy Stool cultures: C diff 05/04 POSITIVE Resp culture: 05/16 neg Current Antimicrobials: Metronidazole 05/05 Previous Antimicrobials: Zosyn Levaquin Vancomycin PO Metronidazole Vanco rectal 05/07 Ceftriaxone 05/11 meropenem 05/17 Objective - Exam Narrative Exam: General appearance: alert on the vent Eyes: anicteric sclerae HENT: Atraumatic; oropharynx +ETT Neck: Trachea midline; supple, no thyromegaly or lymphadenopathy Lungs: scattered rhonchi CV: rrr Abdomen: Soft, +surgical wound Ileostomy bag and JAVAN drain with small amount of pinkish drainage. Extremities: + peripheral edema Skin: Normal temperature, turgor and texture; no rash, ulcers or subcutaneous nodules Psych: Anxious. Neuro: alert and oriented x 3. Moving all extermities Lines: right SC TLC - Constitutional Vitals: Vital Signs Temp Pulse Resp BP Pulse Ox 97.4 F L 93 H 26 H 96/53 99 12/04/17 08:00 05/26/17 09:57 05/26/17 09:57 05/26/17 09:31 05/26/17 09:31 Temperature -Last 24 Hours Temperature 97.4 F Temperature 98.3 F Temperature 98.8 F Temperature 98.1 F Temperature 97.7 F Temperature 98.5 F - Labs CBC & Chem 7: 05/26/17 07:15 05/26/17 07:15 Labs: Abnormal lab results 05/25/17 05/25/17 05/25/17 Range/Units 12:06 17:47 23:30 WBC (4.5-11.0) K/mm3 RBC (3.65-5.03) M/mm3 Hgb (10.1-14.3) gm/dl Hct (30.3-42.9) % RDW (13.2-15.2) % Seg Neuts % (Manual) (40.0-70.0) % Lymphocytes % (Manual) (13.4-35.0) % Nucleated RBC % (0.0-0.9) % Seg Neutrophils # Man (1.8-7.7) K/mm3 BUN (7-17) mg/dL Creatinine (0.7-1.2) mg/dL Glucose (65-100) mg/dL POC Glucose 178 H 123 H 125 H (70-105) Calcium (8.4-10.2) mg/dL ALT (7-56) units/L Total Protein (6.3-8.2) g/dL Albumin (3.9-5) g/dL 05/26/17 05/26/17 05/26/17 Range/Units 05:32 06:00 07:15 WBC 21.0 H (4.5-11.0) K/mm3 RBC 2.72 L (3.65-5.03) M/mm3 Hgb 7.8 L (10.1-14.3) gm/dl Hct 24.5 L (30.3-42.9) % RDW 16.5 H (13.2-15.2) % Seg Neuts % (Manual) 88.0 H (40.0-70.0) % Lymphocytes % (Manual) 6.0 L (13.4-35.0) % Nucleated RBC % 3.0 H (0.0-0.9) % Seg Neutrophils # Man 18.5 H (1.8-7.7) K/mm3 BUN 34 H (7-17) mg/dL Creatinine 1.5 H (0.7-1.2) mg/dL Glucose 148 H (65-100) mg/dL POC Glucose 182 H (70-105) Calcium 8.1 L (8.4-10.2) mg/dL ALT (7-56) units/L Total Protein (6.3-8.2) g/dL Albumin (3.9-5) g/dL 05/26/17 Range/Units 07:15 WBC (4.5-11.0) K/mm3 RBC (3.65-5.03) M/mm3 Hgb (10.1-14.3) gm/dl Hct (30.3-42.9) % RDW (13.2-15.2) % Seg Neuts % (Manual) (40.0-70.0) % Lymphocytes % (Manual) (13.4-35.0) % Nucleated RBC % (0.0-0.9) % Seg Neutrophils # Man (1.8-7.7) K/mm3 BUN 34 H (7-17) mg/dL Creatinine 1.5 H (0.7-1.2) mg/dL Glucose 145 H (65-100) mg/dL POC Glucose (70-105) Calcium 8.2 L (8.4-10.2) mg/dL ALT < 5 L (7-56) units/L Total Protein 4.0 L (6.3-8.2) g/dL Albumin 2.3 L (3.9-5) g/dL
--- NOTE | 2017-05-26 10:33 | Progress Note ---
Assessment and Plan Impression * Acute renal failure. Most likely secondary to ATN * Respiratory failure * Septic shock * Anemia * C. difficile colitis * COPD Recommendations * Status post initiation of hemodialysis on 05/18/2017 * Her serum creatinine noted to have improved. She is responding well to diuretics. She put out more than 1100 mL of urine after 80 mg of Lasix IV push . added IV albumin with Lasix. * Last hemodialysis was on 05/23/2017. Shall hold her dialysis for now . * Status post colectomy 05/21/17 * Avoid Nephrotoxins * Adjust meds for GFR less than 10 * Her renal function seems to be recovering at this time Subjective Date of service: 05/26/17 Principal diagnosis: Septic shock,C. diff colitis Interval history: resting well in bed today Objective - Exam Narrative Exam: General appearance: well-developed, well-nourished EENT: ATNC Neck: no JVD Respiratory: Present: Decreased Breath Sounds Cardiology: regular, S1S2 Gastrointestinal: hypoactive bowel sounds, no tenderness, distended Integumentary: no rash Neurologic: reflexes 2+ and symmetric Musculoskeletal: other (trace edema) Psychiatric: cooperative - Vital Signs Vital signs: Vital Signs - 12hr 05/25/17 05/25/17 05/25/17 22:45 23:00 23:15 Temperature Pulse Rate 94 H 94 H 86 Pulse Rate [ Anterior Bilateral Throughout] Pulse Rate [ From Monitor] Respiratory 24 24 22 Rate Respiratory Rate [Anterior Bilateral Throughout] Blood Pressure 114/63 108/58 105/53 O2 Sat by Pulse 100 98 Oximetry 05/25/17 05/25/17 05/25/17 23:30 23:33 23:45 Temperature Pulse Rate 79 82 95 H Pulse Rate [ Anterior Bilateral Throughout] Pulse Rate [ From Monitor] Respiratory 21 22 Rate Respiratory Rate [Anterior Bilateral Throughout] Blood Pressure 98/51 98/51 114/60 O2 Sat by Pulse 96 96 Oximetry 05/26/17 05/26/17 05/26/17 00:00 00:15 00:30 Temperature 98.8 F Pulse Rate 80 86 77 Pulse Rate [ Anterior Bilateral Throughout] Pulse Rate [ 98 H From Monitor] Respiratory 20 23 17 Rate Respiratory Rate [Anterior Bilateral Throughout] Blood Pressure 104/53 107/53 100/51 O2 Sat by Pulse 100 100 Oximetry 05/26/17 05/26/17 05/26/17 00:45 01:00 01:15 Temperature Pulse Rate 82 76 80 Pulse Rate [ Anterior Bilateral Throughout] Pulse Rate [ From Monitor] Respiratory 24 20 22 Rate Respiratory Rate [Anterior Bilateral Throughout] Blood Pressure 92/45 109/54 115/58 O2 Sat by Pulse 100 97 Oximetry 05/26/17 05/26/17 05/26/17 01:30 01:45 02:00 Temperature Pulse Rate 79 92 H 90 Pulse Rate [ Anterior Bilateral Throughout] Pulse Rate [ From Monitor] Respiratory 24 21 21 Rate Respiratory Rate [Anterior Bilateral Throughout] Blood Pressure 110/54 105/58 112/69 O2 Sat by Pulse 100 99 99 Oximetry 05/26/17 05/26/17 05/26/17 02:15 02:30 02:45 Temperature Pulse Rate 96 H 90 90 Pulse Rate [ Anterior Bilateral Throughout] Pulse Rate [ From Monitor] Respiratory 22 23 21 Rate Respiratory Rate [Anterior Bilateral Throughout] Blood Pressure 92/65 102/56 95/62 O2 Sat by Pulse 99 99 100 Oximetry 05/26/17 05/26/17 05/26/17 03:01 03:15 03:21 Temperature Pulse Rate 91 H 116 H 112 H Pulse Rate [ Anterior Bilateral Throughout] Pulse Rate [ From Monitor] Respiratory 25 H Rate Respiratory Rate [Anterior Bilateral Throughout] Blood Pressure 95/62 95/62 O2 Sat by Pulse 100 100 98 Oximetry 05/26/17 05/26/17 05/26/17 03:31 03:45 04:00 Temperature 98.3 F Pulse Rate 105 H 101 H Pulse Rate [ Anterior Bilateral Throughout] Pulse Rate [ 86 From Monitor] Respiratory 24 19 Rate Respiratory Rate [Anterior Bilateral Throughout] Blood Pressure 95/62 95/62 O2 Sat by Pulse 95 99 100 Oximetry 05/26/17 05/26/17 05/26/17 04:01 04:15 04:31 Temperature Pulse Rate 104 H 91 H 84 Pulse Rate [ Anterior Bilateral Throughout] Pulse Rate [ From Monitor] Respiratory 21 24 21 Rate Respiratory Rate [Anterior Bilateral Throughout] Blood Pressure 95/62 95/62 95/62 O2 Sat by Pulse 95 98 Oximetry 05/26/17 05/26/17 05/26/17 04:45 05:01 05:15 Temperature Pulse Rate 103 H 87 82 Pulse Rate [ Anterior Bilateral Throughout] Pulse Rate [ From Monitor] Respiratory 18 22 16 Rate Respiratory Rate [Anterior Bilateral Throughout] Blood Pressure 95/62 102/61 96/51 O2 Sat by Pulse 99 96 Oximetry 05/26/17 05/26/17 05/26/17 05:30 05:45 06:00 Temperature Pulse Rate 95 H 89 84 Pulse Rate [ Anterior Bilateral Throughout] Pulse Rate [ From Monitor] Respiratory 16 18 19 Rate Respiratory Rate [Anterior Bilateral Throughout] Blood Pressure 96/46 86/43 86/43 O2 Sat by Pulse 98 100 Oximetry 05/26/17 05/26/17 05/26/17 06:15 06:30 06:45 Temperature Pulse Rate 83 83 82 Pulse Rate [ Anterior Bilateral Throughout] Pulse Rate [ From Monitor] Respiratory 21 21 16 Rate Respiratory Rate [Anterior Bilateral Throughout] Blood Pressure 111/56 108/59 113/53 O2 Sat by Pulse 100 99 99 Oximetry 05/26/17 05/26/17 05/26/17 07:00 07:15 07:23 Temperature Pulse Rate 80 89 83 Pulse Rate [ Anterior Bilateral Throughout] Pulse Rate [ From Monitor] Respiratory 24 25 H Rate Respiratory Rate [Anterior Bilateral Throughout] Blood Pressure 128/64 128/64 113/53 O2 Sat by Pulse 98 99 98 Oximetry 05/26/17 05/26/17 05/26/17 07:30 07:45 08:00 Temperature 97.4 F L Pulse Rate 85 82 82 Pulse Rate [ Anterior Bilateral Throughout] Pulse Rate [ 82 From Monitor] Respiratory 23 25 H 24 Rate Respiratory Rate [Anterior Bilateral Throughout] Blood Pressure 107/58 101/55 107/52 O2 Sat by Pulse 99 100 99 Oximetry 05/26/17 05/26/17 05/26/17 08:15 08:30 09:31 Temperature Pulse Rate 88 86 102 H Pulse Rate [ Anterior Bilateral Throughout] Pulse Rate [ From Monitor] Respiratory 24 27 H 24 Rate Respiratory Rate [Anterior Bilateral Throughout] Blood Pressure 106/53 105/53 96/53 O2 Sat by Pulse 100 99 Oximetry 05/26/17 05/26/17 09:44 09:57 Temperature Pulse Rate Pulse Rate [ 87 93 H Anterior Bilateral Throughout] Pulse Rate [ From Monitor] Respiratory Rate Respiratory 19 26 H Rate [Anterior Bilateral Throughout] Blood Pressure O2 Sat by Pulse Oximetry - Lab 05/26/17 07:15 05/26/17 07:15 Most recent lab results Calcium 8.2 mg/dL (8.4-10.2) L 05/26/17 07:15 Phosphorus 3.50 mg/dL (2.5-4.5) 05/26/17 06:00 Magnesium 1.70 mg/dL (1.7-2.3) 05/26/17 06:00 Urine Creatinine 28.0 mg/dL (0.1-20.0) H 05/05/17 Unknown Urine Sodium 129 mmol/L 05/05/17 Unknown
[2017-05-26] MEDS: PEPCID IV SCH (10:44)
[2017-05-26] MEDS: ALBURX 25% (ALBUMIN) IV SCH (11:09)
[2017-05-26] MEDS ORDERED: MAGNESIUM SULFATE 2GM/50ML 2 GM/50 ML BAG IV ONE ×2 (14:00→19:00)
--- NOTE | 2017-05-26 14:41 | Progress Note ---
Assessment and Plan Assessment and plan: Patient took 34 minutes of critical care time. This required my direct attention because of increased risk of end organ damage. This included family consultation data review medical therapy. In coordination of care. The high probability of a clinically significant, sudden or life threatening deterioration of the [cardiac system and endocrine] system(s) required my full and direct attention, intervention and personal management. The aggregate critical care time was [33] minutes. This time is in addition to time spent performing reported procedures but includes the following: [x] Data Review and interpretation [x] Patient assessment and monitoring of vital signs [x] Documentation [x] Medication orders and management - Patient Problems (1) C. difficile colitis Current Visit: Yes Status: Acute Plan to address problem: Appears to be resolving now continue Flagyl. Patient had decreased bowel movements. Her lites remained stable. Continue for a total 14 days. (2) Acute renal insufficiency Current Visit: Yes Status: Acute Plan to address problem: Now chronic renal insufficiency acute on chronic renal insufficiency renal function appears to be improving somewhat holding off dialysis. Nephrology following. (3) Acute respiratory failure Current Visit: Yes Status: Acute Plan to address problem: Alert plan is to be extubated today tolerated weaning parameters well. (4) S/P laparotomy Current Visit: Yes Status: Acute Plan to address problem: Surgical site appears to be stable. Animal drainage. Artery following. Status post colectomy subtotal colectomy. We'll be able to discontinue NG tube if patient is extubated. Surgery following. Spoke with going according to plan. (5) Acute and chronic respiratory failure ([id number]) Current Visit: No Status: Acute Qualifiers: Respiratory failure complication: hypoxia and hypercapnia Qualified Code(s) : J96.21 - Acute and chronic respiratory failure with hypoxia; J96.22 - Acute and chronic respiratory failure with hypercapnia (6) COPD exacerbation Current Visit: No Status: Acute Plan to address problem: Intubated. Very difficult to extubate at this time. Any trach PEG at some point. (7) Sepsis Current Visit: No Status: Acute Plan to address problem: Severe sepsis improving. Menopenum discontinued today. (8) Anemia Current Visit: Yes Status: Acute (9) Anemia Current Visit: No Status: Chronic Qualifiers: Qualified Code(s): D63.8 - Anemia in other chronic diseases classified elsewhere Plan to address problem: Factorial secondary to chronic disease sepsis and surgery but loss. History Interval history: Son and daughter at bedside. Patient much more alert. Potential plans to be extubated today. Hospitalist Physical - Constitutional Vitals: Temp Pulse Resp BP Pulse Ox 96.1 F L 89 20 90/45 99 05/26/17 13:58 05/26/17 13:58 05/26/17 13:58 05/26/17 13:58 05/26/17 13:43 General appearance: Present: no acute distress, mild distress, well-nourished, other (intubatd and vent supported) - EENT Eyes: Present: PERRL, EOM intact ENT: hearing intact, clear oral mucosa, dentition normal, other (NG tube intubated) - Neck Neck: Present: supple, normal ROM - Respiratory Respiratory: bilateral: CTA - Cardiovascular Rhythm: regular - Extremities Extremities: no ischemia, pulses intact, pulses symmetrical Peripheral Pulses: within normal limits - Abdominal General gastrointestinal: tender (nondistended ), non-distended, hypoactive bowel sounds, other - Psychiatric Psychiatric: appropriate mood/affect - Neurologic Neurologic: CNII-XII intact Results - Labs CBC & Chem 7: 05/26/17 07:15 05/26/17 07:15 Labs: Laboratory Last Values WBC 21.0 K/mm3 (4.5-11.0) H 05/26/17 07:15 RBC 2.72 M/mm3 (3.65-5.03) L 05/26/17 07:15 Hgb 7.8 gm/dl (10.1-14.3) L 05/26/17 07:15 Hct 24.5 % (30.3-42.9) L 05/26/17 07:15 MCV 90 fl (79-97) 05/26/17 07:15 MCH 29 pg (28-32) 05/26/17 07:15 MCHC 32 % (30-34) 05/26/17 07:15 RDW 16.5 % (13.2-15.2) H 05/26/17 07:15 Plt Count 175 K/mm3 (140-440) 05/26/17 07:15 [place] % (Auto) % (0.0-7.3) 05/22/17 04:50 Eos % (Auto) % (0.0-4.3) 05/22/17 04:50 [place] # K/mm3 (0.0-0.8) 05/22/17 04:50 Eos # K/mm3 (0.0-0.4) 05/22/17 04:50 Baso # 0.0 K/mm3 (0.0-0.1) 05/22/17 04:50 Add Manual Diff Complete 05/26/17 07:15 Total Counted 100 05/26/17 07:15 Seg Neutrophils % Safety Instructor 05/24/17 07:16 Seg Neuts % (Manual) 88.0 % (40.0-70.0) H 05/26/17 07:15 Band Neutrophils % 1.0 % 05/26/17 07:15 Lymphocytes % (Manual) 6.0 % (13.4-35.0) L 05/26/17 07:15 Reactive Lymphs % (Man) 0 % 05/26/17 07:15 Monocytes % (Manual) 4.0 % (0.0-7.3) 05/26/17 07:15 Eosinophils % (Manual) 1.0 % (0.0-4.3) 05/26/17 07:15 Basophils % (Manual) 0 % (0.0-1.8) 05/26/17 07:15 Metamyelocytes % 0 % 05/26/17 07:15 Myelocytes % 0 % 05/26/17 07:15 Promyelocytes % 0 % 05/26/17 07:15 Blast Cells % 0 % 05/26/17 07:15 Nucleated RBC % 3.0 % (0.0-0.9) H 05/26/17 07:15 Seg Neutrophils # K/mm3 (1.8-7.7) 05/22/17 04:50 Seg Neutrophils # Man 18.5 K/mm3 (1.8-7.7) H 05/26/17 07:15 Band Neutrophils # 0.2 K/mm3 05/26/17 07:15 Lymphocytes # (Manual) 1.3 K/mm3 (1.2-5.4) 05/26/17 07:15 Abs React Lymphs (Man) 0.0 K/mm3 05/26/17 07:15 Monocytes # (Manual) 0.8 K/mm3 (0.0-0.8) 05/26/17 07:15 Eosinophils # (Manual) 0.2 K/mm3 (0.0-0.4) 05/26/17 07:15 Basophils # (Manual) 0.0 K/mm3 (0.0-0.1) 05/26/17 07:15 Metamyelocytes # 0.0 K/mm3 05/26/17 07:15 Myelocytes # 0.0 K/mm3 05/26/17 07:15 Promyelocytes # 0.0 K/mm3 05/26/17 07:15 Blast Cells # 0.0 K/mm3 05/26/17 07:15 WBC Morphology Not Reportable 05/26/17 07:15 Hypersegmented Neuts Not Reportable 05/26/17 07:15 Hyposegmented Neuts Not Reportable 05/26/17 07:15 Hypogranular Neuts Not Reportable 05/26/17 07:15 Smudge Cells Not Reportable 05/26/17 07:15 Toxic Granulation Not Reportable 05/26/17 07:15 Toxic Vacuolation Not Reportable 05/26/17 07:15 Dohle Bodies Not Reportable 05/26/17 07:15 Pelger-Huet Anomaly Not Reportable 05/26/17 07:15 Neisha Rods Not Reportable 05/26/17 07:15 Platelet Estimate Not Reportable 05/26/17 07:15 Clumped Platelets Not Reportable 05/26/17 07:15 Plt Clumps, EDTA Not Reportable 05/26/17 07:15 Large Platelets Not Reportable 05/26/17 07:15 Giant Platelets Not Reportable 05/26/17 07:15 Platelet Satelliting Not Reportable 05/26/17 07:15 Plt Morphology Comment Not Reportable 05/26/17 07:15 RBC Morphology Not Reportable 05/26/17 07:15 Dimorphic RBCs Not Reportable 05/26/17 07:15 Polychromasia Not Reportable 05/26/17 07:15 Hypochromasia 1+ 05/26/17 07:15 Poikilocytosis Not Reportable 05/26/17 07:15 Anisocytosis 2+ 05/26/17 07:15 Microcytosis Not Reportable 05/26/17 07:15 Macrocytosis Not Reportable 05/26/17 07:15 Spherocytes Not Reportable 05/26/17 07:15 Pappenheimer Bodies Not Reportable 05/26/17 07:15 Sickle Cells Not Reportable 05/26/17 07:15 Target Cells Few 05/26/17 07:15 Tear Drop Cells Not Reportable 05/26/17 07:15 Ovalocytes Not Reportable 05/26/17 07:15 Stomatocytes Few 05/21/17 05:20 Helmet Cells Not Reportable 05/26/17 07:15 [place] Bodies Not Reportable 05/26/17 07:15 [place] Rings Not Reportable 05/26/17 07:15 [place] Cells Not Reportable 05/26/17 07:15 Bite Cells Not Reportable 05/26/17 07:15 Crenated Cell Not Reportable 05/26/17 07:15 Elliptocytes Not Reportable 05/26/17 07:15 Acanthocytes (Spur) Not Reportable 05/26/17 07:15 Rouleaux Not Reportable 05/26/17 07:15 Hemoglobin C Crystals Not Reportable 05/26/17 07:15 Schistocytes Not Reportable 05/26/17 07:15 Malaria parasites Not Reportable 05/26/17 07:15 Herve Bodies Not Reportable 05/26/17 07:15 Hem Pathologist Commnt No 05/26/17 07:15 PT 21.3 Sec. (12.2-14.9) H 05/22/17 04:50 INR 1.75 (0.87-1.13) H 05/22/17 04:50 APTT 39.4 Sec. (24.2-36.6) H 05/22/17 04:50 D-Dimer 8441.57 ng/mlDDU (0-234) H 05/04/17 Unknown POC ABG pH 7.424 (7.35-7.45) 05/26/17 09:49 POC ABG pCO2 44.1 (35-45) 05/26/17 09:49 POC ABG pO2 89 (80-105) 05/26/17 09:49 POC ABG HCO3 28.9 05/26/17 09:49 POC ABG Total CO2 30 05/26/17 09:49 POC ABG O2 Sat 97 05/26/17 09:49 POC ABG Base Excess 4 05/26/17 09:49 FiO2 25 % 05/26/17 09:49 Sodium 142 mmol/L (137-145) 05/26/17 07:15 Potassium 4.2 mmol/L (3.6-5.0) 05/26/17 07:15 Chloride 103.8 mmol/L (98-107) 05/26/17 07:15 Carbon Dioxide 27 mmol/L (22-30) 05/26/17 07:15 Anion Gap 15 mmol/L 05/26/17 07:15 BUN 34 mg/dL (7-17) H 05/26/17 07:15 Creatinine 1.5 mg/dL (0.7-1.2) H 05/26/17 07:15 Estimated GFR 42 ml/min 05/26/17 07:15 BUN/Creatinine Ratio 23 % 05/26/17 07:15 Glucose 145 mg/dL (65-100) H 05/26/17 07:15 POC Glucose 143 (70-105) H 05/26/17 12:16 Lactic Acid 0.60 mmol/L (0.7-2.0) L 05/16/17 00:15 Calcium 8.2 mg/dL (8.4-10.2) L 05/26/17 07:15 Ionized Calcium 3.5 mg/dL (4.8-5.6) L 05/05/17 17:45 Phosphorus 3.50 mg/dL (2.5-4.5) 05/26/17 06:00 Magnesium 1.70 mg/dL (1.7-2.3) 05/26/17 06:00 Total Bilirubin 0.30 mg/dL (0.1-1.2) 05/26/17 07:15 AST 9 units/L (5-40) 05/26/17 07:15 ALT < 5 units/L (7-56) L 05/26/17 07:15 Alkaline Phosphatase 41 units/L (35-129) 05/26/17 07:15 Total Creatine Kinase 346 units/L (30-135) H 05/05/17 05:20 CK-MB (CK-2) 8.2 ng/mL (0.0-4.0) H 05/05/17 05:20 CK-MB (CK-2) Rel Index 2.3 (0-4) 05/05/17 05:20 Troponin T 0.027 ng/mL (0.00-0.029) 05/05/17 05:20 C-Reactive Protein 7.10 mg/dL (0.00-1.30) H 05/23/17 16:55 Total Protein 4.0 g/dL (6.3-8.2) L 05/26/17 07:15 Albumin 2.3 g/dL (3.9-5) L 05/26/17 07:15 Albumin/Globulin Ratio 1.4 % 05/26/17 07:15 Triglycerides 149 mg/dL (2-149) 05/04/17 18:55 Cholesterol 185 mg/dL (50-199) 05/04/17 18:55 LDL Cholesterol Direct 103 mg/dL (50-130) 05/04/17 18:55 HDL Cholesterol 53 mg/dL (40-59) 05/04/17 18:55 Cholesterol/HDL Ratio 3.49 % 05/04/17 18:55 TSH 1.780 mlU/mL (0.270-4.200) 05/04/17 18:39 Urine Color Yellow (Yellow) 05/19/17 18:04 Urine Turbidity Clear (Clear) 05/19/17 18:04 Urine pH 5.0 (5.0-7.0) 05/19/17 18:04 Ur Specific [place] 1.014 (1.003-1.030) 05/19/17 18:04 Urine Protein 30 mg/dl mg/dL (Negative) 05/19/17 18:04 Urine Glucose (UA) Neg mg/dL (Negative) 05/19/17 18:04 Urine Ketones Neg mg/dL (Negative) 05/19/17 18:04 Urine Blood Mod (Negative) 05/19/17 18:04 Urine Nitrite Neg (Negative) 05/19/17 18:04 Urine Bilirubin Neg (Negative) 05/19/17 18:04 Urine Urobilinogen < 2.0 mg/dL (<2.0) 05/19/17 18:04 Ur Leukocyte Esterase Lg (Negative) 05/19/17 18:04 Urine WBC (Auto) 78.0 /HPF (0.0-6.0) H 05/19/17 18:04 Urine RBC (Auto) 90.0 /HPF (0.0-6.0) 05/19/17 18:04 U Epithel Cells (Auto) < 1.0 /HPF (0-13.0) 05/19/17 18:04 Urine Bacteria (Auto) 2+ /HPF (Negative) 05/19/17 18:04 Amorphous Crystals Few 05/11/17 17:50 Hyaline Casts 3 /LPF 05/19/17 18:04 Granular Casts 1 /LPF 05/19/17 18:04 Urine Mucus Few /HPF 05/19/17 18:04 Ur Yeast w Hyphae Few /HPF 05/19/17 18:04 Urine Yeast (Budding) 3+ /HPF 05/19/17 18:04 Urine Creatinine 28.0 mg/dL (0.1-20.0) H 05/05/17 Unknown Urine Sodium 129 mmol/L 05/05/17 Unknown Urine Potassium 3.67 mmol/L 05/05/17 Unknown Urine Chloride 115.6 mmolL (110-250) 05/05/17 Unknown Salicylates 0.3 mg/dL (2.8-20.0) L 05/04/17 18:39 Urine Opiates Screen Presumptive negative 05/04/17 02:20 Urine Methadone Screen Presumptive negative 05/04/17 02:20 Acetaminophen < 15.0 ug/mL (10.0-30.0) 05/04/17 18:39 Ur Barbiturates Screen Presumptive negative 05/04/17 02:20 Ur Phencyclidine Scrn Presumptive negative 05/04/17 02:20 Ur Amphetamines Screen Presumptive negative 05/04/17 02:20 U Benzodiazepines Scrn Presumptive negative 05/04/17 02:20 Urine Cocaine Screen Presumptive negative 05/04/17 02:20 U Marijuana (THC) Screen Presumptive negative 05/04/17 02:20 Drugs of Abuse Note Disclamer 05/04/17 02:20 Plasma/Serum Alcohol < 0.01 gm% (0-0.07) 05/04/17 18:39 Hepatitis A IgM Ab Non-reactive (NonReactive) 05/20/17 17:49 Hep Bs Antigen Non-reactive (Negative) 05/20/17 17:49 Hep B Core IgM Ab Non-reactive (NonReactive) 05/20/17 17:49 Hepatitis C Antibody Non-reactive (NonReactive) 05/20/17 17:49 Miscellaneous Test Flexitest 1 H 05/17/17 12:20 Blood Type AB POSITIVE 05/26/17 10:50 Antibody Screen Negative 05/26/17 10:50 Crossmatch See Detail 05/26/17 10:50
[2017-05-26] MEDS: LEVOPHED 8 MG in NACL 0.9% 250ML 242 ML IV SCH (18:55)
[2017-05-26 19:54] LABS: Hematocrit 29.3 % (30.3-42.9); Hemoglobin 9.7 gm/dl (10.1-14.3); Mean Corpuscular HGB Conc 33 % (30-34); Mean Corpuscular Hemoglobin 29 pg (28-32); Mean Corpuscular Volume 88 fl (79-97); Platelet Count 176 K/mm3 (140-440); Red Blood Count 3.35 M/mm3 (3.65-5.03); Red Cell Distribution Width 17.8 % (13.2-15.2); White Blood Count 19.8 K/mm3 (4.5-11.0)
[2017-05-26] MEDS ORDERED: TPN ADULT 1,560 ML IV SCH (20:00)
[2017-05-26] MEDS ORDERED: INTRALIPID 20% 250 ML IV SCH (20:00)
[2017-05-26 20:33] LABS: Basophils % (Manual) 0 % (0.0-1.8); Blastocytes % (Manual) 0 %
[2017-05-26 20:34] LABS: Anisocytosis 2+; Diff Status Complete; Spherocytes Few; Target Cells Few
[2017-05-26] MEDS: BENADRYL IV PRN (22:26)
[2017-05-27] MEDS: NOVOLOG SUB-Q SCH ×4 (00:05→17:03)
[2017-05-27 06:24] LABS: Hematocrit 28.6 % (30.3-42.9); Hemoglobin 9.2 gm/dl (10.1-14.3); Mean Corpuscular HGB Conc 32 % (30-34); Mean Corpuscular Hemoglobin 28 pg (28-32); Mean Corpuscular Volume 87 fl (79-97); Platelet Count 184 K/mm3 (140-440); Red Cell Distribution Width 17.7 % (13.2-15.2)
[2017-05-27 06:38] LABS: White Blood Count 20.2 K/mm3 (4.5-11.0)
[2017-05-27 06:44] LABS: Phosphorous 4.1 mg/dL (2.5-4.5)
[2017-05-27 06:50] LABS: Calcium 8.1 mg/dL (8.4-10.2); Chloride 104.7 mmol/L (98-107); Potassium 4.5 mmol/L (3.6-5.0)
[2017-05-27] MEDS: FLAGYL 500 MG/100 ML 500 MG/100 ML BAG IV SCH ×3 (07:11→17:12)
[2017-05-27] MEDS: ALBURX 25% (ALBUMIN) IV SCH (07:32)
--- NOTE | 2017-05-27 09:05 | Progress Note ---
Assessment and Plan Impression * Acute renal failure. Most likely secondary to ATN * Respiratory failure * Septic shock * Anemia * C. difficile colitis * COPD Recommendations * Status post initiation of hemodialysis on 05/18/2017 * Her serum creatinine noted to have improved. She is responding well to diuretics. added IV albumin with Lasix. * Last hemodialysis was on 05/23/2017. Shall hold her dialysis for now . * Status post colectomy 05/21/17 * Avoid Nephrotoxins * Adjust meds for GFR less than 10 * Her renal function seems to be recovering at this time * continue daily lytes, remove catheter if stable end of week Subjective Date of service: 05/27/17 Principal diagnosis: Septic shock,C. diff colitis Interval history: resting well in bed today Objective - Exam Narrative Exam: General appearance: well-developed, well-nourished EENT: ATNC Neck: no JVD Respiratory: Present: Decreased Breath Sounds Cardiology: regular, S1S2 Gastrointestinal: hypoactive bowel sounds, no tenderness, distended Integumentary: no rash Neurologic: reflexes 2+ and symmetric Musculoskeletal: other (trace edema) Psychiatric: cooperative - Vital Signs Vital signs: Vital Signs - 12hr 05/26/17 05/26/17 05/26/17 21:15 21:24 21:26 Temperature Pulse Rate 89 Pulse Rate [ 91 H Anterior Bilateral Throughout] Pulse Rate [ From Monitor] Respiratory 25 H Rate Respiratory 22 Rate [Anterior Bilateral Throughout] Blood Pressure 110/57 O2 Sat by Pulse 98 98 Oximetry 05/26/17 05/26/17 05/26/17 21:30 21:36 21:45 Temperature Pulse Rate 89 84 Pulse Rate [ 87 Anterior Bilateral Throughout] Pulse Rate [ From Monitor] Respiratory 22 20 Rate Respiratory 25 H Rate [Anterior Bilateral Throughout] Blood Pressure 105/51 98/49 O2 Sat by Pulse 93 99 Oximetry 05/26/17 05/26/17 05/26/17 22:00 22:15 22:30 Temperature Pulse Rate 93 H 84 108 H Pulse Rate [ Anterior Bilateral Throughout] Pulse Rate [ From Monitor] Respiratory 25 H 21 20 Rate Respiratory Rate [Anterior Bilateral Throughout] Blood Pressure 121/69 116/58 113/71 O2 Sat by Pulse 96 96 98 Oximetry 05/26/17 05/26/17 05/26/17 22:45 23:00 23:15 Temperature Pulse Rate 98 H 105 H 97 H Pulse Rate [ Anterior Bilateral Throughout] Pulse Rate [ From Monitor] Respiratory 21 17 22 Rate Respiratory Rate [Anterior Bilateral Throughout] Blood Pressure 118/69 123/72 122/71 O2 Sat by Pulse 98 98 99 Oximetry 05/26/17 05/26/17 05/26/17 23:28 23:30 23:45 Temperature 97.9 F Pulse Rate 77 77 Pulse Rate [ Anterior Bilateral Throughout] Pulse Rate [ From Monitor] Respiratory 19 19 Rate Respiratory Rate [Anterior Bilateral Throughout] Blood Pressure 117/63 110/53 O2 Sat by Pulse 99 100 Oximetry 05/27/17 05/27/17 05/27/17 00:00 00:15 00:30 Temperature Pulse Rate 87 83 81 Pulse Rate [ Anterior Bilateral Throughout] Pulse Rate [ From Monitor] Respiratory 17 18 19 Rate Respiratory Rate [Anterior Bilateral Throughout] Blood Pressure 109/59 104/52 106/56 O2 Sat by Pulse 99 100 Oximetry 05/27/17 05/27/17 05/27/17 00:45 01:00 01:15 Temperature Pulse Rate 77 76 83 Pulse Rate [ Anterior Bilateral Throughout] Pulse Rate [ From Monitor] Respiratory 18 17 17 Rate Respiratory Rate [Anterior Bilateral Throughout] Blood Pressure 104/49 96/59 97/50 O2 Sat by Pulse 99 98 99 Oximetry 05/27/17 05/27/17 05/27/17 01:30 01:45 02:00 Temperature Pulse Rate 84 72 76 Pulse Rate [ Anterior Bilateral Throughout] Pulse Rate [ From Monitor] Respiratory 15 18 17 Rate Respiratory Rate [Anterior Bilateral Throughout] Blood Pressure 106/58 104/50 113/56 O2 Sat by Pulse 98 99 99 Oximetry 05/27/17 05/27/17 05/27/17 02:15 02:30 02:45 Temperature Pulse Rate 90 101 H 85 Pulse Rate [ Anterior Bilateral Throughout] Pulse Rate [ From Monitor] Respiratory 19 18 20 Rate Respiratory Rate [Anterior Bilateral Throughout] Blood Pressure 125/56 117/47 113/57 O2 Sat by Pulse 97 97 97 Oximetry 05/27/17 05/27/17 05/27/17 03:00 03:15 03:30 Temperature Pulse Rate 94 H 81 77 Pulse Rate [ Anterior Bilateral Throughout] Pulse Rate [ From Monitor] Respiratory 26 H 19 19 Rate Respiratory Rate [Anterior Bilateral Throughout] Blood Pressure 114/63 114/63 118/50 O2 Sat by Pulse 96 99 96 Oximetry 05/27/17 05/27/17 05/27/17 03:45 03:55 04:00 Temperature 98.7 F Pulse Rate 74 77 Pulse Rate [ Anterior Bilateral Throughout] Pulse Rate [ From Monitor] Respiratory 20 19 Rate Respiratory Rate [Anterior Bilateral Throughout] Blood Pressure 116/59 106/54 O2 Sat by Pulse 99 99 Oximetry 05/27/17 05/27/17 05/27/17 04:15 04:30 04:45 Temperature Pulse Rate 89 76 74 Pulse Rate [ Anterior Bilateral Throughout] Pulse Rate [ From Monitor] Respiratory 20 20 20 Rate Respiratory Rate [Anterior Bilateral Throughout] Blood Pressure 114/59 104/56 112/53 O2 Sat by Pulse 99 100 99 Oximetry 05/27/17 05/27/17 05/27/17 05:00 05:15 05:30 Temperature Pulse Rate 84 84 74 Pulse Rate [ Anterior Bilateral Throughout] Pulse Rate [ From Monitor] Respiratory 18 20 18 Rate Respiratory Rate [Anterior Bilateral Throughout] Blood Pressure 106/57 113/59 115/56 O2 Sat by Pulse 99 98 99 Oximetry 05/27/17 05/27/17 05/27/17 05:45 06:01 06:15 Temperature Pulse Rate 77 97 H 112 H Pulse Rate [ Anterior Bilateral Throughout] Pulse Rate [ From Monitor] Respiratory 18 17 18 Rate Respiratory Rate [Anterior Bilateral Throughout] Blood Pressure 118/53 127/55 122/61 O2 Sat by Pulse 100 99 99 Oximetry 05/27/17 05/27/17 05/27/17 06:30 06:45 07:00 Temperature Pulse Rate 83 81 84 Pulse Rate [ Anterior Bilateral Throughout] Pulse Rate [ From Monitor] Respiratory 21 17 18 Rate Respiratory Rate [Anterior Bilateral Throughout] Blood Pressure 107/68 105/61 113/66 O2 Sat by Pulse 98 97 Oximetry 05/27/17 05/27/17 05/27/17 07:15 07:31 07:45 Temperature Pulse Rate 84 93 H 81 Pulse Rate [ Anterior Bilateral Throughout] Pulse Rate [ From Monitor] Respiratory 18 19 15 Rate Respiratory Rate [Anterior Bilateral Throughout] Blood Pressure 103/61 111/70 114/62 O2 Sat by Pulse 97 100 99 Oximetry 05/27/17 08:00 Temperature Pulse Rate 80 Pulse Rate [ Anterior Bilateral Throughout] Pulse Rate [ 82 From Monitor] Respiratory 19 Rate Respiratory Rate [Anterior Bilateral Throughout] Blood Pressure 118/60 O2 Sat by Pulse 100 Oximetry - Lab 05/27/17 06:05 05/27/17 06:05 Most recent lab results Calcium 8.1 mg/dL (8.4-10.2) L 05/27/17 06:05 Phosphorus 4.10 mg/dL (2.5-4.5) 05/27/17 06:05 Magnesium 2.00 mg/dL (1.7-2.3) 05/27/17 06:05 Urine Creatinine 28.0 mg/dL (0.1-20.0) H 05/05/17 Unknown Urine Sodium 129 mmol/L 05/05/17 Unknown
[2017-05-27] MEDS: PULMICORT IH SCH ×2 (09:13→20:45)
[2017-05-27] MEDS: DUONEB *Not for PRN Use IH SCH ×3 (09:14→20:45)
[2017-05-27] MEDS: BROVANA NEBU IH SCH ×2 (09:14→20:45)
[2017-05-27] MEDS: PEPCID IV SCH (09:24)
--- NOTE | 2017-05-27 09:32 | Progress Note ---
Assessment and Plan 61 y/o female with severe C. Diff colitis, sepsis with shock and now encephalopathy, likely metabolic requiring mechanical ventilation. 1. Wean FiO2 as tolerated. 2. Levophed has been weaned off 3. ABx per ID 4. NG out, will ask surgery about feeding patient today. For now continue TPN CCT 31 Subjective Date of service: 05/27/17 Principal diagnosis: Septic shock,C. diff colitis Interval history: No acute events. Successful extubation on yesterday. Stable. Daughter at bedside. NG tube out as well. Objective Vital Signs - 12hr 05/26/17 05/26/17 05/26/17 21:30 21:36 21:45 Temperature Pulse Rate 89 84 Pulse Rate [ 87 Anterior Bilateral Throughout] Pulse Rate [ From Monitor] Respiratory 22 20 Rate Respiratory 25 H Rate [Anterior Bilateral Throughout] Blood Pressure 105/51 98/49 O2 Sat by Pulse 93 99 Oximetry 05/26/17 05/26/17 05/26/17 22:00 22:15 22:30 Temperature Pulse Rate 93 H 84 108 H Pulse Rate [ Anterior Bilateral Throughout] Pulse Rate [ From Monitor] Respiratory 25 H 21 20 Rate Respiratory Rate [Anterior Bilateral Throughout] Blood Pressure 121/69 116/58 113/71 O2 Sat by Pulse 96 96 98 Oximetry 05/26/17 05/26/17 05/26/17 22:45 23:00 23:15 Temperature Pulse Rate 98 H 105 H 97 H Pulse Rate [ Anterior Bilateral Throughout] Pulse Rate [ From Monitor] Respiratory 21 17 22 Rate Respiratory Rate [Anterior Bilateral Throughout] Blood Pressure 118/69 123/72 122/71 O2 Sat by Pulse 98 98 99 Oximetry 05/26/17 05/26/17 05/26/17 23:28 23:30 23:45 Temperature 97.9 F Pulse Rate 77 77 Pulse Rate [ Anterior Bilateral Throughout] Pulse Rate [ From Monitor] Respiratory 19 19 Rate Respiratory Rate [Anterior Bilateral Throughout] Blood Pressure 117/63 110/53 O2 Sat by Pulse 99 100 Oximetry 05/27/17 05/27/17 05/27/17 00:00 00:15 00:30 Temperature Pulse Rate 87 83 81 Pulse Rate [ Anterior Bilateral Throughout] Pulse Rate [ From Monitor] Respiratory 17 18 19 Rate Respiratory Rate [Anterior Bilateral Throughout] Blood Pressure 109/59 104/52 106/56 O2 Sat by Pulse 99 100 Oximetry 05/27/17 05/27/1705/27/17 00:45 01:00 01:15 Temperature Pulse Rate 77 76 83 Pulse Rate [ Anterior Bilateral Throughout] Pulse Rate [ From Monitor] Respiratory 18 17 17 Rate Respiratory Rate [Anterior Bilateral Throughout] Blood Pressure 104/49 96/59 97/50 O2 Sat by Pulse 99 98 99 Oximetry 05/27/17 05/27/17 05/27/17 01:30 01:45 02:00 Temperature Pulse Rate 84 72 76 Pulse Rate [ Anterior Bilateral Throughout] Pulse Rate [ From Monitor] Respiratory 15 18 17 Rate Respiratory Rate [Anterior Bilateral Throughout] Blood Pressure 106/58 104/50 113/56 O2 Sat by Pulse 98 99 99 Oximetry 05/27/17 05/27/17 05/27/17 02:15 02:30 02:45 Temperature Pulse Rate 90 101 H 85 Pulse Rate [ Anterior Bilateral Throughout] Pulse Rate [ From Monitor] Respiratory 19 18 20 Rate Respiratory Rate [Anterior Bilateral Throughout] Blood Pressure 125/56 117/47 113/57 O2 Sat by Pulse 97 97 97 Oximetry 05/27/17 05/27/17 05/27/17 03:00 03:15 03:30 Temperature Pulse Rate 94 H 81 77 Pulse Rate [ Anterior Bilateral Throughout] Pulse Rate [ From Monitor] Respiratory 26 H 19 19 Rate Respiratory Rate [Anterior Bilateral Throughout] Blood Pressure 114/63 114/63 118/50 O2 Sat by Pulse 96 99 96 Oximetry 05/27/17 05/27/17 05/27/17 03:45 03:55 04:00 Temperature 98.7 F Pulse Rate 74 77 Pulse Rate [ Anterior Bilateral Throughout] Pulse Rate [ From Monitor] Respiratory 20 19 Rate Respiratory Rate [Anterior Bilateral Throughout] Blood Pressure 116/59 106/54 O2 Sat by Pulse 99 99 Oximetry 05/27/17 05/27/17 05/27/17 04:15 04:30 04:45 Temperature Pulse Rate 89 76 74 Pulse Rate [ Anterior Bilateral Throughout] Pulse Rate [ From Monitor] Respiratory 20 20 20 Rate Respiratory Rate [Anterior Bilateral Throughout] Blood Pressure 114/59 104/56 112/53 O2 Sat by Pulse 99 100 99 Oximetry 05/27/17 05/27/17 05/27/17 05:00 05:15 05:30 Temperature Pulse Rate 84 84 74 Pulse Rate [ Anterior Bilateral Throughout] Pulse Rate [ From Monitor] Respiratory 18 20 18 Rate Respiratory Rate [Anterior Bilateral Throughout] Blood Pressure 106/57 113/59 115/56 O2 Sat by Pulse 99 98 99 Oximetry 05/27/17 05/27/17 05/27/17 05:45 06:01 06:15 Temperature Pulse Rate 77 97 H 112 H Pulse Rate [ Anterior Bilateral Throughout] Pulse Rate [ From Monitor] Respiratory 18 17 18 Rate Respiratory Rate [Anterior Bilateral Throughout] Blood Pressure 118/53 127/55 122/61 O2 Sat by Pulse 100 99 99 Oximetry 05/27/17 05/27/17 05/27/17 06:30 06:45 07:00 Temperature Pulse Rate 83 81 84 Pulse Rate [ Anterior Bilateral Throughout] Pulse Rate [ From Monitor] Respiratory 21 17 18 Rate Respiratory Rate [Anterior Bilateral Throughout] Blood Pressure 107/68 105/61 113/66 O2 Sat by Pulse 98 97 Oximetry 05/27/17 05/27/17 05/27/17 07:15 07:31 07:45 Temperature Pulse Rate 84 93 H 81 Pulse Rate [ Anterior Bilateral Throughout] Pulse Rate [ From Monitor] Respiratory 18 19 15 Rate Respiratory Rate [Anterior Bilateral Throughout] Blood Pressure 103/61 111/70 114/62 O2 Sat by Pulse 97 100 99 Oximetry 05/27/17 05/27/17 05/27/17 08:00 08:15 08:30 Temperature Pulse Rate 80 77 86 Pulse Rate [ Anterior Bilateral Throughout] Pulse Rate [ 82 From Monitor] Respiratory 19 16 17 Rate Respiratory Rate [Anterior Bilateral Throughout] Blood Pressure 118/60 118/60 113/59 O2 Sat by Pulse 100 100 100 Oximetry 05/27/17 05/27/17 05/27/17 08:45 09:00 09:12 Temperature Pulse Rate 77 89 Pulse Rate [ Anterior Bilateral Throughout] Pulse Rate [ From Monitor] Respiratory 22 19 Rate Respiratory Rate [Anterior Bilateral Throughout] Blood Pressure 110/60 116/54 O2 Sat by Pulse 100 99 99 Oximetry 05/27/17 09:14 Temperature Pulse Rate Pulse Rate [ 86 Anterior Bilateral Throughout] Pulse Rate [ From Monitor] Respiratory Rate Respiratory 20 Rate [Anterior Bilateral Throughout] Blood Pressure O2 Sat by Pulse Oximetry Constitutional: no acute distress, alert, other (critically ill on vent) Eyes: non-icteric ENT: oropharynx moist Neck: supple Effort: normal Ascultation: Bilateral: clear (anterior), diminished breath sounds Percussion: Bilateral: not dull Cardiovascular: regular rate and rhythm (no mrg) Gastrointestinal: hypoactive bowel sounds, tender, other (distended, ostomy looks good with some liquid stool in bag, brown + old blood) Integumentary: normal Extremities: no cyanosis, pink and warm, anasarca (1+ bilateral LE edema) Neurologic: normal mental status, non-focal exam, pupils equal and round, CN II- XII normal Psychiatric: mood appropriate, affect normal CBC and BMP: 05/27/17 06:05 05/27/17 06:05 ABG, PT/INR, D-dimer: ABG POC ABG pH 7.424 (7.35-7.45) 05/26/17 09:49 POC ABG pCO2 44.1 (35-45) 05/26/17 09:49 POC ABG pO2 89 (80-105) 05/26/17 09:49 POC ABG HCO3 28.9 05/26/17 09:49 POC ABG Total CO2 30 05/26/17 09:49 POC ABG O2 Sat 97 05/26/17 09:49 PT/INR, D-dimer PT 21.3 Sec. (12.2-14.9) H 05/22/17 04:50 INR 1.75 (0.87-1.13) H 05/22/17 04:50 D-Dimer 8441.57 ng/mlDDU (0-234) H 05/04/17 Unknown Abnormal lab findings: Abnormal Labs 05/04/17 05/04/17 05/04/17 02:20 18:39 18:39 WBC 24.3 H RBC Hgb Hct RDW 16.4 H Plt Count 658 H Seg Neuts % (Manual) 94.5 H Lymphocytes % (Manual) 2.5 L Monocytes % (Manual) Nucleated RBC % Seg Neutrophils # Man 23.0 H Lymphocytes # (Manual) 0.6 L Monocytes # (Manual) Eosinophils # (Manual) PT INR APTT D-Dimer POC ABG pH POC ABG pCO2 POC ABG pO2 Sodium Potassium 3.2 L Chloride 92.6 L Carbon Dioxide 14 L BUN 66 H Creatinine 6.5 H Glucose POC Glucose Lactic Acid Calcium 7.5 L Ionized Calcium Phosphorus Magnesium ALT 5 L Alkaline Phosphatase 32 L Total Creatine Kinase CK-MB (CK-2) Troponin T C-Reactive Protein Total Protein 5.4 L Albumin 3.0 L Urine WBC (Auto) 100.0 H Urine Creatinine Salicylates Miscellaneous Test Crossmatch 05/04/17 05/04/17 05/04/17 18:39 18:55 Unknown WBC RBC Hgb Hct RDW Plt Count Seg Neuts % (Manual) Lymphocytes % (Manual) Monocytes % (Manual) Nucleated RBC % Seg Neutrophils # Man Lymphocytes # (Manual) Monocytes # (Manual) Eosinophils # (Manual) PT INR APTT D-Dimer POC ABG pH POC ABG pCO2 POC ABG pO2 Sodium Potassium Chloride Carbon Dioxide BUN Creatinine Glucose POC Glucose Lactic Acid 0.40 L Calcium Ionized Calcium Phosphorus Magnesium ALT Alkaline Phosphatase Total Creatine Kinase 155 H CK-MB (CK-2) 4.5 H Troponin T 0.033 H C-Reactive Protein Total Protein Albumin Urine WBC (Auto) Urine Creatinine Salicylates 0.3 L Miscellaneous Test Crossmatch 05/04/17 05/04/17 05/04/17 Unknown Unknown Unknown WBC RBC Hgb Hct RDW Plt Count Seg Neuts % (Manual) Lymphocytes % (Manual) Monocytes % (Manual) Nucleated RBC % Seg Neutrophils # Man Lymphocytes # (Manual) Monocytes # (Manual) Eosinophils # (Manual) PT INR APTT D-Dimer 8441.57 H POC ABG pH POC ABG pCO2 POC ABG pO2 Sodium Potassium Chloride Carbon Dioxide BUN Creatinine Glucose POC Glucose Lactic Acid 0.40 L Calcium Ionized Calcium Phosphorus Magnesium ALT Alkaline Phosphatase Total Creatine Kinase 246 H CK-MB (CK-2) 6.2 H Troponin T C-Reactive Protein Total Protein Albumin Urine WBC (Auto) Urine Creatinine Salicylates Miscellaneous Test Crossmatch 05/05/17 05/05/17 05/05/17 05:20 05:20 05:20 WBC 33.9 H RBC 3.39 L Hgb 9.3 L Hct RDW 16.7 H Plt Count 712 H Seg Neuts % (Manual) 91.0 H Lymphocytes % (Manual) 1.0 L Monocytes % (Manual) Nucleated RBC % Seg Neutrophils # Man 30.8 H Lymphocytes # (Manual) 0.3 L Monocytes # (Manual) 1.5 H Eosinophils # (Manual) PT INR APTT D-Dimer POC ABG pH POC ABG pCO2 POC ABG pO2 Sodium Potassium Chloride Carbon Dioxide 9 L* BUN 53 H Creatinine 5.4 H Glucose POC Glucose Lactic Acid Calcium 6.1 L D Ionized Calcium Phosphorus Magnesium ALT Alkaline Phosphatase Total Creatine Kinase 346 H CK-MB (CK-2) 8.2 H Troponin T C-Reactive Protein Total Protein Albumin Urine WBC (Auto) Urine Creatinine Salicylates Miscellaneous Test Crossmatch 05/05/17 05/05/17 05/05/17 10:43 17:45 17:45 WBC RBC Hgb 8.8 L Hct RDW Plt Count Seg Neuts % (Manual) Lymphocytes % (Manual) Monocytes % (Manual) Nucleated RBC % Seg Neutrophils # Man Lymphocytes # (Manual) Monocytes # (Manual) Eosinophils # (Manual) PT INR APTT D-Dimer POC ABG pH 6.872 L POC ABG pCO2 POC ABG pO2 120 H Sodium Potassium Chloride Carbon Dioxide BUN Creatinine Glucose POC Glucose Lactic Acid Calcium Ionized Calcium 3.5 L Phosphorus Magnesium ALT Alkaline Phosphatase Total Creatine Kinase CK-MB (CK-2) Troponin T C-Reactive Protein Total Protein Albumin Urine WBC (Auto) Urine Creatinine Salicylates Miscellaneous Test Crossmatch 05/05/17 05/05/17 05/05/17 17:45 20:58 Unknown WBC RBC Hgb 9.0 L Hct 29.8 L RDW Plt Count Seg Neuts % (Manual) Lymphocytes % (Manual) Monocytes % (Manual) Nucleated RBC % Seg Neutrophils # Man Lymphocytes # (Manual) Monocytes # (Manual) Eosinophils # (Manual) PT INR APTT D-Dimer POC ABG pH POC ABG pCO2 POC ABG pO2 Sodium Potassium Chloride Carbon Dioxide BUN Creatinine Glucose POC Glucose Lactic Acid Calcium Ionized Calcium Phosphorus 6.20 H Magnesium 1.20 L ALT Alkaline Phosphatase Total Creatine Kinase CK-MB (CK-2) Troponin T C-Reactive Protein Total Protein Albumin Urine WBC (Auto) Urine Creatinine 28.0 H Salicylates Miscellaneous Test Crossmatch 05/06/17 05/06/17 05/06/17 05:09 05:23 07:55 WBC RBC Hgb Hct RDW Plt Count Seg Neuts % (Manual) Lymphocytes % (Manual) Monocytes % (Manual) Nucleated RBC % Seg Neutrophils # Man Lymphocytes # (Manual) Monocytes # (Manual) Eosinophils # (Manual) PT INR APTT D-Dimer POC ABG pH 7.029 L 7.060 L POC ABG pCO2 54.8 H 48.6 H POC ABG pO2 74 L 43 L Sodium Potassium 3.5 L Chloride Carbon Dioxide 18 L D BUN 44 H Creatinine 3.5 H Glucose 252 H POC Glucose Lactic Acid Calcium 5.8 L* Ionized Calcium Phosphorus Magnesium ALT Alkaline Phosphatase Total Creatine Kinase CK-MB (CK-2) Troponin T C-Reactive Protein Total Protein Albumin Urine WBC (Auto) Urine Creatinine Salicylates Miscellaneous Test Crossmatch 05/06/17 05/06/17 05/06/17 07:55 15:28 17:30 WBC RBC Hgb Hct RDW Plt Count Seg Neuts % (Manual) Lymphocytes % (Manual) Monocytes % (Manual) Nucleated RBC % Seg Neutrophils # Man Lymphocytes # (Manual) Monocytes # (Manual) Eosinophils # (Manual) PT INR APTT D-Dimer POC ABG pH 7.066 L POC ABG pCO2 80.9 H POC ABG pO2 65 L Sodium Potassium Chloride Carbon Dioxide BUN Creatinine Glucose POC Glucose Lactic Acid Calcium Ionized Calcium Phosphorus Magnesium ALT Alkaline Phosphatase Total Creatine Kinase CK-MB (CK-2) Troponin T C-Reactive Protein 14.50 H Total Protein Albumin Urine WBC (Auto) Urine Creatinine Salicylates Miscellaneous Test Flexitest 1 H Crossmatch 05/06/17 05/06/17 05/07/17 17:30 Unknown 10:18 WBC 39.2 H 32.9 H RBC 3.27 L Hgb 9.3 L Hct 30.2 L RDW 16.4 H 17.0 H Plt Count 645 H 467 H Seg Neuts % (Manual) Lymphocytes % (Manual) 11.0 L Monocytes % (Manual) Nucleated RBC % Seg Neutrophils # Man 21.2 H Lymphocytes # (Manual) Monocytes # (Manual) 2.0 H Eosinophils # (Manual) PT INR APTT D-Dimer POC ABG pH POC ABG pCO2 POC ABG pO2 Sodium Potassium 3.4 L Chloride Carbon Dioxide BUN 41 H Creatinine 3.2 H Glucose 265 H POC Glucose Lactic Acid Calcium 6.7 L D Ionized Calcium Phosphorus Magnesium ALT Alkaline Phosphatase Total Creatine Kinase CK-MB (CK-2) Troponin T C-Reactive Protein Total Protein Albumin Urine WBC (Auto) Urine Creatinine Salicylates Miscellaneous Test Crossmatch 05/07/17 05/07/17 05/08/17 11:32 12:36 05:45 WBC 31.1 H RBC 3.41 L Hgb 9.8 L Hct RDW 16.9 H Plt Count Seg Neuts % (Manual) 96.0 H Lymphocytes % (Manual) 1.0 L Monocytes % (Manual) Nucleated RBC % Seg Neutrophils # Man 29.9 H Lymphocytes # (Manual) 0.3 L Monocytes # (Manual) Eosinophils # (Manual) PT INR APTT D-Dimer POC ABG pH 7.290 L POC ABG pCO2 48.3 H POC ABG pO2 51 L Sodium 146 H Potassium 3.1 L Chloride 109.2 H Carbon Dioxide 20 L BUN 38 H Creatinine 2.7 H Glucose 213 H POC Glucose Lactic Acid Calcium 6.6 L Ionized Calcium Phosphorus Magnesium ALT Alkaline Phosphatase Total Creatine Kinase CK-MB (CK-2) Troponin T C-Reactive Protein Total Protein Albumin Urine WBC (Auto) Urine Creatinine Salicylates Miscellaneous Test Crossmatch 05/08/17 05/08/17 05/09/17 05:45 18:55 04:05 WBC 26.1 H RBC Hgb Hct RDW 17.6 H Plt Count Seg Neuts % (Manual) Lymphocytes % (Manual) 5.0 L Monocytes % (Manual) Nucleated RBC % Seg Neutrophils # Man 16.7 H Lymphocytes # (Manual) Monocytes # (Manual) Eosinophils # (Manual) PT INR APTT D-Dimer POC ABG pH POC ABG pCO2 POC ABG pO2 Sodium 150 H Potassium Chloride 115.4 H 112.2 H Carbon Dioxide 20 L 18 L BUN 39 H 45 H Creatinine 2.4 H 2.3 H Glucose 160 H 219 H POC Glucose Lactic Acid Calcium 6.6 L 7.2 L Ionized Calcium Phosphorus Magnesium 1.40 L ALT 6 L Alkaline Phosphatase Total Creatine Kinase CK-MB (CK-2) Troponin T C-Reactive Protein Total Protein 4.1 L D Albumin 2.0 L Urine WBC (Auto) Urine Creatinine Salicylates Miscellaneous Test Crossmatch 05/09/17 05/09/17 05/09/17 04:05 05:15 05:45 WBC RBC Hgb Hct RDW Plt Count Seg Neuts % (Manual) Lymphocytes % (Manual) Monocytes % (Manual) Nucleated RBC % Seg Neutrophils # Man Lymphocytes # (Manual) Monocytes # (Manual) Eosinophils # (Manual) PT INR APTT D-Dimer POC ABG pH POC ABG pCO2 POC ABG pO2 Sodium 130 L D Potassium 3.4 L D Chloride 94.6 L Carbon Dioxide 19 L BUN 39 H Creatinine 2.1 H Glucose 549 H* 189 H POC Glucose 181 H Lactic Acid Calcium 6.6 L Ionized Calcium Phosphorus Magnesium ALT 6 L Alkaline Phosphatase 31 L Total Creatine Kinase CK-MB (CK-2) Troponin T C-Reactive Protein Total Protein 3.5 L Albumin 2.0 L Urine WBC (Auto) Urine Creatinine Salicylates Miscellaneous Test Crossmatch 05/09/17 05/09/17 05/09/17 08:03 11:08 16:15 WBC RBC Hgb Hct RDW Plt Count Seg Neuts % (Manual) Lymphocytes % (Manual) Monocytes % (Manual) Nucleated RBC % Seg Neutrophils # Man Lymphocytes # (Manual) Monocytes # (Manual) Eosinophils # (Manual) PT INR APTT D-Dimer POC ABG pH POC ABG pCO2 POC ABG pO2 Sodium Potassium Chloride 107.8 H Carbon Dioxide 21 L BUN 43 H Creatinine 2.4 H Glucose 195 H POC Glucose 299 H 111 H Lactic Acid Calcium 7.1 L Ionized Calcium Phosphorus Magnesium ALT Alkaline Phosphatase Total Creatine Kinase CK-MB (CK-2) Troponin T C-Reactive Protein Total Protein 3.9 L Albumin 2.3 L Urine WBC (Auto) Urine Creatinine Salicylates Miscellaneous Test Crossmatch 05/09/17 05/10/17 05/10/17 23:05 05:00 05:00 WBC 20.9 H RBC 3.53 L Hgb Hct RDW 17.3 H Plt Count Seg Neuts % (Manual) 72.0 H Lymphocytes % (Manual) 8.0 L Monocytes % (Manual) Nucleated RBC % Seg Neutrophils # Man 15.0 H Lymphocytes # (Manual) Monocytes # (Manual) Eosinophils # (Manual) PT INR APTT D-Dimer POC ABG pH POC ABG pCO2 POC ABG pO2 Sodium 135 L D Potassium 3.2 L Chloride Carbon Dioxide 21 L BUN 45 H Creatinine 2.2 H Glucose 308 H POC Glucose 336 H Lactic Acid Calcium 7.1 L Ionized Calcium Phosphorus Magnesium ALT 5 L Alkaline Phosphatase 30 L Total Creatine Kinase CK-MB (CK-2) Troponin T C-Reactive Protein Total Protein 3.8 L Albumin 2.1 L Urine WBC (Auto) Urine Creatinine Salicylates Miscellaneous Test Crossmatch 05/10/17 05/10/17 05/10/17 07:28 11:36 16:03 WBC RBC Hgb Hct RDW Plt Count Seg Neuts % (Manual) Lymphocytes % (Manual) Monocytes % (Manual) Nucleated RBC % Seg Neutrophils # Man Lymphocytes # (Manual) Monocytes # (Manual) Eosinophils # (Manual) PT INR APTT D-Dimer POC ABG pH POC ABG pCO2 POC ABG pO2 Sodium Potassium Chloride Carbon Dioxide BUN Creatinine Glucose POC Glucose 154 H 184 H 162 H Lactic Acid Calcium Ionized Calcium Phosphorus Magnesium ALT Alkaline Phosphatase Total Creatine Kinase CK-MB (CK-2) Troponin T C-Reactive Protein Total Protein Albumin Urine WBC (Auto) Urine Creatinine Salicylates Miscellaneous Test Crossmatch 05/10/17 05/11/17 05/11/17 21:13 06:50 06:50 WBC 24.4 H RBC Hgb Hct RDW 17.4 H Plt Count Seg Neuts % (Manual) Lymphocytes % (Manual) 5.0 L Monocytes % (Manual) Nucleated RBC % Seg Neutrophils # Man 16.3 H Lymphocytes # (Manual) Monocytes # (Manual) 1.0 H Eosinophils # (Manual) PT INR APTT D-Dimer POC ABG pH POC ABG pCO2 POC ABG pO2 Sodium Potassium 3.4 L Chloride Carbon Dioxide BUN 50 H Creatinine 2.8 H Glucose 131 H POC Glucose 188 H Lactic Acid Calcium 7.6 L Ionized Calcium Phosphorus Magnesium ALT < 5 L Alkaline Phosphatase 25 L Total Creatine Kinase CK-MB (CK-2) Troponin T C-Reactive Protein Total Protein 3.6 L Albumin 2.0 L Urine WBC (Auto) Urine Creatinine Salicylates Miscellaneous Test Crossmatch 05/11/17 05/11/17 05/11/17 09:33 11:45 15:46 WBC RBC Hgb Hct RDW Plt Count Seg Neuts % (Manual) Lymphocytes % (Manual) Monocytes % (Manual) Nucleated RBC % Seg Neutrophils # Man Lymphocytes # (Manual) Monocytes # (Manual) Eosinophils # (Manual) PT INR APTT D-Dimer POC ABG pH POC ABG pCO2 POC ABG pO2 Sodium Potassium Chloride Carbon Dioxide BUN Creatinine Glucose POC Glucose 140 H 157 H 137 H Lactic Acid Calcium Ionized Calcium Phosphorus Magnesium ALT Alkaline Phosphatase Total Creatine Kinase CK-MB (CK-2) Troponin T C-Reactive Protein Total Protein Albumin Urine WBC (Auto) Urine Creatinine Salicylates Miscellaneous Test Crossmatch 05/11/17 05/11/17 05/12/17 17:50 20:58 05:00 WBC 23.1 H RBC 3.59 L Hgb Hct RDW 17.1 H Plt Count Seg Neuts % (Manual) 94.0 H Lymphocytes % (Manual) 0 L Monocytes % (Manual) Nucleated RBC % Seg Neutrophils # Man 21.7 H Lymphocytes # (Manual) 0.0 L Monocytes # (Manual) Eosinophils # (Manual) PT INR APTT D-Dimer POC ABG pH POC ABG pCO2 POC ABG pO2 Sodium Potassium Chloride Carbon Dioxide BUN Creatinine Glucose POC Glucose 155 H Lactic Acid Calcium Ionized Calcium Phosphorus Magnesium ALT Alkaline Phosphatase Total Creatine Kinase CK-MB (CK-2) Troponin T C-Reactive Protein Total Protein Albumin Urine WBC (Auto) 27.0 H Urine Creatinine Salicylates Miscellaneous Test Crossmatch 05/12/17 05/12/17 05/12/17 05:00 08:28 11:28 WBC RBC Hgb Hct RDW Plt Count Seg Neuts % (Manual) Lymphocytes % (Manual) Monocytes % (Manual) Nucleated RBC % Seg Neutrophils # Man Lymphocytes # (Manual) Monocytes # (Manual) Eosinophils # (Manual) PT INR APTT D-Dimer POC ABG pH POC ABG pCO2 POC ABG pO2 Sodium Potassium Chloride 111.7 H Carbon Dioxide BUN 53 H Creatinine 2.8 H Glucose 102 H POC Glucose 130 H 171 H Lactic Acid Calcium 6.9 L Ionized Calcium Phosphorus Magnesium ALT < 5 L Alkaline Phosphatase 25 L Total Creatine Kinase CK-MB (CK-2) Troponin T C-Reactive Protein Total Protein 3.3 L Albumin 1.7 L Urine WBC (Auto) Urine Creatinine Salicylates Miscellaneous Test Crossmatch 05/12/17 05/13/17 05/13/17 22:20 06:54 06:54 WBC 20.8 H RBC 3.17 L Hgb 9.2 L Hct 28.9 L RDW 17.7 H Plt Count Seg Neuts % (Manual) 93.0 H Lymphocytes % (Manual) 1.0 L Monocytes % (Manual) Nucleated RBC % Seg Neutrophils # Man 19.3 H Lymphocytes # (Manual) 0.2 L Monocytes # (Manual) Eosinophils # (Manual) 0.6 H PT INR APTT D-Dimer POC ABG pH POC ABG pCO2 POC ABG pO2 Sodium Potassium 3.3 L Chloride 110.0 H Carbon Dioxide 20 L BUN 48 H Creatinine 2.8 H Glucose 119 H POC Glucose 179 H Lactic Acid Calcium 7.4 L Ionized Calcium Phosphorus Magnesium ALT Alkaline Phosphatase Total Creatine Kinase CK-MB (CK-2) Troponin T C-Reactive Protein Total Protein Albumin Urine WBC (Auto) Urine Creatinine Salicylates Miscellaneous Test Crossmatch 05/13/17 05/13/17 05/13/17 07:35 12:52 23:32 WBC RBC Hgb Hct RDW Plt Count Seg Neuts % (Manual) Lymphocytes % (Manual) Monocytes % (Manual) Nucleated RBC % Seg Neutrophils # Man Lymphocytes # (Manual) Monocytes # (Manual) Eosinophils # (Manual) PT INR APTT D-Dimer POC ABG pH POC ABG pCO2 POC ABG pO2 Sodium Potassium Chloride Carbon Dioxide BUN Creatinine Glucose POC Glucose 139 H 159 H 179 H Lactic Acid Calcium Ionized Calcium Phosphorus Magnesium ALT Alkaline Phosphatase Total Creatine Kinase CK-MB (CK-2) Troponin T C-Reactive Protein Total Protein Albumin Urine WBC (Auto) Urine Creatinine Salicylates Miscellaneous Test Crossmatch 05/14/17 05/14/17 05/14/17 04:00 05:00 07:30 WBC 19.3 H RBC 3.16 L Hgb 9.1 L Hct 29.1 L RDW 17.9 H Plt Count Seg Neuts % (Manual) 87.0 H Lymphocytes % (Manual) 2.0 L Monocytes % (Manual) Nucleated RBC % Seg Neutrophils # Man 16.8 H Lymphocytes # (Manual) 0.4 L Monocytes # (Manual) 1.0 H Eosinophils # (Manual) 0.6 H PT INR APTT D-Dimer POC ABG pH POC ABG pCO2 POC ABG pO2 Sodium 146 H Potassium Chloride 114.7 H Carbon Dioxide 19 L BUN 43 H Creatinine 2.5 H Glucose POC Glucose 110 H Lactic Acid Calcium 7.5 L Ionized Calcium Phosphorus Magnesium ALT Alkaline Phosphatase Total Creatine Kinase CK-MB (CK-2) Troponin T C-Reactive Protein Total Protein Albumin Urine WBC (Auto) Urine Creatinine Salicylates Miscellaneous Test Crossmatch 05/14/17 05/14/17 05/14/17 11:43 15:44 20:10 WBC RBC Hgb Hct RDW Plt Count Seg Neuts % (Manual) Lymphocytes % (Manual) Monocytes % (Manual) Nucleated RBC % Seg Neutrophils # Man Lymphocytes # (Manual) Monocytes # (Manual) Eosinophils # (Manual) PT INR APTT D-Dimer POC ABG pH POC ABG pCO2 POC ABG pO2 Sodium Potassium Chloride Carbon Dioxide BUN Creatinine Glucose POC Glucose 169 H 201 H 223 H Lactic Acid Calcium Ionized Calcium Phosphorus Magnesium ALT Alkaline Phosphatase Total Creatine Kinase CK-MB (CK-2) Troponin T C-Reactive Protein Total Protein Albumin Urine WBC (Auto) Urine Creatinine Salicylates Miscellaneous Test Crossmatch 05/15/17 05/15/17 05/15/17 06:10 08:50 12:57 WBC RBC Hgb Hct RDW Plt Count Seg Neuts % (Manual) Lymphocytes % (Manual) Monocytes % (Manual) Nucleated RBC % Seg Neutrophils # Man Lymphocytes # (Manual) Monocytes # (Manual) Eosinophils # (Manual) PT INR APTT D-Dimer POC ABG pH POC ABG pCO2 POC ABG pO2 Sodium Potassium Chloride 113.6 H Carbon Dioxide 18 L BUN 43 H Creatinine 2.7 H Glucose 123 H POC Glucose 204 H 127 H Lactic Acid Calcium 7.2 L Ionized Calcium Phosphorus Magnesium ALT Alkaline Phosphatase Total Creatine Kinase CK-MB (CK-2) Troponin T C-Reactive Protein Total Protein Albumin Urine WBC (Auto) Urine Creatinine Salicylates Miscellaneous Test Crossmatch 05/15/17 05/15/17 05/15/17 17:43 21:29 23:51 WBC RBC Hgb Hct RDW Plt Count Seg Neuts % (Manual) Lymphocytes % (Manual) Monocytes % (Manual) Nucleated RBC % Seg Neutrophils # Man Lymphocytes # (Manual) Monocytes # (Manual) Eosinophils # (Manual) PT INR APTT D-Dimer POC ABG pH 6.983 L POC ABG pCO2 67.5 H POC ABG pO2 Sodium Potassium Chloride Carbon Dioxide BUN Creatinine Glucose POC Glucose 121 H 129 H Lactic Acid Calcium Ionized Calcium Phosphorus Magnesium ALT Alkaline Phosphatase Total Creatine Kinase CK-MB (CK-2) Troponin T C-Reactive Protein Total Protein Albumin Urine WBC (Auto) Urine Creatinine Salicylates Miscellaneous Test Crossmatch 05/16/17 05/16/17 05/16/17 00:15 06:00 07:46 WBC RBC Hgb Hct RDW Plt Count Seg Neuts % (Manual) Lymphocytes % (Manual) Monocytes % (Manual) Nucleated RBC % Seg Neutrophils # Man Lymphocytes # (Manual) Monocytes # (Manual) Eosinophils # (Manual) PT INR APTT D-Dimer POC ABG pH POC ABG pCO2 POC ABG pO2 Sodium Potassium Chloride 114.2 H Carbon Dioxide 17 L BUN 44 H Creatinine 3.3 H Glucose 118 H POC Glucose 135 H Lactic Acid 0.60 L Calcium 7.5 L Ionized Calcium Phosphorus Magnesium ALT Alkaline Phosphatase Total Creatine Kinase CK-MB (CK-2) Troponin T C-Reactive Protein Total Protein Albumin Urine WBC (Auto) Urine Creatinine Salicylates Miscellaneous Test Crossmatch 05/16/17 05/16/17 05/16/17 09:38 10:20 10:20 WBC 18.6 H RBC 3.08 L Hgb 9.0 L Hct 29.0 L RDW 18.8 H Plt Count Seg Neuts % (Manual) Lymphocytes % (Manual) 5.0 L Monocytes % (Manual) Nucleated RBC % Seg Neutrophils # Man 11.3 H Lymphocytes # (Manual) 0.9 L Monocytes # (Manual) 1.3 H Eosinophils # (Manual) PT INR APTT D-Dimer POC ABG pH 7.081 L POC ABG pCO2 46.3 H POC ABG pO2 107 H Sodium Potassium Chloride 114.9 H Carbon Dioxide 14 L BUN 44 H Creatinine 3.0 H Glucose 115 H POC Glucose Lactic Acid Calcium 7.3 L Ionized Calcium Phosphorus 5.40 H Magnesium ALT < 5 L Alkaline Phosphatase 17 L Total Creatine Kinase CK-MB (CK-2) Troponin T C-Reactive Protein Total Protein 4.2 L D Albumin 2.9 L Urine WBC (Auto) Urine Creatinine Salicylates Miscellaneous Test Crossmatch 05/17/17 05/17/17 05/17/17 03:44 04:00 05:00 WBC 21.9 H RBC 2.89 L Hgb 8.3 L Hct 26.4 L RDW 18.2 H Plt Count Seg Neuts % (Manual) Lymphocytes % (Manual) 7.0 L Monocytes % (Manual) Nucleated RBC % Seg Neutrophils # Man 15.3 H Lymphocytes # (Manual) Monocytes # (Manual) 1.5 H Eosinophils # (Manual) PT INR APTT D-Dimer POC ABG pH 7.199 L POC ABG pCO2 POC ABG pO2 107 H Sodium Potassium Chloride 111.7 H Carbon Dioxide 16 L BUN 43 H Creatinine 3.4 H Glucose POC Glucose Lactic Acid Calcium 7.3 L Ionized Calcium Phosphorus Magnesium ALT Alkaline Phosphatase Total Creatine Kinase CK-MB (CK-2) Troponin T C-Reactive Protein Total Protein Albumin Urine WBC (Auto) Urine Creatinine Salicylates Miscellaneous Test Crossmatch 05/17/17 05/17/17 05/18/17 05:00 12:20 04:43 WBC RBC Hgb Hct RDW Plt Count Seg Neuts % (Manual) Lymphocytes % (Manual) Monocytes % (Manual) Nucleated RBC % Seg Neutrophils # Man Lymphocytes # (Manual) Monocytes # (Manual) Eosinophils # (Manual) PT INR APTT D-Dimer POC ABG pH 7.251 L POC ABG pCO2 POC ABG pO2 126 H Sodium Potassium Chloride Carbon Dioxide BUN Creatinine Glucose POC Glucose Lactic Acid Calcium Ionized Calcium Phosphorus Magnesium ALT Alkaline Phosphatase Total Creatine Kinase CK-MB (CK-2) Troponin T C-Reactive Protein 2.30 H Total Protein Albumin Urine WBC (Auto) Urine Creatinine Salicylates Miscellaneous Test Flexitest 1 H Crossmatch 05/18/17 05/18/17 05/18/17 14:46 21:30 Unknown WBC RBC Hgb Hct RDW Plt Count Seg Neuts % (Manual) Lymphocytes % (Manual) Monocytes % (Manual) Nucleated RBC % Seg Neutrophils # Man Lymphocytes # (Manual) Monocytes # (Manual) Eosinophils # (Manual) PT INR APTT D-Dimer POC ABG pH 7.227 L POC ABG pCO2 POC ABG pO2 126 H Sodium Potassium 3.2 L Chloride 108.9 H Carbon Dioxide 19 L BUN 44 H Creatinine 3.6 H Glucose POC Glucose 206 H Lactic Acid Calcium 7.3 L Ionized Calcium Phosphorus Magnesium ALT Alkaline Phosphatase Total Creatine Kinase CK-MB (CK-2) Troponin T C-Reactive Protein Total Protein Albumin Urine WBC (Auto) Urine Creatinine Salicylates Miscellaneous Test Crossmatch 05/18/17 05/19/17 05/19/17 Unknown 05:26 06:00 WBC 25.2 H RBC 2.76 L Hgb 8.0 L Hct 24.9 L RDW 17.7 H Plt Count Seg Neuts % (Manual) 86.0 H Lymphocytes % (Manual) 1.0 L Monocytes % (Manual) Nucleated RBC % Seg Neutrophils # Man 21.7 H Lymphocytes # (Manual) 0.3 L Monocytes # (Manual) 1.5 H Eosinophils # (Manual) PT INR APTT D-Dimer POC ABG pH 7.216 L POC ABG pCO2 47.0 H POC ABG pO2 Sodium Potassium Chloride Carbon Dioxide BUN Creatinine Glucose POC Glucose 173 H Lactic Acid Calcium Ionized Calcium Phosphorus Magnesium ALT Alkaline Phosphatase Total Creatine Kinase CK-MB (CK-2) Troponin T C-Reactive Protein Total Protein Albumin Urine WBC (Auto) Urine Creatinine Salicylates Miscellaneous Test Crossmatch 05/19/17 05/19/17 05/19/17 11:47 18:04 23:54 WBC RBC Hgb Hct RDW Plt Count Seg Neuts % (Manual) Lymphocytes % (Manual) Monocytes % (Manual) Nucleated RBC % Seg Neutrophils # Man Lymphocytes # (Manual) Monocytes # (Manual) Eosinophils # (Manual) PT INR APTT D-Dimer POC ABG pH POC ABG pCO2 POC ABG pO2 Sodium Potassium Chloride Carbon Dioxide BUN Creatinine Glucose POC Glucose 203 H 178 H Lactic Acid Calcium Ionized Calcium Phosphorus Magnesium ALT Alkaline Phosphatase Total Creatine Kinase CK-MB (CK-2) Troponin T C-Reactive Protein Total Protein Albumin Urine WBC (Auto) 78.0 H Urine Creatinine Salicylates Miscellaneous Test Crossmatch 05/19/17 05/19/17 05/20/17 Unknown Unknown 05:03 WBC 36.5 H RBC 2.71 L Hgb 7.7 L Hct 24.3 L RDW 18.3 H Plt Count Seg Neuts % (Manual) 79.0 H Lymphocytes % (Manual) 3.0 L Monocytes % (Manual) Nucleated RBC % Seg Neutrophils # Man 28.8 H Lymphocytes # (Manual) 1.1 L Monocytes # (Manual) 2.6 H Eosinophils # (Manual) PT INR APTT D-Dimer POC ABG pH 7.322 L POC ABG pCO2 46.3 H POC ABG pO2 160 H Sodium Potassium 3.5 L Chloride 108.1 H Carbon Dioxide 20 L BUN 36 H Creatinine 3.1 H Glucose 165 H POC Glucose Lactic Acid Calcium 7.7 L Ionized Calcium Phosphorus Magnesium ALT Alkaline Phosphatase Total Creatine Kinase CK-MB (CK-2) Troponin T C-Reactive Protein Total Protein Albumin Urine WBC (Auto) Urine Creatinine Salicylates Miscellaneous Test Crossmatch 05/20/17 05/20/17 05/20/17 05:30 05:30 05:44 WBC 44.4 H* RBC 2.65 L Hgb 7.6 L Hct 23.7 L RDW 18.0 H Plt Count Seg Neuts % (Manual) Lymphocytes % (Manual) 7.0 L Monocytes % (Manual) 12.0 H Nucleated RBC % Seg Neutrophils # Man 22.2 H Lymphocytes # (Manual) Monocytes # (Manual) 5.3 H Eosinophils # (Manual) PT INR APTT D-Dimer POC ABG pH POC ABG pCO2 POC ABG pO2 Sodium Potassium 3.5 L Chloride Carbon Dioxide BUN 23 H Creatinine 2.1 H Glucose 167 H POC Glucose 182 H Lactic Acid Calcium 7.7 L Ionized Calcium Phosphorus Magnesium 1.40 L ALT Alkaline Phosphatase Total Creatine Kinase CK-MB (CK-2) Troponin T C-Reactive Protein Total Protein Albumin Urine WBC (Auto) Urine Creatinine Salicylates Miscellaneous Test Crossmatch 05/20/17 05/20/17 05/20/17 11:59 13:46 13:46 WBC RBC Hgb Hct RDW Plt Count Seg Neuts % (Manual) Lymphocytes % (Manual) Monocytes % (Manual) Nucleated RBC % Seg Neutrophils # Man Lymphocytes # (Manual) Monocytes # (Manual) Eosinophils # (Manual) PT 22.6 H INR 1.89 H APTT 44.6 H D-Dimer POC ABG pH POC ABG pCO2 POC ABG pO2 Sodium Potassium Chloride Carbon Dioxide BUN Creatinine Glucose POC Glucose 162 H Lactic Acid Calcium Ionized Calcium Phosphorus Magnesium ALT Alkaline Phosphatase Total Creatine Kinase CK-MB (CK-2) Troponin T C-Reactive Protein Total Protein Albumin Urine WBC (Auto) Urine Creatinine Salicylates Miscellaneous Test Crossmatch See Detail 05/20/17 05/20/17 05/20/17 17:36 20:00 20:44 WBC 38.3 H RBC 3.60 L Hgb Hct RDW 15.8 H Plt Count Seg Neuts % (Manual) Lymphocytes % (Manual) Monocytes % (Manual) Nucleated RBC % Seg Neutrophils # Man Lymphocytes # (Manual) Monocytes # (Manual) Eosinophils # (Manual) PT 21.4 H INR 1.76 H APTT 172.2 H* D-Dimer POC ABG pH POC ABG pCO2 POC ABG pO2 Sodium Potassium Chloride Carbon Dioxide BUN Creatinine Glucose POC Glucose 144 H Lactic Acid Calcium Ionized Calcium Phosphorus Magnesium ALT Alkaline Phosphatase Total Creatine Kinase CK-MB (CK-2) Troponin T C-Reactive Protein Total Protein Albumin Urine WBC (Auto) Urine Creatinine Salicylates Miscellaneous Test Crossmatch 05/20/17 05/20/17 05/21/17 22:20 23:37 05:20 WBC RBC Hgb Hct RDW Plt Count Seg Neuts % (Manual) Lymphocytes % (Manual) Monocytes % (Manual) Nucleated RBC % Seg Neutrophils # Man Lymphocytes # (Manual) Monocytes # (Manual) Eosinophils # (Manual) PT INR APTT 42.8 H D-Dimer POC ABG pH POC ABG pCO2 POC ABG pO2 Sodium Potassium 3.5 L Chloride Carbon Dioxide BUN Creatinine 1.5 H Glucose 106 H POC Glucose 113 H Lactic Acid Calcium 7.7 L Ionized Calcium Phosphorus Magnesium ALT Alkaline Phosphatase Total Creatine Kinase CK-MB (CK-2) Troponin T C-Reactive Protein Total Protein Albumin Urine WBC (Auto) Urine Creatinine Salicylates Miscellaneous Test Crossmatch 05/21/17 05/21/17 05/21/17 05:20 05:20 05:31 WBC 31.6 H RBC Hgb Hct RDW 15.8 H Plt Count Seg Neuts % (Manual) 90.0 H Lymphocytes % (Manual) 3.0 L Monocytes % (Manual) Nucleated RBC % Seg Neutrophils # Man 28.4 H Lymphocytes # (Manual) 0.9 L Monocytes # (Manual) Eosinophils # (Manual) 1.3 H PT 19.1 H INR 1.53 H APTT 37.9 H D-Dimer POC ABG pH POC ABG pCO2 POC ABG pO2 Sodium Potassium Chloride Carbon Dioxide BUN Creatinine Glucose POC Glucose 126 H Lactic Acid Calcium Ionized Calcium Phosphorus Magnesium ALT Alkaline Phosphatase Total Creatine Kinase CK-MB (CK-2) Troponin T C-Reactive Protein Total Protein Albumin Urine WBC (Auto) Urine Creatinine Salicylates Miscellaneous Test Crossmatch 05/21/17 05/21/17 05/21/17 12:46 13:00 13:00 WBC 32.9 H RBC 3.09 L Hgb 9.0 L Hct 27.6 L RDW 16.3 H Plt Count Seg Neuts % (Manual) 86.0 H Lymphocytes % (Manual) 2.0 L Monocytes % (Manual) Nucleated RBC % 2.0 H Seg Neutrophils # Man 28.3 H Lymphocytes # (Manual) 0.7 L Monocytes # (Manual) Eosinophils # (Manual) PT INR APTT D-Dimer POC ABG pH POC ABG pCO2 POC ABG pO2 Sodium Potassium 3.3 L Chloride 108.4 H Carbon Dioxide 20 L BUN Creatinine 1.4 H Glucose 119 H POC Glucose 157 H Lactic Acid Calcium 6.5 L D Ionized Calcium Phosphorus Magnesium ALT Alkaline Phosphatase 28 L Total Creatine Kinase CK-MB (CK-2) Troponin T C-Reactive Protein Total Protein 3.2 L Albumin 1.7 L Urine WBC (Auto) Urine Creatinine Salicylates Miscellaneous Test Crossmatch 05/21/17 05/21/17 05/21/17 13:00 18:15 21:00 WBC 42.4 H* RBC 2.85 L Hgb 8.2 L Hct 25.9 L RDW 16.3 H Plt Count Seg Neuts % (Manual) 95.0 H Lymphocytes % (Manual) 3.0 L Monocytes % (Manual) Nucleated RBC % Seg Neutrophils # Man 40.3 H Lymphocytes # (Manual) Monocytes # (Manual) Eosinophils # (Manual) PT 19.7 H INR 1.59 H APTT 41.1 H D-Dimer POC ABG pH POC ABG pCO2 POC ABG pO2 Sodium Potassium Chloride Carbon Dioxide BUN Creatinine Glucose POC Glucose 149 H Lactic Acid Calcium Ionized Calcium Phosphorus Magnesium ALT Alkaline Phosphatase Total Creatine Kinase CK-MB (CK-2) Troponin T C-Reactive Protein Total Protein Albumin Urine WBC (Auto) Urine Creatinine Salicylates Miscellaneous Test Crossmatch 05/22/17 05/22/17 05/22/17 00:02 04:50 04:50 WBC RBC Hgb Hct RDW Plt Count Seg Neuts % (Manual) Lymphocytes % (Manual) Monocytes % (Manual) Nucleated RBC % Seg Neutrophils # Man Lymphocytes # (Manual) Monocytes # (Manual) Eosinophils # (Manual) PT INR APTT D-Dimer POC ABG pH POC ABG pCO2 POC ABG pO2 Sodium Potassium Chloride 109.4 H Carbon Dioxide 18 L BUN Creatinine 1.8 H Glucose 164 H POC Glucose 155 H Lactic Acid Calcium 6.6 L Ionized Calcium Phosphorus Magnesium 1.40 L ALT Alkaline Phosphatase 33 L Total Creatine Kinase CK-MB (CK-2) Troponin T C-Reactive Protein Total Protein 3.6 L Albumin 2.0 L Urine WBC (Auto) Urine Creatinine Salicylates Miscellaneous Test Crossmatch 05/22/17 05/22/17 05/22/17 04:50 04:50 05:39 WBC 41.8 H* RBC 2.65 L Hgb 7.8 L Hct 24.1 L RDW 16.5 H Plt Count Seg Neuts % (Manual) 73.0 H Lymphocytes % (Manual) 4.0 L Monocytes % (Manual) Nucleated RBC % Seg Neutrophils # Man 30.5 H Lymphocytes # (Manual) Monocytes # (Manual) 1.3 H Eosinophils # (Manual) PT 21.3 H INR 1.75 H APTT 39.4 H D-Dimer POC ABG pH POC ABG pCO2 POC ABG pO2 Sodium Potassium Chloride Carbon Dioxide BUN Creatinine Glucose POC Glucose 200 H Lactic Acid Calcium Ionized Calcium Phosphorus Magnesium ALT Alkaline Phosphatase Total Creatine Kinase CK-MB (CK-2) Troponin T C-Reactive Protein Total Protein Albumin Urine WBC (Auto) Urine Creatinine Salicylates Miscellaneous Test Crossmatch 05/22/17 05/22/17 05/22/17 05:46 10:32 11:41 WBC RBC Hgb Hct RDW Plt Count Seg Neuts % (Manual) Lymphocytes % (Manual) Monocytes % (Manual) Nucleated RBC % Seg Neutrophils # Man Lymphocytes # (Manual) Monocytes # (Manual) Eosinophils # (Manual) PT INR APTT D-Dimer POC ABG pH 7.225 L 7.317 L POC ABG pCO2 45.3 H POC ABG pO2 Sodium Potassium Chloride Carbon Dioxide BUN Creatinine Glucose POC Glucose 169 H Lactic Acid Calcium Ionized Calcium Phosphorus Magnesium ALT Alkaline Phosphatase Total Creatine Kinase CK-MB (CK-2) Troponin T C-Reactive Protein Total Protein Albumin Urine WBC (Auto) Urine Creatinine Salicylates Miscellaneous Test Crossmatch 05/22/17 05/22/17 05/22/17 12:45 18:01 22:50 WBC RBC Hgb 7.4 L 8.8 L Hct 23.5 L 27.8 L RDW Plt Count Seg Neuts % (Manual) Lymphocytes % (Manual) Monocytes % (Manual) Nucleated RBC % Seg Neutrophils # Man Lymphocytes # (Manual) Monocytes # (Manual) Eosinophils # (Manual) PT INR APTT D-Dimer POC ABG pH POC ABG pCO2 POC ABG pO2 Sodium Potassium Chloride Carbon Dioxide BUN Creatinine Glucose POC Glucose 148 H Lactic Acid Calcium Ionized Calcium Phosphorus Magnesium ALT Alkaline Phosphatase Total Creatine Kinase CK-MB (CK-2) Troponin T C-Reactive Protein Total Protein Albumin Urine WBC (Auto) Urine Creatinine Salicylates Miscellaneous Test Crossmatch 05/22/17 05/23/17 05/23/17 23:53 05:15 05:15 WBC 40.9 H* RBC 3.06 L Hgb 8.9 L Hct 27.4 L RDW 16.7 H Plt Count Seg Neuts % (Manual) 93.0 H Lymphocytes % (Manual) 3.0 L Monocytes % (Manual) Nucleated RBC % Seg Neutrophils # Man 38.0 H Lymphocytes # (Manual) Monocytes # (Manual) Eosinophils # (Manual) PT INR APTT D-Dimer POC ABG pH POC ABG pCO2 POC ABG pO2 Sodium Potassium Chloride 110.6 H Carbon Dioxide 19 L BUN 18 H Creatinine 1.9 H Glucose 102 H POC Glucose 143 H Lactic Acid Calcium 7.0 L Ionized Calcium Phosphorus Magnesium ALT Alkaline Phosphatase Total Creatine Kinase CK-MB (CK-2) Troponin T C-Reactive Protein Total Protein Albumin Urine WBC (Auto) Urine Creatinine Salicylates Miscellaneous Test Crossmatch 05/23/17 05/23/17 05/23/17 05:23 06:09 08:55 WBC RBC Hgb Hct RDW Plt Count Seg Neuts % (Manual) Lymphocytes % (Manual) Monocytes % (Manual) Nucleated RBC % Seg Neutrophils # Man Lymphocytes # (Manual) Monocytes # (Manual) Eosinophils # (Manual) PT INR APTT D-Dimer POC ABG pH 7.240 L 7.297 L POC ABG pCO2 POC ABG pO2 Sodium Potassium Chloride Carbon Dioxide BUN Creatinine Glucose POC Glucose 124 H Lactic Acid Calcium Ionized Calcium Phosphorus Magnesium ALT Alkaline Phosphatase Total Creatine Kinase CK-MB (CK-2) Troponin T C-Reactive Protein Total Protein Albumin Urine WBC (Auto) Urine Creatinine Salicylates Miscellaneous Test Crossmatch 05/23/17 05/23/17 05/23/17 12:46 16:55 18:33 WBC RBC Hgb Hct RDW Plt Count Seg Neuts % (Manual) Lymphocytes % (Manual) Monocytes % (Manual) Nucleated RBC % Seg Neutrophils # Man Lymphocytes # (Manual) Monocytes # (Manual) Eosinophils # (Manual) PT INR APTT D-Dimer POC ABG pH POC ABG pCO2 POC ABG pO2 Sodium Potassium Chloride Carbon Dioxide BUN Creatinine Glucose POC Glucose 159 H 139 H Lactic Acid Calcium Ionized Calcium Phosphorus Magnesium ALT Alkaline Phosphatase Total Creatine Kinase CK-MB (CK-2) Troponin T C-Reactive Protein 7.10 H Total Protein Albumin Urine WBC (Auto) Urine Creatinine Salicylates Miscellaneous Test Crossmatch 05/23/17 05/24/17 05/24/17 23:25 06:14 07:16 WBC RBC Hgb Hct RDW Plt Count Seg Neuts % (Manual) Lymphocytes % (Manual) Monocytes % (Manual) Nucleated RBC % Seg Neutrophils # Man Lymphocytes # (Manual) Monocytes # (Manual) Eosinophils # (Manual) PT INR APTT D-Dimer POC ABG pH POC ABG pCO2 POC ABG pO2 Sodium Potassium Chloride Carbon Dioxide BUN Creatinine 1.5 H Glucose 130 H POC Glucose 143 H 159 H Lactic Acid Calcium 7.6 L Ionized Calcium Phosphorus Magnesium ALT Alkaline Phosphatase Total Creatine Kinase CK-MB (CK-2) Troponin T C-Reactive Protein Total Protein Albumin Urine WBC (Auto) Urine Creatinine Salicylates Miscellaneous Test Crossmatch 05/24/17 05/24/17 05/24/17 07:16 11:42 17:27 WBC 36.9 H RBC 2.90 L Hgb 8.5 L Hct 26.2 L RDW 16.8 H Plt Count Seg Neuts % (Manual) 96.5 H Lymphocytes % (Manual) 0 L Monocytes % (Manual) Nucleated RBC % 2.0 H Seg Neutrophils # Man 35.6 H Lymphocytes # (Manual) 0.0 L Monocytes # (Manual) 0.9 H Eosinophils # (Manual) PT INR APTT D-Dimer POC ABG pH POC ABG pCO2 POC ABG pO2 Sodium Potassium Chloride Carbon Dioxide BUN Creatinine Glucose POC Glucose 168 H 59 L Lactic Acid Calcium Ionized Calcium Phosphorus Magnesium ALT Alkaline Phosphatase Total Creatine Kinase CK-MB (CK-2) Troponin T C-Reactive Protein Total Protein Albumin Urine WBC (Auto) Urine Creatinine Salicylates Miscellaneous Test Crossmatch 05/24/17 05/24/17 05/25/17 18:43 23:47 05:37 WBC RBC Hgb Hct RDW Plt Count Seg Neuts % (Manual) Lymphocytes % (Manual) Monocytes % (Manual) Nucleated RBC % Seg Neutrophils # Man Lymphocytes # (Manual) Monocytes # (Manual) Eosinophils # (Manual) PT INR APTT D-Dimer POC ABG pH POC ABG pCO2 POC ABG pO2 Sodium Potassium Chloride Carbon Dioxide BUN Creatinine Glucose POC Glucose 139 H 150 H 152 H Lactic Acid Calcium Ionized Calcium Phosphorus Magnesium ALT Alkaline Phosphatase Total Creatine Kinase CK-MB (CK-2) Troponin T C-Reactive Protein Total Protein Albumin Urine WBC (Auto) Urine Creatinine Salicylates Miscellaneous Test Crossmatch 05/25/17 05/25/17 05/25/17 07:08 07:08 12:06 WBC 31.7 H RBC 2.81 L Hgb 8.2 L Hct 25.4 L RDW 16.3 H Plt Count Seg Neuts % (Manual) 97.0 H Lymphocytes % (Manual) 1.5 L Monocytes % (Manual) Nucleated RBC % 3.5 H Seg Neutrophils # Man 30.7 H Lymphocytes # (Manual) 0.5 L Monocytes # (Manual) Eosinophils # (Manual) PT INR APTT D-Dimer POC ABG pH POC ABG pCO2 POC ABG pO2 Sodium Potassium Chloride Carbon Dioxide BUN 24 H Creatinine 1.5 H Glucose 126 H POC Glucose 178 H Lactic Acid Calcium 8.0 L Ionized Calcium Phosphorus Magnesium ALT Alkaline Phosphatase Total Creatine Kinase CK-MB (CK-2) Troponin T C-Reactive Protein Total Protein Albumin Urine WBC (Auto) Urine Creatinine Salicylates Miscellaneous Test Crossmatch 05/25/17 05/25/17 05/26/17 17:47 23:30 05:32 WBC RBC Hgb Hct RDW Plt Count Seg Neuts % (Manual) Lymphocytes % (Manual) Monocytes % (Manual) Nucleated RBC % Seg Neutrophils # Man Lymphocytes # (Manual) Monocytes # (Manual) Eosinophils # (Manual) PT INR APTT D-Dimer POC ABG pH POC ABG pCO2 POC ABG pO2 Sodium Potassium Chloride Carbon Dioxide BUN Creatinine Glucose POC Glucose 123 H 125 H 182 H Lactic Acid Calcium Ionized Calcium Phosphorus Magnesium ALT Alkaline Phosphatase Total Creatine Kinase CK-MB (CK-2) Troponin T C-Reactive Protein Total Protein Albumin Urine WBC (Auto) Urine Creatinine Salicylates Miscellaneous Test Crossmatch 05/26/17 05/26/17 05/26/17 06:00 07:15 07:15 WBC 21.0 H RBC 2.72 L Hgb 7.8 L Hct 24.5 L RDW 16.5 H Plt Count Seg Neuts % (Manual) 88.0 H Lymphocytes % (Manual) 6.0 L Monocytes % (Manual) Nucleated RBC % 3.0 H Seg Neutrophils # Man 18.5 H Lymphocytes # (Manual) Monocytes # (Manual) Eosinophils # (Manual) PT INR APTT D-Dimer POC ABG pH POC ABG pCO2 POC ABG pO2 Sodium Potassium Chloride Carbon Dioxide BUN 34 H 34 H Creatinine 1.5 H 1.5 H Glucose 148 H 145 H POC Glucose Lactic Acid Calcium 8.1 L 8.2 L Ionized Calcium Phosphorus Magnesium ALT < 5 L Alkaline Phosphatase Total Creatine Kinase CK-MB (CK-2) Troponin T C-Reactive Protein Total Protein 4.0 L Albumin 2.3 L Urine WBC (Auto) Urine Creatinine Salicylates Miscellaneous Test Crossmatch 05/26/17 05/26/17 05/26/17 10:50 12:16 18:14 WBC RBC Hgb Hct RDW Plt Count Seg Neuts % (Manual) Lymphocytes % (Manual) Monocytes % (Manual) Nucleated RBC % Seg Neutrophils # Man Lymphocytes # (Manual) Monocytes # (Manual) Eosinophils # (Manual) PT INR APTT D-Dimer POC ABG pH POC ABG pCO2 POC ABG pO2 Sodium Potassium Chloride Carbon Dioxide BUN Creatinine Glucose POC Glucose 143 H 161 H Lactic Acid Calcium Ionized Calcium Phosphorus Magnesium ALT Alkaline Phosphatase Total Creatine Kinase CK-MB (CK-2) Troponin T C-Reactive Protein Total Protein Albumin Urine WBC (Auto) Urine Creatinine Salicylates Miscellaneous Test Crossmatch See Detail 05/26/17 05/26/17 05/27/17 19:02 23:46 05:17 WBC 19.8 H RBC 3.35 L Hgb 9.7 L Hct 29.3 L RDW 17.8 H Plt Count Seg Neuts % (Manual) 89.0 H Lymphocytes % (Manual) 6.0 L Monocytes % (Manual) Nucleated RBC % Seg Neutrophils # Man 17.6 H Lymphocytes # (Manual) Monocytes # (Manual) Eosinophils # (Manual) PT INR APTT D-Dimer POC ABG pH POC ABG pCO2 POC ABG pO2 Sodium Potassium Chloride Carbon Dioxide BUN Creatinine Glucose POC Glucose 108 H 173 H Lactic Acid Calcium Ionized Calcium Phosphorus Magnesium ALT Alkaline Phosphatase Total Creatine Kinase CK-MB (CK-2) Troponin T C-Reactive Protein Total Protein Albumin Urine WBC (Auto) Urine Creatinine Salicylates Miscellaneous Test Crossmatch 05/27/17 05/27/17 06:05 06:05 WBC 20.2 H RBC 3.30 L Hgb 9.2 L Hct 28.6 L RDW 17.7 H Plt Count Seg Neuts % (Manual) Lymphocytes % (Manual) Monocytes % (Manual) Nucleated RBC % Seg Neutrophils # Man Lymphocytes # (Manual) Monocytes # (Manual) Eosinophils # (Manual) PT INR APTT D-Dimer POC ABG pH POC ABG pCO2 POC ABG pO2 Sodium Potassium Chloride Carbon Dioxide BUN 39 H Creatinine 1.4 H Glucose 162 H POC Glucose Lactic Acid Calcium 8.1 L Ionized Calcium Phosphorus Magnesium ALT Alkaline Phosphatase Total Creatine Kinase CK-MB (CK-2) Troponin T C-Reactive Protein Total Protein Albumin Urine WBC (Auto) Urine Creatinine Salicylates Miscellaneous Test Crossmatch
[2017-05-27 10:08] LABS: Anisocytosis 2+; Basophils % (Manual) 0 % (0.0-1.8); Blastocytes % (Manual) 0 %
[2017-05-27 10:09] LABS: Polychromasia 1+; Target Cells Few
[2017-05-27 10:10] LABS: Diff Status Complete; Spherocytes Few
[2017-05-27] MEDS ORDERED: HYDROGEN PEROXIDE TP PRN (12:18)
--- NOTE | 2017-05-27 13:56 | Progress Note ---
Assessment and Plan POD # 6 Pt extubated. keara well. NG d/c'ed. off pressors Abd soft. +BS, incision clean & dry surgically stable d/c JAVAN drain. attempt cl liq diet Selected Entries 05/27/17 12:00 Temperature 98.1 F Blood Pressure 109/54 Laboratory Tests 05/27/17 06:05 WBC 20.2 H Hgb 9.2 L Hct 28.6 L Objective Vital Signs - 12hr 05/27/17 05/27/17 05/27/17 02:00 02:15 02:30 Temperature Pulse Rate 76 90 101 H Pulse Rate [ Anterior Bilateral Throughout] Pulse Rate [ From Monitor] Respiratory 17 19 18 Rate Respiratory Rate [Anterior Bilateral Throughout] Blood Pressure 113/56 125/56 117/47 O2 Sat by Pulse 99 97 97 Oximetry 05/27/17 05/27/17 05/27/17 02:45 03:00 03:15 Temperature Pulse Rate 85 94 H 81 Pulse Rate [ Anterior Bilateral Throughout] Pulse Rate [ From Monitor] Respiratory 20 26 H 19 Rate Respiratory Rate [Anterior Bilateral Throughout] Blood Pressure 113/57 114/63 114/63 O2 Sat by Pulse 97 96 99 Oximetry 05/27/17 05/27/17 05/27/17 03:30 03:45 03:55 Temperature 98.7 F Pulse Rate 77 74 Pulse Rate [ Anterior Bilateral Throughout] Pulse Rate [ From Monitor] Respiratory 19 20 Rate Respiratory Rate [Anterior Bilateral Throughout] Blood Pressure 118/50 116/59 O2 Sat by Pulse 96 99 Oximetry 05/27/17 05/27/17 05/27/17 04:00 04:15 04:30 Temperature Pulse Rate 77 89 76 Pulse Rate [ Anterior Bilateral Throughout] Pulse Rate [ From Monitor] Respiratory 19 20 20 Rate Respiratory Rate [Anterior Bilateral Throughout] Blood Pressure 106/54 114/59 104/56 O2 Sat by Pulse 99 99 100 Oximetry 05/27/17 05/27/17 05/27/17 04:45 05:00 05:15 Temperature Pulse Rate 74 84 84 Pulse Rate [ Anterior Bilateral Throughout] Pulse Rate [ From Monitor] Respiratory 20 18 20 Rate Respiratory Rate [Anterior Bilateral Throughout] Blood Pressure 112/53 106/57 113/59 O2 Sat by Pulse 99 99 98 Oximetry 05/27/17 05/27/17 05/27/17 05:30 05:45 06:01 Temperature Pulse Rate 74 77 97 H Pulse Rate [ Anterior Bilateral Throughout] Pulse Rate [ From Monitor] Respiratory 18 18 17 Rate Respiratory Rate [Anterior Bilateral Throughout] Blood Pressure 115/56 118/53 127/55 O2 Sat by Pulse 99 100 99 Oximetry 05/27/17 05/27/17 05/27/17 06:15 06:30 06:45 Temperature Pulse Rate 112 H 83 81 Pulse Rate [ Anterior Bilateral Throughout] Pulse Rate [ From Monitor] Respiratory 18 21 17 Rate Respiratory Rate [Anterior Bilateral Throughout] Blood Pressure 122/61 107/68 105/61 O2 Sat by Pulse 99 98 Oximetry 05/27/17 05/27/17 05/27/17 07:00 07:15 07:31 Temperature Pulse Rate 84 84 93 H Pulse Rate [ Anterior Bilateral Throughout] Pulse Rate [ From Monitor] Respiratory 18 18 19 Rate Respiratory Rate [Anterior Bilateral Throughout] Blood Pressure 113/66 103/61 111/70 O2 Sat by Pulse 97 97 100 Oximetry 05/27/17 05/27/17 05/27/17 07:45 08:00 08:15 Temperature 97.6 F Pulse Rate 81 80 77 Pulse Rate [ Anterior Bilateral Throughout] Pulse Rate [ 82 From Monitor] Respiratory 15 19 16 Rate Respiratory Rate [Anterior Bilateral Throughout] Blood Pressure 114/62 118/60 118/60 O2 Sat by Pulse 99 100 100 Oximetry 05/27/17 05/27/17 05/27/17 08:30 08:45 09:00 Temperature Pulse Rate 86 77 89 Pulse Rate [ Anterior Bilateral Throughout] Pulse Rate [ From Monitor] Respiratory 17 22 19 Rate Respiratory Rate [Anterior Bilateral Throughout] Blood Pressure 113/59 110/60 116/54 O2 Sat by Pulse 100 100 99 Oximetry 05/27/17 05/27/17 05/27/17 09:12 09:14 09:15 Temperature Pulse Rate 87 Pulse Rate [ 86 Anterior Bilateral Throughout] Pulse Rate [ From Monitor] Respiratory 16 Rate Respiratory 20 Rate [Anterior Bilateral Throughout] Blood Pressure 93/56 O2 Sat by Pulse 99 99 Oximetry 05/27/17 05/27/17 05/27/17 09:29 09:30 09:45 Temperature Pulse Rate 81 83 Pulse Rate [ 106 H Anterior Bilateral Throughout] Pulse Rate [ From Monitor] Respiratory 19 22 Rate Respiratory 18 Rate [Anterior Bilateral Throughout] Blood Pressure 97/64 93/64 O2 Sat by Pulse 97 98 Oximetry 05/27/17 05/27/17 05/27/17 10:00 10:15 10:30 Temperature Pulse Rate 83 84 83 Pulse Rate [ Anterior Bilateral Throughout] Pulse Rate [ From Monitor] Respiratory 16 20 19 Rate Respiratory Rate [Anterior Bilateral Throughout] Blood Pressure 94/54 87/57 104/53 O2 Sat by Pulse 97 99 Oximetry 05/27/17 05/27/17 05/27/17 10:45 11:01 11:15 Temperature Pulse Rate 84 85 87 Pulse Rate [ Anterior Bilateral Throughout] Pulse Rate [ From Monitor] Respiratory 18 21 25 H Rate Respiratory Rate [Anterior Bilateral Throughout] Blood Pressure 104/53 100/45 91/61 O2 Sat by Pulse 99 98 Oximetry 05/27/17 05/27/17 05/27/17 11:30 11:45 12:00 Temperature 98.1 F Pulse Rate 87 86 85 Pulse Rate [ Anterior Bilateral Throughout] Pulse Rate [ From Monitor] Respiratory 26 H 22 20 Rate Respiratory Rate [Anterior Bilateral Throughout] Blood Pressure 99/48 107/53 109/54 O2 Sat by Pulse 98 98 98 Oximetry - Labs 05/27/17 06:05 05/27/17 06:05 Diabetes panel 05/27/17 Range/Units 06:05 Sodium 143 (137-145) mmol/L Potassium 4.5 (3.6-5.0) mmol/L Chloride 104.7 (98-107) mmol/L Carbon Dioxide 28 (22-30) mmol/L BUN 39 H (7-17) mg/dL Creatinine 1.4 H (0.7-1.2) mg/dL Glucose 162 H (65-100) mg/dL Calcium 8.1 L (8.4-10.2) mg/dL Calcium panel 05/27/17 05/27/17 Range/Units 06:05 06:05 Calcium 8.1 L (8.4-10.2) mg/dL Phosphorus 4.10 (2.5-4.5) mg/dL Pituitary panel 05/27/17 Range/Units 06:05 Sodium 143 (137-145) mmol/L Potassium 4.5 (3.6-5.0) mmol/L Chloride 104.7 (98-107) mmol/L Carbon Dioxide 28 (22-30) mmol/L BUN 39 H (7-17) mg/dL Creatinine 1.4 H (0.7-1.2) mg/dL Glucose 162 H (65-100) mg/dL Calcium 8.1 L (8.4-10.2) mg/dL Adrenal panel 05/27/17 Range/Units 06:05 Sodium 143 (137-145) mmol/L Potassium 4.5 (3.6-5.0) mmol/L Chloride 104.7 (98-107) mmol/L Carbon Dioxide 28 (22-30) mmol/L BUN 39 H (7-17) mg/dL Creatinine 1.4 H (0.7-1.2) mg/dL Glucose 162 H (65-100) mg/dL Calcium 8.1 L (8.4-10.2) mg/dL
--- NOTE | 2017-05-27 17:58 | Progress Note ---
Assessment and Plan Assessment and plan: C. difficile colitis - Patient is on Flagyl Sepsis - Patient is off pressors, meropenem was discontinued yesterday Status post partial colectomy - Surgical wound is stable - Patient started on clear liquid diet - Surgery is following Acute on chronic renal failure - Nephrology is following COPD exacerbation, acute on chronic respiratory - Pulmonary following - Patient is extubated and on intranasal oxygen Anemia - Stable DVT prophylaxis Disposition - Possible transfer to the floor tomorrow. History Interval history: Patient was seen and evaluated this morning, patient was extubated and on intranasal oxygen. Hospitalist Physical - Physical exam Narrative exam: Not in cardiopulmonary distress. On intranasal oxygen The patient appeared well nourished and normally developed. Vital signs as documented. Head exam is unremarkable. No scleral icterus . Neck is without jugular venous distension, thyromegaly, or carotid bruits. Lungs are clear to auscultation. Cardiac exam reveals regular rate and Rhythm. First and second heart sounds normal. No murmurs, rubs or gallops. Abdominal ostomy looks good, brown stool. Extremities are nonedematous and both femoral and pedal pulses are normal. BOARDER MACHINE: Alert and oriented 3. No focal weakness. - Constitutional Vitals: Temp Pulse Resp BP Pulse Ox 97.8 F 101 H 24 113/67 98 05/27/17 16:00 05/27/17 17:15 05/27/17 17:15 05/27/17 17:15 05/27/17 17:15 General appearance: Present: no acute distress, mild distress, well-nourished, other (intubatd and vent supported) Results - Labs CBC & Chem 7: 05/27/17 06:05 05/27/17 06:05 Labs: Laboratory Last Values WBC 20.2 K/mm3 (4.5-11.0) H 05/27/17 06:05 RBC 3.30 M/mm3 (3.65-5.03) L 05/27/17 06:05 Hgb 9.2 gm/dl (10.1-14.3) L 05/27/17 06:05 Hct 28.6 % (30.3-42.9) L 05/27/17 06:05 MCV 87 fl (79-97) 05/27/17 06:05 MCH 28 pg (28-32) 05/27/17 06:05 MCHC 32 % (30-34) 05/27/17 06:05 RDW 17.7 % (13.2-15.2) H 05/27/17 06:05 Plt Count 184 K/mm3 (140-440) 05/27/17 06:05 [place] % (Auto) % (0.0-7.3) 05/22/17 04:50 Eos % (Auto) % (0.0-4.3) 05/22/17 04:50 Norman # K/mm3 (0.0-0.8) 05/22/17 04:50 Eos # K/mm3 (0.0-0.4) 05/22/17 04:50 Baso # 0.0 K/mm3 (0.0-0.1) 05/22/17 04:50 Add Manual Diff Complete 05/27/17 06:05 Total Counted 100 05/27/17 06:05 Seg Neutrophils % Production Mechanic Tin Cans 05/24/17 07:16 Seg Neuts % (Manual) 83.0 % (40.0-70.0) H 05/27/17 06:05 Band Neutrophils % 3.0 % 05/27/17 06:05 Lymphocytes % (Manual) 7.0 % (13.4-35.0) L 05/27/17 06:05 Reactive Lymphs % (Man) 0 % 05/27/17 06:05 Monocytes % (Manual) 6.0 % (0.0-7.3) 05/27/17 06:05 Eosinophils % (Manual) 1.0 % (0.0-4.3) 05/27/17 06:05 Basophils % (Manual) 0 % (0.0-1.8) 05/27/17 06:05 Metamyelocytes % 0 % 05/27/17 06:05 Myelocytes % 0 % 05/27/17 06:05 Promyelocytes % 0 % 05/27/17 06:05 Blast Cells % 0 % 05/27/17 06:05 Nucleated RBC % 1.0 % (0.0-0.9) H 05/27/17 06:05 Seg Neutrophils # K/mm3 (1.8-7.7) 05/22/17 04:50 Seg Neutrophils # Man 16.8 K/mm3 (1.8-7.7) H 05/27/17 06:05 Band Neutrophils # 0.6 K/mm3 05/27/17 06:05 Lymphocytes # (Manual) 1.4 K/mm3 (1.2-5.4) 05/27/17 06:05 Abs React Lymphs (Man) 0.0 K/mm3 05/27/17 06:05 Monocytes # (Manual) 1.2 K/mm3 (0.0-0.8) H 05/27/17 06:05 Eosinophils # (Manual) 0.2 K/mm3 (0.0-0.4) 05/27/17 06:05 Basophils # (Manual) 0.0 K/mm3 (0.0-0.1) 05/27/17 06:05 Metamyelocytes # 0.0 K/mm3 05/27/17 06:05 Myelocytes # 0.0 K/mm3 05/27/17 06:05 Promyelocytes # 0.0 K/mm3 05/27/17 06:05 Blast Cells # 0.0 K/mm3 05/27/17 06:05 WBC Morphology Not Reportable 05/27/17 06:05 Hypersegmented Neuts Not Reportable 05/27/17 06:05 Hyposegmented Neuts Not Reportable 05/27/17 06:05 Hypogranular Neuts Not Reportable 05/27/17 06:05 Smudge Cells Not Reportable 05/27/17 06:05 Toxic Granulation Not Reportable 05/27/17 06:05 Toxic Vacuolation Not Reportable 05/27/17 06:05 Dohle Bodies Not Reportable 05/27/17 06:05 Pelger-Huet Anomaly Not Reportable 05/27/17 06:05 Neisha Rods Not Reportable 05/27/17 06:05 Platelet Estimate Not Reportable 05/27/17 06:05 Clumped Platelets Not Reportable 05/27/17 06:05 Plt Clumps, EDTA Not Reportable 05/27/17 06:05 Large Platelets Not Reportable 05/27/17 06:05 Giant Platelets Not Reportable 05/27/17 06:05 Platelet Satelliting Not Reportable 05/27/17 06:05 Plt Morphology Comment Not Reportable 05/27/17 06:05 RBC Morphology Not Reportable 05/27/17 06:05 Dimorphic RBCs Not Reportable 05/27/17 06:05 Polychromasia 1+ 05/27/17 06:05 Hypochromasia Not Reportable 05/27/17 06:05 Poikilocytosis Not Reportable 05/27/17 06:05 Anisocytosis 2+ 05/27/17 06:05 Microcytosis Not Reportable 05/27/17 06:05 Macrocytosis Not Reportable 05/27/17 06:05 Spherocytes Few 05/27/17 06:05 Pappenheimer Bodies Not Reportable 05/27/17 06:05 Sickle Cells Not Reportable 05/27/17 06:05 Target Cells Few 05/27/17 06:05 Tear Drop Cells Not Reportable 05/27/17 06:05 Ovalocytes Not Reportable 05/27/17 06:05 Stomatocytes Few 05/21/17 05:20 Helmet Cells Not Reportable 05/27/17 06:05 [place] Bodies Not Reportable 05/27/17 06:05 [place] Rings Not Reportable 05/27/17 06:05 [place] Cells Not Reportable 05/27/17 06:05 Bite Cells Not Reportable 05/27/17 06:05 Crenated Cell Not Reportable 05/27/17 06:05 Elliptocytes Not Reportable 05/27/17 06:05 Acanthocytes (Spur) Not Reportable 05/27/17 06:05 Rouleaux Not Reportable 05/27/17 06:05 Hemoglobin C Crystals Not Reportable 05/27/17 06:05 Schistocytes Not Reportable 05/27/17 06:05 Malaria parasites Not Reportable 05/27/17 06:05 Herve Bodies Not Reportable 05/27/17 06:05 Hem Pathologist Commnt No 05/27/17 06:05 PT 21.3 Sec. (12.2-14.9) H 05/22/17 04:50 INR 1.75 (0.87-1.13) H 05/22/17 04:50 APTT 39.4 Sec. (24.2-36.6) H 05/22/17 04:50 D-Dimer 8441.57 ng/mlDDU (0-234) H 05/04/17 Unknown POC ABG pH 7.424 (7.35-7.45) 05/26/17 09:49 POC ABG pCO2 44.1 (35-45) 05/26/17 09:49 POC ABG pO2 89 (80-105) 05/26/17 09:49 POC ABG HCO3 28.9 05/26/17 09:49 POC ABG Total CO2 30 05/26/17 09:49 POC ABG O2 Sat 97 05/26/17 09:49 POC ABG Base Excess 4 05/26/17 09:49 FiO2 25 % 05/26/17 09:49 Sodium 143 mmol/L (137-145) 05/27/17 06:05 Potassium 4.5 mmol/L (3.6-5.0) 05/27/17 06:05 Chloride 104.7 mmol/L (98-107) 05/27/17 06:05 Carbon Dioxide 28 mmol/L (22-30) 05/27/17 06:05 Anion Gap 15 mmol/L 05/27/17 06:05 BUN 39 mg/dL (7-17) H 05/27/17 06:05 Creatinine 1.4 mg/dL (0.7-1.2) H 05/27/17 06:05 Estimated GFR 46 ml/min 05/27/17 06:05 BUN/Creatinine Ratio 28 % 05/27/17 06:05 Glucose 162 mg/dL (65-100) H 05/27/17 06:05 POC Glucose 148 (70-105) H 05/27/17 16:58 Lactic Acid 0.60 mmol/L (0.7-2.0) L 05/16/17 00:15 Calcium 8.1 mg/dL (8.4-10.2) L 05/27/17 06:05 Ionized Calcium 3.5 mg/dL (4.8-5.6) L 05/05/17 17:45 Phosphorus 4.10 mg/dL (2.5-4.5) 05/27/17 06:05 Magnesium 2.00 mg/dL (1.7-2.3) 05/27/17 06:05 Total Bilirubin 0.30 mg/dL (0.1-1.2) 05/26/17 07:15 AST 9 units/L (5-40) 05/26/17 07:15 ALT < 5 units/L (7-56) L 05/26/17 07:15 Alkaline Phosphatase 41 units/L (35-129) 05/26/17 07:15 Total Creatine Kinase 346 units/L (30-135) H 05/05/17 05:20 CK-MB (CK-2) 8.2 ng/mL (0.0-4.0) H 05/05/17 05:20 CK-MB (CK-2) Rel Index 2.3 (0-4) 05/05/17 05:20 Troponin T 0.027 ng/mL (0.00-0.029) 05/05/17 05:20 C-Reactive Protein 7.10 mg/dL (0.00-1.30) H 05/23/17 16:55 Total Protein 4.0 g/dL (6.3-8.2) L 05/26/17 07:15 Albumin 2.3 g/dL (3.9-5) L 05/26/17 07:15 Albumin/Globulin Ratio 1.4 % 05/26/17 07:15 Triglycerides 149 mg/dL (2-149) 05/04/17 18:55 Cholesterol 185 mg/dL (50-199) 05/04/17 18:55 LDL Cholesterol Direct 103 mg/dL (50-130) 05/04/17 18:55 HDL Cholesterol 53 mg/dL (40-59) 05/04/17 18:55 Cholesterol/HDL Ratio 3.49 % 05/04/17 18:55 TSH 1.780 mlU/mL (0.270-4.200) 05/04/17 18:39 Urine Color Yellow (Yellow) 05/19/17 18:04 Urine Turbidity Clear (Clear) 05/19/17 18:04 Urine pH 5.0 (5.0-7.0) 05/19/17 18:04 Ur Specific [place] 1.014 (1.003-1.030) 05/19/17 18:04 Urine Protein 30 mg/dl mg/dL (Negative) 05/19/17 18:04 Urine Glucose (UA) Neg mg/dL (Negative) 05/19/17 18:04 Urine Ketones Neg mg/dL (Negative) 05/19/17 18:04 Urine Blood Mod (Negative) 05/19/17 18:04 Urine Nitrite Neg (Negative) 05/19/17 18:04 Urine Bilirubin Neg (Negative) 05/19/17 18:04 Urine Urobilinogen < 2.0 mg/dL (<2.0) 05/19/17 18:04 Ur Leukocyte Esterase Lg (Negative) 05/19/17 18:04 Urine WBC (Auto) 78.0 /HPF (0.0-6.0) H 05/19/17 18:04 Urine RBC (Auto) 90.0 /HPF (0.0-6.0) 05/19/17 18:04 U Epithel Cells (Auto) < 1.0 /HPF (0-13.0) 05/19/17 18:04 Urine Bacteria (Auto) 2+ /HPF (Negative) 05/19/17 18:04 Amorphous Crystals Few 05/11/17 17:50 Hyaline Casts 3 /LPF 05/19/17 18:04 Granular Casts 1 /LPF 05/19/17 18:04 Urine Mucus Few /HPF 05/19/17 18:04 Ur Yeast w Hyphae Few /HPF 05/19/17 18:04 Urine Yeast (Budding) 3+ /HPF 05/19/17 18:04 Urine Creatinine 28.0 mg/dL (0.1-20.0) H 05/05/17 Unknown Urine Sodium 129 mmol/L 05/05/17 Unknown Urine Potassium 3.67 mmol/L 05/05/17 Unknown Urine Chloride 115.6 mmolL (110-250) 05/05/17 Unknown Salicylates 0.3 mg/dL (2.8-20.0) L 05/04/17 18:39 Urine Opiates Screen Presumptive negative 05/04/17 02:20 Urine Methadone Screen Presumptive negative 05/04/17 02:20 Acetaminophen < 15.0 ug/mL (10.0-30.0) 05/04/17 18:39 Ur Barbiturates Screen Presumptive negative 05/04/17 02:20 Ur Phencyclidine Scrn Presumptive negative 05/04/17 02:20 Ur Amphetamines Screen Presumptive negative 05/04/17 02:20 U Benzodiazepines Scrn Presumptive negative 05/04/17 02:20 Urine Cocaine Screen Presumptive negative 05/04/17 02:20 U Marijuana (THC) Screen Presumptive negative 05/04/17 02:20 Drugs of Abuse Note Disclamer 05/04/17 02:20 Plasma/Serum Alcohol < 0.01 gm% (0-0.07) 05/04/17 18:39 Hepatitis A IgM Ab Non-reactive (NonReactive) 05/20/17 17:49 Hep Bs Antigen Non-reactive (Negative) 05/20/17 17:49 Hep B Core IgM Ab Non-reactive (NonReactive) 05/20/17 17:49 Hepatitis C Antibody Non-reactive (NonReactive) 05/20/17 17:49 Miscellaneous Test Flexitest 1 H 05/17/17 12:20 Blood Type AB POSITIVE 05/26/17 10:50 Antibody Screen Negative 05/26/17 10:50 Crossmatch See Detail 05/26/17 10:50
[2017-05-27] MEDS ORDERED: TPN ADULT 1,560 ML IV SCH (20:00)
[2017-05-28] MEDS: FLAGYL 500 MG/100 ML 500 MG/100 ML BAG IV SCH ×2 (02:49→06:00)
[2017-05-28] MEDS: NOVOLOG SUB-Q SCH ×4 (02:50→17:13)
[2017-05-28 04:47] LABS: Hematocrit 27.2 % (30.3-42.9); Mean Corpuscular HGB Conc 33 % (30-34); Mean Corpuscular Hemoglobin 29 pg (28-32); Mean Corpuscular Volume 88 fl (79-97); Platelet Count 196 K/mm3 (140-440); Red Blood Count 3.08 M/mm3 (3.65-5.03); Red Cell Distribution Width 17.6 % (13.2-15.2); White Blood Count 17.4 K/mm3 (4.5-11.0)
[2017-05-28 04:53] LABS: Calcium 8.2 mg/dL (8.4-10.2); Chloride 104.7 mmol/L (98-107); Magnesium 1.8 mg/dL (1.7-2.3); Phosphorous 3.7 mg/dL (2.5-4.5); Potassium 4.6 mmol/L (3.6-5.0)
[2017-05-28 06:05] LABS: Basophils % (Manual) 0 % (0.0-1.8); Blastocytes % (Manual) 0 %
[2017-05-28 06:06] LABS: Anisocytosis 1+; Diff Status Complete; Macrocytosis 1+; Platelet Estimate Consistent w Auto; Polychromasia 1+; Target Cells Few
[2017-05-28] MEDS: DUONEB *Not for PRN Use IH SCH ×3 (07:35→19:51)
[2017-05-28] MEDS: PULMICORT IH SCH ×2 (07:35→19:51)
[2017-05-28] MEDS: BROVANA NEBU IH SCH ×2 (07:35→19:59)
--- NOTE | 2017-05-28 08:29 | Progress Note ---
Assessment and Plan Impression * Acute renal failure. Most likely secondary to ATN * Respiratory failure * Septic shock * Anemia * C. difficile colitis * COPD Recommendations * Status post initiation of hemodialysis on 05/18/2017 * Her serum creatinine noted to have improved. She is responding well to diuretics. added IV albumin with Lasix. * Last hemodialysis was on 05/23/2017. Shall hold her dialysis for now . * Status post colectomy 05/21/17 * Avoid Nephrotoxins * Adjust meds for GFR less than 10 * Her renal function seems to be recovering at this time * continue daily lytes, remove vascular catheter Subjective Date of service: 05/28/17 Principal diagnosis: Septic shock,C. diff colitis Interval history: resting well in bed today Objective - Exam Narrative Exam: General appearance: well-developed, well-nourished EENT: ATNC Neck: no JVD Respiratory: Present: Decreased Breath Sounds Cardiology: regular, S1S2 Gastrointestinal: hypoactive bowel sounds, no tenderness, distended Integumentary: no rash Neurologic: reflexes 2+ and symmetric Musculoskeletal: other (trace edema) Psychiatric: cooperative - Vital Signs Vital signs: Vital Signs - 12hr 05/27/17 05/27/17 05/27/17 20:30 20:45 20:49 Temperature Pulse Rate 90 89 Pulse Rate [ 90 Anterior Bilateral Throughout] Respiratory 18 21 Rate Respiratory 21 Rate [Anterior Bilateral Throughout] Blood Pressure 101/53 104/45 O2 Sat by Pulse 97 99 100 Oximetry 05/27/17 05/27/17 05/27/17 21:00 21:04 21:15 Temperature Pulse Rate 94 H 96 H Pulse Rate [ 83 Anterior Bilateral Throughout] Respiratory 18 24 Rate Respiratory 17 Rate [Anterior Bilateral Throughout] Blood Pressure 102/52 102/52 O2 Sat by Pulse 99 100 Oximetry 05/27/17 05/27/17 05/27/17 21:30 21:45 22:00 Temperature Pulse Rate 80 76 78 Pulse Rate [ Anterior Bilateral Throughout] Respiratory 24 19 24 Rate Respiratory Rate [Anterior Bilateral Throughout] Blood Pressure 107/51 107/51 109/59 O2 Sat by Pulse 99 97 99 Oximetry 05/27/17 05/27/17 05/27/17 22:15 22:31 22:45 Temperature Pulse Rate 77 81 90 Pulse Rate [ Anterior Bilateral Throughout] Respiratory 22 25 H 24 Rate Respiratory Rate [Anterior Bilateral Throughout] Blood Pressure 109/59 108/46 108/46 O2 Sat by Pulse 99 94 97 Oximetry 05/27/17 05/27/17 05/27/17 23:00 23:15 23:31 Temperature Pulse Rate 80 118 H 109 H Pulse Rate [ Anterior Bilateral Throughout] Respiratory 26 H 25 H 25 H Rate Respiratory Rate [Anterior Bilateral Throughout] Blood Pressure 116/46 116/46 111/51 O2 Sat by Pulse 95 97 96 Oximetry 05/27/17 05/27/17 05/28/17 23:39 23:45 00:00 Temperature 98.6 F Pulse Rate 96 H 102 H Pulse Rate [ Anterior Bilateral Throughout] Respiratory 29 H 24 Rate Respiratory Rate [Anterior Bilateral Throughout] Blood Pressure 111/51 111/51 O2 Sat by Pulse 97 Oximetry 05/28/17 05/28/17 05/28/17 00:01 00:15 00:31 Temperature Pulse Rate 92 H 93 H 92 H Pulse Rate [ Anterior Bilateral Throughout] Respiratory 26 H 28 H 22 Rate Respiratory Rate [Anterior Bilateral Throughout] Blood Pressure 100/53 100/53 131/69 O2 Sat by Pulse 98 98 99 Oximetry 05/28/17 05/28/17 05/28/17 00:45 01:01 01:15 Temperature Pulse Rate 94 H 85 91 H Pulse Rate [ Anterior Bilateral Throughout] Respiratory 22 24 25 H Rate Respiratory Rate [Anterior Bilateral Throughout] Blood Pressure 131/69 118/58 118/58 O2 Sat by Pulse 97 95 100 Oximetry 05/28/17 05/28/17 05/28/17 01:30 01:45 02:00 Temperature Pulse Rate 97 H 79 78 Pulse Rate [ Anterior Bilateral Throughout] Respiratory 25 H 24 23 Rate Respiratory Rate [Anterior Bilateral Throughout] Blood Pressure 107/53 107/53 106/51 O2 Sat by Pulse 99 100 99 Oximetry 05/28/17 05/28/17 05/28/17 02:15 02:30 02:45 Temperature Pulse Rate 90 76 89 Pulse Rate [ Anterior Bilateral Throughout] Respiratory 23 23 20 Rate Respiratory Rate [Anterior Bilateral Throughout] Blood Pressure 106/51 104/47 104/47 O2 Sat by Pulse 100 99 100 Oximetry 05/28/17 05/28/17 05/28/17 03:00 03:15 03:30 Temperature Pulse Rate 89 89 75 Pulse Rate [ Anterior Bilateral Throughout] Respiratory 22 21 19 Rate Respiratory Rate [Anterior Bilateral Throughout] Blood Pressure 107/53 107/53 110/55 O2 Sat by Pulse 100 100 100 Oximetry 05/28/17 05/28/17 05/28/17 03:45 04:00 04:15 Temperature 98.6 F Pulse Rate 80 73 84 Pulse Rate [ Anterior Bilateral Throughout] Respiratory 21 22 21 Rate Respiratory Rate [Anterior Bilateral Throughout] Blood Pressure 110/55 96/53 96/53 O2 Sat by Pulse 100 100 99 Oximetry 05/28/17 05/28/17 05/28/17 04:30 04:45 05:00 Temperature Pulse Rate 76 75 93 H Pulse Rate [ Anterior Bilateral Throughout] Respiratory 22 21 22 Rate Respiratory Rate [Anterior Bilateral Throughout] Blood Pressure 99/49 99/49 99/50 O2 Sat by Pulse 97 99 100 Oximetry 05/28/17 05/28/17 05/28/17 05:15 05:31 05:45 Temperature Pulse Rate 87 96 H 69 Pulse Rate [ Anterior Bilateral Throughout] Respiratory 21 22 23 Rate Respiratory Rate [Anterior Bilateral Throughout] Blood Pressure 99/50 106/49 106/49 O2 Sat by Pulse 99 96 100 Oximetry 05/28/17 05/28/17 05/28/17 06:00 06:15 06:30 Temperature Pulse Rate 72 72 99 H Pulse Rate [ Anterior Bilateral Throughout] Respiratory 23 23 15 Rate Respiratory Rate [Anterior Bilateral Throughout] Blood Pressure 108/49 108/49 113/59 O2 Sat by Pulse 98 99 96 Oximetry 05/28/17 05/28/17 05/28/17 06:45 07:00 07:34 Temperature Pulse Rate 118 H 88 Pulse Rate [ Anterior Bilateral Throughout] Respiratory 17 17 Rate Respiratory Rate [Anterior Bilateral Throughout] Blood Pressure 113/59 94/56 O2 Sat by Pulse 100 100 99 Oximetry 05/28/17 05/28/17 07:35 07:47 Temperature Pulse Rate Pulse Rate [ 86 96 H Anterior Bilateral Throughout] Respiratory Rate Respiratory 16 22 Rate [Anterior Bilateral Throughout] Blood Pressure O2 Sat by Pulse Oximetry - Lab 05/28/17 04:00 05/28/17 04:00 Most recent lab results Calcium 8.2 mg/dL (8.4-10.2) L 05/28/17 04:00 Phosphorus 3.70 mg/dL (2.5-4.5) 05/28/17 04:00 Magnesium 1.80 mg/dL (1.7-2.3) 05/28/17 04:00 Urine Creatinine 28.0 mg/dL (0.1-20.0) H 05/05/17 Unknown Urine Sodium 129 mmol/L 05/05/17 Unknown
[2017-05-28] MEDS: ALBURX 25% (ALBUMIN) IV SCH ×2 (09:21→22:46)
[2017-05-28] MEDS: LASIX IV SCH ×2 (09:21→23:44)
[2017-05-28] MEDS: PEPCID IV SCH (09:21)
--- NOTE | 2017-05-28 10:43 | Progress Note ---
Assessment and Plan 61 y/o female with severe C. Diff colitis, sepsis with shock and now encephalopathy, likely metabolic requiring mechanical ventilation. 1. Wean FiO2 as tolerated. 2. Levophed has been weaned off 3. ABx per ID 4. Hopefully surgery ok with full liquids now. Nutrition will order more TPN for tonight, may be able to discontinue in the next 24-48 hours. 5. Stable for transfer out of ICU. Subjective Date of service: 05/28/17 Principal diagnosis: Septic shock,C. diff colitis Interval history: No acute events. Did not require further pressor therapy on yesterday. Stable. Tolerated liquid diet. JAVAN drain removed. Objective Vital Signs - 12hr 05/27/17 05/27/17 05/27/17 22:45 23:00 23:15 Temperature Pulse Rate 90 80 118 H Pulse Rate [ Anterior Bilateral Throughout] Pulse Rate [ From Monitor] Respiratory 24 26 H 25 H Rate Respiratory Rate [Anterior Bilateral Throughout] Blood Pressure 108/46 116/46 116/46 O2 Sat by Pulse 97 95 97 Oximetry 05/27/17 05/27/17 05/27/17 23:31 23:39 23:45 Temperature Pulse Rate 109 H 96 H 102 H Pulse Rate [ Anterior Bilateral Throughout] Pulse Rate [ From Monitor] Respiratory 25 H 29 H 24 Rate Respiratory Rate [Anterior Bilateral Throughout] Blood Pressure 111/51 111/51 111/51 O2 Sat by Pulse 96 97 Oximetry 05/28/17 05/28/17 05/28/17 00:00 00:01 00:15 Temperature 98.6 F Pulse Rate 92 H 93 H Pulse Rate [ Anterior Bilateral Throughout] Pulse Rate [ From Monitor] Respiratory 26 H 28 H Rate Respiratory Rate [Anterior Bilateral Throughout] Blood Pressure 100/53 100/53 O2 Sat by Pulse 98 98 Oximetry 05/28/17 05/28/17 05/28/17 00:31 00:45 01:01 Temperature Pulse Rate 92 H 94 H 85 Pulse Rate [ Anterior Bilateral Throughout] Pulse Rate [ From Monitor] Respiratory 22 22 24 Rate Respiratory Rate [Anterior Bilateral Throughout] Blood Pressure 131/69 131/69 118/58 O2 Sat by Pulse 99 97 95 Oximetry 05/28/17 05/28/17 05/28/17 01:15 01:30 01:45 Temperature Pulse Rate 91 H 97 H 79 Pulse Rate [ Anterior Bilateral Throughout] Pulse Rate [ From Monitor] Respiratory 25 H 25 H 24 Rate Respiratory Rate [Anterior Bilateral Throughout] Blood Pressure 118/58 107/53 107/53 O2 Sat by Pulse 100 99 100 Oximetry 05/28/17 05/28/17 05/28/17 02:00 02:15 02:30 Temperature Pulse Rate 78 90 76 Pulse Rate [ Anterior Bilateral Throughout] Pulse Rate [ From Monitor] Respiratory 23 23 23 Rate Respiratory Rate [Anterior Bilateral Throughout] Blood Pressure 106/51 106/51 104/47 O2 Sat by Pulse 99 100 99 Oximetry 05/28/17 05/28/17 05/28/17 02:45 03:00 03:15 Temperature Pulse Rate 89 89 89 Pulse Rate [ Anterior Bilateral Throughout] Pulse Rate [ From Monitor] Respiratory 20 22 21 Rate Respiratory Rate [Anterior Bilateral Throughout] Blood Pressure 104/47 107/53 107/53 O2 Sat by Pulse 100 100 100 Oximetry 05/28/17 05/28/17 05/28/17 03:30 03:45 04:00 Temperature 98.6 F Pulse Rate 75 80 73 Pulse Rate [ Anterior Bilateral Throughout] Pulse Rate [ From Monitor] Respiratory 19 21 22 Rate Respiratory Rate [Anterior Bilateral Throughout] Blood Pressure 110/55 110/55 96/53 O2 Sat by Pulse 100 100 100 Oximetry 05/28/17 05/28/17 05/28/17 04:15 04:30 04:45 Temperature Pulse Rate 84 76 75 Pulse Rate [ Anterior Bilateral Throughout] Pulse Rate [ From Monitor] Respiratory 21 22 21 Rate Respiratory Rate [Anterior Bilateral Throughout] Blood Pressure 96/53 99/49 99/49 O2 Sat by Pulse 99 97 99 Oximetry 05/28/17 05/28/17 05/28/17 05:00 05:15 05:31 Temperature Pulse Rate 93 H 87 96 H Pulse Rate [ Anterior Bilateral Throughout] Pulse Rate [ From Monitor] Respiratory 22 21 22 Rate Respiratory Rate [Anterior Bilateral Throughout] Blood Pressure 99/50 99/50 106/49 O2 Sat by Pulse 100 99 96 Oximetry 05/28/17 05/28/17 05/28/17 05:45 06:00 06:15 Temperature Pulse Rate 69 72 72 Pulse Rate [ Anterior Bilateral Throughout] Pulse Rate [ From Monitor] Respiratory 23 23 23 Rate Respiratory Rate [Anterior Bilateral Throughout] Blood Pressure 106/49 108/49 108/49 O2 Sat by Pulse 100 98 99 Oximetry 05/28/17 05/28/17 05/28/17 06:30 06:45 07:00 Temperature Pulse Rate 99 H 118 H 88 Pulse Rate [ Anterior Bilateral Throughout] Pulse Rate [ From Monitor] Respiratory 15 17 17 Rate Respiratory Rate [Anterior Bilateral Throughout] Blood Pressure 113/59 113/59 94/56 O2 Sat by Pulse 96 100 100 Oximetry 05/28/17 05/28/17 05/28/17 07:15 07:30 07:34 Temperature Pulse Rate 87 86 Pulse Rate [ Anterior Bilateral Throughout] Pulse Rate [ From Monitor] Respiratory 15 22 Rate Respiratory Rate [Anterior Bilateral Throughout] Blood Pressure 94/56 103/58 O2 Sat by Pulse 99 98 99 Oximetry 05/28/17 05/28/17 05/28/17 07:35 07:45 07:47 Temperature Pulse Rate 98 H Pulse Rate [ 86 96 H Anterior Bilateral Throughout] Pulse Rate [ From Monitor] Respiratory 22 Rate Respiratory 16 22 Rate [Anterior Bilateral Throughout] Blood Pressure 103/58 O2 Sat by Pulse 100 Oximetry 05/28/17 05/28/17 05/28/17 08:00 08:15 08:31 Temperature 97.4 F L Pulse Rate 98 H 102 H 138 H Pulse Rate [ Anterior Bilateral Throughout] Pulse Rate [ 113 H From Monitor] Respiratory 18 25 H 21 Rate Respiratory Rate [Anterior Bilateral Throughout] Blood Pressure 104/57 104/57 104/57 O2 Sat by Pulse 99 100 99 Oximetry 05/28/17 05/28/17 08:45 09:01 Temperature Pulse Rate 122 H 118 H Pulse Rate [ Anterior Bilateral Throughout] Pulse Rate [ From Monitor] Respiratory 22 21 Rate Respiratory Rate [Anterior Bilateral Throughout] Blood Pressure 104/57 104/57 O2 Sat by Pulse 100 100 Oximetry Constitutional: no acute distress, alert Eyes: non-icteric ENT: oropharynx moist Neck: supple Effort: normal Ascultation: Bilateral: clear (anterior), diminished breath sounds, other ( coarse BS bilaterally) Percussion: Bilateral: not dull Cardiovascular: regular rate and rhythm (no mrg) Gastrointestinal: hypoactive bowel sounds, tender, other (distended, ostomy looks good with some liquid stool in bag, brown + old blood) Integumentary: normal Extremities: no cyanosis, pink and warm, anasarca (1+ bilateral LE edema) Neurologic: normal mental status, non-focal exam, pupils equal and round, CN II- XII normal Psychiatric: mood appropriate, affect normal CBC and BMP: 05/28/17 04:00 05/28/17 04:00 ABG, PT/INR, D-dimer: ABG POC ABG pH 7.424 (7.35-7.45) 05/26/17 09:49 POC ABG pCO2 44.1 (35-45) 05/26/17 09:49 POC ABG pO2 89 (80-105) 05/26/17 09:49 POC ABG HCO3 28.9 05/26/17 09:49 POC ABG Total CO2 30 05/26/17 09:49 POC ABG O2 Sat 97 05/26/17 09:49 PT/INR, D-dimer PT 21.3 Sec. (12.2-14.9) H 05/22/17 04:50 INR 1.75 (0.87-1.13) H 05/22/17 04:50 D-Dimer 8441.57 ng/mlDDU (0-234) H 05/04/17 Unknown Abnormal lab findings: Abnormal Labs 05/04/17 05/04/17 05/04/17 02:20 18:39 18:39 WBC 24.3 H RBC Hgb Hct RDW 16.4 H Plt Count 658 H Seg Neuts % (Manual) 94.5 H Lymphocytes % (Manual) 2.5 L Monocytes % (Manual) Nucleated RBC % Seg Neutrophils # Man 23.0 H Lymphocytes # (Manual) 0.6 L Monocytes # (Manual) Eosinophils # (Manual) PT INR APTT D-Dimer POC ABG pH POC ABG pCO2 POC ABG pO2 Sodium Potassium 3.2 L Chloride 92.6 L Carbon Dioxide 14 L BUN 66 H Creatinine 6.5 H Glucose POC Glucose Lactic Acid Calcium 7.5 L Ionized Calcium Phosphorus Magnesium ALT 5 L Alkaline Phosphatase 32 L Total Creatine Kinase CK-MB (CK-2) Troponin T C-Reactive Protein Total Protein 5.4 L Albumin 3.0 L Urine WBC (Auto) 100.0 H Urine Creatinine Salicylates Miscellaneous Test Crossmatch 05/04/17 05/04/17 05/04/17 18:39 18:55 Unknown WBC RBC Hgb Hct RDW Plt Count Seg Neuts % (Manual) Lymphocytes % (Manual) Monocytes % (Manual) Nucleated RBC % Seg Neutrophils # Man Lymphocytes # (Manual) Monocytes # (Manual) Eosinophils # (Manual) PT INR APTT D-Dimer POC ABG pH POC ABG pCO2 POC ABG pO2 Sodium Potassium Chloride Carbon Dioxide BUN Creatinine Glucose POC Glucose Lactic Acid 0.40 L Calcium Ionized Calcium Phosphorus Magnesium ALT Alkaline Phosphatase Total Creatine Kinase 155 H CK-MB (CK-2) 4.5 H Troponin T 0.033 H C-Reactive Protein Total Protein Albumin Urine WBC (Auto) Urine Creatinine Salicylates 0.3 L Miscellaneous Test Crossmatch 05/04/17 05/04/17 05/04/17 Unknown Unknown Unknown WBC RBC Hgb Hct RDW Plt Count Seg Neuts % (Manual) Lymphocytes % (Manual) Monocytes % (Manual) Nucleated RBC % Seg Neutrophils # Man Lymphocytes # (Manual) Monocytes # (Manual) Eosinophils # (Manual) PT INR APTT D-Dimer 8441.57 H POC ABG pH POC ABG pCO2 POC ABG pO2 Sodium Potassium Chloride Carbon Dioxide BUN Creatinine Glucose POC Glucose Lactic Acid 0.40 L Calcium Ionized Calcium Phosphorus Magnesium ALT Alkaline Phosphatase Total Creatine Kinase 246 H CK-MB (CK-2) 6.2 H Troponin T C-Reactive Protein Total Protein Albumin Urine WBC (Auto) Urine Creatinine Salicylates Miscellaneous Test Crossmatch 05/05/17 05/05/17 05/05/17 05:20 05:20 05:20 WBC 33.9 H RBC 3.39 L Hgb 9.3 L Hct RDW 16.7 H Plt Count 712 H Seg Neuts % (Manual) 91.0 H Lymphocytes % (Manual) 1.0 L Monocytes % (Manual) Nucleated RBC % Seg Neutrophils # Man 30.8 H Lymphocytes # (Manual) 0.3 L Monocytes # (Manual) 1.5 H Eosinophils # (Manual) PT INR APTT D-Dimer POC ABG pH POC ABG pCO2 POC ABG pO2 Sodium Potassium Chloride Carbon Dioxide 9 L* BUN 53 H Creatinine 5.4 H Glucose POC Glucose Lactic Acid Calcium 6.1 L D Ionized Calcium Phosphorus Magnesium ALT Alkaline Phosphatase Total Creatine Kinase 346 H CK-MB (CK-2) 8.2 H Troponin T C-Reactive Protein Total Protein Albumin Urine WBC (Auto) Urine Creatinine Salicylates Miscellaneous Test Crossmatch 05/05/17 05/05/17 05/05/17 10:43 17:45 17:45 WBC RBC Hgb 8.8 L Hct RDW Plt Count Seg Neuts % (Manual) Lymphocytes % (Manual) Monocytes % (Manual) Nucleated RBC % Seg Neutrophils # Man Lymphocytes # (Manual) Monocytes # (Manual) Eosinophils # (Manual) PT INR APTT D-Dimer POC ABG pH 6.872 L POC ABG pCO2 POC ABG pO2 120 H Sodium Potassium Chloride Carbon Dioxide BUN Creatinine Glucose POC Glucose Lactic Acid Calcium Ionized Calcium 3.5 L Phosphorus Magnesium ALT Alkaline Phosphatase Total Creatine Kinase CK-MB (CK-2) Troponin T C-Reactive Protein Total Protein Albumin Urine WBC (Auto) Urine Creatinine Salicylates Miscellaneous Test Crossmatch 05/05/17 05/05/17 05/05/17 17:45 20:58 Unknown WBC RBC Hgb 9.0 L Hct 29.8 L RDW Plt Count Seg Neuts % (Manual) Lymphocytes % (Manual) Monocytes % (Manual) Nucleated RBC % Seg Neutrophils # Man Lymphocytes # (Manual) Monocytes # (Manual) Eosinophils # (Manual) PT INR APTT D-Dimer POC ABG pH POC ABG pCO2 POC ABG pO2 Sodium Potassium Chloride Carbon Dioxide BUN Creatinine Glucose POC Glucose Lactic Acid Calcium Ionized Calcium Phosphorus 6.20 H Magnesium 1.20 L ALT Alkaline Phosphatase Total Creatine Kinase CK-MB (CK-2) Troponin T C-Reactive Protein Total Protein Albumin Urine WBC (Auto) Urine Creatinine 28.0 H Salicylates Miscellaneous Test Crossmatch 05/06/17 05/06/17 05/06/17 05:09 05:23 07:55 WBC RBC Hgb Hct RDW Plt Count Seg Neuts % (Manual) Lymphocytes % (Manual) Monocytes % (Manual) Nucleated RBC % Seg Neutrophils # Man Lymphocytes # (Manual) Monocytes # (Manual) Eosinophils # (Manual) PT INR APTT D-Dimer POC ABG pH 7.029 L 7.060 L POC ABG pCO2 54.8 H 48.6 H POC ABG pO2 74 L 43 L Sodium Potassium 3.5 L Chloride Carbon Dioxide 18 L D BUN 44 H Creatinine 3.5 H Glucose 252 H POC Glucose Lactic Acid Calcium 5.8 L* Ionized Calcium Phosphorus Magnesium ALT Alkaline Phosphatase Total Creatine Kinase CK-MB (CK-2) Troponin T C-Reactive Protein Total Protein Albumin Urine WBC (Auto) Urine Creatinine Salicylates Miscellaneous Test Crossmatch 05/06/17 05/06/17 05/06/17 07:55 15:28 17:30 WBC RBC Hgb Hct RDW Plt Count Seg Neuts % (Manual) Lymphocytes % (Manual) Monocytes % (Manual) Nucleated RBC % Seg Neutrophils # Man Lymphocytes # (Manual) Monocytes # (Manual) Eosinophils # (Manual) PT INR APTT D-Dimer POC ABG pH 7.066 L POC ABG pCO2 80.9 H POC ABG pO2 65 L Sodium Potassium Chloride Carbon Dioxide BUN Creatinine Glucose POC Glucose Lactic Acid Calcium Ionized Calcium Phosphorus Magnesium ALT Alkaline Phosphatase Total Creatine Kinase CK-MB (CK-2) Troponin T C-Reactive Protein 14.50 H Total Protein Albumin Urine WBC (Auto) Urine Creatinine Salicylates Miscellaneous Test Flexitest 1 H Crossmatch 05/06/17 05/06/17 05/07/17 17:30 Unknown 10:18 WBC 39.2 H 32.9 H RBC 3.27 L Hgb 9.3 L Hct 30.2 L RDW 16.4 H 17.0 H Plt Count 645 H 467 H Seg Neuts % (Manual) Lymphocytes % (Manual) 11.0 L Monocytes % (Manual) Nucleated RBC % Seg Neutrophils # Man 21.2 H Lymphocytes # (Manual) Monocytes # (Manual) 2.0 H Eosinophils # (Manual) PT INR APTT D-Dimer POC ABG pH POC ABG pCO2 POC ABG pO2 Sodium Potassium 3.4 L Chloride Carbon Dioxide BUN 41 H Creatinine 3.2 H Glucose 265 H POC Glucose Lactic Acid Calcium 6.7 L D Ionized Calcium Phosphorus Magnesium ALT Alkaline Phosphatase Total Creatine Kinase CK-MB (CK-2) Troponin T C-Reactive Protein Total Protein Albumin Urine WBC (Auto) Urine Creatinine Salicylates Miscellaneous Test Crossmatch 05/07/17 05/07/17 05/08/17 11:32 12:36 05:45 WBC 31.1 H RBC 3.41 L Hgb 9.8 L Hct RDW 16.9 H Plt Count Seg Neuts % (Manual) 96.0 H Lymphocytes % (Manual) 1.0 L Monocytes % (Manual) Nucleated RBC % Seg Neutrophils # Man 29.9 H Lymphocytes # (Manual) 0.3 L Monocytes # (Manual) Eosinophils # (Manual) PT INR APTT D-Dimer POC ABG pH 7.290 L POC ABG pCO2 48.3 H POC ABG pO2 51 L Sodium 146 H Potassium 3.1 L Chloride 109.2 H Carbon Dioxide 20 L BUN 38 H Creatinine 2.7 H Glucose 213 H POC Glucose Lactic Acid Calcium 6.6 L Ionized Calcium Phosphorus Magnesium ALT Alkaline Phosphatase Total Creatine Kinase CK-MB (CK-2) Troponin T C-Reactive Protein Total Protein Albumin Urine WBC (Auto) Urine Creatinine Salicylates Miscellaneous Test Crossmatch 05/08/17 05/08/17 05/09/17 05:45 18:55 04:05 WBC 26.1 H RBC Hgb Hct RDW 17.6 H Plt Count Seg Neuts % (Manual) Lymphocytes % (Manual) 5.0 L Monocytes % (Manual) Nucleated RBC % Seg Neutrophils # Man 16.7 H Lymphocytes # (Manual) Monocytes # (Manual) Eosinophils # (Manual) PT INR APTT D-Dimer POC ABG pH POC ABG pCO2 POC ABG pO2 Sodium 150 H Potassium Chloride 115.4 H 112.2 H Carbon Dioxide 20 L 18 L BUN 39 H 45 H Creatinine 2.4 H 2.3 H Glucose 160 H 219 H POC Glucose Lactic Acid Calcium 6.6 L 7.2 L Ionized Calcium Phosphorus Magnesium 1.40 L ALT 6 L Alkaline Phosphatase Total Creatine Kinase CK-MB (CK-2) Troponin T C-Reactive Protein Total Protein 4.1 L D Albumin 2.0 L Urine WBC (Auto) Urine Creatinine Salicylates Miscellaneous Test Crossmatch 05/09/17 05/09/17 05/09/17 04:05 05:15 05:45 WBC RBC Hgb Hct RDW Plt Count Seg Neuts % (Manual) Lymphocytes % (Manual) Monocytes % (Manual) Nucleated RBC % Seg Neutrophils # Man Lymphocytes # (Manual) Monocytes # (Manual) Eosinophils # (Manual) PT INR APTT D-Dimer POC ABG pH POC ABG pCO2 POC ABG pO2 Sodium 130 L D Potassium 3.4 L D Chloride 94.6 L Carbon Dioxide 19 L BUN 39 H Creatinine 2.1 H Glucose 549 H* 189 H POC Glucose 181 H Lactic Acid Calcium 6.6 L Ionized Calcium Phosphorus Magnesium ALT 6 L Alkaline Phosphatase 31 L Total Creatine Kinase CK-MB (CK-2) Troponin T C-Reactive Protein Total Protein 3.5 L Albumin 2.0 L Urine WBC (Auto) Urine Creatinine Salicylates Miscellaneous Test Crossmatch 05/09/17 05/09/17 05/09/17 08:03 11:08 16:15 WBC RBC Hgb Hct RDW Plt Count Seg Neuts % (Manual) Lymphocytes % (Manual) Monocytes % (Manual) Nucleated RBC % Seg Neutrophils # Man Lymphocytes # (Manual) Monocytes # (Manual) Eosinophils # (Manual) PT INR APTT D-Dimer POC ABG pH POC ABG pCO2 POC ABG pO2 Sodium Potassium Chloride 107.8 H Carbon Dioxide 21 L BUN 43 H Creatinine 2.4 H Glucose 195 H POC Glucose 299 H 111 H Lactic Acid Calcium 7.1 L Ionized Calcium Phosphorus Magnesium ALT Alkaline Phosphatase Total Creatine Kinase CK-MB (CK-2) Troponin T C-Reactive Protein Total Protein 3.9 L Albumin 2.3 L Urine WBC (Auto) Urine Creatinine Salicylates Miscellaneous Test Crossmatch 05/09/17 05/10/17 05/10/17 23:05 05:00 05:00 WBC 20.9 H RBC 3.53 L Hgb Hct RDW 17.3 H Plt Count Seg Neuts % (Manual) 72.0 H Lymphocytes % (Manual) 8.0 L Monocytes % (Manual) Nucleated RBC % Seg Neutrophils # Man 15.0 H Lymphocytes # (Manual) Monocytes # (Manual) Eosinophils # (Manual) PT INR APTT D-Dimer POC ABG pH POC ABG pCO2 POC ABG pO2 Sodium 135 L D Potassium 3.2 L Chloride Carbon Dioxide 21 L BUN 45 H Creatinine 2.2 H Glucose 308 H POC Glucose 336 H Lactic Acid Calcium 7.1 L Ionized Calcium Phosphorus Magnesium ALT 5 L Alkaline Phosphatase 30 L Total Creatine Kinase CK-MB (CK-2) Troponin T C-Reactive Protein Total Protein 3.8 L Albumin 2.1 L Urine WBC (Auto) Urine Creatinine Salicylates Miscellaneous Test Crossmatch 05/10/17 05/10/17 05/10/17 07:28 11:36 16:03 WBC RBC Hgb Hct RDW Plt Count Seg Neuts % (Manual) Lymphocytes % (Manual) Monocytes % (Manual) Nucleated RBC % Seg Neutrophils # Man Lymphocytes # (Manual) Monocytes # (Manual) Eosinophils # (Manual) PT INR APTT D-Dimer POC ABG pH POC ABG pCO2 POC ABG pO2 Sodium Potassium Chloride Carbon Dioxide BUN Creatinine Glucose POC Glucose 154 H 184 H 162 H Lactic Acid Calcium Ionized Calcium Phosphorus Magnesium ALT Alkaline Phosphatase Total Creatine Kinase CK-MB (CK-2) Troponin T C-Reactive Protein Total Protein Albumin Urine WBC (Auto) Urine Creatinine Salicylates Miscellaneous Test Crossmatch 05/10/17 05/11/17 05/11/17 21:13 06:50 06:50 WBC 24.4 H RBC Hgb Hct RDW 17.4 H Plt Count Seg Neuts % (Manual) Lymphocytes % (Manual) 5.0 L Monocytes % (Manual) Nucleated RBC % Seg Neutrophils # Man 16.3 H Lymphocytes # (Manual) Monocytes # (Manual) 1.0 H Eosinophils # (Manual) PT INR APTT D-Dimer POC ABG pH POC ABG pCO2 POC ABG pO2 Sodium Potassium 3.4 L Chloride Carbon Dioxide BUN 50 H Creatinine 2.8 H Glucose 131 H POC Glucose 188 H Lactic Acid Calcium 7.6 L Ionized Calcium Phosphorus Magnesium ALT < 5 L Alkaline Phosphatase 25 L Total Creatine Kinase CK-MB (CK-2) Troponin T C-Reactive Protein Total Protein 3.6 L Albumin 2.0 L Urine WBC (Auto) Urine Creatinine Salicylates Miscellaneous Test Crossmatch 05/11/17 05/11/17 05/11/17 09:33 11:45 15:46 WBC RBC Hgb Hct RDW Plt Count Seg Neuts % (Manual) Lymphocytes % (Manual) Monocytes % (Manual) Nucleated RBC % Seg Neutrophils # Man Lymphocytes # (Manual) Monocytes # (Manual) Eosinophils # (Manual) PT INR APTT D-Dimer POC ABG pH POC ABG pCO2 POC ABG pO2 Sodium Potassium Chloride Carbon Dioxide BUN Creatinine Glucose POC Glucose 140 H 157 H 137 H Lactic Acid Calcium Ionized Calcium Phosphorus Magnesium ALT Alkaline Phosphatase Total Creatine Kinase CK-MB (CK-2) Troponin T C-Reactive Protein Total Protein Albumin Urine WBC (Auto) Urine Creatinine Salicylates Miscellaneous Test Crossmatch 05/11/17 05/11/17 05/12/17 17:50 20:58 05:00 WBC 23.1 H RBC 3.59 L Hgb Hct RDW 17.1 H Plt Count Seg Neuts % (Manual) 94.0 H Lymphocytes % (Manual) 0 L Monocytes % (Manual) Nucleated RBC % Seg Neutrophils # Man 21.7 H Lymphocytes # (Manual) 0.0 L Monocytes # (Manual) Eosinophils # (Manual) PT INR APTT D-Dimer POC ABG pH POC ABG pCO2 POC ABG pO2 Sodium Potassium Chloride Carbon Dioxide BUN Creatinine Glucose POC Glucose 155 H Lactic Acid Calcium Ionized Calcium Phosphorus Magnesium ALT Alkaline Phosphatase Total Creatine Kinase CK-MB (CK-2) Troponin T C-Reactive Protein Total Protein Albumin Urine WBC (Auto) 27.0 H Urine Creatinine Salicylates Miscellaneous Test Crossmatch 05/12/17 05/12/17 05/12/17 05:00 08:28 11:28 WBC RBC Hgb Hct RDW Plt Count Seg Neuts % (Manual) Lymphocytes % (Manual) Monocytes % (Manual) Nucleated RBC % Seg Neutrophils # Man Lymphocytes # (Manual) Monocytes # (Manual) Eosinophils # (Manual) PT INR APTT D-Dimer POC ABG pH POC ABG pCO2 POC ABG pO2 Sodium Potassium Chloride 111.7 H Carbon Dioxide BUN 53 H Creatinine 2.8 H Glucose 102 H POC Glucose 130 H 171 H Lactic Acid Calcium 6.9 L Ionized Calcium Phosphorus Magnesium ALT < 5 L Alkaline Phosphatase 25 L Total Creatine Kinase CK-MB (CK-2) Troponin T C-Reactive Protein Total Protein 3.3 L Albumin 1.7 L Urine WBC (Auto) Urine Creatinine Salicylates Miscellaneous Test Crossmatch 05/12/17 05/13/17 05/13/17 22:20 06:54 06:54 WBC 20.8 H RBC 3.17 L Hgb 9.2 L Hct 28.9 L RDW 17.7 H Plt Count Seg Neuts % (Manual) 93.0 H Lymphocytes % (Manual) 1.0 L Monocytes % (Manual) Nucleated RBC % Seg Neutrophils # Man 19.3 H Lymphocytes # (Manual) 0.2 L Monocytes # (Manual) Eosinophils # (Manual) 0.6 H PT INR APTT D-Dimer POC ABG pH POC ABG pCO2 POC ABG pO2 Sodium Potassium 3.3 L Chloride 110.0 H Carbon Dioxide 20 L BUN 48 H Creatinine 2.8 H Glucose 119 H POC Glucose 179 H Lactic Acid Calcium 7.4 L Ionized Calcium Phosphorus Magnesium ALT Alkaline Phosphatase Total Creatine Kinase CK-MB (CK-2) Troponin T C-Reactive Protein Total Protein Albumin Urine WBC (Auto) Urine Creatinine Salicylates Miscellaneous Test Crossmatch 05/13/17 05/13/17 05/13/17 07:35 12:52 23:32 WBC RBC Hgb Hct RDW Plt Count Seg Neuts % (Manual) Lymphocytes % (Manual) Monocytes % (Manual) Nucleated RBC % Seg Neutrophils # Man Lymphocytes # (Manual) Monocytes # (Manual) Eosinophils # (Manual) PT INR APTT D-Dimer POC ABG pH POC ABG pCO2 POC ABG pO2 Sodium Potassium Chloride Carbon Dioxide BUN Creatinine Glucose POC Glucose 139 H 159 H 179 H Lactic Acid Calcium Ionized Calcium Phosphorus Magnesium ALT Alkaline Phosphatase Total Creatine Kinase CK-MB (CK-2) Troponin T C-Reactive Protein Total Protein Albumin Urine WBC (Auto) Urine Creatinine Salicylates Miscellaneous Test Crossmatch 05/14/17 05/14/17 05/14/17 04:00 05:00 07:30 WBC 19.3 H RBC 3.16 L Hgb 9.1 L Hct 29.1 L RDW 17.9 H Plt Count Seg Neuts % (Manual) 87.0 H Lymphocytes % (Manual) 2.0 L Monocytes % (Manual) Nucleated RBC % Seg Neutrophils # Man 16.8 H Lymphocytes # (Manual) 0.4 L Monocytes # (Manual) 1.0 H Eosinophils # (Manual) 0.6 H PT INR APTT D-Dimer POC ABG pH POC ABG pCO2 POC ABG pO2 Sodium 146 H Potassium Chloride 114.7 H Carbon Dioxide 19 L BUN 43 H Creatinine 2.5 H Glucose POC Glucose 110 H Lactic Acid Calcium 7.5 L Ionized Calcium Phosphorus Magnesium ALT Alkaline Phosphatase Total Creatine Kinase CK-MB (CK-2) Troponin T C-Reactive Protein Total Protein Albumin Urine WBC (Auto) Urine Creatinine Salicylates Miscellaneous Test Crossmatch 05/14/17 05/14/17 05/14/17 11:43 15:44 20:10 WBC RBC Hgb Hct RDW Plt Count Seg Neuts % (Manual) Lymphocytes % (Manual) Monocytes % (Manual) Nucleated RBC % Seg Neutrophils # Man Lymphocytes # (Manual) Monocytes # (Manual) Eosinophils # (Manual) PT INR APTT D-Dimer POC ABG pH POC ABG pCO2 POC ABG pO2 Sodium Potassium Chloride Carbon Dioxide BUN Creatinine Glucose POC Glucose 169 H 201 H 223 H Lactic Acid Calcium Ionized Calcium Phosphorus Magnesium ALT Alkaline Phosphatase Total Creatine Kinase CK-MB (CK-2) Troponin T C-Reactive Protein Total Protein Albumin Urine WBC (Auto) Urine Creatinine Salicylates Miscellaneous Test Crossmatch 05/15/17 05/15/17 05/15/17 06:10 08:50 12:57 WBC RBC Hgb Hct RDW Plt Count Seg Neuts % (Manual) Lymphocytes % (Manual) Monocytes % (Manual) Nucleated RBC % Seg Neutrophils # Man Lymphocytes # (Manual) Monocytes # (Manual) Eosinophils # (Manual) PT INR APTT D-Dimer POC ABG pH POC ABG pCO2 POC ABG pO2 Sodium Potassium Chloride 113.6 H Carbon Dioxide 18 L BUN 43 H Creatinine 2.7 H Glucose 123 H POC Glucose 204 H 127 H Lactic Acid Calcium 7.2 L Ionized Calcium Phosphorus Magnesium ALT Alkaline Phosphatase Total Creatine Kinase CK-MB (CK-2) Troponin T C-Reactive Protein Total Protein Albumin Urine WBC (Auto) Urine Creatinine Salicylates Miscellaneous Test Crossmatch 05/15/17 05/15/17 05/15/17 17:43 21:29 23:51 WBC RBC Hgb Hct RDW Plt Count Seg Neuts % (Manual) Lymphocytes % (Manual) Monocytes % (Manual) Nucleated RBC % Seg Neutrophils # Man Lymphocytes # (Manual) Monocytes # (Manual) Eosinophils # (Manual) PT INR APTT D-Dimer POC ABG pH 6.983 L POC ABG pCO2 67.5 H POC ABG pO2 Sodium Potassium Chloride Carbon Dioxide BUN Creatinine Glucose POC Glucose 121 H 129 H Lactic Acid Calcium Ionized Calcium Phosphorus Magnesium ALT Alkaline Phosphatase Total Creatine Kinase CK-MB (CK-2) Troponin T C-Reactive Protein Total Protein Albumin Urine WBC (Auto) Urine Creatinine Salicylates Miscellaneous Test Crossmatch 05/16/17 05/16/17 05/16/17 00:15 06:00 07:46 WBC RBC Hgb Hct RDW Plt Count Seg Neuts % (Manual) Lymphocytes % (Manual) Monocytes % (Manual) Nucleated RBC % Seg Neutrophils # Man Lymphocytes # (Manual) Monocytes # (Manual) Eosinophils # (Manual) PT INR APTT D-Dimer POC ABG pH POC ABG pCO2 POC ABG pO2 Sodium Potassium Chloride 114.2 H Carbon Dioxide 17 L BUN 44 H Creatinine 3.3 H Glucose 118 H POC Glucose 135 H Lactic Acid 0.60 L Calcium 7.5 L Ionized Calcium Phosphorus Magnesium ALT Alkaline Phosphatase Total Creatine Kinase CK-MB (CK-2) Troponin T C-Reactive Protein Total Protein Albumin Urine WBC (Auto) Urine Creatinine Salicylates Miscellaneous Test Crossmatch 05/16/17 05/16/17 05/16/17 09:38 10:20 10:20 WBC 18.6 H RBC 3.08 L Hgb 9.0 L Hct 29.0 L RDW 18.8 H Plt Count Seg Neuts % (Manual) Lymphocytes % (Manual) 5.0 L Monocytes % (Manual) Nucleated RBC % Seg Neutrophils # Man 11.3 H Lymphocytes # (Manual) 0.9 L Monocytes # (Manual) 1.3 H Eosinophils # (Manual) PT INR APTT D-Dimer POC ABG pH 7.081 L POC ABG pCO2 46.3 H POC ABG pO2 107 H Sodium Potassium Chloride 114.9 H Carbon Dioxide 14 L BUN 44 H Creatinine 3.0 H Glucose 115 H POC Glucose Lactic Acid Calcium 7.3 L Ionized Calcium Phosphorus 5.40 H Magnesium ALT < 5 L Alkaline Phosphatase 17 L Total Creatine Kinase CK-MB (CK-2) Troponin T C-Reactive Protein Total Protein 4.2 L D Albumin 2.9 L Urine WBC (Auto) Urine Creatinine Salicylates Miscellaneous Test Crossmatch 05/17/17 05/17/17 05/17/17 03:44 04:00 05:00 WBC 21.9 H RBC 2.89 L Hgb 8.3 L Hct 26.4 L RDW 18.2 H Plt Count Seg Neuts % (Manual) Lymphocytes % (Manual) 7.0 L Monocytes % (Manual) Nucleated RBC % Seg Neutrophils # Man 15.3 H Lymphocytes # (Manual) Monocytes # (Manual) 1.5 H Eosinophils # (Manual) PT INR APTT D-Dimer POC ABG pH 7.199 L POC ABG pCO2 POC ABG pO2 107 H Sodium Potassium Chloride 111.7 H Carbon Dioxide 16 L BUN 43 H Creatinine 3.4 H Glucose POC Glucose Lactic Acid Calcium 7.3 L Ionized Calcium Phosphorus Magnesium ALT Alkaline Phosphatase Total Creatine Kinase CK-MB (CK-2) Troponin T C-Reactive Protein Total Protein Albumin Urine WBC (Auto) Urine Creatinine Salicylates Miscellaneous Test Crossmatch 05/17/17 05/17/17 05/18/17 05:00 12:20 04:43 WBC RBC Hgb Hct RDW Plt Count Seg Neuts % (Manual) Lymphocytes % (Manual) Monocytes % (Manual) Nucleated RBC % Seg Neutrophils # Man Lymphocytes # (Manual) Monocytes # (Manual) Eosinophils # (Manual) PT INR APTT D-Dimer POC ABG pH 7.251 L POC ABG pCO2 POC ABG pO2 126 H Sodium Potassium Chloride Carbon Dioxide BUN Creatinine Glucose POC Glucose Lactic Acid Calcium Ionized Calcium Phosphorus Magnesium ALT Alkaline Phosphatase Total Creatine Kinase CK-MB (CK-2) Troponin T C-Reactive Protein 2.30 H Total Protein Albumin Urine WBC (Auto) Urine Creatinine Salicylates Miscellaneous Test Flexitest 1 H Crossmatch 05/18/17 05/18/17 05/18/17 14:46 21:30 Unknown WBC RBC Hgb Hct RDW Plt Count Seg Neuts % (Manual) Lymphocytes % (Manual) Monocytes % (Manual) Nucleated RBC % Seg Neutrophils # Man Lymphocytes # (Manual) Monocytes # (Manual) Eosinophils # (Manual) PT INR APTT D-Dimer POC ABG pH 7.227 L POC ABG pCO2 POC ABG pO2 126 H Sodium Potassium 3.2 L Chloride 108.9 H Carbon Dioxide 19 L BUN 44 H Creatinine 3.6 H Glucose POC Glucose 206 H Lactic Acid Calcium 7.3 L Ionized Calcium Phosphorus Magnesium ALT Alkaline Phosphatase Total Creatine Kinase CK-MB (CK-2) Troponin T C-Reactive Protein Total Protein Albumin Urine WBC (Auto) Urine Creatinine Salicylates Miscellaneous Test Crossmatch 05/18/17 05/19/17 05/19/17 Unknown 05:26 06:00 WBC 25.2 H RBC 2.76 L Hgb 8.0 L Hct 24.9 L RDW 17.7 H Plt Count Seg Neuts % (Manual) 86.0 H Lymphocytes % (Manual) 1.0 L Monocytes % (Manual) Nucleated RBC % Seg Neutrophils # Man 21.7 H Lymphocytes # (Manual) 0.3 L Monocytes # (Manual) 1.5 H Eosinophils # (Manual) PT INR APTT D-Dimer POC ABG pH 7.216 L POC ABG pCO2 47.0 H POC ABG pO2 Sodium Potassium Chloride Carbon Dioxide BUN Creatinine Glucose POC Glucose 173 H Lactic Acid Calcium Ionized Calcium Phosphorus Magnesium ALT Alkaline Phosphatase Total Creatine Kinase CK-MB (CK-2) Troponin T C-Reactive Protein Total Protein Albumin Urine WBC (Auto) Urine Creatinine Salicylates Miscellaneous Test Crossmatch 05/19/17 05/19/17 05/19/17 11:47 18:04 23:54 WBC RBC Hgb Hct RDW Plt Count Seg Neuts % (Manual) Lymphocytes % (Manual) Monocytes % (Manual) Nucleated RBC % Seg Neutrophils # Man Lymphocytes # (Manual) Monocytes # (Manual) Eosinophils # (Manual) PT INR APTT D-Dimer POC ABG pH POC ABG pCO2 POC ABG pO2 Sodium Potassium Chloride Carbon Dioxide BUN Creatinine Glucose POC Glucose 203 H 178 H Lactic Acid Calcium Ionized Calcium Phosphorus Magnesium ALT Alkaline Phosphatase Total Creatine Kinase CK-MB (CK-2) Troponin T C-Reactive Protein Total Protein Albumin Urine WBC (Auto) 78.0 H Urine Creatinine Salicylates Miscellaneous Test Crossmatch 05/19/17 05/19/17 05/20/17 Unknown Unknown 05:03 WBC 36.5 H RBC 2.71 L Hgb 7.7 L Hct 24.3 L RDW 18.3 H Plt Count Seg Neuts % (Manual) 79.0 H Lymphocytes % (Manual) 3.0 L Monocytes % (Manual) Nucleated RBC % Seg Neutrophils # Man 28.8 H Lymphocytes # (Manual) 1.1 L Monocytes # (Manual) 2.6 H Eosinophils # (Manual) PT INR APTT D-Dimer POC ABG pH 7.322 L POC ABG pCO2 46.3 H POC ABG pO2 160 H Sodium Potassium 3.5 L Chloride 108.1 H Carbon Dioxide 20 L BUN 36 H Creatinine 3.1 H Glucose 165 H POC Glucose Lactic Acid Calcium 7.7 L Ionized Calcium Phosphorus Magnesium ALT Alkaline Phosphatase Total Creatine Kinase CK-MB (CK-2) Troponin T C-Reactive Protein Total Protein Albumin Urine WBC (Auto) Urine Creatinine Salicylates Miscellaneous Test Crossmatch 05/20/17 05/20/17 05/20/17 05:30 05:30 05:44 WBC 44.4 H* RBC 2.65 L Hgb 7.6 L Hct 23.7 L RDW 18.0 H Plt Count Seg Neuts % (Manual) Lymphocytes % (Manual) 7.0 L Monocytes % (Manual) 12.0 H Nucleated RBC % Seg Neutrophils # Man 22.2 H Lymphocytes # (Manual) Monocytes # (Manual) 5.3 H Eosinophils # (Manual) PT INR APTT D-Dimer POC ABG pH POC ABG pCO2 POC ABG pO2 Sodium Potassium 3.5 L Chloride Carbon Dioxide BUN 23 H Creatinine 2.1 H Glucose 167 H POC Glucose 182 H Lactic Acid Calcium 7.7 L Ionized Calcium Phosphorus Magnesium 1.40 L ALT Alkaline Phosphatase Total Creatine Kinase CK-MB (CK-2) Troponin T C-Reactive Protein Total Protein Albumin Urine WBC (Auto) Urine Creatinine Salicylates Miscellaneous Test Crossmatch 05/20/17 05/20/17 05/20/17 11:59 13:46 13:46 WBC RBC Hgb Hct RDW Plt Count Seg Neuts % (Manual) Lymphocytes % (Manual) Monocytes % (Manual) Nucleated RBC % Seg Neutrophils # Man Lymphocytes # (Manual) Monocytes # (Manual) Eosinophils # (Manual) PT 22.6 H INR 1.89 H APTT 44.6 H D-Dimer POC ABG pH POC ABG pCO2 POC ABG pO2 Sodium Potassium Chloride Carbon Dioxide BUN Creatinine Glucose POC Glucose 162 H Lactic Acid Calcium Ionized Calcium Phosphorus Magnesium ALT Alkaline Phosphatase Total Creatine Kinase CK-MB (CK-2) Troponin T C-Reactive Protein Total Protein Albumin Urine WBC (Auto) Urine Creatinine Salicylates Miscellaneous Test Crossmatch See Detail 05/20/17 05/20/17 05/20/17 17:36 20:00 20:44 WBC 38.3 H RBC 3.60 L Hgb Hct RDW 15.8 H Plt Count Seg Neuts % (Manual) Lymphocytes % (Manual) Monocytes % (Manual) Nucleated RBC % Seg Neutrophils # Man Lymphocytes # (Manual) Monocytes # (Manual) Eosinophils # (Manual) PT 21.4 H INR 1.76 H APTT 172.2 H* D-Dimer POC ABG pH POC ABG pCO2 POC ABG pO2 Sodium Potassium Chloride Carbon Dioxide BUN Creatinine Glucose POC Glucose 144 H Lactic Acid Calcium Ionized Calcium Phosphorus Magnesium ALT Alkaline Phosphatase Total Creatine Kinase CK-MB (CK-2) Troponin T C-Reactive Protein Total Protein Albumin Urine WBC (Auto) Urine Creatinine Salicylates Miscellaneous Test Crossmatch 05/20/17 05/20/17 05/21/17 22:20 23:37 05:20 WBC RBC Hgb Hct RDW Plt Count Seg Neuts % (Manual) Lymphocytes % (Manual) Monocytes % (Manual) Nucleated RBC % Seg Neutrophils # Man Lymphocytes # (Manual) Monocytes # (Manual) Eosinophils # (Manual) PT INR APTT 42.8 H D-Dimer POC ABG pH POC ABG pCO2 POC ABG pO2 Sodium Potassium 3.5 L Chloride Carbon Dioxide BUN Creatinine 1.5 H Glucose 106 H POC Glucose 113 H Lactic Acid Calcium 7.7 L Ionized Calcium Phosphorus Magnesium ALT Alkaline Phosphatase Total Creatine Kinase CK-MB (CK-2) Troponin T C-Reactive Protein Total Protein Albumin Urine WBC (Auto) Urine Creatinine Salicylates Miscellaneous Test Crossmatch 05/21/17 05/21/17 05/21/17 05:20 05:20 05:31 WBC 31.6 H RBC Hgb Hct RDW 15.8 H Plt Count Seg Neuts % (Manual) 90.0 H Lymphocytes % (Manual) 3.0 L Monocytes % (Manual) Nucleated RBC % Seg Neutrophils # Man 28.4 H Lymphocytes # (Manual) 0.9 L Monocytes # (Manual) Eosinophils # (Manual) 1.3 H PT 19.1 H INR 1.53 H APTT 37.9 H D-Dimer POC ABG pH POC ABG pCO2 POC ABG pO2 Sodium Potassium Chloride Carbon Dioxide BUN Creatinine Glucose POC Glucose 126 H Lactic Acid Calcium Ionized Calcium Phosphorus Magnesium ALT Alkaline Phosphatase Total Creatine Kinase CK-MB (CK-2) Troponin T C-Reactive Protein Total Protein Albumin Urine WBC (Auto) Urine Creatinine Salicylates Miscellaneous Test Crossmatch 05/21/17 05/21/17 05/21/17 12:46 13:00 13:00 WBC 32.9 H RBC 3.09 L Hgb 9.0 L Hct 27.6 L RDW 16.3 H Plt Count Seg Neuts % (Manual) 86.0 H Lymphocytes % (Manual) 2.0 L Monocytes % (Manual) Nucleated RBC % 2.0 H Seg Neutrophils # Man 28.3 H Lymphocytes # (Manual) 0.7 L Monocytes # (Manual) Eosinophils # (Manual) PT INR APTT D-Dimer POC ABG pH POC ABG pCO2 POC ABG pO2 Sodium Potassium 3.3 L Chloride 108.4 H Carbon Dioxide 20 L BUN Creatinine 1.4 H Glucose 119 H POC Glucose 157 H Lactic Acid Calcium 6.5 L D Ionized Calcium Phosphorus Magnesium ALT Alkaline Phosphatase 28 L Total Creatine Kinase CK-MB (CK-2) Troponin T C-Reactive Protein Total Protein 3.2 L Albumin 1.7 L Urine WBC (Auto) Urine Creatinine Salicylates Miscellaneous Test Crossmatch 05/21/17 05/21/17 05/21/17 13:00 18:15 21:00 WBC 42.4 H* RBC 2.85 L Hgb 8.2 L Hct 25.9 L RDW 16.3 H Plt Count Seg Neuts % (Manual) 95.0 H Lymphocytes % (Manual) 3.0 L Monocytes % (Manual) Nucleated RBC % Seg Neutrophils # Man 40.3 H Lymphocytes # (Manual) Monocytes # (Manual) Eosinophils # (Manual) PT 19.7 H INR 1.59 H APTT 41.1 H D-Dimer POC ABG pH POC ABG pCO2 POC ABG pO2 Sodium Potassium Chloride Carbon Dioxide BUN Creatinine Glucose POC Glucose 149 H Lactic Acid Calcium Ionized Calcium Phosphorus Magnesium ALT Alkaline Phosphatase Total Creatine Kinase CK-MB (CK-2) Troponin T C-Reactive Protein Total Protein Albumin Urine WBC (Auto) Urine Creatinine Salicylates Miscellaneous Test Crossmatch 05/22/17 05/22/17 05/22/17 00:02 04:50 04:50 WBC RBC Hgb Hct RDW Plt Count Seg Neuts % (Manual) Lymphocytes % (Manual) Monocytes % (Manual) Nucleated RBC % Seg Neutrophils # Man Lymphocytes # (Manual) Monocytes # (Manual) Eosinophils # (Manual) PT INR APTT D-Dimer POC ABG pH POC ABG pCO2 POC ABG pO2 Sodium Potassium Chloride 109.4 H Carbon Dioxide 18 L BUN Creatinine 1.8 H Glucose 164 H POC Glucose 155 H Lactic Acid Calcium 6.6 L Ionized Calcium Phosphorus Magnesium 1.40 L ALT Alkaline Phosphatase 33 L Total Creatine Kinase CK-MB (CK-2) Troponin T C-Reactive Protein Total Protein 3.6 L Albumin 2.0 L Urine WBC (Auto) Urine Creatinine Salicylates Miscellaneous Test Crossmatch 05/22/17 05/22/17 05/22/17 04:50 04:50 05:39 WBC 41.8 H* RBC 2.65 L Hgb 7.8 L Hct 24.1 L RDW 16.5 H Plt Count Seg Neuts % (Manual) 73.0 H Lymphocytes % (Manual) 4.0 L Monocytes % (Manual) Nucleated RBC % Seg Neutrophils # Man 30.5 H Lymphocytes # (Manual) Monocytes # (Manual) 1.3 H Eosinophils # (Manual) PT 21.3 H INR 1.75 H APTT 39.4 H D-Dimer POC ABG pH POC ABG pCO2 POC ABG pO2 Sodium Potassium Chloride Carbon Dioxide BUN Creatinine Glucose POC Glucose 200 H Lactic Acid Calcium Ionized Calcium Phosphorus Magnesium ALT Alkaline Phosphatase Total Creatine Kinase CK-MB (CK-2) Troponin T C-Reactive Protein Total Protein Albumin Urine WBC (Auto) Urine Creatinine Salicylates Miscellaneous Test Crossmatch 05/22/17 05/22/17 05/22/17 05:46 10:32 11:41 WBC RBC Hgb Hct RDW Plt Count Seg Neuts % (Manual) Lymphocytes % (Manual) Monocytes % (Manual) Nucleated RBC % Seg Neutrophils # Man Lymphocytes # (Manual) Monocytes # (Manual) Eosinophils # (Manual) PT INR APTT D-Dimer POC ABG pH 7.225 L 7.317 L POC ABG pCO2 45.3 H POC ABG pO2 Sodium Potassium Chloride Carbon Dioxide BUN Creatinine Glucose POC Glucose 169 H Lactic Acid Calcium Ionized Calcium Phosphorus Magnesium ALT Alkaline Phosphatase Total Creatine Kinase CK-MB (CK-2) Troponin T C-Reactive Protein Total Protein Albumin Urine WBC (Auto) Urine Creatinine Salicylates Miscellaneous Test Crossmatch 05/22/17 05/22/17 05/22/17 12:45 18:01 22:50 WBC RBC Hgb 7.4 L 8.8 L Hct 23.5 L 27.8 L RDW Plt Count Seg Neuts % (Manual) Lymphocytes % (Manual) Monocytes % (Manual) Nucleated RBC % Seg Neutrophils # Man Lymphocytes # (Manual) Monocytes # (Manual) Eosinophils # (Manual) PT INR APTT D-Dimer POC ABG pH POC ABG pCO2 POC ABG pO2 Sodium Potassium Chloride Carbon Dioxide BUN Creatinine Glucose POC Glucose 148 H Lactic Acid Calcium Ionized Calcium Phosphorus Magnesium ALT Alkaline Phosphatase Total Creatine Kinase CK-MB (CK-2) Troponin T C-Reactive Protein Total Protein Albumin Urine WBC (Auto) Urine Creatinine Salicylates Miscellaneous Test Crossmatch 05/22/17 05/23/17 05/23/17 23:53 05:15 05:15 WBC 40.9 H* RBC 3.06 L Hgb 8.9 L Hct 27.4 L RDW 16.7 H Plt Count Seg Neuts % (Manual) 93.0 H Lymphocytes % (Manual) 3.0 L Monocytes % (Manual) Nucleated RBC % Seg Neutrophils # Man 38.0 H Lymphocytes # (Manual) Monocytes # (Manual) Eosinophils # (Manual) PT INR APTT D-Dimer POC ABG pH POC ABG pCO2 POC ABG pO2 Sodium Potassium Chloride 110.6 H Carbon Dioxide 19 L BUN 18 H Creatinine 1.9 H Glucose 102 H POC Glucose 143 H Lactic Acid Calcium 7.0 L Ionized Calcium Phosphorus Magnesium ALT Alkaline Phosphatase Total Creatine Kinase CK-MB (CK-2) Troponin T C-Reactive Protein Total Protein Albumin Urine WBC (Auto) Urine Creatinine Salicylates Miscellaneous Test Crossmatch 05/23/17 05/23/17 05/23/17 05:23 06:09 08:55 WBC RBC Hgb Hct RDW Plt Count Seg Neuts % (Manual) Lymphocytes % (Manual) Monocytes % (Manual) Nucleated RBC % Seg Neutrophils # Man Lymphocytes # (Manual) Monocytes # (Manual) Eosinophils # (Manual) PT INR APTT D-Dimer POC ABG pH 7.240 L 7.297 L POC ABG pCO2 POC ABG pO2 Sodium Potassium Chloride Carbon Dioxide BUN Creatinine Glucose POC Glucose 124 H Lactic Acid Calcium Ionized Calcium Phosphorus Magnesium ALT Alkaline Phosphatase Total Creatine Kinase CK-MB (CK-2) Troponin T C-Reactive Protein Total Protein Albumin Urine WBC (Auto) Urine Creatinine Salicylates Miscellaneous Test Crossmatch 05/23/17 05/23/17 05/23/17 12:46 16:55 18:33 WBC RBC Hgb Hct RDW Plt Count Seg Neuts % (Manual) Lymphocytes % (Manual) Monocytes % (Manual) Nucleated RBC % Seg Neutrophils # Man Lymphocytes # (Manual) Monocytes # (Manual) Eosinophils # (Manual) PT INR APTT D-Dimer POC ABG pH POC ABG pCO2 POC ABG pO2 Sodium Potassium Chloride Carbon Dioxide BUN Creatinine Glucose POC Glucose 159 H 139 H Lactic Acid Calcium Ionized Calcium Phosphorus Magnesium ALT Alkaline Phosphatase Total Creatine Kinase CK-MB (CK-2) Troponin T C-Reactive Protein 7.10 H Total Protein Albumin Urine WBC (Auto) Urine Creatinine Salicylates Miscellaneous Test Crossmatch 05/23/17 05/24/17 05/24/17 23:25 06:14 07:16 WBC RBC Hgb Hct RDW Plt Count Seg Neuts % (Manual) Lymphocytes % (Manual) Monocytes % (Manual) Nucleated RBC % Seg Neutrophils # Man Lymphocytes # (Manual) Monocytes # (Manual) Eosinophils # (Manual) PT INR APTT D-Dimer POC ABG pH POC ABG pCO2 POC ABG pO2 Sodium Potassium Chloride Carbon Dioxide BUN Creatinine 1.5 H Glucose 130 H POC Glucose 143 H 159 H Lactic Acid Calcium 7.6 L Ionized Calcium Phosphorus Magnesium ALT Alkaline Phosphatase Total Creatine Kinase CK-MB (CK-2) Troponin T C-Reactive Protein Total Protein Albumin Urine WBC (Auto) Urine Creatinine Salicylates Miscellaneous Test Crossmatch 05/24/17 05/24/17 05/24/17 07:16 11:42 17:27 WBC 36.9 H RBC 2.90 L Hgb 8.5 L Hct 26.2 L RDW 16.8 H Plt Count Seg Neuts % (Manual) 96.5 H Lymphocytes % (Manual) 0 L Monocytes % (Manual) Nucleated RBC % 2.0 H Seg Neutrophils # Man 35.6 H Lymphocytes # (Manual) 0.0 L Monocytes # (Manual) 0.9 H Eosinophils # (Manual) PT INR APTT D-Dimer POC ABG pH POC ABG pCO2 POC ABG pO2 Sodium Potassium Chloride Carbon Dioxide BUN Creatinine Glucose POC Glucose 168 H 59 L Lactic Acid Calcium Ionized Calcium Phosphorus Magnesium ALT Alkaline Phosphatase Total Creatine Kinase CK-MB (CK-2) Troponin T C-Reactive Protein Total Protein Albumin Urine WBC (Auto) Urine Creatinine Salicylates Miscellaneous Test Crossmatch 05/24/17 05/24/17 05/25/17 18:43 23:47 05:37 WBC RBC Hgb Hct RDW Plt Count Seg Neuts % (Manual) Lymphocytes % (Manual) Monocytes % (Manual) Nucleated RBC % Seg Neutrophils # Man Lymphocytes # (Manual) Monocytes # (Manual) Eosinophils # (Manual) PT INR APTT D-Dimer POC ABG pH POC ABG pCO2 POC ABG pO2 Sodium Potassium Chloride Carbon Dioxide BUN Creatinine Glucose POC Glucose 139 H 150 H 152 H Lactic Acid Calcium Ionized Calcium Phosphorus Magnesium ALT Alkaline Phosphatase Total Creatine Kinase CK-MB (CK-2) Troponin T C-Reactive Protein Total Protein Albumin Urine WBC (Auto) Urine Creatinine Salicylates Miscellaneous Test Crossmatch 05/25/17 05/25/17 05/25/17 07:08 07:08 12:06 WBC 31.7 H RBC 2.81 L Hgb 8.2 L Hct 25.4 L RDW 16.3 H Plt Count Seg Neuts % (Manual) 97.0 H Lymphocytes % (Manual) 1.5 L Monocytes % (Manual) Nucleated RBC % 3.5 H Seg Neutrophils # Man 30.7 H Lymphocytes # (Manual) 0.5 L Monocytes # (Manual) Eosinophils # (Manual) PT INR APTT D-Dimer POC ABG pH POC ABG pCO2 POC ABG pO2 Sodium Potassium Chloride Carbon Dioxide BUN 24 H Creatinine 1.5 H Glucose 126 H POC Glucose 178 H Lactic Acid Calcium 8.0 L Ionized Calcium Phosphorus Magnesium ALT Alkaline Phosphatase Total Creatine Kinase CK-MB (CK-2) Troponin T C-Reactive Protein Total Protein Albumin Urine WBC (Auto) Urine Creatinine Salicylates Miscellaneous Test Crossmatch 05/25/17 05/25/17 05/26/17 17:47 23:30 05:32 WBC RBC Hgb Hct RDW Plt Count Seg Neuts % (Manual) Lymphocytes % (Manual) Monocytes % (Manual) Nucleated RBC % Seg Neutrophils # Man Lymphocytes # (Manual) Monocytes # (Manual) Eosinophils # (Manual) PT INR APTT D-Dimer POC ABG pH POC ABG pCO2 POC ABG pO2 Sodium Potassium Chloride Carbon Dioxide BUN Creatinine Glucose POC Glucose 123 H 125 H 182 H Lactic Acid Calcium Ionized Calcium Phosphorus Magnesium ALT Alkaline Phosphatase Total Creatine Kinase CK-MB (CK-2) Troponin T C-Reactive Protein Total Protein Albumin Urine WBC (Auto) Urine Creatinine Salicylates Miscellaneous Test Crossmatch 05/26/17 05/26/17 05/26/17 06:00 07:15 07:15 WBC 21.0 H RBC 2.72 L Hgb 7.8 L Hct 24.5 L RDW 16.5 H Plt Count Seg Neuts % (Manual) 88.0 H Lymphocytes % (Manual) 6.0 L Monocytes % (Manual) Nucleated RBC % 3.0 H Seg Neutrophils # Man 18.5 H Lymphocytes # (Manual) Monocytes # (Manual) Eosinophils # (Manual) PT INR APTT D-Dimer POC ABG pH POC ABG pCO2 POC ABG pO2 Sodium Potassium Chloride Carbon Dioxide BUN 34 H 34 H Creatinine 1.5 H 1.5 H Glucose 148 H 145 H POC Glucose Lactic Acid Calcium 8.1 L 8.2 L Ionized Calcium Phosphorus Magnesium ALT < 5 L Alkaline Phosphatase Total Creatine Kinase CK-MB (CK-2) Troponin T C-Reactive Protein Total Protein 4.0 L Albumin 2.3 L Urine WBC (Auto) Urine Creatinine Salicylates Miscellaneous Test Crossmatch 05/26/17 05/26/17 05/26/17 10:50 12:16 18:14 WBC RBC Hgb Hct RDW Plt Count Seg Neuts % (Manual) Lymphocytes % (Manual) Monocytes % (Manual) Nucleated RBC % Seg Neutrophils # Man Lymphocytes # (Manual) Monocytes # (Manual) Eosinophils # (Manual) PT INR APTT D-Dimer POC ABG pH POC ABG pCO2 POC ABG pO2 Sodium Potassium Chloride Carbon Dioxide BUN Creatinine Glucose POC Glucose 143 H 161 H Lactic Acid Calcium Ionized Calcium Phosphorus Magnesium ALT Alkaline Phosphatase Total Creatine Kinase CK-MB (CK-2) Troponin T C-Reactive Protein Total Protein Albumin Urine WBC (Auto) Urine Creatinine Salicylates Miscellaneous Test Crossmatch See Detail 05/26/17 05/26/17 05/27/17 19:02 23:46 05:17 WBC 19.8 H RBC 3.35 L Hgb 9.7 L Hct 29.3 L RDW 17.8 H Plt Count Seg Neuts % (Manual) 89.0 H Lymphocytes % (Manual) 6.0 L Monocytes % (Manual) Nucleated RBC % Seg Neutrophils # Man 17.6 H Lymphocytes # (Manual) Monocytes # (Manual) Eosinophils # (Manual) PT INR APTT D-Dimer POC ABG pH POC ABG pCO2 POC ABG pO2 Sodium Potassium Chloride Carbon Dioxide BUN Creatinine Glucose POC Glucose 108 H 173 H Lactic Acid Calcium Ionized Calcium Phosphorus Magnesium ALT Alkaline Phosphatase Total Creatine Kinase CK-MB (CK-2) Troponin T C-Reactive Protein Total Protein Albumin Urine WBC (Auto) Urine Creatinine Salicylates Miscellaneous Test Crossmatch 05/27/17 05/27/17 05/27/17 06:05 06:05 11:44 WBC 20.2 H RBC 3.30 L Hgb 9.2 L Hct 28.6 L RDW 17.7 H Plt Count Seg Neuts % (Manual) 83.0 H Lymphocytes % (Manual) 7.0 L Monocytes % (Manual) Nucleated RBC % 1.0 H Seg Neutrophils # Man 16.8 H Lymphocytes # (Manual) Monocytes # (Manual) 1.2 H Eosinophils # (Manual) PT INR APTT D-Dimer POC ABG pH POC ABG pCO2 POC ABG pO2 Sodium Potassium Chloride Carbon Dioxide BUN 39 H Creatinine 1.4 H Glucose 162 H POC Glucose 138 H Lactic Acid Calcium 8.1 L Ionized Calcium Phosphorus Magnesium ALT Alkaline Phosphatase Total Creatine Kinase CK-MB (CK-2) Troponin T C-Reactive Protein Total Protein Albumin Urine WBC (Auto) Urine Creatinine Salicylates Miscellaneous Test Crossmatch 05/27/17 05/27/17 05/28/17 16:58 21:39 04:00 WBC RBC Hgb Hct RDW Plt Count Seg Neuts % (Manual) Lymphocytes % (Manual) Monocytes % (Manual) Nucleated RBC % Seg Neutrophils # Man Lymphocytes # (Manual) Monocytes # (Manual) Eosinophils # (Manual) PT INR APTT D-Dimer POC ABG pH POC ABG pCO2 POC ABG pO2 Sodium Potassium Chloride Carbon Dioxide BUN 44 H Creatinine Glucose 148 H POC Glucose 148 H 149 H Lactic Acid Calcium 8.2 L Ionized Calcium Phosphorus Magnesium ALT Alkaline Phosphatase Total Creatine Kinase CK-MB (CK-2) Troponin T C-Reactive Protein Total Protein Albumin Urine WBC (Auto) Urine Creatinine Salicylates Miscellaneous Test Crossmatch 05/28/17 04:00 WBC 17.4 H RBC 3.08 L Hgb 9.0 L Hct 27.2 L RDW 17.6 H Plt Count Seg Neuts % (Manual) 75.0 H Lymphocytes % (Manual) 5.0 L Monocytes % (Manual) 10.0 H Nucleated RBC % 2.0 H Seg Neutrophils # Man 13.1 H Lymphocytes # (Manual) 0.9 L Monocytes # (Manual) 1.7 H Eosinophils # (Manual) 0.5 H PT INR APTT D-Dimer POC ABG pH POC ABG pCO2 POC ABG pO2 Sodium Potassium Chloride Carbon Dioxide BUN Creatinine Glucose POC Glucose Lactic Acid Calcium Ionized Calcium Phosphorus Magnesium ALT Alkaline Phosphatase Total Creatine Kinase CK-MB (CK-2) Troponin T C-Reactive Protein Total Protein Albumin Urine WBC (Auto) Urine Creatinine Salicylates Miscellaneous Test Crossmatch
--- NOTE | 2017-05-28 11:21 | Progress Note ---
Assessment and Plan Assessment: 1) Persistent Septic Shock - resolved, leukocytosis better- leukocytosis likely from recent splenectomy; etiology - severe C diff colitis. CRP=14 -->2.3. Procal=2.4 -->1.7 2) Severe C diff Colitis: severe-recently exposed to broad spectrum abx. CT abd showed colitis. 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 reactive from colitis versus real - resolved 4) LUIS-worsening - now on HD 6) COPD 7) Resp failure -resolved Plan: -stop IV flagyl -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: Prevnar single dose and 8 weeks later Pneumovax Haemophilus influenza vaccine - one dose Menactra - (meningococcal vaccine) - one dose -monitor off antibiotics Thank you Dr Olson for your consultation, will follow up with you. Winifred Guerrero MD Infectious Diseases Specialist [facility] ([facility]) M [phone] O [phone] Subjective Date of service: 05/28/17 Principal diagnosis: Septic shock,C. diff colitis Interval history: Off pressors, extubated no fever. Microbiology: Blood cultures: 05/05 neg 05/23 ngtd Urine cultures: 05/05 neg 05/19 billy Stool cultures: C diff 05/04 POSITIVE Resp culture: 05/16 neg Current Antimicrobials: Metronidazole 05/05 Previous Antimicrobials: Zosyn Levaquin Vancomycin PO Metronidazole Vanco rectal 05/07 Ceftriaxone 05/11 meropenem 05/17 Objective - Constitutional Vitals: Vital Signs Temp Pulse Resp BP Pulse Ox 97.4 F L 101 H 29 H 93/49 100 05/28/17 08:00 05/28/17 11:01 05/28/17 11:01 05/28/17 11:01 05/28/17 11:01 Temperature -Last 24 Hours Temperature 97.4 F Temperature 98.6 F Temperature 98.6 F Temperature 97.5 F Temperature 97.5 F Temperature 97.8 F Temperature 98.1 F - Labs CBC & Chem 7: 05/28/17 04:00 05/28/17 04:00 Labs: Abnormal lab results 05/27/17 05/27/17 05/27/17 Range/Units 11:44 16:58 21:39 WBC (4.5-11.0) K/mm3 RBC (3.65-5.03) M/mm3 Hgb (10.1-14.3) gm/dl Hct (30.3-42.9) % RDW (13.2-15.2) % Seg Neuts % (Manual) (40.0-70.0) % Lymphocytes % (Manual) (13.4-35.0) % Monocytes % (Manual) (0.0-7.3) % Nucleated RBC % (0.0-0.9) % Seg Neutrophils # Man (1.8-7.7) K/mm3 Lymphocytes # (Manual) (1.2-5.4) K/mm3 Monocytes # (Manual) (0.0-0.8) K/mm3 Eosinophils # (Manual) (0.0-0.4) K/mm3 BUN (7-17) mg/dL Glucose (65-100) mg/dL POC Glucose 138 H 148 H 149 H (70-105) Calcium (8.4-10.2) mg/dL 05/28/17 05/28/17 Range/Units 04:00 04:00 WBC 17.4 H (4.5-11.0) K/mm3 RBC 3.08 L (3.65-5.03) M/mm3 Hgb 9.0 L (10.1-14.3) gm/dl Hct 27.2 L (30.3-42.9) % RDW 17.6 H (13.2-15.2) % Seg Neuts % (Manual) 75.0 H (40.0-70.0) % Lymphocytes % (Manual) 5.0 L (13.4-35.0) % Monocytes % (Manual) 10.0 H (0.0-7.3) % Nucleated RBC % 2.0 H (0.0-0.9) % Seg Neutrophils # Man 13.1 H (1.8-7.7) K/mm3 Lymphocytes # (Manual) 0.9 L (1.2-5.4) K/mm3 Monocytes # (Manual) 1.7 H (0.0-0.8) K/mm3 Eosinophils # (Manual) 0.5 H (0.0-0.4) K/mm3 BUN 44 H (7-17) mg/dL Glucose 148 H (65-100) mg/dL POC Glucose (70-105) Calcium 8.2 L (8.4-10.2) mg/dL
--- NOTE | 2017-05-28 11:38 | Progress Note ---
Assessment and Plan Pt sitting up in bed today. awake, alert. NAD. keara cl liq well. BP holding up Abd soft. drain removed surgically stable advance to full liq diet may taper TPN if diet keara Selected Entries 05/28/17 10:45 Respiratory 20 Rate Blood Pressure 102/56 Laboratory Tests 05/28/17 05/28/17 04:00 04:00 WBC 17.4 H Hgb 9.0 L Hct 27.2 L Sodium 141 Potassium 4.6 Chloride 104.7 Carbon Dioxide 29 BUN 44 H Creatinine 1.2 Glucose 148 H Objective Vital Signs - 12hr 05/27/17 05/27/17 05/28/17 23:39 23:45 00:00 Temperature 98.6 F Pulse Rate 96 H 102 H Pulse Rate [ Anterior Bilateral Throughout] Pulse Rate [ From Monitor] Respiratory 29 H 24 Rate Respiratory Rate [Anterior Bilateral Throughout] Blood Pressure 111/51 111/51 O2 Sat by Pulse 97 Oximetry 05/28/17 05/28/17 05/28/17 00:01 00:15 00:31 Temperature Pulse Rate 92 H 93 H 92 H Pulse Rate [ Anterior Bilateral Throughout] Pulse Rate [ From Monitor] Respiratory 26 H 28 H 22 Rate Respiratory Rate [Anterior Bilateral Throughout] Blood Pressure 100/53 100/53 131/69 O2 Sat by Pulse 98 98 99 Oximetry 05/28/17 05/28/17 05/28/17 00:45 01:01 01:15 Temperature Pulse Rate 94 H 85 91 H Pulse Rate [ Anterior Bilateral Throughout] Pulse Rate [ From Monitor] Respiratory 22 24 25 H Rate Respiratory Rate [Anterior Bilateral Throughout] Blood Pressure 131/69 118/58 118/58 O2 Sat by Pulse 97 95 100 Oximetry 05/28/17 05/28/17 05/28/17 01:30 01:45 02:00 Temperature Pulse Rate 97 H 79 78 Pulse Rate [ Anterior Bilateral Throughout] Pulse Rate [ From Monitor] Respiratory 25 H 24 23 Rate Respiratory Rate [Anterior Bilateral Throughout] Blood Pressure 107/53 107/53 106/51 O2 Sat by Pulse 99 100 99 Oximetry 05/28/17 05/28/17 05/28/17 02:15 02:30 02:45 Temperature Pulse Rate 90 76 89 Pulse Rate [ Anterior Bilateral Throughout] Pulse Rate [ From Monitor] Respiratory 23 23 20 Rate Respiratory Rate [Anterior Bilateral Throughout] Blood Pressure 106/51 104/47 104/47 O2 Sat by Pulse 100 99 100 Oximetry 05/28/17 05/28/17 05/28/17 03:00 03:15 03:30 Temperature Pulse Rate 89 89 75 Pulse Rate [ Anterior Bilateral Throughout] Pulse Rate [ From Monitor] Respiratory 22 21 19 Rate Respiratory Rate [Anterior Bilateral Throughout] Blood Pressure 107/53 107/53 110/55 O2 Sat by Pulse 100 100 100 Oximetry 05/28/17 05/28/17 05/28/17 03:45 04:00 04:15 Temperature 98.6 F Pulse Rate 80 73 84 Pulse Rate [ Anterior Bilateral Throughout] Pulse Rate [ From Monitor] Respiratory 21 22 21 Rate Respiratory Rate [Anterior Bilateral Throughout] Blood Pressure 110/55 96/53 96/53 O2 Sat by Pulse 100 100 99 Oximetry 05/28/17 05/28/17 05/28/17 04:30 04:45 05:00 Temperature Pulse Rate 76 75 93 H Pulse Rate [ Anterior Bilateral Throughout] Pulse Rate [ From Monitor] Respiratory 22 21 22 Rate Respiratory Rate [Anterior Bilateral Throughout] Blood Pressure 99/49 99/49 99/50 O2 Sat by Pulse 97 99 100 Oximetry 05/28/17 05/28/17 05/28/17 05:15 05:31 05:45 Temperature Pulse Rate 87 96 H 69 Pulse Rate [ Anterior Bilateral Throughout] Pulse Rate [ From Monitor] Respiratory 21 22 23 Rate Respiratory Rate [Anterior Bilateral Throughout] Blood Pressure 99/50 106/49 106/49 O2 Sat by Pulse 99 96 100 Oximetry 05/28/17 05/28/17 05/28/17 06:00 06:15 06:30 Temperature Pulse Rate 72 72 99 H Pulse Rate [ Anterior Bilateral Throughout] Pulse Rate [ From Monitor] Respiratory 23 23 15 Rate Respiratory Rate [Anterior Bilateral Throughout] Blood Pressure 108/49 108/49 113/59 O2 Sat by Pulse 98 99 96 Oximetry 05/28/17 05/28/17 05/28/17 06:45 07:00 07:15 Temperature Pulse Rate 118 H 88 87 Pulse Rate [ Anterior Bilateral Throughout] Pulse Rate [ From Monitor] Respiratory 17 17 15 Rate Respiratory Rate [Anterior Bilateral Throughout] Blood Pressure 113/59 94/56 94/56 O2 Sat by Pulse 100 100 99 Oximetry 05/28/17 05/28/17 05/28/17 07:30 07:34 07:35 Temperature Pulse Rate 86 Pulse Rate [ 86 Anterior Bilateral Throughout] Pulse Rate [ From Monitor] Respiratory 22 Rate Respiratory 16 Rate [Anterior Bilateral Throughout] Blood Pressure 103/58 O2 Sat by Pulse 98 99 Oximetry 05/28/17 05/28/17 05/28/17 07:45 07:47 08:00 Temperature 97.4 F L Pulse Rate 98 H 98 H Pulse Rate [ 96 H Anterior Bilateral Throughout] Pulse Rate [ 113 H From Monitor] Respiratory 22 18 Rate Respiratory 22 Rate [Anterior Bilateral Throughout] Blood Pressure 103/58 104/57 O2 Sat by Pulse 100 99 Oximetry 05/28/17 05/28/17 05/28/17 08:15 08:31 08:45 Temperature Pulse Rate 102 H 138 H 122 H Pulse Rate [ Anterior Bilateral Throughout] Pulse Rate [ From Monitor] Respiratory 25 H 21 22 Rate Respiratory Rate [Anterior Bilateral Throughout] Blood Pressure 104/57 104/57 104/57 O2 Sat by Pulse 100 99 100 Oximetry 05/28/17 05/28/17 05/28/17 09:01 09:15 09:30 Temperature Pulse Rate 118 H 106 H 109 H Pulse Rate [ Anterior Bilateral Throughout] Pulse Rate [ From Monitor] Respiratory 21 22 23 Rate Respiratory Rate [Anterior Bilateral Throughout] Blood Pressure 104/57 121/67 116/62 O2 Sat by Pulse 100 100 100 Oximetry 05/28/17 05/28/17 05/28/17 09:45 10:00 10:15 Temperature Pulse Rate 106 H 100 H 125 H Pulse Rate [ Anterior Bilateral Throughout] Pulse Rate [ From Monitor] Respiratory 24 21 25 H Rate Respiratory Rate [Anterior Bilateral Throughout] Blood Pressure 116/62 109/53 109/53 O2 Sat by Pulse 99 99 97 Oximetry 05/28/17 05/28/17 05/28/17 10:30 10:45 11:01 Temperature Pulse Rate 100 H 97 H 101 H Pulse Rate [ Anterior Bilateral Throughout] Pulse Rate [ From Monitor] Respiratory 26 H 20 29 H Rate Respiratory Rate [Anterior Bilateral Throughout] Blood Pressure 102/56 102/56 93/49 O2 Sat by Pulse 99 100 100 Oximetry - Labs 05/28/17 04:00 05/28/17 04:00 Diabetes panel 05/28/17 Range/Units 04:00 Sodium 141 (137-145) mmol/L Potassium 4.6 (3.6-5.0) mmol/L Chloride 104.7 (98-107) mmol/L Carbon Dioxide 29 (22-30) mmol/L BUN 44 H (7-17) mg/dL Creatinine 1.2 (0.7-1.2) mg/dL Glucose 148 H (65-100) mg/dL Calcium 8.2 L (8.4-10.2) mg/dL Calcium panel 05/28/17 05/28/17 Range/Units 04:00 04:00 Calcium 8.2 L (8.4-10.2) mg/dL Phosphorus 3.70 (2.5-4.5) mg/dL Pituitary panel 05/28/17 Range/Units 04:00 Sodium 141 (137-145) mmol/L Potassium 4.6 (3.6-5.0) mmol/L Chloride 104.7 (98-107) mmol/L Carbon Dioxide 29 (22-30) mmol/L BUN 44 H (7-17) mg/dL Creatinine 1.2 (0.7-1.2) mg/dL Glucose 148 H (65-100) mg/dL Calcium 8.2 L (8.4-10.2) mg/dL Adrenal panel 05/28/17 Range/Units 04:00 Sodium 141 (137-145) mmol/L Potassium 4.6 (3.6-5.0) mmol/L Chloride 104.7 (98-107) mmol/L Carbon Dioxide 29 (22-30) mmol/L BUN 44 H (7-17) mg/dL Creatinine 1.2 (0.7-1.2) mg/dL Glucose 148 H (65-100) mg/dL Calcium 8.2 L (8.4-10.2) mg/dL
--- NOTE | 2017-05-28 16:40 | Progress Note ---
Assessment and Plan Assessment and plan: C. difficile colitis - Patient is on Flagyl Sepsis - Patient is off pressors, was treated with meropenem Status post partial colectomy - Surgical wound is stable - Patient tolerated liquid diet - Surgery is following Acute on chronic renal failure - Nephrology is following COPD exacerbation, acute on chronic respiratory - Pulmonary following - Patient is extubated and on intranasal oxygen Anemia - Stable DVT prophylaxis Disposition - Transfer to the floor. The high probability of a clinically significant, sudden or life threatening deterioration of the [GI] system(s) required my full and direct attention, intervention and personal management. The aggregate critical care time was [31] minutes. This time is in addition to time spent performing reported procedures but includes the following: [x] Data Review and interpretation [x] Patient assessment and monitoring of vital signs [x] Documentation [x] Medication orders and management History Interval history: Patient was seen and evaluated this morning, patient was extubated and on intranasal oxygen. Hospitalist Physical - Physical exam Narrative exam: Not in cardiopulmonary distress. On intranasal oxygen The patient appeared well nourished and normally developed. Vital signs as documented. Head exam is unremarkable. No scleral icterus . Neck is without jugular venous distension, thyromegaly, or carotid bruits. Lungs are clear to auscultation. Cardiac exam reveals regular rate and Rhythm. First and second heart sounds normal. No murmurs, rubs or gallops. Abdominal clean dressing. Extremities are nonedematous and both femoral and pedal pulses are normal. CUSTOMER RELATIONS REPRESENTATIVE: Alert and oriented 3. No focal weakness. - Constitutional Vitals: Temp Pulse Resp BP Pulse Ox 97.8 F 122 H 22 89/53 99 05/28/17 12:00 05/28/17 14:15 05/28/17 14:15 05/28/17 14:15 05/28/17 14:15 General appearance: Present: no acute distress, mild distress, well-nourished, other (intubatd and vent supported) Results - Labs CBC & Chem 7: 05/28/17 04:00 05/28/17 04:00 Labs: Laboratory Last Values WBC 17.4 K/mm3 (4.5-11.0) H 05/28/17 04:00 RBC 3.08 M/mm3 (3.65-5.03) L 05/28/17 04:00 Hgb 9.0 gm/dl (10.1-14.3) L 05/28/17 04:00 Hct 27.2 % (30.3-42.9) L 05/28/17 04:00 MCV 88 fl (79-97) 05/28/17 04:00 MCH 29 pg (28-32) 05/28/17 04:00 MCHC 33 % (30-34) 05/28/17 04:00 RDW 17.6 % (13.2-15.2) H 05/28/17 04:00 Plt Count 196 K/mm3 (140-440) 05/28/17 04:00 [place] % (Auto) % (0.0-7.3) 05/22/17 04:50 Eos % (Auto) % (0.0-4.3) 05/22/17 04:50 [place] # K/mm3 (0.0-0.8) 05/22/17 04:50 Eos # K/mm3 (0.0-0.4) 05/22/17 04:50 Baso # 0.0 K/mm3 (0.0-0.1) 05/22/17 04:50 Add Manual Diff Complete 05/28/17 04:00 Total Counted 100 05/28/17 04:00 Seg Neutrophils % Commissary Assistant 05/24/17 07:16 Seg Neuts % (Manual) 75.0 % (40.0-70.0) H 05/28/17 04:00 Band Neutrophils % 7.0 % 05/28/17 04:00 Lymphocytes % (Manual) 5.0 % (13.4-35.0) L 05/28/17 04:00 Reactive Lymphs % (Man) 0 % 05/28/17 04:00 Monocytes % (Manual) 10.0 % (0.0-7.3) H 05/28/17 04:00 Eosinophils % (Manual) 3.0 % (0.0-4.3) 05/28/17 04:00 Basophils % (Manual) 0 % (0.0-1.8) 05/28/17 04:00 Metamyelocytes % 0 % 05/28/17 04:00 Myelocytes % 0 % 05/28/17 04:00 Promyelocytes % 0 % 05/28/17 04:00 Blast Cells % 0 % 05/28/17 04:00 Nucleated RBC % 2.0 % (0.0-0.9) H 05/28/17 04:00 Seg Neutrophils # K/mm3 (1.8-7.7) 05/22/17 04:50 Seg Neutrophils # Man 13.1 K/mm3 (1.8-7.7) H 05/28/17 04:00 Band Neutrophils # 1.2 K/mm3 05/28/17 04:00 Lymphocytes # (Manual) 0.9 K/mm3 (1.2-5.4) L 05/28/17 04:00 Abs React Lymphs (Man) 0.0 K/mm3 05/28/17 04:00 Monocytes # (Manual) 1.7 K/mm3 (0.0-0.8) H 05/28/17 04:00 Eosinophils # (Manual) 0.5 K/mm3 (0.0-0.4) H 05/28/17 04:00 Basophils # (Manual) 0.0 K/mm3 (0.0-0.1) 05/28/17 04:00 Metamyelocytes # 0.0 K/mm3 05/28/17 04:00 Myelocytes # 0.0 K/mm3 05/28/17 04:00 Promyelocytes # 0.0 K/mm3 05/28/17 04:00 Blast Cells # 0.0 K/mm3 05/28/17 04:00 WBC Morphology Not Reportable 05/28/17 04:00 Hypersegmented Neuts Not Reportable 05/28/17 04:00 Hyposegmented Neuts Not Reportable 05/28/17 04:00 Hypogranular Neuts Not Reportable 05/28/17 04:00 Smudge Cells Not Reportable 05/28/17 04:00 Toxic Granulation Not Reportable 05/28/17 04:00 Toxic Vacuolation Not Reportable 05/28/17 04:00 Dohle Bodies Not Reportable 05/28/17 04:00 Pelger-Huet Anomaly Not Reportable 05/28/17 04:00 Neisha Rods Not Reportable 05/28/17 04:00 Platelet Estimate Consistent w auto 05/28/17 04:00 Clumped Platelets Not Reportable 05/28/17 04:00 Plt Clumps, EDTA Not Reportable 05/28/17 04:00 Large Platelets Not Reportable 05/28/17 04:00 Giant Platelets Not Reportable 05/28/17 04:00 Platelet Satelliting Not Reportable 05/28/17 04:00 Plt Morphology Comment Not Reportable 05/28/17 04:00 RBC Morphology Not Reportable 05/28/17 04:00 Dimorphic RBCs Not Reportable 05/28/17 04:00 Polychromasia 1+ 05/28/17 04:00 Hypochromasia Not Reportable 05/28/17 04:00 Poikilocytosis Not Reportable 05/28/17 04:00 Anisocytosis 1+ 05/28/17 04:00 Microcytosis Not Reportable 05/28/17 04:00 Macrocytosis 1+ 05/28/17 04:00 Spherocytes Not Reportable 05/28/17 04:00 Pappenheimer Bodies Not Reportable 05/28/17 04:00 Sickle Cells Not Reportable 05/28/17 04:00 Target Cells Few 05/28/17 04:00 Tear Drop Cells Not Reportable 05/28/17 04:00 Ovalocytes Not Reportable 05/28/17 04:00 Stomatocytes Few 05/21/17 05:20 Helmet Cells Not Reportable 05/28/17 04:00 [place] Bodies Not Reportable 05/28/17 04:00 [place] Rings Not Reportable 05/28/17 04:00 [place] Cells Not Reportable 05/28/17 04:00 Bite Cells Not Reportable 05/28/17 04:00 Crenated Cell Not Reportable 05/28/17 04:00 Elliptocytes Not Reportable 05/28/17 04:00 Acanthocytes (Spur) Not Reportable 05/28/17 04:00 Rouleaux Not Reportable 05/28/17 04:00 Hemoglobin C Crystals Not Reportable 05/28/17 04:00 Schistocytes Not Reportable 05/28/17 04:00 Malaria parasites Not Reportable 05/28/17 04:00 Herve Bodies Not Reportable 05/28/17 04:00 Hem Pathologist Commnt No 05/28/17 04:00 PT 21.3 Sec. (12.2-14.9) H 05/22/17 04:50 INR 1.75 (0.87-1.13) H 05/22/17 04:50 APTT 39.4 Sec. (24.2-36.6) H 05/22/17 04:50 D-Dimer 8441.57 ng/mlDDU (0-234) H 05/04/17 Unknown POC ABG pH 7.424 (7.35-7.45) 05/26/17 09:49 POC ABG pCO2 44.1 (35-45) 05/26/17 09:49 POC ABG pO2 89 (80-105) 05/26/17 09:49 POC ABG HCO3 28.9 05/26/17 09:49 POC ABG Total CO2 30 05/26/17 09:49 POC ABG O2 Sat 97 05/26/17 09:49 POC ABG Base Excess 4 05/26/17 09:49 FiO2 25 % 05/26/17 09:49 Sodium 141 mmol/L (137-145) 05/28/17 04:00 Potassium 4.6 mmol/L (3.6-5.0) 05/28/17 04:00 Chloride 104.7 mmol/L (98-107) 05/28/17 04:00 Carbon Dioxide 29 mmol/L (22-30) 05/28/17 04:00 Anion Gap 12 mmol/L 05/28/17 04:00 BUN 44 mg/dL (7-17) H 05/28/17 04:00 Creatinine 1.2 mg/dL (0.7-1.2) 05/28/17 04:00 Estimated GFR 55 ml/min 05/28/17 04:00 BUN/Creatinine Ratio 37 % 05/28/17 04:00 Glucose 148 mg/dL (65-100) H 05/28/17 04:00 POC Glucose 205 (70-105) H 05/28/17 11:31 Lactic Acid 0.60 mmol/L (0.7-2.0) L 05/16/17 00:15 Calcium 8.2 mg/dL (8.4-10.2) L 05/28/17 04:00 Ionized Calcium 3.5 mg/dL (4.8-5.6) L 05/05/17 17:45 Phosphorus 3.70 mg/dL (2.5-4.5) 05/28/17 04:00 Magnesium 1.80 mg/dL (1.7-2.3) 05/28/17 04:00 Total Bilirubin 0.30 mg/dL (0.1-1.2) 05/26/17 07:15 AST 9 units/L (5-40) 05/26/17 07:15 ALT < 5 units/L (7-56) L 05/26/17 07:15 Alkaline Phosphatase 41 units/L (35-129) 05/26/17 07:15 Total Creatine Kinase 346 units/L (30-135) H 05/05/17 05:20 CK-MB (CK-2) 8.2 ng/mL (0.0-4.0) H 05/05/17 05:20 CK-MB (CK-2) Rel Index 2.3 (0-4) 05/05/17 05:20 Troponin T 0.027 ng/mL (0.00-0.029) 05/05/17 05:20 C-Reactive Protein 7.10 mg/dL (0.00-1.30) H 05/23/17 16:55 Total Protein 4.0 g/dL (6.3-8.2) L 05/26/17 07:15 Albumin 2.3 g/dL (3.9-5) L 05/26/17 07:15 Albumin/Globulin Ratio 1.4 % 05/26/17 07:15 Triglycerides 149 mg/dL (2-149) 05/04/17 18:55 Cholesterol 185 mg/dL (50-199) 05/04/17 18:55 LDL Cholesterol Direct 103 mg/dL (50-130) 05/04/17 18:55 HDL Cholesterol 53 mg/dL (40-59) 05/04/17 18:55 Cholesterol/HDL Ratio 3.49 % 05/04/17 18:55 TSH 1.780 mlU/mL (0.270-4.200) 05/04/17 18:39 Urine Color Yellow (Yellow) 05/19/17 18:04 Urine Turbidity Clear (Clear) 05/19/17 18:04 Urine pH 5.0 (5.0-7.0) 05/19/17 18:04 Ur Specific [place] 1.014 (1.003-1.030) 05/19/17 18:04 Urine Protein 30 mg/dl mg/dL (Negative) 05/19/17 18:04 Urine Glucose (UA) Neg mg/dL (Negative) 05/19/17 18:04 Urine Ketones Neg mg/dL (Negative) 05/19/17 18:04 Urine Blood Mod (Negative) 05/19/17 18:04 Urine Nitrite Neg (Negative) 05/19/17 18:04 Urine Bilirubin Neg (Negative) 05/19/17 18:04 Urine Urobilinogen < 2.0 mg/dL (<2.0) 05/19/17 18:04 Ur Leukocyte Esterase Lg (Negative) 05/19/17 18:04 Urine WBC (Auto) 78.0 /HPF (0.0-6.0) H 05/19/17 18:04 Urine RBC (Auto) 90.0 /HPF (0.0-6.0) 05/19/17 18:04 U Epithel Cells (Auto) < 1.0 /HPF (0-13.0) 05/19/17 18:04 Urine Bacteria (Auto) 2+ /HPF (Negative) 05/19/17 18:04 Amorphous Crystals Few 05/11/17 17:50 Hyaline Casts 3 /LPF 05/19/17 18:04 Granular Casts 1 /LPF 05/19/17 18:04 Urine Mucus Few /HPF 05/19/17 18:04 Ur Yeast w Hyphae Few /HPF 05/19/17 18:04 Urine Yeast (Budding) 3+ /HPF 05/19/17 18:04 Urine Creatinine 28.0 mg/dL (0.1-20.0) H 05/05/17 Unknown Urine Sodium 129 mmol/L 05/05/17 Unknown Urine Potassium 3.67 mmol/L 05/05/17 Unknown Urine Chloride 115.6 mmolL (110-250) 05/05/17 Unknown Salicylates 0.3 mg/dL (2.8-20.0) L 05/04/17 18:39 Urine Opiates Screen Presumptive negative 05/04/17 02:20 Urine Methadone Screen Presumptive negative 05/04/17 02:20 Acetaminophen < 15.0 ug/mL (10.0-30.0) 05/04/17 18:39 Ur Barbiturates Screen Presumptive negative 05/04/17 02:20 Ur Phencyclidine Scrn Presumptive negative 05/04/17 02:20 Ur Amphetamines Screen Presumptive negative 05/04/17 02:20 U Benzodiazepines Scrn Presumptive negative 05/04/17 02:20 Urine Cocaine Screen Presumptive negative 05/04/17 02:20 U Marijuana (THC) Screen Presumptive negative 05/04/17 02:20 Drugs of Abuse Note Disclamer 05/04/17 02:20 Plasma/Serum Alcohol < 0.01 gm% (0-0.07) 05/04/17 18:39 Hepatitis A IgM Ab Non-reactive (NonReactive) 05/20/17 17:49 Hep Bs Antigen Non-reactive (Negative) 05/20/17 17:49 Hep B Core IgM Ab Non-reactive (NonReactive) 05/20/17 17:49 Hepatitis C Antibody Non-reactive (NonReactive) 05/20/17 17:49 Miscellaneous Test Flexitest 1 H 05/17/17 12:20 Blood Type AB POSITIVE 05/26/17 10:50 Antibody Screen Negative 05/26/17 10:50 Crossmatch See Detail 05/26/17 10:50
[2017-05-28] MEDS ORDERED: TPN ADULT 1,560 ML IV SCH (20:00)
[2017-05-28] MEDS: ZOFRAN IV PRN (23:43)
[2017-05-29] MEDS: NOVOLOG SUB-Q SCH ×4 (00:25→20:33)
[2017-05-29 07:31] LABS: Anion Gap 16 mmol/L; BUN/Creatinine Ratio 45; Blood Urea Nitrogen 50 mg/dL (7-17); Calcium 8.2 mg/dL (8.4-10.2); Carbon Dioxide 30 mmol/L (22-30); Chloride 104.2 mmol/L (98-107); Glucose 145 mg/dL (65-100); Potassium 4.7 mmol/L (3.6-5.0); Sodium 145 mmol/L (137-145)
[2017-05-29] MEDS: PULMICORT IH SCH ×2 (08:30→20:02)
[2017-05-29] MEDS: DUONEB *Not for PRN Use IH SCH ×4 (08:30→20:01)
[2017-05-29] MEDS: BROVANA NEBU IH SCH ×2 (08:30→20:01)
[2017-05-29] MEDS: PEPCID IV SCH (10:33)
[2017-05-29] MEDS: LASIX IV SCH ×2 (10:33→20:33)
--- NOTE | 2017-05-29 11:56 | Progress Note ---
Assessment and Plan Assessment: 1) Persistent Septic Shock - resolved, leukocytosis better- leukocytosis likely from recent splenectomy; etiology - severe C diff colitis. CRP=14 -->2.3. Procal=2.4 -->1.7 2) Severe C diff Colitis: severe-recently exposed to broad spectrum abx. CT abd showed colitis. CT abd repeat shows worsening colitis -S/P subtotal colectomy and splenectomy 05/21 3) UTI-mild ? reactive from colitis versus real - resolved 4) LUIS-worsening - now on HD 6) COPD 7) Resp failure -resolved Plan: -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: Prevnar single dose and 8 weeks later Pneumovax Haemophilus influenza vaccine - one dose Menactra - (meningococcal vaccine) - one dose -monitor off antibiotics I am signing off Winifred Guerrero MD Infectious Diseases Specialist [facility] M [phone] O [phone] Subjective Date of service: 05/29/17 Principal diagnosis: Septic shock,C. diff colitis Interval history: Alert, talking, on the floor. No complaints. Microbiology: Blood cultures: 05/05 neg 05/23 ngtd Urine cultures: 05/05 neg 05/19 billy Stool cultures: C diff 05/04 POSITIVE Resp culture: 05/16 neg Current Antimicrobials: Metronidazole 05/05 Previous Antimicrobials: Zosyn Levaquin Vancomycin PO Metronidazole Vanco rectal 05/07 Ceftriaxone 05/11 meropenem 05/17 Objective - Exam Narrative Exam: General appearance: alert on the vent Eyes: anicteric sclerae HENT: Atraumatic; oropharynx +ETT Neck: Trachea midline; supple, no thyromegaly or lymphadenopathy Lungs: scattered rhonchi CV: rrr Abdomen: Soft, +surgical wound Ileostomy bag and JAVAN drain with small amount of pinkish drainage. Extremities: + peripheral edema Skin: Normal temperature, turgor and texture; no rash, ulcers or subcutaneous nodules Psych: Anxious. Neuro: alert and oriented x 3. Moving all extermities Lines: right SC TLC - Constitutional Vitals: Vital Signs Temp Pulse Resp BP Pulse Ox 97.8 F 99 H 20 89/53 100 05/28/17 12:00 05/29/17 08:40 05/29/17 08:40 05/28/17 14:15 05/29/17 08:30 Temperature -Last 24 Hours Temperature 97.8 F - Labs CBC & Chem 7: 05/28/17 04:00 05/29/17 06:40 Labs: Abnormal lab results 05/28/17 05/29/17 05/29/17 Range/Units 17:04 00:18 06:30 BUN (7-17) mg/dL Glucose (65-100) mg/dL POC Glucose 129 H 167 H 126 H (70-105) Calcium (8.4-10.2) mg/dL 05/29/17 Range/Units 06:40 BUN 50 H (7-17) mg/dL Glucose 145 H (65-100) mg/dL POC Glucose (70-105) Calcium 8.2 L (8.4-10.2) mg/dL
--- NOTE | 2017-05-29 12:13 | Progress Note ---
Assessment and Plan Pt transferred to floor. Doing well. No specific compl. Abd soft. ostomy functioning well surgically stable d/c causey if O.K. with renal. UA C&S before d/c PT for ambulation advance to reg diet as keara Laboratory Tests 05/29/17 05/29/17 00:18 06:40 Sodium 145 Potassium 4.7 Chloride 104.2 Carbon Dioxide 30 Anion Gap 16 BUN 50 H Creatinine 1.1 Glucose 145 H POC Glucose 167 H Objective Vital Signs - 12hr 05/29/17 05/29/17 08:30 08:40 Pulse Rate [ 104 H 99 H Anterior Bilateral Throughout] Respiratory 20 20 Rate [Anterior Bilateral Throughout] O2 Sat by Pulse 100 Oximetry - Labs 05/28/17 04:00 05/29/17 06:40 Diabetes panel 05/29/17 Range/Units 06:40 Sodium 145 (137-145) mmol/L Potassium 4.7 (3.6-5.0) mmol/L Chloride 104.2 (98-107) mmol/L Carbon Dioxide 30 (22-30) mmol/L BUN 50 H (7-17) mg/dL Creatinine 1.1 (0.7-1.2) mg/dL Glucose 145 H (65-100) mg/dL Calcium 8.2 L (8.4-10.2) mg/dL Calcium panel 05/29/17 Range/Units 06:40 Calcium 8.2 L (8.4-10.2) mg/dL Phosphorus 4.40 (2.5-4.5) mg/dL Pituitary panel 05/29/17 Range/Units 06:40 Sodium 145 (137-145) mmol/L Potassium 4.7 (3.6-5.0) mmol/L Chloride 104.2 (98-107) mmol/L Carbon Dioxide 30 (22-30) mmol/L BUN 50 H (7-17) mg/dL Creatinine 1.1 (0.7-1.2) mg/dL Glucose 145 H (65-100) mg/dL Calcium 8.2 L (8.4-10.2) mg/dL Adrenal panel 05/29/17 Range/Units 06:40 Sodium 145 (137-145) mmol/L Potassium 4.7 (3.6-5.0) mmol/L Chloride 104.2 (98-107) mmol/L Carbon Dioxide 30 (22-30) mmol/L BUN 50 H (7-17) mg/dL Creatinine 1.1 (0.7-1.2) mg/dL Glucose 145 H (65-100) mg/dL Calcium 8.2 L (8.4-10.2) mg/dL
[2017-05-29] MEDS: ALBURX 25% (ALBUMIN) IV SCH (15:15)
--- NOTE | 2017-05-29 15:37 | Progress Note ---
Assessment and Plan Assessment and plan: C. difficile colitis - Patient was treated with flagyl and off flagyl now Sepsis - Patient is off pressors, was treated with meropenem Status post partial colectomy - Surgical wound is stable - Patient tolerated liquid diet and will advance her diet - Surgery is following Acute on chronic renal failure - Patient renal function is back to baseline COPD exacerbation, acute on chronic respiratory - patient is currently stable Anemia - Stable DVT prophylaxis Disposition - History Interval history: Patient was seen and evaluated this morning, patient transferred to the floor. Hospitalist Physical - Physical exam Narrative exam: Not in cardiopulmonary distress. On intranasal oxygen The patient appeared well nourished and normally developed. Vital signs as documented. Head exam is unremarkable. No scleral icterus . Neck is without jugular venous distension, thyromegaly, or carotid bruits. Lungs are clear to auscultation. Cardiac exam reveals regular rate and Rhythm. First and second heart sounds normal. No murmurs, rubs or gallops. Abdominal ostomy is clean. Extremities are nonedematous and both femoral and pedal pulses are normal. BELLHOP: Alert and oriented 3. No focal weakness. - Constitutional Vitals: Temp Pulse Resp BP Pulse Ox 97.8 F 91 H 20 89/53 100 05/28/17 12:00 05/29/17 14:06 05/29/17 14:06 05/28/17 14:15 05/29/17 08:30 General appearance: Present: no acute distress, mild distress, well-nourished, other (intubatd and vent supported) Results - Labs CBC & Chem 7: 05/28/17 04:00 05/29/17 06:40 Labs: Laboratory Last Values WBC 17.4 K/mm3 (4.5-11.0) H 05/28/17 04:00 RBC 3.08 M/mm3 (3.65-5.03) L 05/28/17 04:00 Hgb 9.0 gm/dl (10.1-14.3) L 05/28/17 04:00 Hct 27.2 % (30.3-42.9) L 05/28/17 04:00 MCV 88 fl (79-97) 05/28/17 04:00 MCH 29 pg (28-32) 05/28/17 04:00 MCHC 33 % (30-34) 05/28/17 04:00 RDW 17.6 % (13.2-15.2) H 05/28/17 04:00 Plt Count 196 K/mm3 (140-440) 05/28/17 04:00 [place] % (Auto) % (0.0-7.3) 05/22/17 04:50 Eos % (Auto) % (0.0-4.3) 05/22/17 04:50 [place] # K/mm3 (0.0-0.8) 05/22/17 04:50 Eos # K/mm3 (0.0-0.4) 05/22/17 04:50 Baso # 0.0 K/mm3 (0.0-0.1) 05/22/17 04:50 Add Manual Diff Complete 05/28/17 04:00 Total Counted 100 05/28/17 04:00 Seg Neutrophils % Offset Printing Operator 05/24/17 07:16 Seg Neuts % (Manual) 75.0 % (40.0-70.0) H 05/28/17 04:00 Band Neutrophils % 7.0 % 05/28/17 04:00 Lymphocytes % (Manual) 5.0 % (13.4-35.0) L 05/28/17 04:00 Reactive Lymphs % (Man) 0 % 05/28/17 04:00 Monocytes % (Manual) 10.0 % (0.0-7.3) H 05/28/17 04:00 Eosinophils % (Manual) 3.0 % (0.0-4.3) 05/28/17 04:00 Basophils % (Manual) 0 % (0.0-1.8) 05/28/17 04:00 Metamyelocytes % 0 % 05/28/17 04:00 Myelocytes % 0 % 05/28/17 04:00 Promyelocytes % 0 % 05/28/17 04:00 Blast Cells % 0 % 05/28/17 04:00 Nucleated RBC % 2.0 % (0.0-0.9) H 05/28/17 04:00 Seg Neutrophils # K/mm3 (1.8-7.7) 05/22/17 04:50 Seg Neutrophils # Man 13.1 K/mm3 (1.8-7.7) H 05/28/17 04:00 Band Neutrophils # 1.2 K/mm3 05/28/17 04:00 Lymphocytes # (Manual) 0.9 K/mm3 (1.2-5.4) L 05/28/17 04:00 Abs React Lymphs (Man) 0.0 K/mm3 05/28/17 04:00 Monocytes # (Manual) 1.7 K/mm3 (0.0-0.8) H 05/28/17 04:00 Eosinophils # (Manual) 0.5 K/mm3 (0.0-0.4) H 05/28/17 04:00 Basophils # (Manual) 0.0 K/mm3 (0.0-0.1) 05/28/17 04:00 Metamyelocytes # 0.0 K/mm3 05/28/17 04:00 Myelocytes # 0.0 K/mm3 05/28/17 04:00 Promyelocytes # 0.0 K/mm3 05/28/17 04:00 Blast Cells # 0.0 K/mm3 05/28/17 04:00 WBC Morphology Not Reportable 05/28/17 04:00 Hypersegmented Neuts Not Reportable 05/28/17 04:00 Hyposegmented Neuts Not Reportable 05/28/17 04:00 Hypogranular Neuts Not Reportable 05/28/17 04:00 Smudge Cells Not Reportable 05/28/17 04:00 Toxic Granulation Not Reportable 05/28/17 04:00 Toxic Vacuolation Not Reportable 05/28/17 04:00 Dohle Bodies Not Reportable 05/28/17 04:00 Pelger-Huet Anomaly Not Reportable 05/28/17 04:00 Neisha Rods Not Reportable 05/28/17 04:00 Platelet Estimate Consistent w auto 05/28/17 04:00 Clumped Platelets Not Reportable 05/28/17 04:00 Plt Clumps, EDTA Not Reportable 05/28/17 04:00 Large Platelets Not Reportable 05/28/17 04:00 Giant Platelets Not Reportable 05/28/17 04:00 Platelet Satelliting Not Reportable 05/28/17 04:00 Plt Morphology Comment Not Reportable 05/28/17 04:00 RBC Morphology Not Reportable 05/28/17 04:00 Dimorphic RBCs Not Reportable 05/28/17 04:00 Polychromasia 1+ 05/28/17 04:00 Hypochromasia Not Reportable 05/28/17 04:00 Poikilocytosis Not Reportable 05/28/17 04:00 Anisocytosis 1+ 05/28/17 04:00 Microcytosis Not Reportable 05/28/17 04:00 Macrocytosis 1+ 05/28/17 04:00 Spherocytes Not Reportable 05/28/17 04:00 Pappenheimer Bodies Not Reportable 05/28/17 04:00 Sickle Cells Not Reportable 05/28/17 04:00 Target Cells Few 05/28/17 04:00 Tear Drop Cells Not Reportable 05/28/17 04:00 Ovalocytes Not Reportable 05/28/17 04:00 Stomatocytes Few 05/21/17 05:20 Helmet Cells Not Reportable 05/28/17 04:00 [place] Bodies Not Reportable 05/28/17 04:00 [place] Rings Not Reportable 05/28/17 04:00 Damián Cells Not Reportable 05/28/17 04:00 Bite Cells Not Reportable 05/28/17 04:00 Crenated Cell Not Reportable 05/28/17 04:00 Elliptocytes Not Reportable 05/28/17 04:00 Acanthocytes (Spur) Not Reportable 05/28/17 04:00 Rouleaux Not Reportable 05/28/17 04:00 Hemoglobin C Crystals Not Reportable 05/28/17 04:00 Schistocytes Not Reportable 05/28/17 04:00 Malaria parasites Not Reportable 05/28/17 04:00 Herve Bodies Not Reportable 05/28/17 04:00 Hem Pathologist Commnt No 05/28/17 04:00 PT 21.3 Sec. (12.2-14.9) H 05/22/17 04:50 INR 1.75 (0.87-1.13) H 05/22/17 04:50 APTT 39.4 Sec. (24.2-36.6) H 05/22/17 04:50 D-Dimer 8441.57 ng/mlDDU (0-234) H 05/04/17 Unknown POC ABG pH 7.424 (7.35-7.45) 05/26/17 09:49 POC ABG pCO2 44.1 (35-45) 05/26/17 09:49 POC ABG pO2 89 (80-105) 05/26/17 09:49 POC ABG HCO3 28.9 05/26/17 09:49 POC ABG Total CO2 30 05/26/17 09:49 POC ABG O2 Sat 97 05/26/17 09:49 POC ABG Base Excess 4 05/26/17 09:49 FiO2 25 % 05/26/17 09:49 Sodium 145 mmol/L (137-145) 05/29/17 06:40 Potassium 4.7 mmol/L (3.6-5.0) 05/29/17 06:40 Chloride 104.2 mmol/L (98-107) 05/29/17 06:40 Carbon Dioxide 30 mmol/L (22-30) 05/29/17 06:40 Anion Gap 16 mmol/L 05/29/17 06:40 BUN 50 mg/dL (7-17) H 05/29/17 06:40 Creatinine 1.1 mg/dL (0.7-1.2) 05/29/17 06:40 Estimated GFR > 60 ml/min 05/29/17 06:40 BUN/Creatinine Ratio 45 % 05/29/17 06:40 Glucose 145 mg/dL (65-100) H 05/29/17 06:40 POC Glucose 189 (70-105) H 05/29/17 12:10 Lactic Acid 0.60 mmol/L (0.7-2.0) L 05/16/17 00:15 Calcium 8.2 mg/dL (8.4-10.2) L 05/29/17 06:40 Ionized Calcium 3.5 mg/dL (4.8-5.6) L 05/05/17 17:45 Phosphorus 4.40 mg/dL (2.5-4.5) 05/29/17 06:40 Magnesium 1.70 mg/dL (1.7-2.3) 05/29/17 06:40 Total Bilirubin 0.30 mg/dL (0.1-1.2) 05/26/17 07:15 AST 9 units/L (5-40) 05/26/17 07:15 ALT < 5 units/L (7-56) L 05/26/17 07:15 Alkaline Phosphatase 41 units/L (35-129) 05/26/17 07:15 Total Creatine Kinase 346 units/L (30-135) H 05/05/17 05:20 CK-MB (CK-2) 8.2 ng/mL (0.0-4.0) H 05/05/17 05:20 CK-MB (CK-2) Rel Index 2.3 (0-4) 05/05/17 05:20 Troponin T 0.027 ng/mL (0.00-0.029) 05/05/17 05:20 C-Reactive Protein 7.10 mg/dL (0.00-1.30) H 05/23/17 16:55 Total Protein 4.0 g/dL (6.3-8.2) L 05/26/17 07:15 Albumin 2.3 g/dL (3.9-5) L 05/26/17 07:15 Albumin/Globulin Ratio 1.4 % 05/26/17 07:15 Triglycerides 149 mg/dL (2-149) 05/04/17 18:55 Cholesterol 185 mg/dL (50-199) 05/04/17 18:55 LDL Cholesterol Direct 103 mg/dL (50-130) 05/04/17 18:55 HDL Cholesterol 53 mg/dL (40-59) 05/04/17 18:55 Cholesterol/HDL Ratio 3.49 % 05/04/17 18:55 TSH 1.780 mlU/mL (0.270-4.200) 05/04/17 18:39 Urine Color Yellow (Yellow) 05/19/17 18:04 Urine Turbidity Clear (Clear) 05/19/17 18:04 Urine pH 5.0 (5.0-7.0) 05/19/17 18:04 Ur Specific [place] 1.014 (1.003-1.030) 05/19/17 18:04 Urine Protein 30 mg/dl mg/dL (Negative) 05/19/17 18:04 Urine Glucose (UA) Neg mg/dL (Negative) 05/19/17 18:04 Urine Ketones Neg mg/dL (Negative) 05/19/17 18:04 Urine Blood Mod (Negative) 05/19/17 18:04 Urine Nitrite Neg (Negative) 05/19/17 18:04 Urine Bilirubin Neg (Negative) 05/19/17 18:04 Urine Urobilinogen < 2.0 mg/dL (<2.0) 05/19/17 18:04 Ur Leukocyte Esterase Lg (Negative) 05/19/17 18:04 Urine WBC (Auto) 78.0 /HPF (0.0-6.0) H 05/19/17 18:04 Urine RBC (Auto) 90.0 /HPF (0.0-6.0) 05/19/17 18:04 U Epithel Cells (Auto) < 1.0 /HPF (0-13.0) 05/19/17 18:04 Urine Bacteria (Auto) 2+ /HPF (Negative) 05/19/17 18:04 Amorphous Crystals Few 05/11/17 17:50 Hyaline Casts 3 /LPF 05/19/17 18:04 Granular Casts 1 /LPF 05/19/17 18:04 Urine Mucus Few /HPF 05/19/17 18:04 Ur Yeast w Hyphae Few /HPF 05/19/17 18:04 Urine Yeast (Budding) 3+ /HPF 05/19/17 18:04 Urine Creatinine 28.0 mg/dL (0.1-20.0) H 05/05/17 Unknown Urine Sodium 129 mmol/L 05/05/17 Unknown Urine Potassium 3.67 mmol/L 05/05/17 Unknown Urine Chloride 115.6 mmolL (110-250) 05/05/17 Unknown Salicylates 0.3 mg/dL (2.8-20.0) L 05/04/17 18:39 Urine Opiates Screen Presumptive negative 05/04/17 02:20 Urine Methadone Screen Presumptive negative 05/04/17 02:20 Acetaminophen < 15.0 ug/mL (10.0-30.0) 05/04/17 18:39 Ur Barbiturates Screen Presumptive negative 05/04/17 02:20 Ur Phencyclidine Scrn Presumptive negative 05/04/17 02:20 Ur Amphetamines Screen Presumptive negative 05/04/17 02:20 U Benzodiazepines Scrn Presumptive negative 05/04/17 02:20 Urine Cocaine Screen Presumptive negative 05/04/17 02:20 U Marijuana (THC) Screen Presumptive negative 05/04/17 02:20 Drugs of Abuse Note Disclamer 05/04/17 02:20 Plasma/Serum Alcohol < 0.01 gm% (0-0.07) 05/04/17 18:39 Hepatitis A IgM Ab Non-reactive (NonReactive) 05/20/17 17:49 Hep Bs Antigen Non-reactive (Negative) 05/20/17 17:49 Hep B Core IgM Ab Non-reactive (NonReactive) 05/20/17 17:49 Hepatitis C Antibody Non-reactive (NonReactive) 05/20/17 17:49 Miscellaneous Test Flexitest 1 H 05/17/17 12:20 Blood Type AB POSITIVE 05/26/17 10:50 Antibody Screen Negative 05/26/17 10:50 Crossmatch See Detail 05/26/17 10:50
--- NOTE | 2017-05-29 15:51 | Progress Note ---
Assessment and Plan Impression * Acute renal failure. Most likely secondary to ATN * Respiratory failure * Septic shock * Anemia * C. difficile colitis * COPD Recommendations * Status post initiation of hemodialysis on 05/18/2017 * Her serum creatinine noted to have improved. She is responding well to diuretics. added IV albumin with Lasix, will reduce to 20mg bid today * Last hemodialysis was on 05/23/2017. s/p vasc cath removal 05/28/17 * Status post colectomy 05/21/17 * Avoid Nephrotoxins * Adjust meds for GFR less than 10 * Her renal function seems to be recovering at this time * continue daily lytes, remove causey next 24 hr if good i/os Subjective Date of service: 05/29/17 Principal diagnosis: Septic shock,C. diff colitis Interval history: resting well in bed today Objective - Exam Narrative Exam: General appearance: well-developed, well-nourished EENT: ATNC Neck: no JVD Respiratory: Present: Decreased Breath Sounds Cardiology: regular, S1S2 Gastrointestinal: hypoactive bowel sounds, no tenderness, distended Integumentary: no rash Neurologic: reflexes 2+ and symmetric Musculoskeletal: other (trace edema) Psychiatric: cooperative - Vital Signs Vital signs: Vital Signs - 12hr 05/29/17 05/29/17 05/29/17 08:30 08:40 13:56 Pulse Rate [ 104 H 99 H 99 H Anterior Bilateral Throughout] Respiratory 20 20 20 Rate [Anterior Bilateral Throughout] O2 Sat by Pulse 100 Oximetry 05/29/17 14:06 Pulse Rate [ 91 H Anterior Bilateral Throughout] Respiratory 20 Rate [Anterior Bilateral Throughout] O2 Sat by Pulse Oximetry - Lab 05/28/17 04:00 05/29/17 06:40 Most recent lab results Calcium 8.2 mg/dL (8.4-10.2) L 05/29/17 06:40 Phosphorus 4.40 mg/dL (2.5-4.5) 05/29/17 06:40 Magnesium 1.70 mg/dL (1.7-2.3) 05/29/17 06:40 Urine Creatinine 28.0 mg/dL (0.1-20.0) H 05/05/17 Unknown Urine Sodium 129 mmol/L 05/05/17 Unknown
[2017-05-30] MEDS: ALBURX 25% (ALBUMIN) IV SCH ×2 (00:19→17:10)
[2017-05-30] MEDS: NOVOLOG SUB-Q SCH ×4 (00:19→18:00)
[2017-05-30] MEDS: D50W (25GM) Vial IV PRN (00:20)
[2017-05-30] MEDS: BENADRYL IV PRN (01:54)
[2017-05-30] MEDS: MORPHINE IV PRN (03:18)
[2017-05-30 06:57] LABS: Anion Gap 20 mmol/L; BUN/Creatinine Ratio 47; Blood Urea Nitrogen 52 mg/dL (7-17); Calcium 8.2 mg/dL (8.4-10.2); Carbon Dioxide 26 mmol/L (22-30); Chloride 100.4 mmol/L (98-107); Glucose 56 mg/dL (65-100); Potassium 5.6 mmol/L (3.6-5.0); Sodium 141 mmol/L (137-145)
[2017-05-30] MEDS: LASIX IV SCH ×2 (07:23→17:16)
[2017-05-30] MEDS: PULMICORT IH SCH ×2 (08:52→19:43)
[2017-05-30] MEDS: BROVANA NEBU IH SCH ×2 (08:53→19:43)
[2017-05-30] MEDS: DUONEB *Not for PRN Use IH SCH ×3 (08:53→21:20)
[2017-05-30] MEDS: PEPCID IV SCH (10:56)
--- NOTE | 2017-05-30 12:05 | Progress Note ---
Assessment and Plan 61 y/o female with severe C. Diff colitis, sepsis with shock and now encephalopathy, likely metabolic requiring mechanical ventilation. 1. Wean FiO2 as tolerated. 2. Levophed has been weaned off 3. ABx per ID 4. Hopefully surgery ok with full liquids now. Nutrition will order more TPN for tonight, may be able to discontinue in the next 24-48 hours. Nutrition asked about advancing diet today. Im ok with this, hopefully surgery will agree. 5. Wean FiO2 for sats >88%. 6. Will see as needed Subjective Date of service: 05/30/17 Principal diagnosis: Septic shock,C. diff colitis Interval history: No acute events. Breathing is stable Objective Vital Signs - 12hr 05/30/17 05/30/17 05/30/17 03:18 07:51 08:53 Temperature 98.0 F Pulse Rate 117 H Pulse Rate [ 104 H Anterior Bilateral Throughout] Respiratory 16 18 Rate Respiratory 20 Rate [Anterior Bilateral Throughout] Blood Pressure 88/52 O2 Sat by Pulse 96 100 Oximetry 05/30/17 09:04 Temperature Pulse Rate Pulse Rate [ 107 H Anterior Bilateral Throughout] Respiratory Rate Respiratory 20 Rate [Anterior Bilateral Throughout] Blood Pressure O2 Sat by Pulse Oximetry Constitutional: no acute distress, alert Eyes: non-icteric ENT: oropharynx moist Neck: supple Effort: normal Ascultation: Bilateral: clear (anterior), diminished breath sounds, wheezes ( mild), rales, other (coarse BS bilaterally) Percussion: Bilateral: not dull Cardiovascular: regular rate and rhythm (no mrg) Gastrointestinal: hypoactive bowel sounds, tender, other (distended, ostomy looks good with some liquid stool in bag, brown + old blood) Integumentary: normal Extremities: no cyanosis, pink and warm, anasarca (1+ bilateral LE edema) Neurologic: normal mental status, non-focal exam, pupils equal and round, CN II- XII normal Psychiatric: mood appropriate, affect normal CBC and BMP: 05/28/17 04:00 05/30/17 05:24 ABG, PT/INR, D-dimer: ABG POC ABG pH 7.424 (7.35-7.45) 05/26/17 09:49 POC ABG pCO2 44.1 (35-45) 05/26/17 09:49 POC ABG pO2 89 (80-105) 05/26/17 09:49 POC ABG HCO3 28.9 05/26/17 09:49 POC ABG Total CO2 30 05/26/17 09:49 POC ABG O2 Sat 97 05/26/17 09:49 PT/INR, D-dimer PT 21.3 Sec. (12.2-14.9) H 05/22/17 04:50 INR 1.75 (0.87-1.13) H 05/22/17 04:50 D-Dimer 8441.57 ng/mlDDU (0-234) H 05/04/17 Unknown Abnormal lab findings: Abnormal Labs 05/04/17 05/04/17 05/04/17 02:20 18:39 18:39 WBC 24.3 H RBC Hgb Hct RDW 16.4 H Plt Count 658 H Seg Neuts % (Manual) 94.5 H Lymphocytes % (Manual) 2.5 L Monocytes % (Manual) Nucleated RBC % Seg Neutrophils # Man 23.0 H Lymphocytes # (Manual) 0.6 L Monocytes # (Manual) Eosinophils # (Manual) PT INR APTT D-Dimer POC ABG pH POC ABG pCO2 POC ABG pO2 Sodium Potassium 3.2 L Chloride 92.6 L Carbon Dioxide 14 L BUN 66 H Creatinine 6.5 H Glucose POC Glucose Lactic Acid Calcium 7.5 L Ionized Calcium Phosphorus Magnesium ALT 5 L Alkaline Phosphatase 32 L Total Creatine Kinase CK-MB (CK-2) Troponin T C-Reactive Protein Total Protein 5.4 L Albumin 3.0 L Urine WBC (Auto) 100.0 H Urine Creatinine Salicylates Miscellaneous Test Crossmatch 05/04/17 05/04/17 05/04/17 18:39 18:55 Unknown WBC RBC Hgb Hct RDW Plt Count Seg Neuts % (Manual) Lymphocytes % (Manual) Monocytes % (Manual) Nucleated RBC % Seg Neutrophils # Man Lymphocytes # (Manual) Monocytes # (Manual) Eosinophils # (Manual) PT INR APTT D-Dimer POC ABG pH POC ABG pCO2 POC ABG pO2 Sodium Potassium Chloride Carbon Dioxide BUN Creatinine Glucose POC Glucose Lactic Acid 0.40 L Calcium Ionized Calcium Phosphorus Magnesium ALT Alkaline Phosphatase Total Creatine Kinase 155 H CK-MB (CK-2) 4.5 H Troponin T 0.033 H C-Reactive Protein Total Protein Albumin Urine WBC (Auto) Urine Creatinine Salicylates 0.3 L Miscellaneous Test Crossmatch 05/04/17 05/04/17 05/04/17 Unknown Unknown Unknown WBC RBC Hgb Hct RDW Plt Count Seg Neuts % (Manual) Lymphocytes % (Manual) Monocytes % (Manual) Nucleated RBC % Seg Neutrophils # Man Lymphocytes # (Manual) Monocytes # (Manual) Eosinophils # (Manual) PT INR APTT D-Dimer 8441.57 H POC ABG pH POC ABG pCO2 POC ABG pO2 Sodium Potassium Chloride Carbon Dioxide BUN Creatinine Glucose POC Glucose Lactic Acid 0.40 L Calcium Ionized Calcium Phosphorus Magnesium ALT Alkaline Phosphatase Total Creatine Kinase 246 H CK-MB (CK-2) 6.2 H Troponin T C-Reactive Protein Total Protein Albumin Urine WBC (Auto) Urine Creatinine Salicylates Miscellaneous Test Crossmatch 05/05/17 05/05/17 05/05/17 05:20 05:20 05:20 WBC 33.9 H RBC 3.39 L Hgb 9.3 L Hct RDW 16.7 H Plt Count 712 H Seg Neuts % (Manual) 91.0 H Lymphocytes % (Manual) 1.0 L Monocytes % (Manual) Nucleated RBC % Seg Neutrophils # Man 30.8 H Lymphocytes # (Manual) 0.3 L Monocytes # (Manual) 1.5 H Eosinophils # (Manual) PT INR APTT D-Dimer POC ABG pH POC ABG pCO2 POC ABG pO2 Sodium Potassium Chloride Carbon Dioxide 9 L* BUN 53 H Creatinine 5.4 H Glucose POC Glucose Lactic Acid Calcium 6.1 L D Ionized Calcium Phosphorus Magnesium ALT Alkaline Phosphatase Total Creatine Kinase 346 H CK-MB (CK-2) 8.2 H Troponin T C-Reactive Protein Total Protein Albumin Urine WBC (Auto) Urine Creatinine Salicylates Miscellaneous Test Crossmatch 05/05/17 05/05/17 05/05/17 10:43 17:45 17:45 WBC RBC Hgb 8.8 L Hct RDW Plt Count Seg Neuts % (Manual) Lymphocytes % (Manual) Monocytes % (Manual) Nucleated RBC % Seg Neutrophils # Man Lymphocytes # (Manual) Monocytes # (Manual) Eosinophils # (Manual) PT INR APTT D-Dimer POC ABG pH 6.872 L POC ABG pCO2 POC ABG pO2 120 H Sodium Potassium Chloride Carbon Dioxide BUN Creatinine Glucose POC Glucose Lactic Acid Calcium Ionized Calcium 3.5 L Phosphorus Magnesium ALT Alkaline Phosphatase Total Creatine Kinase CK-MB (CK-2) Troponin T C-Reactive Protein Total Protein Albumin Urine WBC (Auto) Urine Creatinine Salicylates Miscellaneous Test Crossmatch 05/05/17 05/05/17 05/05/17 17:45 20:58 Unknown WBC RBC Hgb 9.0 L Hct 29.8 L RDW Plt Count Seg Neuts % (Manual) Lymphocytes % (Manual) Monocytes % (Manual) Nucleated RBC % Seg Neutrophils # Man Lymphocytes # (Manual) Monocytes # (Manual) Eosinophils # (Manual) PT INR APTT D-Dimer POC ABG pH POC ABG pCO2 POC ABG pO2 Sodium Potassium Chloride Carbon Dioxide BUN Creatinine Glucose POC Glucose Lactic Acid Calcium Ionized Calcium Phosphorus 6.20 H Magnesium 1.20 L ALT Alkaline Phosphatase Total Creatine Kinase CK-MB (CK-2) Troponin T C-Reactive Protein Total Protein Albumin Urine WBC (Auto) Urine Creatinine 28.0 H Salicylates Miscellaneous Test Crossmatch 05/06/17 05/06/17 05/06/17 05:09 05:23 07:55 WBC RBC Hgb Hct RDW Plt Count Seg Neuts % (Manual) Lymphocytes % (Manual) Monocytes % (Manual) Nucleated RBC % Seg Neutrophils # Man Lymphocytes # (Manual) Monocytes # (Manual) Eosinophils # (Manual) PT INR APTT D-Dimer POC ABG pH 7.029 L 7.060 L POC ABG pCO2 54.8 H 48.6 H POC ABG pO2 74 L 43 L Sodium Potassium 3.5 L Chloride Carbon Dioxide 18 L D BUN 44 H Creatinine 3.5 H Glucose 252 H POC Glucose Lactic Acid Calcium 5.8 L* Ionized Calcium Phosphorus Magnesium ALT Alkaline Phosphatase Total Creatine Kinase CK-MB (CK-2) Troponin T C-Reactive Protein Total Protein Albumin Urine WBC (Auto) Urine Creatinine Salicylates Miscellaneous Test Crossmatch 05/06/17 05/06/17 05/06/17 07:55 15:28 17:30 WBC RBC Hgb Hct RDW Plt Count Seg Neuts % (Manual) Lymphocytes % (Manual) Monocytes % (Manual) Nucleated RBC % Seg Neutrophils # Man Lymphocytes # (Manual) Monocytes # (Manual) Eosinophils # (Manual) PT INR APTT D-Dimer POC ABG pH 7.066 L POC ABG pCO2 80.9 H POC ABG pO2 65 L Sodium Potassium Chloride Carbon Dioxide BUN Creatinine Glucose POC Glucose Lactic Acid Calcium Ionized Calcium Phosphorus Magnesium ALT Alkaline Phosphatase Total Creatine Kinase CK-MB (CK-2) Troponin T C-Reactive Protein 14.50 H Total Protein Albumin Urine WBC (Auto) Urine Creatinine Salicylates Miscellaneous Test Flexitest 1 H Crossmatch 05/06/17 05/06/17 05/07/17 17:30 Unknown 10:18 WBC 39.2 H 32.9 H RBC 3.27 L Hgb 9.3 L Hct 30.2 L RDW 16.4 H 17.0 H Plt Count 645 H 467 H Seg Neuts % (Manual) Lymphocytes % (Manual) 11.0 L Monocytes % (Manual) Nucleated RBC % Seg Neutrophils # Man 21.2 H Lymphocytes # (Manual) Monocytes # (Manual) 2.0 H Eosinophils # (Manual) PT INR APTT D-Dimer POC ABG pH POC ABG pCO2 POC ABG pO2 Sodium Potassium 3.4 L Chloride Carbon Dioxide BUN 41 H Creatinine 3.2 H Glucose 265 H POC Glucose Lactic Acid Calcium 6.7 L D Ionized Calcium Phosphorus Magnesium ALT Alkaline Phosphatase Total Creatine Kinase CK-MB (CK-2) Troponin T C-Reactive Protein Total Protein Albumin Urine WBC (Auto) Urine Creatinine Salicylates Miscellaneous Test Crossmatch 05/07/17 05/07/17 05/08/17 11:32 12:36 05:45 WBC 31.1 H RBC 3.41 L Hgb 9.8 L Hct RDW 16.9 H Plt Count Seg Neuts % (Manual) 96.0 H Lymphocytes % (Manual) 1.0 L Monocytes % (Manual) Nucleated RBC % Seg Neutrophils # Man 29.9 H Lymphocytes # (Manual) 0.3 L Monocytes # (Manual) Eosinophils # (Manual) PT INR APTT D-Dimer POC ABG pH 7.290 L POC ABG pCO2 48.3 H POC ABG pO2 51 L Sodium 146 H Potassium 3.1 L Chloride 109.2 H Carbon Dioxide 20 L BUN 38 H Creatinine 2.7 H Glucose 213 H POC Glucose Lactic Acid Calcium 6.6 L Ionized Calcium Phosphorus Magnesium ALT Alkaline Phosphatase Total Creatine Kinase CK-MB (CK-2) Troponin T C-Reactive Protein Total Protein Albumin Urine WBC (Auto) Urine Creatinine Salicylates Miscellaneous Test Crossmatch 05/08/17 05/08/17 05/09/17 05:45 18:55 04:05 WBC 26.1 H RBC Hgb Hct RDW 17.6 H Plt Count Seg Neuts % (Manual) Lymphocytes % (Manual) 5.0 L Monocytes % (Manual) Nucleated RBC % Seg Neutrophils # Man 16.7 H Lymphocytes # (Manual) Monocytes # (Manual) Eosinophils # (Manual) PT INR APTT D-Dimer POC ABG pH POC ABG pCO2 POC ABG pO2 Sodium 150 H Potassium Chloride 115.4 H 112.2 H Carbon Dioxide 20 L 18 L BUN 39 H 45 H Creatinine 2.4 H 2.3 H Glucose 160 H 219 H POC Glucose Lactic Acid Calcium 6.6 L 7.2 L Ionized Calcium Phosphorus Magnesium 1.40 L ALT 6 L Alkaline Phosphatase Total Creatine Kinase CK-MB (CK-2) Troponin T C-Reactive Protein Total Protein 4.1 L D Albumin 2.0 L Urine WBC (Auto) Urine Creatinine Salicylates Miscellaneous Test Crossmatch 05/09/17 05/09/17 05/09/17 04:05 05:15 05:45 WBC RBC Hgb Hct RDW Plt Count Seg Neuts % (Manual) Lymphocytes % (Manual) Monocytes % (Manual) Nucleated RBC % Seg Neutrophils # Man Lymphocytes # (Manual) Monocytes # (Manual) Eosinophils # (Manual) PT INR APTT D-Dimer POC ABG pH POC ABG pCO2 POC ABG pO2 Sodium 130 L D Potassium 3.4 L D Chloride 94.6 L Carbon Dioxide 19 L BUN 39 H Creatinine 2.1 H Glucose 549 H* 189 H POC Glucose 181 H Lactic Acid Calcium 6.6 L Ionized Calcium Phosphorus Magnesium ALT 6 L Alkaline Phosphatase 31 L Total Creatine Kinase CK-MB (CK-2) Troponin T C-Reactive Protein Total Protein 3.5 L Albumin 2.0 L Urine WBC (Auto) Urine Creatinine Salicylates Miscellaneous Test Crossmatch 05/09/17 05/09/17 05/09/17 08:03 11:08 16:15 WBC RBC Hgb Hct RDW Plt Count Seg Neuts % (Manual) Lymphocytes % (Manual) Monocytes % (Manual) Nucleated RBC % Seg Neutrophils # Man Lymphocytes # (Manual) Monocytes # (Manual) Eosinophils # (Manual) PT INR APTT D-Dimer POC ABG pH POC ABG pCO2 POC ABG pO2 Sodium Potassium Chloride 107.8 H Carbon Dioxide 21 L BUN 43 H Creatinine 2.4 H Glucose 195 H POC Glucose 299 H 111 H Lactic Acid Calcium 7.1 L Ionized Calcium Phosphorus Magnesium ALT Alkaline Phosphatase Total Creatine Kinase CK-MB (CK-2) Troponin T C-Reactive Protein Total Protein 3.9 L Albumin 2.3 L Urine WBC (Auto) Urine Creatinine Salicylates Miscellaneous Test Crossmatch 05/09/17 05/10/17 05/10/17 23:05 05:00 05:00 WBC 20.9 H RBC 3.53 L Hgb Hct RDW 17.3 H Plt Count Seg Neuts % (Manual) 72.0 H Lymphocytes % (Manual) 8.0 L Monocytes % (Manual) Nucleated RBC % Seg Neutrophils # Man 15.0 H Lymphocytes # (Manual) Monocytes # (Manual) Eosinophils # (Manual) PT INR APTT D-Dimer POC ABG pH POC ABG pCO2 POC ABG pO2 Sodium 135 L D Potassium 3.2 L Chloride Carbon Dioxide 21 L BUN 45 H Creatinine 2.2 H Glucose 308 H POC Glucose 336 H Lactic Acid Calcium 7.1 L Ionized Calcium Phosphorus Magnesium ALT 5 L Alkaline Phosphatase 30 L Total Creatine Kinase CK-MB (CK-2) Troponin T C-Reactive Protein Total Protein 3.8 L Albumin 2.1 L Urine WBC (Auto) Urine Creatinine Salicylates Miscellaneous Test Crossmatch 05/10/17 05/10/17 05/10/17 07:28 11:36 16:03 WBC RBC Hgb Hct RDW Plt Count Seg Neuts % (Manual) Lymphocytes % (Manual) Monocytes % (Manual) Nucleated RBC % Seg Neutrophils # Man Lymphocytes # (Manual) Monocytes # (Manual) Eosinophils # (Manual) PT INR APTT D-Dimer POC ABG pH POC ABG pCO2 POC ABG pO2 Sodium Potassium Chloride Carbon Dioxide BUN Creatinine Glucose POC Glucose 154 H 184 H 162 H Lactic Acid Calcium Ionized Calcium Phosphorus Magnesium ALT Alkaline Phosphatase Total Creatine Kinase CK-MB (CK-2) Troponin T C-Reactive Protein Total Protein Albumin Urine WBC (Auto) Urine Creatinine Salicylates Miscellaneous Test Crossmatch 05/10/17 05/11/17 05/11/17 21:13 06:50 06:50 WBC 24.4 H RBC Hgb Hct RDW 17.4 H Plt Count Seg Neuts % (Manual) Lymphocytes % (Manual) 5.0 L Monocytes % (Manual) Nucleated RBC % Seg Neutrophils # Man 16.3 H Lymphocytes # (Manual) Monocytes # (Manual) 1.0 H Eosinophils # (Manual) PT INR APTT D-Dimer POC ABG pH POC ABG pCO2 POC ABG pO2 Sodium Potassium 3.4 L Chloride Carbon Dioxide BUN 50 H Creatinine 2.8 H Glucose 131 H POC Glucose 188 H Lactic Acid Calcium 7.6 L Ionized Calcium Phosphorus Magnesium ALT < 5 L Alkaline Phosphatase 25 L Total Creatine Kinase CK-MB (CK-2) Troponin T C-Reactive Protein Total Protein 3.6 L Albumin 2.0 L Urine WBC (Auto) Urine Creatinine Salicylates Miscellaneous Test Crossmatch 05/11/17 05/11/17 05/11/17 09:33 11:45 15:46 WBC RBC Hgb Hct RDW Plt Count Seg Neuts % (Manual) Lymphocytes % (Manual) Monocytes % (Manual) Nucleated RBC % Seg Neutrophils # Man Lymphocytes # (Manual) Monocytes # (Manual) Eosinophils # (Manual) PT INR APTT D-Dimer POC ABG pH POC ABG pCO2 POC ABG pO2 Sodium Potassium Chloride Carbon Dioxide BUN Creatinine Glucose POC Glucose 140 H 157 H 137 H Lactic Acid Calcium Ionized Calcium Phosphorus Magnesium ALT Alkaline Phosphatase Total Creatine Kinase CK-MB (CK-2) Troponin T C-Reactive Protein Total Protein Albumin Urine WBC (Auto) Urine Creatinine Salicylates Miscellaneous Test Crossmatch 05/11/17 05/11/17 05/12/17 17:50 20:58 05:00 WBC 23.1 H RBC 3.59 L Hgb Hct RDW 17.1 H Plt Count Seg Neuts % (Manual) 94.0 H Lymphocytes % (Manual) 0 L Monocytes % (Manual) Nucleated RBC % Seg Neutrophils # Man 21.7 H Lymphocytes # (Manual) 0.0 L Monocytes # (Manual) Eosinophils # (Manual) PT INR APTT D-Dimer POC ABG pH POC ABG pCO2 POC ABG pO2 Sodium Potassium Chloride Carbon Dioxide BUN Creatinine Glucose POC Glucose 155 H Lactic Acid Calcium Ionized Calcium Phosphorus Magnesium ALT Alkaline Phosphatase Total Creatine Kinase CK-MB (CK-2) Troponin T C-Reactive Protein Total Protein Albumin Urine WBC (Auto) 27.0 H Urine Creatinine Salicylates Miscellaneous Test Crossmatch 05/12/17 05/12/17 05/12/17 05:00 08:28 11:28 WBC RBC Hgb Hct RDW Plt Count Seg Neuts % (Manual) Lymphocytes % (Manual) Monocytes % (Manual) Nucleated RBC % Seg Neutrophils # Man Lymphocytes # (Manual) Monocytes # (Manual) Eosinophils # (Manual) PT INR APTT D-Dimer POC ABG pH POC ABG pCO2 POC ABG pO2 Sodium Potassium Chloride 111.7 H Carbon Dioxide BUN 53 H Creatinine 2.8 H Glucose 102 H POC Glucose 130 H 171 H Lactic Acid Calcium 6.9 L Ionized Calcium Phosphorus Magnesium ALT < 5 L Alkaline Phosphatase 25 L Total Creatine Kinase CK-MB (CK-2) Troponin T C-Reactive Protein Total Protein 3.3 L Albumin 1.7 L Urine WBC (Auto) Urine Creatinine Salicylates Miscellaneous Test Crossmatch 05/12/17 05/13/17 05/13/17 22:20 06:54 06:54 WBC 20.8 H RBC 3.17 L Hgb 9.2 L Hct 28.9 L RDW 17.7 H Plt Count Seg Neuts % (Manual) 93.0 H Lymphocytes % (Manual) 1.0 L Monocytes % (Manual) Nucleated RBC % Seg Neutrophils # Man 19.3 H Lymphocytes # (Manual) 0.2 L Monocytes # (Manual) Eosinophils # (Manual) 0.6 H PT INR APTT D-Dimer POC ABG pH POC ABG pCO2 POC ABG pO2 Sodium Potassium 3.3 L Chloride 110.0 H Carbon Dioxide 20 L BUN 48 H Creatinine 2.8 H Glucose 119 H POC Glucose 179 H Lactic Acid Calcium 7.4 L Ionized Calcium Phosphorus Magnesium ALT Alkaline Phosphatase Total Creatine Kinase CK-MB (CK-2) Troponin T C-Reactive Protein Total Protein Albumin Urine WBC (Auto) Urine Creatinine Salicylates Miscellaneous Test Crossmatch 05/13/17 05/13/17 05/13/17 07:35 12:52 23:32 WBC RBC Hgb Hct RDW Plt Count Seg Neuts % (Manual) Lymphocytes % (Manual) Monocytes % (Manual) Nucleated RBC % Seg Neutrophils # Man Lymphocytes # (Manual) Monocytes # (Manual) Eosinophils # (Manual) PT INR APTT D-Dimer POC ABG pH POC ABG pCO2 POC ABG pO2 Sodium Potassium Chloride Carbon Dioxide BUN Creatinine Glucose POC Glucose 139 H 159 H 179 H Lactic Acid Calcium Ionized Calcium Phosphorus Magnesium ALT Alkaline Phosphatase Total Creatine Kinase CK-MB (CK-2) Troponin T C-Reactive Protein Total Protein Albumin Urine WBC (Auto) Urine Creatinine Salicylates Miscellaneous Test Crossmatch 05/14/17 05/14/17 05/14/17 04:00 05:00 07:30 WBC 19.3 H RBC 3.16 L Hgb 9.1 L Hct 29.1 L RDW 17.9 H Plt Count Seg Neuts % (Manual) 87.0 H Lymphocytes % (Manual) 2.0 L Monocytes % (Manual) Nucleated RBC % Seg Neutrophils # Man 16.8 H Lymphocytes # (Manual) 0.4 L Monocytes # (Manual) 1.0 H Eosinophils # (Manual) 0.6 H PT INR APTT D-Dimer POC ABG pH POC ABG pCO2 POC ABG pO2 Sodium 146 H Potassium Chloride 114.7 H Carbon Dioxide 19 L BUN 43 H Creatinine 2.5 H Glucose POC Glucose 110 H Lactic Acid Calcium 7.5 L Ionized Calcium Phosphorus Magnesium ALT Alkaline Phosphatase Total Creatine Kinase CK-MB (CK-2) Troponin T C-Reactive Protein Total Protein Albumin Urine WBC (Auto) Urine Creatinine Salicylates Miscellaneous Test Crossmatch 05/14/17 05/14/17 05/14/17 11:43 15:44 20:10 WBC RBC Hgb Hct RDW Plt Count Seg Neuts % (Manual) Lymphocytes % (Manual) Monocytes % (Manual) Nucleated RBC % Seg Neutrophils # Man Lymphocytes # (Manual) Monocytes # (Manual) Eosinophils # (Manual) PT INR APTT D-Dimer POC ABG pH POC ABG pCO2 POC ABG pO2 Sodium Potassium Chloride Carbon Dioxide BUN Creatinine Glucose POC Glucose 169 H 201 H 223 H Lactic Acid Calcium Ionized Calcium Phosphorus Magnesium ALT Alkaline Phosphatase Total Creatine Kinase CK-MB (CK-2) Troponin T C-Reactive Protein Total Protein Albumin Urine WBC (Auto) Urine Creatinine Salicylates Miscellaneous Test Crossmatch 05/15/17 05/15/17 05/15/17 06:10 08:50 12:57 WBC RBC Hgb Hct RDW Plt Count Seg Neuts % (Manual) Lymphocytes % (Manual) Monocytes % (Manual) Nucleated RBC % Seg Neutrophils # Man Lymphocytes # (Manual) Monocytes # (Manual) Eosinophils # (Manual) PT INR APTT D-Dimer POC ABG pH POC ABG pCO2 POC ABG pO2 Sodium Potassium Chloride 113.6 H Carbon Dioxide 18 L BUN 43 H Creatinine 2.7 H Glucose 123 H POC Glucose 204 H 127 H Lactic Acid Calcium 7.2 L Ionized Calcium Phosphorus Magnesium ALT Alkaline Phosphatase Total Creatine Kinase CK-MB (CK-2) Troponin T C-Reactive Protein Total Protein Albumin Urine WBC (Auto) Urine Creatinine Salicylates Miscellaneous Test Crossmatch 05/15/17 05/15/17 05/15/17 17:43 21:29 23:51 WBC RBC Hgb Hct RDW Plt Count Seg Neuts % (Manual) Lymphocytes % (Manual) Monocytes % (Manual) Nucleated RBC % Seg Neutrophils # Man Lymphocytes # (Manual) Monocytes # (Manual) Eosinophils # (Manual) PT INR APTT D-Dimer POC ABG pH 6.983 L POC ABG pCO2 67.5 H POC ABG pO2 Sodium Potassium Chloride Carbon Dioxide BUN Creatinine Glucose POC Glucose 121 H 129 H Lactic Acid Calcium Ionized Calcium Phosphorus Magnesium ALT Alkaline Phosphatase Total Creatine Kinase CK-MB (CK-2) Troponin T C-Reactive Protein Total Protein Albumin Urine WBC (Auto) Urine Creatinine Salicylates Miscellaneous Test Crossmatch 05/16/17 05/16/17 05/16/17 00:15 06:00 07:46 WBC RBC Hgb Hct RDW Plt Count Seg Neuts % (Manual) Lymphocytes % (Manual) Monocytes % (Manual) Nucleated RBC % Seg Neutrophils # Man Lymphocytes # (Manual) Monocytes # (Manual) Eosinophils # (Manual) PT INR APTT D-Dimer POC ABG pH POC ABG pCO2 POC ABG pO2 Sodium Potassium Chloride 114.2 H Carbon Dioxide 17 L BUN 44 H Creatinine 3.3 H Glucose 118 H POC Glucose 135 H Lactic Acid 0.60 L Calcium 7.5 L Ionized Calcium Phosphorus Magnesium ALT Alkaline Phosphatase Total Creatine Kinase CK-MB (CK-2) Troponin T C-Reactive Protein Total Protein Albumin Urine WBC (Auto) Urine Creatinine Salicylates Miscellaneous Test Crossmatch 05/16/17 05/16/17 05/16/17 09:38 10:20 10:20 WBC 18.6 H RBC 3.08 L Hgb 9.0 L Hct 29.0 L RDW 18.8 H Plt Count Seg Neuts % (Manual) Lymphocytes % (Manual) 5.0 L Monocytes % (Manual) Nucleated RBC % Seg Neutrophils # Man 11.3 H Lymphocytes # (Manual) 0.9 L Monocytes # (Manual) 1.3 H Eosinophils # (Manual) PT INR APTT D-Dimer POC ABG pH 7.081 L POC ABG pCO2 46.3 H POC ABG pO2 107 H Sodium Potassium Chloride 114.9 H Carbon Dioxide 14 L BUN 44 H Creatinine 3.0 H Glucose 115 H POC Glucose Lactic Acid Calcium 7.3 L Ionized Calcium Phosphorus 5.40 H Magnesium ALT < 5 L Alkaline Phosphatase 17 L Total Creatine Kinase CK-MB (CK-2) Troponin T C-Reactive Protein Total Protein 4.2 L D Albumin 2.9 L Urine WBC (Auto) Urine Creatinine Salicylates Miscellaneous Test Crossmatch 05/17/17 05/17/17 05/17/17 03:44 04:00 05:00 WBC 21.9 H RBC 2.89 L Hgb 8.3 L Hct 26.4 L RDW 18.2 H Plt Count Seg Neuts % (Manual) Lymphocytes % (Manual) 7.0 L Monocytes % (Manual) Nucleated RBC % Seg Neutrophils # Man 15.3 H Lymphocytes # (Manual) Monocytes # (Manual) 1.5 H Eosinophils # (Manual) PT INR APTT D-Dimer POC ABG pH 7.199 L POC ABG pCO2 POC ABG pO2 107 H Sodium Potassium Chloride 111.7 H Carbon Dioxide 16 L BUN 43 H Creatinine 3.4 H Glucose POC Glucose Lactic Acid Calcium 7.3 L Ionized Calcium Phosphorus Magnesium ALT Alkaline Phosphatase Total Creatine Kinase CK-MB (CK-2) Troponin T C-Reactive Protein Total Protein Albumin Urine WBC (Auto) Urine Creatinine Salicylates Miscellaneous Test Crossmatch 05/17/17 05/17/17 05/18/17 05:00 12:20 04:43 WBC RBC Hgb Hct RDW Plt Count Seg Neuts % (Manual) Lymphocytes % (Manual) Monocytes % (Manual) Nucleated RBC % Seg Neutrophils # Man Lymphocytes # (Manual) Monocytes # (Manual) Eosinophils # (Manual) PT INR APTT D-Dimer POC ABG pH 7.251 L POC ABG pCO2 POC ABG pO2 126 H Sodium Potassium Chloride Carbon Dioxide BUN Creatinine Glucose POC Glucose Lactic Acid Calcium Ionized Calcium Phosphorus Magnesium ALT Alkaline Phosphatase Total Creatine Kinase CK-MB (CK-2) Troponin T C-Reactive Protein 2.30 H Total Protein Albumin Urine WBC (Auto) Urine Creatinine Salicylates Miscellaneous Test Flexitest 1 H Crossmatch 05/18/17 05/18/17 05/18/17 14:46 21:30 Unknown WBC RBC Hgb Hct RDW Plt Count Seg Neuts % (Manual) Lymphocytes % (Manual) Monocytes % (Manual) Nucleated RBC % Seg Neutrophils # Man Lymphocytes # (Manual) Monocytes # (Manual) Eosinophils # (Manual) PT INR APTT D-Dimer POC ABG pH 7.227 L POC ABG pCO2 POC ABG pO2 126 H Sodium Potassium 3.2 L Chloride 108.9 H Carbon Dioxide 19 L BUN 44 H Creatinine 3.6 H Glucose POC Glucose 206 H Lactic Acid Calcium 7.3 L Ionized Calcium Phosphorus Magnesium ALT Alkaline Phosphatase Total Creatine Kinase CK-MB (CK-2) Troponin T C-Reactive Protein Total Protein Albumin Urine WBC (Auto) Urine Creatinine Salicylates Miscellaneous Test Crossmatch 05/18/17 05/19/17 05/19/17 Unknown 05:26 06:00 WBC 25.2 H RBC 2.76 L Hgb 8.0 L Hct 24.9 L RDW 17.7 H Plt Count Seg Neuts % (Manual) 86.0 H Lymphocytes % (Manual) 1.0 L Monocytes % (Manual) Nucleated RBC % Seg Neutrophils # Man 21.7 H Lymphocytes # (Manual) 0.3 L Monocytes # (Manual) 1.5 H Eosinophils # (Manual) PT INR APTT D-Dimer POC ABG pH 7.216 L POC ABG pCO2 47.0 H POC ABG pO2 Sodium Potassium Chloride Carbon Dioxide BUN Creatinine Glucose POC Glucose 173 H Lactic Acid Calcium Ionized Calcium Phosphorus Magnesium ALT Alkaline Phosphatase Total Creatine Kinase CK-MB (CK-2) Troponin T C-Reactive Protein Total Protein Albumin Urine WBC (Auto) Urine Creatinine Salicylates Miscellaneous Test Crossmatch 05/19/17 05/19/17 05/19/17 11:47 18:04 23:54 WBC RBC Hgb Hct RDW Plt Count Seg Neuts % (Manual) Lymphocytes % (Manual) Monocytes % (Manual) Nucleated RBC % Seg Neutrophils # Man Lymphocytes # (Manual) Monocytes # (Manual) Eosinophils # (Manual) PT INR APTT D-Dimer POC ABG pH POC ABG pCO2 POC ABG pO2 Sodium Potassium Chloride Carbon Dioxide BUN Creatinine Glucose POC Glucose 203 H 178 H Lactic Acid Calcium Ionized Calcium Phosphorus Magnesium ALT Alkaline Phosphatase Total Creatine Kinase CK-MB (CK-2) Troponin T C-Reactive Protein Total Protein Albumin Urine WBC (Auto) 78.0 H Urine Creatinine Salicylates Miscellaneous Test Crossmatch 05/19/17 05/19/17 05/20/17 Unknown Unknown 05:03 WBC 36.5 H RBC 2.71 L Hgb 7.7 L Hct 24.3 L RDW 18.3 H Plt Count Seg Neuts % (Manual) 79.0 H Lymphocytes % (Manual) 3.0 L Monocytes % (Manual) Nucleated RBC % Seg Neutrophils # Man 28.8 H Lymphocytes # (Manual) 1.1 L Monocytes # (Manual) 2.6 H Eosinophils # (Manual) PT INR APTT D-Dimer POC ABG pH 7.322 L POC ABG pCO2 46.3 H POC ABG pO2 160 H Sodium Potassium 3.5 L Chloride 108.1 H Carbon Dioxide 20 L BUN 36 H Creatinine 3.1 H Glucose 165 H POC Glucose Lactic Acid Calcium 7.7 L Ionized Calcium Phosphorus Magnesium ALT Alkaline Phosphatase Total Creatine Kinase CK-MB (CK-2) Troponin T C-Reactive Protein Total Protein Albumin Urine WBC (Auto) Urine Creatinine Salicylates Miscellaneous Test Crossmatch 05/20/17 05/20/17 05/20/17 05:30 05:30 05:44 WBC 44.4 H* RBC 2.65 L Hgb 7.6 L Hct 23.7 L RDW 18.0 H Plt Count Seg Neuts % (Manual) Lymphocytes % (Manual) 7.0 L Monocytes % (Manual) 12.0 H Nucleated RBC % Seg Neutrophils # Man 22.2 H Lymphocytes # (Manual) Monocytes # (Manual) 5.3 H Eosinophils # (Manual) PT INR APTT D-Dimer POC ABG pH POC ABG pCO2 POC ABG pO2 Sodium Potassium 3.5 L Chloride Carbon Dioxide BUN 23 H Creatinine 2.1 H Glucose 167 H POC Glucose 182 H Lactic Acid Calcium 7.7 L Ionized Calcium Phosphorus Magnesium 1.40 L ALT Alkaline Phosphatase Total Creatine Kinase CK-MB (CK-2) Troponin T C-Reactive Protein Total Protein Albumin Urine WBC (Auto) Urine Creatinine Salicylates Miscellaneous Test Crossmatch 05/20/17 05/20/17 05/20/17 11:59 13:46 13:46 WBC RBC Hgb Hct RDW Plt Count Seg Neuts % (Manual) Lymphocytes % (Manual) Monocytes % (Manual) Nucleated RBC % Seg Neutrophils # Man Lymphocytes # (Manual) Monocytes # (Manual) Eosinophils # (Manual) PT 22.6 H INR 1.89 H APTT 44.6 H D-Dimer POC ABG pH POC ABG pCO2 POC ABG pO2 Sodium Potassium Chloride Carbon Dioxide BUN Creatinine Glucose POC Glucose 162 H Lactic Acid Calcium Ionized Calcium Phosphorus Magnesium ALT Alkaline Phosphatase Total Creatine Kinase CK-MB (CK-2) Troponin T C-Reactive Protein Total Protein Albumin Urine WBC (Auto) Urine Creatinine Salicylates Miscellaneous Test Crossmatch See Detail 05/20/17 05/20/17 05/20/17 17:36 20:00 20:44 WBC 38.3 H RBC 3.60 L Hgb Hct RDW 15.8 H Plt Count Seg Neuts % (Manual) Lymphocytes % (Manual) Monocytes % (Manual) Nucleated RBC % Seg Neutrophils # Man Lymphocytes # (Manual) Monocytes # (Manual) Eosinophils # (Manual) PT 21.4 H INR 1.76 H APTT 172.2 H* D-Dimer POC ABG pH POC ABG pCO2 POC ABG pO2 Sodium Potassium Chloride Carbon Dioxide BUN Creatinine Glucose POC Glucose 144 H Lactic Acid Calcium Ionized Calcium Phosphorus Magnesium ALT Alkaline Phosphatase Total Creatine Kinase CK-MB (CK-2) Troponin T C-Reactive Protein Total Protein Albumin Urine WBC (Auto) Urine Creatinine Salicylates Miscellaneous Test Crossmatch 05/20/17 05/20/17 05/21/17 22:20 23:37 05:20 WBC RBC Hgb Hct RDW Plt Count Seg Neuts % (Manual) Lymphocytes % (Manual) Monocytes % (Manual) Nucleated RBC % Seg Neutrophils # Man Lymphocytes # (Manual) Monocytes # (Manual) Eosinophils # (Manual) PT INR APTT 42.8 H D-Dimer POC ABG pH POC ABG pCO2 POC ABG pO2 Sodium Potassium 3.5 L Chloride Carbon Dioxide BUN Creatinine 1.5 H Glucose 106 H POC Glucose 113 H Lactic Acid Calcium 7.7 L Ionized Calcium Phosphorus Magnesium ALT Alkaline Phosphatase Total Creatine Kinase CK-MB (CK-2) Troponin T C-Reactive Protein Total Protein Albumin Urine WBC (Auto) Urine Creatinine Salicylates Miscellaneous Test Crossmatch 05/21/17 05/21/17 05/21/17 05:20 05:20 05:31 WBC 31.6 H RBC Hgb Hct RDW 15.8 H Plt Count Seg Neuts % (Manual) 90.0 H Lymphocytes % (Manual) 3.0 L Monocytes % (Manual) Nucleated RBC % Seg Neutrophils # Man 28.4 H Lymphocytes # (Manual) 0.9 L Monocytes # (Manual) Eosinophils # (Manual) 1.3 H PT 19.1 H INR 1.53 H APTT 37.9 H D-Dimer POC ABG pH POC ABG pCO2 POC ABG pO2 Sodium Potassium Chloride Carbon Dioxide BUN Creatinine Glucose POC Glucose 126 H Lactic Acid Calcium Ionized Calcium Phosphorus Magnesium ALT Alkaline Phosphatase Total Creatine Kinase CK-MB (CK-2) Troponin T C-Reactive Protein Total Protein Albumin Urine WBC (Auto) Urine Creatinine Salicylates Miscellaneous Test Crossmatch 05/21/17 05/21/17 05/21/17 12:46 13:00 13:00 WBC 32.9 H RBC 3.09 L Hgb 9.0 L Hct 27.6 L RDW 16.3 H Plt Count Seg Neuts % (Manual) 86.0 H Lymphocytes % (Manual) 2.0 L Monocytes % (Manual) Nucleated RBC % 2.0 H Seg Neutrophils # Man 28.3 H Lymphocytes # (Manual) 0.7 L Monocytes # (Manual) Eosinophils # (Manual) PT INR APTT D-Dimer POC ABG pH POC ABG pCO2 POC ABG pO2 Sodium Potassium 3.3 L Chloride 108.4 H Carbon Dioxide 20 L BUN Creatinine 1.4 H Glucose 119 H POC Glucose 157 H Lactic Acid Calcium 6.5 L D Ionized Calcium Phosphorus Magnesium ALT Alkaline Phosphatase 28 L Total Creatine Kinase CK-MB (CK-2) Troponin T C-Reactive Protein Total Protein 3.2 L Albumin 1.7 L Urine WBC (Auto) Urine Creatinine Salicylates Miscellaneous Test Crossmatch 05/21/17 05/21/17 05/21/17 13:00 18:15 21:00 WBC 42.4 H* RBC 2.85 L Hgb 8.2 L Hct 25.9 L RDW 16.3 H Plt Count Seg Neuts % (Manual) 95.0 H Lymphocytes % (Manual) 3.0 L Monocytes % (Manual) Nucleated RBC % Seg Neutrophils # Man 40.3 H Lymphocytes # (Manual) Monocytes # (Manual) Eosinophils # (Manual) PT 19.7 H INR 1.59 H APTT 41.1 H D-Dimer POC ABG pH POC ABG pCO2 POC ABG pO2 Sodium Potassium Chloride Carbon Dioxide BUN Creatinine Glucose POC Glucose 149 H Lactic Acid Calcium Ionized Calcium Phosphorus Magnesium ALT Alkaline Phosphatase Total Creatine Kinase CK-MB (CK-2) Troponin T C-Reactive Protein Total Protein Albumin Urine WBC (Auto) Urine Creatinine Salicylates Miscellaneous Test Crossmatch 05/22/17 05/22/17 05/22/17 00:02 04:50 04:50 WBC RBC Hgb Hct RDW Plt Count Seg Neuts % (Manual) Lymphocytes % (Manual) Monocytes % (Manual) Nucleated RBC % Seg Neutrophils # Man Lymphocytes # (Manual) Monocytes # (Manual) Eosinophils # (Manual) PT INR APTT D-Dimer POC ABG pH POC ABG pCO2 POC ABG pO2 Sodium Potassium Chloride 109.4 H Carbon Dioxide 18 L BUN Creatinine 1.8 H Glucose 164 H POC Glucose 155 H Lactic Acid Calcium 6.6 L Ionized Calcium Phosphorus Magnesium 1.40 L ALT Alkaline Phosphatase 33 L Total Creatine Kinase CK-MB (CK-2) Troponin T C-Reactive Protein Total Protein 3.6 L Albumin 2.0 L Urine WBC (Auto) Urine Creatinine Salicylates Miscellaneous Test Crossmatch 05/22/17 05/22/17 05/22/17 04:50 04:50 05:39 WBC 41.8 H* RBC 2.65 L Hgb 7.8 L Hct 24.1 L RDW 16.5 H Plt Count Seg Neuts % (Manual) 73.0 H Lymphocytes % (Manual) 4.0 L Monocytes % (Manual) Nucleated RBC % Seg Neutrophils # Man 30.5 H Lymphocytes # (Manual) Monocytes # (Manual) 1.3 H Eosinophils # (Manual) PT 21.3 H INR 1.75 H APTT 39.4 H D-Dimer POC ABG pH POC ABG pCO2 POC ABG pO2 Sodium Potassium Chloride Carbon Dioxide BUN Creatinine Glucose POC Glucose 200 H Lactic Acid Calcium Ionized Calcium Phosphorus Magnesium ALT Alkaline Phosphatase Total Creatine Kinase CK-MB (CK-2) Troponin T C-Reactive Protein Total Protein Albumin Urine WBC (Auto) Urine Creatinine Salicylates Miscellaneous Test Crossmatch 05/22/17 05/22/17 05/22/17 05:46 10:32 11:41 WBC RBC Hgb Hct RDW Plt Count Seg Neuts % (Manual) Lymphocytes % (Manual) Monocytes % (Manual) Nucleated RBC % Seg Neutrophils # Man Lymphocytes # (Manual) Monocytes # (Manual) Eosinophils # (Manual) PT INR APTT D-Dimer POC ABG pH 7.225 L 7.317 L POC ABG pCO2 45.3 H POC ABG pO2 Sodium Potassium Chloride Carbon Dioxide BUN Creatinine Glucose POC Glucose 169 H Lactic Acid Calcium Ionized Calcium Phosphorus Magnesium ALT Alkaline Phosphatase Total Creatine Kinase CK-MB (CK-2) Troponin T C-Reactive Protein Total Protein Albumin Urine WBC (Auto) Urine Creatinine Salicylates Miscellaneous Test Crossmatch 05/22/17 05/22/17 05/22/17 12:45 18:01 22:50 WBC RBC Hgb 7.4 L 8.8 L Hct 23.5 L 27.8 L RDW Plt Count Seg Neuts % (Manual) Lymphocytes % (Manual) Monocytes % (Manual) Nucleated RBC % Seg Neutrophils # Man Lymphocytes # (Manual) Monocytes # (Manual) Eosinophils # (Manual) PT INR APTT D-Dimer POC ABG pH POC ABG pCO2 POC ABG pO2 Sodium Potassium Chloride Carbon Dioxide BUN Creatinine Glucose POC Glucose 148 H Lactic Acid Calcium Ionized Calcium Phosphorus Magnesium ALT Alkaline Phosphatase Total Creatine Kinase CK-MB (CK-2) Troponin T C-Reactive Protein Total Protein Albumin Urine WBC (Auto) Urine Creatinine Salicylates Miscellaneous Test Crossmatch 05/22/17 05/23/17 05/23/17 23:53 05:15 05:15 WBC 40.9 H* RBC 3.06 L Hgb 8.9 L Hct 27.4 L RDW 16.7 H Plt Count Seg Neuts % (Manual) 93.0 H Lymphocytes % (Manual) 3.0 L Monocytes % (Manual) Nucleated RBC % Seg Neutrophils # Man 38.0 H Lymphocytes # (Manual) Monocytes # (Manual) Eosinophils # (Manual) PT INR APTT D-Dimer POC ABG pH POC ABG pCO2 POC ABG pO2 Sodium Potassium Chloride 110.6 H Carbon Dioxide 19 L BUN 18 H Creatinine 1.9 H Glucose 102 H POC Glucose 143 H Lactic Acid Calcium 7.0 L Ionized Calcium Phosphorus Magnesium ALT Alkaline Phosphatase Total Creatine Kinase CK-MB (CK-2) Troponin T C-Reactive Protein Total Protein Albumin Urine WBC (Auto) Urine Creatinine Salicylates Miscellaneous Test Crossmatch 05/23/17 05/23/17 05/23/17 05:23 06:09 08:55 WBC RBC Hgb Hct RDW Plt Count Seg Neuts % (Manual) Lymphocytes % (Manual) Monocytes % (Manual) Nucleated RBC % Seg Neutrophils # Man Lymphocytes # (Manual) Monocytes # (Manual) Eosinophils # (Manual) PT INR APTT D-Dimer POC ABG pH 7.240 L 7.297 L POC ABG pCO2 POC ABG pO2 Sodium Potassium Chloride Carbon Dioxide BUN Creatinine Glucose POC Glucose 124 H Lactic Acid Calcium Ionized Calcium Phosphorus Magnesium ALT Alkaline Phosphatase Total Creatine Kinase CK-MB (CK-2) Troponin T C-Reactive Protein Total Protein Albumin Urine WBC (Auto) Urine Creatinine Salicylates Miscellaneous Test Crossmatch 05/23/17 05/23/17 05/23/17 12:46 16:55 18:33 WBC RBC Hgb Hct RDW Plt Count Seg Neuts % (Manual) Lymphocytes % (Manual) Monocytes % (Manual) Nucleated RBC % Seg Neutrophils # Man Lymphocytes # (Manual) Monocytes # (Manual) Eosinophils # (Manual) PT INR APTT D-Dimer POC ABG pH POC ABG pCO2 POC ABG pO2 Sodium Potassium Chloride Carbon Dioxide BUN Creatinine Glucose POC Glucose 159 H 139 H Lactic Acid Calcium Ionized Calcium Phosphorus Magnesium ALT Alkaline Phosphatase Total Creatine Kinase CK-MB (CK-2) Troponin T C-Reactive Protein 7.10 H Total Protein Albumin Urine WBC (Auto) Urine Creatinine Salicylates Miscellaneous Test Crossmatch 05/23/17 05/24/17 05/24/17 23:25 06:14 07:16 WBC RBC Hgb Hct RDW Plt Count Seg Neuts % (Manual) Lymphocytes % (Manual) Monocytes % (Manual) Nucleated RBC % Seg Neutrophils # Man Lymphocytes # (Manual) Monocytes # (Manual) Eosinophils # (Manual) PT INR APTT D-Dimer POC ABG pH POC ABG pCO2 POC ABG pO2 Sodium Potassium Chloride Carbon Dioxide BUN Creatinine 1.5 H Glucose 130 H POC Glucose 143 H 159 H Lactic Acid Calcium 7.6 L Ionized Calcium Phosphorus Magnesium ALT Alkaline Phosphatase Total Creatine Kinase CK-MB (CK-2) Troponin T C-Reactive Protein Total Protein Albumin Urine WBC (Auto) Urine Creatinine Salicylates Miscellaneous Test Crossmatch 05/24/17 05/24/17 05/24/17 07:16 11:42 17:27 WBC 36.9 H RBC 2.90 L Hgb 8.5 L Hct 26.2 L RDW 16.8 H Plt Count Seg Neuts % (Manual) 96.5 H Lymphocytes % (Manual) 0 L Monocytes % (Manual) Nucleated RBC % 2.0 H Seg Neutrophils # Man 35.6 H Lymphocytes # (Manual) 0.0 L Monocytes # (Manual) 0.9 H Eosinophils # (Manual) PT INR APTT D-Dimer POC ABG pH POC ABG pCO2 POC ABG pO2 Sodium Potassium Chloride Carbon Dioxide BUN Creatinine Glucose POC Glucose 168 H 59 L Lactic Acid Calcium Ionized Calcium Phosphorus Magnesium ALT Alkaline Phosphatase Total Creatine Kinase CK-MB (CK-2) Troponin T C-Reactive Protein Total Protein Albumin Urine WBC (Auto) Urine Creatinine Salicylates Miscellaneous Test Crossmatch 05/24/17 05/24/17 05/25/17 18:43 23:47 05:37 WBC RBC Hgb Hct RDW Plt Count Seg Neuts % (Manual) Lymphocytes % (Manual) Monocytes % (Manual) Nucleated RBC % Seg Neutrophils # Man Lymphocytes # (Manual) Monocytes # (Manual) Eosinophils # (Manual) PT INR APTT D-Dimer POC ABG pH POC ABG pCO2 POC ABG pO2 Sodium Potassium Chloride Carbon Dioxide BUN Creatinine Glucose POC Glucose 139 H 150 H 152 H Lactic Acid Calcium Ionized Calcium Phosphorus Magnesium ALT Alkaline Phosphatase Total Creatine Kinase CK-MB (CK-2) Troponin T C-Reactive Protein Total Protein Albumin Urine WBC (Auto) Urine Creatinine Salicylates Miscellaneous Test Crossmatch 05/25/17 05/25/17 05/25/17 07:08 07:08 12:06 WBC 31.7 H RBC 2.81 L Hgb 8.2 L Hct 25.4 L RDW 16.3 H Plt Count Seg Neuts % (Manual) 97.0 H Lymphocytes % (Manual) 1.5 L Monocytes % (Manual) Nucleated RBC % 3.5 H Seg Neutrophils # Man 30.7 H Lymphocytes # (Manual) 0.5 L Monocytes # (Manual) Eosinophils # (Manual) PT INR APTT D-Dimer POC ABG pH POC ABG pCO2 POC ABG pO2 Sodium Potassium Chloride Carbon Dioxide BUN 24 H Creatinine 1.5 H Glucose 126 H POC Glucose 178 H Lactic Acid Calcium 8.0 L Ionized Calcium Phosphorus Magnesium ALT Alkaline Phosphatase Total Creatine Kinase CK-MB (CK-2) Troponin T C-Reactive Protein Total Protein Albumin Urine WBC (Auto) Urine Creatinine Salicylates Miscellaneous Test Crossmatch 05/25/17 05/25/17 05/26/17 17:47 23:30 05:32 WBC RBC Hgb Hct RDW Plt Count Seg Neuts % (Manual) Lymphocytes % (Manual) Monocytes % (Manual) Nucleated RBC % Seg Neutrophils # Man Lymphocytes # (Manual) Monocytes # (Manual) Eosinophils # (Manual) PT INR APTT D-Dimer POC ABG pH POC ABG pCO2 POC ABG pO2 Sodium Potassium Chloride Carbon Dioxide BUN Creatinine Glucose POC Glucose 123 H 125 H 182 H Lactic Acid Calcium Ionized Calcium Phosphorus Magnesium ALT Alkaline Phosphatase Total Creatine Kinase CK-MB (CK-2) Troponin T C-Reactive Protein Total Protein Albumin Urine WBC (Auto) Urine Creatinine Salicylates Miscellaneous Test Crossmatch 05/26/17 05/26/17 05/26/17 06:00 07:15 07:15 WBC 21.0 H RBC 2.72 L Hgb 7.8 L Hct 24.5 L RDW 16.5 H Plt Count Seg Neuts % (Manual) 88.0 H Lymphocytes % (Manual) 6.0 L Monocytes % (Manual) Nucleated RBC % 3.0 H Seg Neutrophils # Man 18.5 H Lymphocytes # (Manual) Monocytes # (Manual) Eosinophils # (Manual) PT INR APTT D-Dimer POC ABG pH POC ABG pCO2 POC ABG pO2 Sodium Potassium Chloride Carbon Dioxide BUN 34 H 34 H Creatinine 1.5 H 1.5 H Glucose 148 H 145 H POC Glucose Lactic Acid Calcium 8.1 L 8.2 L Ionized Calcium Phosphorus Magnesium ALT < 5 L Alkaline Phosphatase Total Creatine Kinase CK-MB (CK-2) Troponin T C-Reactive Protein Total Protein 4.0 L Albumin 2.3 L Urine WBC (Auto) Urine Creatinine Salicylates Miscellaneous Test Crossmatch 05/26/17 05/26/17 05/26/17 10:50 12:16 18:14 WBC RBC Hgb Hct RDW Plt Count Seg Neuts % (Manual) Lymphocytes % (Manual) Monocytes % (Manual) Nucleated RBC % Seg Neutrophils # Man Lymphocytes # (Manual) Monocytes # (Manual) Eosinophils # (Manual) PT INR APTT D-Dimer POC ABG pH POC ABG pCO2 POC ABG pO2 Sodium Potassium Chloride Carbon Dioxide BUN Creatinine Glucose POC Glucose 143 H 161 H Lactic Acid Calcium Ionized Calcium Phosphorus Magnesium ALT Alkaline Phosphatase Total Creatine Kinase CK-MB (CK-2) Troponin T C-Reactive Protein Total Protein Albumin Urine WBC (Auto) Urine Creatinine Salicylates Miscellaneous Test Crossmatch See Detail 05/26/17 05/26/17 05/27/17 19:02 23:46 05:17 WBC 19.8 H RBC 3.35 L Hgb 9.7 L Hct 29.3 L RDW 17.8 H Plt Count Seg Neuts % (Manual) 89.0 H Lymphocytes % (Manual) 6.0 L Monocytes % (Manual) Nucleated RBC % Seg Neutrophils # Man 17.6 H Lymphocytes # (Manual) Monocytes # (Manual) Eosinophils # (Manual) PT INR APTT D-Dimer POC ABG pH POC ABG pCO2 POC ABG pO2 Sodium Potassium Chloride Carbon Dioxide BUN Creatinine Glucose POC Glucose 108 H 173 H Lactic Acid Calcium Ionized Calcium Phosphorus Magnesium ALT Alkaline Phosphatase Total Creatine Kinase CK-MB (CK-2) Troponin T C-Reactive Protein Total Protein Albumin Urine WBC (Auto) Urine Creatinine Salicylates Miscellaneous Test Crossmatch 05/27/17 05/27/17 05/27/17 06:05 06:05 11:44 WBC 20.2 H RBC 3.30 L Hgb 9.2 L Hct 28.6 L RDW 17.7 H Plt Count Seg Neuts % (Manual) 83.0 H Lymphocytes % (Manual) 7.0 L Monocytes % (Manual) Nucleated RBC % 1.0 H Seg Neutrophils # Man 16.8 H Lymphocytes # (Manual) Monocytes # (Manual) 1.2 H Eosinophils # (Manual) PT INR APTT D-Dimer POC ABG pH POC ABG pCO2 POC ABG pO2 Sodium Potassium Chloride Carbon Dioxide BUN 39 H Creatinine 1.4 H Glucose 162 H POC Glucose 138 H Lactic Acid Calcium 8.1 L Ionized Calcium Phosphorus Magnesium ALT Alkaline Phosphatase Total Creatine Kinase CK-MB (CK-2) Troponin T C-Reactive Protein Total Protein Albumin Urine WBC (Auto) Urine Creatinine Salicylates Miscellaneous Test Crossmatch 05/27/17 05/27/17 05/28/17 16:58 21:39 04:00 WBC RBC Hgb Hct RDW Plt Count Seg Neuts % (Manual) Lymphocytes % (Manual) Monocytes % (Manual) Nucleated RBC % Seg Neutrophils # Man Lymphocytes # (Manual) Monocytes # (Manual) Eosinophils # (Manual) PT INR APTT D-Dimer POC ABG pH POC ABG pCO2 POC ABG pO2 Sodium Potassium Chloride Carbon Dioxide BUN 44 H Creatinine Glucose 148 H POC Glucose 148 H 149 H Lactic Acid Calcium 8.2 L Ionized Calcium Phosphorus Magnesium ALT Alkaline Phosphatase Total Creatine Kinase CK-MB (CK-2) Troponin T C-Reactive Protein Total Protein Albumin Urine WBC (Auto) Urine Creatinine Salicylates Miscellaneous Test Crossmatch 05/28/17 05/28/17 05/28/17 04:00 11:31 17:04 WBC 17.4 H RBC 3.08 L Hgb 9.0 L Hct 27.2 L RDW 17.6 H Plt Count Seg Neuts % (Manual) 75.0 H Lymphocytes % (Manual) 5.0 L Monocytes % (Manual) 10.0 H Nucleated RBC % 2.0 H Seg Neutrophils # Man 13.1 H Lymphocytes # (Manual) 0.9 L Monocytes # (Manual) 1.7 H Eosinophils # (Manual) 0.5 H PT INR APTT D-Dimer POC ABG pH POC ABG pCO2 POC ABG pO2 Sodium Potassium Chloride Carbon Dioxide BUN Creatinine Glucose POC Glucose 205 H 129 H Lactic Acid Calcium Ionized Calcium Phosphorus Magnesium ALT Alkaline Phosphatase Total Creatine Kinase CK-MB (CK-2) Troponin T C-Reactive Protein Total Protein Albumin Urine WBC (Auto) Urine Creatinine Salicylates Miscellaneous Test Crossmatch 05/29/17 05/29/17 05/29/17 00:18 06:30 06:40 WBC RBC Hgb Hct RDW Plt Count Seg Neuts % (Manual) Lymphocytes % (Manual) Monocytes % (Manual) Nucleated RBC % Seg Neutrophils # Man Lymphocytes # (Manual) Monocytes # (Manual) Eosinophils # (Manual) PT INR APTT D-Dimer POC ABG pH POC ABG pCO2 POC ABG pO2 Sodium Potassium Chloride Carbon Dioxide BUN 50 H Creatinine Glucose 145 H POC Glucose 167 H 126 H Lactic Acid Calcium 8.2 L Ionized Calcium Phosphorus Magnesium ALT Alkaline Phosphatase Total Creatine Kinase CK-MB (CK-2) Troponin T C-Reactive Protein Total Protein Albumin Urine WBC (Auto) Urine Creatinine Salicylates Miscellaneous Test Crossmatch 05/29/17 05/29/17 05/29/17 12:10 15:55 23:56 WBC RBC Hgb Hct RDW Plt Count Seg Neuts % (Manual) Lymphocytes % (Manual) Monocytes % (Manual) Nucleated RBC % Seg Neutrophils # Man Lymphocytes # (Manual) Monocytes # (Manual) Eosinophils # (Manual) PT INR APTT D-Dimer POC ABG pH POC ABG pCO2 POC ABG pO2 Sodium Potassium Chloride Carbon Dioxide BUN Creatinine Glucose POC Glucose 189 H 209 H 54 L Lactic Acid Calcium Ionized Calcium Phosphorus Magnesium ALT Alkaline Phosphatase Total Creatine Kinase CK-MB (CK-2) Troponin T C-Reactive Protein Total Protein Albumin Urine WBC (Auto) Urine Creatinine Salicylates Miscellaneous Test Crossmatch 05/30/17 05/30/17 00:40 05:24 WBC RBC Hgb Hct RDW Plt Count Seg Neuts % (Manual) Lymphocytes % (Manual) Monocytes % (Manual) Nucleated RBC % Seg Neutrophils # Man Lymphocytes # (Manual) Monocytes # (Manual) Eosinophils # (Manual) PT INR APTT D-Dimer POC ABG pH POC ABG pCO2 POC ABG pO2 Sodium Potassium 5.6 H Chloride Carbon Dioxide BUN 52 H Creatinine Glucose 56 L POC Glucose 163 H Lactic Acid Calcium 8.2 L Ionized Calcium Phosphorus Magnesium ALT Alkaline Phosphatase Total Creatine Kinase CK-MB (CK-2) Troponin T C-Reactive Protein Total Protein Albumin Urine WBC (Auto) Urine Creatinine Salicylates Miscellaneous Test Crossmatch
--- NOTE | 2017-05-30 12:08 | Progress Note ---
Assessment and Plan POD # 9 Pt states feeling well. keara diet Abd soft. incision clean. drainage noted around ostomy bag surgically stable PT for ROM and ambulate as kaera ET nurse to better seal ostomy Objective Vital Signs - 12hr 05/30/17 05/30/17 05/30/17 03:18 07:51 08:53 Temperature 98.0 F Pulse Rate 117 H Pulse Rate [ 104 H Anterior Bilateral Throughout] Respiratory 16 18 Rate Respiratory 20 Rate [Anterior Bilateral Throughout] Blood Pressure 88/52 O2 Sat by Pulse 96 100 Oximetry 05/30/17 09:04 Temperature Pulse Rate Pulse Rate [ 107 H Anterior Bilateral Throughout] Respiratory Rate Respiratory 20 Rate [Anterior Bilateral Throughout] Blood Pressure O2 Sat by Pulse Oximetry - Labs 05/28/17 04:00 05/30/17 05:24 Diabetes panel 05/30/17 Range/Units 05:24 Sodium 141 (137-145) mmol/L Potassium 5.6 H (3.6-5.0) mmol/L Chloride 100.4 (98-107) mmol/L Carbon Dioxide 26 (22-30) mmol/L BUN 52 H (7-17) mg/dL Creatinine 1.1 (0.7-1.2) mg/dL Glucose 56 L (65-100) mg/dL Calcium 8.2 L (8.4-10.2) mg/dL Calcium panel 05/30/17 Range/Units 05:24 Calcium 8.2 L (8.4-10.2) mg/dL Pituitary panel 05/30/17 Range/Units 05:24 Sodium 141 (137-145) mmol/L Potassium 5.6 H (3.6-5.0) mmol/L Chloride 100.4 (98-107) mmol/L Carbon Dioxide 26 (22-30) mmol/L BUN 52 H (7-17) mg/dL Creatinine 1.1 (0.7-1.2) mg/dL Glucose 56 L (65-100) mg/dL Calcium 8.2 L (8.4-10.2) mg/dL Adrenal panel 05/30/17 Range/Units 05:24 Sodium 141 (137-145) mmol/L Potassium 5.6 H (3.6-5.0) mmol/L Chloride 100.4 (98-107) mmol/L Carbon Dioxide 26 (22-30) mmol/L BUN 52 H (7-17) mg/dL Creatinine 1.1 (0.7-1.2) mg/dL Glucose 56 L (65-100) mg/dL Calcium 8.2 L (8.4-10.2) mg/dL
--- NOTE | 2017-05-30 13:46 | Progress Note ---
Assessment and Plan Assessment and plan: C. difficile colitis - Patient was treated with flagyl and off flagyl now Sepsis - Patient is off pressors, was treated with meropenem Status post partial colectomy - Surgical wound is stable - Patient tolerated liquid diet and will advance her diet - Surgery is following Acute on chronic renal failure, hyperkalemia - Patient renal function is back to baseline - Nephrology following COPD exacerbation, acute on chronic respiratory - patient is currently stable Anemia - Stable DVT prophylaxis Disposition - Patient need rehabilitation placement History Interval history: Patient was seen and evaluated this morning, patient didn't have any complaints. Hospitalist Physical - Physical exam Narrative exam: Not in cardiopulmonary distress. On intranasal oxygen The patient appeared well nourished and normally developed. Vital signs as documented. Head exam is unremarkable. No scleral icterus . Neck is without jugular venous distension, thyromegaly, or carotid bruits. Lungs are clear to auscultation. Cardiac exam reveals regular rate and Rhythm. First and second heart sounds normal. No murmurs, rubs or gallops. Abdominal ostomy is clean. Extremities are nonedematous and both femoral and pedal pulses are normal. CAKE FORMER: Alert and oriented 3. No focal weakness. - Constitutional Vitals: Temp Pulse Resp BP Pulse Ox 98.0 F 107 H 20 88/52 100 05/30/17 07:51 05/30/17 09:04 05/30/17 09:04 05/30/17 07:51 05/30/17 08:53 General appearance: Present: no acute distress, mild distress, well-nourished, other (intubatd and vent supported) Results - Labs CBC & Chem 7: 05/28/17 04:00 05/30/17 05:24 Labs: Laboratory Last Values WBC 17.4 K/mm3 (4.5-11.0) H 05/28/17 04:00 RBC 3.08 M/mm3 (3.65-5.03) L 05/28/17 04:00 Hgb 9.0 gm/dl (10.1-14.3) L 05/28/17 04:00 Hct 27.2 % (30.3-42.9) L 05/28/17 04:00 MCV 88 fl (79-97) 05/28/17 04:00 MCH 29 pg (28-32) 05/28/17 04:00 MCHC 33 % (30-34) 05/28/17 04:00 RDW 17.6 % (13.2-15.2) H 05/28/17 04:00 Plt Count 196 K/mm3 (140-440) 05/28/17 04:00 [place] % (Auto) % (0.0-7.3) 05/22/17 04:50 Eos % (Auto) % (0.0-4.3) 05/22/17 04:50 [place] # K/mm3 (0.0-0.8) 05/22/17 04:50 Eos # K/mm3 (0.0-0.4) 05/22/17 04:50 Baso # 0.0 K/mm3 (0.0-0.1) 05/22/17 04:50 Add Manual Diff Complete 05/28/17 04:00 Total Counted 100 05/28/17 04:00 Seg Neutrophils % Reference Services Head 05/24/17 07:16 Seg Neuts % (Manual) 75.0 % (40.0-70.0) H 05/28/17 04:00 Band Neutrophils % 7.0 % 05/28/17 04:00 Lymphocytes % (Manual) 5.0 % (13.4-35.0) L 05/28/17 04:00 Reactive Lymphs % (Man) 0 % 05/28/17 04:00 Monocytes % (Manual) 10.0 % (0.0-7.3) H 05/28/17 04:00 Eosinophils % (Manual) 3.0 % (0.0-4.3) 05/28/17 04:00 Basophils % (Manual) 0 % (0.0-1.8) 05/28/17 04:00 Metamyelocytes % 0 % 05/28/17 04:00 Myelocytes % 0 % 05/28/17 04:00 Promyelocytes % 0 % 05/28/17 04:00 Blast Cells % 0 % 05/28/17 04:00 Nucleated RBC % 2.0 % (0.0-0.9) H 05/28/17 04:00 Seg Neutrophils # K/mm3 (1.8-7.7) 05/22/17 04:50 Seg Neutrophils # Man 13.1 K/mm3 (1.8-7.7) H 05/28/17 04:00 Band Neutrophils # 1.2 K/mm3 05/28/17 04:00 Lymphocytes # (Manual) 0.9 K/mm3 (1.2-5.4) L 05/28/17 04:00 Abs React Lymphs (Man) 0.0 K/mm3 05/28/17 04:00 Monocytes # (Manual) 1.7 K/mm3 (0.0-0.8) H 05/28/17 04:00 Eosinophils # (Manual) 0.5 K/mm3 (0.0-0.4) H 05/28/17 04:00 Basophils # (Manual) 0.0 K/mm3 (0.0-0.1) 05/28/17 04:00 Metamyelocytes # 0.0 K/mm3 05/28/17 04:00 Myelocytes # 0.0 K/mm3 05/28/17 04:00 Promyelocytes # 0.0 K/mm3 05/28/17 04:00 Blast Cells # 0.0 K/mm3 05/28/17 04:00 WBC Morphology Not Reportable 05/28/17 04:00 Hypersegmented Neuts Not Reportable 05/28/17 04:00 Hyposegmented Neuts Not Reportable 05/28/17 04:00 Hypogranular Neuts Not Reportable 05/28/17 04:00 Smudge Cells Not Reportable 05/28/17 04:00 Toxic Granulation Not Reportable 05/28/17 04:00 Toxic Vacuolation Not Reportable 05/28/17 04:00 Dohle Bodies Not Reportable 05/28/17 04:00 Pelger-Huet Anomaly Not Reportable 05/28/17 04:00 Neisha Rods Not Reportable 05/28/17 04:00 Platelet Estimate Consistent w auto 05/28/17 04:00 Clumped Platelets Not Reportable 05/28/17 04:00 Plt Clumps, EDTA Not Reportable 05/28/17 04:00 Large Platelets Not Reportable 05/28/17 04:00 Giant Platelets Not Reportable 05/28/17 04:00 Platelet Satelliting Not Reportable 05/28/17 04:00 Plt Morphology Comment Not Reportable 05/28/17 04:00 RBC Morphology Not Reportable 05/28/17 04:00 Dimorphic RBCs Not Reportable 05/28/17 04:00 Polychromasia 1+ 05/28/17 04:00 Hypochromasia Not Reportable 05/28/17 04:00 Poikilocytosis Not Reportable 05/28/17 04:00 Anisocytosis 1+ 05/28/17 04:00 Microcytosis Not Reportable 05/28/17 04:00 Macrocytosis 1+ 05/28/17 04:00 Spherocytes Not Reportable 05/28/17 04:00 Pappenheimer Bodies Not Reportable 05/28/17 04:00 Sickle Cells Not Reportable 05/28/17 04:00 Target Cells Few 05/28/17 04:00 Tear Drop Cells Not Reportable 05/28/17 04:00 Ovalocytes Not Reportable 05/28/17 04:00 Stomatocytes Few 05/21/17 05:20 Helmet Cells Not Reportable 05/28/17 04:00 [place] Bodies Not Reportable 05/28/17 04:00 [place] Rings Not Reportable 05/28/17 04:00 Damián Cells Not Reportable 05/28/17 04:00 Bite Cells Not Reportable 05/28/17 04:00 Crenated Cell Not Reportable 05/28/17 04:00 Elliptocytes Not Reportable 05/28/17 04:00 Acanthocytes (Spur) Not Reportable 05/28/17 04:00 Rouleaux Not Reportable 05/28/17 04:00 Hemoglobin C Crystals Not Reportable 05/28/17 04:00 Schistocytes Not Reportable 05/28/17 04:00 Malaria parasites Not Reportable 05/28/17 04:00 Herve Bodies Not Reportable 05/28/17 04:00 Hem Pathologist Commnt No 05/28/17 04:00 PT 21.3 Sec. (12.2-14.9) H 05/22/17 04:50 INR 1.75 (0.87-1.13) H 05/22/17 04:50 APTT 39.4 Sec. (24.2-36.6) H 05/22/17 04:50 D-Dimer 8441.57 ng/mlDDU (0-234) H 05/04/17 Unknown POC ABG pH 7.424 (7.35-7.45) 05/26/17 09:49 POC ABG pCO2 44.1 (35-45) 05/26/17 09:49 POC ABG pO2 89 (80-105) 05/26/17 09:49 POC ABG HCO3 28.9 05/26/17 09:49 POC ABG Total CO2 30 05/26/17 09:49 POC ABG O2 Sat 97 05/26/17 09:49 POC ABG Base Excess 4 05/26/17 09:49 FiO2 25 % 05/26/17 09:49 Sodium 141 mmol/L (137-145) 05/30/17 05:24 Potassium 5.6 mmol/L (3.6-5.0) H 05/30/17 05:24 Chloride 100.4 mmol/L (98-107) 05/30/17 05:24 Carbon Dioxide 26 mmol/L (22-30) 05/30/17 05:24 Anion Gap 20 mmol/L 05/30/17 05:24 BUN 52 mg/dL (7-17) H 05/30/17 05:24 Creatinine 1.1 mg/dL (0.7-1.2) 05/30/17 05:24 Estimated GFR > 60 ml/min 05/30/17 05:24 BUN/Creatinine Ratio 47 % 05/30/17 05:24 Glucose 56 mg/dL (65-100) L 05/30/17 05:24 POC Glucose 84 (70-105) 05/30/17 12:19 Lactic Acid 0.60 mmol/L (0.7-2.0) L 05/16/17 00:15 Calcium 8.2 mg/dL (8.4-10.2) L 05/30/17 05:24 Ionized Calcium 3.5 mg/dL (4.8-5.6) L 05/05/17 17:45 Phosphorus 4.40 mg/dL (2.5-4.5) 05/29/17 06:40 Magnesium 1.70 mg/dL (1.7-2.3) 05/29/17 06:40 Total Bilirubin 0.30 mg/dL (0.1-1.2) 05/26/17 07:15 AST 9 units/L (5-40) 05/26/17 07:15 ALT < 5 units/L (7-56) L 05/26/17 07:15 Alkaline Phosphatase 41 units/L (35-129) 05/26/17 07:15 Total Creatine Kinase 346 units/L (30-135) H 05/05/17 05:20 CK-MB (CK-2) 8.2 ng/mL (0.0-4.0) H 05/05/17 05:20 CK-MB (CK-2) Rel Index 2.3 (0-4) 05/05/17 05:20 Troponin T 0.027 ng/mL (0.00-0.029) 05/05/17 05:20 C-Reactive Protein 7.10 mg/dL (0.00-1.30) H 05/23/17 16:55 Total Protein 4.0 g/dL (6.3-8.2) L 05/26/17 07:15 Albumin 2.3 g/dL (3.9-5) L 05/26/17 07:15 Albumin/Globulin Ratio 1.4 % 05/26/17 07:15 Triglycerides 149 mg/dL (2-149) 05/04/17 18:55 Cholesterol 185 mg/dL (50-199) 05/04/17 18:55 LDL Cholesterol Direct 103 mg/dL (50-130) 05/04/17 18:55 HDL Cholesterol 53 mg/dL (40-59) 05/04/17 18:55 Cholesterol/HDL Ratio 3.49 % 05/04/17 18:55 TSH 1.780 mlU/mL (0.270-4.200) 05/04/17 18:39 Urine Color Yellow (Yellow) 05/19/17 18:04 Urine Turbidity Clear (Clear) 05/19/17 18:04 Urine pH 5.0 (5.0-7.0) 05/19/17 18:04 Ur Specific [place] 1.014 (1.003-1.030) 05/19/17 18:04 Urine Protein 30 mg/dl mg/dL (Negative) 05/19/17 18:04 Urine Glucose (UA) Neg mg/dL (Negative) 05/19/17 18:04 Urine Ketones Neg mg/dL (Negative) 05/19/17 18:04 Urine Blood Mod (Negative) 05/19/17 18:04 Urine Nitrite Neg (Negative) 05/19/17 18:04 Urine Bilirubin Neg (Negative) 05/19/17 18:04 Urine Urobilinogen < 2.0 mg/dL (<2.0) 05/19/17 18:04 Ur Leukocyte Esterase Lg (Negative) 05/19/17 18:04 Urine WBC (Auto) 78.0 /HPF (0.0-6.0) H 05/19/17 18:04 Urine RBC (Auto) 90.0 /HPF (0.0-6.0) 05/19/17 18:04 U Epithel Cells (Auto) < 1.0 /HPF (0-13.0) 05/19/17 18:04 Urine Bacteria (Auto) 2+ /HPF (Negative) 05/19/17 18:04 Amorphous Crystals Few 05/11/17 17:50 Hyaline Casts 3 /LPF 05/19/17 18:04 Granular Casts 1 /LPF 05/19/17 18:04 Urine Mucus Few /HPF 05/19/17 18:04 Ur Yeast w Hyphae Few /HPF 05/19/17 18:04 Urine Yeast (Budding) 3+ /HPF 05/19/17 18:04 Urine Creatinine 28.0 mg/dL (0.1-20.0) H 05/05/17 Unknown Urine Sodium 129 mmol/L 05/05/17 Unknown Urine Potassium 3.67 mmol/L 05/05/17 Unknown Urine Chloride 115.6 mmolL (110-250) 05/05/17 Unknown Salicylates 0.3 mg/dL (2.8-20.0) L 05/04/17 18:39 Urine Opiates Screen Presumptive negative 05/04/17 02:20 Urine Methadone Screen Presumptive negative 05/04/17 02:20 Acetaminophen < 15.0 ug/mL (10.0-30.0) 05/04/17 18:39 Ur Barbiturates Screen Presumptive negative 05/04/17 02:20 Ur Phencyclidine Scrn Presumptive negative 05/04/17 02:20 Ur Amphetamines Screen Presumptive negative 05/04/17 02:20 U Benzodiazepines Scrn Presumptive negative 05/04/17 02:20 Urine Cocaine Screen Presumptive negative 05/04/17 02:20 U Marijuana (THC) Screen Presumptive negative 05/04/17 02:20 Drugs of Abuse Note Disclamer 05/04/17 02:20 Plasma/Serum Alcohol < 0.01 gm% (0-0.07) 05/04/17 18:39 Hepatitis A IgM Ab Non-reactive (NonReactive) 05/20/17 17:49 Hep Bs Antigen Non-reactive (Negative) 05/20/17 17:49 Hep B Core IgM Ab Non-reactive (NonReactive) 05/20/17 17:49 Hepatitis C Antibody Non-reactive (NonReactive) 05/20/17 17:49 Miscellaneous Test Flexitest 1 H 05/17/17 12:20 Blood Type AB POSITIVE 05/26/17 10:50 Antibody Screen Negative 05/26/17 10:50 Crossmatch See Detail 05/26/17 10:50
--- NOTE | 2017-05-30 15:36 | Progress Note ---
Assessment and Plan Impression: * Acute kidney injury secondary to ATN * C diff colitis * s/p Colectomy 05/21/17 * s/p Septic shocks * Metabolic acidosis Plan: * s/p HD initiation on 05/18, last treatment on 05/23; no indication for SHIPPING AND RECEIVING ASSOCIATE time * Continue diuresis * Replete lytes prn * Avoid potential nephrotoxins * Dose medications for renal function * Strict I/O Subjective Date of service: 05/30/17 Principal diagnosis: Septic shock,C. diff colitis Interval history: Patient has no complaints. Objective - Vital Signs Vital signs: Vital Signs - 12hr 05/30/17 05/30/17 05/30/17 07:51 08:53 09:04 Temperature 98.0 F Pulse Rate 117 H Pulse Rate [ 104 H 107 H Anterior Bilateral Throughout] Respiratory 18 Rate Respiratory 20 20 Rate [Anterior Bilateral Throughout] Blood Pressure 88/52 O2 Sat by Pulse 96 100 Oximetry 05/30/17 05/30/17 14:03 14:13 Temperature Pulse Rate Pulse Rate [ 109 H 113 H Anterior Bilateral Throughout] Respiratory Rate Respiratory 20 20 Rate [Anterior Bilateral Throughout] Blood Pressure O2 Sat by Pulse Oximetry - General Appearance General appearance: well-developed, well-nourished EENT: ATNC Respiratory: Present: Clear to Ascultation Cardiology: regular, S1S2 Integumentary: no rash, warm and dry Neurologic: no focal deficit Musculoskeletal: other (no edema) Psychiatric: cooperative - Lab 05/28/17 04:00 05/30/17 05:24 Most recent lab results Calcium 8.2 mg/dL (8.4-10.2) L 05/30/17 05:24 Phosphorus 4.40 mg/dL (2.5-4.5) 05/29/17 06:40 Magnesium 1.70 mg/dL (1.7-2.3) 05/29/17 06:40 Urine Creatinine 28.0 mg/dL (0.1-20.0) H 05/05/17 Unknown Urine Sodium 129 mmol/L 05/05/17 Unknown
[2017-05-31] MEDS: NOVOLOG SUB-Q SCH ×5 (00:18→20:03)
[2017-05-31] MEDS: ALBURX 25% (ALBUMIN) IV SCH ×2 (00:32→11:20)
[2017-05-31] MEDS ORDERED: CATHFLO IV ONE (00:49)
[2017-05-31] MEDS ORDERED: WATER FOR INJ (PF) 10 ML ONE (01:24)
[2017-05-31] MEDS: LASIX IV SCH (07:29)
--- NOTE | 2017-05-31 07:43 | Progress Note ---
Assessment and Plan Assessment and plan: C. difficile colitis - Patient was treated with flagyl and off flagyl now Sepsis - Patient is off pressors, was treated with meropenem Status post partial colectomy - Surgical wound is stable - Patient tolerated liquid diet and will advance her diet - Surgery is following Acute on chronic renal failure, hyperkalemia - Patient renal function is back to baseline - BMP from this morning is pending - Nephrology following COPD exacerbation, acute on chronic respiratory - patient is currently stable Anemia - Stable DVT prophylaxis Disposition - Patient need rehabilitation placement History Interval history: Patient was seen and evaluated this morning, patient didn't have any complaints. Hospitalist Physical - Physical exam Narrative exam: Not in cardiopulmonary distress. On intranasal oxygen The patient appeared well nourished and normally developed. Vital signs as documented. Head exam is unremarkable. No scleral icterus . Neck is without jugular venous distension, thyromegaly, or carotid bruits. Lungs are clear to auscultation. Cardiac exam reveals regular rate and Rhythm. First and second heart sounds normal. No murmurs, rubs or gallops. Abdominal ostomy is clean. Extremities are nonedematous and both femoral and pedal pulses are normal. COMPILATION CLERK: Alert and oriented 3. No focal weakness. - Constitutional Vitals: Temp Pulse Resp BP Pulse Ox 98.5 F 95 H 18 104/56 97 05/30/17 21:51 05/30/17 21:51 05/30/17 21:51 05/30/17 21:51 05/30/17 21:51 General appearance: Present: no acute distress, mild distress, well-nourished, other (intubatd and vent supported) Results - Labs CBC & Chem 7: 05/28/17 04:00 05/30/17 05:24 Labs: Laboratory Last Values WBC 17.4 K/mm3 (4.5-11.0) H 05/28/17 04:00 RBC 3.08 M/mm3 (3.65-5.03) L 05/28/17 04:00 Hgb 9.0 gm/dl (10.1-14.3) L 05/28/17 04:00 Hct 27.2 % (30.3-42.9) L 05/28/17 04:00 MCV 88 fl (79-97) 05/28/17 04:00 MCH 29 pg (28-32) 05/28/17 04:00 MCHC 33 % (30-34) 05/28/17 04:00 RDW 17.6 % (13.2-15.2) H 05/28/17 04:00 Plt Count 196 K/mm3 (140-440) 05/28/17 04:00 [place] % (Auto) % (0.0-7.3) 05/22/17 04:50 Eos % (Auto) % (0.0-4.3) 05/22/17 04:50 [place] # K/mm3 (0.0-0.8) 05/22/17 04:50 Eos # K/mm3 (0.0-0.4) 05/22/17 04:50 Baso # 0.0 K/mm3 (0.0-0.1) 05/22/17 04:50 Add Manual Diff Complete 05/28/17 04:00 Total Counted 100 05/28/17 04:00 Seg Neutrophils % Wireless Technician 05/24/17 07:16 Seg Neuts % (Manual) 75.0 % (40.0-70.0) H 05/28/17 04:00 Band Neutrophils % 7.0 % 05/28/17 04:00 Lymphocytes % (Manual) 5.0 % (13.4-35.0) L 05/28/17 04:00 Reactive Lymphs % (Man) 0 % 05/28/17 04:00 Monocytes % (Manual) 10.0 % (0.0-7.3) H 05/28/17 04:00 Eosinophils % (Manual) 3.0 % (0.0-4.3) 05/28/17 04:00 Basophils % (Manual) 0 % (0.0-1.8) 05/28/17 04:00 Metamyelocytes % 0 % 05/28/17 04:00 Myelocytes % 0 % 05/28/17 04:00 Promyelocytes % 0 % 05/28/17 04:00 Blast Cells % 0 % 05/28/17 04:00 Nucleated RBC % 2.0 % (0.0-0.9) H 05/28/17 04:00 Seg Neutrophils # K/mm3 (1.8-7.7) 05/22/17 04:50 Seg Neutrophils # Man 13.1 K/mm3 (1.8-7.7) H 05/28/17 04:00 Band Neutrophils # 1.2 K/mm3 05/28/17 04:00 Lymphocytes # (Manual) 0.9 K/mm3 (1.2-5.4) L 05/28/17 04:00 Abs React Lymphs (Man) 0.0 K/mm3 05/28/17 04:00 Monocytes # (Manual) 1.7 K/mm3 (0.0-0.8) H 05/28/17 04:00 Eosinophils # (Manual) 0.5 K/mm3 (0.0-0.4) H 05/28/17 04:00 Basophils # (Manual) 0.0 K/mm3 (0.0-0.1) 05/28/17 04:00 Metamyelocytes # 0.0 K/mm3 05/28/17 04:00 Myelocytes # 0.0 K/mm3 05/28/17 04:00 Promyelocytes # 0.0 K/mm3 05/28/17 04:00 Blast Cells # 0.0 K/mm3 05/28/17 04:00 WBC Morphology Not Reportable 05/28/17 04:00 Hypersegmented Neuts Not Reportable 05/28/17 04:00 Hyposegmented Neuts Not Reportable 05/28/17 04:00 Hypogranular Neuts Not Reportable 05/28/17 04:00 Smudge Cells Not Reportable 05/28/17 04:00 Toxic Granulation Not Reportable 05/28/17 04:00 Toxic Vacuolation Not Reportable 05/28/17 04:00 Dohle Bodies Not Reportable 05/28/17 04:00 Pelger-Huet Anomaly Not Reportable 05/28/17 04:00 Neisha Rods Not Reportable 05/28/17 04:00 Platelet Estimate Consistent w auto 05/28/17 04:00 Clumped Platelets Not Reportable 05/28/17 04:00 Plt Clumps, EDTA Not Reportable 05/28/17 04:00 Large Platelets Not Reportable 05/28/17 04:00 Giant Platelets Not Reportable 05/28/17 04:00 Platelet Satelliting Not Reportable 05/28/17 04:00 Plt Morphology Comment Not Reportable 05/28/17 04:00 RBC Morphology Not Reportable 05/28/17 04:00 Dimorphic RBCs Not Reportable 05/28/17 04:00 Polychromasia 1+ 05/28/17 04:00 Hypochromasia Not Reportable 05/28/17 04:00 Poikilocytosis Not Reportable 05/28/17 04:00 Anisocytosis 1+ 05/28/17 04:00 Microcytosis Not Reportable 05/28/17 04:00 Macrocytosis 1+ 05/28/17 04:00 Spherocytes Not Reportable 05/28/17 04:00 Pappenheimer Bodies Not Reportable 05/28/17 04:00 Sickle Cells Not Reportable 05/28/17 04:00 Target Cells Few 05/28/17 04:00 Tear Drop Cells Not Reportable 05/28/17 04:00 Ovalocytes Not Reportable 05/28/17 04:00 Stomatocytes Few 05/21/17 05:20 Helmet Cells Not Reportable 05/28/17 04:00 [place] Bodies Not Reportable 05/28/17 04:00 [place] Rings Not Reportable 05/28/17 04:00 Damián Cells Not Reportable 05/28/17 04:00 Bite Cells Not Reportable 05/28/17 04:00 Crenated Cell Not Reportable 05/28/17 04:00 Elliptocytes Not Reportable 05/28/17 04:00 Acanthocytes (Spur) Not Reportable 05/28/17 04:00 Rouleaux Not Reportable 05/28/17 04:00 Hemoglobin C Crystals Not Reportable 05/28/17 04:00 Schistocytes Not Reportable 05/28/17 04:00 Malaria parasites Not Reportable 05/28/17 04:00 Herve Bodies Not Reportable 05/28/17 04:00 Hem Pathologist Commnt No 05/28/17 04:00 PT 21.3 Sec. (12.2-14.9) H 05/22/17 04:50 INR 1.75 (0.87-1.13) H 05/22/17 04:50 APTT 39.4 Sec. (24.2-36.6) H 05/22/17 04:50 D-Dimer 8441.57 ng/mlDDU (0-234) H 05/04/17 Unknown POC ABG pH 7.424 (7.35-7.45) 05/26/17 09:49 POC ABG pCO2 44.1 (35-45) 05/26/17 09:49 POC ABG pO2 89 (80-105) 05/26/17 09:49 POC ABG HCO3 28.9 05/26/17 09:49 POC ABG Total CO2 30 05/26/17 09:49 POC ABG O2 Sat 97 05/26/17 09:49 POC ABG Base Excess 4 05/26/17 09:49 FiO2 25 % 05/26/17 09:49 Sodium 141 mmol/L (137-145) 05/30/17 05:24 Potassium 5.6 mmol/L (3.6-5.0) H 05/30/17 05:24 Chloride 100.4 mmol/L (98-107) 05/30/17 05:24 Carbon Dioxide 26 mmol/L (22-30) 05/30/17 05:24 Anion Gap 20 mmol/L 05/30/17 05:24 BUN 52 mg/dL (7-17) H 05/30/17 05:24 Creatinine 1.1 mg/dL (0.7-1.2) 05/30/17 05:24 Estimated GFR > 60 ml/min 05/30/17 05:24 BUN/Creatinine Ratio 47 % 05/30/17 05:24 Glucose 56 mg/dL (65-100) L 05/30/17 05:24 POC Glucose 83 (70-105) 05/31/17 06:31 Lactic Acid 0.60 mmol/L (0.7-2.0) L 05/16/17 00:15 Calcium 8.2 mg/dL (8.4-10.2) L 05/30/17 05:24 Ionized Calcium 3.5 mg/dL (4.8-5.6) L 05/05/17 17:45 Phosphorus 4.40 mg/dL (2.5-4.5) 05/29/17 06:40 Magnesium 1.70 mg/dL (1.7-2.3) 05/29/17 06:40 Total Bilirubin 0.30 mg/dL (0.1-1.2) 05/26/17 07:15 AST 9 units/L (5-40) 05/26/17 07:15 ALT < 5 units/L (7-56) L 05/26/17 07:15 Alkaline Phosphatase 41 units/L (35-129) 05/26/17 07:15 Total Creatine Kinase 346 units/L (30-135) H 05/05/17 05:20 CK-MB (CK-2) 8.2 ng/mL (0.0-4.0) H 05/05/17 05:20 CK-MB (CK-2) Rel Index 2.3 (0-4) 05/05/17 05:20 Troponin T 0.027 ng/mL (0.00-0.029) 05/05/17 05:20 C-Reactive Protein 7.10 mg/dL (0.00-1.30) H 05/23/17 16:55 Total Protein 4.0 g/dL (6.3-8.2) L 05/26/17 07:15 Albumin 2.3 g/dL (3.9-5) L 05/26/17 07:15 Albumin/Globulin Ratio 1.4 % 05/26/17 07:15 Triglycerides 149 mg/dL (2-149) 05/04/17 18:55 Cholesterol 185 mg/dL (50-199) 05/04/17 18:55 LDL Cholesterol Direct 103 mg/dL (50-130) 05/04/17 18:55 HDL Cholesterol 53 mg/dL (40-59) 05/04/17 18:55 Cholesterol/HDL Ratio 3.49 % 05/04/17 18:55 TSH 1.780 mlU/mL (0.270-4.200) 05/04/17 18:39 Urine Color Yellow (Yellow) 05/19/17 18:04 Urine Turbidity Clear (Clear) 05/19/17 18:04 Urine pH 5.0 (5.0-7.0) 05/19/17 18:04 Ur Specific [place] 1.014 (1.003-1.030) 05/19/17 18:04 Urine Protein 30 mg/dl mg/dL (Negative) 05/19/17 18:04 Urine Glucose (UA) Neg mg/dL (Negative) 05/19/17 18:04 Urine Ketones Neg mg/dL (Negative) 05/19/17 18:04 Urine Blood Mod (Negative) 05/19/17 18:04 Urine Nitrite Neg (Negative) 05/19/17 18:04 Urine Bilirubin Neg (Negative) 05/19/17 18:04 Urine Urobilinogen < 2.0 mg/dL (<2.0) 05/19/17 18:04 Ur Leukocyte Esterase Lg (Negative) 05/19/17 18:04 Urine WBC (Auto) 78.0 /HPF (0.0-6.0) H 05/19/17 18:04 Urine RBC (Auto) 90.0 /HPF (0.0-6.0) 05/19/17 18:04 U Epithel Cells (Auto) < 1.0 /HPF (0-13.0) 05/19/17 18:04 Urine Bacteria (Auto) 2+ /HPF (Negative) 05/19/17 18:04 Amorphous Crystals Few 05/11/17 17:50 Hyaline Casts 3 /LPF 05/19/17 18:04 Granular Casts 1 /LPF 05/19/17 18:04 Urine Mucus Few /HPF 05/19/17 18:04 Ur Yeast w Hyphae Few /HPF 05/19/17 18:04 Urine Yeast (Budding) 3+ /HPF 05/19/17 18:04 Urine Creatinine 28.0 mg/dL (0.1-20.0) H 05/05/17 Unknown Urine Sodium 129 mmol/L 05/05/17 Unknown Urine Potassium 3.67 mmol/L 05/05/17 Unknown Urine Chloride 115.6 mmolL (110-250) 05/05/17 Unknown Salicylates 0.3 mg/dL (2.8-20.0) L 05/04/17 18:39 Urine Opiates Screen Presumptive negative 05/04/17 02:20 Urine Methadone Screen Presumptive negative 05/04/17 02:20 Acetaminophen < 15.0 ug/mL (10.0-30.0) 05/04/17 18:39 Ur Barbiturates Screen Presumptive negative 05/04/17 02:20 Ur Phencyclidine Scrn Presumptive negative 05/04/17 02:20 Ur Amphetamines Screen Presumptive negative 05/04/17 02:20 U Benzodiazepines Scrn Presumptive negative 05/04/17 02:20 Urine Cocaine Screen Presumptive negative 05/04/17 02:20 U Marijuana (THC) Screen Presumptive negative 05/04/17 02:20 Drugs of Abuse Note Disclamer 05/04/17 02:20 Plasma/Serum Alcohol < 0.01 gm% (0-0.07) 05/04/17 18:39 Hepatitis A IgM Ab Non-reactive (NonReactive) 05/20/17 17:49 Hep Bs Antigen Non-reactive (Negative) 05/20/17 17:49 Hep B Core IgM Ab Non-reactive (NonReactive) 05/20/17 17:49 Hepatitis C Antibody Non-reactive (NonReactive) 05/20/17 17:49 Miscellaneous Test Flexitest 1 H 05/17/17 12:20 Blood Type AB POSITIVE 05/26/17 10:50 Antibody Screen Negative 05/26/17 10:50 Crossmatch See Detail 05/26/17 10:50
[2017-05-31 08:02] LABS: Anion Gap 16 mmol/L; BUN/Creatinine Ratio 47; Blood Urea Nitrogen 42 mg/dL (7-17); Calcium 8.2 mg/dL (8.4-10.2); Carbon Dioxide 30 mmol/L (22-30); Chloride 102.4 mmol/L (98-107); Glucose 81 mg/dL (65-100); Potassium 4.7 mmol/L (3.6-5.0); Sodium 144 mmol/L (137-145)
[2017-05-31] MEDS: BROVANA NEBU IH SCH ×2 (08:09→20:32)
[2017-05-31] MEDS: PULMICORT IH SCH ×2 (08:09→20:32)
[2017-05-31] MEDS: DUONEB *Not for PRN Use IH SCH ×3 (08:20→20:32)
--- NOTE | 2017-05-31 08:34 | Progress Note ---
Assessment and Plan POD # 10 Pt has no compl. keara diet Abd soft. ileostomy bag still seeping. needs better seal d/c causey as per renal surgically stable continue present care Selected Entries 05/30/17 05/30/17 05/30/17 07:51 09:04 21:51 Temperature 98.0 F 98.5 F Pulse Rate [ 107 H Anterior Bilateral Throughout] Respiratory 18 Rate Blood Pressure 88/52 104/56 Laboratory Tests 05/30/17 05/31/17 05:24 07:15 Sodium 141 144 Potassium 5.6 H 4.7 Chloride 100.4 102.4 Carbon Dioxide 26 30 Anion Gap 20 BUN 52 H 42 H Creatinine 1.1 0.9 Glucose 56 L Objective Vital Signs - 12hr 05/30/17 21:51 Temperature 98.5 F Pulse Rate 95 H Respiratory 18 Rate Blood Pressure 104/56 O2 Sat by Pulse 97 Oximetry - Labs 05/28/17 04:00 05/31/17 07:15 Diabetes panel 05/31/17 Range/Units 07:15 Sodium 144 (137-145) mmol/L Potassium 4.7 (3.6-5.0) mmol/L Chloride 102.4 (98-107) mmol/L Carbon Dioxide 30 (22-30) mmol/L BUN 42 H (7-17) mg/dL Creatinine 0.9 (0.7-1.2) mg/dL Glucose 81 (65-100) mg/dL Calcium 8.2 L (8.4-10.2) mg/dL Calcium panel 05/31/17 Range/Units 07:15 Calcium 8.2 L (8.4-10.2) mg/dL Pituitary panel 05/31/17 Range/Units 07:15 Sodium 144 (137-145) mmol/L Potassium 4.7 (3.6-5.0) mmol/L Chloride 102.4 (98-107) mmol/L Carbon Dioxide 30 (22-30) mmol/L BUN 42 H (7-17) mg/dL Creatinine 0.9 (0.7-1.2) mg/dL Glucose 81 (65-100) mg/dL Calcium 8.2 L (8.4-10.2) mg/dL Adrenal panel 05/31/17 Range/Units 07:15 Sodium 144 (137-145) mmol/L Potassium 4.7 (3.6-5.0) mmol/L Chloride 102.4 (98-107) mmol/L Carbon Dioxide 30 (22-30) mmol/L BUN 42 H (7-17) mg/dL Creatinine 0.9 (0.7-1.2) mg/dL Glucose 81 (65-100) mg/dL Calcium 8.2 L (8.4-10.2) mg/dL
[2017-05-31] MEDS: PEPCID IV SCH (11:20)
--- NOTE | 2017-05-31 12:12 | Progress Note ---
Assessment and Plan Assessment and plan: C. difficile colitis - Patient was treated with flagyl and off flagyl now Sepsis - Patient is off pressors, was treated with meropenem Status post partial colectomy - Surgical wound is stable - Patient tolerated liquid diet and will advance her diet - Surgery is following Acute on chronic renal failure, hyperkalemia - Patient renal function is back to baseline - BMP from this morning is pending - Nephrology following COPD exacerbation, acute on chronic respiratory - patient is currently stable Anemia - Stable DVT prophylaxis Disposition - Patient need rehabilitation placement History Interval history: Patient was seen and evaluated this morning, patient didn't have any complaints. She tolerated her diet. Hospitalist Physical - Physical exam Narrative exam: Not in cardiopulmonary distress. On intranasal oxygen The patient appeared well nourished and normally developed. Vital signs as documented. Head exam is unremarkable. No scleral icterus . Neck is without jugular venous distension, thyromegaly, or carotid bruits. Lungs are clear to auscultation. Cardiac exam reveals regular rate and Rhythm. First and second heart sounds normal. No murmurs, rubs or gallops. Abdominal is draining. Extremities are nonedematous and both femoral and pedal pulses are normal. PROOF SORTER: Alert and oriented 3. No focal weakness. - Constitutional Vitals: Temp Pulse Resp BP Pulse Ox 97.8 F 115 H 20 104/51 100 05/31/17 07:49 05/31/17 08:20 05/31/17 08:20 05/31/17 07:49 05/31/17 08:09 General appearance: Present: no acute distress, mild distress, well-nourished, other (intubatd and vent supported) Results - Labs CBC & Chem 7: 05/28/17 04:00 05/31/17 07:15 Labs: Laboratory Last Values WBC 17.4 K/mm3 (4.5-11.0) H 05/28/17 04:00 RBC 3.08 M/mm3 (3.65-5.03) L 05/28/17 04:00 Hgb 9.0 gm/dl (10.1-14.3) L 05/28/17 04:00 Hct 27.2 % (30.3-42.9) L 05/28/17 04:00 MCV 88 fl (79-97) 05/28/17 04:00 MCH 29 pg (28-32) 05/28/17 04:00 MCHC 33 % (30-34) 05/28/17 04:00 RDW 17.6 % (13.2-15.2) H 05/28/17 04:00 Plt Count 196 K/mm3 (140-440) 05/28/17 04:00 Cloud % (Auto) % (0.0-7.3) 05/22/17 04:50 Eos % (Auto) % (0.0-4.3) 05/22/17 04:50 Cloud # K/mm3 (0.0-0.8) 05/22/17 04:50 Eos # K/mm3 (0.0-0.4) 05/22/17 04:50 Baso # 0.0 K/mm3 (0.0-0.1) 05/22/17 04:50 Add Manual Diff Complete 05/28/17 04:00 Total Counted 100 05/28/17 04:00 Seg Neutrophils % Cyber Engineer 05/24/17 07:16 Seg Neuts % (Manual) 75.0 % (40.0-70.0) H 05/28/17 04:00 Band Neutrophils % 7.0 % 05/28/17 04:00 Lymphocytes % (Manual) 5.0 % (13.4-35.0) L 05/28/17 04:00 Reactive Lymphs % (Man) 0 % 05/28/17 04:00 Monocytes % (Manual) 10.0 % (0.0-7.3) H 05/28/17 04:00 Eosinophils % (Manual) 3.0 % (0.0-4.3) 05/28/17 04:00 Basophils % (Manual) 0 % (0.0-1.8) 05/28/17 04:00 Metamyelocytes % 0 % 05/28/17 04:00 Myelocytes % 0 % 05/28/17 04:00 Promyelocytes % 0 % 05/28/17 04:00 Blast Cells % 0 % 05/28/17 04:00 Nucleated RBC % 2.0 % (0.0-0.9) H 05/28/17 04:00 Seg Neutrophils # K/mm3 (1.8-7.7) 05/22/17 04:50 Seg Neutrophils # Man 13.1 K/mm3 (1.8-7.7) H 05/28/17 04:00 Band Neutrophils # 1.2 K/mm3 05/28/17 04:00 Lymphocytes # (Manual) 0.9 K/mm3 (1.2-5.4) L 05/28/17 04:00 Abs React Lymphs (Man) 0.0 K/mm3 05/28/17 04:00 Monocytes # (Manual) 1.7 K/mm3 (0.0-0.8) H 05/28/17 04:00 Eosinophils # (Manual) 0.5 K/mm3 (0.0-0.4) H 05/28/17 04:00 Basophils # (Manual) 0.0 K/mm3 (0.0-0.1) 05/28/17 04:00 Metamyelocytes # 0.0 K/mm3 05/28/17 04:00 Myelocytes # 0.0 K/mm3 05/28/17 04:00 Promyelocytes # 0.0 K/mm3 05/28/17 04:00 Blast Cells # 0.0 K/mm3 05/28/17 04:00 WBC Morphology Not Reportable 05/28/17 04:00 Hypersegmented Neuts Not Reportable 05/28/17 04:00 Hyposegmented Neuts Not Reportable 05/28/17 04:00 Hypogranular Neuts Not Reportable 05/28/17 04:00 Smudge Cells Not Reportable 05/28/17 04:00 Toxic Granulation Not Reportable 05/28/17 04:00 Toxic Vacuolation Not Reportable 05/28/17 04:00 Dohle Bodies Not Reportable 05/28/17 04:00 Pelger-Huet Anomaly Not Reportable 05/28/17 04:00 Neisha Rods Not Reportable 05/28/17 04:00 Platelet Estimate Consistent w auto 05/28/17 04:00 Clumped Platelets Not Reportable 05/28/17 04:00 Plt Clumps, EDTA Not Reportable 05/28/17 04:00 Large Platelets Not Reportable 05/28/17 04:00 Giant Platelets Not Reportable 05/28/17 04:00 Platelet Satelliting Not Reportable 05/28/17 04:00 Plt Morphology Comment Not Reportable 05/28/17 04:00 RBC Morphology Not Reportable 05/28/17 04:00 Dimorphic RBCs Not Reportable 05/28/17 04:00 Polychromasia 1+ 05/28/17 04:00 Hypochromasia Not Reportable 05/28/17 04:00 Poikilocytosis Not Reportable 05/28/17 04:00 Anisocytosis 1+ 05/28/17 04:00 Microcytosis Not Reportable 05/28/17 04:00 Macrocytosis 1+ 05/28/17 04:00 Spherocytes Not Reportable 05/28/17 04:00 Pappenheimer Bodies Not Reportable 05/28/17 04:00 Sickle Cells Not Reportable 05/28/17 04:00 Target Cells Few 05/28/17 04:00 Tear Drop Cells Not Reportable 05/28/17 04:00 Ovalocytes Not Reportable 05/28/17 04:00 Stomatocytes Few 05/21/17 05:20 Helmet Cells Not Reportable 05/28/17 04:00 [place] Bodies Not Reportable 05/28/17 04:00 [place] Rings Not Reportable 05/28/17 04:00 [place] Cells Not Reportable 05/28/17 04:00 Bite Cells Not Reportable 05/28/17 04:00 Crenated Cell Not Reportable 05/28/17 04:00 Elliptocytes Not Reportable 05/28/17 04:00 Acanthocytes (Spur) Not Reportable 05/28/17 04:00 Rouleaux Not Reportable 05/28/17 04:00 Hemoglobin C Crystals Not Reportable 05/28/17 04:00 Schistocytes Not Reportable 05/28/17 04:00 Malaria parasites Not Reportable 05/28/17 04:00 Herve Bodies Not Reportable 05/28/17 04:00 Hem Pathologist Commnt No 05/28/17 04:00 PT 21.3 Sec. (12.2-14.9) H 05/22/17 04:50 INR 1.75 (0.87-1.13) H 05/22/17 04:50 APTT 39.4 Sec. (24.2-36.6) H 05/22/17 04:50 D-Dimer 8441.57 ng/mlDDU (0-234) H 05/04/17 Unknown POC ABG pH 7.424 (7.35-7.45) 05/26/17 09:49 POC ABG pCO2 44.1 (35-45) 05/26/17 09:49 POC ABG pO2 89 (80-105) 05/26/17 09:49 POC ABG HCO3 28.9 05/26/17 09:49 POC ABG Total CO2 30 05/26/17 09:49 POC ABG O2 Sat 97 05/26/17 09:49 POC ABG Base Excess 4 05/26/17 09:49 FiO2 25 % 05/26/17 09:49 Sodium 144 mmol/L (137-145) 05/31/17 07:15 Potassium 4.7 mmol/L (3.6-5.0) 05/31/17 07:15 Chloride 102.4 mmol/L (98-107) 05/31/17 07:15 Carbon Dioxide 30 mmol/L (22-30) 05/31/17 07:15 Anion Gap 16 mmol/L 05/31/17 07:15 BUN 42 mg/dL (7-17) H 05/31/17 07:15 Creatinine 0.9 mg/dL (0.7-1.2) 05/31/17 07:15 Estimated GFR > 60 ml/min 05/31/17 07:15 BUN/Creatinine Ratio 47 % 05/31/17 07:15 Glucose 81 mg/dL (65-100) 05/31/17 07:15 POC Glucose 83 (70-105) 05/31/17 06:31 Lactic Acid 0.60 mmol/L (0.7-2.0) L 05/16/17 00:15 Calcium 8.2 mg/dL (8.4-10.2) L 05/31/17 07:15 Ionized Calcium 3.5 mg/dL (4.8-5.6) L 05/05/17 17:45 Phosphorus 4.40 mg/dL (2.5-4.5) 05/29/17 06:40 Magnesium 1.70 mg/dL (1.7-2.3) 05/29/17 06:40 Total Bilirubin 0.30 mg/dL (0.1-1.2) 05/26/17 07:15 AST 9 units/L (5-40) 05/26/17 07:15 ALT < 5 units/L (7-56) L 05/26/17 07:15 Alkaline Phosphatase 41 units/L (35-129) 05/26/17 07:15 Total Creatine Kinase 346 units/L (30-135) H 05/05/17 05:20 CK-MB (CK-2) 8.2 ng/mL (0.0-4.0) H 05/05/17 05:20 CK-MB (CK-2) Rel Index 2.3 (0-4) 05/05/17 05:20 Troponin T 0.027 ng/mL (0.00-0.029) 05/05/17 05:20 C-Reactive Protein 7.10 mg/dL (0.00-1.30) H 05/23/17 16:55 Total Protein 4.0 g/dL (6.3-8.2) L 05/26/17 07:15 Albumin 2.3 g/dL (3.9-5) L 05/26/17 07:15 Albumin/Globulin Ratio 1.4 % 05/26/17 07:15 Triglycerides 149 mg/dL (2-149) 05/04/17 18:55 Cholesterol 185 mg/dL (50-199) 05/04/17 18:55 LDL Cholesterol Direct 103 mg/dL (50-130) 05/04/17 18:55 HDL Cholesterol 53 mg/dL (40-59) 05/04/17 18:55 Cholesterol/HDL Ratio 3.49 % 05/04/17 18:55 TSH 1.780 mlU/mL (0.270-4.200) 05/04/17 18:39 Urine Color Yellow (Yellow) 05/19/17 18:04 Urine Turbidity Clear (Clear) 05/19/17 18:04 Urine pH 5.0 (5.0-7.0) 05/19/17 18:04 Ur Specific [place] 1.014 (1.003-1.030) 05/19/17 18:04 Urine Protein 30 mg/dl mg/dL (Negative) 05/19/17 18:04 Urine Glucose (UA) Neg mg/dL (Negative) 05/19/17 18:04 Urine Ketones Neg mg/dL (Negative) 05/19/17 18:04 Urine Blood Mod (Negative) 05/19/17 18:04 Urine Nitrite Neg (Negative) 05/19/17 18:04 Urine Bilirubin Neg (Negative) 05/19/17 18:04 Urine Urobilinogen < 2.0 mg/dL (<2.0) 05/19/17 18:04 Ur Leukocyte Esterase Lg (Negative) 05/19/17 18:04 Urine WBC (Auto) 78.0 /HPF (0.0-6.0) H 05/19/17 18:04 Urine RBC (Auto) 90.0 /HPF (0.0-6.0) 05/19/17 18:04 U Epithel Cells (Auto) < 1.0 /HPF (0-13.0) 05/19/17 18:04 Urine Bacteria (Auto) 2+ /HPF (Negative) 05/19/17 18:04 Amorphous Crystals Few 05/11/17 17:50 Hyaline Casts 3 /LPF 05/19/17 18:04 Granular Casts 1 /LPF 05/19/17 18:04 Urine Mucus Few /HPF 05/19/17 18:04 Ur Yeast w Hyphae Few /HPF 05/19/17 18:04 Urine Yeast (Budding) 3+ /HPF 05/19/17 18:04 Urine Creatinine 28.0 mg/dL (0.1-20.0) H 05/05/17 Unknown Urine Sodium 129 mmol/L 05/05/17 Unknown Urine Potassium 3.67 mmol/L 05/05/17 Unknown Urine Chloride 115.6 mmolL (110-250) 05/05/17 Unknown Salicylates 0.3 mg/dL (2.8-20.0) L 05/04/17 18:39 Urine Opiates Screen Presumptive negative 05/04/17 02:20 Urine Methadone Screen Presumptive negative 05/04/17 02:20 Acetaminophen < 15.0 ug/mL (10.0-30.0) 05/04/17 18:39 Ur Barbiturates Screen Presumptive negative 05/04/17 02:20 Ur Phencyclidine Scrn Presumptive negative 05/04/17 02:20 Ur Amphetamines Screen Presumptive negative 05/04/17 02:20 U Benzodiazepines Scrn Presumptive negative 05/04/17 02:20 Urine Cocaine Screen Presumptive negative 05/04/17 02:20 U Marijuana (THC) Screen Presumptive negative 05/04/17 02:20 Drugs of Abuse Note Disclamer 05/04/17 02:20 Plasma/Serum Alcohol < 0.01 gm% (0-0.07) 05/04/17 18:39 Hepatitis A IgM Ab Non-reactive (NonReactive) 05/20/17 17:49 Hep Bs Antigen Non-reactive (Negative) 05/20/17 17:49 Hep B Core IgM Ab Non-reactive (NonReactive) 05/20/17 17:49 Hepatitis C Antibody Non-reactive (NonReactive) 05/20/17 17:49 Miscellaneous Test Flexitest 1 H 05/17/17 12:20 Blood Type AB POSITIVE 05/26/17 10:50 Antibody Screen Negative 05/26/17 10:50 Crossmatch See Detail 05/26/17 10:50
--- NOTE | 2017-05-31 16:17 | Progress Note ---
Assessment and Plan 61 y/o female with severe C. Diff colitis, sepsis with shock and now encephalopathy, likely metabolic requiring mechanical ventilation. 1. Wean FiO2 as tolerated, sats >88% are acceptable 2. PT/OT Will see as needed and likely sign off soon Subjective Date of service: 05/31/17 Principal diagnosis: Septic shock,C. diff colitis Interval history: No acute events. Diet being tolerated. Sats good on 2 liters. Objective Vital Signs - 12hr 05/31/17 05/31/17 05/31/17 07:49 08:09 08:20 Temperature 97.8 F Pulse Rate 82 Pulse Rate [ 110 H 115 H Anterior Bilateral Throughout] Respiratory 18 Rate Respiratory 20 20 Rate [Anterior Bilateral Throughout] Blood Pressure 104/51 O2 Sat by Pulse 98 100 Oximetry 05/31/17 05/31/17 13:45 13:55 Temperature Pulse Rate Pulse Rate [ 114 H 120 H Anterior Bilateral Throughout] Respiratory Rate Respiratory 20 20 Rate [Anterior Bilateral Throughout] Blood Pressure O2 Sat by Pulse Oximetry Constitutional: no acute distress, alert Eyes: non-icteric ENT: oropharynx moist Neck: supple Effort: normal Ascultation: Bilateral: clear (anterior), diminished breath sounds Percussion: Bilateral: not dull Cardiovascular: regular rate and rhythm (no mrg) Gastrointestinal: hypoactive bowel sounds, tender, other (distended, ostomy looks good with some liquid stool in bag, brown + old blood) Integumentary: normal Extremities: no cyanosis, pink and warm, anasarca (1+ bilateral LE edema) Neurologic: normal mental status, non-focal exam, pupils equal and round, CN II- XII normal Psychiatric: mood appropriate, affect normal CBC and BMP: 05/28/17 04:00 05/31/17 07:15 ABG, PT/INR, D-dimer: ABG POC ABG pH 7.424 (7.35-7.45) 05/26/17 09:49 POC ABG pCO2 44.1 (35-45) 05/26/17 09:49 POC ABG pO2 89 (80-105) 05/26/17 09:49 POC ABG HCO3 28.9 05/26/17 09:49 POC ABG Total CO2 30 05/26/17 09:49 POC ABG O2 Sat 97 05/26/17 09:49 PT/INR, D-dimer PT 21.3 Sec. (12.2-14.9) H 05/22/17 04:50 INR 1.75 (0.87-1.13) H 05/22/17 04:50 D-Dimer 8441.57 ng/mlDDU (0-234) H 05/04/17 Unknown Abnormal lab findings: Abnormal Labs 05/04/17 05/04/17 05/04/17 02:20 18:39 18:39 WBC 24.3 H RBC Hgb Hct RDW 16.4 H Plt Count 658 H Seg Neuts % (Manual) 94.5 H Lymphocytes % (Manual) 2.5 L Monocytes % (Manual) Nucleated RBC % Seg Neutrophils # Man 23.0 H Lymphocytes # (Manual) 0.6 L Monocytes # (Manual) Eosinophils # (Manual) PT INR APTT D-Dimer POC ABG pH POC ABG pCO2 POC ABG pO2 Sodium Potassium 3.2 L Chloride 92.6 L Carbon Dioxide 14 L BUN 66 H Creatinine 6.5 H Glucose POC Glucose Lactic Acid Calcium 7.5 L Ionized Calcium Phosphorus Magnesium ALT 5 L Alkaline Phosphatase 32 L Total Creatine Kinase CK-MB (CK-2) Troponin T C-Reactive Protein Total Protein 5.4 L Albumin 3.0 L Urine WBC (Auto) 100.0 H Urine Creatinine Salicylates Miscellaneous Test Crossmatch 05/04/17 05/04/17 05/04/17 18:39 18:55 Unknown WBC RBC Hgb Hct RDW Plt Count Seg Neuts % (Manual) Lymphocytes % (Manual) Monocytes % (Manual) Nucleated RBC % Seg Neutrophils # Man Lymphocytes # (Manual) Monocytes # (Manual) Eosinophils # (Manual) PT INR APTT D-Dimer POC ABG pH POC ABG pCO2 POC ABG pO2 Sodium Potassium Chloride Carbon Dioxide BUN Creatinine Glucose POC Glucose Lactic Acid 0.40 L Calcium Ionized Calcium Phosphorus Magnesium ALT Alkaline Phosphatase Total Creatine Kinase 155 H CK-MB (CK-2) 4.5 H Troponin T 0.033 H C-Reactive Protein Total Protein Albumin Urine WBC (Auto) Urine Creatinine Salicylates 0.3 L Miscellaneous Test Crossmatch 05/04/17 05/04/17 05/04/17 Unknown Unknown Unknown WBC RBC Hgb Hct RDW Plt Count Seg Neuts % (Manual) Lymphocytes % (Manual) Monocytes % (Manual) Nucleated RBC % Seg Neutrophils # Man Lymphocytes # (Manual) Monocytes # (Manual) Eosinophils # (Manual) PT INR APTT D-Dimer 8441.57 H POC ABG pH POC ABG pCO2 POC ABG pO2 Sodium Potassium Chloride Carbon Dioxide BUN Creatinine Glucose POC Glucose Lactic Acid 0.40 L Calcium Ionized Calcium Phosphorus Magnesium ALT Alkaline Phosphatase Total Creatine Kinase 246 H CK-MB (CK-2) 6.2 H Troponin T C-Reactive Protein Total Protein Albumin Urine WBC (Auto) Urine Creatinine Salicylates Miscellaneous Test Crossmatch 05/05/17 05/05/17 05/05/17 05:20 05:20 05:20 WBC 33.9 H RBC 3.39 L Hgb 9.3 L Hct RDW 16.7 H Plt Count 712 H Seg Neuts % (Manual) 91.0 H Lymphocytes % (Manual) 1.0 L Monocytes % (Manual) Nucleated RBC % Seg Neutrophils # Man 30.8 H Lymphocytes # (Manual) 0.3 L Monocytes # (Manual) 1.5 H Eosinophils # (Manual) PT INR APTT D-Dimer POC ABG pH POC ABG pCO2 POC ABG pO2 Sodium Potassium Chloride Carbon Dioxide 9 L* BUN 53 H Creatinine 5.4 H Glucose POC Glucose Lactic Acid Calcium 6.1 L D Ionized Calcium Phosphorus Magnesium ALT Alkaline Phosphatase Total Creatine Kinase 346 H CK-MB (CK-2) 8.2 H Troponin T C-Reactive Protein Total Protein Albumin Urine WBC (Auto) Urine Creatinine Salicylates Miscellaneous Test Crossmatch 05/05/17 05/05/17 05/05/17 10:43 17:45 17:45 WBC RBC Hgb 8.8 L Hct RDW Plt Count Seg Neuts % (Manual) Lymphocytes % (Manual) Monocytes % (Manual) Nucleated RBC % Seg Neutrophils # Man Lymphocytes # (Manual) Monocytes # (Manual) Eosinophils # (Manual) PT INR APTT D-Dimer POC ABG pH 6.872 L POC ABG pCO2 POC ABG pO2 120 H Sodium Potassium Chloride Carbon Dioxide BUN Creatinine Glucose POC Glucose Lactic Acid Calcium Ionized Calcium 3.5 L Phosphorus Magnesium ALT Alkaline Phosphatase Total Creatine Kinase CK-MB (CK-2) Troponin T C-Reactive Protein Total Protein Albumin Urine WBC (Auto) Urine Creatinine Salicylates Miscellaneous Test Crossmatch 05/05/17 05/05/17 05/05/17 17:45 20:58 Unknown WBC RBC Hgb 9.0 L Hct 29.8 L RDW Plt Count Seg Neuts % (Manual) Lymphocytes % (Manual) Monocytes % (Manual) Nucleated RBC % Seg Neutrophils # Man Lymphocytes # (Manual) Monocytes # (Manual) Eosinophils # (Manual) PT INR APTT D-Dimer POC ABG pH POC ABG pCO2 POC ABG pO2 Sodium Potassium Chloride Carbon Dioxide BUN Creatinine Glucose POC Glucose Lactic Acid Calcium Ionized Calcium Phosphorus 6.20 H Magnesium 1.20 L ALT Alkaline Phosphatase Total Creatine Kinase CK-MB (CK-2) Troponin T C-Reactive Protein Total Protein Albumin Urine WBC (Auto) Urine Creatinine 28.0 H Salicylates Miscellaneous Test Crossmatch 05/06/17 05/06/17 05/06/17 05:09 05:23 07:55 WBC RBC Hgb Hct RDW Plt Count Seg Neuts % (Manual) Lymphocytes % (Manual) Monocytes % (Manual) Nucleated RBC % Seg Neutrophils # Man Lymphocytes # (Manual) Monocytes # (Manual) Eosinophils # (Manual) PT INR APTT D-Dimer POC ABG pH 7.029 L 7.060 L POC ABG pCO2 54.8 H 48.6 H POC ABG pO2 74 L 43 L Sodium Potassium 3.5 L Chloride Carbon Dioxide 18 L D BUN 44 H Creatinine 3.5 H Glucose 252 H POC Glucose Lactic Acid Calcium 5.8 L* Ionized Calcium Phosphorus Magnesium ALT Alkaline Phosphatase Total Creatine Kinase CK-MB (CK-2) Troponin T C-Reactive Protein Total Protein Albumin Urine WBC (Auto) Urine Creatinine Salicylates Miscellaneous Test Crossmatch 05/06/17 05/06/17 05/06/17 07:55 15:28 17:30 WBC RBC Hgb Hct RDW Plt Count Seg Neuts % (Manual) Lymphocytes % (Manual) Monocytes % (Manual) Nucleated RBC % Seg Neutrophils # Man Lymphocytes # (Manual) Monocytes # (Manual) Eosinophils # (Manual) PT INR APTT D-Dimer POC ABG pH 7.066 L POC ABG pCO2 80.9 H POC ABG pO2 65 L Sodium Potassium Chloride Carbon Dioxide BUN Creatinine Glucose POC Glucose Lactic Acid Calcium Ionized Calcium Phosphorus Magnesium ALT Alkaline Phosphatase Total Creatine Kinase CK-MB (CK-2) Troponin T C-Reactive Protein 14.50 H Total Protein Albumin Urine WBC (Auto) Urine Creatinine Salicylates Miscellaneous Test Flexitest 1 H Crossmatch 11/14/17 11/14/17 11/15/17 17:30 Unknown 10:18 WBC 39.2 H 32.9 H RBC 3.27 L Hgb 9.3 L Hct 30.2 L RDW 16.4 H 17.0 H Plt Count 645 H 467 H Seg Neuts % (Manual) Lymphocytes % (Manual) 11.0 L Monocytes % (Manual) Nucleated RBC % Seg Neutrophils # Man 21.2 H Lymphocytes # (Manual) Monocytes # (Manual) 2.0 H Eosinophils # (Manual) PT INR APTT D-Dimer POC ABG pH POC ABG pCO2 POC ABG pO2 Sodium Potassium 3.4 L Chloride Carbon Dioxide BUN 41 H Creatinine 3.2 H Glucose 265 H POC Glucose Lactic Acid Calcium 6.7 L D Ionized Calcium Phosphorus Magnesium ALT Alkaline Phosphatase Total Creatine Kinase CK-MB (CK-2) Troponin T C-Reactive Protein Total Protein Albumin Urine WBC (Auto) Urine Creatinine Salicylates Miscellaneous Test Crossmatch 05/07/17 05/07/17 05/08/17 11:32 12:36 05:45 WBC 31.1 H RBC 3.41 L Hgb 9.8 L Hct RDW 16.9 H Plt Count Seg Neuts % (Manual) 96.0 H Lymphocytes % (Manual) 1.0 L Monocytes % (Manual) Nucleated RBC % Seg Neutrophils # Man 29.9 H Lymphocytes # (Manual) 0.3 L Monocytes # (Manual) Eosinophils # (Manual) PT INR APTT D-Dimer POC ABG pH 7.290 L POC ABG pCO2 48.3 H POC ABG pO2 51 L Sodium 146 H Potassium 3.1 L Chloride 109.2 H Carbon Dioxide 20 L BUN 38 H Creatinine 2.7 H Glucose 213 H POC Glucose Lactic Acid Calcium 6.6 L Ionized Calcium Phosphorus Magnesium ALT Alkaline Phosphatase Total Creatine Kinase CK-MB (CK-2) Troponin T C-Reactive Protein Total Protein Albumin Urine WBC (Auto) Urine Creatinine Salicylates Miscellaneous Test Crossmatch 05/08/17 05/08/17 05/09/17 05:45 18:55 04:05 WBC 26.1 H RBC Hgb Hct RDW 17.6 H Plt Count Seg Neuts % (Manual) Lymphocytes % (Manual) 5.0 L Monocytes % (Manual) Nucleated RBC % Seg Neutrophils # Man 16.7 H Lymphocytes # (Manual) Monocytes # (Manual) Eosinophils # (Manual) PT INR APTT D-Dimer POC ABG pH POC ABG pCO2 POC ABG pO2 Sodium 150 H Potassium Chloride 115.4 H 112.2 H Carbon Dioxide 20 L 18 L BUN 39 H 45 H Creatinine 2.4 H 2.3 H Glucose 160 H 219 H POC Glucose Lactic Acid Calcium 6.6 L 7.2 L Ionized Calcium Phosphorus Magnesium 1.40 L ALT 6 L Alkaline Phosphatase Total Creatine Kinase CK-MB (CK-2) Troponin T C-Reactive Protein Total Protein 4.1 L D Albumin 2.0 L Urine WBC (Auto) Urine Creatinine Salicylates Miscellaneous Test Crossmatch 05/09/17 05/09/17 05/09/17 04:05 05:15 05:45 WBC RBC Hgb Hct RDW Plt Count Seg Neuts % (Manual) Lymphocytes % (Manual) Monocytes % (Manual) Nucleated RBC % Seg Neutrophils # Man Lymphocytes # (Manual) Monocytes # (Manual) Eosinophils # (Manual) PT INR APTT D-Dimer POC ABG pH POC ABG pCO2 POC ABG pO2 Sodium 130 L D Potassium 3.4 L D Chloride 94.6 L Carbon Dioxide 19 L BUN 39 H Creatinine 2.1 H Glucose 549 H* 189 H POC Glucose 181 H Lactic Acid Calcium 6.6 L Ionized Calcium Phosphorus Magnesium ALT 6 L Alkaline Phosphatase 31 L Total Creatine Kinase CK-MB (CK-2) Troponin T C-Reactive Protein Total Protein 3.5 L Albumin 2.0 L Urine WBC (Auto) Urine Creatinine Salicylates Miscellaneous Test Crossmatch 05/09/17 05/09/17 05/09/17 08:03 11:08 16:15 WBC RBC Hgb Hct RDW Plt Count Seg Neuts % (Manual) Lymphocytes % (Manual) Monocytes % (Manual) Nucleated RBC % Seg Neutrophils # Man Lymphocytes # (Manual) Monocytes # (Manual) Eosinophils # (Manual) PT INR APTT D-Dimer POC ABG pH POC ABG pCO2 POC ABG pO2 Sodium Potassium Chloride 107.8 H Carbon Dioxide 21 L BUN 43 H Creatinine 2.4 H Glucose 195 H POC Glucose 299 H 111 H Lactic Acid Calcium 7.1 L Ionized Calcium Phosphorus Magnesium ALT Alkaline Phosphatase Total Creatine Kinase CK-MB (CK-2) Troponin T C-Reactive Protein Total Protein 3.9 L Albumin 2.3 L Urine WBC (Auto) Urine Creatinine Salicylates Miscellaneous Test Crossmatch 05/09/17 05/10/17 05/10/17 23:05 05:00 05:00 WBC 20.9 H RBC 3.53 L Hgb Hct RDW 17.3 H Plt Count Seg Neuts % (Manual) 72.0 H Lymphocytes % (Manual) 8.0 L Monocytes % (Manual) Nucleated RBC % Seg Neutrophils # Man 15.0 H Lymphocytes # (Manual) Monocytes # (Manual) Eosinophils # (Manual) PT INR APTT D-Dimer POC ABG pH POC ABG pCO2 POC ABG pO2 Sodium 135 L D Potassium 3.2 L Chloride Carbon Dioxide 21 L BUN 45 H Creatinine 2.2 H Glucose 308 H POC Glucose 336 H Lactic Acid Calcium 7.1 L Ionized Calcium Phosphorus Magnesium ALT 5 L Alkaline Phosphatase 30 L Total Creatine Kinase CK-MB (CK-2) Troponin T C-Reactive Protein Total Protein 3.8 L Albumin 2.1 L Urine WBC (Auto) Urine Creatinine Salicylates Miscellaneous Test Crossmatch 05/10/17 05/10/17 05/10/17 07:28 11:36 16:03 WBC RBC Hgb Hct RDW Plt Count Seg Neuts % (Manual) Lymphocytes % (Manual) Monocytes % (Manual) Nucleated RBC % Seg Neutrophils # Man Lymphocytes # (Manual) Monocytes # (Manual) Eosinophils # (Manual) PT INR APTT D-Dimer POC ABG pH POC ABG pCO2 POC ABG pO2 Sodium Potassium Chloride Carbon Dioxide BUN Creatinine Glucose POC Glucose 154 H 184 H 162 H Lactic Acid Calcium Ionized Calcium Phosphorus Magnesium ALT Alkaline Phosphatase Total Creatine Kinase CK-MB (CK-2) Troponin T C-Reactive Protein Total Protein Albumin Urine WBC (Auto) Urine Creatinine Salicylates Miscellaneous Test Crossmatch 05/10/17 05/11/17 05/11/17 21:13 06:50 06:50 WBC 24.4 H RBC Hgb Hct RDW 17.4 H Plt Count Seg Neuts % (Manual) Lymphocytes % (Manual) 5.0 L Monocytes % (Manual) Nucleated RBC % Seg Neutrophils # Man 16.3 H Lymphocytes # (Manual) Monocytes # (Manual) 1.0 H Eosinophils # (Manual) PT INR APTT D-Dimer POC ABG pH POC ABG pCO2 POC ABG pO2 Sodium Potassium 3.4 L Chloride Carbon Dioxide BUN 50 H Creatinine 2.8 H Glucose 131 H POC Glucose 188 H Lactic Acid Calcium 7.6 L Ionized Calcium Phosphorus Magnesium ALT < 5 L Alkaline Phosphatase 25 L Total Creatine Kinase CK-MB (CK-2) Troponin T C-Reactive Protein Total Protein 3.6 L Albumin 2.0 L Urine WBC (Auto) Urine Creatinine Salicylates Miscellaneous Test Crossmatch 05/11/17 05/11/17 05/11/17 09:33 11:45 15:46 WBC RBC Hgb Hct RDW Plt Count Seg Neuts % (Manual) Lymphocytes % (Manual) Monocytes % (Manual) Nucleated RBC % Seg Neutrophils # Man Lymphocytes # (Manual) Monocytes # (Manual) Eosinophils # (Manual) PT INR APTT D-Dimer POC ABG pH POC ABG pCO2 POC ABG pO2 Sodium Potassium Chloride Carbon Dioxide BUN Creatinine Glucose POC Glucose 140 H 157 H 137 H Lactic Acid Calcium Ionized Calcium Phosphorus Magnesium ALT Alkaline Phosphatase Total Creatine Kinase CK-MB (CK-2) Troponin T C-Reactive Protein Total Protein Albumin Urine WBC (Auto) Urine Creatinine Salicylates Miscellaneous Test Crossmatch 05/11/17 05/11/17 05/12/17 17:50 20:58 05:00 WBC 23.1 H RBC 3.59 L Hgb Hct RDW 17.1 H Plt Count Seg Neuts % (Manual) 94.0 H Lymphocytes % (Manual) 0 L Monocytes % (Manual) Nucleated RBC % Seg Neutrophils # Man 21.7 H Lymphocytes # (Manual) 0.0 L Monocytes # (Manual) Eosinophils # (Manual) PT INR APTT D-Dimer POC ABG pH POC ABG pCO2 POC ABG pO2 Sodium Potassium Chloride Carbon Dioxide BUN Creatinine Glucose POC Glucose 155 H Lactic Acid Calcium Ionized Calcium Phosphorus Magnesium ALT Alkaline Phosphatase Total Creatine Kinase CK-MB (CK-2) Troponin T C-Reactive Protein Total Protein Albumin Urine WBC (Auto) 27.0 H Urine Creatinine Salicylates Miscellaneous Test Crossmatch 05/12/17 05/12/17 05/12/17 05:00 08:28 11:28 WBC RBC Hgb Hct RDW Plt Count Seg Neuts % (Manual) Lymphocytes % (Manual) Monocytes % (Manual) Nucleated RBC % Seg Neutrophils # Man Lymphocytes # (Manual) Monocytes # (Manual) Eosinophils # (Manual) PT INR APTT D-Dimer POC ABG pH POC ABG pCO2 POC ABG pO2 Sodium Potassium Chloride 111.7 H Carbon Dioxide BUN 53 H Creatinine 2.8 H Glucose 102 H POC Glucose 130 H 171 H Lactic Acid Calcium 6.9 L Ionized Calcium Phosphorus Magnesium ALT < 5 L Alkaline Phosphatase 25 L Total Creatine Kinase CK-MB (CK-2) Troponin T C-Reactive Protein Total Protein 3.3 L Albumin 1.7 L Urine WBC (Auto) Urine Creatinine Salicylates Miscellaneous Test Crossmatch 05/12/17 05/13/17 05/13/17 22:20 06:54 06:54 WBC 20.8 H RBC 3.17 L Hgb 9.2 L Hct 28.9 L RDW 17.7 H Plt Count Seg Neuts % (Manual) 93.0 H Lymphocytes % (Manual) 1.0 L Monocytes % (Manual) Nucleated RBC % Seg Neutrophils # Man 19.3 H Lymphocytes # (Manual) 0.2 L Monocytes # (Manual) Eosinophils # (Manual) 0.6 H PT INR APTT D-Dimer POC ABG pH POC ABG pCO2 POC ABG pO2 Sodium Potassium 3.3 L Chloride 110.0 H Carbon Dioxide 20 L BUN 48 H Creatinine 2.8 H Glucose 119 H POC Glucose 179 H Lactic Acid Calcium 7.4 L Ionized Calcium Phosphorus Magnesium ALT Alkaline Phosphatase Total Creatine Kinase CK-MB (CK-2) Troponin T C-Reactive Protein Total Protein Albumin Urine WBC (Auto) Urine Creatinine Salicylates Miscellaneous Test Crossmatch 05/13/17 05/13/17 05/13/17 07:35 12:52 23:32 WBC RBC Hgb Hct RDW Plt Count Seg Neuts % (Manual) Lymphocytes % (Manual) Monocytes % (Manual) Nucleated RBC % Seg Neutrophils # Man Lymphocytes # (Manual) Monocytes # (Manual) Eosinophils # (Manual) PT INR APTT D-Dimer POC ABG pH POC ABG pCO2 POC ABG pO2 Sodium Potassium Chloride Carbon Dioxide BUN Creatinine Glucose POC Glucose 139 H 159 H 179 H Lactic Acid Calcium Ionized Calcium Phosphorus Magnesium ALT Alkaline Phosphatase Total Creatine Kinase CK-MB (CK-2) Troponin T C-Reactive Protein Total Protein Albumin Urine WBC (Auto) Urine Creatinine Salicylates Miscellaneous Test Crossmatch 05/14/17 05/14/17 05/14/17 04:00 05:00 07:30 WBC 19.3 H RBC 3.16 L Hgb 9.1 L Hct 29.1 L RDW 17.9 H Plt Count Seg Neuts % (Manual) 87.0 H Lymphocytes % (Manual) 2.0 L Monocytes % (Manual) Nucleated RBC % Seg Neutrophils # Man 16.8 H Lymphocytes # (Manual) 0.4 L Monocytes # (Manual) 1.0 H Eosinophils # (Manual) 0.6 H PT INR APTT D-Dimer POC ABG pH POC ABG pCO2 POC ABG pO2 Sodium 146 H Potassium Chloride 114.7 H Carbon Dioxide 19 L BUN 43 H Creatinine 2.5 H Glucose POC Glucose 110 H Lactic Acid Calcium 7.5 L Ionized Calcium Phosphorus Magnesium ALT Alkaline Phosphatase Total Creatine Kinase CK-MB (CK-2) Troponin T C-Reactive Protein Total Protein Albumin Urine WBC (Auto) Urine Creatinine Salicylates Miscellaneous Test Crossmatch 05/14/17 05/14/17 05/14/17 11:43 15:44 20:10 WBC RBC Hgb Hct RDW Plt Count Seg Neuts % (Manual) Lymphocytes % (Manual) Monocytes % (Manual) Nucleated RBC % Seg Neutrophils # Man Lymphocytes # (Manual) Monocytes # (Manual) Eosinophils # (Manual) PT INR APTT D-Dimer POC ABG pH POC ABG pCO2 POC ABG pO2 Sodium Potassium Chloride Carbon Dioxide BUN Creatinine Glucose POC Glucose 169 H 201 H 223 H Lactic Acid Calcium Ionized Calcium Phosphorus Magnesium ALT Alkaline Phosphatase Total Creatine Kinase CK-MB (CK-2) Troponin T C-Reactive Protein Total Protein Albumin Urine WBC (Auto) Urine Creatinine Salicylates Miscellaneous Test Crossmatch 05/15/17 05/15/17 05/15/17 06:10 08:50 12:57 WBC RBC Hgb Hct RDW Plt Count Seg Neuts % (Manual) Lymphocytes % (Manual) Monocytes % (Manual) Nucleated RBC % Seg Neutrophils # Man Lymphocytes # (Manual) Monocytes # (Manual) Eosinophils # (Manual) PT INR APTT D-Dimer POC ABG pH POC ABG pCO2 POC ABG pO2 Sodium Potassium Chloride 113.6 H Carbon Dioxide 18 L BUN 43 H Creatinine 2.7 H Glucose 123 H POC Glucose 204 H 127 H Lactic Acid Calcium 7.2 L Ionized Calcium Phosphorus Magnesium ALT Alkaline Phosphatase Total Creatine Kinase CK-MB (CK-2) Troponin T C-Reactive Protein Total Protein Albumin Urine WBC (Auto) Urine Creatinine Salicylates Miscellaneous Test Crossmatch 05/15/17 05/15/17 05/15/17 17:43 21:29 23:51 WBC RBC Hgb Hct RDW Plt Count Seg Neuts % (Manual) Lymphocytes % (Manual) Monocytes % (Manual) Nucleated RBC % Seg Neutrophils # Man Lymphocytes # (Manual) Monocytes # (Manual) Eosinophils # (Manual) PT INR APTT D-Dimer POC ABG pH 6.983 L POC ABG pCO2 67.5 H POC ABG pO2 Sodium Potassium Chloride Carbon Dioxide BUN Creatinine Glucose POC Glucose 121 H 129 H Lactic Acid Calcium Ionized Calcium Phosphorus Magnesium ALT Alkaline Phosphatase Total Creatine Kinase CK-MB (CK-2) Troponin T C-Reactive Protein Total Protein Albumin Urine WBC (Auto) Urine Creatinine Salicylates Miscellaneous Test Crossmatch 05/16/17 05/16/17 05/16/17 00:15 06:00 07:46 WBC RBC Hgb Hct RDW Plt Count Seg Neuts % (Manual) Lymphocytes % (Manual) Monocytes % (Manual) Nucleated RBC % Seg Neutrophils # Man Lymphocytes # (Manual) Monocytes # (Manual) Eosinophils # (Manual) PT INR APTT D-Dimer POC ABG pH POC ABG pCO2 POC ABG pO2 Sodium Potassium Chloride 114.2 H Carbon Dioxide 17 L BUN 44 H Creatinine 3.3 H Glucose 118 H POC Glucose 135 H Lactic Acid 0.60 L Calcium 7.5 L Ionized Calcium Phosphorus Magnesium ALT Alkaline Phosphatase Total Creatine Kinase CK-MB (CK-2) Troponin T C-Reactive Protein Total Protein Albumin Urine WBC (Auto) Urine Creatinine Salicylates Miscellaneous Test Crossmatch 05/16/17 05/16/17 05/16/17 09:38 10:20 10:20 WBC 18.6 H RBC 3.08 L Hgb 9.0 L Hct 29.0 L RDW 18.8 H Plt Count Seg Neuts % (Manual) Lymphocytes % (Manual) 5.0 L Monocytes % (Manual) Nucleated RBC % Seg Neutrophils # Man 11.3 H Lymphocytes # (Manual) 0.9 L Monocytes # (Manual) 1.3 H Eosinophils # (Manual) PT INR APTT D-Dimer POC ABG pH 7.081 L POC ABG pCO2 46.3 H POC ABG pO2 107 H Sodium Potassium Chloride 114.9 H Carbon Dioxide 14 L BUN 44 H Creatinine 3.0 H Glucose 115 H POC Glucose Lactic Acid Calcium 7.3 L Ionized Calcium Phosphorus 5.40 H Magnesium ALT < 5 L Alkaline Phosphatase 17 L Total Creatine Kinase CK-MB (CK-2) Troponin T C-Reactive Protein Total Protein 4.2 L D Albumin 2.9 L Urine WBC (Auto) Urine Creatinine Salicylates Miscellaneous Test Crossmatch 05/17/17 05/17/17 05/17/17 03:44 04:00 05:00 WBC 21.9 H RBC 2.89 L Hgb 8.3 L Hct 26.4 L RDW 18.2 H Plt Count Seg Neuts % (Manual) Lymphocytes % (Manual) 7.0 L Monocytes % (Manual) Nucleated RBC % Seg Neutrophils # Man 15.3 H Lymphocytes # (Manual) Monocytes # (Manual) 1.5 H Eosinophils # (Manual) PT INR APTT D-Dimer POC ABG pH 7.199 L POC ABG pCO2 POC ABG pO2 107 H Sodium Potassium Chloride 111.7 H Carbon Dioxide 16 L BUN 43 H Creatinine 3.4 H Glucose POC Glucose Lactic Acid Calcium 7.3 L Ionized Calcium Phosphorus Magnesium ALT Alkaline Phosphatase Total Creatine Kinase CK-MB (CK-2) Troponin T C-Reactive Protein Total Protein Albumin Urine WBC (Auto) Urine Creatinine Salicylates Miscellaneous Test Crossmatch 05/17/17 05/17/17 05/18/17 05:00 12:20 04:43 WBC RBC Hgb Hct RDW Plt Count Seg Neuts % (Manual) Lymphocytes % (Manual) Monocytes % (Manual) Nucleated RBC % Seg Neutrophils # Man Lymphocytes # (Manual) Monocytes # (Manual) Eosinophils # (Manual) PT INR APTT D-Dimer POC ABG pH 7.251 L POC ABG pCO2 POC ABG pO2 126 H Sodium Potassium Chloride Carbon Dioxide BUN Creatinine Glucose POC Glucose Lactic Acid Calcium Ionized Calcium Phosphorus Magnesium ALT Alkaline Phosphatase Total Creatine Kinase CK-MB (CK-2) Troponin T C-Reactive Protein 2.30 H Total Protein Albumin Urine WBC (Auto) Urine Creatinine Salicylates Miscellaneous Test Flexitest 1 H Crossmatch 05/18/17 05/18/17 05/18/17 14:46 21:30 Unknown WBC RBC Hgb Hct RDW Plt Count Seg Neuts % (Manual) Lymphocytes % (Manual) Monocytes % (Manual) Nucleated RBC % Seg Neutrophils # Man Lymphocytes # (Manual) Monocytes # (Manual) Eosinophils # (Manual) PT INR APTT D-Dimer POC ABG pH 7.227 L POC ABG pCO2 POC ABG pO2 126 H Sodium Potassium 3.2 L Chloride 108.9 H Carbon Dioxide 19 L BUN 44 H Creatinine 3.6 H Glucose POC Glucose 206 H Lactic Acid Calcium 7.3 L Ionized Calcium Phosphorus Magnesium ALT Alkaline Phosphatase Total Creatine Kinase CK-MB (CK-2) Troponin T C-Reactive Protein Total Protein Albumin Urine WBC (Auto) Urine Creatinine Salicylates Miscellaneous Test Crossmatch 05/18/17 05/19/17 05/19/17 Unknown 05:26 06:00 WBC 25.2 H RBC 2.76 L Hgb 8.0 L Hct 24.9 L RDW 17.7 H Plt Count Seg Neuts % (Manual) 86.0 H Lymphocytes % (Manual) 1.0 L Monocytes % (Manual) Nucleated RBC % Seg Neutrophils # Man 21.7 H Lymphocytes # (Manual) 0.3 L Monocytes # (Manual) 1.5 H Eosinophils # (Manual) PT INR APTT D-Dimer POC ABG pH 7.216 L POC ABG pCO2 47.0 H POC ABG pO2 Sodium Potassium Chloride Carbon Dioxide BUN Creatinine Glucose POC Glucose 173 H Lactic Acid Calcium Ionized Calcium Phosphorus Magnesium ALT Alkaline Phosphatase Total Creatine Kinase CK-MB (CK-2) Troponin T C-Reactive Protein Total Protein Albumin Urine WBC (Auto) Urine Creatinine Salicylates Miscellaneous Test Crossmatch 05/19/17 05/19/17 05/19/17 11:47 18:04 23:54 WBC RBC Hgb Hct RDW Plt Count Seg Neuts % (Manual) Lymphocytes % (Manual) Monocytes % (Manual) Nucleated RBC % Seg Neutrophils # Man Lymphocytes # (Manual) Monocytes # (Manual) Eosinophils # (Manual) PT INR APTT D-Dimer POC ABG pH POC ABG pCO2 POC ABG pO2 Sodium Potassium Chloride Carbon Dioxide BUN Creatinine Glucose POC Glucose 203 H 178 H Lactic Acid Calcium Ionized Calcium Phosphorus Magnesium ALT Alkaline Phosphatase Total Creatine Kinase CK-MB (CK-2) Troponin T C-Reactive Protein Total Protein Albumin Urine WBC (Auto) 78.0 H Urine Creatinine Salicylates Miscellaneous Test Crossmatch 05/19/17 05/19/17 05/20/17 Unknown Unknown 05:03 WBC 36.5 H RBC 2.71 L Hgb 7.7 L Hct 24.3 L RDW 18.3 H Plt Count Seg Neuts % (Manual) 79.0 H Lymphocytes % (Manual) 3.0 L Monocytes % (Manual) Nucleated RBC % Seg Neutrophils # Man 28.8 H Lymphocytes # (Manual) 1.1 L Monocytes # (Manual) 2.6 H Eosinophils # (Manual) PT INR APTT D-Dimer POC ABG pH 7.322 L POC ABG pCO2 46.3 H POC ABG pO2 160 H Sodium Potassium 3.5 L Chloride 108.1 H Carbon Dioxide 20 L BUN 36 H Creatinine 3.1 H Glucose 165 H POC Glucose Lactic Acid Calcium 7.7 L Ionized Calcium Phosphorus Magnesium ALT Alkaline Phosphatase Total Creatine Kinase CK-MB (CK-2) Troponin T C-Reactive Protein Total Protein Albumin Urine WBC (Auto) Urine Creatinine Salicylates Miscellaneous Test Crossmatch 05/20/17 05/20/17 05/20/17 05:30 05:30 05:44 WBC 44.4 H* RBC 2.65 L Hgb 7.6 L Hct 23.7 L RDW 18.0 H Plt Count Seg Neuts % (Manual) Lymphocytes % (Manual) 7.0 L Monocytes % (Manual) 12.0 H Nucleated RBC % Seg Neutrophils # Man 22.2 H Lymphocytes # (Manual) Monocytes # (Manual) 5.3 H Eosinophils # (Manual) PT INR APTT D-Dimer POC ABG pH POC ABG pCO2 POC ABG pO2 Sodium Potassium 3.5 L Chloride Carbon Dioxide BUN 23 H Creatinine 2.1 H Glucose 167 H POC Glucose 182 H Lactic Acid Calcium 7.7 L Ionized Calcium Phosphorus Magnesium 1.40 L ALT Alkaline Phosphatase Total Creatine Kinase CK-MB (CK-2) Troponin T C-Reactive Protein Total Protein Albumin Urine WBC (Auto) Urine Creatinine Salicylates Miscellaneous Test Crossmatch 05/20/17 05/20/17 05/20/17 11:59 13:46 13:46 WBC RBC Hgb Hct RDW Plt Count Seg Neuts % (Manual) Lymphocytes % (Manual) Monocytes % (Manual) Nucleated RBC % Seg Neutrophils # Man Lymphocytes # (Manual) Monocytes # (Manual) Eosinophils # (Manual) PT 22.6 H INR 1.89 H APTT 44.6 H D-Dimer POC ABG pH POC ABG pCO2 POC ABG pO2 Sodium Potassium Chloride Carbon Dioxide BUN Creatinine Glucose POC Glucose 162 H Lactic Acid Calcium Ionized Calcium Phosphorus Magnesium ALT Alkaline Phosphatase Total Creatine Kinase CK-MB (CK-2) Troponin T C-Reactive Protein Total Protein Albumin Urine WBC (Auto) Urine Creatinine Salicylates Miscellaneous Test Crossmatch See Detail 05/20/17 05/20/17 05/20/17 17:36 20:00 20:44 WBC 38.3 H RBC 3.60 L Hgb Hct RDW 15.8 H Plt Count Seg Neuts % (Manual) Lymphocytes % (Manual) Monocytes % (Manual) Nucleated RBC % Seg Neutrophils # Man Lymphocytes # (Manual) Monocytes # (Manual) Eosinophils # (Manual) PT 21.4 H INR 1.76 H APTT 172.2 H* D-Dimer POC ABG pH POC ABG pCO2 POC ABG pO2 Sodium Potassium Chloride Carbon Dioxide BUN Creatinine Glucose POC Glucose 144 H Lactic Acid Calcium Ionized Calcium Phosphorus Magnesium ALT Alkaline Phosphatase Total Creatine Kinase CK-MB (CK-2) Troponin T C-Reactive Protein Total Protein Albumin Urine WBC (Auto) Urine Creatinine Salicylates Miscellaneous Test Crossmatch 05/20/17 05/20/17 05/21/17 22:20 23:37 05:20 WBC RBC Hgb Hct RDW Plt Count Seg Neuts % (Manual) Lymphocytes % (Manual) Monocytes % (Manual) Nucleated RBC % Seg Neutrophils # Man Lymphocytes # (Manual) Monocytes # (Manual) Eosinophils # (Manual) PT INR APTT 42.8 H D-Dimer POC ABG pH POC ABG pCO2 POC ABG pO2 Sodium Potassium 3.5 L Chloride Carbon Dioxide BUN Creatinine 1.5 H Glucose 106 H POC Glucose 113 H Lactic Acid Calcium 7.7 L Ionized Calcium Phosphorus Magnesium ALT Alkaline Phosphatase Total Creatine Kinase CK-MB (CK-2) Troponin T C-Reactive Protein Total Protein Albumin Urine WBC (Auto) Urine Creatinine Salicylates Miscellaneous Test Crossmatch 05/21/17 05/21/17 05/21/17 05:20 05:20 05:31 WBC 31.6 H RBC Hgb Hct RDW 15.8 H Plt Count Seg Neuts % (Manual) 90.0 H Lymphocytes % (Manual) 3.0 L Monocytes % (Manual) Nucleated RBC % Seg Neutrophils # Man 28.4 H Lymphocytes # (Manual) 0.9 L Monocytes # (Manual) Eosinophils # (Manual) 1.3 H PT 19.1 H INR 1.53 H APTT 37.9 H D-Dimer POC ABG pH POC ABG pCO2 POC ABG pO2 Sodium Potassium Chloride Carbon Dioxide BUN Creatinine Glucose POC Glucose 126 H Lactic Acid Calcium Ionized Calcium Phosphorus Magnesium ALT Alkaline Phosphatase Total Creatine Kinase CK-MB (CK-2) Troponin T C-Reactive Protein Total Protein Albumin Urine WBC (Auto) Urine Creatinine Salicylates Miscellaneous Test Crossmatch 05/21/17 05/21/17 05/21/17 12:46 13:00 13:00 WBC 32.9 H RBC 3.09 L Hgb 9.0 L Hct 27.6 L RDW 16.3 H Plt Count Seg Neuts % (Manual) 86.0 H Lymphocytes % (Manual) 2.0 L Monocytes % (Manual) Nucleated RBC % 2.0 H Seg Neutrophils # Man 28.3 H Lymphocytes # (Manual) 0.7 L Monocytes # (Manual) Eosinophils # (Manual) PT INR APTT D-Dimer POC ABG pH POC ABG pCO2 POC ABG pO2 Sodium Potassium 3.3 L Chloride 108.4 H Carbon Dioxide 20 L BUN Creatinine 1.4 H Glucose 119 H POC Glucose 157 H Lactic Acid Calcium 6.5 L D Ionized Calcium Phosphorus Magnesium ALT Alkaline Phosphatase 28 L Total Creatine Kinase CK-MB (CK-2) Troponin T C-Reactive Protein Total Protein 3.2 L Albumin 1.7 L Urine WBC (Auto) Urine Creatinine Salicylates Miscellaneous Test Crossmatch 05/21/17 05/21/17 05/21/17 13:00 18:15 21:00 WBC 42.4 H* RBC 2.85 L Hgb 8.2 L Hct 25.9 L RDW 16.3 H Plt Count Seg Neuts % (Manual) 95.0 H Lymphocytes % (Manual) 3.0 L Monocytes % (Manual) Nucleated RBC % Seg Neutrophils # Man 40.3 H Lymphocytes # (Manual) Monocytes # (Manual) Eosinophils # (Manual) PT 19.7 H INR 1.59 H APTT 41.1 H D-Dimer POC ABG pH POC ABG pCO2 POC ABG pO2 Sodium Potassium Chloride Carbon Dioxide BUN Creatinine Glucose POC Glucose 149 H Lactic Acid Calcium Ionized Calcium Phosphorus Magnesium ALT Alkaline Phosphatase Total Creatine Kinase CK-MB (CK-2) Troponin T C-Reactive Protein Total Protein Albumin Urine WBC (Auto) Urine Creatinine Salicylates Miscellaneous Test Crossmatch 05/22/17 05/22/17 05/22/17 00:02 04:50 04:50 WBC RBC Hgb Hct RDW Plt Count Seg Neuts % (Manual) Lymphocytes % (Manual) Monocytes % (Manual) Nucleated RBC % Seg Neutrophils # Man Lymphocytes # (Manual) Monocytes # (Manual) Eosinophils # (Manual) PT INR APTT D-Dimer POC ABG pH POC ABG pCO2 POC ABG pO2 Sodium Potassium Chloride 109.4 H Carbon Dioxide 18 L BUN Creatinine 1.8 H Glucose 164 H POC Glucose 155 H Lactic Acid Calcium 6.6 L Ionized Calcium Phosphorus Magnesium 1.40 L ALT Alkaline Phosphatase 33 L Total Creatine Kinase CK-MB (CK-2) Troponin T C-Reactive Protein Total Protein 3.6 L Albumin 2.0 L Urine WBC (Auto) Urine Creatinine Salicylates Miscellaneous Test Crossmatch 05/22/17 05/22/17 05/22/17 04:50 04:50 05:39 WBC 41.8 H* RBC 2.65 L Hgb 7.8 L Hct 24.1 L RDW 16.5 H Plt Count Seg Neuts % (Manual) 73.0 H Lymphocytes % (Manual) 4.0 L Monocytes % (Manual) Nucleated RBC % Seg Neutrophils # Man 30.5 H Lymphocytes # (Manual) Monocytes # (Manual) 1.3 H Eosinophils # (Manual) PT 21.3 H INR 1.75 H APTT 39.4 H D-Dimer POC ABG pH POC ABG pCO2 POC ABG pO2 Sodium Potassium Chloride Carbon Dioxide BUN Creatinine Glucose POC Glucose 200 H Lactic Acid Calcium Ionized Calcium Phosphorus Magnesium ALT Alkaline Phosphatase Total Creatine Kinase CK-MB (CK-2) Troponin T C-Reactive Protein Total Protein Albumin Urine WBC (Auto) Urine Creatinine Salicylates Miscellaneous Test Crossmatch 05/22/17 05/22/17 05/22/17 05:46 10:32 11:41 WBC RBC Hgb Hct RDW Plt Count Seg Neuts % (Manual) Lymphocytes % (Manual) Monocytes % (Manual) Nucleated RBC % Seg Neutrophils # Man Lymphocytes # (Manual) Monocytes # (Manual) Eosinophils # (Manual) PT INR APTT D-Dimer POC ABG pH 7.225 L 7.317 L POC ABG pCO2 45.3 H POC ABG pO2 Sodium Potassium Chloride Carbon Dioxide BUN Creatinine Glucose POC Glucose 169 H Lactic Acid Calcium Ionized Calcium Phosphorus Magnesium ALT Alkaline Phosphatase Total Creatine Kinase CK-MB (CK-2) Troponin T C-Reactive Protein Total Protein Albumin Urine WBC (Auto) Urine Creatinine Salicylates Miscellaneous Test Crossmatch 05/22/17 05/22/17 05/22/17 12:45 18:01 22:50 WBC RBC Hgb 7.4 L 8.8 L Hct 23.5 L 27.8 L RDW Plt Count Seg Neuts % (Manual) Lymphocytes % (Manual) Monocytes % (Manual) Nucleated RBC % Seg Neutrophils # Man Lymphocytes # (Manual) Monocytes # (Manual) Eosinophils # (Manual) PT INR APTT D-Dimer POC ABG pH POC ABG pCO2 POC ABG pO2 Sodium Potassium Chloride Carbon Dioxide BUN Creatinine Glucose POC Glucose 148 H Lactic Acid Calcium Ionized Calcium Phosphorus Magnesium ALT Alkaline Phosphatase Total Creatine Kinase CK-MB (CK-2) Troponin T C-Reactive Protein Total Protein Albumin Urine WBC (Auto) Urine Creatinine Salicylates Miscellaneous Test Crossmatch 05/22/17 05/23/17 05/23/17 23:53 05:15 05:15 WBC 40.9 H* RBC 3.06 L Hgb 8.9 L Hct 27.4 L RDW 16.7 H Plt Count Seg Neuts % (Manual) 93.0 H Lymphocytes % (Manual) 3.0 L Monocytes % (Manual) Nucleated RBC % Seg Neutrophils # Man 38.0 H Lymphocytes # (Manual) Monocytes # (Manual) Eosinophils # (Manual) PT INR APTT D-Dimer POC ABG pH POC ABG pCO2 POC ABG pO2 Sodium Potassium Chloride 110.6 H Carbon Dioxide 19 L BUN 18 H Creatinine 1.9 H Glucose 102 H POC Glucose 143 H Lactic Acid Calcium 7.0 L Ionized Calcium Phosphorus Magnesium ALT Alkaline Phosphatase Total Creatine Kinase CK-MB (CK-2) Troponin T C-Reactive Protein Total Protein Albumin Urine WBC (Auto) Urine Creatinine Salicylates Miscellaneous Test Crossmatch 05/23/17 05/23/17 05/23/17 05:23 06:09 08:55 WBC RBC Hgb Hct RDW Plt Count Seg Neuts % (Manual) Lymphocytes % (Manual) Monocytes % (Manual) Nucleated RBC % Seg Neutrophils # Man Lymphocytes # (Manual) Monocytes # (Manual) Eosinophils # (Manual) PT INR APTT D-Dimer POC ABG pH 7.240 L 7.297 L POC ABG pCO2 POC ABG pO2 Sodium Potassium Chloride Carbon Dioxide BUN Creatinine Glucose POC Glucose 124 H Lactic Acid Calcium Ionized Calcium Phosphorus Magnesium ALT Alkaline Phosphatase Total Creatine Kinase CK-MB (CK-2) Troponin T C-Reactive Protein Total Protein Albumin Urine WBC (Auto) Urine Creatinine Salicylates Miscellaneous Test Crossmatch 05/23/17 05/23/17 05/23/17 12:46 16:55 18:33 WBC RBC Hgb Hct RDW Plt Count Seg Neuts % (Manual) Lymphocytes % (Manual) Monocytes % (Manual) Nucleated RBC % Seg Neutrophils # Man Lymphocytes # (Manual) Monocytes # (Manual) Eosinophils # (Manual) PT INR APTT D-Dimer POC ABG pH POC ABG pCO2 POC ABG pO2 Sodium Potassium Chloride Carbon Dioxide BUN Creatinine Glucose POC Glucose 159 H 139 H Lactic Acid Calcium Ionized Calcium Phosphorus Magnesium ALT Alkaline Phosphatase Total Creatine Kinase CK-MB (CK-2) Troponin T C-Reactive Protein 7.10 H Total Protein Albumin Urine WBC (Auto) Urine Creatinine Salicylates Miscellaneous Test Crossmatch 05/23/17 05/24/17 05/24/17 23:25 06:14 07:16 WBC RBC Hgb Hct RDW Plt Count Seg Neuts % (Manual) Lymphocytes % (Manual) Monocytes % (Manual) Nucleated RBC % Seg Neutrophils # Man Lymphocytes # (Manual) Monocytes # (Manual) Eosinophils # (Manual) PT INR APTT D-Dimer POC ABG pH POC ABG pCO2 POC ABG pO2 Sodium Potassium Chloride Carbon Dioxide BUN Creatinine 1.5 H Glucose 130 H POC Glucose 143 H 159 H Lactic Acid Calcium 7.6 L Ionized Calcium Phosphorus Magnesium ALT Alkaline Phosphatase Total Creatine Kinase CK-MB (CK-2) Troponin T C-Reactive Protein Total Protein Albumin Urine WBC (Auto) Urine Creatinine Salicylates Miscellaneous Test Crossmatch 05/24/17 05/24/17 05/24/17 07:16 11:42 17:27 WBC 36.9 H RBC 2.90 L Hgb 8.5 L Hct 26.2 L RDW 16.8 H Plt Count Seg Neuts % (Manual) 96.5 H Lymphocytes % (Manual) 0 L Monocytes % (Manual) Nucleated RBC % 2.0 H Seg Neutrophils # Man 35.6 H Lymphocytes # (Manual) 0.0 L Monocytes # (Manual) 0.9 H Eosinophils # (Manual) PT INR APTT D-Dimer POC ABG pH POC ABG pCO2 POC ABG pO2 Sodium Potassium Chloride Carbon Dioxide BUN Creatinine Glucose POC Glucose 168 H 59 L Lactic Acid Calcium Ionized Calcium Phosphorus Magnesium ALT Alkaline Phosphatase Total Creatine Kinase CK-MB (CK-2) Troponin T C-Reactive Protein Total Protein Albumin Urine WBC (Auto) Urine Creatinine Salicylates Miscellaneous Test Crossmatch 05/24/17 05/24/17 05/25/17 18:43 23:47 05:37 WBC RBC Hgb Hct RDW Plt Count Seg Neuts % (Manual) Lymphocytes % (Manual) Monocytes % (Manual) Nucleated RBC % Seg Neutrophils # Man Lymphocytes # (Manual) Monocytes # (Manual) Eosinophils # (Manual) PT INR APTT D-Dimer POC ABG pH POC ABG pCO2 POC ABG pO2 Sodium Potassium Chloride Carbon Dioxide BUN Creatinine Glucose POC Glucose 139 H 150 H 152 H Lactic Acid Calcium Ionized Calcium Phosphorus Magnesium ALT Alkaline Phosphatase Total Creatine Kinase CK-MB (CK-2) Troponin T C-Reactive Protein Total Protein Albumin Urine WBC (Auto) Urine Creatinine Salicylates Miscellaneous Test Crossmatch 05/25/17 05/25/17 05/25/17 07:08 07:08 12:06 WBC 31.7 H RBC 2.81 L Hgb 8.2 L Hct 25.4 L RDW 16.3 H Plt Count Seg Neuts % (Manual) 97.0 H Lymphocytes % (Manual) 1.5 L Monocytes % (Manual) Nucleated RBC % 3.5 H Seg Neutrophils # Man 30.7 H Lymphocytes # (Manual) 0.5 L Monocytes # (Manual) Eosinophils # (Manual) PT INR APTT D-Dimer POC ABG pH POC ABG pCO2 POC ABG pO2 Sodium Potassium Chloride Carbon Dioxide BUN 24 H Creatinine 1.5 H Glucose 126 H POC Glucose 178 H Lactic Acid Calcium 8.0 L Ionized Calcium Phosphorus Magnesium ALT Alkaline Phosphatase Total Creatine Kinase CK-MB (CK-2) Troponin T C-Reactive Protein Total Protein Albumin Urine WBC (Auto) Urine Creatinine Salicylates Miscellaneous Test Crossmatch 05/25/17 05/25/17 05/26/17 17:47 23:30 05:32 WBC RBC Hgb Hct RDW Plt Count Seg Neuts % (Manual) Lymphocytes % (Manual) Monocytes % (Manual) Nucleated RBC % Seg Neutrophils # Man Lymphocytes # (Manual) Monocytes # (Manual) Eosinophils # (Manual) PT INR APTT D-Dimer POC ABG pH POC ABG pCO2 POC ABG pO2 Sodium Potassium Chloride Carbon Dioxide BUN Creatinine Glucose POC Glucose 123 H 125 H 182 H Lactic Acid Calcium Ionized Calcium Phosphorus Magnesium ALT Alkaline Phosphatase Total Creatine Kinase CK-MB (CK-2) Troponin T C-Reactive Protein Total Protein Albumin Urine WBC (Auto) Urine Creatinine Salicylates Miscellaneous Test Crossmatch 05/26/17 05/26/17 05/26/17 06:00 07:15 07:15 WBC 21.0 H RBC 2.72 L Hgb 7.8 L Hct 24.5 L RDW 16.5 H Plt Count Seg Neuts % (Manual) 88.0 H Lymphocytes % (Manual) 6.0 L Monocytes % (Manual) Nucleated RBC % 3.0 H Seg Neutrophils # Man 18.5 H Lymphocytes # (Manual) Monocytes # (Manual) Eosinophils # (Manual) PT INR APTT D-Dimer POC ABG pH POC ABG pCO2 POC ABG pO2 Sodium Potassium Chloride Carbon Dioxide BUN 34 H 34 H Creatinine 1.5 H 1.5 H Glucose 148 H 145 H POC Glucose Lactic Acid Calcium 8.1 L 8.2 L Ionized Calcium Phosphorus Magnesium ALT < 5 L Alkaline Phosphatase Total Creatine Kinase CK-MB (CK-2) Troponin T C-Reactive Protein Total Protein 4.0 L Albumin 2.3 L Urine WBC (Auto) Urine Creatinine Salicylates Miscellaneous Test Crossmatch 05/26/17 05/26/17 05/26/17 10:50 12:16 18:14 WBC RBC Hgb Hct RDW Plt Count Seg Neuts % (Manual) Lymphocytes % (Manual) Monocytes % (Manual) Nucleated RBC % Seg Neutrophils # Man Lymphocytes # (Manual) Monocytes # (Manual) Eosinophils # (Manual) PT INR APTT D-Dimer POC ABG pH POC ABG pCO2 POC ABG pO2 Sodium Potassium Chloride Carbon Dioxide BUN Creatinine Glucose POC Glucose 143 H 161 H Lactic Acid Calcium Ionized Calcium Phosphorus Magnesium ALT Alkaline Phosphatase Total Creatine Kinase CK-MB (CK-2) Troponin T C-Reactive Protein Total Protein Albumin Urine WBC (Auto) Urine Creatinine Salicylates Miscellaneous Test Crossmatch See Detail 05/26/17 05/26/17 05/27/17 19:02 23:46 05:17 WBC 19.8 H RBC 3.35 L Hgb 9.7 L Hct 29.3 L RDW 17.8 H Plt Count Seg Neuts % (Manual) 89.0 H Lymphocytes % (Manual) 6.0 L Monocytes % (Manual) Nucleated RBC % Seg Neutrophils # Man 17.6 H Lymphocytes # (Manual) Monocytes # (Manual) Eosinophils # (Manual) PT INR APTT D-Dimer POC ABG pH POC ABG pCO2 POC ABG pO2 Sodium Potassium Chloride Carbon Dioxide BUN Creatinine Glucose POC Glucose 108 H 173 H Lactic Acid Calcium Ionized Calcium Phosphorus Magnesium ALT Alkaline Phosphatase Total Creatine Kinase CK-MB (CK-2) Troponin T C-Reactive Protein Total Protein Albumin Urine WBC (Auto) Urine Creatinine Salicylates Miscellaneous Test Crossmatch 05/27/17 05/27/17 05/27/17 06:05 06:05 11:44 WBC 20.2 H RBC 3.30 L Hgb 9.2 L Hct 28.6 L RDW 17.7 H Plt Count Seg Neuts % (Manual) 83.0 H Lymphocytes % (Manual) 7.0 L Monocytes % (Manual) Nucleated RBC % 1.0 H Seg Neutrophils # Man 16.8 H Lymphocytes # (Manual) Monocytes # (Manual) 1.2 H Eosinophils # (Manual) PT INR APTT D-Dimer POC ABG pH POC ABG pCO2 POC ABG pO2 Sodium Potassium Chloride Carbon Dioxide BUN 39 H Creatinine 1.4 H Glucose 162 H POC Glucose 138 H Lactic Acid Calcium 8.1 L Ionized Calcium Phosphorus Magnesium ALT Alkaline Phosphatase Total Creatine Kinase CK-MB (CK-2) Troponin T C-Reactive Protein Total Protein Albumin Urine WBC (Auto) Urine Creatinine Salicylates Miscellaneous Test Crossmatch 05/27/17 05/27/17 05/28/17 16:58 21:39 04:00 WBC RBC Hgb Hct RDW Plt Count Seg Neuts % (Manual) Lymphocytes % (Manual) Monocytes % (Manual) Nucleated RBC % Seg Neutrophils # Man Lymphocytes # (Manual) Monocytes # (Manual) Eosinophils # (Manual) PT INR APTT D-Dimer POC ABG pH POC ABG pCO2 POC ABG pO2 Sodium Potassium Chloride Carbon Dioxide BUN 44 H Creatinine Glucose 148 H POC Glucose 148 H 149 H Lactic Acid Calcium 8.2 L Ionized Calcium Phosphorus Magnesium ALT Alkaline Phosphatase Total Creatine Kinase CK-MB (CK-2) Troponin T C-Reactive Protein Total Protein Albumin Urine WBC (Auto) Urine Creatinine Salicylates Miscellaneous Test Crossmatch 05/28/17 05/28/17 05/28/17 04:00 11:31 17:04 WBC 17.4 H RBC 3.08 L Hgb 9.0 L Hct 27.2 L RDW 17.6 H Plt Count Seg Neuts % (Manual) 75.0 H Lymphocytes % (Manual) 5.0 L Monocytes % (Manual) 10.0 H Nucleated RBC % 2.0 H Seg Neutrophils # Man 13.1 H Lymphocytes # (Manual) 0.9 L Monocytes # (Manual) 1.7 H Eosinophils # (Manual) 0.5 H PT INR APTT D-Dimer POC ABG pH POC ABG pCO2 POC ABG pO2 Sodium Potassium Chloride Carbon Dioxide BUN Creatinine Glucose POC Glucose 205 H 129 H Lactic Acid Calcium Ionized Calcium Phosphorus Magnesium ALT Alkaline Phosphatase Total Creatine Kinase CK-MB (CK-2) Troponin T C-Reactive Protein Total Protein Albumin Urine WBC (Auto) Urine Creatinine Salicylates Miscellaneous Test Crossmatch 05/29/17 05/29/17 05/29/17 00:18 06:30 06:40 WBC RBC Hgb Hct RDW Plt Count Seg Neuts % (Manual) Lymphocytes % (Manual) Monocytes % (Manual) Nucleated RBC % Seg Neutrophils # Man Lymphocytes # (Manual) Monocytes # (Manual) Eosinophils # (Manual) PT INR APTT D-Dimer POC ABG pH POC ABG pCO2 POC ABG pO2 Sodium Potassium Chloride Carbon Dioxide BUN 50 H Creatinine Glucose 145 H POC Glucose 167 H 126 H Lactic Acid Calcium 8.2 L Ionized Calcium Phosphorus Magnesium ALT Alkaline Phosphatase Total Creatine Kinase CK-MB (CK-2) Troponin T C-Reactive Protein Total Protein Albumin Urine WBC (Auto) Urine Creatinine Salicylates Miscellaneous Test Crossmatch 05/29/17 05/29/17 05/29/17 12:10 15:55 23:56 WBC RBC Hgb Hct RDW Plt Count Seg Neuts % (Manual) Lymphocytes % (Manual) Monocytes % (Manual) Nucleated RBC % Seg Neutrophils # Man Lymphocytes # (Manual) Monocytes # (Manual) Eosinophils # (Manual) PT INR APTT D-Dimer POC ABG pH POC ABG pCO2 POC ABG pO2 Sodium Potassium Chloride Carbon Dioxide BUN Creatinine Glucose POC Glucose 189 H 209 H 54 L Lactic Acid Calcium Ionized Calcium Phosphorus Magnesium ALT Alkaline Phosphatase Total Creatine Kinase CK-MB (CK-2) Troponin T C-Reactive Protein Total Protein Albumin Urine WBC (Auto) Urine Creatinine Salicylates Miscellaneous Test Crossmatch 05/30/17 05/30/17 05/31/17 00:40 05:24 07:15 WBC RBC Hgb Hct RDW Plt Count Seg Neuts % (Manual) Lymphocytes % (Manual) Monocytes % (Manual) Nucleated RBC % Seg Neutrophils # Man Lymphocytes # (Manual) Monocytes # (Manual) Eosinophils # (Manual) PT INR APTT D-Dimer POC ABG pH POC ABG pCO2 POC ABG pO2 Sodium Potassium 5.6 H Chloride Carbon Dioxide BUN 52 H 42 H Creatinine Glucose 56 L POC Glucose 163 H Lactic Acid Calcium 8.2 L 8.2 L Ionized Calcium Phosphorus Magnesium ALT Alkaline Phosphatase Total Creatine Kinase CK-MB (CK-2) Troponin T C-Reactive Protein Total Protein Albumin Urine WBC (Auto) Urine Creatinine Salicylates Miscellaneous Test Crossmatch 05/31/17 12:09 WBC RBC Hgb Hct RDW Plt Count Seg Neuts % (Manual) Lymphocytes % (Manual) Monocytes % (Manual) Nucleated RBC % Seg Neutrophils # Man Lymphocytes # (Manual) Monocytes # (Manual) Eosinophils # (Manual) PT INR APTT D-Dimer POC ABG pH POC ABG pCO2 POC ABG pO2 Sodium Potassium Chloride Carbon Dioxide BUN Creatinine Glucose POC Glucose 127 H Lactic Acid Calcium Ionized Calcium Phosphorus Magnesium ALT Alkaline Phosphatase Total Creatine Kinase CK-MB (CK-2) Troponin T C-Reactive Protein Total Protein Albumin Urine WBC (Auto) Urine Creatinine Salicylates Miscellaneous Test Crossmatch
--- NOTE | 2017-05-31 17:35 | Progress Note ---
Assessment and Plan Impression: * Acute kidney injury secondary to ATN * C diff colitis * s/p Colectomy 05/21/17 * s/p Septic shocks * Metabolic acidosis Plan: * s/p HD initiation on 05/18, last treatment on 05/23; no indication for [employer]UT [employer]PER[employer] time * Continue diuresis - change to po diruetics * Replete lytes prn * Avoid potential nephrotoxins * Dose medications for renal function * Strict I/O Subjective Date of service: 05/31/17 Principal diagnosis: Septic shock,C. diff colitis Interval history: Patient has no complaints. Daughter reports that she is not eating. Objective - Vital Signs Vital signs: Vital Signs - 12hr 05/31/17 05/31/17 05/31/17 07:49 08:09 08:20 Temperature 97.8 F Pulse Rate 82 Pulse Rate [ 110 H 115 H Anterior Bilateral Throughout] Respiratory 18 Rate Respiratory 20 20 Rate [Anterior Bilateral Throughout] Blood Pressure 104/51 O2 Sat by Pulse 98 100 Oximetry 05/31/17 05/31/17 05/31/17 13:45 13:55 16:37 Temperature 99.0 F Pulse Rate 115 H Pulse Rate [ 114 H 120 H Anterior Bilateral Throughout] Respiratory 18 Rate Respiratory 20 20 Rate [Anterior Bilateral Throughout] Blood Pressure 88/48 O2 Sat by Pulse 95 Oximetry - General Appearance General appearance: well-developed EENT: ATNC Respiratory: Present: Decreased Breath Sounds Cardiology: regular, S1S2 Gastrointestinal: other (ostomy) Integumentary: no rash Musculoskeletal: other (trace ankle edema) Psychiatric: cooperative - Lab 05/28/17 04:00 05/31/17 07:15 Most recent lab results Calcium 8.2 mg/dL (8.4-10.2) L 05/31/17 07:15 Phosphorus 4.40 mg/dL (2.5-4.5) 05/29/17 06:40 Magnesium 1.70 mg/dL (1.7-2.3) 05/29/17 06:40 Urine Creatinine 28.0 mg/dL (0.1-20.0) H 05/05/17 Unknown Urine Sodium 129 mmol/L 05/05/17 Unknown
[2017-05-31] MEDS: LASIX PO SCH (18:34)
[2017-05-31] MEDS: MORPHINE IV PRN (19:23)
[2017-06-01] MEDS: ALBURX 25% (ALBUMIN) IV SCH ×2 (00:43→09:49)
[2017-06-01] MEDS: BENADRYL IV PRN (00:59)
[2017-06-01 05:28] LABS: Basophils % (Auto) 0.9 % (0.0-1.8); Eosinophils % (Auto) 6.1 % (0.0-4.3); Hematocrit 24.6 % (30.3-42.9); Hemoglobin 7.9 gm/dl (10.1-14.3); Mean Corpuscular HGB Conc 32 % (30-34); Mean Corpuscular Hemoglobin 29 pg (28-32); Mean Corpuscular Volume 89 fl (79-97); Platelet Count 486 K/mm3 (140-440); Red Blood Count 2.76 M/mm3 (3.65-5.03); Red Cell Distribution Width 16.9 % (13.2-15.2)
[2017-06-01] MEDS: NOVOLOG SUB-Q SCH ×3 (06:00→17:00)
[2017-06-01 06:02] LABS: Anion Gap 17 mmol/L; BUN/Creatinine Ratio 39; Blood Urea Nitrogen 35 mg/dL (7-17); Calcium 8.1 mg/dL (8.4-10.2); Carbon Dioxide 30 mmol/L (22-30); Chloride 103.7 mmol/L (98-107); Glucose 67 mg/dL (65-100); Potassium 4.3 mmol/L (3.6-5.0); Sodium 146 mmol/L (137-145)
[2017-06-01] MEDS: LASIX PO SCH (06:23)
[2017-06-01] MEDS: PULMICORT IH SCH ×2 (07:52→20:25)
[2017-06-01] MEDS: DUONEB *Not for PRN Use IH SCH ×3 (07:52→20:25)
[2017-06-01] MEDS: BROVANA NEBU IH SCH ×2 (07:52→20:25)
[2017-06-01] MEDS: PEPCID IV SCH (09:49)
--- NOTE | 2017-06-01 10:51 | Progress Note ---
Assessment and Plan Pt status quo better seal on ostomy bag consider PRBC transfusion. pt low BP & low h/h 7.9/24 surgically stable d/c cally in am Selected Entries 06/01/17 08:06 Temperature 97.5 F L Pulse Rate 109 H Respiratory 18 Rate Blood Pressure 94/55 Laboratory Tests 06/01/17 05:15 WBC 14.0 H Hgb 7.9 L Hct 24.6 L Objective Vital Signs - 12hr 06/01/17 06/01/17 06/01/17 00:20 01:03 01:15 Temperature 97.9 F 97.3 F L 97.3 F L Pulse Rate 101 H 121 H 116 H Respiratory 20 20 20 Rate Blood Pressure 95/49 112/60 111/62 O2 Sat by Pulse Oximetry 06/01/17 06/01/17 07:51 08:06 Temperature 97.5 F L Pulse Rate 109 H Respiratory 18 Rate Blood Pressure 94/55 O2 Sat by Pulse 98 94 Oximetry - Labs 06/01/17 05:15 06/01/17 05:15 Diabetes panel 06/01/17 Range/Units 05:15 Sodium 146 H (137-145) mmol/L Potassium 4.3 (3.6-5.0) mmol/L Chloride 103.7 (98-107) mmol/L Carbon Dioxide 30 (22-30) mmol/L BUN 35 H (7-17) mg/dL Creatinine 0.9 (0.7-1.2) mg/dL Glucose 67 (65-100) mg/dL Calcium 8.1 L (8.4-10.2) mg/dL Calcium panel 06/01/17 Range/Units 05:15 Calcium 8.1 L (8.4-10.2) mg/dL Pituitary panel 06/01/17 Range/Units 05:15 Sodium 146 H (137-145) mmol/L Potassium 4.3 (3.6-5.0) mmol/L Chloride 103.7 (98-107) mmol/L Carbon Dioxide 30 (22-30) mmol/L BUN 35 H (7-17) mg/dL Creatinine 0.9 (0.7-1.2) mg/dL Glucose 67 (65-100) mg/dL Calcium 8.1 L (8.4-10.2) mg/dL Adrenal panel 06/01/17 Range/Units 05:15 Sodium 146 H (137-145) mmol/L Potassium 4.3 (3.6-5.0) mmol/L Chloride 103.7 (98-107) mmol/L Carbon Dioxide 30 (22-30) mmol/L BUN 35 H (7-17) mg/dL Creatinine 0.9 (0.7-1.2) mg/dL Glucose 67 (65-100) mg/dL Calcium 8.1 L (8.4-10.2) mg/dL
--- NOTE | 2017-06-01 12:02 | Progress Note ---
Assessment and Plan Assessment and plan: C. difficile colitis - Patient was treated with flagyl and off flagyl now Sepsis - Patient is off pressors, was treated with meropenem Status post partial colectomy - stoma is draining greenish fluid - Patient tolerated diet - Surgery is following Acute on chronic renal failure, hyperkalemia - Patient renal function is back to baseline - BMP from this morning is pending - Nephrology following COPD exacerbation, acute on chronic respiratory - patient is currently stable Anemia - Hemoglobin dropped from 9 to 7.9 - Patient is tachycardic, BP is borderline and post op, I will give 1 unit of blood DVT prophylaxis Disposition - Patient need rehabilitation placement History Interval history: Patient was seen and evaluated this morning, patient was lying comfortably talking on the phone, no dizziness. Hospitalist Physical - Physical exam Narrative exam: Not in cardiopulmonary distress. The patient appeared well nourished and normally developed. Vital signs as documented. Head exam is unremarkable. No scleral icterus . Neck is without jugular venous distension, thyromegaly, or carotid bruits. Lungs are clear to auscultation. Cardiac exam reveals regular rate and Rhythm. Tachycardia. Abdominal exam stomy draining greenish fluid. Extremities are nonedematous and both femoral and pedal pulses are normal. FINISHER MACHINE: Alert and oriented 3. No focal weakness. - Constitutional Vitals: Temp Pulse Resp BP Pulse Ox 97.5 F L 109 H 18 94/55 94 06/01/17 08:06 06/01/17 08:06 06/01/17 08:06 06/01/17 08:06 06/01/17 08:06 General appearance: Present: no acute distress, mild distress, well-nourished, other (intubatd and vent supported) Results - Labs CBC & Chem 7: 06/01/17 05:15 06/01/17 05:15 Labs: Laboratory Last Values WBC 14.0 K/mm3 (4.5-11.0) H 06/01/17 05:15 RBC 2.76 M/mm3 (3.65-5.03) L 06/01/17 05:15 Hgb 7.9 gm/dl (10.1-14.3) L 06/01/17 05:15 Hct 24.6 % (30.3-42.9) L 06/01/17 05:15 MCV 89 fl (79-97) 06/01/17 05:15 MCH 29 pg (28-32) 06/01/17 05:15 MCHC 32 % (30-34) 06/01/17 05:15 RDW 16.9 % (13.2-15.2) H 06/01/17 05:15 Plt Count 486 K/mm3 (140-440) H 06/01/17 05:15 Lymph % (Auto) 6.9 % (13.4-35.0) L 06/01/17 05:15 Branch % (Auto) 15.6 % (0.0-7.3) H 06/01/17 05:15 Eos % (Auto) 6.1 % (0.0-4.3) H 06/01/17 05:15 Baso % (Auto) 0.9 % (0.0-1.8) 06/01/17 05:15 Lymph # 1.0 K/mm3 (1.2-5.4) L 06/01/17 05:15 Branch # 2.2 K/mm3 (0.0-0.8) H 06/01/17 05:15 Eos # 0.8 K/mm3 (0.0-0.4) H 06/01/17 05:15 Baso # 0.1 K/mm3 (0.0-0.1) 06/01/17 05:15 Add Manual Diff Complete 05/28/17 04:00 Total Counted 100 05/28/17 04:00 Seg Neutrophils % 70.5 % (40.0-70.0) H 06/01/17 05:15 Seg Neuts % (Manual) 75.0 % (40.0-70.0) H 05/28/17 04:00 Band Neutrophils % 7.0 % 05/28/17 04:00 Lymphocytes % (Manual) 5.0 % (13.4-35.0) L 05/28/17 04:00 Reactive Lymphs % (Man) 0 % 05/28/17 04:00 Monocytes % (Manual) 10.0 % (0.0-7.3) H 05/28/17 04:00 Eosinophils % (Manual) 3.0 % (0.0-4.3) 05/28/17 04:00 Basophils % (Manual) 0 % (0.0-1.8) 05/28/17 04:00 Metamyelocytes % 0 % 05/28/17 04:00 Myelocytes % 0 % 05/28/17 04:00 Promyelocytes % 0 % 05/28/17 04:00 Blast Cells % 0 % 05/28/17 04:00 Nucleated RBC % 2.0 % (0.0-0.9) H 05/28/17 04:00 Seg Neutrophils # 9.8 K/mm3 (1.8-7.7) H 06/01/17 05:15 Seg Neutrophils # Man 13.1 K/mm3 (1.8-7.7) H 05/28/17 04:00 Band Neutrophils # 1.2 K/mm3 05/28/17 04:00 Lymphocytes # (Manual) 0.9 K/mm3 (1.2-5.4) L 05/28/17 04:00 Abs React Lymphs (Man) 0.0 K/mm3 05/28/17 04:00 Monocytes # (Manual) 1.7 K/mm3 (0.0-0.8) H 05/28/17 04:00 Eosinophils # (Manual) 0.5 K/mm3 (0.0-0.4) H 05/28/17 04:00 Basophils # (Manual) 0.0 K/mm3 (0.0-0.1) 05/28/17 04:00 Metamyelocytes # 0.0 K/mm3 05/28/17 04:00 Myelocytes # 0.0 K/mm3 05/28/17 04:00 Promyelocytes # 0.0 K/mm3 05/28/17 04:00 Blast Cells # 0.0 K/mm3 05/28/17 04:00 WBC Morphology Not Reportable 05/28/17 04:00 Hypersegmented Neuts Not Reportable 05/28/17 04:00 Hyposegmented Neuts Not Reportable 05/28/17 04:00 Hypogranular Neuts Not Reportable 05/28/17 04:00 Smudge Cells Not Reportable 05/28/17 04:00 Toxic Granulation Not Reportable 05/28/17 04:00 Toxic Vacuolation Not Reportable 05/28/17 04:00 Dohle Bodies Not Reportable 05/28/17 04:00 Pelger-Huet Anomaly Not Reportable 05/28/17 04:00 Neisha Rods Not Reportable 05/28/17 04:00 Platelet Estimate Consistent w auto 05/28/17 04:00 Clumped Platelets Not Reportable 05/28/17 04:00 Plt Clumps, EDTA Not Reportable 05/28/17 04:00 Large Platelets Not Reportable 05/28/17 04:00 Giant Platelets Not Reportable 05/28/17 04:00 Platelet Satelliting Not Reportable 05/28/17 04:00 Plt Morphology Comment Not Reportable 05/28/17 04:00 RBC Morphology Not Reportable 05/28/17 04:00 Dimorphic RBCs Not Reportable 05/28/17 04:00 Polychromasia 1+ 05/28/17 04:00 Hypochromasia Not Reportable 05/28/17 04:00 Poikilocytosis Not Reportable 05/28/17 04:00 Anisocytosis 1+ 05/28/17 04:00 Microcytosis Not Reportable 05/28/17 04:00 Macrocytosis 1+ 05/28/17 04:00 Spherocytes Not Reportable 05/28/17 04:00 Pappenheimer Bodies Not Reportable 05/28/17 04:00 Sickle Cells Not Reportable 05/28/17 04:00 Target Cells Few 05/28/17 04:00 Tear Drop Cells Not Reportable 05/28/17 04:00 Ovalocytes Not Reportable 05/28/17 04:00 Stomatocytes Few 05/21/17 05:20 Helmet Cells Not Reportable 05/28/17 04:00 [place] Bodies Not Reportable 05/28/17 04:00 [place] Rings Not Reportable 05/28/17 04:00 [place] Cells Not Reportable 05/28/17 04:00 Bite Cells Not Reportable 05/28/17 04:00 Crenated Cell Not Reportable 05/28/17 04:00 Elliptocytes Not Reportable 05/28/17 04:00 Acanthocytes (Spur) Not Reportable 05/28/17 04:00 Rouleaux Not Reportable 05/28/17 04:00 Hemoglobin C Crystals Not Reportable 05/28/17 04:00 Schistocytes Not Reportable 05/28/17 04:00 Malaria parasites Not Reportable 05/28/17 04:00 Herve Bodies Not Reportable 05/28/17 04:00 Hem Pathologist Commnt No 05/28/17 04:00 PT 21.3 Sec. (12.2-14.9) H 05/22/17 04:50 INR 1.75 (0.87-1.13) H 05/22/17 04:50 APTT 39.4 Sec. (24.2-36.6) H 05/22/17 04:50 D-Dimer 8441.57 ng/mlDDU (0-234) H 05/04/17 Unknown POC ABG pH 7.424 (7.35-7.45) 05/26/17 09:49 POC ABG pCO2 44.1 (35-45) 05/26/17 09:49 POC ABG pO2 89 (80-105) 05/26/17 09:49 POC ABG HCO3 28.9 05/26/17 09:49 POC ABG Total CO2 30 05/26/17 09:49 POC ABG O2 Sat 97 05/26/17 09:49 POC ABG Base Excess 4 05/26/17 09:49 FiO2 25 % 05/26/17 09:49 Sodium 146 mmol/L (137-145) H 06/01/17 05:15 Potassium 4.3 mmol/L (3.6-5.0) 06/01/17 05:15 Chloride 103.7 mmol/L (98-107) 06/01/17 05:15 Carbon Dioxide 30 mmol/L (22-30) 06/01/17 05:15 Anion Gap 17 mmol/L 06/01/17 05:15 BUN 35 mg/dL (7-17) H 06/01/17 05:15 Creatinine 0.9 mg/dL (0.7-1.2) 06/01/17 05:15 Estimated GFR > 60 ml/min 06/01/17 05:15 BUN/Creatinine Ratio 39 % 06/01/17 05:15 Glucose 67 mg/dL (65-100) 06/01/17 05:15 POC Glucose 65 (70-105) L 06/01/17 06:26 Lactic Acid 0.60 mmol/L (0.7-2.0) L 05/16/17 00:15 Calcium 8.1 mg/dL (8.4-10.2) L 06/01/17 05:15 Ionized Calcium 3.5 mg/dL (4.8-5.6) L 05/05/17 17:45 Phosphorus 4.40 mg/dL (2.5-4.5) 05/29/17 06:40 Magnesium 1.70 mg/dL (1.7-2.3) 05/29/17 06:40 Total Bilirubin 0.30 mg/dL (0.1-1.2) 05/26/17 07:15 AST 9 units/L (5-40) 05/26/17 07:15 ALT < 5 units/L (7-56) L 05/26/17 07:15 Alkaline Phosphatase 41 units/L (35-129) 05/26/17 07:15 Total Creatine Kinase 346 units/L (30-135) H 05/05/17 05:20 CK-MB (CK-2) 8.2 ng/mL (0.0-4.0) H 05/05/17 05:20 CK-MB (CK-2) Rel Index 2.3 (0-4) 05/05/17 05:20 Troponin T 0.027 ng/mL (0.00-0.029) 05/05/17 05:20 C-Reactive Protein 7.10 mg/dL (0.00-1.30) H 05/23/17 16:55 Total Protein 4.0 g/dL (6.3-8.2) L 05/26/17 07:15 Albumin 2.3 g/dL (3.9-5) L 05/26/17 07:15 Albumin/Globulin Ratio 1.4 % 05/26/17 07:15 Triglycerides 149 mg/dL (2-149) 05/04/17 18:55 Cholesterol 185 mg/dL (50-199) 05/04/17 18:55 LDL Cholesterol Direct 103 mg/dL (50-130) 05/04/17 18:55 HDL Cholesterol 53 mg/dL (40-59) 05/04/17 18:55 Cholesterol/HDL Ratio 3.49 % 05/04/17 18:55 TSH 1.780 mlU/mL (0.270-4.200) 05/04/17 18:39 Urine Color Yellow (Yellow) 05/19/17 18:04 Urine Turbidity Clear (Clear) 05/19/17 18:04 Urine pH 5.0 (5.0-7.0) 05/19/17 18:04 Ur Specific [place] 1.014 (1.003-1.030) 05/19/17 18:04 Urine Protein 30 mg/dl mg/dL (Negative) 05/19/17 18:04 Urine Glucose (UA) Neg mg/dL (Negative) 05/19/17 18:04 Urine Ketones Neg mg/dL (Negative) 05/19/17 18:04 Urine Blood Mod (Negative) 05/19/17 18:04 Urine Nitrite Neg (Negative) 05/19/17 18:04 Urine Bilirubin Neg (Negative) 05/19/17 18:04 Urine Urobilinogen < 2.0 mg/dL (<2.0) 05/19/17 18:04 Ur Leukocyte Esterase Lg (Negative) 05/19/17 18:04 Urine WBC (Auto) 78.0 /HPF (0.0-6.0) H 05/19/17 18:04 Urine RBC (Auto) 90.0 /HPF (0.0-6.0) 05/19/17 18:04 U Epithel Cells (Auto) < 1.0 /HPF (0-13.0) 05/19/17 18:04 Urine Bacteria (Auto) 2+ /HPF (Negative) 05/19/17 18:04 Amorphous Crystals Few 05/11/17 17:50 Hyaline Casts 3 /LPF 05/19/17 18:04 Granular Casts 1 /LPF 05/19/17 18:04 Urine Mucus Few /HPF 05/19/17 18:04 Ur Yeast w Hyphae Few /HPF 05/19/17 18:04 Urine Yeast (Budding) 3+ /HPF 05/19/17 18:04 Urine Creatinine 28.0 mg/dL (0.1-20.0) H 05/05/17 Unknown Urine Sodium 129 mmol/L 05/05/17 Unknown Urine Potassium 3.67 mmol/L 05/05/17 Unknown Urine Chloride 115.6 mmolL (110-250) 05/05/17 Unknown Salicylates 0.3 mg/dL (2.8-20.0) L 05/04/17 18:39 Urine Opiates Screen Presumptive negative 05/04/17 02:20 Urine Methadone Screen Presumptive negative 05/04/17 02:20 Acetaminophen < 15.0 ug/mL (10.0-30.0) 05/04/17 18:39 Ur Barbiturates Screen Presumptive negative 05/04/17 02:20 Ur Phencyclidine Scrn Presumptive negative 05/04/17 02:20 Ur Amphetamines Screen Presumptive negative 05/04/17 02:20 U Benzodiazepines Scrn Presumptive negative 05/04/17 02:20 Urine Cocaine Screen Presumptive negative 05/04/17 02:20 U Marijuana (THC) Screen Presumptive negative 05/04/17 02:20 Drugs of Abuse Note Disclamer 05/04/17 02:20 Plasma/Serum Alcohol < 0.01 gm% (0-0.07) 05/04/17 18:39 Hepatitis A IgM Ab Non-reactive (NonReactive) 05/20/17 17:49 Hep Bs Antigen Non-reactive (Negative) 05/20/17 17:49 Hep B Core IgM Ab Non-reactive (NonReactive) 05/20/17 17:49 Hepatitis C Antibody Non-reactive (NonReactive) 05/20/17 17:49 Miscellaneous Test Flexitest 1 H 05/17/17 12:20 Blood Type AB POSITIVE 05/26/17 10:50 Antibody Screen Negative 05/26/17 10:50 Crossmatch See Detail 05/26/17 10:50
[2017-06-01] MEDS ORDERED: NACL 0.9% 500 ML 500 ML IV SCH (12:03)
--- NOTE | 2017-06-01 12:34 | Progress Note ---
Assessment and Plan Impression: * Acute kidney injury secondary to ATN; previously on HD * C diff colitis --s/p Colectomy 05/21/17 * s/p Septic shock * Metabolic acidosis * Anemia * COPD (patient reports use of oxygen at home) Plan: * s/p HD initiation on 05/18, last treatment on 05/23; no indication for SKILLED HELPER time * Continue Lasix - decrease to 20mg po daily * Replete lytes prn * Transfusion per primary team * Avoid potential nephrotoxins * Dose medications for renal function * Strict I/O Subjective Date of service: 06/01/17 Principal diagnosis: Septic shock,C. diff colitis Interval history: Patient denies SOB. Objective - Vital Signs Vital signs: Vital Signs - 12hr 06/01/17 06/01/17 06/01/17 01:03 01:15 07:51 Temperature 97.3 F L 97.3 F L Pulse Rate 121 H 116 H Respiratory 20 20 Rate Blood Pressure 112/60 111/62 O2 Sat by Pulse 98 Oximetry 06/01/17 08:06 Temperature 97.5 F L Pulse Rate 109 H Respiratory 18 Rate Blood Pressure 94/55 O2 Sat by Pulse 94 Oximetry - General Appearance General appearance: well-developed, chronically ill, frail EENT: ATNC Respiratory: Present: Clear to Ascultation Cardiology: regular, S1S2 Gastrointestinal: other (ostomy) Integumentary: no rash Musculoskeletal: other (1+ ankle edema) Psychiatric: cooperative - Lab 06/01/17 05:15 06/01/17 05:15 Most recent lab results Calcium 8.1 mg/dL (8.4-10.2) L 06/01/17 05:15 Phosphorus 4.40 mg/dL (2.5-4.5) 05/29/17 06:40 Magnesium 1.70 mg/dL (1.7-2.3) 05/29/17 06:40 Urine Creatinine 28.0 mg/dL (0.1-20.0) H 05/05/17 Unknown Urine Sodium 129 mmol/L 05/05/17 Unknown
--- NOTE | 2017-06-01 12:46 | Progress Note ---
Assessment and Plan 61 y/o female with severe C. Diff colitis, sepsis with shock and now encephalopathy, likely metabolic requiring mechanical ventilation. 1. Wean FiO2 as tolerated, sats >88% are acceptable 2. PT/OT Will sign off. Call if questions or further needs. Subjective Date of service: 06/01/17 Principal diagnosis: Septic shock,C. diff colitis Interval history: No acute events. Breathing remains stable. Sats well on nasal cannula Objective Vital Signs - 12hr 06/01/17 06/01/17 06/01/17 01:03 01:15 07:51 Temperature 97.3 F L 97.3 F L Pulse Rate 121 H 116 H Respiratory 20 20 Rate Blood Pressure 112/60 111/62 O2 Sat by Pulse 98 Oximetry 06/01/17 08:06 Temperature 97.5 F L Pulse Rate 109 H Respiratory 18 Rate Blood Pressure 94/55 O2 Sat by Pulse 94 Oximetry Constitutional: no acute distress, alert Eyes: non-icteric ENT: oropharynx moist Neck: supple Effort: normal Ascultation: Bilateral: clear (anterior), diminished breath sounds, wheezes ( mild), rales, other (coarse BS bilaterally) Percussion: Bilateral: not dull Cardiovascular: regular rate and rhythm (no mrg) Gastrointestinal: hypoactive bowel sounds, tender, other (distended, ostomy looks good with some liquid stool in bag, brown + old blood) Integumentary: normal Extremities: no cyanosis, pink and warm, anasarca (1+ bilateral LE edema) Neurologic: normal mental status, non-focal exam, pupils equal and round, CN II- XII normal Psychiatric: mood appropriate, affect normal CBC and BMP: 06/01/17 05:15 06/01/17 05:15 ABG, PT/INR, D-dimer: ABG POC ABG pH 7.424 (7.35-7.45) 05/26/17 09:49 POC ABG pCO2 44.1 (35-45) 05/26/17 09:49 POC ABG pO2 89 (80-105) 05/26/17 09:49 POC ABG HCO3 28.9 05/26/17 09:49 POC ABG Total CO2 30 05/26/17 09:49 POC ABG O2 Sat 97 05/26/17 09:49 PT/INR, D-dimer PT 21.3 Sec. (12.2-14.9) H 05/22/17 04:50 INR 1.75 (0.87-1.13) H 05/22/17 04:50 D-Dimer 8441.57 ng/mlDDU (0-234) H 05/04/17 Unknown Abnormal lab findings: Abnormal Labs 05/04/17 05/04/17 05/04/17 02:20 18:39 18:39 WBC 24.3 H RBC Hgb Hct RDW 16.4 H Plt Count 658 H Lymph % (Auto) Anderson % (Auto) Eos % (Auto) Lymph # Anderson # Eos # Seg Neutrophils % Seg Neuts % (Manual) 94.5 H Lymphocytes % (Manual) 2.5 L Monocytes % (Manual) Nucleated RBC % Seg Neutrophils # Seg Neutrophils # Man 23.0 H Lymphocytes # (Manual) 0.6 L Monocytes # (Manual) Eosinophils # (Manual) PT INR APTT D-Dimer POC ABG pH POC ABG pCO2 POC ABG pO2 Sodium Potassium 3.2 L Chloride 92.6 L Carbon Dioxide 14 L BUN 66 H Creatinine 6.5 H Glucose POC Glucose Lactic Acid Calcium 7.5 L Ionized Calcium Phosphorus Magnesium ALT 5 L Alkaline Phosphatase 32 L Total Creatine Kinase CK-MB (CK-2) Troponin T C-Reactive Protein Total Protein 5.4 L Albumin 3.0 L Urine WBC (Auto) 100.0 H Urine Creatinine Salicylates Miscellaneous Test Crossmatch 05/04/17 05/04/17 05/04/17 18:39 18:55 Unknown WBC RBC Hgb Hct RDW Plt Count Lymph % (Auto) Anderson % (Auto) Eos % (Auto) Lymph # Anderson # Eos # Seg Neutrophils % Seg Neuts % (Manual) Lymphocytes % (Manual) Monocytes % (Manual) Nucleated RBC % Seg Neutrophils # Seg Neutrophils # Man Lymphocytes # (Manual) Monocytes # (Manual) Eosinophils # (Manual) PT INR APTT D-Dimer POC ABG pH POC ABG pCO2 POC ABG pO2 Sodium Potassium Chloride Carbon Dioxide BUN Creatinine Glucose POC Glucose Lactic Acid 0.40 L Calcium Ionized Calcium Phosphorus Magnesium ALT Alkaline Phosphatase Total Creatine Kinase 155 H CK-MB (CK-2) 4.5 H Troponin T 0.033 H C-Reactive Protein Total Protein Albumin Urine WBC (Auto) Urine Creatinine Salicylates 0.3 L Miscellaneous Test Crossmatch 05/04/17 05/04/17 05/04/17 Unknown Unknown Unknown WBC RBC Hgb Hct RDW Plt Count Lymph % (Auto) Anderson % (Auto) Eos % (Auto) Lymph # Anderson # Eos # Seg Neutrophils % Seg Neuts % (Manual) Lymphocytes % (Manual) Monocytes % (Manual) Nucleated RBC % Seg Neutrophils # Seg Neutrophils # Man Lymphocytes # (Manual) Monocytes # (Manual) Eosinophils # (Manual) PT INR APTT D-Dimer 8441.57 H POC ABG pH POC ABG pCO2 POC ABG pO2 Sodium Potassium Chloride Carbon Dioxide BUN Creatinine Glucose POC Glucose Lactic Acid 0.40 L Calcium Ionized Calcium Phosphorus Magnesium ALT Alkaline Phosphatase Total Creatine Kinase 246 H CK-MB (CK-2) 6.2 H Troponin T C-Reactive Protein Total Protein Albumin Urine WBC (Auto) Urine Creatinine Salicylates Miscellaneous Test Crossmatch 05/05/17 05/05/17 05/05/17 05:20 05:20 05:20 WBC 33.9 H RBC 3.39 L Hgb 9.3 L Hct RDW 16.7 H Plt Count 712 H Lymph % (Auto) Anderson % (Auto) Eos % (Auto) Lymph # Anderson # Eos # Seg Neutrophils % Seg Neuts % (Manual) 91.0 H Lymphocytes % (Manual) 1.0 L Monocytes % (Manual) Nucleated RBC % Seg Neutrophils # Seg Neutrophils # Man 30.8 H Lymphocytes # (Manual) 0.3 L Monocytes # (Manual) 1.5 H Eosinophils # (Manual) PT INR APTT D-Dimer POC ABG pH POC ABG pCO2 POC ABG pO2 Sodium Potassium Chloride Carbon Dioxide 9 L* BUN 53 H Creatinine 5.4 H Glucose POC Glucose Lactic Acid Calcium 6.1 L D Ionized Calcium Phosphorus Magnesium ALT Alkaline Phosphatase Total Creatine Kinase 346 H CK-MB (CK-2) 8.2 H Troponin T C-Reactive Protein Total Protein Albumin Urine WBC (Auto) Urine Creatinine Salicylates Miscellaneous Test Crossmatch 05/05/17 05/05/17 05/05/17 10:43 17:45 17:45 WBC RBC Hgb 8.8 L Hct RDW Plt Count Lymph % (Auto) Anderson % (Auto) Eos % (Auto) Lymph # Anderson # Eos # Seg Neutrophils % Seg Neuts % (Manual) Lymphocytes % (Manual) Monocytes % (Manual) Nucleated RBC % Seg Neutrophils # Seg Neutrophils # Man Lymphocytes # (Manual) Monocytes # (Manual) Eosinophils # (Manual) PT INR APTT D-Dimer POC ABG pH 6.872 L POC ABG pCO2 POC ABG pO2 120 H Sodium Potassium Chloride Carbon Dioxide BUN Creatinine Glucose POC Glucose Lactic Acid Calcium Ionized Calcium 3.5 L Phosphorus Magnesium ALT Alkaline Phosphatase Total Creatine Kinase CK-MB (CK-2) Troponin T C-Reactive Protein Total Protein Albumin Urine WBC (Auto) Urine Creatinine Salicylates Miscellaneous Test Crossmatch 05/05/17 05/05/17 05/05/17 17:45 20:58 Unknown WBC RBC Hgb 9.0 L Hct 29.8 L RDW Plt Count Lymph % (Auto) Anderson % (Auto) Eos % (Auto) Lymph # Anderson # Eos # Seg Neutrophils % Seg Neuts % (Manual) Lymphocytes % (Manual) Monocytes % (Manual) Nucleated RBC % Seg Neutrophils # Seg Neutrophils # Man Lymphocytes # (Manual) Monocytes # (Manual) Eosinophils # (Manual) PT INR APTT D-Dimer POC ABG pH POC ABG pCO2 POC ABG pO2 Sodium Potassium Chloride Carbon Dioxide BUN Creatinine Glucose POC Glucose Lactic Acid Calcium Ionized Calcium Phosphorus 6.20 H Magnesium 1.20 L ALT Alkaline Phosphatase Total Creatine Kinase CK-MB (CK-2) Troponin T C-Reactive Protein Total Protein Albumin Urine WBC (Auto) Urine Creatinine 28.0 H Salicylates Miscellaneous Test Crossmatch 05/06/17 05/06/17 05/06/17 05:09 05:23 07:55 WBC RBC Hgb Hct RDW Plt Count Lymph % (Auto) Anderson % (Auto) Eos % (Auto) Lymph # Anderson # Eos # Seg Neutrophils % Seg Neuts % (Manual) Lymphocytes % (Manual) Monocytes % (Manual) Nucleated RBC % Seg Neutrophils # Seg Neutrophils # Man Lymphocytes # (Manual) Monocytes # (Manual) Eosinophils # (Manual) PT INR APTT D-Dimer POC ABG pH 7.029 L 7.060 L POC ABG pCO2 54.8 H 48.6 H POC ABG pO2 74 L 43 L Sodium Potassium 3.5 L Chloride Carbon Dioxide 18 L D BUN 44 H Creatinine 3.5 H Glucose 252 H POC Glucose Lactic Acid Calcium 5.8 L* Ionized Calcium Phosphorus Magnesium ALT Alkaline Phosphatase Total Creatine Kinase CK-MB (CK-2) Troponin T C-Reactive Protein Total Protein Albumin Urine WBC (Auto) Urine Creatinine Salicylates Miscellaneous Test Crossmatch 05/06/17 05/06/17 05/06/17 07:55 15:28 17:30 WBC RBC Hgb Hct RDW Plt Count Lymph % (Auto) Anderson % (Auto) Eos % (Auto) Lymph # Anderson # Eos # Seg Neutrophils % Seg Neuts % (Manual) Lymphocytes % (Manual) Monocytes % (Manual) Nucleated RBC % Seg Neutrophils # Seg Neutrophils # Man Lymphocytes # (Manual) Monocytes # (Manual) Eosinophils # (Manual) PT INR APTT D-Dimer POC ABG pH 7.066 L POC ABG pCO2 80.9 H POC ABG pO2 65 L Sodium Potassium Chloride Carbon Dioxide BUN Creatinine Glucose POC Glucose Lactic Acid Calcium Ionized Calcium Phosphorus Magnesium ALT Alkaline Phosphatase Total Creatine Kinase CK-MB (CK-2) Troponin T C-Reactive Protein 14.50 H Total Protein Albumin Urine WBC (Auto) Urine Creatinine Salicylates Miscellaneous Test Flexitest 1 H Crossmatch 05/06/17 05/06/17 05/07/17 17:30 Unknown 10:18 WBC 39.2 H 32.9 H RBC 3.27 L Hgb 9.3 L Hct 30.2 L RDW 16.4 H 17.0 H Plt Count 645 H 467 H Lymph % (Auto) Anderson % (Auto) Eos % (Auto) Lymph # Anderson # Eos # Seg Neutrophils % Seg Neuts % (Manual) Lymphocytes % (Manual) 11.0 L Monocytes % (Manual) Nucleated RBC % Seg Neutrophils # Seg Neutrophils # Man 21.2 H Lymphocytes # (Manual) Monocytes # (Manual) 2.0 H Eosinophils # (Manual) PT INR APTT D-Dimer POC ABG pH POC ABG pCO2 POC ABG pO2 Sodium Potassium 3.4 L Chloride Carbon Dioxide BUN 41 H Creatinine 3.2 H Glucose 265 H POC Glucose Lactic Acid Calcium 6.7 L D Ionized Calcium Phosphorus Magnesium ALT Alkaline Phosphatase Total Creatine Kinase CK-MB (CK-2) Troponin T C-Reactive Protein Total Protein Albumin Urine WBC (Auto) Urine Creatinine Salicylates Miscellaneous Test Crossmatch 05/07/17 05/07/17 05/08/17 11:32 12:36 05:45 WBC 31.1 H RBC 3.41 L Hgb 9.8 L Hct RDW 16.9 H Plt Count Lymph % (Auto) Anderson % (Auto) Eos % (Auto) Lymph # Anderson # Eos # Seg Neutrophils % Seg Neuts % (Manual) 96.0 H Lymphocytes % (Manual) 1.0 L Monocytes % (Manual) Nucleated RBC % Seg Neutrophils # Seg Neutrophils # Man 29.9 H Lymphocytes # (Manual) 0.3 L Monocytes # (Manual) Eosinophils # (Manual) PT INR APTT D-Dimer POC ABG pH 7.290 L POC ABG pCO2 48.3 H POC ABG pO2 51 L Sodium 146 H Potassium 3.1 L Chloride 109.2 H Carbon Dioxide 20 L BUN 38 H Creatinine 2.7 H Glucose 213 H POC Glucose Lactic Acid Calcium 6.6 L Ionized Calcium Phosphorus Magnesium ALT Alkaline Phosphatase Total Creatine Kinase CK-MB (CK-2) Troponin T C-Reactive Protein Total Protein Albumin Urine WBC (Auto) Urine Creatinine Salicylates Miscellaneous Test Crossmatch 05/08/17 05/08/17 05/09/17 05:45 18:55 04:05 WBC 26.1 H RBC Hgb Hct RDW 17.6 H Plt Count Lymph % (Auto) Anderson % (Auto) Eos % (Auto) Lymph # Anderson # Eos # Seg Neutrophils % Seg Neuts % (Manual) Lymphocytes % (Manual) 5.0 L Monocytes % (Manual) Nucleated RBC % Seg Neutrophils # Seg Neutrophils # Man 16.7 H Lymphocytes # (Manual) Monocytes # (Manual) Eosinophils # (Manual) PT INR APTT D-Dimer POC ABG pH POC ABG pCO2 POC ABG pO2 Sodium 150 H Potassium Chloride 115.4 H 112.2 H Carbon Dioxide 20 L 18 L BUN 39 H 45 H Creatinine 2.4 H 2.3 H Glucose 160 H 219 H POC Glucose Lactic Acid Calcium 6.6 L 7.2 L Ionized Calcium Phosphorus Magnesium 1.40 L ALT 6 L Alkaline Phosphatase Total Creatine Kinase CK-MB (CK-2) Troponin T C-Reactive Protein Total Protein 4.1 L D Albumin 2.0 L Urine WBC (Auto) Urine Creatinine Salicylates Miscellaneous Test Crossmatch 05/09/17 05/09/17 05/09/17 04:05 05:15 05:45 WBC RBC Hgb Hct RDW Plt Count Lymph % (Auto) Anderson % (Auto) Eos % (Auto) Lymph # Anderson # Eos # Seg Neutrophils % Seg Neuts % (Manual) Lymphocytes % (Manual) Monocytes % (Manual) Nucleated RBC % Seg Neutrophils # Seg Neutrophils # Man Lymphocytes # (Manual) Monocytes # (Manual) Eosinophils # (Manual) PT INR APTT D-Dimer POC ABG pH POC ABG pCO2 POC ABG pO2 Sodium 130 L D Potassium 3.4 L D Chloride 94.6 L Carbon Dioxide 19 L BUN 39 H Creatinine 2.1 H Glucose 549 H* 189 H POC Glucose 181 H Lactic Acid Calcium 6.6 L Ionized Calcium Phosphorus Magnesium ALT 6 L Alkaline Phosphatase 31 L Total Creatine Kinase CK-MB (CK-2) Troponin T C-Reactive Protein Total Protein 3.5 L Albumin 2.0 L Urine WBC (Auto) Urine Creatinine Salicylates Miscellaneous Test Crossmatch 05/09/17 05/09/17 05/09/17 08:03 11:08 16:15 WBC RBC Hgb Hct RDW Plt Count Lymph % (Auto) Anderson % (Auto) Eos % (Auto) Lymph # Anderson # Eos # Seg Neutrophils % Seg Neuts % (Manual) Lymphocytes % (Manual) Monocytes % (Manual) Nucleated RBC % Seg Neutrophils # Seg Neutrophils # Man Lymphocytes # (Manual) Monocytes # (Manual) Eosinophils # (Manual) PT INR APTT D-Dimer POC ABG pH POC ABG pCO2 POC ABG pO2 Sodium Potassium Chloride 107.8 H Carbon Dioxide 21 L BUN 43 H Creatinine 2.4 H Glucose 195 H POC Glucose 299 H 111 H Lactic Acid Calcium 7.1 L Ionized Calcium Phosphorus Magnesium ALT Alkaline Phosphatase Total Creatine Kinase CK-MB (CK-2) Troponin T C-Reactive Protein Total Protein 3.9 L Albumin 2.3 L Urine WBC (Auto) Urine Creatinine Salicylates Miscellaneous Test Crossmatch 05/09/17 05/10/17 05/10/17 23:05 05:00 05:00 WBC 20.9 H RBC 3.53 L Hgb Hct RDW 17.3 H Plt Count Lymph % (Auto) Anderson % (Auto) Eos % (Auto) Lymph # Anderson # Eos # Seg Neutrophils % Seg Neuts % (Manual) 72.0 H Lymphocytes % (Manual) 8.0 L Monocytes % (Manual) Nucleated RBC % Seg Neutrophils # Seg Neutrophils # Man 15.0 H Lymphocytes # (Manual) Monocytes # (Manual) Eosinophils # (Manual) PT INR APTT D-Dimer POC ABG pH POC ABG pCO2 POC ABG pO2 Sodium 135 L D Potassium 3.2 L Chloride Carbon Dioxide 21 L BUN 45 H Creatinine 2.2 H Glucose 308 H POC Glucose 336 H Lactic Acid Calcium 7.1 L Ionized Calcium Phosphorus Magnesium ALT 5 L Alkaline Phosphatase 30 L Total Creatine Kinase CK-MB (CK-2) Troponin T C-Reactive Protein Total Protein 3.8 L Albumin 2.1 L Urine WBC (Auto) Urine Creatinine Salicylates Miscellaneous Test Crossmatch 05/10/17 05/10/17 05/10/17 07:28 11:36 16:03 WBC RBC Hgb Hct RDW Plt Count Lymph % (Auto) Anderson % (Auto) Eos % (Auto) Lymph # Anderson # Eos # Seg Neutrophils % Seg Neuts % (Manual) Lymphocytes % (Manual) Monocytes % (Manual) Nucleated RBC % Seg Neutrophils # Seg Neutrophils # Man Lymphocytes # (Manual) Monocytes # (Manual) Eosinophils # (Manual) PT INR APTT D-Dimer POC ABG pH POC ABG pCO2 POC ABG pO2 Sodium Potassium Chloride Carbon Dioxide BUN Creatinine Glucose POC Glucose 154 H 184 H 162 H Lactic Acid Calcium Ionized Calcium Phosphorus Magnesium ALT Alkaline Phosphatase Total Creatine Kinase CK-MB (CK-2) Troponin T C-Reactive Protein Total Protein Albumin Urine WBC (Auto) Urine Creatinine Salicylates Miscellaneous Test Crossmatch 05/10/17 05/11/17 05/11/17 21:13 06:50 06:50 WBC 24.4 H RBC Hgb Hct RDW 17.4 H Plt Count Lymph % (Auto) Anderson % (Auto) Eos % (Auto) Lymph # Anderson # Eos # Seg Neutrophils % Seg Neuts % (Manual) Lymphocytes % (Manual) 5.0 L Monocytes % (Manual) Nucleated RBC % Seg Neutrophils # Seg Neutrophils # Man 16.3 H Lymphocytes # (Manual) Monocytes # (Manual) 1.0 H Eosinophils # (Manual) PT INR APTT D-Dimer POC ABG pH POC ABG pCO2 POC ABG pO2 Sodium Potassium 3.4 L Chloride Carbon Dioxide BUN 50 H Creatinine 2.8 H Glucose 131 H POC Glucose 188 H Lactic Acid Calcium 7.6 L Ionized Calcium Phosphorus Magnesium ALT < 5 L Alkaline Phosphatase 25 L Total Creatine Kinase CK-MB (CK-2) Troponin T C-Reactive Protein Total Protein 3.6 L Albumin 2.0 L Urine WBC (Auto) Urine Creatinine Salicylates Miscellaneous Test Crossmatch 05/11/17 05/11/17 05/11/17 09:33 11:45 15:46 WBC RBC Hgb Hct RDW Plt Count Lymph % (Auto) Anderson % (Auto) Eos % (Auto) Lymph # Anderson # Eos # Seg Neutrophils % Seg Neuts % (Manual) Lymphocytes % (Manual) Monocytes % (Manual) Nucleated RBC % Seg Neutrophils # Seg Neutrophils # Man Lymphocytes # (Manual) Monocytes # (Manual) Eosinophils # (Manual) PT INR APTT D-Dimer POC ABG pH POC ABG pCO2 POC ABG pO2 Sodium Potassium Chloride Carbon Dioxide BUN Creatinine Glucose POC Glucose 140 H 157 H 137 H Lactic Acid Calcium Ionized Calcium Phosphorus Magnesium ALT Alkaline Phosphatase Total Creatine Kinase CK-MB (CK-2) Troponin T C-Reactive Protein Total Protein Albumin Urine WBC (Auto) Urine Creatinine Salicylates Miscellaneous Test Crossmatch 05/11/17 05/11/17 05/12/17 17:50 20:58 05:00 WBC 23.1 H RBC 3.59 L Hgb Hct RDW 17.1 H Plt Count Lymph % (Auto) Anderson % (Auto) Eos % (Auto) Lymph # Anderson # Eos # Seg Neutrophils % Seg Neuts % (Manual) 94.0 H Lymphocytes % (Manual) 0 L Monocytes % (Manual) Nucleated RBC % Seg Neutrophils # Seg Neutrophils # Man 21.7 H Lymphocytes # (Manual) 0.0 L Monocytes # (Manual) Eosinophils # (Manual) PT INR APTT D-Dimer POC ABG pH POC ABG pCO2 POC ABG pO2 Sodium Potassium Chloride Carbon Dioxide BUN Creatinine Glucose POC Glucose 155 H Lactic Acid Calcium Ionized Calcium Phosphorus Magnesium ALT Alkaline Phosphatase Total Creatine Kinase CK-MB (CK-2) Troponin T C-Reactive Protein Total Protein Albumin Urine WBC (Auto) 27.0 H Urine Creatinine Salicylates Miscellaneous Test Crossmatch 05/12/17 05/12/17 05/12/17 05:00 08:28 11:28 WBC RBC Hgb Hct RDW Plt Count Lymph % (Auto) Anderson % (Auto) Eos % (Auto) Lymph # Anderson # Eos # Seg Neutrophils % Seg Neuts % (Manual) Lymphocytes % (Manual) Monocytes % (Manual) Nucleated RBC % Seg Neutrophils # Seg Neutrophils # Man Lymphocytes # (Manual) Monocytes # (Manual) Eosinophils # (Manual) PT INR APTT D-Dimer POC ABG pH POC ABG pCO2 POC ABG pO2 Sodium Potassium Chloride 111.7 H Carbon Dioxide BUN 53 H Creatinine 2.8 H Glucose 102 H POC Glucose 130 H 171 H Lactic Acid Calcium 6.9 L Ionized Calcium Phosphorus Magnesium ALT < 5 L Alkaline Phosphatase 25 L Total Creatine Kinase CK-MB (CK-2) Troponin T C-Reactive Protein Total Protein 3.3 L Albumin 1.7 L Urine WBC (Auto) Urine Creatinine Salicylates Miscellaneous Test Crossmatch 05/12/17 05/13/17 05/13/17 22:20 06:54 06:54 WBC 20.8 H RBC 3.17 L Hgb 9.2 L Hct 28.9 L RDW 17.7 H Plt Count Lymph % (Auto) Anderson % (Auto) Eos % (Auto) Lymph # Anderson # Eos # Seg Neutrophils % Seg Neuts % (Manual) 93.0 H Lymphocytes % (Manual) 1.0 L Monocytes % (Manual) Nucleated RBC % Seg Neutrophils # Seg Neutrophils # Man 19.3 H Lymphocytes # (Manual) 0.2 L Monocytes # (Manual) Eosinophils # (Manual) 0.6 H PT INR APTT D-Dimer POC ABG pH POC ABG pCO2 POC ABG pO2 Sodium Potassium 3.3 L Chloride 110.0 H Carbon Dioxide 20 L BUN 48 H Creatinine 2.8 H Glucose 119 H POC Glucose 179 H Lactic Acid Calcium 7.4 L Ionized Calcium Phosphorus Magnesium ALT Alkaline Phosphatase Total Creatine Kinase CK-MB (CK-2) Troponin T C-Reactive Protein Total Protein Albumin Urine WBC (Auto) Urine Creatinine Salicylates Miscellaneous Test Crossmatch 05/13/17 05/13/17 05/13/17 07:35 12:52 23:32 WBC RBC Hgb Hct RDW Plt Count Lymph % (Auto) Anderson % (Auto) Eos % (Auto) Lymph # Anderson # Eos # Seg Neutrophils % Seg Neuts % (Manual) Lymphocytes % (Manual) Monocytes % (Manual) Nucleated RBC % Seg Neutrophils # Seg Neutrophils # Man Lymphocytes # (Manual) Monocytes # (Manual) Eosinophils # (Manual) PT INR APTT D-Dimer POC ABG pH POC ABG pCO2 POC ABG pO2 Sodium Potassium Chloride Carbon Dioxide BUN Creatinine Glucose POC Glucose 139 H 159 H 179 H Lactic Acid Calcium Ionized Calcium Phosphorus Magnesium ALT Alkaline Phosphatase Total Creatine Kinase CK-MB (CK-2) Troponin T C-Reactive Protein Total Protein Albumin Urine WBC (Auto) Urine Creatinine Salicylates Miscellaneous Test Crossmatch 05/14/17 05/14/17 05/14/17 04:00 05:00 07:30 WBC 19.3 H RBC 3.16 L Hgb 9.1 L Hct 29.1 L RDW 17.9 H Plt Count Lymph % (Auto) Anderson % (Auto) Eos % (Auto) Lymph # Anderson # Eos # Seg Neutrophils % Seg Neuts % (Manual) 87.0 H Lymphocytes % (Manual) 2.0 L Monocytes % (Manual) Nucleated RBC % Seg Neutrophils # Seg Neutrophils # Man 16.8 H Lymphocytes # (Manual) 0.4 L Monocytes # (Manual) 1.0 H Eosinophils # (Manual) 0.6 H PT INR APTT D-Dimer POC ABG pH POC ABG pCO2 POC ABG pO2 Sodium 146 H Potassium Chloride 114.7 H Carbon Dioxide 19 L BUN 43 H Creatinine 2.5 H Glucose POC Glucose 110 H Lactic Acid Calcium 7.5 L Ionized Calcium Phosphorus Magnesium ALT Alkaline Phosphatase Total Creatine Kinase CK-MB (CK-2) Troponin T C-Reactive Protein Total Protein Albumin Urine WBC (Auto) Urine Creatinine Salicylates Miscellaneous Test Crossmatch 05/14/17 05/14/17 05/14/17 11:43 15:44 20:10 WBC RBC Hgb Hct RDW Plt Count Lymph % (Auto) Anderson % (Auto) Eos % (Auto) Lymph # Anderson # Eos # Seg Neutrophils % Seg Neuts % (Manual) Lymphocytes % (Manual) Monocytes % (Manual) Nucleated RBC % Seg Neutrophils # Seg Neutrophils # Man Lymphocytes # (Manual) Monocytes # (Manual) Eosinophils # (Manual) PT INR APTT D-Dimer POC ABG pH POC ABG pCO2 POC ABG pO2 Sodium Potassium Chloride Carbon Dioxide BUN Creatinine Glucose POC Glucose 169 H 201 H 223 H Lactic Acid Calcium Ionized Calcium Phosphorus Magnesium ALT Alkaline Phosphatase Total Creatine Kinase CK-MB (CK-2) Troponin T C-Reactive Protein Total Protein Albumin Urine WBC (Auto) Urine Creatinine Salicylates Miscellaneous Test Crossmatch 05/15/17 05/15/17 05/15/17 06:10 08:50 12:57 WBC RBC Hgb Hct RDW Plt Count Lymph % (Auto) Anderson % (Auto) Eos % (Auto) Lymph # Anderson # Eos # Seg Neutrophils % Seg Neuts % (Manual) Lymphocytes % (Manual) Monocytes % (Manual) Nucleated RBC % Seg Neutrophils # Seg Neutrophils # Man Lymphocytes # (Manual) Monocytes # (Manual) Eosinophils # (Manual) PT INR APTT D-Dimer POC ABG pH POC ABG pCO2 POC ABG pO2 Sodium Potassium Chloride 113.6 H Carbon Dioxide 18 L BUN 43 H Creatinine 2.7 H Glucose 123 H POC Glucose 204 H 127 H Lactic Acid Calcium 7.2 L Ionized Calcium Phosphorus Magnesium ALT Alkaline Phosphatase Total Creatine Kinase CK-MB (CK-2) Troponin T C-Reactive Protein Total Protein Albumin Urine WBC (Auto) Urine Creatinine Salicylates Miscellaneous Test Crossmatch 05/15/17 05/15/17 05/15/17 17:43 21:29 23:51 WBC RBC Hgb Hct RDW Plt Count Lymph % (Auto) Anderson % (Auto) Eos % (Auto) Lymph # Anderson # Eos # Seg Neutrophils % Seg Neuts % (Manual) Lymphocytes % (Manual) Monocytes % (Manual) Nucleated RBC % Seg Neutrophils # Seg Neutrophils # Man Lymphocytes # (Manual) Monocytes # (Manual) Eosinophils # (Manual) PT INR APTT D-Dimer POC ABG pH 6.983 L POC ABG pCO2 67.5 H POC ABG pO2 Sodium Potassium Chloride Carbon Dioxide BUN Creatinine Glucose POC Glucose 121 H 129 H Lactic Acid Calcium Ionized Calcium Phosphorus Magnesium ALT Alkaline Phosphatase Total Creatine Kinase CK-MB (CK-2) Troponin T C-Reactive Protein Total Protein Albumin Urine WBC (Auto) Urine Creatinine Salicylates Miscellaneous Test Crossmatch 05/16/17 05/16/17 05/16/17 00:15 06:00 07:46 WBC RBC Hgb Hct RDW Plt Count Lymph % (Auto) Anderson % (Auto) Eos % (Auto) Lymph # Anderson # Eos # Seg Neutrophils % Seg Neuts % (Manual) Lymphocytes % (Manual) Monocytes % (Manual) Nucleated RBC % Seg Neutrophils # Seg Neutrophils # Man Lymphocytes # (Manual) Monocytes # (Manual) Eosinophils # (Manual) PT INR APTT D-Dimer POC ABG pH POC ABG pCO2 POC ABG pO2 Sodium Potassium Chloride 114.2 H Carbon Dioxide 17 L BUN 44 H Creatinine 3.3 H Glucose 118 H POC Glucose 135 H Lactic Acid 0.60 L Calcium 7.5 L Ionized Calcium Phosphorus Magnesium ALT Alkaline Phosphatase Total Creatine Kinase CK-MB (CK-2) Troponin T C-Reactive Protein Total Protein Albumin Urine WBC (Auto) Urine Creatinine Salicylates Miscellaneous Test Crossmatch 05/16/17 05/16/17 05/16/17 09:38 10:20 10:20 WBC 18.6 H RBC 3.08 L Hgb 9.0 L Hct 29.0 L RDW 18.8 H Plt Count Lymph % (Auto) Anderson % (Auto) Eos % (Auto) Lymph # Anderson # Eos # Seg Neutrophils % Seg Neuts % (Manual) Lymphocytes % (Manual) 5.0 L Monocytes % (Manual) Nucleated RBC % Seg Neutrophils # Seg Neutrophils # Man 11.3 H Lymphocytes # (Manual) 0.9 L Monocytes # (Manual) 1.3 H Eosinophils # (Manual) PT INR APTT D-Dimer POC ABG pH 7.081 L POC ABG pCO2 46.3 H POC ABG pO2 107 H Sodium Potassium Chloride 114.9 H Carbon Dioxide 14 L BUN 44 H Creatinine 3.0 H Glucose 115 H POC Glucose Lactic Acid Calcium 7.3 L Ionized Calcium Phosphorus 5.40 H Magnesium ALT < 5 L Alkaline Phosphatase 17 L Total Creatine Kinase CK-MB (CK-2) Troponin T C-Reactive Protein Total Protein 4.2 L D Albumin 2.9 L Urine WBC (Auto) Urine Creatinine Salicylates Miscellaneous Test Crossmatch 05/17/17 05/17/17 05/17/17 03:44 04:00 05:00 WBC 21.9 H RBC 2.89 L Hgb 8.3 L Hct 26.4 L RDW 18.2 H Plt Count Lymph % (Auto) Anderson % (Auto) Eos % (Auto) Lymph # Anderson # Eos # Seg Neutrophils % Seg Neuts % (Manual) Lymphocytes % (Manual) 7.0 L Monocytes % (Manual) Nucleated RBC % Seg Neutrophils # Seg Neutrophils # Man 15.3 H Lymphocytes # (Manual) Monocytes # (Manual) 1.5 H Eosinophils # (Manual) PT INR APTT D-Dimer POC ABG pH 7.199 L POC ABG pCO2 POC ABG pO2 107 H Sodium Potassium Chloride 111.7 H Carbon Dioxide 16 L BUN 43 H Creatinine 3.4 H Glucose POC Glucose Lactic Acid Calcium 7.3 L Ionized Calcium Phosphorus Magnesium ALT Alkaline Phosphatase Total Creatine Kinase CK-MB (CK-2) Troponin T C-Reactive Protein Total Protein Albumin Urine WBC (Auto) Urine Creatinine Salicylates Miscellaneous Test Crossmatch 05/17/17 05/17/17 05/18/17 05:00 12:20 04:43 WBC RBC Hgb Hct RDW Plt Count Lymph % (Auto) [place] % (Auto) Eos % (Auto) Lymph # Anderson # Eos # Seg Neutrophils % Seg Neuts % (Manual) Lymphocytes % (Manual) Monocytes % (Manual) Nucleated RBC % Seg Neutrophils # Seg Neutrophils # Man Lymphocytes # (Manual) Monocytes # (Manual) Eosinophils # (Manual) PT INR APTT D-Dimer POC ABG pH 7.251 L POC ABG pCO2 POC ABG pO2 126 H Sodium Potassium Chloride Carbon Dioxide BUN Creatinine Glucose POC Glucose Lactic Acid Calcium Ionized Calcium Phosphorus Magnesium ALT Alkaline Phosphatase Total Creatine Kinase CK-MB (CK-2) Troponin T C-Reactive Protein 2.30 H Total Protein Albumin Urine WBC (Auto) Urine Creatinine Salicylates Miscellaneous Test Flexitest 1 H Crossmatch 05/18/17 05/18/17 05/18/17 14:46 21:30 Unknown WBC RBC Hgb Hct RDW Plt Count Lymph % (Auto) [place] % (Auto) Eos % (Auto) Lymph # Anderson # Eos # Seg Neutrophils % Seg Neuts % (Manual) Lymphocytes % (Manual) Monocytes % (Manual) Nucleated RBC % Seg Neutrophils # Seg Neutrophils # Man Lymphocytes # (Manual) Monocytes # (Manual) Eosinophils # (Manual) PT INR APTT D-Dimer POC ABG pH 7.227 L POC ABG pCO2 POC ABG pO2 126 H Sodium Potassium 3.2 L Chloride 108.9 H Carbon Dioxide 19 L BUN 44 H Creatinine 3.6 H Glucose POC Glucose 206 H Lactic Acid Calcium 7.3 L Ionized Calcium Phosphorus Magnesium ALT Alkaline Phosphatase Total Creatine Kinase CK-MB (CK-2) Troponin T C-Reactive Protein Total Protein Albumin Urine WBC (Auto) Urine Creatinine Salicylates Miscellaneous Test Crossmatch 05/18/17 05/19/17 05/19/17 Unknown 05:26 06:00 WBC 25.2 H RBC 2.76 L Hgb 8.0 L Hct 24.9 L RDW 17.7 H Plt Count Lymph % (Auto) [place] % (Auto) Eos % (Auto) Lymph # [place] # Eos # Seg Neutrophils % Seg Neuts % (Manual) 86.0 H Lymphocytes % (Manual) 1.0 L Monocytes % (Manual) Nucleated RBC % Seg Neutrophils # Seg Neutrophils # Man 21.7 H Lymphocytes # (Manual) 0.3 L Monocytes # (Manual) 1.5 H Eosinophils # (Manual) PT INR APTT D-Dimer POC ABG pH 7.216 L POC ABG pCO2 47.0 H POC ABG pO2 Sodium Potassium Chloride Carbon Dioxide BUN Creatinine Glucose POC Glucose 173 H Lactic Acid Calcium Ionized Calcium Phosphorus Magnesium ALT Alkaline Phosphatase Total Creatine Kinase CK-MB (CK-2) Troponin T C-Reactive Protein Total Protein Albumin Urine WBC (Auto) Urine Creatinine Salicylates Miscellaneous Test Crossmatch 05/19/17 05/19/17 05/19/17 11:47 18:04 23:54 WBC RBC Hgb Hct RDW Plt Count Lymph % (Auto) [place] % (Auto) Eos % (Auto) Lymph # [place] # Eos # Seg Neutrophils % Seg Neuts % (Manual) Lymphocytes % (Manual) Monocytes % (Manual) Nucleated RBC % Seg Neutrophils # Seg Neutrophils # Man Lymphocytes # (Manual) Monocytes # (Manual) Eosinophils # (Manual) PT INR APTT D-Dimer POC ABG pH POC ABG pCO2 POC ABG pO2 Sodium Potassium Chloride Carbon Dioxide BUN Creatinine Glucose POC Glucose 203 H 178 H Lactic Acid Calcium Ionized Calcium Phosphorus Magnesium ALT Alkaline Phosphatase Total Creatine Kinase CK-MB (CK-2) Troponin T C-Reactive Protein Total Protein Albumin Urine WBC (Auto) 78.0 H Urine Creatinine Salicylates Miscellaneous Test Crossmatch 05/19/17 05/19/17 05/20/17 Unknown Unknown 05:03 WBC 36.5 H RBC 2.71 L Hgb 7.7 L Hct 24.3 L RDW 18.3 H Plt Count Lymph % (Auto) [place] % (Auto) Eos % (Auto) Lymph # [place] # Eos # Seg Neutrophils % Seg Neuts % (Manual) 79.0 H Lymphocytes % (Manual) 3.0 L Monocytes % (Manual) Nucleated RBC % Seg Neutrophils # Seg Neutrophils # Man 28.8 H Lymphocytes # (Manual) 1.1 L Monocytes # (Manual) 2.6 H Eosinophils # (Manual) PT INR APTT D-Dimer POC ABG pH 7.322 L POC ABG pCO2 46.3 H POC ABG pO2 160 H Sodium Potassium 3.5 L Chloride 108.1 H Carbon Dioxide 20 L BUN 36 H Creatinine 3.1 H Glucose 165 H POC Glucose Lactic Acid Calcium 7.7 L Ionized Calcium Phosphorus Magnesium ALT Alkaline Phosphatase Total Creatine Kinase CK-MB (CK-2) Troponin T C-Reactive Protein Total Protein Albumin Urine WBC (Auto) Urine Creatinine Salicylates Miscellaneous Test Crossmatch 05/20/17 05/20/17 05/20/17 05:30 05:30 05:44 WBC 44.4 H* RBC 2.65 L Hgb 7.6 L Hct 23.7 L RDW 18.0 H Plt Count Lymph % (Auto) [place] % (Auto) Eos % (Auto) Lymph # [place] # Eos # Seg Neutrophils % Seg Neuts % (Manual) Lymphocytes % (Manual) 7.0 L Monocytes % (Manual) 12.0 H Nucleated RBC % Seg Neutrophils # Seg Neutrophils # Man 22.2 H Lymphocytes # (Manual) Monocytes # (Manual) 5.3 H Eosinophils # (Manual) PT INR APTT D-Dimer POC ABG pH POC ABG pCO2 POC ABG pO2 Sodium Potassium 3.5 L Chloride Carbon Dioxide BUN 23 H Creatinine 2.1 H Glucose 167 H POC Glucose 182 H Lactic Acid Calcium 7.7 L Ionized Calcium Phosphorus Magnesium 1.40 L ALT Alkaline Phosphatase Total Creatine Kinase CK-MB (CK-2) Troponin T C-Reactive Protein Total Protein Albumin Urine WBC (Auto) Urine Creatinine Salicylates Miscellaneous Test Crossmatch 05/20/17 05/20/17 05/20/17 11:59 13:46 13:46 WBC RBC Hgb Hct RDW Plt Count Lymph % (Auto) [place] % (Auto) Eos % (Auto) Lymph # [place] # Eos # Seg Neutrophils % Seg Neuts % (Manual) Lymphocytes % (Manual) Monocytes % (Manual) Nucleated RBC % Seg Neutrophils # Seg Neutrophils # Man Lymphocytes # (Manual) Monocytes # (Manual) Eosinophils # (Manual) PT 22.6 H INR 1.89 H APTT 44.6 H D-Dimer POC ABG pH POC ABG pCO2 POC ABG pO2 Sodium Potassium Chloride Carbon Dioxide BUN Creatinine Glucose POC Glucose 162 H Lactic Acid Calcium Ionized Calcium Phosphorus Magnesium ALT Alkaline Phosphatase Total Creatine Kinase CK-MB (CK-2) Troponin T C-Reactive Protein Total Protein Albumin Urine WBC (Auto) Urine Creatinine Salicylates Miscellaneous Test Crossmatch See Detail 05/20/17 05/20/17 05/20/17 17:36 20:00 20:44 WBC 38.3 H RBC 3.60 L Hgb Hct RDW 15.8 H Plt Count Lymph % (Auto) [place] % (Auto) Eos % (Auto) Lymph # [place] # Eos # Seg Neutrophils % Seg Neuts % (Manual) Lymphocytes % (Manual) Monocytes % (Manual) Nucleated RBC % Seg Neutrophils # Seg Neutrophils # Man Lymphocytes # (Manual) Monocytes # (Manual) Eosinophils # (Manual) PT 21.4 H INR 1.76 H APTT 172.2 H* D-Dimer POC ABG pH POC ABG pCO2 POC ABG pO2 Sodium Potassium Chloride Carbon Dioxide BUN Creatinine Glucose POC Glucose 144 H Lactic Acid Calcium Ionized Calcium Phosphorus Magnesium ALT Alkaline Phosphatase Total Creatine Kinase CK-MB (CK-2) Troponin T C-Reactive Protein Total Protein Albumin Urine WBC (Auto) Urine Creatinine Salicylates Miscellaneous Test Crossmatch 05/20/17 05/20/17 05/21/17 22:20 23:37 05:20 WBC RBC Hgb Hct RDW Plt Count Lymph % (Auto) [place] % (Auto) Eos % (Auto) Lymph # [place] # Eos # Seg Neutrophils % Seg Neuts % (Manual) Lymphocytes % (Manual) Monocytes % (Manual) Nucleated RBC % Seg Neutrophils # Seg Neutrophils # Man Lymphocytes # (Manual) Monocytes # (Manual) Eosinophils # (Manual) PT INR APTT 42.8 H D-Dimer POC ABG pH POC ABG pCO2 POC ABG pO2 Sodium Potassium 3.5 L Chloride Carbon Dioxide BUN Creatinine 1.5 H Glucose 106 H POC Glucose 113 H Lactic Acid Calcium 7.7 L Ionized Calcium Phosphorus Magnesium ALT Alkaline Phosphatase Total Creatine Kinase CK-MB (CK-2) Troponin T C-Reactive Protein Total Protein Albumin Urine WBC (Auto) Urine Creatinine Salicylates Miscellaneous Test Crossmatch 05/21/17 05/21/17 05/21/17 05:20 05:20 05:31 WBC 31.6 H RBC Hgb Hct RDW 15.8 H Plt Count Lymph % (Auto) [place] % (Auto) Eos % (Auto) Lymph # [place] # Eos # Seg Neutrophils % Seg Neuts % (Manual) 90.0 H Lymphocytes % (Manual) 3.0 L Monocytes % (Manual) Nucleated RBC % Seg Neutrophils # Seg Neutrophils # Man 28.4 H Lymphocytes # (Manual) 0.9 L Monocytes # (Manual) Eosinophils # (Manual) 1.3 H PT 19.1 H INR 1.53 H APTT 37.9 H D-Dimer POC ABG pH POC ABG pCO2 POC ABG pO2 Sodium Potassium Chloride Carbon Dioxide BUN Creatinine Glucose POC Glucose 126 H Lactic Acid Calcium Ionized Calcium Phosphorus Magnesium ALT Alkaline Phosphatase Total Creatine Kinase CK-MB (CK-2) Troponin T C-Reactive Protein Total Protein Albumin Urine WBC (Auto) Urine Creatinine Salicylates Miscellaneous Test Crossmatch 05/21/17 05/21/17 05/21/17 12:46 13:00 13:00 WBC 32.9 H RBC 3.09 L Hgb 9.0 L Hct 27.6 L RDW 16.3 H Plt Count Lymph % (Auto) [place] % (Auto) Eos % (Auto) Lymph # [place] # Eos # Seg Neutrophils % Seg Neuts % (Manual) 86.0 H Lymphocytes % (Manual) 2.0 L Monocytes % (Manual) Nucleated RBC % 2.0 H Seg Neutrophils # Seg Neutrophils # Man 28.3 H Lymphocytes # (Manual) 0.7 L Monocytes # (Manual) Eosinophils # (Manual) PT INR APTT D-Dimer POC ABG pH POC ABG pCO2 POC ABG pO2 Sodium Potassium 3.3 L Chloride 108.4 H Carbon Dioxide 20 L BUN Creatinine 1.4 H Glucose 119 H POC Glucose 157 H Lactic Acid Calcium 6.5 L D Ionized Calcium Phosphorus Magnesium ALT Alkaline Phosphatase 28 L Total Creatine Kinase CK-MB (CK-2) Troponin T C-Reactive Protein Total Protein 3.2 L Albumin 1.7 L Urine WBC (Auto) Urine Creatinine Salicylates Miscellaneous Test Crossmatch 05/21/17 05/21/17 05/21/17 13:00 18:15 21:00 WBC 42.4 H* RBC 2.85 L Hgb 8.2 L Hct 25.9 L RDW 16.3 H Plt Count Lymph % (Auto) [place] % (Auto) Eos % (Auto) Lymph # [place] # Eos # Seg Neutrophils % Seg Neuts % (Manual) 95.0 H Lymphocytes % (Manual) 3.0 L Monocytes % (Manual) Nucleated RBC % Seg Neutrophils # Seg Neutrophils # Man 40.3 H Lymphocytes # (Manual) Monocytes # (Manual) Eosinophils # (Manual) PT 19.7 H INR 1.59 H APTT 41.1 H D-Dimer POC ABG pH POC ABG pCO2 POC ABG pO2 Sodium Potassium Chloride Carbon Dioxide BUN Creatinine Glucose POC Glucose 149 H Lactic Acid Calcium Ionized Calcium Phosphorus Magnesium ALT Alkaline Phosphatase Total Creatine Kinase CK-MB (CK-2) Troponin T C-Reactive Protein Total Protein Albumin Urine WBC (Auto) Urine Creatinine Salicylates Miscellaneous Test Crossmatch 05/22/17 05/22/17 05/22/17 00:02 04:50 04:50 WBC RBC Hgb Hct RDW Plt Count Lymph % (Auto) [place] % (Auto) Eos % (Auto) Lymph # [place] # Eos # Seg Neutrophils % Seg Neuts % (Manual) Lymphocytes % (Manual) Monocytes % (Manual) Nucleated RBC % Seg Neutrophils # Seg Neutrophils # Man Lymphocytes # (Manual) Monocytes # (Manual) Eosinophils # (Manual) PT INR APTT D-Dimer POC ABG pH POC ABG pCO2 POC ABG pO2 Sodium Potassium Chloride 109.4 H Carbon Dioxide 18 L BUN Creatinine 1.8 H Glucose 164 H POC Glucose 155 H Lactic Acid Calcium 6.6 L Ionized Calcium Phosphorus Magnesium 1.40 L ALT Alkaline Phosphatase 33 L Total Creatine Kinase CK-MB (CK-2) Troponin T C-Reactive Protein Total Protein 3.6 L Albumin 2.0 L Urine WBC (Auto) Urine Creatinine Salicylates Miscellaneous Test Crossmatch 05/22/17 05/22/17 05/22/17 04:50 04:50 05:39 WBC 41.8 H* RBC 2.65 L Hgb 7.8 L Hct 24.1 L RDW 16.5 H Plt Count Lymph % (Auto) [place] % (Auto) Eos % (Auto) Lymph # [place] # Eos # Seg Neutrophils % Seg Neuts % (Manual) 73.0 H Lymphocytes % (Manual) 4.0 L Monocytes % (Manual) Nucleated RBC % Seg Neutrophils # Seg Neutrophils # Man 30.5 H Lymphocytes # (Manual) Monocytes # (Manual) 1.3 H Eosinophils # (Manual) PT 21.3 H INR 1.75 H APTT 39.4 H D-Dimer POC ABG pH POC ABG pCO2 POC ABG pO2 Sodium Potassium Chloride Carbon Dioxide BUN Creatinine Glucose POC Glucose 200 H Lactic Acid Calcium Ionized Calcium Phosphorus Magnesium ALT Alkaline Phosphatase Total Creatine Kinase CK-MB (CK-2) Troponin T C-Reactive Protein Total Protein Albumin Urine WBC (Auto) Urine Creatinine Salicylates Miscellaneous Test Crossmatch 05/22/17 05/22/17 05/22/17 05:46 10:32 11:41 WBC RBC Hgb Hct RDW Plt Count Lymph % (Auto) [place] % (Auto) Eos % (Auto) Lymph # [place] # Eos # Seg Neutrophils % Seg Neuts % (Manual) Lymphocytes % (Manual) Monocytes % (Manual) Nucleated RBC % Seg Neutrophils # Seg Neutrophils # Man Lymphocytes # (Manual) Monocytes # (Manual) Eosinophils # (Manual) PT INR APTT D-Dimer POC ABG pH 7.225 L 7.317 L POC ABG pCO2 45.3 H POC ABG pO2 Sodium Potassium Chloride Carbon Dioxide BUN Creatinine Glucose POC Glucose 169 H Lactic Acid Calcium Ionized Calcium Phosphorus Magnesium ALT Alkaline Phosphatase Total Creatine Kinase CK-MB (CK-2) Troponin T C-Reactive Protein Total Protein Albumin Urine WBC (Auto) Urine Creatinine Salicylates Miscellaneous Test Crossmatch 05/22/17 05/22/17 05/22/17 12:45 18:01 22:50 WBC RBC Hgb 7.4 L 8.8 L Hct 23.5 L 27.8 L RDW Plt Count Lymph % (Auto) [place] % (Auto) Eos % (Auto) Lymph # [place] # Eos # Seg Neutrophils % Seg Neuts % (Manual) Lymphocytes % (Manual) Monocytes % (Manual) Nucleated RBC % Seg Neutrophils # Seg Neutrophils # Man Lymphocytes # (Manual) Monocytes # (Manual) Eosinophils # (Manual) PT INR APTT D-Dimer POC ABG pH POC ABG pCO2 POC ABG pO2 Sodium Potassium Chloride Carbon Dioxide BUN Creatinine Glucose POC Glucose 148 H Lactic Acid Calcium Ionized Calcium Phosphorus Magnesium ALT Alkaline Phosphatase Total Creatine Kinase CK-MB (CK-2) Troponin T C-Reactive Protein Total Protein Albumin Urine WBC (Auto) Urine Creatinine Salicylates Miscellaneous Test Crossmatch 05/22/17 05/23/17 05/23/17 23:53 05:15 05:15 WBC 40.9 H* RBC 3.06 L Hgb 8.9 L Hct 27.4 L RDW 16.7 H Plt Count Lymph % (Auto) [place] % (Auto) Eos % (Auto) Lymph # [place] # Eos # Seg Neutrophils % Seg Neuts % (Manual) 93.0 H Lymphocytes % (Manual) 3.0 L Monocytes % (Manual) Nucleated RBC % Seg Neutrophils # Seg Neutrophils # Man 38.0 H Lymphocytes # (Manual) Monocytes # (Manual) Eosinophils # (Manual) PT INR APTT D-Dimer POC ABG pH POC ABG pCO2 POC ABG pO2 Sodium Potassium Chloride 110.6 H Carbon Dioxide 19 L BUN 18 H Creatinine 1.9 H Glucose 102 H POC Glucose 143 H Lactic Acid Calcium 7.0 L Ionized Calcium Phosphorus Magnesium ALT Alkaline Phosphatase Total Creatine Kinase CK-MB (CK-2) Troponin T C-Reactive Protein Total Protein Albumin Urine WBC (Auto) Urine Creatinine Salicylates Miscellaneous Test Crossmatch 05/23/17 05/23/17 05/23/17 05:23 06:09 08:55 WBC RBC Hgb Hct RDW Plt Count Lymph % (Auto) [place] % (Auto) Eos % (Auto) Lymph # [place] # Eos # Seg Neutrophils % Seg Neuts % (Manual) Lymphocytes % (Manual) Monocytes % (Manual) Nucleated RBC % Seg Neutrophils # Seg Neutrophils # Man Lymphocytes # (Manual) Monocytes # (Manual) Eosinophils # (Manual) PT INR APTT D-Dimer POC ABG pH 7.240 L 7.297 L POC ABG pCO2 POC ABG pO2 Sodium Potassium Chloride Carbon Dioxide BUN Creatinine Glucose POC Glucose 124 H Lactic Acid Calcium Ionized Calcium Phosphorus Magnesium ALT Alkaline Phosphatase Total Creatine Kinase CK-MB (CK-2) Troponin T C-Reactive Protein Total Protein Albumin Urine WBC (Auto) Urine Creatinine Salicylates Miscellaneous Test Crossmatch 05/23/17 05/23/17 05/23/17 12:46 16:55 18:33 WBC RBC Hgb Hct RDW Plt Count Lymph % (Auto) [place] % (Auto) Eos % (Auto) Lymph # [place] # Eos # Seg Neutrophils % Seg Neuts % (Manual) Lymphocytes % (Manual) Monocytes % (Manual) Nucleated RBC % Seg Neutrophils # Seg Neutrophils # Man Lymphocytes # (Manual) Monocytes # (Manual) Eosinophils # (Manual) PT INR APTT D-Dimer POC ABG pH POC ABG pCO2 POC ABG pO2 Sodium Potassium Chloride Carbon Dioxide BUN Creatinine Glucose POC Glucose 159 H 139 H Lactic Acid Calcium Ionized Calcium Phosphorus Magnesium ALT Alkaline Phosphatase Total Creatine Kinase CK-MB (CK-2) Troponin T C-Reactive Protein 7.10 H Total Protein Albumin Urine WBC (Auto) Urine Creatinine Salicylates Miscellaneous Test Crossmatch 05/23/17 05/24/17 05/24/17 23:25 06:14 07:16 WBC RBC Hgb Hct RDW Plt Count Lymph % (Auto) [place] % (Auto) Eos % (Auto) Lymph # [place] # Eos # Seg Neutrophils % Seg Neuts % (Manual) Lymphocytes % (Manual) Monocytes % (Manual) Nucleated RBC % Seg Neutrophils # Seg Neutrophils # Man Lymphocytes # (Manual) Monocytes # (Manual) Eosinophils # (Manual) PT INR APTT D-Dimer POC ABG pH POC ABG pCO2 POC ABG pO2 Sodium Potassium Chloride Carbon Dioxide BUN Creatinine 1.5 H Glucose 130 H POC Glucose 143 H 159 H Lactic Acid Calcium 7.6 L Ionized Calcium Phosphorus Magnesium ALT Alkaline Phosphatase Total Creatine Kinase CK-MB (CK-2) Troponin T C-Reactive Protein Total Protein Albumin Urine WBC (Auto) Urine Creatinine Salicylates Miscellaneous Test Crossmatch 05/24/17 05/24/17 05/24/17 07:16 11:42 17:27 WBC 36.9 H RBC 2.90 L Hgb 8.5 L Hct 26.2 L RDW 16.8 H Plt Count Lymph % (Auto) [place] % (Auto) Eos % (Auto) Lymph # [place] # Eos # Seg Neutrophils % Seg Neuts % (Manual) 96.5 H Lymphocytes % (Manual) 0 L Monocytes % (Manual) Nucleated RBC % 2.0 H Seg Neutrophils # Seg Neutrophils # Man 35.6 H Lymphocytes # (Manual) 0.0 L Monocytes # (Manual) 0.9 H Eosinophils # (Manual) PT INR APTT D-Dimer POC ABG pH POC ABG pCO2 POC ABG pO2 Sodium Potassium Chloride Carbon Dioxide BUN Creatinine Glucose POC Glucose 168 H 59 L Lactic Acid Calcium Ionized Calcium Phosphorus Magnesium ALT Alkaline Phosphatase Total Creatine Kinase CK-MB (CK-2) Troponin T C-Reactive Protein Total Protein Albumin Urine WBC (Auto) Urine Creatinine Salicylates Miscellaneous Test Crossmatch 05/24/17 05/24/17 05/25/17 18:43 23:47 05:37 WBC RBC Hgb Hct RDW Plt Count Lymph % (Auto) [place] % (Auto) Eos % (Auto) Lymph # [place] # Eos # Seg Neutrophils % Seg Neuts % (Manual) Lymphocytes % (Manual) Monocytes % (Manual) Nucleated RBC % Seg Neutrophils # Seg Neutrophils # Man Lymphocytes # (Manual) Monocytes # (Manual) Eosinophils # (Manual) PT INR APTT D-Dimer POC ABG pH POC ABG pCO2 POC ABG pO2 Sodium Potassium Chloride Carbon Dioxide BUN Creatinine Glucose POC Glucose 139 H 150 H 152 H Lactic Acid Calcium Ionized Calcium Phosphorus Magnesium ALT Alkaline Phosphatase Total Creatine Kinase CK-MB (CK-2) Troponin T C-Reactive Protein Total Protein Albumin Urine WBC (Auto) Urine Creatinine Salicylates Miscellaneous Test Crossmatch 05/25/17 05/25/17 05/25/17 07:08 07:08 12:06 WBC 31.7 H RBC 2.81 L Hgb 8.2 L Hct 25.4 L RDW 16.3 H Plt Count Lymph % (Auto) [place] % (Auto) Eos % (Auto) Lymph # [place] # Eos # Seg Neutrophils % Seg Neuts % (Manual) 97.0 H Lymphocytes % (Manual) 1.5 L Monocytes % (Manual) Nucleated RBC % 3.5 H Seg Neutrophils # Seg Neutrophils # Man 30.7 H Lymphocytes # (Manual) 0.5 L Monocytes # (Manual) Eosinophils # (Manual) PT INR APTT D-Dimer POC ABG pH POC ABG pCO2 POC ABG pO2 Sodium Potassium Chloride Carbon Dioxide BUN 24 H Creatinine 1.5 H Glucose 126 H POC Glucose 178 H Lactic Acid Calcium 8.0 L Ionized Calcium Phosphorus Magnesium ALT Alkaline Phosphatase Total Creatine Kinase CK-MB (CK-2) Troponin T C-Reactive Protein Total Protein Albumin Urine WBC (Auto) Urine Creatinine Salicylates Miscellaneous Test Crossmatch 05/25/17 05/25/17 05/26/17 17:47 23:30 05:32 WBC RBC Hgb Hct RDW Plt Count Lymph % (Auto) [place] % (Auto) Eos % (Auto) Lymph # [place] # Eos # Seg Neutrophils % Seg Neuts % (Manual) Lymphocytes % (Manual) Monocytes % (Manual) Nucleated RBC % Seg Neutrophils # Seg Neutrophils # Man Lymphocytes # (Manual) Monocytes # (Manual) Eosinophils # (Manual) PT INR APTT D-Dimer POC ABG pH POC ABG pCO2 POC ABG pO2 Sodium Potassium Chloride Carbon Dioxide BUN Creatinine Glucose POC Glucose 123 H 125 H 182 H Lactic Acid Calcium Ionized Calcium Phosphorus Magnesium ALT Alkaline Phosphatase Total Creatine Kinase CK-MB (CK-2) Troponin T C-Reactive Protein Total Protein Albumin Urine WBC (Auto) Urine Creatinine Salicylates Miscellaneous Test Crossmatch 05/26/17 05/26/17 05/26/17 06:00 07:15 07:15 WBC 21.0 H RBC 2.72 L Hgb 7.8 L Hct 24.5 L RDW 16.5 H Plt Count Lymph % (Auto) [place] % (Auto) Eos % (Auto) Lymph # [place] # Eos # Seg Neutrophils % Seg Neuts % (Manual) 88.0 H Lymphocytes % (Manual) 6.0 L Monocytes % (Manual) Nucleated RBC % 3.0 H Seg Neutrophils # Seg Neutrophils # Man 18.5 H Lymphocytes # (Manual) Monocytes # (Manual) Eosinophils # (Manual) PT INR APTT D-Dimer POC ABG pH POC ABG pCO2 POC ABG pO2 Sodium Potassium Chloride Carbon Dioxide BUN 34 H 34 H Creatinine 1.5 H 1.5 H Glucose 148 H 145 H POC Glucose Lactic Acid Calcium 8.1 L 8.2 L Ionized Calcium Phosphorus Magnesium ALT < 5 L Alkaline Phosphatase Total Creatine Kinase CK-MB (CK-2) Troponin T C-Reactive Protein Total Protein 4.0 L Albumin 2.3 L Urine WBC (Auto) Urine Creatinine Salicylates Miscellaneous Test Crossmatch 05/26/17 05/26/17 05/26/17 10:50 12:16 18:14 WBC RBC Hgb Hct RDW Plt Count Lymph % (Auto) [place] % (Auto) Eos % (Auto) Lymph # [place] # Eos # Seg Neutrophils % Seg Neuts % (Manual) Lymphocytes % (Manual) Monocytes % (Manual) Nucleated RBC % Seg Neutrophils # Seg Neutrophils # Man Lymphocytes # (Manual) Monocytes # (Manual) Eosinophils # (Manual) PT INR APTT D-Dimer POC ABG pH POC ABG pCO2 POC ABG pO2 Sodium Potassium Chloride Carbon Dioxide BUN Creatinine Glucose POC Glucose 143 H 161 H Lactic Acid Calcium Ionized Calcium Phosphorus Magnesium ALT Alkaline Phosphatase Total Creatine Kinase CK-MB (CK-2) Troponin T C-Reactive Protein Total Protein Albumin Urine WBC (Auto) Urine Creatinine Salicylates Miscellaneous Test Crossmatch See Detail 05/26/17 05/26/17 05/27/17 19:02 23:46 05:17 WBC 19.8 H RBC 3.35 L Hgb 9.7 L Hct 29.3 L RDW 17.8 H Plt Count Lymph % (Auto) [place] % (Auto) Eos % (Auto) Lymph # [place] # Eos # Seg Neutrophils % Seg Neuts % (Manual) 89.0 H Lymphocytes % (Manual) 6.0 L Monocytes % (Manual) Nucleated RBC % Seg Neutrophils # Seg Neutrophils # Man 17.6 H Lymphocytes # (Manual) Monocytes # (Manual) Eosinophils # (Manual) PT INR APTT D-Dimer POC ABG pH POC ABG pCO2 POC ABG pO2 Sodium Potassium Chloride Carbon Dioxide BUN Creatinine Glucose POC Glucose 108 H 173 H Lactic Acid Calcium Ionized Calcium Phosphorus Magnesium ALT Alkaline Phosphatase Total Creatine Kinase CK-MB (CK-2) Troponin T C-Reactive Protein Total Protein Albumin Urine WBC (Auto) Urine Creatinine Salicylates Miscellaneous Test Crossmatch 05/27/17 05/27/17 05/27/17 06:05 06:05 11:44 WBC 20.2 H RBC 3.30 L Hgb 9.2 L Hct 28.6 L RDW 17.7 H Plt Count Lymph % (Auto) [place] % (Auto) Eos % (Auto) Lymph # [place] # Eos # Seg Neutrophils % Seg Neuts % (Manual) 83.0 H Lymphocytes % (Manual) 7.0 L Monocytes % (Manual) Nucleated RBC % 1.0 H Seg Neutrophils # Seg Neutrophils # Man 16.8 H Lymphocytes # (Manual) Monocytes # (Manual) 1.2 H Eosinophils # (Manual) PT INR APTT D-Dimer POC ABG pH POC ABG pCO2 POC ABG pO2 Sodium Potassium Chloride Carbon Dioxide BUN 39 H Creatinine 1.4 H Glucose 162 H POC Glucose 138 H Lactic Acid Calcium 8.1 L Ionized Calcium Phosphorus Magnesium ALT Alkaline Phosphatase Total Creatine Kinase CK-MB (CK-2) Troponin T C-Reactive Protein Total Protein Albumin Urine WBC (Auto) Urine Creatinine Salicylates Miscellaneous Test Crossmatch 05/27/17 05/27/17 05/28/17 16:58 21:39 04:00 WBC RBC Hgb Hct RDW Plt Count Lymph % (Auto) [place] % (Auto) Eos % (Auto) Lymph # [place] # Eos # Seg Neutrophils % Seg Neuts % (Manual) Lymphocytes % (Manual) Monocytes % (Manual) Nucleated RBC % Seg Neutrophils # Seg Neutrophils # Man Lymphocytes # (Manual) Monocytes # (Manual) Eosinophils # (Manual) PT INR APTT D-Dimer POC ABG pH POC ABG pCO2 POC ABG pO2 Sodium Potassium Chloride Carbon Dioxide BUN 44 H Creatinine Glucose 148 H POC Glucose 148 H 149 H Lactic Acid Calcium 8.2 L Ionized Calcium Phosphorus Magnesium ALT Alkaline Phosphatase Total Creatine Kinase CK-MB (CK-2) Troponin T C-Reactive Protein Total Protein Albumin Urine WBC (Auto) Urine Creatinine Salicylates Miscellaneous Test Crossmatch 05/28/17 05/28/17 05/28/17 04:00 11:31 17:04 WBC 17.4 H RBC 3.08 L Hgb 9.0 L Hct 27.2 L RDW 17.6 H Plt Count Lymph % (Auto) [place] % (Auto) Eos % (Auto) Lymph # [place] # Eos # Seg Neutrophils % Seg Neuts % (Manual) 75.0 H Lymphocytes % (Manual) 5.0 L Monocytes % (Manual) 10.0 H Nucleated RBC % 2.0 H Seg Neutrophils # Seg Neutrophils # Man 13.1 H Lymphocytes # (Manual) 0.9 L Monocytes # (Manual) 1.7 H Eosinophils # (Manual) 0.5 H PT INR APTT D-Dimer POC ABG pH POC ABG pCO2 POC ABG pO2 Sodium Potassium Chloride Carbon Dioxide BUN Creatinine Glucose POC Glucose 205 H 129 H Lactic Acid Calcium Ionized Calcium Phosphorus Magnesium ALT Alkaline Phosphatase Total Creatine Kinase CK-MB (CK-2) Troponin T C-Reactive Protein Total Protein Albumin Urine WBC (Auto) Urine Creatinine Salicylates Miscellaneous Test Crossmatch 05/29/17 05/29/17 05/29/17 00:18 06:30 06:40 WBC RBC Hgb Hct RDW Plt Count Lymph % (Auto) Anderson % (Auto) Eos % (Auto) Lymph # Anderson # Eos # Seg Neutrophils % Seg Neuts % (Manual) Lymphocytes % (Manual) Monocytes % (Manual) Nucleated RBC % Seg Neutrophils # Seg Neutrophils # Man Lymphocytes # (Manual) Monocytes # (Manual) Eosinophils # (Manual) PT INR APTT D-Dimer POC ABG pH POC ABG pCO2 POC ABG pO2 Sodium Potassium Chloride Carbon Dioxide BUN 50 H Creatinine Glucose 145 H POC Glucose 167 H 126 H Lactic Acid Calcium 8.2 L Ionized Calcium Phosphorus Magnesium ALT Alkaline Phosphatase Total Creatine Kinase CK-MB (CK-2) Troponin T C-Reactive Protein Total Protein Albumin Urine WBC (Auto) Urine Creatinine Salicylates Miscellaneous Test Crossmatch 05/29/17 05/29/17 05/29/17 12:10 15:55 23:56 WBC RBC Hgb Hct RDW Plt Count Lymph % (Auto) Anderson % (Auto) Eos % (Auto) Lymph # Anderson # Eos # Seg Neutrophils % Seg Neuts % (Manual) Lymphocytes % (Manual) Monocytes % (Manual) Nucleated RBC % Seg Neutrophils # Seg Neutrophils # Man Lymphocytes # (Manual) Monocytes # (Manual) Eosinophils # (Manual) PT INR APTT D-Dimer POC ABG pH POC ABG pCO2 POC ABG pO2 Sodium Potassium Chloride Carbon Dioxide BUN Creatinine Glucose POC Glucose 189 H 209 H 54 L Lactic Acid Calcium Ionized Calcium Phosphorus Magnesium ALT Alkaline Phosphatase Total Creatine Kinase CK-MB (CK-2) Troponin T C-Reactive Protein Total Protein Albumin Urine WBC (Auto) Urine Creatinine Salicylates Miscellaneous Test Crossmatch 05/30/17 05/30/17 05/31/17 00:40 05:24 07:15 WBC RBC Hgb Hct RDW Plt Count Lymph % (Auto) Anderson % (Auto) Eos % (Auto) Lymph # Anderson # Eos # Seg Neutrophils % Seg Neuts % (Manual) Lymphocytes % (Manual) Monocytes % (Manual) Nucleated RBC % Seg Neutrophils # Seg Neutrophils # Man Lymphocytes # (Manual) Monocytes # (Manual) Eosinophils # (Manual) PT INR APTT D-Dimer POC ABG pH POC ABG pCO2 POC ABG pO2 Sodium Potassium 5.6 H Chloride Carbon Dioxide BUN 52 H 42 H Creatinine Glucose 56 L POC Glucose 163 H Lactic Acid Calcium 8.2 L 8.2 L Ionized Calcium Phosphorus Magnesium ALT Alkaline Phosphatase Total Creatine Kinase CK-MB (CK-2) Troponin T C-Reactive Protein Total Protein Albumin Urine WBC (Auto) Urine Creatinine Salicylates Miscellaneous Test Crossmatch 05/31/17 05/31/17 06/01/17 12:09 17:51 05:15 WBC RBC Hgb Hct RDW Plt Count Lymph % (Auto) Anderson % (Auto) Eos % (Auto) Lymph # Anderson # Eos # Seg Neutrophils % Seg Neuts % (Manual) Lymphocytes % (Manual) Monocytes % (Manual) Nucleated RBC % Seg Neutrophils # Seg Neutrophils # Man Lymphocytes # (Manual) Monocytes # (Manual) Eosinophils # (Manual) PT INR APTT D-Dimer POC ABG pH POC ABG pCO2 POC ABG pO2 Sodium 146 H Potassium Chloride Carbon Dioxide BUN 35 H Creatinine Glucose POC Glucose 127 H 138 H Lactic Acid Calcium 8.1 L Ionized Calcium Phosphorus Magnesium ALT Alkaline Phosphatase Total Creatine Kinase CK-MB (CK-2) Troponin T C-Reactive Protein Total Protein Albumin Urine WBC (Auto) Urine Creatinine Salicylates Miscellaneous Test Crossmatch 06/01/17 06/01/17 06/01/17 05:15 06:26 12:00 WBC 14.0 H RBC 2.76 L Hgb 7.9 L Hct 24.6 L RDW 16.9 H Plt Count 486 H Lymph % (Auto) 6.9 L Anderson % (Auto) 15.6 H Eos % (Auto) 6.1 H Lymph # 1.0 L Anderson # 2.2 H Eos # 0.8 H Seg Neutrophils % 70.5 H Seg Neuts % (Manual) Lymphocytes % (Manual) Monocytes % (Manual) Nucleated RBC % Seg Neutrophils # 9.8 H Seg Neutrophils # Man Lymphocytes # (Manual) Monocytes # (Manual) Eosinophils # (Manual) PT INR APTT D-Dimer POC ABG pH POC ABG pCO2 POC ABG pO2 Sodium Potassium Chloride Carbon Dioxide BUN Creatinine Glucose POC Glucose 65 L 109 H Lactic Acid Calcium Ionized Calcium Phosphorus Magnesium ALT Alkaline Phosphatase Total Creatine Kinase CK-MB (CK-2) Troponin T C-Reactive Protein Total Protein Albumin Urine WBC (Auto) Urine Creatinine Salicylates Miscellaneous Test Crossmatch
[2017-06-01] MEDS ORDERED: NACL 0.9% 1000 ML 500 ML IV SCH (13:00)
[2017-06-02] MEDS: NOVOLOG SUB-Q SCH ×3 (07:38→13:18)
[2017-06-02 08:12] LABS: Anion Gap 14 mmol/L; BUN/Creatinine Ratio 30; Blood Urea Nitrogen 24 mg/dL (7-17); Carbon Dioxide 30 mmol/L (22-30); Chloride 103.2 mmol/L (98-107); Glucose 85 mg/dL (65-100); Potassium 4.3 mmol/L (3.6-5.0); Sodium 143 mmol/L (137-145)
[2017-06-02] MEDS: PULMICORT IH SCH (09:11)
[2017-06-02] MEDS: DUONEB *Not for PRN Use IH SCH ×2 (09:11→14:00)
[2017-06-02] MEDS: BROVANA NEBU IH SCH (09:11)
[2017-06-02 09:14] VITALS: BP 97/54
--- NOTE | 2017-06-02 09:27 | Progress Note ---
Subjective Principal diagnosis: Septic shock,C. diff colitis Interval history: Patient was seen today for follow-up, on many renal related issues Patient currently denies having any symptoms of chest pain pressure shortness of breath Better aware about renal related issues Interdisciplinary notes were reviewed Vitals labs intake and output medications were reviewed from today Allergies: Reviewed Social history: Reviewed Family history: Reviewed Physical examination HEENT: Oral mucosa moist no pharyngeal erythema Neck: Supple no JVD Chest: Clear to auscultation no crackles rales or wheezes Heart: Regular rate and rhythm S1-S2 heard no S3-S4 Abdomen: Soft nontender no renal bruit no CVA tenderness no suprapubic fullness Extremity: Mild edema dry skin no peripheral cyanosis pulses palpable Neurological: Alert awake Musculoskeletal: No joint effusion noted Assessment and plan acute kidney injury: Currently in remission patient required temporary dialysis in the past History of C. difficile colitis status post colectomy May 21 Has had septic shock metabolic acidosis COPD currently oxygen dependent at home Avoid nephrotoxic medication Renal function normalized We'll sign off the case is call if needed patient to make a follow-up appointment office upon discharge Will continue to follow and make recommendation from renal standpoint Objective - Vital Signs Vital signs: Vital Signs - 12hr 06/01/17 06/02/17 06/02/17 22:00 04:28 08:00 Temperature 97.6 F Pulse Rate Pulse Rate [ 98 H Anterior Bilateral Throughout] Pulse Rate [ 100 H From Monitor] Respiratory 20 16 Rate Respiratory 17 Rate [Anterior Bilateral Throughout] Blood Pressure 94/54 O2 Sat by Pulse 100 Oximetry 06/02/17 06/02/17 09:02 09:12 Temperature 98.4 F Pulse Rate 94 H Pulse Rate [ 97 H Anterior Bilateral Throughout] Pulse Rate [ From Monitor] Respiratory 22 Rate Respiratory 18 Rate [Anterior Bilateral Throughout] Blood Pressure 97/54 O2 Sat by Pulse 96 96 Oximetry - Lab 06/01/17 05:15 06/02/17 07:45 Most recent lab results Calcium 8.0 mg/dL (8.4-10.2) L 06/02/17 07:45 Phosphorus 4.40 mg/dL (2.5-4.5) 05/29/17 06:40 Magnesium 1.70 mg/dL (1.7-2.3) 05/29/17 06:40 Urine Creatinine 28.0 mg/dL (0.1-20.0) H 05/05/17 Unknown Urine Sodium 129 mmol/L 05/05/17 Unknown
[2017-06-02 09:42] LABS: Basophils % (Auto) 0.9 % (0.0-1.8); Eosinophils % (Auto) 7.7 % (0.0-4.3); Hematocrit 30.2 % (30.3-42.9); Hemoglobin 9.8 gm/dl (10.1-14.3); Mean Corpuscular HGB Conc 33 % (30-34); Mean Corpuscular Hemoglobin 29 pg (28-32); Mean Corpuscular Volume 88 fl (79-97); Platelet Count 603 K/mm3 (140-440); Red Blood Count 3.43 M/mm3 (3.65-5.03); Red Cell Distribution Width 17.5 % (13.2-15.2); White Blood Count 11.5 K/mm3 (4.5-11.0)
[2017-06-02] MEDS ORDERED: PEPCID PO SCH (10:00)
[2017-06-02] MEDS ORDERED: LASIX PO SCH (10:00)
--- NOTE | 2017-06-02 11:24 | Progress Note ---
Assessment and Plan Pt feeling well without compl. keara solid diet Abd soft. h/h improved post transfusion surgically stable d/c cally will follow prn rto I month Selected Entries 06/02/17 09:02 Temperature 98.4 F Blood Pressure 97/54 Laboratory Tests 06/02/17 06/02/17 07:45 09:20 WBC 11.5 H Hgb 9.8 L Hct 30.2 L Sodium 143 Potassium 4.3 Chloride 103.2 Carbon Dioxide 30 BUN 24 H Creatinine 0.8 Objective Vital Signs - 12hr 06/02/17 06/02/17 06/02/17 04:28 08:00 09:02 Temperature 97.6 F 98.4 F Pulse Rate 94 H Pulse Rate [ 98 H Anterior Bilateral Throughout] Respiratory 16 22 Rate Respiratory 17 Rate [Anterior Bilateral Throughout] Blood Pressure 94/54 97/54 O2 Sat by Pulse 96 Oximetry 06/02/17 09:12 Temperature Pulse Rate Pulse Rate [ 97 H Anterior Bilateral Throughout] Respiratory Rate Respiratory 18 Rate [Anterior Bilateral Throughout] Blood Pressure O2 Sat by Pulse 96 Oximetry - Labs 06/02/17 09:20 06/02/17 07:45 Diabetes panel 06/02/17 Range/Units 07:45 Sodium 143 (137-145) mmol/L Potassium 4.3 (3.6-5.0) mmol/L Chloride 103.2 (98-107) mmol/L Carbon Dioxide 30 (22-30) mmol/L BUN 24 H (7-17) mg/dL Creatinine 0.8 (0.7-1.2) mg/dL Glucose 85 (65-100) mg/dL Calcium 8.0 L (8.4-10.2) mg/dL Calcium panel 06/02/17 Range/Units 07:45 Calcium 8.0 L (8.4-10.2) mg/dL Pituitary panel 06/02/17 Range/Units 07:45 Sodium 143 (137-145) mmol/L Potassium 4.3 (3.6-5.0) mmol/L Chloride 103.2 (98-107) mmol/L Carbon Dioxide 30 (22-30) mmol/L BUN 24 H (7-17) mg/dL Creatinine 0.8 (0.7-1.2) mg/dL Glucose 85 (65-100) mg/dL Calcium 8.0 L (8.4-10.2) mg/dL Adrenal panel 06/02/17 Range/Units 07:45 Sodium 143 (137-145) mmol/L Potassium 4.3 (3.6-5.0) mmol/L Chloride 103.2 (98-107) mmol/L Carbon Dioxide 30 (22-30) mmol/L BUN 24 H (7-17) mg/dL Creatinine 0.8 (0.7-1.2) mg/dL Glucose 85 (65-100) mg/dL Calcium 8.0 L (8.4-10.2) mg/dL
--- NOTE | 2017-06-02 12:50 | Discharge Summary ---
Providers - Providers Date of Admission: 05/04/17 22:48 Date of discharge: 06/02/17 Attending physician: BRIANNE TORIBIO MD 05/04/17 22:51 Consult to Physician [CONS] Routine Consulting Provider: LINETTE MONTIEL Reason For Exam: arf Notified:: junior legal secretary pl call 05/05/17 01:03 Consult to Physician [CONS] Routine Consulting Provider: CHAVO MCDONNELL Reason For Exam: colitis Notified:: junior legal secretary pl call 05/05/17 14:09 Consult to Physician [CONS] Routine Consulting Provider: FLAQUITO ROLLINS Reason For Exam: sepsis Place consult to:: dr foreman Notified:: yes Phone number called:: [phone] Was contact made?: Yes If yes, spoke with:: dr foreman Time called:: 17:30 Comment:: will see in the morning 05/09/17 13:02 PICC Line Insertion [Consult to PICC Line RN] [CONS] Urgent Reason For Exam: Vascular access Type Line:: PICC 05/13/17 10:02 Physical Therapy Evaluation and Treat [CONS] Routine Comment: Reason For Exam: Eval and treat 05/13/17 12:03 Physical Therapy Evaluation and Treat [CONS] Routine Comment: Reason For Exam: Generalized weakness 05/17/17 10:28 Consult to Dietitian/Nutrition [CONS] Routine Physician Instructions: Reason For Exam: Reason for Consult: Write/Manage Tube Feeding 05/18/17 10:34 Consult to Physician [CONS] Urgent Consulting Provider: CHARLIE LOPEZ Reason For Exam: dialysis catheter Place consult to:: physician himself Notified:: yes 05/22/17 15:26 Consult to Dietitian/Nutrition [CONS] Routine Physician Instructions: Reason For Exam: TPN Reason for Consult: Write/Manage TPN/PPN 05/28/17 11:21 Consult to Case Management [CONS] Routine Services Needed at Discharge: Other Notified:: Jeri Phone number called:: in person Was contact made?: Yes If yes, spoke with:: Jeri Time called:: 11:43 Additional Physician Instructions: 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: Prevnar single dose and 8 weeks later Pneumovax Haemophilus influenza vaccine - one dose Menactra - (meningococcal vaccine) - one dose 05/29/17 12:14 Physical Therapy Evaluation and Treat [CONS] Routine Comment: Reason For Exam: ambulate as keara 05/29/17 15:38 Physical Therapy Evaluation and Treat [CONS] Routine Comment: Placement Reason For Exam: Deconditioning 05/29/17 15:39 Occupational Therapy Evaluate and Treat [CONS] Routine Comment: Sub-acute rehab placement Reason For Exam: Deconditioning 05/30/17 12:08 Consult to Wound/ET Nurse [CONS] Routine Reason For Exam: ostomy teaching & better sealing of ostomy bag Primary care physician: PERIPATOLOGIST Hospitalization Reason for admission: Severe C.diff colitis, septic shock, acute respiratory failure, acute Condition: Stable Pertinent studies: CT abdomen and pelvis Chest x-ray Doppler ultrasound Procedures: Partial Colectomy with colostomy Hospital course: History of present illness: 61-year-old male with a history of hypertension, COPD, hyperlipidemia [facility] with complaints of diarrhea 1 week. She has multiple episodes per day, too numerous to count, also complaining of nausea vomiting and abdominal cramping, decrease oral intake. She had small amounts of blood 2, also has a history of hemorrhoids. Patient states she passed out. No fever or chills. Patient had very complicated hospital course. Patient was diagnosed with C. difficile colitis and was treated with antibiotics, but patient able to put toxic megacolon and explatory laparotomy with subtotal colectomy, with colostomy was done. Patient had septic shock and was treated with IV meropenem , pressors. Patient had acute respiratory failure and was intubated. Patient had acute renal failure and was on dialysis. Patient was on TPN. Patient gradually getting better, she was extubated, off pressors, TPN and finally become off C. difficile medications and transferred to the floor. In the floor patient was hemodynamically stable. And patient need subacute rehabilitation. I have discussed with ID and she recommended no isolation after discharge. ID, nephrology, chemical processing laborer, general surgery involved in the care of the patient. Disposition: [id number] [facility] Time spent for discharge: 31 minutes - Discharge Diagnoses (1) Acute renal failure on dialysis Status: Acute Comment: Patient was dialysed temporarily and currently off dialysis. (2) Acute respiratory failure Status: Acute (3) Altered mental status Status: Acute (4) Anemia Status: Acute (5) C. difficile colitis Status: Acute (6) Dehydration Status: Acute (7) Diarrhea Status: Acute (8) S/P laparotomy Status: Acute (9) Sepsis Status: Acute (10) Acute and chronic respiratory failure ([id number]) Status: Acute Qualifiers: Respiratory failure complication: hypoxia and hypercapnia Qualified Code(s) : J96.21 - Acute and chronic respiratory failure with hypoxia; J96.22 - Acute and chronic respiratory failure with hypercapnia; J96.22 - Acute and chronic respiratory failure with hypercapnia; J96.22 - Acute and chronic respiratory failure with hypercapnia (11) Acute exacerbation of chronic obstructive pulmonary disease (COPD) Status: Acute Core Measure Documentation - Palliative Care Palliative Care/ Comfort Measures: Not Applicable - Core Measures Any of the following diagnoses?: none Exam - Physical Exam Narrative exam: Not in cardiopulmonary distress. The patient appeared well nourished and normally developed. Vital signs as documented. Head exam is unremarkable. No scleral icterus . Neck is without jugular venous distension, thyromegaly, or carotid bruits. Lungs are clear to auscultation. Cardiac exam reveals regular rate and Rhythm. Tachycardia. Abdominal exam stomy draining greenish fluid. Extremities are nonedematous and both femoral and pedal pulses are normal. GUARD SUPERVISOR: Alert and oriented 3. No focal weakness. - Constitutional Vitals: Temp Pulse Resp BP Pulse Ox 98.4 F 97 H 18 97/54 96 06/02/17 09:02 06/02/17 09:12 06/02/17 09:12 06/02/17 09:02 06/02/17 09:12 Plan Activity: no restrictions Weight Bearing Status: Full Weight Bearing Diet: low cholesterol, low salt Additional Instructions: Please F/U at [facility] in 1 week Follow up with: PRIMARY MD CLAUDIA [Primary Care Provider] - 7 Days
[2017-06-02] MEDS ORDERED: TRIPLE ANTIBIOTIC TP NR (17:15)
[2017-06-05] MEDS ORDERED: [UNRECOGNIZED DRUG - OTHER] IM ONE (12:00)
[2017-06-05] MEDS ORDERED: Fluarix Quad 2017-2018(36 MOS+ IM ONE (12:00)
[2017-06-05] MEDS ORDERED: ACTHIB IM ONE (12:00)
[2017-06-05] MEDS ORDERED: PREVNAR 13 IM ONE (12:00)
== END 2017-06-02 18:45 | DRG 853 ==
LOC: ED 17:59 → CC1 22:48 → 4A 05-10 16:41 → CC1 05-15 23:31 → 3A 05-28 15:06
PROVIDERS: ADMIT Internal Medicine; ATTEND Internal Medicine
PROC: 02HV33Z Insertion of Infusion Device into Superior Vena Cava, Percutaneous Approach (ICD-10-PCS; 2017-05-04)
PROC: 4A033R1 Measurement of Arterial Saturation, Peripheral, Percutaneous Approach (ICD-10-PCS; 2017-05-05)
PROC: 5A09357 Assistance with Respiratory Ventilation, Less than 24 Consecutive Hours, Continuous Positive Airway Pressure (ICD-10-PCS; 2017-05-06)
PROC: 3E0234Z Introduction of Serum, Toxoid and Vaccine into Muscle, Percutaneous Approach (ICD-10-PCS; 2017-05-07)
PROC: 5A09357 Assistance with Respiratory Ventilation, Less than 24 Consecutive Hours, Continuous Positive Airway Pressure (ICD-10-PCS; 2017-05-08)
PROC: 02HV33Z Insertion of Infusion Device into Superior Vena Cava, Percutaneous Approach (ICD-10-PCS; 2017-05-09)
PROC: 5A09357 Assistance with Respiratory Ventilation, Less than 24 Consecutive Hours, Continuous Positive Airway Pressure (ICD-10-PCS; 2017-05-09)
PROC: 5A09357 Assistance with Respiratory Ventilation, Less than 24 Consecutive Hours, Continuous Positive Airway Pressure (ICD-10-PCS; 2017-05-14)
PROC: 5A1955Z Respiratory Ventilation, Greater than 96 Consecutive Hours (ICD-10-PCS; 2017-05-16)
PROC: 0BH17EZ Insertion of Endotracheal Airway into Trachea, Via Natural or Artificial Opening (ICD-10-PCS; 2017-05-16)
PROC: 5A1D70Z Performance of Urinary Filtration, Intermittent, Less than 6 Hours Per Day (ICD-10-PCS; 2017-05-18)
PROC: 02HV33Z Insertion of Infusion Device into Superior Vena Cava, Percutaneous Approach (ICD-10-PCS; 2017-05-18)
PROC: B548ZZA Ultrasonography of Superior Vena Cava, Guidance (ICD-10-PCS; 2017-05-18)
PROC: 5A1D70Z Performance of Urinary Filtration, Intermittent, Less than 6 Hours Per Day (ICD-10-PCS; 2017-05-19)
PROC: 5A1D70Z Performance of Urinary Filtration, Intermittent, Less than 6 Hours Per Day (ICD-10-PCS; 2017-05-20)
PROC: 30233K1 Transfusion of Nonautologous Frozen Plasma into Peripheral Vein, Percutaneous Approach (ICD-10-PCS; 2017-05-20)
PROC: 0DBH0ZZ Excision of Cecum, Open Approach (ICD-10-PCS; principal; 2017-05-21)
PROC: 0DBN0ZZ Excision of Sigmoid Colon, Open Approach (ICD-10-PCS; 2017-05-21)
PROC: 0D1B0Z4 Bypass Ileum to Cutaneous, Open Approach (ICD-10-PCS; 2017-05-21)
PROC: 07TP0ZZ Resection of Spleen, Open Approach (ICD-10-PCS; 2017-05-21)
PROC: 0DBB0ZZ Excision of Ileum, Open Approach (ICD-10-PCS; 2017-05-21)
PROC: 30233L1 Transfusion of Nonautologous Fresh Plasma into Peripheral Vein, Percutaneous Approach (ICD-10-PCS; 2017-05-21)
PROC: 30233N1 Transfusion of Nonautologous Red Blood Cells into Peripheral Vein, Percutaneous Approach (ICD-10-PCS; 2017-05-21)
PROC: 5A1D70Z Performance of Urinary Filtration, Intermittent, Less than 6 Hours Per Day (ICD-10-PCS; 2017-05-23)
DX: A41.9 Sepsis, unspecified organism (principal); J96.01 Acute respiratory failure with hypoxia; N17.0 Acute kidney failure with tubular necrosis; R65.21 Severe sepsis with septic shock; E43 Unspecified severe protein-calorie malnutrition; G93.40 Encephalopathy, unspecified; N39.0 Urinary tract infection, site not specified; E87.0 Hyperosmolality and hypernatremia; A04.72 Enterocolitis due to Clostridium difficile, not specified as recurrent; J44.1 Chronic obstructive pulmonary disease with (acute) exacerbation; Z68.1 Body mass index [BMI] 19.9 or less, adult; I95.9 Hypotension, unspecified; R55 Syncope and collapse; D64.9 Anemia, unspecified; E86.0 Dehydration; R33.9 Retention of urine, unspecified; M19.90 Unspecified osteoarthritis, unspecified site; E83.51 Hypocalcemia; E88.09 Other disorders of plasma-protein metabolism, not elsewhere classified; E83.42 Hypomagnesemia; E87.6 Hypokalemia; R73.9 Hyperglycemia, unspecified; I27.20 Pulmonary hypertension, unspecified; N18.9 Chronic kidney disease, unspecified; I12.9 Hypertensive chronic kidney disease with stage 1 through stage 4 chronic kidney disease, or unspecified chronic kidney disease; Z90.710 Acquired absence of both cervix and uterus; Z79.899 Other long term (current) drug therapy; Z79.82 Long term (current) use of aspirin; Z82.49 Family history of ischemic heart disease and other diseases of the circulatory system; Z23 Encounter for immunization
CPT/HCPCS: 31500; 36415; 36430; 36600; 36620; 70450; 71010; 74000; 74176; 80048; 80053; 80061; 80074; 80307; 80320; 81001; 82140; 82270; 82330; 82436; 82550; 82553; 82570; 82803; 82947; 82962; 83735; 84100; 84133; 84300; 84443; 84484; 85007; 85014; 85018; 85025; 85027; 85379; 85610; 85730; 86140; 86850; 86900; 86901; 86920; 87040; 87045; 87070; 87086; 87205; 87493; 88305; 88307; 90686; 93005; 93010; 93306; 93970; 94002; 94003; 94640; 94660; 94760; 96361; 96365; A4649; A6250; G0480; G8978-GP; G8979-GP; G8987-GO; G8988-GO; J0610; J0696; J0885; J1170; J1200; J1644; J1815; J1940; J1956; J2060; J2185; J2250; J2270; J2370; J2405; J2543; J2920; J2997; J3010; J3370; J3475; J3480; J7030; J7040; J7050; J7070; P9016; P9017; P9047

== ENCOUNTER 2017-06-12 16:55 | Inpatient (IN) | payer MEDICARE ==
[2017-06-12 18:07] LABS: Calcium 8.3 mg/dL (8.4-10.2)
[2017-06-12 18:18] LABS: Hematocrit 35.6 % (30.3-42.9); Mean Corpuscular HGB Conc 31 % (30-34); Mean Corpuscular Hemoglobin 28 pg (28-32); Mean Corpuscular Volume 92 fl (79-97); Red Blood Count 3.87 M/mm3 (3.65-5.03); Red Cell Distribution Width 16.9 % (13.2-15.2)
[2017-06-12 18:26] LABS: Platelet Count 1256 K/mm3 (140-440)
[2017-06-12 18:27] LABS: Chol/HDL Ratio 2.14 %
[2017-06-12] MEDS ORDERED: NACL 0.9% 1000 ML 1,000 ML IV ONE (18:30)
[2017-06-12] MEDS ORDERED: NACL 0.9% 1000 ML 1,000 ML ONE (18:31)
[2017-06-12] MEDS ORDERED: PROVENTIL IH ONE (18:31)
[2017-06-12] MEDS ORDERED: KIONEX PO ONE (18:32)
[2017-06-12] MEDS ORDERED: D50W (25GM) Syringe IV ONE (18:32)
--- NOTE | 2017-06-12 18:36 | Emergency Department Report ---
HPI - General Chief Complaint: Weakness Time Seen by Provider: 06/12/17 18:05 - HPI HPI: This is a 62-year-old -[place] female who presents to the emergency department EMS from [facility] with complaints of low sodium. The patient was recently at [facility] for hyponatremia as well as some renal insufficiency. It appears as if she was discharged on 05/09. She has a past medical history in the chart of COPD, renal insufficiency , malnutrition, anemia and a history of recent C. difficile colitis. The primary care physician is listed as Dr. Mars Osborne. The patient herself is currently AAO 3 and complaining of some leg pain that she says is most likely her arthritis. She presents with some low blood pressure. Unknown if the patient received anything for her symptoms prior to presentation or in route. ED Past Medical Hx - Past Medical History Hx Hypertension: Yes (Pt with worsening septic shock, on levophed.) Hx CVA: No Hx Heart Attack/AMI: No Hx Congestive Heart Failure: No Hx Diabetes: No Hx Deep Vein Thrombosis: No Hx Pulmonary Embolism: No Hx GERD: No Hx Liver Disease: No Hx Renal Disease: Yes (LUIS) Hx Sickle Cell Disease: No Hx Arthritis: Yes Hx Headaches / Migraines: No Hx Seizures: No Hx Kidney Stones: No Hx Psychiatric Treatment: No Hx Asthma: Yes Hx COPD: Yes Hx Tuberculosis: No Hx Dementia: No Hx HIV: No Additional medical history: HIGH CHOLESTEROL. Home O2 - Surgical History Hx Coronary Stent: No Hx Open Heart Surgery: No Hx Pacemaker: No Hx Internal Defibrillator: No Hx Cholecystectomy: No Hx Appendectomy: No Hx Breast Surgery: No Additional Surgical History: HYSTERECTOMY - Social History Smoking Status: Former Smoker Substance Use Type: None - Medications Home Medications: Home Medications Medication Instructions Recorded Confirmed Last Taken Type Acetaminophen [Acetaminophen TAB] 650 mg PO Q4H PRN #30 tablet 12/24/1603/14/17 08:00 Rx Arformoterol Nebu [Brovana Nebu] 15 mcg IH Q12HRT #1 ml 03/19/17 05/05/17 Unknown Rx Aspirin [Aspirin BABY CHEW TAB] 81 mg PO QDAY #30 tab.chew 03/19/17 05/05/17 Unknown Rx Famotidine [Pepcid] 20 mg PO BID #60 tablet 03/19/17 05/05/17 Unknown Rx Ipratropium/Albuterol Sulfate 1 ampul IH TIDRT #30 ampul.neb 03/19/17 05/05/17 Unknown Rx [DUONEB *Not for PRN Use*] guaiFENesin ER [Mucinex ER] 600 mg PO BID #10 tablet 03/19/17 05/05/17 Unknown Rx Famotidine [Pepcid] 10 mg PO BID tablet 06/02/17 Unknown Rx ED Review of Systems ROS: Stated complaint: LOW SODIUM Other details as noted in HPI Comment: All other systems reviewed and negative Constitutional: weakness. denies: chills, fever Eyes: denies: eye pain, eye discharge, vision change ENT: denies: ear pain, throat pain Respiratory: denies: cough, shortness of breath, wheezing Cardiovascular: denies: chest pain, palpitations Gastrointestinal: nausea. denies: abdominal pain Genitourinary: denies: urgency, dysuria, discharge Musculoskeletal: arthralgia. denies: joint swelling Skin: denies: rash, lesions Neurological: denies: headache, numbness Physical Exam - Physical Exam Vital Signs: Vital Signs 06/12/17 06/12/17 06/12/17 16:59 17:16 17:20 Temperature 98.4 F Pulse Rate 83 90 86 Respiratory 16 19 19 Rate Blood Pressure 75/38 O2 Sat by Pulse 99 100 Oximetry 06/12/17 06/12/17 17:40 18:00 Temperature Pulse Rate 86 91 H Respiratory 18 22 Rate Blood Pressure 124/96 81/32 O2 Sat by Pulse Oximetry Physical Exam: GENERAL: The patient is very thin and malnourished appearing. She is ill- appearing. HENT: Normocephalic. Atraumatic. Patient has moist mucous membranes. EYES: Extraocular motions are intact. Pupils equal reactive to light bilaterally. NECK: Supple. No meningitic signs are noted. There is no adenopathy noted. CHEST/LUNGS: Clear to auscultation. There is no respiratory distress noted. HEART/CARDIOVASCULAR: Regular. There is no tachycardia. There is no murmur. ABDOMEN: Abdomen is soft, nontender. Patient has normal bowel sounds. There is no abdominal distention. There is a colostomy bag in the right lower abdomen. SKIN: Skin is warm and dry. She has some sacral decubitus wound/ulcers. NEURO: The patient is awake and alert but mostly nonverbal. She will follow some commands. Withdraws from painful stimuli. MUSCULOSKELETAL: There is no tenderness to palpation. She has very thin and atrophic extremities. Radial pulse +2 over 4 bilaterally. ED Course Vital Signs 06/12/17 06/12/17 06/12/17 16:59 17:16 17:20 Temperature 98.4 F Pulse Rate 83 90 86 Respiratory 16 19 19 Rate Blood Pressure 75/38 O2 Sat by Pulse 99 100 Oximetry 06/12/17 06/12/17 17:40 18:00 Temperature Pulse Rate 86 91 H Respiratory 18 22 Rate Blood Pressure 124/96 81/32 O2 Sat by Pulse Oximetry - Consultations Consultation #1: I spoke to the net maker on-call, Dr. August, who requested the patient receive the entire hyperkalemia cocktail including calcium. He asked for the patient to receive 3 amps of sodium bicarbonate and then start a sodium bicarbonate drip. Recheck the potassium level in 2 hours. 06/12/17 18:48 - Central Line Placement Right Femoral Consent Obtained: verbal consent Time Out Performed: Yes Patient Placed on Monitor/Pulse Ox: Yes MD Prep: mask, gown, gloves Central Line Prep: Chlorhexidine scrub Local Anesthesia Used: Lidocaine 1% Amount of Anesthesia Used (mls): 3 Ultrasound Used for Placement: Yes Central Line Lumen Inserted: triple Bloods Obtained for Lab: Yes Central Line Position: good blood return, all ports aspirated, flus, sutured in place with nyl Dressing Applied: Tegaderm, sterile gauze/tape Patient Tolerated Procedure: well Complications: none ED Medical Decision Making - Lab Data Result diagrams: 06/12/17 18:00 06/12/17 22:38 - EKG Data -: EKG Interpreted by Me EKG shows normal: sinus rhythm, axis, intervals, QRS complexes, ST-T waves ( nonspecific ST-T waves) Rate: normal - EKG Data When compared to previous EKG there are: previous EKG unavailable Interpretation: nonspecific ST-T wave kylie - Radiology Data Radiology results: image reviewed interpreted by me: Chest x-ray does not appear to show any signs of pneumonia, pneumothorax or pleural effusions in this poor study. - Medical Decision Making Patient presented with previous labs showing hyponatremia and she presented with some hypotension. She was also found to have thrombocytosis and acute renal failure showing signs of dehydration. I spoke to the net maker clinical rehab liaison regarding her hyponatremia and hyperkalemia and renal failure and was given some instructions for sodium bicarbonate administration. She received 2 L of IV fluid and still had hypotension so a right femoral central line was placed and the patient was started on pressors. Her repeat metabolic panel show some improvement of the hyponatremia and hyperkalemia. She will be admitted to the ICU for further evaluation and treatment has been accepted for admission by the hospitalist, Dr. Palomo. - Differential Diagnosis Sepsis, adrenal insufficiency, hypothyroid, protein-calorie malnutrition Critical Care Time: Yes Critical care time in (mins) excluding proc time.: 35 Critical care attestation.: If time is entered above; I have spent that time in minutes in the direct care of this critically ill patient, excluding procedure time. Critical care time spent on this patient during her initial dilation, multiple re-evaluations, IV fluid resuscitation, ordering an interpretation of labs and imaging, discussion with the patient and her family, discussion with the net maker, titration of pressors. This does not include the time spent doing the central line procedure. Critical Care Time: 35 minutes ED Disposition Clinical Impression: Thrombocytosis, Hyperkalemia, Dehydration Hypotension Qualifiers: Hypotension type: unspecified hypotension type Qualified Code(s): I95.9 - Hypotension, unspecified Acute renal failure Qualifiers: Acute renal failure type: unspecified Qualified Code(s): N17.9 - Acute kidney failure, unspecified Disposition: 09 OP ADMIT IP TO THIS HOSP Is pt being admited?: Yes Condition: Serious Time of Disposition: 20:45
[2017-06-12] MEDS ORDERED: SODIUM BICARBONATE IV ONE ×4 (18:45→20:00)
--- NOTE | 2017-06-12 18:59 | XRay Report ---
FINAL REPORT EXAM: XR CHEST 1V AP HISTORY: Weakness TECHNIQUE: AP portable view of the chest PRIORS: CXR 05/24/2017 FINDINGS: Lines, tubes, and devices: N/A Lungs and pleura: Trachea is normal in position. Patient is markedly rotated to the left. Lungs are hyperinflated with flattened hemidiaphragms consistent with COPD. Lungs are clear of infiltrate, pleural effusion, vascular congestion, or pneumothorax. No change. Cardiomediastinal silhouette: Cardiac and mediastinal silhouettes are unremarkable. Other: Bony structures are intact. IMPRESSION: No acute cardiopulmonary process seen. No change. Evidence for hyperinflation and COPD. Exam is limited as the patient is rotated to the left.
[2017-06-12 19:07] LABS: Eosinophils % (Manual) 0 % (0.0-4.3); Total Cells Counted 100
[2017-06-12 19:08] LABS: Anisocytosis 1+; Poikilocytosis 1+
[2017-06-12 19:09] LABS: Acanthocytes 1+; Large Platelets Few; Platelet Estimate Appears Increased
[2017-06-12] MEDS ORDERED: CALCIUM GLUCONATE 1,000 MG in NACL 0.9% 100 ML IV ONE (19:45)
[2017-06-12] MEDS ORDERED: SODIUM BICARBONATE 150 MEQ in D5W 1,000 ML IV ONE (20:00)
[2017-06-12] MEDS ORDERED: VANCOMYCIN VIAL IV ONE (21:55)
[2017-06-12] MEDS ORDERED: TYLENOL PO PRN (21:56)
--- NOTE | 2017-06-12 21:59 | History and Physical Report ---
History of Present Illness Date of examination: 06/12/17 History of present illness: 61-year-old male with a history of hypertension, COPD, hyperlipidemia was just discharged from the hospital on June 02 after complicated course of C. difficile colitis, status post colectomy . The patient was transferred from rehabilitation to the emergency room for evaluation of hypotension. Patient is very lethargic, unable to give a history, she was started on IV fluid, levophed. Review of system is unobtainable PAST MEDICAL HISTORY:hypertension, COPD, hyperlipidemia PAST SURGICAL HISTORY: Hysterectomy, partial colectomy FAMILY HISTORY:hypertension SOCIAL HISTORY: Denies alcohol, tobacco, drugs Medications and Allergies Allergies Allergy/AdvReac Type Severity Reaction Status Date / Time No Known Allergies Allergy Verified 05/23/15 12:02 Home Medications Medication Instructions Recorded Confirmed Last Taken Type Acetaminophen [Acetaminophen TAB] 650 mg PO Q4H PRN #30 tablet 12/24/1603/14/17 08:00 Rx Arformoterol Nebu [Brovana Nebu] 15 mcg IH Q12HRT #1 ml 03/19/17 06/14/17 Unknown Rx Aspirin [Aspirin BABY CHEW TAB] 81 mg PO QDAY #30 tab.chew 03/19/17 06/14/17 Unknown Rx Ipratropium/Albuterol Sulfate 1 ampul IH TIDRT #30 ampul.neb 03/19/17 06/14/17 Unknown Rx [DUONEB *Not for PRN Use*] guaiFENesin ER [Mucinex ER] 600 mg PO BID #10 tablet 03/19/17 06/14/17 Unknown Rx Famotidine [Pepcid] 10 mg PO BID tablet 06/02/17 06/14/17 Unknown Rx Acetaminophen [Acetaminophen TAB] 650 mg PO Q4H PRN tablet 06/20/17 Unknown Rx Arformoterol Nebu [Brovana Nebu] 15 mcg IH Q12HRT ml 06/20/17 Unknown Rx Budesonide [Pulmicort Respules] 0.5 mg IH Q12HRT nebu 06/20/17 Unknown Rx Ipratropium/Albuterol Sulfate 1 ampul IH TIDRT ampul.neb 06/20/17 Unknown Rx [DUONEB *Not for PRN Use*] Lipase/Protease/Amylase [Pancreaze 1 each FEEDTUBE PRN PRN capsule 06/20/[address] 10,500 Unit] Min Oil/Petrolatum [Artificial 1 applic OU Q4H PRN tube 06/20/17 Unknown Rx Tears Ophth Oint] Oxycodone HCl/Acetaminophen 1 each PO Q6HR PRN #30 tablet 06/20/17 Unknown Rx [Percocet 10/325 mg] Petrolatum,White [Vaseline Lip 1 applic TP Q2H PRN tube 06/20/17 Unknown Rx Therapy] Simple Syrup 15 ml FEEDTUBE PRN PRN oral.liqd 06/20/17 Unknown Rx Simple Syrup 30 ml FEEDTUBE PRN PRN oral.liqd 06/20/17 Unknown Rx Sodium Bicarbonate 325 mg FEEDTUBE PRN PRN tablet 06/20/17 Unknown Rx predniSONE [Deltasone] 40 mg PO QDAY tablet 06/20/17 Unknown Rx Active Meds: Active Medications Sodium Bicarbonate 150 meq/ (Dextrose) 1,150 mls @ 100 mls/hr IV ONCE.ED ONE Stop: 06/13/17 07:29 Last Admin: 06/12/17 19:40 Dose: 100 mls/hr Norepinephrine (Levophed Drip 4 Mg/Ns 250 Ml) 4 mg in 250 mls @ 7.5 mls/hr IV TITR DUNG; 2 MCG/MIN PRN Reason: Protocol Sodium Chloride (Nacl 0.9% 1000 Ml) 1,000 mls @ 125 mls/hr IV DIRECT DUNG Piperacillin Sod/Tazobactam Sod (Zosyn/Ns 2.25 Gm/50ml) 2.25 gm in 50 mls @ 100 mls/hr IV Q8HR DUNG PRN Reason: Protocol Vancomycin HCl (Vancomycin Pharmacy To Dose) 1 each IV PKCONSULT DUNG PRN Reason: Protocol Vancomycin HCl (Vancomycin Vial) 500 mg 15 mg/kg (500 mg) IV ONCE ONE PRN Reason: Protocol Stop: 06/12/17 21:56 Exam - Physical Exam Narrative exam: Gen. appearance: Patient lying in bed in no acute distress HEENT: Normocephalic/atraumatic, pupils equal round reactive to light, extra alkaline movement intact, no scleral icterus, no JVD or thyromegaly or nodule, neck is supple, mucous membrane moist, no erythema or exudate Heart: S1-S2, regular rate and rhythm Lungs: Clear to auscultation bilateral breathing comfortable Abdomen: Positive bowel sounds, nontender, colostomy bag, no organomegaly Extremities: No edema, cyanosis, clubbing Neuro:: Lethargic Skin: No rash, nodules, warm dry - Constitutional Vitals: Temp Pulse Resp BP Pulse Ox 98.4 F 88 18 85/43 100 06/12/17 16:59 06/12/17 21:07 06/12/17 21:07 06/12/17 21:07 06/12/17 21:07 Results - Labs CBC & Chem 7: 06/20/17 Unknown 06/20/17 Unknown Labs: Abnormal lab results 06/12/17 06/12/17 06/12/17 Range/Units 17:44 18:00 18:56 WBC 15.2 H (4.5-11.0) K/mm3 RDW 16.9 H (13.2-15.2) % Plt Count 1256 H* (140-440) K/mm3 Seg Neuts % (Manual) 85.0 H (40.0-70.0) % Lymphocytes % (Manual) 4.0 L (13.4-35.0) % Monocytes % (Manual) 8.0 H (0.0-7.3) % Basophils % (Manual) 2.0 H (0.0-1.8) % Seg Neutrophils # Man 12.9 H (1.8-7.7) K/mm3 Lymphocytes # (Manual) 0.6 L (1.2-5.4) K/mm3 Monocytes # (Manual) 1.2 H (0.0-0.8) K/mm3 Basophils # (Manual) 0.3 H (0.0-0.1) K/mm3 Sodium 126 L (137-145) mmol/L Potassium 6.6 H* (3.6-5.0) mmol/L Chloride 91.7 L (98-107) mmol/L Carbon Dioxide 11 L (22-30) mmol/L BUN 70 H (7-17) mg/dL Creatinine 3.9 H (0.7-1.2) mg/dL POC Glucose 108 H (70-105) Calcium 8.3 L (8.4-10.2) mg/dL Troponin T 0.073 H (0.00-0.029) ng/mL LDL Cholesterol Direct 32 L (50-130) mg/dL - Imaging and Cardiology EKG: image reviewed Chest x-ray: image reviewed Assessment and Plan Assessment Septic shock Acute renal failure Hyperkalemia Hyponatremia Chronically elevated troponin COPD Plan Admit to medicine Start IV fluid, levophed drip Start IV vancomycin, Zosyn, check UA, follow cultures consult renal, critical care, Check lactate, ultrasound of the kidneys Follow potassium levels, cardiac enzymes DVT prophylaxis
[2017-06-12] MEDS ORDERED: VANCOMYCIN PHARMACY TO DOSE IV SCH (22:00)
[2017-06-12] MEDS: LEVOPHED DRIP 4 MG/NS 250 ML 4 MG/250 ML BAG IV SCH (22:03)
[2017-06-12] MEDS ORDERED: VANCOMYCIN 750 MG in NACL 0.9% 250ML 250 ML IV ONE (22:30)
[2017-06-12 22:36] LABS: Creatine Kinase MB 2.5 ng/mL (0.0-4.0)
[2017-06-12] MEDS: ZOSYN/NS 2.25 GM/50ML 2.25 GM/50 ML BAG IV SCH (23:01)
[2017-06-12 23:13] LABS: Calcium 8.2 mg/dL (8.4-10.2)
[2017-06-13 01:57] LABS: Bacteria,Urine 3+ /HPF (Negative); Bilirubin,Urine NEG (Negative); Blood,Urine LG (Negative); Color,Urine Red (Yellow); Nitrite,Urine NEG (Negative); Urobilinogen,Urine < 2.0 mg/dL (<2.0)
[2017-06-13 02:08] LABS: RBC,Urine > 182.0 /HPF (0.0-6.0); WBC,Urine > 182.0 /HPF (0.0-6.0)
--- NOTE | 2017-06-13 02:41 | Ultrasound Report ---
FINAL REPORT EXAM: US ABDOMEN LIMITED HISTORY: arf COMPARISON: CT of the abdomen and pelvis from April 2017. TECHNIQUE: Several real-time grayscale and color Doppler images were obtained. FINDINGS: Visualized portions of the liver and pancreas are homogeneous in echogenicity. Visualized aorta is normal in caliber. Proximal aorta measures 1.5 centimeters in diameter. No shadowing gallstones. No gallbladder wall thickening. Trace free fluid at the anterior margin the gallbladder. Common bile duct measures 3 millimeters within normal limits. Right kidney measures 10.0 centimeters in length. No hydronephrosis. IMPRESSION: No shadowing gallstones or biliary dilatation. Probable trace fluid at the anterior margin of the gallbladder. This may relate to nonspecific ascites. There does not appear to be focal inflammation the gallbladder by ultrasound. Remainder of the study is within normal limits.
--- NOTE | 2017-06-13 04:23 | Ultrasound Report ---
FINAL REPORT EXAM: US RENAL BILAT HISTORY: arf TECHNIQUE: Routine imaging was obtained of the kidneys and bladder. FINDINGS: The right kidney is normal size contour and echotexture measuring 10 cm x 4.6 cm x 3.5 cm. The cortical thickness is 1.3 cm. There is no evidence of hydronephrosis. The left kidney is normal size contour and echotexture measuring 10.9 cm x 4.8 cm x 4.2 cm. The cortical thickness is 1.5 cm. There is no evidence of hydronephrosis or renal stones. There is a Castillo catheter in the bladder. IMPRESSION: No evidence of renal stones or hydronephrosis.
[2017-06-13] MEDS: LEVOPHED DRIP 4 MG/NS 250 ML 4 MG/250 ML BAG IV SCH ×2 (04:28→10:52)
[2017-06-13] MEDS: NACL 0.9% 1000 ML 1,000 ML IV SCH ×3 (05:47→17:31)
[2017-06-13] MEDS: ZOSYN/NS 2.25 GM/50ML 2.25 GM/50 ML BAG IV SCH ×3 (05:48→23:08)
[2017-06-13] MEDS ORDERED: NACL 0.9% 1000 ML 1,000 ML IV ONE ×2 (06:06→11:03)
--- NOTE | 2017-06-13 06:17 | Consultation ---
History of Present Illness - Reason for Consult Consult date: 06/13/17 Hypotension Requesting physician: OUSMANE SIN - History of Present Illness 62 y/o female, well known to our service as well helped to take care of her during her last hospital stay, presented to the ED yesterday from the correction with low Na. Na was 126 on admission. Per ED note, patient was AOx3 and complained of leg pain. The hospitalist note at 9pm states that the patient was very lethargic which she is for me on exam now. Other lab work shows an elevated white count as well as an extremely high platelet count elevated potassium, BUN and CR. BUN CR and potassium levels have all improved based on lab work from late last night. No blood work from today has resulted. Currently patient is having wound cared for. No family at bedside. She has a son and a daughter. During has last hospital stay, she had to have colectomy to help treat her C. Diff which she responded to well. She was intubated secondary to altered mental status from hypercapnea. Past History Past Medical History: COPD, other (C. Diff, malnutrition) Past Surgical History: bowel surgery Social history: no significant social history Family history: no significant family history Medications and Allergies Allergies Allergy/AdvReac Type Severity Reaction Status Date / Time No Known Allergies Allergy Verified 05/23/15 12:02 Home Medications Medication Instructions Recorded Confirmed Last Taken Type Acetaminophen [Acetaminophen TAB] 650 mg PO Q4H PRN #30 tablet 12/24/1603/14/17 08:00 Rx Arformoterol Nebu [Brovana Nebu] 15 mcg IH Q12HRT #1 ml 03/19/17 05/05/17 Unknown Rx Aspirin [Aspirin BABY CHEW TAB] 81 mg PO QDAY #30 tab.chew 03/19/17 05/05/17 Unknown Rx Famotidine [Pepcid] 20 mg PO BID #60 tablet 03/19/17 05/05/17 Unknown Rx Ipratropium/Albuterol Sulfate 1 ampul IH TIDRT #30 ampul.neb 03/19/17 05/05/17 Unknown Rx [DUONEB *Not for PRN Use*] guaiFENesin ER [Mucinex ER] 600 mg PO BID #10 tablet 03/19/17 05/05/17 Unknown Rx Famotidine [Pepcid] 10 mg PO BID tablet 06/02/17 Unknown Rx Active Meds: Active Medications Acetaminophen (Tylenol) 650 mg PO Q4H PRN PRN Reason: Pain MILD(1-3)/Fever >100.5/KHOURY Enoxaparin Sodium (Lovenox) 30 mg SUB-Q QDAY DUNG Sodium Bicarbonate 150 meq/ (Dextrose) 1,150 mls @ 100 mls/hr IV ONCE.ED ONE Stop: 06/13/17 07:29 Last Admin: 06/12/17 19:40 Dose: 100 mls/hr Norepinephrine (Levophed Drip 4 Mg/Ns 250 Ml) 4 mg in 250 mls @ 7.5 mls/hr IV TITR DUNG; 2 MCG/MIN PRN Reason: Protocol Last Admin: 06/13/17 04:28 Dose: 10 mcg/min, 37.5 mls/hr Sodium Chloride (Nacl 0.9% 1000 Ml) 1,000 mls @ 125 mls/hr IV DIRECT DUNG Last Admin: 06/13/17 05:47 Dose: 125 mls/hr Piperacillin Sod/Tazobactam Sod (Zosyn/Ns 2.25 Gm/50ml) 2.25 gm in 50 mls @ 100 mls/hr IV Q8HR DUNG PRN Reason: Protocol Last Admin: 06/13/17 05:48 Dose: 100 mls/hr Sodium Chloride (Nacl 0.9% 1000 Ml) 1,000 mls @ 999 mls/hr IV BOLUS ONE Stop: 06/13/17 07:06 Ondansetron HCl (Zofran) 4 mg IV Q8H PRN PRN Reason: N/V unrelieved by Pilar Vancomycin HCl (Vancomycin Pharmacy To Dose) 1 each IV PKCONSULT DUNG PRN Reason: Protocol Review of Systems ROS unobtainable: due to mental status Exam - Constitutional Vitals: Temp Pulse Resp BP Pulse Ox 98.0 F 79 17 108/46 99 06/13/17 04:00 06/13/17 03:46 06/13/17 04:09 06/12/17 23:10 06/13/17 03:46 General appearance: Present: no acute distress, cachectic - EENT Eyes: Present: PERRL ENT: hearing intact - Neck Neck: Present: supple - Respiratory Respiratory effort: normal Respiratory: bilateral: diminished (But clear) - Cardiovascular Rhythm: regular Heart Sounds: Present: S1 & S2 - Extremities Extremities: no ischemia - Abdominal General gastrointestinal: Present: other (post surgical changes) Female genitourinary: Present: deferred - Rectal Rectal Exam: deferred - Musculoskeletal Musculoskeletal: generalized weakness Results - Labs CBC & Chem 7: 06/12/17 18:00 06/12/17 22:38 Labs: Abnormal lab results 06/12/17 06/12/17 06/12/17 Range/Units 01:34 17:44 18:00 WBC 15.2 H (4.5-11.0) K/mm3 RDW 16.9 H (13.2-15.2) % Plt Count 1256 H* (140-440) K/mm3 Seg Neuts % (Manual) 85.0 H (40.0-70.0) % Lymphocytes % (Manual) 4.0 L (13.4-35.0) % Monocytes % (Manual) 8.0 H (0.0-7.3) % Basophils % (Manual) 2.0 H (0.0-1.8) % Seg Neutrophils # Man 12.9 H (1.8-7.7) K/mm3 Lymphocytes # (Manual) 0.6 L (1.2-5.4) K/mm3 Monocytes # (Manual) 1.2 H (0.0-0.8) K/mm3 Basophils # (Manual) 0.3 H (0.0-0.1) K/mm3 Sodium 126 L (137-145) mmol/L Potassium 6.6 H* (3.6-5.0) mmol/L Chloride 91.7 L (98-107) mmol/L Carbon Dioxide 11 L (22-30) mmol/L BUN 70 H (7-17) mg/dL Creatinine 3.9 H (0.7-1.2) mg/dL Glucose (65-100) mg/dL POC Glucose (70-105) Calcium 8.3 L (8.4-10.2) mg/dL Total Creatine Kinase (30-135) units/L CK-MB (CK-2) Rel Index (0-4) Troponin T 0.073 H (0.00-0.029) ng/mL LDL Cholesterol Direct 32 L (50-130) mg/dL Urine WBC (Auto) > 182.0 H (0.0-6.0) /HPF 06/12/17 06/12/17 06/12/17 Range/Units 18:56 22:03 22:38 WBC (4.5-11.0) K/mm3 RDW (13.2-15.2) % Plt Count (140-440) K/mm3 Seg Neuts % (Manual) (40.0-70.0) % Lymphocytes % (Manual) (13.4-35.0) % Monocytes % (Manual) (0.0-7.3) % Basophils % (Manual) (0.0-1.8) % Seg Neutrophils # Man (1.8-7.7) K/mm3 Lymphocytes # (Manual) (1.2-5.4) K/mm3 Monocytes # (Manual) (0.0-0.8) K/mm3 Basophils # (Manual) (0.0-0.1) K/mm3 Sodium 135 L D (137-145) mmol/L Potassium 5.1 H D (3.6-5.0) mmol/L Chloride 94.9 L (98-107) mmol/L Carbon Dioxide (22-30) mmol/L BUN 65 H (7-17) mg/dL Creatinine 3.3 H (0.7-1.2) mg/dL Glucose 178 H (65-100) mg/dL POC Glucose 108 H (70-105) Calcium 8.2 L (8.4-10.2) mg/dL Total Creatine Kinase 27 L (30-135) units/L CK-MB (CK-2) Rel Index 9.2 H (0-4) Troponin T 0.057 H D (0.00-0.029) ng/mL LDL Cholesterol Direct (50-130) mg/dL Urine WBC (Auto) (0.0-6.0) /HPF 06/13/17 Range/Units 01:08 WBC (4.5-11.0) K/mm3 RDW (13.2-15.2) % Plt Count (140-440) K/mm3 Seg Neuts % (Manual) (40.0-70.0) % Lymphocytes % (Manual) (13.4-35.0) % Monocytes % (Manual) (0.0-7.3) % Basophils % (Manual) (0.0-1.8) % Seg Neutrophils # Man (1.8-7.7) K/mm3 Lymphocytes # (Manual) (1.2-5.4) K/mm3 Monocytes # (Manual) (0.0-0.8) K/mm3 Basophils # (Manual) (0.0-0.1) K/mm3 Sodium (137-145) mmol/L Potassium (3.6-5.0) mmol/L Chloride (98-107) mmol/L Carbon Dioxide (22-30) mmol/L BUN (7-17) mg/dL Creatinine (0.7-1.2) mg/dL Glucose (65-100) mg/dL POC Glucose 203 H (70-105) Calcium (8.4-10.2) mg/dL Total Creatine Kinase (30-135) units/L CK-MB (CK-2) Rel Index (0-4) Troponin T (0.00-0.029) ng/mL LDL Cholesterol Direct (50-130) mg/dL Urine WBC (Auto) (0.0-6.0) /HPF - Imaging and Cardiology Chest x-ray: image reviewed (hyperinflation consistent with airtrapping but no evidence of acute lung disease) Assessment and Plan 62 y/o female with prior history of C.Diff status post colectomy, admitted now with Hyponatremia, now with changes in mental state, hypotension and UTI, septic likely from urinary source. 1. Will obtain stat blood gas now. Patient became this way (lethargic) on arrival to ICU during last admission and required intubation 2. Patient could be septic from a urinary source, agree with broad spectrum abx therapy and follow up urine culture. Per nursing, causey placed here and did not come from correction. 3. Septic-shock- as stated above, likely from urinary source with a combination of volume depletion. Will give an additional bolus of IVF's. Wean vasopressor therapy for MAPS >60 4. Renal consulted for hyponatremia, will defer to them but no work started initially for this. Would consider at least checking urine Na 5. Acute renal failure-Patient's last Cr was normal here at discharge, given current clinical presentation, most likely pre-renal physiology. Giving IVF's now. Follow up any renal recs 6. Thrombocytosis: Unsure of exact etiology of such large number of platelets. Question lab error. consider repeating and sending differential. If remains elevated, obtain Heme consult 7. Overall prognosis is guarded to poor, critically ill state CCT 31 minutes.
[2017-06-13] MEDS ORDERED: VERSED IV ONE ×3 (06:36→07:03)
[2017-06-13] MEDS ORDERED: SUBLIMAZE IV ONE ×2 (06:36→07:00)
[2017-06-13] MEDS ORDERED: AMIDATE IV ONE ×3 (06:37→07:10)
[2017-06-13 06:42] LABS: Hematocrit 32.4 % (30.3-42.9); Hemoglobin 10.3 gm/dl (10.1-14.3); Mean Corpuscular HGB Conc 32 % (30-34); Mean Corpuscular Hemoglobin 28 pg (28-32); Mean Corpuscular Volume 89 fl (79-97); Red Blood Count 3.64 M/mm3 (3.65-5.03); Red Cell Distribution Width 16.8 % (13.2-15.2)
[2017-06-13 06:56] LABS: Platelet Count 1178 K/mm3 (140-440)
[2017-06-13 07:56] LABS: Calcium 7.6 mg/dL (8.4-10.2)
[2017-06-13] MEDS ORDERED: VASELINE LIP THERAPY TP PRN (08:02)
[2017-06-13] MEDS ORDERED: ARTIFICIAL TEARS OPHTH OINT OU PRN (08:02)
--- NOTE | 2017-06-13 08:05 | Event Note ---
Date: 06/13/17 Difficult intubation. Vocal cords very anterior. attempted 3 passes with glide scope, unsuccessful. Used disposable bronchoscope to intubate patient. Stable awaiting CXR.
[2017-06-13 08:40] LABS: Creatine Kinase MB 3.2 ng/mL (0.0-4.0)
--- NOTE | 2017-06-13 08:45 | XRay Report ---
PORTABLE CHEST INDICATION: ET tube placement. COMPARISON: Yesterday. FINDINGS: Portable, frontal chest radiograph, 8:27 AM, 06/13/2017 demonstrates new endotracheal tube tip approximately 5.5 cm above the jena. Normal cardiomediastinal silhouette with improving left lower lung opacity. Small basal pleural effusion/consolidation may remain. Clear remainder lungs. Aortic knob calcifications. EKG leads. Intact bones. Few left upper quadrant surgical clips. CONCLUSION: Uncomplicated interval intubation and improving lower lung opacity/effusion, as described. Thank you for the opportunity to participate in this patient's care.
[2017-06-13 09:49] LABS: Band Neutrophils # (Manual) 1.1 K/mm3; Basophils % (Manual) 0 % (0.0-1.8); Eosinophils % (Manual) 0 % (0.0-4.3); Total Cells Counted 100
[2017-06-13 09:50] LABS: Anisocytosis 1+
[2017-06-13 09:51] LABS: Poikilocytosis 1+; Target Cells Few
[2017-06-13] MEDS: LOVENOX SUB-Q SCH (10:48)
--- NOTE | 2017-06-13 12:17 | Consultation ---
History of Present Illness - Reason for Consult Consult date: 06/13/17 acute renal failure, hyperkalemia Requesting physician: OUSMANE SIN - History of Present Illness 61-year-old female with a history of hypertension, COPD, hyperlipidemia was just discharged from the hospital on June 02 after complicated course of C. difficile colitis, status post colectomy . The patient was transferred from rehabilitation to the emergency room for evaluation of hypotension. Patient is very lethargic, unable to give a history, she was started on IV fluid, levophed. Review of system is unobtainable. She is currently in the ICU on the ventilator. She was also hyperkalemic in the emergency room. It has resolved with medical therapy. She is known to me from previous hospitalization. She also had acute kidney injury at that time, requiring temporary dialysis. Her renal function subsequently improved and she was taken off dialysis. Her serum creatinine was approximately 1.0 prior to her discharge. Past History Past Medical History: COPD, other (C. Diff, malnutrition) Past Surgical History: bowel surgery Social history: no significant social history Family history: no significant family history Medications and Allergies Allergies Allergy/AdvReac Type Severity Reaction Status Date / Time No Known Allergies Allergy Verified 05/23/15 12:02 Home Medications Medication Instructions Recorded Confirmed Last Taken Type Acetaminophen [Acetaminophen TAB] 650 mg PO Q4H PRN #30 tablet 12/24/1603/14/17 08:00 Rx Arformoterol Nebu [Brovana Nebu] 15 mcg IH Q12HRT #1 ml 03/19/17 05/05/17 Unknown Rx Aspirin [Aspirin BABY CHEW TAB] 81 mg PO QDAY #30 tab.chew 03/19/17 05/05/17 Unknown Rx Famotidine [Pepcid] 20 mg PO BID #60 tablet 03/19/17 05/05/17 Unknown Rx Ipratropium/Albuterol Sulfate 1 ampul IH TIDRT #30 ampul.neb 03/19/17 05/05/17 Unknown Rx [DUONEB *Not for PRN Use*] guaiFENesin ER [Mucinex ER] 600 mg PO BID #10 tablet 03/19/17 05/05/17 Unknown Rx Famotidine [Pepcid] 10 mg PO BID tablet 06/02/17 Unknown Rx Active Meds: Active Medications Acetaminophen (Tylenol) 650 mg PO Q4H PRN PRN Reason: Pain MILD(1-3)/Fever >100.5/KHOURY Enoxaparin Sodium (Lovenox) 30 mg SUB-Q QDAY [facility] Last Admin: 06/13/17 10:48 Dose: 30 mg Hydrophilic Ointment (Vaseline Lip Therapy) 1 applic TP Q2H PRN PRN Reason: Dry Lips Norepinephrine (Levophed Drip 4 Mg/Ns 250 Ml) 4 mg in 250 mls @ 7.5 mls/hr IV TITR DUNG; 2 MCG/MIN PRN Reason: Protocol Last Titration: 06/13/17 11:19 Dose: 8 mcg/min, 30 mls/hr Sodium Chloride (Nacl 0.9% 1000 Ml) 1,000 mls @ 125 mls/hr IV DIRECT DUNG Last Admin: 06/13/17 07:57 Dose: 125 mls/hr Piperacillin Sod/Tazobactam Sod (Zosyn/Ns 2.25 Gm/50ml) 2.25 gm in 50 mls @ 100 mls/hr IV Q8HR DUNG PRN Reason: Protocol Last Admin: 06/13/17 05:48 Dose: 100 mls/hr Multi-Ingred Cream/Lotion/Oil/Oint (Artificial Tears Ophth Oint) 1 applic OU Q4H PRN PRN Reason: Dry Eye(s) Ondansetron HCl (Zofran) 4 mg IV Q8H PRN PRN Reason: N/V unrelieved by Binulan Vancomycin HCl (Vancomycin Pharmacy To Dose) 1 each IV PKCONSULT DUNG PRN Reason: Protocol Review of Systems ROS unobtainable: due to endotracheal tube Exam - Vital Signs Vital signs: Vital Signs Temp Pulse Resp BP Pulse Ox 98.4 F 83 16 75/38 99 06/12/17 16:59 06/12/17 16:59 06/12/17 16:59 06/12/17 16:59 06/12/17 16:59 - General Appearance General appearance: chronically ill, intubated, frail EENT: PERRL, mucous membranes moist Neck: Present: neck supple, trachea midline. Absent: JVD/HJR, Masses Respiratory: Clear to Ascultation Heart: regular, normal heart rate Gastrointestinal: Present: normoactive bowel sounds, other (midline scar noted. She also has a colostomy bag in place.) Integumentary: other (no edema) Results - Lab Results 06/12/17 18:00 06/13/17 05:40 Most recent lab results Calcium 7.6 mg/dL (8.4-10.2) L 06/13/17 05:40 Assessment and Plan Impression * Acute renal failure. She most likely has a prerenal component. However do need to consider progression to ATN as well * Hyperkalemia secondary to acute kidney injury * Sepsis * Hypotension * Metabolic acidosis. Most likely secondary to lactic acidosis * Respiratory failure * Recent history of C. difficile colitis Recommendations * Patient's hyperkalemia has been corrected with medical therapy. * Her acidosis has also improved significantly * Serum creatinine seems to be trending down slowly and she is also putting out some urine. No urgent indication for renal replacement therapy at this time * Shall give her additional fluid boluses with isotonic saline * Continue pressors to maintain an map of greater than 65 * Shall check a UA as well as a fractional excretion of sodium * Continue vigorous IV hydration * Avoid nephrotoxins * Monitor fluid status and electrolytes closely * Thank you very much for the consultation. Shall follow along with you
[2017-06-13 14:28] LABS: Bacteria,Urine 1+ /HPF (Negative); Bilirubin,Urine NEG (Negative); Blood,Urine LG (Negative); Color,Urine Yellow (Yellow); Mucus,Urine FEW /HPF; Nitrite,Urine NEG (Negative); Urobilinogen,Urine < 2.0 mg/dL (<2.0)
[2017-06-13 14:30] LABS: WBC,Urine > 182.0 /HPF (0.0-6.0)
[2017-06-13 16:24] LABS: Creatinine,Urine 101.8 mg/dL (0.1-20.0); Fractional Sodium Excretion 0.6
--- NOTE | 2017-06-13 16:57 | Progress Note ---
Assessment and Plan Assesment and plan: 61-year-old female with a history of hypertension, COPD, hyperlipidemia was just discharged from the hospital on June 02 after complicated course of C. difficile colitis, status post colectomy . The patient was transferred from rehabilitation to the emergency room for evaluation of hypotension. Patient is very lethargic, unable to give a history, she was started on IV fluid, levophed. Review of system is unobtainable. She is currently in the ICU on the ventilator. She was also hyperkalemic in the emergency room. It has resolved with medical therapy. 1)Acute resp failure- Patient intubated.Cont vent support and Duonebs.Critical care following. 2)Septic shock-IV Levophed IV Vancomycin and IV Zosyn 3) Hyperkalemia -resolved.Was treated. 4)C diff colitis was treated.Will recheck 5) Elevated Troponin -chronic 6) LUIS improved.Cont IV fluids 7)COPD Neb treatments 8)Dvt /Gi prophylaxis initiated Subjective Date of service: 06/13/17 Principal diagnosis: Acute resp failure ,LUIS Interval history: Patient intubated, at bedside Objective - Constitutional Vitals: Vital Signs - 12hr 06/13/17 06/13/17 06/13/17 05:00 05:10 05:20 Temperature Pulse Rate 84 85 97 H Pulse Rate [ From Monitor] Respiratory 18 19 19 Rate Respiratory Rate [Bilateral Lower Leg] Blood Pressure 110/58 110/58 102/55 O2 Sat by Pulse 100 100 100 Oximetry 06/13/17 06/13/17 06/13/17 05:30 05:40 05:50 Temperature Pulse Rate 87 88 85 Pulse Rate [ From Monitor] Respiratory 14 19 17 Rate Respiratory Rate [Bilateral Lower Leg] Blood Pressure 99/57 99/57 108/55 O2 Sat by Pulse 100 100 100 Oximetry 06/13/17 06/13/17 06/13/17 06:00 06:10 06:20 Temperature Pulse Rate 108 H 93 H 82 Pulse Rate [ From Monitor] Respiratory 17 16 17 Rate Respiratory Rate [Bilateral Lower Leg] Blood Pressure 114/56 114/56 115/46 O2 Sat by Pulse 100 100 100 Oximetry 06/13/17 06/13/17 06/13/17 06:30 06:40 06:50 Temperature Pulse Rate 79 81 84 Pulse Rate [ From Monitor] Respiratory 17 18 18 Rate Respiratory Rate [Bilateral Lower Leg] Blood Pressure 94/49 94/49 91/54 O2 Sat by Pulse 100 100 100 Oximetry 06/13/17 06/13/17 06/13/17 06:53 07:00 07:10 Temperature Pulse Rate 110 H 101 H Pulse Rate [ From Monitor] Respiratory 26 H 12 14 Rate Respiratory Rate [Bilateral Lower Leg] Blood Pressure 87/48 112/62 O2 Sat by Pulse 100 96 Oximetry 06/13/17 06/13/17 06/13/17 07:20 07:30 07:40 Temperature Pulse Rate 100 H 93 H 100 H Pulse Rate [ From Monitor] Respiratory 12 13 14 Rate Respiratory Rate [Bilateral Lower Leg] Blood Pressure 116/57 119/50 126/59 O2 Sat by Pulse 96 100 100 Oximetry 06/13/17 06/13/17 06/13/17 07:50 08:01 08:10 Temperature Pulse Rate 87 108 H 95 H Pulse Rate [ From Monitor] Respiratory 17 10 L 22 Rate Respiratory Rate [Bilateral Lower Leg] Blood Pressure 138/62 115/69 75/48 O2 Sat by Pulse 100 100 100 Oximetry 06/13/17 06/13/17 06/13/17 08:15 08:20 08:30 Temperature Pulse Rate 95 H 91 H Pulse Rate [ 79 From Monitor] Respiratory 22 23 Rate Respiratory Rate [Bilateral Lower Leg] Blood Pressure 93/63 103/76 O2 Sat by Pulse 100 100 Oximetry 06/13/17 06/13/17 06/13/17 08:41 08:51 09:00 Temperature Pulse Rate 78 97 H 77 Pulse Rate [ From Monitor] Respiratory 22 23 22 Rate Respiratory Rate [Bilateral Lower Leg] Blood Pressure 103/76 101/74 101/70 O2 Sat by Pulse 96 69 L Oximetry 06/13/17 06/13/17 06/13/17 09:11 09:21 09:30 Temperature Pulse Rate 79 80 81 Pulse Rate [ From Monitor] Respiratory 22 21 18 Rate Respiratory Rate [Bilateral Lower Leg] Blood Pressure 101/70 97/67 95/63 O2 Sat by Pulse 99 100 Oximetry 06/13/17 06/13/17 06/13/17 09:37 09:40 09:51 Temperature Pulse Rate 81 76 90 Pulse Rate [ From Monitor] Respiratory 22 22 Rate Respiratory Rate [Bilateral Lower Leg] Blood Pressure 95/63 95/63 94/64 O2 Sat by Pulse 100 100 100 Oximetry 06/13/17 06/13/17 06/13/17 10:00 10:01 10:11 Temperature Pulse Rate 87 82 91 H Pulse Rate [ From Monitor] Respiratory 22 18 Rate Respiratory Rate [Bilateral Lower Leg] Blood Pressure 80/56 80/56 80/56 O2 Sat by Pulse 100 100 Oximetry 06/13/17 06/13/17 06/13/17 10:21 10:30 10:45 Temperature Pulse Rate 82 78 78 Pulse Rate [ From Monitor] Respiratory 19 19 18 Rate Respiratory Rate [Bilateral Lower Leg] Blood Pressure 94/64 91/67 98/68 O2 Sat by Pulse 100 Oximetry 06/13/17 06/13/17 06/13/17 11:00 11:12 11:15 Temperature Pulse Rate 78 77 76 Pulse Rate [ From Monitor] Respiratory 18 18 Rate Respiratory Rate [Bilateral Lower Leg] Blood Pressure 101/63 102/68 102/68 O2 Sat by Pulse 100 Oximetry 06/13/17 06/13/17 06/13/17 11:30 11:45 12:00 Temperature 96.8 F L Pulse Rate 76 74 75 Pulse Rate [ 76 From Monitor] Respiratory 14 19 18 Rate Respiratory 18 Rate [Bilateral Lower Leg] Blood Pressure 96/69 101/65 108/65 O2 Sat by Pulse 100 100 100 Oximetry 06/13/17 06/13/17 06/13/17 12:15 12:30 12:45 Temperature Pulse Rate 73 75 77 Pulse Rate [ From Monitor] Respiratory 18 18 18 Rate Respiratory Rate [Bilateral Lower Leg] Blood Pressure 117/71 98/63 98/64 O2 Sat by Pulse 100 Oximetry 06/13/17 06/13/17 06/13/17 13:00 13:15 13:30 Temperature Pulse Rate 77 79 79 Pulse Rate [ From Monitor] Respiratory 19 18 18 Rate Respiratory Rate [Bilateral Lower Leg] Blood Pressure 104/67 97/66 97/64 O2 Sat by Pulse Oximetry 06/13/17 06/13/17 06/13/17 13:45 14:00 14:15 Temperature Pulse Rate 79 79 80 Pulse Rate [ From Monitor] Respiratory 18 17 18 Rate Respiratory Rate [Bilateral Lower Leg] Blood Pressure 94/61 87/61 94/55 O2 Sat by Pulse Oximetry 06/13/17 06/13/17 06/13/17 14:30 14:45 15:00 Temperature Pulse Rate 100 H 85 78 Pulse Rate [ From Monitor] Respiratory 18 18 18 Rate Respiratory Rate [Bilateral Lower Leg] Blood Pressure 74/49 87/57 93/62 O2 Sat by Pulse 100 Oximetry 06/13/17 06/13/17 06/13/17 15:15 15:30 15:31 Temperature Pulse Rate 82 80 80 Pulse Rate [ From Monitor] Respiratory 18 18 Rate Respiratory Rate [Bilateral Lower Leg] Blood Pressure 99/69 99/64 99/64 O2 Sat by Pulse 100 100 Oximetry 06/13/17 06/13/17 06/13/17 15:45 16:00 16:15 Temperature Pulse Rate 81 87 85 Pulse Rate [ From Monitor] Respiratory 18 18 18 Rate Respiratory 18 Rate [Bilateral Lower Leg] Blood Pressure 98/62 106/70 104/64 O2 Sat by Pulse 94 100 100 Oximetry General appearance: Present: mild distress, well-nourished - EENT Eyes: PERRL, EOM intact ENT: hearing intact, clear oral mucosa Ears: bilateral: normal - Neck Neck: supple, normal ROM - Respiratory Respiratory effort: normal Respiratory: bilateral: CTA - Breasts Breasts: normal - Cardiovascular Rhythm: regular Heart Sounds: Present: S1 & S2. Absent: gallop, rub Extremities: pulses intact, No edema, normal color, Full ROM - Gastrointestinal General gastrointestinal: Present: soft, non-tender, non-distended, normal bowel sounds - Genitourinary Female genitourinary: normal - Integumentary Integumentary: clear, warm, dry - Musculoskeletal Musculoskeletal: 1, strength equal bilaterally - Neurologic Neurologic: moves all extremities - Psychiatric Psychiatric: memory intact, appropriate mood/affect, intact judgment & insight - Labs CBC & Chem 7: 06/12/17 18:00 06/14/17 04:08 Labs: Abnormal lab results 06/12/17 06/12/17 06/12/17 Range/Units 01:34 17:44 18:00 WBC 15.2 H (4.5-11.0) K/mm3 RBC (3.65-5.03) M/mm3 RDW 16.9 H (13.2-15.2) % Plt Count 1256 H* (140-440) K/mm3 Seg Neuts % (Manual) 85.0 H (40.0-70.0) % Lymphocytes % (Manual) 4.0 L (13.4-35.0) % Monocytes % (Manual) 8.0 H (0.0-7.3) % Basophils % (Manual) 2.0 H (0.0-1.8) % Seg Neutrophils # Man 12.9 H (1.8-7.7) K/mm3 Lymphocytes # (Manual) 0.6 L (1.2-5.4) K/mm3 Monocytes # (Manual) 1.2 H (0.0-0.8) K/mm3 Basophils # (Manual) 0.3 H (0.0-0.1) K/mm3 POC ABG pH (7.35-7.45) POC ABG pCO2 (35-45) POC ABG pO2 (80-105) Sodium 126 L (137-145) mmol/L Potassium 6.6 H* (3.6-5.0) mmol/L Chloride 91.7 L (98-107) mmol/L Carbon Dioxide 11 L (22-30) mmol/L BUN 70 H (7-17) mg/dL Creatinine 3.9 H (0.7-1.2) mg/dL Glucose (65-100) mg/dL POC Glucose (70-105) Calcium 8.3 L (8.4-10.2) mg/dL Total Creatine Kinase (30-135) units/L CK-MB (CK-2) Rel Index (0-4) Troponin T 0.073 H (0.00-0.029) ng/mL LDL Cholesterol Direct 32 L (50-130) mg/dL Urine WBC (Auto) > 182.0 H (0.0-6.0) /HPF Urine Creatinine (0.1-20.0) mg/dL 06/12/17 06/12/17 06/12/17 Range/Units 18:56 22:03 22:38 WBC (4.5-11.0) K/mm3 RBC (3.65-5.03) M/mm3 RDW (13.2-15.2) % Plt Count (140-440) K/mm3 Seg Neuts % (Manual) (40.0-70.0) % Lymphocytes % (Manual) (13.4-35.0) % Monocytes % (Manual) (0.0-7.3) % Basophils % (Manual) (0.0-1.8) % Seg Neutrophils # Man (1.8-7.7) K/mm3 Lymphocytes # (Manual) (1.2-5.4) K/mm3 Monocytes # (Manual) (0.0-0.8) K/mm3 Basophils # (Manual) (0.0-0.1) K/mm3 POC ABG pH (7.35-7.45) POC ABG pCO2 (35-45) POC ABG pO2 (80-105) Sodium 135 L D (137-145) mmol/L Potassium 5.1 H D (3.6-5.0) mmol/L Chloride 94.9 L (98-107) mmol/L Carbon Dioxide (22-30) mmol/L BUN 65 H (7-17) mg/dL Creatinine 3.3 H (0.7-1.2) mg/dL Glucose 178 H (65-100) mg/dL POC Glucose 108 H (70-105) Calcium 8.2 L (8.4-10.2) mg/dL Total Creatine Kinase 27 L (30-135) units/L CK-MB (CK-2) Rel Index 9.2 H (0-4) Troponin T 0.057 H D (0.00-0.029) ng/mL LDL Cholesterol Direct (50-130) mg/dL Urine WBC (Auto) (0.0-6.0) /HPF Urine Creatinine (0.1-20.0) mg/dL 06/13/17 06/13/17 06/13/17 Range/Units 01:08 05:40 05:40 WBC 15.7 H (4.5-11.0) K/mm3 RBC 3.64 L (3.65-5.03) M/mm3 RDW 16.8 H (13.2-15.2) % Plt Count 1178 H* (140-440) K/mm3 Seg Neuts % (Manual) 78.0 H (40.0-70.0) % Lymphocytes % (Manual) 4.0 L (13.4-35.0) % Monocytes % (Manual) 11.0 H (0.0-7.3) % Basophils % (Manual) (0.0-1.8) % Seg Neutrophils # Man 12.2 H (1.8-7.7) K/mm3 Lymphocytes # (Manual) 0.6 L (1.2-5.4) K/mm3 Monocytes # (Manual) 1.7 H (0.0-0.8) K/mm3 Basophils # (Manual) (0.0-0.1) K/mm3 POC ABG pH (7.35-7.45) POC ABG pCO2 (35-45) POC ABG pO2 (80-105) Sodium (137-145) mmol/L Potassium (3.6-5.0) mmol/L Chloride (98-107) mmol/L Carbon Dioxide (22-30) mmol/L BUN (7-17) mg/dL Creatinine (0.7-1.2) mg/dL Glucose (65-100) mg/dL POC Glucose 203 H (70-105) Calcium (8.4-10.2) mg/dL Total Creatine Kinase 26 L (30-135) units/L CK-MB (CK-2) Rel Index 12.3 H (0-4) Troponin T 0.047 H (0.00-0.029) ng/mL LDL Cholesterol Direct (50-130) mg/dL Urine WBC (Auto) (0.0-6.0) /HPF Urine Creatinine (0.1-20.0) mg/dL 06/13/17 06/13/17 06/13/17 Range/Units 05:40 06:34 10:00 WBC (4.5-11.0) K/mm3 RBC (3.65-5.03) M/mm3 RDW (13.2-15.2) % Plt Count (140-440) K/mm3 Seg Neuts % (Manual) (40.0-70.0) % Lymphocytes % (Manual) (13.4-35.0) % Monocytes % (Manual) (0.0-7.3) % Basophils % (Manual) (0.0-1.8) % Seg Neutrophils # Man (1.8-7.7) K/mm3 Lymphocytes # (Manual) (1.2-5.4) K/mm3 Monocytes # (Manual) (0.0-0.8) K/mm3 Basophils # (Manual) (0.0-0.1) K/mm3 POC ABG pH 7.171 L 7.244 L (7.35-7.45) POC ABG pCO2 75.4 H 49.5 H (35-45) POC ABG pO2 148 H 154 H (80-105) Sodium 134 L (137-145) mmol/L Potassium (3.6-5.0) mmol/L Chloride 92.9 L (98-107) mmol/L Carbon Dioxide (22-30) mmol/L BUN 59 H (7-17) mg/dL Creatinine 3.1 H (0.7-1.2) mg/dL Glucose 242 H (65-100) mg/dL POC Glucose (70-105) Calcium 7.6 L (8.4-10.2) mg/dL Total Creatine Kinase (30-135) units/L CK-MB (CK-2) Rel Index (0-4) Troponin T (0.00-0.029) ng/mL LDL Cholesterol Direct (50-130) mg/dL Urine WBC (Auto) (0.0-6.0) /HPF Urine Creatinine (0.1-20.0) mg/dL 06/13/17 06/13/17 Range/Units 14:00 14:00 WBC (4.5-11.0) K/mm3 RBC (3.65-5.03) M/mm3 RDW (13.2-15.2) % Plt Count (140-440) K/mm3 Seg Neuts % (Manual) (40.0-70.0) % Lymphocytes % (Manual) (13.4-35.0) % Monocytes % (Manual) (0.0-7.3) % Basophils % (Manual) (0.0-1.8) % Seg Neutrophils # Man (1.8-7.7) K/mm3 Lymphocytes # (Manual) (1.2-5.4) K/mm3 Monocytes # (Manual) (0.0-0.8) K/mm3 Basophils # (Manual) (0.0-0.1) K/mm3 POC ABG pH (7.35-7.45) POC ABG pCO2 (35-45) POC ABG pO2 (80-105) Sodium (137-145) mmol/L Potassium (3.6-5.0) mmol/L Chloride (98-107) mmol/L Carbon Dioxide (22-30) mmol/L BUN (7-17) mg/dL Creatinine (0.7-1.2) mg/dL Glucose (65-100) mg/dL POC Glucose (70-105) Calcium (8.4-10.2) mg/dL Total Creatine Kinase (30-135) units/L CK-MB (CK-2) Rel Index (0-4) Troponin T (0.00-0.029) ng/mL LDL Cholesterol Direct (50-130) mg/dL Urine WBC (Auto) > 182.0 H (0.0-6.0) /HPF Urine Creatinine 101.8 H (0.1-20.0) mg/dL
[2017-06-14] MEDS: MORPHINE IV PRN ×3 (00:42→21:00)
[2017-06-14] MEDS: NACL 0.9% 1000 ML 1,000 ML IV SCH (01:06)
[2017-06-14] MEDS: LEVOPHED DRIP 4 MG/NS 250 ML 4 MG/250 ML BAG IV SCH (01:07)
--- NOTE | 2017-06-14 03:36 | XRay Report ---
FINAL REPORT EXAM: XR CHEST 1V AP HISTORY: follow up respiratory failure TECHNIQUE: A portable view of the chest was obtained. Comparison is made to the study of 06/12/2017. FINDINGS: The lungs are hyperinflated. There are no localized infiltrates or effusions. The heart size is normal. The patient has been intubated. The tip of the ET tube is in good position above the jena. There EKG leads overlying the chest wall. The bones and soft tissues are unchanged. IMPRESSION: COPD. No localized infiltrates or congestion. Satisfactory intubation.
[2017-06-14] MEDS: ZOFRAN IV PRN (04:18)
[2017-06-14 05:42] LABS: Calcium 6.7 mg/dL (8.4-10.2)
[2017-06-14] MEDS: ZOSYN/NS 2.25 GM/50ML 2.25 GM/50 ML BAG IV SCH ×3 (05:43→21:30)
[2017-06-14] MEDS ORDERED: D50W (25GM) Syringe IV PRN ×2 (06:18→06:56)
[2017-06-14] MEDS: D5NS 1,000 ML IV SCH ×2 (06:55→15:00)
[2017-06-14] MEDS: LOVENOX SUB-Q SCH (10:18)
--- NOTE | 2017-06-14 11:20 | Progress Note ---
Assessment and Plan Impression * Acute renal failure. She most likely has a prerenal component. However do need to consider progression to ATN as well * Hyperkalemia secondary to acute kidney injury * Sepsis * Hypotension * Metabolic acidosis. Most likely secondary to lactic acidosis * Respiratory failure * Recent history of C. difficile colitis Recommendations * Patient's hyperkalemia has been corrected with medical therapy. * Renal function is improving. Fractional excretion of sodium is 0.6%. She most likely has a prerenal component. She is also currently nonoliguric . No indication for renal replacement therapy at this time * Patient seems to be getting acidotic again. Shall add bicarbonate to the IV fluid * Continue pressors to maintain an map of greater than 65 * She does have some pyuria as well as microhematuria. Check urine cultures. She is currently on broad-spectrum antibiotics * Avoid nephrotoxins * Monitor fluid status and electrolytes closely Subjective Date of service: 06/14/17 Interval history: Patient remains in the ICU. Currently on the ventilator. On 30% FiO2. She is awake. Objective - Vital Signs Vital signs: Vital Signs - 12hr 06/13/17 06/13/17 06/13/17 23:19 23:30 23:45 Temperature 98 F Pulse Rate 82 101 H Pulse Rate [ From Monitor] Respiratory 18 18 Rate Respiratory Rate [Bilateral Lower Leg] Blood Pressure 94/53 98/55 O2 Sat by Pulse 100 100 Oximetry 06/14/17 06/14/17 06/14/17 00:00 00:15 00:23 Temperature Pulse Rate 88 86 90 Pulse Rate [ 78 From Monitor] Respiratory 18 18 Rate Respiratory 17 Rate [Bilateral Lower Leg] Blood Pressure 94/53 106/62 94/53 O2 Sat by Pulse 100 100 100 Oximetry 06/14/17 06/14/17 06/14/17 00:30 00:42 00:45 Temperature Pulse Rate 80 86 Pulse Rate [ From Monitor] Respiratory 18 18 18 Rate Respiratory Rate [Bilateral Lower Leg] Blood Pressure 101/54 100/55 O2 Sat by Pulse Oximetry 06/14/17 06/14/17 06/14/17 01:00 01:12 01:15 Temperature Pulse Rate 81 77 Pulse Rate [ From Monitor] Respiratory 18 16 18 Rate Respiratory Rate [Bilateral Lower Leg] Blood Pressure 87/51 90/52 O2 Sat by Pulse 100 Oximetry 06/14/17 06/14/17 06/14/17 01:30 01:45 02:00 Temperature Pulse Rate 77 75 75 Pulse Rate [ From Monitor] Respiratory 18 18 18 Rate Respiratory Rate [Bilateral Lower Leg] Blood Pressure 95/57 106/58 115/60 O2 Sat by Pulse Oximetry 06/14/17 06/14/17 06/14/17 02:15 02:30 02:45 Temperature Pulse Rate 77 75 79 Pulse Rate [ From Monitor] Respiratory 18 18 18 Rate Respiratory Rate [Bilateral Lower Leg] Blood Pressure 108/56 111/63 116/61 O2 Sat by Pulse 100 100 100 Oximetry 06/14/17 06/14/17 06/14/17 03:00 03:15 03:30 Temperature Pulse Rate 89 83 87 Pulse Rate [ From Monitor] Respiratory 18 18 18 Rate Respiratory Rate [Bilateral Lower Leg] Blood Pressure 108/61 102/57 111/62 O2 Sat by Pulse 95 100 100 Oximetry 06/14/17 06/14/17 06/14/17 03:40 03:45 04:00 Temperature 99.8 F H Pulse Rate 90 93 H Pulse Rate [ 75 From Monitor] Respiratory 18 19 Rate Respiratory 17 Rate [Bilateral Lower Leg] Blood Pressure 119/69 94/59 O2 Sat by Pulse 100 99 Oximetry 06/14/17 06/14/17 06/14/17 04:15 04:17 04:30 Temperature Pulse Rate 93 H 93 H Pulse Rate [ From Monitor] Respiratory 19 19 18 Rate Respiratory Rate [Bilateral Lower Leg] Blood Pressure 88/52 99/51 O2 Sat by Pulse 100 96 Oximetry 06/14/17 06/14/17 06/14/17 04:45 04:47 05:00 Temperature Pulse Rate 86 84 Pulse Rate [ From Monitor] Respiratory 18 16 19 Rate Respiratory Rate [Bilateral Lower Leg] Blood Pressure 97/51 95/51 O2 Sat by Pulse 100 100 Oximetry 06/14/17 06/14/17 06/14/17 05:15 05:30 05:45 Temperature Pulse Rate 76 78 75 Pulse Rate [ From Monitor] Respiratory 18 17 19 Rate Respiratory Rate [Bilateral Lower Leg] Blood Pressure 94/49 96/51 103/54 O2 Sat by Pulse 100 100 100 Oximetry 06/14/17 06/14/17 06/14/17 06:00 06:15 06:30 Temperature Pulse Rate 74 83 72 Pulse Rate [ From Monitor] Respiratory 18 18 18 Rate Respiratory Rate [Bilateral Lower Leg] Blood Pressure 105/53 110/61 108/56 O2 Sat by Pulse 100 90 100 Oximetry 06/14/17 06/14/17 06/14/17 06:45 07:00 07:15 Temperature Pulse Rate 87 77 87 Pulse Rate [ From Monitor] Respiratory 21 18 18 Rate Respiratory Rate [Bilateral Lower Leg] Blood Pressure 122/53 105/50 113/58 O2 Sat by Pulse 99 100 100 Oximetry 06/14/17 06/14/17 06/14/17 07:30 07:45 08:00 Temperature Pulse Rate 75 87 74 Pulse Rate [ 73 From Monitor] Respiratory 18 18 18 Rate Respiratory 18 Rate [Bilateral Lower Leg] Blood Pressure 106/50 108/57 93/48 O2 Sat by Pulse 100 100 100 Oximetry 06/14/17 06/14/17 06/14/17 08:15 08:30 08:45 Temperature Pulse Rate 88 75 73 Pulse Rate [ From Monitor] Respiratory 20 18 18 Rate Respiratory Rate [Bilateral Lower Leg] Blood Pressure 102/52 100/49 91/47 O2 Sat by Pulse 99 Oximetry 06/14/17 09:00 Temperature Pulse Rate 86 Pulse Rate [ From Monitor] Respiratory Rate Respiratory Rate [Bilateral Lower Leg] Blood Pressure 110/58 O2 Sat by Pulse 100 Oximetry - General Appearance General appearance: chronically ill, intubated, frail EENT: PERRL, mucous membranes moist Neck: no JVD, no thyromegaly Respiratory: Present: Clear to Ascultation Cardiology: regular, normal heart rate Gastrointestinal: normoactive bowel sounds, other (midline scar noted. Colostomy bag in place.) Integumentary: other (no edema) - Lab 06/12/17 18:00 06/14/17 04:08 Most recent lab results Calcium 6.7 mg/dL (8.4-10.2) L 06/14/17 04:08 Urine Creatinine 101.8 mg/dL (0.1-20.0) H 06/13/17 14:00 Urine Sodium 26 mmol/L 06/13/17 14:00
--- NOTE | 2017-06-14 11:35 | Progress Note ---
Assessment and Plan Assesment and plan: 61-year-old female with a history of hypertension, COPD, hyperlipidemia was just discharged from the hospital on June 02 after complicated course of C. difficile colitis, status post colectomy . The patient was transferred from rehabilitation to the emergency room for evaluation of hypotension. Patient is very lethargic, unable to give a history, she was started on IV fluid, levophed. Review of system is unobtainable. She is currently in the ICU on the ventilator. She was also hyperkalemic in the emergency room. It has resolved with medical therapy. 1)Acute resp failure- Patient intubated.Cont vent support and Duonebs.Critical care following. 2)Septic shock-IV Levophed IV Vancomycin and IV Zosyn 3) Hyperkalemia -resolved.Was treated. 4)C diff colitis was treated.Will recheck 5) Elevated Troponin -chronic 6) LUIS improved.Cont IV fluids 7)COPD Neb treatments 8)Dvt /Gi prophylaxis initiated Subjective Date of service: 06/14/17 Principal diagnosis: Acute resp failure ,LUIS Interval history: Patient intubated, at bedside Objective - Constitutional Vitals: Vital Signs - 12hr 06/13/17 06/14/17 06/14/17 23:45 00:00 00:15 Temperature Pulse Rate 101 H 88 86 Pulse Rate [ 78 From Monitor] Respiratory 18 18 18 Rate Respiratory 17 Rate [Bilateral Lower Leg] Blood Pressure 98/55 94/53 106/62 O2 Sat by Pulse 100 100 100 Oximetry 06/14/17 06/14/17 06/14/17 00:23 00:30 00:42 Temperature Pulse Rate 90 80 Pulse Rate [ From Monitor] Respiratory 18 18 Rate Respiratory Rate [Bilateral Lower Leg] Blood Pressure 94/53 101/54 O2 Sat by Pulse 100 Oximetry 06/14/17 06/14/17 06/14/17 00:45 01:00 01:12 Temperature Pulse Rate 86 81 Pulse Rate [ From Monitor] Respiratory 18 18 16 Rate Respiratory Rate [Bilateral Lower Leg] Blood Pressure 100/55 87/51 O2 Sat by Pulse 100 Oximetry 06/14/17 06/14/17 06/14/17 01:15 01:30 01:45 Temperature Pulse Rate 77 77 75 Pulse Rate [ From Monitor] Respiratory 18 18 18 Rate Respiratory Rate [Bilateral Lower Leg] Blood Pressure 90/52 95/57 106/58 O2 Sat by Pulse Oximetry 06/14/17 06/14/17 06/14/17 02:00 02:15 02:30 Temperature Pulse Rate 75 77 75 Pulse Rate [ From Monitor] Respiratory 18 18 18 Rate Respiratory Rate [Bilateral Lower Leg] Blood Pressure 115/60 108/56 111/63 O2 Sat by Pulse 100 100 Oximetry 06/14/17 06/14/17 06/14/17 02:45 03:00 03:15 Temperature Pulse Rate 79 89 83 Pulse Rate [ From Monitor] Respiratory 18 18 18 Rate Respiratory Rate [Bilateral Lower Leg] Blood Pressure 116/61 108/61 102/57 O2 Sat by Pulse 100 95 100 Oximetry 06/14/17 06/14/17 06/14/17 03:30 03:40 03:45 Temperature 99.8 F H Pulse Rate 87 90 Pulse Rate [ From Monitor] Respiratory 18 18 Rate Respiratory Rate [Bilateral Lower Leg] Blood Pressure 111/62 119/69 O2 Sat by Pulse 100 100 Oximetry 06/14/17 06/14/17 06/14/17 04:00 04:15 04:17 Temperature Pulse Rate 93 H 93 H Pulse Rate [ 75 From Monitor] Respiratory 19 19 19 Rate Respiratory 17 Rate [Bilateral Lower Leg] Blood Pressure 94/59 88/52 O2 Sat by Pulse 99 100 Oximetry 06/14/17 06/14/17 06/14/17 04:30 04:45 04:47 Temperature Pulse Rate 93 H 86 Pulse Rate [ From Monitor] Respiratory 18 18 16 Rate Respiratory Rate [Bilateral Lower Leg] Blood Pressure 99/51 97/51 O2 Sat by Pulse 96 100 Oximetry 06/14/17 06/14/17 06/14/17 05:00 05:15 05:30 Temperature Pulse Rate 84 76 78 Pulse Rate [ From Monitor] Respiratory 19 18 17 Rate Respiratory Rate [Bilateral Lower Leg] Blood Pressure 95/51 94/49 96/51 O2 Sat by Pulse 100 100 100 Oximetry 06/14/17 06/14/17 06/14/17 05:45 06:00 06:15 Temperature Pulse Rate 75 74 83 Pulse Rate [ From Monitor] Respiratory 19 18 18 Rate Respiratory Rate [Bilateral Lower Leg] Blood Pressure 103/54 105/53 110/61 O2 Sat by Pulse 100 100 90 Oximetry 06/14/17 06/14/17 06/14/17 06:30 06:45 07:00 Temperature Pulse Rate 72 87 77 Pulse Rate [ From Monitor] Respiratory 18 21 18 Rate Respiratory Rate [Bilateral Lower Leg] Blood Pressure 108/56 122/53 105/50 O2 Sat by Pulse 100 99 100 Oximetry 06/14/17 06/14/17 06/14/17 07:15 07:30 07:45 Temperature Pulse Rate 87 75 87 Pulse Rate [ From Monitor] Respiratory 18 18 18 Rate Respiratory Rate [Bilateral Lower Leg] Blood Pressure 113/58 106/50 108/57 O2 Sat by Pulse 100 100 100 Oximetry 06/14/17 06/14/17 06/14/17 08:00 08:15 08:30 Temperature 100 F H Pulse Rate 74 88 75 Pulse Rate [ 73 From Monitor] Respiratory 18 20 18 Rate Respiratory 18 Rate [Bilateral Lower Leg] Blood Pressure 93/48 102/52 100/49 O2 Sat by Pulse 100 99 Oximetry 06/14/17 06/14/17 08:45 09:00 Temperature Pulse Rate 73 86 Pulse Rate [ From Monitor] Respiratory 18 Rate Respiratory Rate [Bilateral Lower Leg] Blood Pressure 91/47 110/58 O2 Sat by Pulse 100 Oximetry General appearance: Present: mild distress, well-nourished - EENT Eyes: PERRL, EOM intact ENT: hearing intact, clear oral mucosa Ears: bilateral: normal - Neck Neck: supple, normal ROM - Respiratory Respiratory effort: normal Respiratory: bilateral: CTA - Breasts Breasts: normal - Cardiovascular Rhythm: regular Heart Sounds: Present: S1 & S2. Absent: gallop, rub Extremities: pulses intact, No edema, normal color, Full ROM - Gastrointestinal General gastrointestinal: Present: soft, non-tender, non-distended, normal bowel sounds - Genitourinary Female genitourinary: normal - Integumentary Integumentary: clear, warm, dry - Musculoskeletal Musculoskeletal: 1, strength equal bilaterally - Neurologic Neurologic: moves all extremities - Psychiatric Psychiatric: memory intact, appropriate mood/affect, intact judgment & insight - Labs CBC & Chem 7: 06/12/17 18:00 06/14/17 04:08 Labs: Abnormal lab results 06/13/17 06/13/17 06/13/17 Range/Units 14:00 14:00 18:30 POC ABG pH (7.35-7.45) POC ABG pCO2 (35-45) POC ABG pO2 (80-105) Carbon Dioxide (22-30) mmol/L BUN (7-17) mg/dL Creatinine 2.4 H (0.7-1.2) mg/dL Glucose (65-100) mg/dL POC Glucose (70-105) Calcium (8.4-10.2) mg/dL Urine WBC (Auto) > 182.0 H (0.0-6.0) /HPF Urine Creatinine 101.8 H (0.1-20.0) mg/dL 06/14/17 06/14/17 06/14/17 Range/Units 04:08 04:48 05:22 POC ABG pH 7.247 L 7.310 L (7.35-7.45) POC ABG pCO2 31.1 L (35-45) POC ABG pO2 39 L (80-105) Carbon Dioxide 16 L D (22-30) mmol/L BUN 46 H (7-17) mg/dL Creatinine 2.1 H (0.7-1.2) mg/dL Glucose 64 L (65-100) mg/dL POC Glucose (70-105) Calcium 6.7 L (8.4-10.2) mg/dL Urine WBC (Auto) (0.0-6.0) /HPF Urine Creatinine (0.1-20.0) mg/dL 06/14/17 Range/Units 06:53 POC ABG pH (7.35-7.45) POC ABG pCO2 (35-45) POC ABG pO2 (80-105) Carbon Dioxide (22-30) mmol/L BUN (7-17) mg/dL Creatinine (0.7-1.2) mg/dL Glucose (65-100) mg/dL POC Glucose 226 H (70-105) Calcium (8.4-10.2) mg/dL Urine WBC (Auto) (0.0-6.0) /HPF Urine Creatinine (0.1-20.0) mg/dL
[2017-06-14] MEDS ORDERED: ZOSYN/NS 2.25 GM/50ML 2.25 GM/50 ML BAG IV SCH (12:00)
[2017-06-14] MEDS ORDERED: VANCOMYCIN/NS 1 GM/250 ML 1 GM/250 ML BAG IV ONE (12:00)
[2017-06-14] MEDS ORDERED: SIMPLE SYRUP FEEDTUBE PRN ×2 (13:43)
[2017-06-14] MEDS ORDERED: SODIUM BICARBONATE FEEDTUBE PRN (13:43)
[2017-06-14] MEDS ORDERED: PANCREAZE DR 10,500 UNIT FEEDTUBE PRN (13:43)
--- NOTE | 2017-06-14 14:59 | Progress Note ---
Assessment and Plan Impression Acute hypercapnic respiratory failure requiring intubation and mechanical ventilation COPD Sepsis and urinary tract infection Status post C. difficile colitis requiring partial colectomy Chronic renal failure/LUIS Metabolic acidosis Recommendations: Will add nebulizer treatments and short course of IV steroids CPAP trial Total critical care time 31 minute Subjective Date of service: 06/14/17 Principal diagnosis: Acute resp failure ,LUIS Interval history: Patient has remained intubated, awake responsive wants to have her tube removed. Objective Vital Signs - 12hr 06/14/17 06/14/17 06/14/17 03:00 03:15 03:30 Temperature Pulse Rate 89 83 87 Pulse Rate [ From Monitor] Respiratory 18 18 18 Rate Respiratory Rate [Bilateral Lower Leg] Blood Pressure 108/61 102/57 111/62 O2 Sat by Pulse 95 100 100 Oximetry 06/14/17 06/14/17 06/14/17 03:40 03:45 04:00 Temperature 99.8 F H Pulse Rate 90 93 H Pulse Rate [ 75 From Monitor] Respiratory 18 19 Rate Respiratory 17 Rate [Bilateral Lower Leg] Blood Pressure 119/69 94/59 O2 Sat by Pulse 100 99 Oximetry 06/14/17 06/14/17 06/14/17 04:15 04:17 04:30 Temperature Pulse Rate 93 H 93 H Pulse Rate [ From Monitor] Respiratory 19 19 18 Rate Respiratory Rate [Bilateral Lower Leg] Blood Pressure 88/52 99/51 O2 Sat by Pulse 100 96 Oximetry 06/14/17 06/14/17 06/14/17 04:45 04:47 05:00 Temperature Pulse Rate 86 84 Pulse Rate [ From Monitor] Respiratory 18 16 19 Rate Respiratory Rate [Bilateral Lower Leg] Blood Pressure 97/51 95/51 O2 Sat by Pulse 100 100 Oximetry 06/14/17 06/14/17 06/14/17 05:15 05:30 05:45 Temperature Pulse Rate 76 78 75 Pulse Rate [ From Monitor] Respiratory 18 17 19 Rate Respiratory Rate [Bilateral Lower Leg] Blood Pressure 94/49 96/51 103/54 O2 Sat by Pulse 100 100 100 Oximetry 06/14/17 06/14/17 06/14/17 06:00 06:15 06:30 Temperature Pulse Rate 74 83 72 Pulse Rate [ From Monitor] Respiratory 18 18 18 Rate Respiratory Rate [Bilateral Lower Leg] Blood Pressure 105/53 110/61 108/56 O2 Sat by Pulse 100 90 100 Oximetry 06/14/17 06/14/17 06/14/17 06:45 07:00 07:15 Temperature Pulse Rate 87 77 87 Pulse Rate [ From Monitor] Respiratory 21 18 18 Rate Respiratory Rate [Bilateral Lower Leg] Blood Pressure 122/53 105/50 113/58 O2 Sat by Pulse 99 100 100 Oximetry 06/14/17 06/14/17 06/14/17 07:30 07:45 08:00 Temperature 100 F H Pulse Rate 75 87 74 Pulse Rate [ 73 From Monitor] Respiratory 18 18 18 Rate Respiratory 18 Rate [Bilateral Lower Leg] Blood Pressure 106/50 108/57 93/48 O2 Sat by Pulse 100 100 100 Oximetry 06/14/17 06/14/17 06/14/17 08:15 08:30 08:45 Temperature Pulse Rate 88 75 73 Pulse Rate [ From Monitor] Respiratory 20 18 18 Rate Respiratory Rate [Bilateral Lower Leg] Blood Pressure 102/52 100/49 91/47 O2 Sat by Pulse 99 Oximetry 06/14/17 06/14/17 06/14/17 09:00 09:15 09:30 Temperature Pulse Rate 75 91 H 82 Pulse Rate [ From Monitor] Respiratory 18 18 18 Rate Respiratory Rate [Bilateral Lower Leg] Blood Pressure 99/49 110/58 99/51 O2 Sat by Pulse 100 99 99 Oximetry 06/14/17 06/14/17 06/14/17 09:45 10:00 10:15 Temperature Pulse Rate 75 75 84 Pulse Rate [ From Monitor] Respiratory 18 18 18 Rate Respiratory Rate [Bilateral Lower Leg] Blood Pressure 94/47 97/49 102/48 O2 Sat by Pulse 99 99 100 Oximetry 06/14/17 06/14/17 06/14/17 10:30 10:45 11:00 Temperature Pulse Rate 83 76 77 Pulse Rate [ From Monitor] Respiratory 18 18 17 Rate Respiratory Rate [Bilateral Lower Leg] Blood Pressure 97/57 93/52 96/55 O2 Sat by Pulse 100 100 Oximetry 06/14/17 06/14/17 06/14/17 11:15 11:30 11:45 Temperature Pulse Rate 75 77 78 Pulse Rate [ From Monitor] Respiratory 15 19 19 Rate Respiratory Rate [Bilateral Lower Leg] Blood Pressure 97/55 96/56 105/64 O2 Sat by Pulse 100 100 Oximetry 06/14/17 06/14/17 06/14/17 12:00 12:15 12:30 Temperature 99.0 F Pulse Rate 75 75 76 Pulse Rate [ 77 From Monitor] Respiratory 18 18 18 Rate Respiratory 18 Rate [Bilateral Lower Leg] Blood Pressure 106/62 105/62 110/65 O2 Sat by Pulse Oximetry 06/14/17 06/14/17 06/14/17 12:45 13:00 13:15 Temperature Pulse Rate 75 83 75 Pulse Rate [ From Monitor] Respiratory 18 18 18 Rate Respiratory Rate [Bilateral Lower Leg] Blood Pressure 100/63 110/61 109/62 O2 Sat by Pulse 100 100 Oximetry Constitutional: no acute distress, other ENT: other (orally intubated) Neck: supple, no lymphadenopathy Effort: normal Ascultation: Bilateral: diminished breath sounds Cardiovascular: regular rate and rhythm Gastrointestinal: normoactive bowel sounds, soft, non-tender Integumentary: normal Extremities: no cyanosis Neurologic: normal mental status CBC and BMP: 06/12/17 18:00 06/14/17 04:08 ABG, PT/INR, D-dimer: ABG POC ABG pH 7.310 (7.35-7.45) L 06/14/17 05:22 POC ABG pCO2 31.1 (35-45) L 06/14/17 05:22 POC ABG pO2 86 (80-105) 06/14/17 05:22 POC ABG HCO3 15.6 06/14/17 05:22 POC ABG Total CO2 17 06/14/17 05:22 POC ABG O2 Sat 96 06/14/17 05:22 Abnormal lab findings: Abnormal Labs 06/12/17 06/12/17 06/12/17 01:34 17:44 18:00 WBC 15.2 H RBC RDW 16.9 H Plt Count 1256 H* Seg Neuts % (Manual) 85.0 H Lymphocytes % (Manual) 4.0 L Monocytes % (Manual) 8.0 H Basophils % (Manual) 2.0 H Seg Neutrophils # Man 12.9 H Lymphocytes # (Manual) 0.6 L Monocytes # (Manual) 1.2 H Basophils # (Manual) 0.3 H POC ABG pH POC ABG pCO2 POC ABG pO2 Sodium 126 L Potassium 6.6 H* Chloride 91.7 L Carbon Dioxide 11 L BUN 70 H Creatinine 3.9 H Glucose POC Glucose Calcium 8.3 L Total Creatine Kinase CK-MB (CK-2) Rel Index Troponin T 0.073 H LDL Cholesterol Direct 32 L Urine WBC (Auto) > 182.0 H Urine Creatinine 06/12/17 06/12/17 06/12/17 18:56 22:03 22:38 WBC RBC RDW Plt Count Seg Neuts % (Manual) Lymphocytes % (Manual) Monocytes % (Manual) Basophils % (Manual) Seg Neutrophils # Man Lymphocytes # (Manual) Monocytes # (Manual) Basophils # (Manual) POC ABG pH POC ABG pCO2 POC ABG pO2 Sodium 135 L D Potassium 5.1 H D Chloride 94.9 L Carbon Dioxide BUN 65 H Creatinine 3.3 H Glucose 178 H POC Glucose 108 H Calcium 8.2 L Total Creatine Kinase 27 L CK-MB (CK-2) Rel Index 9.2 H Troponin T 0.057 H D LDL Cholesterol Direct Urine WBC (Auto) Urine Creatinine 06/13/17 06/13/17 06/13/17 01:08 05:40 05:40 WBC 15.7 H RBC 3.64 L RDW 16.8 H Plt Count 1178 H* Seg Neuts % (Manual) 78.0 H Lymphocytes % (Manual) 4.0 L Monocytes % (Manual) 11.0 H Basophils % (Manual) Seg Neutrophils # Man 12.2 H Lymphocytes # (Manual) 0.6 L Monocytes # (Manual) 1.7 H Basophils # (Manual) POC ABG pH POC ABG pCO2 POC ABG pO2 Sodium Potassium Chloride Carbon Dioxide BUN Creatinine Glucose POC Glucose 203 H Calcium Total Creatine Kinase 26 L CK-MB (CK-2) Rel Index 12.3 H Troponin T 0.047 H LDL Cholesterol Direct Urine WBC (Auto) Urine Creatinine 06/13/17 06/13/17 06/13/17 05:40 06:34 10:00 WBC RBC RDW Plt Count Seg Neuts % (Manual) Lymphocytes % (Manual) Monocytes % (Manual) Basophils % (Manual) Seg Neutrophils # Man Lymphocytes # (Manual) Monocytes # (Manual) Basophils # (Manual) POC ABG pH 7.171 L 7.244 L POC ABG pCO2 75.4 H 49.5 H POC ABG pO2 148 H 154 H Sodium 134 L Potassium Chloride 92.9 L Carbon Dioxide BUN 59 H Creatinine 3.1 H Glucose 242 H POC Glucose Calcium 7.6 L Total Creatine Kinase CK-MB (CK-2) Rel Index Troponin T LDL Cholesterol Direct Urine WBC (Auto) Urine Creatinine 06/13/17 06/13/17 06/13/17 14:00 14:00 18:30 WBC RBC RDW Plt Count Seg Neuts % (Manual) Lymphocytes % (Manual) Monocytes % (Manual) Basophils % (Manual) Seg Neutrophils # Man Lymphocytes # (Manual) Monocytes # (Manual) Basophils # (Manual) POC ABG pH POC ABG pCO2 POC ABG pO2 Sodium Potassium Chloride Carbon Dioxide BUN Creatinine 2.4 H Glucose POC Glucose Calcium Total Creatine Kinase CK-MB (CK-2) Rel Index Troponin T LDL Cholesterol Direct Urine WBC (Auto) > 182.0 H Urine Creatinine 101.8 H 06/14/17 06/14/17 06/14/17 04:08 04:48 05:22 WBC RBC RDW Plt Count Seg Neuts % (Manual) Lymphocytes % (Manual) Monocytes % (Manual) Basophils % (Manual) Seg Neutrophils # Man Lymphocytes # (Manual) Monocytes # (Manual) Basophils # (Manual) POC ABG pH 7.247 L 7.310 L POC ABG pCO2 31.1 L POC ABG pO2 39 L Sodium Potassium Chloride Carbon Dioxide 16 L D BUN 46 H Creatinine 2.1 H Glucose 64 L POC Glucose Calcium 6.7 L Total Creatine Kinase CK-MB (CK-2) Rel Index Troponin T LDL Cholesterol Direct Urine WBC (Auto) Urine Creatinine 06/14/17 06:53 WBC RBC RDW Plt Count Seg Neuts % (Manual) Lymphocytes % (Manual) Monocytes % (Manual) Basophils % (Manual) Seg Neutrophils # Man Lymphocytes # (Manual) Monocytes # (Manual) Basophils # (Manual) POC ABG pH POC ABG pCO2 POC ABG pO2 Sodium Potassium Chloride Carbon Dioxide BUN Creatinine Glucose POC Glucose 226 H Calcium Total Creatine Kinase CK-MB (CK-2) Rel Index Troponin T LDL Cholesterol Direct Urine WBC (Auto) Urine Creatinine Chest x-ray: report reviewed (no acute finding ET tube in good position)
[2017-06-14] MEDS ORDERED: PROVENTIL IH SCH (16:00)
[2017-06-14] MEDS: DUONEB *Not for PRN Use IH SCH ×3 (16:35→23:50)
[2017-06-14] MEDS: [UNRECOGNIZED DRUG - OTHER] IV SCH (18:18)
[2017-06-14] MEDS: SODIUM BICARBONATE IV SCH (18:18)
[2017-06-14] MEDS: D5 IV SCH (18:18)
[2017-06-15] MEDS: [UNRECOGNIZED DRUG - OTHER] IV SCH ×2 (03:00→13:04)
[2017-06-15] MEDS: D5 IV SCH ×2 (03:00→13:04)
[2017-06-15] MEDS: SODIUM BICARBONATE IV SCH ×2 (03:00→13:04)
[2017-06-15] MEDS: DUONEB *Not for PRN Use IH SCH ×6 (03:51→23:37)
[2017-06-15] MEDS: MORPHINE IV PRN ×2 (04:00→20:18)
--- NOTE | 2017-06-15 04:09 | XRay Report ---
FINAL REPORT EXAM: XR CHEST 1V AP HISTORY: follow up respiratory failure TECHNIQUE: AP portable view(s) of the chest obtained. PRIORS: 06/14/2017, 06/12/2017 FINDINGS: Mild patient rotation. No mediastinal shift. Cardiac silhouette is not enlarged. Endotracheal tube terminates approximately 7 cm above the jena. No pneumothorax, effusion, or focal pulmonary opacity identified. Hyperaeration of the lungs. Bibasilar atelectasis. No acute skeletal findings. IMPRESSION: Satisfactory appearance of endotracheal tube. No pneumothorax or other acute finding compared to 06/14/2017.
[2017-06-15] MEDS: ZOSYN/NS 2.25 GM/50ML 2.25 GM/50 ML BAG IV SCH ×3 (05:24→17:58)
[2017-06-15 06:35] LABS: Calcium 7.1 mg/dL (8.4-10.2)
[2017-06-15] MEDS: LOVENOX SUB-Q SCH (10:26)
--- NOTE | 2017-06-15 10:28 | Progress Note ---
Assessment and Plan Assessment and plan: Acute resp failure- Patient intubated. Cont vent support and Duonebs. Pulm following. Septic shock-IV Levophed IV Vancomycin and IV Zosyn. Continue pressors to maintain an map of greater than 65 Hyperkalemia -resolved. Metabolic acidosis. Most likely secondary to lactic acidosis C diff colitis was treated. Elevated Troponin -chronic ARF. Etiology likely secondary to LUIS vs. vasomotor nephropathy. Creatinine improved. Cont IV fluids. Avoid nephrotoxins COPD. Cont Neb treatments Dvt /Gi prophylaxis initiated History Interval history: pt intubated and on pressors of levoed Hospitalist Physical - Constitutional Vitals: Temp Pulse Resp BP Pulse Ox 97.5 F L 92 H 19 139/80 99 06/15/17 08:00 06/15/17 09:00 06/15/17 09:00 06/15/17 09:00 06/15/17 09:00 General appearance: Present: mild distress, well-nourished - EENT Eyes: Present: PERRL, EOM intact ENT: hearing intact, clear oral mucosa, dentition normal - Neck Neck: Present: supple, normal ROM - Respiratory Respiratory effort: normal Respiratory: bilateral: diminished, rhonchi - Cardiovascular Rhythm: regular Heart Sounds: Present: S1 & S2. Absent: gallop, rub - Extremities Extremities: no ischemia, No edema, Full ROM - Abdominal General gastrointestinal: soft, non-tender, non-distended, normal bowel sounds - Integumentary Integumentary: Present: clear, warm, dry - Neurologic Neurologic: CNII-XII intact, moves all extremities Results - Labs CBC & Chem 7: 06/12/17 18:00 06/15/17 05:00 Labs: Laboratory Last Values WBC 15.2 K/mm3 (4.5-11.0) H 06/12/17 18:00 RBC 3.87 M/mm3 (3.65-5.03) 06/12/17 18:00 Hgb 11.0 gm/dl (10.1-14.3) 06/12/17 18:00 Hct 35.6 % (30.3-42.9) 06/12/17 18:00 MCV 92 fl (79-97) 06/12/17 18:00 MCH 28 pg (28-32) 06/12/17 18:00 MCHC 31 % (30-34) 06/12/17 18:00 RDW 16.9 % (13.2-15.2) H 06/12/17 18:00 Plt Count 1256 K/mm3 (140-440) H* 06/12/17 18:00 Add Manual Diff Complete 06/13/17 05:40 Total Counted 100 06/13/17 05:40 Seg Neuts % (Manual) 78.0 % (40.0-70.0) H 06/13/17 05:40 Band Neutrophils % 7.0 % 06/13/17 05:40 Lymphocytes % (Manual) 4.0 % (13.4-35.0) L 06/13/17 05:40 Reactive Lymphs % (Man) 0 % 06/13/17 05:40 Monocytes % (Manual) 11.0 % (0.0-7.3) H 06/13/17 05:40 Eosinophils % (Manual) 0 % (0.0-4.3) 06/13/17 05:40 Basophils % (Manual) 0 % (0.0-1.8) 06/13/17 05:40 Metamyelocytes % 0 % 06/13/17 05:40 Myelocytes % 0 % 06/13/17 05:40 Promyelocytes % 0 % 06/13/17 05:40 Blast Cells % 0 % 06/13/17 05:40 Nucleated RBC % Not Reportable 06/13/17 05:40 Seg Neutrophils # Man 12.2 K/mm3 (1.8-7.7) H 06/13/17 05:40 Band Neutrophils # 1.1 K/mm3 06/13/17 05:40 Lymphocytes # (Manual) 0.6 K/mm3 (1.2-5.4) L 06/13/17 05:40 Abs React Lymphs (Man) 0.0 K/mm3 06/13/17 05:40 Monocytes # (Manual) 1.7 K/mm3 (0.0-0.8) H 06/13/17 05:40 Eosinophils # (Manual) 0.0 K/mm3 (0.0-0.4) 06/13/17 05:40 Basophils # (Manual) 0.0 K/mm3 (0.0-0.1) 06/13/17 05:40 Metamyelocytes # 0.0 K/mm3 06/13/17 05:40 Myelocytes # 0.0 K/mm3 06/13/17 05:40 Promyelocytes # 0.0 K/mm3 06/13/17 05:40 Blast Cells # 0.0 K/mm3 06/13/17 05:40 Pathologist Review 06/12/17 18:00 WBC Morphology Not Reportable 06/13/17 05:40 Hypersegmented Neuts Not Reportable 06/13/17 05:40 Hyposegmented Neuts Not Reportable 06/13/17 05:40 Hypogranular Neuts Not Reportable 06/13/17 05:40 Smudge Cells Not Reportable 06/13/17 05:40 Toxic Granulation Not Reportable 06/13/17 05:40 Toxic Vacuolation Not Reportable 06/13/17 05:40 Dohle Bodies Not Reportable 06/13/17 05:40 Pelger-Huet Anomaly Not Reportable 06/13/17 05:40 Neisha Rods Not Reportable 06/13/17 05:40 Platelet Estimate Not Reportable 06/13/17 05:40 Clumped Platelets Not Reportable 06/13/17 05:40 Plt Clumps, EDTA Not Reportable 06/13/17 05:40 Large Platelets Not Reportable 06/13/17 05:40 Giant Platelets Not Reportable 06/13/17 05:40 Platelet Satelliting Not Reportable 06/13/17 05:40 Plt Morphology Comment Not Reportable 06/13/17 05:40 RBC Morphology Not Reportable 06/13/17 05:40 Dimorphic RBCs Not Reportable 06/13/17 05:40 Polychromasia Not Reportable 06/13/17 05:40 Hypochromasia Not Reportable 06/13/17 05:40 Poikilocytosis 1+ 06/13/17 05:40 Anisocytosis 1+ 06/13/17 05:40 Microcytosis Not Reportable 06/13/17 05:40 Macrocytosis Not Reportable 06/13/17 05:40 Spherocytes Not Reportable 06/13/17 05:40 Pappenheimer Bodies Not Reportable 06/13/17 05:40 Sickle Cells Not Reportable 06/13/17 05:40 Target Cells Few 06/13/17 05:40 Tear Drop Cells Not Reportable 06/13/17 05:40 Ovalocytes Not Reportable 06/13/17 05:40 Helmet Cells Not Reportable 06/13/17 05:40 [place] Bodies Not Reportable 06/13/17 05:40 [place] Rings Not Reportable 06/13/17 05:40 Stirum Cells Not Reportable 06/13/17 05:40 Bite Cells Not Reportable 06/13/17 05:40 Crenated Cell Not Reportable 06/13/17 05:40 Elliptocytes Not Reportable 06/13/17 05:40 Acanthocytes (Spur) Not Reportable 06/13/17 05:40 Rouleaux Not Reportable 06/13/17 05:40 Hemoglobin C Crystals Not Reportable 06/13/17 05:40 Schistocytes Not Reportable 06/13/17 05:40 Malaria parasites Not Reportable 06/13/17 05:40 Herve Bodies Not Reportable 06/13/17 05:40 Hem Pathologist Commnt No 06/13/17 05:40 POC ABG pH 7.275 (7.35-7.45) L 06/15/17 04:02 POC ABG pCO2 37.7 (35-45) 06/15/17 04:02 POC ABG pO2 130 (80-105) H 06/15/17 04:02 POC ABG HCO3 17.5 06/15/17 04:02 POC ABG Total CO2 19 06/15/17 04:02 POC ABG O2 Sat 99 06/15/17 04:02 POC ABG Base Excess -9 06/15/17 04:02 FiO2 30 % 06/15/17 04:02 Sodium 145 mmol/L (137-145) 06/15/17 05:00 Potassium 3.7 mmol/L (3.6-5.0) 06/15/17 05:00 Chloride 108.8 mmol/L (98-107) H 06/15/17 05:00 Carbon Dioxide 18 mmol/L (22-30) L 06/15/17 05:00 Anion Gap 22 mmol/L 06/15/17 05:00 BUN 36 mg/dL (7-17) H 06/15/17 05:00 Creatinine 1.5 mg/dL (0.7-1.2) H 06/15/17 05:00 Estimated GFR 42 ml/min 06/15/17 05:00 BUN/Creatinine Ratio 24 % 06/15/17 05:00 Glucose 265 mg/dL (65-100) H 06/15/17 05:00 POC Glucose 257 (70-105) H 06/15/17 05:08 Lactic Acid 0.70 mmol/L (0.7-2.0) 06/12/17 22:38 Calcium 7.1 mg/dL (8.4-10.2) L 06/15/17 05:00 Total Creatine Kinase 26 units/L (30-135) L 06/13/17 05:40 CK-MB (CK-2) 3.2 ng/mL (0.0-4.0) 06/13/17 05:40 CK-MB (CK-2) Rel Index 12.3 (0-4) H 06/13/17 05:40 Troponin T 0.047 ng/mL (0.00-0.029) H 06/13/17 05:40 Triglycerides 76 mg/dL (2-149) 06/12/17 17:44 Cholesterol 88 mg/dL (50-199) 06/12/17 17:44 LDL Cholesterol Direct 32 mg/dL (50-130) L 06/12/17 17:44 HDL Cholesterol 41 mg/dL (40-59) 06/12/17 17:44 Cholesterol/HDL Ratio 2.14 % 06/12/17 17:44 Urine Color Yellow (Yellow) 06/13/17 14:00 Urine Turbidity Cloudy (Clear) 06/13/17 14:00 Urine pH 5.0 (5.0-7.0) 06/13/17 14:00 Ur Specific [place] 1.017 (1.003-1.030) 06/13/17 14:00 Urine Protein 100 mg/dl mg/dL (Negative) 06/13/17 14:00 Urine Glucose (UA) Neg mg/dL (Negative) 06/13/17 14:00 Urine Ketones Neg mg/dL (Negative) 06/13/17 14:00 Urine Blood Lg (Negative) 06/13/17 14:00 Urine Nitrite Neg (Negative) 06/13/17 14:00 Urine Bilirubin Neg (Negative) 06/13/17 14:00 Urine Urobilinogen < 2.0 mg/dL (<2.0) 06/13/17 14:00 Ur Leukocyte Esterase Lg (Negative) 06/13/17 14:00 Urine WBC (Auto) > 182.0 /HPF (0.0-6.0) H 06/13/17 14:00 Urine RBC (Auto) 44.0 /HPF (0.0-6.0) 06/13/17 14:00 U Epithel Cells (Auto) 4.0 /HPF (0-13.0) 06/12/17 01:34 Urine Bacteria (Auto) 1+ /HPF (Negative) 06/13/17 14:00 Urine WBC Clumps 1+ /HPF 06/12/17 01:34 Urine Mucus Few /HPF 06/13/17 14:00 Urine Yeast (Budding) Few /HPF 06/13/17 14:00 Urine Eosinophils None seen (None Seen) 06/13/17 14:00 Urine Creatinine 101.8 mg/dL (0.1-20.0) H 06/13/17 14:00 Urine Sodium 26 mmol/L 06/13/17 14:00 Fraction Sodium Excret 0.6 06/13/17 14:00 Random Vancomycin 9.5 ug/mL (0-40.0) 06/14/17 03:02
--- NOTE | 2017-06-15 11:19 | Progress Note ---
Assessment and Plan Impression * Acute renal failure. She most likely has a prerenal component. However do need to consider progression to ATN as well * Hyperkalemia secondary to acute kidney injury * Sepsis * Hypotension * Metabolic acidosis. Most likely secondary to lactic acidosis * Respiratory failure * Recent history of C. difficile colitis Recommendations * Patient's hyperkalemia has been corrected with medical therapy. * Renal function is improving. Fractional excretion of sodium is 0.6%. She most likely has a prerenal component. She is also currently nonoliguric . No indication for renal replacement therapy at this time * Acidosis improving with bicarbonate drip * He is however getting edematous. Shall reduce her IV fluids * Continue pressors to maintain an map of greater than 65 * She does have some pyuria as well as microhematuria. Follow-up results of urine cultures. She is currently on broad-spectrum antibiotics * Avoid nephrotoxins * Monitor fluid status and electrolytes closely Subjective Date of service: 06/15/17 Principal diagnosis: Acute resp failure ,LUIS Interval history: Patient remains on the ventilator. Currently on 35% FiO2. Awake and alert. She remains on a Levophed drip. Objective - Vital Signs Vital signs: Vital Signs - 12hr 06/14/17 06/14/17 06/14/17 23:30 23:42 23:46 Temperature Pulse Rate 73 78 72 Pulse Rate [ 87 Anterior Bilateral Throughout] Pulse Rate [ From Monitor] Respiratory 18 18 Rate Respiratory 18 Rate [Anterior Bilateral Throughout] Respiratory Rate [Bilateral Lower Leg] Blood Pressure 111/51 111/51 111/51 O2 Sat by Pulse 100 100 100 Oximetry 06/15/17 06/15/17 06/15/17 00:00 00:06 00:16 Temperature 97.6 F Pulse Rate 98 H 71 Pulse Rate [ 88 Anterior Bilateral Throughout] Pulse Rate [ 80 From Monitor] Respiratory 17 18 Rate Respiratory 18 Rate [Anterior Bilateral Throughout] Respiratory Rate [Bilateral Lower Leg] Blood Pressure 126/96 126/96 O2 Sat by Pulse 100 100 Oximetry 06/15/17 06/15/17 06/15/17 00:30 01:00 02:00 Temperature Pulse Rate 68 63 72 Pulse Rate [ Anterior Bilateral Throughout] Pulse Rate [ From Monitor] Respiratory 18 18 18 Rate Respiratory Rate [Anterior Bilateral Throughout] Respiratory Rate [Bilateral Lower Leg] Blood Pressure 126/96 104/49 115/65 O2 Sat by Pulse 100 98 Oximetry 06/15/17 06/15/17 06/15/17 03:00 03:35 03:51 Temperature 98.8 F Pulse Rate 80 84 Pulse Rate [ 88 Anterior Bilateral Throughout] Pulse Rate [ From Monitor] Respiratory 18 Rate Respiratory 19 Rate [Anterior Bilateral Throughout] Respiratory Rate [Bilateral Lower Leg] Blood Pressure 120/59 120/59 O2 Sat by Pulse 100 100 Oximetry 06/15/17 06/15/17 06/15/17 04:00 05:00 06:00 Temperature Pulse Rate 103 H 83 72 Pulse Rate [ Anterior Bilateral Throughout] Pulse Rate [ 70 From Monitor] Respiratory 20 17 17 Rate Respiratory Rate [Anterior Bilateral Throughout] Respiratory Rate [Bilateral Lower Leg] Blood Pressure 121/68 121/68 131/56 O2 Sat by Pulse 98 100 97 Oximetry 06/15/17 06/15/17 06/15/17 07:00 08:00 08:17 Temperature 97.5 F L Pulse Rate 72 83 66 Pulse Rate [ 71 Anterior Bilateral Throughout] Pulse Rate [ 90 From Monitor] Respiratory 14 19 13 Rate Respiratory 13 Rate [Anterior Bilateral Throughout] Respiratory 19 Rate [Bilateral Lower Leg] Blood Pressure 118/64 132/72 132/72 O2 Sat by Pulse 95 100 100 Oximetry 06/15/17 06/15/17 06/15/17 08:34 09:00 10:00 Temperature Pulse Rate 87 92 H 90 Pulse Rate [ 85 Anterior Bilateral Throughout] Pulse Rate [ From Monitor] Respiratory 12 19 20 Rate Respiratory 12 Rate [Anterior Bilateral Throughout] Respiratory Rate [Bilateral Lower Leg] Blood Pressure 132/72 139/80 130/70 O2 Sat by Pulse 100 99 99 Oximetry 06/15/17 10:38 Temperature Pulse Rate 78 Pulse Rate [ Anterior Bilateral Throughout] Pulse Rate [ From Monitor] Respiratory 14 Rate Respiratory Rate [Anterior Bilateral Throughout] Respiratory Rate [Bilateral Lower Leg] Blood Pressure 130/70 O2 Sat by Pulse 100 Oximetry - General Appearance General appearance: chronically ill, intubated, frail EENT: PERRL, mucous membranes moist Neck: no JVD, no thyromegaly, no carotid bruit, supple Respiratory: Present: Clear to Ascultation Cardiology: regular, normal heart rate, S1S2, no murmurs Gastrointestinal: normoactive bowel sounds, other (midline incision noted. Colostomy bag in place) Integumentary: other (1+ edema) - Lab 06/12/17 18:00 06/15/17 05:00 Most recent lab results Calcium 7.1 mg/dL (8.4-10.2) L 06/15/17 05:00 Urine Creatinine 101.8 mg/dL (0.1-20.0) H 06/13/17 14:00 Urine Sodium 26 mmol/L 06/13/17 14:00
--- NOTE | 2017-06-15 12:56 | XRay Report ---
Single view abdomen: Findings: Tip of Dobbhoff feeding tube is noted in distal stomach. No significant bowel distention. Impression: Tip of feeding tube noted distal stomach.
[2017-06-15] MEDS: VANCOMYCIN 750 MG in NACL 0.9% 250ML 250 ML IV SCH (13:03)
--- NOTE | 2017-06-15 14:04 | Progress Note ---
Assessment and Plan Impression Acute respiratory failure requiring intubation and mechanical ventilation COPD Sepsis and urinary tract infection Status post C. difficile colitis requiring partial colectomy Chronic renal failure/LUIS Metabolic acidosis ? lactic, preventing extubation Recommendations: Will add nebulizer treatments and short course of IV steroids Cont w/Bicarb drip Total critical care time 31 minute Subjective Date of service: 06/15/17 Principal diagnosis: Acute resp failure ,LUIS Interval history: Patient has remained intubated, awake responsive wants to have her tube removed. Objective Vital Signs - 12hr 06/15/17 06/15/17 06/15/17 03:00 03:35 03:51 Temperature 98.8 F Pulse Rate 80 84 Pulse Rate [ 88 Anterior Bilateral Throughout] Pulse Rate [ From Monitor] Respiratory 18 Rate Respiratory 19 Rate [Anterior Bilateral Throughout] Respiratory Rate [Bilateral Lower Leg] Blood Pressure 120/59 120/59 O2 Sat by Pulse 100 100 Oximetry 06/15/17 06/15/17 06/15/17 04:00 05:00 06:00 Temperature Pulse Rate 103 H 83 72 Pulse Rate [ Anterior Bilateral Throughout] Pulse Rate [ 70 From Monitor] Respiratory 20 17 17 Rate Respiratory Rate [Anterior Bilateral Throughout] Respiratory Rate [Bilateral Lower Leg] Blood Pressure 121/68 121/68 131/56 O2 Sat by Pulse 98 100 97 Oximetry 06/15/17 06/15/17 06/15/17 07:00 08:00 08:17 Temperature 97.5 F L Pulse Rate 72 83 66 Pulse Rate [ 71 Anterior Bilateral Throughout] Pulse Rate [ 90 From Monitor] Respiratory 14 19 13 Rate Respiratory 13 Rate [Anterior Bilateral Throughout] Respiratory 19 Rate [Bilateral Lower Leg] Blood Pressure 118/64 132/72 132/72 O2 Sat by Pulse 95 100 100 Oximetry 06/15/17 06/15/17 06/15/17 08:34 09:00 10:00 Temperature Pulse Rate 87 92 H 90 Pulse Rate [ 85 Anterior Bilateral Throughout] Pulse Rate [ From Monitor] Respiratory 12 19 20 Rate Respiratory 12 Rate [Anterior Bilateral Throughout] Respiratory Rate [Bilateral Lower Leg] Blood Pressure 132/72 139/80 130/70 O2 Sat by Pulse 100 99 99 Oximetry 06/15/17 06/15/17 06/15/17 10:38 11:24 12:00 Temperature 97.3 F L Pulse Rate 78 80 Pulse Rate [ Anterior Bilateral Throughout] Pulse Rate [ From Monitor] Respiratory 14 Rate Respiratory Rate [Anterior Bilateral Throughout] Respiratory Rate [Bilateral Lower Leg] Blood Pressure 130/70 131/72 O2 Sat by Pulse 100 100 Oximetry 06/15/17 06/15/17 12:08 12:35 Temperature Pulse Rate Pulse Rate [ 111 H 110 H Anterior Bilateral Throughout] Pulse Rate [ From Monitor] Respiratory Rate Respiratory 22 24 Rate [Anterior Bilateral Throughout] Respiratory Rate [Bilateral Lower Leg] Blood Pressure O2 Sat by Pulse Oximetry Constitutional: no acute distress, other ENT: other (orally intubated) Neck: supple, no lymphadenopathy Effort: normal Ascultation: Bilateral: diminished breath sounds Cardiovascular: regular rate and rhythm Gastrointestinal: normoactive bowel sounds, soft, non-tender Integumentary: normal Extremities: no cyanosis Neurologic: normal mental status CBC and BMP: 06/12/17 18:00 06/15/17 05:00 ABG, PT/INR, D-dimer: ABG POC ABG pH 7.265 (7.35-7.45) L 06/15/17 10:54 POC ABG pCO2 38.5 (35-45) 06/15/17 10:54 POC ABG pO2 72 (80-105) L 06/15/17 10:54 POC ABG HCO3 17.5 06/15/17 10:54 POC ABG Total CO2 19 06/15/17 10:54 POC ABG O2 Sat 92 06/15/17 10:54 Abnormal lab findings: Abnormal Labs 06/12/17 06/12/17 06/12/17 01:34 17:44 18:00 WBC 15.2 H RBC RDW 16.9 H Plt Count 1256 H* Seg Neuts % (Manual) 85.0 H Lymphocytes % (Manual) 4.0 L Monocytes % (Manual) 8.0 H Basophils % (Manual) 2.0 H Seg Neutrophils # Man 12.9 H Lymphocytes # (Manual) 0.6 L Monocytes # (Manual) 1.2 H Basophils # (Manual) 0.3 H POC ABG pH POC ABG pCO2 POC ABG pO2 Sodium 126 L Potassium 6.6 H* Chloride 91.7 L Carbon Dioxide 11 L BUN 70 H Creatinine 3.9 H Glucose POC Glucose Calcium 8.3 L Total Creatine Kinase CK-MB (CK-2) Rel Index Troponin T 0.073 H LDL Cholesterol Direct 32 L Urine WBC (Auto) > 182.0 H Urine Creatinine 06/12/17 06/12/17 06/12/17 18:56 22:03 22:38 WBC RBC RDW Plt Count Seg Neuts % (Manual) Lymphocytes % (Manual) Monocytes % (Manual) Basophils % (Manual) Seg Neutrophils # Man Lymphocytes # (Manual) Monocytes # (Manual) Basophils # (Manual) POC ABG pH POC ABG pCO2 POC ABG pO2 Sodium 135 L D Potassium 5.1 H D Chloride 94.9 L Carbon Dioxide BUN 65 H Creatinine 3.3 H Glucose 178 H POC Glucose 108 H Calcium 8.2 L Total Creatine Kinase 27 L CK-MB (CK-2) Rel Index 9.2 H Troponin T 0.057 H D LDL Cholesterol Direct Urine WBC (Auto) Urine Creatinine 06/13/17 06/13/17 06/13/17 01:08 05:40 05:40 WBC 15.7 H RBC 3.64 L RDW 16.8 H Plt Count 1178 H* Seg Neuts % (Manual) 78.0 H Lymphocytes % (Manual) 4.0 L Monocytes % (Manual) 11.0 H Basophils % (Manual) Seg Neutrophils # Man 12.2 H Lymphocytes # (Manual) 0.6 L Monocytes # (Manual) 1.7 H Basophils # (Manual) POC ABG pH POC ABG pCO2 POC ABG pO2 Sodium Potassium Chloride Carbon Dioxide BUN Creatinine Glucose POC Glucose 203 H Calcium Total Creatine Kinase 26 L CK-MB (CK-2) Rel Index 12.3 H Troponin T 0.047 H LDL Cholesterol Direct Urine WBC (Auto) Urine Creatinine 06/13/17 06/13/17 06/13/17 05:40 06:34 10:00 WBC RBC RDW Plt Count Seg Neuts % (Manual) Lymphocytes % (Manual) Monocytes % (Manual) Basophils % (Manual) Seg Neutrophils # Man Lymphocytes # (Manual) Monocytes # (Manual) Basophils # (Manual) POC ABG pH 7.171 L 7.244 L POC ABG pCO2 75.4 H 49.5 H POC ABG pO2 148 H 154 H Sodium 134 L Potassium Chloride 92.9 L Carbon Dioxide BUN 59 H Creatinine 3.1 H Glucose 242 H POC Glucose Calcium 7.6 L Total Creatine Kinase CK-MB (CK-2) Rel Index Troponin T LDL Cholesterol Direct Urine WBC (Auto) Urine Creatinine 06/13/17 06/13/17 06/13/17 14:00 14:00 18:30 WBC RBC RDW Plt Count Seg Neuts % (Manual) Lymphocytes % (Manual) Monocytes % (Manual) Basophils % (Manual) Seg Neutrophils # Man Lymphocytes # (Manual) Monocytes # (Manual) Basophils # (Manual) POC ABG pH POC ABG pCO2 POC ABG pO2 Sodium Potassium Chloride Carbon Dioxide BUN Creatinine 2.4 H Glucose POC Glucose Calcium Total Creatine Kinase CK-MB (CK-2) Rel Index Troponin T LDL Cholesterol Direct Urine WBC (Auto) > 182.0 H Urine Creatinine 101.8 H 06/14/17 06/14/17 06/14/17 04:08 04:48 05:22 WBC RBC RDW Plt Count Seg Neuts % (Manual) Lymphocytes % (Manual) Monocytes % (Manual) Basophils % (Manual) Seg Neutrophils # Man Lymphocytes # (Manual) Monocytes # (Manual) Basophils # (Manual) POC ABG pH 7.247 L 7.310 L POC ABG pCO2 31.1 L POC ABG pO2 39 L Sodium Potassium Chloride Carbon Dioxide 16 L D BUN 46 H Creatinine 2.1 H Glucose 64 L POC Glucose Calcium 6.7 L Total Creatine Kinase CK-MB (CK-2) Rel Index Troponin T LDL Cholesterol Direct Urine WBC (Auto) Urine Creatinine 06/14/17 06/14/17 06/14/17 06:53 17:26 18:42 WBC RBC RDW Plt Count Seg Neuts % (Manual) Lymphocytes % (Manual) Monocytes % (Manual) Basophils % (Manual) Seg Neutrophils # Man Lymphocytes # (Manual) Monocytes # (Manual) Basophils # (Manual) POC ABG pH 7.257 L POC ABG pCO2 POC ABG pO2 Sodium Potassium Chloride Carbon Dioxide BUN Creatinine Glucose POC Glucose 226 H 148 H Calcium Total Creatine Kinase CK-MB (CK-2) Rel Index Troponin T LDL Cholesterol Direct Urine WBC (Auto) Urine Creatinine 06/14/17 06/15/17 06/15/17 23:29 04:02 05:00 WBC RBC RDW Plt Count Seg Neuts % (Manual) Lymphocytes % (Manual) Monocytes % (Manual) Basophils % (Manual) Seg Neutrophils # Man Lymphocytes # (Manual) Monocytes # (Manual) Basophils # (Manual) POC ABG pH 7.275 L POC ABG pCO2 POC ABG pO2 130 H Sodium Potassium Chloride 108.8 H Carbon Dioxide 18 L BUN 36 H Creatinine 1.5 H Glucose 265 H POC Glucose 255 H Calcium 7.1 L Total Creatine Kinase CK-MB (CK-2) Rel Index Troponin T LDL Cholesterol Direct Urine WBC (Auto) Urine Creatinine 06/15/17 06/15/17 06/15/17 05:08 10:54 11:56 WBC RBC RDW Plt Count Seg Neuts % (Manual) Lymphocytes % (Manual) Monocytes % (Manual) Basophils % (Manual) Seg Neutrophils # Man Lymphocytes # (Manual) Monocytes # (Manual) Basophils # (Manual) POC ABG pH 7.265 L POC ABG pCO2 POC ABG pO2 72 L Sodium Potassium Chloride Carbon Dioxide BUN Creatinine Glucose POC Glucose 257 H 240 H Calcium Total Creatine Kinase CK-MB (CK-2) Rel Index Troponin T LDL Cholesterol Direct Urine WBC (Auto) Urine Creatinine
[2017-06-15] MEDS: NOVOLOG SUB-Q SCH ×2 (14:28→18:43)
[2017-06-16] MEDS: [UNRECOGNIZED DRUG - OTHER] IV SCH ×2 (00:46→18:29)
[2017-06-16] MEDS: D5 IV SCH ×2 (00:46→18:29)
[2017-06-16] MEDS: ZOSYN/NS 2.25 GM/50ML 2.25 GM/50 ML BAG IV SCH ×4 (00:46→17:17)
[2017-06-16] MEDS: SODIUM BICARBONATE IV SCH ×2 (00:46→18:29)
[2017-06-16] MEDS: MORPHINE IV PRN ×4 (00:48→18:28)
[2017-06-16] MEDS: NOVOLOG SUB-Q SCH ×3 (00:52→18:28)
--- NOTE | 2017-06-16 02:43 | XRay Report ---
FINAL REPORT EXAM: XR CHEST 1V AP HISTORY: follow up respiratory failure COMPARISON: June 15, 2017. FINDINGS: Frontal view(s) of the chest obtained. Heart upper limits normal in size. Distal tip of the ET tube approximately 6 centimeters from the jena. Distal tip of feeding tube not visualized but extends at least to the mid to distal stomach. Lungs are grossly clear. No pneumothorax. IMPRESSION: ETT and feeding tube in gross satisfactory position. Lungs are grossly clear.
[2017-06-16] MEDS: DUONEB *Not for PRN Use IH SCH ×5 (03:38→19:54)
[2017-06-16 08:15] LABS: Hematocrit 25.9 % (30.3-42.9); Hemoglobin 8.5 gm/dl (10.1-14.3); Mean Corpuscular HGB Conc 33 % (30-34); Mean Corpuscular Hemoglobin 28 pg (28-32); Mean Corpuscular Volume 87 fl (79-97); Red Blood Count 2.99 M/mm3 (3.65-5.03); Red Cell Distribution Width 17.5 % (13.2-15.2)
[2017-06-16 08:32] LABS: Calcium 7.4 mg/dL (8.4-10.2)
[2017-06-16 08:34] LABS: Platelet Count 1030 K/mm3 (140-440)
[2017-06-16] MEDS: LOVENOX SUB-Q SCH (09:12)
[2017-06-16 09:47] LABS: Band Neutrophils # (Manual) 0.2 K/mm3; Basophils % (Manual) 0 % (0.0-1.8); Eosinophils % (Manual) 0 % (0.0-4.3); Total Cells Counted 100
[2017-06-16 09:48] LABS: Anisocytosis 1+; Burr Cells Few; Helmet Cells Rare; Ovalocytes 1+; Poikilocytosis 1+; Target Cells 1+
[2017-06-16 09:49] LABS: Large Platelets Few; Platelet Estimate Appears Increased
--- NOTE | 2017-06-16 10:30 | Progress Note ---
Assessment and Plan Assessment and plan: Acute resp failure- Patient intubated. Cont vent support and Duonebs. Pulm following. Septic shock-IV Levophed IV Vancomycin and IV Zosyn. leukocytosis is worse. Continue pressors to maintain a MAP of greater than 65 Hyperkalemia -resolved. Metabolic acidosis. Most likely secondary to lactic acidosis C diff colitis was treated. Elevated Troponin -chronic ARF. Etiology likely secondary to LUIS vs. vasomotor nephropathy. Creatinine improving. Cont IV fluids. Avoid nephrotoxins COPD. Cont Neb treatments Dvt /Gi prophylaxis History Interval history: pt intubated and on pressors of [facility] Hospitalist Physical - Constitutional Vitals: Temp Pulse Resp BP Pulse Ox 98.4 F 62 18 133/77 100 06/16/17 08:00 06/16/17 09:00 06/16/17 09:00 06/16/17 09:00 06/16/17 09:00 General appearance: Present: mild distress, well-nourished - EENT Eyes: Present: PERRL, EOM intact ENT: hearing intact, clear oral mucosa, dentition normal - Neck Neck: Present: supple, normal ROM - Respiratory Respiratory effort: normal Respiratory: bilateral: CTA - Cardiovascular Rhythm: regular Heart Sounds: Present: S1 & S2. Absent: gallop, rub - Extremities Extremities: no ischemia, No edema, Full ROM - Abdominal General gastrointestinal: soft, non-tender, non-distended, normal bowel sounds - Integumentary Integumentary: Present: clear, warm, dry - Neurologic Neurologic: CNII-XII intact, moves all extremities Results - Labs CBC & Chem 7: 06/16/17 04:00 06/16/17 05:00 Labs: Laboratory Last Values WBC 20.2 K/mm3 (4.5-11.0) H 06/16/17 04:00 RBC 2.99 M/mm3 (3.65-5.03) L 06/16/17 04:00 Hgb 8.5 gm/dl (10.1-14.3) L 06/16/17 04:00 Hct 25.9 % (30.3-42.9) L D 06/16/17 04:00 MCV 87 fl (79-97) 06/16/17 04:00 MCH 28 pg (28-32) 06/16/17 04:00 MCHC 33 % (30-34) 06/16/17 04:00 RDW 17.5 % (13.2-15.2) H 06/16/17 04:00 Plt Count 1030 K/mm3 (140-440) H* 06/16/17 04:00 Add Manual Diff Complete 06/16/17 04:00 Total Counted 100 06/16/17 04:00 Seg Neutrophils % Client Support Representative 06/16/17 04:00 Seg Neuts % (Manual) 92.0 % (40.0-70.0) H 06/16/17 04:00 Band Neutrophils % 1.0 % 06/16/17 04:00 Lymphocytes % (Manual) 1.0 % (13.4-35.0) L 06/16/17 04:00 Reactive Lymphs % (Man) 0 % 06/16/17 04:00 Monocytes % (Manual) 5.0 % (0.0-7.3) 06/16/17 04:00 Eosinophils % (Manual) 0 % (0.0-4.3) 06/16/17 04:00 Basophils % (Manual) 0 % (0.0-1.8) 06/16/17 04:00 Metamyelocytes % 1.0 % 06/16/17 04:00 Myelocytes % 0 % 06/16/17 04:00 Promyelocytes % 0 % 06/16/17 04:00 Blast Cells % 0 % 06/16/17 04:00 Nucleated RBC % 2.0 % (0.0-0.9) H 06/16/17 04:00 Seg Neutrophils # Man 18.6 K/mm3 (1.8-7.7) H 06/16/17 04:00 Band Neutrophils # 0.2 K/mm3 06/16/17 04:00 Lymphocytes # (Manual) 0.2 K/mm3 (1.2-5.4) L 06/16/17 04:00 Abs React Lymphs (Man) 0.0 K/mm3 06/16/17 04:00 Monocytes # (Manual) 1.0 K/mm3 (0.0-0.8) H 06/16/17 04:00 Eosinophils # (Manual) 0.0 K/mm3 (0.0-0.4) 06/16/17 04:00 Basophils # (Manual) 0.0 K/mm3 (0.0-0.1) 06/16/17 04:00 Metamyelocytes # 0.2 K/mm3 06/16/17 04:00 Myelocytes # 0.0 K/mm3 06/16/17 04:00 Promyelocytes # 0.0 K/mm3 06/16/17 04:00 Blast Cells # 0.0 K/mm3 06/16/17 04:00 Pathologist Review 06/12/17 18:00 WBC Morphology Not Reportable 06/16/17 04:00 Hypersegmented Neuts Not Reportable 06/16/17 04:00 Hyposegmented Neuts Not Reportable 06/16/17 04:00 Hypogranular Neuts Not Reportable 06/16/17 04:00 Smudge Cells Not Reportable 06/16/17 04:00 Toxic Granulation Not Reportable 06/16/17 04:00 Toxic Vacuolation Not Reportable 06/16/17 04:00 Dohle Bodies Not Reportable 06/16/17 04:00 Pelger-Huet Anomaly Not Reportable 06/16/17 04:00 Neisha Rods Not Reportable 06/16/17 04:00 Platelet Estimate Appears increased 06/16/17 04:00 Clumped Platelets Not Reportable 06/16/17 04:00 Plt Clumps, EDTA Not Reportable 06/16/17 04:00 Large Platelets Few 06/16/17 04:00 Giant Platelets Not Reportable 06/16/17 04:00 Platelet Satelliting Not Reportable 06/16/17 04:00 Plt Morphology Comment Not Reportable 06/16/17 04:00 RBC Morphology Not Reportable 06/16/17 04:00 Dimorphic RBCs Not Reportable 06/16/17 04:00 Polychromasia Few 06/16/17 04:00 Hypochromasia Not Reportable 06/16/17 04:00 Poikilocytosis 1+ 06/16/17 04:00 Anisocytosis 1+ 06/16/17 04:00 Microcytosis Few 06/16/17 04:00 Macrocytosis Not Reportable 06/16/17 04:00 Spherocytes Not Reportable 06/16/17 04:00 Pappenheimer Bodies Not Reportable 06/16/17 04:00 Sickle Cells Not Reportable 06/16/17 04:00 Target Cells 1+ 06/16/17 04:00 Tear Drop Cells Not Reportable 06/16/17 04:00 Ovalocytes 1+ 06/16/17 04:00 Helmet Cells Rare 06/16/17 04:00 [place] Bodies Not Reportable 06/16/17 04:00 [place] Rings Not Reportable 06/16/17 04:00 Damián Cells Few 06/16/17 04:00 Bite Cells Not Reportable 06/16/17 04:00 Crenated Cell Not Reportable 06/16/17 04:00 Elliptocytes Not Reportable 06/16/17 04:00 Acanthocytes (Spur) Not Reportable 06/16/17 04:00 Rouleaux Not Reportable 06/16/17 04:00 Hemoglobin C Crystals Not Reportable 06/16/17 04:00 Schistocytes Not Reportable 06/16/17 04:00 Malaria parasites Not Reportable 06/16/17 04:00 Herve Bodies Not Reportable 06/16/17 04:00 Hem Pathologist Commnt No 06/16/17 04:00 POC ABG pH 7.393 (7.35-7.45) 06/16/17 04:03 POC ABG pCO2 30.8 (35-45) L 06/16/17 04:03 POC ABG pO2 92 (80-105) 06/16/17 04:03 POC ABG HCO3 18.8 06/16/17 04:03 POC ABG Total CO2 20 06/16/17 04:03 POC ABG O2 Sat 97 06/16/17 04:03 POC ABG Base Excess -6 06/16/17 04:03 FiO2 25 % 06/16/17 04:03 Sodium 146 mmol/L (137-145) H 06/16/17 05:00 Potassium 3.4 mmol/L (3.6-5.0) L 06/16/17 05:00 Chloride 109.1 mmol/L (98-107) H 06/16/17 05:00 Carbon Dioxide 20 mmol/L (22-30) L 06/16/17 05:00 Anion Gap 20 mmol/L 06/16/17 05:00 BUN 33 mg/dL (7-17) H 06/16/17 05:00 Creatinine 1.4 mg/dL (0.7-1.2) H 06/16/17 05:00 Estimated GFR 46 ml/min 06/16/17 05:00 BUN/Creatinine Ratio 24 % 06/16/17 05:00 Glucose 108 mg/dL (65-100) H 06/16/17 05:00 POC Glucose 104 (70-105) 06/16/17 05:34 Lactic Acid 2.90 mmol/L (0.7-2.0) H* 06/15/17 14:25 Calcium 7.4 mg/dL (8.4-10.2) L 06/16/17 05:00 Total Creatine Kinase 26 units/L (30-135) L 06/13/17 05:40 CK-MB (CK-2) 3.2 ng/mL (0.0-4.0) 06/13/17 05:40 CK-MB (CK-2) Rel Index 12.3 (0-4) H 06/13/17 05:40 Troponin T 0.047 ng/mL (0.00-0.029) H 06/13/17 05:40 Triglycerides 76 mg/dL (2-149) 06/12/17 17:44 Cholesterol 88 mg/dL (50-199) 06/12/17 17:44 LDL Cholesterol Direct 32 mg/dL (50-130) L 06/12/17 17:44 HDL Cholesterol 41 mg/dL (40-59) 06/12/17 17:44 Cholesterol/HDL Ratio 2.14 % 06/12/17 17:44 Urine Color Yellow (Yellow) 06/13/17 14:00 Urine Turbidity Cloudy (Clear) 06/13/17 14:00 Urine pH 5.0 (5.0-7.0) 06/13/17 14:00 Ur Specific [place] 1.017 (1.003-1.030) 06/13/17 14:00 Urine Protein 100 mg/dl mg/dL (Negative) 06/13/17 14:00 Urine Glucose (UA) Neg mg/dL (Negative) 06/13/17 14:00 Urine Ketones Neg mg/dL (Negative) 06/13/17 14:00 Urine Blood Lg (Negative) 06/13/17 14:00 Urine Nitrite Neg (Negative) 06/13/17 14:00 Urine Bilirubin Neg (Negative) 06/13/17 14:00 Urine Urobilinogen < 2.0 mg/dL (<2.0) 06/13/17 14:00 Ur Leukocyte Esterase Lg (Negative) 06/13/17 14:00 Urine WBC (Auto) > 182.0 /HPF (0.0-6.0) H 06/13/17 14:00 Urine RBC (Auto) 44.0 /HPF (0.0-6.0) 06/13/17 14:00 U Epithel Cells (Auto) 4.0 /HPF (0-13.0) 06/12/17 01:34 Urine Bacteria (Auto) 1+ /HPF (Negative) 06/13/17 14:00 Urine WBC Clumps 1+ /HPF 06/12/17 01:34 Urine Mucus Few /HPF 06/13/17 14:00 Urine Yeast (Budding) Few /HPF 06/13/17 14:00 Urine Eosinophils None seen (None Seen) 06/13/17 14:00 Urine Creatinine 101.8 mg/dL (0.1-20.0) H 06/13/17 14:00 Urine Sodium 26 mmol/L 06/13/17 14:00 Fraction Sodium Excret 0.6 06/13/17 14:00 Random Vancomycin 9.5 ug/mL (0-40.0) 06/14/17 03:02
--- NOTE | 2017-06-16 11:03 | Progress Note ---
Assessment and Plan Impression * Acute renal failure. She most likely has a prerenal component. However do need to consider progression to ATN as well * Hyperkalemia secondary to acute kidney injury * Sepsis * Hypotension * Metabolic acidosis. Most likely secondary to lactic acidosis * Respiratory failure * Recent history of C. difficile colitis Recommendations * Patient's hyperkalemia has been corrected with medical therapy. * Renal function is improving. Fractional excretion of sodium is 0.6%. She most likely has a prerenal component. She is also currently nonoliguric . No indication for renal replacement therapy at this time * Acidosis improving with bicarbonate drip * Continue pressors to maintain an map of greater than 65 * She does have some pyuria as well as microhematuria. Follow-up results of urine cultures. She is currently on broad-spectrum antibiotics * Avoid nephrotoxins * Monitor fluid status and electrolytes closely Subjective Date of service: 06/16/17 Principal diagnosis: Acute resp failure ,LUIS Interval history: Patient remains on the ventilator. Awake and alert. Currently on 35% FiO2. Still on Levophed. Objective - Vital Signs Vital signs: Vital Signs - 12hr 06/15/17 06/15/17 06/16/17 23:35 23:49 00:00 Temperature 97.9 F Pulse Rate 69 74 Pulse Rate [ 65 From Monitor] Respiratory 17 Rate Blood Pressure 130/71 127/51 O2 Sat by Pulse 100 100 Oximetry 06/16/17 06/16/17 06/16/17 01:00 02:00 03:00 Temperature Pulse Rate 67 63 67 Pulse Rate [ From Monitor] Respiratory 18 19 18 Rate Blood Pressure 134/64 122/51 133/54 O2 Sat by Pulse 98 100 100 Oximetry 06/16/17 06/16/17 06/16/17 03:39 04:00 05:00 Temperature 98.4 F Pulse Rate 66 69 65 Pulse Rate [ From Monitor] Respiratory 18 18 Rate Blood Pressure 133/54 133/52 133/52 O2 Sat by Pulse 99 99 Oximetry 06/16/17 06/16/17 06/16/17 06:00 07:00 07:37 Temperature Pulse Rate 99 H 78 Pulse Rate [ From Monitor] Respiratory 15 18 Rate Blood Pressure 142/78 152/60 O2 Sat by Pulse 99 98 Oximetry 06/16/17 06/16/17 08:00 09:00 Temperature 98.4 F Pulse Rate 63 62 Pulse Rate [ From Monitor] Respiratory 17 18 Rate Blood Pressure 140/81 133/77 O2 Sat by Pulse 100 100 Oximetry - General Appearance General appearance: chronically ill, intubated, frail EENT: PERRL, mucous membranes moist Neck: no JVD, no thyromegaly, no carotid bruit, supple Respiratory: Present: Clear to Ascultation Cardiology: regular, normal heart rate Gastrointestinal: normoactive bowel sounds, other (midline incision noted. Colostomy bag in place) Integumentary: other (1+ edema) - Lab 06/16/17 04:00 06/16/17 05:00 Most recent lab results Calcium 7.4 mg/dL (8.4-10.2) L 06/16/17 05:00 Urine Creatinine 101.8 mg/dL (0.1-20.0) H 06/13/17 14:00 Urine Sodium 26 mmol/L 06/13/17 14:00
[2017-06-16] MEDS: VANCOMYCIN 750 MG in NACL 0.9% 250ML 250 ML IV SCH (11:50)
--- NOTE | 2017-06-16 16:31 | Progress Note ---
Assessment and Plan Impression Acute respiratory failure requiring intubation and mechanical ventilation COPD Sepsis and urinary tract infection Status post C. difficile colitis requiring partial colectomy Chronic renal failure/LUIS Metabolic acidosis ? lactic, preventing extubation Recommendations: Will add nebulizer treatments and short course of IV steroids Cont w/Bicarb drip Patient was extubated we'll monitor closely on supplemental oxygen. Total critical care time 31 minute Subjective Date of service: 06/16/17 Principal diagnosis: Acute resp failure ,LUIS Interval history: Patient tolerated CPAP trial well and since metabolic acidosis is better control patient was extubated earlier today. Objective Vital Signs - 12hr 06/16/17 06/16/17 06/16/17 05:00 06:00 07:00 Temperature Pulse Rate 65 99 H 78 Respiratory 18 15 18 Rate Blood Pressure 133/52 142/78 152/60 O2 Sat by Pulse 99 Oximetry 06/16/17 06/16/17 06/16/17 07:37 08:00 09:00 Temperature 98.4 F Pulse Rate 63 62 Respiratory 17 18 Rate Blood Pressure 140/81 133/77 O2 Sat by Pulse 98 100 100 Oximetry 06/16/17 06/16/17 06/16/17 09:15 09:55 10:00 Temperature Pulse Rate 91 H 69 89 Respiratory 18 18 Rate Blood Pressure 137/77 133/77 136/73 O2 Sat by Pulse 98 97 Oximetry 06/16/17 06/16/17 06/16/17 11:00 12:00 13:00 Temperature Pulse Rate 80 87 91 H Respiratory 17 18 20 Rate Blood Pressure 146/74 124/67 137/77 O2 Sat by Pulse 98 100 Oximetry 06/16/17 06/16/17 06/16/17 14:00 15:00 16:00 Temperature Pulse Rate 95 H 87 85 Respiratory 19 17 16 Rate Blood Pressure 134/69 126/69 127/72 O2 Sat by Pulse 100 99 100 Oximetry Constitutional: no acute distress, other ENT: other (orally intubated) Neck: supple, no lymphadenopathy Effort: normal Ascultation: Bilateral: diminished breath sounds Cardiovascular: regular rate and rhythm Gastrointestinal: normoactive bowel sounds, soft, non-tender Integumentary: normal Extremities: no cyanosis Neurologic: normal mental status CBC and BMP: 06/16/17 04:00 06/16/17 05:00 ABG, PT/INR, D-dimer: ABG POC ABG pH 7.379 (7.35-7.45) 06/16/17 12:19 POC ABG pCO2 36.9 (35-45) 06/16/17 12:19 POC ABG pO2 66 (80-105) L 06/16/17 12:19 POC ABG HCO3 21.8 06/16/17 12:19 POC ABG Total CO2 23 06/16/17 12:19 POC ABG O2 Sat 92 06/16/17 12:19 Abnormal lab findings: Abnormal Labs 06/12/17 06/12/17 06/12/17 01:34 17:44 18:00 WBC 15.2 H RBC Hgb Hct RDW 16.9 H Plt Count 1256 H* Seg Neuts % (Manual) 85.0 H Lymphocytes % (Manual) 4.0 L Monocytes % (Manual) 8.0 H Basophils % (Manual) 2.0 H Nucleated RBC % Seg Neutrophils # Man 12.9 H Lymphocytes # (Manual) 0.6 L Monocytes # (Manual) 1.2 H Basophils # (Manual) 0.3 H POC ABG pH POC ABG pCO2 POC ABG pO2 Sodium 126 L Potassium 6.6 H* Chloride 91.7 L Carbon Dioxide 11 L BUN 70 H Creatinine 3.9 H Glucose POC Glucose Lactic Acid Calcium 8.3 L Total Creatine Kinase CK-MB (CK-2) Rel Index Troponin T 0.073 H LDL Cholesterol Direct 32 L Urine WBC (Auto) > 182.0 H Urine Creatinine 06/12/17 06/12/17 06/12/17 18:56 22:03 22:38 WBC RBC Hgb Hct RDW Plt Count Seg Neuts % (Manual) Lymphocytes % (Manual) Monocytes % (Manual) Basophils % (Manual) Nucleated RBC % Seg Neutrophils # Man Lymphocytes # (Manual) Monocytes # (Manual) Basophils # (Manual) POC ABG pH POC ABG pCO2 POC ABG pO2 Sodium 135 L D Potassium 5.1 H D Chloride 94.9 L Carbon Dioxide BUN 65 H Creatinine 3.3 H Glucose 178 H POC Glucose 108 H Lactic Acid Calcium 8.2 L Total Creatine Kinase 27 L CK-MB (CK-2) Rel Index 9.2 H Troponin T 0.057 H D LDL Cholesterol Direct Urine WBC (Auto) Urine Creatinine 06/13/17 06/13/17 06/13/17 01:08 05:40 05:40 WBC 15.7 H RBC 3.64 L Hgb Hct RDW 16.8 H Plt Count 1178 H* Seg Neuts % (Manual) 78.0 H Lymphocytes % (Manual) 4.0 L Monocytes % (Manual) 11.0 H Basophils % (Manual) Nucleated RBC % Seg Neutrophils # Man 12.2 H Lymphocytes # (Manual) 0.6 L Monocytes # (Manual) 1.7 H Basophils # (Manual) POC ABG pH POC ABG pCO2 POC ABG pO2 Sodium Potassium Chloride Carbon Dioxide BUN Creatinine Glucose POC Glucose 203 H Lactic Acid Calcium Total Creatine Kinase 26 L CK-MB (CK-2) Rel Index 12.3 H Troponin T 0.047 H LDL Cholesterol Direct Urine WBC (Auto) Urine Creatinine 06/13/17 06/13/17 06/13/17 05:40 06:34 10:00 WBC RBC Hgb Hct RDW Plt Count Seg Neuts % (Manual) Lymphocytes % (Manual) Monocytes % (Manual) Basophils % (Manual) Nucleated RBC % Seg Neutrophils # Man Lymphocytes # (Manual) Monocytes # (Manual) Basophils # (Manual) POC ABG pH 7.171 L 7.244 L POC ABG pCO2 75.4 H 49.5 H POC ABG pO2 148 H 154 H Sodium 134 L Potassium Chloride 92.9 L Carbon Dioxide BUN 59 H Creatinine 3.1 H Glucose 242 H POC Glucose Lactic Acid Calcium 7.6 L Total Creatine Kinase CK-MB (CK-2) Rel Index Troponin T LDL Cholesterol Direct Urine WBC (Auto) Urine Creatinine 06/13/17 06/13/17 06/13/17 14:00 14:00 18:30 WBC RBC Hgb Hct RDW Plt Count Seg Neuts % (Manual) Lymphocytes % (Manual) Monocytes % (Manual) Basophils % (Manual) Nucleated RBC % Seg Neutrophils # Man Lymphocytes # (Manual) Monocytes # (Manual) Basophils # (Manual) POC ABG pH POC ABG pCO2 POC ABG pO2 Sodium Potassium Chloride Carbon Dioxide BUN Creatinine 2.4 H Glucose POC Glucose Lactic Acid Calcium Total Creatine Kinase CK-MB (CK-2) Rel Index Troponin T LDL Cholesterol Direct Urine WBC (Auto) > 182.0 H Urine Creatinine 101.8 H 06/14/17 06/14/17 06/14/17 04:08 04:48 05:22 WBC RBC Hgb Hct RDW Plt Count Seg Neuts % (Manual) Lymphocytes % (Manual) Monocytes % (Manual) Basophils % (Manual) Nucleated RBC % Seg Neutrophils # Man Lymphocytes # (Manual) Monocytes # (Manual) Basophils # (Manual) POC ABG pH 7.247 L 7.310 L POC ABG pCO2 31.1 L POC ABG pO2 39 L Sodium Potassium Chloride Carbon Dioxide 16 L D BUN 46 H Creatinine 2.1 H Glucose 64 L POC Glucose Lactic Acid Calcium 6.7 L Total Creatine Kinase CK-MB (CK-2) Rel Index Troponin T LDL Cholesterol Direct Urine WBC (Auto) Urine Creatinine 06/14/17 06/14/17 06/14/17 06:53 17:26 18:42 WBC RBC Hgb Hct RDW Plt Count Seg Neuts % (Manual) Lymphocytes % (Manual) Monocytes % (Manual) Basophils % (Manual) Nucleated RBC % Seg Neutrophils # Man Lymphocytes # (Manual) Monocytes # (Manual) Basophils # (Manual) POC ABG pH 7.257 L POC ABG pCO2 POC ABG pO2 Sodium Potassium Chloride Carbon Dioxide BUN Creatinine Glucose POC Glucose 226 H 148 H Lactic Acid Calcium Total Creatine Kinase CK-MB (CK-2) Rel Index Troponin T LDL Cholesterol Direct Urine WBC (Auto) Urine Creatinine 06/14/17 06/15/17 06/15/17 23:29 04:02 05:00 WBC RBC Hgb Hct RDW Plt Count Seg Neuts % (Manual) Lymphocytes % (Manual) Monocytes % (Manual) Basophils % (Manual) Nucleated RBC % Seg Neutrophils # Man Lymphocytes # (Manual) Monocytes # (Manual) Basophils # (Manual) POC ABG pH 7.275 L POC ABG pCO2 POC ABG pO2 130 H Sodium Potassium Chloride 108.8 H Carbon Dioxide 18 L BUN 36 H Creatinine 1.5 H Glucose 265 H POC Glucose 255 H Lactic Acid Calcium 7.1 L Total Creatine Kinase CK-MB (CK-2) Rel Index Troponin T LDL Cholesterol Direct Urine WBC (Auto) Urine Creatinine 06/15/17 06/15/17 06/15/17 05:08 10:54 11:56 WBC RBC Hgb Hct RDW Plt Count Seg Neuts % (Manual) Lymphocytes % (Manual) Monocytes % (Manual) Basophils % (Manual) Nucleated RBC % Seg Neutrophils # Man Lymphocytes # (Manual) Monocytes # (Manual) Basophils # (Manual) POC ABG pH 7.265 L POC ABG pCO2 POC ABG pO2 72 L Sodium Potassium Chloride Carbon Dioxide BUN Creatinine Glucose POC Glucose 257 H 240 H Lactic Acid Calcium Total Creatine Kinase CK-MB (CK-2) Rel Index Troponin T LDL Cholesterol Direct Urine WBC (Auto) Urine Creatinine 06/15/17 06/15/17 06/16/17 14:25 17:45 00:07 WBC RBC Hgb Hct RDW Plt Count Seg Neuts % (Manual) Lymphocytes % (Manual) Monocytes % (Manual) Basophils % (Manual) Nucleated RBC % Seg Neutrophils # Man Lymphocytes # (Manual) Monocytes # (Manual) Basophils # (Manual) POC ABG pH POC ABG pCO2 POC ABG pO2 Sodium Potassium Chloride Carbon Dioxide BUN Creatinine Glucose POC Glucose 109 H 167 H Lactic Acid 2.90 H* Calcium Total Creatine Kinase CK-MB (CK-2) Rel Index Troponin T LDL Cholesterol Direct Urine WBC (Auto) Urine Creatinine 06/16/17 06/16/17 06/16/17 04:00 04:03 05:00 WBC 20.2 H RBC 2.99 L Hgb 8.5 L Hct 25.9 L D RDW 17.5 H Plt Count 1030 H* Seg Neuts % (Manual) 92.0 H Lymphocytes % (Manual) 1.0 L Monocytes % (Manual) Basophils % (Manual) Nucleated RBC % 2.0 H Seg Neutrophils # Man 18.6 H Lymphocytes # (Manual) 0.2 L Monocytes # (Manual) 1.0 H Basophils # (Manual) POC ABG pH POC ABG pCO2 30.8 L POC ABG pO2 Sodium 146 H Potassium 3.4 L Chloride 109.1 H Carbon Dioxide 20 L BUN 33 H Creatinine 1.4 H Glucose 108 H POC Glucose Lactic Acid Calcium 7.4 L Total Creatine Kinase CK-MB (CK-2) Rel Index Troponin T LDL Cholesterol Direct Urine WBC (Auto) Urine Creatinine 06/16/17 06/16/17 12:10 12:19 WBC RBC Hgb Hct RDW Plt Count Seg Neuts % (Manual) Lymphocytes % (Manual) Monocytes % (Manual) Basophils % (Manual) Nucleated RBC % Seg Neutrophils # Man Lymphocytes # (Manual) Monocytes # (Manual) Basophils # (Manual) POC ABG pH POC ABG pCO2 POC ABG pO2 59 L 66 L Sodium Potassium Chloride Carbon Dioxide BUN Creatinine Glucose POC Glucose Lactic Acid Calcium Total Creatine Kinase CK-MB (CK-2) Rel Index Troponin T LDL Cholesterol Direct Urine WBC (Auto) Urine Creatinine
[2017-06-17] MEDS: ZOSYN/NS 2.25 GM/50ML 2.25 GM/50 ML BAG IV SCH ×4 (00:38→18:30)
[2017-06-17] MEDS: NOVOLOG SUB-Q SCH ×5 (00:40→18:24)
--- NOTE | 2017-06-17 07:57 | XRay Report ---
PORTABLE CHEST INDICATION: Followup respiratory failure. COMPARISON: Yesterday. FINDINGS: Portable, frontal chest radiograph, 1:40 AM, 06/17/2017 now suggests subtle haziness developing at the lung bases, right more than left, partly obscuring the hemidiaphragms, and not excluded for subtle layering pleural fluid. No cephalization. Stable cardiomediastinal silhouette, aortic knob calcifications, Dobbhoff tube extending into the stomach and beyond the inferior radiographic margin, EKG leads and osseous structures. Interval ET tube removal. CONCLUSION: 1. Interval extubation with subtle bibasilar haziness/pleural effusions suspected developing, as described. Please correlate. 2. Few other findings, as above. Thank you for the opportunity to participate in this patient's care.
[2017-06-17 08:27] LABS: Hematocrit 26.6 % (30.3-42.9); Hemoglobin 8.3 gm/dl (10.1-14.3); Mean Corpuscular HGB Conc 31 % (30-34); Mean Corpuscular Hemoglobin 28 pg (28-32); Mean Corpuscular Volume 89 fl (79-97); Red Blood Count 3.01 M/mm3 (3.65-5.03); Red Cell Distribution Width 17.6 % (13.2-15.2)
[2017-06-17 08:29] LABS: Platelet Count 1017 K/mm3 (140-440)
[2017-06-17] MEDS: DUONEB *Not for PRN Use IH SCH ×3 (08:35→19:43)
[2017-06-17 08:36] LABS: Calcium 7.9 mg/dL (8.4-10.2)
[2017-06-17 09:50] LABS: Anisocytosis 1+; Band Neutrophils # (Manual) 1.6 K/mm3; Basophils % (Manual) 0 % (0.0-1.8); Eosinophils % (Manual) 0 % (0.0-4.3); Poikilocytosis 1+; Total Cells Counted 100
[2017-06-17 09:51] LABS: Large Platelets Few; Platelet Estimate Consistent w Auto
[2017-06-17] MEDS: LOVENOX SUB-Q SCH (09:58)
[2017-06-17] MEDS: MORPHINE IV PRN ×2 (09:59→13:52)
--- NOTE | 2017-06-17 11:37 | Progress Note ---
Assessment and Plan Impression * Acute renal failure. She most likely has a prerenal component. However do need to consider progression to ATN as well * Hyperkalemia secondary to acute kidney injury * Sepsis * Hypotension * Metabolic acidosis. Most likely secondary to lactic acidosis * Respiratory failure * Recent history of C. difficile colitis Recommendations * Patient's hyperkalemia has been corrected with medical therapy. * Renal function is improving. Fractional excretion of sodium is 0.6%. She most likely has a prerenal component. She is also currently nonoliguric . No indication for renal replacement therapy at this time * Acidosis improving with bicarbonate drip * She does have some pyuria as well as microhematuria. She is currently on broad-spectrum antibiotics * Avoid nephrotoxins * Monitor fluid status and electrolytes closely * Serum sodium noted to be on the high side. Encourage by mouth fluids. Shall plan to reduce her IV fluids when patient taking adequate fluids orally Subjective Date of service: 06/17/17 Principal diagnosis: Acute resp failure ,LUIS Interval history: Patient has been extubated. Awake and alert. Denies any nausea or vomiting. She just passed a swallow evaluation Objective - Vital Signs Vital signs: Vital Signs - 12hr 06/16/17 06/17/17 06/17/17 23:44 00:00 01:00 Temperature 97.7 F Pulse Rate 112 H 104 H 103 H Pulse Rate [ Anterior Bilateral Throughout] Respiratory 17 22 20 Rate Respiratory Rate [Anterior Bilateral Throughout] Blood Pressure 110/53 110/53 110/53 O2 Sat by Pulse 99 98 98 Oximetry 06/17/17 06/17/17 06/17/17 02:00 03:00 04:00 Temperature 97.9 F Pulse Rate 107 H 84 82 Pulse Rate [ Anterior Bilateral Throughout] Respiratory 21 21 17 Rate Respiratory Rate [Anterior Bilateral Throughout] Blood Pressure 122/69 110/66 115/62 O2 Sat by Pulse 99 100 100 Oximetry 06/17/17 06/17/17 06/17/17 05:00 06:00 07:00 Temperature Pulse Rate 82 98 H 101 H Pulse Rate [ Anterior Bilateral Throughout] Respiratory 22 21 15 Rate Respiratory Rate [Anterior Bilateral Throughout] Blood Pressure 119/63 128/73 119/78 O2 Sat by Pulse 99 99 98 Oximetry 06/17/17 06/17/17 06/17/17 08:33 08:37 08:40 Temperature Pulse Rate Pulse Rate [ 100 H 98 H Anterior Bilateral Throughout] Respiratory Rate Respiratory 20 18 Rate [Anterior Bilateral Throughout] Blood Pressure O2 Sat by Pulse 97 Oximetry 06/17/17 10:23 Temperature 99.0 F Pulse Rate Pulse Rate [ Anterior Bilateral Throughout] Respiratory Rate Respiratory Rate [Anterior Bilateral Throughout] Blood Pressure O2 Sat by Pulse Oximetry - General Appearance General appearance: chronically ill, frail EENT: PERRL, mucous membranes moist Neck: no JVD, no thyromegaly, no carotid bruit, supple Respiratory: Present: Clear to Ascultation Cardiology: regular, normal heart rate Gastrointestinal: normoactive bowel sounds, other (midline incision noted. Colostomy bag in place) Integumentary: other (1+ edema) - Lab 06/17/17 08:08 06/17/17 08:08 Most recent lab results Calcium 7.9 mg/dL (8.4-10.2) L 06/17/17 08:08 Urine Creatinine 101.8 mg/dL (0.1-20.0) H 06/13/17 14:00 Urine Sodium 26 mmol/L 06/13/17 14:00
--- NOTE | 2017-06-17 12:14 | Progress Note ---
Assessment and Plan Assessment and plan: Acute resp failure- Patient intubated. Cont vent support and Duonebs. Pulm following. Septic shock. Hypotension, resolved. Patient off pressors. IV vancomycin and Zosyn. leukocytosis , likely related to steroids. Patient is clinically improved. Hyperkalemia -resolved. Metabolic acidosis. Most likely secondary to lactic acidosis. Improved. C diff colitis was treated. Elevated Troponin -chronic ARF. Etiology likely secondary to LUIS vs. vasomotor nephropathy. Cont IV fluids. Avoid nephrotoxins COPD. Cont Neb treatments Oropharyngeal dysphagia. Resolved. DC DHT. Start pure diet Dvt /Gi prophylaxis Disposition. We will transfer to the floor. History Interval history: pt extubated and doing well. Hospitalist Physical - Constitutional Vitals: Temp Pulse Resp BP Pulse Ox 99.0 F 98 H 18 119/78 97 06/17/17 10:23 06/17/17 08:40 06/17/17 08:40 06/17/17 07:00 06/17/17 08:37 General appearance: Present: no acute distress, well-nourished - EENT Eyes: Present: PERRL, EOM intact ENT: hearing intact, clear oral mucosa, dentition normal - Neck Neck: Present: supple, normal ROM - Respiratory Respiratory effort: normal Respiratory: bilateral: CTA - Cardiovascular Rhythm: regular Heart Sounds: Present: S1 & S2. Absent: gallop, rub - Extremities Extremities: no ischemia, No edema, Full ROM - Abdominal General gastrointestinal: soft, non-tender, non-distended, normal bowel sounds - Integumentary Integumentary: Present: clear, warm, dry - Neurologic Neurologic: CNII-XII intact, moves all extremities Results - Labs CBC & Chem 7: 06/17/17 08:08 06/17/17 08:08 Labs: Laboratory Last Values WBC 22.9 K/mm3 (4.5-11.0) H 06/17/17 08:08 RBC 3.01 M/mm3 (3.65-5.03) L 06/17/17 08:08 Hgb 8.3 gm/dl (10.1-14.3) L 06/17/17 08:08 Hct 26.6 % (30.3-42.9) L 06/17/17 08:08 MCV 89 fl (79-97) 06/17/17 08:08 MCH 28 pg (28-32) 06/17/17 08:08 MCHC 31 % (30-34) 06/17/17 08:08 RDW 17.6 % (13.2-15.2) H 06/17/17 08:08 Plt Count 1017 K/mm3 (140-440) H* 06/17/17 08:08 Add Manual Diff Complete 06/17/17 08:08 Total Counted 100 06/17/17 08:08 Seg Neutrophils % Scada Operator 06/17/17 08:08 Seg Neuts % (Manual) 84.0 % (40.0-70.0) H 06/17/17 08:08 Band Neutrophils % 7.0 % 06/17/17 08:08 Lymphocytes % (Manual) 2.0 % (13.4-35.0) L 06/17/17 08:08 Reactive Lymphs % (Man) 0 % 06/17/17 08:08 Monocytes % (Manual) 7.0 % (0.0-7.3) 06/17/17 08:08 Eosinophils % (Manual) 0 % (0.0-4.3) 06/17/17 08:08 Basophils % (Manual) 0 % (0.0-1.8) 06/17/17 08:08 Metamyelocytes % 0 % 06/17/17 08:08 Myelocytes % 0 % 06/17/17 08:08 Promyelocytes % 0 % 06/17/17 08:08 Blast Cells % 0 % 06/17/17 08:08 Nucleated RBC % 5.0 % (0.0-0.9) H 06/17/17 08:08 Seg Neutrophils # Man 19.2 K/mm3 (1.8-7.7) H 06/17/17 08:08 Band Neutrophils # 1.6 K/mm3 06/17/17 08:08 Lymphocytes # (Manual) 0.5 K/mm3 (1.2-5.4) L 06/17/17 08:08 Abs React Lymphs (Man) 0.0 K/mm3 06/17/17 08:08 Monocytes # (Manual) 1.6 K/mm3 (0.0-0.8) H 06/17/17 08:08 Eosinophils # (Manual) 0.0 K/mm3 (0.0-0.4) 06/17/17 08:08 Basophils # (Manual) 0.0 K/mm3 (0.0-0.1) 06/17/17 08:08 Metamyelocytes # 0.0 K/mm3 06/17/17 08:08 Myelocytes # 0.0 K/mm3 06/17/17 08:08 Promyelocytes # 0.0 K/mm3 06/17/17 08:08 Blast Cells # 0.0 K/mm3 06/17/17 08:08 Pathologist Review 06/12/17 18:00 WBC Morphology Not Reportable 06/17/17 08:08 Hypersegmented Neuts Not Reportable 06/17/17 08:08 Hyposegmented Neuts Not Reportable 06/17/17 08:08 Hypogranular Neuts Not Reportable 06/17/17 08:08 Smudge Cells Not Reportable 06/17/17 08:08 Toxic Granulation Not Reportable 06/17/17 08:08 Toxic Vacuolation Not Reportable 06/17/17 08:08 Dohle Bodies Not Reportable 06/17/17 08:08 Pelger-Huet Anomaly Not Reportable 06/17/17 08:08 Neisha Rods Not Reportable 06/17/17 08:08 Platelet Estimate Consistent w auto 06/17/17 08:08 Clumped Platelets Not Reportable 06/17/17 08:08 Plt Clumps, EDTA Not Reportable 06/17/17 08:08 Large Platelets Few 06/17/17 08:08 Giant Platelets Not Reportable 06/17/17 08:08 Platelet Satelliting Not Reportable 06/17/17 08:08 Plt Morphology Comment Not Reportable 06/17/17 08:08 RBC Morphology Not Reportable 06/17/17 08:08 Dimorphic RBCs Not Reportable 06/17/17 08:08 Polychromasia Rare 06/17/17 08:08 Hypochromasia Not Reportable 06/17/17 08:08 Poikilocytosis 1+ 06/17/17 08:08 Anisocytosis 1+ 06/17/17 08:08 Microcytosis Not Reportable 06/17/17 08:08 Macrocytosis Not Reportable 06/17/17 08:08 Spherocytes Not Reportable 06/17/17 08:08 Pappenheimer Bodies Not Reportable 06/17/17 08:08 Sickle Cells Not Reportable 06/17/17 08:08 Target Cells Not Reportable 06/17/17 08:08 Tear Drop Cells Not Reportable 06/17/17 08:08 Ovalocytes Not Reportable 06/17/17 08:08 Helmet Cells Not Reportable 06/17/17 08:08 Frank[place] Bodies Not Reportable 06/17/17 08:08 Edison Rings Not Reportable 06/17/17 08:08 Damián Cells Not Reportable 06/17/17 08:08 Bite Cells Not Reportable 06/17/17 08:08 Crenated Cell Not Reportable 06/17/17 08:08 Elliptocytes Not Reportable 06/17/17 08:08 Acanthocytes (Spur) Not Reportable 06/17/17 08:08 Rouleaux Not Reportable 06/17/17 08:08 Hemoglobin C Crystals Not Reportable 06/17/17 08:08 Schistocytes Not Reportable 06/17/17 08:08 Malaria parasites Not Reportable 06/17/17 08:08 Herve Bodies Not Reportable 06/17/17 08:08 Hem Pathologist Commnt No 06/17/17 08:08 POC ABG pH 7.379 (7.35-7.45) 06/16/17 12:19 POC ABG pCO2 36.9 (35-45) 06/16/17 12:19 POC ABG pO2 66 (80-105) L 06/16/17 12:19 POC ABG HCO3 21.8 06/16/17 12:19 POC ABG Total CO2 23 06/16/17 12:19 POC ABG O2 Sat 92 06/16/17 12:19 POC ABG Base Excess -3 06/16/17 12:19 FiO2 25 % 06/16/17 12:19 Sodium 145 mmol/L (137-145) 06/17/17 08:08 Potassium 4.7 mmol/L (3.6-5.0) D 06/17/17 08:08 Chloride 108.3 mmol/L (98-107) H 06/17/17 08:08 Carbon Dioxide 22 mmol/L (22-30) 06/17/17 08:08 Anion Gap 19 mmol/L 06/17/17 08:08 BUN 35 mg/dL (7-17) H 06/17/17 08:08 Creatinine 1.3 mg/dL (0.7-1.2) H 06/17/17 08:08 Estimated GFR 50 ml/min 06/17/17 08:08 BUN/Creatinine Ratio 27 % 06/17/17 08:08 Glucose 149 mg/dL (65-100) H 06/17/17 08:08 POC Glucose 171 (70-105) H 06/17/17 06:01 Lactic Acid 2.90 mmol/L (0.7-2.0) H* 06/15/17 14:25 Calcium 7.9 mg/dL (8.4-10.2) L 06/17/17 08:08 Total Creatine Kinase 26 units/L (30-135) L 06/13/17 05:40 CK-MB (CK-2) 3.2 ng/mL (0.0-4.0) 06/13/17 05:40 CK-MB (CK-2) Rel Index 12.3 (0-4) H 06/13/17 05:40 Troponin T 0.047 ng/mL (0.00-0.029) H 06/13/17 05:40 Triglycerides 76 mg/dL (2-149) 06/12/17 17:44 Cholesterol 88 mg/dL (50-199) 06/12/17 17:44 LDL Cholesterol Direct 32 mg/dL (50-130) L 06/12/17 17:44 HDL Cholesterol 41 mg/dL (40-59) 06/12/17 17:44 Cholesterol/HDL Ratio 2.14 % 06/12/17 17:44 Urine Color Yellow (Yellow) 06/13/17 14:00 Urine Turbidity Cloudy (Clear) 06/13/17 14:00 Urine pH 5.0 (5.0-7.0) 06/13/17 14:00 Ur Specific [place] 1.017 (1.003-1.030) 06/13/17 14:00 Urine Protein 100 mg/dl mg/dL (Negative) 06/13/17 14:00 Urine Glucose (UA) Neg mg/dL (Negative) 06/13/17 14:00 Urine Ketones Neg mg/dL (Negative) 06/13/17 14:00 Urine Blood Lg (Negative) 06/13/17 14:00 Urine Nitrite Neg (Negative) 06/13/17 14:00 Urine Bilirubin Neg (Negative) 06/13/17 14:00 Urine Urobilinogen < 2.0 mg/dL (<2.0) 06/13/17 14:00 Ur Leukocyte Esterase Lg (Negative) 06/13/17 14:00 Urine WBC (Auto) > 182.0 /HPF (0.0-6.0) H 06/13/17 14:00 Urine RBC (Auto) 44.0 /HPF (0.0-6.0) 06/13/17 14:00 U Epithel Cells (Auto) 4.0 /HPF (0-13.0) 06/12/17 01:34 Urine Bacteria (Auto) 1+ /HPF (Negative) 06/13/17 14:00 Urine WBC Clumps 1+ /HPF 06/12/17 01:34 Urine Mucus Few /HPF 06/13/17 14:00 Urine Yeast (Budding) Few /HPF 06/13/17 14:00 Urine Eosinophils None seen (None Seen) 06/13/17 14:00 Urine Creatinine 101.8 mg/dL (0.1-20.0) H 06/13/17 14:00 Urine Sodium 26 mmol/L 06/13/17 14:00 Fraction Sodium Excret 0.6 06/13/17 14:00 Random Vancomycin 9.5 ug/mL (0-40.0) 06/14/17 03:02
[2017-06-17] MEDS: VANCOMYCIN 750 MG in NACL 0.9% 250ML 250 ML IV SCH (12:17)
--- NOTE | 2017-06-17 15:44 | Progress Note ---
Assessment and Plan Imp: 1. Centrilobular emphysema 2. COPD exac. 3. Hyponatremia 4. Thrombocytosis 5. LUIS 6. A/C respiratory failure, hypoxia and hypercapnea Rec: 1. Cont. Solumedrol 2. Duonebs; pulmicort/brovana 3. Diet advanced per ST 4. Consider heme consult 5. Try to mobilize 6. Okay for floor pulm-solorzano Plan of care reviewed with patient, she understands/agrees Subjective Date of service: 06/17/17 Principal diagnosis: Acute resp failure ,LUIS Interval history: No events. Awake, alert. on NC. SOB better. No chest pain. C/o leg pain (chronic ). No other complaints. Active Medications Acetaminophen (Tylenol) 650 mg PO Q4H PRN PRN Reason: Pain MILD(1-3)/Fever >100.5/KHOURY Albuterol/Ipratropium (Duoneb *Not For Prn Use*) 1 ampul IH TIDRT [facility] Last Admin: 06/17/17 08:35 Dose: 1 ampul Lipase/Protease/Amylase (Pancrefide Dr 10,500 Unit) 1 each FEEDTUBE PRN PRN PRN Reason: For Clogged Feeding Tube Dextrose (D50w (25gm) Syringe) 50 ml IV PRN PRN PRN Reason: Hypoglycemia Enoxaparin Sodium (Lovenox) 30 mg SUB-Q QDAY [facility] Last Admin: 06/17/17 09:58 Dose: 30 mg Hydrophilic Ointment (Vaseline Lip Therapy) 1 applic TP Q2H PRN PRN Reason: Dry Lips Last Admin: 06/14/17 10:34 Dose: 1 applic Norepinephrine (Levophed Drip 4 Mg/Ns 250 Ml) 4 mg in 250 mls @ 7.5 mls/hr IV TITR DUNG; 2 MCG/MIN PRN Reason: Protocol Last Titration: 06/14/17 15:05 Dose: 0 mcg/min, 0 mls/hr Sodium Bicarbonate 50 meq/ (Dextrose/Sodium Chloride) 1,050 mls @ 75 mls/hr IV DIRECT DUNG Last Admin: 06/16/17 18:29 Dose: 75 mls/hr Piperacillin Sod/Tazobactam Sod (Zosyn/Ns 2.25 Gm/50ml) 2.25 gm in 50 mls @ 100 mls/hr IV Q6HR [facility] PRN Reason: Protocol Last Admin: 06/17/17 12:17 Dose: 100 mls/hr Vancomycin HCl 750 mg/ Sodium (Chloride) 257.5 mls @ 166.667 mls/hr IV Q24H [facility] Last Admin: 06/17/17 12:17 Dose: 166.667 mls/hr Insulin Aspart (Novolog) 0 units SUB-Q Q6HR [facility] PRN Reason: Protocol Last Admin: 06/17/17 12:17 Dose: Not Given Methylprednisolone Sodium Succinate (Solu-Medrol) 40 mg IV Q6HR [facility] Last Admin: 06/17/17 12:16 Dose: 40 mg Morphine Sulfate (Morphine) 2 mg IV Q4H PRN PRN Reason: Pain, Moderate (4-6) Last Admin: 06/17/17 13:52 Dose: 2 mg Multi-Ingred Cream/Lotion/Oil/Oint (Artificial Tears Ophth Oint) 1 applic OU Q4H PRN PRN Reason: Dry Eye(s) Ondansetron HCl (Zofran) 4 mg IV Q8H PRN PRN Reason: N/V unrelieved by Pilar Last Admin: 06/14/17 04:18 Dose: 4 mg Simple Syrup (Simple Syrup) 15 ml FEEDTUBE PRN PRN PRN Reason: Hypoglycemia Simple Syrup (Simple Syrup) 30 ml FEEDTUBE PRN PRN PRN Reason: Hypoglycemia Sodium Bicarbonate (Sodium Bicarbonate) 325 mg FEEDTUBE PRN PRN PRN Reason: For Clogged Feeding Tube Vancomycin HCl (Vancomycin Pharmacy To Dose) 1 each IV PKCONSULT [facility] PRN Reason: Protocol Objective Vital Signs - 12hr 06/17/17 06/17/17 06/17/17 04:00 05:00 06:00 Temperature 97.9 F Pulse Rate 82 82 98 H Pulse Rate [ Anterior Bilateral Throughout] Respiratory 17 22 21 Rate Respiratory Rate [Anterior Bilateral Throughout] Blood Pressure 115/62 119/63 128/73 O2 Sat by Pulse 100 99 99 Oximetry 06/17/17 06/17/17 06/17/17 07:00 08:00 08:33 Temperature Pulse Rate 101 H 96 H Pulse Rate [ 100 H Anterior Bilateral Throughout] Respiratory 15 19 Rate Respiratory 20 Rate [Anterior Bilateral Throughout] Blood Pressure 119/78 119/78 O2 Sat by Pulse 98 97 Oximetry 06/17/17 06/17/17 06/17/17 08:37 08:40 09:00 Temperature Pulse Rate 104 H Pulse Rate [ 98 H Anterior Bilateral Throughout] Respiratory 15 Rate Respiratory 18 Rate [Anterior Bilateral Throughout] Blood Pressure 119/78 O2 Sat by Pulse 97 99 Oximetry 06/17/17 06/17/17 06/17/17 10:00 10:23 11:00 Temperature 99.0 F Pulse Rate 109 H 88 Pulse Rate [ Anterior Bilateral Throughout] Respiratory 18 22 Rate Respiratory Rate [Anterior Bilateral Throughout] Blood Pressure 119/78 119/66 O2 Sat by Pulse 99 98 Oximetry 06/17/17 06/17/17 06/17/17 12:00 12:58 13:00 Temperature 99.0 F 98.6 F Pulse Rate 99 H 115 H Pulse Rate [ Anterior Bilateral Throughout] Respiratory 14 14 Rate Respiratory Rate [Anterior Bilateral Throughout] Blood Pressure 113/72 125/77 O2 Sat by Pulse 98 98 Oximetry 06/17/17 06/17/17 14:00 15:14 Temperature 98.2 F Pulse Rate 97 H 107 H Pulse Rate [ 80 Anterior Bilateral Throughout] Respiratory 21 18 Rate Respiratory 16 Rate [Anterior Bilateral Throughout] Blood Pressure 125/78 127/78 O2 Sat by Pulse 98 100 Oximetry Constitutional: no acute distress, alert ENT: oropharynx moist Neck: supple, no lymphadenopathy Effort: normal Ascultation: Bilateral: diminished breath sounds Cardiovascular: regular rate and rhythm (no mrg) Gastrointestinal: normoactive bowel sounds, soft, non-tender Integumentary: normal Extremities: no cyanosis, edema (2+ bilateral pedal edema) Neurologic: normal mental status, non-focal exam, pupils equal and round, CN II- XII normal Psychiatric: mood appropriate, affect normal CBC and BMP: 06/17/17 08:08 06/17/17 08:08 ABG, PT/INR, D-dimer: ABG POC ABG pH 7.379 (7.35-7.45) 06/16/17 12:19 POC ABG pCO2 36.9 (35-45) 06/16/17 12:19 POC ABG pO2 66 (80-105) L 06/16/17 12:19 POC ABG HCO3 21.8 06/16/17 12:19 POC ABG Total CO2 23 06/16/17 12:19 POC ABG O2 Sat 92 06/16/17 12:19 Abnormal lab findings: Abnormal Labs 06/12/17 06/12/17 06/12/17 01:34 17:44 18:00 WBC 15.2 H RBC Hgb Hct RDW 16.9 H Plt Count 1256 H* Seg Neuts % (Manual) 85.0 H Lymphocytes % (Manual) 4.0 L Monocytes % (Manual) 8.0 H Basophils % (Manual) 2.0 H Nucleated RBC % Seg Neutrophils # Man 12.9 H Lymphocytes # (Manual) 0.6 L Monocytes # (Manual) 1.2 H Basophils # (Manual) 0.3 H POC ABG pH POC ABG pCO2 POC ABG pO2 Sodium 126 L Potassium 6.6 H* Chloride 91.7 L Carbon Dioxide 11 L BUN 70 H Creatinine 3.9 H Glucose POC Glucose Lactic Acid Calcium 8.3 L Total Creatine Kinase CK-MB (CK-2) Rel Index Troponin T 0.073 H LDL Cholesterol Direct 32 L Urine WBC (Auto) > 182.0 H Urine Creatinine 06/12/17 06/12/17 06/12/17 18:56 22:03 22:38 WBC RBC Hgb Hct RDW Plt Count Seg Neuts % (Manual) Lymphocytes % (Manual) Monocytes % (Manual) Basophils % (Manual) Nucleated RBC % Seg Neutrophils # Man Lymphocytes # (Manual) Monocytes # (Manual) Basophils # (Manual) POC ABG pH POC ABG pCO2 POC ABG pO2 Sodium 135 L D Potassium 5.1 H D Chloride 94.9 L Carbon Dioxide BUN 65 H Creatinine 3.3 H Glucose 178 H POC Glucose 108 H Lactic Acid Calcium 8.2 L Total Creatine Kinase 27 L CK-MB (CK-2) Rel Index 9.2 H Troponin T 0.057 H D LDL Cholesterol Direct Urine WBC (Auto) Urine Creatinine 06/13/17 06/13/17 06/13/17 01:08 05:40 05:40 WBC 15.7 H RBC 3.64 L Hgb Hct RDW 16.8 H Plt Count 1178 H* Seg Neuts % (Manual) 78.0 H Lymphocytes % (Manual) 4.0 L Monocytes % (Manual) 11.0 H Basophils % (Manual) Nucleated RBC % Seg Neutrophils # Man 12.2 H Lymphocytes # (Manual) 0.6 L Monocytes # (Manual) 1.7 H Basophils # (Manual) POC ABG pH POC ABG pCO2 POC ABG pO2 Sodium Potassium Chloride Carbon Dioxide BUN Creatinine Glucose POC Glucose 203 H Lactic Acid Calcium Total Creatine Kinase 26 L CK-MB (CK-2) Rel Index 12.3 H Troponin T 0.047 H LDL Cholesterol Direct Urine WBC (Auto) Urine Creatinine 06/13/17 06/13/17 06/13/17 05:40 06:34 10:00 WBC RBC Hgb Hct RDW Plt Count Seg Neuts % (Manual) Lymphocytes % (Manual) Monocytes % (Manual) Basophils % (Manual) Nucleated RBC % Seg Neutrophils # Man Lymphocytes # (Manual) Monocytes # (Manual) Basophils # (Manual) POC ABG pH 7.171 L 7.244 L POC ABG pCO2 75.4 H 49.5 H POC ABG pO2 148 H 154 H Sodium 134 L Potassium Chloride 92.9 L Carbon Dioxide BUN 59 H Creatinine 3.1 H Glucose 242 H POC Glucose Lactic Acid Calcium 7.6 L Total Creatine Kinase CK-MB (CK-2) Rel Index Troponin T LDL Cholesterol Direct Urine WBC (Auto) Urine Creatinine 06/13/17 06/13/17 06/13/17 14:00 14:00 18:30 WBC RBC Hgb Hct RDW Plt Count Seg Neuts % (Manual) Lymphocytes % (Manual) Monocytes % (Manual) Basophils % (Manual) Nucleated RBC % Seg Neutrophils # Man Lymphocytes # (Manual) Monocytes # (Manual) Basophils # (Manual) POC ABG pH POC ABG pCO2 POC ABG pO2 Sodium Potassium Chloride Carbon Dioxide BUN Creatinine 2.4 H Glucose POC Glucose Lactic Acid Calcium Total Creatine Kinase CK-MB (CK-2) Rel Index Troponin T LDL Cholesterol Direct Urine WBC (Auto) > 182.0 H Urine Creatinine 101.8 H 06/14/17 06/14/17 06/14/17 04:08 04:48 05:22 WBC RBC Hgb Hct RDW Plt Count Seg Neuts % (Manual) Lymphocytes % (Manual) Monocytes % (Manual) Basophils % (Manual) Nucleated RBC % Seg Neutrophils # Man Lymphocytes # (Manual) Monocytes # (Manual) Basophils # (Manual) POC ABG pH 7.247 L 7.310 L POC ABG pCO2 31.1 L POC ABG pO2 39 L Sodium Potassium Chloride Carbon Dioxide 16 L D BUN 46 H Creatinine 2.1 H Glucose 64 L POC Glucose Lactic Acid Calcium 6.7 L Total Creatine Kinase CK-MB (CK-2) Rel Index Troponin T LDL Cholesterol Direct Urine WBC (Auto) Urine Creatinine 06/14/17 06/14/17 06/14/17 06:53 17:26 18:42 WBC RBC Hgb Hct RDW Plt Count Seg Neuts % (Manual) Lymphocytes % (Manual) Monocytes % (Manual) Basophils % (Manual) Nucleated RBC % Seg Neutrophils # Man Lymphocytes # (Manual) Monocytes # (Manual) Basophils # (Manual) POC ABG pH 7.257 L POC ABG pCO2 POC ABG pO2 Sodium Potassium Chloride Carbon Dioxide BUN Creatinine Glucose POC Glucose 226 H 148 H Lactic Acid Calcium Total Creatine Kinase CK-MB (CK-2) Rel Index Troponin T LDL Cholesterol Direct Urine WBC (Auto) Urine Creatinine 06/14/17 06/15/17 06/15/17 23:29 04:02 05:00 WBC RBC Hgb Hct RDW Plt Count Seg Neuts % (Manual) Lymphocytes % (Manual) Monocytes % (Manual) Basophils % (Manual) Nucleated RBC % Seg Neutrophils # Man Lymphocytes # (Manual) Monocytes # (Manual) Basophils # (Manual) POC ABG pH 7.275 L POC ABG pCO2 POC ABG pO2 130 H Sodium Potassium Chloride 108.8 H Carbon Dioxide 18 L BUN 36 H Creatinine 1.5 H Glucose 265 H POC Glucose 255 H Lactic Acid Calcium 7.1 L Total Creatine Kinase CK-MB (CK-2) Rel Index Troponin T LDL Cholesterol Direct Urine WBC (Auto) Urine Creatinine 06/15/17 06/15/17 06/15/17 05:08 10:54 11:56 WBC RBC Hgb Hct RDW Plt Count Seg Neuts % (Manual) Lymphocytes % (Manual) Monocytes % (Manual) Basophils % (Manual) Nucleated RBC % Seg Neutrophils # Man Lymphocytes # (Manual) Monocytes # (Manual) Basophils # (Manual) POC ABG pH 7.265 L POC ABG pCO2 POC ABG pO2 72 L Sodium Potassium Chloride Carbon Dioxide BUN Creatinine Glucose POC Glucose 257 H 240 H Lactic Acid Calcium Total Creatine Kinase CK-MB (CK-2) Rel Index Troponin T LDL Cholesterol Direct Urine WBC (Auto) Urine Creatinine 06/15/17 06/15/17 06/16/17 14:25 17:45 00:07 WBC RBC Hgb Hct RDW Plt Count Seg Neuts % (Manual) Lymphocytes % (Manual) Monocytes % (Manual) Basophils % (Manual) Nucleated RBC % Seg Neutrophils # Man Lymphocytes # (Manual) Monocytes # (Manual) Basophils # (Manual) POC ABG pH POC ABG pCO2 POC ABG pO2 Sodium Potassium Chloride Carbon Dioxide BUN Creatinine Glucose POC Glucose 109 H 167 H Lactic Acid 2.90 H* Calcium Total Creatine Kinase CK-MB (CK-2) Rel Index Troponin T LDL Cholesterol Direct Urine WBC (Auto) Urine Creatinine 06/16/17 06/16/17 06/16/17 04:00 04:03 05:00 WBC 20.2 H RBC 2.99 L Hgb 8.5 L Hct 25.9 L D RDW 17.5 H Plt Count 1030 H* Seg Neuts % (Manual) 92.0 H Lymphocytes % (Manual) 1.0 L Monocytes % (Manual) Basophils % (Manual) Nucleated RBC % 2.0 H Seg Neutrophils # Man 18.6 H Lymphocytes # (Manual) 0.2 L Monocytes # (Manual) 1.0 H Basophils # (Manual) POC ABG pH POC ABG pCO2 30.8 L POC ABG pO2 Sodium 146 H Potassium 3.4 L Chloride 109.1 H Carbon Dioxide 20 L BUN 33 H Creatinine 1.4 H Glucose 108 H POC Glucose Lactic Acid Calcium 7.4 L Total Creatine Kinase CK-MB (CK-2) Rel Index Troponin T LDL Cholesterol Direct Urine WBC (Auto) Urine Creatinine 06/16/17 06/16/17 06/16/17 11:48 12:10 12:19 WBC RBC Hgb Hct RDW Plt Count Seg Neuts % (Manual) Lymphocytes % (Manual) Monocytes % (Manual) Basophils % (Manual) Nucleated RBC % Seg Neutrophils # Man Lymphocytes # (Manual) Monocytes # (Manual) Basophils # (Manual) POC ABG pH POC ABG pCO2 POC ABG pO2 59 L 66 L Sodium Potassium Chloride Carbon Dioxide BUN Creatinine Glucose POC Glucose 134 H Lactic Acid Calcium Total Creatine Kinase CK-MB (CK-2) Rel Index Troponin T LDL Cholesterol Direct Urine WBC (Auto) Urine Creatinine 06/16/17 06/16/17 06/17/17 18:17 23:52 06:01 WBC RBC Hgb Hct RDW Plt Count Seg Neuts % (Manual) Lymphocytes % (Manual) Monocytes % (Manual) Basophils % (Manual) Nucleated RBC % Seg Neutrophils # Man Lymphocytes # (Manual) Monocytes # (Manual) Basophils # (Manual) POC ABG pH POC ABG pCO2 POC ABG pO2 Sodium Potassium Chloride Carbon Dioxide BUN Creatinine Glucose POC Glucose 157 H 171 H 171 H Lactic Acid Calcium Total Creatine Kinase CK-MB (CK-2) Rel Index Troponin T LDL Cholesterol Direct Urine WBC (Auto) Urine Creatinine 06/17/17 06/17/17 06/17/17 08:08 08:08 12:05 WBC 22.9 H RBC 3.01 L Hgb 8.3 L Hct 26.6 L RDW 17.6 H Plt Count 1017 H* Seg Neuts % (Manual) 84.0 H Lymphocytes % (Manual) 2.0 L Monocytes % (Manual) Basophils % (Manual) Nucleated RBC % 5.0 H Seg Neutrophils # Man 19.2 H Lymphocytes # (Manual) 0.5 L Monocytes # (Manual) 1.6 H Basophils # (Manual) POC ABG pH POC ABG pCO2 POC ABG pO2 Sodium Potassium Chloride 108.3 H Carbon Dioxide BUN 35 H Creatinine 1.3 H Glucose 149 H POC Glucose 122 H Lactic Acid Calcium 7.9 L Total Creatine Kinase CK-MB (CK-2) Rel Index Troponin T LDL Cholesterol Direct Urine WBC (Auto) Urine Creatinine Chest x-ray: report reviewed, image reviewed
[2017-06-17 17:26] LABS: Amorphous Crystals,Urine Few; Bilirubin,Urine NEG (Negative); Blood,Urine NEG (Negative); Color,Urine Yellow (Yellow); Nitrite,Urine NEG (Negative); Urobilinogen,Urine < 2.0 mg/dL (<2.0)
[2017-06-17] MEDS: BROVANA NEBU IH SCH (19:35)
[2017-06-17] MEDS: PULMICORT IH SCH (19:35)
[2017-06-18] MEDS: ZOSYN/NS 2.25 GM/50ML 2.25 GM/50 ML BAG IV SCH ×4 (00:40→18:41)
[2017-06-18] MEDS: NOVOLOG SUB-Q SCH ×4 (00:41→18:40)
[2017-06-18] MEDS: MORPHINE IV PRN ×2 (02:33→18:41)
[2017-06-18 05:24] LABS: Hematocrit 26.3 % (30.3-42.9); Hemoglobin 8.3 gm/dl (10.1-14.3); Mean Corpuscular HGB Conc 32 % (30-34); Mean Corpuscular Hemoglobin 28 pg (28-32); Mean Corpuscular Volume 89 fl (79-97); Platelet Count 888 K/mm3 (140-440); Red Blood Count 2.97 M/mm3 (3.65-5.03); Red Cell Distribution Width 17.9 % (13.2-15.2)
[2017-06-18 05:48] LABS: Calcium 7.9 mg/dL (8.4-10.2)
[2017-06-18 08:51] LABS: Anisocytosis 1+; Band Neutrophils # (Manual) 0.8 K/mm3; Basophils % (Manual) 0 % (0.0-1.8); Eosinophils % (Manual) 0 % (0.0-4.3); Total Cells Counted 100
[2017-06-18 08:52] LABS: Hypochromasia 1+; Poikilocytosis Few; Target Cells Few
--- NOTE | 2017-06-18 09:53 | Progress Note ---
Assessment and Plan Assessment and plan: Acute resp failure. Cont O2; supportive care Sepsis, resolving. Hyperkalemia -resolved. Hypernatremia. Encourage by mouth fluid intake. Metabolic acidosis. Most likely secondary to lactic acidosis. Improved. C diff colitis was treated. Elevated Troponin -chronic ARF. Etiology likely secondary to LUIS vs. vasomotor nephropathy. Cont IV fluids. Avoid nephrotoxins COPD. Cont Neb treatments, continue systemic steroids. Oropharyngeal dysphagia. Continue pured diet. Deconditioning. PT/OT. Dvt /Gi prophylaxis Leukocytosis. Etiology likely secondary to steroids. History Interval history: pt extubated and doing well. Hospitalist Physical - Constitutional Vitals: Temp Pulse Resp BP Pulse Ox 99.2 F 93 H 16 119/70 99 06/18/17 07:53 06/18/17 07:53 06/18/17 07:53 06/18/17 07:53 06/18/17 07:53 General appearance: Present: no acute distress, well-nourished - EENT Eyes: Present: PERRL, EOM intact ENT: hearing intact, clear oral mucosa, dentition normal - Neck Neck: Present: supple, normal ROM - Respiratory Respiratory effort: normal Respiratory: bilateral: CTA - Cardiovascular Rhythm: regular Heart Sounds: Present: S1 & S2. Absent: gallop, rub - Extremities Extremities: no ischemia, No edema, Full ROM - Abdominal General gastrointestinal: soft, non-tender, non-distended, normal bowel sounds - Integumentary Integumentary: Present: clear, warm, dry - Neurologic Neurologic: CNII-XII intact, moves all extremities Results - Labs CBC & Chem 7: 06/18/17 04:34 06/18/17 04:34 Labs: Laboratory Last Values WBC 19.6 K/mm3 (4.5-11.0) H 06/18/17 04:34 RBC 2.97 M/mm3 (3.65-5.03) L 06/18/17 04:34 Hgb 8.3 gm/dl (10.1-14.3) L 06/18/17 04:34 Hct 26.3 % (30.3-42.9) L 06/18/17 04:34 MCV 89 fl (79-97) 06/18/17 04:34 MCH 28 pg (28-32) 06/18/17 04:34 MCHC 32 % (30-34) 06/18/17 04:34 RDW 17.9 % (13.2-15.2) H 06/18/17 04:34 Plt Count 888 K/mm3 (140-440) H 06/18/17 04:34 Add Manual Diff Complete 06/18/17 04:34 Total Counted 100 06/18/17 04:34 Seg Neutrophils % Cookie [employer]er Helper 06/18/17 04:34 Seg Neuts % (Manual) 90.0 % (40.0-70.0) H 06/18/17 04:34 Band Neutrophils % 4.0 % 06/18/17 04:34 Lymphocytes % (Manual) 3.0 % (13.4-35.0) L 06/18/17 04:34 Reactive Lymphs % (Man) 0 % 06/18/17 04:34 Monocytes % (Manual) 3.0 % (0.0-7.3) 06/18/17 04:34 Eosinophils % (Manual) 0 % (0.0-4.3) 06/18/17 04:34 Basophils % (Manual) 0 % (0.0-1.8) 06/18/17 04:34 Metamyelocytes % 0 % 06/18/17 04:34 Myelocytes % 0 % 06/18/17 04:34 Promyelocytes % 0 % 06/18/17 04:34 Blast Cells % 0 % 06/18/17 04:34 Nucleated RBC % 5.0 % (0.0-0.9) H 06/18/17 04:34 Seg Neutrophils # Man 17.6 K/mm3 (1.8-7.7) H 06/18/17 04:34 Band Neutrophils # 0.8 K/mm3 06/18/17 04:34 Lymphocytes # (Manual) 0.6 K/mm3 (1.2-5.4) L 06/18/17 04:34 Abs React Lymphs (Man) 0.0 K/mm3 06/18/17 04:34 Monocytes # (Manual) 0.6 K/mm3 (0.0-0.8) 06/18/17 04:34 Eosinophils # (Manual) 0.0 K/mm3 (0.0-0.4) 06/18/17 04:34 Basophils # (Manual) 0.0 K/mm3 (0.0-0.1) 06/18/17 04:34 Metamyelocytes # 0.0 K/mm3 06/18/17 04:34 Myelocytes # 0.0 K/mm3 06/18/17 04:34 Promyelocytes # 0.0 K/mm3 06/18/17 04:34 Blast Cells # 0.0 K/mm3 06/18/17 04:34 Pathologist Review 06/12/17 18:00 WBC Morphology Not Reportable 06/18/17 04:34 Hypersegmented Neuts Not Reportable 06/18/17 04:34 Hyposegmented Neuts Not Reportable 06/18/17 04:34 Hypogranular Neuts Not Reportable 06/18/17 04:34 Smudge Cells Not Reportable 06/18/17 04:34 Toxic Granulation Not Reportable 06/18/17 04:34 Toxic Vacuolation Not Reportable 06/18/17 04:34 Dohle Bodies Not Reportable 06/18/17 04:34 Pelger-Huet Anomaly Not Reportable 06/18/17 04:34 Neisha Rods Not Reportable 06/18/17 04:34 Platelet Estimate Not Reportable 06/18/17 04:34 Clumped Platelets Not Reportable 06/18/17 04:34 Plt Clumps, EDTA Not Reportable 06/18/17 04:34 Large Platelets Not Reportable 06/18/17 04:34 Giant Platelets Not Reportable 06/18/17 04:34 Platelet Satelliting Not Reportable 06/18/17 04:34 Plt Morphology Comment Not Reportable 06/18/17 04:34 RBC Morphology Not Reportable 06/18/17 04:34 Dimorphic RBCs Not Reportable 06/18/17 04:34 Polychromasia Rare 06/18/17 04:34 Hypochromasia 1+ 06/18/17 04:34 Poikilocytosis Few 06/18/17 04:34 Anisocytosis 1+ 06/18/17 04:34 Microcytosis Not Reportable 06/18/17 04:34 Macrocytosis Not Reportable 06/18/17 04:34 Spherocytes Not Reportable 06/18/17 04:34 Pappenheimer Bodies Not Reportable 06/18/17 04:34 Sickle Cells Not Reportable 06/18/17 04:34 Target Cells Few 06/18/17 04:34 Tear Drop Cells Not Reportable 06/18/17 04:34 Ovalocytes Not Reportable 06/18/17 04:34 Helmet Cells Not Reportable 06/18/17 04:34 [place] Bodies Not Reportable 06/18/17 04:34 [place] Rings Not Reportable 06/18/17 04:34 Orange Cells Not Reportable 06/18/17 04:34 Bite Cells Not Reportable 06/18/17 04:34 Crenated Cell Not Reportable 06/18/17 04:34 Elliptocytes Not Reportable 06/18/17 04:34 Acanthocytes (Spur) Not Reportable 06/18/17 04:34 Rouleaux Not Reportable 06/18/17 04:34 Hemoglobin C Crystals Not Reportable 06/18/17 04:34 Schistocytes Not Reportable 06/18/17 04:34 Malaria parasites Not Reportable 06/18/17 04:34 Herve Bodies Not Reportable 06/18/17 04:34 Hem Pathologist Commnt No 06/18/17 04:34 POC ABG pH 7.379 (7.35-7.45) 06/16/17 12:19 POC ABG pCO2 36.9 (35-45) 06/16/17 12:19 POC ABG pO2 66 (80-105) L 06/16/17 12:19 POC ABG HCO3 21.8 06/16/17 12:19 POC ABG Total CO2 23 06/16/17 12:19 POC ABG O2 Sat 92 06/16/17 12:19 POC ABG Base Excess -3 06/16/17 12:19 FiO2 25 % 06/16/17 12:19 Sodium 150 mmol/L (137-145) H 06/18/17 04:34 Potassium 3.8 mmol/L (3.6-5.0) 06/18/17 04:34 Chloride 113.2 mmol/L (98-107) H 06/18/17 04:34 Carbon Dioxide 24 mmol/L (22-30) 06/18/17 04:34 Anion Gap 17 mmol/L 06/18/17 04:34 BUN 36 mg/dL (7-17) H 06/18/17 04:34 Creatinine 1.4 mg/dL (0.7-1.2) H 06/18/17 04:34 Estimated GFR 46 ml/min 06/18/17 04:34 BUN/Creatinine Ratio 26 % 06/18/17 04:34 Glucose 92 mg/dL (65-100) 06/18/17 04:34 POC Glucose 107 (70-105) H 06/18/17 05:01 Lactic Acid 2.90 mmol/L (0.7-2.0) H* 06/15/17 14:25 Calcium 7.9 mg/dL (8.4-10.2) L 06/18/17 04:34 Total Creatine Kinase 26 units/L (30-135) L 06/13/17 05:40 CK-MB (CK-2) 3.2 ng/mL (0.0-4.0) 06/13/17 05:40 CK-MB (CK-2) Rel Index 12.3 (0-4) H 06/13/17 05:40 Troponin T 0.047 ng/mL (0.00-0.029) H 06/13/17 05:40 Triglycerides 76 mg/dL (2-149) 06/12/17 17:44 Cholesterol 88 mg/dL (50-199) 06/12/17 17:44 LDL Cholesterol Direct 32 mg/dL (50-130) L 06/12/17 17:44 HDL Cholesterol 41 mg/dL (40-59) 06/12/17 17:44 Cholesterol/HDL Ratio 2.14 % 06/12/17 17:44 Urine Color Yellow (Yellow) 06/17/17 14:10 Urine Turbidity Slightly-cloudy (Clear) 06/17/17 14:10 Urine pH 6.0 (5.0-7.0) 06/17/17 14:10 Ur Specific [place] 1.017 (1.003-1.030) 06/17/17 14:10 Urine Protein 30 mg/dl mg/dL (Negative) 06/17/17 14:10 Urine Glucose (UA) Neg mg/dL (Negative) 06/17/17 14:10 Urine Ketones Neg mg/dL (Negative) 06/17/17 14:10 Urine Blood Neg (Negative) 06/17/17 14:10 Urine Nitrite Neg (Negative) 06/17/17 14:10 Urine Bilirubin Neg (Negative) 06/17/17 14:10 Urine Urobilinogen < 2.0 mg/dL (<2.0) 06/17/17 14:10 Ur Leukocyte Esterase Lg (Negative) 06/17/17 14:10 Urine WBC (Auto) 74.0 /HPF (0.0-6.0) H 06/17/17 14:10 Urine RBC (Auto) 11.0 /HPF (0.0-6.0) 06/17/17 14:10 U Epithel Cells (Auto) 4.0 /HPF (0-13.0) 06/12/17 01:34 Urine Bacteria (Auto) 1+ /HPF (Negative) 06/13/17 14:00 Urine WBC Clumps 1+ /HPF 06/12/17 01:34 Amorphous Crystals Few 06/17/17 14:10 Urine Mucus Few /HPF 06/13/17 14:00 Urine Yeast (Budding) 3+ /HPF 06/17/17 14:10 Urine Eosinophils None seen (None Seen) 06/13/17 14:00 Urine Creatinine 101.8 mg/dL (0.1-20.0) H 06/13/17 14:00 Urine Sodium 26 mmol/L 06/13/17 14:00 Fraction Sodium Excret 0.6 06/13/17 14:00 Random Vancomycin 9.5 ug/mL (0-40.0) 06/14/17 03:02
--- NOTE | 2017-06-18 10:03 | Progress Note ---
Assessment and Plan Impression * Nonoliguric LUIS secondary to prerenal azotemia vs ATN related to sepsis -- Fractional excretion of sodium is 0.6% * Hypernatremia * Hyperkalemia- resolved * Sepsis * Hypotension * Metabolic acidosis - improved * Respiratory failure * Recent history of C. difficile colitis * Recommendations * Renal function is stable * Abx per prmary team * Continue IVF - change bicarb to 1/2 NS. Encourage po hydration * Avoid potential nephrotoxins Subjective Date of service: 06/18/17 Principal diagnosis: Acute resp failure ,LUIS Interval history: Patient has no complaint today Objective - Vital Signs Vital signs: Vital Signs - 12hr 06/18/17 07:53 Temperature 99.2 F Pulse Rate 93 H Respiratory 16 Rate Blood Pressure 119/70 O2 Sat by Pulse 99 Oximetry - General Appearance General appearance: well-developed, well-nourished, frail EENT: ATNC Respiratory: Present: Clear to Ascultation Cardiology: regular, S1S2 Gastrointestinal: no tenderness, no distended Integumentary: no rash Musculoskeletal: other (trace edema) Psychiatric: cooperative - Lab 06/18/17 04:34 06/18/17 04:34 Most recent lab results Calcium 7.9 mg/dL (8.4-10.2) L 06/18/17 04:34 Urine Creatinine 101.8 mg/dL (0.1-20.0) H 06/13/17 14:00 Urine Sodium 26 mmol/L 06/13/17 14:00
[2017-06-18] MEDS: PULMICORT IH SCH ×2 (10:32→19:28)
[2017-06-18] MEDS: BROVANA NEBU IH SCH ×2 (10:32→19:28)
[2017-06-18] MEDS: DUONEB *Not for PRN Use IH SCH ×3 (10:33→19:36)
[2017-06-18] MEDS: LOVENOX SUB-Q SCH (10:57)
--- NOTE | 2017-06-18 13:45 | Progress Note ---
Assessment and Plan Imp: 1. Centrilobular emphysema 2. COPD exac. 3. Hyponatremia 4. Thrombocytosis 5. LUIS 6. A/C respiratory failure, hypoxia and hypercapnea Rec: 1. Cont. Solumedrol -> reduce dose 2. Duonebs; pulmicort/brovana 3. Diet advanced per ST 4. Consider heme consult if platelets fail to fully improve 5. Try to mobilize -> PT 6. IVFs per renal; patient encouraged to drink free water Plan of care reviewed with patient, she understands/agrees Subjective Date of service: 06/18/17 Principal diagnosis: Acute resp failure ,LUIS Interval history: No events. Awake, alert. on NC. SOB better. No chest pain. C/o leg pain (chronic ). C/o LE edema. Active Medications Acetaminophen (Tylenol) 650 mg PO Q4H PRN PRN Reason: Pain MILD(1-3)/Fever >100.5/KHOURY Albuterol/Ipratropium (Duoneb *Not For Prn Use*) 1 ampul IH TIDRT [facility] Last Admin: 06/18/17 10:33 Dose: Not Given Lipase/Protease/Amylase (Rohan Pearce 10,500 Unit) 1 each FEEDTUBE PRN PRN PRN Reason: For Clogged Feeding Tube Arformoterol Tartrate (Brovana Nebu) 15 mcg IH Q12HRT [facility] Last Admin: 06/18/17 10:32 Dose: 15 mcg Budesonide (Pulmicort) 0.5 mg IH Q12HRT [facility] Last Admin: 06/18/17 10:32 Dose: 0.5 mg Dextrose (D50w (25gm) Syringe) 50 ml IV PRN PRN PRN Reason: Hypoglycemia Enoxaparin Sodium (Lovenox) 30 mg SUB-Q QDAY [facility] Last Admin: 06/18/17 10:57 Dose: 30 mg Hydrophilic Ointment (Vaseline Lip Therapy) 1 applic TP Q2H PRN PRN Reason: Dry Lips Last Admin: 06/14/17 10:34 Dose: 1 applic Piperacillin Sod/Tazobactam Sod (Zosyn/Ns 2.25 Gm/50ml) 2.25 gm in 50 mls @ 100 mls/hr IV Q6HR [facility] PRN Reason: Protocol Last Admin: 06/18/17 06:52 Dose: 100 mls/hr Vancomycin HCl 750 mg/ Sodium (Chloride) 257.5 mls @ 166.667 mls/hr IV Q24H [facility] Last Admin: 06/17/17 12:17 Dose: 166.667 mls/hr Sodium Chloride (Nacl 0.45% 1000 Ml) 1,000 mls @ 75 mls/hr IV DIRECT [facility] Insulin Aspart (Novolog) 0 units SUB-Q Q6HR [facility] PRN Reason: Protocol Last Admin: 06/18/17 06:53 Dose: Not Given Methylprednisolone Sodium Succinate (Solu-Medrol) 20 mg IV Q8HR [facility] Morphine Sulfate (Morphine) 2 mg IV Q4H PRN PRN Reason: Pain, Moderate (4-6) Last Admin: 06/18/17 02:33 Dose: 2 mg Multi-Ingred Cream/Lotion/Oil/Oint (Artificial Tears Ophth Oint) 1 applic OU Q4H PRN PRN Reason: Dry Eye(s) Ondansetron HCl (Zofran) 4 mg IV Q8H PRN PRN Reason: N/V unrelieved by Pilar Last Admin: 06/14/17 04:18 Dose: 4 mg Simple Syrup (Simple Syrup) 15 ml FEEDTUBE PRN PRN PRN Reason: Hypoglycemia Simple Syrup (Simple Syrup) 30 ml FEEDTUBE PRN PRN PRN Reason: Hypoglycemia Sodium Bicarbonate (Sodium Bicarbonate) 325 mg FEEDTUBE PRN PRN PRN Reason: For Clogged Feeding Tube Vancomycin HCl (Vancomycin Pharmacy To Dose) 1 each IV PKCONSULT [facility] PRN Reason: Protocol Objective Vital Signs - 12hr 06/18/17 06/18/17 06/18/17 07:53 10:27 10:42 Temperature 99.2 F Pulse Rate 93 H Pulse Rate [ 105 H 105 H Anterior Bilateral Throughout] Respiratory 16 Rate Respiratory 22 24 Rate [Anterior Bilateral Throughout] Blood Pressure 119/70 O2 Sat by Pulse 99 100 Oximetry Constitutional: no acute distress, alert ENT: oropharynx moist Neck: supple, no lymphadenopathy Effort: normal Ascultation: Bilateral: diminished breath sounds Cardiovascular: regular rate and rhythm (no mrg) Gastrointestinal: normoactive bowel sounds, soft, non-tender Integumentary: normal Extremities: no cyanosis, edema (2+ bilateral pedal edema) Neurologic: normal mental status, non-focal exam, pupils equal and round, CN II- XII normal Psychiatric: mood appropriate, affect normal CBC and BMP: 06/18/17 04:34 06/18/17 04:34 ABG, PT/INR, D-dimer: ABG POC ABG pH 7.379 (7.35-7.45) 06/16/17 12:19 POC ABG pCO2 36.9 (35-45) 06/16/17 12:19 POC ABG pO2 66 (80-105) L 06/16/17 12:19 POC ABG HCO3 21.8 06/16/17 12:19 POC ABG Total CO2 23 06/16/17 12:19 POC ABG O2 Sat 92 06/16/17 12:19 Abnormal lab findings: Abnormal Labs 06/12/17 06/12/17 06/12/17 01:34 17:44 18:00 WBC 15.2 H RBC Hgb Hct RDW 16.9 H Plt Count 1256 H* Seg Neuts % (Manual) 85.0 H Lymphocytes % (Manual) 4.0 L Monocytes % (Manual) 8.0 H Basophils % (Manual) 2.0 H Nucleated RBC % Seg Neutrophils # Man 12.9 H Lymphocytes # (Manual) 0.6 L Monocytes # (Manual) 1.2 H Basophils # (Manual) 0.3 H POC ABG pH POC ABG pCO2 POC ABG pO2 Sodium 126 L Potassium 6.6 H* Chloride 91.7 L Carbon Dioxide 11 L BUN 70 H Creatinine 3.9 H Glucose POC Glucose Lactic Acid Calcium 8.3 L Total Creatine Kinase CK-MB (CK-2) Rel Index Troponin T 0.073 H LDL Cholesterol Direct 32 L Urine WBC (Auto) > 182.0 H Urine Creatinine 06/12/17 06/12/17 06/12/17 18:56 22:03 22:38 WBC RBC Hgb Hct RDW Plt Count Seg Neuts % (Manual) Lymphocytes % (Manual) Monocytes % (Manual) Basophils % (Manual) Nucleated RBC % Seg Neutrophils # Man Lymphocytes # (Manual) Monocytes # (Manual) Basophils # (Manual) POC ABG pH POC ABG pCO2 POC ABG pO2 Sodium 135 L D Potassium 5.1 H D Chloride 94.9 L Carbon Dioxide BUN 65 H Creatinine 3.3 H Glucose 178 H POC Glucose 108 H Lactic Acid Calcium 8.2 L Total Creatine Kinase 27 L CK-MB (CK-2) Rel Index 9.2 H Troponin T 0.057 H D LDL Cholesterol Direct Urine WBC (Auto) Urine Creatinine 06/13/17 06/13/17 06/13/17 01:08 05:40 05:40 WBC 15.7 H RBC 3.64 L Hgb Hct RDW 16.8 H Plt Count 1178 H* Seg Neuts % (Manual) 78.0 H Lymphocytes % (Manual) 4.0 L Monocytes % (Manual) 11.0 H Basophils % (Manual) Nucleated RBC % Seg Neutrophils # Man 12.2 H Lymphocytes # (Manual) 0.6 L Monocytes # (Manual) 1.7 H Basophils # (Manual) POC ABG pH POC ABG pCO2 POC ABG pO2 Sodium Potassium Chloride Carbon Dioxide BUN Creatinine Glucose POC Glucose 203 H Lactic Acid Calcium Total Creatine Kinase 26 L CK-MB (CK-2) Rel Index 12.3 H Troponin T 0.047 H LDL Cholesterol Direct Urine WBC (Auto) Urine Creatinine 06/13/17 06/13/17 06/13/17 05:40 06:34 10:00 WBC RBC Hgb Hct RDW Plt Count Seg Neuts % (Manual) Lymphocytes % (Manual) Monocytes % (Manual) Basophils % (Manual) Nucleated RBC % Seg Neutrophils # Man Lymphocytes # (Manual) Monocytes # (Manual) Basophils # (Manual) POC ABG pH 7.171 L 7.244 L POC ABG pCO2 75.4 H 49.5 H POC ABG pO2 148 H 154 H Sodium 134 L Potassium Chloride 92.9 L Carbon Dioxide BUN 59 H Creatinine 3.1 H Glucose 242 H POC Glucose Lactic Acid Calcium 7.6 L Total Creatine Kinase CK-MB (CK-2) Rel Index Troponin T LDL Cholesterol Direct Urine WBC (Auto) Urine Creatinine 06/13/17 06/13/17 06/13/17 14:00 14:00 18:30 WBC RBC Hgb Hct RDW Plt Count Seg Neuts % (Manual) Lymphocytes % (Manual) Monocytes % (Manual) Basophils % (Manual) Nucleated RBC % Seg Neutrophils # Man Lymphocytes # (Manual) Monocytes # (Manual) Basophils # (Manual) POC ABG pH POC ABG pCO2 POC ABG pO2 Sodium Potassium Chloride Carbon Dioxide BUN Creatinine 2.4 H Glucose POC Glucose Lactic Acid Calcium Total Creatine Kinase CK-MB (CK-2) Rel Index Troponin T LDL Cholesterol Direct Urine WBC (Auto) > 182.0 H Urine Creatinine 101.8 H 06/14/17 06/14/17 06/14/17 04:08 04:48 05:22 WBC RBC Hgb Hct RDW Plt Count Seg Neuts % (Manual) Lymphocytes % (Manual) Monocytes % (Manual) Basophils % (Manual) Nucleated RBC % Seg Neutrophils # Man Lymphocytes # (Manual) Monocytes # (Manual) Basophils # (Manual) POC ABG pH 7.247 L 7.310 L POC ABG pCO2 31.1 L POC ABG pO2 39 L Sodium Potassium Chloride Carbon Dioxide 16 L D BUN 46 H Creatinine 2.1 H Glucose 64 L POC Glucose Lactic Acid Calcium 6.7 L Total Creatine Kinase CK-MB (CK-2) Rel Index Troponin T LDL Cholesterol Direct Urine WBC (Auto) Urine Creatinine 06/14/17 06/14/17 06/14/17 06:53 17:26 18:42 WBC RBC Hgb Hct RDW Plt Count Seg Neuts % (Manual) Lymphocytes % (Manual) Monocytes % (Manual) Basophils % (Manual) Nucleated RBC % Seg Neutrophils # Man Lymphocytes # (Manual) Monocytes # (Manual) Basophils # (Manual) POC ABG pH 7.257 L POC ABG pCO2 POC ABG pO2 Sodium Potassium Chloride Carbon Dioxide BUN Creatinine Glucose POC Glucose 226 H 148 H Lactic Acid Calcium Total Creatine Kinase CK-MB (CK-2) Rel Index Troponin T LDL Cholesterol Direct Urine WBC (Auto) Urine Creatinine 06/14/17 06/15/17 06/15/17 23:29 04:02 05:00 WBC RBC Hgb Hct RDW Plt Count Seg Neuts % (Manual) Lymphocytes % (Manual) Monocytes % (Manual) Basophils % (Manual) Nucleated RBC % Seg Neutrophils # Man Lymphocytes # (Manual) Monocytes # (Manual) Basophils # (Manual) POC ABG pH 7.275 L POC ABG pCO2 POC ABG pO2 130 H Sodium Potassium Chloride 108.8 H Carbon Dioxide 18 L BUN 36 H Creatinine 1.5 H Glucose 265 H POC Glucose 255 H Lactic Acid Calcium 7.1 L Total Creatine Kinase CK-MB (CK-2) Rel Index Troponin T LDL Cholesterol Direct Urine WBC (Auto) Urine Creatinine 06/15/17 06/15/17 06/15/17 05:08 10:54 11:56 WBC RBC Hgb Hct RDW Plt Count Seg Neuts % (Manual) Lymphocytes % (Manual) Monocytes % (Manual) Basophils % (Manual) Nucleated RBC % Seg Neutrophils # Man Lymphocytes # (Manual) Monocytes # (Manual) Basophils # (Manual) POC ABG pH 7.265 L POC ABG pCO2 POC ABG pO2 72 L Sodium Potassium Chloride Carbon Dioxide BUN Creatinine Glucose POC Glucose 257 H 240 H Lactic Acid Calcium Total Creatine Kinase CK-MB (CK-2) Rel Index Troponin T LDL Cholesterol Direct Urine WBC (Auto) Urine Creatinine 06/15/17 06/15/17 06/16/17 14:25 17:45 00:07 WBC RBC Hgb Hct RDW Plt Count Seg Neuts % (Manual) Lymphocytes % (Manual) Monocytes % (Manual) Basophils % (Manual) Nucleated RBC % Seg Neutrophils # Man Lymphocytes # (Manual) Monocytes # (Manual) Basophils # (Manual) POC ABG pH POC ABG pCO2 POC ABG pO2 Sodium Potassium Chloride Carbon Dioxide BUN Creatinine Glucose POC Glucose 109 H 167 H Lactic Acid 2.90 H* Calcium Total Creatine Kinase CK-MB (CK-2) Rel Index Troponin T LDL Cholesterol Direct Urine WBC (Auto) Urine Creatinine 06/16/17 06/16/17 06/16/17 04:00 04:03 05:00 WBC 20.2 H RBC 2.99 L Hgb 8.5 L Hct 25.9 L D RDW 17.5 H Plt Count 1030 H* Seg Neuts % (Manual) 92.0 H Lymphocytes % (Manual) 1.0 L Monocytes % (Manual) Basophils % (Manual) Nucleated RBC % 2.0 H Seg Neutrophils # Man 18.6 H Lymphocytes # (Manual) 0.2 L Monocytes # (Manual) 1.0 H Basophils # (Manual) POC ABG pH POC ABG pCO2 30.8 L POC ABG pO2 Sodium 146 H Potassium 3.4 L Chloride 109.1 H Carbon Dioxide 20 L BUN 33 H Creatinine 1.4 H Glucose 108 H POC Glucose Lactic Acid Calcium 7.4 L Total Creatine Kinase CK-MB (CK-2) Rel Index Troponin T LDL Cholesterol Direct Urine WBC (Auto) Urine Creatinine 06/16/17 06/16/17 06/16/17 11:48 12:10 12:19 WBC RBC Hgb Hct RDW Plt Count Seg Neuts % (Manual) Lymphocytes % (Manual) Monocytes % (Manual) Basophils % (Manual) Nucleated RBC % Seg Neutrophils # Man Lymphocytes # (Manual) Monocytes # (Manual) Basophils # (Manual) POC ABG pH POC ABG pCO2 POC ABG pO2 59 L 66 L Sodium Potassium Chloride Carbon Dioxide BUN Creatinine Glucose POC Glucose 134 H Lactic Acid Calcium Total Creatine Kinase CK-MB (CK-2) Rel Index Troponin T LDL Cholesterol Direct Urine WBC (Auto) Urine Creatinine 06/16/17 06/16/17 06/17/17 18:17 23:52 06:01 WBC RBC Hgb Hct RDW Plt Count Seg Neuts % (Manual) Lymphocytes % (Manual) Monocytes % (Manual) Basophils % (Manual) Nucleated RBC % Seg Neutrophils # Man Lymphocytes # (Manual) Monocytes # (Manual) Basophils # (Manual) POC ABG pH POC ABG pCO2 POC ABG pO2 Sodium Potassium Chloride Carbon Dioxide BUN Creatinine Glucose POC Glucose 157 H 171 H 171 H Lactic Acid Calcium Total Creatine Kinase CK-MB (CK-2) Rel Index Troponin T LDL Cholesterol Direct Urine WBC (Auto) Urine Creatinine 06/17/17 06/17/17 06/17/17 08:08 08:08 12:05 WBC 22.9 H RBC 3.01 L Hgb 8.3 L Hct 26.6 L RDW 17.6 H Plt Count 1017 H* Seg Neuts % (Manual) 84.0 H Lymphocytes % (Manual) 2.0 L Monocytes % (Manual) Basophils % (Manual) Nucleated RBC % 5.0 H Seg Neutrophils # Man 19.2 H Lymphocytes # (Manual) 0.5 L Monocytes # (Manual) 1.6 H Basophils # (Manual) POC ABG pH POC ABG pCO2 POC ABG pO2 Sodium Potassium Chloride 108.3 H Carbon Dioxide BUN 35 H Creatinine 1.3 H Glucose 149 H POC Glucose 122 H Lactic Acid Calcium 7.9 L Total Creatine Kinase CK-MB (CK-2) Rel Index Troponin T LDL Cholesterol Direct Urine WBC (Auto) Urine Creatinine 06/17/17 06/17/17 06/17/17 14:10 18:11 22:50 WBC RBC Hgb Hct RDW Plt Count Seg Neuts % (Manual) Lymphocytes % (Manual) Monocytes % (Manual) Basophils % (Manual) Nucleated RBC % Seg Neutrophils # Man Lymphocytes # (Manual) Monocytes # (Manual) Basophils # (Manual) POC ABG pH POC ABG pCO2 POC ABG pO2 Sodium Potassium Chloride Carbon Dioxide BUN Creatinine Glucose POC Glucose 130 H 151 H Lactic Acid Calcium Total Creatine Kinase CK-MB (CK-2) Rel Index Troponin T LDL Cholesterol Direct Urine WBC (Auto) 74.0 H Urine Creatinine 06/18/17 06/18/17 06/18/17 04:34 04:34 05:01 WBC 19.6 H RBC 2.97 L Hgb 8.3 L Hct 26.3 L RDW 17.9 H Plt Count 888 H Seg Neuts % (Manual) 90.0 H Lymphocytes % (Manual) 3.0 L Monocytes % (Manual) Basophils % (Manual) Nucleated RBC % 5.0 H Seg Neutrophils # Man 17.6 H Lymphocytes # (Manual) 0.6 L Monocytes # (Manual) Basophils # (Manual) POC ABG pH POC ABG pCO2 POC ABG pO2 Sodium 150 H Potassium Chloride 113.2 H Carbon Dioxide BUN 36 H Creatinine 1.4 H Glucose POC Glucose 107 H Lactic Acid Calcium 7.9 L Total Creatine Kinase CK-MB (CK-2) Rel Index Troponin T LDL Cholesterol Direct Urine WBC (Auto) Urine Creatinine Chest x-ray: report reviewed, image reviewed
[2017-06-18] MEDS: NACL 0.45% 1000 ML 1,000 ML IV SCH (14:24)
[2017-06-18] MEDS: VANCOMYCIN 750 MG in NACL 0.9% 250ML 250 ML IV SCH (18:39)
[2017-06-19] MEDS: ZOSYN/NS 2.25 GM/50ML 2.25 GM/50 ML BAG IV SCH ×5 (00:45→23:47)
[2017-06-19] MEDS: NOVOLOG SUB-Q SCH ×5 (00:58→23:57)
[2017-06-19] MEDS: MORPHINE IV PRN ×3 (02:24→20:46)
[2017-06-19] MEDS: NACL 0.45% 1000 ML 1,000 ML IV SCH ×2 (06:29→20:47)
[2017-06-19 06:46] LABS: Hematocrit 30.1 % (30.3-42.9); Mean Corpuscular HGB Conc 30 % (30-34); Mean Corpuscular Hemoglobin 27 pg (28-32); Mean Corpuscular Volume 91 fl (79-97); Platelet Count 894 K/mm3 (140-440); Red Blood Count 3.31 M/mm3 (3.65-5.03); Red Cell Distribution Width 17.7 % (13.2-15.2)
[2017-06-19] MEDS: BROVANA NEBU IH SCH ×3 (07:27→21:34)
[2017-06-19] MEDS: PULMICORT IH SCH ×3 (07:27→21:34)
[2017-06-19] MEDS: DUONEB *Not for PRN Use IH SCH ×4 (07:27→21:35)
[2017-06-19 08:55] LABS: Total Cells Counted 100
[2017-06-19 08:56] LABS: Anisocytosis 1+; Band Neutrophils # (Manual) 1.4 K/mm3; Basophils % (Manual) 0 % (0.0-1.8); Eosinophils % (Manual) 0 % (0.0-4.3); Hypochromasia 1+
[2017-06-19 08:57] LABS: Poikilocytosis Few; Target Cells Few
--- NOTE | 2017-06-19 09:24 | Progress Note ---
Assessment and Plan Impression * Nonoliguric LUIS secondary to prerenal azotemia vs ATN related to sepsis -- Fractional excretion of sodium is 0.6% * Hypernatremia * Hyperkalemia- resolved * Sepsis * Hypotension * Metabolic acidosis - improved * Respiratory failure * Recent history of C. difficile colitis * Recommendations * Renal function is stable * Abx per prmary team * Continue IVF - 1/2 NS. * Encourage po hydration * Avoid potential nephrotoxins * Will see prn Subjective Date of service: 06/19/17 Principal diagnosis: Acute resp failure ,LUIS Interval history: No complaints today Objective - Vital Signs Vital signs: Vital Signs - 12hr 06/19/17 06/19/17 06/19/17 00:25 04:29 07:27 Temperature 97.6 F 97.4 F L Pulse Rate 95 H 96 H Pulse Rate [ 96 H Anterior Bilateral Throughout] Respiratory 19 19 Rate Respiratory 18 Rate [Anterior Bilateral Throughout] Blood Pressure 125/78 116/73 O2 Sat by Pulse 100 100 Oximetry 06/19/17 06/19/17 06/19/17 07:32 07:33 07:59 Temperature 97.3 F L Pulse Rate 95 H Pulse Rate [ 96 H Anterior Bilateral Throughout] Respiratory 16 Rate Respiratory 18 Rate [Anterior Bilateral Throughout] Blood Pressure 107/63 O2 Sat by Pulse 100 100 Oximetry - General Appearance General appearance: well-developed EENT: ATNC Neck: no JVD Respiratory: Present: Clear to Ascultation Cardiology: regular, S1S2 Gastrointestinal: normoactive bowel sounds, no tenderness, no distended Integumentary: no rash, warm and dry Psychiatric: cooperative - Lab 06/20/17 Unknown 06/20/17 Unknown Most recent lab results Calcium 8.0 mg/dL (8.4-10.2) L 06/19/17 05:56 Urine Creatinine 101.8 mg/dL (0.1-20.0) H 06/13/17 14:00 Urine Sodium 26 mmol/L 06/13/17 14:00
[2017-06-19] MEDS: LOVENOX SUB-Q SCH (10:20)
[2017-06-19] MEDS: VANCOMYCIN VIAL 500 MG in NACL 0.9% 100 ML IV SCH (11:30)
--- NOTE | 2017-06-19 11:51 | Progress Note ---
Assessment and Plan Assessment and plan: Acute resp failure. Cont O2; supportive care Sepsis, resolving. Hypernatremia. Improved. Encourage by mouth fluid intake. Metabolic acidosis. Most likely secondary to lactic acidosis. Improved. C diff colitis was treated. Elevated Troponin -chronic ARF. Etiology likely secondary to LUIS vs. vasomotor nephropathy. Cont IV fluids. Avoid nephrotoxins COPD. Cont Neb treatments, continue systemic steroids. Oropharyngeal dysphagia. Continue diet per speech recommendations. Deconditioning. PT/OT. Dvt /Gi prophylaxis Leukocytosis. Etiology likely secondary to steroids. History Interval history: No new issues overnight. Hospitalist Physical - Constitutional Vitals: Temp Pulse Resp BP Pulse Ox 97.3 F L 96 H 18 107/63 100 06/19/17 07:33 06/19/17 07:59 06/19/17 07:59 06/19/17 07:33 06/19/17 07:33 General appearance: Present: no acute distress, well-nourished - EENT Eyes: Present: PERRL, EOM intact ENT: hearing intact, clear oral mucosa, dentition normal - Neck Neck: Present: supple, normal ROM - Respiratory Respiratory effort: normal Respiratory: bilateral: CTA - Cardiovascular Rhythm: regular Heart Sounds: Present: S1 & S2. Absent: gallop, rub - Extremities Extremities: no ischemia, No edema, Full ROM - Abdominal General gastrointestinal: soft, non-tender, non-distended, normal bowel sounds - Integumentary Integumentary: Present: clear, warm, dry - Neurologic Neurologic: CNII-XII intact, moves all extremities Results - Labs CBC & Chem 7: 06/19/17 05:56 06/19/17 05:56 Labs: Laboratory Last Values WBC 20.4 K/mm3 (4.5-11.0) H 06/19/17 05:56 RBC 3.31 M/mm3 (3.65-5.03) L 06/19/17 05:56 Hgb 9.0 gm/dl (10.1-14.3) L 06/19/17 05:56 Hct 30.1 % (30.3-42.9) L 06/19/17 05:56 MCV 91 fl (79-97) 06/19/17 05:56 MCH 27 pg (28-32) L 06/19/17 05:56 MCHC 30 % (30-34) 06/19/17 05:56 RDW 17.7 % (13.2-15.2) H 06/19/17 05:56 Plt Count 894 K/mm3 (140-440) H 06/19/17 05:56 Add Manual Diff Complete 06/19/17 05:56 Total Counted 100 06/19/17 05:56 Seg Neutrophils % Bench Boring Machine Operator 06/18/17 04:34 Seg Neuts % (Manual) 81.0 % (40.0-70.0) H 06/19/17 05:56 Band Neutrophils % 7.0 % 06/19/17 05:56 Lymphocytes % (Manual) 5.0 % (13.4-35.0) L 06/19/17 05:56 Reactive Lymphs % (Man) 0 % 06/19/17 05:56 Monocytes % (Manual) 6.0 % (0.0-7.3) 06/19/17 05:56 Eosinophils % (Manual) 0 % (0.0-4.3) 06/19/17 05:56 Basophils % (Manual) 0 % (0.0-1.8) 06/19/17 05:56 Metamyelocytes % 1.0 % 06/19/17 05:56 Myelocytes % 0 % 06/19/17 05:56 Promyelocytes % 0 % 06/19/17 05:56 Blast Cells % 0 % 06/19/17 05:56 Nucleated RBC % Not Reportable 06/19/17 05:56 Seg Neutrophils # Man 16.5 K/mm3 (1.8-7.7) H 06/19/17 05:56 Band Neutrophils # 1.4 K/mm3 06/19/17 05:56 Lymphocytes # (Manual) 1.0 K/mm3 (1.2-5.4) L 06/19/17 05:56 Abs React Lymphs (Man) 0.0 K/mm3 06/19/17 05:56 Monocytes # (Manual) 1.2 K/mm3 (0.0-0.8) H 06/19/17 05:56 Eosinophils # (Manual) 0.0 K/mm3 (0.0-0.4) 06/19/17 05:56 Basophils # (Manual) 0.0 K/mm3 (0.0-0.1) 06/19/17 05:56 Metamyelocytes # 0.2 K/mm3 06/19/17 05:56 Myelocytes # 0.0 K/mm3 06/19/17 05:56 Promyelocytes # 0.0 K/mm3 06/19/17 05:56 Blast Cells # 0.0 K/mm3 06/19/17 05:56 Pathologist Review 06/12/17 18:00 WBC Morphology Not Reportable 06/19/17 05:56 Hypersegmented Neuts Not Reportable 06/19/17 05:56 Hyposegmented Neuts Not Reportable 06/19/17 05:56 Hypogranular Neuts Not Reportable 06/19/17 05:56 Smudge Cells Not Reportable 06/19/17 05:56 Toxic Granulation Not Reportable 06/19/17 05:56 Toxic Vacuolation Not Reportable 06/19/17 05:56 Dohle Bodies Not Reportable 06/19/17 05:56 Pelger-Huet Anomaly Not Reportable 06/19/17 05:56 Neisha Rods Not Reportable 06/19/17 05:56 Platelet Estimate Not Reportable 06/19/17 05:56 Clumped Platelets Not Reportable 06/19/17 05:56 Plt Clumps, EDTA Not Reportable 06/19/17 05:56 Large Platelets Not Reportable 06/19/17 05:56 Giant Platelets Not Reportable 06/19/17 05:56 Platelet Satelliting Not Reportable 06/19/17 05:56 Plt Morphology Comment Not Reportable 06/19/17 05:56 RBC Morphology Not Reportable 06/19/17 05:56 Dimorphic RBCs Not Reportable 06/19/17 05:56 Polychromasia Not Reportable 06/19/17 05:56 Hypochromasia 1+ 06/19/17 05:56 Poikilocytosis Few 06/19/17 05:56 Anisocytosis 1+ 06/19/17 05:56 Microcytosis Not Reportable 06/19/17 05:56 Macrocytosis Not Reportable 06/19/17 05:56 Spherocytes Not Reportable 06/19/17 05:56 Pappenheimer Bodies Not Reportable 06/19/17 05:56 Sickle Cells Not Reportable 06/19/17 05:56 Target Cells Few 06/19/17 05:56 Tear Drop Cells Not Reportable 06/19/17 05:56 Ovalocytes Not Reportable 06/19/17 05:56 Helmet Cells Not Reportable 06/19/17 05:56 [place] Bodies Not Reportable 06/19/17 05:56 [place] Rings Not Reportable 06/19/17 05:56 Damián Cells Not Reportable 06/19/17 05:56 Bite Cells Not Reportable 06/19/17 05:56 Crenated Cell Not Reportable 06/19/17 05:56 Elliptocytes Not Reportable 06/19/17 05:56 Acanthocytes (Spur) Not Reportable 06/19/17 05:56 Rouleaux Not Reportable 06/19/17 05:56 Hemoglobin C Crystals Not Reportable 06/19/17 05:56 Schistocytes Not Reportable 06/19/17 05:56 Malaria parasites Not Reportable 06/19/17 05:56 Herve Bodies Not Reportable 06/19/17 05:56 Hem Pathologist Commnt No 06/19/17 05:56 POC ABG pH 7.379 (7.35-7.45) 06/16/17 12:19 POC ABG pCO2 36.9 (35-45) 06/16/17 12:19 POC ABG pO2 66 (80-105) L 06/16/17 12:19 POC ABG HCO3 21.8 06/16/17 12:19 POC ABG Total CO2 23 06/16/17 12:19 POC ABG O2 Sat 92 06/16/17 12:19 POC ABG Base Excess -3 06/16/17 12:19 FiO2 25 % 06/16/17 12:19 Sodium 147 mmol/L (137-145) H 06/19/17 05:56 Potassium 4.0 mmol/L (3.6-5.0) 06/19/17 05:56 Chloride 110.7 mmol/L (98-107) H 06/19/17 05:56 Carbon Dioxide 24 mmol/L (22-30) 06/19/17 05:56 Anion Gap 16 mmol/L 06/19/17 05:56 BUN 32 mg/dL (7-17) H 06/19/17 05:56 Creatinine 1.2 mg/dL (0.7-1.2) 06/19/17 05:56 Estimated GFR 55 ml/min 06/19/17 05:56 BUN/Creatinine Ratio 27 % 06/19/17 05:56 Glucose 113 mg/dL (65-100) H 06/19/17 05:56 POC Glucose 111 (70-105) H 06/19/17 05:34 Lactic Acid 2.90 mmol/L (0.7-2.0) H* 06/15/17 14:25 Calcium 8.0 mg/dL (8.4-10.2) L 06/19/17 05:56 Total Creatine Kinase 26 units/L (30-135) L 06/13/17 05:40 CK-MB (CK-2) 3.2 ng/mL (0.0-4.0) 06/13/17 05:40 CK-MB (CK-2) Rel Index 12.3 (0-4) H 06/13/17 05:40 Troponin T 0.047 ng/mL (0.00-0.029) H 06/13/17 05:40 Triglycerides 76 mg/dL (2-149) 06/12/17 17:44 Cholesterol 88 mg/dL (50-199) 06/12/17 17:44 LDL Cholesterol Direct 32 mg/dL (50-130) L 06/12/17 17:44 HDL Cholesterol 41 mg/dL (40-59) 06/12/17 17:44 Cholesterol/HDL Ratio 2.14 % 06/12/17 17:44 Urine Color Yellow (Yellow) 06/17/17 14:10 Urine Turbidity Slightly-cloudy (Clear) 06/17/17 14:10 Urine pH 6.0 (5.0-7.0) 06/17/17 14:10 Ur Specific [place] 1.017 (1.003-1.030) 06/17/17 14:10 Urine Protein 30 mg/dl mg/dL (Negative) 06/17/17 14:10 Urine Glucose (UA) Neg mg/dL (Negative) 06/17/17 14:10 Urine Ketones Neg mg/dL (Negative) 06/17/17 14:10 Urine Blood Neg (Negative) 06/17/17 14:10 Urine Nitrite Neg (Negative) 06/17/17 14:10 Urine Bilirubin Neg (Negative) 06/17/17 14:10 Urine Urobilinogen < 2.0 mg/dL (<2.0) 06/17/17 14:10 Ur Leukocyte Esterase Lg (Negative) 06/17/17 14:10 Urine WBC (Auto) 74.0 /HPF (0.0-6.0) H 06/17/17 14:10 Urine RBC (Auto) 11.0 /HPF (0.0-6.0) 06/17/17 14:10 U Epithel Cells (Auto) 4.0 /HPF (0-13.0) 06/12/17 01:34 Urine Bacteria (Auto) 1+ /HPF (Negative) 06/13/17 14:00 Urine WBC Clumps 1+ /HPF 06/12/17 01:34 Amorphous Crystals Few 06/17/17 14:10 Urine Mucus Few /HPF 06/13/17 14:00 Urine Yeast (Budding) 3+ /HPF 06/17/17 14:10 Urine Eosinophils None seen (None Seen) 06/13/17 14:00 Urine Creatinine 101.8 mg/dL (0.1-20.0) H 06/13/17 14:00 Urine Sodium 26 mmol/L 06/13/17 14:00 Fraction Sodium Excret 0.6 06/13/17 14:00 Vancomycin Trough 23.5 ug/mL (5.0-20.0) H 06/18/17 Unknown Random Vancomycin 9.5 ug/mL (0-40.0) 06/14/17 03:02
--- NOTE | 2017-06-19 14:44 | Progress Note ---
Assessment and Plan Imp: 1. Centrilobular emphysema 2. COPD exac. 3. Hyponatremia 4. Thrombocytosis 5. LUIS 6. A/C respiratory failure, hypoxia and hypercapnea 7. Leukocytosis, likely steroid-related Rec: 1. Change to Prednisone in AM; monitor WBCs 2. Duonebs; pulmicort/brovana 3. Diet advanced per ST 4. Consider heme consult if platelets fail to fully improve 5. Try to mobilize -> PT 6. IVFs per renal; patient encouraged to drink free water Plan of care reviewed with patient, she understands/agrees Subjective Date of service: 06/19/17 Principal diagnosis: Acute resp failure ,LUIS Interval history: No events. Awake, alert. on NC. SOB better. No chest pain. C/o leg pain (chronic ). C/o LE edema. Active Medications Acetaminophen (Tylenol) 650 mg PO Q4H PRN PRN Reason: Pain MILD(1-3)/Fever >100.5/KHOURY Albuterol/Ipratropium (Duoneb *Not For Prn Use*) 1 ampul IH TIDRT [facility] Last Admin: 06/19/17 13:38 Dose: 1 ampul Lipase/Protease/Amylase (Pancrefide Pearce 10,500 Unit) 1 each FEEDTUBE PRN PRN PRN Reason: For Clogged Feeding Tube Arformoterol Tartrate (Brovana Nebu) 15 mcg IH Q12HRT [facility] Last Admin: 06/19/17 07:27 Dose: 15 mcg Budesonide (Pulmicort) 0.5 mg IH Q12HRT [facility] Last Admin: 06/19/17 07:27 Dose: 0.5 mg Dextrose (D50w (25gm) Syringe) 50 ml IV PRN PRN PRN Reason: Hypoglycemia Enoxaparin Sodium (Lovenox) 30 mg SUB-Q QDAY [facility] Last Admin: 06/19/17 10:20 Dose: 30 mg Hydrophilic Ointment (Vaseline Lip Therapy) 1 applic TP Q2H PRN PRN Reason: Dry Lips Last Admin: 06/14/17 10:34 Dose: 1 applic Piperacillin Sod/Tazobactam Sod (Zosyn/Ns 2.25 Gm/50ml) 2.25 gm in 50 mls @ 100 mls/hr IV Q6HR DUNG PRN Reason: Protocol Last Admin: 06/19/17 11:29 Dose: 100 mls/hr Sodium Chloride (Nacl 0.45% 1000 Ml) 1,000 mls @ 75 mls/hr IV DIRECT [facility] Last Admin: 06/19/17 06:29 Dose: 75 mls/hr Vancomycin HCl 500 mg/ Sodium (Chloride) 100 mls @ 66.667 mls/hr IV Q24H [facility] Last Admin: 06/19/17 11:30 Dose: 66.667 mls/hr Insulin Aspart (Novolog) 0 units SUB-Q Q6HR DUNG PRN Reason: Protocol Last Admin: 06/19/17 11:56 Dose: 2 units Morphine Sulfate (Morphine) 2 mg IV Q4H PRN PRN Reason: Pain, Moderate (4-6) Last Admin: 06/19/17 07:03 Dose: 2 mg Multi-Ingred Cream/Lotion/Oil/Oint (Artificial Tears Ophth Oint) 1 applic OU Q4H PRN PRN Reason: Dry Eye(s) Ondansetron HCl (Zofran) 4 mg IV Q8H PRN PRN Reason: N/V unrelieved by Pilar Last Admin: 06/14/17 04:18 Dose: 4 mg Prednisone (Deltasone) 40 mg PO QDAY DUNG Simple Syrup (Simple Syrup) 15 ml FEEDTUBE PRN PRN PRN Reason: Hypoglycemia Simple Syrup (Simple Syrup) 30 ml FEEDTUBE PRN PRN PRN Reason: Hypoglycemia Sodium Bicarbonate (Sodium Bicarbonate) 325 mg FEEDTUBE PRN PRN PRN Reason: For Clogged Feeding Tube Vancomycin HCl (Vancomycin Pharmacy To Dose) 1 each IV PKCONSULT DUNG PRN Reason: Protocol Objective Vital Signs - 12hr 06/19/17 06/19/17 06/19/17 04:29 07:27 07:32 Temperature 97.4 F L Pulse Rate 96 H Pulse Rate [ 96 H Anterior Bilateral Throughout] Respiratory 19 Rate Respiratory 18 Rate [Anterior Bilateral Throughout] Blood Pressure 116/73 O2 Sat by Pulse 100 100 Oximetry 06/19/17 06/19/17 06/19/17 07:33 07:59 11:10 Temperature 97.3 F L 97.9 F Pulse Rate 95 H 97 H Pulse Rate [ 96 H Anterior Bilateral Throughout] Respiratory 16 16 Rate Respiratory 18 Rate [Anterior Bilateral Throughout] Blood Pressure 107/63 111/63 O2 Sat by Pulse 100 100 Oximetry 06/19/17 06/19/17 13:38 13:55 Temperature Pulse Rate Pulse Rate [ 96 H 97 H Anterior Bilateral Throughout] Respiratory Rate Respiratory 18 18 Rate [Anterior Bilateral Throughout] Blood Pressure O2 Sat by Pulse Oximetry Constitutional: no acute distress, alert ENT: oropharynx moist Neck: supple, no lymphadenopathy Effort: normal Ascultation: Bilateral: diminished breath sounds Cardiovascular: regular rate and rhythm (no mrg) Gastrointestinal: normoactive bowel sounds, soft, non-tender Integumentary: normal Extremities: no cyanosis, edema (2+ bilateral pedal edema) Neurologic: normal mental status, non-focal exam, pupils equal and round, CN II- XII normal Psychiatric: mood appropriate, affect normal CBC and BMP: 06/19/17 05:56 06/19/17 05:56 ABG, PT/INR, D-dimer: ABG POC ABG pH 7.379 (7.35-7.45) 06/16/17 12:19 POC ABG pCO2 36.9 (35-45) 06/16/17 12:19 POC ABG pO2 66 (80-105) L 06/16/17 12:19 POC ABG HCO3 21.8 06/16/17 12:19 POC ABG Total CO2 23 06/16/17 12:19 POC ABG O2 Sat 92 06/16/17 12:19 Abnormal lab findings: Abnormal Labs 06/12/17 06/12/17 06/12/17 01:34 17:44 18:00 WBC 15.2 H RBC Hgb Hct MCH RDW 16.9 H Plt Count 1256 H* Seg Neuts % (Manual) 85.0 H Lymphocytes % (Manual) 4.0 L Monocytes % (Manual) 8.0 H Basophils % (Manual) 2.0 H Nucleated RBC % Seg Neutrophils # Man 12.9 H Lymphocytes # (Manual) 0.6 L Monocytes # (Manual) 1.2 H Basophils # (Manual) 0.3 H POC ABG pH POC ABG pCO2 POC ABG pO2 Sodium 126 L Potassium 6.6 H* Chloride 91.7 L Carbon Dioxide 11 L BUN 70 H Creatinine 3.9 H Glucose POC Glucose Lactic Acid Calcium 8.3 L Total Creatine Kinase CK-MB (CK-2) Rel Index Troponin T 0.073 H LDL Cholesterol Direct 32 L Urine WBC (Auto) > 182.0 H Urine Creatinine Vancomycin Trough 06/12/17 06/12/17 06/12/17 18:56 22:03 22:38 WBC RBC Hgb Hct MCH RDW Plt Count Seg Neuts % (Manual) Lymphocytes % (Manual) Monocytes % (Manual) Basophils % (Manual) Nucleated RBC % Seg Neutrophils # Man Lymphocytes # (Manual) Monocytes # (Manual) Basophils # (Manual) POC ABG pH POC ABG pCO2 POC ABG pO2 Sodium 135 L D Potassium 5.1 H D Chloride 94.9 L Carbon Dioxide BUN 65 H Creatinine 3.3 H Glucose 178 H POC Glucose 108 H Lactic Acid Calcium 8.2 L Total Creatine Kinase 27 L CK-MB (CK-2) Rel Index 9.2 H Troponin T 0.057 H D LDL Cholesterol Direct Urine WBC (Auto) Urine Creatinine Vancomycin Trough 06/13/17 06/13/17 06/13/17 01:08 05:40 05:40 WBC 15.7 H RBC 3.64 L Hgb Hct MCH RDW 16.8 H Plt Count 1178 H* Seg Neuts % (Manual) 78.0 H Lymphocytes % (Manual) 4.0 L Monocytes % (Manual) 11.0 H Basophils % (Manual) Nucleated RBC % Seg Neutrophils # Man 12.2 H Lymphocytes # (Manual) 0.6 L Monocytes # (Manual) 1.7 H Basophils # (Manual) POC ABG pH POC ABG pCO2 POC ABG pO2 Sodium Potassium Chloride Carbon Dioxide BUN Creatinine Glucose POC Glucose 203 H Lactic Acid Calcium Total Creatine Kinase 26 L CK-MB (CK-2) Rel Index 12.3 H Troponin T 0.047 H LDL Cholesterol Direct Urine WBC (Auto) Urine Creatinine Vancomycin Trough 06/13/17 06/13/17 06/13/17 05:40 06:34 10:00 WBC RBC Hgb Hct MCH RDW Plt Count Seg Neuts % (Manual) Lymphocytes % (Manual) Monocytes % (Manual) Basophils % (Manual) Nucleated RBC % Seg Neutrophils # Man Lymphocytes # (Manual) Monocytes # (Manual) Basophils # (Manual) POC ABG pH 7.171 L 7.244 L POC ABG pCO2 75.4 H 49.5 H POC ABG pO2 148 H 154 H Sodium 134 L Potassium Chloride 92.9 L Carbon Dioxide BUN 59 H Creatinine 3.1 H Glucose 242 H POC Glucose Lactic Acid Calcium 7.6 L Total Creatine Kinase CK-MB (CK-2) Rel Index Troponin T LDL Cholesterol Direct Urine WBC (Auto) Urine Creatinine Vancomycin Trough 06/13/17 06/13/17 06/13/17 14:00 14:00 18:30 WBC RBC Hgb Hct MCH RDW Plt Count Seg Neuts % (Manual) Lymphocytes % (Manual) Monocytes % (Manual) Basophils % (Manual) Nucleated RBC % Seg Neutrophils # Man Lymphocytes # (Manual) Monocytes # (Manual) Basophils # (Manual) POC ABG pH POC ABG pCO2 POC ABG pO2 Sodium Potassium Chloride Carbon Dioxide BUN Creatinine 2.4 H Glucose POC Glucose Lactic Acid Calcium Total Creatine Kinase CK-MB (CK-2) Rel Index Troponin T LDL Cholesterol Direct Urine WBC (Auto) > 182.0 H Urine Creatinine 101.8 H Vancomycin Trough 06/14/17 06/14/17 06/14/17 04:08 05:22 06:53 WBC RBC Hgb Hct MCH RDW Plt Count Seg Neuts % (Manual) Lymphocytes % (Manual) Monocytes % (Manual) Basophils % (Manual) Nucleated RBC % Seg Neutrophils # Man Lymphocytes # (Manual) Monocytes # (Manual) Basophils # (Manual) POC ABG pH 7.310 L POC ABG pCO2 31.1 L POC ABG pO2 Sodium Potassium Chloride Carbon Dioxide 16 L D BUN 46 H Creatinine 2.1 H Glucose 64 L POC Glucose 226 H Lactic Acid Calcium 6.7 L Total Creatine Kinase CK-MB (CK-2) Rel Index Troponin T LDL Cholesterol Direct Urine WBC (Auto) Urine Creatinine Vancomycin Trough 06/14/17 06/14/17 06/14/17 17:26 18:42 23:29 WBC RBC Hgb Hct MCH RDW Plt Count Seg Neuts % (Manual) Lymphocytes % (Manual) Monocytes % (Manual) Basophils % (Manual) Nucleated RBC % Seg Neutrophils # Man Lymphocytes # (Manual) Monocytes # (Manual) Basophils # (Manual) POC ABG pH 7.257 L POC ABG pCO2 POC ABG pO2 Sodium Potassium Chloride Carbon Dioxide BUN Creatinine Glucose POC Glucose 148 H 255 H Lactic Acid Calcium Total Creatine Kinase CK-MB (CK-2) Rel Index Troponin T LDL Cholesterol Direct Urine WBC (Auto) Urine Creatinine Vancomycin Trough 06/15/17 06/15/17 06/15/17 04:02 05:00 05:08 WBC RBC Hgb Hct MCH RDW Plt Count Seg Neuts % (Manual) Lymphocytes % (Manual) Monocytes % (Manual) Basophils % (Manual) Nucleated RBC % Seg Neutrophils # Man Lymphocytes # (Manual) Monocytes # (Manual) Basophils # (Manual) POC ABG pH 7.275 L POC ABG pCO2 POC ABG pO2 130 H Sodium Potassium Chloride 108.8 H Carbon Dioxide 18 L BUN 36 H Creatinine 1.5 H Glucose 265 H POC Glucose 257 H Lactic Acid Calcium 7.1 L Total Creatine Kinase CK-MB (CK-2) Rel Index Troponin T LDL Cholesterol Direct Urine WBC (Auto) Urine Creatinine Vancomycin Trough 06/15/17 06/15/17 06/15/17 10:54 11:56 14:25 WBC RBC Hgb Hct MCH RDW Plt Count Seg Neuts % (Manual) Lymphocytes % (Manual) Monocytes % (Manual) Basophils % (Manual) Nucleated RBC % Seg Neutrophils # Man Lymphocytes # (Manual) Monocytes # (Manual) Basophils # (Manual) POC ABG pH 7.265 L POC ABG pCO2 POC ABG pO2 72 L Sodium Potassium Chloride Carbon Dioxide BUN Creatinine Glucose POC Glucose 240 H Lactic Acid 2.90 H* Calcium Total Creatine Kinase CK-MB (CK-2) Rel Index Troponin T LDL Cholesterol Direct Urine WBC (Auto) Urine Creatinine Vancomycin Trough 06/15/17 06/16/17 06/16/17 17:45 00:07 04:00 WBC 20.2 H RBC 2.99 L Hgb 8.5 L Hct 25.9 L D MCH RDW 17.5 H Plt Count 1030 H* Seg Neuts % (Manual) 92.0 H Lymphocytes % (Manual) 1.0 L Monocytes % (Manual) Basophils % (Manual) Nucleated RBC % 2.0 H Seg Neutrophils # Man 18.6 H Lymphocytes # (Manual) 0.2 L Monocytes # (Manual) 1.0 H Basophils # (Manual) POC ABG pH POC ABG pCO2 POC ABG pO2 Sodium Potassium Chloride Carbon Dioxide BUN Creatinine Glucose POC Glucose 109 H 167 H Lactic Acid Calcium Total Creatine Kinase CK-MB (CK-2) Rel Index Troponin T LDL Cholesterol Direct Urine WBC (Auto) Urine Creatinine Vancomycin Trough 06/16/17 06/16/17 06/16/17 04:03 05:00 11:48 WBC RBC Hgb Hct MCH RDW Plt Count Seg Neuts % (Manual) Lymphocytes % (Manual) Monocytes % (Manual) Basophils % (Manual) Nucleated RBC % Seg Neutrophils # Man Lymphocytes # (Manual) Monocytes # (Manual) Basophils # (Manual) POC ABG pH POC ABG pCO2 30.8 L POC ABG pO2 Sodium 146 H Potassium 3.4 L Chloride 109.1 H Carbon Dioxide 20 L BUN 33 H Creatinine 1.4 H Glucose 108 H POC Glucose 134 H Lactic Acid Calcium 7.4 L Total Creatine Kinase CK-MB (CK-2) Rel Index Troponin T LDL Cholesterol Direct Urine WBC (Auto) Urine Creatinine Vancomycin Trough 06/16/17 06/16/17 06/16/17 12:10 12:19 18:17 WBC RBC Hgb Hct MCH RDW Plt Count Seg Neuts % (Manual) Lymphocytes % (Manual) Monocytes % (Manual) Basophils % (Manual) Nucleated RBC % Seg Neutrophils # Man Lymphocytes # (Manual) Monocytes # (Manual) Basophils # (Manual) POC ABG pH POC ABG pCO2 POC ABG pO2 59 L 66 L Sodium Potassium Chloride Carbon Dioxide BUN Creatinine Glucose POC Glucose 157 H Lactic Acid Calcium Total Creatine Kinase CK-MB (CK-2) Rel Index Troponin T LDL Cholesterol Direct Urine WBC (Auto) Urine Creatinine Vancomycin Trough 06/16/17 06/17/17 06/17/17 23:52 06:01 08:08 WBC RBC Hgb Hct MCH RDW Plt Count Seg Neuts % (Manual) Lymphocytes % (Manual) Monocytes % (Manual) Basophils % (Manual) Nucleated RBC % Seg Neutrophils # Man Lymphocytes # (Manual) Monocytes # (Manual) Basophils # (Manual) POC ABG pH POC ABG pCO2 POC ABG pO2 Sodium Potassium Chloride 108.3 H Carbon Dioxide BUN 35 H Creatinine 1.3 H Glucose 149 H POC Glucose 171 H 171 H Lactic Acid Calcium 7.9 L Total Creatine Kinase CK-MB (CK-2) Rel Index Troponin T LDL Cholesterol Direct Urine WBC (Auto) Urine Creatinine Vancomycin Trough 06/17/17 06/17/17 06/17/17 08:08 12:05 14:10 WBC 22.9 H RBC 3.01 L Hgb 8.3 L Hct 26.6 L MCH RDW 17.6 H Plt Count 1017 H* Seg Neuts % (Manual) 84.0 H Lymphocytes % (Manual) 2.0 L Monocytes % (Manual) Basophils % (Manual) Nucleated RBC % 5.0 H Seg Neutrophils # Man 19.2 H Lymphocytes # (Manual) 0.5 L Monocytes # (Manual) 1.6 H Basophils # (Manual) POC ABG pH POC ABG pCO2 POC ABG pO2 Sodium Potassium Chloride Carbon Dioxide BUN Creatinine Glucose POC Glucose 122 H Lactic Acid Calcium Total Creatine Kinase CK-MB (CK-2) Rel Index Troponin T LDL Cholesterol Direct Urine WBC (Auto) 74.0 H Urine Creatinine Vancomycin Trough 06/17/17 06/17/17 06/18/17 18:11 22:50 04:34 WBC RBC Hgb Hct MCH RDW Plt Count Seg Neuts % (Manual) Lymphocytes % (Manual) Monocytes % (Manual) Basophils % (Manual) Nucleated RBC % Seg Neutrophils # Man Lymphocytes # (Manual) Monocytes # (Manual) Basophils # (Manual) POC ABG pH POC ABG pCO2 POC ABG pO2 Sodium 150 H Potassium Chloride 113.2 H Carbon Dioxide BUN 36 H Creatinine 1.4 H Glucose POC Glucose 130 H 151 H Lactic Acid Calcium 7.9 L Total Creatine Kinase CK-MB (CK-2) Rel Index Troponin T LDL Cholesterol Direct Urine WBC (Auto) Urine Creatinine Vancomycin Trough 06/18/17 06/18/17 06/18/17 04:34 05:01 16:39 WBC 19.6 H RBC 2.97 L Hgb 8.3 L Hct 26.3 L MCH RDW 17.9 H Plt Count 888 H Seg Neuts % (Manual) 90.0 H Lymphocytes % (Manual) 3.0 L Monocytes % (Manual) Basophils % (Manual) Nucleated RBC % 5.0 H Seg Neutrophils # Man 17.6 H Lymphocytes # (Manual) 0.6 L Monocytes # (Manual) Basophils # (Manual) POC ABG pH POC ABG pCO2 POC ABG pO2 Sodium Potassium Chloride Carbon Dioxide BUN Creatinine Glucose POC Glucose 107 H 130 H Lactic Acid Calcium Total Creatine Kinase CK-MB (CK-2) Rel Index Troponin T LDL Cholesterol Direct Urine WBC (Auto) Urine Creatinine Vancomycin Trough 06/18/17 06/18/17 06/19/17 22:11 Unknown 05:34 WBC RBC Hgb Hct MCH RDW Plt Count Seg Neuts % (Manual) Lymphocytes % (Manual) Monocytes % (Manual) Basophils % (Manual) Nucleated RBC % Seg Neutrophils # Man Lymphocytes # (Manual) Monocytes # (Manual) Basophils # (Manual) POC ABG pH POC ABG pCO2 POC ABG pO2 Sodium Potassium Chloride Carbon Dioxide BUN Creatinine Glucose POC Glucose 131 H 111 H Lactic Acid Calcium Total Creatine Kinase CK-MB (CK-2) Rel Index Troponin T LDL Cholesterol Direct Urine WBC (Auto) Urine Creatinine Vancomycin Trough 23.5 H 06/19/17 06/19/17 06/19/17 05:56 05:56 11:18 WBC 20.4 H RBC 3.31 L Hgb 9.0 L Hct 30.1 L MCH 27 L RDW 17.7 H Plt Count 894 H Seg Neuts % (Manual) 81.0 H Lymphocytes % (Manual) 5.0 L Monocytes % (Manual) Basophils % (Manual) Nucleated RBC % Seg Neutrophils # Man 16.5 H Lymphocytes # (Manual) 1.0 L Monocytes # (Manual) 1.2 H Basophils # (Manual) POC ABG pH POC ABG pCO2 POC ABG pO2 Sodium 147 H Potassium Chloride 110.7 H Carbon Dioxide BUN 32 H Creatinine Glucose 113 H POC Glucose 155 H Lactic Acid Calcium 8.0 L Total Creatine Kinase CK-MB (CK-2) Rel Index Troponin T LDL Cholesterol Direct Urine WBC (Auto) Urine Creatinine Vancomycin Trough Chest x-ray: report reviewed, image reviewed
[2017-06-19] MEDS: ZOFRAN IV PRN (20:46)
[2017-06-20] MEDS: MORPHINE IV PRN ×2 (02:44→11:11)
[2017-06-20] MEDS: ZOSYN/NS 2.25 GM/50ML 2.25 GM/50 ML BAG IV SCH ×2 (05:22→13:12)
[2017-06-20 06:06] LABS: Hematocrit 28.6 % (30.3-42.9); Hemoglobin 8.6 gm/dl (10.1-14.3); Mean Corpuscular HGB Conc 30 % (30-34); Mean Corpuscular Hemoglobin 28 pg (28-32); Mean Corpuscular Volume 92 fl (79-97); Platelet Count 753 K/mm3 (140-440); Red Blood Count 3.12 M/mm3 (3.65-5.03); Red Cell Distribution Width 17.6 % (13.2-15.2)
[2017-06-20 06:14] LABS: Calcium 7.7 mg/dL (8.4-10.2)
[2017-06-20] MEDS: NOVOLOG SUB-Q SCH ×2 (06:32→11:47)
[2017-06-20 07:09] LABS: Total Cells Counted 100
[2017-06-20 07:10] LABS: Anisocytosis 1+; Band Neutrophils # (Manual) 2.2 K/mm3; Basophils % (Manual) 0 % (0.0-1.8); Hypochromasia 1+; Platelet Estimate Consistent w Auto
[2017-06-20] MEDS: PULMICORT IH SCH ×2 (08:09→19:45)
[2017-06-20] MEDS: BROVANA NEBU IH SCH ×2 (08:09→19:45)
[2017-06-20] MEDS: DUONEB *Not for PRN Use IH SCH ×3 (08:11→19:45)
[2017-06-20] MEDS ORDERED: DELTASONE PO SCH (10:00)
[2017-06-20] MEDS: LOVENOX SUB-Q SCH (10:52)
--- NOTE | 2017-06-20 11:05 | Discharge Summary ---
Providers - Providers Date of Admission: 06/12/17 21:56 Date of discharge: 06/20/17 Attending physician: AUGUSTO DOMÍNGUEZ 06/12/17 19:02 Consult to Physician [CONS] Routine Consulting Provider: MICHELLE AUGUST Reason For Exam: LUIS, Hyponatremia Place consult to:: teresa Notified:: y Was contact made?: Yes If yes, spoke with:: Dr August 06/12/17 21:56 Consult to Physician [CONS] Routine Consulting Provider: LAUREL RIBERA Reason For Exam: cc Place consult to:: Dr Ribera Notified:: yes Was contact made?: Yes Comment:: Pt seen by Dr Ribera today 06/13/17 06/13/17 08:02 Consult to Dietitian/Nutrition [CONS] Routine Physician Instructions: Reason For Exam: Reason for Consult: Evaluate nutritional intake 06/14/17 13:20 Consult to Dietitian/Nutrition [CONS] Routine Physician Instructions: Reason For Exam: Reason for Consult: Write/Manage Tube Feeding 06/16/17 14:45 Speech Therapy Evaluation and Treat [CONS] Routine Reason For Exam: Swallow evaluation 06/18/17 09:48 Physical Therapy Evaluation and Treat [CONS] Routine Comment: Reason For Exam: deconditioning 06/19/17 11:38 Consult to Wound/ET Nurse [CONS] Routine Reason For Exam: sacral/ right leg Primary care physician: GALILEA QIUCK Hospitalization Reason for admission: ARf, resp failure, hyperkalemia Condition: Serious Hospital course: 61-year-old female with a history of hypertension, COPD, hyperlipidemia was just discharged from the hospital on June 02 after complicated course of C. difficile colitis, status post colectomy . The patient was transferred from rehabilitation to the emergency room for evaluation of hypotension. Pt. was admitted with diagnosis of acute hypoxemic respiratory failure requiring intubation, septic shock that required IV fluid resuscitation as well as pressors of levophed. She was also hyponatremic and hyperkalemic in the emergency room. It has resolved with medical therapy. Patient was also noted to have acute kidney injury with etiology related to prerenal component/ vasomotor nephropathy. The patient's grandmother returned back to baseline prior to discharge. The patient improved clinically and was later extubated and transferred to the floor. Patient was also noted to have acute COPD exacerbation treated with systemic steroids, DuoNeb, Pulmicort/Brovana. Patient was later transitioned to by mouth steroids and is felt to have received maximal hospital benefit. Dedicated discharge time 37 minutes. Disposition: [id number] [facility] Time spent for discharge: 37 - Discharge Diagnoses (1) Acute renal failure Status: Acute Qualifiers: Acute renal failure type: unspecified Qualified Code(s): N17.9 - Acute kidney failure, unspecified (2) Hypotension Status: Acute Qualifiers: Hypotension type: unspecified hypotension type Qualified Code(s): I95.9 - Hypotension, unspecified (3) Acute and chronic respiratory failure ([id number]) Status: Acute Qualifiers: Respiratory failure complication: hypoxia and hypercapnia Qualified Code(s) : J96.21 - Acute and chronic respiratory failure with hypoxia; J96.22 - Acute and chronic respiratory failure with hypercapnia; J96.22 - Acute and chronic respiratory failure with hypercapnia; J96.22 - Acute and chronic respiratory failure with hypercapnia (4) Acute exacerbation of chronic obstructive pulmonary disease (COPD) Status: Acute (5) Acute hypercapnic respiratory failure Status: Acute (6) COPD exacerbation Status: Acute (7) Sepsis Status: Acute Core Measure Documentation - Palliative Care Palliative Care/ Comfort Measures: Not Applicable - Core Measures Any of the following diagnoses?: none Exam - Constitutional Vitals: Temp Pulse Resp BP Pulse Ox 97.6 F 100 H 20 93/49 100 06/20/17 07:26 06/20/17 08:31 06/20/17 08:31 06/20/17 07:26 06/20/17 08:06 General appearance: Present: no acute distress, well-nourished - EENT Eyes: Present: PERRL ENT: hearing intact, clear oral mucosa - Neck Neck: Present: supple, normal ROM - Respiratory Respiratory effort: normal Respiratory: bilateral: CTA - Cardiovascular Heart Sounds: Present: S1 & S2. Absent: rub, click - Extremities Extremities: pulses symmetrical, No edema Peripheral Pulses: within normal limits - Abdominal General gastrointestinal: Present: soft, non-tender, non-distended, normal bowel sounds Female genitourinary: Present: normal - Integumentary Integumentary: Present: clear, warm, dry - Musculoskeletal Musculoskeletal: gait normal, strength equal bilaterally - Psychiatric Psychiatric: appropriate mood/affect, intact judgment & insight - Neurologic Neurologic: CNII-XII intact, moves all extremities Plan Activity: advance as tolerated Weight Bearing Status: Weight Bear as Tolerated Follow up with: PRIMARY CARE, [Referring] - 3-5 Days SHAD LASSITER MD [Staff Physician] - 7 Days MAGAN MADDEN MD [Staff Physician] - 7 Days
[2017-06-20] MEDS: NACL 0.45% 1000 ML 1,000 ML IV SCH (11:10)
[2017-06-20] MEDS ORDERED: TRIPLE ANTIBIOTIC TP ONE (13:00)
--- NOTE | 2017-06-20 13:10 | Progress Note ---
Assessment and Plan Imp: 1. Centrilobular emphysema 2. COPD exac. 3. Hyponatremia 4. Thrombocytosis 5. LUIS 6. A/C respiratory failure, hypoxia and hypercapnea 7. Leukocytosis, likely steroid-related Rec: 1. Prednisone 40mg x 3 days, 30mg x 3 days, 20mg x 3 days, 10mg x 3 days; monitor WBCs 2. Duonebs; pulmicort/brovana -> continue these at [facility] 3. Diet advanced per ST 4. Consider heme consult if platelets fail to fully improve 5. Try to mobilize -> PT 6. IVFs per renal; patient encouraged to drink free water 7. Can go to [facility] pulm-solorzaon and f/u with us in office 1-2 weeks Plan of care reviewed with patient, she understands/agrees Subjective Date of service: 06/20/17 Principal diagnosis: Acute resp failure ,LUIS Interval history: No events. Awake, alert. on NC. SOB better. No chest pain. C/o leg pain (chronic ). C/o LE edema. Active Medications Acetaminophen (Tylenol) 650 mg PO Q4H PRN PRN Reason: Pain MILD(1-3)/Fever >100.5/KHOURY Last Admin: 06/19/17 23:47 Dose: 650 mg Albuterol/Ipratropium (Duoneb *Not For Prn Use*) 1 ampul IH TIDRT [facility] Last Admin: 06/20/17 08:11 Dose: Not Given Lipase/Protease/Amylase (Pancrefide Pearce 10,500 Unit) 1 each FEEDTUBE PRN PRN PRN Reason: For Clogged Feeding Tube Arformoterol Tartrate (Brovana Nebu) 15 mcg IH Q12HRT [facility] Last Admin: 06/20/17 08:09 Dose: 15 mcg Budesonide (Pulmicort) 0.5 mg IH Q12HRT [facility] Last Admin: 06/20/17 08:09 Dose: 0.5 mg Dextrose (D50w (25gm) Syringe) 50 ml IV PRN PRN PRN Reason: Hypoglycemia Enoxaparin Sodium (Lovenox) 30 mg SUB-Q QDAY [facility] Last Admin: 06/20/17 10:52 Dose: 30 mg Hydrophilic Ointment (Vaseline Lip Therapy) 1 applic TP Q2H PRN PRN Reason: Dry Lips Last Admin: 06/14/17 10:34 Dose: 1 applic Piperacillin Sod/Tazobactam Sod (Zosyn/Ns 2.25 Gm/50ml) 2.25 gm in 50 mls @ 100 mls/hr IV Q6HR [facility] PRN Reason: Protocol Last Admin: 06/20/17 05:22 Dose: 100 mls/hr Sodium Chloride (Nacl 0.45% 1000 Ml) 1,000 mls @ 75 mls/hr IV DIRECT [facility] Last Admin: 06/20/17 11:10 Dose: 75 mls/hr Vancomycin HCl 500 mg/ Sodium (Chloride) 100 mls @ 66.667 mls/hr IV Q24H [facility] Last Admin: 06/19/17 11:30 Dose: 66.667 mls/hr Insulin Aspart (Novolog) 0 units SUB-Q Q6HR [facility] PRN Reason: Protocol Last Admin: 06/20/17 11:47 Dose: Not Given Morphine Sulfate (Morphine) 2 mg IV Q4H PRN PRN Reason: Pain, Moderate (4-6) Last Admin: 06/20/17 11:11 Dose: 2 mg Multi-Ingred Cream/Lotion/Oil/Oint (Artificial Tears Ophth Oint) 1 applic OU Q4H PRN PRN Reason: Dry Eye(s) Ondansetron HCl (Zofran) 4 mg IV Q8H PRN PRN Reason: N/V unrelieved by Reglan Last Admin: 06/19/17 20:46 Dose: 4 mg Prednisone (Deltasone) 40 mg PO QDAY [facility] Last Admin: 06/20/17 10:51 Dose: 40 mg Simple Syrup (Simple Syrup) 15 ml FEEDTUBE PRN PRN PRN Reason: Hypoglycemia Simple Syrup (Simple Syrup) 30 ml FEEDTUBE PRN PRN PRN Reason: Hypoglycemia Sodium Bicarbonate (Sodium Bicarbonate) 325 mg FEEDTUBE PRN PRN PRN Reason: For Clogged Feeding Tube Vancomycin HCl (Vancomycin Pharmacy To Dose) 1 each IV PKCONSULT DUNG PRN Reason: Protocol Objective Vital Signs - 12hr 06/20/17 06/20/17 06/20/17 02:44 03:14 04:16 Temperature 98.1 F Pulse Rate 98 H Pulse Rate [ Anterior Bilateral Throughout] Respiratory 18 18 16 Rate Respiratory Rate [Anterior Bilateral Throughout] Blood Pressure 91/45 O2 Sat by Pulse 99 Oximetry 06/20/17 06/20/17 06/20/17 07:26 08:06 08:31 Temperature 97.6 F Pulse Rate 94 H Pulse Rate [ 97 H 100 H Anterior Bilateral Throughout] Respiratory 18 Rate Respiratory 20 20 Rate [Anterior Bilateral Throughout] Blood Pressure 93/49 O2 Sat by Pulse 100 100 Oximetry Constitutional: no acute distress, alert ENT: oropharynx moist Neck: supple, no lymphadenopathy Effort: normal Ascultation: Bilateral: diminished breath sounds Cardiovascular: regular rate and rhythm (no mrg) Gastrointestinal: normoactive bowel sounds, soft, non-tender Integumentary: normal Extremities: no cyanosis, edema (2+ bilateral pedal edema) Neurologic: normal mental status, non-focal exam, pupils equal and round, CN II- XII normal Psychiatric: mood appropriate, affect normal CBC and BMP: 06/20/17 Unknown 06/20/17 Unknown ABG, PT/INR, D-dimer: ABG POC ABG pH 7.379 (7.35-7.45) 06/16/17 12:19 POC ABG pCO2 36.9 (35-45) 06/16/17 12:19 POC ABG pO2 66 (80-105) L 06/16/17 12:19 POC ABG HCO3 21.8 06/16/17 12:19 POC ABG Total CO2 23 06/16/17 12:19 POC ABG O2 Sat 92 06/16/17 12:19 Abnormal lab findings: Abnormal Labs 06/12/17 06/12/17 06/12/17 01:34 17:44 18:00 WBC 15.2 H RBC Hgb Hct MCH RDW 16.9 H Plt Count 1256 H* Seg Neuts % (Manual) 85.0 H Lymphocytes % (Manual) 4.0 L Monocytes % (Manual) 8.0 H Basophils % (Manual) 2.0 H Nucleated RBC % Seg Neutrophils # Man 12.9 H Lymphocytes # (Manual) 0.6 L Monocytes # (Manual) 1.2 H Basophils # (Manual) 0.3 H POC ABG pH POC ABG pCO2 POC ABG pO2 Sodium 126 L Potassium 6.6 H* Chloride 91.7 L Carbon Dioxide 11 L BUN 70 H Creatinine 3.9 H Glucose POC Glucose Lactic Acid Calcium 8.3 L Total Creatine Kinase CK-MB (CK-2) Rel Index Troponin T 0.073 H LDL Cholesterol Direct 32 L Urine WBC (Auto) > 182.0 H Urine Creatinine Vancomycin Trough 06/12/17 06/12/17 06/12/17 18:56 22:03 22:38 WBC RBC Hgb Hct MCH RDW Plt Count Seg Neuts % (Manual) Lymphocytes % (Manual) Monocytes % (Manual) Basophils % (Manual) Nucleated RBC % Seg Neutrophils # Man Lymphocytes # (Manual) Monocytes # (Manual) Basophils # (Manual) POC ABG pH POC ABG pCO2 POC ABG pO2 Sodium 135 L D Potassium 5.1 H D Chloride 94.9 L Carbon Dioxide BUN 65 H Creatinine 3.3 H Glucose 178 H POC Glucose 108 H Lactic Acid Calcium 8.2 L Total Creatine Kinase 27 L CK-MB (CK-2) Rel Index 9.2 H Troponin T 0.057 H D LDL Cholesterol Direct Urine WBC (Auto) Urine Creatinine Vancomycin Trough 06/13/17 06/13/17 06/13/17 01:08 05:40 05:40 WBC 15.7 H RBC 3.64 L Hgb Hct MCH RDW 16.8 H Plt Count 1178 H* Seg Neuts % (Manual) 78.0 H Lymphocytes % (Manual) 4.0 L Monocytes % (Manual) 11.0 H Basophils % (Manual) Nucleated RBC % Seg Neutrophils # Man 12.2 H Lymphocytes # (Manual) 0.6 L Monocytes # (Manual) 1.7 H Basophils # (Manual) POC ABG pH POC ABG pCO2 POC ABG pO2 Sodium Potassium Chloride Carbon Dioxide BUN Creatinine Glucose POC Glucose 203 H Lactic Acid Calcium Total Creatine Kinase 26 L CK-MB (CK-2) Rel Index 12.3 H Troponin T 0.047 H LDL Cholesterol Direct Urine WBC (Auto) Urine Creatinine Vancomycin Trough 06/13/17 06/13/17 06/13/17 05:40 06:34 10:00 WBC RBC Hgb Hct MCH RDW Plt Count Seg Neuts % (Manual) Lymphocytes % (Manual) Monocytes % (Manual) Basophils % (Manual) Nucleated RBC % Seg Neutrophils # Man Lymphocytes # (Manual) Monocytes # (Manual) Basophils # (Manual) POC ABG pH 7.171 L 7.244 L POC ABG pCO2 75.4 H 49.5 H POC ABG pO2 148 H 154 H Sodium 134 L Potassium Chloride 92.9 L Carbon Dioxide BUN 59 H Creatinine 3.1 H Glucose 242 H POC Glucose Lactic Acid Calcium 7.6 L Total Creatine Kinase CK-MB (CK-2) Rel Index Troponin T LDL Cholesterol Direct Urine WBC (Auto) Urine Creatinine Vancomycin Trough 06/13/17 06/13/17 06/13/17 14:00 14:00 18:30 WBC RBC Hgb Hct MCH RDW Plt Count Seg Neuts % (Manual) Lymphocytes % (Manual) Monocytes % (Manual) Basophils % (Manual) Nucleated RBC % Seg Neutrophils # Man Lymphocytes # (Manual) Monocytes # (Manual) Basophils # (Manual) POC ABG pH POC ABG pCO2 POC ABG pO2 Sodium Potassium Chloride Carbon Dioxide BUN Creatinine 2.4 H Glucose POC Glucose Lactic Acid Calcium Total Creatine Kinase CK-MB (CK-2) Rel Index Troponin T LDL Cholesterol Direct Urine WBC (Auto) > 182.0 H Urine Creatinine 101.8 H Vancomycin Trough 06/14/17 06/14/17 06/14/17 04:08 05:22 06:53 WBC RBC Hgb Hct MCH RDW Plt Count Seg Neuts % (Manual) Lymphocytes % (Manual) Monocytes % (Manual) Basophils % (Manual) Nucleated RBC % Seg Neutrophils # Man Lymphocytes # (Manual) Monocytes # (Manual) Basophils # (Manual) POC ABG pH 7.310 L POC ABG pCO2 31.1 L POC ABG pO2 Sodium Potassium Chloride Carbon Dioxide 16 L D BUN 46 H Creatinine 2.1 H Glucose 64 L POC Glucose 226 H Lactic Acid Calcium 6.7 L Total Creatine Kinase CK-MB (CK-2) Rel Index Troponin T LDL Cholesterol Direct Urine WBC (Auto) Urine Creatinine Vancomycin Trough 06/14/17 06/14/17 06/14/17 17:26 18:42 23:29 WBC RBC Hgb Hct MCH RDW Plt Count Seg Neuts % (Manual) Lymphocytes % (Manual) Monocytes % (Manual) Basophils % (Manual) Nucleated RBC % Seg Neutrophils # Man Lymphocytes # (Manual) Monocytes # (Manual) Basophils # (Manual) POC ABG pH 7.257 L POC ABG pCO2 POC ABG pO2 Sodium Potassium Chloride Carbon Dioxide BUN Creatinine Glucose POC Glucose 148 H 255 H Lactic Acid Calcium Total Creatine Kinase CK-MB (CK-2) Rel Index Troponin T LDL Cholesterol Direct Urine WBC (Auto) Urine Creatinine Vancomycin Trough 06/15/17 06/15/1706/15/17 04:02 05:00 05:08 WBC RBC Hgb Hct MCH RDW Plt Count Seg Neuts % (Manual) Lymphocytes % (Manual) Monocytes % (Manual) Basophils % (Manual) Nucleated RBC % Seg Neutrophils # Man Lymphocytes # (Manual) Monocytes # (Manual) Basophils # (Manual) POC ABG pH 7.275 L POC ABG pCO2 POC ABG pO2 130 H Sodium Potassium Chloride 108.8 H Carbon Dioxide 18 L BUN 36 H Creatinine 1.5 H Glucose 265 H POC Glucose 257 H Lactic Acid Calcium 7.1 L Total Creatine Kinase CK-MB (CK-2) Rel Index Troponin T LDL Cholesterol Direct Urine WBC (Auto) Urine Creatinine Vancomycin Trough 06/15/17 06/15/17 06/15/17 10:54 11:56 14:25 WBC RBC Hgb Hct MCH RDW Plt Count Seg Neuts % (Manual) Lymphocytes % (Manual) Monocytes % (Manual) Basophils % (Manual) Nucleated RBC % Seg Neutrophils # Man Lymphocytes # (Manual) Monocytes # (Manual) Basophils # (Manual) POC ABG pH 7.265 L POC ABG pCO2 POC ABG pO2 72 L Sodium Potassium Chloride Carbon Dioxide BUN Creatinine Glucose POC Glucose 240 H Lactic Acid 2.90 H* Calcium Total Creatine Kinase CK-MB (CK-2) Rel Index Troponin T LDL Cholesterol Direct Urine WBC (Auto) Urine Creatinine Vancomycin Trough 06/15/17 06/16/17 06/16/17 17:45 00:07 04:00 WBC 20.2 H RBC 2.99 L Hgb 8.5 L Hct 25.9 L D MCH RDW 17.5 H Plt Count 1030 H* Seg Neuts % (Manual) 92.0 H Lymphocytes % (Manual) 1.0 L Monocytes % (Manual) Basophils % (Manual) Nucleated RBC % 2.0 H Seg Neutrophils # Man 18.6 H Lymphocytes # (Manual) 0.2 L Monocytes # (Manual) 1.0 H Basophils # (Manual) POC ABG pH POC ABG pCO2 POC ABG pO2 Sodium Potassium Chloride Carbon Dioxide BUN Creatinine Glucose POC Glucose 109 H 167 H Lactic Acid Calcium Total Creatine Kinase CK-MB (CK-2) Rel Index Troponin T LDL Cholesterol Direct Urine WBC (Auto) Urine Creatinine Vancomycin Trough 06/16/17 06/16/17 06/16/17 04:03 05:00 11:48 WBC RBC Hgb Hct MCH RDW Plt Count Seg Neuts % (Manual) Lymphocytes % (Manual) Monocytes % (Manual) Basophils % (Manual) Nucleated RBC % Seg Neutrophils # Man Lymphocytes # (Manual) Monocytes # (Manual) Basophils # (Manual) POC ABG pH POC ABG pCO2 30.8 L POC ABG pO2 Sodium 146 H Potassium 3.4 L Chloride 109.1 H Carbon Dioxide 20 L BUN 33 H Creatinine 1.4 H Glucose 108 H POC Glucose 134 H Lactic Acid Calcium 7.4 L Total Creatine Kinase CK-MB (CK-2) Rel Index Troponin T LDL Cholesterol Direct Urine WBC (Auto) Urine Creatinine Vancomycin Trough 06/16/17 06/16/17 06/16/17 12:10 12:19 18:17 WBC RBC Hgb Hct MCH RDW Plt Count Seg Neuts % (Manual) Lymphocytes % (Manual) Monocytes % (Manual) Basophils % (Manual) Nucleated RBC % Seg Neutrophils # Man Lymphocytes # (Manual) Monocytes # (Manual) Basophils # (Manual) POC ABG pH POC ABG pCO2 POC ABG pO2 59 L 66 L Sodium Potassium Chloride Carbon Dioxide BUN Creatinine Glucose POC Glucose 157 H Lactic Acid Calcium Total Creatine Kinase CK-MB (CK-2) Rel Index Troponin T LDL Cholesterol Direct Urine WBC (Auto) Urine Creatinine Vancomycin Trough 06/16/17 06/17/17 06/17/17 23:52 06:01 08:08 WBC RBC Hgb Hct MCH RDW Plt Count Seg Neuts % (Manual) Lymphocytes % (Manual) Monocytes % (Manual) Basophils % (Manual) Nucleated RBC % Seg Neutrophils # Man Lymphocytes # (Manual) Monocytes # (Manual) Basophils # (Manual) POC ABG pH POC ABG pCO2 POC ABG pO2 Sodium Potassium Chloride 108.3 H Carbon Dioxide BUN 35 H Creatinine 1.3 H Glucose 149 H POC Glucose 171 H 171 H Lactic Acid Calcium 7.9 L Total Creatine Kinase CK-MB (CK-2) Rel Index Troponin T LDL Cholesterol Direct Urine WBC (Auto) Urine Creatinine Vancomycin Trough 06/17/17 06/17/17 06/17/17 08:08 12:05 14:10 WBC 22.9 H RBC 3.01 L Hgb 8.3 L Hct 26.6 L MCH RDW 17.6 H Plt Count 1017 H* Seg Neuts % (Manual) 84.0 H Lymphocytes % (Manual) 2.0 L Monocytes % (Manual) Basophils % (Manual) Nucleated RBC % 5.0 H Seg Neutrophils # Man 19.2 H Lymphocytes # (Manual) 0.5 L Monocytes # (Manual) 1.6 H Basophils # (Manual) POC ABG pH POC ABG pCO2 POC ABG pO2 Sodium Potassium Chloride Carbon Dioxide BUN Creatinine Glucose POC Glucose 122 H Lactic Acid Calcium Total Creatine Kinase CK-MB (CK-2) Rel Index Troponin T LDL Cholesterol Direct Urine WBC (Auto) 74.0 H Urine Creatinine Vancomycin Trough 06/17/17 06/17/17 06/18/17 18:11 22:50 04:34 WBC RBC Hgb Hct MCH RDW Plt Count Seg Neuts % (Manual) Lymphocytes % (Manual) Monocytes % (Manual) Basophils % (Manual) Nucleated RBC % Seg Neutrophils # Man Lymphocytes # (Manual) Monocytes # (Manual) Basophils # (Manual) POC ABG pH POC ABG pCO2 POC ABG pO2 Sodium 150 H Potassium Chloride 113.2 H Carbon Dioxide BUN 36 H Creatinine 1.4 H Glucose POC Glucose 130 H 151 H Lactic Acid Calcium 7.9 L Total Creatine Kinase CK-MB (CK-2) Rel Index Troponin T LDL Cholesterol Direct Urine WBC (Auto) Urine Creatinine Vancomycin Trough 06/18/17 06/18/17 06/18/17 04:34 05:01 16:39 WBC 19.6 H RBC 2.97 L Hgb 8.3 L Hct 26.3 L MCH RDW 17.9 H Plt Count 888 H Seg Neuts % (Manual) 90.0 H Lymphocytes % (Manual) 3.0 L Monocytes % (Manual) Basophils % (Manual) Nucleated RBC % 5.0 H Seg Neutrophils # Man 17.6 H Lymphocytes # (Manual) 0.6 L Monocytes # (Manual) Basophils # (Manual) POC ABG pH POC ABG pCO2 POC ABG pO2 Sodium Potassium Chloride Carbon Dioxide BUN Creatinine Glucose POC Glucose 107 H 130 H Lactic Acid Calcium Total Creatine Kinase CK-MB (CK-2) Rel Index Troponin T LDL Cholesterol Direct Urine WBC (Auto) Urine Creatinine Vancomycin Trough 06/18/17 06/18/17 06/19/17 22:11 Unknown 05:34 WBC RBC Hgb Hct MCH RDW Plt Count Seg Neuts % (Manual) Lymphocytes % (Manual) Monocytes % (Manual) Basophils % (Manual) Nucleated RBC % Seg Neutrophils # Man Lymphocytes # (Manual) Monocytes # (Manual) Basophils # (Manual) POC ABG pH POC ABG pCO2 POC ABG pO2 Sodium Potassium Chloride Carbon Dioxide BUN Creatinine Glucose POC Glucose 131 H 111 H Lactic Acid Calcium Total Creatine Kinase CK-MB (CK-2) Rel Index Troponin T LDL Cholesterol Direct Urine WBC (Auto) Urine Creatinine Vancomycin Trough 23.5 H 06/19/17 06/19/17 06/19/17 05:56 05:56 11:18 WBC 20.4 H RBC 3.31 L Hgb 9.0 L Hct 30.1 L MCH 27 L RDW 17.7 H Plt Count 894 H Seg Neuts % (Manual) 81.0 H Lymphocytes % (Manual) 5.0 L Monocytes % (Manual) Basophils % (Manual) Nucleated RBC % Seg Neutrophils # Man 16.5 H Lymphocytes # (Manual) 1.0 L Monocytes # (Manual) 1.2 H Basophils # (Manual) POC ABG pH POC ABG pCO2 POC ABG pO2 Sodium 147 H Potassium Chloride 110.7 H Carbon Dioxide BUN 32 H Creatinine Glucose 113 H POC Glucose 155 H Lactic Acid Calcium 8.0 L Total Creatine Kinase CK-MB (CK-2) Rel Index Troponin T LDL Cholesterol Direct Urine WBC (Auto) Urine Creatinine Vancomycin Trough 06/19/17 06/20/17 06/20/17 16:12 06:28 Unknown WBC RBC Hgb Hct MCH RDW Plt Count Seg Neuts % (Manual) Lymphocytes % (Manual) Monocytes % (Manual) Basophils % (Manual) Nucleated RBC % Seg Neutrophils # Man Lymphocytes # (Manual) Monocytes # (Manual) Basophils # (Manual) POC ABG pH POC ABG pCO2 POC ABG pO2 Sodium Potassium Chloride 108.4 H Carbon Dioxide BUN 30 H Creatinine 1.4 H Glucose POC Glucose 156 H 64 L Lactic Acid Calcium 7.7 L Total Creatine Kinase CK-MB (CK-2) Rel Index Troponin T LDL Cholesterol Direct Urine WBC (Auto) Urine Creatinine Vancomycin Trough 06/20/17 Unknown WBC 20.0 H RBC 3.12 L Hgb 8.6 L Hct 28.6 L MCH RDW 17.6 H Plt Count 753 H Seg Neuts % (Manual) Lymphocytes % (Manual) 9.0 L Monocytes % (Manual) 10.0 H Basophils % (Manual) Nucleated RBC % 7.0 H Seg Neutrophils # Man 13.4 H Lymphocytes # (Manual) Monocytes # (Manual) 2.0 H Basophils # (Manual) POC ABG pH POC ABG pCO2 POC ABG pO2 Sodium Potassium Chloride Carbon Dioxide BUN Creatinine Glucose POC Glucose Lactic Acid Calcium Total Creatine Kinase CK-MB (CK-2) Rel Index Troponin T LDL Cholesterol Direct Urine WBC (Auto) Urine Creatinine Vancomycin Trough Chest x-ray: report reviewed, image reviewed
[2017-06-20] MEDS: VANCOMYCIN VIAL 500 MG in NACL 0.9% 100 ML IV SCH (13:12)
[2017-06-20] MEDS ORDERED: PERCOCET 5/325 PO PRN (16:29)
[2017-06-20 16:31] VITALS: BP 102/57
== END 2017-06-20 20:00 | disposition home or self-care (01) | DRG 871 ==
LOC: ED 16:55 → CC1 21:56 → 3A 06-17 15:07
PROVIDERS: ADMIT Internal Medicine; ATTEND Hospitalist
PROC: 06HM33Z Insertion of Infusion Device into Right Femoral Vein, Percutaneous Approach (ICD-10-PCS; 2017-06-12)
PROC: B54BZZA Ultrasonography of Right Lower Extremity Veins, Guidance (ICD-10-PCS; 2017-06-12)
PROC: 4A033R1 Measurement of Arterial Saturation, Peripheral, Percutaneous Approach (ICD-10-PCS; principal; 2017-06-13)
PROC: 5A1945Z Respiratory Ventilation, 24-96 Consecutive Hours (ICD-10-PCS; 2017-06-14)
PROC: 0BH17EZ Insertion of Endotracheal Airway into Trachea, Via Natural or Artificial Opening (ICD-10-PCS; 2017-06-14)
DX: A41.9 Sepsis, unspecified organism (principal); R65.21 Severe sepsis with septic shock; J96.21 Acute and chronic respiratory failure with hypoxia; J96.22 Acute and chronic respiratory failure with hypercapnia; E87.0 Hyperosmolality and hypernatremia; A04.72 Enterocolitis due to Clostridium difficile, not specified as recurrent; N39.0 Urinary tract infection, site not specified; J44.1 Chronic obstructive pulmonary disease with (acute) exacerbation; N17.9 Acute kidney failure, unspecified; E87.5 Hyperkalemia; E78.00 Pure hypercholesterolemia, unspecified; Z90.710 Acquired absence of both cervix and uterus; Z87.891 Personal history of nicotine dependence; Z79.82 Long term (current) use of aspirin; E86.0 Dehydration; Z82.49 Family history of ischemic heart disease and other diseases of the circulatory system; I12.9 Hypertensive chronic kidney disease with stage 1 through stage 4 chronic kidney disease, or unspecified chronic kidney disease; N18.9 Chronic kidney disease, unspecified; R13.12 Dysphagia, oropharyngeal phase
CPT/HCPCS: 36415; 36600; 71010; 74000; 76705; 76770; 80048; 80061; 80202; 81001; 82140; 82550; 82553; 82565; 82570; 82803; 82962; 84295; 84300; 84484; 85007; 85025; 87040; 87070; 87086; 87205; 89050; 93005; 93010; 94002; 94003; 94640; 94760; 99285; A6250; G8978-GP; G8979-GP; G8996-GN; G8997-GN; J0610; J1650; J1815; J2250; J2270; J2405; J2543; J2920; J3010; J3370; J7030; J7042; J7050; J7070; J7512

== ENCOUNTER 2017-08-23 04:32 | Inpatient (IN) | payer MEDICARE ==
[2017-08-23] MEDS ORDERED: NACL 0.9% 1000 ML 1,000 ML ONE (05:21)
[2017-08-23] MEDS ORDERED: NACL 0.9% 1000 ML 1,000 ML IV ONE ×2 (05:39→06:48)
[2017-08-23] MEDS ORDERED: VANCOMYCIN VIAL IV ONE ×2 (06:20→08:40)
[2017-08-23] MEDS ORDERED: VANCOMYCIN 750 MG in NACL 0.9% 250ML 250 ML IV ONE (06:30)
[2017-08-23 06:32] LABS: Hematocrit 36.1 % (30.3-42.9); Hemoglobin 11.1 gm/dl (10.1-14.3); Mean Corpuscular HGB Conc 31 % (30-34); Mean Corpuscular Hemoglobin 28 pg (28-32); Mean Corpuscular Volume 92 fl (79-97); Platelet Count 524 K/mm3 (140-440); Red Blood Count 3.93 M/mm3 (3.65-5.03); Red Cell Distribution Width 19.7 % (13.2-15.2)
--- NOTE | 2017-08-23 06:36 | Emergency Department Report ---
ED Altered Mental Status HPI - General Chief Complaint: Altered Mental Status Stated Complaint: ALTERED MENTAL STATUS Time Seen by Provider: 08/23/17 06:17 Source: EMS, old records reviewed (patient has multiple recent admissions including July for bilateral extensive DVT as well as recent admissions for cdif, sepsis, and COPD exacerbation requiring intubation patient refused offer for PEG placeent by GI in June 2017. Patient was also supposed to follow up as an outpatient with hematology for management of her anticoagulation possible malignancy. ) Mode of arrival: Stretcher Limitations: Altered Mental Status, Physical Limitation - History of Present Illness Initial Comments: 62-year-old female with a past medical history of CHF, COPD with home oxygen, extensive bilateral DVT currently on Eliquis, hypertension, acute kidney disease , elevated cholesterol, chronic decubitus ulcers and previous hysterectomy and colostomy placement presents to the hospital from assisted with complaints of alteration in mental status. Patient apparently has had poor by mouth intake for the last couple days. detention staff noted that patient is lethargic and less alert than her baseline. Patient opens eyes to voice and follow commands but does not reliably answer questions regarding orientation. She is oriented to self. Patient complains of generalized body aches and unable to provide any further history of present illness. - Related Data Home Medications Medication Instructions Recorded Confirmed Last Taken Acetaminophen 650 mg PO Q4HR PRN 08/23/17 08/23/17 Unknown Apixaban [Eliquis] 5 mg PO BID 08/23/17 08/23/17 08/22/17 Arformoterol Nebu [Brovana Nebu] 15 mcg IH Q12HR 08/23/17 08/23/17 08/22/17 Ascorbic Acid 500 mg PO BID 08/23/17 08/23/17 08/22/17 Bisacodyl 10 mg RC DAILY PRN 08/23/17 08/23/17 Unknown Famotidine [Pepcid] 10 mg PO BID 08/23/17 08/23/17 08/22/17 Magnesium Hydroxide [Milk of 30 ml PO Q4HR PRN 08/23/17 08/23/17 Unknown Magnesia] Petrolatum,White [Vaseline Lip 5 gm TP Q2HR PRN 08/23/17 08/23/17 Unknown Therapy] traMADol [Ultram] 50 mg PO Q6HR PRN 08/23/17 08/23/17 Unknown Allergies Allergy/AdvReac Type Severity Reaction Status Date / Time No Known Allergies Allergy Verified 05/23/15 12:02 ED Review of Systems ROS: Stated complaint: ALTERED MENTAL STATUS Other details as noted in HPI Comment: Unobtainable due to pts medical conditions (ams) ED Past Medical Hx - Past Medical History Previous Medical History?: Yes Hx Hypertension: Yes Hx CVA: No Hx Heart Attack/AMI: No Hx Congestive Heart Failure: Yes (echo 07/12/17 ef 40-45%) Hx Diabetes: No Hx Deep Vein Thrombosis: Yes Hx Pulmonary Embolism: No Hx GERD: No Hx Liver Disease: No Hx Renal Disease: Yes (akd) Hx Sickle Cell Disease: No Hx Arthritis: Yes Hx Headaches / Migraines: No Hx Seizures: No Hx Kidney Stones: No Hx Psychiatric Treatment: No Hx Asthma: Yes Hx COPD: Yes Hx Tuberculosis: No Hx Dementia: No Hx HIV: No Additional medical history: HIGH CHOLESTEROL. Home O2, stage IV decubitus ulcers with bone showing on the buttocks - Surgical History Past Surgical History?: Yes Hx Coronary Stent: No Hx Open Heart Surgery: No Hx Pacemaker: No Hx Internal Defibrillator: No Hx Cholecystectomy: No Hx Appendectomy: No Hx Breast Surgery: No Additional Surgical History: HYSTERECTOMY, colostomy right lower quadrant - Social History Smoking Status: Unknown if ever smoked Substance Use Type: None - Medications Home Medications: Home Medications Medication Instructions Recorded Confirmed Last Taken Type Acetaminophen 650 mg PO Q4HR PRN 08/23/17 08/23/17 Unknown History Apixaban [Eliquis] 5 mg PO BID 08/23/17 08/23/17 08/22/17 History Arformoterol Nebu [Brovana Nebu] 15 mcg IH Q12HR 08/23/17 08/23/17 08/22/17 History Ascorbic Acid 500 mg PO BID 08/23/17 08/23/17 08/22/17 History Bisacodyl 10 mg RC DAILY PRN 08/23/17 08/23/17 Unknown History Famotidine [Pepcid] 10 mg PO BID 08/23/17 08/23/17 08/22/17 History Magnesium Hydroxide [Milk of 30 ml PO Q4HR PRN 08/23/17 08/23/17 Unknown History Magnesia] Petrolatum,White [Vaseline Lip 5 gm TP Q2HR PRN 08/23/17 08/23/17 Unknown History Therapy] traMADol [Ultram] 50 mg PO Q6HR PRN 08/23/17 08/23/17 Unknown History ED Physical Exam - General Limitations: Altered Mental Status, Physical Limitation - Other Other exam information: General: Lethargic, cachectic Head exam: Atraumatic, normocephalic Eyes exam: Normal appearance ENT: Dry mucous membranes Neck exam: Normal inspection, full range of motion, no meningismus nontender Respiratory exam: Tachypnea clear to auscultation Cardiovascular: Tachycardic regular rhythm Abdomen: Soft, nondistended, right lower quadrant colostomy. Midline Surgical scar. Mild diffuse tenderness : pt presented with indwelling causey Extremity: Full range of motion normal inspection no deformity Back: Normal Inspection, full range of motion, no tenderness Neurologic: Lethargic, oriented to self only, no facial droop. weak but equal hand well cleaner and foot dorsiflexion Skin: Left hip pressure ulcer with necrosis. Sacral decubitus with pink tissue. No malodorous discharge ED Course Vital Signs 08/23/17 08/23/17 08/23/17 05:54 06:01 10:23 Temperature 97.3 F L Pulse Rate 123 H 94 H Respiratory 21 16 18 Rate Blood Pressure 81/50 Blood Pressure 102/58 [Left] O2 Sat by Pulse 95 99 Oximetry - Reevaluation(s) Reevaluation #1: 08/23/17 07:29 after 1 L of NS bp 116/80 HR 104 - Lab Data Result diagrams: 08/23/17 08:46 08/23/17 05:58 Lab Results 08/23/17 08/23/17 08/23/17 Range/Units 05:58 05:58 05:58 WBC 74.5 H* (4.5-11.0) K/mm3 RBC 3.93 (3.65-5.03) M/mm3 Hgb 11.1 (10.1-14.3) gm/dl Hct 36.1 (30.3-42.9) % MCV 92 (79-97) fl MCH 28 (28-32) pg MCHC 31 (30-34) % RDW 19.7 H (13.2-15.2) % Plt Count 524 H (140-440) K/mm3 Add Manual Diff Complete Total Counted 200 Seg Neutrophils % Hearing Aid Mechanic Seg Neuts % (Manual) 95.5 H (40.0-70.0) % Band Neutrophils % 3.0 % Lymphocytes % (Manual) 0 L (13.4-35.0) % Reactive Lymphs % (Man) 0 % Monocytes % (Manual) 1.0 (0.0-7.3) % Eosinophils % (Manual) 0 (0.0-4.3) % Basophils % (Manual) 0 (0.0-1.8) % Metamyelocytes % 0.5 % Myelocytes % 0 % Promyelocytes % 0 % Blast Cells % 0 % Nucleated RBC % 1.0 H (0.0-0.9) % Seg Neutrophils # Man 71.1 H (1.8-7.7) K/mm3 Band Neutrophils # 2.2 K/mm3 Lymphocytes # (Manual) 0.0 L (1.2-5.4) K/mm3 Abs React Lymphs (Man) 0.0 K/mm3 Monocytes # (Manual) 0.7 (0.0-0.8) K/mm3 Eosinophils # (Manual) 0.0 (0.0-0.4) K/mm3 Basophils # (Manual) 0.0 (0.0-0.1) K/mm3 Metamyelocytes # 0.4 K/mm3 Myelocytes # 0.0 K/mm3 Promyelocytes # 0.0 K/mm3 Blast Cells # 0.0 K/mm3 WBC Morphology Not Reportable Hypersegmented Neuts Not Reportable Hyposegmented Neuts Not Reportable Hypogranular Neuts Not Reportable Smudge Cells Not Reportable Toxic Granulation Not Reportable Toxic Vacuolation Not Reportable Dohle Bodies Not Reportable Pelger-Huet Anomaly Not Reportable Neisha Rods Not Reportable Platelet Estimate Consistent w auto Clumped Platelets Not Reportable Plt Clumps, EDTA Not Reportable Large Platelets Not Reportable Giant Platelets Not Reportable Platelet Satelliting Not Reportable Plt Morphology Comment Not Reportable RBC Morphology Not Reportable Dimorphic RBCs Not Reportable Polychromasia Not Reportable Hypochromasia Not Reportable Poikilocytosis Not Reportable Anisocytosis Not Reportable Microcytosis Not Reportable Macrocytosis Not Reportable Spherocytes Not Reportable Pappenheimer Bodies Not Reportable Sickle Cells Not Reportable Target Cells Few Tear Drop Cells Not Reportable Ovalocytes Not Reportable Helmet Cells Not Reportable [place] Bodies Not Reportable [place] Rings Not Reportable [place] Cells Not Reportable Bite Cells Not Reportable Crenated Cell Not Reportable Elliptocytes Not Reportable Acanthocytes (Spur) Not Reportable Rouleaux Not Reportable Hemoglobin C Crystals Not Reportable Schistocytes Few Malaria parasites Not Reportable Herve Bodies Not Reportable Hem Pathologist Commnt No PT (12.2-14.9) Sec. INR (0.87-1.13) APTT (24.2-36.6) Sec. POC ABG pH (7.35-7.45) POC ABG pCO2 (35-45) POC ABG pO2 (80-105) POC ABG HCO3 POC ABG Total CO2 POC ABG O2 Sat POC ABG Base Excess FiO2 % Sodium 126 L (137-145) mmol/L Potassium 4.0 (3.6-5.0) mmol/L Chloride 86.7 L (98-107) mmol/L Carbon Dioxide 10 L (22-30) mmol/L Anion Gap 33 mmol/L BUN 76 H (7-17) mg/dL Creatinine 3.5 H (0.7-1.2) mg/dL Estimated GFR 16 ml/min BUN/Creatinine Ratio 22 % Glucose 89 (65-100) mg/dL POC Glucose (70-105) Lactic Acid 2.50 H* (0.7-2.0) mmol/L Calcium 7.9 L (8.4-10.2) mg/dL Total Bilirubin 0.20 (0.1-1.2) mg/dL AST 46 H (5-40) units/L ALT 28 (7-56) units/L Alkaline Phosphatase 89 (35-129) units/L Total Creatine Kinase (30-135) units/L CK-MB (CK-2) (0.0-4.0) ng/mL CK-MB (CK-2) Rel Index (0-4) Troponin T (0.00-0.029) ng/mL NT-Pro-B Natriuret Pep (0-900) pg/mL Total Protein 5.7 L (6.3-8.2) g/dL Albumin 2.8 L (3.9-5) g/dL Albumin/Globulin Ratio 1.0 % Triglycerides (2-149) mg/dL Cholesterol (50-199) mg/dL LDL Cholesterol Direct (50-130) mg/dL HDL Cholesterol (40-59) mg/dL Cholesterol/HDL Ratio % Lipase 18 (13-60) units/L TSH (0.270-4.200) mlU/mL Free T4 (0.76-1.46) ng/dL Urine Color (Yellow) Urine Turbidity (Clear) Urine pH (5.0-7.0) Ur Specific Scalf (1.003-1.030) Urine Protein (Negative) mg/dL Urine Glucose (UA) (Negative) mg/dL Urine Ketones (Negative) mg/dL Urine Blood (Negative) Urine Nitrite (Negative) Urine Bilirubin (Negative) Urine Urobilinogen (<2.0) mg/dL Ur Leukocyte Esterase (Negative) Urine WBC (Auto) (0.0-6.0) /HPF Urine RBC (Auto) (0.0-6.0) /HPF Urine Bacteria (Auto) (Negative) /HPF 08/23/17 08/23/17 08/23/17 Range/Units 05:58 05:58 05:58 WBC (4.5-11.0) K/mm3 RBC (3.65-5.03) M/mm3 Hgb (10.1-14.3) gm/dl Hct (30.3-42.9) % MCV (79-97) fl MCH (28-32) pg MCHC (30-34) % RDW (13.2-15.2) % Plt Count (140-440) K/mm3 Add Manual Diff Total Counted Seg Neutrophils % Seg Neuts % (Manual) (40.0-70.0) % Band Neutrophils % % Lymphocytes % (Manual) (13.4-35.0) % Reactive Lymphs % (Man) % Monocytes % (Manual) (0.0-7.3) % Eosinophils % (Manual) (0.0-4.3) % Basophils % (Manual) (0.0-1.8) % Metamyelocytes % % Myelocytes % % Promyelocytes % % Blast Cells % % Nucleated RBC % (0.0-0.9) % Seg Neutrophils # Man (1.8-7.7) K/mm3 Band Neutrophils # K/mm3 Lymphocytes # (Manual) (1.2-5.4) K/mm3 Abs React Lymphs (Man) K/mm3 Monocytes # (Manual) (0.0-0.8) K/mm3 Eosinophils # (Manual) (0.0-0.4) K/mm3 Basophils # (Manual) (0.0-0.1) K/mm3 Metamyelocytes # K/mm3 Myelocytes # K/mm3 Promyelocytes # K/mm3 Blast Cells # K/mm3 WBC Morphology Hypersegmented Neuts Hyposegmented Neuts Hypogranular Neuts Smudge Cells Toxic Granulation Toxic Vacuolation Dohle Bodies Pelger-Huet Anomaly Neisha Rods Platelet Estimate Clumped Platelets Plt Clumps, EDTA Large Platelets Giant Platelets Platelet Satelliting Plt Morphology Comment RBC Morphology Dimorphic RBCs Polychromasia Hypochromasia Poikilocytosis Anisocytosis Microcytosis Macrocytosis Spherocytes Pappenheimer Bodies Sickle Cells Target Cells Tear Drop Cells Ovalocytes Helmet Cells [place] Bodies [place] Rings [place] Cells Bite Cells Crenated Cell Elliptocytes Acanthocytes (Spur) Rouleaux Hemoglobin C Crystals Schistocytes Malaria parasites Herve Bodies Hem Pathologist Commnt PT (12.2-14.9) Sec. INR (0.87-1.13) APTT (24.2-36.6) Sec. POC ABG pH (7.35-7.45) POC ABG pCO2 (35-45) POC ABG pO2 (80-105) POC ABG HCO3 POC ABG Total CO2 POC ABG O2 Sat POC ABG Base Excess FiO2 % Sodium (137-145) mmol/L Potassium (3.6-5.0) mmol/L Chloride (98-107) mmol/L Carbon Dioxide (22-30) mmol/L Anion Gap mmol/L BUN (7-17) mg/dL Creatinine (0.7-1.2) mg/dL Estimated GFR ml/min BUN/Creatinine Ratio % Glucose (65-100) mg/dL POC Glucose (70-105) Lactic Acid (0.7-2.0) mmol/L Calcium (8.4-10.2) mg/dL Total Bilirubin (0.1-1.2) mg/dL AST (5-40) units/L ALT (7-56) units/L Alkaline Phosphatase (35-129) units/L Total Creatine Kinase (30-135) units/L CK-MB (CK-2) (0.0-4.0) ng/mL CK-MB (CK-2) Rel Index (0-4) Troponin T 0.057 H (0.00-0.029) ng/mL NT-Pro-B Natriuret Pep 8480 H (0-900) pg/mL Total Protein (6.3-8.2) g/dL Albumin (3.9-5) g/dL Albumin/Globulin Ratio % Triglycerides 76 (2-149) mg/dL Cholesterol 115 (50-199) mg/dL LDL Cholesterol Direct 48 L (50-130) mg/dL HDL Cholesterol 52 (40-59) mg/dL Cholesterol/HDL Ratio 2.21 % Lipase (13-60) units/L TSH 4.110 (0.270-4.200) mlU/mL Free T4 1.04 (0.76-1.46) ng/dL Urine Color (Yellow) Urine Turbidity (Clear) Urine pH (5.0-7.0) Ur Specific Scalf (1.003-1.030) Urine Protein (Negative) mg/dL Urine Glucose (UA) (Negative) mg/dL Urine Ketones (Negative) mg/dL Urine Blood (Negative) Urine Nitrite (Negative) Urine Bilirubin (Negative) Urine Urobilinogen (<2.0) mg/dL Ur Leukocyte Esterase (Negative) Urine WBC (Auto) (0.0-6.0) /HPF Urine RBC (Auto) (0.0-6.0) /HPF Urine Bacteria (Auto) (Negative) /HPF 08/23/17 08/23/17 08/23/17 Range/Units 05:58 05:58 06:58 WBC (4.5-11.0) K/mm3 RBC (3.65-5.03) M/mm3 Hgb (10.1-14.3) gm/dl Hct (30.3-42.9) % MCV (79-97) fl MCH (28-32) pg MCHC (30-34) % RDW (13.2-15.2) % Plt Count (140-440) K/mm3 Add Manual Diff Total Counted Seg Neutrophils % Seg Neuts % (Manual) (40.0-70.0) % Band Neutrophils % % Lymphocytes % (Manual) (13.4-35.0) % Reactive Lymphs % (Man) % Monocytes % (Manual) (0.0-7.3) % Eosinophils % (Manual) (0.0-4.3) % Basophils % (Manual) (0.0-1.8) % Metamyelocytes % % Myelocytes % % Promyelocytes % % Blast Cells % % Nucleated RBC % (0.0-0.9) % Seg Neutrophils # Man (1.8-7.7) K/mm3 Band Neutrophils # K/mm3 Lymphocytes # (Manual) (1.2-5.4) K/mm3 Abs React Lymphs (Man) K/mm3 Monocytes # (Manual) (0.0-0.8) K/mm3 Eosinophils # (Manual) (0.0-0.4) K/mm3 Basophils # (Manual) (0.0-0.1) K/mm3 Metamyelocytes # K/mm3 Myelocytes # K/mm3 Promyelocytes # K/mm3 Blast Cells # K/mm3 WBC Morphology Hypersegmented Neuts Hyposegmented Neuts Hypogranular Neuts Smudge Cells Toxic Granulation Toxic Vacuolation Dohle Bodies Pelger-Huet Anomaly Neisha Rods Platelet Estimate Clumped Platelets Plt Clumps, EDTA Large Platelets Giant Platelets Platelet Satelliting Plt Morphology Comment RBC Morphology Dimorphic RBCs Polychromasia Hypochromasia Poikilocytosis Anisocytosis Microcytosis Macrocytosis Spherocytes Pappenheimer Bodies Sickle Cells Target Cells Tear Drop Cells Ovalocytes Helmet Cells [place] Bodies [place] Rings [place] Cells Bite Cells Crenated Cell Elliptocytes Acanthocytes (Spur) Rouleaux Hemoglobin C Crystals Schistocytes Malaria parasites Herve Bodies Hem Pathologist Commnt PT 25.5 H (12.2-14.9) Sec. INR 2.16 H (0.87-1.13) APTT 46.4 H (24.2-36.6) Sec. POC ABG pH (7.35-7.45) POC ABG pCO2 (35-45) POC ABG pO2 (80-105) POC ABG HCO3 POC ABG Total CO2 POC ABG O2 Sat POC ABG Base Excess FiO2 % Sodium (137-145) mmol/L Potassium (3.6-5.0) mmol/L Chloride (98-107) mmol/L Carbon Dioxide (22-30) mmol/L Anion Gap mmol/L BUN (7-17) mg/dL Creatinine (0.7-1.2) mg/dL Estimated GFR ml/min BUN/Creatinine Ratio % Glucose (65-100) mg/dL POC Glucose 97 (70-105) Lactic Acid (0.7-2.0) mmol/L Calcium (8.4-10.2) mg/dL Total Bilirubin (0.1-1.2) mg/dL AST (5-40) units/L ALT (7-56) units/L Alkaline Phosphatase (35-129) units/L Total Creatine Kinase 52 (30-135) units/L CK-MB (CK-2) 5.2 H (0.0-4.0) ng/mL CK-MB (CK-2) Rel Index 10.0 H (0-4) Troponin T (0.00-0.029) ng/mL NT-Pro-B Natriuret Pep (0-900) pg/mL Total Protein (6.3-8.2) g/dL Albumin (3.9-5) g/dL Albumin/Globulin Ratio % Triglycerides (2-149) mg/dL Cholesterol (50-199) mg/dL LDL Cholesterol Direct (50-130) mg/dL HDL Cholesterol (40-59) mg/dL Cholesterol/HDL Ratio % Lipase (13-60) units/L TSH (0.270-4.200) mlU/mL Free T4 (0.76-1.46) ng/dL Urine Color (Yellow) Urine Turbidity (Clear) Urine pH (5.0-7.0) Ur Specific Scalf (1.003-1.030) Urine Protein (Negative) mg/dL Urine Glucose (UA) (Negative) mg/dL Urine Ketones (Negative) mg/dL Urine Blood (Negative) Urine Nitrite (Negative) Urine Bilirubin (Negative) Urine Urobilinogen (<2.0) mg/dL Ur Leukocyte Esterase (Negative) Urine WBC (Auto) (0.0-6.0) /HPF Urine RBC (Auto) (0.0-6.0) /HPF Urine Bacteria (Auto) (Negative) /HPF 08/23/17 08/23/17 08/23/17 Range/Units 07:19 08:32 08:46 WBC (4.5-11.0) K/mm3 RBC (3.65-5.03) M/mm3 Hgb (10.1-14.3) gm/dl Hct (30.3-42.9) % MCV (79-97) fl MCH (28-32) pg MCHC (30-34) % RDW (13.2-15.2) % Plt Count (140-440) K/mm3 Add Manual Diff Total Counted Seg Neutrophils % Seg Neuts % (Manual) (40.0-70.0) % Band Neutrophils % % Lymphocytes % (Manual) (13.4-35.0) % Reactive Lymphs % (Man) % Monocytes % (Manual) (0.0-7.3) % Eosinophils % (Manual) (0.0-4.3) % Basophils % (Manual) (0.0-1.8) % Metamyelocytes % % Myelocytes % % Promyelocytes % % Blast Cells % % Nucleated RBC % (0.0-0.9) % Seg Neutrophils # Man (1.8-7.7) K/mm3 Band Neutrophils # K/mm3 Lymphocytes # (Manual) (1.2-5.4) K/mm3 Abs React Lymphs (Man) K/mm3 Monocytes # (Manual) (0.0-0.8) K/mm3 Eosinophils # (Manual) (0.0-0.4) K/mm3 Basophils # (Manual) (0.0-0.1) K/mm3 Metamyelocytes # K/mm3 Myelocytes # K/mm3 Promyelocytes # K/mm3 Blast Cells # K/mm3 WBC Morphology Hypersegmented Neuts Hyposegmented Neuts Hypogranular Neuts Smudge Cells Toxic Granulation Toxic Vacuolation Dohle Bodies Pelger-Huet Anomaly Neisha Rods Platelet Estimate Clumped Platelets Plt Clumps, EDTA Large Platelets Giant Platelets Platelet Satelliting Plt Morphology Comment RBC Morphology Dimorphic RBCs Polychromasia Hypochromasia Poikilocytosis Anisocytosis Microcytosis Macrocytosis Spherocytes Pappenheimer Bodies Sickle Cells Target Cells Tear Drop Cells Ovalocytes Helmet Cells [place] Bodies [place] Rings [place] Cells Bite Cells Crenated Cell Elliptocytes Acanthocytes (Spur) Rouleaux Hemoglobin C Crystals Schistocytes Malaria parasites Herve Bodies Hem Pathologist Commnt PT (12.2-14.9) Sec. INR (0.87-1.13) APTT (24.2-36.6) Sec. POC ABG pH 7.101 L (7.35-7.45) POC ABG pCO2 39.1 (35-45) POC ABG pO2 104 (80-105) POC ABG HCO3 12.2 POC ABG Total CO2 13 POC ABG O2 Sat 95 POC ABG Base Excess -17 FiO2 28 % Sodium (137-145) mmol/L Potassium (3.6-5.0) mmol/L Chloride (98-107) mmol/L Carbon Dioxide (22-30) mmol/L Anion Gap mmol/L BUN (7-17) mg/dL Creatinine (0.7-1.2) mg/dL Estimated GFR ml/min BUN/Creatinine Ratio % Glucose (65-100) mg/dL POC Glucose (70-105) Lactic Acid 1.10 (0.7-2.0) mmol/L Calcium (8.4-10.2) mg/dL Total Bilirubin (0.1-1.2) mg/dL AST (5-40) units/L ALT (7-56) units/L Alkaline Phosphatase (35-129) units/L Total Creatine Kinase (30-135) units/L CK-MB (CK-2) (0.0-4.0) ng/mL CK-MB (CK-2) Rel Index (0-4) Troponin T (0.00-0.029) ng/mL NT-Pro-B Natriuret Pep (0-900) pg/mL Total Protein (6.3-8.2) g/dL Albumin (3.9-5) g/dL Albumin/Globulin Ratio % Triglycerides (2-149) mg/dL Cholesterol (50-199) mg/dL LDL Cholesterol Direct (50-130) mg/dL HDL Cholesterol (40-59) mg/dL Cholesterol/HDL Ratio % Lipase (13-60) units/L TSH (0.270-4.200) mlU/mL Free T4 (0.76-1.46) ng/dL Urine Color Yellow (Yellow) Urine Turbidity Turbid (Clear) Urine pH 5.0 (5.0-7.0) Ur Specific Scalf 1.013 (1.003-1.030) Urine Protein 100 mg/dl (Negative) mg/dL Urine Glucose (UA) Neg (Negative) mg/dL Urine Ketones Neg (Negative) mg/dL Urine Blood Mod (Negative) Urine Nitrite Neg (Negative) Urine Bilirubin Neg (Negative) Urine Urobilinogen < 2.0 (<2.0) mg/dL Ur Leukocyte Esterase Mod (Negative) Urine WBC (Auto) > 182.0 H (0.0-6.0) /HPF Urine RBC (Auto) < 1.0 (0.0-6.0) /HPF Urine Bacteria (Auto) 3+ (Negative) /HPF 08/23/17 Range/Units 08:46 WBC 68.8 H* (4.5-11.0) K/mm3 RBC 3.02 L (3.65-5.03) M/mm3 Hgb 8.8 L (10.1-14.3) gm/dl Hct 27.4 L D (30.3-42.9) % MCV 91 (79-97) fl MCH 29 (28-32) pg MCHC 32 (30-34) % RDW 19.4 H (13.2-15.2) % Plt Count 385 (140-440) K/mm3 Add Manual Diff Total Counted Seg Neutrophils % Seg Neuts % (Manual) (40.0-70.0) % Band Neutrophils % % Lymphocytes % (Manual) (13.4-35.0) % Reactive Lymphs % (Man) % Monocytes % (Manual) (0.0-7.3) % Eosinophils % (Manual) (0.0-4.3) % Basophils % (Manual) (0.0-1.8) % Metamyelocytes % % Myelocytes % % Promyelocytes % % Blast Cells % % Nucleated RBC % (0.0-0.9) % Seg Neutrophils # Man (1.8-7.7) K/mm3 Band Neutrophils # K/mm3 Lymphocytes # (Manual) (1.2-5.4) K/mm3 Abs React Lymphs (Man) K/mm3 Monocytes # (Manual) (0.0-0.8) K/mm3 Eosinophils # (Manual) (0.0-0.4) K/mm3 Basophils # (Manual) (0.0-0.1) K/mm3 Metamyelocytes # K/mm3 Myelocytes # K/mm3 Promyelocytes # K/mm3 Blast Cells # K/mm3 WBC Morphology Hypersegmented Neuts Hyposegmented Neuts Hypogranular Neuts Smudge Cells Toxic Granulation Toxic Vacuolation Dohle Bodies Pelger-Huet Anomaly Neisha Rods Platelet Estimate Clumped Platelets Plt Clumps, EDTA Large Platelets Giant Platelets Platelet Satelliting Plt Morphology Comment RBC Morphology Dimorphic RBCs Polychromasia Hypochromasia Poikilocytosis Anisocytosis Microcytosis Macrocytosis Spherocytes Pappenheimer Bodies Sickle Cells Target Cells Tear Drop Cells Ovalocytes Helmet Cells [place] Bodies [place] Rings [place] Cells Bite Cells Crenated Cell Elliptocytes Acanthocytes (Spur) Rouleaux Hemoglobin C Crystals Schistocytes Malaria parasites Herve Bodies Hem Pathologist Commnt PT (12.2-14.9) Sec. INR (0.87-1.13) APTT (24.2-36.6) Sec. POC ABG pH (7.35-7.45) POC ABG pCO2 (35-45) POC ABG pO2 (80-105) POC ABG HCO3 POC ABG Total CO2 POC ABG O2 Sat POC ABG Base Excess FiO2 % Sodium (137-145) mmol/L Potassium (3.6-5.0) mmol/L Chloride (98-107) mmol/L Carbon Dioxide (22-30) mmol/L Anion Gap mmol/L BUN (7-17) mg/dL Creatinine (0.7-1.2) mg/dL Estimated GFR ml/min BUN/Creatinine Ratio % Glucose (65-100) mg/dL POC Glucose (70-105) Lactic Acid (0.7-2.0) mmol/L Calcium (8.4-10.2) mg/dL Total Bilirubin (0.1-1.2) mg/dL AST (5-40) units/L ALT (7-56) units/L Alkaline Phosphatase (35-129) units/L Total Creatine Kinase (30-135) units/L CK-MB (CK-2) (0.0-4.0) ng/mL CK-MB (CK-2) Rel Index (0-4) Troponin T (0.00-0.029) ng/mL NT-Pro-B Natriuret Pep (0-900) pg/mL Total Protein (6.3-8.2) g/dL Albumin (3.9-5) g/dL Albumin/Globulin Ratio % Triglycerides (2-149) mg/dL Cholesterol (50-199) mg/dL LDL Cholesterol Direct (50-130) mg/dL HDL Cholesterol (40-59) mg/dL Cholesterol/HDL Ratio % Lipase (13-60) units/L TSH (0.270-4.200) mlU/mL Free T4 (0.76-1.46) ng/dL Urine Color (Yellow) Urine Turbidity (Clear) Urine pH (5.0-7.0) Ur Specific Scalf (1.003-1.030) Urine Protein (Negative) mg/dL Urine Glucose (UA) (Negative) mg/dL Urine Ketones (Negative) mg/dL Urine Blood (Negative) Urine Nitrite (Negative) Urine Bilirubin (Negative) Urine Urobilinogen (<2.0) mg/dL Ur Leukocyte Esterase (Negative) Urine WBC (Auto) (0.0-6.0) /HPF Urine RBC (Auto) (0.0-6.0) /HPF Urine Bacteria (Auto) (Negative) /HPF - EKG Data -: EKG Interpreted by Me (MILLER, MITA) EKG shows normal: sinus rhythm, ST-T waves (lat t inv) Rate: tachycardia (125) When compared to previous EKG there are: changes noted (new lat t wave inv) - Radiology Data Radiology results: report reviewed (cxr: copd, naf read by radiologist) - Medical Decision Making Sepsis Likely cause of alteration in mental status Associated high anion gap acidosis Source likely urine is grossly purulent Chest x-ray unremarkable Blood pressure improved with IV fluid Patient covered with vancomycin and Zosyn Blood and urine cultures pending Patient receiving active warming hypothermia Acute renal sufficiency Likely secondary to dehydration and poor by mouth intake IV fluids and progress Elevated WBC Secondary to sepsis 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 Then a hand written and note on this form dated 07/11/2017 that patient does not want to be intubated or placed on a ventilator. - Differential Diagnosis infected ulcer, UTI, sepsis, Critical Care Time: No Critical care attestation.: If time is entered above; I have spent that time in minutes in the direct care of this critically ill patient, excluding procedure time. ED Disposition Clinical Impression: Acute renal failure, Decubitus ulcer, stage IV, Altered mental status, Metabolic acidosis, Sepsis, DVT (deep venous thrombosis), COPD (chronic obstructive pulmonary disease), Hyponatremia, Elevated lactic acid level, Leukocytosis, Colostomy in place, UTI (urinary tract infection) Disposition: OP ADMIT IP TO THIS HOSP Is pt being admited?: Yes Condition: Stable Time of Disposition: 07:28 ([facility])
[2017-08-23] MEDS ORDERED: VANCOMYCIN PHARMACY TO DOSE IV SCH ×2 (07:00→09:00)
[2017-08-23] MEDS ORDERED: ZOSYN/NS 4.5GM/100ML 4.5 GM/100 ML VIAL IV SCH ×2 (07:00→14:00)
[2017-08-23 07:03] LABS: Albumin 2.8 g/dL (3.9-5); Calcium 7.9 mg/dL (8.4-10.2)
--- NOTE | 2017-08-23 07:09 | XRay Report ---
FINAL REPORT EXAM: XR CHEST 1V AP HISTORY: sepsis TECHNIQUE: A portable supine view of the chest was obtained and compared to the study of 07/28/2017. FINDINGS: The lungs are hyper inflated. There are no infiltrates or congestion. The heart size is normal. Pleural fluid is not seen. The bones and soft tissues do not show any acute changes. IMPRESSION: COPD. No acute process in the chest.
[2017-08-23 07:21] LABS: INR 2.16 (0.87-1.13)
[2017-08-23 07:22] LABS: Partial Thromboplastin Time 46.4 Sec. (24.2-36.6)
[2017-08-23 07:32] LABS: Chol/HDL Ratio 2.21 %
--- NOTE | 2017-08-23 08:26 | History and Physical Report ---
History of Present Illness Date of examination: 08/23/17 Date of admission: 08/23/17 Chief complaint: Altered mental status History of present illness: Patient is 62 yo sent in from skilled nursing. She has history of dvt, CHF, COPD on home oxygen, Chronic kidney disease, follows with Nephrology. She was sent in for altered mental status, somnolence. Patient cannot provide any history since she is very somnolent. Minimal history obtained from skilled nursing records and hospital medical records. She has not been eating or drinking much and is very weak, and has been very sleepy past few days. In Emergency Department, she is Lethargic. labs show marked leukocytosis with WBC 74.5, Creatinine 3.5. She diagnosed with sepsis, UTI, acute on chronic kidney disease. Will admit. Past History Past Medical History: COPD, DVT, heart failure, hyperlipidemia, renal failure ( chronic kidney disease), other (Sepsis,septic shock, Leukocytosis,hyponatremia, chronic resp failure on home Oxygen) Past Surgical History: hysterectomy, bowel surgery (partial colectomy) Social history: full code, other (Lives in SNF). denies: smoking, alcohol abuse Family history: hypertension Medications and Allergies Allergies Allergy/AdvReac Type Severity Reaction Status Date / Time No Known Allergies Allergy Verified 05/23/15 12:02 Home Medications Medication Instructions Recorded Confirmed Last Taken Type Acetaminophen 650 mg PO Q4HR PRN 08/23/17 08/23/17 Unknown History Apixaban [Eliquis] 5 mg PO BID 08/23/17 08/23/17 08/22/17 History Arformoterol Nebu [Brovana Nebu] 15 mcg IH Q12HR 08/23/17 08/23/17 08/22/17 History Ascorbic Acid 500 mg PO BID 08/23/17 08/23/17 08/22/17 History Bisacodyl 10 mg RC DAILY PRN 08/23/17 08/23/17 Unknown History Famotidine [Pepcid] 10 mg PO BID 08/23/17 08/23/17 08/22/17 History Magnesium Hydroxide [Milk of 30 ml PO Q4HR PRN 08/23/17 08/23/17 Unknown History Magnesia] Petrolatum,White [Vaseline Lip 5 gm TP Q2HR PRN 08/23/17 08/23/17 Unknown History Therapy] traMADol [Ultram] 50 mg PO Q6HR PRN 08/23/17 08/23/17 Unknown History Active Meds: Active Medications Vancomycin HCl (Vancomycin Pharmacy To Dose) 1 each IV PKCONSULT [facility] Review of Systems ROS unobtainable: due to mental status Exam - Physical Exam Narrative exam: Gen appearance: Not in acute distress, lying in bed, emaciated HEENT:Normocephalic,atraumatic Lungs: Clear to auscultation bilaterally, no crackles , no wheeze Heart: S1 and S2 regular, no murmurs, rubs or gallop Abdomen: soft, non tender, non distended, normal bowel sounds Ext: No edema, no clubbing, no cyanosis Neuro: Lethargic, follows commands, no focal signs sacrum:chronic decub ulcers Psych: Normal mood - Constitutional Vitals: Temp Pulse Resp BP Pulse Ox 123 H 16 81/50 95 08/23/17 05:54 08/23/17 06:01 08/23/17 05:54 08/23/17 06:01 Results - Labs CBC & Chem 7: 08/24/17 07:33 08/24/17 07:33 Labs: Abnormal lab results 08/23/17 08/23/17 08/23/17 Range/Units 05:58 05:58 05:58 WBC 74.5 H* (4.5-11.0) K/mm3 RDW 19.7 H (13.2-15.2) % Plt Count 524 H (140-440) K/mm3 PT (12.2-14.9) Sec. INR (0.87-1.13) APTT (24.2-36.6) Sec. Sodium 126 L (137-145) mmol/L Chloride 86.7 L (98-107) mmol/L Carbon Dioxide 10 L (22-30) mmol/L BUN 76 H (7-17) mg/dL Creatinine 3.5 H (0.7-1.2) mg/dL Lactic Acid 2.50 H* (0.7-2.0) mmol/L Calcium 7.9 L (8.4-10.2) mg/dL AST 46 H (5-40) units/L Troponin T (0.00-0.029) ng/mL NT-Pro-B Natriuret Pep (0-900) pg/mL Total Protein 5.7 L (6.3-8.2) g/dL Albumin 2.8 L (3.9-5) g/dL LDL Cholesterol Direct (50-130) mg/dL 08/23/17 08/23/17 Range/Units 05:58 05:58 WBC (4.5-11.0) K/mm3 RDW (13.2-15.2) % Plt Count (140-440) K/mm3 PT 25.5 H (12.2-14.9) Sec. INR 2.16 H (0.87-1.13) APTT 46.4 H (24.2-36.6) Sec. Sodium (137-145) mmol/L Chloride (98-107) mmol/L Carbon Dioxide (22-30) mmol/L BUN (7-17) mg/dL Creatinine (0.7-1.2) mg/dL Lactic Acid (0.7-2.0) mmol/L Calcium (8.4-10.2) mg/dL AST (5-40) units/L Troponin T 0.057 H (0.00-0.029) ng/mL NT-Pro-B Natriuret Pep 8480 H (0-900) pg/mL Total Protein (6.3-8.2) g/dL Albumin (3.9-5) g/dL LDL Cholesterol Direct 48 L (50-130) mg/dL Assessment and Plan Sepsis. Will admit to telemetry. Blood cultures x 2 ordered Use sepsis protocol, Started Zosyn, Levaquin, Vanco, Consult ID Physician Urinary tract infection. She had indwelling catheter. Urine cultures ordered. Started on iv antibiotics Septic shock. Give ivf bolus 4 liters. Cont IVF to keep MAP>65 Decubitus ulcers. Consulyt wound care Nurse COPD. On home Oxygen. Consult Pulmonology. Chronic CHF. Acute on CKD. Creatinine 3.5 today, higher than baseline. 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 WBC 74. Will repeat. Consult Dr. Garza, heme/Onc. She had history of marked leukocytosis before and was supposed to follow as outpatient to work up for leukemia. Metabolic acidosis due to sepsis, renal failure Hyponatremia. Started iv fluids History of DVT. Continue Eliqios. DVT prophylaxis. Patient on Eliquis. Full code status. I discussed with patient and son at bedside. Prognosis guarded.
[2017-08-23] MEDS ORDERED: ZOFRAN IV PRN (08:28)
[2017-08-23] MEDS ORDERED: DULCOLAX PR PRN ×2 (08:28→13:06)
[2017-08-23] MEDS ORDERED: MILK OF MAGNESIA PO PRN ×2 (08:28→13:06)
[2017-08-23] MEDS ORDERED: NACL 0.9% 1000 ML 2,000 ML IV ONE (08:28)
[2017-08-23 08:54] LABS: Bacteria,Urine 3+ /HPF (Negative); Bilirubin,Urine NEG (Negative); Blood,Urine MOD (Negative); Color,Urine Yellow (Yellow); Urobilinogen,Urine < 2.0 mg/dL (<2.0)
--- NOTE | 2017-08-23 08:57 | Consultation ---
History of Present Illness - Reason for Consult Consult date: 08/23/17 acute renal failure, hyponatremia, metabolic acidosis - History of Present Illness The patient is a 62-year-old AAF with a medical history significant for CHF, COPD on home oxygen, extensive bilateral DVT currently on Eliquis, Hypertension , CKD stage 3, HLD, Chronic decubitus ulcers, s/p colostomy and emaciation presented to the ER from [place] with complaints of alteration in mental status. Patient is known to our service and was seen in our office yesterday. She was treated for LUIS during the last admission. Patient's appetite has been poor with decreased PO intake for the past few week. She was found lethargic and less alert than her baseline by the intermediate staff. Unable to obtain any history from patient at this time. Currently she is hypotensive on Levophed, intubated on the vent and received IV fluid boluses. Labs are significant for LUIS, anion gap metabolic acidosis and leukocytosis. Past History Past Medical History: COPD, hyperlipidemia, other (Sepsis,septic shock, Leukocytosis,hyponatremia) Past Surgical History: hysterectomy, bowel surgery (partial colectomy) Social history: full code, other (Lives in SNF). denies: smoking, alcohol abuse Family history: hypertension Medications and Allergies Allergies Allergy/AdvReac Type Severity Reaction Status Date / Time No Known Allergies Allergy Verified 05/23/15 12:02 Home Medications Medication Instructions Recorded Confirmed Last Taken Type Acetaminophen 650 mg PO Q4HR PRN 08/23/17 08/23/17 Unknown History Apixaban [Eliquis] 5 mg PO BID 08/23/17 08/23/17 08/22/17 History Arformoterol Nebu [Brovana Nebu] 15 mcg IH Q12HR 08/23/17 08/23/17 08/22/17 History Ascorbic Acid 500 mg PO BID 08/23/17 08/23/17 08/22/17 History Bisacodyl 10 mg RC DAILY PRN 08/23/17 08/23/17 Unknown History Famotidine [Pepcid] 10 mg PO BID 08/23/17 08/23/17 08/22/17 History Magnesium Hydroxide [Milk of 30 ml PO Q4HR PRN 08/23/17 08/23/17 Unknown History Magnesia] Petrolatum,White [Vaseline Lip 5 gm TP Q2HR PRN 08/23/17 08/23/17 Unknown History Therapy] traMADol [Ultram] 50 mg PO Q6HR PRN 08/23/17 08/23/17 Unknown History Active Meds: Active Medications Acetaminophen (Tylenol) 650 mg PO Q4H PRN PRN Reason: Pain MILD(1-3)/Fever >100.5/KHOURY Bisacodyl (Dulcolax) 10 mg CA QDAY PRN PRN Reason: Constipation unrelieved by MOM Sodium Chloride (Nacl 0.9% 1000 Ml) 2,000 mls @ 999 mls/hr IV BOLUS ONE Stop: 08/23/17 10:28 Levofloxacin/Dextrose (Levaquin 750mg/150ml) 750 mg in 150 mls @ 100 mls/hr IV Q24HR [facility]; Protocol Piperacillin Sod/Tazobactam Sod (Zosyn/Ns 4.5gm/100ml) 4.5 gm in 100 mls @ 200 mls/hr IV Q8HR [facility]; Protocol Magnesium Hydroxide (Milk Of Magnesia) 30 ml PO Q4H PRN PRN Reason: Constipation Ondansetron HCl (Zofran) 4 mg IV Q8H PRN PRN Reason: N/V unrelieved by Reglan Vancomycin HCl (Vancomycin Pharmacy To Dose) 1 each IV PKCONSULT [facility] Vancomycin HCl (Vancomycin Pharmacy To Dose) 1 each IV PKCONSULT [facility] Vancomycin HCl (Vancomycin Vial) 750 mg 20 mg/kg (750 mg) IV ONCE ONE; Protocol Stop: 08/23/17 08:41 Review of Systems ROS unobtainable: due to mental status Exam - Vital Signs Vital signs: Vital Signs Pulse Resp BP 123 H 21 81/50 08/23/17 05:54 08/23/17 05:54 08/23/17 05:54 - General Appearance General appearance: well-developed, appears stated age, cachectic, frail EENT: ATNC, PERRL, hearing intact Neck: Present: neck supple, trachea midline Respiratory: Clear to Ascultation Heart: regular, S1S2, no murmurs Gastrointestinal: Present: normoactive bowel sounds, other (ostomy noted). Absent: tenderness Integumentary: no rash, ulcer (sacral) Neurologic: other (barely able to follow any command) Musculoskeletal: Present: other (no edema) Results - Lab Results 08/23/17 08:46 08/23/17 15:49 Most recent lab results Calcium 7.9 mg/dL (8.4-10.2) L 08/23/17 05:58 - Image Kidney/bladder ultrasound: report reviewed Assessment and Plan 1. Acute kidney injury: LUIS superimposed on CKD stage 3 in the setting of sepsis / shock. IV fluid bolus followed by maintenance IV fluids. Monitor renal function . Renal prognosis is guarded. 2. Metabolic acidosis: Continue IV fluids and monitor acid-base status. Elevated lactate level noted. Start on Bicarbonate drip. 3. Hyponatremia: Monitor. 4. Hypotension: Continue IV fluids. BP is improving. 5. Suspected Urosepsis. D/w her son at the bedside.
[2017-08-23 09:00] LABS: RBC,Urine < 1.0 /HPF (0.0-6.0); WBC,Urine > 182.0 /HPF (0.0-6.0)
[2017-08-23 09:03] LABS: Hematocrit 27.4 % (30.3-42.9); Hemoglobin 8.8 gm/dl (10.1-14.3); Mean Corpuscular HGB Conc 32 % (30-34); Mean Corpuscular Hemoglobin 29 pg (28-32); Mean Corpuscular Volume 91 fl (79-97); Platelet Count 385 K/mm3 (140-440); Red Blood Count 3.02 M/mm3 (3.65-5.03); Red Cell Distribution Width 19.4 % (13.2-15.2)
[2017-08-23] MEDS ORDERED: SODIUM BICARBONATE 150 MEQ in D5W 1,000 ML IV ONE (09:05)
[2017-08-23] MEDS ORDERED: LEVAQUIN 750MG/150ML 750 MG/150 ML BAG IV ONE ×2 (10:00)
[2017-08-23] MEDS ORDERED: LEVAQUIN 750MG/150ML 750 MG/150 ML BAG IV SCH (10:00)
[2017-08-23 10:35] LABS: Band Neutrophils # (Manual) 2.2 K/mm3; Basophils % (Manual) 0 % (0.0-1.8); Eosinophils % (Manual) 0 % (0.0-4.3); Total Cells Counted 200
[2017-08-23 10:36] LABS: Schistocytes Few; Target Cells Few
[2017-08-23 10:38] LABS: Platelet Estimate Consistent w Auto
[2017-08-23 10:46] LABS: Creatine Kinase MB 5.2 ng/mL (0.0-4.0)
--- NOTE | 2017-08-23 10:54 | Ultrasound Report ---
Renal sonogram: History: Acute renal failure. Findings: Right kidney 9.7 x 2.7 x 5.2 cm. Cortical thickness 1.1 cm. Mildly echogenic kidney. There is mild dilatation noted of intrarenal collecting system. Left kidney 10 point 4 x 4 by 4.2 cm. Cortical thickness 1.4 cm. Mildly echogenic kidney. No mass. No hydronephrosis. Bladder not visualized. Patient has in situ Castillo catheter. Impression: Mild dilatation of intrarenal collecting system right kidney.
[2017-08-23] MEDS ORDERED: ACETAMINOPHEN 650 MG PO PRN (13:06)
[2017-08-23] MEDS ORDERED: VASELINE LIP THERAPY TP PRN (13:06)
--- NOTE | 2017-08-23 13:49 | Consultation ---
History of Present Illness - Reason for Consult Consult date: 08/23/17 elevated white count - History of Present Illness 62 yo patient who lives in a assisted admit with presumptive diagnosis of urosepsis. She has markedly elevated white count with left shift. this is thought to be leukemoid and reactive in nature. In addition she has acute renal failure and low sodium.In addition, patient has a hx of DVT and is currently on Eliquis. She is noted to be acidotic. Patient responds to voice but is not verbal. With correction of serum sodium and uremia, hopefully mental status will improve. Patient appears to be profoundly dehydrated, and hgb appears to have dropped with hydration. Expecting white count to decrease with antibiotic and hydration if it does not, consider workup for myeloproliferative disorder. Recommend, 1. Continue IV abx and aggressive hydration as you are doing. 2. If renal function does not rapidly improve recommend holding ELIQUIS 3. Continued to monitor serum sodium Past History Past Medical History: COPD, hyperlipidemia, renal failure, other (Sepsis,septic shock, Leukocytosis,hyponatremia) Past Surgical History: hysterectomy, bowel surgery (partial colectomy) Social history: full code, other (Lives in SNF). denies: smoking, alcohol abuse Family history: hypertension Medications and Allergies Allergies Allergy/AdvReac Type Severity Reaction Status Date / Time No Known Allergies Allergy Verified 05/23/15 12:02 Home Medications Medication Instructions Recorded Confirmed Last Taken Type Acetaminophen 650 mg PO Q4HR PRN 08/23/17 08/23/17 Unknown History Apixaban [Eliquis] 5 mg PO BID 08/23/17 08/23/17 08/22/17 History Arformoterol Nebu [Brovana Nebu] 15 mcg IH Q12HR 08/23/17 08/23/17 08/22/17 History Ascorbic Acid 500 mg PO BID 08/23/17 08/23/17 08/22/17 History Bisacodyl 10 mg RC DAILY PRN 08/23/17 08/23/17 Unknown History Famotidine [Pepcid] 10 mg PO BID 08/23/17 08/23/17 08/22/17 History Magnesium Hydroxide [Milk of 30 ml PO Q4HR PRN 08/23/17 08/23/17 Unknown History Magnesia] Petrolatum,White [Vaseline Lip 5 gm TP Q2HR PRN 08/23/17 08/23/17 Unknown History Therapy] traMADol [Ultram] 50 mg PO Q6HR PRN 08/23/17 08/23/17 Unknown History Active Meds: Active Medications Acetaminophen (Tylenol) 650 mg PO Q4H PRN PRN Reason: Pain MILD(1-3)/Fever >100.5/KHOURY Apixaban (Eliquis) 5 mg PO BID [facility]; Protocol Ascorbic Acid (Vitamin C) 500 mg PO BID [facility] Bisacodyl (Dulcolax) 10 mg UT QDAY PRN PRN Reason: Constipation unrelieved by MOM Bisacodyl (Dulcolax) 10 mg UT DAILY PRN PRN Reason: Constipation Famotidine (Pepcid) 10 mg PO BID [facility] Hydrophilic Ointment (Vaseline Lip Therapy) 5 applic TP Q2H PRN PRN Reason: Dry Lips Sodium Bicarbonate 150 meq/ (Dextrose) 1,150 mls @ 125 mls/hr IV ONCE.ED ONE Stop: 08/23/17 18:16 Levofloxacin/Dextrose (Levaquin 500mg/100ml) 500 mg in 100 mls @ 100 mls/hr IV Q48HR [facility] Piperacillin Sod/Tazobactam Sod (Zosyn/Ns 2.25 Gm/50ml) 2.25 gm in 50 mls @ 100 mls/hr IV Q8H [facility] Magnesium Hydroxide (Milk Of Magnesia) 30 ml PO Q4H PRN PRN Reason: Constipation Magnesium Hydroxide (Milk Of Magnesia) 30 ml PO Q4H PRN PRN Reason: Constipation Miscellaneous Medication (Acetaminophen [Acetaminophen]) 650 mg PO Q4H PRN PRN Reason: Pain Ondansetron HCl (Zofran) 4 mg IV Q8H PRN PRN Reason: N/V unrelieved by Reglan Tramadol HCl (Ultram) 50 mg PO Q6H PRN PRN Reason: Pain Vancomycin HCl (Vancomycin Pharmacy To Dose) 1 each IV PKCONSULT [facility] Review of Systems ROS unobtainable: due to mental status (- patient responds to voice but she is not verbal ) Exam - Constitutional Vitals: Temp Pulse Resp BP Pulse Ox 97.2 F L 95 H 16 108/58 100 08/23/17 12:00 08/23/17 12:00 08/23/17 12:00 08/23/17 12:00 08/23/17 12:00 General appearance: Present: cachectic, other (responds to voice, not verbal , bedridden, cachectic ) - Neck Neck: Present: supple - Respiratory Respiratory effort: normal Respiratory: bilateral: CTA - Cardiovascular Rhythm: regular - Extremities Extremities: No edema Results - Labs CBC & Chem 7: 08/23/17 08:46 08/23/17 05:58 Labs: Abnormal lab results 08/23/17 08/23/17 08/23/17 Range/Units 05:58 05:58 05:58 WBC 74.5 H* (4.5-11.0) K/mm3 RBC (3.65-5.03) M/mm3 Hgb (10.1-14.3) gm/dl Hct (30.3-42.9) % RDW 19.7 H (13.2-15.2) % Plt Count 524 H (140-440) K/mm3 Seg Neuts % (Manual) 95.5 H (40.0-70.0) % Lymphocytes % (Manual) 0 L (13.4-35.0) % Nucleated RBC % 1.0 H (0.0-0.9) % Seg Neutrophils # Man 71.1 H (1.8-7.7) K/mm3 Lymphocytes # (Manual) 0.0 L (1.2-5.4) K/mm3 PT (12.2-14.9) Sec. INR (0.87-1.13) APTT (24.2-36.6) Sec. POC ABG pH (7.35-7.45) Sodium 126 L (137-145) mmol/L Chloride 86.7 L (98-107) mmol/L Carbon Dioxide 10 L (22-30) mmol/L BUN 76 H (7-17) mg/dL Creatinine 3.5 H (0.7-1.2) mg/dL Lactic Acid 2.50 H* (0.7-2.0) mmol/L Calcium 7.9 L (8.4-10.2) mg/dL AST 46 H (5-40) units/L CK-MB (CK-2) (0.0-4.0) ng/mL CK-MB (CK-2) Rel Index (0-4) Troponin T (0.00-0.029) ng/mL NT-Pro-B Natriuret Pep (0-900) pg/mL Total Protein 5.7 L (6.3-8.2) g/dL Albumin 2.8 L (3.9-5) g/dL LDL Cholesterol Direct (50-130) mg/dL Urine WBC (Auto) (0.0-6.0) /HPF 08/23/17 08/23/17 08/23/17 Range/Units 05:58 05:58 05:58 WBC (4.5-11.0) K/mm3 RBC (3.65-5.03) M/mm3 Hgb (10.1-14.3) gm/dl Hct (30.3-42.9) % RDW (13.2-15.2) % Plt Count (140-440) K/mm3 Seg Neuts % (Manual) (40.0-70.0) % Lymphocytes % (Manual) (13.4-35.0) % Nucleated RBC % (0.0-0.9) % Seg Neutrophils # Man (1.8-7.7) K/mm3 Lymphocytes # (Manual) (1.2-5.4) K/mm3 PT 25.5 H (12.2-14.9) Sec. INR 2.16 H (0.87-1.13) APTT 46.4 H (24.2-36.6) Sec. POC ABG pH (7.35-7.45) Sodium (137-145) mmol/L Chloride (98-107) mmol/L Carbon Dioxide (22-30) mmol/L BUN (7-17) mg/dL Creatinine (0.7-1.2) mg/dL Lactic Acid (0.7-2.0) mmol/L Calcium (8.4-10.2) mg/dL AST (5-40) units/L CK-MB (CK-2) 5.2 H (0.0-4.0) ng/mL CK-MB (CK-2) Rel Index 10.0 H (0-4) Troponin T 0.057 H (0.00-0.029) ng/mL NT-Pro-B Natriuret Pep 8480 H (0-900) pg/mL Total Protein (6.3-8.2) g/dL Albumin (3.9-5) g/dL LDL Cholesterol Direct 48 L (50-130) mg/dL Urine WBC (Auto) (0.0-6.0) /HPF 08/23/17 08/23/17 08/23/17 Range/Units 07:19 08:32 08:46 WBC 68.8 H* (4.5-11.0) K/mm3 RBC 3.02 L (3.65-5.03) M/mm3 Hgb 8.8 L (10.1-14.3) gm/dl Hct 27.4 L D (30.3-42.9) % RDW 19.4 H (13.2-15.2) % Plt Count (140-440) K/mm3 Seg Neuts % (Manual) (40.0-70.0) % Lymphocytes % (Manual) (13.4-35.0) % Nucleated RBC % (0.0-0.9) % Seg Neutrophils # Man (1.8-7.7) K/mm3 Lymphocytes # (Manual) (1.2-5.4) K/mm3 PT (12.2-14.9) Sec. INR (0.87-1.13) APTT (24.2-36.6) Sec. POC ABG pH 7.101 L (7.35-7.45) Sodium (137-145) mmol/L Chloride (98-107) mmol/L Carbon Dioxide (22-30) mmol/L BUN (7-17) mg/dL Creatinine (0.7-1.2) mg/dL Lactic Acid (0.7-2.0) mmol/L Calcium (8.4-10.2) mg/dL AST (5-40) units/L CK-MB (CK-2) (0.0-4.0) ng/mL CK-MB (CK-2) Rel Index (0-4) Troponin T (0.00-0.029) ng/mL NT-Pro-B Natriuret Pep (0-900) pg/mL Total Protein (6.3-8.2) g/dL Albumin (3.9-5) g/dL LDL Cholesterol Direct (50-130) mg/dL Urine WBC (Auto) > 182.0 H (0.0-6.0) /HPF
[2017-08-23] MEDS: PEPCID PO SCH ×2 (14:41→23:46)
[2017-08-23] MEDS: VITAMIN C PO SCH ×2 (14:41→23:46)
[2017-08-23] MEDS: ELIQUIS PO SCH ×2 (14:41→23:45)
[2017-08-23] MEDS ORDERED: ZOSYN/NS 2.25 GM/50ML 2.25 GM/50 ML BAG IV SCH (16:00)
--- NOTE | 2017-08-23 16:20 | Consultation ---
History of Present Illness Consult date: 08/23/17 Requesting physician: TOSIN WILDE Reason for consult: other (chronic respiratory failure) History of present illness: 62 y/o female, well known to me from her stents in the ICU, admitted with sepsis and metabolic acidosis, thought from UTI. Patient is not verbal but will nod her head on commands. Currently on nasal cannula, 2 liters which appears to be her baseline. We were consulted for acute on chronic respiratory failure but she is chronic. I am concerned about the ABG that showed a pH of 7.1 at 0830 this am. Past History Past Medical History: COPD, hyperlipidemia, renal failure, other (Sepsis,septic shock, Leukocytosis,hyponatremia) Past Surgical History: hysterectomy, bowel surgery (partial colectomy) Social history: full code, other (Lives in SNF). denies: smoking, alcohol abuse Family history: hypertension Medications and Allergies Allergies Allergy/AdvReac Type Severity Reaction Status Date / Time No Known Allergies Allergy Verified 05/23/15 12:02 Home Medications Medication Instructions Recorded Confirmed Last Taken Type Acetaminophen 650 mg PO Q4HR PRN 08/23/17 08/23/17 Unknown History Apixaban [Eliquis] 5 mg PO BID 08/23/17 08/23/17 08/22/17 History Arformoterol Nebu [Brovana Nebu] 15 mcg IH Q12HR 08/23/17 08/23/17 08/22/17 History Ascorbic Acid 500 mg PO BID 08/23/17 08/23/17 08/22/17 History Bisacodyl 10 mg RC DAILY PRN 08/23/17 08/23/17 Unknown History Famotidine [Pepcid] 10 mg PO BID 08/23/17 08/23/17 08/22/17 History Magnesium Hydroxide [Milk of 30 ml PO Q4HR PRN 08/23/17 08/23/17 Unknown History Magnesia] Petrolatum,White [Vaseline Lip 5 gm TP Q2HR PRN 08/23/17 08/23/17 Unknown History Therapy] traMADol [Ultram] 50 mg PO Q6HR PRN 08/23/17 08/23/17 Unknown History Active Meds: Active Medications Acetaminophen (Tylenol) 650 mg PO Q4H PRN PRN Reason: Pain MILD(1-3)/Fever >100.5/KHOURY Apixaban (Eliquis) 5 mg PO BID [facility]; Protocol Last Admin: 08/23/17 14:41 Dose: 5 mg Ascorbic Acid (Vitamin C) 500 mg PO BID [facility] Last Admin: 08/23/17 14:41 Dose: 500 mg Bisacodyl (Dulcolax) 10 mg NM QDAY PRN PRN Reason: Constipation unrelieved by MOM Bisacodyl (Dulcolax) 10 mg NM DAILY PRN PRN Reason: Constipation Famotidine (Pepcid) 10 mg PO BID [facility] Last Admin: 08/23/17 14:41 Dose: 10 mg Hydrophilic Ointment (Vaseline Lip Therapy) 5 applic TP Q2H PRN PRN Reason: Dry Lips Sodium Bicarbonate 150 meq/ (Dextrose) 1,150 mls @ 125 mls/hr IV ONCE.ED ONE Stop: 08/23/17 18:16 Last Admin: 08/23/17 14:22 Dose: 125 mls/hr Levofloxacin/Dextrose (Levaquin 500mg/100ml) 500 mg in 100 mls @ 100 mls/hr IV Q48HR [facility] Piperacillin Sod/Tazobactam Sod (Zosyn/Ns 2.25 Gm/50ml) 2.25 gm in 50 mls @ 100 mls/hr IV Q8H [facility] Last Admin: 08/23/17 16:05 Dose: 100 mls/hr Magnesium Hydroxide (Milk Of Magnesia) 30 ml PO Q4H PRN PRN Reason: Constipation Magnesium Hydroxide (Milk Of Magnesia) 30 ml PO Q4H PRN PRN Reason: Constipation Miscellaneous Medication (Acetaminophen [Acetaminophen]) 650 mg PO Q4H PRN PRN Reason: Pain Ondansetron HCl (Zofran) 4 mg IV Q8H PRN PRN Reason: N/V unrelieved by Reglan Tramadol HCl (Ultram) 50 mg PO Q6H PRN PRN Reason: Pain Vancomycin HCl (Vancomycin Pharmacy To Dose) 1 each IV PKCONSULT [facility] Review of Systems All systems: negative Constitutional: weight loss Physical Examination Vital signs: Vital Signs Pulse Resp BP 123 H 21 81/50 08/23/17 05:54 08/23/17 05:54 08/23/17 05:54 General appearance: other (thin and frail. Cachectic) Eyes: non-icteric ENT: oropharynx dry Neck: supple Effort: normal Ascultation: Bilateral: clear Results - Laboratory Findings CBC and BMP: 08/23/17 08:46 08/23/17 05:58 ABG POC ABG pH 7.101 (7.35-7.45) L 08/23/17 08:32 POC ABG pCO2 39.1 (35-45) 08/23/17 08:32 POC ABG pO2 104 (80-105) 08/23/17 08:32 POC ABG HCO3 12.2 08/23/17 08:32 POC ABG Total CO2 13 08/23/17 08:32 POC ABG O2 Sat 95 08/23/17 08:32 PT/INR, D-dimer PT 25.5 Sec. (12.2-14.9) H 08/23/17 05:58 INR 2.16 (0.87-1.13) H 08/23/17 05:58 Abnormal lab findings: Abnormal Labs 08/23/17 08/23/17 08/23/17 05:58 05:58 05:58 WBC 74.5 H* RBC Hgb Hct RDW 19.7 H Plt Count 524 H Seg Neuts % (Manual) 95.5 H Lymphocytes % (Manual) 0 L Nucleated RBC % 1.0 H Seg Neutrophils # Man 71.1 H Lymphocytes # (Manual) 0.0 L PT INR APTT POC ABG pH Sodium 126 L Chloride 86.7 L Carbon Dioxide 10 L BUN 76 H Creatinine 3.5 H Lactic Acid 2.50 H* Calcium 7.9 L AST 46 H CK-MB (CK-2) CK-MB (CK-2) Rel Index Troponin T NT-Pro-B Natriuret Pep Total Protein 5.7 L Albumin 2.8 L LDL Cholesterol Direct Urine WBC (Auto) 08/23/17 08/23/17 08/23/17 05:58 05:58 05:58 WBC RBC Hgb Hct RDW Plt Count Seg Neuts % (Manual) Lymphocytes % (Manual) Nucleated RBC % Seg Neutrophils # Man Lymphocytes # (Manual) PT 25.5 H INR 2.16 H APTT 46.4 H POC ABG pH Sodium Chloride Carbon Dioxide BUN Creatinine Lactic Acid Calcium AST CK-MB (CK-2) 5.2 H CK-MB (CK-2) Rel Index 10.0 H Troponin T 0.057 H NT-Pro-B Natriuret Pep 8480 H Total Protein Albumin LDL Cholesterol Direct 48 L Urine WBC (Auto) 08/23/17 08/23/17 08/23/17 07:19 08:32 08:46 WBC 68.8 H* RBC 3.02 L Hgb 8.8 L Hct 27.4 L D RDW 19.4 H Plt Count Seg Neuts % (Manual) Lymphocytes % (Manual) Nucleated RBC % Seg Neutrophils # Man Lymphocytes # (Manual) PT INR APTT POC ABG pH 7.101 L Sodium Chloride Carbon Dioxide BUN Creatinine Lactic Acid Calcium AST CK-MB (CK-2) CK-MB (CK-2) Rel Index Troponin T NT-Pro-B Natriuret Pep Total Protein Albumin LDL Cholesterol Direct Urine WBC (Auto) > 182.0 H - Diagnostic Findings Chest x-ray: image reviewed (Hyperinflation but no acute process) Assessment and Plan 62 y/o female with chronic respiratory failure, admitted with sepsis and severe metabolic acidosis. 1. COPD, respiratory failure stable, nothing to do from that standpoint. 2. Biggest concern is metabolic acidosis. Currently on bicarb drip. I have asked the RT to repeat ABG to evaluate this. If still low or lower, will need higher level of care. 3. If this is improved, will likely sign off and agree with current treatment by primary team. Breathing and lung function currently are stable.
[2017-08-23 16:32] LABS: Creatine Kinase MB 6.7 ng/mL (0.0-4.0)
[2017-08-23 16:44] LABS: Calcium 6.3 mg/dL (8.4-10.2)
--- NOTE | 2017-08-23 17:44 | Consultation ---
History of Present Illness - Reason for Consult Consult date: 08/23/17 sepsis Requesting physician: TOSIN WILDE - History of Present Illness 62 years old female with history of COPD on home oxygen, CKD, Sho in urine; patient well known to ID service since she was seen back in Apr 2017 due to septic shock from severe C diff colitis requiring emergent colectomy ans splenectomy on 05/21/18. admitted on 08/23/17 due to AMS/confusion. Patient reports she was feeling sick and having body aches. Patient is still confused unable to provide a full history. She came from [facility] via EMS. Per records she has two pressure ulcers. One on Sacrum the other on left hip which is a black eschar. Of note, after splenectomy she had severe leukocytosis which eventually improved to normal. She was recently discharged due to DVT and her WBC was 17K and she was supposed to see Hem. In the ED, initial temperature 97.3, heart rate 123, respiration 21, heart rate 123, blood pressure 81/50. Initial white count 74.5. Hemoglobin 11.1. Platelets 524. Creatinine 3.5. Sodium 126. Urinalysis showed more than 182 white blood cells and leukocyte esterase moderate. Chest x-ray showed changes of COPD. Microbiology: Blood cultures: 08/23 ngtd Current Antimicrobials: Zosyn Levaquin Vanco Previous Antimicrobials: Past History Past Medical History: COPD, hyperlipidemia, renal failure, other (Sepsis,septic shock, Leukocytosis,hyponatremia, refractory C diff requiring colectomy) Past Surgical History: hysterectomy, bowel surgery (partial colectomy) Social history: full code, other (Lives in SNF). denies: smoking, alcohol abuse Family history: hypertension Medications and Allergies Allergies Allergy/AdvReac Type Severity Reaction Status Date / Time No Known Allergies Allergy Verified 05/23/15 12:02 Home Medications Medication Instructions Recorded Confirmed Last Taken Type Acetaminophen 650 mg PO Q4HR PRN 08/23/17 08/23/17 Unknown History Apixaban [Eliquis] 5 mg PO BID 08/23/17 08/23/17 08/22/17 History Arformoterol Nebu [Brovana Nebu] 15 mcg IH Q12HR 08/23/17 08/23/17 08/22/17 History Ascorbic Acid 500 mg PO BID 08/23/17 08/23/17 08/22/17 History Bisacodyl 10 mg RC DAILY PRN 08/23/17 08/23/17 Unknown History Famotidine [Pepcid] 10 mg PO BID 08/23/17 08/23/17 08/22/17 History Magnesium Hydroxide [Milk of 30 ml PO Q4HR PRN 08/23/17 08/23/17 Unknown History Magnesia] Petrolatum,White [Vaseline Lip 5 gm TP Q2HR PRN 08/23/17 08/23/17 Unknown History Therapy] traMADol [Ultram] 50 mg PO Q6HR PRN 08/23/17 08/23/17 Unknown History Active Meds: Active Medications Acetaminophen (Tylenol) 650 mg PO Q4H PRN PRN Reason: Pain MILD(1-3)/Fever >100.5/KHOURY Apixaban (Eliquis) 5 mg PO BID [facility]; Protocol Last Admin: 08/23/17 14:41 Dose: 5 mg Ascorbic Acid (Vitamin C) 500 mg PO BID [facility] Last Admin: 08/23/17 14:41 Dose: 500 mg Bisacodyl (Dulcolax) 10 mg ID QDAY PRN PRN Reason: Constipation unrelieved by MOM Bisacodyl (Dulcolax) 10 mg ID DAILY PRN PRN Reason: Constipation Famotidine (Pepcid) 10 mg PO BID [facility] Last Admin: 08/23/17 14:41 Dose: 10 mg Hydrophilic Ointment (Vaseline Lip Therapy) 5 applic TP Q2H PRN PRN Reason: Dry Lips Sodium Bicarbonate 150 meq/ (Dextrose) 1,150 mls @ 125 mls/hr IV ONCE.ED ONE Stop: 08/23/17 18:16 Last Admin: 08/23/17 14:22 Dose: 125 mls/hr Levofloxacin/Dextrose (Levaquin 500mg/100ml) 500 mg in 100 mls @ 100 mls/hr IV Q48HR [facility] Piperacillin Sod/Tazobactam Sod (Zosyn/Ns 2.25 Gm/50ml) 2.25 gm in 50 mls @ 100 mls/hr IV Q8H [facility] Last Admin: 08/23/17 16:05 Dose: 100 mls/hr Magnesium Hydroxide (Milk Of Magnesia) 30 ml PO Q4H PRN PRN Reason: Constipation Magnesium Hydroxide (Milk Of Magnesia) 30 ml PO Q4H PRN PRN Reason: Constipation Miscellaneous Medication (Acetaminophen [Acetaminophen]) 650 mg PO Q4H PRN PRN Reason: Pain Ondansetron HCl (Zofran) 4 mg IV Q8H PRN PRN Reason: N/V unrelieved by Reglan Tramadol HCl (Ultram) 50 mg PO Q6H PRN PRN Reason: Pain Vancomycin HCl (Vancomycin Pharmacy To Dose) 1 each IV PKCONSULT DUNG Review of Systems ROS unobtainable: due to mental status Physical Examination - Physical Exam Narrative exam: General appearance: Alert confused in NAD Eyes: anicteric sclerae, moist conjunctivae; no lid-lag; PERRLA HENT: Atraumatic; oropharynx clear poor dentition Neck: Trachea midline; supple, no thyromegaly or lymphadenopathy Lungs: CTA CV: RRR, no murmurs Abdomen: Soft, non-tender Extremities: No peripheral edema or extremity lymphadenopathy Skin: +sacral decubitus eschar left hip Psych: confused Neuro: confused Lines: No CVL / PICC - Constitutional Vitals: Vital Signs Temp Pulse Resp BP Pulse Ox 98.2 F 51 L 16 105/50 98 08/23/17 16:30 08/23/17 16:30 08/23/17 16:30 08/23/17 16:30 08/23/17 16:30 Temperature -Last 24 Hours Temperature 98.2 F Temperature 97.2 F Temperature 97.2 F Temperature 97.3 F Temperature 97.3 F Results - Labs CBC & Chem 7: 08/23/17 08:46 08/23/17 15:49 Labs: Abnormal lab results 08/23/17 08/23/17 08/23/17 Range/Units 05:58 05:58 05:58 WBC 74.5 H* (4.5-11.0) K/mm3 RBC (3.65-5.03) M/mm3 Hgb (10.1-14.3) gm/dl Hct (30.3-42.9) % RDW 19.7 H (13.2-15.2) % Plt Count 524 H (140-440) K/mm3 Seg Neuts % (Manual) 95.5 H (40.0-70.0) % Lymphocytes % (Manual) 0 L (13.4-35.0) % Nucleated RBC % 1.0 H (0.0-0.9) % Seg Neutrophils # Man 71.1 H (1.8-7.7) K/mm3 Lymphocytes # (Manual) 0.0 L (1.2-5.4) K/mm3 PT (12.2-14.9) Sec. INR (0.87-1.13) APTT (24.2-36.6) Sec. POC ABG pH (7.35-7.45) Sodium 126 L (137-145) mmol/L Chloride 86.7 L (98-107) mmol/L Carbon Dioxide 10 L (22-30) mmol/L BUN 76 H (7-17) mg/dL Creatinine 3.5 H (0.7-1.2) mg/dL Glucose (65-100) mg/dL Lactic Acid 2.50 H* (0.7-2.0) mmol/L Calcium 7.9 L (8.4-10.2) mg/dL AST 46 H (5-40) units/L CK-MB (CK-2) (0.0-4.0) ng/mL CK-MB (CK-2) Rel Index (0-4) Troponin T (0.00-0.029) ng/mL NT-Pro-B Natriuret Pep (0-900) pg/mL Total Protein 5.7 L (6.3-8.2) g/dL Albumin 2.8 L (3.9-5) g/dL LDL Cholesterol Direct (50-130) mg/dL Urine WBC (Auto) (0.0-6.0) /HPF 08/23/17 08/23/17 08/23/17 Range/Units 05:58 05:58 05:58 WBC (4.5-11.0) K/mm3 RBC (3.65-5.03) M/mm3 Hgb (10.1-14.3) gm/dl Hct (30.3-42.9) % RDW (13.2-15.2) % Plt Count (140-440) K/mm3 Seg Neuts % (Manual) (40.0-70.0) % Lymphocytes % (Manual) (13.4-35.0) % Nucleated RBC % (0.0-0.9) % Seg Neutrophils # Man (1.8-7.7) K/mm3 Lymphocytes # (Manual) (1.2-5.4) K/mm3 PT 25.5 H (12.2-14.9) Sec. INR 2.16 H (0.87-1.13) APTT 46.4 H (24.2-36.6) Sec. POC ABG pH (7.35-7.45) Sodium (137-145) mmol/L Chloride (98-107) mmol/L Carbon Dioxide (22-30) mmol/L BUN (7-17) mg/dL Creatinine (0.7-1.2) mg/dL Glucose (65-100) mg/dL Lactic Acid (0.7-2.0) mmol/L Calcium (8.4-10.2) mg/dL AST (5-40) units/L CK-MB (CK-2) 5.2 H (0.0-4.0) ng/mL CK-MB (CK-2) Rel Index 10.0 H (0-4) Troponin T 0.057 H (0.00-0.029) ng/mL NT-Pro-B Natriuret Pep 8480 H (0-900) pg/mL Total Protein (6.3-8.2) g/dL Albumin (3.9-5) g/dL LDL Cholesterol Direct 48 L (50-130) mg/dL Urine WBC (Auto) (0.0-6.0) /HPF 08/23/17 08/23/17 08/23/17 Range/Units 07:19 08:32 08:46 WBC 68.8 H* (4.5-11.0) K/mm3 RBC 3.02 L (3.65-5.03) M/mm3 Hgb 8.8 L (10.1-14.3) gm/dl Hct 27.4 L D (30.3-42.9) % RDW 19.4 H (13.2-15.2) % Plt Count (140-440) K/mm3 Seg Neuts % (Manual) (40.0-70.0) % Lymphocytes % (Manual) (13.4-35.0) % Nucleated RBC % (0.0-0.9) % Seg Neutrophils # Man (1.8-7.7) K/mm3 Lymphocytes # (Manual) (1.2-5.4) K/mm3 PT (12.2-14.9) Sec. INR (0.87-1.13) APTT (24.2-36.6) Sec. POC ABG pH 7.101 L (7.35-7.45) Sodium (137-145) mmol/L Chloride (98-107) mmol/L Carbon Dioxide (22-30) mmol/L BUN (7-17) mg/dL Creatinine (0.7-1.2) mg/dL Glucose (65-100) mg/dL Lactic Acid (0.7-2.0) mmol/L Calcium (8.4-10.2) mg/dL AST (5-40) units/L CK-MB (CK-2) (0.0-4.0) ng/mL CK-MB (CK-2) Rel Index (0-4) Troponin T (0.00-0.029) ng/mL NT-Pro-B Natriuret Pep (0-900) pg/mL Total Protein (6.3-8.2) g/dL Albumin (3.9-5) g/dL LDL Cholesterol Direct (50-130) mg/dL Urine WBC (Auto) > 182.0 H (0.0-6.0) /HPF 08/23/17 08/23/17 Range/Units 15:49 15:49 WBC (4.5-11.0) K/mm3 RBC (3.65-5.03) M/mm3 Hgb (10.1-14.3) gm/dl Hct (30.3-42.9) % RDW (13.2-15.2) % Plt Count (140-440) K/mm3 Seg Neuts % (Manual) (40.0-70.0) % Lymphocytes % (Manual) (13.4-35.0) % Nucleated RBC % (0.0-0.9) % Seg Neutrophils # Man (1.8-7.7) K/mm3 Lymphocytes # (Manual) (1.2-5.4) K/mm3 PT (12.2-14.9) Sec. INR (0.87-1.13) APTT (24.2-36.6) Sec. POC ABG pH (7.35-7.45) Sodium 130 L (137-145) mmol/L Chloride (98-107) mmol/L Carbon Dioxide 10 L (22-30) mmol/L BUN 60 H (7-17) mg/dL Creatinine 2.4 H (0.7-1.2) mg/dL Glucose 112 H (65-100) mg/dL Lactic Acid (0.7-2.0) mmol/L Calcium 6.3 L D (8.4-10.2) mg/dL AST (5-40) units/L CK-MB (CK-2) 6.7 H (0.0-4.0) ng/mL CK-MB (CK-2) Rel Index 7.5 H (0-4) Troponin T 0.040 H D (0.00-0.029) ng/mL NT-Pro-B Natriuret Pep (0-900) pg/mL Total Protein (6.3-8.2) g/dL Albumin (3.9-5) g/dL LDL Cholesterol Direct (50-130) mg/dL Urine WBC (Auto) (0.0-6.0) /HPF Assessment and Plan Assessment: 1) Sepsis: Present on admission, manifested by tachycardia, hypotension, leukocytosis with leukomoid reaction. Etiology most likely ? UTI ? malignancy ? occult abscess. 2) UTI: UA c/w UTI. previous urine cx + Sho ? colonizer 3) AMS: metabolic ? 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 8) Left hip and sacral pressure ulcers. 9) DVT Plan: -follow-up blood cultures, urine culture -obtain C-reactive protein (CRP) -obtain CT chest, abd, pelvis eval for malignancy and occult abscess -continue vanco renally dosed -stop zosyn and levaquin -start cefepime and flagyl -wound care consult Thank you for your consultation, will follow up with you. Winifred Guerrero MD Infectious Diseases Specialist [facility] ([facility]) M [phone] O [phone]
[2017-08-23] MEDS: ULTRAM PO PRN (17:50)
[2017-08-23 18:26] LABS: Creatinine,Urine < 4.2 mg/dL (0.1-20.0)
--- NOTE | 2017-08-23 19:30 | Cat Scan Report ---
FINAL REPORT EXAM: CT ABDOMEN PELVIS WO CON HISTORY: pt with sepsis and leukomoid reaction COMPARISON: CT angiography abdomen pelvis from July 2017. TECHNIQUE: Contiguous axial images were obtained. Additional sagittal and coronal reformatted images were obtained. FINDINGS: Exam is limited by lack intra-abdominal fat and patient's marked cachectic state. Please see CT of the chest from the same day for further details of the lung bases. There is mild diffuse body wall edema. There is also nonspecific stranding of the mesentery and small to moderate amount of free fluid in the abdomen and pelvis which may relate to nonspecific edema. No loculated collection to suggest abscess. Liver is unremarkable. Spleen is not definitely visualized and appears to be absent or markedly small in size. Pancreas is grossly unremarkable. No large adrenal mass. Gallbladder appears to be contracted. No calcified gallstones. There is high attenuation along the renal medulla bilaterally which could relate to nephrocalcinosis. No obstructive renal calculi. No hydronephrosis. Mild nonspecific bilateral perinephric fat stranding and fluid. Aorta and IVC normal in caliber. Moderate severe calcified plaque along the aorta. Abdominal aorta measures up to 2 centimeters in diameter within normal limits. Urinary bladder is distended by gas. Castillo catheter is in place. Presence of gas may relate to placement of the catheter. Uterus is not visualized appears to be surgically absent. There is wall thickening the distal rectosigmoid colon which is nonspecific but could reflect segmental colitis. No bowel obstruction. There is ostomy exiting the right lower abdomen. [id number] degenerative changes of the lumbar spine. Marked degenerative changes the right hip. Subchondral sclerosis along the left femoral head concerning for sequelae of AVN. IMPRESSION: Nonspecific edema along the body wall and within the abdominal pelvic cavity. Small to moderate amount of free fluid in the abdomen and pelvis and fat stranding along the body wall. No loculated collection to suggest abscess. Wall thickening of the distal rectosigmoid colon which could relate to its partially decompressed state. Mild segmental colitis in that region is not excluded. No evidence of bowel obstruction. No free air or gross pneumatosis. Ostomy exits the right lower abdomen. Castillo catheter is been placed. The urinary bladder remains moderately distended with air likely from recent Castillo catheter placement as well as fluid. No associated obstructive uropathy.
--- NOTE | 2017-08-23 19:38 | Cat Scan Report ---
FINAL REPORT EXAM: CT CHEST WO CON HISTORY: pt with sepsis and leukomoid reaction COMPARISON: CT of the chest from November 2016. TECHNIQUE: Contiguous axial images were obtained. Additional sagittal and coronal reformatted images were obtained. FINDINGS: Heart normal in size. Ascending thoracic aorta measures 3.3 centimeters in diameter. Moderate severe calcified plaque along the thoracic aorta. Mild coronary artery calcification. No pathologically enlarged intrathoracic or axillary lymph nodes. There are hypodense thyroid lobe lesions similar prior study. Moderate severe emphysema. Mild scarring at the lung apices. No obstructive lesion centrally within the tracheobronchial tree. There are 2 tiny nodules in the left lower lobe measuring 3 and 4 millimeters each (series 3, image 73). There is a spiculated nodule at the medial margin right lower lobe measuring 9 x 7 millimeters. No large airspace consolidation or effusion. Thoracic vertebral body heights preserved. No suspicious sclerotic or lytic lesion. Heart normal in size. IMPRESSION: No acute infiltrates or effusions. Moderate to severe emphysema similar prior study. There is a spiculated nodule at the medial margin right lower lobe measuring 9 x 7 millimeters and 2 punctate nodules left lower lobe new from the November [address] Given the patient's history of leukemia, these are concerning for possible pulmonary involvement by patient's known leukemia. No large airspace consolidation or effusion. No pathologically enlarged intrathoracic or axillary lymph nodes. Stable hypodense thyroid lobe lesions.
[2017-08-23] MEDS ORDERED: MAXIPIME 1 GM in NACL 0.9% 20 ML IV SCH (20:00)
[2017-08-23] MEDS: FLAGYL 500 MG/100 ML 500 MG/100 ML BAG IV SCH (21:24)
[2017-08-23] MEDS: MAXIPIME 1 GM in NACL 0.9% 20 ML IV SCH (21:25)
[2017-08-23] MEDS: TYLENOL PO PRN (21:29)
[2017-08-23] MEDS ORDERED: MAXIPIME 2 GM in NACL 0.9% 20 ML IV SCH (22:00)
[2017-08-24] MEDS: FLAGYL 500 MG/100 ML 500 MG/100 ML BAG IV SCH ×3 (04:14→21:23)
[2017-08-24 08:07] LABS: Hematocrit 30.9 % (30.3-42.9); Hemoglobin 9.7 gm/dl (10.1-14.3); Mean Corpuscular HGB Conc 32 % (30-34); Mean Corpuscular Hemoglobin 29 pg (28-32); Mean Corpuscular Volume 92 fl (79-97); Platelet Count 335 K/mm3 (140-440); Red Blood Count 3.37 M/mm3 (3.65-5.03); Red Cell Distribution Width 19.2 % (13.2-15.2)
[2017-08-24 08:42] LABS: Albumin 2.2 g/dL (3.9-5); Calcium 6.4 mg/dL (8.4-10.2)
--- NOTE | 2017-08-24 09:05 | Progress Note ---
Assessment and Plan Assessment and plan: Sepsis. Now on Cefepime, vancomycin and flagyl. Blood cultures x 2 drawn ID Physician following Urinary tract infection. She had indwelling catheter. Urine cultures ordered. Started on iv antibiotics Septic shock. Gave ivf bolus 4 liters. Cont IVF to keep MAP>65 Decubitus ulcers. Consulted wound care Nurse COPD. On home Oxygen. Consult Pulmonology. Chronic CHF. Acute on CKD. Creatinine 2.4 today, improved. Dr. Martines, Criminal Investigative Agent following Marked leukocytosis. WBC 74 on admission. She had history of marked leukocytosis before and was supposed to follow as outpatient to work up for leukemia. Metabolic acidosis due to sepsis, renal failure Hyponatremia. Started iv fluids History of DVT. Continue Eliqios. DVT prophylaxis. Patient on Eliquis. Full code status. I discussed with patient and son at bedside. Prognosis guarded. History Interval history: Altered mental status, still lethargic Hospitalist Physical - Physical exam Narrative exam: Gen appearance: Not in acute distress, lying in bed, cachectic HEENT:Normocephalic,atraumatic Lungs: Clear to auscultation bilaterally, no crackles , no wheeze Heart: S1 and S2 regular, no murmurs, rubs or gallop Abdomen: soft, non tender, non distended, normal bowel sounds Ext: No edema, no clubbing, no cyanosis Neuro: Lethargic, follows commands, no focal signs Sacral decubitus ulcers Psych: Normal mood - Constitutional Vitals: Temp Pulse Resp BP Pulse Ox 97.5 F L 101 H 18 94/50 100 08/24/17 07:29 08/24/17 07:29 08/24/17 07:29 08/24/17 07:29 08/24/17 07:29 General appearance: Present: cachectic Results - Labs CBC & Chem 7: 08/24/17 07:33 08/24/17 07:33 Labs: Laboratory Last Values WBC 60.8 K/mm3 (4.5-11.0) H* 08/24/17 07:33 RBC 3.37 M/mm3 (3.65-5.03) L 08/24/17 07:33 Hgb 9.7 gm/dl (10.1-14.3) L 08/24/17 07:33 Hct 30.9 % (30.3-42.9) 08/24/17 07:33 MCV 92 fl (79-97) 08/24/17 07:33 MCH 29 pg (28-32) 08/24/17 07:33 MCHC 32 % (30-34) 08/24/17 07:33 RDW 19.2 % (13.2-15.2) H 08/24/17 07:33 Plt Count 335 K/mm3 (140-440) 08/24/17 07:33 Add Manual Diff Complete 08/23/17 05:58 Total Counted 200 08/23/17 05:58 Seg Neutrophils % Liturgical Music Director 08/23/17 05:58 Seg Neuts % (Manual) 95.5 % (40.0-70.0) H 08/23/17 05:58 Band Neutrophils % 3.0 % 08/23/17 05:58 Lymphocytes % (Manual) 0 % (13.4-35.0) L 08/23/17 05:58 Reactive Lymphs % (Man) 0 % 08/23/17 05:58 Monocytes % (Manual) 1.0 % (0.0-7.3) 08/23/17 05:58 Eosinophils % (Manual) 0 % (0.0-4.3) 08/23/17 05:58 Basophils % (Manual) 0 % (0.0-1.8) 08/23/17 05:58 Metamyelocytes % 0.5 % 08/23/17 05:58 Myelocytes % 0 % 08/23/17 05:58 Promyelocytes % 0 % 08/23/17 05:58 Blast Cells % 0 % 08/23/17 05:58 Nucleated RBC % 1.0 % (0.0-0.9) H 08/23/17 05:58 Seg Neutrophils # Man 71.1 K/mm3 (1.8-7.7) H 08/23/17 05:58 Band Neutrophils # 2.2 K/mm3 08/23/17 05:58 Lymphocytes # (Manual) 0.0 K/mm3 (1.2-5.4) L 08/23/17 05:58 Abs React Lymphs (Man) 0.0 K/mm3 08/23/17 05:58 Monocytes # (Manual) 0.7 K/mm3 (0.0-0.8) 08/23/17 05:58 Eosinophils # (Manual) 0.0 K/mm3 (0.0-0.4) 08/23/17 05:58 Basophils # (Manual) 0.0 K/mm3 (0.0-0.1) 08/23/17 05:58 Metamyelocytes # 0.4 K/mm3 08/23/17 05:58 Myelocytes # 0.0 K/mm3 08/23/17 05:58 Promyelocytes # 0.0 K/mm3 08/23/17 05:58 Blast Cells # 0.0 K/mm3 08/23/17 05:58 WBC Morphology Not Reportable 08/23/17 05:58 Hypersegmented Neuts Not Reportable 08/23/17 05:58 Hyposegmented Neuts Not Reportable 08/23/17 05:58 Hypogranular Neuts Not Reportable 08/23/17 05:58 Smudge Cells Not Reportable 08/23/17 05:58 Toxic Granulation Not Reportable 08/23/17 05:58 Toxic Vacuolation Not Reportable 08/23/17 05:58 Dohle Bodies Not Reportable 08/23/17 05:58 Pelger-Huet Anomaly Not Reportable 08/23/17 05:58 Neisha Rods Not Reportable 08/23/17 05:58 Platelet Estimate Consistent w auto 08/23/17 05:58 Clumped Platelets Not Reportable 08/23/17 05:58 Plt Clumps, EDTA Not Reportable 08/23/17 05:58 Large Platelets Not Reportable 08/23/17 05:58 Giant Platelets Not Reportable 08/23/17 05:58 Platelet Satelliting Not Reportable 08/23/17 05:58 Plt Morphology Comment Not Reportable 08/23/17 05:58 RBC Morphology Not Reportable 08/23/17 05:58 Dimorphic RBCs Not Reportable 08/23/17 05:58 Polychromasia Not Reportable 08/23/17 05:58 Hypochromasia Not Reportable 08/23/17 05:58 Poikilocytosis Not Reportable 08/23/17 05:58 Anisocytosis Not Reportable 08/23/17 05:58 Microcytosis Not Reportable 08/23/17 05:58 Macrocytosis Not Reportable 08/23/17 05:58 Spherocytes Not Reportable 08/23/17 05:58 Pappenheimer Bodies Not Reportable 08/23/17 05:58 Sickle Cells Not Reportable 08/23/17 05:58 Target Cells Few 08/23/17 05:58 Tear Drop Cells Not Reportable 08/23/17 05:58 Ovalocytes Not Reportable 08/23/17 05:58 Helmet Cells Not Reportable 08/23/17 05:58 Frankel-[place] Bodies Not Reportable 08/23/17 05:58 Bryant Rings Not Reportable 08/23/17 05:58 [place] Cells Not Reportable 08/23/17 05:58 Bite Cells Not Reportable 08/23/17 05:58 Crenated Cell Not Reportable 08/23/17 05:58 Elliptocytes Not Reportable 08/23/17 05:58 Acanthocytes (Spur) Not Reportable 08/23/17 05:58 Rouleaux Not Reportable 08/23/17 05:58 Hemoglobin C Crystals Not Reportable 08/23/17 05:58 Schistocytes Few 08/23/17 05:58 Malaria parasites Not Reportable 08/23/17 05:58 Herve Bodies Not Reportable 08/23/17 05:58 Hem Pathologist Commnt No 08/23/17 05:58 PT 25.5 Sec. (12.2-14.9) H 08/23/17 05:58 INR 2.16 (0.87-1.13) H 08/23/17 05:58 APTT 46.4 Sec. (24.2-36.6) H 08/23/17 05:58 POC ABG pH 7.187 (7.35-7.45) L 08/23/17 18:00 POC ABG pCO2 35.2 (35-45) 08/23/17 18:00 POC ABG pO2 86 (80-105) 08/23/17 18:00 POC ABG HCO3 13.3 08/23/17 18:00 POC ABG Total CO2 14 08/23/17 18:00 POC ABG O2 Sat 94 08/23/17 18:00 POC ABG Base Excess -15 08/23/17 18:00 FiO2 21 % 08/23/17 18:00 Sodium 135 mmol/L (137-145) L 08/24/17 07:33 Potassium 3.4 mmol/L (3.6-5.0) L 08/24/17 07:33 Chloride 98.4 mmol/L (98-107) 08/24/17 07:33 Carbon Dioxide 15 mmol/L (22-30) L 08/24/17 07:33 Anion Gap 25 mmol/L 08/24/17 07:33 BUN 58 mg/dL (7-17) H 08/24/17 07:33 Creatinine 2.4 mg/dL (0.7-1.2) H 08/24/17 07:33 Estimated GFR 25 ml/min 08/24/17 07:33 BUN/Creatinine Ratio 24 % 08/24/17 07:33 Glucose 105 mg/dL (65-100) H 08/24/17 07:33 POC Glucose 130 (70-105) H 08/24/17 07:32 Lactic Acid 1.10 mmol/L (0.7-2.0) 08/23/17 08:46 Calcium 6.4 mg/dL (8.4-10.2) L 08/24/17 07:33 Phosphorus 6.40 mg/dL (2.5-4.5) H 08/24/17 07:33 Magnesium 1.20 mg/dL (1.7-2.3) L 08/24/17 07:33 Total Bilirubin 0.20 mg/dL (0.1-1.2) 08/24/17 07:33 AST 65 units/L (5-40) H 08/24/17 07:33 ALT 86 units/L (7-56) H 08/24/17 07:33 Alkaline Phosphatase 82 units/L (35-129) 08/24/17 07:33 Total Creatine Kinase 90 units/L (30-135) 08/23/17 21:45 CK-MB (CK-2) 7.0 ng/mL (0.0-4.0) H 08/23/17 21:45 CK-MB (CK-2) Rel Index 7.7 (0-4) H 08/23/17 21:45 Troponin T 0.042 ng/mL (0.00-0.029) H 08/23/17 21:45 C-Reactive Protein 17.50 mg/dL (0.00-1.30) H 08/23/17 15:49 NT-Pro-B Natriuret Pep 8480 pg/mL (0-900) H 08/23/17 05:58 Total Protein 4.7 g/dL (6.3-8.2) L 08/24/17 07:33 Albumin 2.2 g/dL (3.9-5) L 08/24/17 07:33 Albumin/Globulin Ratio 0.9 % 08/24/17 07:33 Triglycerides 76 mg/dL (2-149) 08/23/17 05:58 Cholesterol 115 mg/dL (50-199) 08/23/17 05:58 LDL Cholesterol Direct 48 mg/dL (50-130) L 08/23/17 05:58 HDL Cholesterol 52 mg/dL (40-59) 08/23/17 05:58 Cholesterol/HDL Ratio 2.21 % 08/23/17 05:58 Lipase 18 units/L (13-60) 08/23/17 05:58 TSH 4.110 mlU/mL (0.270-4.200) 08/23/17 05:58 Free T4 1.04 ng/dL (0.76-1.46) 08/23/17 05:58 Urine Color Yellow (Yellow) 08/23/17 07:19 Urine Turbidity Turbid (Clear) 08/23/17 07:19 Urine pH 5.0 (5.0-7.0) 08/23/17 07:19 Ur Specific [place] 1.013 (1.003-1.030) 08/23/17 07:19 Urine Protein 100 mg/dl mg/dL (Negative) 08/23/17 07:19 Urine Glucose (UA) Neg mg/dL (Negative) 08/23/17 07:19 Urine Ketones Neg mg/dL (Negative) 08/23/17 07:19 Urine Blood Mod (Negative) 08/23/17 07:19 Urine Nitrite Neg (Negative) 08/23/17 07:19 Urine Bilirubin Neg (Negative) 08/23/17 07:19 Urine Urobilinogen < 2.0 mg/dL (<2.0) 08/23/17 07:19 Ur Leukocyte Esterase Mod (Negative) 08/23/17 07:19 Urine WBC (Auto) > 182.0 /HPF (0.0-6.0) H 08/23/17 07:19 Urine RBC (Auto) < 1.0 /HPF (0.0-6.0) 08/23/17 07:19 Urine Bacteria (Auto) 3+ /HPF (Negative) 08/23/17 07:19 Urine Creatinine < 4.2 mg/dL (0.1-20.0) 08/23/17 07:19 Urine Sodium 10 mmol/L 08/23/17 07:19 Blood Type AB POSITIVE 08/23/17 10:22 Antibody Screen Negative 08/23/17 10:22
[2017-08-24 10:46] LABS: Band Neutrophils # (Manual) 0.9 K/mm3; Basophils % (Manual) 0 % (0.0-1.8); Eosinophils % (Manual) 0 % (0.0-4.3); Nucleated Red Blood Cells 1.5 % (0.0-0.9); Total Cells Counted 200
[2017-08-24 10:47] LABS: Anisocytosis 1+; Poikilocytosis 2+
[2017-08-24 10:48] LABS: Acanthocytes 1+; Burr Cells 1+; Platelet Estimate Cons; Target Cells Few
[2017-08-24] MEDS ORDERED: MAGNESIUM SULFATE 4GM/100ML 4 GM/100 ML BAG IV ONE (11:37)
[2017-08-24] MEDS: ELIQUIS PO SCH (12:12)
[2017-08-24] MEDS: VITAMIN C PO SCH (12:13)
[2017-08-24] MEDS: PEPCID PO SCH (12:13)
--- NOTE | 2017-08-24 12:14 | Progress Note ---
Assessment and Plan 62 y/o female with chronic respiratory failure, admitted with sepsis and severe metabolic acidosis. 1. Acid base appears to be improving. 2. Pulm status is stable 3. Will sign off. Call if questions. Subjective Date of service: 08/24/17 Interval history: Repeat ABG yesterday showed improvement in pH. HCO3 this am on chemistry is better. Objective Vital Signs - 12hr 08/24/17 08/24/17 08/24/17 00:24 03:58 04:01 Temperature 97.3 F L 122.0 F H Pulse Rate 98 H 107 H 103 H Respiratory 18 22 Rate Blood Pressure 99/62 87/56 98/62 O2 Sat by Pulse 100 100 100 Oximetry 08/24/17 08/24/17 05:16 07:29 Temperature 97.7 F 97.5 F L Pulse Rate 101 H Respiratory 18 Rate Blood Pressure 94/50 O2 Sat by Pulse 100 Oximetry Constitutional: other (thin and frail. Cachectic) Eyes: non-icteric ENT: oropharynx dry Neck: supple Effort: normal Ascultation: Bilateral: clear CBC and BMP: 08/24/17 07:33 08/24/17 07:33 ABG, PT/INR, D-dimer: ABG POC ABG pH 7.187 (7.35-7.45) L 08/23/17 18:00 POC ABG pCO2 35.2 (35-45) 08/23/17 18:00 POC ABG pO2 86 (80-105) 08/23/17 18:00 POC ABG HCO3 13.3 08/23/17 18:00 POC ABG Total CO2 14 08/23/17 18:00 POC ABG O2 Sat 94 08/23/17 18:00 PT/INR, D-dimer PT 25.5 Sec. (12.2-14.9) H 08/23/17 05:58 INR 2.16 (0.87-1.13) H 08/23/17 05:58 Abnormal lab findings: Abnormal Labs 08/23/17 08/23/17 08/23/17 05:58 05:58 05:58 WBC 74.5 H* RBC Hgb Hct RDW 19.7 H Plt Count 524 H Seg Neuts % (Manual) 95.5 H Lymphocytes % (Manual) 0 L Nucleated RBC % 1.0 H Seg Neutrophils # Man 71.1 H Lymphocytes # (Manual) 0.0 L PT INR APTT POC ABG pH Sodium 126 L Potassium Chloride 86.7 L Carbon Dioxide 10 L BUN 76 H Creatinine 3.5 H Glucose POC Glucose Lactic Acid 2.50 H* Calcium 7.9 L Phosphorus Magnesium AST 46 H ALT CK-MB (CK-2) CK-MB (CK-2) Rel Index Troponin T C-Reactive Protein NT-Pro-B Natriuret Pep Total Protein 5.7 L Albumin 2.8 L LDL Cholesterol Direct Urine WBC (Auto) 08/23/17 08/23/17 08/23/17 05:58 05:58 05:58 WBC RBC Hgb Hct RDW Plt Count Seg Neuts % (Manual) Lymphocytes % (Manual) Nucleated RBC % Seg Neutrophils # Man Lymphocytes # (Manual) PT 25.5 H INR 2.16 H APTT 46.4 H POC ABG pH Sodium Potassium Chloride Carbon Dioxide BUN Creatinine Glucose POC Glucose Lactic Acid Calcium Phosphorus Magnesium AST ALT CK-MB (CK-2) 5.2 H CK-MB (CK-2) Rel Index 10.0 H Troponin T 0.057 H C-Reactive Protein NT-Pro-B Natriuret Pep 8480 H Total Protein Albumin LDL Cholesterol Direct 48 L Urine WBC (Auto) 08/23/17 08/23/17 08/23/17 07:19 08:32 08:46 WBC 68.8 H* RBC 3.02 L Hgb 8.8 L Hct 27.4 L D RDW 19.4 H Plt Count Seg Neuts % (Manual) Lymphocytes % (Manual) Nucleated RBC % Seg Neutrophils # Man Lymphocytes # (Manual) PT INR APTT POC ABG pH 7.101 L Sodium Potassium Chloride Carbon Dioxide BUN Creatinine Glucose POC Glucose Lactic Acid Calcium Phosphorus Magnesium AST ALT CK-MB (CK-2) CK-MB (CK-2) Rel Index Troponin T C-Reactive Protein NT-Pro-B Natriuret Pep Total Protein Albumin LDL Cholesterol Direct Urine WBC (Auto) > 182.0 H 08/23/17 08/23/17 08/23/17 15:49 15:49 15:49 WBC RBC Hgb Hct RDW Plt Count Seg Neuts % (Manual) Lymphocytes % (Manual) Nucleated RBC % Seg Neutrophils # Man Lymphocytes # (Manual) PT INR APTT POC ABG pH Sodium 130 L Potassium Chloride Carbon Dioxide 10 L BUN 60 H Creatinine 2.4 H Glucose 112 H POC Glucose Lactic Acid Calcium 6.3 L D Phosphorus Magnesium AST ALT CK-MB (CK-2) 6.7 H CK-MB (CK-2) Rel Index 7.5 H Troponin T 0.040 H D C-Reactive Protein 17.50 H NT-Pro-B Natriuret Pep Total Protein Albumin LDL Cholesterol Direct Urine WBC (Auto) 08/23/17 08/23/17 08/24/17 18:00 21:45 01:16 WBC RBC Hgb Hct RDW Plt Count Seg Neuts % (Manual) Lymphocytes % (Manual) Nucleated RBC % Seg Neutrophils # Man Lymphocytes # (Manual) PT INR APTT POC ABG pH 7.187 L Sodium Potassium Chloride Carbon Dioxide BUN Creatinine Glucose POC Glucose 186 H Lactic Acid Calcium Phosphorus Magnesium AST ALT CK-MB (CK-2) 7.0 H CK-MB (CK-2) Rel Index 7.7 H Troponin T 0.042 H C-Reactive Protein NT-Pro-B Natriuret Pep Total Protein Albumin LDL Cholesterol Direct Urine WBC (Auto) 08/24/17 08/24/17 08/24/17 07:32 07:33 07:33 WBC 60.8 H* RBC 3.37 L Hgb 9.7 L Hct RDW 19.2 H Plt Count Seg Neuts % (Manual) 97.0 H Lymphocytes % (Manual) 0.5 L Nucleated RBC % 1.5 H Seg Neutrophils # Man 59.0 H Lymphocytes # (Manual) 0.3 L PT INR APTT POC ABG pH Sodium 135 L Potassium 3.4 L Chloride Carbon Dioxide 15 L BUN 58 H Creatinine 2.4 H Glucose 105 H POC Glucose 130 H Lactic Acid Calcium 6.4 L Phosphorus 6.40 H Magnesium 1.20 L AST 65 H ALT 86 H CK-MB (CK-2) CK-MB (CK-2) Rel Index Troponin T C-Reactive Protein NT-Pro-B Natriuret Pep Total Protein 4.7 L Albumin 2.2 L LDL Cholesterol Direct Urine WBC (Auto)
[2017-08-24] MEDS: D5NS 1,000 ML IV SCH (12:21)
[2017-08-24] MEDS: MAXIPIME 1 GM in NACL 0.9% 20 ML IV SCH (12:28)
--- NOTE | 2017-08-24 14:36 | Progress Note ---
Assessment and Plan 1. Acute kidney injury: LUIS superimposed on CKD stage 3 in the setting of sepsis / shock. Renal function is improving. Continue IV fluids. Monitor renal function. Renal prognosis is guarded. 2. Metabolic acidosis: Continue Bicarbonate drip. Monitor acid-base status. 3. Hyponatremia: Gradually improving. Monitor. 4. Hypotension: Off Levophed. Continue IV fluids. BP is improving. 5. Electrolytes: Replete K and Mg. 6. Suspected Urosepsis. Subjective Date of service: 08/24/17 Interval history: Patient was seen and examined at the bedside. Objective - Vital Signs Vital signs: Vital Signs - 12hr 08/24/17 08/24/17 08/24/17 03:58 04:01 05:16 Temperature 122.0 F H 97.7 F Pulse Rate 107 H 103 H Respiratory 22 Rate Blood Pressure 87/56 98/62 Blood Pressure [Left] O2 Sat by Pulse 100 100 Oximetry 08/24/17 08/24/17 08/24/17 07:29 12:47 13:04 Temperature 97.5 F L 97.3 F L 97.3 F L Pulse Rate 101 H 105 H 110 H Respiratory 18 18 18 Rate Blood Pressure 94/50 117/62 Blood Pressure 117/62 [Left] O2 Sat by Pulse 100 99 Oximetry - General Appearance General appearance: well-developed, appears stated age, cachectic EENT: ATNC, PERRL Neck: supple Respiratory: Present: Clear to Ascultation Cardiology: regular, S1S2, no murmurs Gastrointestinal: normoactive bowel sounds, other (ostomy noted) Integumentary: ulcer (decubitus) Neurologic: other (stuporous) Musculoskeletal: other (no edema) - Lab 08/24/17 07:33 08/24/17 07:33 Most recent lab results Calcium 6.4 mg/dL (8.4-10.2) L 08/24/17 07:33 Phosphorus 6.40 mg/dL (2.5-4.5) H 08/24/17 07:33 Magnesium 1.20 mg/dL (1.7-2.3) L 08/24/17 07:33 Urine Creatinine < 4.2 mg/dL (0.1-20.0) 08/23/17 07:19 Urine Sodium 10 mmol/L 08/23/17 07:19
--- NOTE | 2017-08-24 15:14 | Progress Note ---
Assessment and Plan Assessment: 1) Sepsis: still tachycardia, hypotension, leukocytosis with leukomoid reaction. Etiology most likely ? UTI ? malignancy ? 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 previous urine cx + Sho ? colonizer 3) AMS: metabolic ? 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 8) Left hip and sacral pressure ulcers. 9) DVT 10) ?? 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 Winifred Guerrero MD Infectious Diseases Specialist [facility] [phone] O [phone] Subjective Date of service: 08/24/17 Principal diagnosis: sepsis Interval history: Feels better, more alert and talking but unclear speech, no fever. Microbiology: Blood cultures: 08/23 ngtd Current Antimicrobials: Zosyn Levaquin Vanco Previous Antimicrobials: Objective - Exam Narrative Exam: General appearance: Alert confused in NAD Eyes: anicteric sclerae, moist conjunctivae; no lid-lag; PERRLA HENT: Atraumatic; oropharynx clear poor dentition Neck: Trachea midline; supple, no thyromegaly or lymphadenopathy Lungs: CTA CV: RRR, no murmurs Abdomen: Soft, non-tender + colostomy bag Extremities: No peripheral edema or extremity lymphadenopathy Skin: +sacral decubitus eschar left hip Psych: confused Neuro: confused Lines: No CVL / PICC - Constitutional Vitals: Vital Signs Temp Pulse Resp BP Pulse Ox 97.3 F L 110 H 18 117/62 99 08/24/17 13:04 08/24/17 13:04 08/24/17 13:04 08/24/17 13:04 08/24/17 12:47 Temperature -Last 24 Hours Temperature 97.3 F Temperature 97.3 F Temperature 97.5 F Temperature 97.7 F Temperature 122.0 F Temperature 97.3 F Temperature 98.2 F - Labs CBC & Chem 7: 08/24/17 07:33 08/24/17 07:33 Labs: Abnormal lab results 08/23/17 08/23/17 08/23/17 Range/Units 15:49 15:49 15:49 WBC (4.5-11.0) K/mm3 RBC (3.65-5.03) M/mm3 Hgb (10.1-14.3) gm/dl RDW (13.2-15.2) % Seg Neuts % (Manual) (40.0-70.0) % Lymphocytes % (Manual) (13.4-35.0) % Nucleated RBC % (0.0-0.9) % Seg Neutrophils # Man (1.8-7.7) K/mm3 Lymphocytes # (Manual) (1.2-5.4) K/mm3 POC ABG pH (7.35-7.45) Sodium 130 L (137-145) mmol/L Potassium (3.6-5.0) mmol/L Carbon Dioxide 10 L (22-30) mmol/L BUN 60 H (7-17) mg/dL Creatinine 2.4 H (0.7-1.2) mg/dL Glucose 112 H (65-100) mg/dL POC Glucose (70-105) Calcium 6.3 L D (8.4-10.2) mg/dL Phosphorus (2.5-4.5) mg/dL Magnesium (1.7-2.3) mg/dL AST (5-40) units/L ALT (7-56) units/L CK-MB (CK-2) 6.7 H (0.0-4.0) ng/mL CK-MB (CK-2) Rel Index 7.5 H (0-4) Troponin T 0.040 H D (0.00-0.029) ng/mL C-Reactive Protein 17.50 H (0.00-1.30) mg/dL Total Protein (6.3-8.2) g/dL Albumin (3.9-5) g/dL 08/23/17 08/23/17 08/24/17 Range/Units 18:00 21:45 01:16 WBC (4.5-11.0) K/mm3 RBC (3.65-5.03) M/mm3 Hgb (10.1-14.3) gm/dl RDW (13.2-15.2) % Seg Neuts % (Manual) (40.0-70.0) % Lymphocytes % (Manual) (13.4-35.0) % Nucleated RBC % (0.0-0.9) % Seg Neutrophils # Man (1.8-7.7) K/mm3 Lymphocytes # (Manual) (1.2-5.4) K/mm3 POC ABG pH 7.187 L (7.35-7.45) Sodium (137-145) mmol/L Potassium (3.6-5.0) mmol/L Carbon Dioxide (22-30) mmol/L BUN (7-17) mg/dL Creatinine (0.7-1.2) mg/dL Glucose (65-100) mg/dL POC Glucose 186 H (70-105) Calcium (8.4-10.2) mg/dL Phosphorus (2.5-4.5) mg/dL Magnesium (1.7-2.3) mg/dL AST (5-40) units/L ALT (7-56) units/L CK-MB (CK-2) 7.0 H (0.0-4.0) ng/mL CK-MB (CK-2) Rel Index 7.7 H (0-4) Troponin T 0.042 H (0.00-0.029) ng/mL C-Reactive Protein (0.00-1.30) mg/dL Total Protein (6.3-8.2) g/dL Albumin (3.9-5) g/dL 08/24/17 08/24/17 08/24/17 Range/Units 07:32 07:33 07:33 WBC 60.8 H* (4.5-11.0) K/mm3 RBC 3.37 L (3.65-5.03) M/mm3 Hgb 9.7 L (10.1-14.3) gm/dl RDW 19.2 H (13.2-15.2) % Seg Neuts % (Manual) 97.0 H (40.0-70.0) % Lymphocytes % (Manual) 0.5 L (13.4-35.0) % Nucleated RBC % 1.5 H (0.0-0.9) % Seg Neutrophils # Man 59.0 H (1.8-7.7) K/mm3 Lymphocytes # (Manual) 0.3 L (1.2-5.4) K/mm3 POC ABG pH (7.35-7.45) Sodium 135 L (137-145) mmol/L Potassium 3.4 L (3.6-5.0) mmol/L Carbon Dioxide 15 L (22-30) mmol/L BUN 58 H (7-17) mg/dL Creatinine 2.4 H (0.7-1.2) mg/dL Glucose 105 H (65-100) mg/dL POC Glucose 130 H (70-105) Calcium 6.4 L (8.4-10.2) mg/dL Phosphorus 6.40 H (2.5-4.5) mg/dL Magnesium 1.20 L (1.7-2.3) mg/dL AST 65 H (5-40) units/L ALT 86 H (7-56) units/L CK-MB (CK-2) (0.0-4.0) ng/mL CK-MB (CK-2) Rel Index (0-4) Troponin T (0.00-0.029) ng/mL C-Reactive Protein (0.00-1.30) mg/dL Total Protein 4.7 L (6.3-8.2) g/dL Albumin 2.2 L (3.9-5) g/dL
[2017-08-24] MEDS ORDERED: KLOR-CON FEEDTUBE SCH (16:00)
[2017-08-24] MEDS: VANCOMYCIN PO PO SCH (17:32)
[2017-08-25] MEDS: MAXIPIME 1 GM in NACL 0.9% 20 ML IV SCH ×2 (00:10→13:26)
[2017-08-25] MEDS: VITAMIN C PO SCH ×3 (00:11→22:03)
[2017-08-25] MEDS: ELIQUIS PO SCH ×3 (00:11→22:03)
[2017-08-25] MEDS: PEPCID PO SCH ×3 (00:11→22:03)
[2017-08-25] MEDS: TYLENOL PO PRN ×2 (00:11→22:03)
[2017-08-25] MEDS: VANCOMYCIN PO PO SCH ×4 (01:41→18:40)
[2017-08-25] MEDS: D5NS 1,000 ML IV SCH (03:48)
[2017-08-25] MEDS: FLAGYL 500 MG/100 ML 500 MG/100 ML BAG IV SCH ×3 (03:50→20:26)
--- NOTE | 2017-08-25 07:28 | Progress Note ---
Assessment and Plan 1. Acute kidney injury: LUIS superimposed on CKD stage 3 in the setting of sepsis / shock. Renal function is improving. Continue IV fluids. Monitor renal function. 2. Metabolic acidosis: Continue IV fluids. Monitor acid-base status. 3. Hyponatremia: Gradually improving. Monitor. 4. Hypotension: Off Levophed. Continue IV fluids. BP is improving. 5. Electrolytes: Replete K and Ca. 6. Suspected Urosepsis. Subjective Date of service: 08/25/17 Principal diagnosis: sepsis Interval history: Patient was seen and examined at the bedside. She is feeling better. Objective - Vital Signs Vital signs: Vital Signs - 12hr 08/24/17 08/25/17 08/25/17 20:14 00:11 00:29 Temperature 97.4 F L 97.9 F Pulse Rate 97 H Respiratory 16 20 18 Rate Blood Pressure 99/60 96/51 O2 Sat by Pulse 99 Oximetry 08/25/17 08/25/17 08/25/17 00:40 00:44 04:25 Temperature Pulse Rate 101 H 101 H 94 H Respiratory Rate Blood Pressure 86/40 O2 Sat by Pulse 100 99 100 Oximetry - General Appearance General appearance: well-developed, appears stated age, cachectic, frail EENT: ATNC, PERRL Neck: no JVD Respiratory: Present: Clear to Ascultation Cardiology: S1S2, no murmurs Gastrointestinal: normoactive bowel sounds, other (Ostomy noted) Integumentary: decubiti Neurologic: no focal deficit, no asterixis Musculoskeletal: other (no edema) Psychiatric: mood/affect appropriate, cooperative - Lab 08/26/17 05:29 08/26/17 05:29 Most recent lab results Calcium 6.4 mg/dL (8.4-10.2) L 08/24/17 07:33 Phosphorus 6.40 mg/dL (2.5-4.5) H 08/24/17 07:33 Magnesium 1.20 mg/dL (1.7-2.3) L 08/24/17 07:33 Urine Creatinine < 4.2 mg/dL (0.1-20.0) 08/23/17 07:19 Urine Sodium 10 mmol/L 08/23/17 07:19
--- NOTE | 2017-08-25 09:07 | Hem/Onc Progress Note ---
Assessment and Plan leucocytosis- possibly reactive flow ordered. not a candidate for bmbx yet unless flow abnormal continue to monitor cultures pending Subjective Date of service: 08/25/17 Interval history: events noted. pt confused. talking a little today. c/o pain all over Objective - Constitutional Vitals: Last Vital Signs Temp 97.9 F 08/25/17 00:29 Pulse 94 H 08/25/17 04:25 Resp 18 08/25/17 00:29 BP 86/40 08/25/17 04:25 Pulse Ox 100 08/25/17 04:25 General appearance: mild distress Performance status: 4-completely disabled - Neck Neck: supple - Respiratory Respiratory: bilateral: diminished - Cardiovascular Rhythm: regular Extremities: No edema, abnormal (decub) - Gastrointestinal General gastrointestinal: Present: soft - Labs Lab Results: Laboratory Results - last 24 hr 08/24/17 08/24/17 08/24/17 07:33 15:26 22:03 Add Manual Diff Complete Total Counted 200 Seg Neuts % (Manual) 97.0 H Band Neutrophils % 1.5 Lymphocytes % (Manual) 0.5 L Reactive Lymphs % (Man) 0 Monocytes % (Manual) 1.0 Eosinophils % (Manual) 0 Basophils % (Manual) 0 Metamyelocytes % 0 Myelocytes % 0 Promyelocytes % 0 Blast Cells % 0 Nucleated RBC % 1.5 H Seg Neutrophils # Man 59.0 H Band Neutrophils # 0.9 Lymphocytes # (Manual) 0.3 L Abs React Lymphs (Man) 0.0 Monocytes # (Manual) 0.6 Eosinophils # (Manual) 0.0 Basophils # (Manual) 0.0 Metamyelocytes # 0.0 Myelocytes # 0.0 Promyelocytes # 0.0 Blast Cells # 0.0 WBC Morphology Not Reportable Hypersegmented Neuts Not Reportable Hyposegmented Neuts Not Reportable Hypogranular Neuts Not Reportable Smudge Cells Not Reportable Toxic Granulation Not Reportable Toxic Vacuolation Not Reportable Dohle Bodies Not Reportable Pelger-Huet Anomaly Not Reportable Neisha Rods Not Reportable Platelet Estimate Cons Clumped Platelets Not Reportable Plt Clumps, EDTA Not Reportable Large Platelets Not Reportable Giant Platelets Not Reportable Platelet Satelliting Not Reportable Plt Morphology Comment Not Reportable RBC Morphology Not Reportable Dimorphic RBCs Not Reportable Polychromasia Not Reportable Hypochromasia Not Reportable Poikilocytosis 2+ Anisocytosis 1+ Microcytosis Not Reportable Macrocytosis Not Reportable Spherocytes Not Reportable Pappenheimer Bodies Not Reportable Sickle Cells Not Reportable Target Cells Few Tear Drop Cells Not Reportable Ovalocytes Not Reportable Helmet Cells Not Reportable Frank[place] Bodies Not Reportable [place] Rings Not Reportable [place] Cells 1+ Bite Cells Not Reportable Crenated Cell Not Reportable Elliptocytes Not Reportable Acanthocytes (Spur) 1+ Rouleaux Not Reportable Hemoglobin C Crystals Not Reportable Schistocytes Not Reportable Malaria parasites Not Reportable Herve Bodies Not Reportable Hem Pathologist Commnt No POC Glucose 148 H 156 H 08/25/17 06:48 Add Manual Diff Total Counted Seg Neuts % (Manual) Band Neutrophils % Lymphocytes % (Manual) Reactive Lymphs % (Man) Monocytes % (Manual) Eosinophils % (Manual) Basophils % (Manual) Metamyelocytes % Myelocytes % Promyelocytes % Blast Cells % Nucleated RBC % Seg Neutrophils # Man Band Neutrophils # Lymphocytes # (Manual) Abs React Lymphs (Man) Monocytes # (Manual) Eosinophils # (Manual) Basophils # (Manual) Metamyelocytes # Myelocytes # Promyelocytes # Blast Cells # WBC Morphology Hypersegmented Neuts Hyposegmented Neuts Hypogranular Neuts Smudge Cells Toxic Granulation Toxic Vacuolation Dohle Bodies Pelger-Huet Anomaly Neisha Rods Platelet Estimate Clumped Platelets Plt Clumps, EDTA Large Platelets Giant Platelets Platelet Satelliting Plt Morphology Comment RBC Morphology Dimorphic RBCs Polychromasia Hypochromasia Poikilocytosis Anisocytosis Microcytosis Macrocytosis Spherocytes Pappenheimer Bodies Sickle Cells Target Cells Tear Drop Cells Ovalocytes Helmet Cells [place] Bodies Foster Rings [place] Cells Bite Cells Crenated Cell Elliptocytes Acanthocytes (Spur) Rouleaux Hemoglobin C Crystals Schistocytes Malaria parasites Herve Bodies Hem Pathologist Commnt POC Glucose 96
[2017-08-25] MEDS ORDERED: LEVAQUIN 500MG/100ML 500 MG/100 ML BAG IV SCH (10:00)
--- NOTE | 2017-08-25 10:26 | Progress Note ---
Assessment and Plan Assessment: 1) Sepsis: still tachycardia, leukocytosis with leukomoid reaction. Etiology most likely ? UTI ? ? 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 sacral decubitus -CT showed rectosigmoid thickening, RLL spiculated nodule -CRP=17 2) UTI: UA c/w UTI. previous urine cx + Sho ? colonizer 3) AMS: metabolic ? 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 8) Left hip and sacral pressure ulcers. 9) DVT 10) ?? 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 abscess ? osteo Plan: -Surgery consult Dr Paris in view of CT findings ? periostomal abscess -CT pelvis was incomplete asked radiology to r/o sacral osteo/abscess and Dr Khanna reported no osteo/abscess ? periostomal hernia or abscess -Hem consult appreciate -Cdiff from stool - pending -continue PO vanco for now until C diff r/o -day 2 -continue cefepime and flagyl - day 2 -contact isolation until C diff r/o -follow-up blood cultures, urine culture -wound care consult Thank you for your consultation, will follow up with you. Winifred Guerrero MD Infectious Diseases Specialist [facility] M [phone] O [phone] Subjective Date of service: 08/25/17 Principal diagnosis: sepsis Interval history: Feels better, more alert and talking but unclear speech, no fever. Microbiology: Blood cultures: 08/23 ngtd Current Antimicrobials: Cefepime flagyl Vanco po Previous Antimicrobials: Zosyn Levaquin Objective - Exam Narrative Exam: General appearance: Alert confused in NAD Eyes: anicteric sclerae, moist conjunctivae; no lid-lag; PERRLA HENT: Atraumatic; oropharynx clear poor dentition Neck: Trachea midline; supple, no thyromegaly or lymphadenopathy Lungs: CTA CV: RRR, no murmurs Abdomen: Soft, non-tender + colostomy bag Extremities: No peripheral edema or extremity lymphadenopathy Skin: +sacral decubitus eschar left hip Psych: confused Neuro: confused Lines: No CVL / PICC - Constitutional Vitals: Vital Signs Temp Pulse Resp BP Pulse Ox 97.9 F 100 H 18 96/62 99 08/25/17 08:40 08/25/17 08:40 08/25/17 08:40 08/25/17 08:40 08/25/17 09:12 Temperature -Last 24 Hours Temperature 97.9 F Temperature 97.9 F Temperature 97.4 F Temperature 97.5 F Temperature 97.3 F Temperature 97.3 F - Labs CBC & Chem 7: 08/24/17 07:33 08/24/17 07:33 Labs: Abnormal lab results 08/24/17 08/24/17 08/24/17 Range/Units 07:33 15:26 22:03 Seg Neuts % (Manual) 97.0 H (40.0-70.0) % Lymphocytes % (Manual) 0.5 L (13.4-35.0) % Nucleated RBC % 1.5 H (0.0-0.9) % Seg Neutrophils # Man 59.0 H (1.8-7.7) K/mm3 Lymphocytes # (Manual) 0.3 L (1.2-5.4) K/mm3 POC Glucose 148 H 156 H (70-105)
[2017-08-25 11:31] LABS: Calcium 6.6 mg/dL (8.4-10.2)
[2017-08-25] MEDS ORDERED: VANCOMYCIN 750 MG in NACL 0.9% 250ML 250 ML IV ONE (12:00)
[2017-08-25] MEDS ORDERED: KLOR-CON FEEDTUBE SCH (13:00)
[2017-08-25] MEDS ORDERED: CALCIUM GLUCONATE 2,000 MG in NACL 0.9% 100 ML IV ONE (13:00)
[2017-08-25] MEDS ORDERED: KLOR-CON PO NR (13:13)
--- NOTE | 2017-08-25 14:18 | Progress Note ---
Assessment and Plan Assessment and plan: Sepsis. Now on Cefepime, vancomycin and flagyl. Blood cultures x 2 drawn ID Physician following Sepsis due to MRSA. On Vancomycin Toxic metabolic encephalopathy. Supportive care, neurochecks. Possible colitis as per CT Abdomen. patient evaluated by Dr. Paris, Surgeon. I discussed case with him and he recommends GI consult for poss scope. Urinary tract infection. She had indwelling catheter. Urine cultures ordered. Started on iv antibiotics Septic shock. Gave ivf bolus 4 liters in ED. Cont IVF to keep MAP>65 Decubitus ulcers. Consulted wound care Nurse COPD. On home Oxygen. Pulmonology following. Chronic CHF. Acute on CKD. Improving. Creatinine 2.[address] Martines, Director Regulatory Compliance following Marked leukocytosis. WBC 74 on admission, now down to 42. She had history of marked leukocytosis before and was supposed to follow as outpatient to work up for leukemia. Metabolic acidosis due to sepsis, renal failure Hyponatremia. Continue iv fluids. Colostomy. History of DVT. Continue Eliqios. DVT prophylaxis. Patient on Eliquis. Full code status. I discussed with patient and son at bedside. Prognosis guarded. History Interval history: Altered mental status improving More alert no fever Hospitalist Physical - Physical exam Narrative exam: Gen appearance: Not in acute distress, lying in bed, cachectic HEENT:Normocephalic,atraumatic Lungs: Clear to auscultation bilaterally, no crackles , no wheeze Heart: S1 and S2 regular, no murmurs, rubs or gallop Abdomen: soft, non tender, non distended, normal bowel sounds,colostomy Ext: No edema, no clubbing, no cyanosis Neuro: Awake,alert, follows commands, no focal signs Sacral decubitus ulcers Psych: Normal mood - Constitutional Vitals: Temp Pulse Resp BP Pulse Ox 97.9 F 100 H 18 96/62 99 08/25/17 08:40 08/25/17 08:40 08/25/17 08:40 08/25/17 08:40 08/25/17 09:12 General appearance: Present: cachectic Results - Labs CBC & Chem 7: 08/25/17 14:47 08/25/17 11:00 Labs: Laboratory Last Values WBC 60.8 K/mm3 (4.5-11.0) H* 08/24/17 07:33 RBC 3.37 M/mm3 (3.65-5.03) L 08/24/17 07:33 Hgb 9.7 gm/dl (10.1-14.3) L 08/24/17 07:33 Hct 30.9 % (30.3-42.9) 08/24/17 07:33 MCV 92 fl (79-97) 08/24/17 07:33 MCH 29 pg (28-32) 08/24/17 07:33 MCHC 32 % (30-34) 08/24/17 07:33 RDW 19.2 % (13.2-15.2) H 08/24/17 07:33 Plt Count 335 K/mm3 (140-440) 08/24/17 07:33 Add Manual Diff Complete 08/24/17 07:33 Total Counted 200 08/24/17 07:33 Seg Neutrophils % [employer] 08/23/17 05:58 Seg Neuts % (Manual) 97.0 % (40.0-70.0) H 08/24/17 07:33 Band Neutrophils % 1.5 % 08/24/17 07:33 Lymphocytes % (Manual) 0.5 % (13.4-35.0) L 08/24/17 07:33 Reactive Lymphs % (Man) 0 % 08/24/17 07:33 Monocytes % (Manual) 1.0 % (0.0-7.3) 08/24/17 07:33 Eosinophils % (Manual) 0 % (0.0-4.3) 08/24/17 07:33 Basophils % (Manual) 0 % (0.0-1.8) 08/24/17 07:33 Metamyelocytes % 0 % 08/24/17 07:33 Myelocytes % 0 % 08/24/17 07:33 Promyelocytes % 0 % 08/24/17 07:33 Blast Cells % 0 % 08/24/17 07:33 Nucleated RBC % 1.5 % (0.0-0.9) H 08/24/17 07:33 Seg Neutrophils # Man 59.0 K/mm3 (1.8-7.7) H 08/24/17 07:33 Band Neutrophils # 0.9 K/mm3 08/24/17 07:33 Lymphocytes # (Manual) 0.3 K/mm3 (1.2-5.4) L 08/24/17 07:33 Abs React Lymphs (Man) 0.0 K/mm3 08/24/17 07:33 Monocytes # (Manual) 0.6 K/mm3 (0.0-0.8) 08/24/17 07:33 Eosinophils # (Manual) 0.0 K/mm3 (0.0-0.4) 08/24/17 07:33 Basophils # (Manual) 0.0 K/mm3 (0.0-0.1) 08/24/17 07:33 Metamyelocytes # 0.0 K/mm3 08/24/17 07:33 Myelocytes # 0.0 K/mm3 08/24/17 07:33 Promyelocytes # 0.0 K/mm3 08/24/17 07:33 Blast Cells # 0.0 K/mm3 08/24/17 07:33 WBC Morphology Not Reportable 08/24/17 07:33 Hypersegmented Neuts Not Reportable 08/24/17 07:33 Hyposegmented Neuts Not Reportable 08/24/17 07:33 Hypogranular Neuts Not Reportable 08/24/17 07:33 Smudge Cells Not Reportable 08/24/17 07:33 Toxic Granulation Not Reportable 08/24/17 07:33 Toxic Vacuolation Not Reportable 08/24/17 07:33 Dohle Bodies Not Reportable 08/24/17 07:33 Pelger-Huet Anomaly Not Reportable 08/24/17 07:33 Neisha Rods Not Reportable 08/24/17 07:33 Platelet Estimate Cons 08/24/17 07:33 Clumped Platelets Not Reportable 08/24/17 07:33 Plt Clumps, EDTA Not Reportable 08/24/17 07:33 Large Platelets Not Reportable 08/24/17 07:33 Giant Platelets Not Reportable 08/24/17 07:33 Platelet Satelliting Not Reportable 08/24/17 07:33 Plt Morphology Comment Not Reportable 08/24/17 07:33 RBC Morphology Not Reportable 08/24/17 07:33 Dimorphic RBCs Not Reportable 08/24/17 07:33 Polychromasia Not Reportable 08/24/17 07:33 Hypochromasia Not Reportable 08/24/17 07:33 Poikilocytosis 2+ 08/24/17 07:33 Anisocytosis 1+ 08/24/17 07:33 Microcytosis Not Reportable 08/24/17 07:33 Macrocytosis Not Reportable 08/24/17 07:33 Spherocytes Not Reportable 08/24/17 07:33 Pappenheimer Bodies Not Reportable 08/24/17 07:33 Sickle Cells Not Reportable 08/24/17 07:33 Target Cells Few 08/24/17 07:33 Tear Drop Cells Not Reportable 08/24/17 07:33 Ovalocytes Not Reportable 08/24/17 07:33 Helmet Cells Not Reportable 08/24/17 07:33 [place] Bodies Not Reportable 08/24/17 07:33 Anita Rings Not Reportable 08/24/17 07:33 Damián Cells 1+ 08/24/17 07:33 Bite Cells Not Reportable 08/24/17 07:33 Crenated Cell Not Reportable 08/24/17 07:33 Elliptocytes Not Reportable 08/24/17 07:33 Acanthocytes (Spur) 1+ 08/24/17 07:33 Rouleaux Not Reportable 08/24/17 07:33 Hemoglobin C Crystals Not Reportable 08/24/17 07:33 Schistocytes Not Reportable 08/24/17 07:33 Malaria parasites Not Reportable 08/24/17 07:33 Herve Bodies Not Reportable 08/24/17 07:33 Hem Pathologist Commnt No 08/24/17 07:33 PT 25.5 Sec. (12.2-14.9) H 08/23/17 05:58 INR 2.16 (0.87-1.13) H 08/23/17 05:58 APTT 46.4 Sec. (24.2-36.6) H 08/23/17 05:58 POC ABG pH 7.187 (7.35-7.45) L 08/23/17 18:00 POC ABG pCO2 35.2 (35-45) 08/23/17 18:00 POC ABG pO2 86 (80-105) 08/23/17 18:00 POC ABG HCO3 13.3 08/23/17 18:00 POC ABG Total CO2 14 08/23/17 18:00 POC ABG O2 Sat 94 08/23/17 18:00 POC ABG Base Excess -15 08/23/17 18:00 FiO2 21 % 08/23/17 18:00 Sodium 135 mmol/L (137-145) L 08/25/17 11:00 Potassium 3.6 mmol/L (3.6-5.0) 08/25/17 11:00 Chloride 102.2 mmol/L (98-107) 08/25/17 11:00 Carbon Dioxide 12 mmol/L (22-30) L 08/25/17 11:00 Anion Gap 24 mmol/L 08/25/17 11:00 BUN 53 mg/dL (7-17) H 08/25/17 11:00 Creatinine 2.2 mg/dL (0.7-1.2) H 08/25/17 11:00 Estimated GFR 27 ml/min 08/25/17 11:00 BUN/Creatinine Ratio 24 % 08/25/17 11:00 Glucose 97 mg/dL (65-100) 08/25/17 11:00 POC Glucose 96 (70-105) 08/25/17 06:48 Lactic Acid 1.10 mmol/L (0.7-2.0) 08/23/17 08:46 Calcium 6.6 mg/dL (8.4-10.2) L 08/25/17 11:00 Phosphorus 6.40 mg/dL (2.5-4.5) H 08/24/17 07:33 Magnesium 2.50 mg/dL (1.7-2.3) H 08/25/17 11:00 Total Bilirubin 0.20 mg/dL (0.1-1.2) 08/24/17 07:33 AST 65 units/L (5-40) H 08/24/17 07:33 ALT 86 units/L (7-56) H 08/24/17 07:33 Alkaline Phosphatase 82 units/L (35-129) 08/24/17 07:33 Total Creatine Kinase 90 units/L (30-135) 08/23/17 21:45 CK-MB (CK-2) 7.0 ng/mL (0.0-4.0) H 08/23/17 21:45 CK-MB (CK-2) Rel Index 7.7 (0-4) H 08/23/17 21:45 Troponin T 0.042 ng/mL (0.00-0.029) H 08/23/17 21:45 C-Reactive Protein 17.50 mg/dL (0.00-1.30) H 08/23/17 15:49 NT-Pro-B Natriuret Pep 8480 pg/mL (0-900) H 08/23/17 05:58 Total Protein 4.7 g/dL (6.3-8.2) L 08/24/17 07:33 Albumin 2.2 g/dL (3.9-5) L 08/24/17 07:33 Albumin/Globulin Ratio 0.9 % 08/24/17 07:33 Triglycerides 76 mg/dL (2-149) 08/23/17 05:58 Cholesterol 115 mg/dL (50-199) 08/23/17 05:58 LDL Cholesterol Direct 48 mg/dL (50-130) L 08/23/17 05:58 HDL Cholesterol 52 mg/dL (40-59) 08/23/17 05:58 Cholesterol/HDL Ratio 2.21 % 08/23/17 05:58 Lipase 18 units/L (13-60) 08/23/17 05:58 TSH 4.110 mlU/mL (0.270-4.200) 08/23/17 05:58 Free T4 1.04 ng/dL (0.76-1.46) 08/23/17 05:58 Urine Color Yellow (Yellow) 08/23/17 07:19 Urine Turbidity Turbid (Clear) 08/23/17 07:19 Urine pH 5.0 (5.0-7.0) 08/23/17 07:19 Ur Specific [place] 1.013 (1.003-1.030) 08/23/17 07:19 Urine Protein 100 mg/dl mg/dL (Negative) 08/23/17 07:19 Urine Glucose (UA) Neg mg/dL (Negative) 08/23/17 07:19 Urine Ketones Neg mg/dL (Negative) 08/23/17 07:19 Urine Blood Mod (Negative) 08/23/17 07:19 Urine Nitrite Neg (Negative) 08/23/17 07:19 Urine Bilirubin Neg (Negative) 08/23/17 07:19 Urine Urobilinogen < 2.0 mg/dL (<2.0) 03/03/18 07:19 Ur Leukocyte Esterase Mod (Negative) 08/23/17 07:19 Urine WBC (Auto) > 182.0 /HPF (0.0-6.0) H 08/23/17 07:19 Urine RBC (Auto) < 1.0 /HPF (0.0-6.0) 08/23/17 07:19 Urine Bacteria (Auto) 3+ /HPF (Negative) 08/23/17 07:19 Urine Creatinine < 4.2 mg/dL (0.1-20.0) 08/23/17 07:19 Urine Sodium 10 mmol/L 08/23/17 07:19 Blood Type AB POSITIVE 08/23/17 10:22 Antibody Screen Negative 08/23/17 10:22
--- NOTE | 2017-08-25 14:19 | Progress Note ---
Assessment and Plan Called to see pt secondary to high wbc. r/o intra abd source of infection History of present illness: Patient is 62 yo sent in from long-term. She has history of dvt, CHF, COPD on home oxygen, Chronic kidney disease, follows with Nephrology. She was sent in for altered mental status, somnolence. Patient cannot provide any history since she is very somnolent. Minimal history obtained from long-term records and hospital medical records. She has not been eating or drinking much and is very weak, and has been very sleepy past few days. In Emergency Department, she is Lethargic. labs show marked leukocytosis with WBC 74.5, Creatinine 3.5. She diagnosed with sepsis, UTI, acute on chronic kidney disease. Will admit. Past History Past Medical History: COPD, DVT, heart failure, hyperlipidemia, renal failure ( chronic kidney disease), other (Sepsis,septic shock, Leukocytosis,hyponatremia, chronic resp failure on home Oxygen) Past Surgical History: hysterectomy, bowel surgery (partial colectomy) Social history: full code, other (Lives in SNF). denies: smoking, alcohol abuse Pt know to me from previous subtotal colectomy secondary to C difficile toxic megacolon a few months back. now elevated wbc altered mental status no hx able to be obtained (above hx from chart) Abd soft. ileostomy functioning well. cloudy urine noted in causey sacral decubitus clean and granulating CT reviewed with Dr. Khanna. no clear source of intra abd infection rec - await UA C&S results consider CT abd & pelvis with PO and IV contrast if able to be performed from renal perspective GI eval for sigmoidoscopy. eval recto sigmoid stump mucosa to r/o and signs of coliltis. No indications for surgical intervention at this time. will follow [facility] you. Selected Entries 08/25/17 08:40 Temperature 97.9 F Pulse Rate 100 H Respiratory 18 Rate Blood Pressure 96/62 [Left] Laboratory Tests 08/24/17 08/25/17 07:33 11:00 WBC 60.8 H* Hgb 9.7 L Hct 30.9 Sodium 135 L Potassium 3.6 Chloride 102.2 BUN 53 H Creatinine 2.2 H Objective Vital Signs - 12hr 08/25/17 08/25/17 08/25/17 04:25 08:40 09:12 Temperature 97.9 F Pulse Rate 94 H 100 H Respiratory 18 Rate Blood Pressure 86/40 Blood Pressure 96/62 [Left] O2 Sat by Pulse 100 94 99 Oximetry - Labs 08/24/17 07:33 08/25/17 11:00 Diabetes panel 08/25/17 Range/Units 11:00 Sodium 135 L (137-145) mmol/L Potassium 3.6 (3.6-5.0) mmol/L Chloride 102.2 (98-107) mmol/L Carbon Dioxide 12 L (22-30) mmol/L BUN 53 H (7-17) mg/dL Creatinine 2.2 H (0.7-1.2) mg/dL Glucose 97 (65-100) mg/dL Calcium 6.6 L (8.4-10.2) mg/dL Calcium panel 08/25/17 Range/Units 11:00 Calcium 6.6 L (8.4-10.2) mg/dL Pituitary panel 08/25/17 Range/Units 11:00 Sodium 135 L (137-145) mmol/L Potassium 3.6 (3.6-5.0) mmol/L Chloride 102.2 (98-107) mmol/L Carbon Dioxide 12 L (22-30) mmol/L BUN 53 H (7-17) mg/dL Creatinine 2.2 H (0.7-1.2) mg/dL Glucose 97 (65-100) mg/dL Calcium 6.6 L (8.4-10.2) mg/dL Adrenal panel 08/25/17 Range/Units 11:00 Sodium 135 L (137-145) mmol/L Potassium 3.6 (3.6-5.0) mmol/L Chloride 102.2 (98-107) mmol/L Carbon Dioxide 12 L (22-30) mmol/L BUN 53 H (7-17) mg/dL Creatinine 2.2 H (0.7-1.2) mg/dL Glucose 97 (65-100) mg/dL Calcium 6.6 L (8.4-10.2) mg/dL
[2017-08-25 15:07] LABS: Mean Corpuscular HGB Conc 32 % (30-34); Mean Corpuscular Hemoglobin 29 pg (28-32); Mean Corpuscular Volume 91 fl (79-97); Platelet Count 243 K/mm3 (140-440); Red Blood Count 3.09 M/mm3 (3.65-5.03); Red Cell Distribution Width 19.8 % (13.2-15.2)
[2017-08-26] MEDS: VANCOMYCIN PO PO SCH ×4 (00:15→22:19)
--- NOTE | 2017-08-26 02:23 | Consultation ---
REASON FOR CONSULTATION: Rule out intra-abdominal source of infection. HISTORY OF PRESENT ILLNESS: The patient is a 62-year-old female who is known to me from a previous subtotal colectomy I think 3-4 months ago secondary to Clostridium difficile toxic megacolon. At this time, the patient is readmitted to the hospital with a chief complaint of altered mental status and a very high white count. The patient currently has an altered mental status and no history could be obtained. Some history reviewed from the chart notes that she has had a history of DVT, CHF, COPD on home oxygen as well as chronic kidney disease. Most recent white count showed a white count of 60.8 thus the reason for my consultation from ID today. LABORATORY DATA: CT of the abdomen and pelvis has been performed, which I reviewed with Dr. Khanna. In review, there is no clear source of intra-abdominal infection. There had been a questionable signs of ostomy abscess, but this is not really reflected on the CT findings. No real evidence of any inflammatory changes in this area and not clinically. The skin is soft. No evidence of induration or erythema. Also, there had been a question of a possible colitis in the distal sigmoid rectal stump, but again in reviewing with Dr. Khanna, there does not appear any signs of this either. PHYSICAL EXAMINATION: GENERAL: At this time reveals the patient to be resting comfortably in bed. ABDOMEN: Soft and nontender. Ostomy is checked as previously mentioned. She also does have a large sacral decubitus, but this area is clean and granulating. No evidence of infection here at least no superficial infection though osteomyelitis does need to be ruled out. Cloudy urine is also noted on the Castillo catheter. IMPRESSION: At this time is that of a 62-year-old female, rule out sepsis, though no intra-abdominal source of infection can be clearly seen at this time. 1. Rule out possible pyelonephritis, awaiting urinalysis, culture and sensitivity. 2. We would recommend Gastroenterology evaluation for a flex sigmoidoscopy to evaluate the rectosigmoid stump mucosa to rule out any signs of colitis. 3. Possible bone scan to rule out osteo in the sacral region, but again at this time no clear cut indications for surgical intervention. We will follow with you. Thank you very much for consultation. JOB# [id number] FP/NTS
[2017-08-26] MEDS: FLAGYL 500 MG/100 ML 500 MG/100 ML BAG IV SCH ×3 (04:01→22:17)
[2017-08-26] MEDS: ULTRAM PO PRN (04:06)
[2017-08-26 06:23] LABS: Hematocrit 25.6 % (30.3-42.9); Hemoglobin 8.3 gm/dl (10.1-14.3); Mean Corpuscular HGB Conc 32 % (30-34); Mean Corpuscular Hemoglobin 29 pg (28-32); Mean Corpuscular Volume 90 fl (79-97); Platelet Count 199 K/mm3 (140-440); Red Blood Count 2.84 M/mm3 (3.65-5.03); Red Cell Distribution Width 19.4 % (13.2-15.2)
[2017-08-26 06:44] LABS: Calcium 7.4 mg/dL (8.4-10.2)
--- NOTE | 2017-08-26 08:24 | Progress Note ---
Assessment and Plan 1. Acute kidney injury: LUIS superimposed on CKD stage 3 in the setting of sepsis / shock. Renal function continue to improve. Continue IV fluids. Monitor renal function. 2. Metabolic acidosis: Continue IV fluids. Monitor acid-base status. 3. Hyponatremia: Improved. Monitor. 4. Hypotension: Off Levophed. Continue IV fluids. 5. Electrolytes: Replete K. 6. MRSA bacteremia with sepsis: Followed by ID. Subjective Date of service: 08/26/17 Principal diagnosis: sepsis Interval history: Patient was seen and examined at the bedside. She is feeling better. Objective - Vital Signs Vital signs: Vital Signs - 12hr 08/25/17 08/25/17 08/25/17 22:00 22:03 22:10 Temperature Pulse Rate Pulse Rate [ Apical] Respiratory 20 Rate Respiratory 20 Rate [Bilateral Lower Leg] Blood Pressure O2 Sat by Pulse 99 Oximetry 08/25/17 08/25/17 08/25/17 23:00 23:03 23:58 Temperature Pulse Rate 91 H Pulse Rate [ 102 H Apical] Respiratory 20 20 17 Rate Respiratory Rate [Bilateral Lower Leg] Blood Pressure 100/52 O2 Sat by Pulse 100 Oximetry 08/26/17 08/26/17 08/26/17 00:03 03:48 03:53 Temperature 97.8 F 97.7 F Pulse Rate 89 Pulse Rate [ Apical] Respiratory 17 Rate Respiratory Rate [Bilateral Lower Leg] Blood Pressure 98/55 O2 Sat by Pulse 100 Oximetry 08/26/17 08/26/17 04:06 08:11 Temperature Pulse Rate Pulse Rate [ Apical] Respiratory 20 Rate Respiratory Rate [Bilateral Lower Leg] Blood Pressure O2 Sat by Pulse 100 Oximetry - General Appearance General appearance: well-developed, appears stated age, cachectic, frail, other (no distress) EENT: ATNC, PERRL, hearing intact, vision intact Neck: supple Respiratory: Present: Clear to Ascultation Cardiology: regular, S1S2, no murmurs Gastrointestinal: normoactive bowel sounds, other (ostomy noted) Integumentary: decubiti Neurologic: no focal deficit, no asterixis Musculoskeletal: other (no edema) Psychiatric: mood/affect appropriate, cooperative - Lab 08/26/17 05:29 08/26/17 05:29 Most recent lab results Calcium 7.4 mg/dL (8.4-10.2) L 08/26/17 05:29 Phosphorus 6.40 mg/dL (2.5-4.5) H 08/24/17 07:33 Magnesium 2.50 mg/dL (1.7-2.3) H 08/25/17 11:00 Urine Creatinine < 4.2 mg/dL (0.1-20.0) 08/23/17 07:19 Urine Sodium 10 mmol/L 08/23/17 07:19
[2017-08-26] MEDS ORDERED: K-DUR PO NR ×2 (08:30→11:30)
[2017-08-26] MEDS: MAXIPIME 1 GM in NACL 0.9% 20 ML IV SCH (09:21)
[2017-08-26] MEDS: PEPCID PO SCH ×2 (09:21→22:18)
[2017-08-26] MEDS: ELIQUIS PO SCH ×2 (09:22→22:18)
[2017-08-26] MEDS: VITAMIN C PO SCH ×2 (09:22→22:18)
[2017-08-26] MEDS: D5NS 1,000 ML IV SCH (09:22)
--- NOTE | 2017-08-26 09:56 | Progress Note ---
Assessment and Plan Assessment: 1) Sepsis: still tachycardia, leukocytosis with leukomoid reaction better - 74-- >33K. Etiology most likely MRSA septicemia -CRP=17 2) MRSA septicemia: unclear source ? endocarditis ? sacral wound 3) AMS: metabolic ? 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 8) Left hip and sacral pressure ulcers. 9) DVT 10) ?? 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 abscess ? osteo 12) UTI: UA c/w UTI. previous urine cx + Sho ? colonizer Plan: -f/u wound cultures -repeat blood cultures -re-start IV vancomcyin -obtain TTE -Hem consult appreciate -Cdiff from stool - pending -continue PO vanco for now until C diff r/o -day 3 -continue cefepime and flagyl - day 3 -contact isolation for MRSA and until C diff r/o -wound care consult Thank you for your consultation, will follow up with you. Winifred Guerrero MD Infectious Diseases Specialist [facility] ([facility]) M [phone] O [phone] Subjective Date of service: 08/26/17 Principal diagnosis: sepsis Interval history: Feels better, more alert and talking but unclear speech, no fever. Microbiology: Blood cultures: 3/3 MRSA 2 of 4 bottles Current Antimicrobials: Cefepime flagyl Vanco po Previous Antimicrobials: Zosyn Levaquin Objective - Exam Narrative Exam: General appearance: Alert confused in NAD Eyes: anicteric sclerae, moist conjunctivae; no lid-lag; PERRLA HENT: Atraumatic; oropharynx clear poor dentition Neck: Trachea midline; supple, no thyromegaly or lymphadenopathy Lungs: CTA CV: RRR, no murmurs Abdomen: Soft, non-tender + colostomy bag Extremities: No peripheral edema or extremity lymphadenopathy Skin: +sacral decubitus stage IV and left hip DTI Psych: confused Neuro: confused Lines: No CVL / PICC - Constitutional Vitals: Vital Signs Temp Pulse Resp BP Pulse Ox 97.5 F L 76 16 74/37 100 08/26/17 07:25 08/26/17 08:35 08/26/17 07:25 08/26/17 07:25 08/26/17 08:11 Temperature -Last 24 Hours Temperature 97.5 F Temperature 97.7 F Temperature 97.8 F Temperature 97.6 F - Labs CBC & Chem 7: 08/26/17 05:29 08/26/17 05:29 Labs: Abnormal lab results 08/25/17 08/25/17 08/25/17 Range/Units 11:00 11:53 14:47 WBC 42.5 H* (4.5-11.0) K/mm3 RBC 3.09 L (3.65-5.03) M/mm3 Hgb 9.0 L (10.1-14.3) gm/dl Hct 28.0 L (30.3-42.9) % RDW 19.8 H (13.2-15.2) % Sodium 135 L (137-145) mmol/L Potassium (3.6-5.0) mmol/L Carbon Dioxide 12 L (22-30) mmol/L BUN 53 H (7-17) mg/dL Creatinine 2.2 H (0.7-1.2) mg/dL POC Glucose 132 H (70-105) Calcium 6.6 L (8.4-10.2) mg/dL Magnesium 2.50 H (1.7-2.3) mg/dL 08/25/17 08/26/17 08/26/17 Range/Units 22:21 05:29 05:29 WBC 33.1 H (4.5-11.0) K/mm3 RBC 2.84 L (3.65-5.03) M/mm3 Hgb 8.3 L (10.1-14.3) gm/dl Hct 25.6 L (30.3-42.9) % RDW 19.4 H (13.2-15.2) % Sodium (137-145) mmol/L Potassium 3.0 L (3.6-5.0) mmol/L Carbon Dioxide 15 L (22-30) mmol/L BUN 50 H (7-17) mg/dL Creatinine 2.0 H (0.7-1.2) mg/dL POC Glucose 106 H (70-105) Calcium 7.4 L (8.4-10.2) mg/dL Magnesium (1.7-2.3) mg/dL 08/26/17 Range/Units 05:44 WBC (4.5-11.0) K/mm3 RBC (3.65-5.03) M/mm3 Hgb (10.1-14.3) gm/dl Hct (30.3-42.9) % RDW (13.2-15.2) % Sodium (137-145) mmol/L Potassium (3.6-5.0) mmol/L Carbon Dioxide (22-30) mmol/L BUN (7-17) mg/dL Creatinine (0.7-1.2) mg/dL POC Glucose 130 H (70-105) Calcium (8.4-10.2) mg/dL Magnesium (1.7-2.3) mg/dL
[2017-08-26] MEDS ORDERED: NACL 0.9% 1000 ML 1,000 ML ONE ×2 (10:19→11:27)
--- NOTE | 2017-08-26 11:01 | Progress Note ---
Assessment and Plan Assessment and plan: Patient is 62 yo sent in from shelter. She has history of dvt, CHF, COPD on home oxygen, Chronic kidney disease, follows with Nephrology. She was sent in for altered mental status, somnolence. She has not been eating or drinking much and is very weak, and has been very sleepy past few days. She was lethargic , found to have LUIS and sepsis Sepsis. -continue abx ID Physician following Sepsis due to MRSA. On Vancomycin Toxic metabolic encephalopathy. Supportive care, neurochecks. Possible colitis as per CT Abdomen. patient evaluated by Dr. Paris, Surgeon. I discussed case with him and he recommends GI consult for poss scope. planned for egd and c-scope Urinary tract infection.-continue abx as above Septic shock.continue IVF, responding to IVF Decubitus ulcers POA, stage 3 large sacral decub continue wound care. COPD. On home Oxygen. Pulmonology following. Chronic CHF. not in exacerbation Acute on CKD. Improving. Creatinine 2.[address] Martines, Electroencephalogram Technologist following, continue IVF vasomotor nephropathy Marked leukocytosis. WBC 74 on admission, now down to 42. She had history of marked leukocytosis before and was supposed to follow as outpatient to work up for leukemia. -hematology note appreciated, likely reactive, continue to monitor Complete immobility due to frailty -continue supportive care Metabolic acidosis due to sepsis, renal failure continue to rx as above Hyponatremia. Continue iv fluids. sp Colostomy. History Interval history: patient is demented, has been c/o sacral pain no fevers has had low BP no vomiting, no diarrhea Hospitalist Physical - Physical exam Narrative exam: Gen appearance: Not in acute distress, lying in bed, cachectic HEENT:Normocephalic,atraumatic Lungs: Clear to auscultation bilaterally, no crackles , no wheeze Heart: S1 and S2 regular, no murmurs, rubs or gallop Abdomen: soft, non tender, non distended, normal bowel sounds,colostomy Ext: No edema, no clubbing, no cyanosis Neuro: Awake,alert, follows commands, Sacral decubitus ulcers will anyways Psych: demented, but cooperative - Constitutional Vitals: Temp Pulse Resp BP Pulse Ox 97.5 F L 76 16 76/42 100 08/26/17 07:25 08/26/17 08:35 08/26/17 07:25 08/26/17 10:15 08/26/17 08:11 General appearance: Present: cachectic Results - Labs CBC & Chem 7: 08/27/17 13:01 08/28/17 05:58 Labs: Laboratory Last Values WBC 33.1 K/mm3 (4.5-11.0) H 08/26/17 05:29 RBC 2.84 M/mm3 (3.65-5.03) L 08/26/17 05:29 Hgb 8.3 gm/dl (10.1-14.3) L 08/26/17 05:29 Hct 25.6 % (30.3-42.9) L 08/26/17 05:29 MCV 90 fl (79-97) 08/26/17 05:29 MCH 29 pg (28-32) 08/26/17 05:29 MCHC 32 % (30-34) 08/26/17 05:29 RDW 19.4 % (13.2-15.2) H 08/26/17 05:29 Plt Count 199 K/mm3 (140-440) 08/26/17 05:29 Add Manual Diff Complete 08/24/17 07:33 Total Counted 200 08/24/17 07:33 Seg Neutrophils % Self 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 [employer]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 08/23/17 05:58 Seg Neuts % (Manual) 97.0 % (40.0-70.0) H 08/24/17 07:33 Band Neutrophils % 1.5 % 08/24/17 07:33 Lymphocytes % (Manual) 0.5 % (13.4-35.0) L 08/24/17 07:33 Reactive Lymphs % (Man) 0 % 08/24/17 07:33 Monocytes % (Manual) 1.0 % (0.0-7.3) 08/24/17 07:33 Eosinophils % (Manual) 0 % (0.0-4.3) 08/24/17 07:33 Basophils % (Manual) 0 % (0.0-1.8) 08/24/17 07:33 Metamyelocytes % 0 % 08/24/17 07:33 Myelocytes % 0 % 08/24/17 07:33 Promyelocytes % 0 % 08/24/17 07:33 Blast Cells % 0 % 08/24/17 07:33 Nucleated RBC % 1.5 % (0.0-0.9) H 08/24/17 07:33 Seg Neutrophils # Man 59.0 K/mm3 (1.8-7.7) H 08/24/17 07:33 Band Neutrophils # 0.9 K/mm3 08/24/17 07:33 Lymphocytes # (Manual) 0.3 K/mm3 (1.2-5.4) L 08/24/17 07:33 Abs React Lymphs (Man) 0.0 K/mm3 08/24/17 07:33 Monocytes # (Manual) 0.6 K/mm3 (0.0-0.8) 08/24/17 07:33 Eosinophils # (Manual) 0.0 K/mm3 (0.0-0.4) 08/24/17 07:33 Basophils # (Manual) 0.0 K/mm3 (0.0-0.1) 08/24/17 07:33 Metamyelocytes # 0.0 K/mm3 08/24/17 07:33 Myelocytes # 0.0 K/mm3 08/24/17 07:33 Promyelocytes # 0.0 K/mm3 08/24/17 07:33 Blast Cells # 0.0 K/mm3 08/24/17 07:33 WBC Morphology Not Reportable 08/24/17 07:33 Hypersegmented Neuts Not Reportable 08/24/17 07:33 Hyposegmented Neuts Not Reportable 08/24/17 07:33 Hypogranular Neuts Not Reportable 08/24/17 07:33 Smudge Cells Not Reportable 08/24/17 07:33 Toxic Granulation Not Reportable 08/24/17 07:33 Toxic Vacuolation Not Reportable 08/24/17 07:33 Dohle Bodies Not Reportable 08/24/17 07:33 Pelger-Huet Anomaly Not Reportable 08/24/17 07:33 Neisha Rods Not Reportable 08/24/17 07:33 Platelet Estimate Cons 08/24/17 07:33 Clumped Platelets Not Reportable 08/24/17 07:33 Plt Clumps, EDTA Not Reportable 08/24/17 07:33 Large Platelets Not Reportable 08/24/17 07:33 Giant Platelets Not Reportable 08/24/17 07:33 Platelet Satelliting Not Reportable 08/24/17 07:33 Plt Morphology Comment Not Reportable 08/24/17 07:33 RBC Morphology Not Reportable 08/24/17 07:33 Dimorphic RBCs Not Reportable 08/24/17 07:33 Polychromasia Not Reportable 08/24/17 07:33 Hypochromasia Not Reportable 08/24/17 07:33 Poikilocytosis 2+ 08/24/17 07:33 Anisocytosis 1+ 08/24/17 07:33 Microcytosis Not Reportable 08/24/17 07:33 Macrocytosis Not Reportable 08/24/17 07:33 Spherocytes Not Reportable 08/24/17 07:33 Pappenheimer Bodies Not Reportable 08/24/17 07:33 Sickle Cells Not Reportable 08/24/17 07:33 Target Cells Few 08/24/17 07:33 Tear Drop Cells Not Reportable 08/24/17 07:33 Ovalocytes Not Reportable 08/24/17 07:33 Helmet Cells Not Reportable 08/24/17 07:33 [place] Bodies Not Reportable 08/24/17 07:33 Drumright Rings Not Reportable 08/24/17 07:33 Damián Cells 1+ 08/24/17 07:33 Bite Cells Not Reportable 08/24/17 07:33 Crenated Cell Not Reportable 08/24/17 07:33 Elliptocytes Not Reportable 08/24/17 07:33 Acanthocytes (Spur) 1+ 08/24/17 07:33 Rouleaux Not Reportable 08/24/17 07:33 Hemoglobin C Crystals Not Reportable 08/24/17 07:33 Schistocytes Not Reportable 08/24/17 07:33 Malaria parasites Not Reportable 08/24/17 07:33 Herve Bodies Not Reportable 08/24/17 07:33 Hem Pathologist Commnt No 08/24/17 07:33 PT 25.5 Sec. (12.2-14.9) H 08/23/17 05:58 INR 2.16 (0.87-1.13) H 08/23/17 05:58 APTT 46.4 Sec. (24.2-36.6) H 08/23/17 05:58 POC ABG pH 7.187 (7.35-7.45) L 08/23/17 18:00 POC ABG pCO2 35.2 (35-45) 08/23/17 18:00 POC ABG pO2 86 (80-105) 08/23/17 18:00 POC ABG HCO3 13.3 08/23/17 18:00 POC ABG Total CO2 14 08/23/17 18:00 POC ABG O2 Sat 94 08/23/17 18:00 POC ABG Base Excess -15 08/23/17 18:00 FiO2 21 % 08/23/17 18:00 Sodium 138 mmol/L (137-145) 08/26/17 05:29 Potassium 3.0 mmol/L (3.6-5.0) L 08/26/17 05:29 Chloride 105.8 mmol/L (98-107) 08/26/17 05:29 Carbon Dioxide 15 mmol/L (22-30) L 08/26/17 05:29 Anion Gap 20 mmol/L 08/26/17 05:29 BUN 50 mg/dL (7-17) H 08/26/17 05:29 Creatinine 2.0 mg/dL (0.7-1.2) H 08/26/17 05:29 Estimated GFR 30 ml/min 08/26/17 05:29 BUN/Creatinine Ratio 25 % 08/26/17 05:29 Glucose 75 mg/dL (65-100) 08/26/17 05:29 POC Glucose 130 (70-105) H 08/26/17 05:44 Lactic Acid 1.10 mmol/L (0.7-2.0) 08/23/17 08:46 Calcium 7.4 mg/dL (8.4-10.2) L 08/26/17 05:29 Phosphorus 6.40 mg/dL (2.5-4.5) H 08/24/17 07:33 Magnesium 2.50 mg/dL (1.7-2.3) H 08/25/17 11:00 Total Bilirubin 0.20 mg/dL (0.1-1.2) 08/24/17 07:33 AST 65 units/L (5-40) H 08/24/17 07:33 ALT 86 units/L (7-56) H 08/24/17 07:33 Alkaline Phosphatase 82 units/L (35-129) 08/24/17 07:33 Total Creatine Kinase 90 units/L (30-135) 08/23/17 21:45 CK-MB (CK-2) 7.0 ng/mL (0.0-4.0) H 08/23/17 21:45 CK-MB (CK-2) Rel Index 7.7 (0-4) H 08/23/17 21:45 Troponin T 0.042 ng/mL (0.00-0.029) H 08/23/17 21:45 C-Reactive Protein 17.50 mg/dL (0.00-1.30) H 08/23/17 15:49 NT-Pro-B Natriuret Pep 8480 pg/mL (0-900) H 08/23/17 05:58 Total Protein 4.7 g/dL (6.3-8.2) L 08/24/17 07:33 Albumin 2.2 g/dL (3.9-5) L 08/24/17 07:33 Albumin/Globulin Ratio 0.9 % 08/24/17 07:33 Triglycerides 76 mg/dL (2-149) 08/23/17 05:58 Cholesterol 115 mg/dL (50-199) 08/23/17 05:58 LDL Cholesterol Direct 48 mg/dL (50-130) L 08/23/17 05:58 HDL Cholesterol 52 mg/dL (40-59) 08/23/17 05:58 Cholesterol/HDL Ratio 2.21 % 08/23/17 05:58 Lipase 18 units/L (13-60) 08/23/17 05:58 TSH 4.110 mlU/mL (0.270-4.200) 08/23/17 05:58 Free T4 1.04 ng/dL (0.76-1.46) 08/23/17 05:58 Urine Color Yellow (Yellow) 08/23/17 07:19 Urine Turbidity Turbid (Clear) 08/23/17 07:19 Urine pH 5.0 (5.0-7.0) 08/23/17 07:19 Ur Specific [place] 1.013 (1.003-1.030) 08/23/17 07:19 Urine Protein 100 mg/dl mg/dL (Negative) 08/23/17 07:19 Urine Glucose (UA) Neg mg/dL (Negative) 08/23/17 07:19 Urine Ketones Neg mg/dL (Negative) 08/23/17 07:19 Urine Blood Mod (Negative) 08/23/17 07:19 Urine Nitrite Neg (Negative) 08/23/17 07:19 Urine Bilirubin Neg (Negative) 08/23/17 07:19 Urine Urobilinogen < 2.0 mg/dL (<2.0) 08/23/17 07:19 Ur Leukocyte Esterase Mod (Negative) 08/23/17 07:19 Urine WBC (Auto) > 182.0 /HPF (0.0-6.0) H 08/23/17 07:19 Urine RBC (Auto) < 1.0 /HPF (0.0-6.0) 08/23/17 07:19 Urine Bacteria (Auto) 3+ /HPF (Negative) 08/23/17 07:19 Urine Creatinine < 4.2 mg/dL (0.1-20.0) 08/23/17 07:19 Urine Sodium 10 mmol/L 08/23/17 07:19 Random Vancomycin 18.1 ug/mL (0-40.0) 08/26/17 05:29 C. difficile Toxin A&B Negative (Negative) 08/25/17 09:09 Blood Type AB POSITIVE 08/23/17 10:22 Antibody Screen Negative 08/23/17 10:22
--- NOTE | 2017-08-26 13:25 | Progress Note ---
Assessment and Plan Pt somnolent but easily arousable, hypotensive. drinking some liqs as per RN but overall poor po intake Abd non tender noted low h/h and electrolyte imbalances. also dehydrated. septic consider prbc transfusion in lieu of low BP & low h/h consider Tube feedings as indicated. fluid & electrolyte correction urine cult "contaminated" another specimen requested. surgically status quo condition guarded will follow prn Selected Entries 08/26/17 08/26/17 08/26/17 07:25 08:35 10:15 Temperature 97.5 F L Pulse Rate 76 Respiratory 16 Rate Blood Pressure 76/42 [Left] Laboratory Tests 08/25/17 08/26/17 08/26/17 14:47 05:29 05:29 WBC 42.5 H* 33.1 H Hgb 9.0 L 8.3 L Hct 28.0 L 25.6 L Sodium 138 Potassium 3.0 L Chloride 105.8 Carbon Dioxide 15 L BUN 50 H Creatinine 2.0 H Objective Vital Signs - 12hr 08/26/17 08/26/17 08/26/17 03:48 03:53 04:06 Temperature 97.7 F Pulse Rate 89 Respiratory 17 20 Rate Blood Pressure 98/55 Blood Pressure [Left] O2 Sat by Pulse 100 Oximetry 08/26/17 08/26/17 08/26/17 07:25 08:11 08:35 Temperature 97.5 F L Pulse Rate 78 76 Respiratory 16 Rate Blood Pressure 74/37 Blood Pressure [Left] O2 Sat by Pulse 100 100 Oximetry 08/26/17 10:15 Temperature Pulse Rate Respiratory Rate Blood Pressure Blood Pressure 76/42 [Left] O2 Sat by Pulse Oximetry - Labs 08/26/17 05:29 08/26/17 05:29 Diabetes panel 08/26/17 Range/Units 05:29 Sodium 138 (137-145) mmol/L Potassium 3.0 L (3.6-5.0) mmol/L Chloride 105.8 (98-107) mmol/L Carbon Dioxide 15 L (22-30) mmol/L BUN 50 H (7-17) mg/dL Creatinine 2.0 H (0.7-1.2) mg/dL Glucose 75 (65-100) mg/dL Calcium 7.4 L (8.4-10.2) mg/dL Calcium panel 08/26/17 Range/Units 05:29 Calcium 7.4 L (8.4-10.2) mg/dL Pituitary panel 08/26/17 Range/Units 05:29 Sodium 138 (137-145) mmol/L Potassium 3.0 L (3.6-5.0) mmol/L Chloride 105.8 (98-107) mmol/L Carbon Dioxide 15 L (22-30) mmol/L BUN 50 H (7-17) mg/dL Creatinine 2.0 H (0.7-1.2) mg/dL Glucose 75 (65-100) mg/dL Calcium 7.4 L (8.4-10.2) mg/dL Adrenal panel 08/26/17 Range/Units 05:29 Sodium 138 (137-145) mmol/L Potassium 3.0 L (3.6-5.0) mmol/L Chloride 105.8 (98-107) mmol/L Carbon Dioxide 15 L (22-30) mmol/L BUN 50 H (7-17) mg/dL Creatinine 2.0 H (0.7-1.2) mg/dL Glucose 75 (65-100) mg/dL Calcium 7.4 L (8.4-10.2) mg/dL
--- NOTE | 2017-08-26 13:47 | Consultation ---
History of Present Illness Consult date: 08/26/17 Reason for consult: other (Sacral pressure ulcer) - History of present illness History of present illness: 62 yo female with sacral and left hip pressure ulcers. Past History Past Medical History: COPD, DVT, heart failure, hyperlipidemia, renal failure ( chronic kidney disease), other (Sepsis,septic shock, Leukocytosis,hyponatremia, chronic resp failure on home Oxygen) Past Surgical History: hysterectomy, bowel surgery (partial colectomy) Social history: full code, other (Lives in SNF). denies: smoking, alcohol abuse Family history: hypertension Medications and Allergies Allergies Allergy/AdvReac Type Severity Reaction Status Date / Time No Known Allergies Allergy Verified 05/23/15 12:02 Home Medications Medication Instructions Recorded Confirmed Last Taken Type Acetaminophen 650 mg PO Q4HR PRN 08/23/17 08/23/17 Unknown History Apixaban [Eliquis] 5 mg PO BID 08/23/17 08/23/17 08/22/17 History Arformoterol Nebu [Brovana Nebu] 15 mcg IH Q12HR 08/23/17 08/23/17 08/22/17 History Ascorbic Acid 500 mg PO BID 08/23/17 08/23/17 08/22/17 History Bisacodyl 10 mg RC DAILY PRN 08/23/17 08/23/17 Unknown History Famotidine [Pepcid] 10 mg PO BID 08/23/17 08/23/17 08/22/17 History Magnesium Hydroxide [Milk of 30 ml PO Q4HR PRN 08/23/17 08/23/17 Unknown History Magnesia] Petrolatum,White [Vaseline Lip 5 gm TP Q2HR PRN 08/23/17 08/23/17 Unknown History Therapy] traMADol [Ultram] 50 mg PO Q6HR PRN 08/23/17 08/23/17 Unknown History Active Meds: Active Medications Acetaminophen (Tylenol) 650 mg PO Q4H PRN PRN Reason: Pain MILD(1-3)/Fever >100.5/KHOURY Last Admin: 08/25/17 22:03 Dose: 650 mg Apixaban (Eliquis) 5 mg PO BID [facility]; Protocol Last Admin: 08/26/17 09:22 Dose: 5 mg Ascorbic Acid (Vitamin C) 500 mg PO BID [facility] Last Admin: 08/26/17 09:22 Dose: 500 mg Bisacodyl (Dulcolax) 10 mg MT QDAY PRN PRN Reason: Constipation unrelieved by MOM Famotidine (Pepcid) 10 mg PO BID [facility] Last Admin: 08/26/17 09:21 Dose: 10 mg Hydrophilic Ointment (Vaseline Lip Therapy) 5 applic TP Q2H PRN PRN Reason: Dry Lips Metronidazole (Flagyl 500 Mg/100 Ml) 500 mg in 100 mls @ 100 mls/hr IV Q8H [facility] Last Admin: 08/26/17 04:01 Dose: 100 mls/hr Dextrose/Sodium Chloride (D5ns) 1,000 mls @ 75 mls/hr IV DIRECT [facility] Last Admin: 08/26/17 09:22 Dose: 75 mls/hr Cefepime HCl 1 gm/ Sodium (Chloride) 20 mls @ 2 mls/min IV Q24HR [facility] Last Admin: 08/26/17 09:21 Dose: 2 mls/min Magnesium Hydroxide (Milk Of Magnesia) 30 ml PO Q4H PRN PRN Reason: Constipation Ondansetron HCl (Zofran) 4 mg IV Q8H PRN PRN Reason: N/V unrelieved by Reglan Last Admin: 08/26/17 06:07 Dose: 4 mg Tramadol HCl (Ultram) 50 mg PO Q6H PRN PRN Reason: Pain Last Admin: 08/26/17 04:06 Dose: 50 mg Vancomycin HCl (Vancomycin Pharmacy To Dose) 1 each IV PKCONSULT [facility] Vancomycin HCl (Vancomycin Po) 125 mg PO Q6HR [facility] Last Admin: 08/26/17 06:01 Dose: 125 mg Review of Systems ROS unobtainable: due to mental status Exam Vital Signs Pulse Resp BP 123 H 21 81/50 08/23/17 05:54 08/23/17 05:54 08/23/17 05:54 - General physical appearance Positive: well developed, well nourished, no distress - Eyes Positive: PERRL, normal occular movement - ENT Positive: normal pinna, normal nares, normal mucosa, no hearing loss, no congestion - Neck Positive: no masses, no bruits, trachea midline, no venous distension - Respiratory Positive: normal expansion, normal respiratory effort, clear to auscultation - Cardiovascular Rhythm: regular Heart Sounds: Present: S1 & S2. Absent: rub, click - Extremities Extremities: no ischemia, pulses symmetrical, No edema - Breasts Breasts: deferred - Abdomen Abdomen: Present: soft (RLQ ileostomy present with liquid, melanotic appearing stool in bag), bowel sounds normal. Absent: tender, distended Hernia: none - Genitourinary Female Genitourinary: deferred - Integumentary other (There is a 9 X 11 cm fairly clean, stage 4 sacral pressure ulcer and a 6 X 6 cm dry eschar over the left hip area.) Results - Labs 08/26/17 05:29 08/26/17 05:29 Abnormal lab results 08/25/17 08/25/17 08/25/17 Range/Units 11:53 14:47 22:21 WBC 42.5 H* (4.5-11.0) K/mm3 RBC 3.09 L (3.65-5.03) M/mm3 Hgb 9.0 L (10.1-14.3) gm/dl Hct 28.0 L (30.3-42.9) % RDW 19.8 H (13.2-15.2) % Potassium (3.6-5.0) mmol/L Carbon Dioxide (22-30) mmol/L BUN (7-17) mg/dL Creatinine (0.7-1.2) mg/dL POC Glucose 132 H 106 H (70-105) Calcium (8.4-10.2) mg/dL 08/26/17 08/26/17 08/26/17 Range/Units 05:29 05:29 05:44 WBC 33.1 H (4.5-11.0) K/mm3 RBC 2.84 L (3.65-5.03) M/mm3 Hgb 8.3 L (10.1-14.3) gm/dl Hct 25.6 L (30.3-42.9) % RDW 19.4 H (13.2-15.2) % Potassium 3.0 L (3.6-5.0) mmol/L Carbon Dioxide 15 L (22-30) mmol/L BUN 50 H (7-17) mg/dL Creatinine 2.0 H (0.7-1.2) mg/dL POC Glucose 130 H (70-105) Calcium 7.4 L (8.4-10.2) mg/dL 08/26/17 Range/Units 12:12 WBC (4.5-11.0) K/mm3 RBC (3.65-5.03) M/mm3 Hgb (10.1-14.3) gm/dl Hct (30.3-42.9) % RDW (13.2-15.2) % Potassium (3.6-5.0) mmol/L Carbon Dioxide (22-30) mmol/L BUN (7-17) mg/dL Creatinine (0.7-1.2) mg/dL POC Glucose 119 H (70-105) Calcium (8.4-10.2) mg/dL Diabetes panel 08/26/17 Range/Units 05:29 Sodium 138 (137-145) mmol/L Potassium 3.0 L (3.6-5.0) mmol/L Chloride 105.8 (98-107) mmol/L Carbon Dioxide 15 L (22-30) mmol/L BUN 50 H (7-17) mg/dL Creatinine 2.0 H (0.7-1.2) mg/dL Glucose 75 (65-100) mg/dL Calcium 7.4 L (8.4-10.2) mg/dL Calcium panel 08/26/17 Range/Units 05:29 Calcium 7.4 L (8.4-10.2) mg/dL Pituitary panel 08/26/17 Range/Units 05:29 Sodium 138 (137-145) mmol/L Potassium 3.0 L (3.6-5.0) mmol/L Chloride 105.8 (98-107) mmol/L Carbon Dioxide 15 L (22-30) mmol/L BUN 50 H (7-17) mg/dL Creatinine 2.0 H (0.7-1.2) mg/dL Glucose 75 (65-100) mg/dL Calcium 7.4 L (8.4-10.2) mg/dL Adrenal panel 08/26/17 Range/Units 05:29 Sodium 138 (137-145) mmol/L Potassium 3.0 L (3.6-5.0) mmol/L Chloride 105.8 (98-107) mmol/L Carbon Dioxide 15 L (22-30) mmol/L BUN 50 H (7-17) mg/dL Creatinine 2.0 H (0.7-1.2) mg/dL Glucose 75 (65-100) mg/dL Calcium 7.4 L (8.4-10.2) mg/dL Assessment and Plan - Patient Problems (1) Decubitus ulcer, stage IV Current Visit: Yes Status: Acute Plan to address problem: 1) Pressure avoidance 2) Specialty bed 3) Wound care consult 4) Check prealbumin (2) Melena Current Visit: Yes Status: Acute Plan to address problem: 1) Consider discontinuing Eliquis 2) Consider EGD/colonoscopy
[2017-08-26] MEDS: TYLENOL PO PRN (17:37)
[2017-08-26] MEDS ORDERED: GOLYTELY PO ONE (19:11)
--- NOTE | 2017-08-26 23:53 | Consultation ---
INDICATIONS: 1. Abdominal pain. 2. Colitis. HISTORY OF PRESENT ILLNESS: The patient is a 62-year-old female from a correction. She has multiple medical problems including DVT, CHF, COPD, on home oxygen, chronic kidney disease. The patient presented with signs and symptoms of sepsis as well as shock. She is also noted to have decubitus ulcers. The patient subsequently was admitted. The patient's history is pertinent for the fact that she had toxic megacolon, status post surgery towards the end of last year. The patient was noted to have a marked leukocytosis when she was admitted at 72. This is now improved to 31. She denied any other specific GI problems or complaints. PAST MEDICAL HISTORY: 1. COPD. 2. DVT. 3. Heart failure. 4. High cholesterol. 5. Chronic kidney disease. MEDICATIONS: See chart. ALLERGIES: No known drug allergies. SOCIAL HISTORY: Lives in a correction. FAMILY HISTORY: Noncontributory. REVIEW OF SYSTEMS: GENERAL: Reports no weakness. HEENT: No visual complaints. PULMONARY: No shortness of breath. CARDIOVASCULAR: No chest pain. GASTROINTESTINAL: Reports abdominal pain. All points of 13-point review of system otherwise negative. PHYSICAL EXAMINATION: VITAL SIGNS: Temperature of 97.2, pulse 79, respirations 18, blood pressure 100/40. GENERAL: Fairly thin female in no acute distress. HEENT: Pupils equal, round, reactive. PULMONARY: Rhonchi. CARDIOVASCULAR: Regular rhythm. ABDOMEN: Soft. SKIN: No obvious rashes. LABORATORY DATA: White count of 33, hemoglobin and hematocrit 8.3 and 25.6, platelet count of 199. Chem-7 within normal limits except for BUN and creatinine of [address] scan showed some free fluid in the abdomen as well as wall thickening of the distal rectosigmoid with a noted ostomy. ASSESSMENT AND PLAN: A 62-year-old female with multiple medical problems, now been seen by GI for abdominal pain and possible colitis. The patient is status post surgery for toxic megacolon in the past. Management is noted below. PLAN: 1. We will review CT scan. 2. Follow labs. 3. Consider colonoscopy plus or/and possible EGD. 4. We will follow. JOB# [id number] [facility] MTD[facility]
[2017-08-27] MEDS ORDERED: ePHEDrine SULFATE ONE (00:24)
[2017-08-27] MEDS: VANCOMYCIN PO PO SCH ×4 (01:00→18:53)
[2017-08-27] MEDS: ULTRAM PO PRN ×2 (01:43→11:21)
[2017-08-27] MEDS: FLAGYL 500 MG/100 ML 500 MG/100 ML BAG IV SCH ×2 (05:07→12:12)
[2017-08-27] MEDS: D5NS 1,000 ML IV SCH (05:08)
--- NOTE | 2017-08-27 07:26 | Progress Note ---
Assessment and Plan 1. Acute kidney injury: LUIS superimposed on CKD stage 3 in the setting of sepsis / shock. Renal function continue to improve. Continue IV fluids. Monitor renal function. 2. Metabolic acidosis: Continue IV fluids. Monitor acid-base status. 3. Hyponatremia: Improved. Monitor. 4. Hypotension: Off Levophed. Continue IV fluids. 5. Electrolytes: Replete K. 6. MRSA bacteremia with sepsis: Followed by ID. Subjective Date of service: 08/27/17 Principal diagnosis: sepsis Interval history: Patient was seen and examined at the bedside. Objective - Vital Signs Vital signs: Vital Signs - 12hr 08/26/17 08/26/17 08/27/17 21:11 22:00 00:34 Temperature 97.5 F L Pulse Rate 81 92 H Respiratory 20 20 Rate Blood Pressure 91/49 95/57 O2 Sat by Pulse 100 95 99 Oximetry 08/27/17 05:55 Temperature Pulse Rate 91 H Respiratory 20 Rate Blood Pressure 91/56 O2 Sat by Pulse 92 Oximetry - General Appearance General appearance: well-developed, appears stated age, cachectic, other (no distress) EENT: ATNC, PERRL, hearing intact Neck: supple Respiratory: Present: Clear to Ascultation Cardiology: S1S2, no murmurs Gastrointestinal: normoactive bowel sounds, other (ostomy noted) Integumentary: no rash Neurologic: other (able to move extremities) Musculoskeletal: other (no edema) - Lab 08/27/17 13:01 08/27/17 07:55 Most recent lab results Calcium 7.4 mg/dL (8.4-10.2) L 08/26/17 05:29 Phosphorus 6.40 mg/dL (2.5-4.5) H 08/24/17 07:33 Magnesium 2.50 mg/dL (1.7-2.3) H 08/25/17 11:00 Urine Creatinine < 4.2 mg/dL (0.1-20.0) 08/23/17 07:19 Urine Sodium 10 mmol/L 08/23/17 07:19
[2017-08-27 08:32] LABS: Albumin 1.8 g/dL (3.9-5); Calcium 7.2 mg/dL (8.4-10.2)
--- NOTE | 2017-08-27 09:07 | Hem/Onc Progress Note ---
Assessment and Plan leucocytosis- possibly reactive flow ordered. not a candidate for bmbx yet unless flow abnormal continue to monitor Subjective Date of service: 08/27/17 Interval history: events noted. pt confused. not making any sense Objective - Exam Narrative Exam: crying. - Constitutional Vitals: Last Vital Signs Temp 97.5 F L 08/26/17 21:11 Pulse 91 H 08/27/17 05:55 Resp 20 08/27/17 05:55 BP 91/56 08/27/17 05:55 Pulse Ox 92 08/27/17 05:55 - Respiratory Respiratory: bilateral: diminished - Cardiovascular Rhythm: regular Extremities: No edema - Gastrointestinal General gastrointestinal: Present: other (colostomy) - Labs Lab Results: Laboratory Results - last 24 hr 08/26/17 08/26/17 08/26/17 05:52 12:12 16:20 Sodium Potassium Chloride Carbon Dioxide Anion Gap BUN Creatinine Estimated GFR BUN/Creatinine Ratio Glucose POC Glucose 119 H 126 H Calcium Phosphorus Magnesium Total Bilirubin AST ALT Alkaline Phosphatase Total Protein Albumin Albumin/Globulin Ratio Prealbumin 0.040 L 08/26/17 08/27/17 21:23 07:55 Sodium 137 Potassium 3.0 L Chloride 107.1 H Carbon Dioxide 16 L Anion Gap 17 BUN 38 H Creatinine 1.7 H Estimated GFR 37 BUN/Creatinine Ratio 22 Glucose 111 H POC Glucose 163 H Calcium 7.2 L Phosphorus 3.40 Magnesium 1.70 Total Bilirubin 0.30 AST 8 ALT 33 Alkaline Phosphatase 60 Total Protein 3.9 L Albumin 1.8 L Albumin/Globulin Ratio 0.9 Prealbumin
[2017-08-27] MEDS: K-DUR PO SCH ×2 (10:00→18:55)
[2017-08-27] MEDS: VITAMIN C PO SCH (11:00)
[2017-08-27] MEDS: PEPCID PO SCH (11:00)
[2017-08-27] MEDS: ELIQUIS PO SCH (11:00)
[2017-08-27] MEDS: MAXIPIME 1 GM in NACL 0.9% 20 ML IV SCH (11:00)
[2017-08-27 13:21] LABS: Mean Corpuscular HGB Conc 29 % (30-34); Mean Corpuscular Hemoglobin 29 pg (28-32); Mean Corpuscular Volume 99 fl (79-97); Platelet Count 164 K/mm3 (140-440); Red Blood Count 2.96 M/mm3 (3.65-5.03)
[2017-08-27 13:23] LABS: Hematocrit 29.4 % (30.3-42.9); Hemoglobin 8.6 gm/dl (10.1-14.3); Red Cell Distribution Width 20.6 % (13.2-15.2)
[2017-08-27 14:26] LABS: Basophils % (Manual) 0 % (0.0-1.8); Eosinophils % (Manual) 0 % (0.0-4.3); RBC Morphology Normal; Total Cells Counted 100
--- NOTE | 2017-08-27 14:31 | Progress Note ---
Assessment and Plan Assessment and plan: Patient is 62 yo sent in from retirement. She has history of dvt, CHF, COPD on home oxygen, Chronic kidney disease, follows with Nephrology. She was sent in for altered mental status, somnolence. She has not been eating or drinking much and is very weak, and has been very sleepy past few days. She was lethargic , found to have LUIS and sepsis Sepsis. -continue abx ID Physician following Sepsis due to MRSA. On Vancomycin Toxic metabolic encephalopathy. Supportive care, neurochecks. Possible colitis as per CT Abdomen. patient evaluated by Dr. Paris, Surgeon. I discussed case with him and he recommends GI consult for poss scope. planned for egd and c-scope Urinary tract infection.-continue abx as above Septic shock.continue IVF, responding to IVF Decubitus ulcers POA, stage 3 large sacral decub continue wound care. COPD. On home Oxygen. Pulmonology following. Chronic CHF. not in exacerbation Acute on CKD. Improving. Creatinine 2.[address] Martines, Histology Assistant following, continue IVF vasomotor nephropathy Marked leukocytosis. WBC 74 on admission, now down to 42. She had history of marked leukocytosis before and was supposed to follow as outpatient to work up for leukemia. -hematology note appreciated, likely reactive, continue to monitor Complete immobility due to frailty -continue supportive care Metabolic acidosis due to sepsis, renal failure continue to rx as above Hyponatremia. Continue iv fluids. sp Colostomy. History Interval history: patient is demented, has been c/o sacral pain no fevers has had low BP no vomiting, no diarrhea Hospitalist Physical - Physical exam Narrative exam: Gen appearance: Not in acute distress, lying in bed, cachectic HEENT:Normocephalic,atraumatic Lungs: Clear to auscultation bilaterally, no crackles , no wheeze Heart: S1 and S2 regular, no murmurs, rubs or gallop Abdomen: soft, non tender, non distended, normal bowel sounds,colostomy Ext: No edema, no clubbing, no cyanosis Neuro: Awake,alert, follows commands, Sacral decubitus ulcers will anyways Psych: demented, but cooperative - Constitutional Vitals: Temp Pulse Resp BP Pulse Ox 98.9 F 87 24 102/51 100 08/27/17 09:09 08/27/17 07:00 08/27/17 09:09 08/27/17 09:09 08/27/17 10:00 General appearance: Present: cachectic Results - Labs CBC & Chem 7: 08/27/17 13:01 08/28/17 05:58 Labs: Laboratory Last Values WBC 39.7 K/mm3 (4.5-11.0) H 08/27/17 13:01 RBC 2.96 M/mm3 (3.65-5.03) L 08/27/17 13:01 Hgb 8.6 gm/dl (10.1-14.3) L 08/27/17 13:01 Hct 29.4 % (30.3-42.9) L 08/27/17 13:01 MCV 99 fl (79-97) H 08/27/17 13:01 MCH 29 pg (28-32) 08/27/17 13:01 MCHC 29 % (30-34) L 08/27/17 13:01 RDW 20.6 % (13.2-15.2) H 08/27/17 13:01 Plt Count 164 K/mm3 (140-440) 08/27/17 13:01 Add Manual Diff Complete 08/27/17 13:01 Total Counted 100 08/27/17 13:01 Seg Neutrophils % Director Data Processing 08/27/17 13:01 Seg Neuts % (Manual) 97.0 % (40.0-70.0) H 08/27/17 13:01 Band Neutrophils % 0 % 08/27/17 13:01 Lymphocytes % (Manual) 1.0 % (13.4-35.0) L 08/27/17 13:01 Reactive Lymphs % (Man) 0 % 08/27/17 13:01 Monocytes % (Manual) 2.0 % (0.0-7.3) 08/27/17 13:01 Eosinophils % (Manual) 0 % (0.0-4.3) 08/27/17 13:01 Basophils % (Manual) 0 % (0.0-1.8) 08/27/17 13:01 Metamyelocytes % 0 % 08/27/17 13:01 Myelocytes % 0 % 08/27/17 13:01 Promyelocytes % 0 % 08/27/17 13:01 Blast Cells % 0 % 08/27/17 13:01 Nucleated RBC % Not Reportable 08/27/17 13:01 Seg Neutrophils # Man 38.5 K/mm3 (1.8-7.7) H 08/27/17 13:01 Band Neutrophils # 0.0 K/mm3 08/27/17 13:01 Lymphocytes # (Manual) 0.4 K/mm3 (1.2-5.4) L 08/27/17 13:01 Abs React Lymphs (Man) 0.0 K/mm3 08/27/17 13:01 Monocytes # (Manual) 0.8 K/mm3 (0.0-0.8) 08/27/17 13:01 Eosinophils # (Manual) 0.0 K/mm3 (0.0-0.4) 08/27/17 13:01 Basophils # (Manual) 0.0 K/mm3 (0.0-0.1) 08/27/17 13:01 Metamyelocytes # 0.0 K/mm3 08/27/17 13:01 Myelocytes # 0.0 K/mm3 08/27/17 13:01 Promyelocytes # 0.0 K/mm3 08/27/17 13:01 Blast Cells # 0.0 K/mm3 08/27/17 13:01 WBC Morphology Not Reportable 08/27/17 13:01 Hypersegmented Neuts Not Reportable 08/27/17 13:01 Hyposegmented Neuts Not Reportable 08/27/17 13:01 Hypogranular Neuts Not Reportable 08/27/17 13:01 Smudge Cells Not Reportable 08/27/17 13:01 Toxic Granulation Not Reportable 08/27/17 13:01 Toxic Vacuolation Not Reportable 08/27/17 13:01 Dohle Bodies Not Reportable 08/27/17 13:01 Pelger-Huet Anomaly Not Reportable 08/27/17 13:01 Neisha Rods Not Reportable 08/27/17 13:01 Platelet Estimate Not Reportable 08/27/17 13:01 Clumped Platelets Not Reportable 08/27/17 13:01 Plt Clumps, EDTA Not Reportable 08/27/17 13:01 Large Platelets Not Reportable 08/27/17 13:01 Giant Platelets Not Reportable 08/27/17 13:01 Platelet Satelliting Not Reportable 08/27/17 13:01 Plt Morphology Comment Not Reportable 08/27/17 13:01 RBC Morphology Normal 08/27/17 13:01 Dimorphic RBCs Not Reportable 08/27/17 13:01 Polychromasia Not Reportable 08/27/17 13:01 Hypochromasia Not Reportable 08/27/17 13:01 Poikilocytosis Not Reportable 08/27/17 13:01 Anisocytosis Not Reportable 08/27/17 13:01 Microcytosis Not Reportable 08/27/17 13:01 Macrocytosis Not Reportable 08/27/17 13:01 Spherocytes Not Reportable 08/27/17 13:01 Pappenheimer Bodies Not Reportable 08/27/17 13:01 Sickle Cells Not Reportable 08/27/17 13:01 Target Cells Not Reportable 08/27/17 13:01 Tear Drop Cells Not Reportable 08/27/17 13:01 Ovalocytes Not Reportable 08/27/17 13:01 Helmet Cells Not Reportable 08/27/17 13:01 Frankel-Suffield Bodies Not Reportable 08/27/17 13:01 [place] Rings Not Reportable 08/27/17 13:01 Damián Cells Not Reportable 08/27/17 13:01 Bite Cells Not Reportable 08/27/17 13:01 Crenated Cell Not Reportable 08/27/17 13:01 Elliptocytes Not Reportable 08/27/17 13:01 Acanthocytes (Spur) Not Reportable 08/27/17 13:01 Rouleaux Not Reportable 08/27/17 13:01 Hemoglobin C Crystals Not Reportable 08/27/17 13:01 Schistocytes Not Reportable 08/27/17 13:01 Malaria parasites Not Reportable 08/27/17 13:01 Herve Bodies Not Reportable 08/27/17 13:01 Hem Pathologist Commnt Sent to pathology 08/27/17 13:01 PT 25.5 Sec. (12.2-14.9) H 08/23/17 05:58 INR 2.16 (0.87-1.13) H 08/23/17 05:58 APTT 46.4 Sec. (24.2-36.6) H 08/23/17 05:58 POC ABG pH 7.187 (7.35-7.45) L 08/23/17 18:00 POC ABG pCO2 35.2 (35-45) 08/23/17 18:00 POC ABG pO2 86 (80-105) 08/23/17 18:00 POC ABG HCO3 13.3 08/23/17 18:00 POC ABG Total CO2 14 08/23/17 18:00 POC ABG O2 Sat 94 08/23/17 18:00 POC ABG Base Excess -15 08/23/17 18:00 FiO2 21 % 08/23/17 18:00 Sodium 137 mmol/L (137-145) 08/27/17 07:55 Potassium 3.0 mmol/L (3.6-5.0) L 08/27/17 07:55 Chloride 107.1 mmol/L (98-107) H 08/27/17 07:55 Carbon Dioxide 16 mmol/L (22-30) L 08/27/17 07:55 Anion Gap 17 mmol/L 08/27/17 07:55 BUN 38 mg/dL (7-17) H 08/27/17 07:55 Creatinine 1.7 mg/dL (0.7-1.2) H 08/27/17 07:55 Estimated GFR 37 ml/min 08/27/17 07:55 BUN/Creatinine Ratio 22 % 08/27/17 07:55 Glucose 111 mg/dL (65-100) H 08/27/17 07:55 POC Glucose 99 (70-105) 08/27/17 12:18 Lactic Acid 1.10 mmol/L (0.7-2.0) 08/23/17 08:46 Calcium 7.2 mg/dL (8.4-10.2) L 08/27/17 07:55 Phosphorus 3.40 mg/dL (2.5-4.5) 08/27/17 07:55 Magnesium 1.70 mg/dL (1.7-2.3) 08/27/17 07:55 Total Bilirubin 0.30 mg/dL (0.1-1.2) 08/27/17 07:55 AST 8 units/L (5-40) 08/27/17 07:55 ALT 33 units/L (7-56) 08/27/17 07:55 Alkaline Phosphatase 60 units/L (35-129) 08/27/17 07:55 Total Creatine Kinase 90 units/L (30-135) 08/23/17 21:45 CK-MB (CK-2) 7.0 ng/mL (0.0-4.0) H 08/23/17 21:45 CK-MB (CK-2) Rel Index 7.7 (0-4) H 08/23/17 21:45 Troponin T 0.042 ng/mL (0.00-0.029) H 08/23/17 21:45 C-Reactive Protein 17.50 mg/dL (0.00-1.30) H 08/23/17 15:49 NT-Pro-B Natriuret Pep 8480 pg/mL (0-900) H 08/23/17 05:58 Total Protein 3.9 g/dL (6.3-8.2) L 08/27/17 07:55 Albumin 1.8 g/dL (3.9-5) L 08/27/17 07:55 Albumin/Globulin Ratio 0.9 % 08/27/17 07:55 Prealbumin 0.040 g/L (0.200-0.400) L 08/26/17 05:52 Triglycerides 76 mg/dL (2-149) 08/23/17 05:58 Cholesterol 115 mg/dL (50-199) 08/23/17 05:58 LDL Cholesterol Direct 48 mg/dL (50-130) L 08/23/17 05:58 HDL Cholesterol 52 mg/dL (40-59) 08/23/17 05:58 Cholesterol/HDL Ratio 2.21 % 08/23/17 05:58 Lipase 18 units/L (13-60) 08/23/17 05:58 TSH 4.110 mlU/mL (0.270-4.200) 08/23/17 05:58 Free T4 1.04 ng/dL (0.76-1.46) 08/23/17 05:58 Urine Color Yellow (Yellow) 08/23/17 07:19 Urine Turbidity Turbid (Clear) 08/23/17 07:19 Urine pH 5.0 (5.0-7.0) 08/23/17 07:19 Ur Specific [place] 1.013 (1.003-1.030) 08/23/17 07:19 Urine Protein 100 mg/dl mg/dL (Negative) 08/23/17 07:19 Urine Glucose (UA) Neg mg/dL (Negative) 08/23/17 07:19 Urine Ketones Neg mg/dL (Negative) 08/23/17 07:19 Urine Blood Mod (Negative) 08/23/17 07:19 Urine Nitrite Neg (Negative) 08/23/17 07:19 Urine Bilirubin Neg (Negative) 08/23/17 07:19 Urine Urobilinogen < 2.0 mg/dL (<2.0) 08/23/17 07:19 Ur Leukocyte Esterase Mod (Negative) 08/23/17 07:19 Urine WBC (Auto) > 182.0 /HPF (0.0-6.0) H 08/23/17 07:19 Urine RBC (Auto) < 1.0 /HPF (0.0-6.0) 08/23/17 07:19 Urine Bacteria (Auto) 3+ /HPF (Negative) 08/23/17 07:19 Urine Creatinine < 4.2 mg/dL (0.1-20.0) 08/23/17 07:19 Urine Sodium 10 mmol/L 08/23/17 07:19 Random Vancomycin 18.1 ug/mL (0-40.0) 08/26/17 05:29 C. difficile Toxin A&B Negative (Negative) 08/25/17 09:09 Blood Type AB POSITIVE 08/23/17 10:22 Antibody Screen Negative 08/23/17 10:22
--- NOTE | 2017-08-27 15:19 | Progress Note ---
Assessment and Plan Assessment: 1) Sepsis: still tachycardia, leukocytosis with leukomoid reaction worse - 74--> 33 -->39K. Etiology most likely MRSA septicemia -CRP=17 2) MRSA septicemia: unclear source ? endocarditis. Sacral wound + MRSA 3) AMS: metabolic ? 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 8) Left hip and sacral pressure ulcers. 9) DVT 10) Large sacral decubitus stage IV ? abscess ? osteo. Wound cx + MRSA 11) UTI: UA c/w UTI. previous urine cx + Sho ? colonizer Plan: -f/u wound cultures -f/u repeat blood cultures -continue IV vancomcyin -obtain TTE - pending -cancel Cdiff from stool -stop PO vanco -stop cefepime and flagyl -contact isolation for MRSA -wound care consult Poor prognosis Thank you for your consultation, will follow up with you. Winifred Guerrero MD Infectious Diseases Specialist [facility] [phone] O [phone] Subjective Date of service: 08/27/17 Principal diagnosis: sepsis Interval history: Feels sick c/o severe body aches, yelling, agitated, no fever. Microbiology: Blood cultures: 3/3 MRSA 2 of 4 bottles 3/6 ngtd 3/6 Wound MRSA Current Antimicrobials: Cefepime flagyl Vanco po vanco iv Previous Antimicrobials: Zosyn Levaquin Objective - Exam Narrative Exam: General appearance: Alert agitated in NAD Eyes: anicteric sclerae, moist conjunctivae; no lid-lag; PERRLA HENT: Atraumatic; oropharynx clear poor dentition Neck: Trachea midline; supple, no thyromegaly or lymphadenopathy Lungs: CTA CV: RRR, murmurs Abdomen: Soft, non-tender + colostomy bag Extremities: No peripheral edema or extremity lymphadenopathy Skin: +sacral decubitus stage IV and left hip DTI - not examied today Psych: confused Neuro: confused Lines: No CVL / PICC - Constitutional Vitals: Vital Signs Temp Pulse Resp BP Pulse Ox 98.9 F 87 24 102/51 100 08/27/17 09:09 08/27/17 07:00 08/27/17 09:09 08/27/17 09:09 08/27/17 10:00 Temperature -Last 24 Hours Temperature 98.9 F Temperature 97.5 F Temperature 97.2 F - Labs CBC & Chem 7: 08/27/17 13:01 08/27/17 07:55 Labs: Abnormal lab results 08/26/17 08/26/17 08/26/17 Range/Units 05:52 16:20 21:23 WBC (4.5-11.0) K/mm3 RBC (3.65-5.03) M/mm3 Hgb (10.1-14.3) gm/dl Hct (30.3-42.9) % MCV (79-97) fl MCHC (30-34) % RDW (13.2-15.2) % Seg Neuts % (Manual) (40.0-70.0) % Lymphocytes % (Manual) (13.4-35.0) % Seg Neutrophils # Man (1.8-7.7) K/mm3 Lymphocytes # (Manual) (1.2-5.4) K/mm3 Potassium (3.6-5.0) mmol/L Chloride (98-107) mmol/L Carbon Dioxide (22-30) mmol/L BUN (7-17) mg/dL Creatinine (0.7-1.2) mg/dL Glucose (65-100) mg/dL POC Glucose 126 H 163 H (70-105) Calcium (8.4-10.2) mg/dL Total Protein (6.3-8.2) g/dL Albumin (3.9-5) g/dL Prealbumin 0.040 L (0.200-0.400) g/L 08/27/17 08/27/17 Range/Units 07:55 13:01 WBC 39.7 H (4.5-11.0) K/mm3 RBC 2.96 L (3.65-5.03) M/mm3 Hgb 8.6 L (10.1-14.3) gm/dl Hct 29.4 L (30.3-42.9) % MCV 99 H (79-97) fl MCHC 29 L (30-34) % RDW 20.6 H (13.2-15.2) % Seg Neuts % (Manual) 97.0 H (40.0-70.0) % Lymphocytes % (Manual) 1.0 L (13.4-35.0) % Seg Neutrophils # Man 38.5 H (1.8-7.7) K/mm3 Lymphocytes # (Manual) 0.4 L (1.2-5.4) K/mm3 Potassium 3.0 L (3.6-5.0) mmol/L Chloride 107.1 H (98-107) mmol/L Carbon Dioxide 16 L (22-30) mmol/L BUN 38 H (7-17) mg/dL Creatinine 1.7 H (0.7-1.2) mg/dL Glucose 111 H (65-100) mg/dL POC Glucose (70-105) Calcium 7.2 L (8.4-10.2) mg/dL Total Protein 3.9 L (6.3-8.2) g/dL Albumin 1.8 L (3.9-5) g/dL Prealbumin (0.200-0.400) g/L
[2017-08-27] MEDS ORDERED: MAGNESIUM SULFATE 2GM/50ML 2 GM/50 ML BAG IV ONE (15:28)
[2017-08-27] MEDS ORDERED: NACL 0.9% IV ONE (16:00)
[2017-08-27] MEDS ORDERED: KCL IV ONE (16:00)
[2017-08-27] MEDS ORDERED: NACL 0.9% 1000 ML 1,000 ML IV SCH (16:05)
--- NOTE | 2017-08-27 16:06 | Anesthesia Consultation ---
Anesthesia Consult and Med Hx - Airway Anesthetic Teeth Evaluation: Edentulous ROM Head & Neck: Adequate Mental/Hyoid Distance: Adequate Intubation Access Assessment: Possibly Difficult - Pulmonary Exam CTA: Yes (clear, diminished) - Cardiac Exam Cardiac Exam: RRR - Pre-Operative Health Status ASA Pre-Surgery Classification: ASA4 Proposed Anesthetic Plan: MAC (pt wit altered mental status) - Pulmonary Hx Smoking: No (on oxygen at home) Hx Asthma: Yes Hx Respiratory Symptoms: Yes (Resp failure, on vent.) SOB: Yes COPD: Yes Hx Pneumonia: No Hx Sleep Apnea: No (Hx DVT; high chol) - Cardiovascular System Hx Hypertension: Yes Hx Coronary Artery Disease: No (heart failure; ) Hx Heart Attack/AMI: No Hx Pacemaker: No Hx Internal Defibrillator: No - Central Nervous System Hx Seizures: No Hx Psychiatric Problems: No - Gastrointestinal Hx Gastroesophageal Reflux Disease: No (hx of partial colectomy; c-diff, MRSA) - Endocrine Hx Renal Disease: Yes (akd) Hx End Stage Renal Disease: Yes (Dialysis on hold due to hypotension.) Hx Liver Disease: No - Hematic Hx Anemia: No Hx Sickle Cell Disease: No - Other Systems Hx Cancer: No
--- NOTE | 2017-08-27 16:10 | Anesthesia Day of Surgery ---
Anesthesia Day of Surgery - Day of Surgery Patient Examined: Yes Patient H&P Reviewed: Yes Patient is NPO: Yes
[2017-08-27] MEDS ORDERED: WATER FOR IRRIG STERILE IR ONE (16:27)
[2017-08-27] MEDS ORDERED: DIPRIVAN 10 MG/ML IV ONE (16:28)
[2017-08-27] MEDS ORDERED: AMIDATE IV ONE (16:28)
[2017-08-27] MEDS ORDERED: XYLOCAINE MPF 2% ONE (16:30)
--- NOTE | 2017-08-27 16:56 | Post Operative Note ---
Pre-op diagnosis: anemia, abdmominal pain, melena Post-op diagnosis: same Findings: EGD: large hiatal hernia - m-w tear w/ healing noted - kristan ulcers, healing - negative other Colon: 50 cm small bowel noted, intact, negative other Procedure: EGD/colon Anesthesia: MAC Surgeon: MAGY ZAFAR Estimated blood loss: none Pathology: list Specimen disposition: to lab Condition: stable Disposition: floor
[2017-08-27] MEDS ORDERED: K-DUR PO SCH (18:00)
--- NOTE | 2017-08-27 18:06 | Operative Report ---
PROCEDURE: EGD. INDICATION: 1. Anemia. 2. Abdominal pain. MEDICATIONS: Propofol per FIRE WATCHMAN. COMPLICATIONS: None. DESCRIPTION OF PROCEDURE: The patient brought to procedure suite. The patient had procedure discussed with her at length. All complications and benefits discussed after which the family gave consent for the procedure performed. The patient was placed in left lateral decubitus position. Mouth block was placed in the patient's oral cavity. After adequate sedation medication as above, endoscope was introduced into the mouth and brought to the second portion of duodenum. Retroflexion view performed. The patient's vital signs remained stable throughout the procedure. FINDINGS: There was noted to be large hiatal hernia at GE junction. Within that, there were noted to be 2-3 Ej ulcers, which were 5-6 mm without bleeding stigmata. Two long Cassandra-Paredes tears were also noted at GE junction. These were showing signs of healing. No other stigmata of bleeding was noted. Mild gastritis noted in stomach. The stomach otherwise appeared normal. Duodenum appeared to be normal. Retroflexion showed no other pathology other than noted above. The patient tolerated the procedure well. No complications during the procedure. IMPRESSION: 1. Large hiatal hernia. 2. Healing Ej ulcers. 3. Healing Cassandra-Paredes tears. 4. Otherwise, benign EGD. RECOMMENDATIONS: 1. Colonoscopy to follow. 2. Follow hematocrit and transfuse as needed. 3. PPI daily. 4. Further recommendation based on colonoscopy results. JOB# [id number] CAB/NTS
--- NOTE | 2017-08-27 18:18 | Operative Report ---
PROCEDURE: Colonoscopy. INDICATION: 1. Anemia. 2. GI bleed. MEDICATIONS: Propofol per BOTTOM TURNING LATHE TURNER. COMPLICATIONS: None. DESCRIPTION OF PROCEDURE: The patient brought to procedure suite. The patient had the procedure discussed with her at length. All risks, complications, and benefits discussed, which the patient signed for the procedure performed. The patient was placed in left lateral decubitus position. Examination of the ostomy done prior to insertion of the scope. After adequate sedation, scope inserted through the ostomy and brought to the level of the small bowel. No retroflexion view performed. The patient's vital signs remained stable throughout the procedure. FINDINGS: The ostomy site appeared intact. The scope was then inserted through the ostomy. There was noted to be no colon noted. Approximately 60 cm of small bowel was noted, which appeared benign. No retroflexion view was performed. No sign of bleeding was noted. The patient tolerated the procedure well. No complications during the procedure. IMPRESSION: 1. Ostomy site intact. 2. A 60 cm of small bowel noted intact. 3. Otherwise, no other significant pathology. RECOMMENDATIONS: 1. Follow labs. 2. Advance diet. 3. Follow based on progress. JOB# [id number] CAB/NTS
[2017-08-28] MEDS: PEPCID PO SCH ×3 (00:01→22:00)
[2017-08-28] MEDS: VITAMIN C PO SCH ×3 (00:01→21:18)
[2017-08-28] MEDS: ELIQUIS PO SCH ×3 (00:02→21:18)
[2017-08-28] MEDS: FLAGYL 500 MG/100 ML 500 MG/100 ML BAG IV SCH ×4 (00:02→21:16)
[2017-08-28] MEDS: ULTRAM PO PRN (00:10)
[2017-08-28] MEDS: VANCOMYCIN PO PO SCH ×4 (06:24→18:34)
[2017-08-28 07:00] LABS: Calcium 7.5 mg/dL (8.4-10.2)
--- NOTE | 2017-08-28 07:23 | Progress Note ---
Assessment and Plan 1. Acute kidney injury: LUIS superimposed on CKD stage 3 in the setting of sepsis / shock. Renal function continue to improve. Continue IV fluids. Monitor renal function. 2. Metabolic acidosis: Restart on bicarbonate drip. Monitor acid-base status. 3. Hyponatremia: Improved. Monitor. 4. Hypotension: Continue IV fluids. 5. Electrolytes: Monitor. 6. MRSA bacteremia with sepsis: Followed by ID. Subjective Date of service: 08/28/17 Principal diagnosis: sepsis Interval history: Patient was seen and examined at the bedside. Objective - Vital Signs Vital signs: Vital Signs - 12hr 08/27/17 08/27/17 08/28/17 21:02 21:55 00:28 Temperature 97.3 F L 97.4 F L Pulse Rate 55 L Respiratory 18 18 Rate Blood Pressure 96/59 100/47 O2 Sat by Pulse 97 87 Oximetry 08/28/17 04:55 Temperature 97.3 F L Pulse Rate Respiratory 18 Rate Blood Pressure 78/53 O2 Sat by Pulse Oximetry - General Appearance General appearance: well-developed, appears stated age, cachectic, other (no distress) EENT: ATNC, PERRL, hearing intact Neck: supple Respiratory: Present: Clear to Ascultation Cardiology: S1S2, no murmurs Gastrointestinal: normoactive bowel sounds, no tenderness, other (ostomy noted) Integumentary: no rash Neurologic: other (able to move extremities) Musculoskeletal: other (no edema) - Lab 08/27/17 13:01 08/28/17 05:58 Most recent lab results Calcium 7.5 mg/dL (8.4-10.2) L 08/28/17 05:58 Phosphorus 3.20 mg/dL (2.5-4.5) 08/28/17 05:58 Magnesium 2.40 mg/dL (1.7-2.3) H 08/28/17 05:58 Urine Creatinine < 4.2 mg/dL (0.1-20.0) 08/23/17 07:19 Urine Sodium 10 mmol/L 08/23/17 07:19
[2017-08-28] MEDS ORDERED: VANCOMYCIN 750 MG in NACL 0.9% 250ML 250 ML IV ONE (10:00)
[2017-08-28] MEDS ORDERED: TYLENOL PO ONE (13:30)
[2017-08-28] MEDS ORDERED: SODIUM BICARBONATE 150 MEQ in D5W 1,000 ML IV SCH (14:00)
[2017-08-28] MEDS: MAXIPIME 1 GM in NACL 0.9% 20 ML IV SCH (14:46)
[2017-08-28] MEDS: PROAMATINE PO SCH ×2 (14:51→21:18)
--- NOTE | 2017-08-28 15:14 | Progress Note ---
Assessment and Plan Assessment and plan: Patient is 62 yo sent in from longterm. She has history of dvt, CHF, COPD on home oxygen, Chronic kidney disease, follows with Nephrology. She was sent in for altered mental status, somnolence. She has not been eating or drinking much and is very weak, and has been very sleepy past few days. She was lethargic , found to have LUIS and sepsis Sepsis. -continue abx ID Physician following hypotension -start on midodrine Sepsis due to MRSA. On Vancomycin Toxic metabolic encephalopathy. Supportive care, neurochecks. repeat CT head and check NH3, will try to rx pain better Possible colitis as per CT Abdomen. patient evaluated by Dr. Paris, Surgeon. I discussed case with him and he recommends GI consult for poss scope. planned for egd and c-scope Urinary tract infection.-continue abx as above Septic shock.continue IVF, responding to IVF Decubitus ulcers POA, stage 3 large sacral decub continue wound care. COPD. On home Oxygen. Pulmonology following. Chronic CHF. not in exacerbation Acute on CKD. Improving. Creatinine 2.[address] Martines, Nuclear Criticality Safety Engineer following, continue IVF vasomotor nephropathy Marked leukocytosis. WBC 74 on admission, now down to 42. She had history of marked leukocytosis before and was supposed to follow as outpatient to work up for leukemia. -hematology note appreciated, likely reactive, continue to monitor Complete immobility due to frailty -continue supportive care Metabolic acidosis due to sepsis, renal failure continue to rx as above Hyponatremia. Continue iv fluids. sp Colostomy. had family meeting with her kids and they are agreeable to inpatient hospice History Interval history: patient is demented, has been c/o sacral pain no fevers has had low BP no vomiting, no diarrhea Hospitalist Physical - Physical exam Narrative exam: Gen appearance: Not in acute distress, lying in bed, cachectic HEENT:Normocephalic,atraumatic Lungs: Clear to auscultation bilaterally, no crackles , no wheeze Heart: S1 and S2 regular, no murmurs, rubs or gallop Abdomen: soft, non tender, non distended, normal bowel sounds,colostomy Ext: No edema, no clubbing, no cyanosis Neuro: Awake,alert, follows commands, Sacral decubitus ulcers will anyways Psych: demented, but cooperative - Constitutional Vitals: Temp Pulse Resp BP Pulse Ox 97.2 F L 107 H 20 70/39 100 08/28/17 11:10 08/28/17 11:11 08/28/17 11:10 08/28/17 11:10 08/28/17 11:11 General appearance: Present: cachectic Results - Labs CBC & Chem 7: 08/27/17 13:01 08/28/17 05:58 Labs: Laboratory Last Values WBC 39.7 K/mm3 (4.5-11.0) H 08/27/17 13:01 RBC 2.96 M/mm3 (3.65-5.03) L 08/27/17 13:01 Hgb 8.6 gm/dl (10.1-14.3) L 08/27/17 13:01 Hct 29.4 % (30.3-42.9) L 08/27/17 13:01 MCV 99 fl (79-97) H 08/27/17 13:01 MCH 29 pg (28-32) 08/27/17 13:01 MCHC 29 % (30-34) L 08/27/17 13:01 RDW 20.6 % (13.2-15.2) H 08/27/17 13:01 Plt Count 164 K/mm3 (140-440) 08/27/17 13:01 Add Manual Diff Complete 08/27/17 13:01 Total Counted 100 08/27/17 13:01 Seg Neutrophils % Safe Deposit Attendant 08/27/17 13:01 Seg Neuts % (Manual) 97.0 % (40.0-70.0) H 08/27/17 13:01 Band Neutrophils % 0 % 08/27/17 13:01 Lymphocytes % (Manual) 1.0 % (13.4-35.0) L 08/27/17 13:01 Reactive Lymphs % (Man) 0 % 08/27/17 13:01 Monocytes % (Manual) 2.0 % (0.0-7.3) 08/27/17 13:01 Eosinophils % (Manual) 0 % (0.0-4.3) 08/27/17 13:01 Basophils % (Manual) 0 % (0.0-1.8) 08/27/17 13:01 Metamyelocytes % 0 % 08/27/17 13:01 Myelocytes % 0 % 03/07/18 13:01 Promyelocytes % 0 % 08/27/17 13:01 Blast Cells % 0 % 08/27/17 13:01 Nucleated RBC % Not Reportable 08/27/17 13:01 Seg Neutrophils # Man 38.5 K/mm3 (1.8-7.7) H 08/27/17 13:01 Band Neutrophils # 0.0 K/mm3 08/27/17 13:01 Lymphocytes # (Manual) 0.4 K/mm3 (1.2-5.4) L 08/27/17 13:01 Abs React Lymphs (Man) 0.0 K/mm3 08/27/17 13:01 Monocytes # (Manual) 0.8 K/mm3 (0.0-0.8) 08/27/17 13:01 Eosinophils # (Manual) 0.0 K/mm3 (0.0-0.4) 08/27/17 13:01 Basophils # (Manual) 0.0 K/mm3 (0.0-0.1) 08/27/17 13:01 Metamyelocytes # 0.0 K/mm3 08/27/17 13:01 Myelocytes # 0.0 K/mm3 08/27/17 13:01 Promyelocytes # 0.0 K/mm3 08/27/17 13:01 Blast Cells # 0.0 K/mm3 08/27/17 13:01 Pathologist Review 08/27/17 13:01 WBC Morphology Not Reportable 08/27/17 13:01 Hypersegmented Neuts Not Reportable 08/27/17 13:01 Hyposegmented Neuts Not Reportable 08/27/17 13:01 Hypogranular Neuts Not Reportable 08/27/17 13:01 Smudge Cells Not Reportable 08/27/17 13:01 Toxic Granulation Not Reportable 08/27/17 13:01 Toxic Vacuolation Not Reportable 08/27/17 13:01 Dohle Bodies Not Reportable 08/27/17 13:01 Pelger-Huet Anomaly Not Reportable 08/27/17 13:01 Neisha Rods Not Reportable 08/27/17 13:01 Platelet Estimate Not Reportable 08/27/17 13:01 Clumped Platelets Not Reportable 08/27/17 13:01 Plt Clumps, EDTA Not Reportable 08/27/17 13:01 Large Platelets Not Reportable 08/27/17 13:01 Giant Platelets Not Reportable 08/27/17 13:01 Platelet Satelliting Not Reportable 08/27/17 13:01 Plt Morphology Comment Not Reportable 08/27/17 13:01 RBC Morphology Normal 08/27/17 13:01 Dimorphic RBCs Not Reportable 08/27/17 13:01 Polychromasia Not Reportable 08/27/17 13:01 Hypochromasia Not Reportable 08/27/17 13:01 Poikilocytosis Not Reportable 08/27/17 13:01 Anisocytosis Not Reportable 08/27/17 13:01 Microcytosis Not Reportable 08/27/17 13:01 Macrocytosis Not Reportable 08/27/17 13:01 Spherocytes Not Reportable 08/27/17 13:01 Pappenheimer Bodies Not Reportable 08/27/17 13:01 Sickle Cells Not Reportable 08/27/17 13:01 Target Cells Not Reportable 08/27/17 13:01 Tear Drop Cells Not Reportable 08/27/17 13:01 Ovalocytes Not Reportable 08/27/17 13:01 Helmet Cells Not Reportable 08/27/17 13:01 Frankel-Maxeys Bodies Not Reportable 08/27/17 13:01 Kenova Rings Not Reportable 08/27/17 13:01 Damián Cells Not Reportable 08/27/17 13:01 Bite Cells Not Reportable 08/27/17 13:01 Crenated Cell Not Reportable 08/27/17 13:01 Elliptocytes Not Reportable 08/27/17 13:01 Acanthocytes (Spur) Not Reportable 08/27/17 13:01 Rouleaux Not Reportable 08/27/17 13:01 Hemoglobin C Crystals Not Reportable 08/27/17 13:01 Schistocytes Not Reportable 08/27/17 13:01 Malaria parasites Not Reportable 08/27/17 13:01 Herve Bodies Not Reportable 08/27/17 13:01 Hem Pathologist Commnt Sent to pathology 08/27/17 13:01 PT 25.5 Sec. (12.2-14.9) H 08/23/17 05:58 INR 2.16 (0.87-1.13) H 08/23/17 05:58 APTT 46.4 Sec. (24.2-36.6) H 08/23/17 05:58 POC ABG pH 7.187 (7.35-7.45) L 08/23/17 18:00 POC ABG pCO2 35.2 (35-45) 08/23/17 18:00 POC ABG pO2 86 (80-105) 08/23/17 18:00 POC ABG HCO3 13.3 08/23/17 18:00 POC ABG Total CO2 14 08/23/17 18:00 POC ABG O2 Sat 94 08/23/17 18:00 POC ABG Base Excess -15 08/23/17 18:00 FiO2 21 % 08/23/17 18:00 Sodium 142 mmol/L (137-145) 08/28/17 05:58 Potassium 4.8 mmol/L (3.6-5.0) D 08/28/17 05:58 Chloride 113.8 mmol/L (98-107) H 08/28/17 05:58 Carbon Dioxide 13 mmol/L (22-30) L 08/28/17 05:58 Anion Gap 20 mmol/L 08/28/17 05:58 BUN 36 mg/dL (7-17) H 08/28/17 05:58 Creatinine 1.8 mg/dL (0.7-1.2) H 08/28/17 05:58 Estimated GFR 34 ml/min 08/28/17 05:58 BUN/Creatinine Ratio 20 % 08/28/17 05:58 Glucose 97 mg/dL (65-100) 08/28/17 05:58 POC Glucose 95 (70-105) 08/28/17 10:49 Lactic Acid 1.10 mmol/L (0.7-2.0) 08/23/17 08:46 Calcium 7.5 mg/dL (8.4-10.2) L 08/28/17 05:58 Phosphorus 3.20 mg/dL (2.5-4.5) 08/28/17 05:58 Magnesium 2.40 mg/dL (1.7-2.3) H 08/28/17 05:58 Total Bilirubin 0.30 mg/dL (0.1-1.2) 08/27/17 07:55 AST 8 units/L (5-40) 08/27/17 07:55 ALT 33 units/L (7-56) 08/27/17 07:55 Alkaline Phosphatase 60 units/L (35-129) 08/27/17 07:55 Total Creatine Kinase 90 units/L (30-135) 08/23/17 21:45 CK-MB (CK-2) 7.0 ng/mL (0.0-4.0) H 08/23/17 21:45 CK-MB (CK-2) Rel Index 7.7 (0-4) H 08/23/17 21:45 Troponin T 0.042 ng/mL (0.00-0.029) H 08/23/17 21:45 C-Reactive Protein 17.50 mg/dL (0.00-1.30) H 08/23/17 15:49 NT-Pro-B Natriuret Pep 8480 pg/mL (0-900) H 08/23/17 05:58 Total Protein 3.9 g/dL (6.3-8.2) L 08/27/17 07:55 Albumin 1.8 g/dL (3.9-5) L 08/27/17 07:55 Albumin/Globulin Ratio 0.9 % 08/27/17 07:55 Prealbumin 0.040 g/L (0.200-0.400) L 08/26/17 05:52 Triglycerides 76 mg/dL (2-149) 08/23/17 05:58 Cholesterol 115 mg/dL (50-199) 08/23/17 05:58 LDL Cholesterol Direct 48 mg/dL (50-130) L 08/23/17 05:58 HDL Cholesterol 52 mg/dL (40-59) 08/23/17 05:58 Cholesterol/HDL Ratio 2.21 % 08/23/17 05:58 Lipase 18 units/L (13-60) 08/23/17 05:58 TSH 4.110 mlU/mL (0.270-4.200) 08/23/17 05:58 Free T4 1.04 ng/dL (0.76-1.46) 08/23/17 05:58 Urine Color Yellow (Yellow) 08/23/17 07:19 Urine Turbidity Turbid (Clear) 08/23/17 07:19 Urine pH 5.0 (5.0-7.0) 08/23/17 07:19 Ur Specific [place] 1.013 (1.003-1.030) 08/23/17 07:19 Urine Protein 100 mg/dl mg/dL (Negative) 08/23/17 07:19 Urine Glucose (UA) Neg mg/dL (Negative) 08/23/17 07:19 Urine Ketones Neg mg/dL (Negative) 08/23/17 07:19 Urine Blood Mod (Negative) 08/23/17 07:19 Urine Nitrite Neg (Negative) 08/23/17 07:19 Urine Bilirubin Neg (Negative) 08/23/17 07:19 Urine Urobilinogen < 2.0 mg/dL (<2.0) 08/23/17 07:19 Ur Leukocyte Esterase Mod (Negative) 08/23/17 07:19 Urine WBC (Auto) > 182.0 /HPF (0.0-6.0) H 08/23/17 07:19 Urine RBC (Auto) < 1.0 /HPF (0.0-6.0) 08/23/17 07:19 Urine Bacteria (Auto) 3+ /HPF (Negative) 08/23/17 07:19 Urine Creatinine < 4.2 mg/dL (0.1-20.0) 08/23/17 07:19 Urine Sodium 10 mmol/L 08/23/17 07:19 Random Vancomycin 13.1 ug/mL (0-40.0) 08/28/17 05:58 C. difficile Toxin A&B Negative (Negative) 08/25/17 09:09 Blood Type AB POSITIVE 08/23/17 10:22 Antibody Screen Negative 08/23/17 10:22
--- NOTE | 2017-08-28 17:51 | Progress Note ---
Assessment and Plan Assessment: 1) Sepsis: still tachycardia, leukocytosis with leukomoid reaction worse - 74--> 33 -->39K. Etiology most likely MRSA septicemia -CRP=17 2) MRSA septicemia: unclear source ? endocarditis. Sacral wound + MRSA 3) AMS: metabolic ? 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 8) Left hip and sacral pressure ulcers. 9) DVT 10) Large sacral decubitus stage IV ? abscess ? osteo. Wound cx + MRSA 11) UTI: UA c/w UTI. previous urine cx + Sho ? colonizer 12) AMS - worsening Plan: -re-check CBC -check CT head in view of worsening mentation -continue IV vancomcyin -obtain TTE - pending -contact isolation for MRSA -wound care consult Poor prognosis consider hospice Thank you for your consultation, will follow up with you. Winifred Guerrero MD Infectious Diseases Specialist [facility] M [phone] O [phone] Subjective Date of service: 08/28/17 Principal diagnosis: sepsis Interval history: Feels sick still c/o severe body aches, yelling, agitated, no fever. Microbiology: Blood cultures: 3/3 MRSA 2 of 4 bottles 3/6 ngtd 3/6 Wound MRSA Current Antimicrobials: vanco iv 3/3 Previous Antimicrobials: Zosyn Levaquin Cefepime flagyl Vanco po Objective - Exam Narrative Exam: General appearance: Alert agitated yelling in NAD Eyes: anicteric sclerae, moist conjunctivae; no lid-lag; PERRLA HENT: Atraumatic; oropharynx clear poor dentition Neck: Trachea midline; supple, no thyromegaly or lymphadenopathy Lungs: CTA CV: RRR, murmurs Abdomen: Soft, non-tender + colostomy bag Extremities: No peripheral edema or extremity lymphadenopathy Skin: +sacral decubitus stage IV and left hip DTI - not examied today Psych: confused Neuro: confused Lines: No CVL / PICC - Constitutional Vitals: Vital Signs Temp Pulse Resp BP Pulse Ox 97.2 F L 58 L 20 80/62 94 08/28/17 11:10 08/28/17 15:18 08/28/17 15:18 08/28/17 15:18 08/28/17 15:18 Temperature -Last 24 Hours Temperature 97.2 F Temperature 97.3 F Temperature 97.4 F Temperature 97.3 F - Labs CBC & Chem 7: 08/27/17 13:01 08/28/17 05:58 Labs: Abnormal lab results 08/28/17 08/28/17 Range/Units 05:58 16:52 Chloride 113.8 H (98-107) mmol/L Carbon Dioxide 13 L (22-30) mmol/L BUN 36 H (7-17) mg/dL Creatinine 1.8 H (0.7-1.2) mg/dL POC Glucose 112 H (70-105) Calcium 7.5 L (8.4-10.2) mg/dL Magnesium 2.40 H (1.7-2.3) mg/dL
--- NOTE | 2017-08-28 19:46 | Cat Scan Report ---
FINAL REPORT EXAM: CT HEAD/BRAIN WO CON HISTORY: ams TECHNIQUE: CT head without contrast PRIORS: Comparison is dated May 04, 2017 FINDINGS: No acute intra-axial or extra-axial hemorrhage is identified. There is no evidence of midline shift or mass effect. The ventricles and sulci are within normal limits. Gonsalez-white matter differentiation is intact. No acute parenchymal abnormalities seen. There are patchy and confluent hypodensities within the supratentorial white matter. Bony calvarium is grossly intact. Visualized portions of the mastoids and paranasal sinuses are unremarkable. Overall stable appearance from prior exam IMPRESSION: Chronic small vessel white matter ischemic change
[2017-08-28] MEDS: TYLENOL PO SCH (21:18)
[2017-08-29] MEDS: FLAGYL 500 MG/100 ML 500 MG/100 ML BAG IV SCH (04:00)
[2017-08-29 06:14] LABS: Calcium 7.8 mg/dL (8.4-10.2)
[2017-08-29] MEDS: PROAMATINE PO SCH (06:46)
[2017-08-29] MEDS: VANCOMYCIN PO PO SCH ×2 (06:46)
[2017-08-29] MEDS: TYLENOL PO SCH ×2 (06:47→16:14)
--- NOTE | 2017-08-29 08:27 | Progress Note ---
Assessment and Plan 1. Acute kidney injury: LUIS superimposed on CKD stage 3 in the setting of sepsis / shock. Recent increase in the creatinine is likely due to hypotension. Continue IV fluids. Monitor renal function. 2. Metabolic acidosis: Continue bicarbonate drip. Monitor acid-base status. 3. Hyponatremia: Improved. Monitor. 4. Hypotension: Continue IV fluids. 5. Electrolytes: Monitor. 6. MRSA bacteremia with sepsis: Followed by ID. Subjective Date of service: 08/29/17 Principal diagnosis: sepsis Interval history: Patient was seen and examined at the bedside. Objective - Vital Signs Vital signs: Vital Signs - 12hr 08/28/17 08/29/17 08/29/17 20:32 00:13 01:17 Temperature 98.6 F 98.2 F Pulse Rate 100 H 97 H 95 H Respiratory 18 Rate Blood Pressure 103/58 Blood Pressure 98/56 103/58 [Left] O2 Sat by Pulse 100 100 Oximetry 08/29/17 08/29/17 08/29/17 04:45 05:42 08:25 Temperature 98 F 98.1 F Pulse Rate 89 72 Respiratory 20 20 Rate Blood Pressure Blood Pressure 78/43 129/77 [Left] O2 Sat by Pulse 96 100 100 Oximetry - General Appearance General appearance: well-developed, appears stated age, cachectic, chronically ill, frail EENT: ATNC Neck: supple Respiratory: Present: Clear to Ascultation Cardiology: S1S2, no murmurs Gastrointestinal: no tenderness, other (ostomy noted) Integumentary: decubiti Neurologic: other (stuporous) Musculoskeletal: other (right UE edematous) - Lab 08/29/17 10:45 08/29/17 05:40 Most recent lab results Calcium 7.8 mg/dL (8.4-10.2) L 08/29/17 05:40 Phosphorus 4.10 mg/dL (2.5-4.5) D 08/29/17 05:40 Magnesium 2.30 mg/dL (1.7-2.3) 08/29/17 05:40 Urine Creatinine < 4.2 mg/dL (0.1-20.0) 08/23/17 07:19 Urine Sodium 10 mmol/L 08/23/17 07:19
--- NOTE | 2017-08-29 09:10 | Hem/Onc Progress Note ---
Assessment and Plan leucocytosis- possibly reactive continue to monitor Subjective Date of service: 08/29/17 Interval history: non verbal. not responding to verbal commands Objective - Exam Narrative Exam: not verbal - Constitutional Vitals: Last Vital Signs Temp 98.1 F 08/29/17 08:25 Pulse 72 08/29/17 08:25 Resp 20 08/29/17 08:25 BP 129/77 08/29/17 08:25 Pulse Ox 100 08/29/17 08:25 General appearance: cachectic Performance status: 4-completely disabled - Neck Neck: supple - Respiratory Respiratory: bilateral: diminished Extremities: No edema - Gastrointestinal General gastrointestinal: Present: other (colostomy) - Labs Lab Results: Laboratory Results - last 24 hr 08/28/17 08/28/17 08/28/17 10:49 16:52 20:21 Sodium Potassium Chloride Carbon Dioxide Anion Gap BUN Creatinine Estimated GFR BUN/Creatinine Ratio Glucose POC Glucose 95 112 H Calcium Phosphorus Magnesium Ammonia 58.0 08/28/17 08/29/17 08/29/17 21:30 04:12 05:40 Sodium 143 Potassium 4.9 Chloride 114.1 H Carbon Dioxide 14 L Anion Gap 20 BUN 40 H Creatinine 2.0 H Estimated GFR 30 BUN/Creatinine Ratio 20 Glucose 135 H POC Glucose 88 125 H Calcium 7.8 L Phosphorus 4.10 D Magnesium 2.30 Ammonia
[2017-08-29] MEDS: VITAMIN C PO SCH (10:09)
[2017-08-29] MEDS: ELIQUIS PO SCH (10:09)
[2017-08-29] MEDS: PEPCID PO SCH (10:09)
--- NOTE | 2017-08-29 10:12 | Progress Note ---
Assessment and Plan Assessment: 1) Sepsis: still tachycardia, leukocytosis with leukomoid reaction worse - 74--> 33 -->39K. Etiology most likely MRSA septicemia -CRP=17 2) MRSA septicemia: unclear source ? endocarditis. Sacral wound + MRSA 3) AMS: metabolic ? 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 8) Left hip and sacral pressure ulcers. 9) DVT 10) Large sacral decubitus stage IV ? abscess ? osteo. Wound cx + MRSA 11) UTI: UA c/w UTI. previous urine cx + Sho ? colonizer 12) AMS - worsening Plan: -pt is going to inpatient hospice and per hospitalist and case manager specialist they would accept her with IV antibiotics. -upon discharge will do vancomycin 1 g IV q 48 hours for 6 weeks for septicemia and osteomyelitis until 10/06/17 - renally dosed I am signing off Grim prognosis Thank you for your consultation, will follow up with you. Winifred Guerrero MD Infectious Diseases Specialist [facility] M [phone] O [phone] Subjective Date of service: 08/29/17 Principal diagnosis: sepsis Interval history: Feels sick very lethargic no fever. Microbiology: Blood cultures: 08/23 MRSA 2 of 4 bottles / ngtd / Wound MRSA Current Antimicrobials: vanco iv 3/ Previous Antimicrobials: Zosyn Levaquin Cefepime flagyl Vanco po Objective - Exam Narrative Exam: General appearance: lethargic in mild resp distress Eyes: anicteric sclerae, moist conjunctivae; no lid-lag; PERRLA HENT: Atraumatic; oropharynx clear poor dentition Neck: Trachea midline; supple, no thyromegaly or lymphadenopathy Lungs: CTA CV: RRR, murmurs Abdomen: Soft, non-tender + colostomy bag Extremities: No peripheral edema or extremity lymphadenopathy Skin: +sacral decubitus stage IV and left hip DTI - not examied today Psych: confused Neuro: confused Lines: No CVL / PICC - Constitutional Vitals: Vital Signs Temp Pulse Resp BP Pulse Ox 98.1 F 72 20 129/77 100 08/29/17 08:25 03/09/18 08:25 08/29/17 08:25 08/29/17 08:25 08/29/17 08:25 Temperature -Last 24 Hours Temperature 98.1 F Temperature 98 F Temperature 98.2 F Temperature 98.6 F Temperature 97.2 F - Labs CBC & Chem 7: 08/27/17 13:01 08/29/17 05:40 Labs: Abnormal lab results 08/28/17 08/29/17 08/29/17 Range/Units 16:52 04:12 05:40 Chloride 114.1 H (98-107) mmol/L Carbon Dioxide 14 L (22-30) mmol/L BUN 40 H (7-17) mg/dL Creatinine 2.0 H (0.7-1.2) mg/dL Glucose 135 H (65-100) mg/dL POC Glucose 112 H 125 H (70-105) Calcium 7.8 L (8.4-10.2) mg/dL
[2017-08-29 11:13] LABS: Hematocrit 26.1 % (30.3-42.9); Hemoglobin 8.3 gm/dl (10.1-14.3); Mean Corpuscular HGB Conc 32 % (30-34); Mean Corpuscular Hemoglobin 29 pg (28-32); Mean Corpuscular Volume 91 fl (79-97); Platelet Count 161 K/mm3 (140-440); Red Blood Count 2.85 M/mm3 (3.65-5.03); Red Cell Distribution Width 19.8 % (13.2-15.2)
[2017-08-29 12:51] LABS: Basophils % (Manual) 0 % (0.0-1.8); Total Cells Counted 100
[2017-08-29 12:52] LABS: RBC Morphology Normal
[2017-08-29] MEDS ORDERED: SODIUM BICARBONATE 100 MEQ in D5W 1,000 ML IV SCH (15:30)
[2017-08-29] MEDS ORDERED: PROAMATINE PO SCH (15:30)
--- NOTE | 2017-08-29 18:15 | Discharge Summary ---
Providers - Providers Date of Admission: 08/23/17 09:32 Attending physician: RAOUL SANDS MD 08/23/17 Consult to Case Management [CONS] Routine Services Needed at Discharge: Other Notified:: lead case manager 08/23/17 08:28 Consult to Physician [CONS] Routine Consulting Provider: WINIFRED ROLLINS Reason For Exam: Sepsis Place consult to:: Dr Ortiz Notified:: yes Was contact made?: Yes If yes, spoke with:: Dr Ortiz Time called:: 10:51 08/23/17 08:36 Consult to Physician [CONS] Routine Consulting Provider: PATSY STEVENS Reason For Exam: Marked leukocytosis Place consult to:: Dr Stevens Notified:: a service Phone number called:: [phone] Was contact made?: Yes If yes, spoke with:: ambreen Time called:: 10:53 08/23/17 08:38 Consult to Physician [CONS] Routine Consulting Provider: KARENA URRUTIA Reason For Exam: Acute kidney injury on CKD, hyponatremia Place consult to:: felix Notified:: a service Phone number called:: [phone] Was contact made?: Yes If yes, spoke with:: vu Time called:: 11:04 08/23/17 18:05 Consult to Wound/ET Nurse [CONS] Routine Reason For Exam: wound eval 08/25/17 11:19 Consult to Physician [CONS] Routine Consulting Provider: HILARIA ALVAREZ Reason For Exam: sepsis leukomoid reaction eval ostomy wound ? absc Place consult to:: Office Notified:: yes Phone number called:: [phone] Was contact made?: Yes If yes, spoke with:: Ally Time called:: 11:36 08/25/17 11:21 Consult to Wound/ET Nurse [CONS] Routine Reason For Exam: wound eval 08/25/17 14:26 Consult to Physician [CONS] Routine Consulting Provider: MAGY ZAFAR Reason For Exam: possible colitis Place consult to:: Office Notified:: yes Phone number called:: [phone] Was contact made?: Yes 08/25/17 15:40 Midline [Consult to PICC Line RN] [CONS] Urgent Reason For Exam: difficult peripheral iv stick. Type Line:: Midline 08/26/17 13:51 Consult to Wound/ET Nurse [CONS] Routine Reason For Exam: wound eval 08/28/17 12:14 Consult to Case Management [CONS] Routine Services Needed at Discharge: Other Notified:: harpreet Was contact made?: Yes If yes, spoke with:: harpreet Time called:: 12:15 Comment:: Hospice Additional Physician Instructions: Hospice EVAL AND TREAT 08/29/17 10:15 Consult to Case Management [CONS] Stat Services Needed at Discharge: Other Notified:: net web application developer Additional Physician Instructions: [facility] ([facility] Winifred Ortiz MD M [phone] O [phone] F [phone] OUTPATIENT PARENTERAL ANTIBIOTIC THERAPY ORDERS Diagnoses:MRSA osteomyelitis and septicemia Antimicrobial administration: vancomycin 1 g IV q 48 hours for 6 weeks until 10/06/17 Lines: Lab monitoring: CBC, CMP, CRP, and vancomycin trough once a week preferly on Friday morning. Please fax results to [phone] and call [phone] for critical lab results. Winifred Ortiz Date: 08/29/17 Primary care physician: MOTEL CLERK Hospitalization Condition: Stable Hospital course: Patient is 62 yo sent in from [facility]. She has history of dvt, CHF, COPD on home oxygen, Chronic kidney disease, follows with Nephrology. She was sent in for altered mental status, somnolence. She has not been eating or drinking much and is very weak, and has been very sleepy past few days. She was lethargic , found to have LUIS and sepsis. She was found to have MRSA septicemia. She received IV fluids, she did suffer from hypotension which improved with IV hydration. Her kidney function improved and stabilized. She was seen by nephrology and infectious disease office was in hospital and continued on antibiotics. She was also seen by general surgeon who recommended GI consult for EGD and colonoscopy. Patient went on to have EGD and colonoscopy, EGD showed gastric ulcers and gastritis, colonoscopy of how limited colonoscopy status post colostomy did not show any acute findings. Despite aggressive treatment, patient continued to deteriorate, her vital signs and her labs were improving but her functional status was worsening. She was noted to have agonal breathing. Therefore family meeting was held with her family present and after explaining her condition, they elected to place her in inpatient hospice. The patient was subsequently discharged to inpatient hospice facility Diagnoses Sepsis MRSA septicemia Gram-positive sepsis Septic shock Acute kidney injury due to ATN Toxic metabolic encephalopathy. Colitis was ruled out Urinary tract infection Stage III large sacral decubitus ulcer COPD Chronic hypoxic respiratory failure Chronic CHF Chronic kidney disease Leukocytosis (patient was planned for leukemia workup, but never received a workup that she was never well enough to do it ) Complete immobility due to frailty Metabolic acidosis due to sepsis Hyponatremia Dehydration Disposition: [facility] ([facility]) Time spent for discharge: 33 minutes Core Measure Documentation - Palliative Care Palliative Care/ Comfort Measures: Hospice Care - Core Measures Any of the following diagnoses?: none Exam - Physical Exam Narrative exam: Gen appearance: Agonal breathing, lying in bed, cachectic HEENT:Normocephalic,atraumatic Lungs: Clear to auscultation bilaterally, no crackles , no wheeze Heart: S1 and S2 regular, no murmurs, rubs or gallop Abdomen: soft, non tender, non distended, normal bowel sounds,colostomy Ext: No edema, no clubbing, no cyanosis Neuro: Sighing with agonal breathing, unable to follow commands Currently nonverbal - Constitutional Vitals: Temp Pulse Resp BP Pulse Ox 98.1 F 74 22 109/88 90 08/29/17 12:01 08/29/17 12:01 08/29/17 12:01 08/29/17 12:01 08/29/17 12:01 Plan Follow up with: PRIMARY CAREMD [Primary Care Provider] - 3-5 Days Prescriptions: Vancomycin Vial 1 gm IV Q48H #23 vial
[2017-08-29 21:39] VITALS: BP 83/39
== END 2017-08-29 22:15 | disposition hospice, inpatient (51) | DRG 871 ==
LOC: ED 04:32 → 4A 09:32
PROVIDERS: ADMIT Internal Medicine; ATTEND Internal Medicine
PROC: 4A033R1 Measurement of Arterial Saturation, Peripheral, Percutaneous Approach (ICD-10-PCS; principal; 2017-08-25)
PROC: 0DJD8ZZ Inspection of Lower Intestinal Tract, Via Natural or Artificial Opening Endoscopic (ICD-10-PCS; 2017-08-27)
PROC: 0DJ08ZZ Inspection of Upper Intestinal Tract, Via Natural or Artificial Opening Endoscopic (ICD-10-PCS; 2017-08-27)
DX: A41.02 Sepsis due to Methicillin resistant Staphylococcus aureus (principal); L89.154 Pressure ulcer of sacral region, stage 4; R65.21 Severe sepsis with septic shock; K22.6 Gastro-esophageal laceration-hemorrhage syndrome; N17.0 Acute kidney failure with tubular necrosis; R53.2 Functional quadriplegia; E87.1 Hypo-osmolality and hyponatremia; N39.0 Urinary tract infection, site not specified; I13.0 Hypertensive heart and chronic kidney disease with heart failure and stage 1 through stage 4 chronic kidney disease, or unspecified chronic kidney disease; I50.9 Heart failure, unspecified; N18.3 Chronic kidney disease, stage 3 (moderate); K29.70 Gastritis, unspecified, without bleeding; E78.5 Hyperlipidemia, unspecified; K28.9 Gastrojejunal ulcer, unspecified as acute or chronic, without hemorrhage or perforation; J44.9 Chronic obstructive pulmonary disease, unspecified; K44.9 Diaphragmatic hernia without obstruction or gangrene; J45.909 Unspecified asthma, uncomplicated; Z86.718 Personal history of other venous thrombosis and embolism; Z79.01 Long term (current) use of anticoagulants; Z90.49 Acquired absence of other specified parts of digestive tract; Z82.49 Family history of ischemic heart disease and other diseases of the circulatory system; Z79.899 Other long term (current) drug therapy; Z93.3 Colostomy status
CPT/HCPCS: 36415; 36600; 70450; 71045; 71250; 74176; 76770; 80048; 80053; 80061; 80202; 81001; 82140; 82550; 82553; 82570; 82803; 82962; 83690; 83735; 83880; 84100; 84134; 84300; 84439; 84443; 84484; 85007; 85025; 85027; 85610; 85730; 86140; 86403; 86850; 86900; 86901; 87040; 87076; 87086; 87116; 87186; 87324; 93005; 93010; 93308; 93321; 93325; 94760; 96361; 96365; J0610; J0692; J1956; J2405; J2543; J2704; J3370; J3475; J3480; J7030; J7040; J7042; J7050; J7070